=== PATIENT | male | born 1960 | race Caucasian/White ===

== ENCOUNTER → 2016-12-26 | Outpatient (CLI) | payer MEDICARE, MEDICAID ==
[~2016-12-26] MED LIST: ADV500-14 IH; ALBU0.632 IH; ALBU0.8322 IH; ALBU17AE3 IH; ALBU8.5H2 IH; ASPI-587 PO; ASPI-875 PO; ATOR80TA PO; BUDE10.2 IH; BUTA1TAB44 PO; CEFU500T5 PO; CLPD75T PO; DOXY-13 PO; FLUT1DIS26 IH; HCT25T PO; IBP800T PO; METO100T6 PO; METO25TA PO; OMEG1CAP51 PO; OMEP20CA12 PO; OMEP20TA2 PO; PANT40TA2 PO; PHEN100C11 PO; PHEN200C3 PO; PHN100C PO; PRD20T PO; PRV20T PO; RT-ALBUTEROL SULF 2.5 MG/3 ML PRE-MIX VIAL INH ONE; TIOT18CA IH; TOPI50CA5 PO; VARE1TAB17 PO
--- NOTE | 2016-12-26 16:53 | Diagnostic Imaging Report ---
INDICATION: Dyspnea, tobacco dependence. COMPARISON STUDY: Chest from 2014. FINDINGS: Frontal and lateral views of the chest demonstrate the lungs to be clear. The heart, mediastinum, pulmonary vascularity, and visualized bony thorax are normal. IMPRESSION: Negative chest. Dictated by: Dictated on workstation # [id number]
== END ==
LOC: RT 15:18
PROVIDERS: ATTEND Nurse Practitioner Family
DX: J44.9 Chronic obstructive pulmonary disease, unspecified (principal); R06.00 Dyspnea, unspecified; F17.200 Nicotine dependence, unspecified, uncomplicated
CPT/HCPCS: 71020; 94060; 94640; 94726; 94729

== ENCOUNTER 2017-03-31 12:08 | Emergency (ER) | payer MEDICARE, MEDICAID ==
[~2017-03-31] VITALS: Ht 182.9 cm; Wt 127.0 kg
[~2017-03-31 12:08] MED LIST changes: -RT-ALBUTEROL SULF 2.5 MG/3 ML PRE-MIX VIAL INH ONE
--- NOTE | 2017-03-31 12:28 | ED Lower Extremity ---
General Chief Complaint: Lower Extremity Stated Complaint: R KNEE PAIN Source: patient Exam Limitations: no limitations History of Present Illness Time seen by provider: 12:25 Initial Comments To ER with right knee pain for the past 6 months worse today. He saw [facility] on Monday and received a steroid injection into the right knee. He states that this morning he was feeling much better and was in [place] able to walk around. Suddenly, his knee felt as if he was going to give out on him and caused him intense pain. He denies any appearance of swelling or sensation of swelling. No fevers or chills and no warmth to the knee. Pain is to the lateral aspect of the knee Onset: just prior to arrival Severity: moderate Pain/Injury Location: right knee Modifying Factors: Worse With Movement Allergies and Home Medications Allergies Coded Allergies: diclofenac (Verified Allergy, Unknown, SWELLING, 10/14/15) Home Medications Aspirin 81 Mg Tablet.dr, 81 MG PO DAILY, (Reported) Atorvastatin Calcium 80 Mg Tablet, 80 MG PO HS, (Reported) Budesonide/Formoterol Fumarate 10.2 Gm Hfa.aer.ad, 2 PUFF IH BID, (Reported) Hydrochlorothiazide 25 Mg Tab, 25 MG PO DAILY, (Reported) Metoprolol Succinate 100 Mg Tab.er.24h, 100 MG PO DAILY, (Reported) Pantoprazole Sodium 40 Mg Tablet.dr, 40 MG PO DAILY, (Reported) Phenytoin Sodium Extended 100 Mg Capsule, 200 MG PO BID, (Reported) TAKE 2 (100MG) TABS Tiotropium Lynd 1 Inh Aerp, 1 CAP IH DAILY @1200, (Reported) Topiramate 50 Mg Cap.spr.24, 50 MG PO BID, (Reported) Constitutional: see HPI EENTM: see HPI Respiratory: no symptoms reported Cardiovascular: no symptoms reported Genitourinary: no symptoms reported Musculoskeletal: see HPI Skin: no symptoms reported Psychiatric/Neurological: No Symptoms Reported Past Gmfmvzm-Znackg-Czupen Hx Patient Social History Recent Foreign Travel: No Contact w/Someone Who Travel: No Immunizations Up To Date Tetanus Booster (TDap): Less than 5yrs Date of Pneumonia Vaccine: Jul 30, 2015 Date of Influenza Vaccine: Jul 30, 2015 Surgeries HX Surgeries: Yes (Carpal Tunnel bilat, Left foot toe surgery, LOOP RECORDER PLACED, ) Respiratory Hx Respiratory Disorders: Yes (COPD, SLEEP APNEA, BIPAP) Respiratory Disorders: Sleep Apnea, COPD Cardiovascular Hx Cardiac Disorders: Yes Neurological Hx Neurological Disorders: Yes (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) Reproductive System Hx Reproductive Disorders: No Genitourinary Hx Genitourinary Disorders: No Gastrointestinal Hx Gastrointestinal Disorders: No Musculoskeletal Hx Musculoskeletal Disorders: Yes Musculoskeletal Disorders: Chronic Back Pain Endocrine Hx Endocrine Disorders: No HEENT HX ENT Disorders: No (begining of cataracts, ) Cancer Hx Cancer: No Psychosocial Hx Psychiatric Problems: No Integumentary HX Skin/Integumentary Disorder: No Blood Transfusions Hx Blood Disorders: No Family Medical History Significant Family History: No Pertinent Family Hx Family Medial History: Cardiovascular disease Physical Exam Vital Signs Vital Sign - Last 12Hours 03/31/17 12:20 Temp 97.9 Pulse 68 Resp 16 B/P (MAP) 109/75 Pulse Ox 97 Capillary Refill : Less Than 3 Seconds General Appearance: WD/WN, no apparent distress HEENT: PERRL/EOMI, normal ENT inspection Neck: non-tender, full range of motion Respiratory: no respiratory distress Gastrointestinal: normal bowel sounds, non tender, soft Hips: bilateral hip non-tender, bilateral hip normal inspection, bilateral hip normal range of motion Legs: bilateral leg non-tender, bilateral leg normal inspection, bilateral leg normal range of motion Knees: right knee pain, right knee other (there is no palpable effusion, no ecchymosis or erythema or warmth to the knee.) Ankles: bilateral ankle non-tender, bilateral ankle normal inspection, bilateral ankle normal range of motion Feet: bilateral foot non-tender, bilateral foot normal inspection, bilateral foot normal range of motion Neurologic/Psychiatric: alert, normal mood/affect, oriented x 3 Skin: normal color, warm/dry Progress/Results/Core Measures Results/Orders My Orders Orders - ROMA STRICKLAND APRN Knee, Right, 3 Views (03/31/17 12:22) Hydrocodone/Apap 5/325 Tablet (Lortab 5 (03/31/17 12:30) Immobilizer Knee St 24 In (03/31/17 12:42) Vital Signs/I&O Vital Sign - Last 12Hours 03/31/17 12:20 Temp 97.9 Pulse 68 Resp 16 B/P (MAP) 109/75 Pulse Ox 97 Progress Note : Progress Note 1227-despite his recent knee injection, his description of sudden onset pain today while walking and feeling of needing going to given the absence of fevers chills or swelling does not support an infectious cause of his knee pain Diagnostic Imaging Comments NAME: [facility] REC#: [id number] PT STATUS: REG ER : 1960 PHYSICIAN: ROMA STRICKLAND APRN ADMIT DATE: 03/31/17/ER Draft Date of Exam:03/31/17 KNEE, RIGHT, 3 VIEWS EXAMINATION: 3 views of the right knee. INDICATION: Right knee pain. Findings: No fracture, dislocation or radiopaque foreign body. There is fullness in the suprapatellar pouch likely related to an effusion. There is sparing of the upper tendons near the insertion of the quadriceps tendon. No significant osteophyte formation or joint narrowing. IMPRESSION: Question of suprapatellar effusion. No fracture seen. Dictated on workstation # [id number] Dict: 03/31/17 1235 Trans: 03/31/17 1246 [facility] [id number] Interpreted by: BRIDGET VERNON MD Electronically signed by: Departure Impression Impression: Primary Impression: Arthritis of knee Disposition: 01 HOME, SELF-CARE Condition: Stable Departure-Patient Inst. Decision time for Depature: 12:49 Referrals: BRANDEN BORJA DO (PCP) Primary Care Physician RENETTA CARDOZA (Family) Primary Care Physician Patient Instructions: Chronic Knee Pain Add. Discharge Instructions: 1. Return to ER for any concerns such as increased pain, swelling, redness, or fevers. 2. Follow up with one of the orthopedic surgeons 3. Wear the brace when youre up moving around All discharge instructions reviewed with patient and/or family. Voiced understanding. Scripts Hydrocodone/Acetaminophen ([place] 5-325 Tablet) 1 Each Tablet 1 EACH PO Q4H Y for PAIN-MODERATE, #10 TAB Prov: ROMA STRICKLAND APRN 03/31/17 ROMA STRICKLAND APRN Mar 31, 2017 12:28
--- NOTE | 2017-03-31 12:46 | Diagnostic Imaging Report ---
EXAMINATION: 3 views of the right knee. INDICATION: Right knee pain. Findings: No fracture, dislocation or radiopaque foreign body. There is fullness in the suprapatellar pouch likely related to an effusion. There is sparing of the upper tendons near the insertion of the quadriceps tendon. No significant osteophyte formation or joint narrowing. IMPRESSION: Question of suprapatellar effusion. No fracture seen. Dictated by: Dictated on workstation # [id number]
[2017-03-31] MEDS ORDERED: HYDR-757 PO (12:52)
[2017-03-31 12:53] VITALS: BP 109/75
[2017-03-31] MEDS: HYDROcodone/APAP 5 MG/325 MG (LORTAB) TAB PO ONE (12:54)
== END 2017-03-31 12:53 | disposition home or self-care (01) ==
LOC: EDUNIT# 12:08 → ER 12:10
DX: M17.11 Unilateral primary osteoarthritis, right knee (principal); J44.9 Chronic obstructive pulmonary disease, unspecified; Z79.82 Long term (current) use of aspirin; Z79.899 Other long term (current) drug therapy
CPT/HCPCS: 73562; 99285

== ENCOUNTER → 2017-04-10 | Outpatient (CLI) | payer MEDICARE, MEDICAID ==
[~2017-04-10] MED LIST changes: +HYDR-757 PO
--- NOTE | 2017-04-13 09:22 | Diagnostic Imaging Report ---
PROCEDURE: MRI right joint lower extremity without contrast. TECHNIQUE: Multiplanar, multisequence non contrast-enhanced MRI of the right lower extremity was accomplished. INDICATION: Right knee pain. FINDINGS: There is a tiny suprapatellar effusion. The extensor mechanism is intact. The ACL and the PCL are intact. There is an oblique tear involving the posterior horn of the medial meniscus extending to the posterior root. The body and anterior horn of the medial meniscus appears intact. The lateral meniscus demonstrates an oblique tear in the body segment extending to the undersurface of the meniscus. The MCL and the lateral collateral ligament complex appear intact. No significant bone marrow signal abnormality. The articular cartilage demonstrates no focal defects or significant thinning. IMPRESSION: 1. Tears in the posterior horn and posterior root of the medial meniscus. 2. Nondisplaced focal oblique tear in the body of the lateral meniscus. Dictated by: Dictated on workstation # [id number]
== END ==
LOC: RAD 10:40
PROVIDERS: ATTEND Nurse Practitioner Community Health
DX: M25.561 Pain in right knee (principal)
CPT/HCPCS: 73721

== ENCOUNTER → 2017-05-25 | Outpatient (CLI) | payer MEDICARE, MEDICAID ==
[~2017-05-25] MED LIST changes: +CATHETER FLUSH 10 ML SYR IV PRN; +REGADENOSON 0.4 MG/5 ML SYR (LEXISCAN) IV ONE
[2017-05-25 09:14] VITALS: BP 153/73
== END ==
LOC: CARD 07:18
PROVIDERS: ATTEND Internal Medicine Cardiovascular Disease
DX: I25.10 Atherosclerotic heart disease of native coronary artery without angina pectoris (principal); I65.23 Occlusion and stenosis of bilateral carotid arteries; E78.5 Hyperlipidemia, unspecified; R06.02 Shortness of breath
CPT/HCPCS: 78452; 93017

== ENCOUNTER 2017-06-15 09:12 | Outpatient (CLI) | payer MEDICARE, MEDICAID ==
[~2017-06-15] VITALS: Ht 182.9 cm; Wt 128.5 kg
[~2017-06-15 09:12] MED LIST changes: -CATHETER FLUSH 10 ML SYR IV PRN; -REGADENOSON 0.4 MG/5 ML SYR (LEXISCAN) IV ONE
[2017-06-15] MEDS ORDERED: OMEP20CA12 PO (09:27)
[2017-06-15] MEDS ORDERED: RT-ALBUINH IH (09:27)
[2017-06-15] MEDS ORDERED: NAPR500T PO (09:27)
[2017-06-15] MEDS ORDERED: UMEC62.5 IH (09:27)
[2017-06-15 09:36] VITALS: BP 149/73
== END 2017-06-15 10:14 | disposition home or self-care (01) ==
LOC: PREOP 09:12
PROVIDERS: ATTEND Orthopaedic Surgery
DX: Z01.818 Encounter for other preprocedural examination (principal); S83.281A Other tear of lateral meniscus, current injury, right knee, initial encounter; S83.241A Other tear of medial meniscus, current injury, right knee, initial encounter; X58.XXXA Exposure to other specified factors, initial encounter; Y99.8 Other external cause status
CPT/HCPCS: 87081

== ENCOUNTER 2017-06-21 06:05 | Day surgery (SDC) | payer MEDICARE, MEDICAID ==
--- NOTE | 2017-06-12 17:10 | HISTORY AND PHYSICAL ---
DATE OF SERVICE: REASON FOR ADMISSION: Outpatient surgery on 06/21/2017 for right knee arthroscopy. HISTORY OF PRESENT ILLNESS: The patient is a 56-year-old gentleman with complaints of progressive worsening right knee pain and functional impairment. He underwent an MRI, which revealed medial and lateral meniscal tears. He has undergone treatment with injections without relief. He reports pain medially and laterally in his knee as well as posteriorly. He denies any specific injuries, but has been very active throughout his life. Due to functional impairment and failure to improve with conservative measures, the patient has elected to proceed with surgical intervention. REVIEW OF SYSTEMS: No chest pain. No shortness of breath. No dysuria. PAST MEDICAL HISTORY: Coronary artery disease, hyperlipidemia, sleep apnea, COPD, edema, hypertension, seizures, and tobacco use. PAST SURGICAL HISTORY: Cardiac catheterization, implantation of patient's activated cardiac vent recorder, recorder removal, carpal tunnel release, left foot second toe. FAMILY HISTORY: Hypertension, cardiovascular disease, and diabetes. PRIMARY CARE PROVIDER: MEDICATIONS: Aspirin, Proair, Spiriva, Toprol, hydrochlorothiazide, omeprazole, phenytoin, topiramate, doxycycline, umeclidinium, Naprosyn, Protonix, and Viagra. ALLERGIES: DICLOFENAC. SOCIAL HISTORY: The patient smokes one pack a day and denies alcohol use. PHYSICAL EXAMINATION: GENERAL: The patient is a well developed, well nourished, in no acute distress. HEENT: Normocephalic, atraumatic. Pupils are equal, round, and reactive to light. Oropharynx is clear. NECK: Supple. No lymphadenopathy. LUNGS: Clear to auscultation bilaterally. HEART: Regular rate and rhythm. ABDOMEN: Soft, nontender, and nondistended. EXTREMITIES: The right knee demonstrates tenderness along his medial and lateral joint line. He has pain medially and laterally with Mare's maneuver. No varus or valgus laxity. Negative anterior and posterior drawer. He has a moderate effusion. Range of motion is 0/0/135. The patient ambulates with an antalgic gait. IMPRESSION: Right knee medial and lateral meniscal tears. PLAN: Right knee arthroscopy with partial meniscectomy. The risks, benefits, options, ramifications, and recovery were discussed at length with the patient. He understands and wishes to proceed. Job ID: [id number] DocumentID: [id number] Dictated Date: 06/12/2017 15:09:10 Torch Operator Date: 06/12/2017 17:00:38 Dictated By: LEYLA TORRES MD
[~2017-06-21] VITALS: Ht 182.9 cm; Wt 128.5 kg
[~2017-06-21 06:05] MED LIST changes: +NAPR500T PO; +RT-ALBUINH IH; +UMEC62.5 IH
--- OUTSIDE RECORDS SUMMARY | 2017-06-21 06:14 | XMS REPORT ---
Author Author RENETTA CARDOZA Organization [facility] Address [address] [place] [address] Care Team Providers Care Log Rafter Name Role Phone RENETTA CARDOZA Unavailable PROBLEMS Type Condition ICD9-CM Code AFM55-ZZ Code Onset Dates Condition Status SNOMED Code Problem Tobacco abuse Z72.0 Active 90944224 Problem Morbid obesity due to excess calories E66.01 Active 456572728 Problem Palpitations R00.2 Active 89355080 Problem LAURY (obstructive sleep apnea) G47.33 Active 77851651 Problem Hypertension, benign I10 Active 78253401 Problem COPD exacerbation J44.1 Active 135756560 Problem Non morbid obesity due to excess calories E66.09 Active 368365583 Problem Coronary artery disease involving [place] heart, angina presence unspecified, unspecified vessel or lesion type I25.10 Active 77499326 Problem Edema, due to unspecified malnutrition type, unspecified type R60.9 Active 871349996 Problem Other chronic pain G89.29 Active 55054704 Problem Chronic obstructive pulmonary disease, unspecified COPD type J44.9 Active 68192134 ALLERGIES Unknown Allergies SOCIAL HISTORY No smoking Hx information available PLAN OF CARE VITAL SIGNS MEDICATIONS Medication Instructions Dosage Frequency Start Date End Date Duration Status Breo Ellipta 200-25 MCG/INH Inhalation Once a day 1 puff 24h Aug, Active RESULTS No Results PROCEDURES Procedure Date Ordered Related Diagnosis Body Site FLUARIX QUAD P-FREE 3 AND UP .50 2016 Sep 26, 2016 SINGLE IMMUNIZATION ADMIN Sep 26, 2016 IMMUNIZATIONS Vaccine Route Administration Date Status FLUARIX QUAD P-FREE 3 AND UP .50 2015 IM Intramuscular Sep 26, 2016 Administered
[2017-06-21] MEDS ORDERED: LACTATED RINGERS 1,000 ML IV PRN (06:28)
[2017-06-21] MEDS ORDERED: SEVOFLURANE (ULTANE) 15 ML INHAL SOLN ONE ×3 (06:31→07:45)
[2017-06-21] MEDS ORDERED: DEXAMETHASONE 10 MG/ML (DECADRON) 1 ML VIAL ONE (06:31)
[2017-06-21] MEDS ORDERED: LIDOCAINE PF 2% 5 ML (XYLOCAINE) VIAL ONE (06:31)
[2017-06-21] MEDS ORDERED: MIDAZOLAM 2 MG/2 ML (VERSED) VIAL ONE (06:31)
[2017-06-21] MEDS ORDERED: ONDANSETRON 4 MG/2 ML (SDV) Z0FRAN ONE (06:31)
[2017-06-21] MEDS ORDERED: proPOfol 200 MG/20 ML (DIPRIVAN) VIAL IV ONE (06:31)
[2017-06-21] MEDS ORDERED: fentaNYL INJECTION 100 MCG/2 ML AMP ONE (06:31)
[2017-06-21] MEDS ORDERED: NS (IVPB) 50 ML ONE (06:33)
[2017-06-21] MEDS ORDERED: ceFAZolin 1,000 MG (ANCEF) VIAL ONE (06:33)
[2017-06-21 06:54] VITALS: BP 165/85
[2017-06-21] MEDS ORDERED: morphine PF (DURAMORPH) 10 MG/10 ML AMP ONE (07:05)
[2017-06-21] MEDS ORDERED: BUPIVACAINE 0.25% 30 ML (SENSORCAINE) VIAL ONE (07:06)
[2017-06-21] MEDS ORDERED: ceFAZolin 1 GM/NS 50 ML IVPB IV ONE ×2 (07:15)
[2017-06-21] MEDS ORDERED: HYDROcodone/APAP 7.5 MG/325 MG (LORTAB, LORCET PLUS) TABLET PO PRN (07:30)
--- NOTE | 2017-06-21 07:31 | Progress Note-Pre Operative ---
Pre-Operative Progress Note H&P Reviewed The H&P was reviewed, patient examined and no changes noted. 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
--- NOTE | 2017-06-21 07:32 | Progress Note-Post Operative ---
Post-Operative Progess Note Surgeon (s)/Fabric Machine Operator (s) Surgeon LEYLA TORRES MD Fabric Machine Operator: Ovi Mcfarlane Pre-Operative Diagnosis right knee medial and lateral meniscus tears and chondromalacia Post-Operative Diagnosis right knee medial and lateral meniscus tears and chondromalacia of the patella, trochea and lateral femoral condyle Procedure & Operative Findings Date of Procedure 06/21/17 Procedure Performed/Findings right knee arthroscopic partial medial and lateral meniscectomies and chondroplasty of the patella, trochlea and lateral femoral condyle Anesthesia Type GETA Estimated Blood Loss Estimated blood loss (mL): minimal Specimens/Packing Specimens Removed none Packing: none LEYLA TORRES MD Jun 21, 2017 07:32
[2017-06-21] MEDS ORDERED: morphine INJ 10 MG/ML 1ML (SYR OR VIAL) IVP PRN (08:30)
[2017-06-21] MEDS ORDERED: ONDANSETRON 4 MG/2 ML (SDV) Z0FRAN IVP PRN (08:30)
[2017-06-21 09:05] VITALS: BP 129/75
[2017-06-21 09:35] VITALS: BP 125/76
[2017-06-21] MEDS ORDERED: HYDR-3816 PO (09:37)
[2017-06-21 10:05] VITALS: BP 141/80
--- NOTE | 2017-06-21 10:10 | Physical Therapy Ortho Eval ---
PT Orthopedic Evaluation Type of Surgery Knee Scope right side WBAT Prior Level of Function Current Living Status: Significant Other Locomotion (Upon Admit): Independent Established Durable Medical Eq: Crutches Subjective Subjective Pt was lying in bed prior to tx. Pt reports no pain and highly motivated. Pt was lying in bed with call light, all needs in reach, family in room post tx. Entry Into Home: Stairs With Railing Steps Into Home: 3 Steps Accessories: Railing Present Motor Control Motor Control: Motor Control WNL ROM ROM: WFL, except focal deficit Pt right knee extension 5 degrees from full knee extension, flexion 100 degrees. Strength NT due to recent surgery Transfer Transfers (B, C, W/C) (FIM): 5 Gait Gait Assistive Device: None Weight Bearing Restriction: Weight Bearing/Tolerated Location Restriction: R LE Gait (FIM): 5 Distance (FIM): 3=150 ft Distance: 150' Gait Level of Assist: 5 Summary/Comments Pt ambulates 150' with SBA for safety. Treatment Rendered Treatment: Therapeutic Exercises, Gait Train, Step Train, Reviewed Precautions , Use of Ice Exercise Instruction: Quad Sets, Heel Slides, Ankle Pumps PT reviewed home exercise program with ankle pumps, quad sets, and ankle pumps to be completed 20x, multiple times a day. Pt ambulates with no assistive device and completes step with SBA. Assessment/Goals Goal Time Frame: 1 Visit Understands HEP: Yes Safe Ambulation: Yes Plan Treatment Plan: Discharge PT/Family Agrees to Plan: Yes Time Time In: 945 Time Out: 1000 Total Billed Treatment Time: 15 Billed Treatment Time 1 visit EVL 15 min Yes PT/OT Therapy GCodes Therapy Functional Limitation: Physical Therapy Test(s)/Tool used to determine: Level of Assistance Scale Functional Limitation-Current Charge Code: MOBCUR Modifier: CI Functional Limitation-Goal Charge Code: MOBGOAL Modifier: CI Functional Limitation-D/C Charge Codes: MOBDC Modifier: CI LORENA MERLOS PT Jun 21, 2017 10:10
--- NOTE | 2017-06-21 15:13 | OPERATIVE REPORT ---
DATE OF SERVICE: 06/21/2017 PREOPERATIVE DIAGNOSES: 1. Right knee medial meniscal tear. 2. Right knee lateral meniscal tear. 3. Right knee chondromalacia of the patella. POSTOPERATIVE DIAGNOSES: 1. Right knee medial meniscal tear. 2. Right knee lateral meniscal tear. 3. Right knee chondromalacia of the patella. 4. Right knee chondromalacia of the trochlea. 5. Right knee chondromalacia of the lateral femoral condyle. PROCEDURES: 1. Right knee arthroscopic partial medial meniscectomy. 2. Right knee arthroscopic partial lateral meniscectomy. 3. Right knee arthroscopic chondroplasty of the patella. 4. Right knee arthroscopic chondroplasty of the trochlea. 5. Right knee arthroscopic chondroplasty of the lateral femoral condyle. SURGEON: Flo Torres MD. TAX ECONOMIST: Ovi Mcfarlane, who assisted throughout the procedure and closed the incisions. ANESTHESIA: General endotracheal by Rocael Miranda CRNA. TOURNIQUET TIME: Not applicable. ESTIMATED BLOOD LOSS: Minimal. DRAINS: None. COMPLICATIONS: None. POSTOPERATIVE PLAN: Routine arthroscopy protocol. The patient was transported to the recovery room awake and in stable condition. STATEMENT OF ORAL CONSENT: The patient is a 56-year-old active gentleman with complaints of right medial and lateral knee pain. He complained of pain with cutting and pivoting activities as well as activities of daily living. He had pain medially and laterally with Mare's and due to functional impairment and failure to improve with conservative measures, the patient elected to proceed with surgical intervention. Examination under anesthesia revealed range of motion of 0/2/135. Negative Stephen. Negative anterior and posterior drawer. No varus or valgus laxity and negative pivot shift. ARTHROSCOPIC FINDINGS: The patella demonstrated grade 2 chondral flaps inferiorly in an 8 x 8 area. The trochlea demonstrated grade 2 chondral flap superiorly in a 10 x 10 area. The medial and lateral gutters were clear. There were multiple small loose cartilaginous bodies throughout the medial compartment. There was a tear at the 12 o'clock position over the posterior horn of the medial meniscus involving approximately 20% of the posterior horn. There was chondral softening throughout the medial compartment with no unstable chondral flaps. ACL and PCL were intact. The lateral compartment demonstrated a tear of the posterior horn of the meniscus involving approximately one-third of the posterior horn. In addition, there were grade 2 chondral flaps anterior centrally on the femoral condyle in a 10 x 10 area. PROCEDURE IN DETAIL: After risks and benefits of procedure were discussed and questions were answered, an informed consent was signed and placed on the chart. The operative site was confirmed in the preoperative holding area and initiated by the surgeon. The patient was then transported to the operating room. After adequate levels of general endotracheal anesthetic were obtained, a timeout was called confirming the operative site. An examination under anesthesia was performed with the above findings noted. The right lower extremity was then prepped and draped in the usual sterile fashion. The knee joint was injected with 60 mL of fluid and a standard inferolateral portal was placed. Under direct visualization anteromedial portal was created. The menisci and cruciates were carefully probed with the above findings noted. The unstable chondral flaps on the patella and trochlea were debrided with a shaver back to a stable edge. The scope was then redirected into the lateral compartment where the unstable chondral flaps on lateral femoral condyle were debrided with a shaver back to a stable edge, and lateral meniscus was debrided with a biter and shaver, removing approximately one-third of the posterior horn. This was carefully probed with no further tearing or instability noted. The scope was then redirected into the medial compartment where the unstable posterior horn on the medial meniscus was debrided with a biter and shaver, removing approximately 20% of the posterior horn. This was carefully probed with no further tearing or instability noted. The knee was copiously irrigated and the portal sites were closed with 3-0 nylon in subcuticular fashion. The knee was injected with Duramorph. The portal sites were infiltrated with plain Marcaine. A soft dressing was applied and the patient was transferred to the recovery room awake and in stable condition. Job ID: [id number] DocumentID: [id number] Dictated Date: 06/21/2017 08:27:18 Photographs Curator Date: 06/21/2017 10:55:36 Dictated By: FLO TORRES MD
[2017-08-27] MEDS ORDERED: PRD20T PO (12:56)
[2017-08-27] MEDS ORDERED: RT-ALBUINH IH (12:56)
== END 2017-06-21 10:17 | disposition home or self-care (01) ==
LOC: SDC 06:05
PROVIDERS: ATTEND Orthopaedic Surgery
DX: M23.8X1 Other internal derangements of right knee (principal); M22.41 Chondromalacia patellae, right knee; I10 Essential (primary) hypertension; I25.10 Atherosclerotic heart disease of native coronary artery without angina pectoris; E78.5 Hyperlipidemia, unspecified; J44.9 Chronic obstructive pulmonary disease, unspecified; G40.909 Epilepsy, unspecified, not intractable, without status epilepticus; K21.9 Gastro-esophageal reflux disease without esophagitis; F41.9 Anxiety disorder, unspecified; G47.33 Obstructive sleep apnea (adult) (pediatric); F17.210 Nicotine dependence, cigarettes, uncomplicated
CPT/HCPCS: 36415; 80185

== ENCOUNTER 2017-08-07 11:39 | Outpatient (CLI) | payer MEDICARE, MEDICAID ==
[~2017-08-07] VITALS: Ht 182.9 cm; Wt 124.4 kg
[~2017-08-07 11:39] MED LIST changes: +HYDR-3816 PO
[2017-08-07] MEDS ORDERED: ATOR80TA76 PO (11:54)
[2017-08-07] MEDS ORDERED: PHEN-483 PO (11:54)
[2017-08-07] MEDS ORDERED: HYDR25TA4 PO (11:54)
[2017-08-07] MEDS ORDERED: ASPI-999 PO (11:54)
[2017-08-07 11:55] VITALS: BP 135/75
== END 2017-08-07 13:02 ==
LOC: PREOP 11:39
PROVIDERS: ATTEND Orthopaedic Surgery
DX: Z01.818 Encounter for other preprocedural examination (principal); M23.204 Derangement of unspecified medial meniscus due to old tear or injury, left knee; M22.42 Chondromalacia patellae, left knee
CPT/HCPCS: 87081

== ENCOUNTER 2017-08-09 08:55 | Day surgery (SDC) | payer MEDICARE, MEDICAID ==
--- NOTE | 2017-08-06 09:26 | HISTORY AND PHYSICAL ---
DATE OF SERVICE: 08/09/2017 DATE OF ADMISSION: 08/09/2017 PROCEDURE: Outpatient left knee arthroscopy. HISTORY: The patient is a 56-year-old gentleman with complaints of progressive worsening left anterior and medial knee pain. He reports catching, locking and swelling. He reports functional impairment because of the knee. He denies paresthesias. He has tried activity modification and use of antiinflammatories without relief and due to functional impairment, the patient has elected to proceed with surgical intervention. REVIEW OF SYSTEMS: No chest pain, no shortness of breath, no dysuria. PAST MEDICAL HISTORY: Coronary artery disease, hyperlipidemia, sleep apnea, COPD, edema, hypertension, seizures and tobacco use. PAST SURGICAL HISTORY: Cardiac catheterization, carpal tunnel release, left foot 2nd toe and right knee arthroscopy. FAMILY HISTORY: Significant for hypertension, cardiovascular disease and diabetes. MEDICATIONS: Aspirin, Pro-air, Spiriva, Toprol, hydrochlorothiazide, omeprazole, phenytoin, topiramate, doxycycline, Naprosyn, Protonix and Viagra. ALLERGIES: DICLOFENAC. SOCIAL HISTORY: The patient smokes a pack of cigarettes a day. Denies alcohol use. PHYSICAL EXAM: GENERAL: The patient is well-developed, well-nourished, in no acute distress. HEENT: Normocephalic, atraumatic. Pupils are equal, round and reactive to light. Oropharynx is clear. NECK: Supple. No lymphadenopathy. LUNGS: Clear to auscultation bilaterally. HEART: Regular rate and rhythm. ABDOMEN: Soft, nontender, nondistended. EXTREMITIES: The left knee demonstrates a moderate effusion. He is tender along his medial joint line and has patellofemoral crepitus and pain with patellar loading. Range of motion is 0/0/130. No varus valgus laxity. Negative anterior and posterior draw. The patient ambulates with an antalgic gait. IMPRESSION: Left knee medial meniscal tear with chondromalacia. PLAN: Left knee arthroscopy with partial meniscectomy and chondroplasty. The risks, benefits, alternative and ramifications of recovery were discussed at length with the patient. He understands and wishes to proceed. Job ID: [id number] DocumentID: [id number] Dictated Date: 08/03/2017 10:32:54 Harvest Worker Field Crop Date: 08/03/2017 11:31:52 Dictated By: LEYLA TORRES MD
[~2017-08-09] VITALS: Ht 182.9 cm; Wt 124.4 kg
[~2017-08-09 08:55] MED LIST changes: +ASPI-999 PO; +ATOR80TA76 PO; +HYDR25TA4 PO; +PHEN-483 PO
[2017-08-09] MEDS ORDERED: ceFAZolin 1,000 MG (ANCEF) VIAL ONE (08:56)
[2017-08-09] MEDS ORDERED: NS (IVPB) 50 ML ONE (08:56)
--- OUTSIDE RECORDS SUMMARY | 2017-08-09 08:59 | XMS REPORT ---
Author Author RENETTA CARDOZA [facility] Address [address] [place] [address] Care Team Providers Care Take Up Supervisor Name Role Phone RENETTA CARDOZA Unavailable PROBLEMS Type Condition ICD9-CM Code [id number] Code Onset Dates Condition Status SNOMED Code Problem Hypertension, benign I10 Active 62647101 Problem Tobacco abuse Z72.0 Active 80383609 Problem Morbid obesity due to excess calories E66.01 Active 066533997 Problem Chronic obstructive pulmonary disease, unspecified COPD type J44.9 Active 67107477 Problem LAURY (obstructive sleep apnea) G47.33 Active 04719141 Problem COPD exacerbation J44.1 Active 390560591 Problem Non morbid obesity due to excess calories E66.09 Active 300291461 Problem Coronary artery disease involving [place] heart, angina presence unspecified, unspecified vessel or lesion type I25.10 Active 68488357 Problem Edema, due to unspecified malnutrition type, unspecified type R60.9 Active 341720562 Problem Other chronic pain G89.29 Active 32279504 Problem Palpitations R00.2 Active 49086954 ALLERGIES Unknown Allergies SOCIAL HISTORY No smoking Hx information available PLAN OF CARE VITAL SIGNS MEDICATIONS Unknown Medications RESULTS Name Result Date Reference Range TSH 2016-11-23 TSH 3.050 0.450-4.500 CBC 2016-11-23 WBC 5.2 3.4-10.8 RBC 5.77 4.14-5.80 Hemoglobin 17.6 12.6-17.7 Hematocrit 52.6 37.5-51.0 MCV 91 79-97 MCH 30.5 26.6-33.0 MCHC 33.5 31.5-35.7 RDW 14.3 12.3-15.4 Platelets 198 150-379 Neutrophils 69 Lymphs 21 Monocytes 6 Eos 4 Basos 0 Neutrophils (Absolute) 3.6 1.4-7.0 Lymphs (Absolute) 1.1 0.7-3.1 Monocytes(Absolute) 0.3 0.1-0.9 Eos (Absolute) 0.2 0.0-0.4 Baso (Absolute) 0.0 0.0-0.2 Immature Granulocytes 0 Immature Grans (Abs) 0.0 0.0-0.1 CMP 2016-11-23 Glucose, Serum 137 65-99 BUN 14 6-24 Creatinine, Serum 0.90 0.76-1.27 eGFR If NonAfricn Am 96 >59 eGFR If Africn Am 112 >59 BUN/Creatinine Ratio 16 9-20 Sodium, Serum 137 134-144 Potassium, Serum 4.0 3.5-5.2 Chloride, Serum 93 96-106 Carbon Dioxide, Total 26 18-29 Calcium, Serum 9.2 8.7-10.2 Protein, Total, Serum 7.0 6.0-8.5 Albumin, Serum 3.9 3.5-5.5 Globulin, Total 3.1 1.5-4.5 A/G Ratio 1.3 1.1-2.5 Bilirubin, Total <0.2 0.0-1.2 Alkaline Phosphatase, S 149 39-117 AST (SGOT) 13 0-40 ALT (SGPT) 25 0-44 LIPID PANEL 2016-11-23 Cholesterol, Total 229 100-199 Triglycerides 799 0-149 HDL Cholesterol 26 >39 VLDL Cholesterol Roe 5-40 LDL Cholesterol Calc 0-99 PROCEDURES Procedure Date Ordered Related Diagnosis Body Site LAB [facility] Nov 23, 2016 VENIPUNCT, ROUTINE* Nov 23, 2016 IMMUNIZATIONS No Known Immunizations
--- OUTSIDE RECORDS SUMMARY | 2017-08-09 08:59 | XMS REPORT ---
Author Author RENETTA CARDOZA Organization [facility] Address [address] [place] [address] Care Team Providers Care Knurling Machine Operator Name Role Phone RENETTA CARDOZA Unavailable PROBLEMS Type Condition ICD9-CM Code EZZ80-[id number] Code Onset Dates Condition Status SNOMED Code Problem Hypertension, benign I10 Active 48240631 Problem Tobacco abuse Z72.0 Active 46893188 Problem Morbid obesity due to excess calories E66.01 Active 476938804 Problem Chronic obstructive pulmonary disease, unspecified COPD type J44.9 Active 24677555 Problem LAURY (obstructive sleep apnea) G47.33 Active 62806423 Problem COPD exacerbation J44.1 Active 460290387 Problem Non morbid obesity due to excess calories E66.09 Active 273748964 Problem Coronary artery disease involving [place] heart, angina presence unspecified, unspecified vessel or lesion type I25.10 Active 69987080 Problem Edema, due to unspecified malnutrition type, unspecified type R60.9 Active 224135129 Problem Other chronic pain G89.29 Active 48767326 Problem Palpitations R00.2 Active 60173466 ALLERGIES No Information SOCIAL HISTORY Never Assessed PLAN OF CARE VITAL SIGNS MEDICATIONS Unknown Medications RESULTS No Results PROCEDURES No Known procedures IMMUNIZATIONS No Known Immunizations MEDICAL (GENERAL) HISTORY Type Description Date Medical History COPD Medical History epilepsy Medical History cardiac problems Medical History sleep apnea; uses Bipap Surgical History heart cath x2 Surgical History loop recorder placed 2012 Surgical History b/l carpal tunnel surgery Surgical History orthopaedic surgery, 2nd toe on left foot surgically put back on Surgical History had loop recorder removed from chest 09/2015 Hospitalization History surgeries
--- OUTSIDE RECORDS SUMMARY | 2017-08-09 09:00 | XMS REPORT ---
Author Author RENETTA CARDOZA [facility] Address [address] [place] [address] Care Team Providers Care Schedule Manager Name Role Phone RENETTA CARDOZA Unavailable PROBLEMS Type Condition ICD9-CM Code [id number] Code Onset Dates Condition Status SNOMED Code Problem Hypertension, benign I10 Active 82611925 Problem Tobacco abuse Z72.0 Active 03108820 Problem Morbid obesity due to excess calories E66.01 Active 778025722 Problem Chronic obstructive pulmonary disease, unspecified COPD type J44.9 Active 02320262 Problem LAURY (obstructive sleep apnea) G47.33 Active 41405626 Problem COPD exacerbation J44.1 Active 945866264 Problem Non morbid obesity due to excess calories E66.09 Active 858575661 Problem Coronary artery disease involving [place] heart, angina presence unspecified, unspecified vessel or lesion type I25.10 Active 63606305 Problem Edema, due to unspecified malnutrition type, unspecified type R60.9 Active 629481112 Problem Other chronic pain G89.29 Active 92387675 Problem Palpitations R00.2 Active 32180890 ALLERGIES Unknown Allergies SOCIAL HISTORY No smoking Hx information available PLAN OF CARE VITAL SIGNS MEDICATIONS Unknown Medications RESULTS No Results PROCEDURES No Known procedures IMMUNIZATIONS No Known Immunizations
--- OUTSIDE RECORDS SUMMARY | 2017-08-09 09:00 | XMS REPORT ---
Author Author RAJI VARGAS Organization [facility] Address [address] [place] [address] Care Team Providers Care Contract Recruiter Name Role Phone RAJI VARGAS Unavailable PROBLEMS Type Condition ICD9-CM Code GDB26-BY Code Onset Dates Condition Status SNOMED Code Problem Hypertension, benign I10 Active 09879757 Problem Tobacco abuse Z72.0 Active 94619953 Problem Morbid obesity due to excess calories E66.01 Active 426269819 Problem Chronic obstructive pulmonary disease, unspecified COPD type J44.9 Active 85574768 Problem LAURY (obstructive sleep apnea) G47.33 Active 02669334 Problem COPD exacerbation J44.1 Active 284435143 Problem Non morbid obesity due to excess calories E66.09 Active 996803119 Problem Coronary artery disease involving [place] heart, angina presence unspecified, unspecified vessel or lesion type I25.10 Active 88475247 Problem Edema, due to unspecified malnutrition type, unspecified type R60.9 Active 062222521 Problem Other chronic pain G89.29 Active 26465411 Problem Palpitations R00.2 Active 95676938 ALLERGIES Substance Reaction Event Type Date Status Diclofenac Unknown Drug Allergy Nov, Active SOCIAL HISTORY Never Assessed PLAN OF CARE Activity Details Follow Up prn Reason: VITAL SIGNS Height 72 in 2016-12-05 Weight 284.0 lbs 2016-12-05 Temperature 97.4 degrees Fahrenheit 2016-12-05 Heart Rate 80 bpm 2016-12-05 Respiratory Rate 22 2016-12-05 BMI 38.51 kg/m2 2016-12-05 Blood pressure systolic 142 mmHg 2016-12-05 Blood pressure diastolic 86 mmHg 2016-12-05 MEDICATIONS Medication Instructions Dosage Frequency Start Date End Date Duration Status Aspirin 81 MG Orally Once a day take 1 tablet (81 mg) by oral route once daily 24h Aug, Active Viagra 100 MG Orally Once a day 1 tablet as needed 24h Oct, Active Toprol XL 100 MG TAKE ONE TABLET BY MOUTH ONCE DAILY 30 Active Azithromycin 250 MG Orally Once a day 2 tablets on the first day, then 1 tablet daily for 4 days 24h Nov, Nov, 5 day(s) Active PredniSONE 20 MG Orally Once a day 2 tablet 24h Nov, 11 Nov, 2016 5 days Active Hydrochlorothiazide 25 MG TAKE ONE TABLET BY MOUTH ONCE DAILY 90 Active Topamax 50 mg Orally Twice a day 1 tablet 12h Oct, 30 day(s) Active Protonix 40 MG Orally Once a day 1 tablet 24h 30 Active Phenytoin Sodium Extended 100 MG TAKE TWO CAPSULES BY MOUTH TWICE DAILY 30 Active Naprosyn 500 MG Orally 2 times a day, pc 1 Oct, Active Topiramate 100 MG Orally Twice a day 1 capsule 12h 30 Active RESULTS No Results PROCEDURES Procedure Date Ordered Result Body Site ALBUTEROL UNIT DOSE FORM INHALED 2016-12-05 N/A ALBUTEROL INHAL UNIT DOSE 1 MG Dec 05, 2016 [facility] VISIT ESTABLISHED PATIENT Dec 05, 2016 IMMUNIZATIONS No Known Immunizations MEDICAL (GENERAL) HISTORY [...]
--- OUTSIDE RECORDS SUMMARY | 2017-08-09 09:01 | XMS REPORT ---
Author Author RENETTA CARDOZA [facility] Address [address] [place] [address] Care Team Providers Care Social Science Teacher Name Role Phone RENETTA CARDOZA Unavailable PROBLEMS Type Condition ICD9-CM Code ZGO29-JS Code Onset Dates Condition Status SNOMED Code Problem Hypertension, benign I10 Active 42703980 Problem Tobacco abuse Z72.0 Active 55652966 Problem Morbid obesity due to excess calories E66.01 Active 358612569 Problem Chronic obstructive pulmonary disease, unspecified COPD type J44.9 Active 14909334 Problem LAURY (obstructive sleep apnea) G47.33 Active 08455905 Problem COPD exacerbation J44.1 Active 326959799 Problem Non morbid obesity due to excess calories E66.09 Active 299415696 Problem Coronary artery disease involving [place] heart, angina presence unspecified, unspecified vessel or lesion type I25.10 Active 71004420 Problem Edema, due to unspecified malnutrition type, unspecified type R60.9 Active 740017660 Problem Other chronic pain G89.29 Active 58745557 Problem Palpitations R00.2 Active 60155018 ALLERGIES Substance Reaction Event Type Date Status Diclofenac Unknown Drug Allergy Oct, Active SOCIAL HISTORY No smoking Hx information available PLAN OF CARE VITAL SIGNS Height 72 in 2016-11-18 Weight 283.3 lbs 2016-11-18 Temperature 97.9 degrees Fahrenheit 2016-11-18 Heart Rate 86 bpm 2016-11-18 Respiratory Rate 24 2016-11-18 BMI 38.42 kg/m2 2016-11-18 Blood pressure systolic 162 mmHg 2016-11-18 Blood pressure diastolic 86 mmHg 2016-11-18 MEDICATIONS Medication Instructions Dosage Frequency Start Date End Date Duration Status Phenytoin Sodium Extended 100 MG TAKE TWO CAPSULES BY MOUTH TWICE DAILY 30 Active Toprol XL 100 MG TAKE ONE TABLET BY MOUTH ONCE DAILY 30 Active Aspirin 81 MG Orally Once a day take 1 tablet (81 mg) by oral route once daily 24h Aug, Active Viagra 100 MG Orally Once a day 1 tablet as needed 24h 27 Иван, 2016 Active Hydrochlorothiazide 25 MG TAKE ONE TABLET BY MOUTH ONCE DAILY 90 Active Topiramate 100 MG Orally Twice a day 1 capsule 12h 30 Active Naprosyn 500 MG Orally 2 times a day, pc 1 Oct, Active Protonix 40 MG Orally Once a day 1 tablet 24h 30 Active RESULTS No Results PROCEDURES Procedure Date Ordered Related Diagnosis Body Site JOINT INJECTION-LARGE JOINT 2016-11-18 N/A [facility] VISIT ESTABLISHED PATIENT Nov 18, 2016 DRAIN/INJECT, JOINT/BURSA Nov 18, 2016 Office Visit, Est Pt., Level 3 Nov 18, 2016 IMMUNIZATIONS No Known Immunizations
--- OUTSIDE RECORDS SUMMARY | 2017-08-09 09:01 | XMS REPORT ---
Author Author JENNA LOVING [facility] Address [address] [place] [address] Care Team Providers Care Repair Department Manager Name Role Phone JENNA LOVING Unavailable PROBLEMS Type Condition ICD9-CM Code BPO96-FY Code Onset Dates Condition Status SNOMED Code Problem Hypertension, benign I10 Active 04478975 Problem Tobacco abuse Z72.0 Active 79612756 Problem Morbid obesity due to excess calories E66.01 Active 301813888 Problem Chronic obstructive pulmonary disease, unspecified COPD type J44.9 Active 03035227 Problem LAURY (obstructive sleep apnea) G47.33 Active 14291294 Problem COPD exacerbation J44.1 Active 696544749 Problem Non morbid obesity due to excess calories E66.09 Active 135288084 Problem Coronary artery disease involving [place] heart, angina presence unspecified, unspecified vessel or lesion type I25.10 Active 58161448 Problem Edema, due to unspecified malnutrition type, unspecified type R60.9 Active 270425734 Problem Other chronic pain G89.29 Active 33757430 Problem Palpitations R00.2 Active 92012722 ALLERGIES Substance Reaction Event Type Date Status Diclofenac Unknown Drug Allergy Oct, Active SOCIAL HISTORY No smoking Hx information available PLAN OF CARE Activity Details Follow Up 3-4 wk for Ben Reason: VITAL SIGNS Height 72 in 2016-11-01 Weight 284.5 lbs 2016-11-01 Temperature 98.1 degrees Fahrenheit 2016-11-01 Heart Rate 88 bpm 2016-11-01 Respiratory Rate 22 2016-11-01 BMI 38.58 kg/m2 2016-11-01 Blood pressure systolic 150 mmHg 2016-11-01 Blood pressure diastolic 81 mmHg 2016-11-01 MEDICATIONS Medication Instructions Dosage Frequency Start Date End Date Duration Status Topiramate 100 MG Orally Twice a day 1 capsule 12h 30 Active Phenytoin Sodium 100 MG orally 2 times a day 2 capsule by Oral route 2 times per day 12h 30 Active Viagra 100 MG Orally Once a day 1 tablet as needed 24h 27 Иван, 2016 Active Breo Ellipta 200-25 MCG/INH Inhalation Once a day 1 puff 24h Aug, Active Glucometer Blood Glucose as directed Apr, Active Toprol XL 100 MG TAKE ONE TABLET BY MOUTH ONCE DAILY 30 Active Phenytoin Sodium Extended 100 MG TAKE TWO CAPSULES BY MOUTH TWICE DAILY 30 Active BD Ultra-Fine Lancets 1 as directed Apr, Active Test strips Blood Glucose as directed Apr, Active Protonix 40 MG Orally Once a day 1 tablet 24h 30 Active Aspirin 81 MG Orally Once a day take 1 tablet (81 mg) by oral route once daily 24h Aug, Active Naprosyn 500 MG Orally 2 times a day, pc 1 Oct, Active Albuterol Sulfate (2.5 MG/3ML) 0.083% Inhalation Three times a day 3 ml 8h May, Active Hydrochlorothiazide 25 MG TAKE ONE TABLET BY MOUTH ONCE DAILY 90 Active RESULTS Name Result Date Reference Range Xray : Knee, Right 1-2 views (IN HOUSE) 2016-11-01 PROCEDURES Procedure Date Ordered Related Diagnosis Body Site X-RAY EXAM OF KNEE, 1 OR 2 Nov 01, 2016 [facility] VISIT ESTABLISHED PATIENT Nov 01, 2016 Office Visit, Est Pt., Level 2 Nov 01, 2016 IMMUNIZATIONS No Known Immunizations
--- OUTSIDE RECORDS SUMMARY | 2017-08-09 09:01 | XMS REPORT ---
Author Author RENETTA CARDOZA Organization [facility] Address [address] [place] [address] Care Team Providers Care Machine Gun Mechanic Name Role Phone RENETTA CARDOZA Unavailable PROBLEMS Type Condition ICD9-CM Code ROX70-NP Code Onset Dates Condition Status SNOMED Code Problem Hypertension, benign I10 Active 48596644 Problem Tobacco abuse Z72.0 Active 11807511 Problem Morbid obesity due to excess calories E66.01 Active 294501138 Problem Chronic obstructive pulmonary disease, unspecified COPD type J44.9 Active 63387833 Problem LAURY (obstructive sleep apnea) G47.33 Active 00232070 Problem COPD exacerbation J44.1 Active 753800708 Problem Non morbid obesity due to excess calories E66.09 Active 843178557 Problem Coronary artery disease involving [place] heart, angina presence unspecified, unspecified vessel or lesion type I25.10 Active 27965081 Problem Edema, due to unspecified malnutrition type, unspecified type R60.9 Active 574151140 Problem Other chronic pain G89.29 Active 54664928 Problem Palpitations R00.2 Active 63557977 ALLERGIES Unknown Allergies SOCIAL HISTORY No smoking Hx information available PLAN OF CARE VITAL SIGNS MEDICATIONS Medication Instructions Dosage Frequency Start Date End Date Duration Status Topamax 50 mg Orally Twice a day 1 tablet 12Oct, 30 day(s) Active RESULTS No Results PROCEDURES No Known procedures IMMUNIZATIONS No Known Immunizations
[2017-08-09] MEDS ORDERED: morphine PF (DURAMORPH) 10 MG/10 ML AMP ONE (09:09)
[2017-08-09] MEDS ORDERED: BUPIVACAINE 0.25% 30 ML (SENSORCAINE) VIAL ONE (09:09)
[2017-08-09] MEDS ORDERED: fentaNYL INJECTION 100 MCG/2 ML AMP ONE (09:13)
[2017-08-09] MEDS ORDERED: MIDAZOLAM 2 MG/2 ML (VERSED) VIAL ONE (09:13)
[2017-08-09] MEDS ORDERED: LIDOCAINE PF 2% 5 ML (XYLOCAINE) VIAL ONE (09:13)
[2017-08-09] MEDS ORDERED: proPOfol 200 MG/20 ML (DIPRIVAN) VIAL IV ONE (09:13)
[2017-08-09] MEDS ORDERED: LACTATED RINGERS 1,000 ML IV PRN (09:21)
--- NOTE | 2017-08-09 09:25 | Progress Note-Pre Operative ---
Pre-Operative Progress Note H&P Reviewed The H&P was reviewed, patient examined and no changes noted. Date Seen by Provider: Aug 09, 2017 Time Seen by Provider: : Date H&P Reviewed: Aug 09, 2017 Time H&P Reviewed: : Pre-Operative Diagnosis: left knee chondromalacia and medial meniscus tear LEYLA TORRES MD Aug 09, 2017 09:25
--- NOTE | 2017-08-09 09:26 | Progress Note-Post Operative ---
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
[2017-08-09] MEDS ORDERED: ceFAZolin 1 GM/NS 50 ML IVPB IV ONE ×2 (09:30)
[2017-08-09] MEDS ORDERED: HYDROcodone/APAP 7.5 MG/325 MG (LORTAB, LORCET PLUS) TABLET PO PRN (09:30)
[2017-08-09] MEDS ORDERED: CATHETER FLUSH 10 ML SYR IV PRN (09:30)
[2017-08-09 10:02] VITALS: BP 142/84
[2017-08-09] MEDS ORDERED: SEVOFLURANE (ULTANE) 15 ML INHAL SOLN ONE (10:16)
[2017-08-09] MEDS ORDERED: MEPERIDINE (DEMEROL) INJ 50 MG/ML IVP PRN (10:45)
[2017-08-09] MEDS ORDERED: ONDANSETRON 4 MG/2 ML (SDV) Z0FRAN IVP PRN (10:45)
[2017-08-09] MEDS ORDERED: morphine INJ 10 MG/ML 1ML (SYR OR VIAL) IVP PRN (10:45)
[2017-08-09] MEDS ORDERED: HYDROmorphone (DILAUDID) 2 MG/ML VIAL IVP PRN (10:45)
[2017-08-09] MEDS ORDERED: PROMETHAZINE INJ 25 MG/ML (PHENERGAN) AMP IVP PRN (10:45)
[2017-08-09 11:20] VITALS: BP 140/80
[2017-08-09] MEDS ORDERED: HYDR-3816 PO (11:26)
[2017-08-09 11:45] VITALS: BP 140/80
[2017-08-09 11:47] VITALS: BP 140/80
--- NOTE | 2017-08-09 11:55 | Physical Therapy Ortho Eval ---
PT Orthopedic Evaluation Type of Surgery Knee Scope (left) Prior Level of Function Current Living Status: Other Family Locomotion (Upon Admit): Independent Subjective Subjective Pt was standing in room prior to tx and agreeable to PT. Pt reports no pain. Pt has had knee scope in past. Entry Into Home: Stairs With Railing Steps Into Home: 5 Steps Inside Home: 0 Steps Accessories: Railing Present Motor Control Motor Control: Motor Control WNL ROM ROM: WFL, except focal deficit Strength Strength: WFL Transfer Transfers (B, C, W/C) (FIM): 5 Gait Gait Assistive Device: None Right Lower Extremity: Right Weight Bearing Status RLE: Full Weight Bearing Left Lower Extremity: Left Weight Bearing Status LLE: Weight Bearing/Tolerated Gait (FIM): 5 Distance (FIM): 3=150 ft Distance: 150' Gait Level of Assist: 5 Summary/Comments Pt ambulates 150' with no assistive devices and supervision for safety. Patient is steady and has good balance. Treatment Rendered Treatment: Therapeutic Exercises, Gait Train, Step Train, Reviewed Precautions , Use of Ice Exercise Instruction: Quad Sets, Heel Slides, Ankle Pumps Patient completes LAQ, HS, AP x10. PT recommends doing exercises 2-3x/day at home, pt agreeable. Pt also completes 1 step with no assistive device with supervision for safety. Assessment/Goals Goal Time Frame: 1 Visit Understands HEP: Yes Safe Ambulation: Yes Plan Treatment Plan: Discharge Pt is able to ambulate safety and completes 1 step at this time using no assistive device. Pt has no concerns with mobility and is safe to go home. PT/Family Agrees to Plan: Yes Time Time In: 1140 Time Out: 1150 Total Billed Treatment Time: 10 Billed Treatment Time 1 visit EVL 10 Yes PT/OT Therapy GCodes Therapy Functional Limitation: Physical Therapy Test(s)/Tool used to determine: Level of Assistance Scale Functional Limitation-Current Charge Code: MOBCUR Modifier: CI Functional Limitation-Goal Charge Code: MOBGOAL Modifier: CI Functional Limitation-D/C Charge Codes: MOBDC Modifier: CI LORENA MERLOS PT Aug 09, 2017 11:55
--- NOTE | 2017-08-09 23:48 | OPERATIVE REPORT ---
DATE OF SERVICE: 08/09/2017 PREOPERATIVE DIAGNOSES: 1. Left knee chondromalacia of the patella. 2. Left knee medial meniscal tear. POSTOPERATIVE DIAGNOSES: 1. Left knee lateral meniscal tear. 2. 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 3. Left knee chondromalacia of the patella. 4. Left knee chondromalacia of the trochlea. PROCEDURES: 1. Left knee arthroscopic partial lateral meniscectomy. 2. Left knee arthroscopic chondroplasty of the medial tibial plateau. 3. Left knee arthroscopic chondroplasty of the patella. 5. Right knee arthroscopic chondroplasty of the trochlea. SURGEON: Flo Lofton MD CONCRETE SMOOTHER: Ovi Mcfarlane, who assisted throughout the procedure and closed the incisions. ANESTHESIA: General endotracheal by Cal Breaux CRNA. TOURNIQUET TIME: Not applicable. ESTIMATED BLOOD LOSS: Minimal. DRAINS: None. COMPLICATIONS: None. POSTOPERATIVE PLAN: Routine arthroscopy protocol. The patient was transported to the recovery room awake and in stable condition. STATEMENT OF MEDICAL NECESSITY: The patient is a 56-year-old gentleman with complaints of left knee pain catching, locking and swelling. He was tender along his medial joint line and a patellofemoral crepitus noted. He had moderate effusion. He complained of mechanical symptoms, which had failed to improve with conservative measures, because of this the patient elected to proceed with surgical intervention. Examination under anesthesia revealed range of motion of 0/0/135 with a negative Stephen. Negative anterior and posterior drawer. No varus or valgus laxity and negative pivot shift. ARTHROSCOPIC FINDINGS: The patella demonstrated grade 2 chondral flaps centrally in a 15 x 10 area. The trochlea demonstrated grade 3 chondral flaps in a 10 x 10 area superiorly. Medial and lateral gutter were clear. The medial compartment demonstrated no meniscal pathology. However, there was a grade 2 chondral flaps centrally in the tibial plateau in a 8 x 8 area. The ACL and PCL were intact. The lateral compartment demonstrated a tear of the posterior horn/body junction involving approximately 30% of the junction. PROCEDURE IN DETAIL: After risks and benefits of procedure were discussed and questions were answered, an informed consent was signed and placed on the chart. The operative site was confirmed in the preoperative holding area and initialed by the surgeon. The patient was transported to the operating room and after adequate levels of general endotracheal anesthetic were obtained, a time-out was called confirming the operative site. Examination under anesthesia was performed with the above findings noted. The left lower extremity was prepped and draped in the usual sterile fashion. A 60 mL of fluid was used to insufflate the joint and a standard inferolateral portal was placed through arthroscope and under direct visualization, an inferomedial portal was created. The menisci and cruciates were carefully probed with the above findings noted. The unstable chondral flaps on the patella and trochlear were debrided with a shaver back to stable edges. The scope was then redirected into the medial compartment where the unstable chondral flaps and the medial tibial plateau were debrided with a shaver back to a stable edge. The scope was then redirected into the lateral compartment where the lateral meniscus was debrided with a biter and a shaver back to a stable edge. This was carefully probed with no further tearing or instability noted. The knee was copiously irrigated and the portal sites were closed with 3-0 nylon in subcuticular fashion. The knee was injected with Duramorph. The portal sites were infiltrated with plain Marcaine. A soft dressing was applied, and the patient was transferred to the recovery room awake and in stable condition. Job ID: [id number] DocumentID: [id number] Dictated Date: 08/09/2017 10:34:05 Pvc Loader Date: 08/09/2017 23:47:54 Dictated By: FLO LOFTON MD
== END 2017-08-09 11:47 | disposition home or self-care (01) ==
LOC: SDC 08:55
PROVIDERS: ATTEND Orthopaedic Surgery
DX: M23.252 Derangement of posterior horn of lateral meniscus due to old tear or injury, left knee (principal); M94.262 Chondromalacia, left knee; I25.10 Atherosclerotic heart disease of native coronary artery without angina pectoris; E78.5 Hyperlipidemia, unspecified; J44.9 Chronic obstructive pulmonary disease, unspecified; I10 Essential (primary) hypertension; R56.9 Unspecified convulsions; G47.33 Obstructive sleep apnea (adult) (pediatric); F17.210 Nicotine dependence, cigarettes, uncomplicated; Z79.899 Other long term (current) drug therapy

== ENCOUNTER 2017-08-20 08:38 | Emergency (ER) | payer MEDICARE, MEDICAID ==
[~2017-08-20] VITALS: Ht 175.3 cm; Wt 99.8 kg
[2017-08-20] MEDS ORDERED: RT-ALBUTEROL SULF 2.5 MG/3 ML PRE-MIX VIAL INH STA (08:50)
[2017-08-20] MEDS ORDERED: RT-ALBUTEROL/IPRATROPIUM 3 ML (DUONEB) VIAL INH ONE (09:00)
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
[2017-08-20] MEDS ORDERED: predniSONE 20 MG TAB PO ONE (09:45)
--- NOTE | 2017-08-20 09:45 | Diagnostic Imaging Report ---
INDICATION: Cough, COPD, congestion and shortness of breath. COMPARISON: 12/26/16. FINDINGS: The heart size is normal. There is no pleural effusion or pneumothorax. The mediastinum is unremarkable. IMPRESSION: No acute cardiopulmonary abnormality. Dictated by: Dictated on workstation # [id number]
[2017-08-20 10:00] VITALS: BP 142/82
[2017-08-20] MEDS ORDERED: RT-ALBUINH IH (10:02)
[2017-08-20] MEDS ORDERED: PRD20T PO (10:02)
== END 2017-08-20 10:00 | disposition home or self-care (01) ==
LOC: EDUNIT# 08:38 → ER 08:39
DX: J06.9 Acute upper respiratory infection, unspecified (principal); F41.9 Anxiety disorder, unspecified; K21.9 Gastro-esophageal reflux disease without esophagitis; G40.909 Epilepsy, unspecified, not intractable, without status epilepticus; J44.9 Chronic obstructive pulmonary disease, unspecified; E78.00 Pure hypercholesterolemia, unspecified; I10 Essential (primary) hypertension; F17.210 Nicotine dependence, cigarettes, uncomplicated; Z87.828 Personal history of other (healed) physical injury and trauma
CPT/HCPCS: 71020; 87804; 99282

== ENCOUNTER 2017-08-26 16:09 | Observation (INO) | payer MEDICARE, MEDICAID ==
[~2017-08-26] VITALS: Ht 175.3 cm; Wt 122.2 kg
[2017-08-26] MEDS ORDERED: RT-ALBUTEROL/IPRATROPIUM 3 ML (DUONEB) VIAL INH ONE (16:45)
[2017-08-26] MEDS ORDERED: NS IV 1000 ML 1,000 ML IV SCH (16:45)
[2017-08-26] MEDS ORDERED: methylPREDNISolone 125 MG (Solu-MEDROL) VIAL IM ONE (16:45)
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
[2017-08-26 17:12] LABS: BASOPHILS % (AUTO) 0 % (0-10); EOSINOPHILS # (AUTO) 0.1 10^3/uL (0.0-0.3); EOSINOPHILS % (AUTO) 1 % (0-10); LYMPHOCYTES # (AUTO) 1.2 X 10^3 (1.0-4.0); LYMPHOCYTES % (AUTO) 11 % (12-44); MEAN CORPUSCULAR HEMOGLOBIN 31 PG (25-34); MEAN CORPUSCULAR HGB CONC 34 G/DL (32-36); MEAN CORPUSCULAR VOLUME 90 FL (80-99); MEAN PLATELET VOLUME 8.9 FL (7.4-10.4); MONOCYTES # (AUTO) 0.5 X 10^3 (0.0-1.0); MONOCYTES % (AUTO) 4 % (0-12); NEUTROPHILS # (AUTO) 8.5 X 10^3 (1.8-7.8); NEUTROPHILS % (AUTO) 83 % (42-75); PLATELET COUNT 182 10^3/uL (130-400); WHITE BLOOD COUNT 10.2 10^3/uL (4.3-11.0)
[2017-08-26] MEDS ORDERED: methylPREDNISolone 125 MG (Solu-MEDROL) VIAL IVP ONE (17:15)
--- NOTE | 2017-08-26 17:20 | Diagnostic Imaging Report ---
INDICATION: Febrile. COMPARISON: 08/20/2017. FINDINGS: Portable chest show the lungs to be well-aerated and clear. Heart is not enlarged. No pulmonary edema. No hilar adenopathy. No pneumothorax or pleural effusion. IMPRESSION: Normal portable chest. Dictated by: Dictated on workstation # [id number]
[2017-08-26 19:23] VITALS: BP 139/76
[2017-08-26] MEDS ORDERED: RT-ALBUTEROL/IPRATROPIUM 3 ML (DUONEB) VIAL INH PRN (20:00)
[2017-08-26] MEDS: PHENYTOIN 100 MG (DILANTIN) CAP PO SCH (20:17)
[2017-08-26] MEDS ORDERED: diphenhydrAMINE 25 MG TAB (BENADRYL) PO PRN (20:30)
[2017-08-26] MEDS ORDERED: ACETAMINOPHEN 500 MG TAB (TYLENOL) PO PRN (20:30)
[2017-08-26 21:00] VITALS: BP 145/71
[2017-08-26] MEDS ORDERED: NICOTINE 21 MG (NICODERM) PATCH TD SCH (21:00)
[2017-08-27] VITALS: BP 138/78
[2017-08-27] MEDS: methylPREDNISolone 125 MG (Solu-MEDROL) VIAL IV SCH ×2 (00:26→05:47)
[2017-08-27 04:00] VITALS: BP 147/87
[2017-08-27 05:15] LABS: BASOPHILS % (AUTO) 0 % (0-10); EOSINOPHILS % (AUTO) 0 % (0-10); LYMPHOCYTES # (AUTO) 0.6 X 10^3 (1.0-4.0); LYMPHOCYTES % (AUTO) 7 % (12-44); MEAN CORPUSCULAR HEMOGLOBIN 31 PG (25-34); MEAN CORPUSCULAR HGB CONC 34 G/DL (32-36); MEAN CORPUSCULAR VOLUME 90 FL (80-99); MEAN PLATELET VOLUME 9.2 FL (7.4-10.4); MONOCYTES # (AUTO) 0.2 X 10^3 (0.0-1.0); MONOCYTES % (AUTO) 2 % (0-12); NEUTROPHILS # (AUTO) 8.7 X 10^3 (1.8-7.8); NEUTROPHILS % (AUTO) 91 % (42-75); PLATELET COUNT 181 10^3/uL (130-400); RED CELL DISTRIBUTION WIDTH 13.8 % (10.0-14.5); WHITE BLOOD COUNT 9.5 10^3/uL (4.3-11.0)
[2017-08-27 05:48] LABS: BAND NEUTROPHILS 2 %; BASOPHILS % (MANUAL) 0 %; EOSINOPHILS % (MANUAL) 0 %; LYMPHOCYTES % (MANUAL) 4 %; NEUTROPHILS % (MANUAL) 92 %
[2017-08-27] MEDS: RT-ALBUTEROL/IPRATROPIUM 3 ML (DUONEB) VIAL INH SCH ×2 (06:57→10:20)
[2017-08-27] MEDS: PHENYTOIN 100 MG (DILANTIN) CAP PO SCH (08:19)
[2017-08-27 08:20] VITALS: BP 152/82
[2017-08-27] MEDS ORDERED: INFLUENZA TRIvalent 2017-2018 0.5 ML/45 MCG SYR IM ONE (09:00)
--- NOTE | 2017-08-27 10:43 | Diagnostic Imaging Report ---
INDICATION: Acute exacerbation of COPD Upright chest shows normal heart size and vascularity. The lungs are clear. There is no effusion or pneumothorax. There is no acute bony abnormality. IMPRESSION: No acute abnormality is seen with no change from 08/26/17. Dictated by: Dictated on workstation # [id number]
[2017-08-27 12:00] VITALS: BP 167/80
--- NOTE | 2017-08-27 12:43 | Short Stay Summary ---
WHITNEY ENRIQUEZ MED STUDENT 08/27/17 1243: History of Present Illness History of Present Illness Reason for visit/HPI Patient is a 56-year old male who presented to the ED yesterday afternoon (08/26 ) with symptoms of an acute exacerbation of COPD. Patient seen a week ago for similar respiratory distress symptoms and prescribed Prednisone. Patient reports Prednisone successfully alleviated his difficulty breathing and associated symptoms. Two days after stopping Prednisone - - which was yesterday , 08/26 - - patient's respiratory previous symptoms returned. Patient was having significant difficulty both with inhalation and expiration, but "especially with [inhalation]." Patient also reported feeling nauseated, dry heaving, a productive cough ("yellow-green" sputum), audible wheezing, dizziness , accelerated RR, runny nose, and generalized tiredness. Patient initially went to [facility], was administered 2 nebulizer treatments, and O2 sat decreased from initial 96% to 91%; at which point Walk-In provider referred patient to ED. Patient given Albuterol and Dilantin (for patient's epilepsy) in ED, both CXR and CBC were ordered, and admitted as in-patient. CXR and CBC results were both unremarkable. Since being admitted to present time, patient's difficulty breathing has significantly improved. Patient was alert and able to converse, not requiring the use of accessory muscles. Patient states he no longer feels nauseated, his energy level is "really improved," and denies any dizziness, having to work hard to breathe, fever or chills, chest pain, or any recent sick contacts. Patient says his productive cough is still present. Patient was administered both Dilantin and Albuterol early this morning (around 5:00), has a Nicotine patch on his left shoulder, reports his last BM was yesterday, urinating 9-10 times overnight, and eating a sandwich last night and egg, sausage and toast this morning. Patient states he is able to ambulate under his own power. Patient smokes "about 3 packs" of cigarettes per day, and has done so for the last 47 years. Patient states he currently take Chantix and acknowledges how important quitting is. Patient does not drink alcohol and will occasionally smoke cannabis to "help with [his] epilepsy." Patient would like influenza vaccination today as well as orders to have a breathing machine at home; something he currently lacks. Patient reports he is scheduled to begin respiratory therapy with Dr. Horner (canine service instructor trainer) on 09/18. Patient's primary provider at [facility] is Ben Monteiro NP. Date of Admission Aug 26, 2017 at 18:00 Date of Discharge Time Seen by Provider: 10:30 Attending Physician Tayler Subramanian MD Admitting Physician Clau Pritchett DO Consult Allergies and Home Medications Allergies Coded Allergies: diclofenac (Verified Allergy, Intermediate, SWELLING, 06/15/17) Home Medications Albuterol Sulfate 1 Puff Puff, 2 PUFF IH Q4H, #1 Ref 1 1 PUFF = 90 MCG Prescribed by: WHITNEY THORNTON on 08/20/17 1002 Albuterol Sulfate 1 Puff Puff, 2 PUFF IH Q4H PRN for SHORTNESS OF BREATH, #1 Ref 2 1 PUFF = 90 MCG Prescribed by: TAYLER SUBRAMANIAN on 08/27/17 1256 Aspirin 81 Mg Tab.chew, 81 MG PO DAILY, (Reported) Atorvastatin Calcium 80 Mg Tablet, 80 MG PO HS, (Reported) Hydrochlorothiazide 25 Mg Tablet, 25 MG PO DAILY, (Reported) Metoprolol Succinate 100 Mg Tab.er.24h, 100 MG PO DAILY, (Reported) Omeprazole 20 Mg Capsule.dr, 20 MG PO DAILY, (Reported) Phenytoin Sodium Extended 100 Mg Capsule, 200 MG PO BID, (Reported) TAKE 2 (100MG) TABS Prednisone 20 Mg Tab, 40 MG PO DAILY, #10 Ref 0 Prescribed by: WHITNEY THORNTON on 08/20/17 1002 Prednisone 20 Mg Tab, 20 MG PO DAILY, #22 Take 3 tabs(60mg)daily,decrease by 1/2 tab(10mg)every other day. Prescribed by: TAYLER SUBRAMANIAN on 08/27/17 1256 Umeclidinium [place] 62.5 Mcg Blst.w.dev, 62.5 MCG IH DAILY, (Reported) Past Qrsjbqw-Kvcmzv-Ywodmp Hx Patient Social History Marrital Status: Alcohol Use: Denies Use Recreational Drug Use: Yes Drug of Choice: MARIJUANA Smoking Status: Current Everyday Smoker Type Used: Cigarettes 2nd Hand Smoke Exposure: Yes Physical Abuse Screen: No Sexual Abuse: No Recent Foreign Travel: No Contact w/other who traveled: No Recent Hopitalizations: No Recent Infectious Disease Expo: No Immunizations Up To Date Tetanus Booster (TDap): Less than 5yrs Date of Pneumonia Vaccine: Aug 10, 2015 Date of Influenza Vaccine: Aug 08, 2016 Seasonal Allergies Seasonal Allergies: No Surgeries Yes (BILAT CARPAL TUNNEL, LEFT FOOT TOE SX, LOOP RECORDER PLACED/REMOVED , ) Respiratory Yes (COPD, SLEEP APNEA, BIPAP) Currently Using CPAP: No Currently Using BIPAP: Yes Cardiovascular Yes High Cholesterol, Hypertension, Irregular Heartbeat Neurological Yes (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, LAST SEIZURE-03/2017) Seizure Disorder Reproductive System Hx Reproductive Disorders: No Sexually Transmitted Disease: No HIV/AIDS: No Genitourinary No Gastrointestinal Yes Gastroesophageal Reflux Musculoskeletal No Chronic Back Pain Endocrine History of Endocrine Disorders: Yes (BORDERLINE DIABETES, NOT TAKING MEDS) HEENT History of HEENT Disorders: Yes Loss of Vision: Bilateral Hearing Impairment: Denies Cancer No Psychosocial History of Psychiatric Problem: Yes (RELATED TO BREATHING ISSUES-RACING HELMET/ SWIMMING) Behavioral Health Disorders: Anxiety Integumentary History of Skin or Integumenta: Yes (DRY PATCHES ON ELBOW AND HANDS) Blood Transfusions History of Blood Disorders: No Adverse Reaction to a Blood Tr: No Reviewed Nursing Assessment Reviewed/Agree w Nursing PMH: Yes Family Medical History Significant Family History: No Pertinent Family Hx Family Hx: Cardiovascular disease FH: cancer 19 FATHER 19 MOTHER Constitutional: see HPI, No chills, No dizziness, No fever EENTM: nose congestion (Patient states he was "plugged up in the sinuses" this morning (08/27), but says pressure relieved once he blew his nose) Respiratory: see HPI, cough (productive ("yellow-green" sputum)), phlegm, wheezing (Patient states his wheezing has significantly decreased since admission yesterday) Cardiovascular: No chest pain, No edema Gastrointestinal: No abdominal pain, No diarrhea, No nausea, No vomiting Genitourinary: see HPI, frequency (Patient says he urinated 9-10 times overnight), nocturia Musculoskeletal: see HPI Skin: no symptoms reported Psychiatric/Neurological: See HPI Physical Exam Vital Signs Vital Sign - Last 12Hours Capillary Refill : Less Than 3 Seconds General Appearance: Other (Patient alert and in no acute distress, able to converse, cooperative and pleasant) Neck: Non Tender, No Lymphadenopathy (L), No Lymphadenopathy (R), No Thyromegaly Respiratory: No Accessory Muscle Use, Wheezing (course, expiratory wheezing diffusely on auscultation) Cardiovascular: Regular Rate, Rhythm Gastrointestinal: Normal Bowel Sounds, Non Tender, Soft Extremity: No Pedal Edema, No Calf Tenderness, No Pedal Edema Neurologic/Psychiatric: Alert, Normal Mood/Affect Clinical Quality Measures DVT/VTE Risk/Contraindication: Risk Factor Score Per Nursin RFS Level Per Nursing on Admit: 4+=Very High Short Stay Diagnosis Discharge Diagnosis-Short Stay Admission Diagnosis: 1.) Acute exacerbation of COPD 2.) Epilepsy 3.) Atheroclerosis 4.) HTN 5.) LAURY 6.) Hyperlipidemia 7.) Irregular heartbeat 8.) Pre-diabetes Final Discharge Diagnosis: Acute COPD exacerbation Conclusion Labs Laboratory Tests 08/26/17 17:00: White Blood Count 10.2, Red Blood Count 6.00H, Hemoglobin 18.4H, Hematocrit 54, Mean Corpuscular Volume 90, Mean Corpuscular Hemoglobin 31, Mean Corpuscular Hemoglobin Concent 34, Red Cell Distribution Width 14.0, Platelet Count 182, Mean Platelet Volume 8.9, Neutrophils (%) (Auto) 83H, Lymphocytes (%) (Auto) 11L , Monocytes (%) (Auto) 4, Eosinophils (%) (Auto) 1, Basophils (%) (Auto) 0, Neutrophils # (Auto) 8.5H, Lymphocytes # (Auto) 1.2, Monocytes # (Auto) 0.5, Eosinophils # (Auto) 0.1, Basophils # (Auto) 0.0 08/27/17 04:50: White Blood Count 9.5, Red Blood Count 5.70, Hemoglobin 17.5, Hematocrit 51, Mean Corpuscular Volume 90, Mean Corpuscular Hemoglobin 31, Mean Corpuscular Hemoglobin Concent 34, Red Cell Distribution Width 13.8, Platelet Count 181, Mean Platelet Volume 9.2, Neutrophils (%) (Auto) 91H, Lymphocytes (%) (Auto) 7L , Monocytes (%) (Auto) 2, Eosinophils (%) (Auto) 0, Basophils (%) (Auto) 0, Neutrophils # (Auto) 8.7H, Lymphocytes # (Auto) 0.6L, Monocytes # (Auto) 0.2, Eosinophils # (Auto) 0.0, Basophils # (Auto) 0.0, Neutrophils % (Manual) 92, Lymphocytes % (Manual) 4, Monocytes % (Manual) 2, Eosinophils % (Manual) 0, Basophils % (Manual) 0, Band Neutrophils 2, Toxic Granulation 1+ Conclusion/Plan 1.) Ordered home nebulizer breathing machine; patient will use inhaler until machine is ready to be picked up (which will hopefully be tomorrow 08/28) 2.) Patient instructed Evelia Ferrera RN will be in touch to schedule a [facility] hospital f/u visit 3.) Patient will receive influenza vaccination today 4.) Patient instructed on importance of avoiding any known, or potential, sick contacts as we enter viral season Copy Copies To 1: [facility], Ben SUBRAMANIAN,TAYLER Junior MD 08/27/17 1320: History of Present Illness History of Present Illness Reason for visit/HPI 56 yo M with known COPD that was admitted for exacerbation. Patient has been feeling bad since last Monday. Seen in the ER and given steroids which he completed 2 days ago. Denies fever, chills,chest pain or palpitations. No sick contacts. Smokes 3ppd but has been cutting down for the last week. Just recently started Chantix. Date of Admission 08/26/2017 Date of Discharge 08/27/2017 Time Seen by Provider: 09:20 Allergies and Home Medications Allergies Coded Allergies: diclofenac (Verified Allergy, Intermediate, SWELLING, 06/15/17) Home Medications Albuterol Sulfate 1 Puff Puff, 2 PUFF IH Q4H, #1 Ref 1 1 PUFF = 90 MCG Prescribed by: WHITNEY THORNTON on 08/20/17 1002 Albuterol Sulfate 1 Puff Puff, 2 PUFF IH Q4H PRN for SHORTNESS OF BREATH, #1 Ref 2 1 PUFF = 90 MCG Prescribed by: TAYLER SUBRAMANIAN on 08/27/17 1256 Aspirin 81 Mg Tab.chew, 81 MG PO DAILY, (Reported) Atorvastatin Calcium 80 Mg Tablet, 80 MG PO HS, (Reported) Hydrochlorothiazide 25 Mg Tablet, 25 MG PO DAILY, (Reported) Metoprolol Succinate 100 Mg Tab.er.24h, 100 MG PO DAILY, (Reported) Omeprazole 20 Mg Capsule.dr, 20 MG PO DAILY, (Reported) Phenytoin Sodium Extended 100 Mg Capsule, 200 MG PO BID, (Reported) TAKE 2 (100MG) TABS Prednisone 20 Mg Tab, 40 MG PO DAILY, #10 Ref 0 Prescribed by: WHITNEY THORNTON on 08/20/17 1002 Prednisone 20 Mg Tab, 20 MG PO DAILY, #22 Take 3 tabs(60mg)daily,decrease by 1/2 tab(10mg)every other day. Prescribed by: TAYLER SUBRAMANIAN on 08/27/17 1256 Umeclidinium [place] 62.5 Mcg Blst.w.dev, 62.5 MCG IH DAILY, (Reported) Past Vfvtosy-Tpviky-Cqdgwa Hx Patient Social History Living Status: Lives at home with GF Immunizations Up To Date Date of Influenza Vaccine: Aug 27, 2017 Respiratory COPD (40 yr smoking history) Currently Using BIPAP: Yes Family Medical History Family Hx: Cardiovascular disease FH: cancer 19 FATHER 19 MOTHER Constitutional: No chills, No fever, malaise EENTM: no symptoms reported Respiratory: cough, dyspnea on exertion, No hemoptysis, No orthopnea, short of breath Cardiovascular: no symptoms reported, No chest pain, No edema, No palpitations Gastrointestinal: no symptoms reported, No abdominal pain, No constipation, No diarrhea, No nausea, No vomiting Genitourinary: no symptoms reported, No dysuria, No frequency, No hematuria Musculoskeletal: no symptoms reported Skin: no symptoms reported, No lesions, No rash Psychiatric/Neurological: No Symptoms Reported, Denies Anxiety, Denies Depressed, Denies Seizure, Denies Weakness Physical Exam General Appearance: No Apparent Distress, Other (Overweight) HEENT: PERRL/EOMI Neck: Full Range of Motion, Normal Inspection, Non Tender, Supple Respiratory: Chest Non Tender, No Accessory Muscle Use, No Respiratory Distress , No Crackles, Wheezing (mild end exp wheezing) Cardiovascular: Regular Rate, Rhythm, No Edema, No Murmur, Normal Peripheral Pulses Gastrointestinal: Normal Bowel Sounds, No Organomegaly, Non Tender, Soft Back: Normal Inspection, No CVA Tenderness Extremity: Normal Capillary Refill, Non Tender, No Calf Tenderness, No Pedal Edema Neurologic/Psychiatric: Alert, Oriented x3, No Motor/Sensory Deficits, Normal Mood/Affect, visual journalist II-XII Norm as Tested Skin: Normal Color, Warm/Dry Lymphatic: No Adenopathy Short Stay Diagnosis Discharge Diagnosis-Short Stay Admission Diagnosis: COPD exacerbation Tobacco use Seizure disorder HTN LAURY on Bipap Final Discharge Diagnosis: See Above Conclusion Conclusion/Plan 56 yo M with known COPD that was admitted with exacerbation Plan COPD Exacerbation - Patient received aggressive pulmonary treatments throughout night, off oxygen this AM, Feeling much better - Ordered Nebulizer for home treatments - Start Long steroid taper - Discussed the importance of cessation Tobacco Abuse - Recommend cessation - Continue Chantix HTN - Restart home meds LAURY on Bipap Seizure Disorder - Continue home meds Patient to be discharged home today with close follow up with Ben Monteiro Copy Copies To 1: Ben EASLEY TIMOTHY J MED STUDENT Aug 27, 2017 12:43 TAYLER SUBRAMANIAN MD Aug 27, 2017 13:20
--- NOTE | 2017-08-27 12:51 | Discharge Instructions ---
Discharge Inst-[facility] Discharge Medications New, Converted or Re-Newed RX: Transmitted to Pharmacy ([facility]) Patient Instructions Goal/Follow Up Appt: You will be called Monday with follow up appt with your PCP Ben Monteiro Patient Instructions: - Make sure you schedule your breathing treatments every 4 hrs for the next few days - Make sure to review your medication list Return to [facility]: - Increased work of breathing not improved with treatments -Chest pain - Unable to tolerate steroids Activity & Diet Discharge Diet: No Restrictions Activity as Tolerated: Yes Orders-Post D/C & Referrals - Nebulizer [facility] MD Aug 27, 2017 12:51
[2017-08-27] MEDS ORDERED: RT-ALBUINH IH (12:56)
[2017-08-27] MEDS ORDERED: PRD20T PO (12:56)
== END 2017-08-27 12:56 | disposition home or self-care (01) ==
LOC: ER 16:09 → UNDOADMOB 18:00 → ICU 18:00 → UNDODISOB 08-27 14:06
PROVIDERS: ADMIT Family Medicine; ATTEND Family Medicine
DX: J44.1 Chronic obstructive pulmonary disease with (acute) exacerbation (principal); I10 Essential (primary) hypertension; Z23 Encounter for immunization; G47.33 Obstructive sleep apnea (adult) (pediatric); G40.909 Epilepsy, unspecified, not intractable, without status epilepticus; E78.5 Hyperlipidemia, unspecified; I49.9 Cardiac arrhythmia, unspecified; R73.03 Prediabetes; F17.210 Nicotine dependence, cigarettes, uncomplicated; Z79.82 Long term (current) use of aspirin; Z79.899 Other long term (current) drug therapy
CPT/HCPCS: 36415; 71010; 85007; 85025; 85027; 94640

== ENCOUNTER 2017-12-05 09:00 | Outpatient (RCR) | payer MEDICARE, MEDICAID ==
[~2017-12-05 09:00] MED LIST changes: +HYDR-34 PO; -HYDR-3816 PO; +NAPR-1071 PO; -NAPR500T PO
[2017-12-10] MEDS ORDERED: PRD20T PO (11:31)
[2017-12-10] MEDS ORDERED: OSLT75C PO (11:31)
== END 2017-12-17 | disposition home or self-care (01) ==
LOC: PULM 09:00
PROVIDERS: ATTEND Nurse Practitioner Family
DX: J44.9 Chronic obstructive pulmonary disease, unspecified (principal); F12.10 Cannabis abuse, uncomplicated; Z72.0 Tobacco use
CPT/HCPCS: 99211

== ENCOUNTER 2017-12-10 09:19 | Emergency (ER) | payer MEDICARE, MEDICAID ==
[~2017-12-10] VITALS: Ht 157.5 cm; Wt 123.4 kg
[2017-12-10] MEDS ORDERED: RT-ALBUTEROL/IPRATROPIUM 3 ML (DUONEB) VIAL ONE (10:54)
--- NOTE | 2017-12-10 10:58 | ED Cough/URI ---
General Chief Complaint: Cough/Cold/Flu Symptoms Stated Complaint: FLU LIKE SYMPTOMS Nursing Triage Note: AMB TO ED WITH C/O FLU TYPE SYMPTOMS FOR 3 DAYS Source: patient Exam Limitations: no limitations History of Present Illness Date Seen by Provider: Dec 10, 2017 Time Seen by Provider: 10:55 Initial Comments To ER with c/o body aches, chest pains with breathing, fevers and generally feeling ill. He does report fevers but is uncertain how high. Symptoms began yesterday. He does smoke and have COPD. He does use a nebulizer at home Timing/Duration: constant Severity/Quality: productive cough Associated Symptoms: cough Allergies and Home Medications Allergies Coded Allergies: diclofenac (Verified Allergy, Intermediate, SWELLING, 06/15/17) Home Medications Albuterol Sulfate 1 Puff Puff, 2 PUFF IH Q4H PRN for SHORTNESS OF BREATH, #1 Ref 2 1 PUFF = 90 MCG Prescribed by: TAYLER SUBRAMANIAN on 08/27/17 1256 Aspirin 81 Mg Tab.chew, 81 MG PO DAILY, (Reported) Atorvastatin Calcium 80 Mg Tablet, 80 MG PO HS, (Reported) Hydrochlorothiazide 25 Mg Tablet, 25 MG PO DAILY, (Reported) Metoprolol Succinate 100 Mg Tab.er.24h, 100 MG PO DAILY, (Reported) Omeprazole 20 Mg Capsule.dr, 20 MG PO DAILY, (Reported) Phenytoin Sodium Extended 100 Mg Capsule, 200 MG PO BID, (Reported) TAKE 2 (100MG) TABS Prednisone 20 Mg Tab, 20 MG PO DAILY, #22 Take 3 tabs(60mg)daily,decrease by 1/2 tab(10mg)every other day. Prescribed by: TAYLER SUBRAMANIAN on 08/27/17 1256 Umeclidinium [place] 62.5 Mcg Blst.w.dev, 62.5 MCG IH DAILY, (Reported) Constitutional: see HPI EENTM: see HPI Respiratory: no symptoms reported Cardiovascular: see HPI, chest pain Genitourinary: no symptoms reported Musculoskeletal: no symptoms reported Skin: no symptoms reported Psychiatric/Neurological: No Symptoms Reported Hematologic/Lymphatic: No Symptoms Reported Immunological/Allergic: no symptoms reported Past Xnkegpr-Tvuehf-Onnkrp Hx Patient Social History Alcohol Use: Denies Use Recreational Drug Use: No Drug of Choice: MARIJUANA Smoking Status: Current Everyday Smoker Type Used: Cigarettes 2nd Hand Smoke Exposure: Yes Recent Foreign Travel: No Contact w/Someone Who Travel: No Recent Infectious Disease Expo: No Recent Hopitalizations: No Immunizations Up To Date Tetanus Booster (TDap): Less than 5yrs Date of Pneumonia Vaccine: Aug 10, 2015 Date of Influenza Vaccine: Aug 27, 2017 Seasonal Allergies Seasonal Allergies: No Surgeries History of Surgeries: Yes (BILAT CARPAL TUNNEL, LEFT FOOT TOE SX, LOOP RECORDER PLACED/REMOVED , ) Respiratory History of Respiratory Disorde: Yes (COPD, SLEEP APNEA, BIPAP) Respiratory Disorders: Sleep Apnea, COPD Currently Using CPAP: No Currently Using BIPAP: Yes Cardiovascular History of Cardiac Disorders: Yes Cardiac Disorders: High Cholesterol, Hypertension, Irregular Heartbeat Neurological History of Neurological Disord: Yes (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, LAST SEIZURE-03/2017) Neurological Disorders: Seizure Disorder Reproductive System Hx Reproductive Disorders: No Sexually Transmitted Disease: No HIV/AIDS: No Genitourinary History of Genitourinary Disor: No Gastrointestinal History of Gastrointestinal Di: Yes Gastrointestinal Disorders: Gastroesophageal Reflux Musculoskeletal History of Musculoskeletal Dis: No Musculoskeletal Disorders: Chronic Back Pain Endocrine History of Endocrine Disorders: Yes (BORDERLINE DIABETES, NOT TAKING MEDS) HEENT History of HEENT Disorders: Yes Loss of Vision: Bilateral Hearing Impairment: Denies Cancer History of Cancer: No Psychosocial History of Psychiatric Problem: Yes (RELATED TO BREATHING ISSUES-RACING HELMET/ SWIMMING) Behavioral Health Disorders: Anxiety Integumentary History of Skin or Integumenta: Yes (DRY PATCHES ON ELBOW AND HANDS) Blood Transfusions History of Blood Disorders: No Adverse Reaction to a Blood Tr: No Family Medical History Significant Family History: No Pertinent Family Hx Family Medial History: Cardiovascular disease FH: cancer 19 FATHER 19 MOTHER Physical Exam Vital Signs Vital Signs - First Documented 12/10/17 12/10/17 09:34 11:00 Temp 98.3 Pulse 81 Resp 18 B/P (MAP) 147/81 (103) Pulse Ox 93 O2 Delivery Room Air Capillary Refill : Less Than 3 Seconds General Appearance: WD/WN, no apparent distress Eyes: Bilateral Eye Normal Inspection, Bilateral Eye PERRL, Bilateral Eye EOMI HEENT: PERRL/EOMI, normal ENT inspection Neck: non-tender, full range of motion Respiratory: no respiratory distress, no accessory muscle use, wheezing Cardiovascular: regular rate, rhythm, no murmur Gastrointestinal: normal bowel sounds, non tender, soft Extremities: normal range of motion, non-tender Neurologic/Psychiatric: alert, normal mood/affect, oriented x 3 Skin: normal color, warm/dry Progress/Results/Core Measures Suspected Sepsis Recent Fever Within 48 Hours: No Infection Criteria Present: Suspected New Infection New/Unexplained Altered Menta: No Sepsis Screen: No Definite Risk Sepsis Diagnosis: SIRS Temperature:98.3 Pulse: 81 Respiratory Rate: 18 Blood Pressure 147 /81 Mean: 103 Results/Orders My Orders Orders - ROMA STRICKLAND APRN Albuterol/Ipra Inhalation Soln (Duoneb I (12/10/17 11:00) Svn Sm Volume Nebulizer Rt-Rfs (12/10/17 10:54) Chest Pa/Lat (2 View) (12/10/17 10:54) Albuterol/Ipra Inhalation Soln (Duoneb I (12/10/17 10:54) Prednisone Tablet (Deltasone Tablet) (12/10/17 11:30) Medications Given in ED Current Medications Medications Dose Ordered Sig/Angella Route Start Time Stop Time Status Last Admin Dose Admin Albuterol/ Ipratropium 3 ml ONCE ONCE INH 12/10/17 11:00 12/10/17 11:01 DC 12/10/17 10:59 3 ML Vital Signs/I&O Vital Sign - Last 12Hours 12/10/17 12/10/17 09:34 11:00 Temp 98.3 Pulse 81 Resp 18 B/P (MAP) 147/81 (103) Pulse Ox 93 95 O2 Delivery Room Air Capillary Refill : Less Than 3 Seconds Blood Pressure Mean: 103 Departure Communication (Admissions) Progress Notes He is afebrile here and has not used any antipyretics at home. However, given his comorbid COPD I'll place him empirically on Tamiflu Impression Impression: Primary Impression: COPD exacerbation Disposition: HOME, SELF-CARE Condition: Stable Departure-Patient Inst. Decision time for Depature: 11:30 Referrals: [facility] (PCP/Family) Primary Care Physician Patient Instructions: Flu, Adult (DC) Add. Discharge Instructions: 1. Use your breathing machine at home one treatment every 4 hours and up to every 2 hours if needed. Take steroids as directed starting tomorrow. Take the Tamiflu as directed starting today. Return to ER for any worsening symptoms or shortness of breath. All discharge instructions reviewed with patient and/or family. Voiced understanding. Scripts Prednisone (Prednisone) 20 Mg Tab 40 MG PO DAILY for 4 Days, #8 TAB Prov: ROMA STRICKLAND APRN 12/10/17 Oseltamivir Phosphate (Tamiflu) 75 Mg Cap 75 MG PO BID, #10 CAP Prov: ROMA STRICKLAND APRN 12/10/17 ROMA STRICKLAND APRN Dec 10, 2017 10:58
[2017-12-10] MEDS ORDERED: RT-ALBUTEROL/IPRATROPIUM 3 ML (DUONEB) VIAL INH ONE (11:00)
[2017-12-10] MEDS ORDERED: predniSONE 20 MG TAB PO ONE (11:30)
[2017-12-10] MEDS ORDERED: OSLT75C PO (11:31)
[2017-12-10] MEDS ORDERED: PRD20T PO (11:31)
--- NOTE | 2017-12-10 11:46 | Diagnostic Imaging Report ---
EXAM: CHEST PA/LAT (2 VIEW) INDICATION: Cough. Flu symptoms. COMPARISON: Chest radiograph 08/27/2017. FINDINGS: Normal heart size and pulmonary vascularity. No focal pulmonary opacity, pleural effusion or pneumothorax. Osseous structures are unremarkable. No significant change. IMPRESSION: No acute cardiopulmonary findings. Dictated by: Dictated on workstation # [id number]
[2017-12-10 11:51] VITALS: BP 147/81
--- OUTSIDE RECORDS SUMMARY | 2017-12-13 12:50 | XMS REPORT ---
Author Author RENETTA CARDOZA [facility] Address [address] [place] [address] Care Team Providers Care Welding Teacher Name Role Phone RENETTA CARDOZA Unavailable PROBLEMS Type Condition ICD9-CM Code [id number] Code Onset Dates Condition Status SNOMED Code Problem Tobacco abuse Z72.0 Active 20918065 Problem Edema, due to unspecified malnutrition type, unspecified type R60.9 Active 980540954 Problem Palpitations R00.2 Active 11716619 Problem Chronic obstructive pulmonary disease, unspecified COPD type J44.9 Active 13692893 Problem LAURY (obstructive sleep apnea) G47.33 Active 03823164 Problem Hypertension, benign I10 Active 66330806 Problem Morbid obesity due to excess calories E66.01 Active 108608881 Problem COPD with acute exacerbation J44.1 Active 888178893 Problem Non morbid obesity E66.9 Active 928337986 Problem Other chronic pain G89.29 Active 23230226 Problem Coronary artery disease involving tetlin heart, angina presence unspecified, unspecified vessel or lesion type I25.10 Active 68179777 Problem Panlobular emphysema J43.1 Active 9133072 Problem Non morbid obesity due to excess calories E66.09 Active 322493000 ALLERGIES No Information SOCIAL HISTORY Never Assessed PLAN OF CARE VITAL SIGNS MEDICATIONS Medication Instructions Dosage Frequency Start Date End Date Duration Status Hydrochlorothiazide 25 MG Orally Once a day TAKE ONE TABLET BY MOUTH ONCE DAILY 24h 90 Active Phenytoin Sodium Extended 100 MG Orally Twice a day TAKE TWO CAPSULES BY MOUTH TWICE DAILY 12h 90 days Active Aspirin 81 MG Orally Once a day take 1 tablet (81 mg) by oral route once daily 24h Aug, 90 days Active Naprosyn 500 MG Orally 2 times a day, pc 1 Oct, 30 days Active Toprol XL 100 MG Orally Once a day TAKE ONE TABLET BY MOUTH ONCE DAILY 24h 90 days Active Topiramate 100 MG Orally Twice a day 1 capsule 12h 90 days Active RESULTS No Results PROCEDURES No Known [...] had loop recorder removed from chest 09/2015 Surgical History right knee surgery 06/21/2017 Surgical History left knee 07/31/2017 Hospitalization History surgeries Hospitalization History [facility]- Viral infection Aug 26
--- OUTSIDE RECORDS SUMMARY | 2017-12-13 12:50 | XMS REPORT ---
Author Author RAJI VARGAS Organization [facility] Address [address] [place] [address] Care Team Providers Care Linen Checker Name Role Phone RAJI VARGAS Unavailable PROBLEMS Type Condition ICD9-CM Code [id number] Code Onset Dates Condition Status SNOMED Code Problem Tobacco abuse Z72.0 Active 77984932 Problem Edema, due to unspecified malnutrition type, unspecified type R60.9 Active 593419492 Problem Palpitations R00.2 Active 74603747 Problem Chronic obstructive pulmonary disease, unspecified COPD type J44.9 Active 94288784 Problem LAURY (obstructive sleep apnea) G47.33 Active 88948244 Problem Hypertension, benign I10 Active 83732911 Problem Morbid obesity due to excess calories E66.01 Active 127712342 Problem Panlobular emphysema J43.1 Active 0838176 Problem Non morbid obesity E66.9 Active 264832788 Problem Other chronic pain G89.29 Active 95816098 Problem Coronary artery disease involving [place] heart, angina presence unspecified, unspecified vessel or lesion type I25.10 Active 19736883 Problem COPD exacerbation J44.1 Active 787830469 Problem Non morbid obesity due to excess calories E66.09 Active 375672402 ALLERGIES No Information SOCIAL HISTORY Never Assessed PLAN OF CARE VITAL SIGNS MEDICATIONS No Known Medications RESULTS No Results PROCEDURES No Known [...] 09/2015 Surgical History right knee surgery 06/21/2017 Hospitalization History surgeries
--- OUTSIDE RECORDS SUMMARY | 2017-12-13 12:51 | XMS REPORT ---
Author Author RENETTA CARDOZA [facility] Address [address] [place] [address] Care Team Providers Care Anglesmith Name Role Phone RENETTA CARDOZA Unavailable PROBLEMS Type Condition ICD9-CM Code [id number] Code Onset Dates Condition Status SNOMED Code Problem Tobacco abuse Z72.0 Active 22870982 Problem Edema, due to unspecified malnutrition type, unspecified type R60.9 Active 600541020 Problem Palpitations R00.2 Active 35340256 Problem Chronic obstructive pulmonary disease, unspecified COPD type J44.9 Active 58657123 Problem LAURY (obstructive sleep apnea) G47.33 Active 94724369 Problem Hypertension, benign I10 Active 77415266 Problem Morbid obesity due to excess calories E66.01 Active 787820878 Problem COPD with acute exacerbation J44.1 Active 216720980 Problem Non morbid obesity E66.9 Active 486192019 Problem Other chronic pain G89.29 Active 47643903 Problem Coronary artery disease involving [place] heart, angina presence unspecified, unspecified vessel or lesion type I25.10 Active 66032428 Problem Panlobular emphysema J43.1 Active 8606325 Problem Non morbid obesity due to excess calories E66.09 Active 819708317 ALLERGIES Substance Reaction Event Type Date Status Diclofenac Unknown Drug Allergy February, Active SOCIAL HISTORY Never Assessed PLAN OF CARE Activity Details Future/Pending Procedure JOINT INJECTION-LARGE JOINT VITAL SIGNS Height 72 in 2017-03-29 Weight 279.2 lbs 2017-03-29 Temperature 98.4 degrees Fahrenheit 2017-03-29 Heart Rate 80 bpm 2017-03-29 Respiratory Rate 22 2017-03-29 BMI 37.86 kg/m2 2017-03-29 Blood pressure systolic 146 mmHg 2017-03-29 Blood pressure diastolic 74 mmHg 2017-03-29 MEDICATIONS Medication Instructions Dosage Frequency Start Date End Date Duration Status Protonix 40 MG Orally Once a day 1 tablet 24h 30 Active Viagra 100 MG Orally Once a day 1 tablet as needed 24h Oct, Active Topamax 50 mg Orally Twice a day 1 tablet 12h 31 Oct, 2016 30 day(s) Active Naprosyn 500 MG Orally 2 times a day, pc 1 Oct, 30 days Active Hydrochlorothiazide 25 MG Orally Once a day TAKE ONE TABLET BY MOUTH ONCE DAILY 24h 90 Active Topiramate 100 MG Orally Twice a day 1 capsule 12h 90 days Active Toprol XL 100 MG Orally Once a day TAKE ONE TABLET BY MOUTH ONCE DAILY 24h 90 days Active Aspirin 81 MG Orally Once a day take 1 tablet (81 mg) by oral route once daily 24h Aug, 90 days Active Phenytoin Sodium Extended 100 MG Orally Twice a day TAKE TWO CAPSULES BY MOUTH TWICE DAILY 12h 90 days Active RESULTS No Results PROCEDURES Procedure Date Ordered Result Body Site DRAIN/INJECT, JOINT/BURSA March 29, 2017 [facility] VISIT ESTABLISHED PATIENT March 29, 2017 IMMUNIZATIONS No Known Immunizations MEDICAL (GENERAL) HISTORY [...]
--- OUTSIDE RECORDS SUMMARY | 2017-12-13 12:51 | XMS REPORT ---
Author Author RENETTA CARDOZA Organization [facility] Address [address] [place] [address] Care Team Providers Care Lens Engraver Name Role Phone RENETTA CARDOZA Unavailable PROBLEMS Type Condition ICD9-CM Code [id number] Code Onset Dates Condition Status SNOMED Code Problem Tobacco abuse Z72.0 Active 09415359 Problem Edema, due to unspecified malnutrition type, unspecified type R60.9 Active 366813150 Problem Palpitations R00.2 Active 02663134 Problem Chronic obstructive pulmonary disease, unspecified COPD type J44.9 Active 47924109 Problem LAURY (obstructive sleep apnea) G47.33 Active 54307760 Problem Hypertension, benign I10 Active 56335496 Problem Morbid obesity due to excess calories E66.01 Active 781578916 Problem COPD with acute exacerbation J44.1 Active 144983276 Problem Non morbid obesity E66.9 Active 969443949 Problem Other chronic pain G89.29 Active 47663961 Problem Coronary artery disease involving [place] heart, angina presence unspecified, unspecified vessel or lesion type I25.10 Active 27649332 Problem Panlobular emphysema J43.1 Active 4193463 Problem Non morbid obesity due to excess calories E66.09 Active 948376706 ALLERGIES No Information SOCIAL HISTORY Never Assessed [...]
--- OUTSIDE RECORDS SUMMARY | 2017-12-13 12:54 | XMS REPORT | Continuity of Care Document ---
Author Author [facility] Address Unknown Phone Unavailable Allergies Active Description Code Type Severity Reaction Onset Reported/Identified Relationship to Patient Clinical Status Yes No Known Drug Allergies [id number] Drug Allergy Unknown N/A 08/21/2012 Yes diclofenac sodium 75 mg tablet,delayed release (DR/EC) Drug Allergy N/A N/A 04/21/2014 Yes diclofenac [id number] Drug Allergy Unknown SWELLING 10/14/2015 Yes diclofenac [id number] Drug Allergy Moderate SWELLING 06/15/2017 Medications There is no data. Problems Date Dx Coded Attending Type Code Diagnosis Diagnosed By 07/14/2012 RENETTA CARDOZA APRN 368.8 OTHER SPECIFIED VISUAL DISTURBANCES 07/14/2012 RENETTA CARDOZA APRN 607.84 IMPOTENCE OF ORGANIC ORIGIN 07/14/2012 RENETTA CARDOZA APRN 780.2 SYNCOPE AND COLLAPSE 07/14/2012 RENETTA CARDOZA APRN V65.42 COUNSELING - SMOKING CESSATION 07/14/2012 RENETTA CARDOZA APRN V70.0 ROUTINE GENERAL MEDICAL EXAMINATION AT A HEALTH CARE FACILITY 07/14/2012 368.8 OTHER SPECIFIED VISUAL DISTURBANCES 07/14/2012 607.84 IMPOTENCE OF ORGANIC ORIGIN 07/14/2012 780.2 SYNCOPE AND COLLAPSE 07/14/2012 V65.42 COUNSELING - SMOKING CESSATION 07/14/2012 V70.0 ROUTINE GENERAL MEDICAL EXAMINATION AT A HEALTH CARE FACILITY 07/14/2012 368.8 OTHER SPECIFIED VISUAL DISTURBANCES 07/14/2012 607.84 IMPOTENCE OF ORGANIC ORIGIN 07/14/2012 780.2 SYNCOPE AND COLLAPSE 07/14/2012 V65.42 COUNSELING - SMOKING CESSATION 07/14/2012 V70.0 ROUTINE GENERAL MEDICAL EXAMINATION AT A HEALTH CARE FACILITY 07/14/2012 368.8 OTHER SPECIFIED VISUAL DISTURBANCES 07/14/2012 607.84 IMPOTENCE OF ORGANIC ORIGIN 07/14/2012 780.2 SYNCOPE AND COLLAPSE 07/14/2012 V65.42 COUNSELING - SMOKING CESSATION 07/14/2012 V70.0 ROUTINE GENERAL MEDICAL EXAMINATION AT A HEALTH CARE FACILITY 07/14/2012 ERNESTINE ANDREW MD 368.8 OTHER SPECIFIED VISUAL DISTURBANCES 07/14/2012 ERNESTINE ANDREW MD 607.84 IMPOTENCE OF ORGANIC ORIGIN 07/14/2012 ERNESTINE ANDREW MD 780.2 SYNCOPE AND COLLAPSE 07/14/2012 ERNESTINE ANDREW MD V65.42 COUNSELING - SMOKING CESSATION 07/14/2012 ERNESTINE ANDREW MD V70.0 ROUTINE GENERAL MEDICAL EXAMINATION AT A HEALTH CARE FACILITY 07/14/2012 368.8 OTHER SPECIFIED VISUAL DISTURBANCES 07/14/2012 607.84 IMPOTENCE OF ORGANIC ORIGIN 07/14/2012 780.2 SYNCOPE AND COLLAPSE 07/14/2012 V65.42 COUNSELING - SMOKING CESSATION 07/14/2012 V70.0 ROUTINE GENERAL MEDICAL EXAMINATION AT A HEALTH CARE FACILITY 07/14/2012 368.8 OTHER SPECIFIED VISUAL DISTURBANCES 07/14/2012 607.84 IMPOTENCE OF ORGANIC ORIGIN 07/14/2012 780.2 SYNCOPE AND COLLAPSE 07/14/2012 V65.42 COUNSELING - SMOKING CESSATION 07/14/2012 V70.0 ROUTINE GENERAL MEDICAL EXAMINATION AT A HEALTH CARE FACILITY 07/14/2012 368.8 OTHER SPECIFIED VISUAL DISTURBANCES 07/14/2012 607.84 IMPOTENCE OF ORGANIC ORIGIN 07/14/2012 780.2 SYNCOPE AND COLLAPSE 07/14/2012 V65.42 COUNSELING - SMOKING CESSATION 07/14/2012 V70.0 ROUTINE GENERAL MEDICAL EXAMINATION AT A HEALTH CARE FACILITY 07/14/2012 368.8 OTHER SPECIFIED VISUAL DISTURBANCES 07/14/2012 607.84 IMPOTENCE OF ORGANIC ORIGIN 07/14/2012 780.2 SYNCOPE AND COLLAPSE 07/14/2012 V65.42 COUNSELING - SMOKING CESSATION 07/14/2012 V70.0 ROUTINE GENERAL MEDICAL EXAMINATION AT A HEALTH CARE FACILITY 07/14/2012 368.8 OTHER SPECIFIED VISUAL DISTURBANCES 07/14/2012 607.84 IMPOTENCE OF ORGANIC ORIGIN 07/14/2012 780.2 SYNCOPE AND COLLAPSE 07/14/2012 V65.42 COUNSELING - SMOKING CESSATION 07/14/2012 V70.0 ROUTINE GENERAL MEDICAL EXAMINATION AT A HEALTH CARE FACILITY 07/14/2012 368.8 OTHER SPECIFIED VISUAL DISTURBANCES 07/14/2012 607.84 IMPOTENCE OF ORGANIC ORIGIN 07/14/2012 780.2 SYNCOPE AND COLLAPSE 07/14/2012 V65.42 COUNSELING - SMOKING CESSATION 07/14/2012 V70.0 ROUTINE GENERAL MEDICAL EXAMINATION AT A HEALTH CARE FACILITY 07/14/2012 368.8 OTHER SPECIFIED VISUAL DISTURBANCES 07/14/2012 607.84 IMPOTENCE OF ORGANIC ORIGIN 07/14/2012 780.2 SYNCOPE AND COLLAPSE 07/14/2012 V65.42 COUNSELING - SMOKING CESSATION 07/14/2012 V70.0 ROUTINE GENERAL MEDICAL EXAMINATION AT A HEALTH CARE FACILITY 07/14/2012 RENETTA CARDOZA APRN 368.8 OTHER SPECIFIED VISUAL DISTURBANCES 07/14/2012 RENETTA CARDOZA APRN 607.84 IMPOTENCE OF ORGANIC ORIGIN 07/14/2012 RENETTA CARDOZA APRN 780.2 SYNCOPE AND COLLAPSE 07/14/2012 RENETTA CARDOZA APRN V65.42 COUNSELING - SMOKING CESSATION 07/14/2012 RENETTA CARDOZA APRN V70.0 ROUTINE GENERAL MEDICAL EXAMINATION AT A HEALTH CARE FACILITY 07/14/2012 BORJA DO BRANDEN K 368.8 OTHER SPECIFIED VISUAL DISTURBANCES 07/14/2012 BORJA DO BRANDEN K 607.84 IMPOTENCE OF ORGANIC ORIGIN 07/14/2012 BORJA DO BRANDEN K 780.2 SYNCOPE AND COLLAPSE 07/14/2012 BORJA DO, BRANDEN K V65.42 COUNSELING - SMOKING CESSATION 07/14/2012 BORJA DO, BRANDEN K V70.0 ROUTINE GENERAL MEDICAL EXAMINATION AT A HEALTH CARE FACILITY 07/14/2012 RENETTA CARDOZA APRN 368.8 OTHER SPECIFIED VISUAL DISTURBANCES 07/14/2012 RENETTA CARDOZA APRN 607.84 IMPOTENCE OF ORGANIC ORIGIN 07/14/2012 RENETTA CARDOZA APRN 780.2 SYNCOPE AND COLLAPSE 07/14/2012 RENETTA CARDOZA APRN V65.42 COUNSELING - SMOKING CESSATION 07/14/2012 RENETTA CARDOZA APRN V70.0 ROUTINE GENERAL MEDICAL EXAMINATION AT A HEALTH CARE FACILITY 07/14/2012 RENETTA CARDOZA APRN 368.8 OTHER SPECIFIED VISUAL DISTURBANCES 07/14/2012 RENETTA CARDOZA APRN 607.84 IMPOTENCE OF ORGANIC ORIGIN 07/14/2012 RENETTA CARDOZA APRN 780.2 SYNCOPE AND COLLAPSE 07/14/2012 RENETTA CARDOZA APRN V65.42 COUNSELING - SMOKING CESSATION 07/14/2012 RENETTA CARDOZA APRN V70.0 ROUTINE GENERAL MEDICAL EXAMINATION AT A HEALTH CARE FACILITY 07/14/2012 BORJA DO, BRANDEN K 368.8 OTHER SPECIFIED VISUAL DISTURBANCES 07/14/2012 BORJA DO, BRANDEN K 607.84 IMPOTENCE OF ORGANIC ORIGIN 07/14/2012 BORJA DO, BRANDEN K 780.2 SYNCOPE AND COLLAPSE 07/14/2012 BORJA DO, BRANDEN K V65.42 COUNSELING - SMOKING CESSATION 07/14/2012 BORJA DO, BRANDEN K V70.0 ROUTINE GENERAL MEDICAL EXAMINATION AT A HEALTH CARE FACILITY 07/14/2012 BORJA DO, BRANDEN K 368.8 OTHER SPECIFIED VISUAL DISTURBANCES 07/14/2012 BORJA DO, BRANDEN K 607.84 IMPOTENCE OF ORGANIC ORIGIN 07/14/2012 BORJA DO, BRANDEN K 780.2 SYNCOPE AND COLLAPSE 07/14/2012 BORJA DO, BRANDEN K V65.42 COUNSELING - SMOKING CESSATION 07/14/2012 BORJA DO, BRANDEN K V70.0 ROUTINE GENERAL MEDICAL EXAMINATION AT A HEALTH CARE FACILITY 07/14/2012 RENETTA CARDOZA APRN 368.8 OTHER SPECIFIED VISUAL DISTURBANCES 07/14/2012 RENETTA CARDOZA APRN 607.84 IMPOTENCE OF ORGANIC ORIGIN 07/14/2012 RENETTA CARDOZA APRN 780.2 SYNCOPE AND COLLAPSE 07/14/2012 RENETTA CARDOZA APRN V65.42 COUNSELING - SMOKING CESSATION 07/14/2012 RENETTA CARDOZA APRN V70.0 ROUTINE GENERAL MEDICAL EXAMINATION AT A HEALTH CARE FACILITY 07/14/2012 RENETTA CARDOZA APRN 368.8 OTHER SPECIFIED VISUAL DISTURBANCES 07/14/2012 RENETTA CARDOZA APRN 607.84 IMPOTENCE OF ORGANIC ORIGIN 07/14/2012 RENETTA CARDOZA APRN 780.2 SYNCOPE AND COLLAPSE 07/14/2012 RENETTA CARDOZA APRN V65.42 COUNSELING - SMOKING CESSATION 07/14/2012 RENETTA CARDOZA APRN V70.0 ROUTINE GENERAL MEDICAL EXAMINATION AT A HEALTH CARE FACILITY 07/14/2012 RENETTA CARDOZA APRN 368.8 OTHER SPECIFIED VISUAL DISTURBANCES 07/14/2012 RENETTA CARDOZA APRN 607.84 IMPOTENCE OF ORGANIC ORIGIN 07/14/2012 RENETTA CARDOZA APRN 780.2 SYNCOPE AND COLLAPSE 07/14/2012 RENETTA CARDOZA APRN V65.42 COUNSELING - SMOKING CESSATION 07/14/2012 RENETTA CARDOZA APRN V70.0 ROUTINE GENERAL MEDICAL EXAMINATION AT A HEALTH CARE FACILITY 07/14/2012 NANI MILLERRENETTA Ha 368.8 OTHER SPECIFIED VISUAL DISTURBANCES 07/14/2012 NANI MILLERRENETTA Ha 607.84 IMPOTENCE OF ORGANIC ORIGIN 07/14/2012 NANI FORGE OPERATORRENETTA Ha 780.2 SYNCOPE AND COLLAPSE 07/14/2012 NANI FORGE OPERATORRENETTA Ha V65.42 COUNSELING - SMOKING CESSATION 07/14/2012 NANI FORGE OPERATORRENETTA Ha V70.0 ROUTINE GENERAL MEDICAL EXAMINATION AT A HEALTH CARE FACILITY 07/14/2012 TUSHRA FORGE OPERATORFRANK Ha S 368.8 OTHER SPECIFIED VISUAL DISTURBANCES 07/14/2012 TUSHARAUGUSTUS MILLERN FRANK S 607.84 IMPOTENCE OF ORGANIC ORIGIN 07/14/2012 TUSHARAUGUSTUS MILLERLeland FRANK S 780.2 SYNCOPE AND COLLAPSE 07/14/2012 TUSHAR MILLERLeland FRANK S V65.42 COUNSELING - SMOKING CESSATION 07/14/2012 TUSHAR MILLERLeland FRANK S V70.0 ROUTINE GENERAL MEDICAL EXAMINATION AT A HEALTH CARE FACILITY 07/14/2012 BRANDEN BORJA DO K 368.8 OTHER SPECIFIED VISUAL DISTURBANCES 07/14/2012 VICENTE BORJA DOA K 607.84 IMPOTENCE OF ORGANIC ORIGIN 07/14/2012 JONH MYRICK BRANDEN K 780.2 SYNCOPE AND COLLAPSE 07/14/2012 VICENTE BORJA DOA K V65.42 COUNSELING - SMOKING CESSATION 07/14/2012 VICENTE BORJA DOA K V70.0 ROUTINE GENERAL MEDICAL EXAMINATION AT A HEALTH CARE FACILITY 07/14/2012 JENNA LOVING MD 368.8 OTHER SPECIFIED VISUAL DISTURBANCES 07/14/2012 JENNA LOVING MD 607.84 IMPOTENCE OF ORGANIC ORIGIN 07/14/2012 JENNA LOVING MD 780.2 SYNCOPE AND COLLAPSE 07/14/2012 JENNA LOVING MD V65.42 COUNSELING - SMOKING CESSATION 07/14/2012 JENNA LOVING MD V70.0 ROUTINE GENERAL MEDICAL EXAMINATION AT A HEALTH CARE FACILITY 07/14/2012 KAMRYN MATT MD 368.8 OTHER SPECIFIED VISUAL DISTURBANCES 07/14/2012 KAMRYN MATT MD 607.84 IMPOTENCE OF ORGANIC ORIGIN 07/14/2012 KAMRYN MATT MD 780.2 SYNCOPE AND COLLAPSE 07/14/2012 KAMRYN MATT MD V65.42 COUNSELING - SMOKING CESSATION 07/14/2012 KAMRYN MATT MD V70.0 ROUTINE GENERAL MEDICAL EXAMINATION AT A HEALTH CARE FACILITY 07/14/2012 KAMRYN MATT MD 368.8 OTHER SPECIFIED VISUAL DISTURBANCES 07/14/2012 KAMRYN MATT MD 607.84 IMPOTENCE OF ORGANIC ORIGIN 07/14/2012 KAMRYN MATT MD 780.2 SYNCOPE AND COLLAPSE 07/14/2012 KAMRYN MATT MD V65.42 COUNSELING - SMOKING CESSATION 07/14/2012 KAMRYN MATT MD V70.0 ROUTINE GENERAL MEDICAL EXAMINATION AT A HEALTH CARE FACILITY 07/14/2012 RENETTA CARDOZA APRN 368.8 OTHER SPECIFIED VISUAL DISTURBANCES 07/14/2012 RENETTA CARDOZA APRN 607.84 IMPOTENCE OF ORGANIC ORIGIN 07/14/2012 RENETTA CARDOZA APRN 780.2 SYNCOPE AND COLLAPSE 07/14/2012 RENETTA CARDOZA APRN V65.42 COUNSELING - SMOKING CESSATION 07/14/2012 RENETTA CARDOZA APRN V70.0 ROUTINE GENERAL MEDICAL EXAMINATION AT A HEALTH CARE FACILITY 07/14/2012 KAMRYN MATT MD 368.8 OTHER SPECIFIED VISUAL DISTURBANCES 07/14/2012 KAMRYN MATT MD 607.84 IMPOTENCE OF ORGANIC ORIGIN 07/14/2012 KAMRYN MATT MD 780.2 SYNCOPE AND COLLAPSE 07/14/2012 KAMRYN MATT MD V65.42 COUNSELING - SMOKING CESSATION 07/14/2012 KAMRYN MATT MD V70.0 ROUTINE GENERAL MEDICAL EXAMINATION AT A HEALTH CARE FACILITY 07/14/2012 KAMRYN MATT MD 368.8 OTHER SPECIFIED VISUAL DISTURBANCES 07/14/2012 KAMRYN MATT MD 607.84 IMPOTENCE OF ORGANIC ORIGIN 07/14/2012 KAMRYN MATT MD 780.2 SYNCOPE AND COLLAPSE 07/14/2012 KAMRYN MATT MD V65.42 COUNSELING - SMOKING CESSATION 07/14/2012 KAMRYN MATT MD V70.0 ROUTINE GENERAL MEDICAL EXAMINATION AT A HEALTH CARE FACILITY 07/14/2012 RENETTA CARDOZA APRN 368.8 OTHER SPECIFIED VISUAL DISTURBANCES 07/14/2012 RENETTA CARDOZA APRN 607.84 IMPOTENCE OF ORGANIC ORIGIN 07/14/2012 RENETTA CARDOZA APRN 780.2 SYNCOPE AND COLLAPSE 07/14/2012 RENETTA CARDOZA APRN V65.42 COUNSELING - SMOKING CESSATION 07/14/2012 RENETTA CARDOZA APRN V70.0 ROUTINE GENERAL MEDICAL EXAMINATION AT A HEALTH CARE FACILITY 07/14/2012 RENETTA CARDOZA APRN 368.8 OTHER SPECIFIED VISUAL DISTURBANCES 07/14/2012 RENETTA CARDOZA APRN 607.84 IMPOTENCE OF ORGANIC ORIGIN 07/14/2012 RENETTA CARDOZA APRN 780.2 SYNCOPE AND COLLAPSE 07/14/2012 RENETTA CARDOZA APRN V65.42 COUNSELING - SMOKING CESSATION 07/14/2012 RENETTA CARDOZA APRN V70.0 ROUTINE GENERAL MEDICAL EXAMINATION AT A HEALTH CARE FACILITY 07/14/2012 JENNA LOVING MD 368.8 OTHER SPECIFIED VISUAL DISTURBANCES 07/14/2012 JENNA LOVING MD 607.84 IMPOTENCE OF ORGANIC ORIGIN 07/14/2012 JENNA LOVING MD 780.2 SYNCOPE AND COLLAPSE 07/14/2012 JENNA LOVING MD V65.42 COUNSELING - SMOKING CESSATION 07/14/2012 JENNA LOVING MD V70.0 ROUTINE GENERAL MEDICAL EXAMINATION AT A HEALTH CARE FACILITY 07/14/2012 RENETTA CARDOZA APRN 368.8 OTHER SPECIFIED VISUAL DISTURBANCES 07/14/2012 RENETTA CARDOZA APRN 607.84 IMPOTENCE OF ORGANIC ORIGIN 07/14/2012 RENETTA CARDOZA APRN 780.2 SYNCOPE AND COLLAPSE 07/14/2012 RENETTA CARDOZA APRN V65.42 COUNSELING - SMOKING CESSATION 07/14/2012 RENETTA CARDOZA APRN V70.0 ROUTINE GENERAL MEDICAL EXAMINATION AT A HEALTH CARE FACILITY 07/14/2012 RENETTA CARDOZA APRN 368.8 OTHER SPECIFIED VISUAL DISTURBANCES 07/14/2012 RENETTA CARDOZA APRN 607.84 IMPOTENCE OF ORGANIC ORIGIN 07/14/2012 RENETTA CARDOZA APRN 780.2 SYNCOPE AND COLLAPSE 07/14/2012 RENETTA CARDOZA APRN V65.42 COUNSELING - SMOKING CESSATION 07/14/2012 RENETTA CARDOZA APRN V70.0 ROUTINE GENERAL MEDICAL EXAMINATION AT A HEALTH CARE FACILITY 08/13/2012 RENETTA CARDOZA APRN 276.51 DEHYDRATION 08/13/2012 RENETTA CARDOZA APRN 790.29 OTHER ABNORMAL GLUCOSE 08/13/2012 276.51 DEHYDRATION 08/13/2012 790.29 OTHER ABNORMAL GLUCOSE 08/13/2012 276.51 DEHYDRATION 08/13/2012 790.29 OTHER ABNORMAL GLUCOSE 08/13/2012 276.51 DEHYDRATION 08/13/2012 790.29 OTHER ABNORMAL GLUCOSE 08/13/2012 ERNESTINE ANDREW MD 276.51 DEHYDRATION 08/13/2012 ERNESTINE ANDREW MD 790.29 OTHER ABNORMAL GLUCOSE 08/13/2012 276.51 DEHYDRATION 08/13/2012 790.29 OTHER ABNORMAL GLUCOSE 08/13/2012 276.51 DEHYDRATION 08/13/2012 790.29 OTHER ABNORMAL GLUCOSE 08/13/2012 276.51 DEHYDRATION 08/13/2012 790.29 OTHER ABNORMAL GLUCOSE 08/13/2012 276.51 DEHYDRATION 08/13/2012 790.29 OTHER ABNORMAL GLUCOSE 08/13/2012 276.51 DEHYDRATION 08/13/2012 790.29 OTHER ABNORMAL GLUCOSE 08/13/2012 276.51 DEHYDRATION 08/13/2012 790.29 OTHER ABNORMAL GLUCOSE 08/13/2012 276.51 DEHYDRATION 08/13/2012 790.29 OTHER ABNORMAL GLUCOSE 08/13/2012 RENETTA CARDOZA APRN T 276.51 DEHYDRATION 08/13/2012 RENETTA CARDOZA APRN 790.29 OTHER ABNORMAL GLUCOSE 08/13/2012 BORJA DO, BRANDEN K 276.51 DEHYDRATION 08/13/2012 BORJA DO, BRANDEN K 790.29 OTHER ABNORMAL GLUCOSE 08/13/2012 RENETTA CARDOZA APRN T 276.51 DEHYDRATION 08/13/2012 RENETTA CARDOZA APRN T 790.29 OTHER ABNORMAL GLUCOSE 08/13/2012 RENTETA CARDOZA APRN T 276.51 DEHYDRATION 08/13/2012 RENETTA CARDOZA APRN T 790.29 OTHER ABNORMAL GLUCOSE 08/13/2012 BORJA DO, BRANDEN K 276.51 DEHYDRATION 08/13/2012 BORJA DO, BRANDEN K 790.29 OTHER ABNORMAL GLUCOSE 08/13/2012 BORJA DO, BRANDEN K 276.51 DEHYDRATION 08/13/2012 BORJA DO, BRANDEN K 790.29 OTHER ABNORMAL GLUCOSE 08/13/2012 RENETTA CARDOZA APRN T 276.51 DEHYDRATION 08/13/2012 RENETTA CARDOZA APRN T 790.29 OTHER ABNORMAL GLUCOSE 08/13/2012 RENETTA CARDOZA APRN T 276.51 DEHYDRATION 08/13/2012 RENETTA CARDOZA APRN T 790.29 OTHER ABNORMAL GLUCOSE 08/13/2012 RENETTA CARDOZA APRN T 276.51 DEHYDRATION 08/13/2012 RENETTA CARDOZA APRN T 790.29 OTHER ABNORMAL GLUCOSE 08/13/2012 RENETTA CARDOZA APRN T 276.51 DEHYDRATION 08/13/2012 RENETTA CARDOZA APRN 790.29 OTHER ABNORMAL GLUCOSE 08/13/2012 FRANK FINLEY APRN S 276.51 DEHYDRATION 08/13/2012 FRANK FINLEY APRN S 790.29 OTHER ABNORMAL GLUCOSE 08/13/2012 BORJA DO, BRANDEN K 276.51 DEHYDRATION 08/13/2012 BORJA DO, BRANDEN K 790.29 OTHER ABNORMAL GLUCOSE 08/13/2012 JENNA LOVING MD 276.51 DEHYDRATION 08/13/2012 JENNA LOVING MD 790.29 OTHER ABNORMAL GLUCOSE 08/13/2012 SHAKA ERAZO ALI 276.51 DEHYDRATION 08/13/2012 SHAKA ERAZO ALI 790.29 OTHER ABNORMAL GLUCOSE 08/13/2012 SHAKA ERAZO ALI 276.51 DEHYDRATION 08/13/2012 SHAKA ERAZO ALI 790.29 OTHER ABNORMAL GLUCOSE 08/13/2012 RENETTA CARDOZA APRN T 276.51 DEHYDRATION 08/13/2012 RENETTA CARDOZA APRN 790.29 OTHER ABNORMAL GLUCOSE 08/13/2012 SHAKA ERAZO ALI 276.51 DEHYDRATION 08/13/2012 SHAKA ERAZO ALI 790.29 OTHER ABNORMAL GLUCOSE 08/13/2012 SHAKA ERAZO ALI 276.51 DEHYDRATION 08/13/2012 SHAKA ERAZO ALI 790.29 OTHER ABNORMAL GLUCOSE 08/13/2012 RENETTA CARDOZA APRN 276.51 DEHYDRATION 08/13/2012 RENETTA CARDOZA APRN 790.29 OTHER ABNORMAL GLUCOSE 08/13/2012 RENETTA CARDOZA APRN 276.51 DEHYDRATION 08/13/2012 RENETTA CARDOZA APRN 790.29 OTHER ABNORMAL GLUCOSE 08/13/2012 JENNA LOVING MD 276.51 DEHYDRATION 08/13/2012 JENNA LOVING MD 790.29 OTHER ABNORMAL GLUCOSE 08/13/2012 RENETTA CARDOZA APRN T 276.51 DEHYDRATION 08/13/2012 RENETTA CARDOZA APRN 790.29 OTHER ABNORMAL GLUCOSE 08/13/2012 RENETTA CARDOZA APRN 276.51 DEHYDRATION 08/13/2012 RENETTA CARDOZA APRN 790.29 OTHER ABNORMAL GLUCOSE 08/21/2012 Ot 250.00 DIAB KEATON WO COMPL, TYPE II OR UNSPEC TY 08/21/2012 Ot 305.1 TOBACCO USE DISORDER 08/21/2012 Ot 780.09 OTHER ALTERATION OF CONSCIOUSNESS 08/21/2012 Ot 780.39 OTHER CONVULSIONS 08/22/2012 RENETTA CARDOZA APRN 345.90 SEIZURE DISORDER 08/22/2012 345.90 SEIZURE DISORDER 08/22/2012 345.90 SEIZURE DISORDER 08/22/2012 345.90 SEIZURE DISORDER 08/22/2012 ERNESTINE ANDREW MD 345.90 SEIZURE DISORDER 08/22/2012 345.90 SEIZURE DISORDER 08/22/2012 345.90 SEIZURE DISORDER 08/22/2012 345.90 SEIZURE DISORDER 08/22/2012 345.90 SEIZURE DISORDER 08/22/2012 345.90 SEIZURE DISORDER 08/22/2012 345.90 SEIZURE DISORDER 08/22/2012 345.90 SEIZURE DISORDER 08/22/2012 RENETTA CARDOZA APRN 345.90 SEIZURE DISORDER 08/22/2012 BORJA DO, BRANDEN K 345.90 SEIZURE DISORDER 08/22/2012 RENETTA CARDOZA APRN 345.90 SEIZURE DISORDER 08/22/2012 RENETTA CARDOZA APRN 345.90 SEIZURE DISORDER 08/22/2012 BORJA DO, BRANDEN K 345.90 SEIZURE DISORDER 08/22/2012 BORJA DO, BRANDEN K 345.90 SEIZURE DISORDER 08/22/2012 RENETTA CARDOZA APRN 345.90 SEIZURE DISORDER 08/22/2012 RENETTA CARDOZA APRN 345.90 SEIZURE DISORDER 08/22/2012 RENETTA CARDOZA APRN 345.90 SEIZURE DISORDER 08/22/2012 RENETTA CARDOZA APRN 345.90 SEIZURE DISORDER 08/22/2012 FRANK FINLEY APRN 345.90 SEIZURE DISORDER 08/22/2012 BORJA DO, BRANDEN K 345.90 SEIZURE DISORDER 08/22/2012 JENNA LOVING MD 345.90 SEIZURE DISORDER 08/22/2012 KAMRYN MATT MD 345.90 SEIZURE DISORDER 08/22/2012 KAMRYN MATT MD 345.90 SEIZURE DISORDER 08/22/2012 RENETTA CARDOZA APRN 345.90 SEIZURE DISORDER 08/22/2012 KAMRYN MATT MD 345.90 SEIZURE DISORDER 08/22/2012 KAMRYN MATT MD 345.90 SEIZURE DISORDER 08/22/2012 RENETTA CARDOZA APRN 345.90 SEIZURE DISORDER 08/22/2012 RENETTA CARDOZA APRN 345.90 SEIZURE DISORDER 08/22/2012 JENNA LOVING MD 345.90 SEIZURE DISORDER 08/22/2012 RENETTA CARDOZA APRN 345.90 SEIZURE DISORDER 08/22/2012 RENETTA CARDOZA APRN 345.90 SEIZURE DISORDER 09/21/2012 461.9 SINUSITIS ACUTE 09/21/2012 466.0 BRONCHITIS, ACUTE 09/21/2012 461.9 SINUSITIS ACUTE 09/21/2012 466.0 BRONCHITIS, ACUTE 09/21/2012 461.9 SINUSITIS ACUTE 09/21/2012 466.0 BRONCHITIS, ACUTE 09/21/2012 ERNESTINE ANDREW MD 461.9 SINUSITIS ACUTE 09/21/2012 ERNESTINE ANDREW MD 466.0 BRONCHITIS, ACUTE 09/21/2012 461.9 SINUSITIS ACUTE 09/21/2012 466.0 BRONCHITIS, ACUTE 09/21/2012 461.9 SINUSITIS ACUTE 09/21/2012 466.0 BRONCHITIS, ACUTE 09/21/2012 461.9 SINUSITIS ACUTE 09/21/2012 466.0 BRONCHITIS, ACUTE 09/21/2012 461.9 SINUSITIS ACUTE 09/21/2012 466.0 BRONCHITIS, ACUTE 09/21/2012 461.9 SINUSITIS ACUTE 09/21/2012 466.0 BRONCHITIS, ACUTE 09/21/2012 461.9 SINUSITIS ACUTE 09/21/2012 466.0 BRONCHITIS, ACUTE 09/21/2012 461.9 SINUSITIS ACUTE 09/21/2012 466.0 BRONCHITIS, ACUTE 09/21/2012 RENETTA CARDOZA APRN 461.9 SINUSITIS ACUTE 09/21/2012 RENETTA CARDOZA APRN 466.0 BRONCHITIS, ACUTE 09/21/2012 BORJA DO, BRANDEN K 461.9 SINUSITIS ACUTE 09/21/2012 BORJA DO, BRANDEN K 466.0 BRONCHITIS, ACUTE 09/21/2012 RENETTA CARDOZA APRN T 461.9 SINUSITIS ACUTE 09/21/2012 RENETTA CARDOZA APRN T 466.0 BRONCHITIS, ACUTE 09/21/2012 RENETTA CARDOZA APRN T 461.9 SINUSITIS ACUTE 09/21/2012 RENETTA CARDOZA APRN T 466.0 BRONCHITIS, ACUTE 09/21/2012 BORJA DO, BRANDEN K 461.9 SINUSITIS ACUTE 09/21/2012 BORJA DO, BRANDEN K 466.0 BRONCHITIS, ACUTE 09/21/2012 BORJA DO, BRANDEN K 461.9 SINUSITIS ACUTE 09/21/2012 BORJA DO, BRANDEN K 466.0 BRONCHITIS, ACUTE 09/21/2012 RENETTA CARDOZA APRN T 461.9 SINUSITIS ACUTE 09/21/2012 RENETTA CARDOZA APRN T 466.0 BRONCHITIS, ACUTE 09/21/2012 NANI FORRESTER RENETTA T 461.9 SINUSITIS ACUTE 09/21/2012 NANI MILLERN, RENETTA T 466.0 BRONCHITIS, ACUTE 09/21/2012 NANI FORRESTER, RENETTA T 461.9 SINUSITIS ACUTE 09/21/2012 NANI MILLERN, RENETTA T 466.0 BRONCHITIS, ACUTE 09/21/2012 NANI FORRESTER, RENETTA T 461.9 SINUSITIS ACUTE 09/21/2012 NANI FORRESTER, RENETTA T 466.0 BRONCHITIS, ACUTE 09/21/2012 TUSHAR FORGE OPERATOR, FRANK S 461.9 SINUSITIS ACUTE 09/21/2012 TUSHAR FORGE OPERATOR, FRANK S 466.0 BRONCHITIS, ACUTE 09/21/2012 BORJA DO, BRANDEN K 461.9 SINUSITIS ACUTE 09/21/2012 BORJA DO, BRANDEN K 466.0 BRONCHITIS, ACUTE 09/21/2012 JENNA LOVING MD 461.9 SINUSITIS ACUTE 09/21/2012 JENNA LOVING MD 466.0 BRONCHITIS, ACUTE 09/21/2012 SHAKA ERAZO, ALI 461.9 SINUSITIS ACUTE 09/21/2012 SHAKA ERAZO, ALI 466.0 BRONCHITIS, ACUTE 09/21/2012 SHAKA ERAZO, ALI 461.9 SINUSITIS ACUTE 09/21/2012 SHAKA ERAZO, ALI 466.0 BRONCHITIS, ACUTE 09/21/2012 RENETTA CARDOZA APRN T 461.9 SINUSITIS ACUTE 09/21/2012 NANI FORRESTER, RENETTA T 466.0 BRONCHITIS, ACUTE 09/21/2012 SHAKA ERAZO, ALI 461.9 SINUSITIS ACUTE 09/21/2012 SHAKA ERAZO, ALI 466.0 BRONCHITIS, ACUTE 09/21/2012 SHAKA ERAZO, ALI 461.9 SINUSITIS ACUTE 09/21/2012 SHAKA ERAZO, ALI 466.0 BRONCHITIS, ACUTE 09/21/2012 RENETTA CARDOZA APRN T 461.9 SINUSITIS ACUTE 09/21/2012 RENETTA CARDOZA APRN T 466.0 BRONCHITIS, ACUTE 09/21/2012 RENETTA CARDOZA APRN T 461.9 SINUSITIS ACUTE 09/21/2012 NANI FORRESTER, RENETTA T 466.0 BRONCHITIS, ACUTE 09/21/2012 JENNA LOVING MD 461.9 SINUSITIS ACUTE 09/21/2012 JENNA LOVING MD 466.0 BRONCHITIS, ACUTE 09/21/2012 RENETTA CARDOZA APRN T 461.9 SINUSITIS ACUTE 09/21/2012 RENETTA CARDOZA APRN 466.0 BRONCHITIS, ACUTE 09/21/2012 RENETTA CARDOZA APRN 461.9 SINUSITIS ACUTE 09/21/2012 NANI FORRESTER, RENETTA Berry 466.0 BRONCHITIS, ACUTE 10/31/2012 496 COPD 10/31/2012 496 COPD 10/31/2012 KAMRAN ERAZO, ERNESTINE 496 COPD 10/31/2012 496 COPD 10/31/2012 496 COPD 10/31/2012 496 COPD 10/31/2012 496 COPD 10/31/2012 496 COPD 10/31/2012 496 COPD 10/31/2012 496 COPD 10/31/2012 RENETTA CARDOZA APRN T 496 COPD 10/31/2012 BORJA DO, BRANDEN K 496 COPD 10/31/2012 RENETTA CARDOZA APRN T 496 COPD 10/31/2012 RENETTA CARDOZA APRN T 496 COPD 10/31/2012 BORJA DO, BRANDEN K 496 COPD 10/31/2012 BORJA DO, BRANDEN K 496 COPD 10/31/2012 RENETTA CARDOZA APRN T 496 CHRONIC OBSTRUCTIVE PULMONARY DISEASE 10/31/2012 RENETTA CARDOZA APRN T 496 CHRONIC OBSTRUCTIVE PULMONARY DISEASE 10/31/2012 RENETTA CARDOZA APRN T 496 CHRONIC OBSTRUCTIVE PULMONARY DISEASE 10/31/2012 RENETTA CARDOZA APRN T 496 CHRONIC OBSTRUCTIVE PULMONARY DISEASE 10/31/2012 FRANK FINLEY APRN 496 CHRONIC OBSTRUCTIVE PULMONARY DISEASE 10/31/2012 BORJA DO, BRANDEN K 496 CHRONIC OBSTRUCTIVE PULMONARY DISEASE 10/31/2012 JENNA LOVING MD 496 CHRONIC OBSTRUCTIVE PULMONARY DISEASE 10/31/2012 SHAKA ERAZO, ALI 496 CHRONIC OBSTRUCTIVE PULMONARY DISEASE 10/31/2012 SHAKA ERAZO, ALI 496 CHRONIC OBSTRUCTIVE PULMONARY DISEASE 10/31/2012 RENETTA CARDOZA APRN 496 CHRONIC OBSTRUCTIVE PULMONARY DISEASE 10/31/2012 SHAKA ERAZO, ALI 496 CHRONIC OBSTRUCTIVE PULMONARY DISEASE 10/31/2012 SHAKA ERAZO, ALI 496 CHRONIC OBSTRUCTIVE PULMONARY DISEASE 10/31/2012 RENETTA CARDOZA APRN T 496 CHRONIC OBSTRUCTIVE PULMONARY DISEASE 10/31/2012 RENETTA CARDOZA APRN T 496 CHRONIC OBSTRUCTIVE PULMONARY DISEASE 10/31/2012 JENNA LOVING MD6 CHRONIC OBSTRUCTIVE PULMONARY DISEASE 10/31/2012 RENETTA CARDOZA APRN 496 CHRONIC OBSTRUCTIVE PULMONARY DISEASE 10/31/2012 NANI FORGE OPERATOR, RENETTA T 496 CHRONIC OBSTRUCTIVE PULMONARY DISEASE 01/23/2013 486 PNEUMONIA UNSPECIFIED 01/23/2013 486 PNEUMONIA UNSPECIFIED 01/23/2013 486 PNEUMONIA UNSPECIFIED 01/23/2013 486 PNEUMONIA UNSPECIFIED 01/23/2013 486 PNEUMONIA UNSPECIFIED 01/23/2013 486 PNEUMONIA UNSPECIFIED 01/23/2013 486 PNEUMONIA UNSPECIFIED 01/23/2013 NANI FORGE OPERATOR, RENETTA T 486 PNEUMONIA UNSPECIFIED 01/23/2013 BORJA DO, BRANDEN K 486 PNEUMONIA UNSPECIFIED 01/23/2013 NANI FORGE OPERATOR, RENETTA T 486 PNEUMONIA UNSPECIFIED 01/23/2013 NANI FORGE OPERATOR, RENETTA T 486 PNEUMONIA UNSPECIFIED 01/23/2013 BORJA DO, BRANDEN K 486 PNEUMONIA UNSPECIFIED 01/23/2013 BORJA DO, BRANDEN K 486 PNEUMONIA UNSPECIFIED 01/23/2013 NANI FORGE OPERATOR, RENETTA T 486 PNEUMONIA UNSPECIFIED 01/23/2013 NANI FORGE OPERATOR, RENETTA T 486 PNEUMONIA UNSPECIFIED 01/23/2013 NANI FORGE OPERATOR, RENETTA T 486 PNEUMONIA UNSPECIFIED 01/23/2013 NANI FORGE OPERATOR, RENETTA T 486 PNEUMONIA UNSPECIFIED 01/23/2013 TUSHAR MILLERN, FRANK S 486 PNEUMONIA UNSPECIFIED 01/23/2013 BORJA DO, BRANDEN K 486 PNEUMONIA UNSPECIFIED 01/23/2013 FABIENNE ERAZO, JENNA 486 PNEUMONIA UNSPECIFIED 01/23/2013 SHAKA ERAZO, ALI 486 PNEUMONIA UNSPECIFIED 01/23/2013 SHAKA ERAZO, ALI 486 PNEUMONIA UNSPECIFIED 01/23/2013 NANI FORGE OPERATOR, RENETTA T 486 PNEUMONIA UNSPECIFIED 01/23/2013 SHAKA ERAZO, ALI 486 PNEUMONIA UNSPECIFIED 01/23/2013 SHAKA ERAZO, ALI 486 PNEUMONIA UNSPECIFIED 01/23/2013 NANI FORGE OPERATOR, RENETTA T 486 PNEUMONIA UNSPECIFIED 01/23/2013 NANI FORGE OPERATOR, RENETTA T 486 PNEUMONIA UNSPECIFIED 01/23/2013 FABIENNE ERAZO, JENNA 486 PNEUMONIA UNSPECIFIED 01/23/2013 NANI MILLERN, RENETTA T 486 PNEUMONIA UNSPECIFIED 01/23/2013 NANI MILLERN, RENETTA T 486 PNEUMONIA UNSPECIFIED 03/27/2013 780.57 SLEEP APNEA 03/27/2013 780.57 SLEEP APNEA 03/27/2013 780.57 SLEEP APNEA 03/27/2013 780.57 SLEEP APNEA 03/27/2013 780.57 SLEEP APNEA 03/27/2013 NANI MILLERN, RENETTA T 780.57 SLEEP APNEA 03/27/2013 BORJA DO, BRANDEN K 780.57 SLEEP APNEA 03/27/2013 RENETTA CARDOZA APRN T 780.57 SLEEP APNEA 03/27/2013 RENETTA CARDOZA APRN T 780.57 SLEEP APNEA 03/27/2013 VICENTE BORJA DOA K 780.57 SLEEP APNEA 03/27/2013 JONH MYRICK, BRANDEN K 780.57 SLEEP APNEA 03/27/2013 RENETTA CARDOZA APRN T 780.57 SLEEP APNEA 03/27/2013 RENETTA CARDOZA APRN 780.57 SLEEP APNEA 03/27/2013 RENETTA CARDOZA APRN T 780.57 SLEEP APNEA 03/27/2013 RENETTA CARDOZA APRN T 780.57 SLEEP APNEA 03/27/2013 TUSHAR FORRESTER FRANK S 780.57 SLEEP APNEA 03/27/2013 VICENTE BORJA DOA K 780.57 SLEEP APNEA 03/27/2013 JENNA LOVING MD 780.57 SLEEP APNEA 03/27/2013 SHAKA ERAZO, ALI 780.57 SLEEP APNEA 03/27/2013 SHAKA ERAZO, ALI 780.57 SLEEP APNEA 03/27/2013 RENETTA CARDOZA APRN T 780.57 SLEEP APNEA 03/27/2013 SHAKA ERAZO, ALI 780.57 SLEEP APNEA 03/27/2013 SHAKA ERAZO, ALI 780.57 SLEEP APNEA 03/27/2013 RENETTA CARDOZA APRN T 780.57 SLEEP APNEA 03/27/2013 RENETTA CARDOZA APRN T 780.57 SLEEP APNEA 03/27/2013 JENNA LOVING MD 780.57 SLEEP APNEA 03/27/2013 RENETTA CARDOZA APRN 780.57 SLEEP APNEA 03/27/2013 RENETTA CARDOZA APRN T 780.57 SLEEP APNEA 05/04/2013 RENETTA CARDOZA [employer] TALEO MANAGER Ot 327.23 OBSTRUCTIVE SLEEP APNEA (ADULT) (PEDIATR 05/27/2013 216.9 MOLE/NEVUS - SITE UNSPECIFIED 05/27/2013 216.9 MOLE/NEVUS - SITE UNSPECIFIED 05/27/2013 216.9 MOLE/NEVUS - SITE UNSPECIFIED 05/27/2013 RENETTA CARDOZA APRN 216.9 MOLE/NEVUS - SITE UNSPECIFIED 05/27/2013 BRANDEN BORJA DO K 216.9 MOLE/NEVUS - SITE UNSPECIFIED 05/27/2013 RENETTA CARDOZA APRN 216.9 MOLE/NEVUS - SITE UNSPECIFIED 05/27/2013 RENETTA CARDOZA APRN 216.9 MOLE/NEVUS - SITE UNSPECIFIED 05/27/2013 BORJA DO, BRANDEN K 216.9 MOLE/NEVUS - SITE UNSPECIFIED 05/27/2013 BORJA DO, BRANDEN K 216.9 MOLE/NEVUS - SITE UNSPECIFIED 05/27/2013 RENETTA CARDOZA APRN 216.9 MOLE/NEVUS - SITE UNSPECIFIED 05/27/2013 RENETTA CARDOZA APRN 216.9 MOLE/NEVUS - SITE UNSPECIFIED 05/27/2013 RENETTA CARDOZA APRN 216.9 MOLE/NEVUS - SITE UNSPECIFIED 05/27/2013 RENETTA CARDOZA APRN 216.9 MOLE/NEVUS - SITE UNSPECIFIED 05/27/2013 TUSHAR FORRESTER, FRANK S 216.9 MOLE/NEVUS - SITE UNSPECIFIED 05/27/2013 BORJA DO, BRANDEN K 216.9 MOLE/NEVUS - SITE UNSPECIFIED 05/27/2013 JENNA LOVING MD 216.9 MOLE/NEVUS - SITE UNSPECIFIED 05/27/2013 SHAKA ERAZO, KAMRYN 216.9 MOLE/NEVUS - SITE UNSPECIFIED 05/27/2013 SHAKA ERAZO, KAMRYN 216.9 MOLE/NEVUS - SITE UNSPECIFIED 05/27/2013 RENETTA CARDOZA APRN 216.9 MOLE/NEVUS - SITE UNSPECIFIED 05/27/2013 KAMRYN MATT MD 216.9 MOLE/NEVUS - SITE UNSPECIFIED 05/27/2013 SHAKA ERAZO, KAMRYN 216.9 MOLE/NEVUS - SITE UNSPECIFIED 05/27/2013 RENETTA CARDOZA APRN 216.9 MOLE/NEVUS - SITE UNSPECIFIED 05/27/2013 RENETTA CARDOZA APRN 216.9 MOLE/NEVUS - SITE UNSPECIFIED 05/27/2013 JENNA LOVING MD 216.9 MOLE/NEVUS - SITE UNSPECIFIED 05/27/2013 RENETTA CARDOZA APRN 216.9 MOLE/NEVUS - SITE UNSPECIFIED 05/27/2013 RENETTA CARDOZA APRN 216.9 MOLE/NEVUS - SITE UNSPECIFIED 07/08/2013 NIKHIL ERAZO, EFRAIN Harris Ot 784.0 HEADACHE 07/10/2013 724.2 BACK PAIN, LOWER 07/10/2013 784.0 HEADACHE 07/10/2013 RENETTA CARDOZA APRN 724.2 BACK PAIN, LOWER 07/10/2013 RENETTA CARDOZA APRN 784.0 HEADACHE 07/10/2013 BORJA DO, BRANDEN K 724.2 BACK PAIN, LOWER 07/10/2013 BORJA DO, BRANDEN K 784.0 HEADACHE 07/10/2013 RENETTA CARDOZA APRN T 724.2 BACK PAIN, LOWER 07/10/2013 NANI FORRESTER, RENETTA T 784.0 HEADACHE 07/10/2013 NANI FORRESTER, RENETTA T 724.2 BACK PAIN, LOWER 07/10/2013 RENETTA CARDOZA APRN T 784.0 HEADACHE 07/10/2013 BORJA DO, BRANDEN K 724.2 BACK PAIN, LOWER 07/10/2013 BORJA DO, BRANDEN K 784.0 HEADACHE 07/10/2013 BORJA DO, BRANDEN K 724.2 BACK PAIN, LOWER 07/10/2013 BORJA DO, BRANDEN K 784.0 HEADACHE 07/10/2013 RENETTA CARDOZA APRN T 724.2 BACK PAIN, LOWER 07/10/2013 RENETTA CARDOZA APRN T 784.0 HEADACHE 07/10/2013 RENETTA CARDOZA APRN T 724.2 BACK PAIN, LOWER 07/10/2013 RENETTA CARDOZA APRN T 784.0 HEADACHE 07/10/2013 NANI FORRESTER RENETTA T 724.2 BACK PAIN, LOWER 07/10/2013 NANI FORRESTER, RENETTA T 784.0 HEADACHE 07/10/2013 RENETTA CARDOZA APRN T 724.2 BACK PAIN, LOWER 07/10/2013 RENETTA CARDOZA APRN T 784.0 HEADACHE 07/10/2013 TUSHAR FORRESTER, FRANK S 724.2 BACK PAIN, LOWER 07/10/2013 TUSHAR FORRESTER, FRANK S 784.0 HEADACHE 07/10/2013 BORJA DO, BRANDEN K 724.2 BACK PAIN, LOWER 07/10/2013 BORJA DO, BRANDEN K 784.0 HEADACHE 07/10/2013 JENNA LOVING MD 724.2 BACK PAIN, LOWER 07/10/2013 JENNA LOVING MD 784.0 HEADACHE 07/10/2013 KAMRYN MATT MD 724.2 BACK PAIN, LOWER 07/10/2013 SHAKA ERAZO, KAMRYN 784.0 HEADACHE 07/10/2013 SHAKA ERAZO, KAMRYN 724.2 BACK PAIN, LOWER 07/10/2013 KAMRYN MATT MD 784.0 HEADACHE 07/10/2013 NANI FORGE OPERATOR, RENETTA T 724.2 BACK PAIN, LOWER 07/10/2013 NANI MILLERN, RENETTA T 784.0 HEADACHE 07/10/2013 SHAKA ERAZO, KAMRYN 724.2 BACK PAIN, LOWER 07/10/2013 SHAKA ERAZO, ALI 784.0 HEADACHE 07/10/2013 SHAKA ERAZO, KAMRYN 724.2 BACK PAIN, LOWER 07/10/2013 SHAKA ERAZO, ALI 784.0 HEADACHE 07/10/2013 NANI FORRESTER, RENETTA T 724.2 BACK PAIN, LOWER 07/10/2013 NANI MILLERN, RENETTA T 784.0 HEADACHE 07/10/2013 NANI MILLERN, RENETTA T 724.2 BACK PAIN, LOWER 07/10/2013 NANI FORRESTER, RENETTA T 784.0 HEADACHE 07/10/2013 JENNA LVOING MD 724.2 BACK PAIN, LOWER 07/10/2013 JENNA LOVING MD 784.0 HEADACHE 07/10/2013 NANI FORRESTER, RENETTA T 724.2 BACK PAIN, LOWER 07/10/2013 NANI FORRESTER, RENETTA T 784.0 HEADACHE 07/10/2013 NANI FORRESTER, RENETTA T 724.2 BACK PAIN, LOWER 07/10/2013 NANI FORRESTER, RENETTA T 784.0 HEADACHE 07/31/2013 NANI FORRESTER, RENETTA T 786.50 CHEST PAIN 07/31/2013 BORJA DO, BRANDEN K 786.50 CHEST PAIN 07/31/2013 NANI FORRESTER, RENETTA T 786.50 CHEST PAIN 07/31/2013 NANI FORRESTER RENETTA T 786.50 CHEST PAIN 07/31/2013 BORJA DO, BRANDEN K 786.50 CHEST PAIN 07/31/2013 BORJA DO, BRANDEN K 786.50 CHEST PAIN 07/31/2013 NANI FORRESTER RENETTA T 786.50 chest pain or discomfort 07/31/2013 NANI FORRESTER, RENETTA T 786.50 chest pain or discomfort 07/31/2013 NANI FORRESTER RENETTA T 786.50 chest pain or discomfort 07/31/2013 NANI FORRESTER RENETTA T 786.50 chest pain or discomfort 07/31/2013 FRANK FINLEY APRN 786.50 chest pain or discomfort 07/31/2013 BORJA DO, BRANDEN K 786.50 chest pain or discomfort 07/31/2013 JENNA LOVING MD 786.50 chest pain or discomfort 07/31/2013 KAMRYN MATT MD 786.50 chest pain or discomfort 07/31/2013 SHAKA ERAZO, KAMRYN 786.50 chest pain or discomfort 07/31/2013 RENETTA CARDOZA APRN T 786.50 chest pain or discomfort 07/31/2013 KAMRYN MATT MD 786.50 chest pain or discomfort 07/31/2013 KAMRYN MATT MD 786.50 chest pain or discomfort 07/31/2013 RENETTA CARDOZA APRN T 786.50 chest pain or discomfort 07/31/2013 NANI FORRESTER RENETTA T 786.50 chest pain or discomfort 07/31/2013 JENNA LOVING MD 786.50 chest pain or discomfort 07/31/2013 RENETTA CARDOZA APRN T 786.50 chest pain or discomfort 07/31/2013 RENETTA CARDOZA APRN T 786.50 chest pain or discomfort 09/18/2013 BORJA DO, BRANDEN K 401.0 HYPERTENSION MALIGNANT ESSENTIAL 09/18/2013 RENETTA CARDOZA APRN T 401.0 HYPERTENSION MALIGNANT ESSENTIAL 09/18/2013 RENETTA CARDOZA APRN T 401.0 HYPERTENSION MALIGNANT ESSENTIAL 09/18/2013 BORJA DO, BRANDEN K 401.0 HYPERTENSION MALIGNANT ESSENTIAL 09/18/2013 BORJA DO, BRANDEN K 401.0 HYPERTENSION MALIGNANT ESSENTIAL 09/18/2013 NANI FORRESTER RENETTA T 401.0 HYPERTENSION MALIGNANT ESSENTIAL 09/18/2013 RENETTA CARDOZA APRN T 401.0 HYPERTENSION MALIGNANT ESSENTIAL 09/18/2013 RENETTA CARDOZA APRN T 401.0 HYPERTENSION MALIGNANT ESSENTIAL 09/18/2013 NANI FORRESTER RENETTA T 401.0 HYPERTENSION MALIGNANT ESSENTIAL 09/18/2013 TUSHARAUGUSTUS FORRESTER FRANK S 401.0 HYPERTENSION MALIGNANT ESSENTIAL 09/18/2013 BORJA DO, BRANDEN K 401.0 HYPERTENSION MALIGNANT ESSENTIAL 09/18/2013 JENNA LOVING MD 401.0 HYPERTENSION MALIGNANT ESSENTIAL 09/18/2013 KAMRYN MATT MD 401.0 HYPERTENSION MALIGNANT ESSENTIAL 09/18/2013 KAMRYN MATT MD 401.0 HYPERTENSION MALIGNANT ESSENTIAL 09/18/2013 RENETTA CARDOZA APRN T 401.0 HYPERTENSION MALIGNANT ESSENTIAL 09/18/2013 KAMRYN MATT MD 401.0 HYPERTENSION MALIGNANT ESSENTIAL 09/18/2013 KAMRYN MATT MD 401.0 HYPERTENSION MALIGNANT ESSENTIAL 09/18/2013 RENETTA CARDOZA APRN T 401.0 HYPERTENSION MALIGNANT ESSENTIAL 09/18/2013 RENETTA CARDOZA APRN T 401.0 HYPERTENSION MALIGNANT ESSENTIAL 09/18/2013 JENNA LOVING MD 401.0 HYPERTENSION MALIGNANT ESSENTIAL 09/18/2013 RENETTA CARDOZA APRN 401.0 HYPERTENSION MALIGNANT ESSENTIAL 09/18/2013 RENETTA CARDOZA APRN 401.0 HYPERTENSION MALIGNANT ESSENTIAL 10/01/2013 SHAKA ERAZO [facility], ALI FACP CCDS Ot 272.1 PURE HYPERGLYCERIDEMIA 10/01/2013 SHAKA ERAZO FAC, ALI FACP CCDS Ot 305.1 TOBACCO USE DISORDER 10/01/2013 SHAKA ERAZO FACC, ALI FACP CCDS Ot 345.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 10/01/2013 SHAKA ERAZO FACC, ALI FACP CCDS Ot 401.9 HYPERTENSION NOS 10/01/2013 SHAKA ERAZO FACC, ALI FACP CCDS Ot 414.01 CORONARY ATHEROSCLEROSIS OF COUNCIL CORON 10/01/2013 SHAKA ERAZO FACC, ALI FACP CCDS Ot 496 CHR AIRWAY OBSTRUCT NEC 10/01/2013 SHAKA ERAZO FACC, ALI FACP CCDS Ot 780.57 UNSPECIFIED SLEEP APNEA 10/01/2013 SHAKA ERAZO FAC, ALI FACP CCDS Ot 786.59 CHEST PAIN NEC 10/01/2013 SHAKA ERAZO [facility], ALI FACP CCDS Ot V17.3 FAM HX-ISCHEM HEART DIS 10/01/2013 SHAKA ERAZO [facility], ALI FACP CCDS Ot V58.69 OTH MED,LT,CURRENT USE 10/21/2013 RENETTA CARDOZA APRN V74.5 STD SCREEN 10/21/2013 RENETTA CARDOZA APRN V74.5 STD SCREEN 10/21/2013 JONH MYRICK BRANDEN K V74.5 STD SCREEN 10/21/2013 JONH MYRICK BRANDEN K V74.5 STD SCREEN 10/21/2013 RENETTA CARDOZA APRN V74.5 STD SCREEN 10/21/2013 RENETTA CARDOZA APRN V74.5 STD SCREEN 10/21/2013 RENETTA CARDOZA APRN V74.5 STD SCREEN 10/21/2013 RENETTA CARDOZA APRN V74.5 STD SCREEN 10/21/2013 FRANK FINLEY APRN V74.5 STD SCREEN 10/21/2013 JONH MYRICK BRANDEN K V74.5 STD SCREEN 10/21/2013 JENNA LOVING MD V74.5 STD SCREEN 10/21/2013 KAMRYN MATT MD V74.5 STD SCREEN 10/21/2013 KAMRYN MATT MD V74.5 STD SCREEN 10/21/2013 NANI FORRESTER, RENETTA T V74.5 STD SCREEN 10/21/2013 SHAKA ERAZO, KAMRYN V74.5 STD SCREEN 10/21/2013 SHAKA ERAZO, KAMRYN V74.5 STD SCREEN 10/21/2013 NANI FORRESTER, RENETTA T V74.5 STD SCREEN 10/21/2013 NANI FORRESTER, RENETTA T V74.5 STD SCREEN 10/21/2013 JENAN LOVING MD V74.5 STD SCREEN 10/21/2013 NANI FORRESTER, RENETTA T V74.5 STD SCREEN 10/21/2013 NANI FORRESTER, RENETTA T V74.5 STD SCREEN 12/04/2013 BORJA DO, BRANDEN K 414.00 CAD 12/04/2013 BORJA DO, BRANDEN K 786.09 DYSPNEA 12/04/2013 BORJA DO, BRANDEN K 414.00 CAD 12/04/2013 BORJA DO, BRANDEN K 786.09 DYSPNEA 12/04/2013 NANI FORRESTER RENETTA T 414.00 CORONARY ARTERY DISEASE 12/04/2013 NANI FORRESTER RENETTA T 786.09 difficulty breathing (dyspnea) 12/04/2013 NANI FORRESTER RENETTA T 414.00 CORONARY ARTERY DISEASE 12/04/2013 NANI FORRESTER RENETTA T 786.09 difficulty breathing (dyspnea) 12/04/2013 NANI FORRESTER RENETTA T 414.00 CORONARY ARTERY DISEASE 12/04/2013 NANI FORRESTER RENETTA T 786.09 difficulty breathing (dyspnea) 12/04/2013 NANI FORRESTER RENETTA T 414.00 CORONARY ARTERY DISEASE 12/04/2013 RENETTA CARDOZA APRN T 786.09 difficulty breathing (dyspnea) 12/04/2013 TUSHAR FORRESTER FRANK S 414.00 CORONARY ARTERY DISEASE 12/04/2013 TUSHAR FORRESTER FRANK S 786.09 difficulty breathing (dyspnea) 12/04/2013 BORJA DO, BRANDEN K 414.00 CORONARY ARTERY DISEASE 12/04/2013 BORJA DO, BRANDEN K 786.09 difficulty breathing (dyspnea) 12/04/2013 JENNA LOVING MD 414.00 CORONARY ARTERY DISEASE 12/04/2013 JENNA LOVING MD 786.09 difficulty breathing (dyspnea) 12/04/2013 KAMRYN MATT MD 414.00 CORONARY ARTERY DISEASE 12/04/2013 KAMRYN MATT MD 786.09 difficulty breathing (dyspnea) 12/04/2013 SHAKA ERAZO, ALI 414.00 CORONARY ARTERY DISEASE 12/04/2013 SHAKA ERAZO, ALI 786.09 difficulty breathing (dyspnea) 12/04/2013 NANI FORRESTER RENETTA T 414.00 CORONARY ARTERY DISEASE 12/04/2013 NANI FORRESTER, RENETTA T 786.09 difficulty breathing (dyspnea) 12/04/2013 SHAKA ERAZO, ALI 414.00 CORONARY ARTERY DISEASE 12/04/2013 SHAKA ERAZO, ALI 786.09 difficulty breathing (dyspnea) 12/04/2013 SHAKA ERAZO, ALI 414.00 CORONARY ARTERY DISEASE 12/04/2013 SHAKA ERAZO, ALI 786.09 difficulty breathing (dyspnea) 12/04/2013 NANI FORRESTER RENETTA T 414.00 CORONARY ARTERY DISEASE 12/04/2013 RENETTA CARDOZA APRN T 786.09 difficulty breathing (dyspnea) 12/04/2013 NANI FORRESTER RENETTA T 414.00 CORONARY ARTERY DISEASE 12/04/2013 RENETTA CARDOZA APRN T 786.09 difficulty breathing (dyspnea) 12/04/2013 JENNA LOVING MD 414.00 CORONARY ARTERY DISEASE 12/04/2013 JENNA LOVING MD 786.09 difficulty breathing (dyspnea) 12/04/2013 RENETTA CARDOZA APRN T 414.00 CORONARY ARTERY DISEASE 12/04/2013 RENETTA CARDOZA APRN T 786.09 difficulty breathing (dyspnea) 12/04/2013 NANI FORRESTER RENETTA T 414.00 CORONARY ARTERY DISEASE 12/04/2013 NANI FORRESTER RENETTA T 786.09 DIFFICULTY BREATHING (DYSPNEA) 03/25/2014 RENETTA CARDOZA APRN T 278.00 OBESITY 03/25/2014 RENETTA CARDOZA APRN T 701.9 SKIN TAG 03/25/2014 NANI FORRESTER RENETTA T 278.00 OBESITY 03/25/2014 NANI FORRESTER RENETTA T 701.9 SKIN TAG 03/25/2014 RENETTA CARDOZA APRN T 278.00 OBESITY 03/25/2014 RENETTA CARDOZA APRN T 701.9 SKIN TAG 03/25/2014 NANI FORRESTER RENETTA T 278.00 OBESITY 03/25/2014 NANI FORRESTER, RENETTA T 701.9 SKIN TAG 03/25/2014 FRANK FINLEY APRN S 278.00 OBESITY 03/25/2014 CORNELIA FINLEY APRNA S 701.9 SKIN TAG 03/25/2014 BRANDEN BORJA DO 278.00 OBESITY 03/25/2014 JONH MYRICK BRANDEN K 701.9 SKIN TAG 03/25/2014 FABIENNE ERAZO, JENNA 278.00 OBESITY 03/25/2014 JENNA LOVING MD 701.9 SKIN TAG 03/25/2014 SHAKA ERAZO, KAMRYN 278.00 OBESITY 03/25/2014 SHAKA ERAZO, KAMRYN 701.9 SKIN TAG 03/25/2014 SHAKA ERAZO, ALI 278.00 OBESITY 03/25/2014 SHAKA ERAZO, KAMRYN 701.9 SKIN TAG 03/25/2014 RENETTA CARDOZA APRN T 278.00 OBESITY 03/25/2014 NANI FORRESTER RENETTA T 701.9 SKIN TAG 03/25/2014 SHAKA ERAZO, ALI 278.00 OBESITY 03/25/2014 SHAKA ERAZO, KAMRYN 701.9 SKIN TAG 03/25/2014 SHAKA ERAZO, KAMRYN 278.00 OBESITY 03/25/2014 SHAKA ERAZO, KAMRYN 701.9 SKIN TAG 03/25/2014 RENETTA CARDOZA APRN T 278.00 OBESITY 03/25/2014 RENETTA CARDOZA APRN T 701.9 SKIN TAG 03/25/2014 RENETTA CARDOZA APRN T 278.00 OBESITY 03/25/2014 RENETTA CARDOZA APRN T 701.9 SKIN TAG 03/25/2014 JENNA LOVING MD 278.00 OBESITY 03/25/2014 JENNA LOVING MD 701.9 SKIN TAG 03/25/2014 RENETTA CARDOZA APRN T 278.00 OBESITY 03/25/2014 RENETTA CARDOZA APRN T 701.9 SKIN TAG 03/25/2014 RENETTA CARDOZA APRN T 278.00 OBESITY 03/25/2014 RENETTA CARDOZA APRN T 701.9 SKIN TAG 04/16/2014 RENETTA CARDOZA APRN T 305.1 TOBACCO ABUSE 04/16/2014 RENETTA CARDOZA APRN T 305.1 TOBACCO ABUSE 04/16/2014 FRANK FINLEY APRN 305.1 TOBACCO ABUSE 04/16/2014 BRANDEN BORJA DO 305.1 TOBACCO ABUSE 04/16/2014 JENNA LOVING MD 305.1 TOBACCO ABUSE 04/16/2014 KAMRYN MATT MD 305.1 TOBACCO ABUSE 04/16/2014 KAMRYN MATT MD 305.1 TOBACCO ABUSE 04/16/2014 RENETTA CARDOZA APRN T 305.1 TOBACCO ABUSE 04/16/2014 KAMRYN MATT MD 305.1 TOBACCO ABUSE 04/16/2014 KAMRYN MATT MD 305.1 TOBACCO ABUSE 04/16/2014 RENETTA CARDOZA APRN 305.1 TOBACCO ABUSE 04/16/2014 RENETTA CARDOZA APRN 305.1 TOBACCO ABUSE 04/16/2014 JENNA LOVING MD 305.1 TOBACCO ABUSE 04/16/2014 RENETTA CARDOZA APRN 305.1 TOBACCO ABUSE 04/16/2014 RENETTA CARDOZA APRN 305.1 TOBACCO ABUSE 04/21/2014 RENETTA CARDOZA APRN 780.79 fatigue 04/21/2014 RENETTA CARDOZA APRN 780.79 fatigue 04/21/2014 FRANK FINLEY APRN 780.79 fatigue 04/21/2014 BRANDEN BORJA DO 780.79 fatigue 04/21/2014 JENNA LOVING MD 780.79 fatigue 04/21/2014 KAMRYN MATT MD 780.79 fatigue 04/21/2014 KAMRYN MATT MD 780.79 fatigue 04/21/2014 RENETTA CARDOZA APRN 780.79 fatigue 04/21/2014 KAMRYN MATT MD 780.79 fatigue 04/21/2014 KAMRYN MATT MD 780.79 fatigue 04/21/2014 RENETTA CARDOZA APRN 780.79 fatigue 04/21/2014 RENETTA CARDOZA APRN 780.79 fatigue 04/21/2014 JENNA LOVING MD 780.79 fatigue 04/21/2014 RENETTA CARDOZA APRN 780.79 fatigue 04/21/2014 RENETTA CARDOZA APRN 780.79 fatigue 05/22/2014 FRANK FINLEY APRN 782.3 EDEMA 05/22/2014 BRANDEN BORJA DO K 782.3 EDEMA 05/22/2014 JENNA LOVING MD 782.3 EDEMA 05/22/2014 KAMRYN MATT MD 782.3 EDEMA 05/22/2014 KAMRYN MATT MD 782.3 EDEMA 05/22/2014 RENETTA CARDOZA APRN 782.3 EDEMA 05/22/2014 KAMRYN MATT MD 782.3 EDEMA 05/22/2014 KAMRYN MATT MD 782.3 EDEMA 05/22/2014 RENETTA CARDOZA APRN 782.3 EDEMA 05/22/2014 RENETTA CARDOZA APRN 782.3 EDEMA 05/22/2014 JENNA LOVING MD 782.3 EDEMA 05/22/2014 ERNETTA CARDOZA APRN 782.3 EDEMA 05/22/2014 RENETTA CARDOZA APRN 782.3 EDEMA 06/04/2014 BORJA DO, BRANDEN K 780.2 SYNCOPE 06/04/2014 BORJA DO, BRANDEN K 785.1 PALPITATIONS 06/04/2014 BORJA DO, BRANDEN K 786.05 SHORTNESS OF BREATH 06/04/2014 JENNA LOVING MD 780.2 SYNCOPE 06/04/2014 JENNA LOVING MD 785.1 PALPITATIONS 06/04/2014 JENNA LOVING MD 786.05 SHORTNESS OF BREATH 06/04/2014 SHAKA ERAZO, KAMRYN 780.2 SYNCOPE 06/04/2014 SHAKA ERAZO, ALI 785.1 PALPITATIONS 06/04/2014 SHAKA ERAZO, ALI 786.05 SHORTNESS OF BREATH 06/04/2014 SHAKA ERAZO ALI 780.2 SYNCOPE 06/04/2014 SHAKA ERAZO, ALI 785.1 PALPITATIONS 06/04/2014 SHAKA ERAZO, ALI 786.05 SHORTNESS OF BREATH 06/04/2014 RENETTA CARDOZA APRN 780.2 SYNCOPE 06/04/2014 RENETTA CARDOZA APRN 785.1 PALPITATIONS 06/04/2014 RENETTA CARDOZA APRN 786.05 SHORTNESS OF BREATH 06/04/2014 SHAKA ERAZO, ALI 780.2 SYNCOPE 06/04/2014 SHAKA ERAZO, ALI 785.1 PALPITATIONS 06/04/2014 SHAKA ERAZO ALI 786.05 SHORTNESS OF BREATH 06/04/2014 SHAKA ERAZO, ALI 780.2 SYNCOPE 06/04/2014 SHAKA ERAZO ALI 785.1 PALPITATIONS 06/04/2014 SHAKA ERAZO ALI 786.05 SHORTNESS OF BREATH 06/04/2014 RENETTA CARDOZA APRN 780.2 SYNCOPE 06/04/2014 RENETTA CARDOZA APRN 785.1 PALPITATIONS 06/04/2014 RENETTA CARDOZA APRN 786.05 SHORTNESS OF BREATH 06/04/2014 RENETTA CARDOZA APRN 780.2 SYNCOPE 06/04/2014 RENETTA CARDOZA APRN 785.1 PALPITATIONS 06/04/2014 RENETTA CARDOZA APRN 786.05 SHORTNESS OF BREATH 06/04/2014 JENNA LOVING MD 780.2 SYNCOPE 06/04/2014 JENNA LOVING MD 785.1 PALPITATIONS 06/04/2014 JENNA LOVING MD 786.05 SHORTNESS OF BREATH 06/04/2014 RENETTA CARDOZA APRN 780.2 SYNCOPE 06/04/2014 RENETTA CARDOZA APRN 785.1 PALPITATIONS 06/04/2014 RENETTA CARDOZA APRN 786.05 SHORTNESS OF BREATH 06/04/2014 RENETTA CARDOZA APRN 780.2 SYNCOPE 06/04/2014 RENETTA CARDOZA APRN 785.1 PALPITATIONS 06/04/2014 RENETTA CARDOZA APRN 786.05 SHORTNESS OF BREATH 06/06/2014 ROMA STRICKLAND FORGE OPERATOR Ot 729.89 MUSCSKEL SYMPT LIMB NEC 06/06/2014 ROMA STRICKLAND FORGE OPERATOR Ot 780.2 SYNCOPE AND COLLAPSE 06/06/2014 ROMA STRICKLAND FORGE OPERATOR Ot 796.0 ABN TOXICOLOGIC FINDING 06/17/2014 ELIS VICTOR [employer] MA[employer]GER Ot 780.2 SYNCOPE AND COLLAPSE 06/17/2014 ELIS VICTOR [employer] MANAGER Ot 785.1 PALPITATIONS 06/17/2014 ELIS VICTOR [employer] MANAGER Ot 786.05 SHORTNESS OF BREATH 06/17/2014 ELIS VICTOR [employer] MANAGER Ot 786.50 CHEST PAIN NOS 07/22/2014 SHAKA ERAZO FACC, KAMRYN FACP CCDS Ot 272.4 HYPERLIPIDEMIA NEC/NOS 07/22/2014 SHAKA ERAZO FACC, KAMRYN FACP CCDS Ot 305.1 TOBACCO USE DISORDER 07/22/2014 SHAKA ERAZO FACC, KAMRYN FACP CCDS Ot 345.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 07/22/2014 KAMRYN MATT MD, FACC FACP CCDS Ot 414.01 CORONARY ATHEROSCLEROSIS OF COUNCIL CORON 07/22/2014 KAMRYN MATT MD, FACC FACP CCDS Ot 414.4 CORONARY ATHEROSCLEROSIS DUE TO CALCIFIE 07/22/2014 KAMRYN MATT MD, FACC FACP CCDS Ot 496 CHR AIRWAY OBSTRUCT NEC 07/22/2014 KAMRYN MATT MD, FACC FACP CCDS Ot 780.2 SYNCOPE AND COLLAPSE 07/22/2014 KAMRYN MATT MD, FACC FACP CCDS Ot 780.57 UNSPECIFIED SLEEP APNEA 07/22/2014 KAMRYN MATT MD, FACC FACP CCDS Ot 785.1 PALPITATIONS 07/22/2014 SHAKA MD FACC, ALI FACP CCDS Ot 786.59 CHEST PAIN NEC 07/22/2014 SHAKA ERAZO FACC, ALI FACP CCDS Ot V58.69 OT MED,LT,CURRENT USE 09/04/2014 BAIELIS RASHID [employer] MANAGER Ot 780.2 SYNCOPE AND COLLAPSE 09/04/2014 ELIS VICTOR [employer] MANAGER Ot 785.1 PALPITATIONS 09/04/2014 BAIELIS RASHID [employer] MANAGER Ot 786.05 SHORTNESS OF BREATH 09/04/2014 BAIELIS RASHID [employer] MANAGER Ot 786.50 CHEST PAIN NOS 09/11/2014 RENETTA CARDOZA [employer] MANAGER Ot 345.90 10/09/2014 JENNA LOVING MD 924.9 CONTUSION OF UNSPECIFIED SITE 10/09/2014 RENETTA CARDOZA APRN 924.9 CONTUSION OF UNSPECIFIED SITE 10/09/2014 RENETTA CARDOZA APRN 924.9 CONTUSION OF UNSPECIFIED SITE 10/14/2014 Ot 345.90 10/14/2014 SHAKA ERAZO FACC, KAMRYN FACP CCDS Ot 786.05 10/14/2014 SHAKA REESC, ALI FACP CCDS Ot 786.50 10/14/2014 SHAKA ERAZO FACC, ALI FACP CCDS Ot 414.00 10/14/2014 SHAKA ERAZO FACC, ALI FACP CCDS Ot 496 10/14/2014 SHAKA ERAZO FACC, ALI FACP CCDS Ot 786.09 10/14/2014 SHAKA ERAZO FACC, ALI FACP CCDS Ot 786.50 10/14/2014 RENETTA CARDOZA [employer] MANAGER Ot 345.90 10/14/2014 Ot 780.2 10/14/2014 Ot 785.1 10/14/2014 Ot 786.05 10/14/2014 Ot 786.50 10/16/2014 Ot 345.90 10/16/2014 SHAKA REESC, ALI FACP CCDS Ot 786.05 10/16/2014 SHAKA REESC, ALI FACP CCDS Ot 786.50 10/16/2014 SHAKA REESC, ALI FACP CCDS Ot 414.00 10/16/2014 SHAKA REESC, ALI FACP CCDS Ot 496 10/16/2014 SHAKA REESC, ALI FACP CCDS Ot 786.09 10/16/2014 SHAKA REESC, ALI FACP CCDS Ot 786.50 10/16/2014 RENETTA CARDOZA [employer] MANAGER Ot 345.90 10/16/2014 Ot 780.2 10/16/2014 Ot 785.1 10/16/2014 Ot 786.05 10/16/2014 Ot 786.50 10/19/2014 Ot 345.90 10/19/2014 SHAKA ERAZO FACC, ALI FACP CCDS Ot 786.05 10/19/2014 SHAKA ERAZO FACC, ALI FACP CCDS Ot 786.50 10/19/2014 SHAKA ERAZO FACC, ALI FACP CCDS Ot 414.00 10/19/2014 SHAKA ERAZO FACC, ALI FACP CCDS Ot 496 10/19/2014 SHAKA ERAZO FACC, ALI FACP CCDS Ot 786.09 10/19/2014 SHAKA REESC, ALI FACP CCDS Ot 786.50 10/19/2014 RENETTA CARDOZA [employer] MANAGER Ot 345.90 10/19/2014 Ot 780.2 10/19/2014 Ot 785.1 10/19/2014 Ot 786.05 10/19/2014 Ot 786.50 11/24/2014 RENETTA CARDOZA APRN 465.9 UPPER RESPIRATORY INFECTION 11/24/2014 RENETTA CARDOZA APRN 682.9 CELLULITIS AND ABSCESS OF UNSPECIFIED SITES 11/24/2014 RENETTA CARDOZA APRN V16.3 FAMILY HISTORY OF MALIGNANT NEOPLASM OF BREAST 11/27/2014 Ot 345.90 11/27/2014 SHAKA REESC, ALI FACP CCDS Ot 786.05 11/27/2014 SHAKA ERAZO FACC, ALI FACP CCDS Ot 786.50 11/27/2014 SHAKA REESC, ALI FACP CCDS Ot 414.00 11/27/2014 SHAKA REESC, ALI FACP CCDS Ot 496 11/27/2014 SHAKA ERAZO FACC, ALI FACP CCDS Ot 786.09 11/27/2014 SHAKA REESC, ALI FACP CCDS Ot 786.50 11/27/2014 RENETTA CARDOZA [employer] MANAGER Ot 345.90 11/27/2014 Ot 780.2 11/27/2014 Ot 785.1 11/27/2014 Ot 786.05 11/27/2014 Ot 786.50 12/01/2014 Ot 345.90 12/01/2014 SHAKA ERAZO FACC, ALI FACP CCDS Ot 786.05 12/01/2014 SHAKA ERAZO FACC, ALI FACP CCDS Ot 786.50 12/01/2014 SHAKA ERAZO FACC, ALI FACP CCDS Ot 414.00 12/01/2014 SHAKA ERAZO FACC, ALI FACP CCDS Ot 496 12/01/2014 SHAKA ERAZO FACC, ALI FACP CCDS Ot 786.09 12/01/2014 SHAKA ERAZO FACC, ALI FACP CCDS Ot 786.50 12/01/2014 RENETTA CARDOZA [employer] MANAGER Ot 345.90 12/01/2014 Ot 780.2 12/01/2014 Ot 785.1 12/01/2014 Ot 786.05 12/01/2014 Ot 786.50 12/11/2014 Ot 345.90 12/11/2014 SHAKA ERAZO FACC, ALI FACP CCDS Ot 786.05 12/11/2014 SHAKA ERAZO FACC, ALI FACP CCDS Ot 786.50 12/11/2014 SHAKA ERAZO FACC, ALI FACP CCDS Ot 414.00 12/11/2014 SHAKA ERAZO FACC, ALI FACP CCDS Ot 496 12/11/2014 SHAKA ERAZO FACC, ALI FACP CCDS Ot 786.09 12/11/2014 SHAKA ERAZO FACC, ALI FACP CCDS Ot 786.50 12/11/2014 RENETTA CARDOZA Ot 345.90 12/11/2014 Ot 780.2 12/11/2014 Ot 785.1 12/11/2014 Ot 786.05 12/11/2014 Ot 786.50 2014 RENETTA CARDOZA Ot 611.72 2014 RENETTA CARDOZA Ot V16.3 12/24/2014 Ot 345.90 12/24/2014 SHAKA ERAZO FACC, ALI FACP CCDS Ot 786.05 12/24/2014 SHAKA ERAZO FACC, ALI FACP CCDS Ot 786.50 12/24/2014 SHAKA ERAZO FACC, ALI FACP CCDS Ot 414.00 12/24/2014 SHAKA ERAZO FACC, ALI FACP CCDS Ot 496 12/24/2014 SHAKA ERAZO FACC, ALI FACP CCDS Ot 786.09 12/24/2014 SHAKA ERAZO FACC, ALI FACP CCDS Ot 786.50 12/24/2014 RENETTA CARDOZA [employer] MANAGER Ot 345.90 12/24/2014 Ot 780.2 12/24/2014 Ot 785.1 12/24/2014 Ot 786.05 12/24/2014 Ot 786.50 01/09/2015 RENETTA CARDOZA APRN V16.42 FAMILY HISTORY OF MALIGNANT NEOPLASM OF PROSTATE 01/23/2015 RENETTA CARDOZA APRN 784.0 HEADACHE 03/13/2015 Ot 345.90 03/13/2015 SHAKA ERAZO FACC, ALI FACP CCDS Ot 786.05 03/13/2015 SHAKA ERAZO FACC, ALI FACP CCDS Ot 786.50 03/13/2015 SHAKA ERAZO FACC, ALI FACP CCDS Ot 414.00 03/13/2015 SHAKA ERAZO FACC, ALI FACP CCDS Ot 496 03/13/2015 SHAKA ERAZO FACC, ALI FACP CCDS Ot 786.09 03/13/2015 SHAKA ERAZO FACC, ALI FACP CCDS Ot 786.50 03/13/2015 RENTETA CARDOZA [employer] MANAGER Ot 345.90 03/13/2015 Ot 780.2 03/13/2015 Ot 785.1 03/13/2015 Ot 786.05 03/13/2015 Ot 786.50 04/03/2015 Ot 345.90 04/03/2015 SHAKA ERAZO FACC, ALI FACP CCDS Ot 786.05 04/03/2015 SHAKA ERAZO FACC, ALI FACP CCDS Ot 786.50 04/03/2015 SHAKA ERAZO FACC, ALI FACP CCDS Ot 414.00 04/03/2015 SHAKA ERAZO FACC, ALI FACP CCDS Ot 496 04/03/2015 SHAKA ERAZO FACC, ALI FACP CCDS Ot 786.09 04/03/2015 SHAKA ERAZO FACC, ALI FACP CCDS Ot 786.50 04/03/2015 RENETTA CARDOZA [employer] MANAGER Ot 345.90 04/03/2015 Ot 780.2 04/03/2015 Ot 785.1 04/03/2015 Ot 786.05 04/03/2015 Ot 786.50 04/03/2015 Ot 345.90 04/03/2015 SHAKA ERAZO FACC, ALI FACP CCDS Ot 786.05 04/03/2015 SHAKA ERAZO FACC, ALI FACP CCDS Ot 786.50 04/03/2015 SHAKA ERAZO FACC, ALI FACP CCDS Ot 414.00 04/03/2015 SHAKA ERAZO FACC, ALI FACP CCDS Ot 496 04/03/2015 SHAKA ERAZO FACC, ALI FACP CCDS Ot 786.09 04/03/2015 SHAKA ERAZO FACC, ALI FACP CCDS Ot 786.50 04/03/2015 RENETTA CARDOZA [employer] MANAGER Ot 345.90 04/03/2015 Ot 780.2 04/03/2015 Ot 785.1 04/03/2015 Ot 786.05 04/03/2015 Ot 786.50 04/09/2015 Ot 345.90 04/09/2015 SHAKA ERAZO FACC, ALI FACP CCDS Ot 786.05 04/09/2015 SHAKA ERAZO FACC, ALI FACP CCDS Ot 786.50 04/09/2015 SHAKA ERAZO FACC, ALI FACP CCDS Ot 414.00 04/09/2015 SHAKA ERAZO FACC, ALI FACP CCDS Ot 496 04/09/2015 SHAKA ERAZO FACC, ALI FACP CCDS Ot 786.09 04/09/2015 SHAKA ERAZO FACC, ALI FACP CCDS Ot 786.50 04/09/2015 RENETTA CARDOZA [employer] MANAGER Ot 345.90 04/09/2015 Ot 780.2 04/09/2015 Ot 785.1 04/09/2015 Ot 786.05 04/09/2015 Ot 786.50 05/18/2015 Ot 345.90 05/18/2015 SHAKA ERAZO FACC, ALI FACP CCDS Ot 786.05 05/18/2015 SHAKA ERAZO FACC, ALI FACP CCDS Ot 786.50 05/18/2015 SHAKA ERAZO FACC, ALI FACP CCDS Ot 414.00 05/18/2015 SHAKA ERAZO FACC, ALI FACP CCDS Ot 496 05/18/2015 SHAKA ERAZO FACC, ALI FACP CCDS Ot 786.09 05/18/2015 SHAKA ERAZO FACC, ALI FACP CCDS Ot 786.50 05/18/2015 RENETTA CARDOZA [employer] MANAGER Ot 345.90 05/18/2015 Ot 780.2 05/18/2015 Ot 785.1 05/18/2015 Ot 786.05 05/18/2015 Ot 786.50 05/18/2015 Ot 345.90 05/18/2015 SHAKA ERAZO FACC, ALI FACP CCDS Ot 786.05 05/18/2015 SHAKA ERAZO FACC, ALI FACP CCDS Ot 786.50 05/18/2015 SHAKA ERAZO FACC, ALI FACP CCDS Ot 414.00 05/18/2015 SHAKA ERAZO FACC, ALI FACP CCDS Ot 496 05/18/2015 SHAKA ERAZO FACC, ALI FACP CCDS Ot 786.09 05/18/2015 SHAKA ERAZO FACC, ALI FACP CCDS Ot 786.50 05/18/2015 RENETTA CARDOZA Ot 345.90 05/18/2015 Ot 780.2 05/18/2015 Ot 785.1 05/18/2015 Ot 786.05 05/18/2015 Ot 786.50 10/11/2015 Ot 345.90 10/11/2015 SHAKA ERAZO FACC, ALI FACP CCDS Ot 786.05 10/11/2015 SHAKA ERAZO FACC, ALI FACP CCDS Ot 786.50 10/11/2015 SHAKA ERAZO FACC, ALI FACP CCDS Ot 414.00 10/11/2015 SHAKA ERAZO FACC, ALI FACP CCDS Ot 496 10/11/2015 SHAKA ERAZO FACC, ALI FACP CCDS Ot 786.09 10/11/2015 SHAKA ERAZO FACC, ALI FACP CCDS Ot 786.50 10/11/2015 RENETTA CARDOZA Ot 345.90 10/11/2015 Ot 780.2 10/11/2015 Ot 785.1 10/11/2015 Ot 786.05 10/11/2015 Ot 786.50 10/11/2015 Ot 345.90 10/11/2015 SHAKA ERAZO FACC, ALI FACP CCDS Ot 786.05 10/11/2015 SHAKA ERAZO FACC, ALI FACP CCDS Ot 786.50 10/11/2015 SHAKA ERAZO FACC, ALI FACP CCDS Ot 414.00 10/11/2015 SHAKA ERAZO FACC, ALI FACP CCDS Ot 496 10/11/2015 SHAKA ERAZO FACC, ALI FACP CCDS Ot 786.09 10/11/2015 SHAKA ERAZO FACC, ALI FACP CCDS Ot 786.50 10/11/2015 RENETTA CARDOZA Ot 345.90 10/11/2015 Ot 780.2 10/11/2015 Ot 785.1 10/11/2015 Ot 786.05 10/11/2015 Ot 786.50 10/13/2015 Ot 345.90 10/13/2015 SHAKA ERAZO FAC, ALI FACP CCDS Ot 786.05 10/13/2015 SHAKA ERAZO FAC, ALI FACP CCDS Ot 786.50 10/13/2015 SHAKA ERAZO FAC, ALI FACP CCDS Ot 414.00 10/13/2015 SHAKA ERAZO FAC, ALI FACP CCDS Ot 496 10/13/2015 SHAKA ERAZO [facility], ALI FACP CCDS Ot 786.09 10/13/2015 SHAKA ERAZO [facility], ALI FACP CCDS Ot 786.50 10/13/2015 RENETTA CARDOZA [employer] MANAGER Ot 345.90 10/13/2015 Ot 780.2 10/13/2015 Ot 785.1 10/13/2015 Ot 786.05 10/13/2015 Ot 786.50 10/14/2015 RENETTA CARDOZA Ot 611.72 10/14/2015 RENETTA CARDOZA Ot V16.3 10/14/2015 Ot 780.2 10/14/2015 Ot 785.1 10/14/2015 Ot 786.05 10/14/2015 Ot 786.50 10/15/2015 LANG HUDSON DO Ot T82.118A 10/15/2015 BRANNON HUDSON DOTT Alejandra Ot Z01.810 10/15/2015 HUDSON BRANNON MYRICKTT D Ot Z01.812 10/15/2015 LANG HUDSON DO Ot Z11.2 10/16/2015 BRANNON HUDSON DOTT D Ot T82.118A 10/16/2015 HUDSON BRANNON MYRICKTT D Ot Z79.899 10/29/2015 HUDSON BRANNON MYRICKTT D Ot T82.118A 10/29/2015 BRANNON HUDSON DOTT D Ot Z01.810 10/29/2015 HUDSONBRANNON GOLD DOTT D Ot Z01.812 10/29/2015 BRANNON HUDSON DOTT D Ot Z11.2 10/29/2015 BRANNON HUDSON DOTT D Ot T82.118A 10/29/2015 BRANNON HUDSON DOTT D Ot Z01.810 10/29/2015 LANG HUDSON DO Ot Z01.812 10/29/2015 LANG HUDSON DO Ot Z11.2 02/03/2016 Ot 345.90 02/03/2016 SHAKA ERAZO FACC, ALI FACP CCDS Ot 786.05 02/03/2016 SHAKA ERAZO FACC, ALI FACP CCDS Ot 786.50 02/03/2016 SHAKA REESC, ALI FACP CCDS Ot 414.00 02/03/2016 SHAKA ERAZO FACC, ALI FACP CCDS Ot 496 02/03/2016 SHAKA ERAZO FACC, ALI FACP CCDS Ot 786.09 02/03/2016 SHAKA REESC, ALI FACP CCDS Ot 786.50 02/03/2016 RENETTA CARDOZA Ot 345.90 02/03/2016 Ot 780.2 02/03/2016 Ot 785.1 02/03/2016 Ot 786.05 02/03/2016 Ot 786.50 03/03/2016 Ot 345.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 03/03/2016 SHAKA ERAZO FACC, ALI FACP CCDS Ot 786.05 SHORTNESS OF BREATH 03/03/2016 SHAKA ERAZO FACC, ALI FACP CCDS Ot 786.50 CHEST PAIN NOS 03/03/2016 SHAKA ERAZO FACC, ALI FACP CCDS Ot 414.00 CORON ATHEROSCLER NOS TYPE VESSEL, NATIV 03/03/2016 SHAKA ERAZO FACC, ALI FACP CCDS Ot 496 CHR AIRWAY OBSTRUCT NEC 03/03/2016 SHAKA REESC, ALI FACP CCDS Ot 786.09 RESPIRATORY ABNORM NEC 03/03/2016 SHAKA ERAZO FACC, ALI FACP CCDS Ot 786.50 CHEST PAIN NOS 03/03/2016 RENETTA CARDOZA Ot 345.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 03/03/2016 Ot 780.2 SYNCOPE AND COLLAPSE 03/03/2016 Ot 785.1 PALPITATIONS 03/03/2016 Ot 786.05 SHORTNESS OF BREATH 03/03/2016 Ot 786.50 CHEST PAIN NOS 03/15/2016 Ot 345.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 03/15/2016 SHAKA ERAZO FACC, ALI FACP CCDS Ot 786.05 SHORTNESS OF BREATH 03/15/2016 SHAKA ERAZO FACC, ALI FACP CCDS Ot 786.50 CHEST PAIN NOS 03/15/2016 SHAKA ERAZO FACC, ALI FACP CCDS Ot 414.00 CORON ATHEROSCLER NOS TYPE VESSEL, NATIV 03/15/2016 SHAKA ERAZO FACC, ALI FACP CCDS Ot 496 CHR AIRWAY OBSTRUCT NEC 03/15/2016 SHAKA ERAZO FACC, ALI FACP CCDS Ot 786.09 RESPIRATORY ABNORM NEC 03/15/2016 SHAKA ERAZO FACC, ALI FACP CCDS Ot 786.50 CHEST PAIN NOS 03/15/2016 RENETTA CARDOZA [employer] MANAGER Ot 345.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 03/15/2016 Ot 780.2 SYNCOPE AND COLLAPSE 03/15/2016 Ot 785.1 PALPITATIONS 03/15/2016 Ot 786.05 SHORTNESS OF BREATH 03/15/2016 Ot 786.50 CHEST PAIN NOS 03/15/2016 Ot 345.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 03/15/2016 SHAKA ERAZO FACC, ALI FACP CCDS Ot 786.05 SHORTNESS OF BREATH 03/15/2016 SHAKA ERAZO FACC, ALI FACP CCDS Ot 786.50 CHEST PAIN NOS 03/15/2016 SHAKA ERAZO FACC, ALI FACP CCDS Ot 414.00 CORON ATHEROSCLER NOS TYPE VESSEL, NATIV 03/15/2016 SHAKA ERAZO FACC, ALI FACP CCDS Ot 496 CHR AIRWAY OBSTRUCT NEC 03/15/2016 SHAKA ERAZO FACC, ALI FACP CCDS Ot 786.09 RESPIRATORY ABNORM NEC 03/15/2016 SHAKA ERAZO FACC, ALI FACP CCDS Ot 786.50 CHEST PAIN NOS 03/15/2016 RENETTA CARDOZA Ot 345.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 03/15/2016 Ot 780.2 SYNCOPE AND COLLAPSE 03/15/2016 Ot 785.1 PALPITATIONS 03/15/2016 Ot 786.05 SHORTNESS OF BREATH 03/15/2016 Ot 786.50 CHEST PAIN NOS 04/25/2016 Ot 345.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 04/25/2016 SHAKA ERAZO FACC, ALI FACP CCDS Ot 786.05 SHORTNESS OF BREATH 04/25/2016 SHAKA ERAZO FACC, ALI FACP CCDS Ot 786.50 CHEST PAIN NOS 04/25/2016 SHAKA ERAZO FACC, ALI FACP CCDS Ot 414.00 CORON ATHEROSCLER NOS TYPE VESSEL, NATIV 04/25/2016 SHAKA ERAZO FACC, ALI FACP CCDS Ot 496 CHR AIRWAY OBSTRUCT NEC 04/25/2016 SHAKA ERAZO FACC, ALI FACP CCDS Ot 786.09 RESPIRATORY ABNORM NEC 04/25/2016 SHAKA ERAZO FACC, ALI FACP CCDS Ot 786.50 CHEST PAIN NOS 04/25/2016 NANI RENETTA Kristi [employer] MANAGER Ot 345.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 04/25/2016 Ot 780.2 SYNCOPE AND COLLAPSE 04/25/2016 Ot 785.1 PALPITATIONS 04/25/2016 Ot 786.05 SHORTNESS OF BREATH 04/25/2016 Ot 786.50 CHEST PAIN NOS 04/26/2016 Ot 345.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 04/26/2016 SHAKA REESC, ALI FACP CCDS Ot 786.05 SHORTNESS OF BREATH 04/26/2016 SHAKA ERAZO FACC, ALI FACP CCDS Ot 786.50 CHEST PAIN NOS 04/26/2016 SHAKA REESC, ALI FACP CCDS Ot 414.00 CORON ATHEROSCLER NOS TYPE VESSEL, NATIV 04/26/2016 SHAKA ERAZO FACC, ALI FACP CCDS Ot 496 CHR AIRWAY OBSTRUCT NEC 04/26/2016 SHAKA ERAZO FACC, ALI FACP CCDS Ot 786.09 RESPIRATORY ABNORM NEC 04/26/2016 SHAKA ERAZO FACC, ALI FACP CCDS Ot 786.50 CHEST PAIN NOS 04/26/2016 RENETTA CARDOZA [employer] MANAGER Ot 345.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 04/26/2016 Ot 780.2 SYNCOPE AND COLLAPSE 04/26/2016 Ot 785.1 PALPITATIONS 04/26/2016 Ot 786.05 SHORTNESS OF BREATH 04/26/2016 Ot 786.50 CHEST PAIN NOS 04/27/2016 Ot 345.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 04/27/2016 SHAKA ERAZO FACC, ALI FACP CCDS Ot 786.05 SHORTNESS OF BREATH 04/27/2016 SHAAK ERAZO FACC, ALI FACP CCDS Ot 786.50 CHEST PAIN NOS 04/27/2016 SHAKA ERAZO FACC, ALI FACP CCDS Ot 414.00 CORON ATHEROSCLER NOS TYPE VESSEL, NATIV 04/27/2016 SHAKA ERAZO FACC, ALI FACP CCDS Ot 496 CHR AIRWAY OBSTRUCT NEC 04/27/2016 SHAKA ERAZO FACC, ALI FACP CCDS Ot 786.09 RESPIRATORY ABNORM NEC 04/27/2016 SHAKA REESC, ALI FACP CCDS Ot 786.50 CHEST PAIN NOS 04/27/2016 RENETTA CARDOZA Ot 345.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 04/27/2016 Ot 780.2 SYNCOPE AND COLLAPSE 04/27/2016 Ot 785.1 PALPITATIONS 04/27/2016 Ot 786.05 SHORTNESS OF BREATH 04/27/2016 Ot 786.50 CHEST PAIN NOS 05/18/2016 Ot 345.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 05/18/2016 SHAKA REESC, ALI FACP CCDS Ot 786.05 SHORTNESS OF BREATH 05/18/2016 SHAKA ERAZO FACC, ALI FACP CCDS Ot 786.50 CHEST PAIN NOS 05/18/2016 SHAKA REESC, ALI FACP CCDS Ot 414.00 CORON ATHEROSCLER NOS TYPE VESSEL, NATIV 05/18/2016 SHAKA REESC, ALI FACP CCDS Ot 496 CHR AIRWAY OBSTRUCT NEC 05/18/2016 SHAKA ERAZO FACC, ALI FACP CCDS Ot 786.09 RESPIRATORY ABNORM NEC 05/18/2016 SHAKA ERAZO FACC, ALI FACP CCDS Ot 786.50 CHEST PAIN NOS 05/18/2016 RENETTA CARDOZA Ot 345.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 05/18/2016 Ot 780.2 SYNCOPE AND COLLAPSE 05/18/2016 Ot 785.1 PALPITATIONS 05/18/2016 Ot 786.05 SHORTNESS OF BREATH 05/18/2016 Ot 786.50 CHEST PAIN NOS 08/04/2016 Ot 345.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 08/04/2016 SHAKA ERAZO FACC, ALI FACP CCDS Ot 786.05 SHORTNESS OF BREATH 08/04/2016 SHAKA ERAZO FACC, ALI FACP CCDS Ot 786.50 CHEST PAIN NOS 08/04/2016 SHAKA ERAZO FACC, ALI FACP CCDS Ot 414.00 CORON ATHEROSCLER NOS TYPE VESSEL, NATIV 08/04/2016 SHAKA REESC, ALI FACP CCDS Ot 496 CHR AIRWAY OBSTRUCT NEC 08/04/2016 SHAKA REESC, ALI FACP CCDS Ot 786.09 RESPIRATORY ABNORM NEC 08/04/2016 SHAKA REESC, ALI FACP CCDS Ot 786.50 CHEST PAIN NOS 08/04/2016 RENETTA CARDOZA [facility] Ot 345.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 08/04/2016 Ot 780.2 SYNCOPE AND COLLAPSE 08/04/2016 Ot 785.1 PALPITATIONS 08/04/2016 Ot 786.05 SHORTNESS OF BREATH 08/04/2016 Ot 786.50 CHEST PAIN NOS 11/14/2016 Ot 345.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 11/14/2016 SHAKA ERAZO FACC, ALI FACP CCDS Ot 786.05 SHORTNESS OF BREATH 11/14/2016 SHAKA ERAZO FACC, ALI FACP CCDS Ot 786.50 CHEST PAIN NOS 11/14/2016 SHAKA ERAZO FACC, ALI FACP CCDS Ot 414.00 CORON ATHEROSCLER NOS TYPE VESSEL, NATIV 11/14/2016 SHAKA ERAZO FACC, ALI FACP CCDS Ot 496 CHR AIRWAY OBSTRUCT NEC 11/14/2016 SHAKA ERAZO FACC, ALI FACP CCDS Ot 786.09 RESPIRATORY ABNORM NEC 11/14/2016 SHAKA ERAZO FACC, ALI FACP CCDS Ot 786.50 CHEST PAIN NOS 11/14/2016 RENETTA CARDOZA [facility] Ot 345.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 11/14/2016 Ot 780.2 SYNCOPE AND COLLAPSE 11/14/2016 Ot 785.1 PALPITATIONS 11/14/2016 Ot 786.05 SHORTNESS OF BREATH 11/14/2016 Ot 786.50 CHEST PAIN NOS 12/28/2016 CARMEN HOYOS FORGE OPERATOR Ot F17.200 NICOTINE DEPENDENCE, UNSPECIFIED, UNCOMP 12/28/2016 CARMEN HOYOS FORGE OPERATOR Ot J44.9 CHRONIC OBSTRUCTIVE PULMONARY DISEASE, U 12/28/2016 CARMEN HOYOS FORGE OPERATOR Ot R06.00 DYSPNEA, UNSPECIFIED 01/24/2017 CARMEN HOYOS FORGE OPERATOR Ot F17.200 NICOTINE DEPENDENCE, UNSPECIFIED, UNCOMP 01/24/2017 CARMEN HOYOS FORGE OPERATOR Ot J44.9 CHRONIC OBSTRUCTIVE PULMONARY DISEASE, U 01/24/2017 CARMEN HOYOS FORGE OPERATOR Ot R06.00 DYSPNEA, UNSPECIFIED 02/03/2017 CARMEN HOYOS FORGE OPERATOR Ot F17.200 NICOTINE DEPENDENCE, UNSPECIFIED, UNCOMP 02/03/2017 CARMEN HOYOS FORGE OPERATOR Ot J44.9 CHRONIC OBSTRUCTIVE PULMONARY DISEASE, U 02/03/2017 CARMEN HOYOS FORGE OPERATOR Ot R06.00 DYSPNEA, UNSPECIFIED 03/31/2017 ROMA STRICKLAND FORGE OPERATOR Ot J44.9 CHRONIC OBSTRUCTIVE PULMONARY DISEASE, U 03/31/2017 ROMA STRICKLAND FORGE OPERATOR Ot M17.11 UNILATERAL PRIMARY OSTEOARTHRITIS, RIGHT 03/31/2017 ROMA STRICKLAND FORGE OPERATOR Ot M25.561 PAIN IN RIGHT KNEE 03/31/2017 ROMA STRICKLAND FORGE OPERATOR Ot 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.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 03/31/2017 ROMA STRICKLAND FORGE OPERATOR Ot Z79.899 OTHER CUSTODIAL (CURRENT) DRUG THERAPY 04/02/2017 ROMA STRICKLAND APRN Ot J44.9 CHRONIC OBSTRUCTIVE PULMONARY DISEASE, U 04/02/2017 ROMA STRICKLAND APRN Ot M17.11 UNILATERAL PRIMARY OSTEOARTHRITIS, RIGHT 04/02/2017 ROMA STRICKLAND FORGE OPERATOR Ot M25.561 PAIN IN RIGHT KNEE 04/02/2017 ROMA STRICKLAND FORGE OPERATOR Ot Z79.82 CUSTODIAL (CURRENT) USE OF ASPIRIN 04/02/2017 ROMA STRICKLAND FORGE OPERATOR Ot Z79.899 OTHER CUSTODIAL (CURRENT) DRUG THERAPY 04/12/2017 RENETTA CARDOZA [employer] MANAGER Ot M25.561 PAIN IN RIGHT KNEE 04/16/2017 RENETTA CARDOZA [employer] MANAGER Ot M25.561 PAIN IN RIGHT KNEE 05/04/2017 RENETTA CARDOZA [employer] MANAGER Ot M25.561 PAIN IN RIGHT KNEE 05/12/2017 RENETTA CARDOZA [employer] MANAGER Ot M25.561 PAIN IN RIGHT KNEE 05/30/2017 SHAKA ERAZO FACC, KAMRYN REESP CCDS Ot E78.5 HYPERLIPIDEMIA, UNSPECIFIED 05/30/2017 SHAKA ERAZO FACC, KAMRYN REESP CCDS Ot I25.10 ATHSCL HEART DISEASE OF [place] CORONARY 05/30/2017 KAMRYN MATT MD, FACCP CCDS Ot 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 05/30/2017 KAMRYN MATT MD, FACCP CCDS Ot R06.02 SHORTNESS OF BREATH 05/30/2017 KAMRYN MATT MD, FACCP CCDS Ot E78.5 HYPERLIPIDEMIA, UNSPECIFIED 05/30/2017 KAMRYN MATT MD, FACCP CCDS Ot I25.10 ATHSCL HEART DISEASE OF [place] CORONARY 05/30/2017 KAMRYN MATT MD, FACCP CCDS Ot 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 05/30/2017 SHAKA ERAZO [facility] CCDS Ot R06.02 SHORTNESS OF BREATH 05/30/2017 SHAKA ERAZO [facility] CCDS Ot E78.5 HYPERLIPIDEMIA, UNSPECIFIED 05/30/2017 SHAKA ERAZO [facility], [facility] CCDS Ot I25.10 ATHSCL HEART DISEASE OF [place] CORONARY 05/30/2017 SHAKA ERAZO [facility], [facility] CCDS Ot 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 05/30/2017 SHAKA ERAZO [facility], [facility] CCDS Ot R06.02 SHORTNESS OF BREATH 06/15/2017 Ot 780.2 SYNCOPE AND COLLAPSE 06/15/2017 Ot 785.1 PALPITATIONS 06/15/2017 Ot 786.05 SHORTNESS OF BREATH 06/15/2017 Ot 786.50 CHEST PAIN NOS 06/16/2017 LEYLA TORRES MD Ot S83.241A OTH TEAR OF MEDIAL MENISCUS, CURRENT INJ 06/16/2017 LEYLA TORRES MD Ot S83.281A OTH TEAR OF LAT MENSC, CURRENT INJURY, R 06/16/2017 LEYLA TORRES MD, Ot X58.XXXA EXPOSURE TO OTHER SPECIFIED FACTORS, INI 06/16/2017 LEYLA TORRES MD, Ot Y99.8 OTHER EXTERNAL CAUSE STATUS 06/16/2017 LEYLA TORRES MD, Ot Z01.818 ENCOUNTER FOR OTHER PREPROCEDURAL EXAMIN 06/21/2017 LEYLA TORRES MD, Ot E78.5 HYPERLIPIDEMIA, UNSPECIFIED 06/21/2017 LEYLA TORRES MD Ot F17.210 NICOTINE DEPENDENCE, CIGARETTES, UNCOMPL 06/21/2017 LEYLA TORRES MD, Ot F41.9 ANXIETY DISORDER, UNSPECIFIED 06/21/2017 LEYLA TORRES MD, Ot G40.909 EPILEPSY, UNSP, NOT INTRACTABLE, WITHOUT 06/21/2017 LEYLA TORRES MD, Ot G47.33 OBSTRUCTIVE SLEEP APNEA (ADULT) (PEDIATR 06/21/2017 LEYLA TORRES MD Ot I10 ESSENTIAL (PRIMARY) HYPERTENSION 06/21/2017 LEYLA TORRES MD, Ot I25.10 ATHSCL HEART DISEASE OF [place] CORONARY 06/21/2017 LEYLA TORRES MD, Ot J44.9 CHRONIC OBSTRUCTIVE PULMONARY DISEASE, U 06/21/2017 LEYLA TORRES MD Ot K21.9 GASTRO-ESOPHAGEAL REFLUX DISEASE WITHOUT 06/21/2017 LEYLA TORRES MD Ot M22.41 CHONDROMALACIA PATELLAE, RIGHT KNEE 06/21/2017 LEYLA TORRES MD Ot M23.8X1 OTHER INTERNAL DERANGEMENTS OF RIGHT KNE 06/23/2017 SHAKA ERAZO FACC, ALI FACP CCDS Ot E78.5 HYPERLIPIDEMIA, UNSPECIFIED 06/23/2017 SHAKA ERAZO FACC, ALI FACP CCDS Ot I25.10 ATHSCL HEART DISEASE OF [place] CORONARY 06/23/2017 SHAKA ERAZO FACC, ALI FACP CCDS Ot 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 06/23/2017 SHAKA ERAZO FACC, ALI FACP CCDS Ot R06.02 SHORTNESS OF BREATH 06/26/2017 SHAKA ERAZO FACC, ALI FACP CCDS Ot E78.5 HYPERLIPIDEMIA, UNSPECIFIED 06/26/2017 SHAKA ERAZO FACC, ALI FACP CCDS Ot I25.10 ATHSCL HEART DISEASE OF [place] CORONARY 06/26/2017 SHAKA ERAZO FAC, ALI FACP CCDS Ot 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 06/26/2017 SHAKA ERAZO FACC, ALI FACP CCDS Ot R06.02 SHORTNESS OF BREATH 06/27/2017 LEYLA TORRES MD Ot E78.5 HYPERLIPIDEMIA, UNSPECIFIED 06/27/2017 LEYLA TORRES MD Ot F17.210 NICOTINE DEPENDENCE, CIGARETTES, UNCOMPL 06/27/2017 LEYLA TORRES MD Ot F41.9 ANXIETY DISORDER, UNSPECIFIED 06/27/2017 LEYLA TORRES MD Ot G40.909 EPILEPSY, UNSP, NOT INTRACTABLE, WITHOUT 06/27/2017 LEYLA TORRES MD Ot G47.33 OBSTRUCTIVE SLEEP APNEA (ADULT) (PEDIATR 06/27/2017 LEYLA TORRES MD Ot I10 ESSENTIAL (PRIMARY) HYPERTENSION 06/27/2017 LEYLA TORRES MD Ot I25.10 ATHSCL HEART DISEASE OF [place] CORONARY 06/27/2017 LEYLA TORRES MD Ot J44.9 CHRONIC OBSTRUCTIVE PULMONARY DISEASE, U 06/27/2017 LEYLA TORRES MD Ot K21.9 GASTRO-ESOPHAGEAL REFLUX DISEASE WITHOUT 06/27/2017 LEYLA TORRES MD Ot M22.41 CHONDROMALACIA PATELLAE, RIGHT KNEE 06/27/2017 LEYLA TRORES MD Ot M23.8X1 OTHER INTERNAL DERANGEMENTS OF RIGHT KNE 08/09/2017 LEYLA TORRES MD Ot E78.5 HYPERLIPIDEMIA, UNSPECIFIED 08/09/2017 LEYLA TORRES MD Ot F17.210 NICOTINE DEPENDENCE, CIGARETTES, UNCOMPL 08/09/2017 LEYLA TORRES MD Ot G47.33 OBSTRUCTIVE SLEEP APNEA (ADULT) (PEDIATR 08/09/2017 LEYLA TORRES MD Ot I10 ESSENTIAL (PRIMARY) HYPERTENSION 08/09/2017 LEYLA TORRES MD Ot I25.10 ATHSCL HEART DISEASE OF [place] CORONARY 08/09/2017 LEYLA TORRES MD Ot J44.9 CHRONIC OBSTRUCTIVE PULMONARY DISEASE, U 08/09/2017 LEYLA TORRES MD Ot M23.252 DERANG OF POST HORN OF LAT MENSC DUE TO 08/09/2017 LEYLA TORRES MD Ot M94.262 CHONDROMALACIA, LEFT KNEE 08/09/2017 LEYLA TORRES MD Ot R56.9 UNSPECIFIED CONVULSIONS 08/09/2017 LEYLA TORRES MD Ot Z79.899 OTHER CUSTODIAL (CURRENT) DRUG THERAPY 08/11/2017 LEYLA TORRES MD Ot E78.5 HYPERLIPIDEMIA, UNSPECIFIED 08/11/2017 LEYLA TORRES MD Ot F17.210 NICOTINE DEPENDENCE, CIGARETTES, UNCOMPL 08/11/2017 LEYLA TORRES MD Ot G47.33 OBSTRUCTIVE SLEEP APNEA (ADULT) (PEDIATR 08/11/2017 LEYLA TORRES MD Ot I10 ESSENTIAL (PRIMARY) HYPERTENSION 08/11/2017 LEYLA TORRES MD Ot I25.10 ATHSCL HEART DISEASE OF [place] CORONARY 08/11/2017 LEYLA TORRES MD Ot J44.9 CHRONIC OBSTRUCTIVE PULMONARY DISEASE, U 08/11/2017 LEYLA TORRES MD Ot M23.252 DERANG OF POST HORN OF LAT MENSC DUE TO 08/11/2017 LEYLA TORRES MD Ot M94.262 CHONDROMALACIA, LEFT KNEE 08/11/2017 LEYLA TORRES MD Ot R56.9 UNSPECIFIED CONVULSIONS 08/11/2017 LEYLA TORRES MD Ot Z79.899 OTHER CUSTODIAL (CURRENT) DRUG THERAPY 08/13/2017 LEYLA TORRES MD, Ot M22.42 CHONDROMALACIA PATELLAE, LEFT KNEE 08/13/2017 LEYLA TORRES MD, Ot M23.204 DERANG OF UNSP MEDIAL MENISCUS DUE TO OL 08/13/2017 LEYLA TORRES MD Ot Z01.818 ENCOUNTER FOR OTHER PREPROCEDURAL EXAMIN 08/17/2017 LEYLA TORRES MD, Ot E78.5 HYPERLIPIDEMIA, UNSPECIFIED 08/17/2017 LEYLA TORRES MD, Ot F17.210 NICOTINE DEPENDENCE, CIGARETTES, UNCOMPL 08/17/2017 LEYLA TORRES MD, Ot G47.33 OBSTRUCTIVE SLEEP APNEA (ADULT) (PEDIATR 08/17/2017 LEYLA TORRES MD, Ot I10 ESSENTIAL (PRIMARY) HYPERTENSION 08/17/2017 LEYLA TORRES MD Ot I25.10 ATHSCL HEART DISEASE OF [place] CORONARY 08/17/2017 LEYLA TORRES MD Ot J44.9 CHRONIC OBSTRUCTIVE PULMONARY DISEASE, U 08/17/2017 LEYLA TORRES MD, Ot M23.252 DERANG OF POST HORN OF LAT MENSC DUE TO 08/17/2017 LEYLA TORRES MD, Ot M94.262 CHONDROMALACIA, LEFT KNEE 08/17/2017 LEYLA TORRES MD Ot R56.9 UNSPECIFIED CONVULSIONS 08/17/2017 LEYLA TORRES MD, Ot Z79.899 OTHER LEAD CONSULTANT (CURRENT) DRUG THERAPY 08/20/2017 WHITNEY THORNTON MD Ot E78.00 PURE HYPERCHOLESTEROLEMIA, UNSPECIFIED 08/20/2017 WHITNEY THORNTON MD, Ot F17.210 NICOTINE DEPENDENCE, CIGARETTES, UNCOMPL 08/20/2017 WHITNEY THORNTON MD, Ot F41.9 ANXIETY DISORDER, UNSPECIFIED 08/20/2017 WHITNEY THORNTON MD, Ot G40.909 EPILEPSY, UNSP, NOT INTRACTABLE, WITHOUT 08/20/2017 WHITNEY THORNTON MD Ot I10 ESSENTIAL (PRIMARY) HYPERTENSION 08/20/2017 WHITNEY THORNTON MD Ot J06.9 ACUTE UPPER RESPIRATORY INFECTION, UNSPE 08/20/2017 WHITNEY THORNTON MD, Ot J44.9 CHRONIC OBSTRUCTIVE PULMONARY DISEASE, U 08/20/2017 WHITNEY THORNTON MD Ot K21.9 GASTRO-ESOPHAGEAL REFLUX DISEASE WITHOUT 08/20/2017 WHITNEY THORNTON MD Ot R05 COUGH 08/20/2017 WHITNEY THORNTON MD, Ot Z87.828 PERSONAL HISTORY OF OTH (HEALED) PHYSICA 08/27/2017 TAYLER SUBRAMANIAN MD Ot E78.5 HYPERLIPIDEMIA, UNSPECIFIED 08/27/2017 TAYLER SUBRAMANIAN MD Ot F17.210 NICOTINE DEPENDENCE, CIGARETTES, UNCOMPL 08/27/2017 TAYLER SUBRAMANIAN MD Ot G40.909 EPILEPSY, UNSP, NOT INTRACTABLE, WITHOUT 08/27/2017 TAYLER SUBRAMANIAN MD, Ot G47.33 OBSTRUCTIVE SLEEP APNEA (ADULT) (PEDIATR 08/27/2017 TAYLER SUBRAMANIAN MD, Ot I10 ESSENTIAL (PRIMARY) HYPERTENSION 08/27/2017 TAYLER SUBRAMANIAN MD, Ot I49.9 CARDIAC ARRHYTHMIA, UNSPECIFIED 08/27/2017 TAYLER SUBRAMANIAN MD, Ot J44.1 CHRONIC OBSTRUCTIVE PULMONARY DISEASE W 08/27/2017 TAYLER SUBRAMANIAN MD, Ot R73.03 PREDIABETES 08/27/2017 TAYLER SUBRAMANIAN MD, Ot Z23 ENCOUNTER FOR IMMUNIZATION 08/27/2017 TAYLER SUBRAMANIAN MD, Ot Z79.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 08/27/2017 TAYLER SUBRAMANIAN MD, Ot Z79.899 OTHER LEAD CONSULTANT (CURRENT) DRUG THERAPY 08/27/2017 TAYLER SUBRAMANIAN MD, Ot E78.5 HYPERLIPIDEMIA, UNSPECIFIED 08/27/2017 TAYLER SUBRAMANIAN MD, Ot F17.210 NICOTINE DEPENDENCE, CIGARETTES, UNCOMPL 08/27/2017 TAYLER SUBRAMANIAN MD, Ot G40.909 EPILEPSY, UNSP, NOT INTRACTABLE, WITHOUT 08/27/2017 TAYLER SUBRAMANIAN MD, Ot G47.33 OBSTRUCTIVE SLEEP APNEA (ADULT) (PEDIATR 08/27/2017 TAYLER SUBRAMANIAN MD, Ot I10 ESSENTIAL (PRIMARY) HYPERTENSION 08/27/2017 TAYLER SUBRAMANIAN MD Ot I49.9 CARDIAC ARRHYTHMIA, UNSPECIFIED 08/27/2017 TAYLER SUBRAMANIAN MD, Ot J44.1 CHRONIC OBSTRUCTIVE PULMONARY DISEASE W 08/27/2017 TAYLER SUBRAMANIAN MD Ot R73.03 PREDIABETES 08/27/2017 TAYLER SUBRAMANIAN MD Ot Z23 ENCOUNTER FOR IMMUNIZATION 08/27/2017 TAYLER SUBRAMANIAN MD Ot Z79.82 CUSTODIAL (CURRENT) USE OF ASPIRIN 08/27/2017 TAYLER SUBRAMANIAN MD Ot Z79.899 OTHER LEAD CONSULTANT (CURRENT) DRUG THERAPY 09/19/2017 CARMEN HOYOS APRN Ot F12.10 CANNABIS ABUSE, UNCOMPLICATED 09/19/2017 CARMEN HOYOS FORGE OPERATOR Ot J44.9 CHRONIC OBSTRUCTIVE PULMONARY DISEASE, U 09/19/2017 CARMEN HOYOS FORGE OPERATOR Ot Z72.0 TOBACCO USE 10/24/2017 CARMEN HOYOS APRN Ot F12.10 CANNABIS ABUSE, UNCOMPLICATED 10/24/2017 CARMEN HOYOS FORGE OPERATOR Ot J44.9 CHRONIC OBSTRUCTIVE PULMONARY DISEASE, U 10/24/2017 CARMEN HOYOS FORGE OPERATOR Ot Z72.0 TOBACCO USE 11/10/2017 CARMEN HOYOS FORGE OPERATOR Ot F12.10 CANNABIS ABUSE, UNCOMPLICATED 11/10/2017 CARMEN HOYOS FORGE OPERATOR Ot J44.9 CHRONIC OBSTRUCTIVE PULMONARY DISEASE, U 11/10/2017 CARMEN HOYOS FORGE OPERATOR Ot Z72.0 TOBACCO USE Procedures Code [place] [address] EEG 09/09/2012 83642 SPIROMETRY 01/03/2013 27812 BRONCHODILATION PRE/POST 01/03/2013 71327 RESPIRATORY FLOW VOLUME LOOP 01/03/2013 88225 XRAY CHEST 2 VIEW 01/24/2013 03037 OXIMETRY 03/21/2013 98769 ROUTINE VENIPUNCTURE 03/28/2013 70064 SLEEP STUDY 03/28/2013 04123 DILANTIN 03/28/2013 39795 XRAY CHEST 2 VIEW 06/07/2013 CARDIOLOG KAMRYN MATT 07/31/2013 93991 A1C (IN-HOUSE) 07/31/2013 88589 ECHO 2D 09/18/2013 68975 HEART CATH 09/18/2013 35601 ROUTINE VENIPUNCTURE 10/21/2013 34950 HEP C ANTIBODY (STATE LAB) 10/21/2013 26612 LIPID PANEL 10/21/2013 95765 CBC 10/21/2013 [id number] GFR CALC (RESULT ONLY) 10/21/2013 98665 CMP 10/21/2013 14929 OXIMETRY 12/04/2013 43504 NUCLEAR STRESS TESTING 12/04/2013 34080 OXIMETRY 03/05/2014 29096 SKIN TAG REM 1-15 03/25/2014 97825 ROUTINE VENIPUNCTURE 04/14/2014 [id number] GFR CALC (RESULT ONLY) 04/14/2014 01665 CMP 04/14/2014 00801 LIPID PANEL 04/14/2014 93122 A1C (RML) 04/21/2014 33435 CBC 04/21/2014 [id number] GFR CALC (RESULT ONLY) 04/21/2014 81428 BMP 04/21/2014 04496 RENAL PROFILE 04/21/2014 75233 SKIN TAG REM 1-15 05/06/2014 12037 OXIMETRY 05/06/2014 08774 OXIMETRY 06/04/2014 81474 EVENT MONITOR 06/09/2014 06777 US CAROTID DOPPLER 06/09/2014 38828 OXIMETRY 06/09/2014 75312 TILT TABLE EVALUATION 06/17/2014 38565 LEFT HEART CATH 07/16/2014 30150 OXIMETRY 07/16/2014 88466 ROUTINE VENIPUNCTURE 07/30/2014 5006428 GFR CALC (RESULT ONLY) 07/30/2014 31268 CMP 07/30/2014 34147 ROUTINE VENIPUNCTURE 08/13/2014 70495 MRI BRAIN W/O & W/DYE 08/13/2014 44549 EEG 08/13/2014 99158 BMP 08/13/2014 04025 MAGNESIUM 08/13/2014 0737720 GFR CALC (RESULT ONLY) 08/13/2014 64521 SKIN TAG REM 1-15 08/26/2014 69083 OXIMETRY 08/26/2014 20301 OXIMETRY 10/08/2014 NEUROLOGY HERO MONTANEZ 10/08/2014 85911 XRAY HAND LEFT 2 VIEWS 10/11/2014 83029 OXIMETRY 11/19/2014 48711 INFLUENZA A & B (IN-HOUSE) 11/19/2014 27401 OXIMETRY 02/09/2015 S LANG HUDSON 02/09/2015 Results Test Result Range Methicillin resistant Staphylococcus aureus (MRSA) screening culture - 09:30 Methicillin resistant Staphylococcus aureus (MRSA) screening culture NEG NRG Serum or plasma phenytoin measurement (mass/volume) - 06/21/17 06:45 Serum or plasma phenytoin measurement (mass/volume) 3.8 ug/mL 10.0-20.0 Methicillin resistant Staphylococcus aureus (MRSA) screening culture - 12:00 Methicillin resistant Staphylococcus aureus (MRSA) screening culture NEG [facility] Influenza virus A and B antigen detection - 08/20/17 08:55 FLU RESULT NEGATIVE FOR INFLUENZA A AND B ANTIGENS BY IA [facility] Complete blood count (CBC) with automated white blood cell (WBC) differential - 08/26/17 17:00 Blood leukocytes automated count (number/volume) 10.2 10*3/uL 4.3-11.0 Blood erythrocytes automated count (number/volume) 6.00 10*6/uL 4.35-5.85 Venous blood hemoglobin measurement (mass/volume) 18.4 g/dL 13.3-17.7 Blood hematocrit (volume fraction) 54 % 40-54 Automated erythrocyte mean corpuscular volume 90 [foz_us] 80-99 Automated erythrocyte mean corpuscular hemoglobin (mass per erythrocyte) 31 pg 25-34 Automated erythrocyte mean corpuscular hemoglobin concentration measurement ( mass/volume) 34 g/dL 32-36 Automated erythrocyte distribution width ratio 14.0 % 10.0-14.5 Automated blood platelet count (count/volume) 182 10*3/uL 130-400 Automated blood platelet mean volume measurement 8.9 [foz_us] 7.4-10.4 Automated blood neutrophils/100 leukocytes 83 % 42-75 Automated blood lymphocytes/100 leukocytes 11 % 12-44 Blood monocytes/100 leukocytes 4 % 0-12 Automated blood eosinophils/100 leukocytes 1 % 0-10 Automated blood basophils/100 leukocytes 0 % 0-10 Blood neutrophils automated count (number/volume) 8.5 10*3 1.8-7.8 Blood lymphocytes automated count (number/volume) 1.2 10*3 1.0-4.0 Blood monocytes automated count (number/volume) 0.5 10*3 0.0-1.0 Automated eosinophil count 0.1 10*3/uL 0.0-0.3 Automated blood basophil count (count/volume) 0.0 10*3/uL 0.0-0.1 Complete blood count (CBC) with automated white blood cell (WBC) differential - 08/27/17 04:50 Blood leukocytes automated count (number/volume) 9.5 10*3/uL 4.3-11.0 Blood erythrocytes automated count (number/volume) 5.70 10*6/uL 4.35-5.85 Venous blood hemoglobin measurement (mass/volume) 17.5 g/dL 13.3-17.7 Blood hematocrit (volume fraction) 51 % 40-54 Automated erythrocyte mean corpuscular volume 90 [foz_us] 80-99 Automated erythrocyte mean corpuscular hemoglobin (mass per erythrocyte) 31 pg 25-34 Automated erythrocyte mean corpuscular hemoglobin concentration measurement ( mass/volume) 34 g/dL 32-36 Automated erythrocyte distribution width ratio 13.8 % 10.0-14.5 Automated blood platelet count (count/volume) 181 10*3/uL 130-400 Automated blood platelet mean volume measurement 9.2 [foz_us] 7.4-10.4 Automated blood neutrophils/100 leukocytes 91 % 42-75 Automated blood lymphocytes/100 leukocytes 7 % 12-44 Blood monocytes/100 leukocytes 2 % 0-12 Automated blood eosinophils/100 leukocytes 0 % 0-10 Automated blood basophils/100 leukocytes 0 % 0-10 Blood neutrophils automated count (number/volume) 8.7 10*3 1.8-7.8 Blood lymphocytes automated count (number/volume) 0.6 10*3 1.0-4.0 Blood monocytes automated count (number/volume) 0.2 10*3 0.0-1.0 Automated eosinophil count 0.0 10*3/uL 0.0-0.3 Automated blood basophil count (count/volume) 0.0 10*3/uL 0.0-0.1 Blood manual differential performed detection - 08/27/17 04:50 Blood monocytes/100 leukocytes 2 % NRG Manual blood segmented neutrophils/100 leukocytes 92 % NRG Blood band neutrophils/100 leukocytes 2 % NRG Manual blood lymphocytes/100 leukocytes 4 % NRG Manual eosinophils/100 leukocytes in nose 0 % NRG Manual blood basophils/100 leukocytes 0 % NRG Blood toxic granules detection by light microscopy 1+ NRG Encounters ACCT No. Visit Date/Time Discharge Status Pt. Type Provider Facility Loc./Unit Complaint [id number] 02/09/2015 11:51:00 02/09/2015 23:59:59 CLS Outpatient RENETTA CARDOZA APRN [id number] 11/24/2014 15:18:00 11/24/2014 23:59:59 CLS Outpatient RENETTA CARDOZA APRN [id number] 11/19/2014 16:14:00 11/19/2014 23:59:59 CLS Outpatient RENETTA CARDOZA APRN [id number] 10/09/2014 14:27:00 10/09/2014 23:59:59 CLS Outpatient JENNA LOVING MD [id number] 10/08/2014 14:16:00 10/08/2014 23:59:59 CLS Outpatient RENETTA CARDOZA APRN [id number] 08/26/2014 14:58:00 08/26/2014 23:59:59 CLS Outpatient RENETTA CARDOZA APRN Kristi [id number] 08/16/2014 00:00:00 08/16/2014 23:59:59 CLS Outpatient KAMRYN MATT MD [id number] 08/13/2014 09:07:00 08/13/2014 23:59:59 CLS Outpatient KAMRYN MATT MD [id number] 07/30/2014 10:40:00 07/30/2014 23:59:59 CLS Outpatient NANI RENETTA FORRESTER Kristi [id number] 07/16/2014 10:52:00 07/16/2014 23:59:59 CLS Outpatient KAMRYN MATT MD [id number] 07/10/2014 00:00:00 07/10/2014 23:59:59 CLS Outpatient KAMRYN MATT MD [id number] 06/09/2014 11:05:00 06/09/2014 23:59:59 CLS Outpatient JENNA LOVING MD [id number] 06/04/2014 08:06:00 06/04/2014 23:59:59 CLS Outpatient JNOH MYRICK BRANDEN Toshia [id number] 05/22/2014 15:18:00 05/22/2014 23:59:59 CLS Outpatient FRANK FINLEY APRN [id number] 05/06/2014 13:10:00 05/06/2014 23:59:59 CLS Outpatient NANI FORGE OPERATORRENETTA Kristi [id number] 04/21/2014 15:05:00 04/21/2014 23:59:59 CLS Outpatient NANI FORRESTER RENETTA Kristi [id number] 04/14/2014 08:24:00 04/14/2014 23:59:59 CLS Outpatient NANI MILLERLeland RENETTA Kristi [id number] 03/25/2014 14:20:00 03/25/2014 23:59:59 CLS Outpatient RENETTA CARDOZA APRN [id number] 03/05/2014 09:03:00 03/05/2014 23:59:59 CLS Outpatient BRANDEN BORJA DO [id number] 12/04/2013 08:38:00 12/04/2013 23:59:59 CLS Outpatient BRANDEN BORJA DO [id number] 12/03/2013 14:44:00 12/03/2013 23:59:59 CLS Outpatient RENETTA CARDOZA APRN [id number] 10/21/2013 08:43:00 10/21/2013 23:59:59 CLS Outpatient RENETTA CARDOZA APRN [id number] 09/18/2013 09:35:00 09/18/2013 23:59:59 CLS Outpatient BRANDEN BORJA DO [id number] 07/31/2013 12:23:00 07/31/2013 23:59:59 CLS Outpatient RENETTA CARDOZA APRN [id number] 01/23/2013 16:53:00 01/23/2013 23:59:59 CLS Outpatient [id number] 01/03/2013 16:14:00 01/03/2013 23:59:59 CLS Outpatient ERNESTINE ANDREW MD [id number] 11/07/2012 15:37:00 11/07/2012 23:59:59 CLS Outpatient [id number] 10/31/2012 16:45:00 10/31/2012 23:59:59 CLS Outpatient [id number] 10/02/2012 15:14:00 10/02/2012 23:59:59 CLS Outpatient [id number] 08/22/2012 18:20:00 08/22/2012 23:59:59 CLS Outpatient RENETTA CARDOZA APRN [id number] 07/10/2013 18:24:00 Document Registration [id number] 06/06/2013 15:31:00 Document Registration [id number] 05/31/2013 00:00:00 Document Registration [id number] 04/10/2013 09:37:00 Document Registration [id number] 03/28/2013 11:59:00 Document Registration [id number] 03/20/2013 17:17:00 Document Registration [id number] 12/05/2017 09:00:00 12/05/2017 23:59:59 CLS Outpatient CARMEN HOYOS APRN [facility] J44.9 [id number] 08/26/2017 18:00:00 08/27/2017 14:06:00 DIS Inpatient MORIS ERAZO, TAYLER Junior [facility] ICU ACUTE COPD EXACERBATION [id number] 08/20/2017 08:39:00 08/20/2017 10:00:00 DIS Emergency WHITNEY THORNTON MD [facility] ER ABD PAIN, HOT/COLD, LUNG PAIN [id number] 08/09/2017 08:55:00 08/09/2017 11:47:00 DIS Outpatient LEYLA TORRES MD [facility] LEFT KNEE CHONDROMYLASIA [id number] 08/07/2017 11:39:00 08/07/2017 13:02:00 DIS Outpatient LEYLA TORRES MD [facility] PREOP LEFT KNEE SCOPE [id number] 06/21/2017 06:05:00 06/21/2017 10:17:00 DIS Outpatient LEYLA TORRES MD [facility] TORN LATERAL MEDIAL MENISCUS [id number] 06/15/2017 09:12:00 06/15/2017 10:14:00 DIS Outpatient LEYLA TORRES MD [facility] PREOP TORN LATERAL MEDIAL MENICUS [id number] 05/25/2017 07:18:00 05/25/2017 23:59:59 CLS Outpatient SHAKA ERAZO FACCKAMRYN FACP CCDS [facility] CARD I25.10 [id number] 04/10/2017 10:40:00 04/10/2017 23:59:59 CLS Outpatient RENETTA CARDOZA [facility] RAD M25.561 PAIN IN RIGHT KNEE [id number] 03/31/2017 12:10:00 03/31/2017 12:53:00 DIS Emergency ORMA STRICKLAND APRN [facility] ER R KNEE PAIN [id number] 12/26/2016 15:18:00 12/26/2016 23:59:59 CLS Outpatient CARMEN HOYOS APRN [facility] RT COPED,DYSPNEA, TOBACCO DEPENDENCE [id number] 10/16/2015 08:25:00 10/16/2015 10:27:00 DIS Outpatient LANG HUDSON DO [facility] SDC [id number] 10/14/2015 05:34:00 10/14/2015 23:59:59 CLS Outpatient LANG HUDSON DO [facility] PREOP [id number] 12/01/2014 13:03:00 12/01/2014 23:59:59 CLS Outpatient RENETTA CARDOZA [facility] RAD [id number] 06/06/2014 13:50:00 09/04/2014 00:01:00 DIS Outpatient ELIS VICTOR [facility] CARD PALPITATIONS,SYNCOPE ,CP [id number] 08/25/2014 09:48:00 08/25/2014 23:59:59 CLS Outpatient RENETTA CARDOZA [facility] RT SEIZURE DISORDER, [id number] 07/22/2014 06:44:00 07/22/2014 13:00:00 DIS Outpatient KAMRYN MATT MD, FACC, FACP CCDS [facility] CATH CP,SYNCOPE, CAD [id number] 06/17/2014 08:56:00 06/17/2014 10:30:00 DIS Outpatient ELIS VICTOR [facility] CARD SYNCOPE,PALPITATIONS ,CP,SOB [id number] 06/06/2014 10:00:00 06/06/2014 12:37:00 DIS Emergency ROMA STRICKLAND APRN [facility] ER LEFT SIDE TINGLING/ WEAKNESS [id number] 12/09/2013 12:05:00 12/09/2013 23:59:59 CLS Outpatient KAMRYN MATT MD, FACC, FACP CCDS [facility] RAD CP,CAD, DYSPNEA [id number] 10/01/2013 08:09:00 10/01/2013 15:21:00 DIS Outpatient KAMRYN MATT MD, FACC FACP CCDS [facility] CATH FATIGUE,SOB, ANGINA [id number] 09/30/2013 09:11:00 09/30/2013 23:59:59 CLS Outpatient KAMRYN MATT MD, FACC FACP CCDS [facility] CARD ANGINA,SOB, FATIGUE,HTN [id number] 07/28/2013 22:00:00 07/29/2013 10:14:00 DIS Inpatient [id number] 07/08/2013 18:06:00 07/08/2013 19:47:00 DIS Emergency EFRAIN TEJEDA MD [facility] ER HEADACHE [id number] 05/03/2013 21:12:00 05/04/2013 07:20:00 DIS Outpatient RENETTA CARDOZA [facility] SLEEP SNORING,CHOKING/ GASPING, COPD,MORNING HEADACHE, [id number] 09/05/2014 10:00:00 Document Registration [id number] 08/31/2012 14:23:00 Document Registration [id number] 08/21/2012 20:32:00 Document Registration
== END 2017-12-10 11:51 | disposition home or self-care (01) ==
LOC: EDUNIT# 09:19 → ER 09:20
DX: J44.1 Chronic obstructive pulmonary disease with (acute) exacerbation (principal); F41.9 Anxiety disorder, unspecified; K21.9 Gastro-esophageal reflux disease without esophagitis; G40.909 Epilepsy, unspecified, not intractable, without status epilepticus; E78.00 Pure hypercholesterolemia, unspecified; I10 Essential (primary) hypertension; J44.9 Chronic obstructive pulmonary disease, unspecified; F17.210 Nicotine dependence, cigarettes, uncomplicated; Z79.82 Long term (current) use of aspirin; Z79.52 Long term (current) use of systemic steroids
CPT/HCPCS: 71046; 94640; 99283

== ENCOUNTER 2017-12-21 07:04 | Emergency (ER) | payer MEDICARE, MEDICAID ==
[~2017-12-21] VITALS: Ht 177.8 cm; Wt 124.3 kg
[~2017-12-21 07:04] MED LIST changes: +OSLT75C PO
[2017-12-21 07:56] LABS: BASOPHILS # (AUTO) 0.1 10^3/uL (0.0-0.1); BASOPHILS % (AUTO) 1 % (0-10); EOSINOPHILS # (AUTO) 0.2 10^3/uL (0.0-0.3); EOSINOPHILS % (AUTO) 3 % (0-10); HEMATOCRIT 48 % (40-54); HEMOGLOBIN 16.6 G/DL (13.3-17.7); LYMPHOCYTES # (AUTO) 0.9 X 10^3 (1.0-4.0); LYMPHOCYTES % (AUTO) 13 % (12-44); MEAN CORPUSCULAR HEMOGLOBIN 31 PG (25-34); MEAN CORPUSCULAR HGB CONC 34 G/DL (32-36); MEAN CORPUSCULAR VOLUME 91 FL (80-99); MEAN PLATELET VOLUME 9.1 FL (7.4-10.4); MONOCYTES # (AUTO) 0.5 X 10^3 (0.0-1.0); MONOCYTES % (AUTO) 7 % (0-12); NEUTROPHILS # (AUTO) 5.1 X 10^3 (1.8-7.8); NEUTROPHILS % (AUTO) 76 % (42-75); PLATELET COUNT 191 10^3/uL (130-400); WHITE BLOOD COUNT 6.7 10^3/uL (4.3-11.0)
[2017-12-21] MEDS ORDERED: RT-ALBUTEROL/IPRATROPIUM 3 ML (DUONEB) VIAL INH ONE (08:00)
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
--- NOTE | 2017-12-21 08:08 | Diagnostic Imaging Report ---
INDICATION: Cough, congestion and rhinorrhea. Portable AP upright view of the chest is obtained with comparison made to study of 12/10/2017. Overall heart size and pulmonary vascularity are within normal limits. There maybe slight right basilar atelectasis and/or pneumonitis however no consolidation, pneumothorax or pleural fluid is identified. IMPRESSION: Probable mild right basilar atelectasis and/or pneumonitis without other acute abnormality detected. Dictated by: Dictated on workstation # [id number]
[2017-12-21 08:10] LABS: ALANINE AMINOTRANSFERASE 31 U/L (0-55); ALBUMIN 3.6 GM/DL (3.2-4.5); ALKALINE PHOSPHATASE 120 U/L (40-136); BILIRUBIN,TOTAL 0.4 MG/DL (0.1-1.0); BUN/CREATININE RATIO 19; CALCIUM 8.5 MG/DL (8.5-10.1); CARBON DIOXIDE 21 MMOL/L (21-32); CHLORIDE 102 MMOL/L (98-107); CREATININE SERUM 0.94 MG/DL (0.60-1.30); GFR ESTIMATED > 60; GLUCOSE 180 MG/DL (70-105); POTASSIUM 3.7 MMOL/L (3.6-5.0); SODIUM 135 MMOL/L (135-145)
[2017-12-21] MEDS ORDERED: RT-ALBUTEROL SULF 2.5 MG/3 ML PRE-MIX VIAL INH SCH (08:30)
[2017-12-21] MEDS ORDERED: methylPREDNISolone 125 MG (Solu-MEDROL) VIAL IM ONE (09:45)
[2017-12-21] MEDS ORDERED: PRD20T PO (09:55)
[2017-12-21 10:15] VITALS: BP 140/74
== END 2017-12-21 10:15 | disposition home or self-care (01) ==
LOC: EDUNIT# 07:04 → ER 07:06
DX: J44.1 Chronic obstructive pulmonary disease with (acute) exacerbation (principal); G47.30 Sleep apnea, unspecified; E78.00 Pure hypercholesterolemia, unspecified; I10 Essential (primary) hypertension; G40.909 Epilepsy, unspecified, not intractable, without status epilepticus; K21.9 Gastro-esophageal reflux disease without esophagitis; F41.9 Anxiety disorder, unspecified; F12.10 Cannabis abuse, uncomplicated; F17.210 Nicotine dependence, cigarettes, uncomplicated; Z82.49 Family history of ischemic heart disease and other diseases of the circulatory system; Z79.52 Long term (current) use of systemic steroids; Z88.8 Allergy status to other drugs, medicaments and biological substances; Z79.82 Long term (current) use of aspirin
CPT/HCPCS: 36415; 71045; 80053; 85025; 94640; 96372

== ENCOUNTER 2018-01-18 09:00 | Outpatient (RCR) | payer MEDICARE, MEDICAID | END 2018-04-02 | disposition home or self-care (01) | LOC: PULM 09:00 | PROVIDERS: ATTEND Nurse Practitioner Family | DX: J44.9 Chronic obstructive pulmonary disease, unspecified (principal); F12.10 Cannabis abuse, uncomplicated; Z72.0 Tobacco use ==

== ENCOUNTER 2018-05-03 10:00 | Outpatient (CLI) | payer MEDICARE, MEDICAID ==
[~2018-05-03] VITALS: Ht 177.8 cm; Wt 124.3 kg
== END 2018-05-03 10:41 ==
LOC: PREOP 10:00
PROVIDERS: ATTEND Surgery
DX: Z01.818 Encounter for other preprocedural examination (principal)

== ENCOUNTER 2018-05-08 09:27 | Day surgery (SDC) | payer MEDICARE, MEDICAID ==
[~2018-05-08] VITALS: Ht 177.8 cm; Wt 124.3 kg
[2018-05-08 09:40] VITALS: BP 146/80
[2018-05-08] MEDS ORDERED: LACTATED RINGERS 1,000 ML IV PRN (09:45)
[2018-05-08] MEDS ORDERED: LACTATED RINGERS 1,000 ML IV ONE (09:47)
[2018-05-08] MEDS ORDERED: MIDAZOLAM 5 MG/5 ML (VERSED) VIAL ONE (10:17)
[2018-05-08] MEDS ORDERED: PROPOFOL INJECTION 50 ML IV ONE (10:17)
--- NOTE | 2018-05-08 10:18 | Progress Note-Pre Operative ---
Pre-Operative Progress Note H&P Reviewed The H&P was reviewed, patient examined and no changes noted. Date Seen by Provider: May 08, 2018 Time Seen by Provider: : Date H&P Reviewed: May 08, 2018 Time H&P Reviewed: : Pre-Operative Diagnosis: bright red blood per rectum, family history colon cancer LANG HUDSON DO May 08, 2018 10:18
[2018-05-08 11:40] VITALS: BP 142/79
[2018-05-08 12:21] VITALS: BP 137/78
[2018-05-08 12:30] VITALS: BP 137/78
--- NOTE | 2018-05-08 12:35 | Progress Note-Post Operative ---
Post-Operative Progess Note Surgeon (s)/Director Voice (s) Surgeon LANG HUDSON DO Director Voice: na Pre-Operative Diagnosis bright red blood per rectum, family history colon cancer Post-Operative Diagnosis colon polyps Procedure & Operative Findings Date of Procedure 05/08/18 Procedure Performed/Findings colonoscopy c hot bx polypectomy x 2 and snare polypectomy x3 and dino inking 2 locations of snare polypectomies Anesthesia Type per mda Estimated Blood Loss Estimated blood loss (mL): none Specimens/Packing Specimens Removed colon polyps LANG HUDSON DO May 08, 2018 12:35
--- NOTE | 2018-05-08 14:09 | Anesthesia-General Post-Op ---
MAC Patient Condition Mental Status/LOC: Same as Preop Cardiovascular: Satisfactory Nausea/Vomiting: Absent Respiratory: Satisfactory Pain: Controlled Complications: Absent Post Op Complications Complications None Follow Up Care/Instructions Patient Instructions None needed. Anesthesiology Discharge Order Discharge Order Patient is doing well, no complaints, stable vital signs, no apparent adverse anesthesia problems. No complications reported per nursing. KARLO WILEY CRNA May 08, 2018 14:09
--- NOTE | 2018-05-08 14:27 | OPERATIVE REPORT ---
DATE OF SERVICE: 05/08/2018 PREOPERATIVE DIAGNOSES: Bright red blood per rectum, family history of colon cancer. POSTOPERATIVE DIAGNOSES: Colon polyps. PROCEDURES: Colonoscopy with hot biopsy polypectomy x2 and snare polypectomy x3 and Vaishali inking at two locations of snare polypectomies. SURGEON: Lang Castro DO ANESTHESIA: Per MDA. ESTIMATED BLOOD LOSS: None. COMPLICATIONS: None. SPECIMENS: Transverse colon polyp, descending colon polyp, small sigmoid colon polyp, large sigmoid colon polyp, medium size sigmoid colon polyp. INDICATIONS: The patient is a 57-year-old male with family history of colon cancer and has had episodes of bright red blood per rectum. He understands risks and benefits of procedure and wished to proceed with procedure. Consent was signed on the chart. DESCRIPTION OF PROCEDURE: The patient was taken to the endoscopy suite, placed in left lateral recumbent position. Timeout was performed. Digital rectal exam was performed. There were no palpable polyps, masses or ulcerations. The scope was inserted in the rectum, advanced all the way to the cecum with minimal difficulty. Prep was adequate. Scope was then slowly retracted back. There were no polyps, masses or ulcerations within the cecum or ascending colon. Within the transverse colon, a polyp was present, which hot biopsy polypectomy was performed. Scope was continuously retracted back until in the descending colon where a slightly larger polyp was present, which snare polypectomy was performed. This area was inked with a 2 mL of Vaishali ink around the polyp. Scope was then continued to be slowly retracted back. Another small polyp was encountered in the proximal sigmoid, which hot biopsy polypectomy was performed. As the scope was continued to be slowly retracted back, there were two larger polyps near each other. The area was inked with 2 mL of Vaishali ink around these areas and snare polypectomies were performed. One was able to be suctioned. The other one had to be placed in a Damico basket and removed. The scope was then reinserted up to the level and the scope was continued to be slowly retracted back. There are no other polyps, masses or ulcerations within the remainder of the sigmoid colon and in the rectum, scope was retroflexed noting just some internal hemorrhoids. No other pathology noted. Scope was returned to its normal position, slowly withdrawn until completely removed. The patient tolerated the procedure well without any complications, taken to recovery room in stable condition. RECOMMENDATIONS: The patient will follow up in the office in 2 weeks. He will need a repeat colonoscopy in 6 months to reevaluate the colon and the areas. If he has any problems prior to that, he should be reevaluated at that time. Job ID: [id number] DocumentID: [id number] Dictated Date: 05/08/2018 12:35:48 Instrumentation Technician Date: 05/08/2018 14:27:02 Dictated By: LANG CASTRO DO
== END 2018-05-08 12:30 | disposition home or self-care (01) ==
LOC: ENDO 09:27
PROVIDERS: ATTEND Surgery
DX: K62.5 Hemorrhage of anus and rectum (principal); D12.5 Benign neoplasm of sigmoid colon; K63.5 Polyp of colon; K64.8 Other hemorrhoids; Z80.0 Family history of malignant neoplasm of digestive organs; I25.10 Atherosclerotic heart disease of native coronary artery without angina pectoris; I10 Essential (primary) hypertension; J44.9 Chronic obstructive pulmonary disease, unspecified; G47.33 Obstructive sleep apnea (adult) (pediatric); F17.210 Nicotine dependence, cigarettes, uncomplicated; Z79.82 Long term (current) use of aspirin; Z79.899 Other long term (current) drug therapy

== ENCOUNTER → 2018-07-20 | Outpatient (CLI) | payer MEDICARE, MEDICAID ==
[~2018-07-20] MED LIST changes: +HYDR-4226 PO; -HYDR-757 PO
== END ==
LOC: CARD 10:53
PROVIDERS: ATTEND Internal Medicine Cardiovascular Disease
DX: I25.10 Atherosclerotic heart disease of native coronary artery without angina pectoris (principal); I77.89 Other specified disorders of arteries and arterioles; E78.5 Hyperlipidemia, unspecified; R06.02 Shortness of breath; I73.9 Peripheral vascular disease, unspecified; Z72.0 Tobacco use
CPT/HCPCS: 93306

== ENCOUNTER → 2018-07-24 | Outpatient (CLI) | payer MEDICARE, MEDICAID | LOC: RAD 12:53 | PROVIDERS: ATTEND Internal Medicine Cardiovascular Disease | DX: I25.10 Atherosclerotic heart disease of native coronary artery without angina pectoris (principal); I65.23 Occlusion and stenosis of bilateral carotid arteries; E78.4 Other hyperlipidemia; I70.213 Atherosclerosis of native arteries of extremities with intermittent claudication, bilateral legs; I10 Essential (primary) hypertension; F17.200 Nicotine dependence, unspecified, uncomplicated | CPT/HCPCS: 93923 ==

== ENCOUNTER → 2018-08-20 | Outpatient (CLI) | payer MEDICARE, MEDICAID ==
--- NOTE | 2018-08-20 13:35 | Diagnostic Imaging Report ---
INDICATION: Right scrotal swelling. EXAMINATION: Duplex scrotal ultrasound. TECHNIQUE: Ultrasound of the scrotum was done with grayscale, spectral waveform, and color Doppler analysis. FINDINGS: The right testicle measures 3.8 x 2.6 x 2.9 cm. Left testicle measures 4.5 x 2.3 x 2.8 cm. The testes have homogeneous echogenicity and have normal and symmetric color fill. There is normal spectral waveform analysis. There is a right hydrocele. Epididymides appear normal bilaterally. There is no varicocele. IMPRESSION: Right hydrocele. Dictated by: Dictated on workstation # [id number]
== END ==
LOC: RAD 11:34
PROVIDERS: ATTEND Nurse Practitioner
DX: N43.3 Hydrocele, unspecified (principal)
CPT/HCPCS: 76870

== ENCOUNTER 2018-11-16 13:45 | Outpatient (CLI) | payer MEDICARE, MEDICAID ==
[~2018-11-16] VITALS: Ht 177.8 cm; Wt 114.8 kg
== END 2018-11-16 14:37 | disposition home or self-care (01) ==
LOC: PREOP 13:45
PROVIDERS: ATTEND Surgery
DX: Z01.818 Encounter for other preprocedural examination (principal)

== ENCOUNTER 2018-11-20 07:55 | Day surgery (SDC) | payer MEDICARE, MEDICAID ==
[~2018-11-20] VITALS: Ht 177.8 cm; Wt 114.8 kg
[2018-11-20] MEDS ORDERED: LACTATED RINGERS 1,000 ML IV ONE (08:00)
[2018-11-20] MEDS ORDERED: LACTATED RINGERS 1,000 ML IV STA (08:06)
[2018-11-20] MEDS ORDERED: MIDAZOLAM 2 MG/2 ML (VERSED) VIAL ONE (08:19)
[2018-11-20] MEDS ORDERED: PROPOFOL INJECTION 50 ML IV ONE ×2 (08:19→09:09)
[2018-11-20] MEDS ORDERED: RT-ALBUTEROL SULF 2.5 MG/3 ML PRE-MIX VIAL ONE (08:26)
--- NOTE | 2018-11-20 08:31 | Progress Note-Pre Operative ---
Pre-Operative Progress Note H&P Reviewed The H&P was reviewed, patient examined and no changes noted. Date Seen by Provider: Nov 20, 2018 Time Seen by Provider: 08:30 Date H&P Reviewed: Nov 20, 2018 Time H&P Reviewed: 08:31 Pre-Operative Diagnosis: hx colon polyps LANG HUDSON DO Nov 20, 2018 08:31
[2018-11-20] MEDS ORDERED: RT-ALBUTEROL/IPRATROPIUM 3 ML (DUONEB) VIAL INH ONE (08:45)
--- NOTE | 2018-11-20 09:26 | Progress Note-Post Operative ---
Post-Operative Progess Note Surgeon (s)/Recreation Director (s) Surgeon LANG HUDSON DO Recreation Director: na Pre-Operative Diagnosis hx colon polyps Post-Operative Diagnosis colon polyps Procedure & Operative Findings Date of Procedure 11/20/18 Procedure Performed/Findings colonoscopy c hot bx polypectomy x 3 Anesthesia Type per sensitized paper tester Estimated Blood Loss Estimated blood loss (mL): none Specimens/Packing Specimens Removed cecum, ascending and rectal polyp LANG HUDSON DO Nov 20, 2018 09:26
--- NOTE | 2018-11-20 09:27 | Discharge Inst-Simple/Standard ---
Discharge Inst-Standard Patient Instructions/Follow Up Plan of Care/Instructions/FU: 2 weeks Gloria Activity as Tolerated: Yes Discharge Diet: Regular Diet LANG HUDSON DO Nov 20, 2018 09:27
[2018-11-20 09:50] VITALS: BP 138/66
[2018-11-20 10:13] VITALS: BP 129/76
[2018-11-20 10:14] VITALS: BP 138/66
--- NOTE | 2018-11-20 10:21 | Anesthesia-General Post-Op ---
MAC Patient Condition Mental Status/LOC: Same as Preop Cardiovascular: Satisfactory Nausea/Vomiting: Absent Respiratory: Satisfactory Pain: Controlled Complications: Absent Post Op Complications Complications None Follow Up Care/Instructions Patient Instructions None needed. Anesthesiology Discharge Order Discharge Order Patient is doing well, no complaints, stable vital signs, no apparent adverse anesthesia problems. No complications reported per nursing. DANIEL TYSON CRNA Nov 20, 2018 10:21
--- NOTE | 2018-11-20 12:34 | OPERATIVE REPORT ---
DATE OF SERVICE: 11/20/2018 PREOPERATIVE DIAGNOSIS: History of colon polyps. POSTOPERATIVE DIAGNOSIS: Colon polyps. PROCEDURE: Colonoscopy with hot biopsy polypectomy x3. SURGEON: Lang Castro DO ANESTHESIA: Per STOPPER SETTER. ESTIMATED BLOOD LOSS: None. COMPLICATIONS: None. INDICATIONS: The patient is a 57-year-old male with history of colon polyps. He understands risks and benefits of procedure and wished to proceed with procedure. Consent was signed on the chart. DESCRIPTION OF PROCEDURE: The patient was taken to the endoscopy suite, placed in left lateral recumbent position. Timeout was performed. Digital rectal exam was performed. There were no palpable polyps, masses or ulcerations. The scope was inserted in the rectum and advanced all the way to the cecum with minimal difficulty. The patient had a lot of liquid stool and a particulate present within the colon. So, loss of irrigation and suction was performed to get visualization of the colonic wall, a moderate prep. In the cecum, small polyp was present, which hot biopsy polypectomy was performed. Scope was then slowly retracted back into the ascending colon. Another small polyp was present, which hot biopsy polypectomy was performed. Scope was continuously retracted back. There were no polyps, masses or ulcerations within the remainder of the ascending, transverse, descending and sigmoid colon. Once in the rectum, there was a small polyp, which hot biopsy polypectomy was performed. Scope was also retroflexed noting internal hemorrhoids. Scope was returned to its normal position, slowly withdrawn until completely removed. The patient tolerated the procedure well without any complications and sent to recovery room in stable condition. RECOMMENDATIONS: The patient recommended repeat colonoscopy in 3 years. If he has any issues before that he should be seen at that time. We would recommend likely 2 day prep. The patient will follow up in the office in two weeks to discuss pathology results and see how he is doing at that time. Job ID: [id number] DocumentID: [id number] Dictated Date: 11/20/2018 09:30:30 Cna Per Diem Date: 11/20/2018 12:34:21 Dictated By: LANG CASTRO DO
== END 2018-11-20 10:16 | disposition home or self-care (01) ==
LOC: ENDO 07:55
PROVIDERS: ATTEND Surgery
DX: Z12.11 Encounter for screening for malignant neoplasm of colon (principal); D12.2 Benign neoplasm of ascending colon; K62.1 Rectal polyp; I10 Essential (primary) hypertension; I25.10 Atherosclerotic heart disease of native coronary artery without angina pectoris; E78.5 Hyperlipidemia, unspecified; J44.9 Chronic obstructive pulmonary disease, unspecified; G47.33 Obstructive sleep apnea (adult) (pediatric); R56.9 Unspecified convulsions; K21.9 Gastro-esophageal reflux disease without esophagitis; F17.210 Nicotine dependence, cigarettes, uncomplicated; E66.9 Obesity, unspecified; Z68.36 Body mass index [BMI] 36.0-36.9, adult; Z79.02 Long term (current) use of antithrombotics/antiplatelets; Z79.82 Long term (current) use of aspirin; Z79.899 Other long term (current) drug therapy
CPT/HCPCS: 94640

== ENCOUNTER 2019-03-19 07:13 | Day surgery (SDC) | payer MEDICAID, MEDICARE ==
[~2019-03-19] VITALS: Ht 182.9 cm; Wt 117.9 kg
[2019-03-19] VITALS (19 sets, daily range): BP systolic 105–159; BP diastolic 60–86
--- OUTSIDE RECORDS SUMMARY | 2019-03-19 07:20 | XMS REPORT ---
Author Author Migration, Doctor Organization [facility] Address Unknown Phone Unavailable Care Team Providers Care Skilled Laborer Name Role Phone Migration, Doctor Unavailable Unavailable PROBLEMS Type Condition ICD9-CM Code [id number] Code Onset Dates Condition Status SNOMED Code Problem Edema, due to unspecified malnutrition type, unspecified type R60.9 Active 928810104 Problem Chronic obstructive pulmonary disease, unspecified COPD type J44.9 Active 17143639 Problem Coronary artery disease involving [place] heart, angina presence unspecified, unspecified vessel or lesion type I25.10 Active 80695953 Problem Hypertension, benign I10 Active 06146122 Problem LAURY (obstructive sleep apnea) G47.33 Active 66842555 Problem Palpitations R00.2 Active 51875507 Problem Other chronic pain G89.29 Active 72829426 Problem Non morbid obesity due to excess calories E66.09 Active 056976053 Problem COPD exacerbation J44.1 Active 990818412 Problem Tobacco abuse Z72.0 Active 09871078 Problem Erectile dysfunction, unspecified erectile dysfunction type N52.9 Active 005802596 Problem Morbid obesity due to excess calories E66.01 Active 344808548 Problem Non morbid obesity E66.9 Active 947746176 Problem Panlobular emphysema J43.1 Active 4982497 Problem Other obesity due to excess calories E66.09 Active 608992274 Problem COPD with acute exacerbation J44.1 Active 927316850 ALLERGIES No Information ENCOUNTERS Encounter Location Date Diagnosis [facility] [address] [id number] [address] 09 Jan, 2019 [facility] [address] [id number] [address] 30 Aug, 2018 Wheezes R06.2 and Pneumonia J18.9 [facility] [address] [id number] [address] 13 Aug, 2018 Erectile dysfunction, unspecified erectile dysfunction type N52.9 [place] [address] [address] Aug, Non morbid obesity E66.9 [facility] [id number] [place] [address] Jul, [facility] [id number] [place] [address] Jul, Testicular swelling, right N50.89 [place] [address] [address] Jul, Callus L84 [place] [id number] [place] [address] Jun, Non morbid obesity E66.9 ; COPD exacerbation J44.1 ; 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 and Dermatofibroma D23.9 [place] [id number] [place] [address] May, Non morbid obesity E66.9 and Grade II hemorrhoids K64.1 [place] [id number] [place] [address] Mar, [place] [id number] [place] [address] 04 Mar, 2018 Cough 786.2 ; Medicare annual wellness visit, initial Z00.00 ; Morbid obesity due to excess calories E66.01 ; Chronic obstructive pulmonary disease, unspecified COPD type J44.9 ; Coronary artery disease involving [place] heart, angina presence unspecified, unspecified vessel or lesion type I25.10 ; Hypertension, benign I10 and LAURY (obstructive sleep apnea) G47.33 [place] [id number] [place] [address] February, Medicare annual wellness visit, initial Z00.00 ; Morbid obesity due to excess calories E66.01 ; Chronic obstructive pulmonary disease, unspecified COPD type J44.9 ; Coronary artery disease involving [place] heart, angina presence unspecified, unspecified vessel or lesion type I25.10 ; Hypertension, benign I10 ; LAURY (obstructive sleep apnea) G47.33 ; Family history of colon cancer Z80.0 ; Other chronic pain G89.29 and Pain in right hip M25.551 [place] [address] [address] Jan, [place] [id number] [place] [address] Nov, Panlobular emphysema J43.1 [place] [address] [address] Nov, COPD exacerbation J44.[address] [address] Nov, Viral URI J06.9 [place] [address] [address] Nov, [place] [address] [address] Nov, [place] [address] [address] Sep, Other obesity due to excess calories E66.09 and Body mass index (BMI) of 36.0-36.9 in adult Z68.36 [place] [id number] [place] [address] Aug, [place] [address] [address] Aug, [place] [id number] [place] [address] Aug, Coronary artery disease involving [place] heart, angina presence unspecified, unspecified vessel or lesion type I25.10 and Chronic obstructive pulmonary disease, unspecified COPD type J44.9 [facility] [id number] [place] [address] Jul, COPD with acute exacerbation J44.1 [place] [id number] [place] [address] Jul, Non morbid obesity E66.9 [place] [address] [address] Jun, Panlobular emphysema J43.1 ; Tobacco abuse Z72.0 ; Tobacco abuse counseling Z71.6 and Non morbid obesity E66.9 [place] [address] [address] Apr, [place] [address] [address] Apr, [place] [address] [address] Mar, COPD exacerbation J44.1 [place] [address] [address] Mar, Tear of medial meniscus of right knee, current, unspecified tear type, initial encounter S83.241A [place] [address] [address] Mar, Pain in right knee M25.561 [facility] [id number] [place] [address] February, Pain in right knee M25.561 [place] [id number] [place] [address] February, Pain in right knee M25.561 [place] [id number] [place] [address] Dec, [place] [address] [address] Nov, [facility] [id number] [place] [address] Nov, Bronchitis J40 and Wheezing R06.2 [place] [address] [address] Oct, [place] [id number] [place] [address] Oct, [place] [id number] [place] [address] Oct, Non morbid obesity due to excess calories E66.09 ; Other chronic pain G89.29 and Pain in right knee M25.561 [place] [id number] [place] [address] Oct, Non morbid obesity due to excess calories E66.09 ; Other chronic pain G89.29 and Pain in right knee M25.561 [place] [id number] [place] [address] Oct, Pain in right knee M25.561 and Other chronic pain G89.29 [place] [address] [address] Aug, Encounter for immunization Z23 [place] [id number] [place] [address] Aug, [place] [id number] [place] [address] Aug, [place] [id number] [place] [address] Jun, Common wart B07.8 [facility] [place] [id number] [place] [address] May, Cellulitis of left elbow L03.114 [place] [id number] [place] [address] Mar, Torticollis, acute M43.6 and Leg pain, left M79.605 [place] [id number] [place] [address] February, Leg pain, left M79.605 [facility] [address] [address] Dec, COPD exacerbation J44.1 [facility] [address] [address] Dec, [facility] [address] [address] Oct, Chronic obstructive pulmonary disease, unspecified COPD type J44.9 and Hyperglycemia R73.9 [facility] [address] [address] Sep, Tobacco abuse Z72.0 ; Coronary artery disease involving [place] heart, angina presence unspecified, unspecified vessel or lesion type I25.10 and Morbid obesity due to excess calories E66.01 [place] [address] [address] Sep, [place] [address] [address] Sep, Leg pain, left M79.605 [place] [address] [address] Sep, [place] [address] [address] Sep, [place] [address] [address] Aug, Essential (primary) hypertension I10 [place] [address] [address] Aug, Encounter for immunization Z23 [place] [address] [address] Aug, [place] [address] [address] May, Chronic airway obstruction, not elsewhere classified 496 [address] [address] [address] [address] May, [facility] [address] [address] May, [facility] [id number] [place] [address] May, Acute bronchitis 466.0 [facility] [id number] [place] [address] May, [facility] [id number] [place] [address] May, Hyperglycemia 790.29 [facility] [id number] [place] [address] Apr, [facility] [id number] [place] [address] Apr, Cough 786.2 ; Hyperglycemia 790.29 and COPD (chronic obstructive pulmonary disease) 496 [facility] [id number] [place] [address] Mar, Cough 786.2 ; Elevated glucose 790.29 ; Wheezing 786.07 ; COPD exacerbation 491.21 and Nicotine dependence 305.1 [facility] [id number] [place] [address] Mar, High risk medication use V58.69 [facility] [id number] [place] [address] Mar, High risk medication use V58.69 and Benign hypertension 401.1 [facility] [address] [place] [address] Mar, [facility] [id number] [place] [address] February, [facility] [id number] [place] [address] February, [facility] [address] [place] [address] Jan, [address] [id number] [place] [address] 30 Jan, 2015 Benign hypertension 401.1 [facility] [place] [facility] [address] [id number] [place] [address] 14 Jan, 2015 [facility] [place] [facility] [address] [id number] [place] [address] 13 Jan, 2015 [facility] [place] [facility] [address] [id number] [place] [address] 27 Dec, 2014 [facility] [place] [facility] [address] [id number] [place] [address] 27 Dec, 2014 [facility] [place] [facility] [address] [id number] [place] [address] 26 Dec, 2014 [facility] [place] [facility] [address] [id number] [place] [address] 18 Dec, 2014 [facility] [place] [facility] [address] [id number] [place] [address] 18 Dec, 2014 [facility] [place] [facility] [address] [id number] [place] [address] 2014 [facility] [place] [facility] [address] [id number] [place] [address] 2014 [facility] [place] [facility] [address] [id number] [place] [address] 13 Dec, 2014 [facility] [place] [facility] [address] [id number], [place] [address] 13 Dec, 2014 [facility] [place] [facility] [address] [id number] [place] [address] 06 Dec, 2014 [facility] [place] [facility] [address] [id number] [place] [address] 06 Dec, 2014 [facility] [place] [facility] [address] [id number], [place] [address] 05 Dec, 2014 [facility] [place] [facility] [address] [id number], [place] [address] Dec, [facility] [place] [facility] [address] [id number] [place] [address] Dec, [facility] [place] [facility] [address] [id number] [place] [address] Dec, [facility] [place] [facility] [address] [id number] [place] [address] Nov, [facility] [place] [facility] [address] [id number] [place] [address] Nov, [facility] [place] [facility] [address] [id number] [place] [address] Nov, [facility] [place] [facility] [address] [id number] [place] [address] Nov, [facility] [place] [facility] [address] [id number] [place] [address] Oct, [facility] [place] [facility] [address] [id number] [place] [address] Oct, [facility] [place] [facility] [address] [id number] [place] [address] Oct, [facility] [place] [facility] [address] [id number] [place] [address] Oct, [facility] [place] [facility] [address] [id number] [place] [address] Oct, [facility] [place] [facility] [address] [id number], [place] [address] Oct, [facility] [place] [facility] [address] [id number] [place] [address] Oct, [facility] [place] [facility] [address] [id number] [place] [address] Oct, [facility] [place] [facility] [address] [id number], [place] [address] Sep, [facility] [place] [facility] [address] [id number] [place] [address] Sep, [facility] [place] [facility] [address] [id number] [place] [address] Sep, [facility] [place] [facility] [address] [id number] [place] [address] Sep, [facility] [place] [facility] [address] [id number] [place] [address] Sep, [facility] [place] [facility] [address] [id number] [place] [address] Sep, [facility] [place] [facility] [address] [id number] [place] [address] Sep, [facility] [place] [facility] [address] [id number] [place] [address] Sep, [facility] [place] [facility] [address] [id number] [place] [address] Aug, [facility] [place] [facility] [address] [id number] [place] [address] Aug, [facility] [place] [facility] [address] [id number] [place] [address] Aug, [facility] [place] [facility] [address] [id number] [place] [address] Aug, [facility] [place] [facility] [address] [id number] [place] [address] Jul, [facility] [place] [facility] [address] [id number] [place] [address] Jul, [facility] [place] [facility] [address] [id number] [place] [address] Jul, [facility] [place] [facility] [address] [id number] [place] [address] Jul, [facility] [place] [facility] [address] [id number], [place] [address] Jul, [facility] [place] [facility] [address] [id number] [place] [address] Jul, [facility] [place] [facility] [address] [id number] [place] [address] Jul, [facility] [place] [facility] [address] [id number] [place] [address] Jul, [facility] [place] [facility] [address] [id number] [place] [address] Jul, [facility] [place] [facility] [address] [id number] [place] [address] Jul, [facility] [place] [facility] [address] [id number] [place] [address] Jul, [facility] [place] [facility] [address] [id number] [place] [address] Jul, [facility] [place] [facility] [address] [id number], [place] [address] Jul, [facility] [place] [facility] [address] [id number] [place] [address] Jul, [facility] [place] [facility] [address] [id number], [place] [address] Jul, [facility] [place] [facility] [address] [id number], [place] [address] Jul, [facility] [place] [facility] [address] [id number], [place] [address] Jul, [facility] [place] [facility] [address] [id number] [place] [address] Jul, [facility] [place] [facility] [address] [id number], [place] [address] Jul, [facility] [place] [facility] [address] [id number], [place] [address] Jul, [facility] [place] [facility] [address] [id number] [place] [address] Jul, [facility] [place] [facility] [address] [id number] [place] [address] Jul, [facility] [place] [facility] [address] [id number] [place] [address] 29 Jun, 2013 [facility] [place] [facility] [address] [id number] [place] [address] 29 Jun, 2013 [facility] [place] [facility] [address] [id number] [place] [address] Jun, 2013 [facility] [place] [facility] [address] [id number] [place] [address] Jun, 2013 [facility] [place] [facility] [address] [id number] [place] [address] 05 Jun, 2013 [facility] [place] [facility] [address] [id number] [place] [address] 05 Jun, 2013 [facility] [place] [facility] [address] [id number] [place] [address] Jun, 2013 [facility] [place] [facility] [address] [id number] [place] [address] Jun, 2013 [facility] [place] [facility] [address] [id number] [place] [address] Jun, 2013 [facility] [place] [facility] [address] [id number] [place] [address] Jun, 2013 [facility] [place] [facility] [address] [id number] [place] [address] May, [facility] [place] [facility] [address] [id number] [place] [address] May, [facility] [place] [facility] [address] [id number] [place] [address] May, [facility] [place] [facility] [address] [id number] [place] [address] May, [facility] [place] [facility] [address] [id number] [place] [address] May, [facility] [place] [facility] [address] [id number] [place] [address] May, [facility] [place] [facility] [address] [id number] [place] [address] May, [facility] [place] [facility] [address] [id number] [place] [address] May, [facility] [place] [facility] [address] [id number] [place] [address] Apr, [facility] [place] [facility] [address] [id number] [place] [address] Apr, [facility] [place] [facility] [address] [id number] [place] [address] Apr, [facility] [place] [facility] [address] [id number] [place] [address] Apr, [facility] [place] [facility] [address] [id number] [place] [address] Apr, [facility] [place] [facility] [address] [id number] [place] [address] Apr, [facility] [place] [facility] [address] [id number] [place] [address] Mar, [facility] [place] [facility] [address] [id number] [place] [address] Mar, [facility] [place] [facility] [address] [id number] [place] [address] Mar, [facility] [place] [facility] [address] [id number] [place] [address] Mar, [facility] [place] [facility] [address] [id number] [place] [address] Mar, [facility] [place] [facility] [address] [id number], [place] [address] Mar, [facility] [place] [facility] [address] [id number] [place] [address] Mar, [facility] [place] [facility] [address] [id number] [place] [address] Mar, [facility] [place] [facility] [address] [id number] [place] [address] February, [facility] [place] [facility] [address] [id number] [place] [address] February, [facility] [place] [facility] [address] [id number] [place] [address] February, [facility] [place] [facility] [address] [id number] [place] [address] February, [facility] [place] [facility] [address] [id number] [place] [address] February, [facility] [place] [facility] [address] [id number] [place] [address] Jan, [facility] [place] [facility] [address] [id number] [place] [address] Jan, [facility] [place] [facility] [address] [id number] [place] [address] Nov, [facility] [place] [facility] [address] [id number] [place] [address] Nov, [facility] [place] [facility] [address] [id number] [place] [address] Nov, [facility] [place] [facility] [address] [id number] [place] [address] Nov, [facility] [place] [facility] [address] [id number] [place] [address] Nov, [facility] [place] [facility] [address] [id number] [place] [address] Nov, [facility] [place] [facility] [address] [id number] [place] [address] Oct, [facility] [place] [facility] [address] [id number] [place] [address] Oct, [facility] [place] [facility] [address] [id number] [place] [address] Oct, [facility] [place] [facility] [address] [id number] [place] [address] Sep, [facility] [address] [id number] [place] [address] Sep, [facility] [place] [facility] [address] [id number] [place] [address] Aug, [facility] [address] [id number] [place] [address] Aug, [facility] [address] [id number] [place] [address] Aug, [facility] [place] [facility] [address] [id number] [place] [address] Aug, [facility] [place] [facility] [address] [id number] [place] [address] Jul, [facility] [place] [facility] [address] [id number] [place] [address] Jul, [facility] [place] [facility] [address] [id number], [place] [address] Jul, [facility] [place] [facility] [address] [id number] [place] [address] Jul, [facility] [place] [facility] [address] [id number] [place] [address] Jul, [facility] [place] [facility] [address] [id number], [place] [address] Jun, [facility] [place] [facility] [address] [id number], [place] [address] Jun, [facility] [place] [facility] [address] [id number] [place] [address] May, [facility] [place] [facility] [address] [id number] [place] [address] May, [facility] [place] [facility] [address] [id number] [place] [address] May, [facility] [place] [facility] [address] [id number] [place] [address] May, [facility] [place] [facility] [address] [id number] [place] [address] May, [facility] [place] [facility] [address] [id number] [place] [address] May, [facility] [place] [facility] [address] [id number] [place] [address] Apr, [facility] [place] [facility] [address] [id number] [place] [address] Apr, [facility] [place] [facility] [address] [id number] [place] [address] Apr, [facility] [place] [facility] [address] [id number] [place] [address] Apr, [facility] [place] [facility] [address] [id number] [place] [address] Apr, [facility] [place] [facility] [address] [id number] [place] [address] Mar, [facility] [place] [facility] [address] [id number] [place] [address] Mar, [facility] [place] [facility] [address] [id number] [place] [address] Mar, [facility] [place] [facility] [address] [id number] [place] [address] February, [facility] [place] [facility] [address] [id number] [place] [address] February, [facility] [address] [id number] [place] [address] February, [facility] [address] [id number] [place] [address] Dec, [facility] [facility] [address] [id number] [place] [address] Dec, [facility] [address] [id number] [place] [address] Dec, [facility] [address] [id number] [place] [address] Oct, [facility] [address] [id number] [place] [address] Oct, [facility] [address] [id number] [place] [address] Sep, [facility] [address] [id number] [place] [address] Sep, [facility] [address] [id number] [place] [address] Aug, [facility] [address] [id number] [place] [address] Aug, [facility] [address] [id number] [place] [address] Aug, [facility] [address] [id number] [place] [address] Aug, [facility] [place] [facility] [address] [id number] [place] [address] Aug, [facility] [address] [id number] [place] [address] Aug, [facility] [address] [id number] [place] [address] Jul, [facility] [address] [id number] [address] Jul, [facility] [place] [address] [id number] [address] Jul, [facility] [place] [id number] [address] Jul, [facility] [place] [address] [id number] [address] Jul, [facility] [place] [id number] [address] Jul, [facility] [place] [id number] [place] [address] Jun, [facility] [place] [id number] [address] Jun, [facility] [place] [id number] [address] Jun, [facility] [place] [address] [id number] [address] Jun, IMMUNIZATIONS No Known Immunizations SOCIAL HISTORY Never Assessed REASON FOR VISIT [facility] PLAN OF CARE VITAL SIGNS MEDICATIONS Unknown Medications RESULTS No Results PROCEDURES No Known procedures INSTRUCTIONS MEDICATIONS ADMINISTERED No Known Medications MEDICAL (GENERAL) HISTORY Type Description Date Medical [...] surgery 06/21/2017 Surgical History left knee 07/31/2017 Surgical History Colonoscopy 04/2018 Hospitalization History surgeries Hospitalization History [facility]- Viral infection Aug 26 Hospitalization History [facility]- Flu Sx 12/10/2016 Hospitalization History [facility]- Congestion, runny nose and abd pain 12/21/2017
--- OUTSIDE RECORDS SUMMARY | 2019-03-19 07:21 | XMS REPORT ---
Author Author Migration, Doctor Organization [facility] Address Unknown Phone Unavailable Care Team Providers Care Can Sealer Name Role Phone Migration, Doctor Unavailable Unavailable PROBLEMS Type Condition ICD9-CM Code WPH67-FR Code Onset Dates Condition Status SNOMED Code Problem Edema, due to unspecified malnutrition type, unspecified type R60.9 Active 952682556 Problem Chronic obstructive pulmonary disease, unspecified COPD type J44.9 Active 18973206 Problem Coronary artery disease involving [place] heart, angina presence unspecified, unspecified vessel or lesion type I25.10 Active 42320190 Problem Hypertension, benign I10 Active 09889195 Problem LAURY (obstructive sleep apnea) G47.33 Active 44424638 Problem Palpitations R00.2 Active 19035204 Problem Other chronic pain G89.29 Active 05848473 Problem Non morbid obesity due to excess calories E66.09 Active 576096070 Problem COPD exacerbation J44.1 Active 498554988 Problem Tobacco abuse Z72.0 Active 71245601 Problem Erectile dysfunction, unspecified erectile dysfunction type N52.9 Active 394635993 Problem Morbid obesity due to excess calories E66.01 Active 763990739 Problem Non morbid obesity E66.9 Active 141522377 Problem Panlobular emphysema J43.1 Active 2113691 Problem Other obesity due to excess calories E66.09 Active 554081574 Problem COPD with acute exacerbation J44.1 Active 477493806 ALLERGIES No Information ENCOUNTERS Encounter Location Date Diagnosis [facility] [address] [facility] [id number] [address] 09 Jan, 2019 [facility] [address] [id number] [address] 30 Aug, 2018 Wheezes R06.2 and Pneumonia J18.9 [facility] [address] [id number] [address] 13 Aug, 2018 Erectile dysfunction, unspecified erectile dysfunction type N52.9 [place] [address] [address] Aug, Non morbid obesity E66.9 [facility] [id number] [place] [address] Jul, [facility] [id number] [place] [address] Jul, Testicular swelling, right N50.89 [place] [address] [address] Jul, Callus L84 [place] [id number] [place] [address] Jun, Non morbid obesity E66.9 ; COPD exacerbation J44.1 ; 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 and Dermatofibroma D23.9 [place] [id number] [place] [address] May, Non morbid obesity E66.9 and Grade II hemorrhoids K64.1 [place] [id number] [place] [address] Mar, [place] [id number] [place] [address] 04 Mar, 2018 Cough 786.2 ; Medicare annual wellness visit, initial Z00.00 ; Morbid obesity due to excess calories E66.01 ; Chronic obstructive pulmonary disease, unspecified COPD type J44.9 ; Coronary artery disease involving [place] heart, angina presence unspecified, unspecified vessel or lesion type I25.10 ; Hypertension, benign I10 and LAURY (obstructive sleep apnea) G47.33 [place] [id number] [place] [address] February, Medicare annual wellness visit, initial Z00.00 ; Morbid obesity due to excess calories E66.01 ; Chronic obstructive pulmonary disease, unspecified COPD type J44.9 ; Coronary artery disease involving [place] heart, angina presence unspecified, unspecified vessel or lesion type I25.10 ; Hypertension, benign I10 ; LAURY (obstructive sleep apnea) G47.33 ; Family history of colon cancer Z80.0 ; Other chronic pain G89.29 and Pain in right hip M25.551 [place] [address] [address] Jan, [place] [id number] [place] [address] Nov, Panlobular emphysema J43.1 [place] [address] [address] Nov, COPD exacerbation J44.[address] [address] Nov, Viral URI J06.9 [place] [address] [address] Nov, [place] [address] [address] Nov, [place] [address] [address] Sep, Other obesity due to excess calories E66.09 and Body mass index (BMI) of 36.0-36.9 in adult Z68.36 [place] [id number] [place] [address] Aug, [place] [address] [address] Aug, [place] [id number] [place] [address] Aug, Coronary artery disease involving [place] heart, angina presence unspecified, unspecified vessel or lesion type I25.10 and Chronic obstructive pulmonary disease, unspecified COPD type J44.9 [facility] [id number] [place] [address] Jul, COPD with acute exacerbation J44.1 [place] [id number] [place] [address] Jul, Non morbid obesity E66.9 [place] [address] [address] Jun, Panlobular emphysema J43.1 ; Tobacco abuse Z72.0 ; Tobacco abuse counseling Z71.6 and Non morbid obesity E66.9 [place] [address] [address] Apr, [place] [address] [address] Apr, [place] [address] [address] Mar, COPD exacerbation J44.1 [place] [address] [address] Mar, Tear of medial meniscus of right knee, current, unspecified tear type, initial encounter S83.241A [place] [address] [address] Mar, Pain in right knee M25.561 [facility] [id number] [place] [address] February, Pain in right knee M25.561 [place] [id number] [place] [address] February, Pain in right knee M25.561 [place] [id number] [place] [address] Dec, [place] [address] [address] Nov, [facility] [id number] [place] [address] Nov, Bronchitis J40 and Wheezing R06.2 [place] [address] [address] Oct, [place] [id number] [place] [address] Oct, [place] [id number] [place] [address] Oct, Non morbid obesity due to excess calories E66.09 ; Other chronic pain G89.29 and Pain in right knee M25.561 [place] [id number] [place] [address] Oct, Non morbid obesity due to excess calories E66.09 ; Other chronic pain G89.29 and Pain in right knee M25.561 [place] [id number] [place] [address] Oct, Pain in right knee M25.561 and Other chronic pain G89.29 [place] [address] [address] Aug, Encounter for immunization Z23 [place] [id number] [place] [address] Aug, [place] [id number] [place] [address] Aug, [place] [id number] [place] [address] Jun, Common wart B07.8 [facility] [place] [id number] [place] [address] May, Cellulitis of left elbow L03.114 [place] [id number] [place] [address] Mar, Torticollis, acute M43.6 and Leg pain, left M79.605 [place] [id number] [place] [address] February, Leg pain, left M79.605 [facility] [address] [address] Dec, COPD exacerbation J44.1 [facility] [address] [address] Dec, [facility] [address] [address] Oct, Chronic obstructive pulmonary disease, unspecified COPD type J44.9 and Hyperglycemia R73.9 [facility] [address] [address] Sep, Tobacco abuse Z72.0 ; Coronary artery disease involving [place] heart, angina presence unspecified, unspecified vessel or lesion type I25.10 and Morbid obesity due to excess calories E66.01 [place] [address] [address] Sep, [place] [address] [address] Sep, Leg pain, left M79.605 [place] [address] [address] Sep, [place] [address] [address] Sep, [place] [address] [address] Aug, Essential (primary) hypertension I10 [place] [address] [address] Aug, Encounter for immunization Z23 [place] [address] [address] Aug, [place] [address] [address] May, Chronic airway obstruction, not elsewhere classified [address] [place] [address] [address] May, [facility] [address], [place] [address] May, [facility] [id number] [place] [address] May, Acute bronchitis 466.0 [facility] [id number] [place] [address] May, [facility] [id number] [place] [address] May, Hyperglycemia 790.29 [facility] [id number] [place] [address] Apr, [facility] [id number] [place] [address] Apr, Cough 786.2 ; Hyperglycemia 790.29 and COPD (chronic obstructive pulmonary disease) 496 [facility] [id number] [place] [address] Mar, Cough 786.2 ; Elevated glucose 790.29 ; Wheezing 786.07 ; COPD exacerbation 491.21 and Nicotine dependence 305.1 [facility] [id number] [place] [address] Mar, High risk medication use V58.69 [facility] [id number] [place] [address] Mar, High risk medication use V58.69 and Benign hypertension 401.1 [facility] [address] [place] [address] Mar, [facility] [id number] [place] [address] February, [facility] [id number] [place] [address] February, [facility] [address] [place] [address] Jan, [place] [address] [id number] [place] [address] 30 Jan, 2015 Benign hypertension 401.1 [facility] [place] [facility] [address] [id number] [place] [address] 14 Jan, 2015 [facility] [place] [facility] [address] [id number] [place] [address] 13 Jan, 2015 [facility] [place] [facility] [address] [id number] [place] [address] 27 Dec, 2014 [facility] [place] [facility] [address] [id number] [place] [address] 27 Dec, 2014 [facility] [place] [facility] [address] [id number] [place] [address] 26 Dec, 2014 [facility] [place] [facility] [address] [id number] [place] [address] 18 Dec, 2014 [facility] [place] [facility] [address] [id number] [place] [address] 18 Dec, 2014 [facility] [place] [facility] [address] [id number] [place] [address] 2014 [facility] [place] [facility] [address] [id number] [place] [address] 2014 [facility] [place] [facility] [address] [id number] [place] [address] 13 Dec, 2014 [facility] [place] [facility] [address] [id number], [place] [address] 13 Dec, 2014 [facility] [place] [facility] [address] [id number] [place] [address] 06 Dec, 2014 [facility] [place] [facility] [address] [id number] [place] [address] 06 Dec, 2014 [facility] [place] [facility] [address] [facility] [id number], [place] [address] 05 Dec, 2014 [facility] [place] [facility] [address] [id number], [place] [address] Dec, [facility] [place] [facility] [address] [id number] [place] [address] Dec, [facility] [place] [facility] [address] [id number] [place] [address] Dec, [facility] [place] [facility] [address] [id number] [place] [address] Nov, [facility] [place] [facility] [address] [id number] [place] [address] Nov, [facility] [place] [facility] [address] [id number] [place] [address] Nov, [facility] [place] [facility] [address] [id number] [place] [address] Nov, [facility] [place] [facility] [address] [id number] [place] [address] Oct, [facility] [place] [facility] [address] [id number] [place] [address] Oct, [facility] [place] [facility] [address] [id number] [place] [address] Oct, [facility] [place] [facility] [address] [id number] [place] [address] Oct, [facility] [place] [facility] [address] [id number] [place] [address] Oct, [facility] [place] [facility] [address] [id number], [place] [address] Oct, [facility] [place] [facility] [address] [id number] [place] [address] Oct, [facility] [place] [facility] [address] [id number] [place] [address] Oct, [facility] [place] [facility] [address] [id number], [place] [address] Sep, [facility] [place] [facility] [address] [id number] [place] [address] Sep, [facility] [place] [facility] [address] [id number] [place] [address] Sep, [facility] [place] [facility] [address] [id number] [place] [address] Sep, [facility] [place] [facility] [address] [id number] [place] [address] Sep, [facility] [place] [facility] [address] [id number] [place] [address] Sep, [facility] [place] [facility] [address] [id number] [place] [address] Sep, [facility] [place] [facility] [address] [id number] [place] [address] Sep, [facility] [place] [facility] [address] [id number] [place] [address] Aug, [facility] [place] [facility] [address] [id number] [place] [address] Aug, [facility] [place] [facility] [address] [id number] [place] [address] Aug, [facility] [place] [facility] [address] [id number] [place] [address] Aug, [facility] [place] [facility] [address] [id number] [place] [address] Jul, [facility] [place] [facility] [address] [id number] [place] [address] Jul, [facility] [place] [facility] [address] [id number] [place] [address] Jul, [facility] [place] [facility] [address] [id number] [place] [address] Jul, [facility] [place] [facility] [address] [id number], [place] [address] Jul, [facility] [place] [facility] [address] [id number] [place] [address] Jul, [facility] [place] [facility] [address] [id number] [place] [address] Jul, [facility] [place] [facility] [address] [id number] [place] [address] Jul, [facility] [place] [facility] [address] [id number] [place] [address] Jul, [facility] [place] [facility] [address] [id number] [place] [address] Jul, [facility] [place] [facility] [address] [id number] [place] [address] Jul, [facility] [place] [facility] [address] [id number] [place] [address] Jul, [facility] [place] [facility] [address] [id number], [place] [address] Jul, [facility] [place] [facility] [address] [id number] [place] [address] Jul, [facility] [place] [facility] [address] [id number], [place] [address] Jul, [facility] [place] [facility] [address] [id number], [place] [address] Jul, [facility] [place] [facility] [address] [id number], [place] [address] Jul, [facility] [place] [facility] [address] [id number] [place] [address] Jul, [facility] [place] [facility] [address] [id number], [place] [address] Jul, [facility] [place] [facility] [address] [id number], [place] [address] Jul, [facility] [place] [facility] [address] [id number] [place] [address] Jul, [facility] [place] [facility] [address] [id number] [place] [address] Jul, [facility] [place] [facility] [address] [id number] [place] [address] 29 Jun, 2013 [facility] [place] [facility] [address] [id number] [place] [address] 29 Jun, 2013 [facility] [place] [facility] [address] [id number] [place] [address] Jun, 2013 [facility] [place] [facility] [address] [id number] [place] [address] Jun, 2013 [facility] [place] [facility] [address] [id number] [place] [address] 05 Jun, 2013 [facility] [place] [facility] [address] [id number] [place] [address] 05 Jun, 2013 [facility] [place] [facility] [address] [id number] [place] [address] Jun, 2013 [facility] [place] [facility] [address] [id number] [place] [address] Jun, 2013 [facility] [place] [facility] [address] [id number] [place] [address] Jun, 2013 [facility] [place] [facility] [address] [id number] [place] [address] Jun, 2013 [facility] [place] [facility] [address] [id number] [place] [address] May, [facility] [place] [facility] [address] [id number] [place] [address] May, [facility] [place] [facility] [address] [id number] [place] [address] May, [facility] [place] [facility] [address] [id number] [place] [address] May, [facility] [place] [facility] [address] [id number] [place] [address] May, [facility] [place] [facility] [address] [id number] [place] [address] May, [facility] [place] [facility] [address] [id number] [place] [address] May, [facility] [place] [facility] [address] [id number] [place] [address] May, [facility] [place] [facility] [address] [id number] [place] [address] Apr, [facility] [place] [facility] [address] [id number] [place] [address] Apr, [facility] [place] [facility] [address] [id number] [place] [address] Apr, [facility] [place] [facility] [address] [id number] [place] [address] Apr, [facility] [place] [facility] [address] [id number] [place] [address] Apr, [facility] [place] [facility] [address] [id number] [place] [address] Apr, [facility] [place] [facility] [address] [id number] [place] [address] Mar, [facility] [place] [facility] [address] [id number] [place] [address] Mar, [facility] [place] [facility] [address] [id number] [place] [address] Mar, [facility] [place] [facility] [address] [id number] [place] [address] Mar, [facility] [place] [facility] [address] [id number] [place] [address] Mar, [facility] [place] [facility] [address] [id number], [place] [address] Mar, [facility] [place] [facility] [address] [id number] [place] [address] Mar, [facility] [place] [facility] [address] [id number] [place] [address] Mar, [facility] [place] [facility] [address] [id number] [place] [address] February, [facility] [place] [facility] [address] [id number] [place] [address] February, [facility] [place] [facility] [address] [id number] [place] [address] February, [facility] [place] [facility] [address] [id number] [place] [address] February, [facility] [place] [facility] [address] [facility] [id number] [place] [address] February, [facility] [place] [facility] [address] [facility] [id number] [place] [address] Jan, [facility] [place] [facility] [address] [facility] [id number] [place] [address] Jan, [facility] [place] [facility] [address] [facility] [id number] [place] [address] Nov, [facility] [place] [facility] [address] [id number] [place] [address] Nov, [facility] [place] [facility] [address] [facility] [id number] [place] [address] Nov, [facility] [place] [facility] [address] [id number] [place] [address] Nov, [facility] [place] [facility] [address] [id number] [place] [address] Nov, [facility] [place] [facility] [address] [id number] [place] [address] Nov, [facility] [place] [facility] [address] [id number] [place] [address] Oct, [facility] [place] [facility] [address] [id number] [place] [address] Oct, [facility] [place] [facility] [address] [id number] [place] [address] Oct, [facility] [place] [facility] [address] [id number] [place] [address] Sep, [facility] [address] [id number] [place] [address] Sep, [facility] [place] [facility] [address] [id number] [place] [address] Aug, [facility] [address] [id number] [place] [address] Aug, [facility] [address] [id number] [place] [address] Aug, [facility] [place] [facility] [address] [id number] [place] [address] Aug, [facility] [place] [facility] [address] [id number] [place] [address] Jul, [facility] [place] [facility] [address] [id number] [place] [address] Jul, [facility] [place] [facility] [address] [id number] [address] Jul, [facility] [place] [facility] [address] [id number] [place] [address] Jul, [facility] [place] [facility] [address] [id number] [place] [address] Jul, [facility] [place] [facility] [address] [id number], [place] [address] Jun, [facility] [place] [facility] [address] [id number], [place] [address] Jun, [facility] [place] [facility] [address] [id number] [place] [address] May, [facility] [place] [facility] [address] [id number] [place] [address] May, [facility] [place] [facility] [address] [id number] [place] [address] May, [facility] [place] [facility] [address] [id number] [place] [address] May, [facility] [place] [facility] [address] [id number] [place] [address] May, [facility] [place] [facility] [address] [id number] [place] [address] May, [facility] [place] [facility] [address] [id number] [place] [address] Apr, [facility] [place] [facility] [address] [id number] [place] [address] Apr, [facility] [place] [facility] [address] [id number] [place] [address] Apr, [facility] [place] [facility] [address] [id number] [place] [address] Apr, [facility] [place] [facility] [address] [id number] [place] [address] Apr, [facility] [place] [facility] [address] [id number] [place] [address] Mar, [facility] [place] [facility] [address] [id number] [place] [address] Mar, [facility] [place] [facility] [address] [id number] [place] [address] Mar, [facility] [place] [facility] [address] [id number] [place] [address] February, [facility] [place] [facility] [address] [id number] [place] [address] February, [facility] [address] [id number] [place] [address] February, [facility] [address] [id number] [place] [address] Dec, [facility] [address] [id number] [place] [address] Dec, [facility] [address] [id number] [place] [address] Dec, [facility] [address] [id number] [place] [address] Oct, [facility] [address] [id number] [place] [address] Oct, [facility] [address] [id number] [place] [address] Sep, [facility] [address] [id number] [place] [address] Sep, [facility] [facility] [address] [id number] [place] [address] Aug, [facility] [address] [id number] [place] [address] Aug, [facility] [address] [id number] [place] [address] Aug, [facility] [address] [id number] [place] [address] Aug, [facility] [place] [facility] [address] [id number] [place] [address] Aug, [facility] [address] [id number] [place] [address] Aug, [facility] [address] [id number] [place] [address] Jul, [facility] [address] [id number] [address] Jul, [facility] [address] [facility] [id number], [place] [address] Jul, [facility] [id number] [address] Jul, [facility] [address] [facility] [id number], [place] [address] Jul, [facility] [id number] [address] Jul, [facility] [id number] [place] [address] Jun, [facility] [id number], [place] [address] Jun, [facility] [id number], [place] [address] Jun, [facility] [address] [id number] [address] Jun, IMMUNIZATIONS No Known Immunizations SOCIAL HISTORY Never Assessed REASON FOR VISIT [facility] PLAN OF CARE VITAL SIGNS MEDICATIONS Unknown [...] infection Aug 26 Hospitalization History [facility]- Flu Sx 12/10/2016 Hospitalization History [facility]- Congestion, runny nose and abd pain 12/21/2017
--- OUTSIDE RECORDS SUMMARY | 2019-03-19 07:21 | XMS REPORT ---
Author Author Migration, Doctor Organization [facility] [place] [facility] Address Unknown Phone Unavailable Care Team Providers Care Farm Agent Name Role Phone Migration, Doctor Unavailable Unavailable PROBLEMS Type Condition ICD9-CM Code DUG57-NM Code Onset Dates Condition Status SNOMED Code Problem Edema, due to unspecified malnutrition type, unspecified type R60.9 Active 413473963 Problem Chronic obstructive pulmonary disease, unspecified COPD type J44.9 Active 46029820 Problem Coronary artery disease involving la posta heart, angina presence unspecified, unspecified vessel or lesion type I25.10 Active 00295973 Problem Hypertension, benign I10 Active 41631240 Problem LAURY (obstructive sleep apnea) G47.33 Active 35456287 Problem Palpitations R00.2 Active 96067189 Problem Other chronic pain G89.29 Active 99618446 Problem Non morbid obesity due to excess calories E66.09 Active 475113178 Problem COPD exacerbation J44.1 Active 160662399 Problem Tobacco abuse Z72.0 Active 72813063 Problem Erectile dysfunction, unspecified erectile dysfunction type N52.9 Active 312876766 Problem Morbid obesity due to excess calories E66.01 Active 996106830 Problem Non morbid obesity E66.9 Active 601313621 Problem Panlobular emphysema J43.1 Active 2910394 Problem Other obesity due to excess calories E66.09 Active 015002896 Problem COPD with acute exacerbation J44.1 Active 809843760 ALLERGIES No Information ENCOUNTERS Encounter Location Date Diagnosis [facility] [address] [facility] [id number], [place] [address] 09 Jan, 2019 [facility] [address] [id number], [place] [address] 30 Aug, 2018 Wheezes R06.2 and Pneumonia J18.9 [facility] [address] [id number], [place] [address] 13 Aug, 2018 Erectile dysfunction, unspecified erectile dysfunction type N52.9 [place] [address], [place] [address] Aug, Non morbid obesity E66.9 [facility] [id number] [place] [address] Jul, 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 and Dermatofibroma D23.9 [place] [id number] [place] [address] May, Non morbid obesity E66.9 and Grade II hemorrhoids K64.1 [place] [id number] [place] [address] Mar, [place] [id number] [place] [address] 04 Mar, 2018 Cough 786.2 ; Medicare annual wellness visit, initial Z00.00 ; Morbid obesity due to excess calories E66.01 ; Chronic obstructive pulmonary disease, unspecified COPD type J44.9 ; Coronary artery disease involving la posta heart, angina presence unspecified, unspecified vessel or lesion type I25.10 ; Hypertension, benign I10 and LAURY (obstructive sleep apnea) G47.33 [place] [id number] [place] [address] February, Medicare annual wellness visit, initial Z00.00 ; Morbid obesity due to excess calories E66.01 ; Chronic obstructive pulmonary disease, unspecified COPD type J44.9 ; Coronary artery disease involving la posta heart, angina presence unspecified, unspecified vessel or lesion type I25.10 ; Hypertension, benign I10 ; LAURY (obstructive sleep apnea) G47.33 ; Family history of colon cancer Z80.0 ; Other chronic pain G89.29 and Pain in right hip M25.551 [place] [address] [address] Jan, [place] [id number] [place] [address] Nov, Panlobular emphysema J43.1 [place] [address] [address] Nov, COPD exacerbation J44.[address] [address] Nov, Viral URI J06.9 [place] [address] [address] Nov, [place] [address] [address] Nov, [place] [address] [address] Sep, Other obesity due to excess calories E66.09 and Body mass index (BMI) of 36.0-36.9 in adult Z68.36 [place] [id number] [place] [address] Aug, [place] [address] [address] Aug, [place] [id number] [place] [address] Aug, Coronary artery disease involving la posta heart, angina presence unspecified, unspecified vessel or lesion type I25.10 and Chronic obstructive pulmonary disease, unspecified COPD type J44.9 [facility] [id number] [place] [address] Jul, COPD with acute exacerbation J44.1 [place] [id number] [place] [address] Jul, Non morbid obesity E66.9 [place] [address] [address] Jun, Panlobular emphysema J43.1 ; Tobacco abuse Z72.0 ; Tobacco abuse counseling Z71.6 and Non morbid obesity E66.9 [place] [address] [address] Apr, [place] [address] [address] Apr, [place] [address] [address] Mar, COPD exacerbation J44.1 [place] [address] [address] Mar, Tear of medial meniscus of right knee, current, unspecified tear type, initial encounter S83.241A [place] [address] [address] Mar, Pain in right knee M25.561 [facility] [id number] [place] [address] February, Pain in right knee M25.561 [place] [id number] [place] [address] February, Pain in right knee M25.561 [place] [id number] [place] [address] Dec, [place] [address] [address] Nov, [facility] [id number] [place] [address] Nov, Bronchitis J40 and Wheezing R06.2 [place] [address] [address] Oct, [place] [id number] [place] [address] Oct, [place] [id number] [place] [address] Oct, Non morbid obesity due to excess calories E66.09 ; Other chronic pain G89.29 and Pain in right knee M25.561 [place] [id number] [place] [address] Oct, Non morbid obesity due to excess calories E66.09 ; Other chronic pain G89.29 and Pain in right knee M25.561 [place] [id number] [place] [address] Oct, Pain in right knee M25.561 and Other chronic pain G89.29 [place] [address] [address] Aug, Encounter for immunization Z23 [place] [id number] [place] [address] Aug, [place] [id number] [place] [address] Aug, [place] [id number] [place] [address] Jun, Common wart B07.8 [facility] [place] [id number] [place] [address] May, Cellulitis of left elbow L03.114 [place] [id number] [place] [address] Mar, Torticollis, acute M43.6 and Leg pain, left M79.605 [place] [id number] [place] [address] February, Leg pain, left M79.605 [facility] [address] [address] Dec, COPD exacerbation J44.1 [facility] [address] [address] Dec, [facility] [address] [address] Oct, Chronic obstructive pulmonary disease, unspecified COPD type J44.9 and Hyperglycemia R73.9 [facility] [address] [address] Sep, Tobacco abuse Z72.0 ; Coronary artery disease involving la posta heart, angina presence unspecified, unspecified vessel or lesion type I25.10 and Morbid obesity due to excess calories E66.01 [place] [address] [address] Sep, [place] [address] [address] Sep, Leg pain, left M79.605 [place] [address] [address] Sep, [place] [address] [address] Sep, [place] [address] [address] Aug, Essential (primary) hypertension I10 [place] [address] [address] Aug, Encounter for immunization Z23 [place] [address] [address] Aug, [place] [address] [address] May, Chronic airway obstruction, not elsewhere classified [address] [place] [address] [address] May, [facility] [address], [place] [address] May, [facility] [id number] [place] [address] May, Acute bronchitis 466.0 [facility] [id number] [place] [address] May, [facility] [id number] [place] [address] May, Hyperglycemia 790.29 [facility] [id number] [place] [address] Apr, [facility] [id number] [place] [address] Apr, Cough 786.2 ; Hyperglycemia 790.29 and COPD (chronic obstructive pulmonary disease) 496 [facility] [id number] [place] [address] Mar, Cough 786.2 ; Elevated glucose 790.29 ; Wheezing 786.07 ; COPD exacerbation 491.21 and Nicotine dependence 305.1 [facility] [id number] [place] [address] Mar, High risk medication use V58.69 [facility] [id number] [place] [address] Mar, High risk medication use V58.69 and Benign hypertension 401.1 [facility] [address] [place] [address] Mar, [facility] [id number] [place] [address] February, [facility] [id number] [place] [address] February, [facility] [id number] [place] [address] Jan, [id number] [id number] [place] [address] 30 Jan, 2015 Benign hypertension 401.1 [facility] [place] [facility] [address] [id number] [place] [address] 14 Jan, 2015 [facility] [place] [facility] [address] [id number] [place] [address] 13 Jan, 2015 [facility] [place] [facility] [address] [id number] [place] [address] 27 Dec, 2014 [facility] [place] [facility] [address] [id number] [place] [address] 27 Dec, 2014 [facility] [place] [facility] [address] [id number] [place] [address] 26 Dec, 2014 [facility] [place] [facility] [address] [id number] [place] [address] 18 Dec, 2014 [facility] [place] [facility] [address] [id number] [place] [address] 18 Dec, 2014 [facility] [place] [facility] [address] [id number] [place] [address] 2014 [facility] [place] [facility] [address] [id number] [place] [address] 2014 [facility] [place] [facility] [address] [id number] [place] [address] 13 Dec, 2014 [facility] [place] [facility] [address] [id number], [place] [address] 13 Dec, 2014 [facility] [place] [facility] [address] [id number] [place] [address] 06 Dec, 2014 [facility] [place] [facility] [address] [id number] [place] [address] 06 Dec, 2014 [facility] [place] [facility] [address] [facility] [id number], [place] [address] 05 Dec, 2014 [facility] [place] [facility] [address] [id number], [place] [address] Dec, [facility] [place] [facility] [address] [id number] [place] [address] Dec, [facility] [place] [facility] [address] [id number] [place] [address] Dec, [facility] [place] [facility] [address] [id number] [place] [address] Nov, [facility] [place] [facility] [address] [id number] [place] [address] Nov, [facility] [place] [facility] [address] [id number] [place] [address] Nov, [facility] [place] [facility] [address] [id number] [place] [address] Nov, [facility] [place] [facility] [address] [id number] [place] [address] Oct, [facility] [place] [facility] [address] [id number] [place] [address] Oct, [facility] [place] [facility] [address] [id number] [place] [address] Oct, [facility] [place] [facility] [address] [id number] [place] [address] Oct, [facility] [place] [facility] [address] [id number] [place] [address] Oct, [facility] [place] [facility] [address] [id number], [place] [address] Oct, [facility] [place] [facility] [address] [id number] [place] [address] Oct, [facility] [place] [facility] [address] [id number] [place] [address] Oct, [facility] [place] [facility] [address] [id number], [place] [address] Sep, [facility] [place] [facility] [address] [id number] [place] [address] Sep, [facility] [place] [facility] [address] [id number] [place] [address] Sep, [facility] [place] [facility] [address] [id number] [place] [address] Sep, [facility] [place] [facility] [address] [id number] [place] [address] Sep, [facility] [place] [facility] [address] [id number] [place] [address] Sep, [facility] [place] [facility] [address] [id number] [place] [address] Sep, [facility] [place] [facility] [address] [id number] [place] [address] Sep, [facility] [place] [facility] [address] [id number] [place] [address] Aug, [facility] [place] [facility] [address] [id number] [place] [address] Aug, [facility] [place] [facility] [address] [id number] [place] [address] Aug, [facility] [place] [facility] [address] [id number] [place] [address] Aug, [facility] [place] [facility] [address] [id number] [place] [address] Jul, [facility] [place] [facility] [address] [id number] [place] [address] Jul, [facility] [place] [facility] [address] [id number] [place] [address] Jul, [facility] [place] [facility] [address] [id number] [place] [address] Jul, [facility] [place] [facility] [address] [id number], [place] [address] Jul, [facility] [place] [facility] [address] [id number] [place] [address] Jul, [facility] [place] [facility] [address] [id number] [place] [address] Jul, [facility] [place] [facility] [address] [id number] [place] [address] Jul, [facility] [place] [facility] [address] [id number] [place] [address] Jul, [facility] [place] [facility] [address] [id number] [place] [address] Jul, [facility] [place] [facility] [address] [id number] [place] [address] Jul, [facility] [place] [facility] [address] [id number] [place] [address] Jul, [facility] [place] [facility] [address] [id number], [place] [address] Jul, [facility] [place] [facility] [address] [id number] [place] [address] Jul, [facility] [place] [facility] [address] [id number], [place] [address] Jul, [facility] [place] [facility] [address] [id number], [place] [address] Jul, [facility] [place] [facility] [address] [id number], [place] [address] Jul, [facility] [place] [facility] [address] [id number] [place] [address] Jul, [facility] [place] [facility] [address] [id number], [place] [address] Jul, [facility] [place] [facility] [address] [id number], [place] [address] Jul, [facility] [place] [facility] [address] [id number] [place] [address] Jul, [facility] [place] [facility] [address] [id number] [place] [address] Jul, [facility] [place] [facility] [address] [id number] [place] [address] 29 Jun, 2013 [facility] [place] [facility] [address] [id number] [place] [address] 29 Jun, 2013 [facility] [place] [facility] [address] [id number] [place] [address] Jun, 2013 [facility] [place] [facility] [address] [id number] [place] [address] Jun, 2013 [facility] [place] [facility] [address] [id number] [place] [address] 05 Jun, 2013 [facility] [place] [facility] [address] [id number] [place] [address] 05 Jun, 2013 [facility] [place] [facility] [address] [id number] [place] [address] Jun, 2013 [facility] [place] [facility] [address] [id number] [place] [address] Jun, 2013 [facility] [place] [facility] [address] [id number] [place] [address] Jun, 2013 [facility] [place] [facility] [address] [id number] [place] [address] Jun, 2013 [facility] [place] [facility] [address] [id number] [place] [address] May, [facility] [place] [facility] [address] [id number] [place] [address] May, [facility] [place] [facility] [address] [id number] [place] [address] May, [facility] [place] [facility] [address] [id number] [place] [address] May, [facility] [place] [facility] [address] [id number] [place] [address] May, [facility] [place] [facility] [address] [id number] [place] [address] May, [facility] [place] [facility] [address] [id number] [place] [address] May, [facility] [place] [facility] [address] [id number] [place] [address] May, [facility] [place] [facility] [address] [id number] [place] [address] Apr, [facility] [place] [facility] [address] [id number] [place] [address] Apr, [facility] [place] [facility] [address] [id number] [place] [address] Apr, [facility] [place] [facility] [address] [id number] [place] [address] Apr, [facility] [place] [facility] [address] [id number] [place] [address] Apr, [facility] [place] [facility] [address] [id number] [place] [address] Apr, [facility] [place] [facility] [address] [id number] [place] [address] Mar, [facility] [place] [facility] [address] [id number] [place] [address] Mar, [facility] [place] [facility] [address] [id number] [place] [address] Mar, [facility] [place] [facility] [address] [id number] [place] [address] Mar, [facility] [place] [facility] [address] [id number] [place] [address] Mar, [facility] [place] [facility] [address] [id number], [place] [address] Mar, [facility] [place] [facility] [address] [id number] [place] [address] Mar, [facility] [place] [facility] [address] [id number] [place] [address] Mar, [facility] [place] [facility] [address] [id number] [place] [address] February, [facility] [place] [facility] [address] [id number] [place] [address] February, [facility] [place] [facility] [address] [id number] [place] [address] February, [facility] [place] [facility] [address] [id number] [place] [address] February, [facility] [place] [facility] [address] [facility] [id number] [place] [address] February, [facility] [place] [facility] [address] [facility] [id number] [place] [address] Jan, [facility] [place] [facility] [address] [facility] [id number] [place] [address] Jan, [facility] [place] [facility] [address] [facility] [id number] [place] [address] Nov, [facility] [place] [facility] [address] [id number] [place] [address] Nov, [facility] [place] [facility] [address] [facility] [id number] [place] [address] Nov, [facility] [place] [facility] [address] [id number] [place] [address] Nov, [facility] [place] [facility] [address] [id number] [place] [address] Nov, [facility] [place] [facility] [address] [id number] [place] [address] Nov, [facility] [place] [facility] [address] [id number] [place] [address] Oct, [facility] [place] [facility] [address] [id number] [place] [address] Oct, [facility] [place] [facility] [address] [id number] [place] [address] Oct, [facility] [place] [facility] [address] [id number] [place] [address] Sep, [facility] [address] [id number] [place] [address] Sep, [facility] [place] [facility] [address] [id number] [place] [address] Aug, [facility] [address] [id number] [place] [address] Aug, [facility] [address] [id number] [place] [address] Aug, [facility] [place] [facility] [address] [id number] [place] [address] Aug, [facility] [place] [facility] [address] [id number] [place] [address] Jul, [facility] [place] [facility] [address] [id number] [place] [address] Jul, [facility] [place] [facility] [address] [id number], [place] [address] Jul, [facility] [place] [facility] [address] [id number] [place] [address] Jul, [facility] [place] [facility] [address] [id number] [place] [address] Jul, [facility] [place] [facility] [address] [id number], [place] [address] Jun, [facility] [place] [facility] [address] [id number], [place] [address] Jun, [facility] [place] [facility] [address] [id number] [place] [address] May, [facility] [place] [facility] [address] [id number] [place] [address] May, [facility] [place] [facility] [address] [id number] [place] [address] May, [facility] [place] [facility] [address] [id number] [place] [address] May, [facility] [place] [facility] [address] [id number] [place] [address] May, [facility] [place] [facility] [address] [id number] [place] [address] May, [facility] [place] [facility] [address] [id number] [place] [address] Apr, [facility] [place] [facility] [address] [id number] [place] [address] Apr, [facility] [place] [facility] [address] [id number] [place] [address] Apr, [facility] [place] [facility] [address] [id number] [place] [address] Apr, [facility] [place] [facility] [address] [id number] [place] [address] Apr, [facility] [place] [facility] [address] [id number] [place] [address] Mar, [facility] [place] [facility] [address] [id number] [place] [address] Mar, [facility] [place] [facility] [address] [id number] [place] [address] Mar, [facility] [place] [facility] [address] [id number] [place] [address] February, [facility] [place] [facility] [address] [id number] [place] [address] February, [facility] [address] [id number] [place] [address] February, [facility] [address] [id number] [place] [address] Dec, [facility] [address] [id number] [place] [address] Dec, [facility] [address] [id number] [place] [address] Dec, [facility] [address] [id number] [place] [address] Oct, [facility] [address] [id number] [place] [address] Oct, [facility] [address] [id number] [place] [address] Sep, [facility] [address] [id number] [place] [address] Sep, [facility] [address] [id number] [place] [address] Aug, [facility] [address] [id number] [place] [address] Aug, [facility] [address] [id number] [place] [address] Aug, [facility] [address] [id number] [place] [address] Aug, [facility] [place] [facility] [address] [id number] [place] [address] Aug, [facility] [address] [id number] [place] [address] Aug, [facility] [address] [id number] [place] [address] Jul, [facility] [address] [id number] [address] Jul, [facility] [address] [facility] [id number], [place] [address] Jul, [facility] [id number], [place] [address] Jul, [facility] [address] [facility] [id number], [place] [address] Jul, [facility] [id number], [place] [address] Jul, [facility] [id number] [place] [address] Jun, [facility] [address], [place] [address] Jun, [facility] [address], [place] [address] Jun, [facility] [address] [id number], [place] [address] Jun, IMMUNIZATIONS No Known Immunizations SOCIAL HISTORY Never Assessed REASON FOR VISIT [facility] PLAN OF CARE VITAL SIGNS MEDICATIONS Unknown [...] infection Aug 26 Hospitalization History [facility]- Flu Sx 12/10/2016 Hospitalization History [facility]- Congestion, runny nose and abd pain 12/21/2017
--- OUTSIDE RECORDS SUMMARY | 2019-03-19 07:22 | XMS REPORT ---
Author Author Migration, Doctor Organization [facility] Address Unknown Phone Unavailable Care Team Providers Care Internet Marketing Specialist Name Role Phone Migration, Doctor Unavailable Unavailable PROBLEMS Type Condition ICD9-CM Code NBH46-MW Code Onset Dates Condition Status SNOMED Code Problem Edema, due to unspecified malnutrition type, unspecified type R60.9 Active 436319798 Problem Chronic obstructive pulmonary disease, unspecified COPD type J44.9 Active 45176598 Problem Coronary artery disease involving redding heart, angina presence unspecified, unspecified vessel or lesion type I25.10 Active 46298077 Problem Hypertension, benign I10 Active 62511784 Problem LAURY (obstructive sleep apnea) G47.33 Active 54788989 Problem Palpitations R00.2 Active 09863398 Problem Other chronic pain G89.29 Active 39963111 Problem Non morbid obesity due to excess calories E66.09 Active 570087799 Problem COPD exacerbation J44.1 Active 840323932 Problem Tobacco abuse Z72.0 Active 40730275 Problem Erectile dysfunction, unspecified erectile dysfunction type N52.9 Active 144557220 Problem Morbid obesity due to excess calories E66.01 Active 504888380 Problem Non morbid obesity E66.9 Active 433955669 Problem Panlobular emphysema J43.1 Active 3652442 Problem Other obesity due to excess calories E66.09 Active 399881544 Problem COPD with acute exacerbation J44.1 Active 786639685 ALLERGIES No Information ENCOUNTERS Encounter Location Date Diagnosis [facility] [address] [facility] [id number] [address] 09 Jan, 2019 [facility] [address] [id number] [address] 30 Aug, 2018 Wheezes R06.[address] [facility] [address] [id number], [place] [address] 13 Aug, 2018 Erectile dysfunction, unspecified erectile dysfunction type N52.9 [place] [address], [place] [address] Aug, Non morbid obesity E66.9 [facility] [id number] [place] [address] Jul, [facility] [id number] [place] [address] Jul, Testicular swelling, right N50.89 [place] [address] [address] Jul, Callus L84 [place] [id number] [place] [address] Jun, Non morbid obesity E66.9 ; COPD exacerbation J44.1 ; 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 and Dermatofibroma D23.9 [place] [id number] [place] [address] May, Non morbid obesity E66.9 and Grade II hemorrhoids K64.1 [place] [id number] [place] [address] Mar, [place] [id number] [place] [address] 04 Mar, 2018 Cough 786.2 ; Medicare annual wellness visit, initial Z00.00 ; Morbid obesity due to excess calories E66.01 ; Chronic obstructive pulmonary disease, unspecified COPD type J44.9 ; Coronary artery disease involving redding heart, angina presence unspecified, unspecified vessel or lesion type I25.10 ; Hypertension, benign I10 and LAURY (obstructive sleep apnea) G47.33 [place] [address] [place] [address] February, Medicare annual wellness visit, initial Z00.00 ; Morbid obesity due to excess calories E66.01 ; Chronic obstructive pulmonary disease, unspecified COPD type J44.9 ; Coronary artery disease involving redding heart, angina presence unspecified, unspecified vessel or lesion type I25.10 ; Hypertension, benign I10 ; LAURY (obstructive sleep apnea) G47.33 ; Family history of colon cancer Z80.0 ; Other chronic pain G89.29 and Pain in right hip M25.551 [place] [address] [address] Jan, [place] [id number] [place] [address] Nov, Panlobular emphysema J43.1 [place] [address] [address] Nov, COPD exacerbation J44.[address] [address] Nov, Viral URI J06.9 [place] [address] [address] Nov, [place] [address] [address] Nov, [place] [address] [address] Sep, Other obesity due to excess calories E66.09 and Body mass index (BMI) of 36.0-36.9 in adult Z68.36 [place] [id number] [place] [address] Aug, [place] [address] [address] Aug, [place] [id number] [place] [address] Aug, Coronary artery disease involving redding heart, angina presence unspecified, unspecified vessel or lesion type I25.10 and Chronic obstructive pulmonary disease, unspecified COPD type J44.9 [facility] [id number] [place] [address] Jul, COPD with acute exacerbation J44.1 [place] [id number] [place] [address] Jul, Non morbid obesity E66.9 [place] [address] [address] Jun, Panlobular emphysema J43.1 ; Tobacco abuse Z72.0 ; Tobacco abuse counseling Z71.6 and Non morbid obesity E66.9 [place] [address] [address] Apr, [place] [address] [address] Apr, [place] [address] [address] Mar, COPD exacerbation J44.1 [place] [address] [address] Mar, Tear of medial meniscus of right knee, current, unspecified tear type, initial encounter S83.241A [place] [address] [address] Mar, Pain in right knee M25.561 [facility] [id number] [place] [address] February, Pain in right knee M25.561 [place] [id number] [place] [address] February, Pain in right knee M25.561 [place] [id number] [place] [address] Dec, [place] [address] [address] Nov, [facility] [id number] [place] [address] Nov, Bronchitis J40 and Wheezing R06.2 [place] [address] [address] Oct, [place] [id number] [place] [address] Oct, [place] [id number] [place] [address] Oct, Non morbid obesity due to excess calories E66.09 ; Other chronic pain G89.29 and Pain in right knee M25.561 [place] [id number] [place] [address] Oct, Non morbid obesity due to excess calories E66.09 ; Other chronic pain G89.29 and Pain in right knee M25.561 [place] [id number] [place] [address] Oct, Pain in right knee M25.561 and Other chronic pain G89.29 [place] [address] [address] Aug, Encounter for immunization Z23 [place] [id number] [place] [address] Aug, [place] [id number] [place] [address] Aug, [place] [id number] [place] [address] Jun, Common wart B07.8 [facility] [place] [id number] [place] [address] May, Cellulitis of left elbow L03.114 [place] [id number] [place] [address] Mar, Torticollis, acute M43.6 and Leg pain, left M79.605 [place] [id number] [place] [address] February, Leg pain, left M79.605 [facility] [address] [address] Dec, COPD exacerbation J44.1 [facility] [address] [address] Dec, [facility] [address] [address] Oct, Chronic obstructive pulmonary disease, unspecified COPD type J44.[address] [facility] [address] [address] Sep, Tobacco abuse Z72.0 ; Coronary artery disease involving redding heart, angina presence unspecified, unspecified vessel or lesion type I25.10 and Morbid obesity due to excess calories E66.01 [place] [address] [address] Sep, [place] [address] [address] Sep, Leg pain, left M79.605 [place] [address] [address] Sep, [place] [address] [address] Sep, [place] [address] [address] Aug, Essential (primary) hypertension I10 [place] [address] [address] Aug, Encounter for immunization Z23 [place] [address] [address] Aug, [place] [address] [address] May, Chronic airway obstruction, not elsewhere classified [address] [place] [address] [address] May, [facility] [address] [address] May, [facility] [id number] [place] [address] May, Acute bronchitis 466.0 [facility] [id number] [place] [address] May, [facility] [id number] [place] [address] May, Hyperglycemia 790.29 [facility] [id number] [place] [address] Apr, [facility] [id number] [place] [address] Apr, Cough 786.2 ; Hyperglycemia 790.29 and COPD (chronic obstructive pulmonary disease) 496 [facility] [id number] [place] [address] Mar, Cough 786.2 ; Elevated glucose 790.29 ; Wheezing 786.07 ; COPD exacerbation 491.21 and Nicotine dependence 305.1 [facility] [id number] [place] [address] Mar, High risk medication use V58.69 [facility] [id number] [place] [address] Mar, High risk medication use V58.69 and Benign hypertension 401.1 [facility] [address] [place] [address] Mar, [facility] [id number] [place] [address] February, [facility] [address] [place] [address] February, [facility] [address] [place] [address] Jan, [place] [address] [id number] [place] [address] 30 Jan, 2015 Benign hypertension 401.1 [facility] [place] [facility] [address] [id number] [place] [address] 14 Jan, 2015 [facility] [place] [facility] [address] [id number] [place] [address] 13 Jan, 2015 [facility] [place] [facility] [address] [id number] [place] [address] 27 Dec, 2014 [facility] [place] [facility] [address] [id number] [place] [address] 27 Dec, 2014 [facility] [place] [facility] [address] [id number] [place] [address] 26 Dec, 2014 [facility] [place] [facility] [address] [id number] [place] [address] 18 Dec, 2014 [facility] [place] [facility] [address] [id number] [place] [address] 18 Dec, 2014 [facility] [place] [facility] [address] [id number] [place] [address] 2014 [facility] [place] [facility] [address] [id number] [place] [address] 2014 [facility] [place] [facility] [address] [id number] [place] [address] 13 Dec, 2014 [facility] [place] [facility] [address] [id number], [place] [address] 13 Dec, 2014 [facility] [place] [facility] [address] [id number] [place] [address] 06 Dec, 2014 [facility] [place] [facility] [address] [id number] [place] [address] 06 Dec, 2014 [facility] [place] [facility] [address] [facility] [id number], [place] [address] 05 Dec, 2014 [facility] [place] [facility] [address] [id number], [place] [address] Dec, [facility] [place] [facility] [address] [id number] [place] [address] Dec, [facility] [place] [facility] [address] [id number] [place] [address] Dec, [facility] [place] [facility] [address] [id number] [place] [address] Nov, [facility] [place] [facility] [address] [id number] [place] [address] Nov, [facility] [place] [facility] [address] [id number] [place] [address] Nov, [facility] [place] [facility] [address] [id number] [place] [address] Nov, [facility] [place] [facility] [address] [id number] [place] [address] Oct, [facility] [place] [facility] [address] [id number] [place] [address] Oct, [facility] [place] [facility] [address] [id number] [place] [address] Oct, [facility] [place] [facility] [address] [id number] [place] [address] Oct, [facility] [place] [facility] [address] [id number] [place] [address] Oct, [facility] [place] [facility] [address] [id number], [place] [address] Oct, [facility] [place] [facility] [address] [id number] [place] [address] Oct, [facility] [place] [facility] [address] [id number] [place] [address] Oct, [facility] [place] [facility] [address] [id number], [place] [address] Sep, [facility] [place] [facility] [address] [id number] [place] [address] Sep, [facility] [place] [facility] [address] [id number] [place] [address] Sep, [facility] [place] [facility] [address] [id number] [place] [address] Sep, [facility] [place] [facility] [address] [id number] [place] [address] Sep, [facility] [place] [facility] [address] [id number] [place] [address] Sep, [facility] [place] [facility] [address] [id number] [place] [address] Sep, [facility] [place] [facility] [address] [id number] [place] [address] Sep, [facility] [place] [facility] [address] [id number] [place] [address] Aug, [facility] [place] [facility] [address] [id number] [place] [address] Aug, [facility] [place] [facility] [address] [id number] [place] [address] Aug, [facility] [place] [facility] [address] [id number] [place] [address] Aug, [facility] [place] [facility] [address] [id number] [place] [address] Jul, [facility] [place] [facility] [address] [id number] [place] [address] Jul, [facility] [place] [facility] [address] [id number] [place] [address] Jul, [facility] [place] [facility] [address] [id number] [place] [address] Jul, [facility] [place] [facility] [address] [id number], [place] [address] Jul, [facility] [place] [facility] [address] [id number] [place] [address] Jul, [facility] [place] [facility] [address] [id number] [place] [address] Jul, [facility] [place] [facility] [address] [id number] [place] [address] Jul, [facility] [place] [facility] [address] [id number] [place] [address] Jul, [facility] [place] [facility] [address] [id number] [place] [address] Jul, [facility] [place] [facility] [address] [id number] [place] [address] Jul, [facility] [place] [facility] [address] [id number] [place] [address] Jul, [facility] [place] [facility] [address] [id number], [place] [address] Jul, [facility] [place] [facility] [address] [id number] [place] [address] Jul, [facility] [place] [facility] [address] [id number], [place] [address] Jul, [facility] [place] [facility] [address] [id number], [place] [address] Jul, [facility] [place] [facility] [address] [id number], [place] [address] Jul, [facility] [place] [facility] [address] [id number] [place] [address] Jul, [facility] [place] [facility] [address] [id number], [place] [address] Jul, [facility] [place] [facility] [address] [id number], [place] [address] Jul, [facility] [place] [facility] [address] [id number] [place] [address] Jul, [facility] [place] [facility] [address] [id number] [place] [address] Jul, [facility] [place] [facility] [address] [id number] [place] [address] 29 Jun, 2013 [facility] [place] [facility] [address] [id number] [place] [address] 29 Jun, 2013 [facility] [place] [facility] [address] [id number] [place] [address] Jun, 2013 [facility] [place] [facility] [address] [id number] [place] [address] Jun, 2013 [facility] [place] [facility] [address] [id number] [place] [address] 05 Jun, 2013 [facility] [place] [facility] [address] [id number] [place] [address] 05 Jun, 2013 [facility] [place] [facility] [address] [id number] [place] [address] Jun, 2013 [facility] [place] [facility] [address] [id number] [place] [address] Jun, 2013 [facility] [place] [facility] [address] [id number] [place] [address] Jun, 2013 [facility] [place] [facility] [address] [id number] [place] [address] Jun, 2013 [facility] [place] [facility] [address] [id number] [place] [address] May, [facility] [place] [facility] [address] [id number] [place] [address] May, [facility] [place] [facility] [address] [id number] [place] [address] May, [facility] [place] [facility] [address] [id number] [place] [address] May, [facility] [place] [facility] [address] [id number] [place] [address] May, [facility] [place] [facility] [address] [id number] [place] [address] May, [facility] [place] [facility] [address] [id number] [place] [address] May, [facility] [place] [facility] [address] [id number] [place] [address] May, [facility] [place] [facility] [address] [id number] [place] [address] Apr, [facility] [place] [facility] [address] [id number] [place] [address] Apr, [facility] [place] [facility] [address] [id number] [place] [address] Apr, [facility] [place] [facility] [address] [id number] [place] [address] Apr, [facility] [place] [facility] [address] [id number] [place] [address] Apr, [facility] [place] [facility] [address] [id number] [place] [address] Apr, [facility] [place] [facility] [address] [id number] [place] [address] Mar, [facility] [place] [facility] [address] [id number] [place] [address] Mar, [facility] [place] [facility] [address] [id number] [place] [address] Mar, [facility] [place] [facility] [address] [id number] [place] [address] Mar, [facility] [place] [facility] [address] [id number] [place] [address] Mar, [facility] [place] [facility] [address] [id number], [place] [address] Mar, [facility] [place] [facility] [address] [id number] [place] [address] Mar, [facility] [place] [facility] [address] [id number] [place] [address] Mar, [facility] [place] [facility] [address] [id number] [place] [address] February, [facility] [place] [facility] [address] [id number] [place] [address] February, [facility] [place] [facility] [address] [id number] [place] [address] February, [facility] [place] [facility] [address] [id number] [place] [address] February, [facility] [place] [facility] [address] [facility] [id number] [place] [address] February, [facility] [place] [facility] [address] [facility] [id number] [place] [address] Jan, [facility] [place] [facility] [address] [facility] [id number] [place] [address] Jan, [facility] [place] [facility] [address] [facility] [id number] [place] [address] Nov, [facility] [place] [facility] [address] [id number] [place] [address] Nov, [facility] [place] [facility] [address] [facility] [id number] [place] [address] Nov, [facility] [place] [facility] [address] [id number] [place] [address] Nov, [facility] [place] [facility] [address] [id number] [place] [address] Nov, [facility] [place] [facility] [address] [id number] [place] [address] Nov, [facility] [place] [facility] [address] [id number] [place] [address] Oct, [facility] [place] [facility] [address] [id number] [place] [address] Oct, [facility] [place] [facility] [address] [id number] [place] [address] Oct, [facility] [place] [facility] [address] [id number] [place] [address] Sep, [facility] [address] [id number] [place] [address] Sep, [facility] [place] [facility] [address] [id number] [place] [address] Aug, [facility] [address] [id number] [place] [address] Aug, [facility] [address] [id number] [place] [address] Aug, [facility] [place] [facility] [address] [id number] [place] [address] Aug, [facility] [place] [facility] [address] [id number] [place] [address] Jul, [facility] [place] [facility] [address] [id number] [place] [address] Jul, [facility] [place] [facility] [address] [id number], [place] [address] Jul, [facility] [place] [facility] [address] [id number] [place] [address] Jul, [facility] [place] [facility] [address] [id number] [place] [address] Jul, [facility] [place] [facility] [address] [id number], [place] [address] Jun, [facility] [place] [facility] [address] [id number], [place] [address] Jun, [facility] [place] [facility] [address] [id number] [place] [address] May, [facility] [place] [facility] [address] [id number] [place] [address] May, [facility] [place] [facility] [address] [id number] [place] [address] May, [facility] [place] [facility] [address] [id number] [place] [address] May, [facility] [place] [facility] [address] [id number] [place] [address] May, [facility] [place] [facility] [address] [id number] [place] [address] May, [facility] [place] [facility] [address] [id number] [place] [address] Apr, [facility] [place] [facility] [address] [id number] [place] [address] Apr, [facility] [place] [facility] [address] [id number] [place] [address] Apr, [facility] [place] [facility] [address] [id number] [place] [address] Apr, [facility] [place] [facility] [address] [id number] [place] [address] Apr, [facility] [place] [facility] [address] [id number] [place] [address] Mar, [facility] [place] [facility] [address] [id number] [place] [address] Mar, [facility] [place] [facility] [address] [id number] [place] [address] Mar, [facility] [place] [facility] [address] [id number] [place] [address] February, [facility] [place] [facility] [address] [id number] [place] [address] February, [facility] [address] [id number] [place] [address] February, [facility] [address] [id number] [place] [address] Dec, [facility] [address] [id number] [place] [address] Dec, [facility] [address] [id number] [place] [address] Dec, [facility] [address] [id number] [place] [address] Oct, [facility] [address] [id number] [place] [address] Oct, [facility] [address] [id number] [place] [address] Sep, [facility] [address] [id number] [place] [address] Sep, [facility] [address] [id number] [place] [address] Aug, [facility] [address] [id number] [place] [address] Aug, [facility] [address] [id number] [place] [address] Aug, [facility] [address] [id number] [place] [address] Aug, [facility] [place] [facility] [address] [id number] [place] [address] Aug, [facility] [address] [id number] [place] [address] Aug, [facility] [address] [id number] [place] [address] Jul, [facility] [address] [id number] [address] Jul, [facility] [address] [facility] [id number] [address] Jul, [facility] [id number] [address] Jul, [facility] [address] [facility] [id number] [address] Jul, [facility] [id number] [address] Jul, [facility] [id number] [place] [address] Jun, [facility] [id number] [address] Jun, [facility] [id number], [place] [address] Jun, [facility] [address] [id number], [place] [address] Jun, IMMUNIZATIONS No Known Immunizations SOCIAL HISTORY Never Assessed REASON FOR VISIT [facility] PLAN OF CARE VITAL SIGNS [...] infection Aug 26 Hospitalization History [facility]- Flu Sx 12/10/2016 Hospitalization History [facility]- Congestion, runny nose and abd pain 12/21/2017
--- OUTSIDE RECORDS SUMMARY | 2019-03-19 07:22 | XMS REPORT ---
Author Author Migration, Doctor Organization [facility] Address Unknown Phone Unavailable Care Team Providers Care Marketing Assistant Name Role Phone Migration, Doctor Unavailable Unavailable PROBLEMS Type Condition ICD9-CM Code YKU88-DD Code Onset Dates Condition Status SNOMED Code Problem Edema, due to unspecified malnutrition type, unspecified type R60.9 Active 615931048 Problem Chronic obstructive pulmonary disease, unspecified COPD type J44.9 Active 78796872 Problem Coronary artery disease involving alatna heart, angina presence unspecified, unspecified vessel or lesion type I25.10 Active 17338866 Problem Hypertension, benign I10 Active 74453008 Problem LAURY (obstructive sleep apnea) G47.33 Active 62487815 Problem Palpitations R00.2 Active 96332215 Problem Other chronic pain G89.29 Active 72285377 Problem Non morbid obesity due to excess calories E66.09 Active 409337815 Problem COPD exacerbation J44.1 Active 758488485 Problem Tobacco abuse Z72.0 Active 83124810 Problem Erectile dysfunction, unspecified erectile dysfunction type N52.9 Active 836342851 Problem Morbid obesity due to excess calories E66.01 Active 195150063 Problem Non morbid obesity E66.9 Active 151720669 Problem Panlobular emphysema J43.1 Active 6153479 Problem Other obesity due to excess calories E66.09 Active 013953516 Problem COPD with acute exacerbation J44.1 Active 616595802 ALLERGIES No Information ENCOUNTERS Encounter Location Date Diagnosis [facility] [address] [facility] [id number] [address] 09 Jan, [address] [facility] [id number] [address] 30 Aug, 2018 Wheezes R06.[address] [facility] [address] [id number] [address] 13 Aug, 2018 Erectile dysfunction, unspecified erectile dysfunction type N52.9 [place] [address] [address] Aug, Non morbid obesity E66.9 [facility] [id number] [place] [address] Jul, [facility] [id number] [place] [address] Jul, Testicular swelling, right N50.89 [place] [address] [address] Jul, Callus L84 [place] [id number] [place] [address] Jun, Non morbid obesity E66.9 ; COPD exacerbation J44.1 ; 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 and Dermatofibroma D23.9 [place] [id number] [place] [address] May, Non morbid obesity E66.9 and Grade II hemorrhoids K64.1 [place] [id number] [place] [address] Mar, [place] [id number] [place] [address] 04 Mar, 2018 Cough 786.2 ; Medicare annual wellness visit, initial Z00.00 ; Morbid obesity due to excess calories E66.01 ; Chronic obstructive pulmonary disease, unspecified COPD type J44.9 ; Coronary artery disease involving alatna heart, angina presence unspecified, unspecified vessel or lesion type I25.10 ; Hypertension, benign I10 and LAURY (obstructive sleep apnea) G47.33 [place] [id number] [place] [address] February, Medicare annual wellness visit, initial Z00.00 ; Morbid obesity due to excess calories E66.01 ; Chronic obstructive pulmonary disease, unspecified COPD type J44.9 ; Coronary artery disease involving alatna heart, angina presence unspecified, unspecified vessel or lesion type I25.10 ; Hypertension, benign I10 ; LAURY (obstructive sleep apnea) G47.33 ; Family history of colon cancer Z80.0 ; Other chronic pain G89.29 and Pain in right hip M25.551 [place] [address] [address] Jan, [place] [id number] [place] [address] Nov, Panlobular emphysema J43.1 [place] [address] [address] Nov, COPD exacerbation J44.[address] [address] Nov, Viral URI J06.9 [place] [address] [address] Nov, [place] [address] [address] Nov, [place] [address] [address] Sep, Other obesity due to excess calories E66.09 and Body mass index (BMI) of 36.0-36.9 in adult Z68.36 [place] [id number] [place] [address] Aug, [place] [address] [address] Aug, [place] [id number] [place] [address] Aug, Coronary artery disease involving alatna heart, angina presence unspecified, unspecified vessel or lesion type I25.10 and Chronic obstructive pulmonary disease, unspecified COPD type J44.9 [facility] [id number] [place] [address] Jul, COPD with acute exacerbation J44.1 [place] [id number] [place] [address] Jul, Non morbid obesity E66.9 [place] [address] [address] Jun, Panlobular emphysema J43.1 ; Tobacco abuse Z72.0 ; Tobacco abuse counseling Z71.6 and Non morbid obesity E66.9 [place] [address] [address] Apr, [place] [address] [address] Apr, [place] [address] [address] Mar, COPD exacerbation J44.1 [place] [address] [address] Mar, Tear of medial meniscus of right knee, current, unspecified tear type, initial encounter S83.241A [place] [address] [address] Mar, Pain in right knee M25.561 [facility] [id number] [place] [address] February, Pain in right knee M25.561 [place] [id number] [place] [address] February, Pain in right knee M25.561 [place] [id number] [place] [address] Dec, [place] [address] [address] Nov, [facility] [id number] [place] [address] Nov, Bronchitis J40 and Wheezing R06.2 [place] [address] [address] Oct, [place] [id number] [place] [address] Oct, [place] [id number] [place] [address] Oct, Non morbid obesity due to excess calories E66.09 ; Other chronic pain G89.29 and Pain in right knee M25.561 [place] [id number] [place] [address] Oct, Non morbid obesity due to excess calories E66.09 ; Other chronic pain G89.29 and Pain in right knee M25.561 [place] [id number] [place] [address] Oct, Pain in right knee M25.561 and Other chronic pain G89.29 [place] [address] [address] Aug, Encounter for immunization Z23 [place] [id number] [place] [address] Aug, [place] [id number] [place] [address] Aug, [place] [id number] [place] [address] Jun, Common wart B07.[address] [facility] [place] [id number] [place] [address] May, Cellulitis of left elbow L03.114 [place] [id number] [place] [address] Mar, Torticollis, acute M43.6 and Leg pain, left M79.605 [place] [id number] [place] [address] February, Leg pain, left M79.[address] [facility] [address] [address] Dec, COPD exacerbation J44.1 [facility] [address] [address] Dec, [facility] [address] [address] Oct, Chronic obstructive pulmonary disease, unspecified COPD type J44.[address] [facility] [address] [address] Sep, Tobacco abuse Z72.0 ; Coronary artery disease involving alatna heart, angina presence unspecified, unspecified vessel or lesion type I25.10 and Morbid obesity due to excess calories E66.01 [place] [address] [address] Sep, [place] [address] [address] Sep, Leg pain, left M79.605 [place] [address] [address] Sep, [place] [address] [address] Sep, [place] [address] [address] Aug, Essential (primary) hypertension I10 [place] [address] [address] Aug, Encounter for immunization Z23 [place] [address] [address] Aug, [place] [address] [address] May, Chronic airway obstruction, not elsewhere classified [address] [place] [address] [address] May, [facility] [address] [address] May, [facility] [id number] [place] [address] May, Acute bronchitis 466.0 [facility] [id number] [place] [address] May, [facility] [id number] [place] [address] May, Hyperglycemia 790.29 [facility] [id number] [place] [address] Apr, [facility] [id number] [place] [address] Apr, Cough 786.2 ; Hyperglycemia 790.29 and COPD (chronic obstructive pulmonary disease) 496 [facility] [id number] [place] [address] Mar, Cough 786.2 ; Elevated glucose 790.29 ; Wheezing 786.07 ; COPD exacerbation 491.21 and Nicotine dependence 305.1 [facility] [id number] [place] [address] Mar, High risk medication use V58.69 [facility] [id number] [place] [address] Mar, High risk medication use V58.69 and Benign hypertension 401.1 [facility] [address] [place] [address] Mar, [facility] [id number] [place] [address] February, [facility] [id number] [place] [address] February, [facility] [address] [place] [address] Jan, [place] [address] [id number] [place] [address] 30 Jan, 2015 Benign hypertension 401.1 [facility] [place] [facility] [address] [id number] [place] [address] 14 Jan, 2015 [facility] [place] [facility] [address] [id number] [place] [address] 13 Jan, 2015 [facility] [place] [facility] [address] [id number] [place] [address] 27 Dec, 2014 [facility] [place] [facility] [address] [id number] [place] [address] 27 Dec, 2014 [facility] [place] [facility] [address] [id number] [place] [address] 26 Dec, 2014 [facility] [place] [facility] [address] [id number] [place] [address] 18 Dec, 2014 [facility] [place] [facility] [address] [id number] [place] [address] 18 Dec, 2014 [facility] [place] [facility] [address] [id number] [place] [address] 2014 [facility] [place] [facility] [address] [id number] [place] [address] 2014 [facility] [place] [facility] [address] [id number] [place] [address] 13 Dec, 2014 [facility] [place] [facility] [address] [id number] [place] [address] 13 Dec, 2014 [facility] [place] [facility] [address] [id number] [place] [address] 06 Dec, 2014 [facility] [place] [facility] [address] [id number] [place] [address] 06 Dec, 2014 [facility] [place] [facility] [address] [facility] [id number] [place] [address] 05 Dec, 2014 [facility] [place] [facility] [address] [id number] [place] [address] Dec, [facility] [place] [facility] [address] [id number] [place] [address] Dec, [facility] [place] [facility] [address] [id number] [place] [address] Dec, [facility] [place] [facility] [address] [id number] [place] [address] Nov, [facility] [place] [facility] [address] [id number] [place] [address] Nov, [facility] [place] [facility] [address] [id number] [place] [address] Nov, [facility] [place] [facility] [address] [id number] [place] [address] Nov, [facility] [place] [facility] [address] [id number] [place] [address] Oct, [facility] [place] [facility] [address] [id number] [place] [address] Oct, [facility] [place] [facility] [address] [id number] [place] [address] Oct, [facility] [place] [facility] [address] [id number] [place] [address] Oct, [facility] [place] [facility] [address] [id number] [place] [address] Oct, [facility] [place] [facility] [address] [id number] [place] [address] Oct, [facility] [place] [facility] [address] [id number] [place] [address] Oct, [facility] [place] [facility] [address] [id number] [place] [address] Oct, [facility] [place] [facility] [address] [id number] [place] [address] Sep, [facility] [place] [facility] [address] [id number] [place] [address] Sep, [facility] [place] [facility] [address] [id number] [place] [address] Sep, [facility] [place] [facility] [address] [id number] [place] [address] Sep, [facility] [place] [facility] [address] [id number] [place] [address] Sep, [facility] [place] [facility] [address] [id number] [place] [address] Sep, [facility] [place] [facility] [address] [id number] [place] [address] Sep, [facility] [place] [facility] [address] [id number] [place] [address] Sep, [facility] [place] [facility] [address] [id number] [place] [address] Aug, [facility] [place] [facility] [address] [id number] [place] [address] Aug, [facility] [place] [facility] [address] [id number] [place] [address] Aug, [facility] [place] [facility] [address] [id number] [place] [address] Aug, [facility] [place] [facility] [address] [id number] [place] [address] Jul, [facility] [place] [facility] [address] [id number] [place] [address] Jul, [facility] [place] [facility] [address] [id number] [place] [address] Jul, [facility] [place] [facility] [address] [id number] [place] [address] Jul, [facility] [place] [facility] [address] [id number] [place] [address] Jul, [facility] [place] [facility] [address] [id number] [place] [address] Jul, [facility] [place] [facility] [address] [id number] [place] [address] Jul, [facility] [place] [facility] [address] [id number] [place] [address] Jul, [facility] [place] [facility] [address] [id number] [place] [address] Jul, [facility] [place] [facility] [address] [id number] [place] [address] Jul, [facility] [place] [facility] [address] [id number] [place] [address] Jul, [facility] [place] [facility] [address] [id number] [place] [address] Jul, [facility] [place] [facility] [address] [id number] [place] [address] Jul, [facility] [place] [facility] [address] [id number] [place] [address] Jul, [facility] [place] [facility] [address] [id number] [place] [address] Jul, [facility] [place] [facility] [address] [id number] [address] Jul, [facility] [place] [facility] [address] [id number] [place] [address] Jul, [facility] [place] [facility] [address] [id number] [place] [address] Jul, [facility] [place] [facility] [address] [id number] [place] [address] Jul, [facility] [place] [facility] [address] [id number] [address] Jul, [facility] [place] [facility] [address] [id number] [place] [address] Jul, [facility] [place] [facility] [address] [id number] [place] [address] Jul, [facility] [place] [facility] [address] [id number] [place] [address] 29 Jun, 2013 [facility] [place] [facility] [address] [id number] [place] [address] 29 Jun, 2013 [facility] [place] [facility] [address] [id number] [place] [address] Jun, 2013 [facility] [place] [facility] [address] [id number] [place] [address] Jun, 2013 [facility] [place] [facility] [address] [id number] [place] [address] 05 Jun, 2013 [facility] [place] [facility] [address] [id number] [place] [address] 05 Jun, 2013 [facility] [place] [facility] [address] [id number] [place] [address] Jun, 2013 [facility] [place] [facility] [address] [id number] [place] [address] Jun, 2013 [facility] [place] [facility] [address] [id number] [place] [address] Jun, 2013 [facility] [place] [facility] [address] [id number] [place] [address] Jun, 2013 [facility] [place] [facility] [address] [id number] [place] [address] May, [facility] [place] [facility] [address] [id number] [place] [address] May, [facility] [place] [facility] [address] [id number] [place] [address] May, [facility] [place] [facility] [address] [id number] [place] [address] May, [facility] [place] [facility] [address] [id number] [place] [address] May, [facility] [place] [facility] [address] [id number] [place] [address] May, [facility] [place] [facility] [address] [id number] [place] [address] May, [facility] [place] [facility] [address] [id number] [place] [address] May, [facility] [place] [facility] [address] [id number] [place] [address] Apr, [facility] [place] [facility] [address] [id number] [place] [address] Apr, [facility] [place] [facility] [address] [id number] [place] [address] Apr, [facility] [place] [facility] [address] [id number] [place] [address] Apr, [facility] [place] [facility] [address] [id number] [place] [address] Apr, [facility] [place] [facility] [address] [id number] [place] [address] Apr, [facility] [place] [facility] [address] [id number] [place] [address] Mar, [facility] [place] [facility] [address] [id number] [place] [address] Mar, [facility] [place] [facility] [address] [id number] [place] [address] Mar, [facility] [place] [facility] [address] [id number] [place] [address] Mar, [facility] [place] [facility] [address] [id number] [place] [address] Mar, [facility] [place] [facility] [address] [id number] [address] Mar, [facility] [place] [facility] [address] [id number] [place] [address] Mar, [facility] [place] [facility] [address] [id number] [place] [address] Mar, [facility] [place] [facility] [address] [id number] [place] [address] February, [facility] [place] [facility] [address] [id number] [place] [address] February, [facility] [place] [facility] [address] [id number] [place] [address] February, [facility] [place] [facility] [address] [id number] [place] [address] February, [facility] [place] [facility] [address] [facility] [id number] [place] [address] February, [facility] [place] [facility] [address] [facility] [id number] [place] [address] Jan, [facility] [place] [facility] [address] [facility] [id number] [place] [address] Jan, [facility] [place] [facility] [address] [facility] [id number] [place] [address] Nov, [facility] [place] [facility] [address] [id number] [place] [address] Nov, [facility] [place] [facility] [address] [facility] [id number] [place] [address] Nov, [facility] [place] [facility] [address] [id number] [place] [address] Nov, [facility] [place] [facility] [address] [id number] [place] [address] Nov, [facility] [place] [facility] [address] [id number] [place] [address] Nov, [facility] [place] [facility] [address] [id number] [place] [address] Oct, [facility] [place] [facility] [address] [id number] [place] [address] Oct, [facility] [place] [facility] [address] [id number] [place] [address] Oct, [facility] [place] [facility] [address] [id number] [place] [address] Sep, [facility] [address] [id number] [place] [address] Sep, [facility] [place] [facility] [address] [id number] [place] [address] Aug, [facility] [address] [id number] [place] [address] Aug, [facility] [address] [id number] [place] [address] Aug, [facility] [place] [facility] [address] [id number] [place] [address] Aug, [facility] [place] [facility] [address] [id number] [place] [address] Jul, [facility] [place] [facility] [address] [id number] [place] [address] Jul, [facility] [place] [facility] [address] [id number] [address] Jul, [facility] [place] [facility] [address] [id number] [place] [address] Jul, [facility] [place] [facility] [address] [id number] [place] [address] Jul, [facility] [place] [facility] [address] [id number] [place] [address] Jun, [facility] [place] [facility] [address] [id number] [address] Jun, [facility] [place] [facility] [address] [id number] [place] [address] May, [facility] [place] [facility] [address] [id number] [place] [address] May, [facility] [place] [facility] [address] [id number] [place] [address] May, [facility] [place] [facility] [address] [id number] [place] [address] May, [facility] [place] [facility] [address] [id number] [place] [address] May, [facility] [place] [facility] [address] [id number] [place] [address] May, [facility] [place] [facility] [address] [id number] [place] [address] Apr, [facility] [place] [facility] [address] [id number] [place] [address] Apr, [facility] [place] [facility] [address] [id number] [place] [address] Apr, [facility] [place] [facility] [address] [id number] [place] [address] Apr, [facility] [place] [facility] [address] [id number] [place] [address] Apr, [facility] [place] [facility] [address] [id number] [place] [address] Mar, [facility] [place] [facility] [address] [id number] [place] [address] Mar, [facility] [place] [facility] [address] [id number] [place] [address] Mar, [facility] [place] [facility] [address] [id number] [place] [address] February, [facility] [place] [facility] [address] [id number] [place] [address] February, [facility] [address] [id number] [place] [address] February, [facility] [address] [id number] [place] [id number] Dec, [facility] [address] [id number] [place] [address] Dec, [facility] [address] [id number] [place] [address] Dec, [facility] [address] [id number] [place] [address] Oct, [facility] [address] [id number] [place] [address] Oct, [facility] [address] [id number] [place] [address] Sep, [facility] [address] [id number] [place] [address] Sep, [facility] [address] [id number] [place] [address] Aug, [facility] [address] [id number] [place] [address] Aug, [facility] [address] [id number] [place] [address] Aug, [facility] [address] [id number] [place] [address] Aug, [facility] [place] [facility] [address] [id number] [place] [address] Aug, [facility] [address] [id number] [place] [address] Aug, [facility] [address] [id number] [place] [address] Jul, [facility] [address] [id number] [address] Jul, [facility] [address] [facility] [id number] [address] Jul, [facility] [id number] [address] Jul, [facility] [address] [facility] [id number] [address] Jul, [facility] [id number] [address] Jul, [facility] [id number] [place] [address] Jun, [facility] [id number] [address] Jun, [facility] [id number] [address] Jun, [facility] [address] [id number] [address] Jun, IMMUNIZATIONS No Known Immunizations SOCIAL HISTORY Never Assessed REASON FOR VISIT [facility] PLAN OF CARE VITAL [...] infection Aug 26 Hospitalization History [facility]- Flu Sx 12/10/2016 Hospitalization History [facility]- Congestion, runny nose and abd pain 12/21/2017
--- OUTSIDE RECORDS SUMMARY | 2019-03-19 07:22 | XMS REPORT ---
Author Author Migration, Doctor Organization [facility] Address Unknown Phone Unavailable Care Team Providers Care Rental Sales Representative Name Role Phone Migration, Doctor Unavailable Unavailable PROBLEMS Type Condition ICD9-CM Code ECQ61-ZE Code Onset Dates Condition Status SNOMED Code Problem Edema, due to unspecified malnutrition type, unspecified type R60.9 Active 400508645 Problem Chronic obstructive pulmonary disease, unspecified COPD type J44.9 Active 29126422 Problem Coronary artery disease involving oneida heart, angina presence unspecified, unspecified vessel or lesion type I25.10 Active 18824831 Problem Hypertension, benign I10 Active 09614605 Problem LAURY (obstructive sleep apnea) G47.33 Active 58926008 Problem Palpitations R00.2 Active 80822698 Problem Other chronic pain G89.29 Active 59202336 Problem Non morbid obesity due to excess calories E66.09 Active 555120440 Problem COPD exacerbation J44.1 Active 606242915 Problem Tobacco abuse Z72.0 Active 02309043 Problem Erectile dysfunction, unspecified erectile dysfunction type N52.9 Active 397713747 Problem Morbid obesity due to excess calories E66.01 Active 654220287 Problem Non morbid obesity E66.9 Active 543408509 Problem Panlobular emphysema J43.1 Active 8517410 Problem Other obesity due to excess calories E66.09 Active 844411667 Problem COPD with acute exacerbation J44.1 Active 667631313 ALLERGIES No Information ENCOUNTERS Encounter Location Date Diagnosis [facility] [facility] [address] [facility] [id number] [address] 09 Jan, 2019 [facility] [address] [id number] [address] 30 Aug, 2018 Wheezes R06.2 and Pneumonia J18.9 [facility] [place] [facility] [address] [id number] [address] 13 Aug, 2018 Erectile dysfunction, unspecified erectile dysfunction type N52.9 [place] [address] [address] Aug, Non morbid obesity E66.9 [facility] [id number] [place] [address] Jul, [facility] [id number] [place] [address] Jul, Testicular swelling, right N50.89 [place] [address] [address] Jul, Callus L84 [place] [id number] [place] [address] Jun, Non morbid obesity E66.9 ; COPD exacerbation J44.1 ; 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 and Dermatofibroma D23.9 [place] [id number] [place] [address] May, Non morbid obesity E66.9 and Grade II hemorrhoids K64.1 [place] [id number] [place] [address] Mar, [place] [id number] [place] [address] 04 Mar, 2018 Cough 786.2 ; Medicare annual wellness visit, initial Z00.00 ; Morbid obesity due to excess calories E66.01 ; Chronic obstructive pulmonary disease, unspecified COPD type J44.9 ; Coronary artery disease involving oneida heart, angina presence unspecified, unspecified vessel or lesion type I25.10 ; Hypertension, benign I10 and LAURY (obstructive sleep apnea) G47.33 [place] [id number] [place] [address] February, Medicare annual wellness visit, initial Z00.00 ; Morbid obesity due to excess calories E66.01 ; Chronic obstructive pulmonary disease, unspecified COPD type J44.9 ; Coronary artery disease involving oneida heart, angina presence unspecified, unspecified vessel or lesion type I25.10 ; Hypertension, benign I10 ; LAURY (obstructive sleep apnea) G47.33 ; Family history of colon cancer Z80.0 ; Other chronic pain G89.29 and Pain in right hip M25.551 [place] [address] [address] Jan, [place] [id number] [place] [address] Nov, Panlobular emphysema J43.1 [place] [address] [address] Nov, COPD exacerbation J44.[address] [address] Nov, Viral URI J06.9 [place] [address] [address] Nov, [place] [address] [address] Nov, [place] [address] [address] Sep, Other obesity due to excess calories E66.09 and Body mass index (BMI) of 36.0-36.9 in adult Z68.36 [place] [id number] [place] [address] Aug, [place] [address] [address] Aug, [place] [id number] [place] [address] Aug, Coronary artery disease involving oneida heart, angina presence unspecified, unspecified vessel or lesion type I25.10 and Chronic obstructive pulmonary disease, unspecified COPD type J44.9 [facility] [id number] [place] [address] Jul, COPD with acute exacerbation J44.1 [place] [id number] [place] [address] Jul, Non morbid obesity E66.9 [place] [address] [address] Jun, Panlobular emphysema J43.1 ; Tobacco abuse Z72.0 ; Tobacco abuse counseling Z71.6 and Non morbid obesity E66.9 [place] [address] [address] Apr, [place] [address] [address] Apr, [place] [address] [address] Mar, COPD exacerbation J44.1 [place] [address] [address] Mar, Tear of medial meniscus of right knee, current, unspecified tear type, initial encounter S83.241A [place] [address] [address] Mar, Pain in right knee M25.561 [facility] [id number] [place] [address] February, Pain in right knee M25.561 [place] [id number] [place] [address] February, Pain in right knee M25.561 [place] [id number] [place] [address] Dec, [place] [address] [address] Nov, [facility] [id number] [place] [address] Nov, Bronchitis J40 and Wheezing R06.2 [place] [address] [address] Oct, [place] [id number] [place] [address] Oct, [place] [id number] [place] [address] Oct, Non morbid obesity due to excess calories E66.09 ; Other chronic pain G89.29 and Pain in right knee M25.561 [place] [id number] [place] [address] Oct, Non morbid obesity due to excess calories E66.09 ; Other chronic pain G89.29 and Pain in right knee M25.561 [place] [id number] [place] [address] Oct, Pain in right knee M25.561 and Other chronic pain G89.29 [place] [address] [address] Aug, Encounter for immunization Z23 [place] [id number] [place] [address] Aug, [place] [id number] [place] [address] Aug, [place] [id number] [place] [address] Jun, Common wart B07.8 [facility] [place] [id number] [place] [address] May, Cellulitis of left elbow L03.114 [place] [id number] [place] [address] Mar, Torticollis, acute M43.6 and Leg pain, left M79.605 [place] [id number] [place] [address] February, Leg pain, left M79.605 [facility] [address] [address] Dec, COPD exacerbation J44.1 [facility] [place] [facility] [address] [address] Dec, [facility] [place] [facility] [address] [address] Oct, Chronic obstructive pulmonary disease, unspecified COPD type J44.9 and Hyperglycemia R73.9 [facility] [place] [facility] [address] [address] Sep, Tobacco abuse Z72.0 ; Coronary artery disease involving oneida heart, angina presence unspecified, unspecified vessel or lesion type I25.10 and Morbid obesity due to excess calories E66.01 [place] [address] [address] Sep, [place] [address] [address] Sep, Leg pain, left M79.605 [place] [address] [address] Sep, [place] [address] [address] Sep, [place] [address] [address] Aug, Essential (primary) hypertension I10 [place] [address] [address] Aug, Encounter for immunization Z23 [place] [address] [address] Aug, [place] [address] [address] May, Chronic airway obstruction, not elsewhere classified [address] [place] [address] [address] May, [facility] [facility] [address] [address] May, [facility] [place] [facility] [id number] [place] [address] May, Acute bronchitis 466.0 [facility] [facility] [id number] [place] [address] May, [facility] [place] [facility] [id number] [place] [address] May, Hyperglycemia 790.29 [facility] [facility] [id number] [place] [address] Apr, [facility] [facility] [id number] [place] [address] Apr, Cough 786.2 ; Hyperglycemia 790.29 and COPD (chronic obstructive pulmonary disease) 496 [facility] [facility] [id number] [place] [address] Mar, Cough 786.2 ; Elevated glucose 790.29 ; Wheezing 786.07 ; COPD exacerbation 491.21 and Nicotine dependence 305.1 [facility] [place] [facility] [id number] [place] [address] Mar, High risk medication use V58.69 [facility] [facility] [id number] [place] [address] Mar, High risk medication use V58.69 and Benign hypertension 401.1 [facility] [place] [facility] [address] [place] [address] Mar, [facility] [facility] [id number] [place] [address] February, [facility] [facility] [id number] [place] [address] February, [facility] [place] [facility] [address] [place] [address] Jan, [place] [address] [id number] [place] [address] 30 Jan, 2015 Benign hypertension 401.1 [facility] [place] [facility] [address] [id number] [place] [address] 14 Jan, 2015 [facility] [place] [facility] [address] [id number] [place] [address] 13 Jan, 2015 [facility] [place] [facility] [address] [id number] [place] [address] 27 Dec, 2014 [facility] [place] [facility] [address] [id number] [place] [address] 27 Dec, 2014 [facility] [place] [facility] [address] [id number] [place] [address] 26 Dec, 2014 [facility] [place] [facility] [address] [id number] [place] [address] 18 Dec, 2014 [facility] [place] [facility] [address] [id number] [place] [address] 18 Dec, 2014 [facility] [place] [facility] [address] [id number] [place] [address] 2014 [facility] [place] [facility] [address] [id number] [place] [address] 2014 [facility] [place] [facility] [address] [id number] [place] [address] 13 Dec, 2014 [facility] [place] [facility] [address] [id number] [address] 13 Dec, 2014 [facility] [place] [facility] [address] [id number] [place] [address] 06 Dec, 2014 [facility] [place] [facility] [address] [id number] [place] [address] 06 Dec, 2014 [facility] [place] [facility] [address] [facility] [id number] [address] 05 Dec, 2014 [facility] [place] [facility] [address] [id number] [address] Dec, [facility] [place] [facility] [address] [id number] [place] [address] Dec, [facility] [place] [facility] [address] [id number] [place] [address] Dec, [facility] [place] [facility] [address] [id number] [place] [address] Nov, [facility] [place] [facility] [address] [id number] [place] [address] Nov, [facility] [place] [facility] [address] [id number] [place] [address] Nov, [facility] [place] [facility] [address] [id number] [place] [address] Nov, [facility] [place] [facility] [address] [id number] [place] [address] Oct, [facility] [place] [facility] [address] [id number] [place] [address] Oct, [facility] [place] [facility] [address] [id number] [place] [address] Oct, [facility] [place] [facility] [address] [id number] [place] [address] Oct, [facility] [place] [facility] [address] [id number] [place] [address] Oct, [facility] [place] [facility] [address] [id number] [address] Oct, [facility] [place] [facility] [address] [id number] [place] [address] Oct, [facility] [place] [facility] [address] [id number] [place] [address] Oct, [facility] [place] [facility] [address] [id number] [address] Sep, [facility] [place] [facility] [address] [id number] [place] [address] Sep, [facility] [place] [facility] [address] [id number] [place] [address] Sep, [facility] [place] [facility] [address] [id number] [place] [address] Sep, [facility] [place] [facility] [address] [id number] [place] [address] Sep, [facility] [place] [facility] [address] [id number] [place] [address] Sep, [facility] [place] [facility] [address] [id number] [place] [address] Sep, [facility] [place] [facility] [address] [id number] [place] [address] Sep, [facility] [place] [facility] [address] [id number] [place] [address] Aug, [facility] [place] [facility] [address] [id number] [place] [address] Aug, [facility] [place] [facility] [address] [id number] [place] [address] Aug, [facility] [place] [facility] [address] [id number] [place] [address] Aug, [facility] [place] [facility] [address] [id number] [place] [address] Jul, [facility] [place] [facility] [address] [id number] [place] [address] Jul, [facility] [place] [facility] [address] [id number] [place] [address] Jul, [facility] [place] [facility] [address] [id number] [place] [address] Jul, [facility] [place] [facility] [address] [id number] [address] Jul, [facility] [place] [facility] [address] [id number] [place] [address] Jul, [facility] [place] [facility] [address] [id number] [place] [address] Jul, [facility] [place] [facility] [address] [id number] [place] [address] Jul, [facility] [place] [facility] [address] [id number] [place] [address] Jul, [facility] [place] [facility] [address] [id number] [place] [address] Jul, [facility] [place] [facility] [address] [id number] [place] [address] Jul, [facility] [place] [facility] [address] [id number] [place] [address] Jul, [facility] [place] [facility] [address] [id number] [address] Jul, [facility] [place] [facility] [address] [id number] [place] [address] Jul, [facility] [place] [facility] [address] [id number] [address] Jul, [facility] [place] [facility] [address] [id number] [address] Jul, [facility] [place] [facility] [address] [id number] [address] Jul, [facility] [place] [facility] [address] [id number] [place] [address] Jul, [facility] [place] [facility] [address] [id number] [address] Jul, [facility] [place] [facility] [address] [id number] [address] Jul, [facility] [place] [facility] [address] [id number] [place] [address] Jul, [facility] [place] [facility] [address] [id number] [place] [address] Jul, [facility] [place] [facility] [address] [id number] [place] [address] 29 Jun, 2013 [facility] [place] [facility] [address] [id number] [place] [address] 29 Jun, 2013 [facility] [place] [facility] [address] [id number] [place] [address] Jun, 2013 [facility] [place] [facility] [address] [id number] [place] [address] Jun, 2013 [facility] [place] [facility] [address] [id number] [place] [address] 05 Jun, 2013 [facility] [place] [facility] [address] [id number] [place] [address] 05 Jun, 2013 [facility] [place] [facility] [address] [id number] [place] [address] Jun, 2013 [facility] [place] [facility] [address] [id number] [place] [address] Jun, 2013 [facility] [place] [facility] [address] [id number] [place] [address] Jun, 2013 [facility] [place] [facility] [address] [id number] [place] [address] Jun, 2013 [facility] [place] [facility] [address] [id number] [place] [address] May, [facility] [place] [facility] [address] [id number] [place] [address] May, [facility] [place] [facility] [address] [id number] [place] [address] May, [facility] [place] [facility] [address] [id number] [place] [address] May, [facility] [place] [facility] [address] [id number] [place] [address] May, [facility] [place] [facility] [address] [id number] [place] [address] May, [facility] [place] [facility] [address] [id number] [place] [address] May, [facility] [place] [facility] [address] [id number] [place] [address] May, [facility] [place] [facility] [address] [id number] [place] [address] Apr, [facility] [place] [facility] [address] [id number] [place] [address] Apr, [facility] [place] [facility] [address] [id number] [place] [address] Apr, [facility] [place] [facility] [address] [id number] [place] [address] Apr, [facility] [place] [facility] [address] [id number] [place] [address] Apr, [facility] [place] [facility] [address] [id number] [place] [address] Apr, [facility] [place] [facility] [address] [id number] [place] [address] Mar, [facility] [place] [facility] [address] [id number] [place] [address] Mar, [facility] [place] [facility] [address] [id number] [place] [address] Mar, [facility] [place] [facility] [address] [id number] [place] [address] Mar, [facility] [place] [facility] [address] [id number] [place] [address] Mar, [facility] [place] [facility] [address] [id number] [address] Mar, [facility] [place] [facility] [address] [id number] [place] [address] Mar, [facility] [place] [facility] [address] [id number] [place] [address] Mar, [facility] [place] [facility] [address] [id number] [place] [address] February, [facility] [place] [facility] [address] [id number] [place] [address] February, [facility] [place] [facility] [address] [id number] [place] [address] February, [facility] [place] [facility] [address] [id number] [place] [address] February, [facility] [place] [facility] [address] [facility] [id number] [place] [address] February, [facility] [place] [facility] [address] [facility] [id number] [place] [address] Jan, [facility] [place] [facility] [address] [facility] [id number] [place] [address] Jan, [facility] [place] [facility] [address] [facility] [id number] [place] [address] Nov, [facility] [place] [facility] [address] [id number] [place] [address] Nov, [facility] [place] [facility] [address] [facility] [id number] [place] [address] Nov, [facility] [place] [facility] [address] [id number] [place] [address] Nov, [facility] [place] [facility] [address] [id number] [place] [address] Nov, [facility] [place] [facility] [address] [id number] [place] [address] Nov, [facility] [place] [facility] [address] [id number] [place] [address] Oct, [facility] [place] [facility] [address] [id number] [place] [address] Oct, [facility] [place] [facility] [address] [id number] [place] [address] Oct, [facility] [place] [facility] [address] [id number] [place] [address] Sep, [facility] [address] [id number] [place] [address] Sep, [facility] [place] [facility] [address] [id number] [place] [address] Aug, [facility] [address] [id number] [place] [address] Aug, [facility] [address] [id number] [place] [address] Aug, [facility] [place] [facility] [address] [id number] [place] [address] Aug, [facility] [place] [facility] [address] [id number] [place] [address] Jul, [facility] [place] [facility] [address] [id number] [place] [address] Jul, [facility] [place] [facility] [address] [id number] [address] Jul, [facility] [place] [facility] [address] [id number] [place] [address] Jul, [facility] [place] [facility] [address] [id number] [place] [address] Jul, [facility] [place] [facility] [address] [id number] [address] Jun, [facility] [place] [facility] [address] [id number] [address] Jun, [facility] [place] [facility] [address] [id number] [place] [address] May, [facility] [place] [facility] [address] [id number] [place] [address] May, [facility] [place] [facility] [address] [id number] [place] [address] May, [facility] [place] [facility] [address] [id number] [place] [address] May, [facility] [place] [facility] [address] [id number] [place] [address] May, [facility] [place] [facility] [address] [id number] [place] [address] May, [facility] [place] [facility] [address] [id number] [place] [address] Apr, [facility] [place] [facility] [address] [id number] [place] [address] Apr, [facility] [place] [facility] [address] [id number] [place] [address] Apr, [facility] [place] [facility] [address] [id number] [place] [address] Apr, [facility] [place] [facility] [address] [id number] [place] [address] Apr, [facility] [place] [facility] [address] [id number] [place] [address] Mar, [facility] [place] [facility] [address] [id number] [place] [address] Mar, [facility] [place] [facility] [address] [id number] [place] [address] Mar, [facility] [place] [facility] [address] [id number] [place] [address] February, [facility] [place] [facility] [address] [id number] [place] [address] February, [facility] [address] [id number] [place] [address] February, [facility] [address] [id number] [place] [address] Dec, [facility] [address] [id number] [place] [address] Dec, [facility] [address] [id number] [place] [address] Dec, [facility] [address] [id number] [place] [address] Oct, [facility] [address] [id number] [place] [address] Oct, [facility] [address] [address] [id number] [place] [address] Sep, [facility] [address] [id number] [place] [address] Sep, [facility] [address] [id number] [place] [address] Aug, [facility] [address] [id number] [place] [address] Aug, [facility] [address] [id number] [place] [address] Aug, [facility] [address] [id number] [place] [address] Aug, [facility] [place] [facility] [address] [id number] [place] [address] Aug, [facility] [address] [id number] [place] [address] Aug, [facility] [address] [id number] [place] [address] Jul, [facility] [place] [facility] [id number] [address] Jul, [facility] [place] [facility] [address] [facility] [id number] [address] Jul, [facility] [place] [facility] [id number] [address] Jul, [facility] [place] [facility] [address] [facility] [id number] [address] Jul, [facility] [place] [facility] [id number] [address] Jul, [facility] [place] [facility] [id number] [place] [address] Jun, [facility] [place] [facility] [id number] [address] Jun, [facility] [place] [facility] [id number] [address] Jun, [facility] [place] [facility] [id number] [address] Jun, IMMUNIZATIONS No Known Immunizations SOCIAL HISTORY Never Assessed REASON FOR VISIT [facility] PLAN OF CARE VITAL SIGNS MEDICATIONS [...] infection Aug 26 [facility]ization [facility]- Flu Sx 12/10/2016 Hospitalization [facility]- Congestion, runny nose and abd pain 12/21/2017
--- OUTSIDE RECORDS SUMMARY | 2019-03-19 07:23 | XMS REPORT ---
Author Author Migration, Doctor Organization [facility] Address Unknown Phone Unavailable Care Team Providers Care Stock Broker Name Role Phone Migration, Doctor Unavailable Unavailable PROBLEMS Type Condition ICD9-CM Code SUO59-XN Code Onset Dates Condition Status SNOMED Code Problem Edema, due to unspecified malnutrition type, unspecified type R60.9 Active 689793773 Problem Chronic obstructive pulmonary disease, unspecified COPD type J44.9 Active 09767746 Problem Coronary artery disease involving tejon heart, angina presence unspecified, unspecified vessel or lesion type I25.10 Active 79046937 Problem Hypertension, benign I10 Active 22029768 Problem LAURY (obstructive sleep apnea) G47.33 Active 13740028 Problem Palpitations R00.2 Active 48320801 Problem Other chronic pain G89.29 Active 23412334 Problem Non morbid obesity due to excess calories E66.09 Active 161046839 Problem COPD exacerbation J44.1 Active 499091623 Problem Tobacco abuse Z72.0 Active 18503171 Problem Erectile dysfunction, unspecified erectile dysfunction type N52.9 Active 155980310 Problem Morbid obesity due to excess calories E66.01 Active 442006851 Problem Non morbid obesity E66.9 Active 976507321 Problem Panlobular emphysema J43.1 Active 6554592 Problem Other obesity due to excess calories E66.09 Active 830373805 Problem COPD with acute exacerbation J44.1 Active 234076141 ALLERGIES No Information ENCOUNTERS Encounter Location Date Diagnosis [facility] [address] [facility] [id number] [address] 09 Jan, 2019 [facility] [address] [id number] [address] 30 Aug, 2018 Wheezes R06.2 and Pneumonia J18.9 [facility] [address] [id number] [address] 13 Aug, 2018 Erectile dysfunction, unspecified erectile dysfunction type N52.9 [place] [address] [address] Aug, Non morbid obesity E66.9 [facility] [id number] [place] [address] Jul, [facility] [id number] [place] [address] Jul, Testicular swelling, right N50.89 [place] [address] [address] Jul, Callus L84 [place] [id number] [place] [address] Jun, Non morbid obesity E66.9 ; COPD exacerbation J44.1 ; 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 and Dermatofibroma D23.9 [place] [id number] [place] [address] May, Non morbid obesity E66.9 and Grade II hemorrhoids K64.1 [place] [id number] [place] [address] Mar, [place] [id number] [place] [address] 04 Mar, 2018 Cough 786.2 ; Medicare annual wellness visit, initial Z00.00 ; Morbid obesity due to excess calories E66.01 ; Chronic obstructive pulmonary disease, unspecified COPD type J44.9 ; Coronary artery disease involving tejon heart, angina presence unspecified, unspecified vessel or lesion type I25.10 ; Hypertension, benign I10 and LAURY (obstructive sleep apnea) G47.33 [place] [id number] [place] [address] February, Medicare annual wellness visit, initial Z00.00 ; Morbid obesity due to excess calories E66.01 ; Chronic obstructive pulmonary disease, unspecified COPD type J44.9 ; Coronary artery disease involving tejon heart, angina presence unspecified, unspecified vessel or lesion type I25.10 ; Hypertension, benign I10 ; LAURY (obstructive sleep apnea) G47.33 ; Family history of colon cancer Z80.0 ; Other chronic pain G89.29 and Pain in right hip M25.551 [place] [address] [address] Jan, [place] [id number] [place] [address] Nov, Panlobular emphysema J43.1 [place] [address] [address] Nov, COPD exacerbation J44.[address] [address] Nov, Viral URI J06.9 [place] [address] [address] Nov, [place] [address] [address] Nov, [place] [address] [address] Sep, Other obesity due to excess calories E66.09 and Body mass index (BMI) of 36.0-36.9 in adult Z68.36 [place] [id number] [place] [address] Aug, [place] [address] [address] Aug, [place] [id number] [place] [address] Aug, Coronary artery disease involving tejon heart, angina presence unspecified, unspecified vessel or lesion type I25.10 and Chronic obstructive pulmonary disease, unspecified COPD type J44.9 [facility] [id number] [place] [address] Jul, COPD with acute exacerbation J44.1 [place] [id number] [place] [address] Jul, Non morbid obesity E66.9 [place] [address] [address] Jun, Panlobular emphysema J43.1 ; Tobacco abuse Z72.0 ; Tobacco abuse counseling Z71.6 and Non morbid obesity E66.9 [place] [address] [address] Apr, [place] [address] [address] Apr, [place] [address] [address] Mar, COPD exacerbation J44.1 [place] [address] [address] Mar, Tear of medial meniscus of right knee, current, unspecified tear type, initial encounter S83.241A [place] [address] [address] Mar, Pain in right knee M25.561 [facility] [id number] [place] [address] February, Pain in right knee M25.561 [place] [id number] [place] [address] February, Pain in right knee M25.561 [place] [id number] [place] [address] Dec, [place] [address] [address] Nov, [facility] [id number] [place] [address] Nov, Bronchitis J40 and Wheezing R06.2 [place] [address] [address] Oct, [place] [id number] [place] [address] Oct, [place] [id number] [place] [address] Oct, Non morbid obesity due to excess calories E66.09 ; Other chronic pain G89.29 and Pain in right knee M25.561 [place] [id number] [place] [address] Oct, Non morbid obesity due to excess calories E66.09 ; Other chronic pain G89.29 and Pain in right knee M25.561 [place] [id number] [place] [address] Oct, Pain in right knee M25.561 and Other chronic pain G89.29 [place] [address] [address] Aug, Encounter for immunization Z23 [place] [id number] [place] [address] Aug, [place] [id number] [place] [address] Aug, [place] [id number] [place] [address] Jun, Common wart B07.8 [facility] [place] [id number] [place] [address] May, Cellulitis of left elbow L03.114 [place] [id number] [place] [address] Mar, Torticollis, acute M43.6 and Leg pain, left M79.605 [place] [id number] [place] [address] February, Leg pain, left M79.605 [facility] [address] [address] Dec, COPD exacerbation J44.1 [facility] [address] [address] Dec, [facility] [address] [address] Oct, Chronic obstructive pulmonary disease, unspecified COPD type J44.9 and Hyperglycemia R73.9 [facility] [address] [address] Sep, Tobacco abuse Z72.0 ; Coronary artery disease involving tejon heart, angina presence unspecified, unspecified vessel or lesion type I25.10 and Morbid obesity due to excess calories E66.01 [place] [address] [address] Sep, [place] [address] [address] Sep, Leg pain, left M79.605 [place] [address] [address] Sep, [place] [address] [address] Sep, [place] [address] [address] Aug, Essential (primary) hypertension I10 [place] [address] [address] Aug, Encounter for immunization Z23 [place] [address] [address] Aug, [place] [address] [address] May, Chronic airway obstruction, not elsewhere classified [address] [place] [address] [address] [address] May, [facility] [address] [address] May, [facility] [id number] [place] [address] May, Acute bronchitis 466.0 [facility] [id number] [place] [address] May, [facility] [id number] [place] [address] May, Hyperglycemia 790.29 [facility] [id number] [place] [address] Apr, [facility] [id number] [place] [address] Apr, Cough 786.2 ; Hyperglycemia 790.29 and COPD (chronic obstructive pulmonary disease) 496 [facility] [id number] [place] [address] Mar, Cough 786.2 ; Elevated glucose 790.29 ; Wheezing 786.07 ; COPD exacerbation 491.21 and Nicotine dependence 305.1 [facility] [id number] [place] [address] Mar, High risk medication use V58.69 [facility] [id number] [place] [address] Mar, High risk medication use V58.69 and Benign hypertension 401.1 [facility] [address] [place] [address] Mar, [facility] [id number] [place] [address] February, [facility] [id number] [place] [address] February, [facility] [address] [place] [address] Jan, [place] [address] [id number] [place] [address] 30 Jan, 2015 Benign hypertension 401.1 [facility] [place] [facility] [address] [id number] [place] [address] 14 Jan, 2015 [facility] [place] [facility] [address] [id number] [place] [address] 13 Jan, 2015 [facility] [place] [facility] [address] [id number] [place] [address] 27 Dec, 2014 [facility] [place] [facility] [address] [id number] [place] [address] 27 Dec, 2014 [facility] [place] [facility] [address] [id number] [place] [address] 26 Dec, 2014 [facility] [place] [facility] [address] [id number] [place] [address] 18 Dec, 2014 [facility] [place] [facility] [address] [id number] [place] [address] 18 Dec, 2014 [facility] [place] [facility] [address] [id number] [place] [address] 2014 [facility] [place] [facility] [address] [id number] [place] [address] 2014 [facility] [place] [facility] [address] [id number] [place] [address] 13 Dec, 2014 [facility] [place] [facility] [address] [id number] [place] [address] 13 Dec, 2014 [facility] [place] [facility] [address] [id number] [place] [address] 06 Dec, 2014 [facility] [place] [facility] [address] [id number] [place] [address] 06 Dec, 2014 [facility] [place] [facility] [address] [facility] [id number] [place] [address] 05 Dec, 2014 [facility] [place] [facility] [address] [id number] [place] [address] Dec, [facility] [place] [facility] [address] [id number] [place] [address] Dec, [facility] [place] [facility] [address] [id number] [place] [address] Dec, [facility] [place] [facility] [address] [id number] [place] [address] Nov, [facility] [place] [facility] [address] [id number] [place] [address] Nov, [facility] [place] [facility] [address] [id number] [place] [address] Nov, [facility] [place] [facility] [address] [id number] [place] [address] Nov, [facility] [place] [facility] [address] [id number] [place] [address] Oct, [facility] [place] [facility] [address] [id number] [place] [address] Oct, [facility] [place] [facility] [address] [id number] [place] [address] Oct, [facility] [place] [facility] [address] [id number] [place] [address] Oct, [facility] [place] [facility] [address] [id number] [place] [address] Oct, [facility] [place] [facility] [address] [id number] [place] [address] Oct, [facility] [place] [facility] [address] [id number] [place] [address] Oct, [facility] [place] [facility] [address] [id number] [place] [address] Oct, [facility] [place] [facility] [address] [id number] [place] [address] Sep, [facility] [place] [facility] [address] [id number] [place] [address] Sep, [facility] [place] [facility] [address] [id number] [place] [address] Sep, [facility] [place] [facility] [address] [id number] [place] [address] Sep, [facility] [place] [facility] [address] [id number] [place] [address] Sep, [facility] [place] [facility] [address] [id number] [place] [address] Sep, [facility] [place] [facility] [address] [id number] [place] [address] Sep, [facility] [place] [facility] [address] [id number] [place] [address] Sep, [facility] [place] [facility] [address] [id number] [place] [address] Aug, [facility] [place] [facility] [address] [id number] [place] [address] Aug, [facility] [place] [facility] [address] [id number] [place] [address] Aug, [facility] [place] [facility] [address] [id number] [place] [address] Aug, [facility] [place] [facility] [address] [id number] [place] [address] Jul, [facility] [place] [facility] [address] [id number] [place] [address] Jul, [facility] [place] [facility] [address] [id number] [place] [address] Jul, [facility] [place] [facility] [address] [id number] [place] [address] Jul, [facility] [place] [facility] [address] [id number] [place] [address] Jul, [facility] [place] [facility] [address] [id number] [place] [address] Jul, [facility] [place] [facility] [address] [id number] [place] [address] Jul, [facility] [place] [facility] [address] [id number] [place] [address] Jul, [facility] [place] [facility] [address] [id number] [place] [address] Jul, [facility] [place] [facility] [address] [id number] [place] [address] Jul, [facility] [place] [facility] [address] [id number] [place] [address] Jul, [facility] [place] [facility] [address] [id number] [place] [address] Jul, [facility] [place] [facility] [address] [id number] [place] [address] Jul, [facility] [place] [facility] [address] [id number] [place] [address] Jul, [facility] [place] [facility] [address] [id number] [place] [address] Jul, [facility] [place] [facility] [address] [id number] [place] [address] Jul, [facility] [place] [facility] [address] [id number] [place] [address] Jul, [facility] [place] [facility] [address] [id number] [place] [address] Jul, [facility] [place] [facility] [address] [id number] [place] [address] Jul, [facility] [place] [facility] [address] [id number] [place] [address] Jul, [facility] [place] [facility] [address] [id number] [place] [address] Jul, [facility] [place] [facility] [address] [id number] [place] [address] Jul, [facility] [place] [facility] [address] [id number] [place] [address] 29 Jun, 2013 [facility] [place] [facility] [address] [id number] [place] [address] 29 Jun, 2013 [facility] [place] [facility] [address] [id number] [place] [address] Jun, 2013 [facility] [place] [facility] [address] [id number] [place] [address] Jun, 2013 [facility] [place] [facility] [address] [id number] [place] [address] 05 Jun, 2013 [facility] [place] [facility] [address] [id number] [place] [address] 05 Jun, 2013 [facility] [place] [facility] [address] [id number] [place] [address] Jun, 2013 [facility] [place] [facility] [address] [id number] [place] [address] Jun, 2013 [facility] [place] [facility] [address] [id number] [place] [address] Jun, 2013 [facility] [place] [facility] [address] [id number] [place] [address] Jun, 2013 [facility] [place] [facility] [address] [id number] [place] [address] May, [facility] [place] [facility] [address] [id number] [place] [address] May, [facility] [place] [facility] [address] [id number] [place] [address] May, [facility] [place] [facility] [address] [id number] [place] [address] May, [facility] [place] [facility] [address] [id number] [place] [address] May, [facility] [place] [facility] [address] [id number] [place] [address] May, [facility] [place] [facility] [address] [id number] [place] [address] May, [facility] [place] [facility] [address] [id number] [place] [address] May, [facility] [place] [facility] [address] [id number] [place] [address] Apr, [facility] [place] [facility] [address] [id number] [place] [address] Apr, [facility] [place] [facility] [address] [id number] [place] [address] Apr, [facility] [place] [facility] [address] [id number] [place] [address] Apr, [facility] [place] [facility] [address] [id number] [place] [address] Apr, [facility] [place] [facility] [address] [id number] [place] [address] Apr, [facility] [place] [facility] [address] [id number] [place] [address] Mar, [facility] [place] [facility] [address] [id number] [place] [address] Mar, [facility] [place] [facility] [address] [id number] [place] [address] Mar, [facility] [place] [facility] [address] [id number] [place] [address] Mar, [facility] [place] [facility] [address] [id number] [place] [address] Mar, [facility] [place] [facility] [address] [id number] [place] [address] Mar, [facility] [place] [facility] [address] [id number] [place] [address] Mar, [facility] [place] [facility] [address] [id number] [place] [address] Mar, [facility] [place] [facility] [address] [id number] [place] [address] February, [facility] [place] [facility] [address] [id number] [place] [address] February, [facility] [place] [facility] [address] [id number] [place] [address] February, [facility] [place] [facility] [address] [id number] [place] [address] February, [facility] [place] [facility] [address] [facility] [id number] [place] [address] February, [facility] [place] [facility] [address] [facility] [id number] [place] [address] Jan, [facility] [place] [facility] [address] [facility] [id number] [place] [address] Jan, [facility] [place] [facility] [address] [facility] [id number] [place] [address] Nov, [facility] [place] [facility] [address] [id number] [place] [address] Nov, [facility] [place] [facility] [address] [facility] [id number] [place] [address] Nov, [facility] [place] [facility] [address] [id number] [place] [address] Nov, [facility] [place] [facility] [address] [id number] [place] [address] Nov, [facility] [place] [facility] [address] [id number] [place] [address] Nov, [facility] [place] [facility] [address] [id number] [place] [address] Oct, [facility] [place] [facility] [address] [id number] [place] [address] Oct, [facility] [place] [facility] [address] [id number] [place] [address] Oct, [facility] [place] [facility] [address] [id number] [place] [address] Sep, [facility] [address] [id number] [place] [address] Sep, [facility] [place] [facility] [address] [id number] [place] [address] Aug, [facility] [address] [id number] [place] [address] Aug, [facility] [address] [id number] [place] [address] Aug, [facility] [place] [facility] [address] [id number] [place] [address] Aug, [facility] [place] [facility] [address] [id number] [place] [address] Jul, [facility] [place] [facility] [address] [id number] [place] [address] Jul, [facility] [place] [facility] [address] [id number] [place] [address] Jul, [facility] [place] [facility] [address] [id number] [place] [address] Jul, [facility] [place] [facility] [address] [id number] [place] [address] Jul, [facility] [place] [facility] [address] [id number] [place] [address] Jun, [facility] [place] [facility] [address] [id number] [place] [address] Jun, [facility] [place] [facility] [address] [id number] [place] [address] May, [facility] [place] [facility] [address] [id number] [place] [address] May, [facility] [place] [facility] [address] [id number] [place] [address] May, [facility] [place] [facility] [address] [id number] [place] [address] May, [facility] [place] [facility] [address] [id number] [place] [address] May, [facility] [place] [facility] [address] [id number] [place] [address] May, [facility] [place] [facility] [address] [id number] [place] [address] Apr, [facility] [place] [facility] [address] [id number] [place] [address] Apr, [facility] [place] [facility] [address] [id number] [place] [address] Apr, [facility] [place] [facility] [address] [id number] [place] [address] Apr, [facility] [place] [facility] [address] [id number] [place] [address] Apr, [facility] [place] [facility] [address] [id number] [place] [address] Mar, [facility] [place] [facility] [address] [id number] [place] [address] Mar, [facility] [place] [facility] [address] [id number] [place] [address] Mar, [facility] [place] [facility] [address] [id number] [place] [address] February, [facility] [place] [facility] [address] [id number] [place] [address] February, [facility] [address] [id number] [place] [address] February, [facility] [address] [id number] [place] [address] Dec, [facility] [facility] [address] [id number] [place] [address] Dec, [facility] [address] [id number] [place] [address] Dec, [facility] [address] [id number] [place] [address] Oct, [facility] [address] [id number] [place] [address] Oct, [facility] [address] [id number] [place] [address] Sep, [facility] [address] [id number] [place] [address] Sep, [facility] [address] [id number] [place] [address] Aug, [facility] [address] [id number] [place] [address] Aug, [facility] [address] [id number] [place] [address] Aug, [facility] [address] [id number] [place] [address] Aug, [facility] [place] [facility] [address] [id number] [place] [address] Aug, [facility] [address] [id number] [place] [address] Aug, [facility] [address] [id number] [place] [address] Jul, [facility] [address] [id number] [address] Jul, [facility] [address] [facility] [id number] [address] Jul, [facility] [id number] [address] Jul, [facility] [address] [facility] [id number] [address] Jul, [facility] [id number] [address] Jul, [facility] [id number] [place] [address] Jun, [facility] [id number] [address] Jun, [facility] [id number] [address] Jun, [facility] [address] [id number] [address] Jun, IMMUNIZATIONS No Known Immunizations SOCIAL HISTORY Never Assessed REASON FOR VISIT [facility] PLAN OF CARE VITAL SIGNS [...] infection Aug 26 Hospitalization History [facility]- Flu Sx 12/10/2016 Hospitalization History [facility]- Congestion, runny nose and abd pain 12/21/2017
--- OUTSIDE RECORDS SUMMARY | 2019-03-19 07:23 | XMS REPORT ---
Author Author Migration, Doctor Organization [facility] Address Unknown Phone Unavailable Care Team Providers Care Retort Condenser Attendant Name Role Phone Migration, Doctor Unavailable Unavailable PROBLEMS Type Condition ICD9-CM Code QHF83-AQ Code Onset Dates Condition Status SNOMED Code Problem Edema, due to unspecified malnutrition type, unspecified type R60.9 Active 325703518 Problem Chronic obstructive pulmonary disease, unspecified COPD type J44.9 Active 85757288 Problem Coronary artery disease involving [place] heart, angina presence unspecified, unspecified vessel or lesion type I25.10 Active 46982178 Problem Hypertension, benign I10 Active 96282629 Problem LAURY (obstructive sleep apnea) G47.33 Active 13752792 Problem Palpitations R00.2 Active 45652177 Problem Other chronic pain G89.29 Active 83445343 Problem Non morbid obesity due to excess calories E66.09 Active 363653922 Problem COPD exacerbation J44.1 Active 678526037 Problem Tobacco abuse Z72.0 Active 25640676 Problem Erectile dysfunction, unspecified erectile dysfunction type N52.9 Active 572943397 Problem Morbid obesity due to excess calories E66.01 Active 111832425 Problem Non morbid obesity E66.9 Active 139835778 Problem Panlobular emphysema J43.1 Active 9764079 Problem Other obesity due to excess calories E66.09 Active 208936723 Problem COPD with acute exacerbation J44.1 Active 115670700 ALLERGIES No Information ENCOUNTERS Encounter Location Date Diagnosis [facility] [address] [facility] [id number], [place] [address] 09 Jan, 2019 [facility] [address] [id number] [address] 30 Aug, 2018 Wheezes R06.2 and Pneumonia J18.9 [facility] [address] [id number], [place] [address] 13 Aug, 2018 Erectile dysfunction, unspecified erectile dysfunction type N52.9 [place] [address], [place] [address] Aug, Non morbid obesity E66.9 [facility] [id number] [place] [address] Jul, [facility] [id number] [place] [address] Jul, Testicular swelling, right N50.89 [place] [address] [address] Jul, Callus L84 [place] [id number] [place] [address] Jun, Non morbid obesity E66.9 ; COPD exacerbation J44.1 ; 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 and Dermatofibroma D23.9 [place] [id number] [place] [address] May, Non morbid obesity E66.9 and Grade II hemorrhoids K64.1 [place] [id number] [place] [address] Mar, [place] [id number] [place] [address] 04 Mar, 2018 Cough 786.2 ; Medicare annual wellness visit, initial Z00.00 ; Morbid obesity due to excess calories E66.01 ; Chronic obstructive pulmonary disease, unspecified COPD type J44.9 ; Coronary artery disease involving [place] heart, angina presence unspecified, unspecified vessel or lesion type I25.10 ; Hypertension, benign I10 and LAURY (obstructive sleep apnea) G47.33 [place] [id number] [place] [address] February, Medicare annual wellness visit, initial Z00.00 ; Morbid obesity due to excess calories E66.01 ; Chronic obstructive pulmonary disease, unspecified COPD type J44.9 ; Coronary artery disease involving [place] heart, angina presence unspecified, unspecified vessel or lesion type I25.10 ; Hypertension, benign I10 ; LAURY (obstructive sleep apnea) G47.33 ; Family history of colon cancer Z80.0 ; Other chronic pain G89.29 and Pain in right hip M25.551 [place] [address] [address] Jan, [place] [id number] [place] [address] Nov, Panlobular emphysema J43.1 [place] [address] [address] Nov, COPD exacerbation J44.[address] [address] Nov, Viral URI J06.9 [place] [address] [address] Nov, [place] [address] [address] Nov, [place] [address] [address] Sep, Other obesity due to excess calories E66.09 and Body mass index (BMI) of 36.0-36.9 in adult Z68.36 [place] [id number] [place] [address] Aug, [place] [address] [address] Aug, [place] [id number] [place] [address] Aug, Coronary artery disease involving [place] heart, angina presence unspecified, unspecified vessel or lesion type I25.10 and Chronic obstructive pulmonary disease, unspecified COPD type J44.9 [facility] [id number] [place] [address] Jul, COPD with acute exacerbation J44.1 [place] [id number] [place] [address] Jul, Non morbid obesity E66.9 [place] [address] [address] Jun, Panlobular emphysema J43.1 ; Tobacco abuse Z72.0 ; Tobacco abuse counseling Z71.6 and Non morbid obesity E66.9 [place] [address] [address] Apr, [place] [address] [address] Apr, [place] [address] [address] Mar, COPD exacerbation J44.1 [place] [address] [address] Mar, Tear of medial meniscus of right knee, current, unspecified tear type, initial encounter S83.241A [place] [address] [address] Mar, Pain in right knee M25.561 [facility] [id number] [place] [address] February, Pain in right knee M25.561 [place] [id number] [place] [address] February, Pain in right knee M25.561 [place] [id number] [place] [address] Dec, [place] [address] [address] Nov, [facility] [id number] [place] [address] Nov, Bronchitis J40 and Wheezing R06.2 [place] [address] [address] Oct, [place] [id number] [place] [address] Oct, [place] [id number] [place] [address] Oct, Non morbid obesity due to excess calories E66.09 ; Other chronic pain G89.29 and Pain in right knee M25.561 [place] [id number] [place] [address] Oct, Non morbid obesity due to excess calories E66.09 ; Other chronic pain G89.29 and Pain in right knee M25.561 [place] [id number] [place] [address] Oct, Pain in right knee M25.561 and Other chronic pain G89.29 [place] [address] [address] Aug, Encounter for immunization Z23 [place] [id number] [place] [address] Aug, [place] [id number] [place] [address] Aug, [place] [id number] [place] [address] Jun, Common wart B07.8 [facility] [place] [id number] [place] [address] May, Cellulitis of left elbow L03.114 [place] [id number] [place] [address] Mar, Torticollis, acute M43.6 and Leg pain, left M79.605 [place] [id number] [place] [address] February, Leg pain, left M79.605 [facility] [address] [address] Dec, COPD exacerbation J44.1 [facility] [address] [address] Dec, [facility] [address] [address] Oct, Chronic obstructive pulmonary disease, unspecified COPD type J44.9 and Hyperglycemia R73.9 [facility] [address] [address] Sep, Tobacco abuse Z72.0 ; Coronary artery disease involving [place] heart, angina presence unspecified, unspecified vessel or lesion type I25.10 and Morbid obesity due to excess calories E66.01 [place] [address] [address] Sep, [place] [address] [address] Sep, Leg pain, left M79.605 [place] [address] [address] Sep, [place] [address] [address] Sep, [place] [address] [address] Aug, Essential (primary) hypertension I10 [place] [address] [address] Aug, Encounter for immunization Z23 [place] [address] [address] Aug, [place] [address] [address] May, Chronic airway obstruction, not elsewhere classified [address] [place] [address] [address] May, [facility] [address], [place] [address] May, [facility] [id number] [place] [address] May, Acute bronchitis 466.0 [facility] [id number] [place] [address] May, [facility] [id number] [place] [address] May, Hyperglycemia 790.29 [facility] [id number] [place] [address] Apr, [facility] [id number] [place] [address] Apr, Cough 786.2 ; Hyperglycemia 790.29 and COPD (chronic obstructive pulmonary disease) 496 [facility] [id number] [place] [address] Mar, Cough 786.2 ; Elevated glucose 790.29 ; Wheezing 786.07 ; COPD exacerbation 491.21 and Nicotine dependence 305.1 [facility] [id number] [place] [address] Mar, High risk medication use V58.69 [facility] [id number] [place] [address] Mar, High risk medication use V58.69 and Benign hypertension 401.1 [facility] [address] [place] [address] Mar, [facility] [id number] [place] [address] February, [facility] [id number] [place] [address] February, [facility] [address] [place] [address] Jan, [place] [address] [id number] [place] [address] 30 Jan, 2015 Benign hypertension 401.1 [facility] [place] [facility] [address] [id number] [place] [address] 14 Jan, 2015 [facility] [place] [facility] [address] [id number] [place] [address] 13 Jan, 2015 [facility] [place] [facility] [address] [id number] [place] [address] 27 Dec, 2014 [facility] [place] [facility] [address] [id number] [place] [address] 27 Dec, 2014 [facility] [place] [facility] [address] [id number] [place] [address] 26 Dec, 2014 [facility] [place] [facility] [address] [id number] [place] [address] 18 Dec, 2014 [facility] [place] [facility] [address] [id number] [place] [address] 18 Dec, 2014 [facility] [place] [facility] [address] [id number] [place] [address] 2014 [facility] [place] [facility] [address] [id number] [place] [address] 2014 [facility] [place] [facility] [address] [id number] [place] [address] 13 Dec, 2014 [facility] [place] [facility] [address] [id number], [place] [address] 13 Dec, 2014 [facility] [place] [facility] [address] [id number] [place] [address] 06 Dec, 2014 [facility] [place] [facility] [address] [id number] [place] [address] 06 Dec, 2014 [facility] [place] [facility] [address] [facility] [id number], [place] [address] 05 Dec, 2014 [facility] [place] [facility] [address] [id number], [place] [address] Dec, [facility] [place] [facility] [address] [id number] [place] [address] Dec, [facility] [place] [facility] [address] [id number] [place] [address] Dec, [facility] [place] [facility] [address] [id number] [place] [address] Nov, [facility] [place] [facility] [address] [id number] [place] [address] Nov, [facility] [place] [facility] [address] [id number] [place] [address] Nov, [facility] [place] [facility] [address] [id number] [place] [address] Nov, [facility] [place] [facility] [address] [id number] [place] [address] Oct, [facility] [place] [facility] [address] [id number] [place] [address] Oct, [facility] [place] [facility] [address] [id number] [place] [address] Oct, [facility] [place] [facility] [address] [id number] [place] [address] Oct, [facility] [place] [facility] [address] [id number] [place] [address] Oct, [facility] [place] [facility] [address] [id number], [place] [address] Oct, [facility] [place] [facility] [address] [id number] [place] [address] Oct, [facility] [place] [facility] [address] [id number] [place] [address] Oct, [facility] [place] [facility] [address] [id number], [place] [address] Sep, [facility] [place] [facility] [address] [id number] [place] [address] Sep, [facility] [place] [facility] [address] [id number] [place] [address] Sep, [facility] [place] [facility] [address] [id number] [place] [address] Sep, [facility] [place] [facility] [address] [id number] [place] [address] Sep, [facility] [place] [facility] [address] [id number] [place] [address] Sep, [facility] [place] [facility] [address] [id number] [place] [address] Sep, [facility] [place] [facility] [address] [id number] [place] [address] Sep, [facility] [place] [facility] [address] [id number] [place] [address] Aug, [facility] [place] [facility] [address] [id number] [place] [address] Aug, [facility] [place] [facility] [address] [id number] [place] [address] Aug, [facility] [place] [facility] [address] [id number] [place] [address] Aug, [facility] [place] [facility] [address] [id number] [place] [address] Jul, [facility] [place] [facility] [address] [id number] [place] [address] Jul, [facility] [place] [facility] [address] [id number] [place] [address] Jul, [facility] [place] [facility] [address] [id number] [place] [address] Jul, [facility] [place] [facility] [address] [id number], [place] [address] Jul, [facility] [place] [facility] [address] [id number] [place] [address] Jul, [facility] [place] [facility] [address] [id number] [place] [address] Jul, [facility] [place] [facility] [address] [id number] [place] [address] Jul, [facility] [place] [facility] [address] [id number] [place] [address] Jul, [facility] [place] [facility] [address] [id number] [place] [address] Jul, [facility] [place] [facility] [address] [id number] [place] [address] Jul, [facility] [place] [facility] [address] [id number] [place] [address] Jul, [facility] [place] [facility] [address] [id number], [place] [address] Jul, [facility] [place] [facility] [address] [id number] [place] [address] Jul, [facility] [place] [facility] [address] [id number], [place] [address] Jul, [facility] [place] [facility] [address] [id number], [place] [address] Jul, [facility] [place] [facility] [address] [id number], [place] [address] Jul, [facility] [place] [facility] [address] [id number] [place] [address] Jul, [facility] [place] [facility] [address] [id number], [place] [address] Jul, [facility] [place] [facility] [address] [id number], [place] [address] Jul, [facility] [place] [facility] [address] [id number] [place] [address] Jul, [facility] [place] [facility] [address] [id number] [place] [address] Jul, [facility] [place] [facility] [address] [id number] [place] [address] 29 Jun, 2013 [facility] [place] [facility] [address] [id number] [place] [address] 29 Jun, 2013 [facility] [place] [facility] [address] [id number] [place] [address] Jun, 2013 [facility] [place] [facility] [address] [id number] [place] [address] Jun, 2013 [facility] [place] [facility] [address] [id number] [place] [address] 05 Jun, 2013 [facility] [place] [facility] [address] [id number] [place] [address] 05 Jun, 2013 [facility] [place] [facility] [address] [id number] [place] [address] Jun, 2013 [facility] [place] [facility] [address] [id number] [place] [address] Jun, 2013 [facility] [place] [facility] [address] [id number] [place] [address] Jun, 2013 [facility] [place] [facility] [address] [id number] [place] [address] Jun, 2013 [facility] [place] [facility] [address] [id number] [place] [address] May, [facility] [place] [facility] [address] [id number] [place] [address] May, [facility] [place] [facility] [address] [id number] [place] [address] May, [facility] [place] [facility] [address] [id number] [place] [address] May, [facility] [place] [facility] [address] [id number] [place] [address] May, [facility] [place] [facility] [address] [id number] [place] [address] May, [facility] [place] [facility] [address] [id number] [place] [address] May, [facility] [place] [facility] [address] [id number] [place] [address] May, [facility] [place] [facility] [address] [id number] [place] [address] Apr, [facility] [place] [facility] [address] [id number] [place] [address] Apr, [facility] [place] [facility] [address] [id number] [place] [address] Apr, [facility] [place] [facility] [address] [id number] [place] [address] Apr, [facility] [place] [facility] [address] [id number] [place] [address] Apr, [facility] [place] [facility] [address] [id number] [place] [address] Apr, [facility] [place] [facility] [address] [id number] [place] [address] Mar, [facility] [place] [facility] [address] [id number] [place] [address] Mar, [facility] [place] [facility] [address] [id number] [place] [address] Mar, [facility] [place] [facility] [address] [id number] [place] [address] Mar, [facility] [place] [facility] [address] [id number] [place] [address] Mar, [facility] [place] [facility] [address] [id number], [place] [address] Mar, [facility] [place] [facility] [address] [id number] [place] [address] Mar, [facility] [place] [facility] [address] [id number] [place] [address] Mar, [facility] [place] [facility] [address] [id number] [place] [address] February, [facility] [place] [facility] [address] [id number] [place] [address] February, [facility] [place] [facility] [address] [id number] [place] [address] February, [facility] [place] [facility] [address] [id number] [place] [address] February, [facility] [place] [facility] [address] [facility] [id number] [place] [address] February, [facility] [place] [facility] [address] [facility] [id number] [place] [address] Jan, [facility] [place] [facility] [address] [facility] [id number] [place] [address] Jan, [facility] [place] [facility] [address] [facility] [id number] [place] [address] Nov, [facility] [place] [facility] [address] [id number] [place] [address] Nov, [facility] [place] [facility] [address] [facility] [id number] [place] [address] Nov, [facility] [place] [facility] [address] [id number] [place] [address] Nov, [facility] [place] [facility] [address] [id number] [place] [address] Nov, [facility] [place] [facility] [address] [id number] [place] [address] Nov, [facility] [place] [facility] [address] [id number] [place] [address] Oct, [facility] [place] [facility] [address] [id number] [place] [address] Oct, [facility] [place] [facility] [address] [id number] [place] [address] Oct, [facility] [place] [facility] [address] [id number] [place] [address] Sep, [facility] [address] [id number] [place] [address] Sep, [facility] [place] [facility] [address] [id number] [place] [address] Aug, [facility] [address] [id number] [place] [address] Aug, [facility] [address] [id number] [place] [address] Aug, [facility] [place] [facility] [address] [id number] [place] [address] Aug, [facility] [place] [facility] [address] [id number] [place] [address] Jul, [facility] [place] [facility] [address] [id number] [place] [address] Jul, [facility] [place] [facility] [address] [id number], [place] [address] Jul, [facility] [place] [facility] [address] [id number] [place] [address] Jul, [facility] [place] [facility] [address] [id number] [place] [address] Jul, [facility] [place] [facility] [address] [id number], [place] [address] Jun, [facility] [place] [facility] [address] [id number], [place] [address] Jun, [facility] [place] [facility] [address] [id number] [place] [address] May, [facility] [place] [facility] [address] [id number] [place] [address] May, [facility] [place] [facility] [address] [id number] [place] [address] May, [facility] [place] [facility] [address] [id number] [place] [address] May, [facility] [place] [facility] [address] [id number] [place] [address] May, [facility] [place] [facility] [address] [id number] [place] [address] May, [facility] [place] [facility] [address] [id number] [place] [address] Apr, [facility] [place] [facility] [address] [id number] [place] [address] Apr, [facility] [place] [facility] [address] [id number] [place] [address] Apr, [facility] [place] [facility] [address] [id number] [place] [address] Apr, [facility] [place] [facility] [address] [id number] [place] [address] Apr, [facility] [place] [facility] [address] [id number] [place] [address] Mar, [facility] [place] [facility] [address] [id number] [place] [address] Mar, [facility] [place] [facility] [address] [id number] [place] [address] Mar, [facility] [place] [facility] [address] [id number] [place] [address] February, [facility] [place] [facility] [address] [id number] [place] [address] February, [facility] [address] [id number] [place] [address] February, [facility] [address] [id number] [place] [address] Dec, [facility] [address] [id number] [place] [address] Dec, [facility] [address] [id number] [place] [address] Dec, [facility] [address] [id number] [place] [address] Oct, [facility] [address] [id number] [place] [address] Oct, [facility] [address] [id number] [place] [address] Sep, [facility] [facility] [address] [id number] [place] [address] Sep, [facility] [address] [id number] [place] [address] Aug, [facility] [address] [id number] [place] [address] Aug, [facility] [address] [id number] [place] [address] Aug, [facility] [address] [id number] [place] [address] Aug, [facility] [place] [facility] [address] [id number] [place] [address] Aug, [facility] [address] [id number] [place] [address] Aug, [facility] [address] [id number] [place] [address] Jul, [facility] [address] [id number] [address] Jul, [facility] [address] [facility] [id number], [place] [address] Jul, [facility] [id number] [address] Jul, [facility] [address] [facility] [id number], [place] [address] Jul, [facility] [id number] [address] Jul, [facility] [id number] [place] [id number] Jun, [facility] [id number], [place] [address] Jun, [facility] [id number] [address] Jun, [facility] [address] [id number], [place] [address] Jun, IMMUNIZATIONS No Known Immunizations SOCIAL HISTORY Never Assessed REASON FOR VISIT [facility] PLAN OF CARE VITAL SIGNS MEDICATIONS [...] infection Aug 26 Hospitalization History [facility] Flu Sx 12/10/2016 Hospitalization History [facility] Congestion, runny nose and abd pain 12/21/2017
--- OUTSIDE RECORDS SUMMARY | 2019-03-19 07:24 | XMS REPORT ---
Author Author Migration, Doctor Organization [facility] Address Unknown Phone Unavailable Care Team Providers Care Brine Maker Name Role Phone Migration, Doctor Unavailable Unavailable PROBLEMS Type Condition ICD9-CM Code BUU84-UX Code Onset Dates Condition Status SNOMED Code Problem Edema, due to unspecified malnutrition type, unspecified type R60.9 Active 197017088 Problem Chronic obstructive pulmonary disease, unspecified COPD type J44.9 Active 03333232 Problem Coronary artery disease involving st[place] heart, angina presence unspecified, unspecified vessel or lesion type I25.10 Active 11252448 Problem Hypertension, benign I10 Active 62804127 Problem LAURY (obstructive sleep apnea) G47.33 Active 14675746 Problem Palpitations R00.2 Active 09986104 Problem Other chronic pain G89.29 Active 17148698 Problem Non morbid obesity due to excess calories E66.09 Active 445413743 Problem COPD exacerbation J44.1 Active 628066355 Problem Tobacco abuse Z72.0 Active 01204804 Problem Erectile dysfunction, unspecified erectile dysfunction type N52.9 Active 971796820 Problem Morbid obesity due to excess calories E66.01 Active 182469559 Problem Non morbid obesity E66.9 Active 087097292 Problem Panlobular emphysema J43.1 Active 7840249 Problem Other obesity due to excess calories E66.09 Active 413584146 Problem COPD with acute exacerbation J44.1 Active 027826502 ALLERGIES No Information ENCOUNTERS Encounter Location Date Diagnosis [facility] [address] [facility] [id number] [address] 09 Jan, 2019 [facility] [address] [id number] [address] 30 Aug, 2018 Wheezes R06.2 and Pneumonia J18.9 [facility] [address] [id number], [place] [address] 13 Aug, 2018 Erectile dysfunction, unspecified erectile dysfunction type N52.9 [place] [address], [place] [address] Aug, Non morbid obesity E66.9 [facility] [id number] [place] [address] Jul, [facility] [id number] [place] [address] Jul, Testicular swelling, right N50.89 [place] [address] [address] Jul, Callus L84 [place] [id number] [place] [address] Jun, Non morbid obesity E66.9 ; COPD exacerbation J44.1 ; 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 and Dermatofibroma D23.9 [place] [id number] [place] [address] May, Non morbid obesity E66.9 and Grade II hemorrhoids K64.1 [place] [id number] [place] [address] Mar, [place] [id number] [place] [address] 04 Mar, 2018 Cough 786.2 ; Medicare annual wellness visit, initial Z00.00 ; Morbid obesity due to excess calories E66.01 ; Chronic obstructive pulmonary disease, unspecified COPD type J44.9 ; Coronary artery disease involving st[place] river heart, angina presence unspecified, unspecified vessel or lesion type I25.10 ; Hypertension, benign I10 and LAURY (obstructive sleep apnea) G47.33 [place] [id number] [place] [address] February, Medicare annual wellness visit, initial Z00.00 ; Morbid obesity due to excess calories E66.01 ; Chronic obstructive pulmonary disease, unspecified COPD type J44.9 ; Coronary artery disease involving st[place] river heart, angina presence unspecified, unspecified vessel or lesion type I25.10 ; Hypertension, benign I10 ; LAURY (obstructive sleep apnea) G47.33 ; Family history of colon cancer Z80.0 ; Other chronic pain G89.29 and Pain in right hip M25.551 [place] [address] [address] Jan, [place] [id number] [place] [address] Nov, Panlobular emphysema J43.1 [place] [address] [address] Nov, COPD exacerbation J44.[address] [address] Nov, Viral URI J06.9 [place] [address] [address] Nov, [place] [address] [address] Nov, [place] [address] [address] Sep, Other obesity due to excess calories E66.09 and Body mass index (BMI) of 36.0-36.9 in adult Z68.36 [place] [id number] [place] [address] Aug, [place] [address] [address] Aug, [place] [id number] [place] [address] Aug, Coronary artery disease involving st[place] river heart, angina presence unspecified, unspecified vessel or lesion type I25.10 and Chronic obstructive pulmonary disease, unspecified COPD type J44.9 [facility] [id number] [place] [address] Jul, COPD with acute exacerbation J44.1 [place] [id number] [place] [address] Jul, Non morbid obesity E66.9 [place] [address] [address] Jun, Panlobular emphysema J43.1 ; Tobacco abuse Z72.0 ; Tobacco abuse counseling Z71.6 and Non morbid obesity E66.9 [place] [address] [address] Apr, [place] [address] [address] Apr, [place] [address] [address] Mar, COPD exacerbation J44.1 [place] [address] [address] Mar, Tear of medial meniscus of right knee, current, unspecified tear type, initial encounter S83.241A [place] [address] [address] Mar, Pain in right knee M25.561 [facility] [id number] [place] [address] February, Pain in right knee M25.561 [place] [id number] [place] [address] February, Pain in right knee M25.561 [place] [id number] [place] [address] Dec, [place] [address] [address] Nov, [facility] [id number] [place] [address] Nov, Bronchitis J40 and Wheezing R06.2 [place] [address] [address] Oct, [place] [id number] [place] [address] Oct, [place] [id number] [place] [address] Oct, Non morbid obesity due to excess calories E66.09 ; Other chronic pain G89.29 and Pain in right knee M25.561 [place] [id number] [place] [address] Oct, Non morbid obesity due to excess calories E66.09 ; Other chronic pain G89.29 and Pain in right knee M25.561 [place] [id number] [place] [address] Oct, Pain in right knee M25.561 and Other chronic pain G89.29 [place] [address] [address] Aug, Encounter for immunization Z23 [place] [id number] [place] [address] Aug, [place] [id number] [place] [address] Aug, [place] [id number] [place] [address] Jun, Common wart B07.8 [facility] [place] [id number] [place] [address] May, Cellulitis of left elbow L03.114 [place] [id number] [place] [address] Mar, Torticollis, acute M43.6 and Leg pain, left M79.605 [place] [id number] [place] [address] February, Leg pain, left M79.605 [facility] [address] [address] Dec, COPD exacerbation J44.1 [facility] [address] [address] Dec, [facility] [address] [address] Oct, Chronic obstructive pulmonary disease, unspecified COPD type J44.9 and Hyperglycemia R73.9 [facility] [address] [address] Sep, Tobacco abuse Z72.0 ; Coronary artery disease involving st[place] river heart, angina presence unspecified, unspecified vessel or lesion type I25.10 and Morbid obesity due to excess calories E66.01 [place] [address] [address] Sep, [place] [address] [address] Sep, Leg pain, left M79.605 [place] [address] [address] Sep, [place] [address] [address] Sep, [place] [address] [address] Aug, Essential (primary) hypertension I10 [place] [address] [address] Aug, Encounter for immunization Z23 [place] [address] [address] Aug, [place] [address] [address] May, Chronic airway obstruction, not elsewhere classified 496 [place] [address] [address] May, [facility] [address], [place] [address] May, [facility] [id number] [place] [address] May, Acute bronchitis 466.0 [facility] [id number] [place] [address] May, [facility] [id number] [place] [address] May, Hyperglycemia 790.29 [facility] [id number] [place] [address] Apr, [facility] [id number] [place] [address] Apr, Cough 786.2 ; Hyperglycemia 790.29 and COPD (chronic obstructive pulmonary disease) 496 [facility] [id number] [place] [address] Mar, Cough 786.2 ; Elevated glucose 790.29 ; Wheezing 786.07 ; COPD exacerbation 491.21 and Nicotine dependence 305.1 [facility] [id number] [place] [address] Mar, High risk medication use V58.69 [facility] [id number] [place] [address] Mar, High risk medication use V58.69 and Benign hypertension 401.1 [facility] [address] [place] [address] Mar, [facility] [id number] [place] [address] February, [facility] [id number] [place] [address] February, [facility] [address] [place] [address] Jan, [place] [address] [id number] [place] [address] 30 Jan, 2015 Benign hypertension 401.1 [facility] [place] [facility] [address] [id number] [place] [address] 14 Jan, 2015 [facility] [place] [facility] [address] [id number] [place] [address] 13 Jan, 2015 [facility] [place] [facility] [address] [id number] [place] [address] 27 Dec, 2014 [facility] [place] [facility] [address] [id number] [place] [address] 27 Dec, 2014 [facility] [place] [facility] [address] [id number] [place] [address] 26 Dec, 2014 [facility] [place] [facility] [address] [id number] [place] [address] 18 Dec, 2014 [facility] [place] [facility] [address] [id number] [place] [address] 18 Dec, 2014 [facility] [place] [facility] [address] [id number] [place] [address] 2014 [facility] [place] [facility] [address] [id number] [place] [address] 2014 [facility] [place] [facility] [address] [id number] [place] [address] 13 Dec, 2014 [facility] [place] [facility] [address] [id number], [place] [address] 13 Dec, 2014 [facility] [place] [facility] [address] [id number] [place] [address] 06 Dec, 2014 [facility] [place] [facility] [address] [id number] [place] [address] 06 Dec, 2014 [facility] [place] [facility] [address] [facility] [id number], [place] [address] 05 Dec, 2014 [facility] [place] [facility] [address] [id number], [place] [address] Dec, [facility] [place] [facility] [address] [id number] [place] [address] Dec, [facility] [place] [facility] [address] [id number] [place] [address] Dec, [facility] [place] [facility] [address] [id number] [place] [address] Nov, [facility] [place] [facility] [address] [id number] [place] [address] Nov, [facility] [place] [facility] [address] [id number] [place] [address] Nov, [facility] [place] [facility] [address] [id number] [place] [address] Nov, [facility] [place] [facility] [address] [id number] [place] [address] Oct, [facility] [place] [facility] [address] [id number] [place] [address] Oct, [facility] [place] [facility] [address] [id number] [place] [address] Oct, [facility] [place] [facility] [address] [id number] [place] [address] Oct, [facility] [place] [facility] [address] [id number] [place] [address] Oct, [facility] [place] [facility] [address] [id number], [place] [address] Oct, [facility] [place] [facility] [address] [id number] [place] [address] Oct, [facility] [place] [facility] [address] [id number] [place] [address] Oct, [facility] [place] [facility] [address] [id number], [place] [address] Sep, [facility] [place] [facility] [address] [id number] [place] [address] Sep, [facility] [place] [facility] [address] [id number] [place] [address] Sep, [facility] [place] [facility] [address] [id number] [place] [address] Sep, [facility] [place] [facility] [address] [id number] [place] [address] Sep, [facility] [place] [facility] [address] [id number] [place] [address] Sep, [facility] [place] [facility] [address] [id number] [place] [address] Sep, [facility] [place] [facility] [address] [id number] [place] [address] Sep, [facility] [place] [facility] [address] [id number] [place] [address] Aug, [facility] [place] [facility] [address] [id number] [place] [address] Aug, [facility] [place] [facility] [address] [id number] [place] [address] Aug, [facility] [place] [facility] [address] [id number] [place] [address] Aug, [facility] [place] [facility] [address] [id number] [place] [address] Jul, [facility] [place] [facility] [address] [id number] [place] [address] Jul, [facility] [place] [facility] [address] [id number] [place] [address] Jul, [facility] [place] [facility] [address] [id number] [place] [address] Jul, [facility] [place] [facility] [address] [id number], [place] [address] Jul, [facility] [place] [facility] [address] [id number] [place] [address] Jul, [facility] [place] [facility] [address] [id number] [place] [address] Jul, [facility] [place] [facility] [address] [id number] [place] [address] Jul, [facility] [place] [facility] [address] [id number] [place] [address] Jul, [facility] [place] [facility] [address] [id number] [place] [address] Jul, [facility] [place] [facility] [address] [id number] [place] [address] Jul, [facility] [place] [facility] [address] [id number] [place] [address] Jul, [facility] [place] [facility] [address] [id number], [place] [address] Jul, [facility] [place] [facility] [address] [id number] [place] [address] Jul, [facility] [place] [facility] [address] [id number], [place] [address] Jul, [facility] [place] [facility] [address] [id number], [place] [address] Jul, [facility] [place] [facility] [address] [id number], [place] [address] Jul, [facility] [place] [facility] [address] [id number] [place] [address] Jul, [facility] [place] [facility] [address] [id number], [place] [address] Jul, [facility] [place] [facility] [address] [id number], [place] [address] Jul, [facility] [place] [facility] [address] [id number] [place] [address] Jul, [facility] [place] [facility] [address] [id number] [place] [address] Jul, [facility] [place] [facility] [address] [id number] [place] [address] 29 Jun, 2013 [facility] [place] [facility] [address] [id number] [place] [address] 29 Jun, 2013 [facility] [place] [facility] [address] [id number] [place] [address] Jun, 2013 [facility] [place] [facility] [address] [id number] [place] [address] Jun, 2013 [facility] [place] [facility] [address] [id number] [place] [address] 05 Jun, 2013 [facility] [place] [facility] [address] [id number] [place] [address] 05 Jun, 2013 [facility] [place] [facility] [address] [id number] [place] [address] Jun, 2013 [facility] [place] [facility] [address] [id number] [place] [address] Jun, 2013 [facility] [place] [facility] [address] [id number] [place] [address] Jun, 2013 [facility] [place] [facility] [address] [id number] [place] [address] Jun, 2013 [facility] [place] [facility] [address] [id number] [place] [address] May, [facility] [place] [facility] [address] [id number] [place] [address] May, [facility] [place] [facility] [address] [id number] [place] [address] May, [facility] [place] [facility] [address] [id number] [place] [address] May, [facility] [place] [facility] [address] [id number] [place] [address] May, [facility] [place] [facility] [address] [id number] [place] [address] May, [facility] [place] [facility] [address] [id number] [place] [address] May, [facility] [place] [facility] [address] [id number] [place] [address] May, [facility] [place] [facility] [address] [id number] [place] [address] Apr, [facility] [place] [facility] [address] [id number] [place] [address] Apr, [facility] [place] [facility] [address] [id number] [place] [address] Apr, [facility] [place] [facility] [address] [id number] [place] [address] Apr, [facility] [place] [facility] [address] [id number] [place] [address] Apr, [facility] [place] [facility] [address] [id number] [place] [address] Apr, [facility] [place] [facility] [address] [id number] [place] [address] Mar, [facility] [place] [facility] [address] [id number] [place] [address] Mar, [facility] [place] [facility] [address] [id number] [place] [address] Mar, [facility] [place] [facility] [address] [id number] [place] [address] Mar, [facility] [place] [facility] [address] [id number] [place] [address] Mar, [facility] [place] [facility] [address] [id number], [place] [address] Mar, [facility] [place] [facility] [address] [id number] [place] [address] Mar, [facility] [place] [facility] [address] [id number] [place] [address] Mar, [facility] [place] [facility] [address] [id number] [place] [address] February, [facility] [place] [facility] [address] [id number] [place] [address] February, [facility] [place] [facility] [address] [id number] [place] [address] February, [facility] [place] [facility] [address] [id number] [place] [address] February, [facility] [place] [facility] [address] [facility] [id number] [place] [address] February, [facility] [place] [facility] [address] [facility] [id number] [place] [address] Jan, [facility] [place] [facility] [address] [facility] [id number] [place] [address] Jan, [facility] [place] [facility] [address] [facility] [id number] [place] [address] Nov, [facility] [place] [facility] [address] [id number] [place] [address] Nov, [facility] [place] [facility] [address] [facility] [id number] [place] [address] Nov, [facility] [place] [facility] [address] [id number] [place] [address] Nov, [facility] [place] [facility] [address] [id number] [place] [address] Nov, [facility] [place] [facility] [address] [id number] [place] [address] Nov, [facility] [place] [facility] [address] [id number] [place] [address] Oct, [facility] [place] [facility] [address] [id number] [place] [address] Oct, [facility] [place] [facility] [address] [id number] [place] [address] Oct, [facility] [place] [facility] [address] [id number] [place] [address] Sep, [facility] [address] [id number] [place] [address] Sep, [facility] [place] [facility] [address] [id number] [place] [address] Aug, [facility] [address] [id number] [place] [address] Aug, [facility] [address] [id number] [place] [address] Aug, [facility] [place] [facility] [address] [id number] [place] [address] Aug, [facility] [place] [facility] [address] [id number] [place] [address] Jul, [facility] [place] [facility] [address] [id number] [place] [address] Jul, [facility] [place] [facility] [address] [id number], [place] [address] Jul, [facility] [place] [facility] [address] [id number] [place] [address] Jul, [facility] [place] [facility] [address] [id number] [place] [address] Jul, [facility] [place] [facility] [address] [id number], [place] [address] Jun, [facility] [place] [facility] [address] [id number], [place] [address] Jun, [facility] [place] [facility] [address] [id number] [place] [address] May, [facility] [place] [facility] [address] [id number] [place] [address] May, [facility] [place] [facility] [address] [id number] [place] [address] May, [facility] [place] [facility] [address] [id number] [place] [address] May, [facility] [place] [facility] [address] [id number] [place] [address] May, [facility] [place] [facility] [address] [id number] [place] [address] May, [facility] [place] [facility] [address] [id number] [place] [address] Apr, [facility] [place] [facility] [address] [id number] [place] [address] Apr, [facility] [place] [facility] [address] [id number] [place] [address] Apr, [facility] [place] [facility] [address] [id number] [place] [address] Apr, [facility] [place] [facility] [address] [id number] [place] [address] Apr, [facility] [place] [facility] [address] [id number] [place] [address] Mar, [facility] [place] [facility] [address] [id number] [place] [address] Mar, [facility] [place] [facility] [address] [id number] [place] [address] Mar, [facility] [place] [facility] [address] [id number] [place] [address] February, [facility] [place] [facility] [address] [id number] [place] [address] February, [facility] [address] [id number] [place] [address] February, [facility] [address] [id number] [place] [address] Dec, [facility] [address] [id number] [place] [address] Dec, [facility] [address] [id number] [place] [address] Dec, [facility] [address] [id number] [place] [address] Oct, [facility] [address] [id number] [place] [address] Oct, [facility] [address] [id number] [place] [address] Sep, [facility] [address] [id number] [place] [address] Sep, [facility] [address] [id number] [place] [address] Aug, [facility] [facility] [address] [id number] [place] [address] Aug, [facility] [address] [id number] [place] [address] Aug, [facility] [address] [id number] [place] [address] Aug, [facility] [place] [facility] [address] [id number] [place] [address] Aug, [facility] [address] [id number] [place] [address] Aug, [facility] [address] [id number] [place] [address] Jul, [facility] [address] [id number] [address] Jul, [facility] [address] [facility] [id number] [address] Jul, [facility] [id number] [address] Jul, [facility] [address] [facility] [id number] [address] Jul, [facility] [id number] [address] Jul, [facility] [id number] [place] [address] Jun, [facility] [id number], [place] [address] Jun, [facility] [id number] [address] Jun, [facility] [address] [id number] [address] Jun, IMMUNIZATIONS No Known Immunizations SOCIAL HISTORY Never Assessed REASON FOR VISIT [facility] PLAN OF CARE VITAL SIGNS MEDICATIONS Unknown [...] infection Aug 26 Hospitalization History [facility] [place]- Flu Sx 12/10/2016 Hospitalization History [facility] [place]- Congestion, runny nose and abd pain 12/21/2017
--- OUTSIDE RECORDS SUMMARY | 2019-03-19 07:24 | XMS REPORT ---
Author Author MARTA MARSH [facility] Address [address] [place] [address] Care Team Providers Care Echo [employer] Tech Name Role Phone MARTA MARSH Unavailable PROBLEMS Type Condition ICD9-CM Code RDN27-NN Code Onset Dates Condition Status SNOMED Code Problem Palpitations R00.2 Active 62392581 Problem Non morbid obesity due to excess calories E66.09 Active 958383866 Problem Other chronic pain G89.29 Active 03190810 Problem Erectile dysfunction, unspecified erectile dysfunction type N52.9 Active 992492025 Problem COPD exacerbation J44.1 Active 423905030 Problem Panlobular emphysema J43.1 Active 3599730 Problem Non morbid obesity E66.9 Active 792623273 Problem COPD with acute exacerbation J44.1 Active 758042968 Problem Other obesity due to excess calories E66.09 Active 131766576 Problem Edema, due to unspecified malnutrition type, unspecified type R60.9 Active 266925469 Problem LAURY (obstructive sleep apnea) G47.33 Active 01897537 Problem Hypertension, benign I10 Active 97037015 Problem Coronary artery disease involving zuni heart, angina presence unspecified, unspecified vessel or lesion type I25.10 Active 58646373 Problem Morbid obesity due to excess calories E66.01 Active 388362739 Problem Chronic obstructive pulmonary disease, unspecified COPD type J44.9 Active 56689354 Problem Tobacco abuse Z72.0 Active 60967020 ALLERGIES Substance Reaction Event Type Date Status Diclofenac Unknown Drug Allergy Aug, Active ENCOUNTERS Encounter Location Date Diagnosis [facility] [address] [facility] [id number], [place] [address] Aug, Wheezes R06.2 and Pneumonia J18.9 [facility] [address] [facility] [id number], [place] [address] Aug, Erectile dysfunction, unspecified erectile dysfunction type N52.9 [place] [id number] [place] [address] Aug, Non morbid obesity E66.9 [facility] [id number] [place] [address] Jul, [facility] [id number] [place] [address] Jul, Testicular swelling, right N50.89 [place] [id number] [place] [address] Jul, Callus L84 [place] [address] [address] Jun, Non morbid obesity E66.9 ; COPD exacerbation J44.1 ; 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 and Dermatofibroma D23.9 [place] [id number] [place] [address] May, Non morbid obesity E66.9 and Grade II hemorrhoids K64.1 [place] [id number] [place] [address] Mar, [place] [id number] [place] [address] Mar, Cough 786.2 ; Medicare annual wellness visit, initial Z00.00 ; Morbid obesity due to excess calories E66.01 ; Chronic obstructive pulmonary disease, unspecified COPD type J44.9 ; Coronary artery disease involving zuni heart, angina presence unspecified, unspecified vessel or lesion type I25.10 ; Hypertension, benign I10 and LAURY (obstructive sleep apnea) G47.33 [place] [id number] [place] [address] February, Medicare annual wellness visit, initial Z00.00 ; Morbid obesity due to excess calories E66.01 ; Chronic obstructive pulmonary disease, unspecified COPD type J44.9 ; Coronary artery disease involving zuni heart, angina presence unspecified, unspecified vessel or lesion type I25.10 ; Hypertension, benign I10 ; LAURY (obstructive sleep apnea) G47.33 ; Family history of colon cancer Z80.0 ; Other chronic pain G89.29 and Pain in right hip M25.551 [place] [id number] [place] [address] Jan, [place] [address] [address] Nov, Panlobular emphysema J43.1 [place] [address] [address] Nov, COPD exacerbation J44.[address] [address] Nov, Viral URI J06.[address] [address] Nov, [place] [address] [address] Nov, [address] [address] Sep, Other obesity due to excess calories E66.09 and Body mass index (BMI) of 36.0-36.9 in adult Z68.36 [place] [id number] [place] [address] Aug, [place] [address] [address] Aug, [address] [address] Aug, Coronary artery disease involving zuni heart, angina presence unspecified, unspecified vessel or lesion type I25.10 and Chronic obstructive pulmonary disease, unspecified COPD type J44.9 [facility] [id number] [place] [address] Jul, COPD with acute exacerbation J44.1 [facility] [id number] [place] [address] Jul, Non morbid obesity E66.9 [facility] [id number] [place] [address] Jun, Panlobular emphysema J43.1 ; Tobacco abuse Z72.0 ; Tobacco abuse counseling Z71.6 and Non morbid obesity E66.9 [facility] [id number] [place] [address] Apr, [facility] [id number] [place] [address] Apr, [place] [id number] [place] [address] Mar, COPD exacerbation J44.1 [place] [address] [address] Mar, Tear of medial meniscus of right knee, current, unspecified tear type, initial encounter S83.241A [place] [id number] [place] [address] Mar, Pain in right knee M25.561 [facility] [id number] [place] [address] February, Pain in right knee M25.561 [place] [id number] [place] [address] February, Pain in right knee M25.561 [facility] [id number] [place] [address] Dec, [place] [id number] [place] [address] Nov, [facility] [id number] [place] [address] Nov, Bronchitis J40 and Wheezing R06.2 [place] [id number] [place] [address] Oct, [place] [address] [address] Oct, [place] [address] [id number] [place] [address] Oct, Non morbid obesity due to excess calories E66.09 ; Other chronic pain G89.29 and Pain in right knee M25.561 [place] [address] [address] Oct, Non morbid obesity due to excess calories E66.09 ; Other chronic pain G89.29 and Pain in right knee M25.561 [place] [id number] [place] [address] Oct, Pain in right knee M25.561 and Other chronic pain G89.29 [place] [address] [address] Aug, Encounter for immunization Z23 [place] [address] [address] Aug, [place] [address] [id number] [place] [address] Aug, [place] [id number] [place] [address] Jun, Common wart B07.8 [facility] [id number] [place] [address] May, Cellulitis of left elbow L03.114 [place] [address] [address] Mar, Torticollis, acute M43.6 and Leg pain, left M79.605 [place] [id number] [place] [address] February, Leg pain, left M79.605 [facility] [address] [address] Dec, COPD exacerbation J44.1 [facility] [address] [address] Dec, [facility] [address] [address] Oct, Chronic obstructive pulmonary disease, unspecified COPD type J44.9 and Hyperglycemia R73.9 [facility] [address] [address] Sep, Tobacco abuse Z72.0 ; Coronary artery disease involving zuni heart, angina presence unspecified, unspecified vessel or lesion type I25.10 and Morbid obesity due to excess calories E66.01 [facility] [address] [address] Sep, [facility] [address] [address] Sep, Leg pain, left M79.605 [facility] [address] [address] Sep, [facility] [address] [address] Sep, [facility] [address] [address] Aug, Essential (primary) hypertension I10 [place] [address] [address] 11 Aug, 2015 Encounter for immunization Z23 [place] [address] [address] Aug, [facility] [address] [address] May, Chronic airway obstruction, not elsewhere classified 496 [place] [address] [address] May, [facility] [id number] [place] [address] May, [facility] [id number] [place] [address] May, Acute bronchitis 466.0 [facility] [id number] [place] [address] May, [facility] [id number] [place] [address] May, Hyperglycemia 790.29 [facility] [address] [address] Apr, [facility] [id number] [place] [address] Apr, Cough 786.2 ; Hyperglycemia 790.29 and COPD (chronic obstructive pulmonary disease) 496 [facility] [id number] [place] [address] Mar, Cough 786.2 ; Elevated glucose 790.29 ; Wheezing 786.07 ; COPD exacerbation 491.21 and Nicotine dependence 305.1 [facility] [address] [place] [address] Mar, High risk medication use V58.69 [facility] [id number] [place] [address] Mar, High risk medication use V58.69 and Benign hypertension 401.1 [facility] [address] [place] [address] Mar, [facility] [id number] [place] [address] February, [facility] [id number] [place] [address] February, [facility] [id number] [place] [address] 30 Jan, 2015 [facility] [address] [id number] [place] [address] 30 Jan, 2015 Benign hypertension 401.1 [facility] [address] [id number] [place] [address] 14 Jan, 2015 [facility] [address] [id number] [place] [address] 13 Jan, 2015 [facility] [place] [facility] [address] [id number] [place] [address] 27 Dec, 2014 [facility] [address] [id number] [place] [address] 27 Dec, 2014 [facility] [address] [id number] [place] [address] 26 Dec, 2014 [facility] [address] [facility] [id number] [place] [address] 18 Dec, 2014 [facility] [address] [id number] [place] [address] 18 Dec, 2014 [facility] [address] [id number] [place] [address] 2014 [facility] [address] [facility] [id number] [place] [address] 2014 [facility] [place] [facility] [address] [id number] [place] [address] 13 Dec, 2014 [facility] [place] [facility] [address] [id number] [place] [address] 13 Dec, 2014 [facility] [place] [facility] [address] [id number] [place] [address] 06 Dec, 2014 [facility] [place] [facility] [address] [id number] [place] [address] 06 Dec, 2014 [facility] [place] [facility] [address] [facility] [id number], [place] [address] 05 Dec, 2014 [facility] [place] [facility] [address] [id number] [place] [address] Dec, [facility] [place] [facility] [address] [id number] [place] [address] Dec, [facility] [place] [facility] [address] [id number] [place] [address] Dec, [facility] [place] [facility] [address] [id number] [place] [address] Nov, [facility] [place] [facility] [address] [id number] [place] [address] Nov, 2014 [facility] [place] [facility] [address] [id number] [place] [address] Nov, [facility] [place] [facility] [address] [id number] [place] [address] Nov, [facility] [place] [facility] [address] [id number] [place] [address] Oct, [facility] [place] [facility] [address] [id number] [place] [address] Oct, [facility] [place] [facility] [address] [id number] [place] [address] Oct, [facility] [place] [facility] [address] [id number] [place] [address] Oct, [facility] [place] [facility] [address] [id number] [place] [address] Oct, [facility] [place] [facility] [address] [id number] [place] [address] Oct, [facility] [place] [facility] [address] [id number] [place] [address] Oct, [facility] [place] [facility] [address] [id number] [place] [address] Oct, [facility] [place] [facility] [address] [id number] [address] Sep, [facility] [place] [facility] [address] [id number] [place] [address] Sep, [facility] [place] [facility] [address] [id number] [place] [address] Sep, [facility] [place] [facility] [address] [id number] [place] [address] Sep, [facility] [place] [facility] [address] [id number] [place] [address] Sep, [facility] [place] [facility] [address] [id number] [place] [address] Sep, [facility] [place] [facility] [address] [id number] [place] [address] Sep, [facility] [place] [facility] [address] [id number] [place] [address] Sep, [facility] [place] [facility] [address] [id number] [place] [address] Aug, [facility] [place] [facility] [address] [id number] [place] [address] Aug, [facility] [place] [facility] [address] [id number] [place] [address] Aug, [facility] [place] [facility] [address] [id number] [address] Aug, [facility] [place] [facility] [address] [id number], [place] [address] Jul, [facility] [place] [facility] [address] [id number] [place] [address] Jul, [facility] [place] [facility] [address] [id number] [place] [address] Jul, [facility] [place] [facility] [address] [id number] [place] [address] Jul, [facility] [place] [facility] [address] [id number] [place] [address] Jul, 2013 [facility] [place] [facility] [address] [id number] [place] [address] Jul, [facility] [place] [facility] [address] [id number] [place] [address] Jul, [facility] [place] [facility] [address] [id number] [place] [address] Jul, 2013 [facility] [place] [facility] [address] [id number] [place] [address] Jul, [facility] [place] [facility] [address] [id number] [place] [address] Jul, [facility] [place] [facility] [address] [id number] [place] [address] Jul, [facility] [place] [facility] [address] [id number] [place] [address] Jul, 2013 [facility] [place] [facility] [address] [id number] [place] [address] Jul, [facility] [place] [facility] [address] [id number] [place] [address] Jul, [facility] [place] [facility] [address] [id number] [place] [address] Jul, [facility] [place] [facility] [address] [id number] [place] [address] Jul, [facility] [place] [facility] [address] [id number] [place] [address] Jul, [facility] [place] [facility] [address] [id number] [place] [address] Jul, [facility] [place] [facility] [address] [id number] [place] [address] Jul, [facility] [place] [facility] [address] [id number] [place] [address] Jul, [facility] [place] [facility] [address] [id number] [place] [address] Jul, [facility] [place] [facility] [address] [id number] [place] [address] Jul, [facility] [place] [facility] [address] [id number] [place] [address] Jun, 2013 [facility] [place] [facility] [address] [id number] [place] [address] 29 Jun, 2013 [facility] [place] [facility] [address] [id number] [place] [address] Jun, 2013 [facility] [place] [facility] [address] [id number] [place] [address] Jun, 2013 [facility] [place] [facility] [address] [id number] [place] [address] Jun, 2013 [facility] [place] [facility] [address] [id number] [place] [address] Jun, 2013 [facility] [place] [facility] [address] [id number] [place] [address] Jun, 2013 [facility] [place] [facility] [address] [id number] [place] [address] Jun, 2013 [facility] [place] [facility] [address] [id number] [place] [address] Jun, 2013 [facility] [place] [facility] [address] [id number], [place] [address] Jun, [facility] [place] [facility] [address] [id number] [place] [address] May, [facility] [place] [facility] [address] [id number] [place] [address] May, [facility] [place] [facility] [address] [id number] [place] [address] May, [facility] [place] [facility] [address] [id number] [place] [address] May, [facility] [place] [facility] [address] [id number] [place] [address] May, [facility] [place] [facility] [address] [id number] [place] [address] May, [facility] [place] [facility] [address] [id number] [place] [address] May, [facility] [place] [facility] [address] [id number] [place] [address] May, [facility] [place] [facility] [address] [id number] [place] [address] Apr, [facility] [place] [facility] [address] [id number] [place] [address] Apr, [facility] [place] [facility] [address] [id number] [place] [address] Apr, [facility] [place] [facility] [address] [id number] [place] [address] Apr, [facility] [place] [facility] [address] [id number] [place] [address] Apr, [facility] [place] [facility] [address] [id number] [place] [address] Apr, [facility] [place] [facility] [address] [id number] [place] [address] Mar, [facility] [place] [facility] [address] [id number] [place] [address] Mar, [facility] [place] [facility] [address] [id number] [place] [address] Mar, [facility] [place] [facility] [address] [id number] [place] [address] Mar, [facility] [place] [facility] [address] [id number] [place] [address] Mar, [facility] [place] [facility] [address] [id number] [place] [address] Mar, [facility] [place] [facility] [address] [id number] [place] [address] Mar, [facility] [place] [facility] [address] [id number] [place] [address] Mar, [facility] [place] [facility] [address] [id number] [place] [address] February, [facility] [place] [facility] [address] [id number] [place] [address] February, [facility] [place] [facility] [address] [id number] [place] [address] February, [facility] [place] [facility] [address] [id number] [place] [address] February, [facility] [place] [facility] [address] [id number] [place] [address] February, [facility] [place] [facility] [address] [id number] [place] [address] Jan, [facility] [place] [facility] [address] [id number] [place] [address] Jan, [facility] [place] [facility] [address] [id number] [place] [address] Nov, [facility] [place] [facility] [address] [id number] [place] [address] Nov, [facility] [place] [facility] [address] [id number] [place] [address] Nov, [facility] [place] [facility] [address] [id number] [place] [address] Nov, [facility] [place] [facility] [address] [id number] [place] [address] Nov, [facility] [place] [facility] [address] [id number], [place] [address] Nov, [facility] [address] [id number] [place] [address] Oct, [facility] [place] [facility] [address] [facility] [id number], [place] [address] Oct, [facility] [place] [facility] [address] [facility] [id number] [place] [address] Oct, [facility] [place] [facility] [address] [id number], [place] [address] Sep, [facility] [place] [facility] [address] [id number] [place] [address] Sep, [facility] [place] [address] [facility] [id number] [place] [address] Aug, [facility] [address] [facility] [id number], [place] [address] Aug, [facility] [address] [facility] [id number], [place] [address] Aug, [facility] [address] [facility] [id number], [place] [address] Aug, [facility] [address] [facility] [id number], [place] [address] Jul, [facility] [address] [id number], [place] [address] Jul, [facility] [address] [facility] [id number], [place] [address] Jul, [facility] [address] [id number], [place] [address] Jul, [facility] [address] [facility] [id number], [place] [address] Jul, [facility] [address] [facility] [id number], [place] [address] Jun, [facility] [place] [facility] [address] [id number] [place] [address] Jun, [facility] [place] [facility] [address] [id number] [place] [address] May, [facility] [address] [id number] [place] [address] May, [facility] [address] [id number] [place] [address] May, [facility] [place] [address] [id number] [place] [address] May, [facility] [place] [facility] [address] [id number] [place] [address] May, [facility] [place] [address] [id number] [place] [address] May, [facility] [place] [facility] [address] [id number] [place] [address] Apr, [facility] [place] [facility] [address] [id number] [place] [address] Apr, [facility] [place] [facility] [address] [id number] [place] [address] Apr, [facility] [place] [address] [id number] [place] [address] Apr, [facility] [facility] [address] [id number] [place] [address] Apr, [facility] [address] [id number] [place] [address] Mar, [facility] [place] [address] [id number] [place] [address] Mar, [facility] [place] [address] [id number] [place] [address] Mar, [facility] [address] [id number] [place] [address] February, [facility] [address] [id number] [place] [address] February, [facility] [address] [id number] [place] [address] February, [facility] [address] [id number] [place] [address] Dec, [facility] [place] [facility] [address] [id number] [place] [address] Dec, [facility] [address] [id number] [place] [address] Dec, [facility] [address] [id number] [place] [address] Oct, [facility] [place] [facility] [address] [id number] [place] [address] Oct, [facility] [place] [facility] [address] [id number] [place] [address] Sep, [facility] [place] [facility] [address] [id number] [place] [address] Sep, [facility] [place] [facility] [address] [id number] [place] [address] Aug, [facility] [place] [facility] [address] [id number] [address] Aug, [facility] [place] [facility] [address] [id number], [place] [address] Aug, [facility] [place] [facility] [address] [id number] [place] [address] Aug, [facility] [place] [facility] [address] [id number] [place] [address] Aug, [facility] [place] [facility] [address] [id number] [place] [address] Aug, [facility] [place] [facility] [id number] [address] Jul, [facility] [id number] [place] [address] Jul, [facility] [id number] [place] [address] Jul, [facility] [id number] [place] [address] Jul, [facility] [id number] [place] [address] Jul, [facility] [id number] [place] [id number] Jul, [facility] [id number] [place] [id number] Jun, [facility] [id number] [place] [address] Jun, [facility] [id number] [place] [address] Jun, [facility] [id number] [place] [id number] Jun, IMMUNIZATIONS Vaccine Route Administration Date Status SOLUMEDROL (UP TO 125 MG) IM Intramuscular Sep 28, 2018 Administered SOCIAL HISTORY Never Assessed REASON FOR VISIT fever/headache; difficulty breathing, coughing; symptoms x1 week; has been using breathing treatments - [facility] PLAN OF CARE Activity Details Follow Up Follow up here or with PCP if persists or worsens. Reason: Future/Pending Procedure NEB/MDI RX INITIAL VITAL SIGNS Height 72 in 2018-09-28 Weight 253.2 lbs 2018-09-28 Temperature 97.7 degrees Fahrenheit 2018-09-28 Heart Rate 88 bpm 2018-09-28 Respiratory Rate 24 2018-09-28 Oximetry on room air:98 % 2018-09-28 BMI 34.34 kg/m2 2018-09-28 Blood pressure systolic 144 mmHg 2018-09-28 Blood pressure diastolic 82 mmHg 2018-09-28 MEDICATIONS Medication Instructions Dosage Frequency Start Date End Date Duration Status Incruse Ellipta 62.5 MCG/INH Inhalation Once a day 1 puff 24h 30 Mar, 2017 Active Atorvastatin Calcium 40 mg Orally Once a day 1 tablet 24h Mar, 30 day(s) Active Ventolin HFA 108 (90 Base) MCG/ACT Inhalation 4 times a day 2 puffs as needed 6h Nov, 30 days Active Levaquin 750 MG Orally Once a day 1 tablet 24h 30 Aug, 2018 10 day(s) Active Viagra 100 mg Orally Once a day 1 tablet as needed 24h 27 Oct, 2015 Active Toprol XL 100 MG TAKE ONE TABLET BY MOUTH ONCE DAILY 90 Active Phenytoin Sodium Extended 100 MG TAKE TWO CAPSULES BY MOUTH TWICE DAILY 45 Active Hydrochlorothiazide 25 MG TAKE ONE TABLET BY MOUTH ONCE DAILY 90 Active Albuterol Sulfate (2.5 MG/3ML) 0.083% Inhalation every 6 hrs as directed 6h Aug, Active Aspirin 81 MG Orally Once a day take 1 tablet (81 mg) by oral route once daily 24h Aug, 90 days Active Protonix 40 mg Orally Once a day 1 tablet 24h 30 Active Stool Softener Active ProAir HFA 108 (90 Base) MCG/ACT Inhalation every 6 hrs 2 puffs as needed 6h Jun, Active RESULTS Name Result Date Reference Range Xray : Chest 2 View (IN HOUSE) 2018-09-28 PROCEDURES Procedure Date Ordered Result Body Site X-RAY EXAM CHEST 2 VIEWS Sep 28, 2018 NEB/MDI RX INITIAL Sep 28, 2018 SOLUMEDROL (UP TO 125 MG) Sep 28, 2018 THER/PROPH/DIAG INJ, SC/IM Sep 28, 2018 INSTRUCTIONS MEDICATIONS ADMINISTERED No Known Medications MEDICAL [...] [facility]- Viral infection Aug 26 Hospitalization History [facility]- Flu Sx 12/10/2016 Hospitalization History [facility]- Congestion, runny nose and abd pain 12/21/2017
--- OUTSIDE RECORDS SUMMARY | 2019-03-19 07:25 | XMS REPORT ---
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 Name Role Phone RENETTA CARDOZA Unavailable PROBLEMS Type Condition ICD9-CM Code EKY39-QU Code Onset Dates Condition Status SNOMED Code Problem Tobacco abuse Z72.0 Active 17449998 Problem Other chronic pain G89.29 Active 70609869 Problem Palpitations R00.2 Active 94588984 Problem COPD exacerbation J44.1 Active 572021491 Problem COPD with acute exacerbation J44.1 Active 279327681 Problem Non morbid obesity E66.9 Active 596204153 Problem Non morbid obesity due to excess calories E66.09 Active 273606112 Problem Other obesity due to excess calories E66.09 Active 171966775 Problem Panlobular emphysema J43.1 Active 0492375 Problem Chronic obstructive pulmonary disease, unspecified COPD type J44.9 Active 73891389 Problem LAURY (obstructive sleep apnea) G47.33 Active 28142531 Problem Edema, due to unspecified malnutrition type, unspecified type R60.9 Active 899385269 Problem Hypertension, benign I10 Active 81880119 Problem Coronary artery disease involving huslia heart, angina presence unspecified, unspecified vessel or lesion type I25.10 Active 47507512 Problem Morbid obesity due to excess calories E66.01 Active 649599376 ALLERGIES No Information ENCOUNTERS Encounter Location Date Diagnosis [facility] [address] [id number] [address] Aug, [facility] [id number] [address] 05 Aug, 2018 Non morbid obesity E66.9 [facility] [id number] [address] Jul, [facility] [id number] [place] [address] Jul, Testicular swelling, right N50.89 [place] [address] [address] 09 Jul, 2018 Callus L84 [place] [id number] [place] [address] Jun, Non morbid obesity E66.9 ; COPD exacerbation J44.1 ; 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 and Dermatofibroma D23.9 [place] [id number] [place] [address] May, Non morbid obesity E66.9 and Grade II hemorrhoids K64.1 [place] [id number] [place] [address] Mar, [place] [address] [address] 04 Mar, 2018 Cough 786.2 ; Medicare annual wellness visit, initial Z00.00 ; Morbid obesity due to excess calories E66.01 ; Chronic obstructive pulmonary disease, unspecified COPD type J44.9 ; Coronary artery disease involving huslia heart, angina presence unspecified, unspecified vessel or lesion type I25.10 ; Hypertension, benign I10 and LAURY (obstructive sleep apnea) G47.33 [place] [id number] [place] [address] February, Medicare annual wellness visit, initial Z00.00 ; Morbid obesity due to excess calories E66.01 ; Chronic obstructive pulmonary disease, unspecified COPD type J44.9 ; Coronary artery disease involving huslia heart, angina presence unspecified, unspecified vessel or lesion type I25.10 ; Hypertension, benign I10 ; LAURY (obstructive sleep apnea) G47.33 ; Family history of colon cancer Z80.0 ; Other chronic pain G89.29 and Pain in right hip M25.551 [place] [id number] [place] [address] Jan, [place] [id number] [place] [address] Nov, Panlobular emphysema J43.1 [place] [address] [address] Nov, COPD exacerbation J44.1 [place] [address] [address] 15 Nov, 2017 Viral URI J06.9 [place] [address] [address] Nov, [place] [address] [address] Nov, [place] [address] [address] Sep, Other obesity due to excess calories E66.09 and Body mass index (BMI) of 36.0-36.9 in adult Z68.36 [place] [address] [address] Aug, [place] [address] [address] Aug, [place] [id number] [place] [address] Aug, Coronary artery disease involving huslia heart, angina presence unspecified, unspecified vessel or lesion type I25.10 and Chronic obstructive pulmonary disease, unspecified COPD type J44.9 [facility] [id number] [place] [address] Jul, COPD with acute exacerbation J44.1 [facility] [address] [address] Jul, Non morbid obesity E66.9 [place] [address] [address] Jun, Panlobular emphysema J43.1 ; Tobacco abuse Z72.0 ; Tobacco abuse counseling Z71.6 and Non morbid obesity E66.9 [facility] [id number] [place] [address] Apr, [place] [id number] [place] [address] Apr, [place] [id number] [place] [address] Mar, COPD exacerbation J44.1 [place] [address] [address] Mar, Tear of medial meniscus of right knee, current, unspecified tear type, initial encounter S83.241A [place] [address] [address] Mar, Pain in right knee M25.561 [facility] [place] [id number] [place] [address] February, Pain in right knee M25.561 [place] [id number] [place] [address] February, Pain in right knee M25.561 [place] [id number] [place] [address] Dec, [place] [id number] [place] [address] Nov, [facility] [id number] [place] [address] Nov, Bronchitis J40 and Wheezing R06.2 [place] [id number] [place] [address] Oct, [place] [id number] [place] [address] Oct, [place] [id number] [place] [address] Oct, Non morbid obesity due to excess calories E66.09 ; Other chronic pain G89.29 and Pain in right knee M25.561 [place] [address] [address] Oct, Non morbid obesity due to excess calories E66.09 ; Other chronic pain G89.29 and Pain in right knee M25.561 [place] [address] [address] Oct, Pain in right knee M25.561 and Other chronic pain G89.29 [place] [address] [address] Aug, Encounter for immunization Z23 [place] [address] [address] Aug, [place] [address] [address] Aug, [place] [address] [address] Jun, Common wart B07.8 [facility] [address] [address] May, Cellulitis of left elbow L03.114 [place] [address] [address] Mar, Torticollis, acute M43.6 and Leg pain, left M79.605 [place] [address] [address] February, Leg pain, left M79.605 [facility] [place] [address] [address] Dec, COPD exacerbation J44.1 [place] [address] [address] Dec, [place] [address] [address] Oct, Chronic obstructive pulmonary disease, unspecified COPD type J44.9 and Hyperglycemia R73.9 [place] [address] [address] Sep, Tobacco abuse Z72.0 ; Coronary artery disease involving huslia heart, angina presence unspecified, unspecified vessel or lesion type I25.10 and Morbid obesity due to excess calories E66.01 [facility] [address] [address] Sep, [place] [address] [address] Sep, Leg pain, left M79.605 [place] [address] [address] Sep, [place] [address] [address] Sep, [place] [address] [address] Aug, Essential (primary) hypertension I10 [place] [address] [address] Aug, Encounter for immunization Z23 [place] [address] [address] Aug, [place] [address] [address] May, Chronic airway obstruction, not elsewhere classified 496 [place] [address] [address] May, [facility] [address] [address] May, [facility] [address] [address] May, Acute bronchitis 466.0 [place] [address] [place] [address] May, [facility] [id number] [place] [address] May, Hyperglycemia 790.29 [facility] [id number] [place] [address] Apr, [facility] [id number] [place] [address] Apr, Cough 786.2 ; Hyperglycemia 790.29 and COPD (chronic obstructive pulmonary disease) 496 [facility] [id number] [place] [address] Mar, Cough 786.2 ; Elevated glucose 790.29 ; Wheezing 786.07 ; COPD exacerbation 491.21 and Nicotine dependence 305.1 [facility] [id number] [place] [address] Mar, High risk medication use V58.69 [facility] [id number] [place] [address] Mar, High risk medication use V58.69 and Benign hypertension 401.1 [facility] [id number] [place] [address] Mar, [facility] [id number] [place] [address] February, [facility] [id number] [place] [address] February, [facility] [id number] [place] [address] Jan, [facility] [id number] [place] [address] Jan, Benign hypertension 401.1 [facility] [address] [address] Jan, [facility] [id number] [place] [address] 13 Jan, 2015 [facility] [place] [facility] [address] [id number] [place] [address] 27 Dec, 2014 [facility] [place] [facility] [address] [id number] [place] [address] 27 Dec, 2014 [facility] [place] [facility] [address] [id number] [place] [address] 26 Dec, 2014 [facility] [place] [facility] [address] [id number] [place] [address] 18 Dec, 2014 [facility] [place] [facility] [address] [id number] [place] [address] 18 Dec, 2014 [facility] [place] [facility] [address] [id number] [place] [address] 2014 [facility] [place] [facility] [address] [id number] [place] [address] 2014 [facility] [place] [facility] [address] [id number] [place] [address] 13 Dec, 2014 [facility] [place] [facility] [address] [id number] [place] [address] Dec, [facility] [place] [facility] [address] [id number] [place] [address] 06 Dec, 2014 [facility] [place] [facility] [address] [id number] [place] [address] 06 Dec, 2014 [facility] [place] [facility] [address] [id number] [place] [address] 05 Dec, 2014 [facility] [place] [facility] [address] [id number] [place] [address] 05 Dec, 2014 [facility] [place] [facility] [address] [id number] [place] [address] Dec, [facility] [place] [facility] [address] [id number] [place] [address] Dec, [facility] [place] [facility] [address] [id number] [place] [address] Nov, 2014 [facility] [place] [facility] [address] [id number] [place] [address] Nov, 2014 [facility] [place] [facility] [address] [id number] [place] [address] Nov, [facility] [place] [facility] [address] [id number] [place] [address] Nov, [facility] [place] [facility] [address] [id number] [place] [address] Oct, [facility] [place] [facility] [address] [id number] [place] [address] Oct, [facility] [place] [facility] [address] [id number] [place] [address] Oct, [facility] [place] [facility] [address] [id number] [place] [address] Oct, [facility] [place] [facility] [address] [id number] [place] [address] Oct, [facility] [place] [facility] [address] [id number] [place] [address] Oct, [facility] [place] [facility] [address] [id number] [place] [address] Oct, [facility] [place] [facility] [address] [id number] [place] [address] Oct, [facility] [place] [facility] [address] [id number] [place] [address] Sep, [facility] [place] [facility] [address] [id number] [place] [address] Sep, [facility] [place] [facility] [address] [id number] [place] [address] Sep, [facility] [place] [facility] [address] [id number] [place] [address] Sep, [facility] [place] [facility] [address] [id number] [place] [address] Sep, [facility] [place] [facility] [address] [id number] [place] [address] Sep, [facility] [place] [facility] [address] [id number] [place] [address] Sep, [facility] [place] [facility] [address] [id number] [place] [address] Sep, [facility] [place] [facility] [address] [id number] [place] [address] Aug, [facility] [place] [facility] [address] [id number] [place] [address] Aug, [facility] [place] [facility] [address] [id number] [place] [address] Aug, [facility] [place] [facility] [address] [id number] [place] [address] Aug, [facility] [place] [facility] [address] [id number] [place] [address] Jul, [facility] [place] [facility] [address] [id number] [place] [address] Jul, [facility] [place] [facility] [address] [id number] [place] [address] Jul, [facility] [place] [facility] [address] [id number] [place] [address] Jul, [facility] [place] [facility] [address] [id number] [place] [address] Jul, [facility] [place] [facility] [address] [id number] [place] [address] Jul, [facility] [place] [facility] [address] [id number] [place] [address] Jul, [facility] [place] [facility] [address] [id number] [place] [address] Jul, 2013 [facility] [place] [facility] [address] [id number] [place] [address] Jul, 2013 [facility] [place] [facility] [address] [id number] [place] [address] Jul, 2013 [facility] [place] [facility] [address] [id number] [place] [address] Jul, [facility] [place] [facility] [address] [id number] [place] [address] Jul, 2013 [facility] [place] [facility] [address] [id number] [place] [address] Jul, [facility] [place] [facility] [address] [id number] [place] [address] Jul, [facility] [place] [facility] [address] [id number] [place] [address] Jul, [facility] [place] [facility] [address] [id number] [place] [address] Jul, [facility] [place] [facility] [address] [id number] [place] [address] Jul, [facility] [place] [facility] [address] [id number] [place] [address] Jul, [facility] [place] [facility] [address] [id number] [place] [address] Jul, [facility] [place] [facility] [address] [id number] [place] [address] Jul, [facility] [place] [facility] [address] [id number] [place] [address] Jul, [facility] [place] [facility] [address] [id number] [place] [address] Jul, [facility] [place] [facility] [address] [id number] [place] [address] Jun, [facility] [place] [facility] [address] [id number] [place] [address] 29 Jun, 2013 [facility] [place] [facility] [address] [id number] [place] [address] Jun, 2013 [facility] [place] [facility] [address] [id number] [place] [address] Jun, 2013 [facility] [place] [facility] [address] [id number] [place] [address] Jun, 2013 [facility] [place] [facility] [address] [id number] [place] [address] 05 Jun, 2013 [facility] [place] [facility] [address] [id number] [place] [address] Jun, 2013 [facility] [place] [facility] [address] [id number] [place] [address] Jun, 2013 [facility] [place] [facility] [address] [id number] [place] [address] Jun, 2013 [facility] [place] [facility] [address] [id number] [place] [address] Jun, 2013 [facility] [place] [facility] [address] [id number] [place] [address] May, [facility] [place] [facility] [address] [id number] [place] [address] May, [facility] [place] [facility] [address] [id number] [place] [address] May, [facility] [place] [facility] [address] [id number] [place] [address] May, [facility] [place] [facility] [address] [id number] [place] [address] May, [facility] [place] [facility] [address] [id number] [place] [address] May, [facility] [place] [facility] [address] [id number] [place] [address] May, [facility] [place] [facility] [address] [id number] [place] [address] May, [facility] [place] [facility] [address] [id number] [place] [address] Apr, [facility] [place] [facility] [address] [id number] [place] [address] Apr, [facility] [place] [facility] [address] [id number] [place] [address] Apr, [facility] [place] [facility] [address] [id number] [place] [address] Apr, [facility] [place] [facility] [address] [id number] [place] [address] Apr, [facility] [place] [facility] [address] [id number] [place] [address] Apr, [facility] [place] [facility] [address] [id number] [place] [address] Mar, [facility] [place] [facility] [address] [id number] [place] [address] Mar, [facility] [place] [facility] [address] [id number] [place] [address] Mar, [facility] [place] [facility] [address] [id number] [place] [address] Mar, [facility] [place] [facility] [address] [id number] [place] [address] Mar, [facility] [place] [facility] [address] [id number] [place] [address] Mar, [facility] [place] [facility] [address] [id number] [place] [address] Mar, [facility] [place] [facility] [address] [id number] [place] [address] Mar, [facility] [place] [facility] [address] [id number] [place] [address] February, [facility] [place] [facility] [address] [id number] [place] [address] February, [facility] [place] [facility] [address] [id number] [place] [address] February, [facility] [place] [facility] [address] [id number] [place] [address] February, [facility] [place] [facility] [address] [id number] [place] [address] February, [facility] [place] [facility] [address] [id number] [place] [address] Jan, [facility] [place] [facility] [address] [id number] [place] [address] Jan, [facility] [place] [facility] [address] [id number] [place] [address] Nov, [facility] [place] [facility] [address] [id number] [place] [address] Nov, [facility] [place] [facility] [address] [id number] [place] [address] Nov, [facility] [place] [facility] [address] [id number] [place] [address] Nov, [facility] [place] [facility] [address] [id number] [place] [address] Nov, [facility] [place] [facility] [address] [id number] [place] [address] Nov, [facility] [place] [facility] [address] [id number] [place] [address] Oct, [facility] [place] [facility] [address] [id number] [place] [address] Oct, [facility] [place] [facility] [address] [id number] [place] [address] Oct, [facility] [place] [facility] [address] [id number] [place] [address] Sep, [facility] [place] [facility] [address] [id number] [place] [address] Sep, [facility] [place] [facility] [address] [id number] [place] [address] Aug, [facility] [place] [facility] [address] [id number] [place] [address] Aug, [facility] [place] [facility] [address] [id number] [place] [address] Aug, [facility] [place] [facility] [address] [id number] [place] [address] Aug, [facility] [place] [facility] [address] [id number] [place] [address] Jul, [facility] [place] [facility] [address] [id number] [place] [address] Jul, [facility] [place] [facility] [address] [id number] [place] [address] Jul, [facility] [place] [facility] [address] [id number] [place] [address] Jul, [facility] [place] [facility] [address] [id number] [place] [address] Jul, [facility] [place] [facility] [address] [id number] [place] [address] Jun, [facility] [place] [facility] [address] [id number] [place] [address] Jun, [facility] [place] [facility] [address] [id number] [place] [address] May, [facility] [place] [facility] [address] [id number] [place] [address] May, [facility] [place] [facility] [address] [id number] [place] [address] May, [facility] [address] [id number] [place] [address] May, [facility] [address] [id number] [place] [address] May, [facility] [address] [id number] [place] [address] May, [facility] [address] [id number] [place] [address] Apr, [facility] [address] [id number] [place] [address] Apr, [facility] [address] [id number] [place] [address] Apr, [facility] [address] [id number] [place] [address] Apr, [facility] [address] [id number] [place] [address] Apr, [facility] [address] [id number] [place] [address] Mar, [facility] [address] [id number] [place] [address] Mar, [facility] [address] [id number] [place] [address] Mar, [facility] [address] [id number] [place] [address] February, [facility] [place] [facility] [address] [id number] [place] [address] February, [facility] [address] [id number] [place] [address] February, [facility] [address] [id number] [place] [address] Dec, [facility] [place] [facility] [address] [id number] [place] [address] Dec, [facility] [place] [facility] [address] [id number] [place] [address] Dec, [facility] [place] [facility] [address] [id number] [place] [address] Oct, [facility] [place] [facility] [address] [id number] [place] [address] Oct, [facility] [place] [facility] [address] [id number] [place] [address] Sep, [facility] [place] [facility] [address] [id number] [place] [address] Sep, [facility] [place] [facility] [address] [id number] [place] [address] Aug, [facility] [place] [facility] [address] [id number] [place] [address] Aug, [facility] [place] [facility] [address] [id number] [place] [address] Aug, [facility] [place] [facility] [address] [id number] [place] [address] Aug, [facility] [place] [facility] [address] [id number] [place] [address] Aug, [facility] [place] [facility] [address] [id number] [place] [address] Aug, [facility] [place] [facility] [address] [id number] [place] [address] Jul, [facility] [place] [facility] [address] [id number] [place] [address] Jul, [facility] [place] [facility] [address] [id number] [place] [address] Jul, [facility] [place] [facility] [address] [id number] [place] [address] 15 Jul, 2012 [facility] [address] [id number] [place] [address] Jul, [facility] [address] [id number] [place] [address] Jul, [facility] [address] [id number] [place] [address] Jun, [facility] [address] [id number] [place] [address] Jun, [facility] [address] [id number] [place] [address] Jun, [facility] [address] [id number] [place] [address] Jun, IMMUNIZATIONS No Known Immunizations SOCIAL HISTORY Never Assessed REASON FOR VISIT narc violation PLAN OF CARE VITAL SIGNS MEDICATIONS Unknown [...] Colonoscopy 04/2018 Hospitalization History surgeries Hospitalization History [facility]- Viral infection Aug 26 Hospitalization History [facility] [place]- Flu Sx 12/10/2016 Hospitalization History [facility] [place]- Congestion, runny nose and abd pain 12/21/2017
--- OUTSIDE RECORDS SUMMARY | 2019-03-19 07:25 | XMS REPORT ---
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 Name Role Phone RENETTA CARDOZA Unavailable PROBLEMS Type Condition ICD9-CM Code CIB38-UY Code Onset Dates Condition Status SNOMED Code Problem Palpitations R00.2 Active 30873336 Problem Non morbid obesity due to excess calories E66.09 Active 176926199 Problem Other chronic pain G89.29 Active 39598153 Problem Erectile dysfunction, unspecified erectile dysfunction type N52.9 Active 766262965 Problem COPD exacerbation J44.1 Active 139931886 Problem Panlobular emphysema J43.1 Active 4222177 Problem Non morbid obesity E66.9 Active 096543015 Problem COPD with acute exacerbation J44.1 Active 409029432 Problem Other obesity due to excess calories E66.09 Active 813570099 Problem Edema, due to unspecified malnutrition type, unspecified type R60.9 Active 045016044 Problem LAURY (obstructive sleep apnea) G47.33 Active 87874524 Problem Hypertension, benign I10 Active 50839619 Problem Coronary artery disease involving circle heart, angina presence unspecified, unspecified vessel or lesion type I25.10 Active 71798184 Problem Morbid obesity due to excess calories E66.01 Active 436364992 Problem Chronic obstructive pulmonary disease, unspecified COPD type J44.9 Active 63547969 Problem Tobacco abuse Z72.0 Active 45178462 ALLERGIES Substance Reaction Event Type Date Status Diclofenac Unknown Drug Allergy Aug, Active ENCOUNTERS Encounter Location Date Diagnosis [facility] [id number] [address] Aug, Erectile dysfunction, unspecified erectile dysfunction type N52.9 [facility] [place] [id number] [address] Aug, Non morbid obesity E66.9 [facility] [address] [address] Jul, [facility] [id number] [place] [address] Jul, Testicular swelling, right N50.89 [place] [id number] [place] [address] Jul, Callus L84 [place] [id number] [place] [address] Jun, Non morbid obesity E66.9 ; COPD exacerbation J44.1 ; 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 and Dermatofibroma D23.9 [place] [id number] [place] [address] May, Non morbid obesity E66.9 and Grade II hemorrhoids K64.1 [place] [id number] [place] [address] Mar, [place] [id number] [place] [address] 04 Mar, 2018 Cough 786.2 ; Medicare annual wellness visit, initial Z00.00 ; Morbid obesity due to excess calories E66.01 ; Chronic obstructive pulmonary disease, unspecified COPD type J44.9 ; Coronary artery disease involving circle heart, angina presence unspecified, unspecified vessel or lesion type I25.10 ; Hypertension, benign I10 and LAURY (obstructive sleep apnea) G47.33 [place] [id number] [place] [address] February, Medicare annual wellness visit, initial Z00.00 ; Morbid obesity due to excess calories E66.01 ; Chronic obstructive pulmonary disease, unspecified COPD type J44.9 ; Coronary artery disease involving circle heart, angina presence unspecified, unspecified vessel or lesion type I25.10 ; Hypertension, benign I10 ; LAURY (obstructive sleep apnea) G47.33 ; Family history of colon cancer Z80.0 ; Other chronic pain G89.29 and Pain in right hip M25.[id number] [place] [address] Jan, [facility] [place] [address] [address] Nov, Panlobular emphysema J43.1 [facility] [place] [id number] [place] [address] Nov, COPD exacerbation J44.1 [facility] [place] [address] [address] Nov, Viral URI J06.9 [place] [address] [address] Nov, [facility] [place] [address] [address] Nov, [facility] [place] [address] [address] Sep, Other obesity due to excess calories E66.09 and Body mass index (BMI) of 36.0-36.9 in adult Z68.36 [place] [address] [address] Aug, [facility] [place] [id number] [place] [address] Aug, [facility] [id number] [place] [address] Aug, Coronary artery disease involving circle heart, angina presence unspecified, unspecified vessel or lesion type I25.10 and Chronic obstructive pulmonary disease, unspecified COPD type J44.9 [facility] [id number] [place] [address] Jul, COPD with acute exacerbation J44.1 [facility] [place] [id number] [place] [address] Jul, Non morbid obesity E66.9 [facility] [place] [id number] [place] [address] Jun, Panlobular emphysema J43.1 ; Tobacco abuse Z72.0 ; Tobacco abuse counseling Z71.6 and Non morbid obesity E66.9 [place] [id number] [place] [address] Apr, [place] [address] [address] Apr, [place] [address] [address] Mar, COPD exacerbation J44.1 [place] [address] [address] Mar, Tear of medial meniscus of right knee, current, unspecified tear type, initial encounter S83.241A [place] [address] [address] Mar, Pain in right knee M25.561 [facility] [address] [address] February, Pain in right knee M25.561 [place] [address] [address] February, Pain in right knee M25.561 [place] [id number] [place] [address] Dec, [place] [address] [address] Nov, [facility] [address] [address] Nov, Bronchitis J40 and Wheezing R06.2 [place] [id number] [place] [address] Oct, [place] [address] [address] Oct, [facility] [place] [id number] [place] [address] Oct, Non morbid obesity due to excess calories E66.09 ; Other chronic pain G89.29 and Pain in right knee M25.561 [place] [address] [address] Oct, Non morbid obesity due to excess calories E66.09 ; Other chronic pain G89.29 and Pain in right knee M25.561 [place] [address] [address] Oct, Pain in right knee M25.561 and Other chronic pain G89.29 [place] [address] [address] Aug, Encounter for immunization Z23 [place] [address] [address] Aug, [place] [address] [address] Aug, [place] [address] [address] Jun, Common wart B07.8 [facility] [place] [address] [address] May, Cellulitis of left elbow L03.114 [place] [address] [address] Mar, Torticollis, acute M43.6 and Leg pain, left M79.605 [place] [address] [address] February, Leg pain, left M79.605 [facility] [address] [address] Dec, COPD exacerbation J44.1 [place] [address] [place] [address] Dec, [facility] [place] [address] [address] Oct, Chronic obstructive pulmonary disease, unspecified COPD type J44.9 and Hyperglycemia R73.9 [facility] [id number] [place] [address] Sep, Tobacco abuse Z72.0 ; Coronary artery disease involving circle heart, angina presence unspecified, unspecified vessel or lesion type I25.10 and Morbid obesity due to excess calories E66.01 [facility] [place] [address] [address] Sep, [facility] [address] [address] Sep, Leg pain, left M79.605 [place] [address] [address] Sep, [facility] [address] [address] Sep, [facility] [place] [address] [address] Aug, Essential (primary) hypertension I10 [facility] [place] [id number] [place] [address] Aug, Encounter for immunization Z23 [facility] [place] [address] [address] Aug, [facility] [id number] [place] [address] May, Chronic airway obstruction, not elsewhere classified 496 [facility] [place] [address] [address] May, [facility] [id number] [place] [address] May, [facility] [place] [id number] [address] May, Acute bronchitis 466.0 [facility] [place] [id number] [place] [address] May, [facility] [address] [address] May, Hyperglycemia 790.29 [facility] [id number] [place] [address] Apr, [facility] [place] [id number] [place] [address] Apr, Cough 786.2 ; Hyperglycemia 790.29 and COPD (chronic obstructive pulmonary disease) 496 [facility] [address] [place] [address] Mar, Cough 786.2 ; Elevated glucose 790.29 ; Wheezing 786.07 ; COPD exacerbation 491.21 and Nicotine dependence 305.1 [facility] [place] [address] [address] Mar, High risk medication use V58.69 [facility] [place] [id number] [place] [address] Mar, High risk medication use V58.69 and Benign hypertension 401.1 [facility] [address] [address] Mar, [facility] [address] [address] February, [facility] [address] [address] February, [facility] [id number] [place] [address] Jan, [facility] [place] [address] [address] Jan, Benign hypertension 401.1 [facility] [id number] [place] [address] 14 Jan, 2014 [facility] [place] [facility] [address] [id number] [place] [address] 13 Jan, 2015 [facility] [place] [facility] [address] [id number] [place] [address] 27 Dec, 2014 [facility] [place] [facility] [address] [id number] [place] [address] 27 Dec, 2014 [facility] [place] [facility] [address] [id number] [place] [address] 26 Dec, 2014 [facility] [place] [facility] [address] [id number] [place] [address] 18 Dec, 2014 [facility] [place] [facility] [address] [id number] [place] [address] 18 Dec, 2014 [facility] [place] [facility] [address] [id number] [place] [address] 2014 [facility] [place] [facility] [address] [id number] [place] [address] 2014 [facility] [place] [facility] [address] [id number] [place] [address] 13 Dec, 2014 [facility] [place] [facility] [address] [id number] [place] [address] 13 Dec, 2014 [facility] [place] [facility] [address] [id number] [place] [address] 06 Dec, 2014 [facility] [place] [facility] [address] [id number] [place] [address] 06 Dec, 2014 [facility] [place] [facility] [address] [id number] [place] [address] 05 Dec, 2014 [facility] [place] [facility] [address] [id number] [place] [address] 05 Dec, 2014 [facility] [place] [facility] [address] [id number] [place] [address] Dec, [facility] [place] [facility] [address] [id number] [place] [address] Dec, [facility] [place] [facility] [address] [id number] [place] [address] Nov, [facility] [place] [facility] [address] [id number] [place] [address] Nov, [facility] [place] [facility] [address] [id number] [place] [address] Nov, [facility] [place] [facility] [address] [id number] [place] [address] Nov, [facility] [place] [facility] [address] [id number] [place] [address] Oct, [facility] [place] [facility] [address] [id number] [place] [address] Oct, [facility] [place] [facility] [address] [id number] [place] [address] Oct, [facility] [place] [facility] [address] [id number] [place] [address] Oct, [facility] [place] [facility] [address] [id number] [place] [address] Oct, [facility] [place] [facility] [address] [id number] [place] [address] Oct, [facility] [place] [facility] [address] [id number] [address] Oct, [facility] [place] [facility] [address] [id number] [place] [address] Oct, [facility] [place] [facility] [address] [id number] [place] [address] Sep, [facility] [place] [facility] [address] [id number] [place] [address] Sep, [facility] [place] [facility] [address] [id number] [place] [address] Sep, [facility] [place] [facility] [address] [id number] [place] [address] Sep, [facility] [place] [facility] [address] [id number] [place] [address] Sep, [facility] [place] [facility] [address] [id number] [place] [address] Sep, [facility] [place] [facility] [address] [id number] [place] [address] Sep, [facility] [place] [facility] [address] [id number] [place] [address] Sep, [facility] [place] [facility] [address] [id number] [place] [address] Aug, [facility] [place] [facility] [address] [id number] [place] [address] Aug, [facility] [place] [facility] [address] [id number] [place] [address] Aug, [facility] [place] [facility] [address] [id number] [place] [address] Aug, [facility] [place] [facility] [address] [facility] [id number] [place] [address] Jul, [facility] [place] [facility] [address] [id number] [place] [address] Jul, [facility] [place] [facility] [address] [id number] [place] [address] Jul, [facility] [place] [facility] [address] [id number] [place] [address] Jul, [facility] [place] [facility] [address] [id number] [place] [address] Jul, [facility] [place] [facility] [address] [id number] [place] [address] Jul, [facility] [place] [facility] [address] [id number] [place] [address] Jul, 2013 [facility] [place] [facility] [address] [id number] [place] [address] Jul, [facility] [place] [facility] [address] [id number] [place] [address] Jul, [facility] [place] [facility] [address] [id number] [place] [address] Jul, [facility] [place] [facility] [address] [id number] [place] [address] Jul, [facility] [place] [facility] [address] [id number] [place] [address] Jul, [facility] [place] [facility] [address] [id number] [place] [address] Jul, [facility] [place] [facility] [address] [id number] [place] [address] Jul, [facility] [place] [facility] [address] [id number] [place] [address] Jul, [facility] [place] [facility] [address] [id number] [place] [address] Jul, [facility] [place] [facility] [address] [id number] [place] [address] Jul, [facility] [place] [facility] [address] [id number] [address] Jul, [facility] [place] [facility] [address] [id number] [place] [address] Jul, [facility] [place] [facility] [address] [id number] [place] [address] Jul, [facility] [place] [facility] [address] [id number] [place] [address] Jul, [facility] [place] [facility] [address] [id number] [address] Jul, [facility] [place] [facility] [address] [id number] [place] [address] 29 Jun, 2013 [facility] [place] [facility] [address] [id number] [place] [address] 29 Jun, 2013 [facility] [place] [facility] [address] [id number] [place] [address] Jun, 2013 [facility] [place] [facility] [address] [id number] [place] [address] Jun, 2013 [facility] [place] [facility] [address] [id number] [place] [address] Jun, 2013 [facility] [place] [facility] [address] [id number] [place] [address] Jun, 2013 [facility] [place] [facility] [address] [id number] [place] [address] Jun, 2013 [facility] [place] [facility] [address] [id number] [place] [address] Jun, 2013 [facility] [place] [facility] [address] [id number] [place] [address] Jun, 2013 [facility] [place] [facility] [address] [id number] [place] [address] Jun, 2013 [facility] [place] [facility] [address] [id number] [place] [address] May, [facility] [place] [facility] [address] [id number] [place] [address] May, [facility] [place] [facility] [address] [id number] [place] [address] May, [facility] [place] [facility] [address] [id number] [place] [address] May, [facility] [place] [facility] [address] [id number] [place] [address] May, [facility] [place] [facility] [address] [id number] [place] [address] May, [facility] [place] [facility] [address] [id number] [place] [address] May, [facility] [place] [facility] [address] [id number] [place] [address] May, [facility] [place] [facility] [address] [id number] [place] [address] Apr, [facility] [place] [facility] [address] [id number] [place] [address] Apr, [facility] [place] [facility] [address] [id number] [place] [address] Apr, [facility] [place] [facility] [address] [id number] [place] [address] Apr, [facility] [place] [facility] [address] [id number] [place] [address] Apr, [facility] [place] [facility] [address] [id number] [place] [address] Apr, [facility] [place] [facility] [address] [id number] [place] [address] Mar, [facility] [place] [facility] [address] [id number] [place] [address] Mar, [facility] [place] [facility] [address] [id number] [place] [address] Mar, [facility] [place] [facility] [address] [id number] [place] [address] Mar, [facility] [place] [facility] [address] [id number] [place] [address] Mar, [facility] [place] [facility] [address] [id number] [place] [address] Mar, [facility] [place] [facility] [address] [id number] [place] [address] Mar, [facility] [place] [facility] [address] [id number] [place] [address] Mar, [facility] [place] [facility] [address] [id number] [place] [address] February, [facility] [place] [facility] [address] [id number] [place] [address] February, [facility] [place] [facility] [address] [id number] [place] [address] February, [facility] [place] [facility] [address] [id number] [place] [address] February, [facility] [place] [facility] [address] [id number] [place] [address] February, [facility] [place] [facility] [address] [id number] [place] [address] Jan, [facility] [place] [facility] [address] [id number] [place] [address] Jan, [facility] [place] [facility] [address] [id number] [place] [address] Nov, [facility] [place] [facility] [address] [id number] [place] [address] Nov, [facility] [place] [facility] [address] [id number] [place] [address] Nov, [facility] [place] [facility] [address] [id number] [address] Nov, [facility] [place] [facility] [address] [id number] [place] [address] Nov, [facility] [place] [facility] [address] [id number] [place] [address] Nov, [facility] [place] [facility] [address] [id number] [place] [address] Oct, [facility] [place] [facility] [address] [id number] [place] [address] 14 Oct, 2013 [facility] [address] [id number] [place] [address] Oct, [facility] [address] [id number] [place] [address] Sep, [facility] [address] [id number] [place] [address] Sep, [facility] [address] [id number] [place] [address] Aug, [facility] [address] [id number] [place] [address] Aug, [facility] [address] [id number] [place] [address] Aug, [facility] [address] [id number] [place] [address] Aug, [facility] [address] [id number] [place] [address] Jul, [facility] [address] [id number] [place] [address] Jul, [facility] [address] [id number] [place] [address] Jul, [facility] [place] [facility] [address] [id number] [place] [address] Jul, [facility] [address] [id number] [place] [address] Jul, [facility] [place] [facility] [address] [id number] [place] [address] Jun, [facility] [place] [facility] [address] [id number] [place] [address] Jun, [facility] [place] [facility] [address] [id number] [place] [address] May, [facility] [address] [id number] [place] [address] May, [facility] [place] [facility] [address] [id number] [place] [address] May, [facility] [place] [facility] [address] [id number] [place] [address] May, [facility] [place] [facility] [address] [id number] [place] [address] May, [facility] [place] [facility] [address] [id number] [place] [address] May, [facility] [place] [facility] [address] [id number] [place] [address] Apr, [facility] [place] [facility] [address] [id number] [place] [address] Apr, [facility] [place] [facility] [address] [id number] [place] [address] Apr, [facility] [place] [facility] [address] [id number] [place] [address] Apr, [facility] [place] [facility] [address] [id number] [place] [address] Apr, [facility] [place] [facility] [address] [id number] [place] [address] Mar, [facility] [place] [facility] [address] [id number] [place] [address] Mar, [facility] [place] [facility] [address] [id number] [place] [address] Mar, [facility] [place] [facility] [address] [id number] [place] [address] February, [facility] [place] [facility] [address] [id number] [place] [address] February, [facility] [place] [facility] [address] [id number] [address] February, [facility] [address] [id number] [place] [address] Dec, [facility] [place] [facility] [address] [id number] [place] [address] Dec, [facility] [place] [facility] [address] [facility] [id number] [place] [address] Dec, [facility] [place] [facility] [address] [id number] [place] [address] Oct, [facility] [place] [facility] [address] [id number] [place] [address] Oct, [facility] [place] [facility] [address] [id number] [place] [address] Sep, [facility] [place] [facility] [address] [id number] [place] [address] Sep, [facility] [place] [facility] [address] [id number] [place] [address] Aug, [facility] [place] [facility] [address] [facility] [id number] [place] [address] Aug, [facility] [place] [facility] [address] [facility] [id number] [place] [address] Aug, [facility] [place] [facility] [address] [facility] [id number] [address] Aug, [facility] [place] [facility] [address] [id number] [address] Aug, [facility] [place] [facility] [address] [id number] [place] [address] Aug, [facility] [place] [facility] [address] [facility] [id number] [place] [address] Jul, [facility] [place] [facility] [address] [facility] [id number] [place] [address] Jul, [facility] [place] [facility] [address] [id number] [address] Jul, [facility] [place] [id number] [address] Jul, [facility] [place] [id number] [address] Jul, [facility] [place] [id number] [address] Jul, [facility] [place] [id number] [address] Jun, [facility] [place] [id number] [address] Jun, [facility] [place] [id number] [address] Jun, [facility] [place] [id number] [address] Jun, IMMUNIZATIONS No Known Immunizations SOCIAL HISTORY Never Assessed 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 [id number] PLAN OF CARE VITAL SIGNS Height 72 in 2018-09-11 Weight 258.6 lbs 2018-09-11 Temperature 98.1 degrees Fahrenheit 2018-09-11 Heart Rate 92 bpm 2018-09-11 Respiratory Rate 18 2018-09-11 BMI 35.07 kg/m2 2018-09-11 Blood pressure systolic 140 mmHg 2018-09-11 Blood pressure diastolic 86 mmHg 2018-09-11 MEDICATIONS Medication Instructions Dosage Frequency Start Date End Date Duration Status Stool Softener Active Phenytoin Sodium Extended 100 MG TAKE TWO CAPSULES BY MOUTH TWICE DAILY 45 Active Viagra 100 mg Orally Once a day 1 tablet as needed 24h Oct, Active Protonix 40 mg Orally Once a day 1 tablet 24h 30 Active Albuterol Sulfate (2.5 MG/3ML) 0.083% Inhalation every 6 hrs as directed 6h Aug, Active Toprol XL 100 MG TAKE ONE TABLET BY MOUTH ONCE DAILY 90 Active Hydrochlorothiazide 25 MG TAKE ONE TABLET BY MOUTH ONCE DAILY 90 Active Atorvastatin Calcium 40 mg Orally Once a day 1 tablet 24h Mar, 30 day(s) Active Ventolin HFA 108 (90 Base) MCG/ACT Inhalation 4 times a day 2 puffs as needed 6h Nov, 30 days Active Incruse Ellipta 62.5 MCG/INH Inhalation Once a day 1 puff 24h 30 Mar, 2017 Active Aspirin 81 MG Orally Once a day take 1 tablet (81 mg) by oral route once daily 24h Aug, 90 days Active Ipratropium-Albuterol 0.5-2.5 (3) MG/3ML Inhalation every 6 hrs 3 ml 6h Nov, Not-Taking ProAir HFA 108 (90 Base) MCG/ACT Inhalation every 6 hrs 2 puffs as needed 6h Jun, Active RESULTS No Results PROCEDURES No Known [...] Colonoscopy 04/2018 Hospitalization History surgeries Hospitalization History [facility]- Viral infection Aug 26 Hospitalization History [facility] [place]- Flu Sx 12/10/2016 Hospitalization History [facility] [place]- Congestion, runny nose and abd pain 12/21/2017
[2019-03-19] MEDS ORDERED: LIDOCAINE 1% INJ 20 ML 20 ML VIAL ONE (07:26)
[2019-03-19] MEDS ORDERED: HEParin (CATH LAB) 2,000 ML IV ONE (07:26)
[2019-03-19] MEDS ORDERED: NS IV 1000 ML 1,000 ML ONE (07:26)
--- OUTSIDE RECORDS SUMMARY | 2019-03-19 07:26 | XMS REPORT ---
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 Name Role Phone RENETTA CARDOZA Unavailable PROBLEMS Type Condition ICD9-CM Code UYZ96-EE Code Onset Dates Condition Status SNOMED Code Problem Tobacco abuse Z72.0 Active 45317935 Problem Other chronic pain G89.29 Active 62009219 Problem Palpitations R00.2 Active 28354923 Problem COPD exacerbation J44.1 Active 887885960 Problem COPD with acute exacerbation J44.1 Active 657897458 Problem Non morbid obesity E66.9 Active 430207328 Problem Non morbid obesity due to excess calories E66.09 Active 115855943 Problem Other obesity due to excess calories E66.09 Active 918195557 Problem Panlobular emphysema J43.1 Active 9518297 Problem Chronic obstructive pulmonary disease, unspecified COPD type J44.9 Active 10205522 Problem LAURY (obstructive sleep apnea) G47.33 Active 75141527 Problem Edema, due to unspecified malnutrition type, unspecified type R60.9 Active 325158960 Problem Hypertension, benign I10 Active 41771920 Problem Coronary artery disease involving augustine heart, angina presence unspecified, unspecified vessel or lesion type I25.10 Active 04673471 Problem Morbid obesity due to excess calories E66.01 Active 555007889 ALLERGIES No Information ENCOUNTERS Encounter Location Date Diagnosis [facility] [address] [facility] [id number] [address] Aug, [facility] [id number] [address] Jul, [facility] [address] [address] Jul, Testicular swelling, right N50.89 [facility] [id number] [place] [address] Jul, Callus L84 [place] [id number] [place] [address] Jun, Non morbid obesity E66.9 ; COPD exacerbation J44.1 ; 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 and Dermatofibroma D23.9 [place] [address] [address] May, Non morbid obesity E66.9 and Grade II hemorrhoids K64.1 [place] [address] [address] Mar, [place] [address] [address] Mar, Cough 786.2 ; Medicare annual wellness visit, initial Z00.00 ; Morbid obesity due to excess calories E66.01 ; Chronic obstructive pulmonary disease, unspecified COPD type J44.9 ; Coronary artery disease involving augustine heart, angina presence unspecified, unspecified vessel or lesion type I25.10 ; Hypertension, benign I10 and LAURY (obstructive sleep apnea) G47.33 [place] [id number] [place] [address] February, Medicare annual wellness visit, initial Z00.00 ; Morbid obesity due to excess calories E66.01 ; Chronic obstructive pulmonary disease, unspecified COPD type J44.9 ; Coronary artery disease involving augustine heart, angina presence unspecified, unspecified vessel or lesion type I25.10 ; Hypertension, benign I10 ; LAURY (obstructive sleep apnea) G47.33 ; Family history of colon cancer Z80.0 ; Other chronic pain G89.29 and Pain in right hip M25.551 [place] [id number] [place] [address] Jan, [place] [id number] [place] [address] Nov, Panlobular emphysema J43.1 [place] [id number] [place] [address] Nov, COPD exacerbation J44.1 [facility] [address] [address] 15 Nov, 2017 Viral URI J06.9 [facility] [id number] [place] [address] Nov, [facility] [address] [address] Nov, [facility] [address] [address] Sep, Other obesity due to excess calories E66.09 and Body mass index (BMI) of 36.0-36.9 in adult Z68.36 [place] [address] [address] Aug, [place] [address] [address] Aug, [place] [address] [address] Aug, Coronary artery disease involving augustine heart, angina presence unspecified, unspecified vessel or lesion type I25.10 and Chronic obstructive pulmonary disease, unspecified COPD type J44.9 [facility] [id number] [place] [address] Jul, COPD with acute exacerbation J44.1 [facility] [id number] [place] [address] Jul, Non morbid obesity E66.9 [place] [address] [address] Jun, Panlobular emphysema J43.1 ; Tobacco abuse Z72.0 ; Tobacco abuse counseling Z71.6 and Non morbid obesity E66.9 [place] [address] [address] Apr, [facility] [address] [address] Apr, [facility] [id number] [place] [address] Mar, COPD exacerbation J44.1 [facility] [id number] [place] [address] Mar, Tear of medial meniscus of right knee, current, unspecified tear type, initial encounter S83.241A [place] [id number] [place] [address] Mar, Pain in right knee M25.561 [facility] [id number] [place] [address] February, Pain in right knee M25.561 [place] [address] [address] February, Pain in right knee M25.561 [facility] [id number] [place] [address] Dec, [facility] [id number] [place] [address] Nov, [facility] [id number] [place] [address] Nov, Bronchitis J40 and Wheezing R06.2 [facility] [id number] [place] [address] Oct, [facility] [id number] [place] [address] Oct, [facility] [id number] [place] [address] Oct, Non morbid obesity due to excess calories E66.09 ; Other chronic pain G89.29 and Pain in right knee M25.561 [facility] [id number] [place] [address] Oct, Non morbid obesity due to excess calories E66.09 ; Other chronic pain G89.29 and Pain in right knee M25.561 [place] [address] [address] Oct, Pain in right knee M25.561 and Other chronic pain G89.29 [place] [address] [address] Aug, Encounter for immunization Z23 [place] [address] [address] Aug, [place] [address] [address] Aug, [place] [address] [address] Jun, Common wart B07.8 [facility] [id number] [place] [address] May, Cellulitis of left elbow L03.[address] [address] Mar, Torticollis, acute M43.6 and Leg pain, left M79.[address] [address] February, Leg pain, left M79.605 [facility] [place] [id number] [place] [address] Dec, COPD exacerbation J44.1 [place] [address] [address] Dec, [place] [address] [address] Oct, Chronic obstructive pulmonary disease, unspecified COPD type J44.9 and Hyperglycemia R73.9 [place] [address] [place] [address] Sep, Tobacco abuse Z72.0 ; Coronary artery disease involving augustine heart, angina presence unspecified, unspecified vessel or lesion type I25.10 and Morbid obesity due to excess calories E66.01 [facility] [address] [address] Sep, [facility] [address] [address] Sep, Leg pain, left M79.605 [facility] [address] [address] Sep, [facility] [address] [address] Sep, [facility] [address] [address] Aug, Essential (primary) hypertension I10 [facility] [address] [address] Aug, Encounter for immunization Z23 [facility] [address] [address] Aug, [facility] [address] [address] May, Chronic airway obstruction, not elsewhere classified 496 [facility] [address] [address] May, [facility] [address] [address] May, [facility] [address] [address] May, Acute bronchitis 466.0 [facility] [address] [address] May, [facility] [address] [address] May, Hyperglycemia 790.29 [facility] [id number] [place] [address] Apr, [facility] [id number] [place] [address] Apr, Cough 786.2 ; Hyperglycemia 790.29 and COPD (chronic obstructive pulmonary disease) 496 [facility] [id number] [place] [address] Mar, Cough 786.2 ; Elevated glucose 790.29 ; Wheezing 786.07 ; COPD exacerbation 491.21 and Nicotine dependence 305.1 [facility] [id number] [place] [address] Mar, High risk medication use V58.69 [facility] [id number] [place] [address] Mar, High risk medication use V58.69 and Benign hypertension 401.1 [facility] [id number] [place] [address] Mar, [facility] [id number] [place] [address] February, [facility] [id number] [place] [address] February, [facility] [id number] [place] [address] Jan, [facility] [id number] [place] [address] Jan, Benign hypertension 401.1 [facility] [id number] [place] [address] Jan, [facility] [address] [address] Jan, [facility] [id number] [place] [address] Dec, [facility] [place] [facility] [address] [id number] [place] [address] 27 Dec, 2014 [facility] [place] [facility] [address] [id number] [place] [address] 26 Dec, 2014 [facility] [place] [facility] [address] [id number] [place] [address] 18 Dec, 2014 [facility] [place] [facility] [address] [id number] [place] [address] 18 Dec, 2014 [facility] [place] [facility] [address] [id number] [place] [address] 2014 [facility] [place] [facility] [address] [id number] [place] [address] 2014 [facility] [place] [facility] [address] [id number] [place] [address] Dec, [facility] [place] [facility] [address] [id number] [place] [address] 13 Dec, 2014 [facility] [place] [facility] [address] [id number] [place] [address] Dec, [facility] [place] [facility] [address] [id number] [place] [address] 06 Dec, 2014 [facility] [place] [facility] [address] [id number] [place] [address] 05 Dec, 2014 [facility] [place] [facility] [address] [id number] [address] 05 Dec, 2014 [facility] [place] [facility] [address] [id number] [place] [address] Dec, [facility] [place] [facility] [address] [id number] [place] [address] Dec, [facility] [place] [facility] [address] [id number] [place] [address] 16 Nov, 2014 [facility] [place] [facility] [address] [id number] [place] [address] 16 Nov, 2014 [facility] [address] [id number] [place] [address] Nov, [facility] [place] [facility] [address] [id number] [place] [address] Nov, [facility] [address] [id number] [place] [address] Oct, [facility] [place] [facility] [address] [id number] [place] [address] Oct, [facility] [address] [id number] [place] [address] Oct, [facility] [place] [facility] [address] [id number] [place] [address] Oct, [facility] [address] [id number] [place] [address] Oct, [facility] [address] [id number] [place] [address] Oct, [facility] [place] [facility] [address] [id number] [place] [address] Oct, [facility] [address] [id number] [place] [address] Oct, [facility] [place] [facility] [address] [id number] [place] [address] Sep, [facility] [place] [facility] [address] [id number] [place] [address] Sep, [facility] [place] [facility] [address] [id number] [place] [address] Sep, [facility] [place] [facility] [address] [id number] [place] [address] Sep, [facility] [place] [facility] [address] [id number] [place] [address] Sep, [facility] [place] [facility] [address] [id number] [place] [address] Sep, [facility] [place] [facility] [address] [id number] [place] [address] Sep, [facility] [place] [facility] [address] [id number] [place] [address] Sep, [facility] [place] [facility] [address] [id number] [place] [address] Aug, [facility] [place] [facility] [address] [id number] [place] [address] Aug, [facility] [place] [facility] [address] [id number] [place] [address] Aug, [facility] [place] [facility] [address] [id number] [place] [address] Aug, [facility] [place] [facility] [address] [id number] [place] [address] Jul, [facility] [place] [facility] [address] [id number] [place] [address] Jul, [facility] [place] [facility] [address] [id number] [address] Jul, [facility] [place] [facility] [address] [id number] [place] [address] Jul, [facility] [place] [facility] [address] [id number] [place] [address] Jul, [facility] [place] [facility] [address] [id number] [place] [address] Jul, [facility] [place] [facility] [address] [id number] [place] [address] Jul, [facility] [place] [facility] [address] [id number] [place] [address] Jul, [facility] [place] [facility] [address] [id number] [place] [address] Jul, [facility] [place] [facility] [address] [id number] [place] [address] Jul, [facility] [place] [facility] [address] [id number] [place] [address] Jul, [facility] [place] [facility] [address] [id number] [place] [address] Jul, [facility] [place] [facility] [address] [id number] [place] [address] Jul, [facility] [place] [facility] [address] [id number] [place] [address] Jul, [facility] [place] [facility] [address] [id number] [place] [address] Jul, [facility] [place] [facility] [address] [id number] [address] Jul, [facility] [place] [facility] [address] [id number] [place] [address] Jul, [facility] [place] [facility] [address] [facility] [id number] [place] [address] Jul, [facility] [place] [facility] [address] [facility] [id number] [place] [address] Jul, [facility] [place] [facility] [address] [id number] [place] [address] Jul, [facility] [place] [facility] [address] [id number] [place] [address] Jul, [facility] [place] [facility] [address] [id number] [place] [address] Jul, [facility] [place] [facility] [address] [facility] [id number] [place] [address] Jun, [facility] [place] [facility] [address] [id number] [place] [address] 29 Jun, 2014 [facility] [place] [facility] [address] [id number] [place] [address] 17 Sep, 2013 [facility] [place] [facility] [address] [id number] [place] [address] 17 Jun, 2013 [facility] [place] [facility] [address] [id number] [place] [address] 05 Sep, 2013 [facility] [place] [facility] [address] [id number] [place] [address] 05 Sep, 2013 [facility] [place] [facility] [address] [id number] [place] [address] 04 Sep, 2013 [facility] [place] [facility] [address] [id number] [place] [address] Jun, 2013 [facility] [place] [facility] [address] [id number] [place] [address] Jun, 2013 [facility] [place] [facility] [address] [id number] [place] [address] Jun, 2013 [facility] [place] [facility] [address] [id number] [place] [address] May, [facility] [place] [facility] [address] [id number] [place] [address] May, [facility] [place] [facility] [address] [id number] [place] [address] May, [facility] [place] [facility] [address] [id number] [place] [address] May, [facility] [place] [facility] [address] [id number] [place] [address] May, [facility] [place] [facility] [address] [id number] [place] [address] May, [facility] [place] [facility] [address] [id number] [place] [address] May, [facility] [place] [facility] [address] [id number] [place] [address] May, [facility] [place] [facility] [address] [id number] [place] [address] Apr, [facility] [place] [facility] [address] [id number] [place] [address] Apr, [facility] [place] [facility] [address] [id number] [place] [address] Apr, [facility] [place] [facility] [address] [id number] [place] [address] Apr, [facility] [place] [facility] [address] [id number] [place] [address] Apr, [facility] [place] [facility] [address] [id number] [place] [address] Apr, [facility] [place] [facility] [address] [id number] [place] [address] Mar, [facility] [place] [facility] [address] [id number] [place] [address] Mar, [facility] [place] [facility] [address] [id number] [place] [address] Mar, [facility] [place] [facility] [address] [id number] [place] [address] Mar, [facility] [place] [facility] [address] [id number] [place] [address] Mar, [facility] [place] [facility] [address] [id number] [address] Mar, [facility] [place] [facility] [address] [id number] [place] [address] Mar, [facility] [place] [facility] [address] [id number] [place] [address] Mar, [facility] [place] [facility] [address] [id number] [place] [address] February, [facility] [place] [facility] [address] [id number] [place] [address] February, [facility] [place] [facility] [address] [id number] [place] [address] February, [facility] [place] [facility] [address] [id number] [place] [address] February, [facility] [place] [facility] [address] [id number] [place] [address] February, [facility] [place] [facility] [address] [id number] [place] [address] Jan, [facility] [place] [facility] [address] [id number] [place] [address] Jan, [facility] [place] [facility] [address] [id number] [place] [address] Nov, [facility] [place] [facility] [address] [id number] [place] [address] Nov, [facility] [place] [facility] [address] [id number] [place] [address] Nov, [facility] [place] [facility] [address] [id number] [place] [address] Nov, [facility] [place] [facility] [address] [facility] [id number] [place] [address] Nov, [facility] [place] [facility] [address] [id number] [place] [address] Nov, [facility] [place] [facility] [address] [id number] [place] [address] Oct, [facility] [place] [facility] [address] [id number] [place] [address] Oct, [facility] [place] [facility] [address] [id number] [place] [address] Oct, [facility] [place] [facility] [address] [id number] [place] [address] Sep, [facility] [place] [facility] [address] [id number] [place] [address] Sep, [facility] [place] [facility] [address] [id number] [place] [address] Aug, [facility] [place] [facility] [address] [id number] [place] [address] Aug, [facility] [place] [facility] [address] [id number] [place] [address] Aug, [facility] [place] [facility] [address] [id number] [place] [address] Aug, [facility] [place] [facility] [address] [id number] [place] [address] Jul, [facility] [place] [facility] [address] [id number] [place] [address] Jul, [facility] [place] [facility] [address] [id number] [place] [address] Jul, [facility] [place] [facility] [address] [id number] [place] [address] Jul, [facility] [place] [facility] [address] [id number] [address] Jul, [facility] [place] [facility] [address] [id number] [place] [address] Jun, [facility] [place] [facility] [address] [id number] [place] [address] Jun, [facility] [place] [facility] [address] [id number] [place] [address] May, [facility] [place] [facility] [address] [id number] [address] May, [facility] [place] [facility] [address] [id number] [place] [address] May, [facility] [place] [facility] [address] [id number] [place] [address] May, [facility] [address] [id number] [place] [address] May, [facility] [place] [facility] [address] [id number] [place] [address] May, [facility] [place] [facility] [address] [id number] [place] [address] Apr, [facility] [place] [facility] [address] [id number] [place] [address] Apr, [facility] [place] [facility] [address] [id number] [place] [address] Apr, [facility] [place] [facility] [address] [id number] [place] [address] Apr, [facility] [address] [id number] [place] [address] Apr, [facility] [place] [facility] [address] [id number] [place] [address] Mar, [facility] [place] [facility] [address] [id number] [place] [address] Mar, [facility] [place] [facility] [address] [id number] [place] [address] Mar, [facility] [place] [facility] [address] [id number] [place] [address] February, [facility] [place] [facility] [address] [id number] [place] [address] February, [facility] [place] [facility] [address] [id number] [place] [address] February, [facility] [place] [facility] [address] [id number] [place] [address] Dec, [facility] [place] [facility] [address] [id number] [place] [address] Dec, [facility] [place] [facility] [address] [id number] [place] [address] Dec, [facility] [place] [facility] [address] [id number] [place] [address] Oct, [facility] [place] [facility] [address] [id number] [place] [address] Oct, [facility] [place] [facility] [address] [id number] [place] [address] Sep, [facility] [place] [facility] [address] [id number] [place] [address] Sep, [facility] [place] [facility] [address] [id number] [place] [address] Aug, [facility] [place] [facility] [address] [id number] [place] [address] Aug, [facility] [place] [facility] [address] [id number] [place] [address] Aug, [facility] [place] [facility] [address] [id number] [place] [address] Aug, [facility] [place] [facility] [address] [id number] [place] [address] Aug, [facility] [place] [facility] [address] [id number] [place] [address] Aug, [facility] [place] [facility] [address] [id number] [place] [address] Jul, [facility] [place] [facility] [address] [id number] [place] [address] Jul, [facility] [place] [facility] [address] [id number] [place] [address] Jul, [facility] [place] [facility] [address] [id number] [place] [address] Jul, [facility] [place] [facility] [address] [id number] [place] [address] Jul, [facility] [address] [facility] [id number] [place] [address] Jul, [facility] [address] [facility] [id number] [address] Jun, [facility] [address] [facility] [id number] [place] [address] Jun, [facility] [address] [facility] [id number] [place] [address] Jun, [facility] [address] [facility] [id number] [place] [address] Jun, IMMUNIZATIONS No Known Immunizations SOCIAL HISTORY Never Assessed REASON FOR VISIT Test results PLAN OF CARE VITAL SIGNS MEDICATIONS Unknown [...] Colonoscopy 04/2018 Hospitalization History surgeries Hospitalization History [facility]- Viral infection Aug 26 Hospitalization History [facility] [place]- Flu Sx 12/10/2016 Hospitalization History [facility] [place]- Congestion, runny nose and abd pain 12/21/2017
--- OUTSIDE RECORDS SUMMARY | 2019-03-19 07:26 | XMS REPORT ---
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 Name Role Phone RENETTA CARDOZA Unavailable PROBLEMS Type Condition ICD9-CM Code ZFO02-EL Code Onset Dates Condition Status SNOMED Code Problem Tobacco abuse Z72.0 Active 49688700 Problem Other chronic pain G89.29 Active 17101292 Problem Palpitations R00.2 Active 91031299 Problem COPD exacerbation J44.1 Active 694333430 Problem COPD with acute exacerbation J44.1 Active 496740941 Problem Non morbid obesity E66.9 Active 762970763 Problem Non morbid obesity due to excess calories E66.09 Active 378805328 Problem Other obesity due to excess calories E66.09 Active 887406222 Problem Panlobular emphysema J43.1 Active 7196016 Problem Chronic obstructive pulmonary disease, unspecified COPD type J44.9 Active 12050162 Problem LAURY (obstructive sleep apnea) G47.33 Active 79814098 Problem Edema, due to unspecified malnutrition type, unspecified type R60.9 Active 222842541 Problem Hypertension, benign I10 Active 40982768 Problem Coronary artery disease involving wrangell heart, angina presence unspecified, unspecified vessel or lesion type I25.10 Active 23279208 Problem Morbid obesity due to excess calories E66.01 Active 043964069 ALLERGIES Substance Reaction Event Type Date Status Diclofenac Unknown Drug Allergy May, Active ENCOUNTERS Encounter Location Date Diagnosis [facility] [address] [facility] [id number] [address] Jun, Non morbid obesity E66.9 ; COPD exacerbation J44.1 ; 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 and Dermatofibroma D23.9 [facility] [address] [facility] [id number] [place] [address] May, Non morbid obesity E66.9 and Grade II hemorrhoids K64.1 [place] [address] [place] [id number] [place] [address] Mar, [place] [address] [address] Mar, Cough 786.2 ; Medicare annual wellness visit, initial Z00.00 ; Morbid obesity due to excess calories E66.01 ; Chronic obstructive pulmonary disease, unspecified COPD type J44.9 ; Coronary artery disease involving wrangell heart, angina presence unspecified, unspecified vessel or lesion type I25.10 ; Hypertension, benign I10 and LAURY (obstructive sleep apnea) G47.33 [place] [address] [address] February, Medicare annual wellness visit, initial Z00.00 ; Morbid obesity due to excess calories E66.01 ; Chronic obstructive pulmonary disease, unspecified COPD type J44.9 ; Coronary artery disease involving wrangell heart, angina presence unspecified, unspecified vessel or lesion type I25.10 ; Hypertension, benign I10 ; LAURY (obstructive sleep apnea) G47.33 ; Family history of colon cancer Z80.0 ; Other chronic pain G89.29 and Pain in right hip M25.551 [place] [address] [address] Jan, [place] [address] [place] [id number] [place] [address] Nov, Panlobular emphysema J43.1 [place] [address] [place] [id number] [place] [address] Nov, COPD exacerbation J44.1 [place] [address] [address] Nov, Viral URI J06.9 [place] [address] [address] Nov, [place] [address] [address] Nov, [facility] [address] [address] Sep, Other obesity due to excess calories E66.09 and Body mass index (BMI) of 36.0-36.9 in adult Z68.36 [facility] [address] [address] Aug, [facility] [address] [id number] [place] [address] Aug, [facility] [address] [place] [id number] [place] [address] Aug, Coronary artery disease involving wrangell heart, angina presence unspecified, unspecified vessel or lesion type I25.10 and Chronic obstructive pulmonary disease, unspecified COPD type J44.9 [facility] [id number] [place] [address] Jul, COPD with acute exacerbation J44.1 [facility] [address] [id number] [place] [address] Jul, Non morbid obesity E66.9 [place] [address] [place] [id number] [place] [address] Jun, Panlobular emphysema J43.1 ; Tobacco abuse Z72.0 ; Tobacco abuse counseling Z71.6 and Non morbid obesity E66.9 [place] [address] [address] Apr, [facility] [address] [id number] [place] [address] Apr, [place] [address] [place] [id number] [place] [address] Mar, COPD exacerbation J44.1 [place] [id number] [place] [address] Mar, Tear of medial meniscus of right knee, current, unspecified tear type, initial encounter S83.241A [facility] [id number] [place] [address] Mar, Pain in right knee M25.561 [facility] [id number] [place] [address] February, Pain in right knee M25.561 [facility] [address] [id number] [place] [address] February, Pain in right knee M25.561 [facility] [address] [id number] [place] [address] Dec, [place] [address] [address] Nov, [facility] [address] [address] Nov, Bronchitis J40 and Wheezing R06.2 [place] [address] [id number] [place] [address] Oct, [place] [address] [place] [id number] [place] [address] Oct, [place] [address] [place] [id number] [place] [address] Oct, Non morbid obesity due to excess calories E66.09 ; Other chronic pain G89.29 and Pain in right knee M25.561 [place] [address] [place] [id number] [place] [address] Oct, Non morbid obesity due to excess calories E66.09 ; Other chronic pain G89.29 and Pain in right knee M25.561 [facility] [address] [id number] [place] [address] Oct, Pain in right knee M25.561 and Other chronic pain G89.29 [place] [address] [place] [id number] [place] [address] Aug, Encounter for immunization Z23 [place] [address] [place] [id number] [place] [address] Aug, [place] [address] [address] Aug, [place] [address] [address] Jun, Common wart B07.8 [facility] [place] [address] [address] May, Cellulitis of left elbow L03.114 [place] [address] [address] Mar, Torticollis, acute M43.6 and Leg pain, left M79.605 [place] [address] [address] February, Leg pain, left M79.605 [facility] [place] [address] [address] Dec, COPD exacerbation J44.1 [place] [address] [address] Dec, [place] [address] [place] [id number] [place] [address] Oct, Chronic obstructive pulmonary disease, unspecified COPD type J44.9 and Hyperglycemia R73.9 [place] [address] [place] [id number] [place] [address] Sep, Tobacco abuse Z72.0 ; Coronary artery disease involving wrangell heart, angina presence unspecified, unspecified vessel or lesion type I25.10 and Morbid obesity due to excess calories E66.01 [place] [address] [address] [id number] [place] [address] Sep, [place] [address] [address] Sep, Leg pain, left M79.605 [facility] [id number] [place] [address] Sep, [facility] [address] [address] Sep, [facility] [id number] [place] [address] Aug, Essential (primary) hypertension I10 [facility] [address] [address] Aug, Encounter for immunization Z23 [facility] [address] [address] Aug, [facility] [id number] [place] [address] May, Chronic airway obstruction, not elsewhere classified 496 [facility] [address] [address] May, [facility] [id number] [place] [address] May, [facility] [address] [id number] [place] [address] May, Acute bronchitis 466.0 [facility] [address] [place] [id number] [place] [address] May, [facility] [id number] [place] [address] May, Hyperglycemia 790.29 [facility] [address] [id number] [place] [address] Apr, [facility] [address] [address] Apr, Cough 786.2 ; Hyperglycemia 790.29 and COPD (chronic obstructive pulmonary disease) 496 [facility] [address] [address] Mar, Cough 786.2 ; Elevated glucose 790.29 ; Wheezing 786.07 ; COPD exacerbation 491.21 and Nicotine dependence 305.1 [facility] [address] [place] [id number] [place] [address] 16 Mar, 2015 High risk medication use V58.69 [facility] [address] [id number] [place] [address] 16 Mar, 2015 High risk medication use V58.69 and Benign hypertension 401.1 [facility] [address] [id number] [place] [address] 08 Mar, 2015 [facility] [address] [id number] [place] [address] February, [facility] [address] [place] [id number] [place] [address] February, [facility] [address] [place] [id number] [place] [address] Jan, [facility] [address] [place] [id number] [place] [address] 30 Jan, 2015 Benign hypertension 401.1 [facility] [address] [id number] [place] [address] 14 Jan, 2015 [facility] [address] [address] Jan, [facility] [address] [address] 27 Dec, 2014 [facility] [id number] [place] [address] 27 Dec, 2014 [facility] [address] [id number] [place] [address] 26 Dec, 2014 [facility] [address] [address] 18 Dec, 2014 [facility] [address] [id number] [place] [address] 18 Dec, 2014 [facility] [place] [facility] [address] [id number] [place] [address] 2014 [facility] [place] [facility] [address] [id number] [place] [address] 2014 [facility] [place] [facility] [address] [id number] [place] [address] Dec, [facility] [place] [facility] [address] [id number] [place] [address] Dec, [facility] [place] [facility] [address] [id number] [place] [address] Dec, [facility] [place] [facility] [address] [id number] [place] [address] Dec, [facility] [place] [facility] [address] [id number] [place] [address] Dec, [facility] [place] [facility] [address] [id number] [place] [address] Dec, [facility] [place] [facility] [address] [id number] [place] [address] Dec, [facility] [place] [facility] [address] [id number] [place] [address] Dec, [facility] [place] [facility] [address] [id number] [place] [address] Nov, 2014 [facility] [place] [facility] [address] [id number] [place] [address] Nov, 2014 [facility] [place] [facility] [address] [id number] [place] [address] Nov, [facility] [place] [facility] [address] [id number] [place] [address] Nov, [facility] [place] [facility] [address] [id number] [place] [address] Oct, [facility] [place] [facility] [address] [id number] [place] [address] Oct, [facility] [address] [id number] [place] [address] Oct, [facility] [place] [facility] [address] [id number] [place] [address] Oct, [facility] [address] [id number] [place] [address] Oct, [facility] [address] [id number] [place] [address] Oct, [facility] [address] [id number] [place] [address] Oct, [facility] [address] [id number] [place] [address] Oct, [facility] [address] [id number] [place] [address] Sep, [facility] [address] [id number] [place] [address] Sep, [facility] [address] [id number] [place] [address] Sep, [facility] [address] [id number] [place] [address] Sep, [facility] [place] [facility] [address] [id number] [place] [address] Sep, [facility] [place] [facility] [address] [id number] [place] [address] Sep, [facility] [place] [facility] [address] [id number] [place] [address] Sep, [facility] [place] [facility] [address] [id number] [place] [address] Sep, [facility] [place] [facility] [address] [id number] [place] [address] Aug, [facility] [place] [facility] [address] [id number] [place] [address] Aug, [facility] [place] [facility] [address] [id number] [place] [address] Aug, [facility] [place] [facility] [address] [id number] [place] [address] Aug, [facility] [place] [facility] [address] [id number] [place] [address] Jul, [facility] [place] [facility] [address] [id number] [place] [address] Jul, [facility] [place] [facility] [address] [id number] [place] [address] Jul, [facility] [place] [facility] [address] [id number] [place] [address] Jul, [facility] [place] [facility] [address] [id number] [place] [address] Jul, [facility] [place] [facility] [address] [id number] [place] [address] Jul, [facility] [place] [facility] [address] [id number] [place] [address] Jul, [facility] [place] [facility] [address] [id number] [place] [address] Jul, [facility] [place] [facility] [address] [id number] [place] [address] Jul, [facility] [place] [facility] [address] [id number] [place] [address] Jul, [facility] [place] [facility] [address] [id number] [place] [address] Jul, [facility] [place] [facility] [address] [id number] [place] [address] Jul, [facility] [place] [facility] [address] [id number] [place] [address] Jul, 2013 [facility] [place] [facility] [address] [id number] [place] [address] Jul, 2013 [facility] [place] [facility] [address] [id number] [place] [address] Jul, [facility] [place] [facility] [address] [facility] [id number] [place] [address] Jul, 2013 [facility] [place] [facility] [address] [id number] [place] [address] Jul, 2013 [facility] [place] [facility] [address] [id number] [place] [address] Jul, [facility] [place] [facility] [address] [facility] [id number] [place] [address] Jul, [facility] [place] [facility] [address] [facility] [id number] [place] [address] Jul, [facility] [place] [facility] [address] [facility] [id number] [place] [address] Jul, [facility] [place] [facility] [address] [facility] [id number] [place] [address] Jul, [facility] [place] [facility] [address] [facility] [id number] [place] [address] 29 Jun, 2013 [facility] [place] [facility] [address] [id number] [place] [address] 29 Sep, 2013 [facility] [place] [facility] [address] [id number] [place] [address] 17 Sep, 2013 [facility] [place] [facility] [address] [id number] [place] [address] 17 Sep, 2013 [facility] [place] [facility] [address] [facility] [id number] [place] [address] 05 Sep, 2013 [facility] [place] [facility] [address] [facility] [id number] [place] [address] 05 Sep, 2013 [facility] [place] [facility] [address] [id number] [place] [address] Jun, 2013 [facility] [place] [facility] [address] [id number] [facility] [address] Jun, [facility] [place] [facility] [address] [id number] [place] [address] Jun, 2013 [facility] [place] [facility] [address] [id number] [place] [address] Jun, [facility] [place] [facility] [address] [id number] [place] [address] May, [facility] [place] [facility] [address] [id number] [place] [address] May, [facility] [place] [facility] [address] [id number] [place] [address] May, [facility] [place] [facility] [address] [id number] [place] [address] May, [facility] [place] [facility] [address] [id number] [place] [address] May, [facility] [place] [facility] [address] [id number] [place] [address] May, [facility] [place] [facility] [address] [id number] [place] [address] May, [facility] [place] [facility] [address] [id number] [place] [address] May, [facility] [place] [facility] [address] [id number] [place] [address] Apr, [facility] [place] [facility] [address] [id number] [place] [address] Apr, [facility] [place] [facility] [address] [id number] [place] [address] Apr, [facility] [place] [facility] [address] [id number] [place] [address] Apr, [facility] [place] [facility] [address] [id number] [place] [address] Apr, [facility] [place] [facility] [address] [id number] [place] [address] Apr, [facility] [place] [facility] [address] [id number] [place] [address] Mar, [facility] [place] [facility] [address] [id number] [place] [address] Mar, [facility] [place] [facility] [address] [id number] [place] [address] Mar, [facility] [place] [facility] [address] [id number] [place] [address] Mar, [facility] [place] [facility] [address] [id number] [place] [address] Mar, [facility] [place] [facility] [address] [id number] [place] [address] Mar, [facility] [place] [facility] [address] [id number] [place] [address] Mar, [facility] [place] [facility] [address] [id number] [place] [address] Mar, [facility] [place] [facility] [address] [id number] [place] [address] February, [facility] [place] [facility] [address] [id number] [place] [address] February, [facility] [place] [facility] [address] [id number] [place] [address] February, [facility] [place] [facility] [address] [id number] [place] [address] February, [facility] [place] [facility] [address] [id number] [place] [address] February, [facility] [place] [facility] [address] [id number] [place] [address] Jan, [facility] [address] [id number] [place] [address] Jan, [facility] [place] [facility] [address] [id number] [place] [address] Nov, [facility] [place] [facility] [address] [id number] [place] [address] Nov, [facility] [place] [facility] [address] [id number] [place] [address] Nov, [facility] [place] [facility] [address] [id number] [place] [address] Nov, [facility] [place] [facility] [address] [id number] [place] [address] Nov, [facility] [place] [facility] [address] [id number] [place] [address] Nov, [facility] [place] [facility] [address] [id number] [place] [address] Oct, [facility] [place] [facility] [address] [facility] [id number] [place] [address] Oct, [facility] [place] [facility] [address] [facility] [id number] [place] [address] Oct, [facility] [place] [facility] [address] [id number] [place] [address] Sep, [facility] [place] [facility] [address] [id number] [place] [address] Sep, [facility] [place] [facility] [address] [id number] [place] [address] Aug, [facility] [place] [facility] [address] [id number] [place] [address] Aug, [facility] [place] [facility] [address] [id number] [place] [address] Aug, [facility] [place] [facility] [address] [id number] [place] [address] Aug, [facility] [place] [facility] [address] [id number] [place] [address] Jul, [facility] [place] [facility] [address] [id number] [place] [address] Jul, [facility] [place] [facility] [address] [id number] [place] [address] Jul, [facility] [place] [facility] [address] [id number] [place] [address] Jul, [facility] [place] [facility] [address] [id number] [place] [address] Jul, [facility] [place] [facility] [address] [id number] [place] [address] Jun, [facility] [place] [facility] [address] [id number] [place] [address] Jun, [facility] [place] [facility] [address] [id number] [place] [address] May, [facility] [place] [facility] [address] [id number] [place] [address] May, [facility] [place] [facility] [address] [id number] [place] [address] May, [facility] [place] [facility] [address] [id number] [address] May, [facility] [place] [facility] [address] [id number] [place] [address] May, [facility] [place] [facility] [address] [id number] [place] [address] May, [facility] [place] [facility] [address] [id number] [place] [address] Apr, [facility] [place] [facility] [address] [id number] [place] [address] Apr, [facility] [address] [id number] [place] [address] Apr, [facility] [place] [facility] [address] [id number] [place] [address] Apr, [facility] [place] [facility] [address] [id number] [place] [address] Apr, [facility] [place] [facility] [address] [id number] [place] [address] Mar, [facility] [place] [facility] [address] [id number] [place] [address] Mar, [facility] [place] [facility] [address] [id number] [place] [address] Mar, [facility] [address] [id number] [place] [address] February, [facility] [place] [facility] [address] [id number] [place] [address] February, [facility] [place] [facility] [address] [id number] [place] [address] February, [facility] [place] [facility] [address] [id number] [place] [address] Dec, [facility] [place] [facility] [address] [id number] [place] [address] Dec, [facility] [place] [facility] [address] [id number] [place] [address] Dec, [facility] [place] [facility] [address] [id number] [place] [address] Oct, [facility] [place] [facility] [address] [id number] [place] [address] Oct, [facility] [place] [facility] [address] [id number] [place] [address] Sep, [facility] [place] [facility] [address] [id number] [place] [address] Sep, [facility] [place] [facility] [address] [id number] [place] [address] Aug, [facility] [place] [facility] [address] [id number] [place] [address] Aug, [facility] [place] [facility] [address] [id number] [place] [address] Aug, [facility] [place] [facility] [address] [id number] [place] [address] Aug, [facility] [place] [facility] [address] [id number] [place] [address] Aug, [facility] [place] [facility] [address] [id number] [place] [address] Aug, [facility] [place] [facility] [address] [id number] [place] [address] Jul, [facility] [place] [facility] [address] [id number] [place] [address] Jul, [facility] [place] [facility] [address] [id number] [place] [address] Jul, [facility] [place] [facility] [address] [id number] [place] [address] Jul, [facility] [place] [facility] [address] [id number] [place] [address] Jul, [facility] [place] [facility] [address] [id number] [place] [address] Jul, [facility] [place] [facility] [address] [id number] [place] [address] Jun, [facility] [place] [facility] [address] [id number] [place] [address] Jun, [facility] [place] [facility] [address] [id number] [place] [address] Jun, [facility] [address] [facility] [id number] [place] [address] Jun, IMMUNIZATIONS No Known Immunizations SOCIAL HISTORY Never Assessed REASON FOR VISIT Obesity, PT reports he would like be back on the previous dietary medication he was on -Jb [employer] PL[employer] OF CARE VITAL SIGNS Height 72 in 2018-06-14 Weight 267.6 lbs 2018-06-14 Temperature 97.8 degrees Fahrenheit 2018-06-14 Heart Rate 86 bpm 2018-06-14 Respiratory Rate 20 2018-06-14 Oximetry 96 % 2018-06-14 BMI 36.29 kg/m2 2018-06-14 Blood pressure systolic 138 mmHg 2018-06-14 Blood pressure diastolic 78 mmHg 2018-06-14 MEDICATIONS Medication Instructions Dosage Frequency Start Date End Date Duration Status Ipratropium-Albuterol 0.5-2.5 (3) MG/3ML Inhalation every 6 hrs 3 ml 6h Nov, Active Ventolin HFA 108 (90 Base) MCG/ACT Inhalation 4 times a day 2 puffs as needed 6h Nov, 30 days Active Phenytoin Sodium Extended 100 MG TAKE TWO CAPSULES BY MOUTH TWICE DAILY 45 Active Cialis 20 mg Orally Once a day 1 tablet 24h Jul, Active Phentermine HCl 37.5 MG Orally Once a day 1 capsule 24h May, Active Toprol XL 100 MG TAKE ONE TABLET BY MOUTH ONCE DAILY 90 Active Albuterol Sulfate (2.5 MG/3ML) 0.083% Inhalation every 6 hrs as directed 6h Aug, Active Incruse Ellipta 62.5 MCG/INH Inhalation Once a day 1 puff 24h 30 Mar, 2017 Active Aspirin 81 MG Orally Once a day take 1 tablet (81 mg) by oral route once daily 24h Aug, 90 days Active Protonix 40 mg Orally Once a day 1 tablet 24h 30 Active Atorvastatin Calcium 40 mg Orally Once a day 1 tablet 24h Mar, 30 day(s) Active Hydrochlorothiazide 25 MG TAKE ONE TABLET BY MOUTH ONCE DAILY 90 Active RESULTS No Results PROCEDURES Procedure Date Ordered Result Body Site [facility] VISIT ESTABLISHED PATIENT Jun 14, 2018 INSTRUCTIONS MEDICATIONS ADMINISTERED No Known Medications [...] Colonoscopy 04/2018 Hospitalization History surgeries Hospitalization History [facility]- Viral infection Aug 26 Hospitalization History [facility] [place]- Flu Sx 12/10/2016 Hospitalization History [facility] [place]- Congestion, runny nose and abd pain 12/21/2017
--- OUTSIDE RECORDS SUMMARY | 2019-03-19 07:27 | XMS REPORT ---
Author Author RENETTA CARDOZA Organization [facility] Address [address] [place] [address] Care Team Providers Care Epoxy Specialist Name Role Phone RENETTA CARDOZA Unavailable PROBLEMS Type Condition ICD9-CM Code XEN86-HX Code Onset Dates Condition Status SNOMED Code Problem Tobacco abuse Z72.0 Active 45732070 Problem Other chronic pain G89.29 Active 19470778 Problem Palpitations R00.2 Active 55666215 Problem COPD exacerbation J44.1 Active 965106912 Problem COPD with acute exacerbation J44.1 Active 901564388 Problem Non morbid obesity E66.9 Active 775985864 Problem Non morbid obesity due to excess calories E66.09 Active 446273417 Problem Other obesity due to excess calories E66.09 Active 881097004 Problem Panlobular emphysema J43.1 Active 5554016 Problem Chronic obstructive pulmonary disease, unspecified COPD type J44.9 Active 29521808 Problem LAURY (obstructive sleep apnea) G47.33 Active 23180532 Problem Edema, due to unspecified malnutrition type, unspecified type R60.9 Active 128304445 Problem Hypertension, benign I10 Active 54082457 Problem Coronary artery disease involving [place] heart, angina presence unspecified, unspecified vessel or lesion type I25.10 Active 50589738 Problem Morbid obesity due to excess calories E66.01 Active 169593110 ALLERGIES No Information ENCOUNTERS Encounter Location Date Diagnosis [place] [address] [address] Jun, [place] [address] [place] [id number] [place] [address] May, Non morbid obesity E66.9 and Grade II hemorrhoids K64.1 [facility] [address] [address] Mar, [place] [address] [place] [id number] [place] [address] 04 Mar, 2018 Cough 786.2 ; Medicare annual wellness visit, initial Z00.00 ; Morbid obesity due to excess calories E66.01 ; Chronic obstructive pulmonary disease, unspecified COPD type J44.9 ; Coronary artery disease involving [place] heart, angina presence unspecified, unspecified vessel or lesion type I25.10 ; Hypertension, benign I10 and LAURY (obstructive sleep apnea) G47.33 [place] [address] [place] [id number] [place] [address] 31 Feb, 2018 Medicare annual wellness visit, initial Z00.00 ; Morbid obesity due to excess calories E66.01 ; Chronic obstructive pulmonary disease, unspecified COPD type J44.9 ; Coronary artery disease involving [place] heart, angina presence unspecified, unspecified vessel or lesion type I25.10 ; Hypertension, benign I10 ; LAURY (obstructive sleep apnea) G47.33 ; Family history of colon cancer Z80.0 ; Other chronic pain G89.29 and Pain in right hip M25.551 [place] [address] [place] [id number] [place] [address] Jan, [place] [address] [place] [id number] [place] [address] Nov, Panlobular emphysema J43.1 [place] [address] [place] [id number] [place] [address] Nov, COPD exacerbation J44.1 [place] [address] [place] [id number] [place] [address] 15 Nov, 2017 Viral URI J06.9 [place] [address] [place] [id number] [place] [address] Nov, [place] [address] [place] [id number] [place] [address] Nov, [place] [address] [place] [id number] [place] [address] Sep, Other obesity due to excess calories E66.09 and Body mass index (BMI) of 36.0-36.9 in adult Z68.36 [place] [id number] [place] [address] Aug, [place] [address] [place] [id number] [place] [address] Aug, [place] [address] [place] [id number] [place] [address] Aug, Coronary artery disease involving [place] heart, angina presence unspecified, unspecified vessel or lesion type I25.10 and Chronic obstructive pulmonary disease, unspecified COPD type J44.9 [facility] [address] [place] [id number] [place] [address] Jul, COPD with acute exacerbation J44.1 [place] [address] [place] [id number] [place] [address] Jul, Non morbid obesity E66.9 [place] [address] [place] [id number] [place] [address] Jun, Panlobular emphysema J43.1 ; Tobacco abuse Z72.0 ; Tobacco abuse counseling Z71.6 and Non morbid obesity E66.9 [place] [address] [place] [address] Apr, [place] [address] [place] [id number] [place] [address] Apr, [place] [address] [place] [id number] [place] [address] Mar, COPD exacerbation J44.1 [place] [address] [place] [id number] [place] [address] Mar, Tear of medial meniscus of right knee, current, unspecified tear type, initial encounter S83.241A [place] [address] [place] [address] Mar, Pain in right knee M25.561 [facility] [address] [address] February, Pain in right knee M25.561 [facility] [address] [place] [id number] [place] [address] February, Pain in right knee M25.561 [facility] [address] [place] [id number] [place] [address] Dec, [facility] [address] [place] [id number] [place] [address] Nov, [facility] [address] [place] [id number] [place] [address] Nov, Bronchitis J40 and Wheezing R06.2 [place] [address] [place] [id number] [place] [address] Oct, [place] [address] [place] [id number] [place] [address] Oct, [place] [address] [place] [id number] [place] [address] Oct, Non morbid obesity due to excess calories E66.09 ; Other chronic pain G89.29 and Pain in right knee M25.561 [place] [address] [place] [id number] [place] [address] Oct, Non morbid obesity due to excess calories E66.09 ; Other chronic pain G89.29 and Pain in right knee M25.561 [place] [address] [place] [id number] [place] [address] Oct, Pain in right knee M25.561 and Other chronic pain G89.29 [place] [address] [place] [id number] [place] [address] Aug, Encounter for immunization Z23 [facility] [address] [place] [id number] [place] [address] Aug, [place] [address] [place] [address] Aug, [facility] [address] [place] [id number] [place] [address] Jun, Common wart B07.8 [facility] [address] [place] [id number] [place] [address] May, Cellulitis of left elbow L03.114 [place] [address] [address] Mar, Torticollis, acute M43.6 and Leg pain, left M79.605 [place] [address] [address] February, Leg pain, left M79.605 [facility] [address] [place] [id number] [place] [address] Dec, COPD exacerbation J44.1 [place] [address] [place] [id number] [place] [address] Dec, [place] [address] [place] [id number] [place] [address] Oct, Chronic obstructive pulmonary disease, unspecified COPD type J44.9 and Hyperglycemia R73.9 [place] [address] [place] [id number] [place] [address] Sep, Tobacco abuse Z72.0 ; Coronary artery disease involving [place] heart, angina presence unspecified, unspecified vessel or lesion type I25.10 and Morbid obesity due to excess calories E66.01 [place] [address] [place] [id number] [place] [address] Sep, [place] [address] [place] [id number] [place] [address] Sep, Leg pain, left M79.605 [place] [address] [place] [id number] [place] [address] Sep, [place] [address] [place] [id number] [place] [address] Sep, [facility] [address] [address] Aug, Essential (primary) hypertension I10 [facility] [address] [address] Aug, Encounter for immunization Z23 [facility] [address] [address] Aug, [facility] [address] [address] May, Chronic airway obstruction, not elsewhere classified [address] [place] [address] [address] May, [facility] [address] [address] May, [facility] [address] [address] May, Acute bronchitis 466.0 [place] [address] [address] May, [facility] [address] [place] [id number] [place] [address] May, Hyperglycemia 790.29 [facility] [address] [address] Apr, [facility] [address] [place] [id number] [place] [address] Apr, Cough 786.2 ; Hyperglycemia 790.29 and COPD (chronic obstructive pulmonary disease) [address] [place] [address] [place] [id number] [place] [address] Mar, Cough 786.2 ; Elevated glucose 790.29 ; Wheezing 786.07 ; COPD exacerbation 491.21 and Nicotine dependence 305.1 [facility] [address] [place] [address] 16 Mar, 2015 High risk medication use V58.69 [facility] [address] [address] 16 Mar, 2015 High risk medication use V58.69 and Benign hypertension 401.1 [facility] [address] [place] [address] 08 Mar, 2015 [facility] [address] [address] February, [facility] [address] [place] [address] February, [facility] [address] [address] 30 Jan, 2015 [facility] [address] [address] 30 Jan, 2015 Benign hypertension 401.1 [facility] [address] [address] 14 Jan, 2015 [facility] [address] [address] 13 Jan, 2015 [facility] [address] [address] 27 Dec, 2014 [facility] [address] [address] 27 Dec, 2014 [facility] [address] [address] 26 Dec, 2014 [facility] [address] [address] 18 Dec, 2014 [facility] [address] [address] 18 Dec, 2014 [facility] [address] [place] [id number] [address] 2014 [facility] [place] [facility] [address] [id number] [place] [address] 2014 [facility] [place] [facility] [address] [id number] [place] [address] Dec, [facility] [place] [facility] [address] [id number] [place] [address] Dec, [facility] [place] [facility] [address] [id number] [place] [address] Dec, [facility] [place] [facility] [address] [id number] [place] [address] Dec, [facility] [place] [facility] [address] [id number] [place] [address] Dec, [facility] [place] [facility] [address] [id number] [place] [address] Dec, [facility] [place] [facility] [address] [id number] [place] [address] Dec, [facility] [place] [facility] [address] [id number] [place] [address] Dec, [facility] [place] [facility] [address] [id number] [place] [address] Nov, [facility] [place] [facility] [address] [id number] [place] [address] Nov, [facility] [place] [facility] [address] [id number] [place] [address] Nov, [facility] [place] [facility] [address] [id number] [place] [address] Nov, [facility] [place] [facility] [address] [id number] [place] [address] Oct, [facility] [place] [facility] [address] [id number] [place] [address] Oct, [facility] [place] [facility] [address] [id number] [place] [address] Oct, [facility] [place] [facility] [address] [id number] [place] [address] Oct, [facility] [place] [facility] [address] [id number] [place] [address] Oct, [facility] [place] [facility] [address] [id number] [place] [address] Oct, [facility] [place] [facility] [address] [id number] [place] [address] Oct, [facility] [place] [facility] [address] [id number] [place] [address] Oct, [facility] [place] [facility] [address] [id number] [place] [address] Sep, [facility] [place] [facility] [address] [id number] [place] [address] Sep, [facility] [place] [facility] [address] [id number] [place] [address] Sep, [facility] [place] [facility] [address] [id number] [place] [address] Sep, [facility] [place] [facility] [address] [id number] [place] [address] Sep, [facility] [place] [facility] [address] [id number] [place] [address] Sep, [facility] [place] [facility] [address] [id number] [place] [address] Sep, [facility] [place] [facility] [address] [id number] [place] [address] Sep, [facility] [place] [facility] [address] [id number] [place] [address] Aug, [facility] [place] [facility] [address] [id number] [place] [address] Aug, [facility] [place] [facility] [address] [id number] [place] [address] Aug, [facility] [place] [facility] [address] [id number] [place] [address] Aug, [facility] [place] [facility] [address] [id number] [place] [address] Jul, [facility] [place] [facility] [address] [id number] [place] [address] Jul, [facility] [place] [facility] [address] [id number] [place] [address] Jul, [facility] [place] [facility] [address] [id number] [place] [address] Jul, [facility] [place] [facility] [address] [id number] [place] [address] Jul, [facility] [place] [facility] [address] [id number] [place] [address] Jul, [facility] [place] [facility] [address] [id number] [place] [address] Jul, [facility] [place] [facility] [address] [id number] [place] [address] Jul, [facility] [place] [facility] [address] [id number] [place] [address] Jul, [facility] [place] [facility] [address] [id number] [place] [address] Jul, [facility] [place] [facility] [address] [id number] [place] [address] Jul, [facility] [place] [facility] [address] [id number] [place] [address] Jul, [facility] [place] [facility] [address] [id number] [place] [address] 15 Jul, 2014 [facility] [place] [facility] [address] [id number] [place] [address] Jul, [facility] [place] [facility] [address] [id number] [place] [address] Jul, [facility] [place] [facility] [address] [id number] [place] [address] Jul, [facility] [place] [facility] [address] [id number] [place] [address] Jul, [facility] [place] [facility] [address] [id number] [place] [address] Jul, [facility] [place] [facility] [address] [id number] [place] [address] Jul, [facility] [place] [facility] [address] [id number] [place] [address] Jul, [facility] [place] [facility] [address] [id number] [place] [address] Jul, [facility] [place] [facility] [address] [id number] [place] [address] Jul, [facility] [place] [facility] [address] [id number] [place] [address] 29 Jun, 2013 [facility] [place] [facility] [address] [id number] [place] [address] 29 Jun, 2013 [facility] [place] [facility] [address] [id number] [address] 17 Jun, 2013 [facility] [place] [facility] [address] [id number] [address] 17 Sep, 2013 [facility] [place] [facility] [address] [id number] [place] [address] 05 Sep, 2013 [facility] [place] [facility] [address] [id number] [place] [address] 05 Sep, 2013 [facility] [place] [facility] [address] [facility] [id number] [address] 04 Sep, 2013 [facility] [place] [facility] [address] [id number] [address] Jun, [facility] [place] [facility] [address] [id number] [place] [address] Jun, [facility] [place] [facility] [address] [id number] [place] [address] Jun, [facility] [place] [facility] [address] [id number] [place] [address] May, [facility] [place] [facility] [address] [id number] [place] [address] May, [facility] [place] [facility] [address] [id number] [place] [address] May, [facility] [place] [facility] [address] [id number] [place] [address] May, [facility] [place] [facility] [address] [id number] [place] [address] May, [facility] [place] [facility] [address] [id number] [place] [address] May, [facility] [place] [facility] [address] [id number] [place] [address] May, [facility] [place] [facility] [address] [id number] [place] [address] May, [facility] [place] [facility] [address] [id number] [place] [address] Apr, [facility] [place] [facility] [address] [id number] [place] [address] Apr, [facility] [place] [facility] [address] [id number] [place] [address] Apr, [facility] [place] [facility] [address] [id number] [place] [address] Apr, [facility] [place] [facility] [address] [id number] [place] [address] Apr, [facility] [place] [facility] [address] [id number] [place] [address] 08 Apr, 2014 [facility] [place] [facility] [address] [id number] [place] [address] Mar, [facility] [place] [facility] [address] [id number] [place] [address] Mar, [facility] [place] [facility] [address] [id number] [place] [address] Mar, [facility] [place] [facility] [address] [id number] [place] [address] Mar, [facility] [place] [facility] [address] [id number] [place] [address] Mar, [facility] [place] [facility] [address] [id number] [place] [address] Mar, [facility] [place] [facility] [address] [id number] [place] [address] Mar, [facility] [place] [facility] [address] [id number] [place] [address] Mar, [facility] [place] [facility] [address] [id number] [place] [address] February, [facility] [place] [facility] [address] [id number] [place] [address] February, [facility] [place] [facility] [address] [id number] [place] [address] February, [facility] [place] [facility] [address] [id number] [place] [address] February, [facility] [place] [facility] [address] [id number] [place] [address] February, [facility] [place] [facility] [address] [id number] [place] [address] Jan, [facility] [place] [facility] [address] [id number] [place] [address] Jan, [facility] [place] [facility] [address] [id number] [place] [address] Nov, [facility] [place] [facility] [address] [id number] [place] [address] Nov, [facility] [place] [facility] [address] [id number] [place] [address] Nov, [facility] [place] [facility] [address] [id number] [place] [address] Nov, [facility] [place] [facility] [address] [id number] [place] [address] Nov, [facility] [place] [facility] [address] [id number] [place] [address] Nov, [facility] [place] [facility] [address] [id number] [place] [address] Oct, [facility] [place] [facility] [address] [id number] [place] [address] Oct, [facility] [place] [facility] [address] [id number] [place] [address] Oct, [facility] [place] [facility] [address] [id number] [place] [address] Sep, [facility] [place] [facility] [address] [id number] [place] [address] Sep, [facility] [place] [facility] [address] [id number] [place] [address] Aug, [facility] [place] [facility] [address] [id number] [place] [address] Aug, [facility] [place] [facility] [address] [id number] [place] [address] Aug, [facility] [place] [facility] [address] [id number] [place] [address] Aug, [facility] [place] [facility] [address] [id number] [place] [address] Jul, [facility] [place] [facility] [address] [id number] [place] [address] Jul, [facility] [place] [facility] [address] [id number] [place] [address] Jul, [facility] [place] [facility] [address] [id number] [place] [address] Jul, [facility] [place] [facility] [address] [id number] [place] [address] Jul, [facility] [place] [facility] [address] [id number] [place] [address] Jun, [facility] [place] [facility] [address] [id number] [place] [address] Jun, [facility] [place] [facility] [address] [id number] [place] [address] May, [facility] [place] [facility] [address] [id number] [place] [address] May, [facility] [place] [facility] [address] [id number] [place] [address] May, [facility] [place] [facility] [address] [id number] [place] [address] May, [facility] [place] [facility] [address] [id number] [place] [address] May, [facility] [place] [facility] [address] [id number] [place] [address] May, [facility] [place] [facility] [address] [id number] [place] [address] Apr, [facility] [place] [facility] [address] [id number] [place] [address] Apr, [facility] [place] [facility] [address] [id number] [place] [address] Apr, [facility] [address] [id number] [place] [address] Apr, [facility] [place] [facility] [address] [id number] [place] [address] Apr, [facility] [place] [facility] [address] [id number] [place] [address] Mar, [facility] [place] [facility] [address] [id number] [place] [address] Mar, [facility] [place] [facility] [address] [id number] [place] [address] Mar, [facility] [place] [facility] [address] [id number] [place] [address] February, [facility] [place] [facility] [address] [id number] [place] [address] February, [facility] [place] [facility] [address] [id number] [place] [address] February, [facility] [place] [facility] [address] [id number] [place] [address] Dec, [facility] [place] [facility] [address] [id number] [place] [address] Dec, [facility] [place] [facility] [address] [id number] [place] [address] Dec, [facility] [place] [facility] [address] [id number] [place] [address] Oct, [facility] [place] [facility] [address] [id number] [place] [address] Oct, [facility] [place] [facility] [address] [id number] [place] [address] Sep, [facility] [place] [facility] [address] [id number] [place] [address] Sep, [facility] [place] [facility] [address] [id number] [place] [address] Aug, [facility] [address] [id number] [place] [address] Aug, [facility] [address] [facility] [id number] [place] [address] Aug, [facility] [address] [facility] [id number] [place] [address] Aug, [facility] [address] [facility] [id number] [place] [address] Aug, [facility] [facility] [address] [facility] [id number] [place] [id number] Aug, [facility] [address] [facility] [id number] [place] [address] Jul, [facility] [id number] [address] Jul, [facility] [address] [facility] [id number] [place] [address] Jul, [facility] [id number] [address] Jul, [facility] [id number] [address] Jul, [facility] [id number] [address] Jul, [facility] [address] [facility] [id number] [place] [address] Jun, [facility] [address] [facility] [id number] [place] [address] Jun, [facility] [address] [facility] [id number] [place] [address] 15 Jun, 2012 [facility] [address] [id number] [address] Jun, IMMUNIZATIONS No Known Immunizations SOCIAL HISTORY Never Assessed REASON FOR VISIT Lab (walk-in) PLAN OF CARE VITAL SIGNS MEDICATIONS Unknown Medications RESULTS No Results PROCEDURES Procedure Date Ordered Result Body Site Hemoglobin Test Send Out 0 dollar April 02, 2018 LAB NOT BILLED BY [facility] April 02, 2018 VENIPUNCT, ROUTINE* April 02, 2018 INSTRUCTIONS MEDICATIONS ADMINISTERED No Known Medications [...] infection Aug 26 Hospitalization History [facility]- Flu Sx 12/10/2016 Hospitalization History [facility]- Congestion, runny nose and abd pain 12/21/2017
--- OUTSIDE RECORDS SUMMARY | 2019-03-19 07:27 | XMS REPORT ---
Author Author RENETTA CARDOZA Organization [facility] Address [address] [place] [address] Care Team Providers Care Fondant Cooker Name Role Phone RENETTA CARDOZA Unavailable PROBLEMS Type Condition ICD9-CM Code ASN34-VD Code Onset Dates Condition Status SNOMED Code Problem Tobacco abuse Z72.0 Active 87480805 Problem Other chronic pain G89.29 Active 63394971 Problem Palpitations R00.2 Active 81231479 Problem COPD exacerbation J44.1 Active 073280804 Problem COPD with acute exacerbation J44.1 Active 615123519 Problem Non morbid obesity E66.9 Active 146112596 Problem Non morbid obesity due to excess calories E66.09 Active 086672124 Problem Other obesity due to excess calories E66.09 Active 630040008 Problem Panlobular emphysema J43.1 Active 5762533 Problem Chronic obstructive pulmonary disease, unspecified COPD type J44.9 Active 53646174 Problem LAURY (obstructive sleep apnea) G47.33 Active 68930033 Problem Edema, due to unspecified malnutrition type, unspecified type R60.9 Active 382370091 Problem Hypertension, benign I10 Active 47936182 Problem Coronary artery disease involving ho-chunk heart, angina presence unspecified, unspecified vessel or lesion type I25.10 Active 19329036 Problem Morbid obesity due to excess calories E66.01 Active 340977369 ALLERGIES No Information ENCOUNTERS Encounter Location Date Diagnosis [place] [id number], [place] [address] Jun, [place] [address] [place] [id number] [place] [address] May, Non morbid obesity E66.9 and Grade II hemorrhoids K64.1 [facility] [address], [place] [address] Mar, [place] [id number] [place] [address] 04 Mar, 2018 Cough 786.2 ; Medicare annual wellness visit, initial Z00.00 ; Morbid obesity due to excess calories E66.01 ; Chronic obstructive pulmonary disease, unspecified COPD type J44.9 ; Coronary artery disease involving ho-chunk heart, angina presence unspecified, unspecified vessel or lesion type I25.10 ; Hypertension, benign I10 and LAURY (obstructive sleep apnea) G47.33 [place] [address] [place] [address] [id number] [place] [address] 31 Feb, 2018 Medicare annual wellness visit, initial Z00.00 ; Morbid obesity due to excess calories E66.01 ; Chronic obstructive pulmonary disease, unspecified COPD type J44.9 ; Coronary artery disease involving ho-chunk heart, angina presence unspecified, unspecified vessel or lesion type I25.10 ; Hypertension, benign I10 ; LAURY (obstructive sleep apnea) G47.33 ; Family history of colon cancer Z80.0 ; Other chronic pain G89.29 and Pain in right hip M25.551 [place] [address] [id number] [place] [address] Jan, [place] [id number] [place] [address] Nov, Panlobular emphysema J43.1 [place] [id number] [place] [address] Nov, COPD exacerbation J44.1 [place] [address] [address] [id number] [place] [address] 15 Nov, 2017 Viral URI J06.9 [place] [id number] [place] [address] Nov, [place] [address] [address] [id number] [place] [address] Nov, [place] [id number] [place] [address] Sep, Other obesity due to excess calories E66.09 and Body mass index (BMI) of 36.0-36.9 in adult Z68.36 [place] [id number] [place] [address] Aug, [place] [address] [address] [id number] [place] [address] Aug, [place] [address] [id number] [place] [address] Aug, Coronary artery disease involving ho-chunk heart, angina presence unspecified, unspecified vessel or lesion type I25.10 and Chronic obstructive pulmonary disease, unspecified COPD type J44.9 [facility] [address] [place] [id number] [place] [address] Jul, COPD with acute exacerbation J44.1 [place] [id number] [place] [address] Jul, Non morbid obesity E66.9 [place] [address] [address] [id number] [place] [address] Jun, Panlobular emphysema J43.1 ; Tobacco abuse Z72.0 ; Tobacco abuse counseling Z71.6 and Non morbid obesity E66.9 [place] [id number] [place] [address] Apr, [place] [address] [place] [id number] [place] [address] Apr, [place] [address] [place] [address] [id number] [place] [address] Mar, COPD exacerbation J44.1 [place] [address] [address] [id number] [place] [address] Mar, Tear of medial meniscus of right knee, current, unspecified tear type, initial encounter S83.241A [place] [address] [place] [address] Mar, Pain in right knee M25.561 [facility] [address], [place] [address] February, Pain in right knee M25.561 [facility] [address] [address] [id number] [place] [address] February, Pain in right knee M25.561 [facility] [id number] [place] [address] Dec, [facility] [address] [place] [address] [id number] [place] [address] Nov, [facility] [id number] [place] [address] Nov, Bronchitis J40 and Wheezing R06.2 [place] [address] [place] [id number] [place] [address] Oct, [place] [id number] [place] [address] Oct, [place] [address] [place] [address] [id number] [place] [address] Oct, Non morbid obesity due to excess calories E66.09 ; Other chronic pain G89.29 and Pain in right knee M25.561 [place] [address] [place] [address] [id number] [place] [address] Oct, Non morbid obesity due to excess calories E66.09 ; Other chronic pain G89.29 and Pain in right knee M25.561 [place] [address] [place] [id number] [place] [address] Oct, Pain in right knee M25.561 and Other chronic pain G89.29 [place] [address] [place] [address] [id number] [place] [address] Aug, Encounter for immunization Z23 [facility] [address] [place] [id number] [place] [address] Aug, [place] [address] [place] [address] Aug, [facility] [address] [address] [id number] [place] [address] Jun, Common wart B07.8 [facility] [id number] [place] [address] May, Cellulitis of left elbow L03.114 [place] [address] [address] Mar, Torticollis, acute M43.6 and Leg pain, left M79.605 [place] [address] [address] February, Leg pain, left M79.605 [facility] [address] [id number] [place] [address] Dec, COPD exacerbation J44.1 [place] [address] [place] [address] [id number] [place] [address] Dec, [place] [address] [place] [address] [id number] [place] [address] Oct, Chronic obstructive pulmonary disease, unspecified COPD type J44.9 and Hyperglycemia R73.9 [place] [address] [place] [id number] [place] [address] Sep, Tobacco abuse Z72.0 ; Coronary artery disease involving ho-chunk heart, angina presence unspecified, unspecified vessel or lesion type I25.10 and Morbid obesity due to excess calories E66.01 [place] [address] [place] [id number] [place] [address] Sep, [place] [address] [place] [id number] [place] [address] Sep, Leg pain, left M79.605 [place] [address] [place] [id number] [place] [address] Sep, [place] [address] [place] [id number] [place] [address] Sep, [facility] [address] [address] Aug, Essential (primary) hypertension I10 [facility] [address] [address] Aug, Encounter for immunization Z23 [facility] [address] [address] Aug, [facility] [address] [address] May, Chronic airway obstruction, not elsewhere classified [address] [place] [address] [address] May, [facility] [address] [address] May, [facility] [address] [address] May, Acute bronchitis 466.0 [place] [address] [address] May, [facility] [address] [place] [id number] [place] [address] May, Hyperglycemia 790.29 [facility] [address] [address] Apr, [facility] [address] [place] [id number] [place] [address] Apr, Cough 786.2 ; Hyperglycemia 790.29 and COPD (chronic obstructive pulmonary disease) [address] [place] [address] [place] [id number] [place] [address] Mar, Cough 786.2 ; Elevated glucose 790.29 ; Wheezing 786.07 ; COPD exacerbation 491.21 and Nicotine dependence 305.1 [facility] [address] [place] [address] 16 Mar, 2015 High risk medication use V58.69 [facility] [address], [place] [address] 16 Mar, 2015 High risk medication use V58.69 and Benign hypertension 401.1 [facility] [address] [place] [address] 08 Mar, 2015 [facility] [address], [place] [address] February, [facility] [address] [place] [address] February, [facility] [address], [place] [address] 30 Jan, 2015 [facility] [address], [place] [address] 30 Jan, 2015 Benign hypertension 401.1 [facility] [address], [place] [address] 14 Jan, 2015 [facility] [address], [place] [address] 13 Jan, 2015 [facility] [address], [place] [address] 27 Dec, 2014 [facility] [address], [place] [address] 27 Dec, 2014 [facility] [address], [place] [address] 26 Dec, 2014 [facility] [id number], [place] [address] 18 Dec, 2014 [facility] [address], [place] [address] 18 Dec, 2014 [facility] [address] [id number] [address] 2014 [facility] [place] [facility] [address] [id number] [place] [address] 2014 [facility] [place] [facility] [address] [id number] [place] [address] Dec, [facility] [place] [facility] [address] [id number] [place] [address] Dec, [facility] [place] [facility] [address] [id number] [place] [address] Dec, [facility] [place] [facility] [address] [id number] [place] [address] Dec, [facility] [place] [facility] [address] [id number] [place] [address] Dec, [facility] [place] [facility] [address] [id number] [place] [address] Dec, [facility] [place] [facility] [address] [id number] [place] [address] Dec, [facility] [place] [facility] [address] [id number] [place] [address] Dec, [facility] [place] [facility] [address] [id number] [place] [address] Nov, [facility] [place] [facility] [address] [id number] [place] [address] Nov, [facility] [place] [facility] [address] [id number] [place] [address] Nov, [facility] [place] [facility] [address] [id number] [place] [address] Nov, [facility] [place] [facility] [address] [id number] [place] [address] Oct, [facility] [place] [facility] [address] [id number] [place] [address] Oct, [facility] [place] [facility] [address] [id number] [place] [address] Oct, [facility] [place] [facility] [address] [id number] [place] [address] Oct, [facility] [place] [facility] [address] [id number] [place] [address] Oct, [facility] [place] [facility] [address] [id number] [place] [address] Oct, [facility] [place] [facility] [address] [id number] [place] [address] Oct, [facility] [place] [facility] [address] [id number] [place] [address] Oct, [facility] [place] [facility] [address] [id number] [place] [address] Sep, [facility] [place] [facility] [address] [id number] [place] [address] Sep, [facility] [place] [facility] [address] [id number] [place] [address] Sep, [facility] [place] [facility] [address] [id number] [place] [address] Sep, [facility] [place] [facility] [address] [id number] [place] [address] Sep, [facility] [place] [facility] [address] [id number] [place] [address] Sep, [facility] [place] [facility] [address] [id number] [place] [address] Sep, [facility] [place] [facility] [address] [id number] [place] [address] Sep, [facility] [place] [facility] [address] [id number] [place] [address] Aug, [facility] [place] [facility] [address] [id number] [place] [address] Aug, [facility] [place] [facility] [address] [id number] [place] [address] Aug, [facility] [place] [facility] [address] [id number] [place] [address] Aug, [facility] [place] [facility] [address] [id number] [place] [address] Jul, [facility] [place] [facility] [address] [id number] [place] [address] Jul, [facility] [place] [facility] [address] [id number] [place] [address] Jul, [facility] [place] [facility] [address] [id number] [place] [address] Jul, [facility] [place] [facility] [address] [id number] [place] [address] Jul, [facility] [place] [facility] [address] [id number] [place] [address] Jul, [facility] [place] [facility] [address] [id number] [place] [address] Jul, [facility] [place] [facility] [address] [id number] [place] [address] Jul, [facility] [place] [facility] [address] [id number] [place] [address] Jul, [facility] [place] [facility] [address] [id number] [place] [address] Jul, [facility] [place] [facility] [address] [id number] [place] [address] Jul, [facility] [place] [facility] [address] [id number] [place] [address] Jul, [facility] [place] [facility] [address] [id number] [place] [address] 15 Jul, 2014 [facility] [place] [facility] [address] [id number] [place] [address] Jul, [facility] [place] [facility] [address] [id number] [place] [address] Jul, [facility] [place] [facility] [address] [id number] [place] [address] Jul, [facility] [place] [facility] [address] [id number] [place] [address] Jul, [facility] [place] [facility] [address] [id number] [place] [address] Jul, [facility] [place] [facility] [address] [id number] [place] [address] Jul, [facility] [place] [facility] [address] [id number] [place] [address] Jul, [facility] [place] [facility] [address] [id number] [place] [address] Jul, [facility] [place] [facility] [address] [id number] [place] [address] Jul, [facility] [place] [facility] [address] [id number] [place] [address] 29 Jun, 2013 [facility] [place] [facility] [address] [id number] [place] [address] 29 Jun, 2013 [facility] [place] [facility] [address] [id number] [address] 17 Jun, 2013 [facility] [place] [facility] [address] [id number], [place] [address] 17 Sep, 2013 [facility] [place] [facility] [address] [id number] [place] [address] 05 Sep, 2013 [facility] [place] [facility] [address] [id number] [place] [address] 05 Sep, 2013 [facility] [place] [facility] [address] [facility] [id number] [address] 04 Sep, 2013 [facility] [place] [facility] [address] [id number], [place] [address] Jun, [facility] [place] [facility] [address] [id number] [place] [address] Jun, [facility] [place] [facility] [address] [id number] [place] [address] Jun, [facility] [place] [facility] [address] [id number] [place] [address] May, [facility] [place] [facility] [address] [id number] [place] [address] May, [facility] [place] [facility] [address] [id number] [place] [address] May, [facility] [place] [facility] [address] [id number] [place] [address] May, [facility] [place] [facility] [address] [id number] [place] [address] May, [facility] [place] [facility] [address] [id number] [place] [address] May, [facility] [place] [facility] [address] [id number] [place] [address] May, [facility] [place] [facility] [address] [id number] [place] [address] May, [facility] [place] [facility] [address] [id number] [place] [address] Apr, [facility] [place] [facility] [address] [id number] [place] [address] Apr, [facility] [place] [facility] [address] [id number] [place] [address] Apr, [facility] [place] [facility] [address] [id number] [place] [address] Apr, [facility] [place] [facility] [address] [id number] [place] [address] Apr, [facility] [place] [facility] [address] [id number] [place] [address] 08 Apr, 2014 [facility] [place] [facility] [address] [id number] [place] [address] Mar, [facility] [place] [facility] [address] [id number] [place] [address] Mar, [facility] [place] [facility] [address] [id number] [place] [address] Mar, [facility] [place] [facility] [address] [id number] [place] [address] Mar, [facility] [place] [facility] [address] [id number] [place] [address] Mar, [facility] [place] [facility] [address] [id number] [place] [address] Mar, [facility] [place] [facility] [address] [id number] [place] [address] Mar, [facility] [place] [facility] [address] [id number] [place] [address] Mar, [facility] [place] [facility] [address] [id number] [place] [address] February, [facility] [place] [facility] [address] [id number] [place] [address] February, [facility] [place] [facility] [address] [id number] [place] [address] February, [facility] [place] [facility] [address] [id number] [place] [address] February, [facility] [place] [facility] [address] [id number] [place] [address] February, [facility] [place] [facility] [address] [id number] [place] [address] Jan, [facility] [place] [facility] [address] [id number] [place] [address] Jan, [facility] [place] [facility] [address] [id number] [place] [address] Nov, [facility] [place] [facility] [address] [id number] [place] [address] Nov, [facility] [place] [facility] [address] [id number] [place] [address] Nov, [facility] [place] [facility] [address] [id number] [place] [address] Nov, [facility] [place] [facility] [address] [id number] [place] [address] Nov, [facility] [place] [facility] [address] [id number] [place] [address] Nov, [facility] [place] [facility] [address] [id number] [place] [address] Oct, [facility] [place] [facility] [address] [id number] [place] [address] Oct, [facility] [place] [facility] [address] [id number] [place] [address] Oct, [facility] [place] [facility] [address] [id number] [place] [address] Sep, [facility] [place] [facility] [address] [id number] [place] [address] Sep, [facility] [place] [facility] [address] [id number] [place] [address] Aug, [facility] [place] [facility] [address] [id number] [place] [address] Aug, [facility] [place] [facility] [address] [id number] [place] [address] Aug, [facility] [place] [facility] [address] [id number] [place] [address] Aug, [facility] [place] [facility] [address] [id number] [place] [address] Jul, [facility] [place] [facility] [address] [id number] [place] [address] Jul, [facility] [place] [facility] [address] [id number] [place] [address] Jul, [facility] [place] [facility] [address] [id number] [place] [address] Jul, [facility] [place] [facility] [address] [id number] [place] [address] Jul, [facility] [place] [facility] [address] [id number] [place] [address] Jun, [facility] [place] [facility] [address] [id number] [place] [address] Jun, [facility] [place] [facility] [address] [id number] [place] [address] May, [facility] [place] [facility] [address] [id number] [place] [address] May, [facility] [place] [facility] [address] [id number] [place] [address] May, [facility] [place] [facility] [address] [id number] [place] [address] May, [facility] [place] [facility] [address] [id number] [place] [address] May, [facility] [place] [facility] [address] [id number] [place] [address] May, [facility] [place] [facility] [address] [id number] [place] [address] Apr, [facility] [place] [facility] [address] [id number] [place] [address] Apr, [facility] [place] [facility] [address] [id number] [place] [address] Apr, [facility] [address] [id number] [place] [address] Apr, [facility] [place] [facility] [address] [id number] [place] [address] Apr, [facility] [place] [facility] [address] [id number] [place] [address] Mar, [facility] [place] [facility] [address] [id number] [place] [address] Mar, [facility] [place] [facility] [address] [id number] [place] [address] Mar, [facility] [place] [facility] [address] [id number] [place] [address] February, [facility] [place] [facility] [address] [id number] [place] [address] February, [facility] [place] [facility] [address] [id number] [place] [address] February, [facility] [place] [facility] [address] [id number] [place] [address] Dec, [facility] [place] [facility] [address] [id number] [place] [address] Dec, [facility] [place] [facility] [address] [id number] [place] [address] Dec, [facility] [place] [facility] [address] [id number] [place] [address] Oct, [facility] [place] [facility] [address] [id number] [place] [address] Oct, [facility] [place] [facility] [address] [id number] [place] [address] Sep, [facility] [place] [facility] [address] [id number] [place] [address] Sep, [facility] [address] [id number], [place] [address] Aug, [facility] [address] [id number], [place] [address] Aug, [facility] [address] [facility] [id number], [place] [address] Aug, [facility] [address] [facility] [id number], [place] [address] Aug, [facility] [address] [facility] [id number], [place] [address] Aug, [facility] [address] [facility] [id number] [place] [id number] Aug, [facility] [address] [facility] [id number], [place] [address] Jul, [facility] [id number], [place] [address] Jul, [facility] [address] [facility] [id number], [place] [address] Jul, [facility] [id number], [place] [address] Jul, [facility] [address] [id number], [place] [address] Jul, [facility] [id number], [place] [address] Jul, [facility] [address] [facility] [id number], [place] [address] Jun, [facility] [address] [facility] [id number], [place] [address] Jun, [facility] [address] [facility] [id number], [place] [address] 15 Jun, 2012 [facility] [address] [id number], [place] [address] Jun, IMMUNIZATIONS No Known Immunizations SOCIAL HISTORY Never Assessed REASON FOR VISIT med request PLAN OF CARE VITAL SIGNS MEDICATIONS Medication Instructions Dosage Frequency Start Date End Date Duration Status Atorvastatin Calcium 40 mg Orally Once a day 1 tablet 24h Mar, 30 day(s) Active RESULTS No Results PROCEDURES [...] Colonoscopy 04/2018 Hospitalization History surgeries Hospitalization History [facility]- Viral infection Aug 26 Hospitalization History [facility]- Flu Sx 12/10/2016 Hospitalization History [facility]- Congestion, runny nose and abd pain 12/21/2017
--- OUTSIDE RECORDS SUMMARY | 2019-03-19 07:28 | XMS REPORT ---
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 Name Role Phone RENETTA CARDOZA Unavailable PROBLEMS Type Condition ICD9-CM Code PDV46-RJ Code Onset Dates Condition Status SNOMED Code Problem Tobacco abuse Z72.0 Active 36420158 Problem Other chronic pain G89.29 Active 19335019 Problem Palpitations R00.2 Active 64405057 Problem COPD exacerbation J44.1 Active 603028586 Problem COPD with acute exacerbation J44.1 Active 517059306 Problem Non morbid obesity E66.9 Active 536941592 Problem Non morbid obesity due to excess calories E66.09 Active 194624511 Problem Other obesity due to excess calories E66.09 Active 046438830 Problem Panlobular emphysema J43.1 Active 6425258 Problem Chronic obstructive pulmonary disease, unspecified COPD type J44.9 Active 72462776 Problem LAURY (obstructive sleep apnea) G47.33 Active 52309294 Problem Edema, due to unspecified malnutrition type, unspecified type R60.9 Active 481114080 Problem Hypertension, benign I10 Active 00179457 Problem Coronary artery disease involving teller heart, angina presence unspecified, unspecified vessel or lesion type I25.10 Active 08764923 Problem Morbid obesity due to excess calories E66.01 Active 682866558 ALLERGIES Substance Reaction Event Type Date Status Diclofenac Unknown Drug Allergy February, Active ENCOUNTERS Encounter Location Date Diagnosis [facility] [address] [facility] [id number] [address] Jun, [facility] [address] [id number] [address] May, Non morbid obesity E66.9 and Grade II hemorrhoids K64.1 [facility] [address] [facility] [id number] [place] [address] Mar, [place] [id number] [place] [address] Mar, Cough 786.2 ; Medicare annual wellness visit, initial Z00.00 ; Morbid obesity due to excess calories E66.01 ; Chronic obstructive pulmonary disease, unspecified COPD type J44.9 ; Coronary artery disease involving teller heart, angina presence unspecified, unspecified vessel or lesion type I25.10 ; Hypertension, benign I10 and LAURY (obstructive sleep apnea) G47.33 [place] [id number] [place] [address] February, Medicare annual wellness visit, initial Z00.00 ; Morbid obesity due to excess calories E66.01 ; Chronic obstructive pulmonary disease, unspecified COPD type J44.9 ; Coronary artery disease involving teller heart, angina presence unspecified, unspecified vessel or lesion type I25.10 ; Hypertension, benign I10 ; LAURY (obstructive sleep apnea) G47.33 ; Family history of colon cancer Z80.0 ; Other chronic pain G89.29 and Pain in right hip M25.551 [place] [address] [address] Jan, [place] [address] [address] Nov, Panlobular emphysema J43.1 [place] [id number] [place] [address] Nov, COPD exacerbation J44.1 [place] [id number] [place] [address] Nov, Viral URI J06.9 [place] [address] [address] Nov, [place] [address] [address] Nov, [place] [address] [address] Sep, Other obesity due to excess calories E66.09 and Body mass index (BMI) of 36.0-36.9 in adult Z68.36 [place] [id number] [place] [address] Aug, [place] [id number] [place] [address] Aug, [place] [address] [address] Aug, Coronary artery disease involving teller heart, angina presence unspecified, unspecified vessel or lesion type I25.10 and Chronic obstructive pulmonary disease, unspecified COPD type J44.9 [facility] [id number] [place] [address] Jul, COPD with acute exacerbation J44.1 [place] [id number] [place] [address] Jul, Non morbid obesity E66.9 [place] [id number] [place] [address] Jun, Panlobular emphysema J43.1 ; Tobacco abuse Z72.0 ; Tobacco abuse counseling Z71.6 and Non morbid obesity E66.9 [place] [id number] [place] [address] Apr, [place] [id number] [place] [address] Apr, [place] [id number] [place] [address] Mar, COPD exacerbation J44.1 [place] [id number] [place] [address] Mar, Tear of medial meniscus of right knee, current, unspecified tear type, initial encounter S83.241A [place] [address] [address] Mar, Pain in right knee M25.561 [facility] [id number] [address] February, Pain in right knee M25.561 [facility] [id number] [place] [address] February, Pain in right knee M25.561 [facility] [id number] [place] [address] Dec, [facility] [id number] [place] [address] Nov, [facility] [id number] [place] [address] Nov, Bronchitis J40 and Wheezing R06.2 [place] [id number] [place] [address] Oct, [facility] [id number] [place] [address] Oct, [facility] [id number] [place] [address] Oct, Non morbid obesity due to excess calories E66.09 ; Other chronic pain G89.29 and Pain in right knee M25.561 [facility] [id number] [place] [address] Oct, Non morbid obesity due to excess calories E66.09 ; Other chronic pain G89.29 and Pain in right knee M25.561 [place] [id number] [place] [address] Oct, Pain in right knee M25.561 and Other chronic pain G89.29 [place] [id number] [place] [address] Aug, Encounter for immunization Z23 [facility] [id number] [place] [address] Aug, [place] [id number] [place] [address] Aug, [place] [address] [address] Jun, Common wart B07.8 [facility] [address] [address] May, Cellulitis of left elbow L03.114 [place] [address] [address] Mar, Torticollis, acute M43.6 and Leg pain, left M79.605 [place] [address] [address] February, Leg pain, left M79.605 [facility] [address] [address] Dec, COPD exacerbation J44.1 [place] [address] [address] Dec, [place] [address] [address] Oct, Chronic obstructive pulmonary disease, unspecified COPD type J44.9 and Hyperglycemia R73.9 [place] [id number] [place] [address] Sep, Tobacco abuse Z72.0 ; Coronary artery disease involving teller heart, angina presence unspecified, unspecified vessel or lesion type I25.10 and Morbid obesity due to excess calories E66.01 [place] [id number] [place] [address] Sep, [place] [address] [address] Sep, Leg pain, left M79.605 [place] [address] [address] Sep, [facility] [id number] [place] [address] Sep, [facility] [id number] [place] [address] Aug, Essential (primary) hypertension I10 [facility] [address] [address] Aug, Encounter for immunization Z23 [facility] [address] [address] Aug, [facility] [address] [address] May, Chronic airway obstruction, not elsewhere classified 496 [facility] [id number] [place] [address] May, [facility] [address] [address] May, [facility] [id number] [place] [address] May, Acute bronchitis 466.0 [facility] [address] [address] May, [facility] [id number] [place] [address] May, Hyperglycemia 790.29 [facility] [id number] [place] [address] Apr, [facility] [id number] [place] [address] Apr, Cough 786.2 ; Hyperglycemia 790.29 and COPD (chronic obstructive pulmonary disease) [address] [facility] [id number] [place] [address] Mar, Cough 786.2 ; Elevated glucose 790.29 ; Wheezing 786.07 ; COPD exacerbation 491.21 and Nicotine dependence 305.1 [facility] [address] [address] 16 Mar, 2015 High risk medication use V58.69 [facility] [address] [address] 16 Mar, 2015 High risk medication use V58.69 and Benign hypertension 401.1 [facility] [address] [address] 08 Mar, 2015 [facility] [address] [address] February, [facility] [id number] [place] [address] February, [facility] [address] [address] 30 Jan, 2015 [facility] [id number] [place] [address] 30 Jan, 2015 Benign hypertension 401.1 [facility] [address] [address] 14 Jan, 2015 [facility] [address] [address] 13 Jan, 2015 [facility] [address] [address] 27 Dec, 2014 [facility] [address] [address] 27 Dec, 2014 [facility] [address] [address] 26 Dec, 2014 [facility] [address] [address] 18 Dec, 2014 [facility] [address] [address] 18 Dec, 2014 [facility] [address] [address] Dec, [facility] [place] [facility] [address] [id number] [place] [address] Dec, [facility] [place] [facility] [address] [id number] [place] [address] Dec, [facility] [place] [facility] [address] [id number] [place] [address] Dec, [facility] [place] [facility] [address] [id number] [place] [address] Dec, [facility] [place] [facility] [address] [id number] [place] [address] Dec, [facility] [place] [facility] [address] [id number] [place] [address] Dec, [facility] [place] [facility] [address] [id number] [place] [address] Dec, [facility] [place] [facility] [address] [id number] [place] [address] Dec, [facility] [place] [facility] [address] [id number] [place] [address] Dec, [facility] [place] [facility] [address] [id number] [place] [address] Nov, [facility] [place] [facility] [address] [id number] [place] [address] Nov, [facility] [place] [facility] [address] [id number] [place] [address] Nov, [facility] [place] [facility] [address] [id number] [place] [address] Nov, [facility] [place] [facility] [address] [id number] [place] [address] Oct, [facility] [place] [facility] [address] [id number] [place] [address] Oct, [facility] [place] [facility] [address] [id number] [place] [address] Oct, [facility] [address] [id number] [place] [address] Oct, [facility] [place] [facility] [address] [id number] [place] [address] Oct, [facility] [address] [id number] [place] [address] Oct, [facility] [address] [id number] [place] [address] Oct, [facility] [address] [id number] [place] [address] Oct, [facility] [address] [id number] [place] [address] Sep, [facility] [address] [id number] [place] [address] Sep, [facility] [address] [id number] [place] [address] Sep, [facility] [address] [id number] [place] [address] Sep, [facility] [address] [id number] [place] [address] Sep, [facility] [place] [facility] [address] [id number] [place] [address] Sep, [facility] [place] [facility] [address] [id number] [place] [address] Sep, [facility] [place] [facility] [address] [id number] [place] [address] Sep, [facility] [place] [facility] [address] [id number] [place] [address] Aug, [facility] [place] [facility] [address] [id number] [place] [address] Aug, [facility] [place] [facility] [address] [id number] [place] [address] Aug, [facility] [place] [facility] [address] [id number] [place] [address] Aug, [facility] [place] [facility] [address] [id number] [place] [address] Jul, [facility] [place] [facility] [address] [id number] [place] [address] Jul, [facility] [place] [facility] [address] [id number] [place] [address] Jul, [facility] [place] [facility] [address] [id number] [place] [address] Jul, [facility] [place] [facility] [address] [id number] [place] [address] Jul, [facility] [place] [facility] [address] [id number] [place] [address] Jul, [facility] [place] [facility] [address] [id number] [place] [address] Jul, [facility] [place] [facility] [address] [id number] [place] [address] Jul, [facility] [place] [facility] [address] [id number] [place] [address] Jul, [facility] [place] [facility] [address] [id number] [place] [address] Jul, [facility] [place] [facility] [address] [id number] [place] [address] Jul, [facility] [place] [facility] [address] [id number] [place] [address] Jul, [facility] [place] [facility] [address] [id number] [place] [address] Jul, [facility] [place] [facility] [address] [id number] [place] [address] Jul, 2013 [facility] [place] [facility] [address] [id number] [place] [address] Jul, 2013 [facility] [place] [facility] [address] [id number] [place] [address] Jul, 2013 [facility] [place] [facility] [address] [facility] [id number] [place] [address] Jul, 2013 [facility] [place] [facility] [address] [id number] [place] [address] Jul, 2013 [facility] [place] [facility] [address] [id number] [place] [address] Jul, [facility] [place] [facility] [address] [id number] [place] [address] Jul, [facility] [place] [facility] [address] [facility] [id number] [place] [address] Jul, [facility] [place] [facility] [address] [id number] [place] [address] Jul, [facility] [place] [facility] [address] [facility] [id number] [place] [address] 29 Sep, 2013 [facility] [place] [facility] [address] [facility] [id number] [place] [address] 29 Sep, 2013 [facility] [place] [facility] [address] [facility] [id number] [place] [address] 17 Sep, 2013 [facility] [place] [facility] [address] [id number] [place] [address] 17 Sep, 2013 [facility] [place] [facility] [address] [id number] [place] [address] 05 Sep, 2013 [facility] [place] [facility] [address] [facility] [id number] [place] [address] 05 Sep, 2013 [facility] [place] [facility] [address] [facility] [id number] [place] [address] 04 Sep, 2013 [facility] [place] [facility] [address] [id number] [place] [address] Jun, [facility] [place] [facility] [address] [id number] [place] [address] Jun, [facility] [place] [facility] [address] [id number] [place] [address] Jun, [facility] [place] [facility] [address] [id number] [place] [address] May, [facility] [place] [facility] [address] [id number] [place] [address] May, [facility] [place] [facility] [address] [id number] [place] [address] May, [facility] [place] [facility] [address] [id number] [place] [address] May, [facility] [place] [facility] [address] [id number] [place] [address] May, [facility] [place] [facility] [address] [id number] [place] [address] May, [facility] [place] [facility] [address] [id number] [place] [address] May, [facility] [place] [facility] [address] [id number] [place] [address] May, [facility] [place] [facility] [address] [id number] [place] [address] Apr, [facility] [place] [facility] [address] [id number] [place] [address] Apr, [facility] [place] [facility] [address] [id number] [place] [address] Apr, [facility] [place] [facility] [address] [id number] [place] [address] Apr, [facility] [place] [facility] [address] [id number] [place] [address] Apr, [facility] [place] [facility] [address] [id number] [place] [address] Apr, [facility] [place] [facility] [address] [id number] [place] [address] Mar, [facility] [place] [facility] [address] [id number] [place] [address] Mar, [facility] [place] [facility] [address] [id number] [place] [address] Mar, [facility] [place] [facility] [address] [id number] [place] [address] Mar, [facility] [place] [facility] [address] [id number] [place] [address] Mar, [facility] [place] [facility] [address] [id number] [place] [address] Mar, [facility] [place] [facility] [address] [id number] [place] [address] Mar, [facility] [place] [facility] [address] [id number] [place] [address] Mar, [facility] [place] [facility] [address] [id number] [place] [address] February, [facility] [place] [facility] [address] [id number] [place] [address] February, [facility] [place] [facility] [address] [id number] [place] [address] February, [facility] [place] [facility] [address] [id number] [place] [address] February, [facility] [place] [facility] [address] [id number] [place] [address] February, [facility] [place] [facility] [address] [id number] [place] [address] Jan, [facility] [place] [facility] [address] [id number] [place] [address] Jan, [facility] [address] [id number] [place] [address] Nov, [facility] [place] [facility] [address] [id number] [place] [address] Nov, [facility] [place] [facility] [address] [id number] [place] [address] Nov, [facility] [place] [facility] [address] [id number] [place] [address] Nov, [facility] [place] [facility] [address] [id number] [place] [address] Nov, [facility] [place] [facility] [address] [id number] [place] [address] Nov, [facility] [place] [facility] [address] [id number] [place] [address] Oct, [facility] [place] [facility] [address] [id number] [place] [address] Oct, [facility] [place] [facility] [address] [facility] [id number] [place] [address] Oct, [facility] [place] [facility] [address] [facility] [id number] [place] [address] Sep, [facility] [place] [facility] [address] [id number] [place] [address] Sep, [facility] [place] [facility] [address] [id number] [place] [address] Aug, [facility] [place] [facility] [address] [id number] [place] [address] Aug, [facility] [place] [facility] [address] [id number] [place] [address] Aug, [facility] [place] [facility] [address] [id number] [place] [address] Aug, [facility] [place] [facility] [address] [id number] [place] [address] Jul, [facility] [place] [facility] [address] [id number] [place] [address] Jul, [facility] [place] [facility] [address] [id number] [place] [address] Jul, [facility] [place] [facility] [address] [id number] [place] [address] Jul, [facility] [place] [facility] [address] [id number] [place] [address] Jul, [facility] [place] [facility] [address] [id number] [place] [address] Jun, [facility] [place] [facility] [address] [id number] [place] [address] Jun, [facility] [place] [facility] [address] [id number] [place] [address] May, [facility] [place] [facility] [address] [id number] [place] [address] May, [facility] [place] [facility] [address] [id number] [place] [address] May, [facility] [place] [facility] [address] [id number] [place] [address] May, [facility] [place] [facility] [address] [id number] [place] [address] May, [facility] [place] [facility] [address] [id number] [place] [address] May, [facility] [place] [facility] [address] [id number] [place] [address] Apr, [facility] [place] [facility] [address] [id number] [place] [address] Apr, [facility] [place] [facility] [address] [id number] [place] [address] 24 Apr, [facility] [address] [id number] [place] [address] Apr, [facility] [place] [facility] [address] [id number] [place] [address] Apr, [facility] [address] [id number] [place] [address] Mar, [facility] [place] [facility] [address] [id number] [place] [address] Mar, [facility] [place] [facility] [address] [id number] [place] [address] Mar, [facility] [place] [facility] [address] [id number] [place] [address] February, [facility] [address] [id number] [place] [address] February, [facility] [place] [facility] [address] [id number] [place] [address] February, [facility] [address] [id number] [place] [address] Dec, [facility] [place] [facility] [address] [id number] [place] [address] Dec, [facility] [place] [facility] [address] [id number] [place] [address] Dec, [facility] [place] [facility] [address] [id number] [place] [address] Oct, [facility] [place] [facility] [address] [id number] [place] [address] Oct, [facility] [place] [facility] [address] [id number] [place] [address] Sep, [facility] [place] [facility] [address] [id number] [place] [address] Sep, [facility] [place] [facility] [address] [id number] [place] [address] Aug, [facility] [place] [facility] [address] [id number] [place] [address] Aug, [facility] [place] [facility] [address] [id number] [place] [address] Aug, [facility] [place] [facility] [address] [id number] [place] [address] Aug, [facility] [place] [facility] [address] [id number] [place] [address] Aug, [facility] [place] [facility] [address] [id number] [place] [address] Aug, [facility] [place] [facility] [address] [id number] [place] [address] Jul, [facility] [place] [facility] [address] [id number] [place] [address] Jul, [facility] [place] [facility] [address] [id number] [place] [address] Jul, [facility] [place] [facility] [address] [id number] [place] [address] Jul, [facility] [place] [facility] [address] [id number] [place] [address] Jul, [facility] [place] [facility] [address] [id number] [place] [address] Jul, [facility] [place] [facility] [address] [id number] [place] [address] Jun, [facility] [place] [facility] [address] [id number] [place] [address] 21 Jun, 2012 [facility] [place] [facility] [address] [id number] [place] [address] 15 Jun, 2012 [facility] [place] [facility] [address] [id number] [place] [address] Jun, IMMUNIZATIONS No Known Immunizations SOCIAL HISTORY Never Assessed REASON FOR VISIT Medicare AWV - Initial Visit PLAN OF CARE Activity Details Future/Pending Procedure JOINT INJECTION-LARGE JOINT VITAL SIGNS Height 72 in 2018-03-29 Weight 265.2 lbs 2018-03-29 Temperature 97.9 degrees Fahrenheit 2018-03-29 Heart Rate 88 bpm 2018-03-29 Respiratory Rate 22 2018-03-29 Oximetry on room air:95 % 2018-03-29 BMI 35.96 kg/m2 2018-03-29 MEDICATIONS Medication Instructions Dosage Frequency Start Date End Date Duration Status Topamax 50 mg Orally Twice a day 1 tablet 12h Oct, 30 day(s) Active Protonix 40 MG Orally Once a day 1 tablet 24h 30 Active Albuterol Sulfate (2.5 MG/3ML) 0.083% Inhalation every 6 hrs as directed 6h 16 Aug, 2017 Active Toprol XL 100 MG TAKE ONE TABLET BY MOUTH ONCE DAILY 90 Active Aspirin 81 MG Orally Once a day take 1 tablet (81 mg) by oral route once daily 24h 20 Aug, 2013 90 days Active Incruse Ellipta 62.5 MCG/INH Inhalation Once a day 1 puff 24h 30 Mar, 2017 Active Phenytoin Sodium Extended 100 MG TAKE TWO CAPSULES BY MOUTH TWICE DAILY 45 Active Hydrochlorothiazide 25 MG Orally Once a day TAKE ONE TABLET BY MOUTH ONCE DAILY 24h 90 Active Ipratropium-Albuterol 0.5-2.5 (3) MG/3ML Inhalation every 6 hrs 3 ml 6h Nov, Active Cialis 20 mg Orally Once a day 1 tablet 24h Jul, Active PredniSONE 20 mg Orally Once a day x 5 days then 1 tab daily x 5 days. 2 tablets Nov, Not-Taking Ventolin HFA 108 (90 Base) MCG/ACT Inhalation 4 times a day 2 puffs as needed 6h Nov, 30 days Active RESULTS No Results PROCEDURES Procedure Date Ordered Result Body Site [facility] VISIT IPPE/AWV March 29, 2018 ANNUAL NADIR VST; PERSNL PPS INIT March 29, 2018 PT TOBACCO SCREEN RCVD TLK March 29, 2018 FALL RISK ASSESSMENT DOCD March 29, 2018 DRAIN/INJECT, JOINT/BURSA March 29, 2018 NEG SCR D PT NOT ELIG F/U/PLN DOC March 29, 2018 INSTRUCTIONS MEDICATIONS ADMINISTERED No Known Medications [...] Viral infection Aug 26 Hospitalization History [facility]- Flu Sx 12/10/2016 Hospitalization History [facility]- Congestion, runny nose and abd pain 12/21/2017
--- OUTSIDE RECORDS SUMMARY | 2019-03-19 07:28 | XMS REPORT ---
Author Author RENETTA CARDOZA Organization [facility] Address [address] [place] [address] Care Team Providers Care Wireless Technician Name Role Phone RENETTA CARDOZA Unavailable PROBLEMS Type Condition ICD9-CM Code IWM67-RR Code Onset Dates Condition Status SNOMED Code Problem Tobacco abuse Z72.0 Active 29989703 Problem Other chronic pain G89.29 Active 06245890 Problem Palpitations R00.2 Active 13004875 Problem COPD exacerbation J44.1 Active 798668086 Problem COPD with acute exacerbation J44.1 Active 013327674 Problem Non morbid obesity E66.9 Active 370307432 Problem Non morbid obesity due to excess calories E66.09 Active 054605525 Problem Other obesity due to excess calories E66.09 Active 624069060 Problem Panlobular emphysema J43.1 Active 6540282 Problem Chronic obstructive pulmonary disease, unspecified COPD type J44.9 Active 58027088 Problem LAURY (obstructive sleep apnea) G47.33 Active 65660374 Problem Edema, due to unspecified malnutrition type, unspecified type R60.9 Active 659748910 Problem Hypertension, benign I10 Active 96528502 Problem Coronary artery disease involving [place] heart, angina presence unspecified, unspecified vessel or lesion type I25.10 Active 18364287 Problem Morbid obesity due to excess calories E66.01 Active 037068947 ALLERGIES No Information ENCOUNTERS Encounter Location Date Diagnosis [facility] [address] [facility] [id number] [address] May, [facility] [address] [id number] [address] Mar, [facility] [address] [facility] [id number], [place] [address] Mar, Cough 786.2 ; Medicare annual wellness visit, initial Z00.00 ; Morbid obesity due to excess calories E66.01 ; Chronic obstructive pulmonary disease, unspecified COPD type J44.9 ; Coronary artery disease involving [place] heart, angina presence unspecified, unspecified vessel or lesion type I25.10 ; Hypertension, benign I10 and LAURY (obstructive sleep apnea) G47.33 [place] [id number] [place] [address] February, Medicare annual wellness visit, initial Z00.00 ; Morbid obesity due to excess calories E66.01 ; Chronic obstructive pulmonary disease, unspecified COPD type J44.9 ; Coronary artery disease involving [place] heart, angina presence unspecified, unspecified vessel or lesion type I25.10 ; Hypertension, benign I10 ; LAURY (obstructive sleep apnea) G47.33 ; Family history of colon cancer Z80.0 ; Other chronic pain G89.29 and Pain in right hip M25.551 [place] [address] [address] Jan, [address] [address] Nov, Panlobular emphysema J43.[address] [address] Nov, COPD exacerbation J44.1 [place] [id number] [place] [address] Nov, Viral URI J06.9 [place] [address] [address] Nov, [place] [address] [address] Nov, [place] [address] [address] Sep, Other obesity due to excess calories E66.09 and Body mass index (BMI) of 36.0-36.9 in adult Z68.[address] [address] Aug, [facility] [address], [place] [address] Aug, [facility] [id number] [place] [address] Aug, Coronary artery disease involving [place] heart, angina presence unspecified, unspecified vessel or lesion type I25.10 and Chronic obstructive pulmonary disease, unspecified COPD type J44.9 [facility] [id number] [place] [address] Jul, COPD with acute exacerbation J44.1 [facility] [id number] [place] [address] Jul, Non morbid obesity E66.9 [facility] [id number] [place] [address] Jun, Panlobular emphysema J43.1 ; Tobacco abuse Z72.0 ; Tobacco abuse counseling Z71.6 and Non morbid obesity E66.9 [facility] [id number] [place] [address] Apr, [facility] [id number] [place] [address] Apr, [facility] [id number] [place] [address] Mar, COPD exacerbation J44.1 [facility] [id number] [place] [address] Mar, Tear of medial meniscus of right knee, current, unspecified tear type, initial encounter S83.241A [facility] [id number] [place] [address] Mar, Pain in right knee M25.561 [facility] [address], [place] [address] February, Pain in right knee M25.561 [facility] [id number] [place] [address] February, Pain in right knee M25.561 [facility] [id number] [place] [address] Dec, [facility] [id number] [place] [address] Nov, [facility] [address] [address] Nov, Bronchitis J40 and Wheezing R06.2 [facility] [address] [address] Oct, [place] [address] [address] Oct, [place] [address] [address] Oct, Non morbid obesity due to excess calories E66.09 ; Other chronic pain G89.29 and Pain in right knee M25.561 [facility] [id number] [place] [address] Oct, Non morbid obesity due to excess calories E66.09 ; Other chronic pain G89.29 and Pain in right knee M25.561 [place] [id number] [place] [address] Oct, Pain in right knee M25.561 and Other chronic pain G89.29 [facility] [id number] [place] [address] Aug, Encounter for immunization Z23 [place] [address] [address] Aug, [facility] [id number] [place] [address] Aug, [facility] [address] [address] Jun, Common wart B07.[address] [facility] [id number] [place] [address] May, Cellulitis of left elbow L03.114 [facility] [id number] [place] [address] Mar, Torticollis, acute M43.6 and Leg pain, left M79.605 [place] [address] [address] February, Leg pain, left M79.[address] [facility] [id number] [place] [address] Dec, COPD exacerbation J44.1 [place] [id number] [place] [address] Dec, [place] [address] [address] Oct, Chronic obstructive pulmonary disease, unspecified COPD type J44.9 and Hyperglycemia R73.9 [place] [id number] [place] [address] Sep, Tobacco abuse Z72.0 ; Coronary artery disease involving [place] heart, angina presence unspecified, unspecified vessel or lesion type I25.10 and Morbid obesity due to excess calories E66.01 [place] [id number] [place] [address] Sep, [place] [id number] [place] [address] Sep, Leg pain, left M79.605 [place] [address] [address] Sep, [place] [id number] [place] [address] Sep, [place] [address] [address] Aug, Essential (primary) hypertension I10 [facility] [id number] [place] [address] Aug, Encounter for immunization Z23 [facility] [address] [address] Aug, [facility] [address] [address] May, Chronic airway obstruction, not elsewhere classified 496 [facility] [address] [address] May, [facility] [address] [address] May, [facility] [address] [address] May, Acute bronchitis 466.0 [place] [address] [address] May, [facility] [address] [address] May, Hyperglycemia 790.29 [facility] [address] [address] Apr, [facility] [address] [address] Apr, Cough 786.2 ; Hyperglycemia 790.29 and COPD (chronic obstructive pulmonary disease) 496 [facility] [id number] [place] [address] 30 Mar, 2015 Cough 786.2 ; Elevated glucose 790.29 ; Wheezing 786.07 ; COPD exacerbation 491.21 and Nicotine dependence 305.1 [facility] [id number] [place] [address] 16 Mar, 2015 High risk medication use V58.69 [facility] [address] [address] Mar, High risk medication use V58.69 and Benign hypertension 401.1 [facility] [address], [place] [address] 08 Mar, 2015 [facility] [id number], [place] [address] February, [facility] [id number] [place] [address] February, [facility] [address] [facility] [id number] [place] [address] Jan, [facility] [id number] [place] [address] 30 Jan, 2015 Benign hypertension 401.1 [facility] [address] [place] [address] 14 Jan, 2015 [facility] [id number] [place] [address] Jan, [facility] [address], [place] [address] 27 Dec, 2014 [facility] [id number] [place] [address] 27 Dec, 2014 [facility] [address], [place] [address] 26 Dec, 2014 [facility] [id number], [place] [address] 18 Dec, 2014 [facility] [id number], [place] [address] 18 Dec, 2014 [facility] [address], [place] [address] 2014 [facility] [address] [facility] [id number], [place] [address] 2014 [facility] [id number] [place] [address] Dec, [facility] [place] [facility] [address] [id number] [place] [address] Dec, [facility] [place] [facility] [address] [id number] [place] [address] Dec, [facility] [place] [facility] [address] [id number] [place] [address] Dec, [facility] [place] [facility] [address] [id number] [place] [address] Dec, [facility] [place] [facility] [address] [id number] [place] [address] Dec, [facility] [place] [facility] [address] [id number] [place] [address] Dec, [facility] [place] [facility] [address] [id number] [place] [address] Dec, [facility] [place] [facility] [address] [id number] [place] [address] Nov, [facility] [place] [facility] [address] [id number] [place] [address] Nov, [facility] [place] [facility] [address] [id number] [place] [address] Nov, [facility] [place] [facility] [address] [id number] [place] [address] Nov, [facility] [place] [facility] [address] [id number] [place] [address] Oct, [facility] [place] [facility] [address] [id number] [place] [address] Oct, [facility] [place] [facility] [address] [id number] [place] [address] Oct, [facility] [place] [facility] [address] [id number] [place] [address] Oct, [facility] [place] [facility] [address] [id number] [place] [address] Oct, [facility] [place] [facility] [address] [id number] [place] [address] Oct, [facility] [place] [facility] [address] [id number] [place] [address] Oct, [facility] [place] [facility] [address] [id number] [place] [address] Oct, [facility] [place] [facility] [address] [id number] [place] [address] Sep, [facility] [place] [facility] [address] [id number] [place] [address] Sep, [facility] [place] [facility] [address] [id number] [place] [address] Sep, [facility] [place] [facility] [address] [id number] [place] [address] Sep, [facility] [place] [facility] [address] [id number] [place] [address] Sep, [facility] [place] [facility] [address] [id number] [place] [address] Sep, [facility] [place] [facility] [address] [id number] [place] [address] Sep, [facility] [place] [facility] [address] [id number] [place] [address] Sep, [facility] [place] [facility] [address] [id number] [place] [address] Aug, [facility] [place] [facility] [address] [id number] [place] [address] Aug, [facility] [place] [facility] [address] [id number] [place] [address] Aug, [facility] [place] [facility] [address] [id number] [place] [address] Aug, [facility] [place] [facility] [address] [id number] [place] [address] Jul, [facility] [place] [facility] [address] [id number] [place] [address] Jul, [facility] [place] [facility] [address] [id number] [place] [address] Jul, [facility] [place] [facility] [address] [id number] [place] [address] Jul, [facility] [place] [facility] [address] [id number] [place] [address] Jul, [facility] [place] [facility] [address] [id number] [place] [address] Jul, [facility] [place] [facility] [address] [id number] [place] [address] Jul, [facility] [place] [facility] [address] [id number] [place] [address] Jul, [facility] [place] [facility] [address] [id number] [place] [address] Jul, [facility] [place] [facility] [address] [id number], [place] [address] Jul, [facility] [place] [facility] [address] [id number], [place] [address] Jul, [facility] [place] [facility] [address] [id number], [place] [address] Jul, [facility] [place] [facility] [address] [id number] [place] [address] 15 Jul, 2014 [facility] [place] [facility] [address] [id number], [place] [address] Jul, [facility] [place] [facility] [address] [id number], [place] [address] Jul, [facility] [place] [facility] [address] [id number] [place] [address] Jul, 2013 [facility] [place] [facility] [address] [id number] [place] [address] Jul, 2013 [facility] [place] [facility] [address] [id number] [place] [address] Jul, 2013 [facility] [place] [facility] [address] [id number] [place] [address] Jul, 2013 [facility] [place] [facility] [address] [id number] [place] [address] Jul, [facility] [place] [facility] [address] [id number] [place] [address] Jul, [facility] [place] [facility] [address] [id number] [place] [address] Jul, [facility] [place] [facility] [address] [id number] [place] [address] 29 Jun, 2013 [facility] [place] [facility] [address] [id number] [place] [address] 29 Sep, 2013 [facility] [place] [facility] [address] [id number] [place] [address] 17 Sep, 2013 [facility] [place] [facility] [address] [id number] [place] [address] 17 Sep, 2013 [facility] [place] [facility] [address] [id number] [place] [address] 05 Sep, 2013 [facility] [place] [facility] [address] [id number] [place] [address] 05 Sep, 2013 [facility] [place] [facility] [address] [id number] [place] [address] 04 Sep, 2013 [facility] [place] [facility] [address] [id number] [place] [address] 04 Sep, 2013 [facility] [place] [facility] [address] [id number] [place] [address] 04 Jun, 2014 [facility] [place] [facility] [address] [id number] [place] [address] Jun, [facility] [place] [facility] [address] [id number] [place] [address] May, [facility] [place] [facility] [address] [id number] [place] [address] May, [facility] [place] [facility] [address] [id number] [place] [address] May, [facility] [place] [facility] [address] [id number] [place] [address] May, [facility] [place] [facility] [address] [id number] [place] [address] May, [facility] [place] [facility] [address] [id number] [place] [address] May, [facility] [place] [facility] [address] [id number] [place] [address] May, [facility] [place] [facility] [address] [id number] [place] [address] May, [facility] [place] [facility] [address] [id number] [place] [address] Apr, [facility] [place] [facility] [address] [id number] [place] [address] Apr, [facility] [place] [facility] [address] [id number] [place] [address] Apr, [facility] [place] [facility] [address] [id number] [place] [address] Apr, [facility] [place] [facility] [address] [id number] [place] [address] Apr, [facility] [place] [facility] [address] [id number] [place] [address] Apr, [facility] [place] [facility] [address] [id number] [place] [address] Mar, [facility] [place] [facility] [address] [id number] [place] [address] Mar, [facility] [place] [facility] [address] [id number] [place] [address] Mar, [facility] [place] [facility] [address] [id number] [place] [address] Mar, [facility] [place] [facility] [address] [id number] [place] [address] Mar, [facility] [place] [facility] [address] [id number] [place] [address] Mar, [facility] [place] [facility] [address] [id number] [place] [address] Mar, [facility] [place] [facility] [address] [id number] [place] [address] Mar, [facility] [place] [facility] [address] [id number] [place] [address] February, [facility] [place] [facility] [address] [id number] [place] [address] February, [facility] [place] [facility] [address] [id number] [place] [address] February, [facility] [place] [facility] [address] [id number] [place] [address] February, [facility] [place] [facility] [address] [id number] [place] [address] February, [facility] [place] [facility] [address] [id number] [place] [address] Jan, [facility] [place] [facility] [address] [id number] [place] [address] Jan, [facility] [place] [facility] [address] [id number] [place] [address] Nov, [facility] [place] [facility] [address] [id number] [place] [address] 05 Nov, 2013 [facility] [place] [facility] [address] [id number] [place] [address] Nov, [facility] [place] [facility] [address] [id number] [place] [address] Nov, [facility] [place] [facility] [address] [id number] [place] [address] Nov, [facility] [place] [facility] [address] [id number] [place] [address] Nov, [facility] [place] [facility] [address] [id number] [place] [address] Oct, [facility] [place] [facility] [address] [id number] [place] [address] Oct, [facility] [place] [facility] [address] [id number] [place] [address] Oct, [facility] [place] [facility] [address] [id number] [place] [address] Sep, [facility] [place] [facility] [address] [id number] [place] [address] Sep, [facility] [place] [facility] [address] [id number] [place] [address] Aug, [facility] [place] [facility] [address] [id number] [place] [address] Aug, [facility] [place] [facility] [address] [id number] [place] [address] Aug, [facility] [place] [facility] [address] [id number] [place] [address] Aug, [facility] [place] [facility] [address] [id number] [place] [address] Jul, [facility] [place] [facility] [address] [id number] [place] [address] Jul, [facility] [place] [facility] [address] [id number] [place] [address] Jul, [facility] [place] [facility] [address] [id number] [place] [address] Jul, [facility] [place] [facility] [address] [id number] [place] [address] Jul, [facility] [place] [facility] [address] [id number] [place] [address] Jun, [facility] [place] [facility] [address] [id number] [place] [address] Jun, [facility] [place] [facility] [address] [id number] [place] [address] May, [facility] [place] [facility] [address] [id number] [place] [address] May, [facility] [place] [facility] [address] [id number] [place] [address] May, [facility] [place] [facility] [address] [id number] [place] [address] May, [facility] [place] [facility] [address] [id number] [place] [address] May, [facility] [place] [facility] [address] [id number] [address] May, [facility] [place] [facility] [address] [id number], [place] [address] Apr, [facility] [place] [facility] [address] [id number] [place] [address] Apr, [facility] [place] [facility] [address] [id number] [place] [address] Apr, [facility] [place] [facility] [address] [id number] [place] [address] Apr, [facility] [place] [facility] [address] [id number] [place] [address] Apr, [facility] [address] [id number] [place] [address] Mar, [facility] [address] [id number] [place] [address] Mar, [facility] [address] [id number] [place] [address] Mar, [facility] [address] [id number] [place] [address] February, [facility] [address] [id number] [place] [address] February, [facility] [address] [id number] [place] [address] February, [facility] [address] [id number] [place] [address] Dec, [facility] [address] [id number] [place] [address] Dec, [facility] [address] [id number] [place] [address] Dec, [facility] [address] [id number] [place] [address] Oct, [facility] [address] [id number] [place] [address] Oct, [facility] [address] [id number] [place] [address] Sep, [facility] [place] [facility] [address] [id number] [place] [address] Sep, [facility] [place] [facility] [address] [id number] [place] [address] Aug, [facility] [address] [id number] [place] [address] Aug, [facility] [address] [facility] [id number], [place] [address] Aug, [facility] [id number], [place] [address] Aug, [facility] [id number], [place] [address] Aug, [facility] [id number] [place] [address] Aug, [facility] [address] [id number], [place] [address] Jul, [facility] [id number] [place] [address] Jul, [facility] [id number] [place] [address] Jul, [facility] [id number] [place] [address] Jul, [facility] [id number], [place] [address] Jul, [facility] [id number], [place] [address] Jul, [facility] [id number], [place] [address] Jun, [facility] [id number], [place] [address] Jun, [facility] [id number], [place] [address] Jun, [facility] [id number], [place] [address] Jun, IMMUNIZATIONS No Known Immunizations SOCIAL HISTORY Never Assessed REASON FOR VISIT proair note PLAN OF CARE VITAL SIGNS MEDICATIONS Unknown [...] Viral infection Aug 26 Hospitalization History ED [place]- Flu Sx 12/10/2016 Hospitalization History ED [place]- Congestion, runny nose and abd pain 12/21/2017
--- OUTSIDE RECORDS SUMMARY | 2019-03-19 07:29 | XMS REPORT ---
Author Author ROSA LOWERY Organization [facility] Address [address] [place] [address] Care Team Providers Care Gear Changer Name Role Phone ROSA LOWERY Unavailable PROBLEMS Type Condition ICD9-CM Code ALB96-VQ Code Onset Dates Condition Status SNOMED Code Problem Tobacco abuse Z72.0 Active 76048446 Problem Other chronic pain G89.29 Active 39424174 Problem Palpitations R00.2 Active 98729827 Problem COPD exacerbation J44.1 Active 529071914 Problem COPD with acute exacerbation J44.1 Active 566981577 Problem Non morbid obesity E66.9 Active 819682117 Problem Non morbid obesity due to excess calories E66.09 Active 028864139 Problem Other obesity due to excess calories E66.09 Active 808828097 Problem Panlobular emphysema J43.1 Active 2546896 Problem Chronic obstructive pulmonary disease, unspecified COPD type J44.9 Active 35962201 Problem LAURY (obstructive sleep apnea) G47.33 Active 21648581 Problem Edema, due to unspecified malnutrition type, unspecified type R60.9 Active 919027835 Problem Hypertension, benign I10 Active 03243143 Problem Coronary artery disease involving [place] heart, angina presence unspecified, unspecified vessel or lesion type I25.10 Active 47884550 Problem Morbid obesity due to excess calories E66.01 Active 991306340 ALLERGIES Substance Reaction Event Type Date Status Diclofenac Unknown Drug Allergy Jul, Active ENCOUNTERS Encounter Location Date Diagnosis [facility] [id number] [address] February, Medicare annual wellness visit, initial Z00.00 [facility] [id number] [address] Jan, [facility] [id number] [address] Nov, Panlobular emphysema J43.1 [facility] [id number] [place] [address] Nov, COPD exacerbation J44.1 [facility] [id number] [place] [address] 15 Nov, 2017 Viral URI J06.9 [place] [address] [address] Nov, [facility] [address] [address] Nov, [place] [address] [address] Sep, Other obesity due to excess calories E66.09 and Body mass index (BMI) of 36.0-36.9 in adult Z68.36 [place] [address] [address] Aug, [facility] [address] [address] Aug, [place] [id number] [place] [address] Aug, Coronary artery disease involving [place] heart, angina presence unspecified, unspecified vessel or lesion type I25.10 and Chronic obstructive pulmonary disease, unspecified COPD type J44.9 [facility] [id number] [place] [address] Jul, COPD with acute exacerbation J44.1 [facility] [id number] [place] [address] Jul, Non morbid obesity E66.9 [facility] [id number] [place] [address] Jun, Panlobular emphysema J43.1 ; Tobacco abuse Z72.0 ; Tobacco abuse counseling Z71.6 and Non morbid obesity E66.9 [facility] [id number] [place] [address] Apr, [facility] [id number] [place] [address] Apr, [facility] [id number] [place] [address] Mar, COPD exacerbation J44.1 [facility] [address] [address] Mar, Tear of medial meniscus of right knee, current, unspecified tear type, initial encounter S83.241A [place] [address] [address] Mar, Pain in right knee M25.561 [facility] [id number] [place] [address] February, Pain in right knee M25.561 [facility] [facility] [id number] [place] [address] February, Pain in right knee M25.561 [facility] [id number] [place] [address] Dec, [facility] [id number] [place] [address] Nov, [facility] [id number] [place] [address] Nov, Bronchitis J40 and Wheezing R06.2 [facility] [id number] [place] [address] Oct, [facility] [id number] [place] [address] Oct, [facility] [id number] [place] [address] Oct, Non morbid obesity due to excess calories E66.09 ; Other chronic pain G89.29 and Pain in right knee M25.561 [place] [id number] [place] [address] Oct, Non morbid obesity due to excess calories E66.09 ; Other chronic pain G89.29 and Pain in right knee M25.561 [facility] [place] [id number] [place] [address] Oct, Pain in right knee M25.561 and Other chronic pain G89.29 [place] [address] [address] Aug, Encounter for immunization Z23 [place] [address] [address] Aug, [place] [address] [address] Aug, [place] [address] [address] Jun, Common wart B07.8 [facility] [id number] [place] [address] May, Cellulitis of left elbow L03.114 [place] [id number] [place] [address] Mar, Torticollis, acute M43.6 and Leg pain, left M79.605 [place] [id number] [place] [address] February, Leg pain, left M79.605 [facility] [id number] [place] [address] Dec, COPD exacerbation J44.1 [place] [address] [address] Dec, [place] [address] [address] Oct, Chronic obstructive pulmonary disease, unspecified COPD type J44.9 and Hyperglycemia R73.9 [facility] [id number] [place] [address] Sep, Tobacco abuse Z72.0 ; Coronary artery disease involving [place] heart, angina presence unspecified, unspecified vessel or lesion type I25.10 and Morbid obesity due to excess calories E66.01 [place] [address] [address] Sep, [place] [address] [address] Sep, Leg pain, left M79.605 [place] [address] [address] Sep, [place] [address] [address] Sep, [place] [address] [address] Aug, Essential (primary) hypertension I10 [place] [address] [address] Aug, Encounter for immunization Z23 [place] [address] [address] Aug, [place] [address] [address] May, Chronic airway obstruction, not elsewhere classified 496 [place] [address] [address] May, [place] [address] [address] May, [facility] [address] [address] May, Acute bronchitis 466.0 [place] [address] [address] May, [facility] [address] [address] May, Hyperglycemia 790.29 [facility] [id number] [place] [address] Apr, [facility] [id number] [place] [address] Apr, Cough 786.2 ; Hyperglycemia 790.29 and COPD (chronic obstructive pulmonary disease) 496 [facility] [id number] [place] [address] Mar, Cough 786.2 ; Elevated glucose 790.29 ; Wheezing 786.07 ; COPD exacerbation 491.21 and Nicotine dependence 305.1 [facility] [id number] [place] [address] Mar, High risk medication use V58.69 [facility] [id number] [place] [address] Mar, High risk medication use V58.69 and Benign hypertension 401.1 [facility] [id number] [place] [address] Mar, [facility] [id number] [place] [address] February, [facility] [id number] [place] [address] February, [facility] [id number] [place] [address] Jan, [facility] [id number] [place] [address] Jan, Benign hypertension 401.1 [facility] [address] [address] 14 Jan, 2015 [facility] [id number] [place] [address] Jan, [facility] [place] [facility] [address] [id number] [place] [address] 27 Dec, 2014 [facility] [place] [facility] [address] [id number] [place] [address] 27 Dec, 2014 [facility] [place] [facility] [address] [id number] [place] [address] 26 Dec, 2014 [facility] [place] [facility] [address] [id number] [place] [address] 18 Dec, 2014 [facility] [place] [facility] [address] [id number] [place] [address] 18 Dec, 2014 [facility] [place] [facility] [address] [id number] [place] [address] 2014 [facility] [place] [facility] [address] [id number] [place] [address] 2014 [facility] [place] [facility] [address] [id number] [place] [address] 13 Dec, 2014 [facility] [place] [facility] [address] [id number] [place] [address] Dec, [facility] [place] [facility] [address] [id number] [place] [address] 06 Dec, 2014 [facility] [place] [facility] [address] [id number] [place] [address] 06 Dec, 2014 [facility] [place] [facility] [address] [id number] [place] [address] 05 Dec, 2014 [facility] [place] [facility] [address] [id number] [place] [address] 05 Dec, 2014 [facility] [place] [facility] [address] [id number] [place] [address] Dec, [facility] [place] [facility] [address] [id number] [place] [address] Dec, [facility] [place] [facility] [address] [id number] [place] [address] Nov, [facility] [place] [facility] [address] [id number] [place] [address] Nov, [facility] [place] [facility] [address] [id number] [place] [address] Nov, [facility] [place] [facility] [address] [id number] [place] [address] Nov, [facility] [place] [facility] [address] [id number] [place] [address] Oct, [facility] [place] [facility] [address] [id number] [place] [address] Oct, [facility] [place] [facility] [address] [id number] [place] [address] Oct, [facility] [place] [facility] [address] [id number] [place] [address] Oct, [facility] [place] [facility] [address] [id number] [place] [address] Oct, [facility] [place] [facility] [address] [id number] [place] [address] Oct, [facility] [place] [facility] [address] [facility] [id number] [place] [address] Oct, [facility] [place] [facility] [address] [id number] [place] [address] Oct, [facility] [place] [facility] [address] [id number] [place] [address] Sep, [facility] [place] [facility] [address] [id number] [place] [address] Sep, [facility] [place] [facility] [address] [id number] [place] [address] Sep, [facility] [place] [facility] [address] [id number] [place] [address] Sep, [facility] [place] [facility] [address] [id number] [place] [address] Sep, [facility] [place] [facility] [address] [id number] [place] [address] Sep, [facility] [place] [facility] [address] [id number] [place] [address] Sep, [facility] [place] [facility] [address] [id number] [place] [address] Sep, [facility] [place] [facility] [address] [id number] [place] [address] Aug, [facility] [place] [facility] [address] [id number] [place] [address] Aug, [facility] [place] [facility] [address] [id number] [place] [address] Aug, [facility] [place] [facility] [address] [id number] [place] [address] Aug, [facility] [place] [facility] [address] [id number] [place] [address] Jul, [facility] [place] [facility] [address] [id number] [place] [address] Jul, [facility] [place] [facility] [address] [id number] [place] [address] Jul, [facility] [place] [facility] [address] [id number] [place] [address] Jul, [facility] [place] [facility] [address] [id number] [place] [address] Jul, [facility] [place] [facility] [address] [id number] [place] [address] Jul, [facility] [place] [facility] [address] [id number] [place] [address] Jul, [facility] [place] [facility] [address] [id number] [place] [address] Jul, [facility] [place] [facility] [address] [id number] [place] [address] Jul, [facility] [place] [facility] [address] [id number] [place] [address] Jul, [facility] [place] [facility] [address] [id number] [place] [address] Jul, [facility] [place] [facility] [address] [id number] [place] [address] Jul, [facility] [place] [facility] [address] [id number] [place] [address] Jul, [facility] [place] [facility] [address] [id number] [place] [address] Jul, [facility] [place] [facility] [address] [id number] [place] [address] Jul, [facility] [place] [facility] [address] [id number] [address] Jul, [facility] [place] [facility] [address] [id number] [place] [address] Jul, [facility] [place] [facility] [address] [id number] [address] Jul, [facility] [place] [facility] [address] [id number] [place] [address] Jul, [facility] [place] [facility] [address] [id number] [address] Jul, [facility] [place] [facility] [address] [id number] [place] [address] Jul, [facility] [place] [facility] [address] [id number] [place] [address] Jul, [facility] [place] [facility] [address] [id number] [place] [address] Jun, [facility] [place] [facility] [address] [id number] [place] [address] 29 Sep, 2013 [facility] [place] [facility] [address] [id number] [place] [address] 17 Jun, 2013 [facility] [place] [facility] [address] [id number] [place] [address] 17 Jun, 2013 [facility] [place] [facility] [address] [id number] [place] [address] 05 Sep, 2013 [facility] [place] [facility] [address] [id number] [place] [address] 05 Sep, 2013 [facility] [place] [facility] [address] [id number] [place] [address] 04 Jun, 2013 [facility] [place] [facility] [address] [id number] [place] [address] 04 Jun, 2013 [facility] [place] [facility] [address] [id number] [place] [address] Jun, 2013 [facility] [place] [facility] [address] [id number] [place] [address] Jun, 2013 [facility] [place] [facility] [address] [id number] [place] [address] May, [facility] [place] [facility] [address] [id number] [place] [address] May, [facility] [place] [facility] [address] [id number] [place] [address] May, [facility] [place] [facility] [address] [id number] [place] [address] May, [facility] [place] [facility] [address] [id number] [place] [address] May, [facility] [place] [facility] [address] [id number] [place] [address] May, [facility] [place] [facility] [address] [id number] [place] [address] May, [facility] [place] [facility] [address] [id number] [place] [address] May, [facility] [place] [facility] [address] [id number] [place] [address] Apr, [facility] [place] [facility] [address] [id number] [place] [address] Apr, [facility] [place] [facility] [address] [id number] [place] [address] Apr, [facility] [place] [facility] [address] [id number] [place] [address] Apr, [facility] [place] [facility] [address] [id number] [place] [address] Apr, [facility] [place] [facility] [address] [id number] [place] [address] Apr, [facility] [place] [facility] [address] [id number] [place] [address] Mar, [facility] [place] [facility] [address] [id number] [place] [address] Mar, [facility] [place] [facility] [address] [id number] [place] [address] Mar, [facility] [place] [facility] [address] [id number] [place] [address] Mar, [facility] [place] [facility] [address] [id number] [place] [address] Mar, [facility] [place] [facility] [address] [id number] [place] [address] Mar, [facility] [place] [facility] [address] [id number] [place] [address] Mar, [facility] [place] [facility] [address] [id number] [place] [address] Mar, [facility] [place] [facility] [address] [id number] [place] [address] February, [facility] [place] [facility] [address] [id number] [place] [address] February, [facility] [place] [facility] [address] [id number] [place] [address] February, [facility] [place] [facility] [address] [facility] [id number] [place] [address] February, [facility] [place] [facility] [address] [id number] [place] [address] February, [facility] [place] [facility] [address] [id number] [place] [address] Jan, [facility] [place] [facility] [address] [id number] [place] [address] Jan, [facility] [place] [facility] [id number] [place] [address] Nov, [facility] [place] [facility] [address] [id number] [place] [address] Nov, [facility] [place] [facility] [address] [id number] [place] [address] Nov, [facility] [place] [facility] [address] [facility] [id number] [place] [address] Nov, [facility] [place] [facility] [address] [facility] [id number] [place] [address] Nov, [facility] [place] [facility] [address] [id number] [place] [address] Nov, [facility] [place] [facility] [address] [id number] [place] [address] Oct, [facility] [place] [facility] [address] [id number] [place] [address] Oct, [facility] [place] [facility] [address] [id number] [place] [address] Oct, [facility] [place] [facility] [address] [id number] [place] [address] Sep, [facility] [place] [facility] [address] [id number] [place] [address] Sep, [facility] [place] [facility] [address] [id number] [place] [address] Aug, [facility] [place] [facility] [address] [id number] [place] [address] Aug, [facility] [place] [facility] [address] [id number] [place] [address] Aug, [facility] [place] [facility] [address] [id number] [place] [address] Aug, [facility] [place] [facility] [address] [id number] [place] [address] Jul, [facility] [place] [facility] [address] [id number] [place] [address] Jul, [facility] [place] [facility] [address] [id number] [place] [address] Jul, [facility] [place] [facility] [address] [id number] [place] [address] Jul, [facility] [place] [facility] [address] [id number] [place] [address] Jul, [facility] [place] [facility] [address] [id number] [place] [address] Jun, [facility] [place] [facility] [address] [id number] [place] [address] Jun, [facility] [place] [facility] [address] [id number] [place] [address] May, [facility] [place] [facility] [address] [id number] [place] [address] 16 May, 2013 [facility] [place] [facility] [address] [id number] [place] [address] May, [facility] [place] [facility] [address] [id number] [place] [address] May, [facility] [place] [facility] [address] [id number] [place] [address] May, [facility] [place] [facility] [address] [id number] [place] [address] May, [facility] [place] [facility] [address] [id number] [place] [address] Apr, [facility] [place] [facility] [address] [id number] [place] [address] Apr, [facility] [place] [facility] [address] [id number] [place] [address] Apr, [facility] [place] [facility] [address] [id number] [place] [address] Apr, [facility] [place] [facility] [address] [id number] [place] [address] Apr, [facility] [place] [facility] [address] [id number] [place] [address] Mar, [facility] [place] [facility] [address] [id number] [place] [address] Mar, [facility] [place] [facility] [address] [id number] [place] [address] Mar, [facility] [place] [facility] [address] [id number] [place] [address] February, [facility] [place] [facility] [address] [id number] [place] [address] February, [facility] [place] [facility] [address] [id number] [place] [address] February, [facility] [place] [facility] [address] [id number] [place] [address] Dec, [facility] [place] [facility] [address] [id number] [place] [address] Dec, [facility] [address] [id number] [place] [address] Dec, [facility] [place] [facility] [address] [id number] [place] [address] Oct, [facility] [address] [id number] [place] [address] Oct, [facility] [place] [facility] [address] [id number] [place] [address] Sep, [facility] [address] [id number] [place] [address] Sep, [facility] [address] [id number] [place] [address] Aug, [facility] [place] [facility] [address] [id number] [place] [address] Aug, [facility] [address] [id number] [place] [address] Aug, [facility] [place] [facility] [address] [id number] [place] [address] Aug, [facility] [address] [id number] [place] [address] Aug, [facility] [place] [facility] [address] [id number] [place] [address] Aug, [facility] [place] [facility] [address] [id number] [place] [address] Jul, [facility] [place] [facility] [address] [id number] [place] [address] Jul, [facility] [place] [facility] [address] [id number] [place] [address] Jul, [facility] [place] [facility] [address] [id number] [place] [address] Jul, [facility] [address] [facility] [id number] [place] [address] Jul, [facility] [address] [facility] [id number] [place] [address] Jul, [facility] [address] [facility] [id number] [place] [address] Jun, [facility] [address] [id number] [place] [address] Jun, [facility] [address] [facility] [id number] [place] [address] Jun, [facility] [address] [facility] [id number] [place] [address] Jun, IMMUNIZATIONS No Known Immunizations SOCIAL HISTORY Never Assessed REASON FOR VISIT chest and head congestion, cough. went to the ER 2 weeks ago...dx with viral inf ection. started and finished rx for prednisone. got better. started back with th e same symptoms 2 days ago. maggy PLAN OF CARE Activity Details Follow Up after ER visit Reason: VITAL SIGNS Height 72 in 2017-08-26 Weight 267.0 lbs 2017-08-26 Temperature 98.4 degrees Fahrenheit 2017-08-26 Heart Rate 84 bpm 2017-08-26 Respiratory Rate 24 2017-08-26 Oximetry on room air:97 % 2017-08-26 BMI 36.21 kg/m2 2017-08-26 Blood pressure systolic 136 mmHg 2017-08-26 Blood pressure diastolic 74 mmHg 2017-08-26 MEDICATIONS Medication Instructions Dosage Frequency Start Date End Date Duration Status Phenytoin Sodium Extended 100 MG Orally Twice a day TAKE TWO CAPSULES BY MOUTH TWICE DAILY 12h 45 Active Incruse Ellipta 62.5 MCG/INH Inhalation Once a day 1 puff 24h 30 Mar, 2017 Active ProAir HFA 108 (90 Base) MCG/ACT Inhalation 4 times a day 2 puffs as needed 6h 28 Jun, 2017 Active PredniSONE Orally Once a day 2 tablets 24h Active Hydrochlorothiazide 25 MG Orally Once a day TAKE ONE TABLET BY MOUTH ONCE DAILY 24h 90 Active Toprol XL 100 MG TAKE ONE TABLET BY MOUTH ONCE DAILY 90 Active Aspirin 81 MG Orally Once a day take 1 tablet (81 mg) by oral route once daily 24h 20 Aug, 2013 90 days Active Cialis 20 mg Orally Once a day 1 tablet 24h 26 Jul, 2017 Active Protonix 40 MG Orally Once a day 1 tablet 24h 30 Active Topamax 50 mg Orally Twice a day 1 tablet 12h 31 Oct, 2016 30 day(s) Active Chantix 1 MG Orally Twice a day 1 tablet 12h 28 Jun, 2017 Dec, 30 day(s) Active RESULTS No Results PROCEDURES Procedure Date Ordered Result Body Site NEBULIZER TREATMENT 2017-08-26 N/A MEASURE BLOOD OXYGEN LEVEL Aug 26, 2017 FORMERLY [facility], [facility]–1983 VISIT ESTABLISHED PATIENT Aug 26, 2017 NEB/MDI RX INITIAL Aug 26, 2017 INSTRUCTIONS MEDICATIONS ADMINISTERED No Known Medications MEDICAL [...] knee 07/31/2017 Hospitalization History surgeries Hospitalization History [facility]- Viral infection Aug 26 Hospitalization History [facility]- Flu Sx 12/10/2016 Hospitalization History [facility]- Congestion, runny nose and abd pain 12/21/2017
--- OUTSIDE RECORDS SUMMARY | 2019-03-19 07:30 | XMS REPORT ---
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 Name Role Phone RENETTA CARDOZA Unavailable PROBLEMS Type Condition ICD9-CM Code QOU15-DK Code Onset Dates Condition Status SNOMED Code Problem Tobacco abuse Z72.0 Active 41238547 Problem Other chronic pain G89.29 Active 99368896 Problem Palpitations R00.2 Active 26149792 Problem COPD exacerbation J44.1 Active 589049636 Problem COPD with acute exacerbation J44.1 Active 914500702 Problem Non morbid obesity E66.9 Active 599415688 Problem Non morbid obesity due to excess calories E66.09 Active 448095137 Problem Other obesity due to excess calories E66.09 Active 421705706 Problem Panlobular emphysema J43.1 Active 8069310 Problem Chronic obstructive pulmonary disease, unspecified COPD type J44.9 Active 19962938 Problem LAURY (obstructive sleep apnea) G47.33 Active 44707201 Problem Edema, due to unspecified malnutrition type, unspecified type R60.9 Active 630075191 Problem Hypertension, benign I10 Active 84579386 Problem Coronary artery disease involving [employer] heart, angina presence unspecified, unspecified vessel or lesion type I25.10 Active 41601889 Problem Morbid obesity due to excess calories E66.01 Active 041935088 ALLERGIES No Information ENCOUNTERS Encounter Location Date Diagnosis [facility] [address] [facility] [id number] [address] Mar, [facility] [address] [facility] [id number] [address] Mar, Cough 786.2 ; Medicare annual wellness visit, initial Z00.00 ; Morbid obesity due to excess calories E66.01 ; Chronic obstructive pulmonary disease, unspecified COPD type J44.9 ; Coronary artery disease involving [employer] [employer] heart, angina presence unspecified, unspecified vessel or lesion type I25.10 ; Hypertension, benign I10 and LAURY (obstructive sleep apnea) G47.33 [place] [address] [address] February, Medicare annual wellness visit, initial Z00.00 ; Morbid obesity due to excess calories E66.01 ; Chronic obstructive pulmonary disease, unspecified COPD type J44.9 ; Coronary artery disease involving [employer] ind[employer] heart, angina presence unspecified, unspecified vessel or lesion type I25.10 ; Hypertension, benign I10 ; LAURY (obstructive sleep apnea) G47.33 ; Family history of colon cancer Z80.0 ; Other chronic pain G89.29 and Pain in right hip M25.551 [place] [address] [address] Jan, [place] [address] [address] Nov, Panlobular emphysema J43.1 [place] [address] [address] 23 Nov, 2017 COPD exacerbation J44.[address] [address] 15 Nov, 2017 Viral URI J06.9 [place] [address] [place] [id number] [place] [address] Nov, [place] [address] [address] Nov, [place] [address] [place] [id number] [place] [address] Sep, Other obesity due to excess calories E66.09 and Body mass index (BMI) of 36.0-36.9 in adult Z68.36 [place] [id number] [place] [address] Aug, [place] [address] [address] Aug, [facility] [address] [address] Aug, Coronary artery disease involving [employer] [employer] heart, angina presence unspecified, unspecified vessel or lesion type I25.10 and Chronic obstructive pulmonary disease, unspecified COPD type J44.9 [facility] [address] [address] Jul, COPD with acute exacerbation J44.1 [facility] [address] [place] [id number] [place] [address] Jul, Non morbid obesity E66.9 [place] [address] [place] [id number] [place] [address] Jun, Panlobular emphysema J43.1 ; Tobacco abuse Z72.0 ; Tobacco abuse counseling Z71.6 and Non morbid obesity E66.9 [place] [address] [place] [id number] [place] [address] Apr, [place] [address] [place] [id number] [place] [address] Apr, [place] [address] [place] [id number] [place] [address] Mar, COPD exacerbation J44.1 [place] [address] [address] Mar, Tear of medial meniscus of right knee, current, unspecified tear type, initial encounter S83.241A [facility] [address] [address] Mar, Pain in right knee M25.561 [facility] [address] [id number] [address] February, Pain in right knee M25.561 [place] [address] [address] February, Pain in right knee M25.561 [place] [address] [place] [id number] [place] [address] Dec, [place] [address] [address] Nov, [facility] [address] [address] Nov, Bronchitis J40 and Wheezing R06.2 [place] [address] [address] Oct, [place] [address] [address] Oct, [place] [address] [address] Oct, Non morbid obesity due to excess calories E66.09 ; Other chronic pain G89.29 and Pain in right knee M25.561 [place] [address] [address] Oct, Non morbid obesity due to excess calories E66.09 ; Other chronic pain G89.29 and Pain in right knee M25.561 [place] [address] [address] Oct, Pain in right knee M25.561 and Other chronic pain G89.29 [place] [address] [address] Aug, Encounter for immunization Z23 [place] [address] [place] [id number] [place] [address] Aug, [place] [address] [address] Aug, [place] [address] [address] Jun, Common wart B07.8 [facility] [address] [address] May, Cellulitis of left elbow L03.114 [facility] [address] [place] [id number] [place] [address] Mar, Torticollis, acute M43.6 and Leg pain, left M79.605 [facility] [address] [address] February, Leg pain, left M79.605 [facility] [address] [address] Dec, COPD exacerbation J44.1 [place] [address] [address] Dec, [facility] [address] [address] Oct, Chronic obstructive pulmonary disease, unspecified COPD type J44.9 and Hyperglycemia R73.9 [place] [address] [address] Sep, Tobacco abuse Z72.0 ; Coronary artery disease involving [employer] heart, angina presence unspecified, unspecified vessel or lesion type I25.10 and Morbid obesity due to excess calories E66.01 [facility] [address] [place] [id number] [place] [address] Sep, [place] [address] [address] Sep, Leg pain, left M79.605 [facility] [address] [address] Sep, [place] [address] [address] Sep, [place] [address] [address] Aug, Essential (primary) hypertension I10 [place] [address] [address] Aug, Encounter for immunization Z23 [facility] [address] [place] [id number] [place] [address] Aug, [facility] [address] [place] [id number] [place] [address] May, Chronic airway obstruction, not elsewhere classified 496 [facility] [address] [address] May, [facility] [address] [place] [id number] [place] [address] May, [facility] [address] [address] May, Acute bronchitis 466.0 [place] [address] [address] May, [facility] [address] [address] May, Hyperglycemia 790.29 [facility] [address] [place] [id number] [place] [address] Apr, [place] [address] [place] [id number] [place] [address] Apr, Cough 786.2 ; Hyperglycemia 790.29 and COPD (chronic obstructive pulmonary disease) [address] [place] [address] [place] [id number] [place] [address] Mar, Cough 786.2 ; Elevated glucose 790.29 ; Wheezing 786.07 ; COPD exacerbation 491.21 and Nicotine dependence 305.1 [place] [address] [address] Mar, High risk medication use V58.69 [place] [address] [place] [id number] [place] [address] Mar, High risk medication use V58.69 and Benign hypertension 401.1 [facility] [address] [facility] [id number] [place] [address] 08 Mar, 2015 [facility] [address] [id number] [place] [address] February, [facility] [address] [id number] [place] [address] February, [facility] [address] [id number] [place] [address] 30 Jan, 2015 [facility] [address] [id number] [place] [address] 30 Jan, 2015 Benign hypertension 401.1 [facility] [address] [id number] [place] [address] 14 Jan, 2015 [facility] [address] [facility] [id number] [place] [address] 13 Jan, 2015 [facility] [address] [facility] [id number] [place] [address] 27 Dec, 2014 [facility] [address] [id number] [place] [address] 27 Dec, 2014 [facility] [address] [id number] [place] [address] 26 Dec, 2014 [facility] [address] [facility] [id number] [place] [address] 18 Dec, 2014 [facility] [address] [id number] [place] [address] 18 Dec, 2014 [facility] [address] [id number] [place] [address] 2014 [facility] [place] [facility] [address] [id number] [place] [address] 2014 [facility] [address] [id number] [place] [address] 13 Dec, 2014 [facility] [place] [facility] [address] [id number] [place] [address] Dec, [facility] [place] [facility] [address] [id number] [place] [address] Dec, [facility] [place] [facility] [address] [id number] [place] [address] Dec, [facility] [place] [facility] [address] [facility] [id number] [place] [address] Dec, [facility] [place] [facility] [address] [id number] [place] [address] Dec, [facility] [place] [facility] [address] [id number] [place] [address] Dec, [facility] [place] [facility] [address] [id number] [place] [address] Dec, [facility] [place] [facility] [address] [facility] [id number] [place] [address] Nov, [facility] [place] [facility] [address] [id number] [place] [address] Nov, [facility] [place] [facility] [address] [id number] [place] [address] Nov, [facility] [place] [facility] [address] [facility] [id number] [place] [address] Nov, [facility] [place] [facility] [address] [facility] [id number], [place] [address] Oct, [facility] [place] [facility] [address] [id number], [place] [address] Oct, [facility] [place] [facility] [address] [id number] [place] [address] Oct, [facility] [place] [facility] [address] [id number] [place] [address] Oct, [facility] [place] [facility] [address] [facility] [id number] [place] [address] Oct, [facility] [place] [facility] [address] [id number] [place] [address] Oct, [facility] [place] [facility] [address] [id number] [place] [address] Oct, [facility] [place] [facility] [address] [id number] [place] [address] Oct, [facility] [place] [facility] [address] [id number] [place] [address] Sep, [facility] [place] [facility] [address] [id number] [place] [address] Sep, [facility] [place] [facility] [address] [id number] [place] [address] Sep, [facility] [place] [facility] [address] [id number] [place] [address] Sep, [facility] [place] [facility] [address] [id number] [place] [address] Sep, [facility] [place] [facility] [address] [id number] [place] [address] Sep, [facility] [place] [facility] [address] [id number] [place] [address] Sep, [facility] [place] [facility] [address] [id number] [place] [address] Sep, [facility] [place] [facility] [address] [id number] [place] [address] Aug, [facility] [place] [facility] [address] [id number] [place] [address] Aug, [facility] [place] [facility] [address] [id number] [place] [address] Aug, [facility] [place] [facility] [address] [id number] [place] [address] Aug, [facility] [place] [facility] [address] [id number] [place] [address] Jul, [facility] [place] [facility] [address] [id number] [place] [address] Jul, 2013 [facility] [place] [facility] [address] [id number] [place] [address] Jul, [facility] [place] [facility] [address] [id number] [place] [address] Jul, [facility] [place] [facility] [address] [id number] [place] [address] Jul, [facility] [place] [facility] [address] [id number] [place] [address] Jul, [facility] [place] [facility] [address] [id number] [place] [address] Jul, [facility] [place] [facility] [address] [id number] [place] [address] Jul, [facility] [place] [facility] [address] [id number], [place] [address] Jul, [facility] [place] [facility] [address] [id number] [place] [address] Jul, [facility] [place] [facility] [address] [id number], [place] [address] Jul, [facility] [place] [facility] [address] [id number], [place] [address] Jul, [facility] [place] [facility] [address] [id number], [place] [address] 15 Jul, 2014 [facility] [place] [facility] [address] [id number], [place] [address] 15 Jul, 2014 [facility] [place] [facility] [address] [id number], [place] [address] Jul, [facility] [place] [facility] [address] [id number], [place] [address] Jul, [facility] [place] [facility] [address] [id number] [place] [address] Jul, 2013 [facility] [place] [facility] [address] [id number] [place] [address] Jul, 2013 [facility] [place] [facility] [address] [id number] [place] [address] Jul, [facility] [place] [facility] [address] [id number] [place] [address] Jul, [facility] [place] [facility] [address] [id number] [place] [address] Jul, [facility] [place] [facility] [address] [id number] [place] [address] Jul, [facility] [place] [facility] [address] [id number] [place] [address] 29 Jun, 2013 [facility] [place] [facility] [address] [id number] [place] [address] 29 Sep, 2013 [facility] [place] [facility] [address] [id number] [place] [address] 17 Sep, 2013 [facility] [place] [facility] [address] [id number] [place] [address] 17 Sep, 2013 [facility] [place] [facility] [address] [id number] [place] [address] 05 Sep, 2013 [facility] [place] [facility] [address] [id number] [place] [address] 05 Sep, 2013 [facility] [place] [facility] [address] [id number] [place] [address] 04 Sep, 2013 [facility] [place] [facility] [address] [id number] [place] [address] 04 Sep, 2013 [facility] [place] [facility] [address] [id number] [place] [address] 04 Sep, 2013 [facility] [place] [facility] [address] [id number] [place] [address] 04 Jun, 2014 [facility] [place] [facility] [address] [id number] [place] [address] May, [facility] [place] [facility] [address] [id number] [place] [address] May, [facility] [place] [facility] [address] [id number] [place] [address] May, [facility] [place] [facility] [address] [id number] [place] [address] May, [facility] [place] [facility] [address] [id number] [place] [address] May, [facility] [place] [facility] [address] [id number] [place] [address] May, [facility] [place] [facility] [address] [id number] [place] [address] May, [facility] [place] [facility] [address] [id number] [place] [address] May, [facility] [place] [facility] [address] [id number] [place] [address] Apr, [facility] [place] [facility] [address] [id number] [place] [address] Apr, [facility] [place] [facility] [address] [id number] [place] [address] Apr, [facility] [place] [facility] [address] [id number] [place] [address] Apr, [facility] [place] [facility] [address] [id number] [place] [address] Apr, [facility] [place] [facility] [address] [id number] [place] [address] Apr, [facility] [place] [facility] [address] [id number] [place] [address] Mar, [facility] [place] [facility] [address] [id number] [place] [address] Mar, [facility] [place] [facility] [address] [id number] [place] [address] Mar, [facility] [place] [facility] [address] [id number] [place] [address] Mar, [facility] [place] [facility] [address] [id number] [place] [address] Mar, [facility] [place] [facility] [address] [id number] [place] [address] Mar, [facility] [place] [facility] [address] [id number] [place] [address] Mar, [facility] [place] [facility] [address] [id number] [place] [address] Mar, [facility] [place] [facility] [address] [id number] [place] [address] February, [facility] [place] [facility] [address] [id number] [place] [address] February, [facility] [place] [facility] [address] [id number] [place] [address] February, [facility] [place] [facility] [address] [id number] [place] [address] February, [facility] [place] [facility] [address] [id number] [place] [address] February, [facility] [place] [facility] [address] [id number] [place] [address] Jan, [facility] [place] [facility] [address] [id number] [place] [address] Jan, [facility] [place] [facility] [address] [id number] [place] [address] Nov, [facility] [place] [facility] [address] [id number] [place] [address] Nov, [facility] [place] [facility] [address] [id number] [place] [address] Nov, [facility] [place] [facility] [address] [id number] [place] [address] Nov, [facility] [place] [facility] [address] [id number] [place] [address] Nov, [facility] [place] [facility] [address] [id number] [place] [address] Nov, [facility] [place] [facility] [address] [id number] [place] [address] Oct, [facility] [place] [facility] [address] [id number] [place] [address] Oct, [facility] [place] [facility] [address] [id number] [place] [address] Oct, [facility] [place] [facility] [address] [id number] [place] [address] Sep, [facility] [place] [facility] [address] [id number] [place] [address] Sep, [facility] [place] [facility] [address] [id number] [place] [address] Aug, [facility] [place] [facility] [address] [id number] [place] [address] Aug, [facility] [place] [facility] [address] [id number] [place] [address] Aug, [facility] [place] [facility] [address] [id number] [place] [address] Aug, [facility] [place] [facility] [address] [id number] [place] [address] Jul, [facility] [place] [facility] [address] [id number] [place] [address] Jul, [facility] [place] [facility] [address] [id number] [place] [address] Jul, [facility] [place] [facility] [address] [id number] [place] [address] Jul, [facility] [place] [facility] [address] [id number] [place] [address] Jul, [facility] [place] [facility] [address] [id number] [place] [address] Jun, [facility] [place] [facility] [address] [id number] [place] [address] Jun, [facility] [place] [facility] [address] [id number] [place] [address] May, [facility] [place] [facility] [address] [id number] [place] [address] May, [facility] [place] [facility] [address] [id number] [place] [address] May, [facility] [place] [facility] [address] [id number] [place] [address] May, [facility] [place] [facility] [address] [id number] [place] [address] May, [facility] [place] [facility] [address] [id number] [place] [address] May, [facility] [place] [facility] [address] [id number] [address] Apr, [facility] [place] [facility] [address] [id number], [place] [address] Apr, [facility] [place] [facility] [address] [id number] [place] [address] Apr, [facility] [place] [facility] [address] [id number] [address] Apr, [facility] [place] [facility] [address] [id number] [place] [address] Apr, [facility] [place] [facility] [address] [id number] [place] [address] Mar, [facility] [address] [id number] [place] [address] Mar, [facility] [place] [facility] [address] [id number] [place] [address] Mar, [facility] [address] [id number] [place] [address] February, [facility] [address] [id number] [place] [address] February, [facility] [address] [id number] [place] [address] February, [facility] [address] [id number] [place] [address] Dec, [facility] [address] [id number] [place] [address] Dec, [facility] [address] [id number] [place] [address] Dec, [facility] [address] [id number] [place] [address] Oct, [facility] [address] [id number] [place] [address] Oct, [facility] [address] [id number] [place] [address] Sep, [facility] [address] [id number] [place] [address] Sep, [facility] [place] [facility] [address] [id number] [place] [address] Aug, [facility] [place] [facility] [address] [id number] [place] [address] Aug, [facility] [address] [id number] [place] [address] Aug, [facility] [id number] [address] Aug, [facility] [id number] [place] [address] Aug, [facility] [id number] [address] Aug, [facility] [id number] [place] [id number] Jul, [facility] [address] [address] Jul, [facility] [id number] [place] [id number] Jul, [facility] [id number] [place] [phone] Jul, [facility] [id number] [place] [id number] Jul, [facility] [id number] [address] Jul, [facility] [id number] [place] [id number] Jun, [facility] [id number] [address] Jun, [facility] [id number] [address] Jun, [facility] [id number] [address] Jun, IMMUNIZATIONS No Known Immunizations SOCIAL HISTORY Never Assessed REASON FOR VISIT PLAN OF CARE VITAL SIGNS MEDICATIONS Unknown [...] knee 07/31/2017 Hospitalization History surgeries Hospitalization History [facility]- Viral infection Aug 26 Hospitalization History [facility]- Flu Sx 12/10/2016 Hospitalization [facility]- Congestion, runny nose and abd pain 12/21/2017
--- OUTSIDE RECORDS SUMMARY | 2019-03-19 07:30 | XMS REPORT ---
Author Author RENETTA CARDOZA Organization [facility] Address [address] [place] [address] Care Team Providers Care Wage And Hour Investigator Name Role Phone RENETTA CARDOZA Unavailable PROBLEMS Type Condition ICD9-CM Code DSK46-HD Code Onset Dates Condition Status SNOMED Code Problem Tobacco abuse Z72.0 Active 06474433 Problem Other chronic pain G89.29 Active 40356743 Problem Palpitations R00.2 Active 57474222 Problem COPD exacerbation J44.1 Active 739526795 Problem COPD with acute exacerbation J44.1 Active 907556751 Problem Non morbid obesity E66.9 Active 389367293 Problem Non morbid obesity due to excess calories E66.09 Active 348215358 Problem Other obesity due to excess calories E66.09 Active 796231674 Problem Panlobular emphysema J43.1 Active 5690366 Problem Chronic obstructive pulmonary disease, unspecified COPD type J44.9 Active 16518702 Problem LAURY (obstructive sleep apnea) G47.33 Active 29910153 Problem Edema, due to unspecified malnutrition type, unspecified type R60.9 Active 058130686 Problem Hypertension, benign I10 Active 00045099 Problem Coronary artery disease involving tolowa dee-ni' heart, angina presence unspecified, unspecified vessel or lesion type I25.10 Active 33657436 Problem Morbid obesity due to excess calories E66.01 Active 811197918 ALLERGIES No Information ENCOUNTERS Encounter Location Date Diagnosis [facility] [address] [facility] [id number] [address] Mar, [facility] [address] [facility] [id number], [place] [address] Mar, Cough 786.2 ; Medicare annual wellness visit, initial Z00.00 ; Morbid obesity due to excess calories E66.01 ; Chronic obstructive pulmonary disease, unspecified COPD type J44.9 ; Coronary artery disease involving tolowa dee-ni' heart, angina presence unspecified, unspecified vessel or lesion type I25.10 ; Hypertension, benign I10 and LAURY (obstructive sleep apnea) G47.33 [place] [address] [address] February, Medicare annual wellness visit, initial Z00.00 ; Morbid obesity due to excess calories E66.01 ; Chronic obstructive pulmonary disease, unspecified COPD type J44.9 ; Coronary artery disease involving tolowa dee-ni' heart, angina presence unspecified, unspecified vessel or lesion type I25.10 ; Hypertension, benign I10 ; LAURY (obstructive sleep apnea) G47.33 ; Family history of colon cancer Z80.0 ; Other chronic pain G89.29 and Pain in right hip M25.551 [place] [address] [address] Jan, [place] [address] [address] Nov, Panlobular emphysema J43.1 [place] [address] [address] 23 Nov, 2017 COPD exacerbation J44.[address] [address] 15 Nov, 2017 Viral URI J06.9 [place] [address] [place] [id number] [place] [address] Nov, [place] [address] [address] Nov, [place] [address] [place] [id number] [place] [address] Sep, Other obesity due to excess calories E66.09 and Body mass index (BMI) of 36.0-36.9 in adult Z68.36 [place] [id number] [place] [address] Aug, [place] [address] [address] Aug, [facility] [id number], [place] [address] Aug, Coronary artery disease involving tolowa dee-ni' heart, angina presence unspecified, unspecified vessel or lesion type I25.10 and Chronic obstructive pulmonary disease, unspecified COPD type J44.9 [facility] [address], [place] [address] Jul, COPD with acute exacerbation J44.1 [facility] [address] [place] [id number] [place] [address] Jul, Non morbid obesity E66.9 [place] [address] [place] [id number] [place] [address] Jun, Panlobular emphysema J43.1 ; Tobacco abuse Z72.0 ; Tobacco abuse counseling Z71.6 and Non morbid obesity E66.9 [place] [address] [place] [id number] [place] [address] Apr, [place] [address] [place] [id number] [place] [address] Apr, [place] [address] [place] [id number] [place] [address] Mar, COPD exacerbation J44.1 [place] [address], [place] [address] Mar, Tear of medial meniscus of right knee, current, unspecified tear type, initial encounter S83.241A [facility] [address], [place] [address] Mar, Pain in right knee M25.561 [facility] [address] [id number] [address] February, Pain in right knee M25.561 [place] [address], [place] [address] February, Pain in right knee M25.561 [place] [address] [place] [id number] [place] [address] Dec, [place] [address] [address] Nov, [facility] [address] [address] Nov, Bronchitis J40 and Wheezing R06.2 [place] [address] [address] Oct, [place] [address] [address] Oct, [place] [address] [address] Oct, Non morbid obesity due to excess calories E66.09 ; Other chronic pain G89.29 and Pain in right knee M25.561 [place] [address] [address] Oct, Non morbid obesity due to excess calories E66.09 ; Other chronic pain G89.29 and Pain in right knee M25.561 [place] [address] [address] Oct, Pain in right knee M25.561 and Other chronic pain G89.29 [place] [address] [address] Aug, Encounter for immunization Z23 [place] [address] [place] [id number] [place] [address] Aug, [place] [address] [address] Aug, [place] [address] [address] Jun, Common wart B07.8 [facility] [address] [address] May, Cellulitis of left elbow L03.114 [facility] [address] [place] [id number] [place] [address] Mar, Torticollis, acute M43.6 and Leg pain, left M79.605 [facility] [address] [address] February, Leg pain, left M79.605 [facility] [address] [address] Dec, COPD exacerbation J44.1 [place] [address] [address] Dec, [facility] [address] [address] Oct, Chronic obstructive pulmonary disease, unspecified COPD type J44.9 and Hyperglycemia R73.9 [place] [address] [address] Sep, Tobacco abuse Z72.0 ; Coronary artery disease involving tolowa dee-ni' heart, angina presence unspecified, unspecified vessel or lesion type I25.10 and Morbid obesity due to excess calories E66.01 [facility] [address] [place] [id number] [place] [address] Sep, [place] [address] [address] Sep, Leg pain, left M79.605 [facility] [address] [address] Sep, [place] [address] [address] Sep, [place] [address] [address] Aug, Essential (primary) hypertension I10 [place] [address] [address] Aug, Encounter for immunization Z23 [facility] [address] [place] [id number] [place] [address] Aug, [facility] [address] [place] [id number] [place] [address] May, Chronic airway obstruction, not elsewhere classified 496 [facility] [address] [address] May, [facility] [address] [place] [id number] [place] [address] May, [facility] [address] [address] May, Acute bronchitis 466.0 [place] [address] [address] May, [facility] [address] [address] May, Hyperglycemia 790.29 [facility] [address] [place] [id number] [place] [address] Apr, [place] [address] [place] [id number] [place] [address] Apr, Cough 786.2 ; Hyperglycemia 790.29 and COPD (chronic obstructive pulmonary disease) [address] [place] [address] [place] [id number] [place] [address] Mar, Cough 786.2 ; Elevated glucose 790.29 ; Wheezing 786.07 ; COPD exacerbation 491.21 and Nicotine dependence 305.1 [place] [address] [address] Mar, High risk medication use V58.69 [place] [address] [place] [id number] [place] [address] Mar, High risk medication use V58.69 and Benign hypertension 401.1 [facility] [address] [facility] [id number] [place] [address] 08 Mar, 2015 [facility] [address] [id number] [place] [address] February, [facility] [address] [id number] [place] [address] February, [facility] [address] [id number] [place] [address] 30 Jan, 2015 [facility] [address] [id number] [place] [address] 30 Jan, 2015 Benign hypertension 401.1 [facility] [address] [id number] [place] [address] 14 Jan, 2015 [facility] [address] [facility] [id number] [place] [address] 13 Jan, 2015 [facility] [address] [facility] [id number] [place] [address] 27 Dec, 2014 [facility] [address] [id number] [place] [address] 27 Dec, 2014 [facility] [address] [id number] [place] [address] 26 Dec, 2014 [facility] [address] [facility] [id number] [place] [address] 18 Dec, 2014 [facility] [address] [id number] [place] [address] 18 Dec, 2014 [facility] [address] [id number] [place] [address] 2014 [facility] [place] [facility] [address] [id number] [place] [address] 2014 [facility] [address] [id number] [place] [address] 13 Dec, 2014 [facility] [place] [facility] [address] [id number] [place] [address] Dec, [facility] [place] [facility] [address] [id number] [place] [address] Dec, [facility] [place] [facility] [address] [id number] [place] [address] Dec, [facility] [place] [facility] [address] [facility] [id number] [place] [address] Dec, [facility] [place] [facility] [address] [id number] [place] [address] Dec, [facility] [place] [facility] [address] [id number] [place] [address] Dec, [facility] [place] [facility] [address] [id number] [place] [address] Dec, [facility] [place] [facility] [address] [facility] [id number] [place] [address] Nov, [facility] [place] [facility] [address] [id number] [place] [address] Nov, [facility] [place] [facility] [address] [id number] [place] [address] Nov, [facility] [place] [facility] [address] [facility] [id number] [place] [address] Nov, [facility] [place] [facility] [address] [facility] [id number], [place] [address] Oct, [facility] [place] [facility] [address] [id number], [place] [address] Oct, [facility] [place] [facility] [address] [id number] [place] [address] Oct, [facility] [place] [facility] [address] [id number] [place] [address] Oct, [facility] [place] [facility] [address] [facility] [id number] [place] [address] Oct, [facility] [place] [facility] [address] [id number] [place] [address] Oct, [facility] [place] [facility] [address] [id number] [place] [address] Oct, [facility] [place] [facility] [address] [id number] [place] [address] Oct, [facility] [place] [facility] [address] [id number] [place] [address] Sep, [facility] [place] [facility] [address] [id number] [place] [address] Sep, [facility] [place] [facility] [address] [id number] [place] [address] Sep, [facility] [place] [facility] [address] [id number] [place] [address] Sep, [facility] [place] [facility] [address] [id number] [place] [address] Sep, [facility] [place] [facility] [address] [id number] [place] [address] Sep, [facility] [place] [facility] [address] [id number] [place] [address] Sep, [facility] [place] [facility] [address] [id number] [place] [address] Sep, [facility] [place] [facility] [address] [id number] [place] [address] Aug, [facility] [place] [facility] [address] [id number] [place] [address] Aug, [facility] [place] [facility] [address] [id number] [place] [address] Aug, [facility] [place] [facility] [address] [id number] [place] [address] Aug, [facility] [place] [facility] [address] [id number] [place] [address] Jul, [facility] [place] [facility] [address] [id number] [place] [address] Jul, 2013 [facility] [place] [facility] [address] [id number] [place] [address] Jul, [facility] [place] [facility] [address] [id number] [place] [address] Jul, [facility] [place] [facility] [address] [id number] [place] [address] Jul, [facility] [place] [facility] [address] [id number] [place] [address] Jul, [facility] [place] [facility] [address] [id number] [place] [address] Jul, [facility] [place] [facility] [address] [id number] [place] [address] Jul, [facility] [place] [facility] [address] [id number], [place] [address] Jul, [facility] [place] [facility] [address] [id number] [place] [address] Jul, [facility] [place] [facility] [address] [id number], [place] [address] Jul, [facility] [place] [facility] [address] [id number], [place] [address] Jul, [facility] [place] [facility] [address] [id number], [place] [address] 15 Jul, 2014 [facility] [place] [facility] [address] [id number], [place] [address] 15 Jul, 2014 [facility] [place] [facility] [address] [id number], [place] [address] Jul, [facility] [place] [facility] [address] [id number], [place] [address] Jul, [facility] [place] [facility] [address] [id number] [place] [address] Jul, 2013 [facility] [place] [facility] [address] [id number] [place] [address] Jul, 2013 [facility] [place] [facility] [address] [id number] [place] [address] Jul, [facility] [place] [facility] [address] [id number] [place] [address] Jul, [facility] [place] [facility] [address] [id number] [place] [address] Jul, [facility] [place] [facility] [address] [id number] [place] [address] Jul, [facility] [place] [facility] [address] [id number] [place] [address] 29 Jun, 2013 [facility] [place] [facility] [address] [id number] [place] [address] 29 Sep, 2013 [facility] [place] [facility] [address] [id number] [place] [address] 17 Sep, 2013 [facility] [place] [facility] [address] [id number] [place] [address] 17 Sep, 2013 [facility] [place] [facility] [address] [id number] [place] [address] 05 Sep, 2013 [facility] [place] [facility] [address] [id number] [place] [address] 05 Sep, 2013 [facility] [place] [facility] [address] [id number] [place] [address] 04 Sep, 2013 [facility] [place] [facility] [address] [id number] [place] [address] 04 Sep, 2013 [facility] [place] [facility] [address] [id number] [place] [address] 04 Sep, 2013 [facility] [place] [facility] [address] [id number] [place] [address] 04 Jun, 2014 [facility] [place] [facility] [address] [id number] [place] [address] May, [facility] [place] [facility] [address] [id number] [place] [address] May, [facility] [place] [facility] [address] [id number] [place] [address] May, [facility] [place] [facility] [address] [id number] [place] [address] May, [facility] [place] [facility] [address] [id number] [place] [address] May, [facility] [place] [facility] [address] [id number] [place] [address] May, [facility] [place] [facility] [address] [id number] [place] [address] May, [facility] [place] [facility] [address] [id number] [place] [address] May, [facility] [place] [facility] [address] [id number] [place] [address] Apr, [facility] [place] [facility] [address] [id number] [place] [address] Apr, [facility] [place] [facility] [address] [id number] [place] [address] Apr, [facility] [place] [facility] [address] [id number] [place] [address] Apr, [facility] [place] [facility] [address] [id number] [place] [address] Apr, [facility] [place] [facility] [address] [id number] [place] [address] Apr, [facility] [place] [facility] [address] [id number] [place] [address] Mar, [facility] [place] [facility] [address] [id number] [place] [address] Mar, [facility] [place] [facility] [address] [id number] [place] [address] Mar, [facility] [place] [facility] [address] [id number] [place] [address] Mar, [facility] [place] [facility] [address] [id number] [place] [address] Mar, [facility] [place] [facility] [address] [id number] [place] [address] Mar, [facility] [place] [facility] [address] [id number] [place] [address] Mar, [facility] [place] [facility] [address] [id number] [place] [address] Mar, [facility] [place] [facility] [address] [id number] [place] [address] February, [facility] [place] [facility] [address] [id number] [place] [address] February, [facility] [place] [facility] [address] [id number] [place] [address] February, [facility] [place] [facility] [address] [id number] [place] [address] February, [facility] [place] [facility] [address] [id number] [place] [address] February, [facility] [place] [facility] [address] [id number] [place] [address] Jan, [facility] [place] [facility] [address] [id number] [place] [address] Jan, [facility] [place] [facility] [address] [id number] [place] [address] Nov, [facility] [place] [facility] [address] [id number] [place] [address] Nov, [facility] [place] [facility] [address] [id number] [place] [address] Nov, [facility] [place] [facility] [address] [id number] [place] [address] Nov, [facility] [place] [facility] [address] [id number] [place] [address] Nov, [facility] [place] [facility] [address] [id number] [place] [address] Nov, [facility] [place] [facility] [address] [id number] [place] [address] Oct, [facility] [place] [facility] [address] [id number] [place] [address] Oct, [facility] [place] [facility] [address] [id number] [place] [address] Oct, [facility] [place] [facility] [address] [id number] [place] [address] Sep, [facility] [place] [facility] [address] [id number] [place] [address] Sep, [facility] [place] [facility] [address] [id number] [place] [address] Aug, [facility] [place] [facility] [address] [id number] [place] [address] Aug, [facility] [place] [facility] [address] [id number] [place] [address] Aug, [facility] [place] [facility] [address] [id number] [place] [address] Aug, [facility] [place] [facility] [address] [id number] [place] [address] Jul, [facility] [place] [facility] [address] [id number] [place] [address] Jul, [facility] [place] [facility] [address] [id number] [place] [address] Jul, [facility] [place] [facility] [address] [id number] [place] [address] Jul, [facility] [place] [facility] [address] [id number] [place] [address] Jul, [facility] [place] [facility] [address] [id number] [place] [address] Jun, [facility] [place] [facility] [address] [id number] [place] [address] Jun, [facility] [place] [facility] [address] [id number] [place] [address] May, [facility] [place] [facility] [address] [id number] [place] [address] May, [facility] [place] [facility] [address] [id number] [place] [address] May, [facility] [place] [facility] [address] [id number] [place] [address] May, [facility] [place] [facility] [address] [id number] [place] [address] May, [facility] [place] [facility] [address] [id number] [place] [address] May, [facility] [place] [facility] [address] [id number], [place] [address] Apr, [facility] [place] [facility] [address] [id number], [place] [address] Apr, [facility] [place] [facility] [address] [id number] [place] [address] Apr, [facility] [place] [facility] [address] [id number], [place] [address] Apr, [facility] [place] [facility] [address] [id number] [place] [address] Apr, [facility] [place] [facility] [address] [id number] [place] [address] Mar, [facility] [address] [id number] [place] [address] Mar, [facility] [place] [facility] [address] [id number] [place] [address] Mar, [facility] [address] [id number] [place] [address] February, [facility] [address] [id number] [place] [address] February, [facility] [address] [id number] [place] [address] February, [facility] [address] [id number] [place] [address] Dec, [facility] [address] [id number] [place] [address] Dec, [facility] [address] [id number] [place] [address] Dec, [facility] [address] [id number] [place] [address] Oct, [facility] [address] [id number] [place] [address] Oct, [facility] [address] [id number] [place] [address] Sep, [facility] [address] [id number] [place] [address] Sep, [facility] [place] [facility] [address] [id number] [place] [address] Aug, [facility] [place] [facility] [address] [id number] [place] [address] Aug, [facility] [address] [id number] [place] [address] Aug, [facility] [id number] [address] Aug, [facility] [id number] [place] [address] Aug, [facility] [id number], [place] [address] Aug, [facility] [id number] [place] [address] Jul, [facility] [id number], [place] [address] Jul, [facility] [id number] [place] [address] Jul, [facility] [id number] [place] [address] Jul, [facility] [id number] [place] [address] Jul, [facility] [id number] [place] [address] Jul, [facility] [id number] [place] [address] Jun, [facility] [id number], [place] [address] Jun, [facility] [id number] [place] [address] Jun, [facility] [address] [id number] [address] Jun, IMMUNIZATIONS No Known Immunizations SOCIAL HISTORY Never Assessed REASON FOR VISIT Inhaler note PLAN OF CARE VITAL SIGNS MEDICATIONS Medication Instructions Dosage Frequency Start Date End Date Duration Status Ventolin HFA 108 (90 Base) MCG/ACT Inhalation 4 times a day 2 puffs as needed Nov, 30 days Active RESULTS No Results PROCEDURES No [...] knee 07/31/2017 Hospitalization History surgeries Hospitalization History [facility]- Viral infection Aug 26 Hospitalization History [facility] [place]- Flu Sx 12/10/2016 Hospitalization History [facility] [place]- Congestion, runny nose and abd pain 12/21/2017
--- OUTSIDE RECORDS SUMMARY | 2019-03-19 07:31 | XMS REPORT ---
Author Author RENETTA CARDOZA Organization [facility] Address [address] [place] [address] Care Team Providers Care Service Sprinkler Helper Name Role Phone RENETTA CARDOZA Unavailable PROBLEMS Type Condition ICD9-CM Code WTY22-ML Code Onset Dates Condition Status SNOMED Code Problem Tobacco abuse Z72.0 Active 59345790 Problem Other chronic pain G89.29 Active 13728763 Problem Palpitations R00.2 Active 07100106 Problem COPD exacerbation J44.1 Active 085856637 Problem COPD with acute exacerbation J44.1 Active 082542680 Problem Non morbid obesity E66.9 Active 723148631 Problem Non morbid obesity due to excess calories E66.09 Active 178625324 Problem Other obesity due to excess calories E66.09 Active 514653890 Problem Panlobular emphysema J43.1 Active 0962582 Problem Chronic obstructive pulmonary disease, unspecified COPD type J44.9 Active 28233075 Problem LAURY (obstructive sleep apnea) G47.33 Active 77234866 Problem Edema, due to unspecified malnutrition type, unspecified type R60.9 Active 648920283 Problem Hypertension, benign I10 Active 17834030 Problem Coronary artery disease involving [place] heart, angina presence unspecified, unspecified vessel or lesion type I25.10 Active 42845626 Problem Morbid obesity due to excess calories E66.01 Active 121723176 ALLERGIES Substance Reaction Event Type Date Status Diclofenac Unknown Drug Allergy Aug, Active ENCOUNTERS Encounter Location Date Diagnosis [facility] [address] [facility] [id number] [address] February, Medicare annual wellness visit, initial Z00.00 [facility] [address] [facility] [id number], [place] [address] Jan, [facility] [address] [facility] [id number], [place] [address] Nov, Panlobular emphysema J43.1 [facility] [id number] [place] [address] Nov, COPD exacerbation J44.1 [facility] [id number] [place] [address] 15 Nov, 2017 Viral URI J06.9 [place] [address] [address] Nov, [facility] [address] [address] Nov, [place] [address] [address] Sep, Other obesity due to excess calories E66.09 and Body mass index (BMI) of 36.0-36.9 in adult Z68.36 [place] [address] [address] Aug, [facility] [address] [address] Aug, [place] [id number] [place] [address] Aug, Coronary artery disease involving [place] heart, angina presence unspecified, unspecified vessel or lesion type I25.10 and Chronic obstructive pulmonary disease, unspecified COPD type J44.9 [facility] [id number] [place] [address] Jul, COPD with acute exacerbation J44.1 [facility] [id number] [place] [address] Jul, Non morbid obesity E66.9 [place] [address] [address] Jun, Panlobular emphysema J43.1 ; Tobacco abuse Z72.0 ; Tobacco abuse counseling Z71.6 and Non morbid obesity E66.9 [place] [address] [address] Apr, [facility] [id number] [place] [address] Apr, [facility] [id number] [place] [address] Mar, COPD exacerbation J44.1 [facility] [id number] [place] [address] Mar, Tear of medial meniscus of right knee, current, unspecified tear type, initial encounter S83.241A [place] [id number] [place] [address] Mar, Pain in right knee M25.561 [facility] [id number] [place] [address] February, Pain in right knee M25.561 [facility] [id number] [place] [address] February, Pain in right knee M25.561 [facility] [id number] [place] [address] Dec, [facility] [id number] [place] [address] Nov, [facility] [id number] [place] [address] Nov, Bronchitis J40 and Wheezing R06.2 [facility] [address] [id number] [address] Oct, [facility] [id number] [place] [address] Oct, [facility] [id number] [place] [address] Oct, Non morbid obesity due to excess calories E66.09 ; Other chronic pain G89.29 and Pain in right knee M25.561 [facility] [id number] [place] [address] Oct, Non morbid obesity due to excess calories E66.09 ; Other chronic pain G89.29 and Pain in right knee M25.561 [place] [id number] [place] [address] Oct, Pain in right knee M25.561 and Other chronic pain G89.29 [place] [address] [address] Aug, Encounter for immunization Z23 [place] [address] [address] Aug, [place] [address] [address] Aug, [place] [address] [address] Jun, Common wart B07.8 [facility] [id number] [place] [address] May, Cellulitis of left elbow L03.114 [place] [id number] [place] [address] Mar, Torticollis, acute M43.6 and Leg pain, left M79.605 [place] [address] [address] February, Leg pain, left M79.605 [facility] [id number] [place] [address] Dec, COPD exacerbation J44.1 [place] [address] [address] Dec, [place] [id number] [place] [address] Oct, Chronic obstructive pulmonary disease, unspecified COPD type J44.9 and Hyperglycemia R73.9 [facility] [address] [address] Sep, Tobacco abuse Z72.0 ; Coronary artery disease involving [place] heart, angina presence unspecified, unspecified vessel or lesion type I25.10 and Morbid obesity due to excess calories E66.01 [facility] [address] [address] Sep, [place] [address] [address] Sep, Leg pain, left M79.605 [place] [address] [address] Sep, [place] [address] [address] Sep, [place] [address] [address] Aug, Essential (primary) hypertension I10 [place] [address] [address] Aug, Encounter for immunization Z23 [place] [address] [address] Aug, [place] [address] [address] May, Chronic airway obstruction, not elsewhere classified 496 [facility] [address] [address] May, [facility] [address] [address] May, [facility] [address] [address] May, Acute bronchitis 466.0 [place] [address] [address] May, [facility] [address] [address] May, Hyperglycemia 790.29 [facility] [id number] [place] [address] Apr, [facility] [address] [place] [address] Apr, Cough 786.2 ; Hyperglycemia 790.29 and COPD (chronic obstructive pulmonary disease) 496 [facility] [id number] [place] [address] Mar, Cough 786.2 ; Elevated glucose 790.29 ; Wheezing 786.07 ; COPD exacerbation 491.21 and Nicotine dependence 305.1 [facility] [address] [address] Mar, High risk medication use V58.69 [facility] [id number] [place] [address] Mar, High risk medication use V58.69 and Benign hypertension 401.1 [facility] [id number] [place] [address] Mar, [facility] [address] [place] [address] February, [facility] [address] [place] [address] February, [facility] [address] [place] [address] Jan, [facility] [address] [place] [address] Jan, Benign hypertension 401.1 [facility] [address] [address] 14 Jan, 2015 [facility] [address] [place] [address] Jan, [facility] [place] [facility] [address] [id number] [place] [address] 27 Dec, 2014 [facility] [place] [facility] [address] [id number] [place] [address] 27 Dec, 2014 [facility] [place] [facility] [address] [id number] [place] [address] 26 Dec, 2014 [facility] [place] [facility] [address] [id number] [place] [address] 18 Dec, 2014 [facility] [place] [facility] [address] [id number] [place] [address] 18 Dec, 2014 [facility] [place] [facility] [address] [id number] [place] [address] 2014 [facility] [place] [facility] [address] [id number] [place] [address] 2014 [facility] [place] [facility] [address] [id number] [place] [address] 13 Dec, 2014 [facility] [place] [facility] [address] [id number] [place] [address] 13 Dec, 2014 [facility] [place] [facility] [address] [id number] [place] [address] 06 Dec, 2014 [facility] [place] [facility] [address] [id number] [place] [address] 06 Dec, 2014 [facility] [place] [facility] [address] [id number] [place] [address] 05 Dec, 2014 [facility] [place] [facility] [address] [id number] [place] [address] 05 Dec, 2014 [facility] [place] [facility] [address] [id number] [place] [address] Dec, 2014 [facility] [place] [facility] [address] [id number] [place] [address] 03 Dec, 2014 [facility] [place] [facility] [address] [id number] [place] [address] Nov, [facility] [place] [facility] [address] [id number] [place] [address] Nov, [facility] [place] [facility] [address] [id number] [place] [address] Nov, [facility] [place] [facility] [address] [id number] [place] [address] Nov, [facility] [place] [facility] [address] [id number] [place] [address] Oct, [facility] [place] [facility] [address] [id number] [place] [address] Oct, [facility] [place] [facility] [address] [id number] [place] [address] Oct, [facility] [place] [facility] [address] [id number] [place] [address] Oct, [facility] [place] [facility] [address] [id number] [place] [address] Oct, [facility] [place] [facility] [address] [id number] [place] [address] Oct, [facility] [place] [facility] [address] [facility] [id number] [place] [address] Oct, [facility] [place] [facility] [address] [id number] [place] [address] Oct, [facility] [place] [facility] [address] [id number] [place] [address] Sep, [facility] [place] [facility] [address] [id number] [place] [address] Sep, [facility] [place] [facility] [address] [id number] [place] [address] Sep, [facility] [place] [facility] [address] [facility] [id number] [place] [address] Sep, [facility] [place] [facility] [address] [id number] [place] [address] 08 Sep, 2014 [facility] [place] [facility] [address] [id number] [place] [address] Sep, [facility] [place] [facility] [address] [id number] [place] [address] Sep, [facility] [place] [facility] [address] [id number] [place] [address] Sep, [facility] [place] [facility] [address] [id number] [place] [address] Aug, [facility] [place] [facility] [address] [id number] [place] [address] Aug, [facility] [place] [facility] [address] [id number] [place] [address] Aug, [facility] [place] [facility] [address] [id number] [place] [address] Aug, [facility] [place] [facility] [address] [id number] [place] [address] Jul, [facility] [place] [facility] [address] [id number] [place] [address] Jul, [facility] [place] [facility] [address] [facility] [id number] [place] [address] Jul, [facility] [place] [facility] [address] [id number] [place] [address] Jul, [facility] [place] [facility] [address] [id number] [place] [address] Jul, [facility] [place] [facility] [address] [id number] [place] [address] Jul, [facility] [place] [facility] [address] [id number] [place] [address] Jul, [facility] [place] [facility] [address] [id number] [place] [address] Jul, [facility] [place] [facility] [address] [id number] [place] [address] Jul, [facility] [place] [facility] [address] [id number] [place] [address] Jul, [facility] [place] [facility] [address] [id number] [place] [address] Jul, [facility] [place] [facility] [address] [id number] [place] [address] Jul, [facility] [place] [facility] [address] [id number] [place] [address] Jul, [facility] [place] [facility] [address] [id number] [place] [address] Jul, [facility] [place] [facility] [address] [id number] [place] [address] Jul, [facility] [place] [facility] [address] [id number], [place] [address] Jul, [facility] [place] [facility] [address] [id number] [place] [address] Jul, [facility] [place] [facility] [address] [id number], [place] [address] Jul, [facility] [place] [facility] [address] [id number], [place] [address] Jul, [facility] [place] [facility] [address] [id number], [place] [address] Jul, [facility] [place] [facility] [address] [id number] [place] [address] Jul, [facility] [place] [facility] [address] [id number], [place] [address] Jul, [facility] [place] [facility] [address] [id number] [place] [address] Jun, [facility] [place] [facility] [address] [id number] [place] [address] 29 Jun, 2013 [facility] [place] [facility] [address] [id number] [place] [address] 17 Jun, 2013 [facility] [place] [facility] [address] [id number] [place] [address] 17 Jun, 2013 [facility] [place] [facility] [address] [id number] [place] [address] 05 Sep, 2013 [facility] [place] [facility] [address] [id number] [place] [address] 05 Jun, 2013 [facility] [place] [facility] [address] [id number] [place] [address] 04 Jun, 2013 [facility] [place] [facility] [address] [id number] [place] [address] Jun, 2013 [facility] [place] [facility] [address] [id number] [place] [address] Jun, 2013 [facility] [place] [facility] [address] [id number] [place] [address] Jun, 2013 [facility] [place] [facility] [address] [id number] [place] [address] May, [facility] [place] [facility] [address] [id number] [place] [address] May, [facility] [place] [facility] [address] [id number] [place] [address] May, [facility] [place] [facility] [address] [id number] [place] [address] May, [facility] [place] [facility] [address] [id number] [place] [address] May, [facility] [place] [facility] [address] [id number] [place] [address] May, [facility] [place] [facility] [address] [id number] [place] [address] May, [facility] [place] [facility] [address] [id number] [place] [address] May, [facility] [place] [facility] [address] [id number] [place] [address] Apr, [facility] [place] [facility] [address] [id number] [place] [address] Apr, [facility] [place] [facility] [address] [id number] [place] [address] Apr, [facility] [place] [facility] [address] [id number] [place] [address] Apr, [facility] [place] [facility] [address] [id number] [place] [address] Apr, [facility] [place] [facility] [address] [id number] [place] [address] Apr, [facility] [place] [facility] [address] [id number] [place] [address] Mar, [facility] [place] [facility] [address] [id number] [place] [address] Mar, [facility] [place] [facility] [address] [id number] [place] [address] Mar, [facility] [place] [facility] [address] [id number] [place] [address] Mar, [facility] [place] [facility] [address] [id number] [place] [address] Mar, [facility] [place] [facility] [address] [id number] [place] [address] Mar, [facility] [place] [facility] [address] [id number] [place] [address] Mar, [facility] [place] [facility] [address] [id number] [place] [address] 16 Mar, 2014 [facility] [place] [facility] [address] [id number], [place] [address] February, [facility] [place] [facility] [address] [id number] [place] [address] February, [facility] [place] [facility] [address] [id number] [place] [address] February, [facility] [place] [facility] [address] [facility] [id number] [place] [address] February, [facility] [place] [facility] [address] [id number] [place] [address] February, [facility] [place] [facility] [address] [id number] [place] [address] Jan, [facility] [place] [facility] [address] [facility] [id number] [place] [address] Jan, [facility] [place] [facility] [address] [facility] [id number] [place] [address] Nov, [facility] [place] [facility] [address] [id number] [place] [address] Nov, [facility] [place] [facility] [address] [id number] [place] [address] Nov, [facility] [place] [facility] [address] [facility] [id number] [place] [address] Nov, [facility] [place] [facility] [address] [id number] [place] [address] Nov, [facility] [place] [facility] [address] [id number], [place] [address] Nov, [facility] [place] [facility] [address] [id number] [place] [address] Oct, [facility] [place] [facility] [address] [id number], [place] [address] Oct, [facility] [place] [facility] [address] [facility] [id number], [place] [address] Oct, [facility] [place] [facility] [address] [id number] [place] [address] Sep, [facility] [place] [facility] [address] [id number] [place] [address] Sep, [facility] [place] [facility] [address] [id number] [place] [address] Aug, [facility] [place] [facility] [address] [id number] [place] [address] Aug, [facility] [place] [facility] [address] [id number] [place] [address] Aug, [facility] [place] [facility] [address] [id number] [place] [address] Aug, [facility] [place] [facility] [address] [id number] [place] [address] Jul, [facility] [place] [facility] [address] [id number] [place] [address] Jul, [facility] [place] [facility] [address] [id number] [place] [address] Jul, [facility] [place] [facility] [address] [id number] [place] [address] Jul, [facility] [place] [facility] [address] [id number] [place] [address] Jul, [facility] [place] [facility] [address] [id number] [place] [address] Jun, [facility] [place] [facility] [address] [id number] [place] [address] 10 Jun, 2013 [facility] [place] [facility] [address] [id number] [place] [address] May, [facility] [place] [facility] [address] [id number] [place] [address] 16 May, 2013 [facility] [place] [facility] [address] [id number] [place] [address] May, [facility] [address] [id number] [place] [address] May, [facility] [place] [facility] [address] [id number] [place] [address] May, [facility] [place] [facility] [address] [id number] [place] [address] May, [facility] [place] [facility] [address] [id number] [place] [address] Apr, [facility] [place] [facility] [address] [id number] [place] [address] Apr, [facility] [place] [facility] [address] [id number] [place] [address] Apr, [facility] [place] [facility] [address] [id number] [place] [address] Apr, [facility] [place] [facility] [address] [id number] [place] [address] Apr, [facility] [place] [facility] [address] [id number] [place] [address] Mar, [facility] [place] [facility] [address] [id number] [place] [address] Mar, [facility] [place] [facility] [address] [id number] [place] [address] Mar, [facility] [place] [facility] [address] [id number] [place] [address] February, [facility] [place] [facility] [address] [id number] [place] [address] February, [facility] [place] [facility] [address] [id number] [place] [address] February, [facility] [place] [facility] [address] [id number] [place] [address] Dec, [facility] [place] [facility] [address] [id number] [place] [address] 07 Dec, 2012 [facility] [place] [facility] [address] [id number] [place] [address] Dec, [facility] [place] [facility] [address] [id number] [place] [address] Oct, [facility] [place] [facility] [address] [id number] [place] [address] Oct, [facility] [place] [facility] [address] [id number] [place] [address] Sep, [facility] [place] [facility] [address] [id number] [place] [address] Sep, [facility] [place] [facility] [address] [id number] [place] [address] Aug, [facility] [place] [facility] [address] [id number] [place] [address] Aug, [facility] [place] [facility] [address] [id number] [place] [address] Aug, [facility] [place] [facility] [address] [id number] [place] [address] Aug, [facility] [place] [facility] [address] [facility] [id number] [place] [address] Aug, [facility] [place] [facility] [address] [id number] [place] [address] Aug, [facility] [place] [facility] [address] [id number] [place] [address] Jul, [facility] [place] [facility] [address] [id number] [place] [address] Jul, [facility] [place] [facility] [address] [id number] [place] [address] Jul, [facility] [place] [facility] [address] [id number] [place] [address] Jul, [facility] [address] [facility] [id number] [address] Jul, [facility] [address] [id number], [place] [address] Jul, [facility] [address] [facility] [id number], [place] [address] Jun, [facility] [id number], [place] [address] Jun, [facility] [address] [facility] [id number], [place] [address] Jun, [facility] [address] [id number], [place] [address] Jun, IMMUNIZATIONS No Known Immunizations SOCIAL HISTORY Never Assessed REASON FOR VISIT [facility] follow up from Aug 26 for a viral infection-[facility] RASHID PLAN OF CARE VITAL SIGNS Height 72 in 2017-09-04 Weight 270.2 lbs 2017-09-04 Temperature 97.9 degrees Fahrenheit 2017-09-04 Heart Rate 78 bpm 2017-09-04 Respiratory Rate 22 2017-09-04 Oximetry on room air:97 % 2017-09-04 BMI 36.64 kg/m2 2017-09-04 Blood pressure systolic 138 mmHg 2017-09-04 Blood pressure diastolic 78 mmHg 2017-09-04 MEDICATIONS Medication Instructions Dosage Frequency Start Date End Date Duration Status Aspirin 81 MG Orally Once a day take 1 tablet (81 mg) by oral route once daily 24h Aug, 90 days Active Incruse Ellipta 62.5 MCG/INH Inhalation Once a day 1 puff 24h 30 Mar, 2017 Active ProAir HFA 108 (90 Base) MCG/ACT Inhalation 4 times a day 2 puffs as needed 6h Jun, Active Chantix 1 MG Orally Twice a day 1 tablet 12h Jun, February, 30 day(s) Active Protonix 40 MG Orally Once a day 1 tablet 24h 30 Active Toprol XL 100 MG TAKE ONE TABLET BY MOUTH ONCE DAILY 90 Active Topamax 50 mg Orally Twice a day 1 tablet 12h Oct, 30 day(s) Active Hydrochlorothiazide 25 MG Orally Once a day TAKE ONE TABLET BY MOUTH ONCE DAILY 24h 90 Active PredniSONE Orally Once a day 2 tablets 24h Active Cialis 20 mg Orally Once a day 1 tablet 24h 26 Jul, 2017 Active RESULTS No Results PROCEDURES Procedure Date Ordered Result Body Site MEASURE BLOOD OXYGEN LEVEL Sep 04, 2017 [facility] VISIT ESTABLISHED PATIENT Sep 04, 2017 INSTRUCTIONS MEDICATIONS ADMINISTERED No Known Medications [...] knee 07/31/2017 Hospitalization History surgeries Hospitalization History [facility]- Viral infection Aug 26 Hospitalization History [facility]- Flu Sx 12/10/2016 Hospitalization [facility]- Congestion, runny nose and abd pain 12/21/2017
--- OUTSIDE RECORDS SUMMARY | 2019-03-19 07:32 | XMS REPORT ---
Author Author RENETTA CARDOZA Organization [facility] Address [address] [place] [address] Care Team Providers Care Datastage Developer Name Role Phone RENETTA CARDOZA Unavailable PROBLEMS Type Condition ICD9-CM Code [id number] Code Onset Dates Condition Status SNOMED Code Problem Tobacco abuse Z72.0 Active 16367112 Problem Other chronic pain G89.29 Active 29302277 Problem Palpitations R00.2 Active 18097791 Problem COPD exacerbation J44.1 Active 769667974 Problem COPD with acute exacerbation J44.1 Active 472851061 Problem Non morbid obesity E66.9 Active 508520175 Problem Non morbid obesity due to excess calories E66.09 Active 328476754 Problem Other obesity due to excess calories E66.09 Active 881529956 Problem Panlobular emphysema J43.1 Active 2246707 Problem Chronic obstructive pulmonary disease, unspecified COPD type J44.9 Active 72307533 Problem LAURY (obstructive sleep apnea) G47.33 Active 18207826 Problem Edema, due to unspecified malnutrition type, unspecified type R60.9 Active 744652599 Problem Hypertension, benign I10 Active 84184445 Problem Coronary artery disease involving northwestern sh[place] heart, angina presence unspecified, unspecified vessel or lesion type I25.10 Active 30443581 Problem Morbid obesity due to excess calories E66.01 Active 057605308 ALLERGIES No Information ENCOUNTERS Encounter Location Date Diagnosis [facility] [address] [facility] [id number] [place] [address] February, Medicare annual wellness visit, initial Z00.00 ; Morbid obesity due to excess calories E66.01 ; Chronic obstructive pulmonary disease, unspecified COPD type J44.9 ; Coronary artery disease involving northwestern shoshone heart, angina presence unspecified, unspecified vessel or lesion type I25.10 ; Hypertension, benign I10 ; LAURY (obstructive sleep apnea) G47.33 ; Family history of colon cancer Z80.0 ; Other chronic pain G89.29 and Pain in right hip M25.551 [facility] [id number] [place] [address] Jan, [facility] [address] [address] Nov, Panlobular emphysema J43.1 [facility] [address] [address] Nov, COPD exacerbation J44.1 [facility] [address] [address] Nov, Viral URI J06.9 [facility] [address] [address] Nov, [facility] [address] [address] Nov, [facility] [address] [address] Sep, Other obesity due to excess calories E66.09 and Body mass index (BMI) of 36.0-36.9 in adult Z68.36 [facility] [id number] [place] [address] Aug, [facility] [id number] [place] [address] Aug, [facility] [address] [address] Aug, Coronary artery disease involving northwestern sh[place] heart, angina presence unspecified, unspecified vessel or lesion type I25.10 and Chronic obstructive pulmonary disease, unspecified COPD type J44.9 [facility] [id number] [place] [address] Jul, COPD with acute exacerbation J44.1 [facility] [address] [address] Jul, Non morbid obesity E66.9 [facility] [id number] [place] [address] Jun, Panlobular emphysema J43.1 ; Tobacco abuse Z72.0 ; Tobacco abuse counseling Z71.6 and Non morbid obesity E66.9 [facility] [place] [id number] [place] [address] Apr, [place] [address] [address] Apr, [facility] [id number] [place] [address] Mar, COPD exacerbation J44.1 [facility] [id number] [place] [address] Mar, Tear of medial meniscus of right knee, current, unspecified tear type, initial encounter S83.241A [facility] [address] [address] Mar, Pain in right knee M25.561 [facility] [address] [address] February, Pain in right knee M25.561 [facility] [id number] [place] [address] February, Pain in right knee M25.561 [facility] [address] [address] Dec, [facility] [place] [id number] [place] [address] Nov, [facility] [address] [address] Nov, Bronchitis J40 and Wheezing R06.2 [facility] [place] [id number] [place] [address] Oct, [facility] [id number] [place] [address] Oct, [facility] [address] [address] Oct, Non morbid obesity due to excess calories E66.09 ; Other chronic pain G89.29 and Pain in right knee M25.561 [facility] [place] [address] [address] Oct, Non morbid obesity due to excess calories E66.09 ; Other chronic pain G89.29 and Pain in right knee M25.561 [facility] [address] [address] Oct, Pain in right knee M25.561 and Other chronic pain G89.29 [facility] [place] [address] [address] Aug, Encounter for immunization Z23 [facility] [address] [address] Aug, [facility] [place] [address] [address] Aug, [facility] [address] [address] Jun, Common wart B07.8 [facility] [id number] [place] [address] May, Cellulitis of left elbow L03.114 [facility] [place] [id number] [place] [address] Mar, Torticollis, acute M43.6 and Leg pain, left M79.605 [facility] [place] [id number] [place] [address] February, Leg pain, left M79.605 [facility] [address] [address] Dec, COPD exacerbation J44.1 [facility] [address] [address] Dec, [facility] [address] [address] Oct, Chronic obstructive pulmonary disease, unspecified COPD type J44.9 and Hyperglycemia R73.9 [facility] [address] [address] Sep, Tobacco abuse Z72.0 ; Coronary artery disease involving northwestern sh[place] heart, angina presence unspecified, unspecified vessel or lesion type I25.10 and Morbid obesity due to excess calories E66.01 [facility] [place] [address] [address] Sep, [facility] [address] [address] Sep, Leg pain, left M79.605 [facility] [place] [address] [address] Sep, [facility] [address] [address] Sep, [facility] [address] [address] Aug, Essential (primary) hypertension I10 [place] [address] [address] Aug, Encounter for immunization Z23 [facility] [address] [address] Aug, [facility] [address] [address] May, Chronic airway obstruction, not elsewhere classified 496 [facility] [address] [address] May, [facility] [address] [address] May, [facility] [id number] [place] [address] May, Acute bronchitis 466.0 [facility] [id number] [place] [address] May, [facility] [id number] [place] [address] May, Hyperglycemia 790.29 [facility] [id number] [place] [address] Apr, [facility] [id number] [place] [address] Apr, Cough 786.2 ; Hyperglycemia 790.29 and COPD (chronic obstructive pulmonary disease) 496 [facility] [id number] [place] [address] Mar, Cough 786.2 ; Elevated glucose 790.29 ; Wheezing 786.07 ; COPD exacerbation 491.21 and Nicotine dependence 305.1 [facility] [id number] [place] [address] Mar, High risk medication use V58.69 [facility] [id number] [place] [address] Mar, High risk medication use V58.69 and Benign hypertension 401.1 [facility] [id number] [place] [address] Mar, [facility] [id number] [place] [address] February, [facility] [id number] [place] [address] February, [facility] [id number] [place] [address] Jan, [facility] [id number] [place] [address] 30 Jan, 2015 Benign hypertension 401.1 [facility] [address] [id number] [place] [address] 14 Jan, 2015 [facility] [address] [id number] [place] [address] 13 Jan, 2015 [facility] [address] [facility] [id number] [place] [address] 27 Dec, 2014 [facility] [place] [facility] [address] [id number] [place] [address] 27 Dec, 2014 [facility] [address] [id number] [place] [address] 26 Dec, 2014 [facility] [place] [facility] [address] [id number] [place] [address] 18 Dec, 2014 [facility] [address] [facility] [id number] [place] [address] 18 Dec, 2014 [facility] [place] [facility] [address] [facility] [id number] [place] [address] 2014 [facility] [address] [facility] [id number] [place] [address] 2014 [facility] [place] [facility] [address] [facility] [id number] [place] [address] 13 Dec, 2014 [facility] [place] [facility] [address] [facility] [id number] [address] 13 Dec, 2014 [facility] [place] [facility] [address] [facility] [id number] [address] 06 Dec, 2014 [facility] [place] [facility] [address] [id number] [place] [address] 06 Dec, 2014 [facility] [place] [facility] [address] [facility] [id number] [place] [address] 05 Dec, 2014 [facility] [place] [facility] [address] [facility] [id number] [place] [address] 05 Dec, 2014 [facility] [place] [facility] [address] [id number] [place] [address] Dec, [facility] [place] [facility] [address] [id number] [place] [address] Dec, [facility] [place] [facility] [address] [id number] [place] [address] Nov, 2014 [facility] [place] [facility] [address] [id number] [place] [address] Nov, [facility] [place] [facility] [address] [id number] [place] [address] Nov, [facility] [place] [facility] [address] [id number] [place] [address] Nov, [facility] [place] [facility] [address] [id number] [place] [address] Oct, [facility] [place] [facility] [address] [id number] [place] [address] Oct, [facility] [place] [facility] [address] [id number] [place] [address] Oct, [facility] [place] [facility] [address] [id number] [place] [address] Oct, [facility] [place] [facility] [address] [id number] [place] [address] Oct, [facility] [place] [facility] [address] [id number] [place] [address] Oct, [facility] [place] [facility] [address] [id number] [place] [address] Oct, [facility] [place] [facility] [address] [id number] [place] [address] Oct, [facility] [place] [facility] [address] [id number] [place] [address] Sep, [facility] [place] [facility] [address] [id number] [address] Sep, [facility] [place] [facility] [address] [id number] [place] [address] Sep, [facility] [place] [facility] [address] [id number] [place] [address] Sep, [facility] [place] [facility] [address] [facility] [id number] [place] [address] Sep, [facility] [place] [facility] [address] [id number] [place] [address] Sep, [facility] [place] [facility] [address] [id number] [place] [address] Sep, [facility] [place] [facility] [address] [id number] [place] [address] Sep, [facility] [place] [facility] [address] [id number] [place] [address] Aug, [facility] [place] [facility] [address] [id number] [place] [address] Aug, [facility] [place] [facility] [address] [id number] [place] [address] Aug, [facility] [place] [facility] [address] [id number] [place] [address] Aug, [facility] [place] [facility] [address] [id number] [address] Jul, [facility] [place] [facility] [address] [id number] [address] Jul, [facility] [place] [facility] [address] [id number] [place] [address] Jul, [facility] [place] [facility] [address] [id number] [place] [address] Jul, [facility] [place] [facility] [address] [id number] [place] [address] Jul, [facility] [place] [facility] [address] [id number] [place] [address] Jul, 2013 [facility] [place] [facility] [address] [id number] [place] [address] Jul, 2013 [facility] [place] [facility] [address] [id number] [place] [address] Jul, 2013 [facility] [place] [facility] [address] [id number] [place] [address] Jul, 2013 [facility] [place] [facility] [address] [id number] [place] [address] Jul, 2013 [facility] [place] [facility] [address] [id number] [place] [address] Jul, 2013 [facility] [place] [facility] [address] [id number] [place] [address] Jul, 2013 [facility] [place] [facility] [address] [id number] [place] [address] Jul, [facility] [place] [facility] [address] [id number] [place] [address] Jul, [facility] [place] [facility] [address] [id number] [place] [address] Jul, [facility] [place] [facility] [address] [id number] [place] [address] Jul, [facility] [place] [facility] [address] [id number] [place] [address] Jul, 2013 [facility] [place] [facility] [address] [id number] [place] [address] Jul, 2013 [facility] [place] [facility] [address] [id number] [place] [address] Jul, 2013 [facility] [place] [facility] [address] [id number] [place] [address] Jul, 2013 [facility] [place] [facility] [address] [id number] [place] [address] Jul, [facility] [place] [facility] [address] [id number] [place] [address] Jul, [facility] [place] [facility] [address] [id number] [place] [address] Jun, 2013 [facility] [place] [facility] [address] [id number] [place] [address] Jun, 2013 [facility] [place] [facility] [address] [id number] [place] [address] Jun, 2013 [facility] [place] [facility] [address] [id number] [place] [address] Jun, 2013 [facility] [place] [facility] [address] [id number] [place] [address] Jun, 2013 [facility] [place] [facility] [address] [id number] [place] [address] Jun, 2013 [facility] [place] [facility] [address] [id number] [place] [address] Jun, 2013 [facility] [place] [facility] [address] [id number] [place] [address] Jun, 2013 [facility] [place] [facility] [address] [id number] [place] [address] Jun, 2013 [facility] [place] [facility] [address] [id number] [place] [address] Jun, [facility] [place] [facility] [address] [id number] [place] [address] May, [facility] [place] [facility] [address] [id number] [place] [address] May, [facility] [place] [facility] [address] [id number] [place] [address] May, [facility] [place] [facility] [address] [id number] [place] [address] May, [facility] [place] [facility] [address] [id number] [place] [address] May, [facility] [place] [facility] [address] [id number] [place] [address] May, [facility] [place] [facility] [address] [id number] [place] [address] May, [facility] [place] [facility] [address] [id number] [place] [address] May, [facility] [place] [facility] [address] [id number] [place] [address] Apr, [facility] [place] [facility] [address] [id number] [place] [address] Apr, [facility] [place] [facility] [address] [id number] [place] [address] Apr, [facility] [place] [facility] [address] [id number] [place] [address] Apr, [facility] [place] [facility] [address] [id number] [place] [address] Apr, [facility] [place] [facility] [address] [id number] [place] [address] Apr, [facility] [place] [facility] [address] [id number] [place] [address] Mar, [facility] [place] [facility] [address] [id number] [place] [address] Mar, [facility] [place] [facility] [address] [id number] [place] [address] Mar, [facility] [place] [facility] [address] [id number] [place] [address] Mar, [facility] [place] [facility] [address] [id number] [place] [address] Mar, [facility] [place] [facility] [address] [id number] [place] [address] Mar, [facility] [place] [facility] [address] [id number] [place] [address] Mar, [facility] [place] [facility] [address] [id number] [place] [address] Mar, [facility] [place] [facility] [address] [id number] [place] [address] February, [facility] [place] [facility] [address] [id number] [place] [address] February, [facility] [place] [facility] [address] [id number] [place] [address] February, [facility] [place] [facility] [address] [id number] [place] [address] February, [facility] [place] [facility] [address] [facility] [id number] [place] [address] February, [facility] [place] [facility] [address] [id number] [place] [address] Jan, [facility] [place] [facility] [address] [id number] [place] [address] Jan, [facility] [place] [facility] [address] [id number] [place] [address] Nov, [facility] [place] [facility] [address] [facility] [id number] [place] [address] Nov, [facility] [place] [facility] [address] [id number] [place] [address] Nov, [facility] [place] [facility] [address] [id number] [place] [address] Nov, [facility] [place] [facility] [address] [id number] [place] [address] Nov, [facility] [place] [facility] [address] [id number] [place] [address] Nov, [facility] [place] [facility] [address] [id number] [address] 14 Oct, 2013 [facility] [place] [facility] [address] [id number] [place] [address] 14 Oct, 2013 [facility] [place] [facility] [address] [id number] [place] [address] Oct, [facility] [place] [facility] [address] [id number] [place] [address] Sep, [facility] [place] [facility] [address] [id number] [place] [address] Sep, [facility] [place] [facility] [address] [id number] [place] [address] Aug, [facility] [place] [facility] [address] [id number] [place] [address] Aug, [facility] [place] [facility] [address] [id number] [place] [address] Aug, [facility] [place] [facility] [address] [id number] [place] [address] Aug, [facility] [place] [facility] [address] [id number] [place] [address] Jul, [facility] [place] [facility] [address] [id number] [place] [address] Jul, [facility] [place] [facility] [address] [id number] [address] Jul, [facility] [place] [facility] [address] [id number] [address] Jul, [facility] [place] [facility] [address] [id number] [place] [address] Jul, [facility] [place] [facility] [address] [id number] [address] Jun, [facility] [place] [facility] [address] [id number] [place] [address] 10 Jun, 2013 [facility] [place] [facility] [address] [id number] [place] [address] May, [facility] [address] [id number] [place] [address] May, [facility] [place] [facility] [address] [id number] [place] [address] May, [facility] [address] [id number] [place] [address] May, [facility] [place] [facility] [address] [id number] [place] [address] May, [facility] [address] [id number] [place] [address] May, [facility] [address] [id number] [place] [address] Apr, [facility] [address] [id number] [place] [address] Apr, [facility] [address] [id number] [place] [address] Apr, [facility] [address] [id number] [place] [address] Apr, [facility] [address] [id number] [place] [address] Apr, [facility] [place] [facility] [address] [id number] [place] [address] Mar, [facility] [place] [facility] [address] [id number] [place] [address] Mar, [facility] [place] [facility] [address] [id number] [place] [address] Mar, [facility] [place] [facility] [address] [id number] [place] [address] February, [facility] [place] [facility] [address] [id number] [place] [address] February, [facility] [place] [facility] [address] [id number] [place] [address] February, [facility] [place] [facility] [address] [id number] [place] [address] Dec, [facility] [place] [facility] [address] [id number] [place] [address] Dec, [facility] [place] [facility] [address] [id number] [place] [address] Dec, [facility] [place] [facility] [address] [id number] [place] [address] Oct, [facility] [place] [facility] [address] [id number] [place] [address] Oct, [facility] [place] [facility] [address] [id number] [place] [address] Sep, [facility] [place] [facility] [address] [id number] [place] [address] Sep, [facility] [place] [facility] [address] [id number] [place] [address] Aug, [facility] [place] [facility] [address] [id number] [place] [address] Aug, [facility] [place] [facility] [address] [id number] [place] [address] Aug, [facility] [place] [facility] [address] [id number] [place] [address] Aug, [facility] [place] [facility] [address] [id number] [place] [address] Aug, [facility] [place] [facility] [address] [id number] [place] [address] Aug, [facility] [place] [facility] [address] [id number] [place] [address] Jul, [facility] [place] [facility] [address] [id number] [address] 24 Jul, 2012 [facility] [address] [id number] [address] Jul, [facility] [address] [id number] [address] 15 Jul, 2012 [facility] [id number] [address] Jul, [facility] [id number] [address] Jul, [facility] [id number] [address] Jun, [facility] [id number] [address] Jun, [facility] [id number] [address] Jun, [facility] [address] [id number], [place] [id number] Jun, IMMUNIZATIONS No Known Immunizations SOCIAL HISTORY Never Assessed REASON FOR VISIT Refill request PLAN OF CARE VITAL SIGNS MEDICATIONS No [...] 07/31/2017 Hospitalization History surgeries Hospitalization History [facility]- Viral infection Aug 26 Hospitalization History [facility]- Flu Sx 12/10/2016 Hospitalization History [facility]- Congestion, runny nose and abd pain 12/21/2017
--- OUTSIDE RECORDS SUMMARY | 2019-03-19 07:33 | XMS REPORT ---
Author Author RENETTA CARDOZA Organization [facility] Address [address] [place] [address] Care Team Providers Care [employer] Clerk Name Role Phone RENETTA CARDOZA Unavailable PROBLEMS Type Condition ICD9-CM Code ZNH16-LI Code Onset Dates Condition Status SNOMED Code Problem Tobacco abuse Z72.0 Active 47303186 Problem Other chronic pain G89.29 Active 15126219 Problem Palpitations R00.2 Active 72328019 Problem COPD exacerbation J44.1 Active 451409175 Problem COPD with acute exacerbation J44.1 Active 200320169 Problem Non morbid obesity E66.9 Active 755547548 Problem Non morbid obesity due to excess calories E66.09 Active 764288546 Problem Other obesity due to excess calories E66.09 Active 677030467 Problem Panlobular emphysema J43.1 Active 7724754 Problem Chronic obstructive pulmonary disease, unspecified COPD type J44.9 Active 15355238 Problem LAURY (obstructive sleep apnea) G47.33 Active 00760918 Problem Edema, due to unspecified malnutrition type, unspecified type R60.9 Active 372139227 Problem Hypertension, benign I10 Active 68366497 Problem Coronary artery disease involving [place] heart, angina presence unspecified, unspecified vessel or lesion type I25.10 Active 91387476 Problem Morbid obesity due to excess calories E66.01 Active 442492041 ALLERGIES No Information ENCOUNTERS Encounter Location Date Diagnosis [facility] [id number] [address] Jan, Medicare annual wellness visit, initial Z00.00 [facility] [id number] [place] [address] Nov, Panlobular emphysema J43.1 [facility] [id number] [address] Nov, COPD exacerbation J44.1 [facility] [id number] [place] [address] 15 Nov, 2017 Viral URI J06.9 [facility] [id number] [place] [address] Nov, [facility] [id number] [place] [address] Nov, [facility] [address] [address] Sep, Other obesity due to excess calories E66.09 and Body mass index (BMI) of 36.0-36.9 in adult Z68.36 [place] [id number] [place] [address] Aug, [place] [id number] [place] [address] Aug, [place] [id number] [place] [address] Aug, Coronary artery disease involving [place] heart, angina presence unspecified, unspecified vessel or lesion type I25.10 and Chronic obstructive pulmonary disease, unspecified COPD type J44.9 [facility] [id number] [place] [address] Jul, COPD with acute exacerbation J44.1 [facility] [id number] [place] [address] Jul, Non morbid obesity E66.9 [place] [id number] [place] [address] Jun, Panlobular emphysema J43.1 ; Tobacco abuse Z72.0 ; Tobacco abuse counseling Z71.6 and Non morbid obesity E66.9 [facility] [id number] [place] [address] Apr, [facility] [id number] [place] [address] Apr, [facility] [id number] [place] [address] Mar, COPD exacerbation J44.1 [place] [id number] [place] [address] Mar, Tear of medial meniscus of right knee, current, unspecified tear type, initial encounter S83.241A [place] [id number] [place] [address] Mar, Pain in right knee M25.561 [facility] [place] [address] [address] February, Pain in right knee M25.561 [place] [address] [address] February, Pain in right knee M25.561 [place] [address] [address] Dec, [place] [id number] [place] [address] Nov, [facility] [id number] [place] [address] Nov, Bronchitis J40 and Wheezing R06.2 [place] [id number] [place] [address] Oct, [place] [id number] [place] [address] Oct, [place] [id number] [place] [address] Oct, Non morbid obesity due to excess calories E66.09 ; Other chronic pain G89.29 and Pain in right knee M25.561 [place] [id number] [place] [address] Oct, Non morbid obesity due to excess calories E66.09 ; Other chronic pain G89.29 and Pain in right knee M25.561 [place] [address] [address] Oct, Pain in right knee M25.561 and Other chronic pain G89.29 [place] [address] [address] 28 Aug, 2016 Encounter for immunization Z23 [place] [address] [address] Aug, [place] [address] [address] Aug, [place] [address] [address] Jun, Common wart B07.8 [facility] [place] [address] [address] May, Cellulitis of left elbow L03.114 [place] [address] [address] Mar, Torticollis, acute M43.6 and Leg pain, left M79.605 [place] [address] [address] February, Leg pain, left M79.605 [facility] [place] [address] [address] Dec, COPD exacerbation J44.1 [place] [address] [address] Dec, [place] [address] [address] Oct, Chronic obstructive pulmonary disease, unspecified COPD type J44.9 and Hyperglycemia R73.9 [place] [address] [address] Sep, Tobacco abuse Z72.0 ; Coronary artery disease involving [place] heart, angina presence unspecified, unspecified vessel or lesion type I25.10 and Morbid obesity due to excess calories E66.01 [facility] [address] [address] Sep, [facility] [address] [address] Sep, Leg pain, left M79.605 [facility] [address] [address] Sep, [facility] [address] [address] Sep, [facility] [address] [address] Aug, Essential (primary) hypertension I10 [place] [address] [address] Aug, Encounter for immunization Z23 [facility] [address] [address] Aug, [facility] [address] [address] May, Chronic airway obstruction, not elsewhere classified 496 [facility] [id number] [place] [address] May, [facility] [address] [address] May, [facility] [address] [address] May, Acute bronchitis 466.0 [facility] [address] [address] May, [facility] [address] [address] May, Hyperglycemia 790.29 [facility] [address] [address] Apr, [facility] [id number] [place] [address] Apr, Cough 786.2 ; Hyperglycemia 790.29 and COPD (chronic obstructive pulmonary disease) [address] [facility] [id number] [place] [address] Mar, Cough 786.2 ; Elevated glucose 790.29 ; Wheezing 786.07 ; COPD exacerbation 491.21 and Nicotine dependence 305.1 [facility] [address] [place] [address] Mar, High risk medication use V58.69 [facility] [id number] [place] [address] Mar, High risk medication use V58.69 and Benign hypertension 401.1 [facility] [id number] [place] [address] Mar, [facility] [address] [address] February, [facility] [id number] [place] [address] February, [facility] [address] [address] Jan, [facility] [address] [place] [address] Jan, Benign hypertension 401.1 [facility] [address] [address] Jan, [facility] [id number] [place] [address] Jan, [facility] [address] [address] Dec, [facility] [id number] [place] [address], [place] [address] 27 Dec, 2014 [facility] [place] [facility] [address] [id number] [place] [address] 26 Dec, 2014 [facility] [place] [facility] [address] [id number] [place] [address] 18 Dec, 2014 [facility] [place] [facility] [address] [id number] [place] [address] 18 Dec, 2014 [facility] [place] [facility] [address] [id number] [place] [address] 2014 [facility] [place] [facility] [address] [id number] [place] [address] 2014 [facility] [place] [facility] [address] [id number] [place] [address] Dec, [facility] [place] [facility] [address] [id number] [place] [address] Dec, [facility] [place] [facility] [address] [id number] [place] [address] Dec, [facility] [place] [facility] [address] [id number] [place] [address] Dec, [facility] [place] [facility] [address] [id number] [place] [address] Dec, [facility] [place] [facility] [address] [id number] [place] [address] 05 Dec, 2014 [facility] [place] [facility] [address] [id number] [place] [address] Dec, [facility] [place] [facility] [address] [id number] [place] [address] Dec, [facility] [place] [facility] [address] [id number] [place] [address] 16 Nov, 2014 [facility] [place] [facility] [address] [id number] [place] [address] 16 Nov, 2014 [facility] [place] [facility] [address] [id number] [place] [address] Nov, [facility] [place] [facility] [address] [id number] [place] [address] Nov, [facility] [place] [facility] [address] [id number] [place] [address] Oct, [facility] [place] [facility] [address] [id number] [place] [address] Oct, [facility] [place] [facility] [address] [id number] [place] [address] Oct, [facility] [place] [facility] [address] [id number] [place] [address] Oct, [facility] [place] [facility] [address] [id number] [place] [address] Oct, [facility] [place] [facility] [address] [id number] [place] [address] Oct, [facility] [place] [facility] [address] [id number] [place] [address] Oct, [facility] [place] [facility] [address] [id number] [place] [address] Oct, [facility] [place] [facility] [address] [id number] [place] [address] Sep, [facility] [place] [facility] [address] [id number] [place] [address] Sep, [facility] [place] [facility] [address] [id number] [place] [address] Sep, [facility] [place] [facility] [address] [id number] [place] [address] Sep, [facility] [place] [facility] [address] [id number] [place] [address] Sep, [facility] [place] [facility] [address] [id number] [place] [address] Sep, [facility] [place] [facility] [address] [id number] [place] [address] Sep, [facility] [place] [facility] [address] [id number] [place] [address] Sep, [facility] [place] [facility] [address] [id number] [place] [address] Aug, [facility] [place] [facility] [address] [id number] [place] [address] Aug, [facility] [place] [facility] [address] [id number] [place] [address] Aug, [facility] [place] [facility] [address] [id number] [place] [address] Aug, [facility] [place] [facility] [address] [id number] [place] [address] Jul, [facility] [place] [facility] [address] [id number] [place] [address] Jul, [facility] [place] [facility] [address] [id number] [place] [address] Jul, [facility] [place] [facility] [address] [id number] [place] [address] Jul, [facility] [place] [facility] [address] [id number] [place] [address] Jul, [facility] [place] [facility] [address] [id number] [place] [address] Jul, [facility] [place] [facility] [address] [id number] [place] [address] Jul, [facility] [place] [facility] [address] [id number] [place] [address] Jul, [facility] [place] [facility] [address] [id number] [place] [address] Jul, [facility] [place] [facility] [address] [id number] [place] [address] Jul, 2013 [facility] [place] [facility] [address] [id number] [place] [address] Jul, [facility] [place] [facility] [address] [id number] [place] [address] Jul, 2013 [facility] [place] [facility] [address] [id number] [place] [address] Jul, 2013 [facility] [place] [facility] [address] [id number] [place] [address] Jul, 2013 [facility] [place] [facility] [address] [id number] [place] [address] Jul, [facility] [place] [facility] [address] [id number] [place] [address] Jul, 2013 [facility] [place] [facility] [address] [id number] [place] [address] Jul, 2013 [facility] [place] [facility] [address] [id number] [place] [address] Jul, [facility] [place] [facility] [address] [id number] [place] [address] Jul, [facility] [place] [facility] [address] [id number] [place] [address] Jul, [facility] [place] [facility] [address] [id number] [place] [address] Jul, [facility] [place] [facility] [address] [id number] [place] [address] Jul, [facility] [place] [facility] [address] [id number] [place] [address] Jun, [facility] [place] [facility] [address] [id number] [place] [address] Jun, [facility] [place] [facility] [address] [id number] [place] [address] Jun, [facility] [place] [facility] [address] [id number] [place] [address] Jun, 2013 [facility] [place] [facility] [address] [id number] [place] [address] Jun, 2013 [facility] [place] [facility] [address] [id number] [place] [address] Jun, 2013 [facility] [place] [facility] [address] [id number] [place] [address] Jun, 2013 [facility] [place] [facility] [address] [id number] [place] [address] Jun, 2013 [facility] [place] [facility] [address] [id number] [place] [address] Jun, 2013 [facility] [place] [facility] [address] [id number] [place] [address] Jun, 2013 [facility] [place] [facility] [address] [id number] [place] [address] May, [facility] [place] [facility] [address] [id number] [place] [address] May, [facility] [place] [facility] [address] [id number] [place] [address] May, [facility] [place] [facility] [address] [id number] [place] [address] May, [facility] [place] [facility] [address] [id number] [place] [address] May, [facility] [place] [facility] [address] [id number] [place] [address] May, [facility] [place] [facility] [address] [id number] [place] [address] May, [facility] [place] [facility] [address] [id number] [place] [address] May, [facility] [place] [facility] [address] [id number] [place] [address] Apr, [facility] [place] [facility] [address] [id number] [place] [address] Apr, [facility] [place] [facility] [address] [id number] [place] [address] Apr, [facility] [place] [facility] [address] [id number] [place] [address] Apr, [facility] [place] [facility] [address] [id number] [place] [address] Apr, [facility] [place] [facility] [address] [id number] [place] [address] Apr, [facility] [place] [facility] [address] [id number] [place] [address] Mar, [facility] [place] [facility] [address] [id number] [place] [address] Mar, [facility] [place] [facility] [address] [id number] [place] [address] Mar, [facility] [place] [facility] [address] [id number] [place] [address] Mar, [facility] [place] [facility] [address] [id number] [place] [address] Mar, [facility] [place] [facility] [address] [id number] [place] [address] Mar, [facility] [place] [facility] [address] [id number] [place] [address] Mar, [facility] [place] [facility] [address] [id number] [place] [address] Mar, [facility] [place] [facility] [address] [id number] [place] [address] February, [facility] [place] [facility] [address] [id number] [place] [address] February, [facility] [place] [facility] [address] [id number] [place] [address] February, [facility] [place] [facility] [address] [id number] [place] [address] February, [facility] [place] [facility] [address] [id number] [place] [address] February, [facility] [place] [facility] [address] [id number] [place] [address] Jan, [facility] [place] [facility] [address] [id number] [place] [address] Jan, [facility] [place] [facility] [address] [id number] [place] [address] Nov, [facility] [place] [facility] [address] [facility] [id number] [place] [address] Nov, [facility] [place] [facility] [address] [id number] [place] [address] Nov, [facility] [place] [facility] [address] [id number] [place] [address] Nov, [facility] [place] [facility] [address] [facility] [id number] [place] [address] Nov, [facility] [place] [facility] [address] [facility] [id number] [place] [address] Nov, [facility] [place] [facility] [address] [id number] [place] [address] Oct, [facility] [place] [facility] [address] [id number] [place] [address] Oct, [facility] [place] [facility] [address] [id number] [place] [address] Oct, [facility] [place] [facility] [address] [id number] [place] [address] Sep, [facility] [place] [facility] [address] [id number] [place] [address] Sep, [facility] [place] [facility] [address] [id number] [place] [address] Aug, [facility] [place] [facility] [address] [id number] [place] [address] Aug, [facility] [place] [facility] [address] [facility] [id number] [place] [address] Aug, [facility] [place] [facility] [address] [id number] [place] [address] Aug, [facility] [place] [facility] [address] [id number] [place] [address] Jul, [facility] [place] [facility] [address] [id number] [place] [address] Jul, [facility] [place] [facility] [address] [facility] [id number] [place] [address] Jul, [facility] [place] [facility] [address] [id number] [place] [address] Jul, [facility] [place] [facility] [address] [facility] [id number] [place] [address] Jul, [facility] [place] [facility] [address] [facility] [id number] [place] [address] Jun, [facility] [place] [facility] [address] [id number] [place] [address] Jun, [facility] [place] [facility] [address] [id number] [place] [address] May, [facility] [place] [facility] [address] [id number] [place] [address] 16 May, 2013 [facility] [place] [facility] [address] [facility] [id number] [place] [address] May, [facility] [place] [facility] [address] [facility] [id number] [place] [address] May, [facility] [place] [facility] [address] [id number] [place] [address] May, [facility] [place] [facility] [address] [id number] [place] [address] May, [facility] [place] [facility] [address] [id number] [place] [address] Apr, [facility] [place] [facility] [address] [id number] [place] [address] Apr, [facility] [place] [facility] [address] [id number] [place] [address] Apr, [facility] [place] [facility] [address] [id number] [place] [address] Apr, [facility] [place] [facility] [address] [id number] [place] [address] Apr, [facility] [place] [facility] [address] [id number] [place] [address] Mar, [facility] [place] [facility] [address] [id number] [place] [address] Mar, [facility] [place] [facility] [address] [id number] [place] [address] Mar, [facility] [place] [facility] [address] [id number] [place] [address] February, [facility] [place] [facility] [address] [id number] [place] [address] February, [facility] [place] [facility] [address] [id number] [place] [address] February, [facility] [place] [facility] [address] [id number] [place] [address] Dec, [facility] [place] [facility] [address] [id number] [place] [address] Dec, [facility] [place] [facility] [address] [id number] [place] [address] Dec, [facility] [place] [facility] [address] [id number] [place] [address] Oct, [facility] [place] [facility] [address] [id number] [place] [address] Oct, [facility] [place] [facility] [address] [facility] [id number] [place] [address] Sep, [facility] [place] [facility] [address] [id number] [place] [address] Sep, [facility] [place] [facility] [address] [id number] [place] [address] Aug, [facility] [place] [facility] [address] [id number] [place] [address] Aug, [facility] [place] [facility] [address] [id number] [place] [address] Aug, [facility] [place] [facility] [address] [id number] [place] [address] Aug, [facility] [place] [facility] [address] [id number] [place] [address] Aug, [facility] [place] [facility] [address] [id number] [place] [address] Aug, [facility] [place] [facility] [address] [id number] [place] [address] Jul, [facility] [place] [facility] [address] [id number] [place] [address] Jul, [facility] [place] [facility] [address] [id number] [place] [address] Jul, [facility] [place] [facility] [address] [id number] [place] [address] Jul, [facility] [place] [facility] [address] [facility] [id number] [place] [address] Jul, [facility] [place] [facility] [address] [facility] [id number] [place] [address] Jul, [facility] [address] [facility] [id number] [place] [address] Jun, [facility] [address] [facility] [id number] [place] [address] 21 Jun, 2012 [facility] [address] [facility] [id number] [place] [address] 15 Jun, 2012 [facility] [address] [facility] [id number] [place] [address] 15 Jun, 2012 IMMUNIZATIONS No Known Immunizations SOCIAL HISTORY Never Assessed REASON FOR VISIT Requests return call PLAN OF CARE VITAL SIGNS MEDICATIONS Unknown [...] knee 07/31/2017 Hospitalization History surgeries Hospitalization History [facility]- Viral infection Aug 26 Hospitalization History [facility] [place]- Flu Sx 12/10/2016 Hospitalization History [facility] [place]- Congestion, runny nose and abd pain 12/21/2017
--- OUTSIDE RECORDS SUMMARY | 2019-03-19 07:33 | XMS REPORT ---
Author Author RENETTA CARDOZA Organization 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 Name Role Phone RENETTA CARDOZA Unavailable PROBLEMS Type Condition ICD9-CM Code BQD19-DH Code Onset Dates Condition Status SNOMED Code Problem Tobacco abuse Z72.0 Active 26750937 Problem Other chronic pain G89.29 Active 39155281 Problem Palpitations R00.2 Active 60936889 Problem COPD exacerbation J44.1 Active 907134830 Problem COPD with acute exacerbation J44.1 Active 825973207 Problem Non morbid obesity E66.9 Active 077399300 Problem Non morbid obesity due to excess calories E66.09 Active 297804505 Problem Other obesity due to excess calories E66.09 Active 916984022 Problem Panlobular emphysema J43.1 Active 5425940 Problem Chronic obstructive pulmonary disease, unspecified COPD type J44.9 Active 69334461 Problem LAURY (obstructive sleep apnea) G47.33 Active 86504504 Problem Edema, due to unspecified malnutrition type, unspecified type R60.9 Active 687189986 Problem Hypertension, benign I10 Active 75614192 Problem Coronary artery disease involving tonawanda heart, angina presence unspecified, unspecified vessel or lesion type I25.10 Active 81365562 Problem Morbid obesity due to excess calories E66.01 Active 367498187 ALLERGIES Substance Reaction Event Type Date Status Diclofenac Unknown Drug Allergy Jul, Active ENCOUNTERS Encounter Location Date Diagnosis [facility] [address] [facility] [id number], [place] [address] February, Medicare annual wellness visit, initial Z00.00 [facility] [address] [facility] [id number] [address] Jan, [facility] [address] [facility] [id number], [place] [address] Nov, Panlobular emphysema J43.1 [facility] [id number] [place] [address] Nov, COPD exacerbation J44.1 [facility] [id number] [place] [address] 15 Nov, 2017 Viral URI J06.9 [place] [address] [address] Nov, [facility] [address] [address] Nov, [place] [address] [address] Sep, Other obesity due to excess calories E66.09 and Body mass index (BMI) of 36.0-36.9 in adult Z68.36 [place] [address] [address] Aug, [facility] [address] [address] Aug, [place] [id number] [place] [address] Aug, Coronary artery disease involving tonawanda heart, angina presence unspecified, unspecified vessel or lesion type I25.10 and Chronic obstructive pulmonary disease, unspecified COPD type J44.9 [facility] [id number] [place] [address] Jul, COPD with acute exacerbation J44.1 [facility] [id number] [place] [address] Jul, Non morbid obesity E66.9 [place] [address] [address] Jun, Panlobular emphysema J43.1 ; Tobacco abuse Z72.0 ; Tobacco abuse counseling Z71.6 and Non morbid obesity E66.9 [place] [address] [address] Apr, [facility] [id number] [place] [address] Apr, [facility] [id number] [place] [address] Mar, COPD exacerbation J44.1 [facility] [id number] [place] [address] Mar, Tear of medial meniscus of right knee, current, unspecified tear type, initial encounter S83.241A [place] [id number] [place] [address] Mar, Pain in right knee M25.561 [facility] [id number] [place] [address] February, Pain in right knee M25.561 [facility] [id number] [place] [address] February, Pain in right knee M25.561 [facility] [id number] [place] [address] Dec, [facility] [id number] [place] [address] Nov, [facility] [id number] [place] [address] Nov, Bronchitis J[address] [facility] [address] [id number], [place] [address] Oct, [facility] [id number] [place] [address] Oct, [facility] [id number] [place] [address] Oct, Non morbid obesity due to excess calories E66.09 ; Other chronic pain G89.29 and Pain in right knee M25.561 [facility] [id number] [place] [address] Oct, Non morbid obesity due to excess calories E66.09 ; Other chronic pain G89.29 and Pain in right knee M25.561 [place] [id number] [place] [address] Oct, Pain in right knee M25.561 and Other chronic pain G89.29 [place] [address] [address] Aug, Encounter for immunization Z23 [place] [address] [address] Aug, [place] [address] [address] Aug, [place] [address] [address] Jun, Common wart B07.8 [facility] [id number] [place] [address] May, Cellulitis of left elbow L03.114 [place] [id number] [place] [address] Mar, Torticollis, acute M43.6 and Leg pain, left M79.605 [place] [address] [address] February, Leg pain, left M79.605 [facility] [id number] [place] [address] Dec, COPD exacerbation J44.1 [place] [address] [address] Dec, [place] [id number] [place] [address] Oct, Chronic obstructive pulmonary disease, unspecified COPD type J44.[address] [facility] [address] [address] Sep, Tobacco abuse Z72.0 ; Coronary artery disease involving tonawanda heart, angina presence unspecified, unspecified vessel or lesion type I25.10 and Morbid obesity due to excess calories E66.01 [facility] [address] [address] Sep, [place] [address] [address] Sep, Leg pain, left M79.605 [place] [address] [address] Sep, [place] [address] [address] Sep, [place] [address] [address] Aug, Essential (primary) hypertension I10 [place] [address] [address] Aug, Encounter for immunization Z23 [place] [address] [address] Aug, [place] [address] [address] May, Chronic airway obstruction, not elsewhere classified [address] [facility] [address] [address] May, [facility] [address] [address] May, [facility] [address] [address] May, Acute bronchitis 466.0 [place] [address] [address] May, [facility] [address], [place] [address] May, Hyperglycemia 790.29 [facility] [id number] [place] [address] Apr, [facility] [address] [place] [address] Apr, Cough 786.2 ; Hyperglycemia 790.29 and COPD (chronic obstructive pulmonary disease) [address] [facility] [id number] [place] [address] Mar, Cough 786.2 ; Elevated glucose 790.29 ; Wheezing 786.07 ; COPD exacerbation 491.21 and Nicotine dependence 305.1 [facility] [address], [place] [address] Mar, High risk medication use V58.69 [facility] [id number] [place] [address] Mar, High risk medication use V58.69 and Benign hypertension 401.1 [facility] [id number] [place] [address] Mar, [facility] [address] [place] [address] February, [facility] [address] [place] [address] February, [facility] [address] [place] [address] Jan, [facility] [address] [place] [address] Jan, Benign hypertension 401.1 [facility] [address], [place] [address] 14 Jan, 2015 [facility] [address] [place] [address] Jan, [facility] [place] [facility] [address] [id number] [place] [address] 27 Dec, 2014 [facility] [place] [facility] [address] [id number] [place] [address] 27 Dec, 2014 [facility] [place] [facility] [address] [id number] [place] [address] 26 Dec, 2014 [facility] [place] [facility] [address] [id number] [place] [address] 18 Dec, 2014 [facility] [place] [facility] [address] [id number] [place] [address] 18 Dec, 2014 [facility] [place] [facility] [address] [id number] [place] [address] 2014 [facility] [place] [facility] [address] [id number] [place] [address] 2014 [facility] [place] [facility] [address] [id number] [place] [address] 13 Dec, 2014 [facility] [place] [facility] [address] [id number] [place] [address] 13 Dec, 2014 [facility] [place] [facility] [address] [id number] [place] [address] 06 Dec, 2014 [facility] [place] [facility] [address] [id number] [place] [address] 06 Dec, 2014 [facility] [place] [facility] [address] [id number] [place] [address] 05 Dec, 2014 [facility] [place] [facility] [address] [id number] [place] [address] 05 Dec, 2014 [facility] [place] [facility] [address] [id number] [place] [address] Dec, 2014 [facility] [place] [facility] [address] [id number] [place] [address] 03 Dec, 2014 [facility] [place] [facility] [address] [id number] [place] [address] Nov, [facility] [place] [facility] [address] [id number] [place] [address] Nov, [facility] [place] [facility] [address] [id number] [place] [address] Nov, [facility] [place] [facility] [address] [id number] [place] [address] Nov, [facility] [place] [facility] [address] [id number] [place] [address] Oct, [facility] [place] [facility] [address] [id number] [place] [address] Oct, [facility] [place] [facility] [address] [id number] [place] [address] Oct, [facility] [place] [facility] [address] [id number] [place] [address] Oct, [facility] [place] [facility] [address] [id number] [place] [address] Oct, [facility] [place] [facility] [address] [id number] [place] [address] Oct, [facility] [place] [facility] [address] [facility] [id number] [place] [address] Oct, [facility] [place] [facility] [address] [id number] [place] [address] Oct, [facility] [place] [facility] [address] [id number] [place] [address] Sep, [facility] [place] [facility] [address] [id number] [place] [address] Sep, [facility] [place] [facility] [address] [id number] [place] [address] Sep, [facility] [place] [facility] [address] [facility] [id number] [place] [address] Sep, [facility] [place] [facility] [address] [id number] [place] [address] 08 Sep, 2014 [facility] [place] [facility] [address] [id number] [place] [address] Sep, [facility] [place] [facility] [address] [id number] [place] [address] Sep, [facility] [place] [facility] [address] [id number] [place] [address] Sep, [facility] [place] [facility] [address] [id number] [place] [address] Aug, [facility] [place] [facility] [address] [id number] [place] [address] Aug, [facility] [place] [facility] [address] [id number] [place] [address] Aug, [facility] [place] [facility] [address] [id number] [place] [address] Aug, [facility] [place] [facility] [address] [id number] [place] [address] Jul, [facility] [place] [facility] [address] [id number] [place] [address] Jul, [facility] [place] [facility] [address] [facility] [id number] [place] [address] Jul, [facility] [place] [facility] [address] [id number] [place] [address] Jul, [facility] [place] [facility] [address] [id number] [place] [address] Jul, [facility] [place] [facility] [address] [id number] [place] [address] Jul, [facility] [place] [facility] [address] [id number] [place] [address] Jul, [facility] [place] [facility] [address] [id number] [place] [address] Jul, [facility] [place] [facility] [address] [id number] [place] [address] Jul, [facility] [place] [facility] [address] [id number] [place] [address] Jul, [facility] [place] [facility] [address] [id number] [place] [address] Jul, [facility] [place] [facility] [address] [id number] [place] [address] Jul, [facility] [place] [facility] [address] [id number] [place] [address] Jul, [facility] [place] [facility] [address] [id number] [place] [address] Jul, [facility] [place] [facility] [address] [id number] [place] [address] Jul, [facility] [place] [facility] [address] [id number], [place] [address] Jul, [facility] [place] [facility] [address] [id number] [place] [address] Jul, [facility] [place] [facility] [address] [id number], [place] [address] Jul, [facility] [place] [facility] [address] [id number], [place] [address] Jul, [facility] [place] [facility] [address] [id number], [place] [address] Jul, [facility] [place] [facility] [address] [id number] [place] [address] Jul, [facility] [place] [facility] [address] [id number], [place] [address] Jul, [facility] [place] [facility] [address] [id number] [place] [address] Jun, [facility] [place] [facility] [address] [id number] [place] [address] 29 Jun, 2013 [facility] [place] [facility] [address] [id number] [place] [address] 17 Jun, 2013 [facility] [place] [facility] [address] [id number] [place] [address] 17 Jun, 2013 [facility] [place] [facility] [address] [id number] [place] [address] 05 Sep, 2013 [facility] [place] [facility] [address] [id number] [place] [address] 05 Jun, 2013 [facility] [place] [facility] [address] [id number] [place] [address] 04 Jun, 2013 [facility] [place] [facility] [address] [id number] [place] [address] Jun, 2013 [facility] [place] [facility] [address] [id number] [place] [address] Jun, 2013 [facility] [place] [facility] [address] [id number] [place] [address] Jun, 2013 [facility] [place] [facility] [address] [id number] [place] [address] May, [facility] [place] [facility] [address] [id number] [place] [address] May, [facility] [place] [facility] [address] [id number] [place] [address] May, [facility] [place] [facility] [address] [id number] [place] [address] May, [facility] [place] [facility] [address] [id number] [place] [address] May, [facility] [place] [facility] [address] [id number] [place] [address] May, [facility] [place] [facility] [address] [id number] [place] [address] May, [facility] [place] [facility] [address] [id number] [place] [address] May, [facility] [place] [facility] [address] [id number] [place] [address] Apr, [facility] [place] [facility] [address] [id number] [place] [address] Apr, [facility] [place] [facility] [address] [id number] [place] [address] Apr, [facility] [place] [facility] [address] [id number] [place] [address] Apr, [facility] [place] [facility] [address] [id number] [place] [address] Apr, [facility] [place] [facility] [address] [id number] [place] [address] Apr, [facility] [place] [facility] [address] [id number] [place] [address] Mar, [facility] [place] [facility] [address] [id number] [place] [address] Mar, [facility] [place] [facility] [address] [id number] [place] [address] Mar, [facility] [place] [facility] [address] [id number] [place] [address] Mar, [facility] [place] [facility] [address] [id number] [place] [address] Mar, [facility] [place] [facility] [address] [id number] [place] [address] Mar, [facility] [place] [facility] [address] [id number] [place] [address] Mar, [facility] [place] [facility] [address] [id number] [place] [address] 16 Mar, 2014 [facility] [place] [facility] [address] [id number], [place] [address] February, [facility] [place] [facility] [address] [id number] [place] [address] February, [facility] [place] [facility] [address] [id number] [place] [address] February, [facility] [place] [facility] [address] [facility] [id number] [place] [address] February, [facility] [place] [facility] [address] [id number] [place] [address] February, [facility] [place] [facility] [address] [id number] [place] [address] Jan, [facility] [place] [facility] [address] [facility] [id number] [place] [address] Jan, [facility] [place] [facility] [address] [facility] [id number] [place] [address] Nov, [facility] [place] [facility] [address] [id number] [place] [address] Nov, [facility] [place] [facility] [address] [id number] [place] [address] Nov, [facility] [place] [facility] [address] [facility] [id number] [place] [address] Nov, [facility] [place] [facility] [address] [id number] [place] [address] Nov, [facility] [place] [facility] [address] [id number], [place] [address] Nov, [facility] [place] [facility] [address] [id number] [place] [address] Oct, [facility] [place] [facility] [address] [id number], [place] [address] Oct, [facility] [place] [facility] [address] [facility] [id number], [place] [address] Oct, [facility] [place] [facility] [address] [id number] [place] [address] Sep, [facility] [place] [facility] [address] [id number] [place] [address] Sep, [facility] [place] [facility] [address] [id number] [place] [address] Aug, [facility] [place] [facility] [address] [id number] [place] [address] Aug, [facility] [place] [facility] [address] [id number] [place] [address] Aug, [facility] [place] [facility] [address] [id number] [place] [address] Aug, [facility] [place] [facility] [address] [id number] [place] [address] Jul, [facility] [place] [facility] [address] [id number] [place] [address] Jul, [facility] [place] [facility] [address] [id number] [place] [address] Jul, [facility] [place] [facility] [address] [id number] [place] [address] Jul, [facility] [place] [facility] [address] [id number] [place] [address] Jul, [facility] [place] [facility] [address] [id number] [place] [address] Jun, [facility] [place] [facility] [address] [id number] [place] [address] 10 Jun, 2013 [facility] [place] [facility] [address] [id number] [place] [address] May, [facility] [place] [facility] [address] [id number] [place] [address] 16 May, 2013 [facility] [place] [facility] [address] [id number] [place] [address] May, [facility] [address] [id number] [place] [address] May, [facility] [place] [facility] [address] [id number] [place] [address] May, [facility] [place] [facility] [address] [id number] [place] [address] May, [facility] [place] [facility] [address] [id number] [place] [address] Apr, [facility] [place] [facility] [address] [id number] [place] [address] Apr, [facility] [place] [facility] [address] [id number] [place] [address] Apr, [facility] [place] [facility] [address] [id number] [place] [address] Apr, [facility] [place] [facility] [address] [id number] [place] [address] Apr, [facility] [place] [facility] [address] [id number] [place] [address] Mar, [facility] [place] [facility] [address] [id number] [place] [address] Mar, [facility] [place] [facility] [address] [id number] [place] [address] Mar, [facility] [place] [facility] [address] [id number] [place] [address] February, [facility] [place] [facility] [address] [id number] [place] [address] February, [facility] [place] [facility] [address] [id number] [place] [address] February, [facility] [place] [facility] [address] [id number] [place] [address] Dec, [facility] [place] [facility] [address] [id number] [place] [address] 07 Dec, 2012 [facility] [place] [facility] [address] [id number] [place] [address] Dec, [facility] [place] [facility] [address] [id number] [place] [address] Oct, [facility] [place] [facility] [address] [id number] [place] [address] Oct, [facility] [place] [facility] [address] [id number] [place] [address] Sep, [facility] [place] [facility] [address] [id number] [place] [address] Sep, [facility] [place] [facility] [address] [id number] [place] [address] Aug, [facility] [place] [facility] [address] [id number] [place] [address] Aug, [facility] [place] [facility] [address] [id number] [place] [address] Aug, [facility] [place] [facility] [address] [id number] [place] [address] Aug, [facility] [place] [facility] [address] [facility] [id number] [place] [address] Aug, [facility] [place] [facility] [address] [id number] [place] [address] Aug, [facility] [place] [facility] [address] [id number] [place] [address] Jul, [facility] [place] [facility] [address] [id number] [place] [address] Jul, [facility] [place] [facility] [address] [id number] [place] [address] Jul, [facility] [place] [facility] [address] [id number] [place] [address] Jul, [facility] [address] [facility] [id number], [place] [address] Jul, [facility] [address] [facility] [id number], [place] [address] Jul, [facility] [address] [facility] [id number], [place] [address] Jun, [facility] [id number] [address] Jun, [facility] [address] [facility] [id number], [place] [address] Jun, [facility] [address] [id number], [place] [address] Jun, IMMUNIZATIONS No Known Immunizations SOCIAL HISTORY Never Assessed REASON FOR [facility] f/u from Aug 20 seen for a Viral infection, PT says he is getting maria luz Verduzco MA PLAN OF CARE VITAL SIGNS Height 72 in 2017-08-24 Weight 269.0 lbs 2017-08-24 Temperature 97.9 degrees Fahrenheit 2017-08-24 Heart Rate 88 bpm 2017-08-24 Respiratory Rate 22 2017-08-24 BMI 36.48 kg/m2 2017-08-24 Blood pressure systolic 122 mmHg 2017-08-24 Blood pressure diastolic 78 mmHg 2017-08-24 MEDICATIONS Medication Instructions Dosage Frequency Start Date End Date Duration Status ProAir HFA 108 (90 Base) MCG/ACT Inhalation 4 times a day 2 puffs as needed 6h 28 Jun, 2017 Active Toprol XL 100 MG TAKE ONE TABLET BY MOUTH ONCE DAILY 90 Active Protonix 40 MG Orally Once a day 1 tablet 24h 30 Active Cialis 20 mg Orally Once a day 1 tablet 24h 26 Jul, 2017 Active Hydrochlorothiazide 25 MG Orally Once a day TAKE ONE TABLET BY MOUTH ONCE DAILY 24h 90 Active Incruse Ellipta 62.5 MCG/INH Inhalation Once a day 1 puff 24h 30 Mar, 2017 Active Phenytoin Sodium Extended 100 MG Orally Twice a day TAKE TWO CAPSULES BY MOUTH TWICE DAILY 12h 45 Active PredniSONE Orally Once a day 2 tablets 24h Active Aspirin 81 MG Orally Once a day take 1 tablet (81 mg) by oral route once daily 24h 20 Aug, 2013 90 days Active Chantix 1 MG Orally Twice a day 1 tablet 12h 28 Jun, 2017 Dec, 30 day(s) Active Topamax 50 mg Orally Twice a day 1 tablet 12h Oct, 30 day(s) Active RESULTS No Results PROCEDURES Procedure Date Ordered Result Body Site [facility] VISIT ESTABLISHED PATIENT Aug 24, 2017 INSTRUCTIONS MEDICATIONS ADMINISTERED No Known Medications [...] knee 07/31/2017 Hospitalization History surgeries Hospitalization History [facility]- Viral infection Aug 26 Hospitalization History [facility] [place]- Flu Sx 12/10/2016 Hospitalization History [facility] [place]- Congestion, runny nose and abd pain 12/21/2017
--- OUTSIDE RECORDS SUMMARY | 2019-03-19 07:34 | XMS REPORT ---
Author Author RENETTA CARDOZA Organization [facility] Address [address] [place] [address] Care Team Providers Care Shower Screen Installer Name Role Phone RENETTA CARDOZA Unavailable PROBLEMS Type Condition ICD9-CM Code FUD04-BN Code Onset Dates Condition Status SNOMED Code Problem Tobacco abuse Z72.0 Active 93739352 Problem Other chronic pain G89.29 Active 50413757 Problem Palpitations R00.2 Active 32032270 Problem COPD exacerbation J44.1 Active 112155440 Problem COPD with acute exacerbation J44.1 Active 682819666 Problem Non morbid obesity E66.9 Active 323731133 Problem Non morbid obesity due to excess calories E66.09 Active 362863125 Problem Other obesity due to excess calories E66.09 Active 339239199 Problem Panlobular emphysema J43.1 Active 3334121 Problem Chronic obstructive pulmonary disease, unspecified COPD type J44.9 Active 45633843 Problem LAURY (obstructive sleep apnea) G47.33 Active 26006258 Problem Edema, due to unspecified malnutrition type, unspecified type R60.9 Active 163132026 Problem Hypertension, benign I10 Active 51527304 Problem Coronary artery disease involving [place] heart, angina presence unspecified, unspecified vessel or lesion type I25.10 Active 01968486 Problem Morbid obesity due to excess calories E66.01 Active 693173384 ALLERGIES Substance Reaction Event Type Date Status Diclofenac Unknown Drug Allergy Jun, Active ENCOUNTERS Encounter Location Date Diagnosis [facility] [address] [facility] [id number], [place] [address] February, Medicare annual wellness visit, initial Z00.00 [facility] [address] [facility] [id number], [place] [address] Jan, [facility] [address] [facility] [id number], [place] [address] Nov, Panlobular emphysema J43.1 [facility] [address] [place] [id number] [place] [address] Nov, COPD exacerbation J44.1 [facility] [id number] [place] [address] 15 Nov, 2017 Viral URI J06.9 [place] [address] [address] Nov, [facility] [address] [address] Nov, [place] [address] [address] Sep, Other obesity due to excess calories E66.09 and Body mass index (BMI) of 36.0-36.9 in adult Z68.36 [place] [address] [address] Aug, [facility] [address] [address] Aug, [place] [id number] [place] [address] Aug, Coronary artery disease involving [place] heart, angina presence unspecified, unspecified vessel or lesion type I25.10 and Chronic obstructive pulmonary disease, unspecified COPD type J44.9 [facility] [id number] [place] [address] Jul, COPD with acute exacerbation J44.1 [facility] [id number] [place] [address] Jul, Non morbid obesity E66.9 [place] [address] [address] Jun, Panlobular emphysema J43.1 ; Tobacco abuse Z72.0 ; Tobacco abuse counseling Z71.6 and Non morbid obesity E66.9 [place] [id number], [place] [address] Apr, [facility] [id number] [place] [address] Apr, [facility] [id number] [place] [address] Mar, COPD exacerbation J44.1 [facility] [id number] [place] [address] Mar, Tear of medial meniscus of right knee, current, unspecified tear type, initial encounter S83.241A [place] [id number] [place] [address] Mar, Pain in right knee M25.561 [facility] [id number] [place] [address] February, Pain in right knee M25.561 [facility] [id number] [place] [address] February, Pain in right knee M25.561 [facility] [id number] [place] [address] Dec, [facility] [id number] [place] [address] Nov, [facility] [id number] [place] [address] Nov, Bronchitis J40 and Wheezing R06.2 [facility] [address] [id number] [address] Oct, [facility] [id number] [place] [address] Oct, [facility] [id number] [place] [address] Oct, Non morbid obesity due to excess calories E66.09 ; Other chronic pain G89.29 and Pain in right knee M25.561 [facility] [id number] [place] [address] Oct, Non morbid obesity due to excess calories E66.09 ; Other chronic pain G89.29 and Pain in right knee M25.561 [place] [id number] [place] [address] Oct, Pain in right knee M25.561 and Other chronic pain G89.29 [place] [address] [address] Aug, Encounter for immunization Z23 [place] [address] [address] Aug, [place] [address] [address] Aug, [place] [address] [address] Jun, Common wart B07.8 [facility] [id number] [place] [address] May, Cellulitis of left elbow L03.114 [place] [id number] [place] [address] Mar, Torticollis, acute M43.6 and Leg pain, left M79.605 [place] [address] [address] February, Leg pain, left M79.605 [facility] [id number] [place] [address] Dec, COPD exacerbation J44.1 [place] [address] [address] Dec, [place] [id number] [place] [address] Oct, Chronic obstructive pulmonary disease, unspecified COPD type J44.9 and Hyperglycemia R73.9 [facility] [address] [address] Sep, Tobacco abuse Z72.0 ; Coronary artery disease involving [place] heart, angina presence unspecified, unspecified vessel or lesion type I25.10 and Morbid obesity due to excess calories E66.01 [facility] [address] [address] Sep, [place] [address] [address] Sep, Leg pain, left M79.605 [place] [address] [address] Sep, [place] [address] [address] Sep, [place] [address] [address] Aug, Essential (primary) hypertension I10 [place] [address] [address] Aug, Encounter for immunization Z23 [place] [address] [address] Aug, [place] [address] [address] May, Chronic airway obstruction, not elsewhere classified 496 [facility] [address] [address] May, [facility] [address] [address] May, [facility] [address] [address] May, Acute bronchitis 466.0 [place] [address] [address] May, [facility] [id number], [place] [address] May, Hyperglycemia 790.29 [facility] [id number] [place] [address] Apr, [facility] [id number] [place] [address] Apr, Cough 786.2 ; Hyperglycemia 790.29 and COPD (chronic obstructive pulmonary disease) 496 [facility] [id number] [place] [address] Mar, Cough 786.2 ; Elevated glucose 790.29 ; Wheezing 786.07 ; COPD exacerbation 491.21 and Nicotine dependence 305.1 [facility] [address], [place] [address] Mar, High risk medication use V58.69 [facility] [id number] [place] [address] Mar, High risk medication use V58.69 and Benign hypertension 401.1 [facility] [id number] [place] [address] Mar, [facility] [id number] [place] [address] February, [facility] [id number] [place] [address] February, [facility] [id number] [place] [address] Jan, [facility] [id number] [place] [address] Jan, Benign hypertension 401.1 [facility] [address], [place] [address] 14 Jan, 2015 [facility] [id number] [place] [address] Jan, [facility] [place] [facility] [address] [id number] [place] [address] 27 Dec, 2014 [facility] [place] [facility] [address] [id number] [place] [address] 27 Dec, 2014 [facility] [place] [facility] [address] [id number] [place] [address] 26 Dec, 2014 [facility] [place] [facility] [address] [id number] [place] [address] 18 Dec, 2014 [facility] [place] [facility] [address] [id number] [place] [address] 18 Dec, 2014 [facility] [place] [facility] [address] [id number] [place] [address] 2014 [facility] [place] [facility] [address] [id number] [place] [address] 2014 [facility] [place] [facility] [address] [id number] [place] [address] 13 Dec, 2014 [facility] [place] [facility] [address] [id number] [place] [address] 13 Dec, 2014 [facility] [place] [facility] [address] [id number] [place] [address] 06 Dec, 2014 [facility] [place] [facility] [address] [id number] [place] [address] 06 Dec, 2014 [facility] [place] [facility] [address] [id number] [place] [address] 05 Dec, 2014 [facility] [place] [facility] [address] [id number] [place] [address] 05 Dec, 2014 [facility] [place] [facility] [address] [id number] [place] [address] Dec, 2014 [facility] [place] [facility] [address] [id number] [place] [address] 03 Dec, 2014 [facility] [place] [facility] [address] [id number] [place] [address] Nov, [facility] [place] [facility] [address] [id number] [place] [address] Nov, [facility] [place] [facility] [address] [id number] [place] [address] Nov, [facility] [place] [facility] [address] [id number] [place] [address] Nov, [facility] [place] [facility] [address] [id number] [place] [address] Oct, [facility] [place] [facility] [address] [id number] [place] [address] Oct, [facility] [place] [facility] [address] [id number] [place] [address] Oct, [facility] [place] [facility] [address] [id number] [place] [address] Oct, [facility] [place] [facility] [address] [id number] [place] [address] Oct, [facility] [place] [facility] [address] [id number] [place] [address] Oct, [facility] [place] [facility] [address] [facility] [id number] [place] [address] Oct, [facility] [place] [facility] [address] [id number] [place] [address] Oct, [facility] [place] [facility] [address] [id number] [place] [address] Sep, [facility] [place] [facility] [address] [id number] [place] [address] Sep, [facility] [place] [facility] [address] [id number] [place] [address] Sep, [facility] [place] [facility] [address] [facility] [id number] [place] [address] Sep, [facility] [place] [facility] [address] [id number] [place] [address] 08 Sep, 2014 [facility] [place] [facility] [address] [id number] [place] [address] Sep, [facility] [place] [facility] [address] [id number] [place] [address] Sep, [facility] [place] [facility] [address] [id number] [place] [address] Sep, [facility] [place] [facility] [address] [id number] [place] [address] Aug, [facility] [place] [facility] [address] [id number] [place] [address] Aug, [facility] [place] [facility] [address] [id number] [place] [address] Aug, [facility] [place] [facility] [address] [id number] [place] [address] Aug, [facility] [place] [facility] [address] [id number] [place] [address] Jul, [facility] [place] [facility] [address] [id number] [place] [address] Jul, [facility] [place] [facility] [address] [facility] [id number] [place] [address] Jul, [facility] [place] [facility] [address] [id number] [place] [address] Jul, [facility] [place] [facility] [address] [id number] [place] [address] Jul, [facility] [place] [facility] [address] [id number] [place] [address] Jul, [facility] [place] [facility] [address] [id number] [place] [address] Jul, [facility] [place] [facility] [address] [id number] [place] [address] Jul, [facility] [place] [facility] [address] [id number] [place] [address] Jul, [facility] [place] [facility] [address] [id number] [place] [address] Jul, [facility] [place] [facility] [address] [id number] [place] [address] Jul, [facility] [place] [facility] [address] [id number] [place] [address] Jul, [facility] [place] [facility] [address] [id number] [place] [address] Jul, [facility] [place] [facility] [address] [id number] [place] [address] Jul, [facility] [place] [facility] [address] [id number] [place] [address] Jul, [facility] [place] [facility] [address] [id number], [place] [address] Jul, [facility] [place] [facility] [address] [id number] [place] [address] Jul, [facility] [place] [facility] [address] [id number], [place] [address] Jul, [facility] [place] [facility] [address] [id number], [place] [address] Jul, [facility] [place] [facility] [address] [id number], [place] [address] Jul, [facility] [place] [facility] [address] [id number] [place] [address] Jul, [facility] [place] [facility] [address] [id number], [place] [address] Jul, [facility] [place] [facility] [address] [id number] [place] [address] Jun, [facility] [place] [facility] [address] [id number] [place] [address] 29 Jun, 2013 [facility] [place] [facility] [address] [id number] [place] [address] 17 Jun, 2013 [facility] [place] [facility] [address] [id number] [place] [address] 17 Jun, 2013 [facility] [place] [facility] [address] [id number] [place] [address] 05 Sep, 2013 [facility] [place] [facility] [address] [id number] [place] [address] 05 Jun, 2013 [facility] [place] [facility] [address] [id number] [place] [address] 04 Jun, 2013 [facility] [place] [facility] [address] [id number] [place] [address] Jun, 2013 [facility] [place] [facility] [address] [id number] [place] [address] Jun, 2013 [facility] [place] [facility] [address] [id number] [place] [address] Jun, 2013 [facility] [place] [facility] [address] [id number] [place] [address] May, [facility] [place] [facility] [address] [id number] [place] [address] May, [facility] [place] [facility] [address] [id number] [place] [address] May, [facility] [place] [facility] [address] [id number] [place] [address] May, [facility] [place] [facility] [address] [id number] [place] [address] May, [facility] [place] [facility] [address] [id number] [place] [address] May, [facility] [place] [facility] [address] [id number] [place] [address] May, [facility] [place] [facility] [address] [id number] [place] [address] May, [facility] [place] [facility] [address] [id number] [place] [address] Apr, [facility] [place] [facility] [address] [id number] [place] [address] Apr, [facility] [place] [facility] [address] [id number] [place] [address] Apr, [facility] [place] [facility] [address] [id number] [place] [address] Apr, [facility] [place] [facility] [address] [id number] [place] [address] Apr, [facility] [place] [facility] [address] [id number] [place] [address] Apr, [facility] [place] [facility] [address] [id number] [place] [address] Mar, [facility] [place] [facility] [address] [id number] [place] [address] Mar, [facility] [place] [facility] [address] [id number] [place] [address] Mar, [facility] [place] [facility] [address] [id number] [place] [address] Mar, [facility] [place] [facility] [address] [id number] [place] [address] Mar, [facility] [place] [facility] [address] [id number] [place] [address] Mar, [facility] [place] [facility] [address] [id number] [place] [address] Mar, [facility] [place] [facility] [address] [id number] [place] [address] 16 Mar, 2014 [facility] [place] [facility] [address] [id number], [place] [address] February, [facility] [place] [facility] [address] [id number] [place] [address] February, [facility] [place] [facility] [address] [id number] [place] [address] February, [facility] [place] [facility] [address] [facility] [id number] [place] [address] February, [facility] [place] [facility] [address] [id number] [place] [address] February, [facility] [place] [facility] [address] [id number] [place] [address] Jan, [facility] [place] [facility] [address] [facility] [id number] [place] [address] Jan, [facility] [place] [facility] [address] [facility] [id number] [place] [address] Nov, [facility] [place] [facility] [address] [id number] [place] [address] Nov, [facility] [place] [facility] [address] [id number] [place] [address] Nov, [facility] [place] [facility] [address] [facility] [id number] [place] [address] Nov, [facility] [place] [facility] [address] [id number] [place] [address] Nov, [facility] [place] [facility] [address] [id number], [place] [address] Nov, [facility] [place] [facility] [address] [id number] [place] [address] Oct, [facility] [place] [facility] [address] [id number], [place] [address] Oct, [facility] [place] [facility] [address] [facility] [id number], [place] [address] Oct, [facility] [place] [facility] [address] [id number] [place] [address] Sep, [facility] [place] [facility] [address] [id number] [place] [address] Sep, [facility] [place] [facility] [address] [id number] [place] [address] Aug, [facility] [place] [facility] [address] [id number] [place] [address] Aug, [facility] [place] [facility] [address] [id number] [place] [address] Aug, [facility] [place] [facility] [address] [id number] [place] [address] Aug, [facility] [place] [facility] [address] [id number] [place] [address] Jul, [facility] [place] [facility] [address] [id number] [place] [address] Jul, [facility] [place] [facility] [address] [id number] [place] [address] Jul, [facility] [place] [facility] [address] [id number] [place] [address] Jul, [facility] [place] [facility] [address] [id number] [place] [address] Jul, [facility] [place] [facility] [address] [id number] [place] [address] Jun, [facility] [place] [facility] [address] [id number] [place] [address] 10 Jun, 2013 [facility] [place] [facility] [address] [id number] [place] [address] May, [facility] [place] [facility] [address] [id number] [place] [address] 16 May, 2013 [facility] [place] [facility] [address] [id number] [place] [address] May, [facility] [address] [id number] [place] [address] May, [facility] [place] [facility] [address] [id number] [place] [address] May, [facility] [place] [facility] [address] [id number] [place] [address] May, [facility] [place] [facility] [address] [id number] [place] [address] Apr, [facility] [place] [facility] [address] [id number] [place] [address] Apr, [facility] [place] [facility] [address] [id number] [place] [address] Apr, [facility] [place] [facility] [address] [id number] [place] [address] Apr, [facility] [place] [facility] [address] [id number] [place] [address] Apr, [facility] [place] [facility] [address] [id number] [place] [address] Mar, [facility] [place] [facility] [address] [id number] [place] [address] Mar, [facility] [place] [facility] [address] [id number] [place] [address] Mar, [facility] [place] [facility] [address] [id number] [place] [address] February, [facility] [place] [facility] [address] [id number] [place] [address] February, [facility] [place] [facility] [address] [id number] [place] [address] February, [facility] [place] [facility] [address] [id number] [place] [address] Dec, [facility] [place] [facility] [address] [id number] [place] [address] 07 Dec, 2012 [facility] [place] [facility] [address] [id number] [place] [address] Dec, [facility] [place] [facility] [address] [id number] [place] [address] Oct, [facility] [place] [facility] [address] [id number] [place] [address] Oct, [facility] [place] [facility] [address] [id number] [place] [address] Sep, [facility] [place] [facility] [address] [id number] [place] [address] Sep, [facility] [place] [facility] [address] [id number] [place] [address] Aug, [facility] [place] [facility] [address] [id number] [place] [address] Aug, [facility] [place] [facility] [address] [id number] [place] [address] Aug, [facility] [place] [facility] [address] [id number] [place] [address] Aug, [facility] [place] [facility] [address] [facility] [id number] [place] [address] Aug, [facility] [place] [facility] [address] [id number] [place] [address] Aug, [facility] [place] [facility] [address] [id number] [place] [address] Jul, [facility] [place] [facility] [address] [id number] [place] [address] Jul, [facility] [place] [facility] [address] [id number] [place] [address] Jul, [facility] [place] [facility] [address] [id number] [place] [address] Jul, [facility] [address] [facility] [id number], [place] [address] Jul, [facility] [address] [facility] [id number], [place] [address] Jul, [facility] [address] [facility] [id number], [place] [address] Jun, [facility] [id number] [place] [address] Jun, [facility] [address] [facility] [id number], [place] [address] Jun, [facility] [address] [facility] [id number], [place] [address] Jun, IMMUNIZATIONS No Known Immunizations SOCIAL HISTORY Never Assessed REASON FOR VISIT wanting to get on chantix, weight loss concerns--Soraya Roth MA PLAN OF CARE VITAL SIGNS Height 72 in 2017-07-27 Weight 278.6 lbs 2017-07-27 Temperature 98.4 degrees Fahrenheit 2017-07-27 Heart Rate 88 bpm 2017-07-27 Respiratory Rate 22 2017-07-27 BMI 37.78 kg/m2 2017-07-27 Blood pressure systolic 148 mmHg 2017-07-27 Blood pressure diastolic 90 mmHg 2017-07-27 MEDICATIONS Medication Instructions Dosage Frequency Start Date End Date Duration Status Aspirin 81 MG Orally Once a day take 1 tablet (81 mg) by oral route once daily 24h Aug, 90 days Active Topamax 50 mg Orally Twice a day 1 tablet 12h Oct, 30 day(s) Active Incruse Ellipta 62.5 MCG/INH Inhalation Once a day 1 puff 24h Mar, Active Phentermine HCl 37.5 MG Orally Once a day 1 capsule 24h Jun, Active Chantix 1 MG Orally Twice a day 1 tablet 12h Jun, Dec, 30 day(s) Active Viagra 100 MG Orally Once a day 1 tablet as needed 24h Oct, Active Hydrochlorothiazide 25 MG Orally Once a day TAKE ONE TABLET BY MOUTH ONCE DAILY 24h 90 Active Toprol XL 100 MG TAKE ONE TABLET BY MOUTH ONCE DAILY 90 Active Protonix 40 MG Orally Once a day 1 tablet 24h 30 Active Phenytoin Sodium Extended 100 MG Orally Twice a day TAKE TWO CAPSULES BY MOUTH TWICE DAILY 12h 45 Active ProAir HFA 108 (90 Base) MCG/ACT Inhalation 4 times a day 2 puffs as needed 6h 28 Jun, 2017 Active RESULTS No Results PROCEDURES Procedure Date Ordered Result Body Site [facility] VISIT ESTABLISHED PATIENT Jul 27, 2017 INSTRUCTIONS MEDICATIONS ADMINISTERED No Known Medications [...] knee 07/31/2017 Hospitalization History surgeries Hospitalization History [facility]- Viral infection Aug 26 Hospitalization History [facility] [place]- Flu Sx 12/10/2016 Hospitalization History [facility] [place]- Congestion, runny nose and abd pain 12/21/2017
--- OUTSIDE RECORDS SUMMARY | 2019-03-19 07:35 | XMS REPORT ---
Author Author RENETTA CARDOZA Organization [facility] Address [address] [place] [address] Care Team Providers Care Nut Process Helper Name Role Phone RENETTA CARDOZA Unavailable PROBLEMS Type Condition ICD9-CM Code [id number] Code Onset Dates Condition Status SNOMED Code Problem Tobacco abuse Z72.0 Active 52672773 Problem Other chronic pain G89.29 Active 35369430 Problem Palpitations R00.2 Active 35158079 Problem COPD exacerbation J44.1 Active 971651272 Problem COPD with acute exacerbation J44.1 Active 912304789 Problem Non morbid obesity E66.9 Active 884610480 Problem Non morbid obesity due to excess calories E66.09 Active 912712387 Problem Other obesity due to excess calories E66.09 Active 055033033 Problem Panlobular emphysema J43.1 Active 0989904 Problem Chronic obstructive pulmonary disease, unspecified COPD type J44.9 Active 00599750 Problem LAURY (obstructive sleep apnea) G47.33 Active 65667958 Problem Edema, due to unspecified malnutrition type, unspecified type R60.9 Active 607074813 Problem Hypertension, benign I10 Active 72156037 Problem Coronary artery disease involving ugashik heart, angina presence unspecified, unspecified vessel or lesion type I25.10 Active 62748628 Problem Morbid obesity due to excess calories E66.01 Active 674397506 ALLERGIES Substance Reaction Event Type Date Status Diclofenac Unknown Drug Allergy Mar, Active ENCOUNTERS Encounter Location Date Diagnosis [facility] [address] [id number] [address] Jan, Medicare annual wellness visit, initial Z00.00 [facility] [address] [id number] [address] Nov, Panlobular emphysema J43.1 [facility] [id number] [place] [address] Nov, COPD exacerbation J44.1 [facility] [id number] [place] [address] 15 Nov, 2017 Viral URI J06.9 [facility] [id number] [place] [address] Nov, [facility] [address] [address] Nov, [facility] [id number] [place] [address] Sep, Other obesity due to excess calories E66.09 and Body mass index (BMI) of 36.0-36.9 in adult Z68.36 [place] [id number] [place] [address] Aug, [place] [address] [address] Aug, [place] [id number] [place] [address] Aug, Coronary artery disease involving ugashik heart, angina presence unspecified, unspecified vessel or lesion type I25.10 and Chronic obstructive pulmonary disease, unspecified COPD type J44.9 [facility] [id number] [place] [address] Jul, COPD with acute exacerbation J44.1 [facility] [id number] [place] [address] Jul, Non morbid obesity E66.9 [place] [id number] [place] [address] Jun, Panlobular emphysema J43.1 ; Tobacco abuse Z72.0 ; Tobacco abuse counseling Z71.6 and Non morbid obesity E66.9 [place] [id number] [place] [address] Apr, [place] [address] [id number] [address] Apr, [facility] [id number] [place] [address] Mar, COPD exacerbation J44.1 [place] [id number] [place] [address] Mar, Tear of medial meniscus of right knee, current, unspecified tear type, initial encounter S83.241A [place] [id number] [place] [address] Mar, Pain in right knee M25.561 [facility] [place] [id number] [place] [address] February, Pain in right knee M25.561 [place] [id number] [place] [address] February, Pain in right knee M25.561 [place] [id number] [place] [address] Dec, [place] [id number] [place] [address] Nov, [facility] [id number] [place] [address] Nov, Bronchitis J40 and Wheezing R06.2 [place] [id number] [place] [address] Oct, [place] [id number] [place] [address] Oct, [place] [id number] [place] [address] Oct, Non morbid obesity due to excess calories E66.09 ; Other chronic pain G89.29 and Pain in right knee M25.561 [place] [id number] [place] [address] Oct, Non morbid obesity due to excess calories E66.09 ; Other chronic pain G89.29 and Pain in right knee M25.561 [place] [address] [address] Oct, Pain in right knee M25.561 and Other chronic pain G89.29 [place] [address] [address] Aug, Encounter for immunization Z23 [place] [address] [address] Aug, [place] [address] [address] Aug, [place] [address] [address] Jun, Common wart B07.8 [facility] [place] [address] [address] May, Cellulitis of left elbow L03.114 [place] [address] [address] Mar, Torticollis, acute M43.6 and Leg pain, left M79.605 [place] [address] [address] February, Leg pain, left M79.605 [facility] [place] [address] [address] Dec, COPD exacerbation J44.1 [place] [address] [address] Dec, [place] [address] [address] Oct, Chronic obstructive pulmonary disease, unspecified COPD type J44.9 and Hyperglycemia R73.9 [place] [address] [address] Sep, Tobacco abuse Z72.0 ; Coronary artery disease involving ugashik heart, angina presence unspecified, unspecified vessel or lesion type I25.10 and Morbid obesity due to excess calories E66.01 [facility] [id number] [place] [address] Sep, [facility] [address] [address] Sep, Leg pain, left M79.605 [facility] [address] [address] Sep, [facility] [address] [address] Sep, [facility] [address] [address] Aug, Essential (primary) hypertension I10 [facility] [address] [address] Aug, Encounter for immunization Z23 [facility] [address] [address] Aug, [facility] [address] [address] May, Chronic airway obstruction, not elsewhere classified 496 [facility] [address] [address] May, [facility] [address] [address] May, [facility] [address] [address] May, Acute bronchitis 466.0 [facility] [address] [address] May, [facility] [address] [address] May, Hyperglycemia 790.29 [facility] [address] [address] Apr, [facility] [id number] [place] [address] Apr, Cough 786.2 ; Hyperglycemia 790.29 and COPD (chronic obstructive pulmonary disease) 496 [facility] [id number] [place] [address] Mar, Cough 786.2 ; Elevated glucose 790.29 ; Wheezing 786.07 ; COPD exacerbation 491.21 and Nicotine dependence 305.1 [facility] [id number] [place] [address] Mar, High risk medication use V58.69 [facility] [id number] [place] [address] Mar, High risk medication use V58.69 and Benign hypertension 401.1 [facility] [id number] [place] [address] Mar, [facility] [id number] [place] [address] February, [facility] [id number] [place] [address] February, [facility] [address] [place] [address] Jan, [facility] [id number] [place] [address] Jan, Benign hypertension 401.1 [facility] [address] [place] [address] Jan, [facility] [id number] [place] [address] Jan, [facility] [address] [place] [address] Dec, [facility] [place] [facility] [address] [id number] [place] [address] 27 Dec, 2014 [facility] [place] [facility] [address] [id number] [place] [address] 26 Dec, 2014 [facility] [place] [facility] [address] [id number] [place] [address] 18 Dec, 2014 [facility] [place] [facility] [address] [id number] [place] [address] 18 Dec, 2014 [facility] [place] [facility] [address] [id number] [place] [address] 2014 [facility] [place] [facility] [address] [id number] [place] [address] 2014 [facility] [place] [facility] [address] [id number] [place] [address] Dec, [facility] [place] [facility] [address] [id number] [place] [address] 13 Dec, 2014 [facility] [place] [facility] [address] [id number] [place] [address] Dec, [facility] [place] [facility] [address] [id number] [place] [address] 06 Dec, 2014 [facility] [place] [facility] [address] [id number] [place] [address] 05 Dec, 2014 [facility] [place] [facility] [address] [id number] [place] [address] 05 Dec, 2014 [facility] [place] [facility] [address] [id number] [place] [address] Dec, [facility] [place] [facility] [address] [id number] [place] [address] Dec, [facility] [place] [facility] [address] [id number] [place] [address] 16 Nov, 2014 [facility] [place] [facility] [address] [id number] [place] [address] Nov, [facility] [place] [facility] [address] [id number] [place] [address] Nov, [facility] [place] [facility] [address] [id number] [place] [address] Nov, [facility] [place] [facility] [address] [id number] [place] [address] Oct, [facility] [place] [facility] [address] [id number] [place] [address] Oct, [facility] [place] [facility] [address] [id number] [place] [address] Oct, [facility] [place] [facility] [address] [id number] [place] [address] Oct, [facility] [place] [facility] [address] [id number] [place] [address] Oct, [facility] [place] [facility] [address] [id number] [place] [address] Oct, [facility] [place] [facility] [address] [facility] [id number] [place] [address] Oct, [facility] [place] [facility] [address] [facility] [id number] [place] [address] Oct, [facility] [place] [facility] [address] [id number] [place] [address] Sep, [facility] [place] [facility] [address] [id number] [place] [address] Sep, [facility] [place] [facility] [address] [id number] [place] [address] Sep, [facility] [place] [facility] [address] [id number] [place] [address] Sep, [facility] [place] [facility] [address] [facility] [id number] [place] [address] Sep, [facility] [place] [facility] [address] [id number] [place] [address] Sep, [facility] [place] [facility] [address] [id number] [place] [address] Sep, [facility] [place] [facility] [address] [id number] [place] [address] Sep, [facility] [place] [facility] [address] [id number] [place] [address] Aug, [facility] [place] [facility] [address] [id number] [place] [address] Aug, [facility] [place] [facility] [address] [id number] [place] [address] Aug, [facility] [place] [facility] [address] [id number] [place] [address] Aug, [facility] [place] [facility] [address] [id number] [place] [address] Jul, [facility] [place] [facility] [address] [id number] [place] [address] Jul, [facility] [place] [facility] [address] [id number] [place] [address] Jul, [facility] [place] [facility] [address] [id number] [place] [address] Jul, [facility] [place] [facility] [address] [id number] [place] [address] Jul, [facility] [place] [facility] [address] [id number] [place] [address] Jul, [facility] [place] [facility] [address] [id number] [place] [address] Jul, [facility] [place] [facility] [address] [id number] [place] [address] Jul, [facility] [place] [facility] [address] [id number] [place] [address] Jul, [facility] [place] [facility] [address] [id number] [place] [address] Jul, [facility] [place] [facility] [address] [id number] [place] [address] Jul, [facility] [place] [facility] [address] [id number] [place] [address] Jul, [facility] [place] [facility] [address] [id number] [place] [address] Jul, [facility] [place] [facility] [address] [id number] [place] [address] Jul, [facility] [place] [facility] [address] [id number] [place] [address] Jul, [facility] [place] [facility] [address] [id number] [place] [address] Jul, [facility] [place] [facility] [address] [id number], [place] [address] Jul, [facility] [place] [facility] [address] [id number] [place] [address] Jul, [facility] [place] [facility] [address] [id number], [place] [address] Jul, [facility] [place] [facility] [address] [id number], [place] [address] Jul, [facility] [place] [facility] [address] [id number], [place] [address] Jul, [facility] [place] [facility] [address] [id number] [place] [address] Jul, [facility] [place] [facility] [address] [id number], [place] [address] Jun, [facility] [place] [facility] [address] [id number] [place] [address] Jun, [facility] [place] [facility] [address] [id number] [place] [address] 17 Jun, 2013 [facility] [place] [facility] [address] [id number] [place] [address] 17 Jun, 2013 [facility] [place] [facility] [address] [id number] [place] [address] 05 Jun, 2013 [facility] [place] [facility] [address] [id number] [place] [address] 05 Sep, 2013 [facility] [place] [facility] [address] [id number] [place] [address] 04 Jun, 2013 [facility] [place] [facility] [address] [id number] [place] [address] Jun, 2013 [facility] [place] [facility] [address] [id number] [place] [address] Jun, 2013 [facility] [place] [facility] [address] [id number] [place] [address] Jun, 2013 [facility] [place] [facility] [address] [id number] [place] [address] May, [facility] [place] [facility] [address] [id number] [place] [address] May, [facility] [place] [facility] [address] [id number] [place] [address] May, [facility] [place] [facility] [address] [id number] [place] [address] May, [facility] [place] [facility] [address] [id number] [place] [address] May, [facility] [place] [facility] [address] [id number] [place] [address] May, [facility] [place] [facility] [address] [id number] [place] [address] May, [facility] [place] [facility] [address] [id number] [place] [address] May, [facility] [place] [facility] [address] [id number] [place] [address] Apr, [facility] [place] [facility] [address] [id number] [place] [address] Apr, [facility] [place] [facility] [address] [id number] [place] [address] Apr, [facility] [place] [facility] [address] [id number] [place] [address] Apr, [facility] [place] [facility] [address] [id number] [place] [address] Apr, [facility] [place] [facility] [address] [id number] [place] [address] Apr, [facility] [place] [facility] [address] [id number] [place] [address] Mar, [facility] [place] [facility] [address] [id number] [place] [address] Mar, [facility] [place] [facility] [address] [id number] [place] [address] Mar, [facility] [place] [facility] [address] [id number] [place] [address] Mar, [facility] [place] [facility] [address] [id number] [place] [address] Mar, [facility] [place] [facility] [address] [id number] [place] [address] Mar, [facility] [place] [facility] [address] [id number] [place] [address] Mar, [facility] [place] [facility] [address] [id number] [place] [address] Mar, [facility] [place] [facility] [address] [id number] [place] [address] February, [facility] [place] [facility] [address] [id number], [place] [address] February, [facility] [address] [id number] [place] [address] February, [facility] [place] [facility] [address] [id number] [place] [address] February, [facility] [place] [facility] [address] [facility] [id number] [place] [address] February, [facility] [place] [facility] [address] [id number] [place] [address] Jan, [facility] [place] [facility] [address] [id number] [place] [address] Jan, [facility] [place] [facility] [address] [facility] [id number], [place] [address] Nov, [facility] [place] [facility] [address] [facility] [id number] [place] [address] Nov, [facility] [place] [facility] [address] [id number] [place] [address] Nov, [facility] [place] [facility] [address] [facility] [id number] [place] [address] Nov, [facility] [place] [facility] [address] [facility] [id number] [place] [address] Nov, [facility] [place] [facility] [address] [facility] [id number] [place] [address] Nov, [facility] [place] [facility] [address] [id number], [place] [address] Oct, [facility] [place] [facility] [address] [id number], [place] [address] Oct, [facility] [place] [facility] [address] [facility] [id number], [place] [address] Oct, [facility] [place] [facility] [address] [facility] [id number], [place] [address] Sep, [facility] [place] [facility] [address] [id number] [place] [address] Sep, [facility] [place] [facility] [address] [id number] [place] [address] Aug, [facility] [place] [facility] [address] [id number] [place] [address] Aug, [facility] [place] [facility] [address] [id number] [place] [address] Aug, [facility] [place] [facility] [address] [id number] [place] [address] Aug, [facility] [place] [facility] [address] [id number] [place] [address] Jul, [facility] [place] [facility] [address] [id number] [place] [address] Jul, [facility] [place] [facility] [address] [id number] [place] [address] Jul, [facility] [place] [facility] [address] [id number] [place] [address] Jul, [facility] [place] [facility] [address] [id number] [place] [address] Jul, [facility] [place] [facility] [address] [id number] [place] [address] Jun, [facility] [place] [facility] [address] [id number] [place] [address] 10 Jun, 2013 [facility] [place] [facility] [address] [id number] [place] [address] May, [facility] [place] [facility] [address] [id number] [place] [address] 16 May, 2013 [facility] [place] [facility] [address] [id number] [place] [address] 08 May, 2013 [facility] [place] [facility] [address] [id number] [place] [address] May, [facility] [address] [id number] [place] [address] May, [facility] [place] [facility] [address] [id number] [place] [address] May, [facility] [place] [facility] [address] [id number] [place] [address] Apr, [facility] [place] [facility] [address] [id number] [place] [address] Apr, [facility] [place] [facility] [address] [id number] [place] [address] Apr, [facility] [place] [facility] [address] [id number] [place] [address] Apr, [facility] [place] [facility] [address] [id number] [place] [address] Apr, [facility] [place] [facility] [address] [id number] [place] [address] Mar, [facility] [place] [facility] [address] [id number] [place] [address] Mar, [facility] [place] [facility] [address] [id number] [place] [address] Mar, [facility] [place] [facility] [address] [id number] [place] [address] February, [facility] [place] [facility] [address] [id number] [place] [address] February, [facility] [place] [facility] [address] [id number] [place] [address] February, [facility] [place] [facility] [address] [id number] [place] [address] Dec, [facility] [place] [facility] [address] [id number] [place] [address] Dec, [facility] [place] [facility] [address] [id number] [place] [address] Dec, [facility] [place] [facility] [address] [id number] [place] [address] Oct, [facility] [place] [facility] [address] [id number] [place] [address] Oct, [facility] [place] [facility] [address] [id number] [place] [address] Sep, [facility] [place] [facility] [address] [id number] [place] [address] Sep, [facility] [place] [facility] [address] [id number] [place] [address] Aug, [facility] [place] [facility] [address] [id number] [place] [address] Aug, [facility] [place] [facility] [address] [id number] [place] [address] Aug, [facility] [place] [facility] [address] [id number] [place] [address] Aug, [facility] [place] [facility] [address] [id number] [place] [address] Aug, [facility] [place] [facility] [address] [facility] [id number] [place] [address] Aug, [facility] [place] [facility] [address] [id number] [place] [address] Jul, [facility] [place] [facility] [address] [id number] [place] [address] Jul, [facility] [place] [facility] [address] [id number] [place] [address] Jul, [facility] [place] [facility] [address] [id number] [place] [address] Jul, [facility] [place] [facility] [address] [id number] [place] [address] Jul, [facility] [address] [facility] [id number], [place] [address] Jul, [facility] [address] [facility] [id number], [place] [address] Jun, [facility] [address] [facility] [id number], [place] [address] Jun, [facility] [address] [facility] [id number], [place] [address] Jun, [facility] [address] [facility] [id number], [place] [address] Jun, IMMUNIZATIONS No Known Immunizations SOCIAL HISTORY Never Assessed REASON FOR VISIT knee pain - Wants an antibiotic due to some congestion in his lungs. Wants a re fill on his Encruse Inhaler 62.5. Dr. Horner prescribed his inhalers but he wou ld like Ben to take over. - Wei RASHID PLAN OF CARE VITAL SIGNS Height 72 in 2017-04-28 Weight 278.5 lbs 2017-04-28 Temperature 98.1 degrees Fahrenheit 2017-04-28 Heart Rate 88 bpm 2017-04-28 Respiratory Rate 20 2017-04-28 BMI 37.77 kg/m2 2017-04-28 Blood pressure systolic 122 mmHg 2017-04-28 Blood pressure diastolic 64 mmHg 2017-04-28 MEDICATIONS Medication Instructions Dosage Frequency Start Date End Date Duration Status Phenytoin Sodium Extended 100 MG Orally Twice a day TAKE TWO CAPSULES BY MOUTH TWICE DAILY 12h 90 days Active Hydrochlorothiazide 25 MG Orally Once a day TAKE ONE TABLET BY MOUTH ONCE DAILY 24h 90 Active Topiramate 100 MG Orally Twice a day 1 capsule 12h 90 days Active Viagra 100 MG Orally Once a day 1 tablet as needed 24h Oct, Active Incruse Ellipta 62.5 MCG/INH Inhalation Once a day 1 puff 24h Mar, Active PredniSONE 20 mg Orally Once a day 2 tablets 24h Mar, Apr, 05 days Active Protonix 40 MG Orally Once a day 1 tablet 24h 30 Active Naprosyn 500 MG Orally 2 times a day, pc 1 Oct, 30 days Active Aspirin 81 MG Orally Once a day take 1 tablet (81 mg) by oral route once daily 24h Aug, 90 days Active Topamax 50 mg Orally Twice a day 1 tablet 12h 31 Oct, 2016 30 day(s) Active Toprol XL 100 MG Orally Once a day TAKE ONE TABLET BY MOUTH ONCE DAILY 24h 90 days Active Doxycycline Hyclate 100 mg Orally every 12 hrs 1 capsule 12h 30 Mar, 2017 Apr, 10 days Active RESULTS No Results PROCEDURES Procedure Date Ordered Result Body Site [facility] VISIT ESTABLISHED PATIENT April 28, 2017 INSTRUCTIONS MEDICATIONS ADMINISTERED No Known Medications [...] knee 07/31/2017 Hospitalization History surgeries Hospitalization History [facility]- Viral infection Aug 26 Hospitalization History [facility]- Flu Sx 12/10/2016 Hospitalization History [facility]- Congestion, runny nose and abd pain 12/21/2017
--- OUTSIDE RECORDS SUMMARY | 2019-03-19 07:36 | XMS REPORT ---
Author Author RENETTA CARDOZA Organization [facility] Address [address] [place] [address] Care Team Providers Care Director [employer] Name Role Phone RENETTA CARDOZA Unavailable PROBLEMS Type Condition ICD9-CM Code NVA24-DN Code Onset Dates Condition Status SNOMED Code Problem Tobacco abuse Z72.0 Active 23777970 Problem Other chronic pain G89.29 Active 91284800 Problem Palpitations R00.2 Active 90323408 Problem COPD exacerbation J44.1 Active 029853253 Problem COPD with acute exacerbation J44.1 Active 352322144 Problem Non morbid obesity E66.9 Active 233143337 Problem Non morbid obesity due to excess calories E66.09 Active 337278747 Problem Other obesity due to excess calories E66.09 Active 442747371 Problem Panlobular emphysema J43.1 Active 6802321 Problem Chronic obstructive pulmonary disease, unspecified COPD type J44.9 Active 98082136 Problem LAURY (obstructive sleep apnea) G47.33 Active 85504739 Problem Edema, due to unspecified malnutrition type, unspecified type R60.9 Active 768162714 Problem Hypertension, benign I10 Active 85622213 Problem Coronary artery disease involving coushatta heart, angina presence unspecified, unspecified vessel or lesion type I25.10 Active 29831328 Problem Morbid obesity due to excess calories E66.01 Active 890222011 ALLERGIES No Information ENCOUNTERS Encounter Location Date Diagnosis [facility] [id number] [address] Jan, Medicare annual wellness visit, initial Z00.00 [facility] [id number] [place] [address] Nov, Panlobular emphysema J43.1 [facility] [id number] [address] Nov, COPD exacerbation J44.1 [facility] [id number] [place] [address] 15 Nov, 2017 Viral URI J06.9 [facility] [id number] [place] [address] Nov, [facility] [id number] [place] [address] Nov, [facility] [address] [address] Sep, Other obesity due to excess calories E66.09 and Body mass index (BMI) of 36.0-36.9 in adult Z68.36 [place] [id number] [place] [address] Aug, [place] [id number] [place] [address] Aug, [place] [id number] [place] [address] Aug, Coronary artery disease involving coushatta heart, angina presence unspecified, unspecified vessel or lesion type I25.10 and Chronic obstructive pulmonary disease, unspecified COPD type J44.9 [facility] [id number] [place] [address] Jul, COPD with acute exacerbation J44.1 [facility] [id number] [place] [address] Jul, Non morbid obesity E66.9 [place] [id number] [place] [address] Jun, Panlobular emphysema J43.1 ; Tobacco abuse Z72.0 ; Tobacco abuse counseling Z71.6 and Non morbid obesity E66.9 [facility] [id number] [place] [address] Apr, [facility] [id number] [place] [address] Apr, [facility] [id number] [place] [address] Mar, COPD exacerbation J44.1 [place] [id number] [place] [address] Mar, Tear of medial meniscus of right knee, current, unspecified tear type, initial encounter S83.241A [place] [id number] [place] [address] Mar, Pain in right knee M25.561 [facility] [place] [address] [address] February, Pain in right knee M25.561 [place] [address] [address] February, Pain in right knee M25.561 [place] [address] [address] Dec, [place] [id number] [place] [address] Nov, [facility] [id number] [place] [address] Nov, Bronchitis J40 and Wheezing R06.2 [place] [id number] [place] [address] Oct, [place] [id number] [place] [address] Oct, [place] [id number] [place] [address] Oct, Non morbid obesity due to excess calories E66.09 ; Other chronic pain G89.29 and Pain in right knee M25.561 [place] [id number] [place] [address] Oct, Non morbid obesity due to excess calories E66.09 ; Other chronic pain G89.29 and Pain in right knee M25.561 [place] [address] [address] Oct, Pain in right knee M25.561 and Other chronic pain G89.29 [place] [address] [address] 28 Aug, 2016 Encounter for immunization Z23 [place] [address] [address] Aug, [place] [address] [address] Aug, [place] [address] [address] Jun, Common wart B07.8 [facility] [place] [address] [address] May, Cellulitis of left elbow L03.114 [place] [address] [address] Mar, Torticollis, acute M43.6 and Leg pain, left M79.605 [place] [address] [address] February, Leg pain, left M79.605 [facility] [place] [address] [address] Dec, COPD exacerbation J44.1 [place] [address] [address] Dec, [place] [address] [address] Oct, Chronic obstructive pulmonary disease, unspecified COPD type J44.9 and Hyperglycemia R73.9 [place] [address] [address] Sep, Tobacco abuse Z72.0 ; Coronary artery disease involving coushatta heart, angina presence unspecified, unspecified vessel or lesion type I25.10 and Morbid obesity due to excess calories E66.01 [facility] [address] [address] Sep, [facility] [address] [address] Sep, Leg pain, left M79.605 [facility] [address] [address] Sep, [facility] [address] [address] Sep, [facility] [address] [address] Aug, Essential (primary) hypertension I10 [place] [address] [address] Aug, Encounter for immunization Z23 [facility] [address] [address] Aug, [facility] [address] [address] May, Chronic airway obstruction, not elsewhere classified 496 [facility] [id number] [place] [address] May, [facility] [address] [address] May, [facility] [address] [address] May, Acute bronchitis 466.0 [facility] [address] [address] May, [facility] [address] [address] May, Hyperglycemia 790.29 [facility] [address] [address] Apr, [facility] [id number] [place] [address] Apr, Cough 786.2 ; Hyperglycemia 790.29 and COPD (chronic obstructive pulmonary disease) 496 [facility] [id number] [place] [address] Mar, Cough 786.2 ; Elevated glucose 790.29 ; Wheezing 786.07 ; COPD exacerbation 491.21 and Nicotine dependence 305.1 [facility] [address] [place] [address] Mar, High risk medication use V58.69 [facility] [id number] [place] [address] Mar, High risk medication use V58.69 and Benign hypertension 401.1 [facility] [id number] [place] [address] Mar, [facility] [address], [place] [address] February, [facility] [id number] [place] [address] February, [facility] [address], [place] [address] Jan, [facility] [id number] [place] [address] Jan, Benign hypertension 401.1 [facility] [address], [place] [address] Jan, [facility] [id number] [place] [address] Jan, [facility] [address], [place] [address] Dec, [facility] [id number] [place] [address], [place] [address] 27 Dec, 2014 [facility] [place] [facility] [address] [id number] [place] [address] 26 Dec, 2014 [facility] [place] [facility] [address] [id number] [place] [address] 18 Dec, 2014 [facility] [place] [facility] [address] [id number] [place] [address] 18 Dec, 2014 [facility] [place] [facility] [address] [id number] [place] [address] 2014 [facility] [place] [facility] [address] [id number] [place] [address] 2014 [facility] [place] [facility] [address] [id number] [place] [address] Dec, [facility] [place] [facility] [address] [id number] [place] [address] Dec, [facility] [place] [facility] [address] [id number] [place] [address] Dec, [facility] [place] [facility] [address] [id number] [place] [address] Dec, [facility] [place] [facility] [address] [id number] [place] [address] Dec, [facility] [place] [facility] [address] [id number] [place] [address] 05 Dec, 2014 [facility] [place] [facility] [address] [id number] [place] [address] Dec, [facility] [place] [facility] [address] [id number] [place] [address] Dec, [facility] [place] [facility] [address] [id number] [place] [address] 16 Nov, 2014 [facility] [place] [facility] [address] [id number] [place] [address] 16 Nov, 2014 [facility] [place] [facility] [address] [id number] [place] [address] Nov, [facility] [place] [facility] [address] [id number] [place] [address] Nov, [facility] [place] [facility] [address] [id number] [place] [address] Oct, [facility] [place] [facility] [address] [id number] [place] [address] Oct, [facility] [place] [facility] [address] [id number] [place] [address] Oct, [facility] [place] [facility] [address] [id number] [place] [address] Oct, [facility] [place] [facility] [address] [id number] [place] [address] Oct, [facility] [place] [facility] [address] [id number] [place] [address] Oct, [facility] [place] [facility] [address] [id number] [place] [address] Oct, [facility] [place] [facility] [address] [id number] [place] [address] Oct, [facility] [place] [facility] [address] [id number] [place] [address] Sep, [facility] [place] [facility] [address] [id number] [place] [address] Sep, [facility] [place] [facility] [address] [id number] [place] [address] Sep, [facility] [place] [facility] [address] [id number] [place] [address] Sep, [facility] [place] [facility] [address] [id number] [place] [address] Sep, [facility] [place] [facility] [address] [id number] [address] Sep, [facility] [place] [facility] [address] [id number] [place] [address] Sep, [facility] [place] [facility] [address] [id number] [place] [address] Sep, [facility] [place] [facility] [address] [id number] [place] [address] Aug, [facility] [place] [facility] [address] [id number] [place] [address] Aug, [facility] [place] [facility] [address] [id number] [place] [address] Aug, [facility] [place] [facility] [address] [id number] [place] [address] Aug, [facility] [place] [facility] [address] [id number] [place] [address] Jul, [facility] [place] [facility] [address] [id number] [place] [address] Jul, [facility] [place] [facility] [address] [id number] [place] [address] Jul, [facility] [place] [facility] [address] [id number] [place] [address] Jul, [facility] [place] [facility] [address] [id number], [place] [address] Jul, [facility] [place] [facility] [address] [id number], [place] [address] Jul, [facility] [place] [facility] [address] [id number] [place] [address] Jul, [facility] [place] [facility] [address] [id number] [place] [address] Jul, [facility] [place] [facility] [address] [id number] [place] [address] Jul, [facility] [place] [facility] [address] [id number] [place] [address] Jul, 2013 [facility] [place] [facility] [address] [id number] [place] [address] Jul, [facility] [place] [facility] [address] [id number] [place] [address] Jul, 2013 [facility] [place] [facility] [address] [id number] [place] [address] Jul, 2013 [facility] [place] [facility] [address] [id number] [place] [address] Jul, 2013 [facility] [place] [facility] [address] [id number] [place] [address] Jul, [facility] [place] [facility] [address] [id number] [place] [address] Jul, 2013 [facility] [place] [facility] [address] [id number] [place] [address] Jul, 2013 [facility] [place] [facility] [address] [id number] [place] [address] Jul, [facility] [place] [facility] [address] [id number] [place] [address] Jul, [facility] [place] [facility] [address] [id number] [place] [address] Jul, [facility] [place] [facility] [address] [id number] [place] [address] Jul, [facility] [place] [facility] [address] [id number] [place] [address] Jul, [facility] [place] [facility] [address] [id number] [place] [address] Jun, [facility] [place] [facility] [address] [id number] [place] [address] Jun, [facility] [place] [facility] [address] [id number] [place] [address] Jun, [facility] [place] [facility] [address] [id number] [place] [address] Jun, 2013 [facility] [place] [facility] [address] [id number] [place] [address] Jun, 2013 [facility] [place] [facility] [address] [id number] [place] [address] Jun, 2013 [facility] [place] [facility] [address] [id number] [place] [address] Jun, 2013 [facility] [place] [facility] [address] [id number] [place] [address] Jun, 2013 [facility] [place] [facility] [address] [id number] [place] [address] Jun, 2013 [facility] [place] [facility] [address] [id number] [place] [address] Jun, 2013 [facility] [place] [facility] [address] [id number] [place] [address] May, [facility] [place] [facility] [address] [id number] [place] [address] May, [facility] [place] [facility] [address] [id number] [place] [address] May, [facility] [place] [facility] [address] [id number] [place] [address] May, [facility] [place] [facility] [address] [id number], [place] [address] May, [facility] [place] [facility] [address] [id number] [place] [address] May, [facility] [place] [facility] [address] [id number] [place] [address] May, [facility] [place] [facility] [address] [id number] [place] [address] May, [facility] [place] [facility] [address] [id number] [place] [address] Apr, [facility] [place] [facility] [address] [id number] [place] [address] Apr, [facility] [place] [facility] [address] [id number] [place] [address] Apr, [facility] [place] [facility] [address] [id number] [place] [address] Apr, [facility] [place] [facility] [address] [id number] [place] [address] Apr, [facility] [place] [facility] [address] [id number] [place] [address] Apr, [facility] [place] [facility] [address] [id number] [place] [address] Mar, [facility] [place] [facility] [address] [id number] [place] [address] Mar, [facility] [place] [facility] [address] [id number] [place] [address] Mar, [facility] [place] [facility] [address] [id number] [place] [address] Mar, [facility] [place] [facility] [address] [id number] [place] [address] Mar, [facility] [place] [facility] [address] [id number] [place] [address] Mar, [facility] [place] [facility] [address] [id number] [place] [address] Mar, [facility] [place] [facility] [address] [id number] [place] [address] Mar, [facility] [place] [facility] [address] [id number] [place] [address] February, [facility] [place] [facility] [address] [id number] [place] [address] February, [facility] [place] [facility] [address] [id number] [place] [address] February, [facility] [place] [facility] [address] [id number] [place] [address] February, [facility] [place] [facility] [address] [id number] [place] [address] February, [facility] [place] [facility] [address] [id number] [place] [address] Jan, [facility] [place] [facility] [address] [id number] [place] [address] Jan, [facility] [place] [facility] [address] [id number] [place] [address] Nov, [facility] [place] [facility] [address] [facility] [id number] [place] [address] Nov, [facility] [place] [facility] [address] [id number] [place] [address] Nov, [facility] [place] [facility] [address] [id number] [place] [address] Nov, [facility] [place] [facility] [address] [facility] [facility] [id number] [place] [address] Nov, [facility] [place] [facility] [address] [facility] [facility] [id number] [place] [address] Nov, [facility] [place] [facility] [address] [id number], [place] [address] Oct, [facility] [place] [facility] [address] [id number] [place] [address] Oct, [facility] [place] [facility] [address] [id number] [place] [address] Oct, [facility] [place] [facility] [address] [id number] [place] [address] Sep, [facility] [place] [facility] [address] [id number], [place] [address] Sep, [facility] [place] [facility] [address] [id number] [place] [address] Aug, [facility] [place] [facility] [address] [id number] [place] [address] Aug, [facility] [place] [facility] [address] [facility] [facility] [id number] [place] [address] Aug, [facility] [place] [facility] [address] [id number] [place] [address] Aug, [facility] [place] [facility] [address] [id number] [place] [address] Jul, [facility] [place] [facility] [address] [id number] [place] [address] Jul, [facility] [place] [facility] [address] [facility] [address] [facility] [id number], [place] [address] Jul, [facility] [place] [facility] [address] [id number] [place] [address] Jul, [facility] [place] [facility] [address] [facility] [address] [facility] [id number] [place] [address] Jul, [facility] [place] [facility] [address] [facility] [id number] [place] [address] Jun, [facility] [place] [facility] [address] [id number] [place] [address] Jun, [facility] [place] [facility] [address] [id number], [place] [address] May, [facility] [place] [facility] [address] [id number] [place] [address] 16 May, 2013 [facility] [place] [facility] [address] [facility] [id number] [place] [address] May, [facility] [place] [facility] [address] [facility] [id number] [place] [address] May, [facility] [place] [facility] [address] [id number] [place] [address] May, [facility] [place] [facility] [address] [id number] [place] [address] May, [facility] [place] [facility] [address] [id number] [place] [address] Apr, [facility] [place] [facility] [address] [id number] [place] [address] Apr, [facility] [place] [facility] [address] [id number] [place] [address] Apr, [facility] [place] [facility] [address] [id number] [place] [address] Apr, [facility] [place] [facility] [address] [id number] [place] [address] Apr, [facility] [place] [facility] [address] [id number] [place] [address] Mar, [facility] [place] [facility] [address] [id number] [place] [address] Mar, [facility] [place] [facility] [address] [id number] [place] [address] Mar, [facility] [place] [facility] [address] [id number] [place] [address] February, [facility] [place] [facility] [address] [id number] [place] [address] February, [facility] [place] [facility] [address] [id number] [place] [address] February, [facility] [place] [facility] [address] [id number] [place] [address] Dec, [facility] [place] [facility] [address] [id number] [place] [address] Dec, [facility] [place] [facility] [address] [id number] [place] [address] Dec, [facility] [place] [facility] [address] [id number] [place] [address] Oct, [facility] [place] [facility] [address] [id number] [place] [address] Oct, [facility] [place] [facility] [address] [facility] [id number] [place] [address] Sep, [facility] [place] [facility] [address] [id number] [place] [address] Sep, [facility] [place] [facility] [address] [id number] [place] [address] Aug, [facility] [place] [facility] [address] [id number] [place] [address] Aug, [facility] [place] [facility] [address] [id number] [place] [address] Aug, [facility] [place] [facility] [address] [id number], [place] [address] Aug, [facility] [place] [facility] [address] [id number], [place] [address] Aug, [facility] [place] [facility] [address] [id number], [place] [address] Aug, [facility] [place] [facility] [address] [id number], [place] [address] Jul, [facility] [place] [facility] [address] [id number], [place] [address] Jul, [facility] [place] [facility] [address] [id number], [place] [address] Jul, [facility] [place] [facility] [address] [id number], [place] [address] Jul, [facility] [place] [facility] [address] [facility] [id number], [place] [address] Jul, [facility] [place] [facility] [address] [facility] [id number] [place] [address] Jul, [facility] [address] [facility] [id number], [place] [address] Jun, [facility] [address] [facility] [id number], [place] [address] Jun, [facility] [address] [facility] [id number], [place] [address] Jun, [facility] [address] [facility] [id number], [place] [address] Jun, IMMUNIZATIONS No Known Immunizations SOCIAL HISTORY Never Assessed REASON FOR VISIT PLAN OF CARE VITAL SIGNS MEDICATIONS Medication Instructions Dosage Frequency Start Date End Date Duration Status Amoxicillin 500 mg Orally 3 times a day 1 capsule 8h Apr, Apr, 10 day(s) Active RESULTS No Results PROCEDURES No [...] knee 07/31/2017 Hospitalization History surgeries Hospitalization History [facility]- Viral infection Aug 26 Hospitalization History [facility]- Flu Sx 12/10/2016 Hospitalization History [facility]- Congestion, runny nose and abd pain 12/21/2017
--- OUTSIDE RECORDS SUMMARY | 2019-03-19 07:41 | XMS REPORT | Continuity of Care Document ---
Author Organization Unknown Address Unknown Allergies Active Description Code Type Severity Reaction Onset Reported/Identified Relationship to Patient Clinical Status Yes No Known Drug Allergies [id number] Drug Allergy Unknown N/A 08/21/2012 Yes diclofenac sodium 75 mg tablet,delayed release (DR/EC) Drug Allergy N/A N/A 04/21/2014 Yes diclofenac [id number] Drug Allergy Unknown SWELLING 10/14/2015 Yes diclofenac [id number] Drug Allergy Moderate SWELLING 06/15/2017 Medications There [...] EXAMINATION AT A HEALTH CARE FACILITY 07/14/2012 FRANK FINLEY APRN S 368.8 OTHER SPECIFIED VISUAL DISTURBANCES 07/14/2012 TUSHAR BAG FILLER MACHINE OPERATORCORNELIAA S 607.84 IMPOTENCE OF ORGANIC ORIGIN 07/14/2012 TUSHAR BAG FILLER MACHINE OPERATORBRANNONFRANK S 780.2 SYNCOPE AND COLLAPSE 07/14/2012 TUSHAR BAG FILLER MACHINE OPERATORCORNELIA HaA S V65.42 COUNSELING - SMOKING CESSATION 07/14/2012 TUSHAR BAG FILLER MACHINE OPERATORCORNELIA HaA S V70.0 ROUTINE GENERAL MEDICAL EXAMINATION AT A HEALTH CARE FACILITY 07/14/2012 BORJA VICENTE MYRICKA K 368.8 OTHER SPECIFIED VISUAL DISTURBANCES 07/14/2012 JONH MYRICK BRANDEN K 607.84 IMPOTENCE OF ORGANIC ORIGIN 07/14/2012 BORJA DO BRANDEN K 780.2 SYNCOPE AND COLLAPSE 07/14/2012 JONH MYRICK BRANDEN K V65.42 COUNSELING - SMOKING CESSATION 07/14/2012 JONH MYRICK BRANDEN K V70.0 ROUTINE GENERAL MEDICAL EXAMINATION [...] AT A HEALTH CARE FACILITY 07/14/2012 JENNA LOVNIG MD 368.8 OTHER SPECIFIED VISUAL DISTURBANCES 07/14/2012 [...] 08/13/2012 ERNESTINE ANDREW MD 276.51 DEHYDRATION 08/13/2012 KAMRAN ERAZO, ERNESTINE 790.29 OTHER ABNORMAL GLUCOSE 08/13/2012 276.51 DEHYDRATION [...] APRN T 790.29 OTHER ABNORMAL GLUCOSE 08/13/2012 CORNELIA FINLEY APRNA S 276.51 DEHYDRATION 08/13/2012 TUSHARCORNELIA COFFMAN APRNA S 790.29 OTHER ABNORMAL GLUCOSE 08/13/2012 BORJA [...] APRN T 790.29 OTHER ABNORMAL GLUCOSE 08/13/2012 SHAKA ERAZO [...] APRN T 790.29 OTHER ABNORMAL GLUCOSE 08/13/2012 JENNA LOVING [...] 345.90 SEIZURE DISORDER 08/22/2012 RENETTA CARDOZA APRN T 345.90 SEIZURE DISORDER 08/22/2012 BORJA DO, BRANDEN K 345.90 SEIZURE DISORDER 08/22/2012 RENETTA CARDOZA APRN T 345.90 SEIZURE DISORDER 08/22/2012 RENETTA CARDOZA APRN T 345.90 SEIZURE DISORDER 08/22/2012 BORJA DO, BRANDEN K 345.90 SEIZURE DISORDER 08/22/2012 BORJA DO, BRANDEN K 345.90 SEIZURE DISORDER 08/22/2012 RENETTA CARDOZA APRN T 345.90 SEIZURE DISORDER 08/22/2012 RENETTA CARDOZA APRN 345.90 SEIZURE DISORDER 08/22/2012 RENETTA CARDOZA APRN T 345.90 SEIZURE DISORDER 08/22/2012 RENETTA CARDOZA APRN T 345.90 SEIZURE DISORDER 08/22/2012 FRANK FINLEY APRN [...] 345.90 SEIZURE DISORDER 08/22/2012 RENETTA CARDOZA APRN T 345.90 SEIZURE DISORDER 09/21/2012 461.9 SINUSITIS ACUTE [...] APRN T 466.0 BRONCHITIS, ACUTE 09/21/2012 NANI FORRESTER, RENETTA T 461.9 SINUSITIS ACUTE 09/21/2012 NANI FORRESTER, RENETTA T 466.0 BRONCHITIS, ACUTE 09/21/2012 NANI FORRESTER, RENETTA T 461.9 SINUSITIS ACUTE 09/21/2012 NANI FORRESTER, RENETTA T 466.0 BRONCHITIS, ACUTE 09/21/2012 TUSHAR BAG FILLER MACHINE OPERATOR, FRANK S 461.9 SINUSITIS ACUTE 09/21/2012 TUSHARAUGUSTUS MILLERN, FRANK S 466.0 BRONCHITIS, ACUTE 09/21/2012 BORJA DO, BRANDEN K 461.9 SINUSITIS ACUTE 09/21/2012 BORJA DO, BRANDEN K 466.0 BRONCHITIS, ACUTE 09/21/2012 FABIENNE ERAZO, JENNA 461.9 SINUSITIS ACUTE 09/21/2012 FABIENNE ERAZO, JENNA 466.0 BRONCHITIS, ACUTE 09/21/2012 SHAKA ERAZO, ALI 461.9 SINUSITIS ACUTE 09/21/2012 SHAKA ERAZO, ALI 466.0 BRONCHITIS, ACUTE 09/21/2012 SHAKA ERAZO, ALI 461.9 SINUSITIS ACUTE 09/21/2012 SHAKA ERAZO, ALI 466.0 BRONCHITIS, ACUTE 09/21/2012 RENETTA CARDOZA APRN T 461.9 SINUSITIS ACUTE 09/21/2012 RENETTA CARDOZA APRN T 466.0 BRONCHITIS, ACUTE 09/21/2012 SHAKA ERAZO, [...] CARDOZA APRN T 466.0 BRONCHITIS, ACUTE 09/21/2012 JENNA LOVING MD 461.9 SINUSITIS ACUTE 09/21/2012 JENNA LOVING MD 466.0 BRONCHITIS, ACUTE 09/21/2012 RENETTA CARDOZA APRN T 461.9 SINUSITIS ACUTE 09/21/2012 RENETTA CARDOZA APRN 466.0 BRONCHITIS, ACUTE 09/21/2012 RENETTA CARDOZA APRN 461.9 SINUSITIS ACUTE 09/21/2012 RENETTA CARDOZA APRN 466.0 BRONCHITIS, ACUTE 10/31/2012 496 COPD 10/31/2012 496 COPD 10/31/2012 ERNESTINE ANDREW MD 496 COPD 10/31/2012 496 COPD 10/31/2012 496 COPD 10/31/2012 496 COPD 10/31/2012 496 COPD 10/31/2012 496 COPD 10/31/2012 496 COPD 10/31/2012 496 COPD 10/31/2012 RENETTA CARDOZA APRN 496 COPD 10/31/2012 BORJA DO, BRANDEN K 496 COPD 10/31/2012 RENETTA CARDOZA APRN 496 COPD 10/31/2012 RENETTA CARDOZA APRN T 496 COPD 10/31/2012 BORJA DO, BRANDEN K 496 COPD 10/31/2012 BORJA DO, BRANDEN K 496 COPD 10/31/2012 RENETTA CARDOZA APRN 496 CHRONIC OBSTRUCTIVE PULMONARY DISEASE 10/31/2012 RENETTA CARDOZA APRN T 496 CHRONIC OBSTRUCTIVE PULMONARY DISEASE 10/31/2012 RENETTA CARDOZA APRN 496 CHRONIC OBSTRUCTIVE PULMONARY DISEASE 10/31/2012 RENETTA CARDOZA APRN 496 CHRONIC OBSTRUCTIVE PULMONARY DISEASE 10/31/2012 FRANK [...] APRN 496 CHRONIC OBSTRUCTIVE PULMONARY DISEASE 10/31/2012 RENETTA CARDOZA APRN T 496 CHRONIC OBSTRUCTIVE PULMONARY DISEASE 10/31/2012 FABIENNE ERAZO, JENNA 496 CHRONIC OBSTRUCTIVE PULMONARY DISEASE 10/31/2012 RENETTA CARDOZA APRN 496 CHRONIC OBSTRUCTIVE PULMONARY DISEASE 10/31/2012 RENETTA CARDOZA APRN 496 CHRONIC OBSTRUCTIVE PULMONARY DISEASE 01/23/2013 486 PNEUMONIA UNSPECIFIED 01/23/2013 486 PNEUMONIA UNSPECIFIED 01/23/2013 486 PNEUMONIA UNSPECIFIED 01/23/2013 486 PNEUMONIA UNSPECIFIED 01/23/2013 486 PNEUMONIA UNSPECIFIED 01/23/2013 486 PNEUMONIA UNSPECIFIED 01/23/2013 486 PNEUMONIA UNSPECIFIED 01/23/2013 NANI FORRESTER, RENETTA T 486 PNEUMONIA UNSPECIFIED 01/23/2013 BORJA DO, BRANDEN K 486 PNEUMONIA UNSPECIFIED 01/23/2013 NANI BAG FILLER MACHINE OPERATOR, RENETTA T 486 PNEUMONIA UNSPECIFIED 01/23/2013 NANI BAG FILLER MACHINE OPERATOR, RENETTA T 486 PNEUMONIA UNSPECIFIED 01/23/2013 BORJA DO, BRANDEN K 486 PNEUMONIA UNSPECIFIED 01/23/2013 BORJA DO, BRANDEN K 486 PNEUMONIA UNSPECIFIED 01/23/2013 NANI MILLERN, RENETTA T 486 PNEUMONIA UNSPECIFIED 01/23/2013 NANI MILLERN, RENETTA T 486 PNEUMONIA UNSPECIFIED 01/23/2013 NANI FORRESTER, RENETTA T 486 PNEUMONIA UNSPECIFIED 01/23/2013 NANI FORRESTER, RENETTA T 486 PNEUMONIA UNSPECIFIED 01/23/2013 TUSHAR APRN, FRANK S 486 PNEUMONIA UNSPECIFIED 01/23/2013 BORJA DO, BRANDEN K 486 PNEUMONIA UNSPECIFIED 01/23/2013 FABIENNE ERAZO, JENNA 486 PNEUMONIA UNSPECIFIED 01/23/2013 SHAKA ERAZO, ALI 486 PNEUMONIA UNSPECIFIED 01/23/2013 SHAKA ERAZO, ALI 486 PNEUMONIA UNSPECIFIED 01/23/2013 NANI FORRESTER, RENETTA T 486 PNEUMONIA UNSPECIFIED 01/23/2013 SHAKA ERAZO, ALI 486 PNEUMONIA UNSPECIFIED 01/23/2013 SHAKA ERAZO, ALI 486 PNEUMONIA UNSPECIFIED 01/23/2013 NANI FORRESTER, RENETTA T 486 PNEUMONIA UNSPECIFIED 01/23/2013 NANI FORRESTER, RENETTA T 486 PNEUMONIA UNSPECIFIED 01/23/2013 FABIENNE ERAZO, EJNNA 486 PNEUMONIA UNSPECIFIED 01/23/2013 NANI FORRESTER, RENETTA T 486 PNEUMONIA UNSPECIFIED 01/23/2013 NANI FORRESTER, RENETTA T 486 PNEUMONIA UNSPECIFIED 03/27/2013 780.57 SLEEP APNEA 03/27/2013 780.57 SLEEP APNEA 03/27/2013 780.57 SLEEP APNEA 03/27/2013 780.57 SLEEP APNEA 03/27/2013 780.57 SLEEP APNEA 03/27/2013 RENETTA CARDOZA APRN 780.57 SLEEP APNEA 03/27/2013 BORJA DO, BRANDEN K 780.57 SLEEP APNEA 03/27/2013 RENETTA CARDOZA APRN 780.57 SLEEP APNEA 03/27/2013 RENETTA CARDOZA APRN T 780.57 SLEEP APNEA 03/27/2013 VICENTE BORJA DOA K 780.57 SLEEP APNEA 03/27/2013 JONH MYRICK BRANDEN K 780.57 SLEEP APNEA 03/27/2013 RENETTA CARDOZA APRN T 780.57 SLEEP APNEA 03/27/2013 RENETTA CARDOZA APRN T 780.57 SLEEP APNEA 03/27/2013 RENETTA CARDOZA APRN 780.57 SLEEP APNEA 03/27/2013 RENETTA CARDOZA APRN 780.57 SLEEP APNEA 03/27/2013 FRANK FINLEY APRN S 780.57 SLEEP APNEA 03/27/2013 JONH MYRICK BRANDEN K 780.57 SLEEP APNEA 03/27/2013 JENNA LOVING MD 780.57 SLEEP APNEA 03/27/2013 SHAKA ERAZO, ALI 780.57 SLEEP APNEA 03/27/2013 SHAKA ERAZO, ALI 780.57 SLEEP APNEA 03/27/2013 RENETTA CARDOZA APRN 780.57 SLEEP APNEA 03/27/2013 SHAKA ERAZO, ALI 780.57 SLEEP APNEA 03/27/2013 SHAKA ERAZO, ALI 780.57 SLEEP APNEA 03/27/2013 RENETTA CARDOZA APRN T 780.57 SLEEP APNEA 03/27/2013 RENETTA CARDOZA APRN T 780.57 SLEEP APNEA 03/27/2013 JENNA LOVING MD 780.57 SLEEP APNEA 03/27/2013 RENETTA CARDOZA APRN T 780.57 SLEEP APNEA 03/27/2013 RENETTA CARDOZA APRN T 780.57 SLEEP APNEA 05/04/2013 RENETTA CARDOZA HOME IMPROVEMENT CONTRACTOR Ot 327.23 OBSTRUCTIVE SLEEP APNEA (ADULT) (PEDIATR [...] K 216.9 MOLE/NEVUS - SITE UNSPECIFIED 05/27/2013 JONH MYRICK, BRANDEN K 216.9 MOLE/NEVUS - SITE UNSPECIFIED 05/27/2013 RENETTA CARDOZA APRN T 216.9 MOLE/NEVUS - SITE UNSPECIFIED 05/27/2013 RENETTA CARDOZA APRN 216.9 MOLE/NEVUS - SITE UNSPECIFIED 05/27/2013 RENETTA CARDOZA APRN 216.9 MOLE/NEVUS - SITE UNSPECIFIED 05/27/2013 RENETTA CARDOZA APRN 216.9 MOLE/NEVUS - SITE UNSPECIFIED 05/27/2013 TUSHAR FORRESTER, FRANK S 216.9 MOLE/NEVUS - SITE UNSPECIFIED 05/27/2013 JONH MYRICK, BRANDEN K 216.9 MOLE/NEVUS - SITE UNSPECIFIED 05/27/2013 JENNA LOVING MD 216.9 MOLE/NEVUS - SITE UNSPECIFIED 05/27/2013 SHAKA ERAZO, KAMRYN 216.9 MOLE/NEVUS - SITE UNSPECIFIED 05/27/2013 SHAKA ERAZO, KAMRYN 216.9 MOLE/NEVUS - SITE UNSPECIFIED 05/27/2013 RENETTA CARDOZA APRN T 216.9 MOLE/NEVUS - SITE UNSPECIFIED 05/27/2013 SHAKA ERAZO, ALI 216.9 MOLE/NEVUS - SITE UNSPECIFIED 05/27/2013 SHAKA ERAZO, ALI 216.9 MOLE/NEVUS - SITE UNSPECIFIED 05/27/2013 RENETTA CARDOZA APRN 216.9 MOLE/NEVUS - SITE UNSPECIFIED 05/27/2013 RENETTA CARDOZA APRN 216.9 MOLE/NEVUS - SITE UNSPECIFIED 05/27/2013 JENNA LOVING MD 216.9 MOLE/NEVUS - SITE UNSPECIFIED 05/27/2013 RENETTA CARDOZA APRN 216.9 MOLE/NEVUS - SITE UNSPECIFIED 05/27/2013 RENETTA CARDOZA APRN 216.9 MOLE/NEVUS - SITE UNSPECIFIED 07/08/2013 NIKHIL ERAZO, EFRAIN A Ot 784.0 HEADACHE 07/10/2013 724.2 BACK PAIN, LOWER 07/10/2013 784.0 HEADACHE 07/10/2013 RENETTA CARDOZA APRN 724.2 BACK PAIN, LOWER 07/10/2013 RENETTA CARDOZA APRN 784.0 HEADACHE 07/10/2013 JONH DO, BRANDEN K 724.2 BACK PAIN, LOWER 07/10/2013 BORJA DO, BRANDEN K 784.0 HEADACHE 07/10/2013 NANI FORRESTER, RENETTA T 724.2 BACK PAIN, LOWER 07/10/2013 NANI FORRESTER, RENETTA T 784.0 HEADACHE 07/10/2013 NANI MILLERN, RENETTA T 724.2 BACK PAIN, LOWER 07/10/2013 NANI FORRESTER, RENETTA T 784.0 HEADACHE 07/10/2013 BORJA DO, BRANDEN [...] FRANK S 724.2 BACK PAIN, LOWER 07/10/2013 TUSHARAUGUSTUS FORRESTER, FRANK S 784.0 HEADACHE 07/10/2013 BORJA DO, BRANDEN K 724.2 BACK PAIN, LOWER 07/10/2013 BORJA DO, BRANDEN K 784.0 HEADACHE 07/10/2013 JENNA LOVING MD 724.2 BACK PAIN, LOWER 07/10/2013 JENNA LOVING MD 784.0 HEADACHE 07/10/2013 KAMRYN MATT MD 724.2 BACK PAIN, LOWER 07/10/2013 SHAKA ERAZO, KAMRYN 784.0 HEADACHE 07/10/2013 KAMRYN MATT MD 724.2 BACK PAIN, LOWER 07/10/2013 SHAKA ERAZO, KAMRYN 784.0 HEADACHE 07/10/2013 RENETTA CARDOZA APRN T 724.2 BACK PAIN, LOWER 07/10/2013 NANI BAG FILLER MACHINE OPERATOR, RENETTA T 784.0 HEADACHE 07/10/2013 SHAKA ERAZO, ALI 724.2 BACK PAIN, LOWER 07/10/2013 SHAKA ERAZO, KAMRYN 784.0 HEADACHE 07/10/2013 SHAKA ERAZO, KAMRYN 724.2 BACK PAIN, LOWER 07/10/2013 SHAKA ERAZO, KAMRYN 784.0 HEADACHE 07/10/2013 NANI FORRESTER, RENETTA T 724.2 BACK PAIN, LOWER 07/10/2013 NANI FORRESTER, RENETTA T 784.0 HEADACHE 07/10/2013 NANI FORRESTER, RENETTA T 724.2 BACK PAIN, LOWER 07/10/2013 NANI FORRESTER, RENETTA T 784.0 HEADACHE 07/10/2013 JENNA LOVING MD 724.2 [...] FORRESTER RENETTA T 786.50 CHEST PAIN 07/31/2013 NANI FORRESTER, RENETTA [...] RENETTA T 786.50 chest pain or discomfort 09/18/2013 [...] APRN T 401.0 HYPERTENSION MALIGNANT ESSENTIAL 09/18/2013 TUSHAR FORRESTER FRANK S 401.0 HYPERTENSION MALIGNANT ESSENTIAL 09/18/2013 BORJA DO, BRANDEN K 401.0 HYPERTENSION MALIGNANT ESSENTIAL 09/18/2013 JENNA LOVING MD 401.0 HYPERTENSION MALIGNANT ESSENTIAL 09/18/2013 KAMRYN MATT MD 401.0 HYPERTENSION MALIGNANT ESSENTIAL 09/18/2013 SHAKA ERAZO ALI 401.0 HYPERTENSION MALIGNANT ESSENTIAL 09/18/2013 RENETTA CARDOZA APRN T 401.0 HYPERTENSION MALIGNANT ESSENTIAL 09/18/2013 KAMRYN MATT MD 401.0 HYPERTENSION MALIGNANT ESSENTIAL 09/18/2013 KAMRYN MATT MD 401.0 HYPERTENSION MALIGNANT ESSENTIAL 09/18/2013 RENETTA CARDOZA APRN T 401.0 HYPERTENSION MALIGNANT ESSENTIAL 09/18/2013 NANI FORRESTER RENETTA T 401.0 HYPERTENSION MALIGNANT ESSENTIAL 09/18/2013 JENNA LOVING MD 401.0 HYPERTENSION MALIGNANT ESSENTIAL 09/18/2013 RENETTA CARDOZA APRN 401.0 HYPERTENSION MALIGNANT ESSENTIAL 09/18/2013 RENETTA CARDOZA APRN 401.0 HYPERTENSION MALIGNANT ESSENTIAL 10/01/2013 SHAKA REES, ALI FACP CCDS Ot 272.1 PURE HYPERGLYCERIDEMIA 10/01/2013 SHAKA ERAZO FACC, ALI FACP CCDS Ot 305.1 TOBACCO USE DISORDER 10/01/2013 SHAKA ERAZO FACC, ALI FACP CCDS Ot 345.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 10/01/2013 SHAKA ERAZO FACC, ALI FACP CCDS Ot 401.9 HYPERTENSION NOS 10/01/2013 SHAKA ERAZO FACC, ALI FACP CCDS Ot 414.01 CORONARY ATHEROSCLEROSIS OF [place] CORON 10/01/2013 SHAKA ERAZO FACC, ALI FACP CCDS Ot 496 CHR AIRWAY OBSTRUCT NEC 10/01/2013 SHAKA ERAZO FACC, ALI FACP CCDS Ot 780.57 UNSPECIFIED SLEEP APNEA 10/01/2013 SHAKA ERAZO FACElen, ALI FACP CCDS Ot 786.59 CHEST PAIN NEC 10/01/2013 SHAKA REES, ALI FACP CCDS Ot V17.3 FAM HX-ISCHEM HEART DIS 10/01/2013 SHAKA ERAZO FACC, ALI FACP CCDS Ot V58.69 OTH MED,LT,CURRENT USE 10/21/2013 RENETTA CARDOZA APRN V74.5 STD SCREEN 10/21/2013 RENETTA CARDOZA APRN V74.5 STD SCREEN 10/21/2013 VICENTE BORJA DOA K V74.5 STD SCREEN 10/21/2013 VICENTE BORJA DOA K V74.5 STD SCREEN 10/21/2013 RENETTA CARDOZA [...] FORRESTER, RENETTA T V74.5 STD SCREEN 10/21/2013 JENNA LOVING MD V74.5 STD SCREEN 10/21/2013 NANI FORRESTER, RENETTA T V74.5 STD SCREEN 10/21/2013 NANI MILLERN, RENETTA T V74.5 STD SCREEN 12/04/2013 BORJA [...] RENETTA T 786.09 difficulty breathing (dyspnea) 12/04/2013 TUSHAR [...] MD 786.09 difficulty breathing (dyspnea) 12/04/2013 SHAKA MD, ALI 414.00 CORONARY ARTERY DISEASE 12/04/2013 SHAKA ERAZO, ALI 786.09 difficulty breathing (dyspnea) 12/04/2013 NANI FORRESTER, RENETTA T 414.00 CORONARY ARTERY DISEASE 12/04/2013 NANI FORRESTER, RENETTA T 786.09 difficulty breathing (dyspnea) 12/04/2013 SHAKA ERAZO, ALI 414.00 CORONARY ARTERY DISEASE 12/04/2013 SAHKA ERAZO, ALI 786.09 difficulty breathing (dyspnea) 12/04/2013 SHAKA ERAZO, ALI 414.00 CORONARY ARTERY DISEASE 12/04/2013 SHAKA ERAZO, ALI 786.09 difficulty breathing (dyspnea) 12/04/2013 NANI FORRESTER RENETTA T 414.00 CORONARY ARTERY DISEASE 12/04/2013 NANI FORRESTER RENETTA T 786.09 difficulty breathing (dyspnea) 12/04/2013 NANI FORRESTER, RENETTA T 414.00 CORONARY ARTERY DISEASE 12/04/2013 NANI FORRESTER RENETTA T 786.09 difficulty breathing (dyspnea) 12/04/2013 JENNA LOVING MD 414.00 CORONARY ARTERY DISEASE 12/04/2013 JENNA LOVING MD 786.09 difficulty breathing (dyspnea) 12/04/2013 NANI FORRESTER RENETTA T 414.00 CORONARY ARTERY DISEASE 12/04/2013 NANI FORRESTER RENETTA T 786.09 difficulty breathing (dyspnea) 12/04/2013 NANI FORRESTER RENETTA T 414.00 CORONARY ARTERY DISEASE 12/04/2013 NANI FORRESTER RENETTA T 786.09 DIFFICULTY BREATHING (DYSPNEA) 03/25/2014 NANI FORRESTER RENETTA T 278.00 OBESITY 03/25/2014 RENETTA CARDOZA APRN T 701.9 SKIN TAG 03/25/2014 RENETTA CARDOZA APRN T 278.00 OBESITY 03/25/2014 NANI FORRESTER RENETTA T 701.9 SKIN TAG 03/25/2014 NANI FORRESTER RENETTA T 278.00 OBESITY 03/25/2014 NANI FORRESTER RENETTA T 701.9 SKIN TAG 03/25/2014 NANI FORRESTER RENETTA T 278.00 OBESITY 03/25/2014 NANI FORRESTER RENETTA T 701.9 SKIN TAG 03/25/2014 TUSHAR FORRESTER FRANK S 278.00 OBESITY 03/25/2014 TUSHAR FORRESTER FRANK S 701.9 SKIN TAG 03/25/2014 BORJA DO, BRANDEN K 278.00 OBESITY 03/25/2014 BORJA DO, BRANDEN K 701.9 SKIN TAG 03/25/2014 FABIENNE ERAZO, JENNA 278.00 OBESITY 03/25/2014 JENNA LOVING MD 701.9 SKIN TAG 03/25/2014 SHAKA ERAZO, KAMRYN 278.00 OBESITY 03/25/2014 SHAKA ERAZO, KAMRYN 701.9 SKIN TAG 03/25/2014 SHAKA ERAZO, ALI 278.00 OBESITY 03/25/2014 SHAKA ERAZO, KAMRYN 701.9 SKIN TAG 03/25/2014 NANI FORRESTER, RENETTA T 278.00 OBESITY 03/25/2014 NANI FORRESTER, RENETTA T 701.9 SKIN TAG 03/25/2014 SHAKA ERAZO, ALI 278.00 OBESITY 03/25/2014 SHAKA ERAZO, KAMRYN 701.9 SKIN TAG 03/25/2014 SHAKA ERAZO, ALI 278.00 OBESITY 03/25/2014 SHAKA ERAZO, ALI 701.9 SKIN TAG 03/25/2014 RENETTA CARDOZA APRN T 278.00 OBESITY 03/25/2014 RENETTA CARDOZA APRN T 701.9 SKIN TAG 03/25/2014 NANI FORRESTER RENETTA T 278.00 OBESITY 03/25/2014 NANI FORRESTER RENETTA T 701.9 SKIN TAG 03/25/2014 JENNA LOVING MD 278.00 OBESITY 03/25/2014 JENNA LOVING MD 701.9 SKIN TAG 03/25/2014 RENETTA CARDOZA APRN T 278.00 OBESITY 03/25/2014 NANI FORRESTER RENETTA T 701.9 SKIN TAG 03/25/2014 NANI FORRESTER RENETTA T 278.00 OBESITY 03/25/2014 RENETTA CARDOZA APRN T 701.9 SKIN TAG 04/16/2014 RENETTA CARDOZA APRN T 305.1 TOBACCO ABUSE 04/16/2014 RENETTA CARDOZA APRN T 305.1 TOBACCO ABUSE 04/16/2014 FRANK FINLEY APRN 305.1 TOBACCO ABUSE 04/16/2014 BRANDEN BORJA DO K 305.1 TOBACCO ABUSE 04/16/2014 JENNA LOVING MD 305.1 TOBACCO ABUSE 04/16/2014 SHAKA ERAZO, KAMRYN 305.1 TOBACCO ABUSE 04/16/2014 SHAKA ERAZO, ALI 305.1 TOBACCO ABUSE 04/16/2014 RENETTA CARDOZA APRN T 305.1 TOBACCO ABUSE 04/16/2014 SHAKA ERAZO, KAMRYN 305.1 TOBACCO ABUSE 04/16/2014 KAMRYN MATT MD [...] APRN 780.79 fatigue 04/21/2014 BRANDEN BORJA DO K 780.79 fatigue 04/21/2014 JENNA LOVING MD 780.79 [...] 05/22/2014 JENNA LOVING MD 782.3 EDEMA 05/22/2014 RENETTA CARDOZA APRN 782.3 EDEMA 05/22/2014 RENETTA CARDOZA APRN T 782.3 EDEMA 06/04/2014 BORJA DO, BRANDEN K [...] ERAZO, ALI 780.2 SYNCOPE 06/04/2014 SHAKA ERAZO, KAMRYN 785.1 PALPITATIONS 06/04/2014 SHAKA ERAZO, ALI 786.05 SHORTNESS OF BREATH 06/04/2014 RENETTA CARDOZA APRN 780.2 SYNCOPE 06/04/2014 RENETTA CARDOZA APRN 785.1 PALPITATIONS 06/04/2014 RENETTA CARDOZA APRN T 786.05 SHORTNESS OF BREATH 06/04/2014 SHAKA ERAZO, ALI 780.2 SYNCOPE 06/04/2014 SHAKA ERAZO, ALI 785.1 PALPITATIONS 06/04/2014 SHAKA ERAZO, ALI 786.05 SHORTNESS OF BREATH 06/04/2014 SHAKA ERAZO, ALI 780.2 SYNCOPE 06/04/2014 SHAKA ERAZO, ALI 785.1 PALPITATIONS 06/04/2014 SHAKA ERAZO, ALI 786.05 SHORTNESS OF BREATH 06/04/2014 RENETTA CARDOZA APRN 780.2 SYNCOPE 06/04/2014 RENETTA CARDOZA APRN T 785.1 PALPITATIONS 06/04/2014 RENETTA CARDOZA APRN 786.05 SHORTNESS OF BREATH 06/04/2014 RENETTA CARDOZA APRN 780.2 SYNCOPE 06/04/2014 RENETTA CARDOZA APRN 785.1 PALPITATIONS 06/04/2014 RENETTA CARDOZA APRN 786.05 SHORTNESS OF BREATH 06/04/2014 JENNA LOVING MD 780.2 SYNCOPE 06/04/2014 JENNA LOVING MD 785.1 PALPITATIONS 06/04/2014 JENNA LOVING MD 786.05 SHORTNESS OF BREATH 06/04/2014 NANI BAG FILLER MACHINE OPERATORRENETTA Ha T 780.2 SYNCOPE 06/04/2014 RENETTA CARDOZA APRN 785.1 PALPITATIONS 06/04/2014 RENETTA CARDOZA APRN 786.05 SHORTNESS OF BREATH 06/04/2014 NANI BAG FILLER MACHINE OPERATORRENETTA Ha 780.2 SYNCOPE 06/04/2014 NANI BAG FILLER MACHINE OPERATORRENETTA Ha 785.1 PALPITATIONS 06/04/2014 NANI BAG FILLER MACHINE OPERATORRENETTA Ha 786.05 SHORTNESS OF BREATH 06/06/2014 ROMA STRICKLAND BAG FILLER MACHINE OPERATOR Ot 729.89 MUSCSKEL SYMPT LIMB NEC 06/06/2014 ROMA STRICKLAND BAG FILLER MACHINE OPERATOR Ot 780.2 SYNCOPE AND COLLAPSE 06/06/2014 ROMA STRICKLAND BAG FILLER MACHINE OPERATOR Ot 796.0 ABN TOXICOLOGIC FINDING 06/17/2014 ELIS VICTOR HOME IMPROVEMENT CONTRACTOR Ot 780.2 SYNCOPE AND COLLAPSE 06/17/2014 ELIS VICTOR HOME IMPROVEMENT CONTRACTOR Ot 785.1 PALPITATIONS 06/17/2014 ELIS VICTOR HOME IMPROVEMENT CONTRACTOR Ot 786.05 SHORTNESS OF BREATH 06/17/2014 ELIS VICTOR HOME IMPROVEMENT CONTRACTOR Ot 786.50 CHEST PAIN NOS 07/22/2014 KAMRYN MATT MD, FACC FACP CCDS Ot 272.4 HYPERLIPIDEMIA NEC/NOS 07/22/2014 SHAKA ERAZO FACC, KAMRYN FACP CCDS Ot 305.1 TOBACCO USE DISORDER 07/22/2014 KAMRYN MATT MD, FACC FACP CCDS Ot 345.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 07/22/2014 KAMRYN MATT MD, FACC FACP CCDS Ot 414.01 CORONARY ATHEROSCLEROSIS OF [place] CORON 07/22/2014 KAMRYN MATT MD, FACC FACP CCDS Ot 414.4 CORONARY ATHEROSCLEROSIS DUE TO [place] 07/22/2014 KAMRYN MATT MD, FACC FACP CCDS Ot 496 CHR AIRWAY OBSTRUCT NEC 07/22/2014 KAMRYN MATT MD, FACC FACP CCDS Ot 780.2 SYNCOPE AND COLLAPSE 07/22/2014 KAMRYN MATT MD, FACC FACP CCDS Ot 780.57 UNSPECIFIED SLEEP APNEA 07/22/2014 KAMRYN MATT MD, FACC FACP CCDS Ot 785.1 PALPITATIONS 07/22/2014 KAMRYN MATT MD, FACC FACP CCDS Ot 786.59 CHEST PAIN NEC 07/22/2014 SHAKA REESC, ALI FACP CCDS Ot V58.69 OT MED,LT,CURRENT USE 09/04/2014 ELIS VICTOR HOME IMPROVEMENT CONTRACTOR Ot 780.2 SYNCOPE AND COLLAPSE 09/04/2014 ELIS VICTOR HOME IMPROVEMENT CONTRACTOR Ot 785.1 PALPITATIONS 09/04/2014 ELIS VICTOR HOME IMPROVEMENT CONTRACTOR Ot 786.05 SHORTNESS OF BREATH 09/04/2014 BAIELIS RASHID HOME IMPROVEMENT CONTRACTOR Ot 786.50 CHEST PAIN NOS 09/11/2014 RENETTA CARDOZA HOME IMPROVEMENT CONTRACTOR Ot 345.90 10/09/2014 JENNA LOVING MD 924.9 CONTUSION OF UNSPECIFIED SITE 10/09/2014 RENETTA CARDOZA APRN 924.9 CONTUSION OF UNSPECIFIED SITE 10/09/2014 RENETTA CARDOZA APRN 924.9 CONTUSION OF UNSPECIFIED SITE 10/14/2014 Ot 345.90 10/14/2014 SHAKA REESC, ALI FACP CCDS Ot 786.05 10/14/2014 SHAKA ERAZO FACC, ALI FACP CCDS Ot 786.50 10/14/2014 SHAKA REESC, ALI FACP CCDS Ot 414.00 10/14/2014 SHAKA REESC, ALI FACP CCDS Ot 496 10/14/2014 SHAKA ERAZO FACC, ALI FACP CCDS Ot 786.09 10/14/2014 SHAKA ERAZO FACC, ALI FACP CCDS Ot 786.50 10/14/2014 RENETTA CARDOZA HOME IMPROVEMENT CONTRACTOR Ot 345.90 10/14/2014 Ot 780.2 10/14/2014 Ot [...] FACP CCDS Ot 786.50 10/16/2014 RENETTA CARDOZA HOME IMPROVEMENT CONTRACTOR Ot 345.90 10/16/2014 Ot 780.2 10/16/2014 Ot 785.1 10/16/2014 Ot 786.05 10/16/2014 Ot 786.50 10/19/2014 Ot 345.90 10/19/2014 SHAKA ERAZO FACC, ALI FACP CCDS Ot 786.05 10/19/2014 SHAKA REESC, ALI FACP CCDS Ot 786.50 10/19/2014 SHAKA REESC, ALI FACP CCDS Ot 414.00 10/19/2014 SHAKA ERAZO FACC, ALI FACP CCDS Ot 496 10/19/2014 SHAKA ERAZO FACC, ALI FACP CCDS Ot 786.09 10/19/2014 SHAKA ERAZO FACC, ALI FACP CCDS Ot 786.50 10/19/2014 RENETTA CARDOZA HOME IMPROVEMENT CONTRACTOR Ot 345.90 10/19/2014 Ot 780.2 10/19/2014 Ot 785.1 10/19/2014 Ot 786.05 10/19/2014 Ot 786.50 11/24/2014 RENETTA CARDOZA APRN 465.9 UPPER RESPIRATORY INFECTION 11/24/2014 RENETTA CARDOZA APRN 682.9 CELLULITIS AND ABSCESS OF UNSPECIFIED SITES 11/24/2014 RENETTA CARDOZA APRN V16.3 FAMILY HISTORY OF MALIGNANT NEOPLASM OF BREAST 11/27/2014 Ot 345.90 11/27/2014 SHAKA ERAZO FACC, ALI FACP CCDS Ot 786.05 11/27/2014 SHAKA ERAZO FACC, ALI FACP CCDS Ot 786.50 11/27/2014 SHAKA ERAZO FACC, ALI FACP CCDS Ot 414.00 11/27/2014 SHAKA REESC, ALI FACP CCDS Ot 496 11/27/2014 SHAKA ERAZO FACC, ALI FACP CCDS Ot 786.09 11/27/2014 SHAKA ERAZO FACC, ALI FACP CCDS Ot 786.50 11/27/2014 RENETTA CARDOZA HOME IMPROVEMENT CONTRACTOR Ot 345.90 11/27/2014 Ot 780.2 11/27/2014 Ot 785.1 11/27/2014 Ot 786.05 11/27/2014 Ot 786.50 12/01/2014 Ot 345.90 12/01/2014 SHAKA REESC, ALI FACP CCDS Ot 786.05 12/01/2014 SHAKA ERAZO FACC, ALI FACP CCDS Ot 786.50 12/01/2014 SHAKA ERAZO FACC, ALI FACP CCDS Ot 414.00 12/01/2014 SHAKA ERAZO FACC, ALI FACP CCDS Ot 496 12/01/2014 SHAKA ERAZO FACC, ALI FACP CCDS Ot 786.09 12/01/2014 SHAKA ERAZO FACC, ALI FACP CCDS Ot 786.50 12/01/2014 RENETTA CARDOZA Ot 345.90 12/01/2014 Ot 780.2 12/01/2014 Ot [...] ALI FACP CCDS Ot 786.50 12/24/2014 RENETTA CARDOZAP Ot 345.90 12/24/2014 Ot 780.2 12/24/2014 Ot [...] FACC, ALI FACP CCDS Ot 786.50 03/13/2015 RENETTA CARDOZA HOME IMPROVEMENT CONTRACTOR Ot 345.90 03/13/2015 Ot 780.2 03/13/2015 Ot [...] FACP CCDS Ot 786.50 04/03/2015 RENETTA CARDOZA HOME IMPROVEMENT CONTRACTOR Ot 345.90 04/03/2015 Ot 780.2 04/03/2015 Ot [...] FACP CCDS Ot 786.50 04/03/2015 RENETTA CARDOZA Ot 345.90 04/03/2015 Ot 780.2 04/03/2015 Ot [...] FACP CCDS Ot 786.50 04/09/2015 RENETTA CARDOZA Ot 345.90 04/09/2015 Ot 780.2 04/09/2015 Ot 785.1 04/09/2015 Ot 786.05 04/09/2015 Ot 786.50 05/18/2015 Ot 345.90 05/18/2015 SHAKA REESC, ALI FACP CCDS Ot 786.05 05/18/2015 SHAKA REESC, ALI FACP CCDS Ot 786.50 05/18/2015 SHAKA [...] 10/13/2015 Ot 345.90 10/13/2015 SHAKA ERAZO FAC, KAMRYN FACP CCDS Ot 786.05 10/13/2015 SHAKA ERAZO FAC, KAMRYN FACP CCDS Ot 786.50 10/13/2015 SHAKA ERAZO FACC, ALI FACP CCDS Ot 414.00 10/13/2015 SHAKA ERAZO FAC, ALI FACP CCDS Ot 496 10/13/2015 SHAKA ERAZO FAC, ALI FACP CCDS Ot 786.09 10/13/2015 SHAKA ERAZO [facility], KAMRYN FACP CCDS Ot 786.50 10/13/2015 RENETTA CARDOZA Ot 345.90 10/13/2015 Ot 780.2 10/13/2015 Ot 785.1 10/13/2015 Ot 786.05 10/13/2015 Ot 786.50 10/14/2015 RENETTA CARDOZA Ot 611.72 10/14/2015 RENETTA CARDOZA Ot V16.3 10/14/2015 Ot 780.2 10/14/2015 Ot 785.1 10/14/2015 Ot 786.05 10/14/2015 Ot 786.50 10/15/2015 LANG HUDSON DO Ot T82.118A 10/15/2015 LANG HUDSON DO Ot Z01.810 10/15/2015 LANG HUDSON DO Ot Z01.812 10/15/2015 LANG HUDSON DO Ot Z11.2 10/16/2015 LANG HUDSON DO Ot T82.118A BREAKDOWN (MECHANICAL) OF CARDIAC ELECTR 10/16/2015 LANG HUDSON DO Ot Z79.899 OTHER BURRER MARKER AXLE (CURRENT) DRUG THERAPY 10/29/2015 LANG HUDSON DO Ot T82.118A 10/29/2015 LANG HUDSON DO Ot Z01.810 10/29/2015 LANG HUDSON DO Ot Z01.812 10/29/2015 LANG HUDSON DO Ot Z11.2 10/29/2015 LANG HUDSON DO Ot T82.118A 10/29/2015 LANG HUDSON DO Ot Z01.810 10/29/2015 HUDSONLANG GOLD DO Ot Z01.812 10/29/2015 HUDSONLANG GOLD DO Ot Z11.2 02/03/2016 Ot 345.90 02/03/2016 SHAKA ERAZO FACC, KAMRYN FACP CCDS Ot 786.05 02/03/2016 SHAKA ERAZO FACC, ALI FACP CCDS Ot 786.50 02/03/2016 SHAKA ERAZO FACC, ALI FACP CCDS Ot 414.00 02/03/2016 SHAKA ERAZO FACC, ALI FACP CCDS Ot 496 02/03/2016 SHAKA ERAZO FACC, ALI FACP CCDS Ot 786.09 02/03/2016 SHAKA ERAZO FACC, ALI FACP CCDS Ot 786.50 02/03/2016 RENETTA [...] 496 CHR AIRWAY OBSTRUCT NEC 03/03/2016 SHAKA ERAZO FACC, ALI FACP [...] CORON ATHEROSCLER NOS TYPE VESSEL, NATIV 03/15/2016 SHKAA REESC, ALI FACP CCDS Ot 496 CHR AIRWAY OBSTRUCT NEC 03/15/2016 SHAKA REESC, ALI FACP CCDS Ot 786.09 [...] EPI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 03/15/2016 SHAKA REESC, ALI FACP CCDS Ot 786.05 [...] Ot 786.05 SHORTNESS OF BREATH 04/25/2016 SHAKA REESC, ALI FACP CCDS Ot 786.50 [...] CHEST PAIN NOS 04/25/2016 NANI RENETTA Kristi HOME IMPROVEMENT CONTRACTOR Ot 345.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 04/25/2016 Ot 780.2 SYNCOPE AND COLLAPSE 04/25/2016 Ot 785.1 PALPITATIONS 04/25/2016 Ot 786.05 SHORTNESS OF BREATH 04/25/2016 Ot 786.50 CHEST PAIN NOS 04/26/2016 Ot 345.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 04/26/2016 SHAKA ERAZO FACC, ALI FACP CCDS Ot 786.05 SHORTNESS OF BREATH 04/26/2016 SHAKA ERAZO FACC, ALI FACP CCDS Ot 786.50 CHEST PAIN NOS 04/26/2016 SHAKA ERAZO FACC, ALI FACP CCDS Ot 414.00 CORON ATHEROSCLER NOS TYPE VESSEL, NATIV 04/26/2016 SHAKA ERAZO FACC, ALI FACP CCDS Ot 496 CHR AIRWAY OBSTRUCT NEC 04/26/2016 SHAKA ERAZO FACC, ALI FACP CCDS Ot 786.09 RESPIRATORY ABNORM NEC 04/26/2016 SHAKA ERAZO FACC, ALI FACP CCDS Ot 786.50 CHEST PAIN NOS 04/26/2016 RENETTA CARDOZA HOME IMPROVEMENT CONTRACTOR Ot 345.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 04/26/2016 Ot 780.2 SYNCOPE AND COLLAPSE 04/26/2016 Ot 785.1 PALPITATIONS 04/26/2016 Ot 786.05 SHORTNESS OF BREATH 04/26/2016 Ot 786.50 CHEST PAIN NOS 04/27/2016 Ot 345.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 04/27/2016 SHAKA ERAZO FACC, ALI FACP CCDS Ot 786.05 SHORTNESS OF BREATH 04/27/2016 SHAKA ERAZO FACC, ALI FACP CCDS Ot 786.50 CHEST PAIN NOS 04/27/2016 SHAKA ERAZO FACC, ALI FACP CCDS Ot 414.00 CORON ATHEROSCLER NOS TYPE VESSEL, NATIV 04/27/2016 SHAKA ERAZO FACC, ALI FACP CCDS Ot 496 CHR AIRWAY OBSTRUCT NEC 04/27/2016 SHAKA ERAZO FACC, ALI FACP CCDS Ot 786.09 RESPIRATORY ABNORM NEC 04/27/2016 SHAKA ERAZO FACC, ALI FACP [...] Ot 786.05 SHORTNESS OF BREATH 05/18/2016 SHAKA REESC, ALI FACP CCDS Ot 786.50 [...] ATHEROSCLER NOS TYPE VESSEL, NATIV 08/04/2016 SHAKA ERAZO FACC, ALI FACP CCDS Ot 496 CHR AIRWAY OBSTRUCT NEC 08/04/2016 SHAKA REESC, ALI FACP CCDS Ot 786.09 RESPIRATORY ABNORM NEC 08/04/2016 SHAKA REESC, ALI FACP CCDS Ot 786.50 CHEST PAIN NOS 08/04/2016 RENETTA CARDOZA HOME IMPROVEMENT CONTRACTOR Ot 345.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 [...] 786.50 CHEST PAIN NOS 11/14/2016 RENETTA CARDOZA HOME IMPROVEMENT CONTRACTOR Ot 345.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 11/14/2016 Ot 780.2 SYNCOPE AND COLLAPSE 11/14/2016 Ot 785.1 PALPITATIONS 11/14/2016 Ot 786.05 SHORTNESS OF BREATH 11/14/2016 Ot 786.50 CHEST PAIN NOS 12/28/2016 CARMEN HOYOS APRN Ot F17.200 NICOTINE DEPENDENCE, UNSPECIFIED, UNCOMP 12/28/2016 CARMEN HOYOS APRN Ot J44.9 CHRONIC OBSTRUCTIVE PULMONARY DISEASE, U 12/28/2016 CARMEN HOYOS BAG FILLER MACHINE OPERATOR Ot R06.00 DYSPNEA, UNSPECIFIED 01/24/2017 CARMEN HOYOS BAG FILLER MACHINE OPERATOR Ot F17.200 NICOTINE DEPENDENCE, UNSPECIFIED, UNCOMP 01/24/2017 CARMEN HOYOS BAG FILLER MACHINE OPERATOR Ot J44.9 CHRONIC OBSTRUCTIVE PULMONARY DISEASE, U 01/24/2017 CARMEN HOYOS APRN Ot R06.00 DYSPNEA, UNSPECIFIED 02/03/2017 CARMEN HOYOS BAG FILLER MACHINE OPERATOR Ot F17.200 NICOTINE DEPENDENCE, UNSPECIFIED, UNCOMP 02/03/2017 CARMEN HOYOS BAG FILLER MACHINE OPERATOR Ot J44.9 CHRONIC OBSTRUCTIVE PULMONARY DISEASE, U 02/03/2017 SOHA, CARMEN E BAG FILLER MACHINE OPERATOR Ot R06.00 DYSPNEA, UNSPECIFIED 03/31/2017 ROMA STRICKLAND BAG FILLER MACHINE OPERATOR Ot J44.9 CHRONIC OBSTRUCTIVE PULMONARY DISEASE, U 03/31/2017 ROMA STRICKLAND BAG FILLER MACHINE OPERATOR Ot M17.11 UNILATERAL PRIMARY OSTEOARTHRITIS, RIGHT 03/31/2017 ROMA STRICKLAND BAG FILLER MACHINE OPERATOR Ot M25.561 PAIN IN RIGHT KNEE 03/31/2017 ROMA STRICKLAND BAG FILLER MACHINE OPERATOR Ot Z79.82 BURRER MARKER AXLE (CURRENT) USE OF ASPIRIN 03/31/2017 ROMA STRICKLAND BAG FILLER MACHINE OPERATOR Ot Z79.899 OTHER INTERMEDIATE (CURRENT) DRUG THERAPY 04/02/2017 ROMA STRICKLAND APRN Ot J44.9 CHRONIC OBSTRUCTIVE PULMONARY DISEASE, U 04/02/2017 ROMA STRICKLAND APRN Ot M17.11 UNILATERAL PRIMARY OSTEOARTHRITIS, RIGHT 04/02/2017 ROMA STRICKLAND BAG FILLER MACHINE OPERATOR Ot M25.561 PAIN IN RIGHT KNEE 04/02/2017 ROMA STRICKLAND BAG FILLER MACHINE OPERATOR Ot Z79.82 INTERMEDIATE (CURRENT) USE OF ASPIRIN 04/02/2017 ROMA STRICKLAND BAG FILLER MACHINE OPERATOR Ot Z79.899 OTHER BURRER MARKER AXLE (CURRENT) DRUG THERAPY 04/12/2017 RENETTA CARDOZA HOME IMPROVEMENT CONTRACTOR Ot M25.561 PAIN IN RIGHT KNEE 04/16/2017 RENETTA CARDOZA HOME IMPROVEMENT CONTRACTOR Ot M25.561 PAIN IN RIGHT KNEE 05/04/2017 RENETTA CARDOZA HOME IMPROVEMENT CONTRACTOR Ot M25.561 PAIN IN RIGHT KNEE 05/12/2017 RENETTA CARDOZA HOME IMPROVEMENT CONTRACTOR Ot M25.561 PAIN IN RIGHT KNEE 05/30/2017 SHAKA ERAZO FACC, KAMRYN REESP CCDS Ot E78.5 HYPERLIPIDEMIA, UNSPECIFIED 05/30/2017 SHAKA ERAZO FACC, KAMRYN FACP CCDS Ot I25.10 ATHSCL HEART DISEASE OF [place] CORONARY 05/30/2017 SHAKA ERAZO FACC, KAMRYN REESP CCDS Ot 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 05/30/2017 SHAKA ERAZO FACC, KAMRYN REESP CCDS Ot R06.02 SHORTNESS OF BREATH 05/30/2017 SHAKA ERAZO FACC, KAMRYN REESP CCDS Ot E78.5 HYPERLIPIDEMIA, UNSPECIFIED 05/30/2017 SHAKA ERAZO FACC, KAMRYN REESP CCDS Ot I25.10 ATHSCL HEART DISEASE OF [place] CORONARY 05/30/2017 SHAKA MD FACC, ALI FACP CCDS Ot 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 05/30/2017 SHAKA ERAZO [facility], ALI FACP CCDS Ot R06.02 SHORTNESS OF BREATH 05/30/2017 SHAKA ERAZO [facility], ALI FACP CCDS Ot E78.5 HYPERLIPIDEMIA, UNSPECIFIED 05/30/2017 SHAKA ERAZO [facility], ALI FACP CCDS Ot I25.10 ATHSCL HEART DISEASE OF [place] CORONARY 05/30/2017 SHAKA ERAZO [facility], ALI FACP CCDS Ot 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 05/30/2017 SHAKA ERAZO [facility], [facility] Ot R06.02 SHORTNESS OF BREATH 06/15/2017 Ot 780.2 SYNCOPE AND COLLAPSE 06/15/2017 Ot 785.1 PALPITATIONS 06/15/2017 Ot 786.05 SHORTNESS OF BREATH 06/15/2017 Ot 786.50 CHEST PAIN NOS 06/15/2017 LEYLA TORRES MD Ot S83.241A OTH TEAR OF MEDIAL MENISCUS, CURRENT INJ 06/15/2017 LEYLA TORRES MD Ot S83.281A OTH TEAR OF LAT MENSC, CURRENT INJURY, R 06/15/2017 LEYLA TORRES MD Ot X58.XXXA EXPOSURE TO OTHER SPECIFIED FACTORS, INI 06/15/2017 LEYLA TORRES MD Ot Y99.8 OTHER EXTERNAL CAUSE STATUS 06/15/2017 LEYLA TORRES MD Ot Z01.818 ENCOUNTER FOR OTHER PREPROCEDURAL EXAMIN 06/16/2017 LEYLA TORRES MD, Ot S83.241A OTH TEAR OF MEDIAL MENISCUS, CURRENT INJ 06/16/2017 LEYLA TORRES MD Ot S83.281A OTH TEAR OF LAT MENSC, CURRENT INJURY, R 06/16/2017 LEYLA TORRES MD Ot X58.XXXA EXPOSURE TO OTHER SPECIFIED FACTORS, INI 06/16/2017 LEYLA TORRES MD Ot Y99.8 OTHER EXTERNAL CAUSE STATUS 06/16/2017 LEYLA TORRES MD Ot Z01.818 ENCOUNTER FOR OTHER PREPROCEDURAL EXAMIN 06/21/2017 LEYLA TORRES MD Ot E78.5 HYPERLIPIDEMIA, UNSPECIFIED 06/21/2017 LEYLA TORRES MD Ot F17.210 NICOTINE DEPENDENCE, CIGARETTES, UNCOMPL 06/21/2017 LEYLA TORRES MD Ot F41.9 ANXIETY DISORDER, UNSPECIFIED 06/21/2017 LEYLA TORRES MD Ot G40.909 EPILEPSY, UNSP, NOT INTRACTABLE, WITHOUT 06/21/2017 LEYLA TORRES MD Ot G47.33 OBSTRUCTIVE SLEEP APNEA (ADULT) (PEDIATR 06/21/2017 LEYLA TORRES MD Ot I10 ESSENTIAL (PRIMARY) HYPERTENSION 06/21/2017 LEYLA TORRES MD Ot I25.10 ATHSCL HEART DISEASE OF [place] CORONARY 06/21/2017 LEYLA TORRES MD Ot J44.9 CHRONIC OBSTRUCTIVE PULMONARY DISEASE, U 06/21/2017 LEYLA TORRES MD Ot K21.9 GASTRO-ESOPHAGEAL REFLUX DISEASE WITHOUT 06/21/2017 LEYLA TORRES MD Ot M22.41 CHONDROMALACIA PATELLAE, RIGHT KNEE 06/21/2017 LEYLA TORRES MD Ot M23.8X1 OTHER INTERNAL DERANGEMENTS OF RIGHT KNE 06/23/2017 SHAKA ERAZO FACC, ALI FACP CCDS Ot E78.5 HYPERLIPIDEMIA, UNSPECIFIED 06/23/2017 SHAKA ERAZO FACElen, ALI FACP CCDS Ot I25.10 ATHSCL HEART DISEASE OF [place] CORONARY 06/23/2017 SHAKA ERAZO FACC, ALI FACP CCDS Ot 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 06/23/2017 SHAKA ERAZO FACC, ALI FACP CCDS Ot R06.02 SHORTNESS OF BREATH 06/26/2017 SHAKA ERAZO FACElen, ALI FACP CCDS Ot E78.5 HYPERLIPIDEMIA, UNSPECIFIED 06/26/2017 SHAKA ERAZO FACC, ALI FACP CCDS Ot I25.10 ATHSCL HEART DISEASE OF [place] CORONARY 06/26/2017 SHAKA ERAZO FACC, ALI FACP CCDS Ot 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 06/26/2017 SHAKA ERAZO FACElen, ALI FACP CCDS Ot R06.02 SHORTNESS OF BREATH 06/27/2017 LEYLA TORRES MD Ot E78.5 HYPERLIPIDEMIA, UNSPECIFIED 06/27/2017 LEYLA TORRES MD Ot F17.210 NICOTINE DEPENDENCE, CIGARETTES, UNCOMPL 06/27/2017 LEYLA TORRES MD Ot F41.9 ANXIETY DISORDER, UNSPECIFIED 06/27/2017 LEYLA TORRES MD, Ot G40.909 EPILEPSY, UNSP, NOT INTRACTABLE, WITHOUT 06/27/2017 LEYLA TORRES MD, Ot G47.33 OBSTRUCTIVE SLEEP APNEA (ADULT) (PEDIATR 06/27/2017 LEYLA TORRES MD Ot I10 ESSENTIAL (PRIMARY) HYPERTENSION 06/27/2017 LEYLA TORRES MD Ot I25.10 ATHSCL HEART DISEASE OF [place] CORONARY 06/27/2017 LEYLA TORRES MD Ot J44.9 CHRONIC OBSTRUCTIVE PULMONARY DISEASE, U 06/27/2017 LEYLA TORRES MD Ot K21.9 GASTRO-ESOPHAGEAL REFLUX DISEASE WITHOUT 06/27/2017 LEYLA TORRES MD, Ot M22.41 CHONDROMALACIA PATELLAE, RIGHT KNEE 06/27/2017 LEYLA TORRES MD Ot M23.8X1 OTHER INTERNAL DERANGEMENTS OF RIGHT KNE 08/07/2017 LEYLA TORRES MD, Ot M22.42 CHONDROMALACIA PATELLAE, LEFT KNEE 08/07/2017 LEYLA TORRES MD Ot M23.204 DERANG OF UNSP MEDIAL MENISCUS DUE TO OL 08/07/2017 LEYLA TORRES MD Ot Z01.818 ENCOUNTER FOR OTHER PREPROCEDURAL EXAMIN 08/09/2017 LEYLA TORRES MD Ot E78.5 HYPERLIPIDEMIA, UNSPECIFIED 08/09/2017 LEYLA TORRES MD Ot F17.210 NICOTINE DEPENDENCE, CIGARETTES, UNCOMPL 08/09/2017 LEYLA TORRES MD, Ot G47.33 OBSTRUCTIVE SLEEP APNEA (ADULT) (PEDIATR 08/09/2017 LEYLA TORRES MD Ot I10 ESSENTIAL (PRIMARY) HYPERTENSION 08/09/2017 LEYLA TORRES MD Ot I25.10 ATHSCL HEART DISEASE OF [place] CORONARY 08/09/2017 LEYLA TORRES MD, Ot J44.9 CHRONIC OBSTRUCTIVE PULMONARY DISEASE, U 08/09/2017 LEYLA TORRES MD Ot M23.252 DERANG OF POST HORN OF LAT MENSC DUE TO 08/09/2017 LEYLA TORRES MD Ot M94.262 CHONDROMALACIA, LEFT KNEE 08/09/2017 LEYLA TORRES MD Ot R56.9 UNSPECIFIED CONVULSIONS 08/09/2017 LEYLA TORRES MD Ot Z79.899 OTHER BURRER MARKER AXLE (CURRENT) DRUG THERAPY 08/11/2017 LEYLA TORRES MD Ot E78.5 HYPERLIPIDEMIA, UNSPECIFIED 08/11/2017 LEYLA TORRES MD Ot F17.210 NICOTINE DEPENDENCE, CIGARETTES, UNCOMPL 08/11/2017 LEYLA TORRES MD Ot G47.33 OBSTRUCTIVE SLEEP APNEA (ADULT) (PEDIATR 08/11/2017 LEYLA TORRES MD Ot I10 ESSENTIAL (PRIMARY) HYPERTENSION 08/11/2017 LEYLA TORRES MD Ot I25.10 ATHSCL HEART DISEASE OF [place] CORONARY 08/11/2017 LEYLA TORRES MD Ot J44.9 CHRONIC OBSTRUCTIVE PULMONARY DISEASE, U 08/11/2017 LEYLA TORRES MD Ot M23.252 DERANG OF POST HORN OF LAT MENSC DUE TO 08/11/2017 LEYLA TORRES MD Ot M94.262 CHONDROMALACIA, LEFT KNEE 08/11/2017 LEYLA TORRES MD Ot R56.9 UNSPECIFIED CONVULSIONS 08/11/2017 LEYLA TORRES MD Ot Z79.899 OTHER INTERMEDIATE (CURRENT) DRUG THERAPY 08/13/2017 LEYLA TORRES MD Ot M22.42 CHONDROMALACIA PATELLAE, LEFT KNEE 08/13/2017 LEYLA TORRES MD Ot M23.204 DERANG OF UNSP MEDIAL MENISCUS DUE TO OL 08/13/2017 ELYLA TORRES MD Ot Z01.818 ENCOUNTER FOR OTHER PREPROCEDURAL EXAMIN 08/17/2017 LEYAL TORRES MD, Ot E78.5 HYPERLIPIDEMIA, UNSPECIFIED 08/17/2017 LEYLA TORRES MD Ot F17.210 NICOTINE DEPENDENCE, CIGARETTES, UNCOMPL 08/17/2017 LEYLA TORRES MD Ot G47.33 OBSTRUCTIVE SLEEP APNEA (ADULT) (PEDIATR 08/17/2017 LEYLA TORRES MD Ot I10 ESSENTIAL (PRIMARY) HYPERTENSION 08/17/2017 LEYLA TORRES MD Ot I25.10 ATHSCL HEART DISEASE OF [place] CORONARY 08/17/2017 LEYLA TORRES MD Ot J44.9 CHRONIC OBSTRUCTIVE PULMONARY DISEASE, U 08/17/2017 LEYLA TORRES MD Ot M23.252 DERANG OF POST HORN OF LAT MENSC DUE TO 08/17/2017 LEYLA TORRES MD Ot M94.262 CHONDROMALACIA, LEFT KNEE 08/17/2017 LEYLA TORRES MD Ot R56.9 UNSPECIFIED CONVULSIONS 08/17/2017 LEYLA TORRES MD Ot Z79.899 OTHER BURRER MARKER AXLE (CURRENT) DRUG THERAPY 08/20/2017 WHITNEY THORNTON MD, Ot E78.00 PURE HYPERCHOLESTEROLEMIA, UNSPECIFIED 08/20/2017 WHITNEY THORNTON MD, Ot F17.210 NICOTINE DEPENDENCE, CIGARETTES, UNCOMPL 08/20/2017 WHITNEY THORNTON MD, Ot F41.9 ANXIETY DISORDER, UNSPECIFIED 08/20/2017 WHITNEY THORNTON MD, Ot G40.909 EPILEPSY, UNSP, NOT INTRACTABLE, WITHOUT 08/20/2017 WHITNEY THORNTON MD, Ot I10 ESSENTIAL (PRIMARY) HYPERTENSION 08/20/2017 WHITNEY THORNTON MD, Ot J06.9 ACUTE UPPER RESPIRATORY INFECTION, UNSPE 08/20/2017 WHITNEY THORNTON MD, Ot J44.9 CHRONIC OBSTRUCTIVE PULMONARY DISEASE, U 08/20/2017 WHITNEY THORNTON MD, Ot K21.9 GASTRO-ESOPHAGEAL REFLUX DISEASE WITHOUT 08/20/2017 WHITNEY THORNTON MD, Ot R05 COUGH 08/20/2017 WHITNEY THORNTON MD, Ot Z87.828 PERSONAL HISTORY OF OTH (HEALED) PHYSICA 08/27/2017 TAYLER SUBRAMANIAN MD Ot E78.5 HYPERLIPIDEMIA, UNSPECIFIED 08/27/2017 TAYLER SUBRAMANIAN MD Ot F17.210 NICOTINE DEPENDENCE, CIGARETTES, UNCOMPL 08/27/2017 TAYLER SUBRAMANIAN MD Ot G40.909 EPILEPSY, UNSP, NOT INTRACTABLE, WITHOUT 08/27/2017 TAYLER SUBRAMANIAN MD Ot G47.33 OBSTRUCTIVE SLEEP APNEA (ADULT) (PEDIATR 08/27/2017 TAYLER SUBRAMANIAN MD, Ot I10 ESSENTIAL (PRIMARY) HYPERTENSION 08/27/2017 TAYLER SUBRAMANIAN MD Ot I49.9 CARDIAC ARRHYTHMIA, UNSPECIFIED 08/27/2017 TAYLER SUBRAMANIAN MD, Ot J44.1 CHRONIC OBSTRUCTIVE PULMONARY DISEASE W 08/27/2017 TAYLER SUBRAMANIAN MD Ot R73.03 PREDIABETES 08/27/2017 TAYLER SUBRAMANIAN MD Ot Z23 ENCOUNTER FOR IMMUNIZATION 08/27/2017 TAYLER SUBRAMANIAN MD Ot Z79.82 INTERMEDIATE (CURRENT) USE OF ASPIRIN 08/27/2017 TAYLER SUBRAMANIAN MD Ot Z79.899 OTHER INTERMEDIATE (CURRENT) DRUG THERAPY 08/27/2017 TAYLER SUBRAMANIAN MD Ot E78.5 HYPERLIPIDEMIA, UNSPECIFIED 08/27/2017 TAYLER SUBRAMANIAN MD Ot F17.210 NICOTINE DEPENDENCE, CIGARETTES, UNCOMPL 08/27/2017 TAYLER SUBRAMANIAN MD Ot G40.909 EPILEPSY, UNSP, NOT INTRACTABLE, WITHOUT 08/27/2017 TAYLER SUBRAMANIAN MD Ot G47.33 OBSTRUCTIVE SLEEP APNEA (ADULT) (PEDIATR 08/27/2017 TAYLER SUBRAMANIAN MD Ot I10 ESSENTIAL (PRIMARY) HYPERTENSION 08/27/2017 TAYLER SUBRAMANIAN MD, Ot I49.9 CARDIAC ARRHYTHMIA, UNSPECIFIED 08/27/2017 TAYLER SUBRAMANIAN MD, Ot J44.1 CHRONIC OBSTRUCTIVE PULMONARY DISEASE W 08/27/2017 TAYLER SUBRAMANIAN MD Ot R73.03 PREDIABETES 08/27/2017 TAYLER SUBRAMANIAN MD Ot Z23 ENCOUNTER FOR IMMUNIZATION 08/27/2017 TAYLER SUBRAMANIAN MD, Ot Z79.82 INTERMEDIATE (CURRENT) USE OF ASPIRIN 08/27/2017 TAYLER SUBRAMANIAN MD Ot Z79.899 OTHER INTERMEDIATE (CURRENT) DRUG THERAPY 09/19/2017 CARMEN HOYOS APRN Ot F12.10 CANNABIS ABUSE, UNCOMPLICATED 09/19/2017 CARMEN HOYOS APRN Ot J44.9 CHRONIC OBSTRUCTIVE PULMONARY DISEASE, U 09/19/2017 CARMEN HOYOS APRN Ot Z72.0 TOBACCO USE 10/24/2017 CARMEN HOYOS BAG FILLER MACHINE OPERATOR Ot F12.10 CANNABIS ABUSE, UNCOMPLICATED 10/24/2017 CARMEN HOYOS APRN Ot J44.9 CHRONIC OBSTRUCTIVE PULMONARY DISEASE, U 10/24/2017 CARMEN HOYOS APRN Ot Z72.0 TOBACCO USE 11/10/2017 CARMEN HOYSO BAG FILLER MACHINE OPERATOR Ot F12.10 CANNABIS ABUSE, UNCOMPLICATED 11/10/2017 CARMEN HOYOS APRN Ot J44.9 CHRONIC OBSTRUCTIVE PULMONARY DISEASE, U 11/10/2017 CARMEN HOYOS APRN Ot Z72.0 TOBACCO USE 12/10/2017 ROMA STRICKLAND APRN Ot E78.00 PURE HYPERCHOLESTEROLEMIA, UNSPECIFIED 12/10/2017 ROMA STRICKLAND APRN Ot F17.210 NICOTINE DEPENDENCE, CIGARETTES, UNCOMPL 12/10/2017 ROMA STRICKLAND APRN Ot F41.9 ANXIETY DISORDER, UNSPECIFIED 12/10/2017 ROMA STRICKLAND APRN Ot G40.909 EPILEPSY, UNSP, NOT INTRACTABLE, WITHOUT 12/10/2017 ROMA STRICKLAND APRN Ot I10 ESSENTIAL (PRIMARY) HYPERTENSION 12/10/2017 ROMA STRICKLAND APRN Ot J44.1 CHRONIC OBSTRUCTIVE PULMONARY DISEASE W 12/10/2017 ROMA STRICKLAND APRN Ot J44.9 CHRONIC OBSTRUCTIVE PULMONARY DISEASE, U 12/10/2017 ROMA STRICKLAND APRN Ot K21.9 GASTRO-ESOPHAGEAL REFLUX DISEASE WITHOUT 12/10/2017 ROMA STRICKLAND APRN Ot R50.9 FEVER, UNSPECIFIED 12/10/2017 ROMA STRICKLAND APRN Ot Z79.52 INTERMEDIATE (CURRENT) USE OF SYSTEMIC STER 12/10/2017 ROMA STRICKLAND APRN Ot Z79.82 BURRER MARKER AXLE (CURRENT) USE OF ASPIRIN 12/12/2017 ROMA STRICKLAND APRN Ot E78.00 PURE HYPERCHOLESTEROLEMIA, UNSPECIFIED 12/12/2017 ROMA STRICKLAND APRN Ot F17.210 NICOTINE DEPENDENCE, CIGARETTES, UNCOMPL 12/12/2017 ROMA STRICKLAND APRN Ot F41.9 ANXIETY DISORDER, UNSPECIFIED 12/12/2017 ROMA STRICKLAND APRN Ot G40.909 EPILEPSY, UNSP, NOT INTRACTABLE, WITHOUT 12/12/2017 ROMA STRICKLAND APRN Ot I10 ESSENTIAL (PRIMARY) HYPERTENSION 12/12/2017 ROMA STRICKLAND APRN Ot J44.1 CHRONIC OBSTRUCTIVE PULMONARY DISEASE W 12/12/2017 ROMA STRICKLAND APRN Ot J44.9 CHRONIC OBSTRUCTIVE PULMONARY DISEASE, U 12/12/2017 ROMA STRICKLAND APRN Ot K21.9 GASTRO-ESOPHAGEAL REFLUX DISEASE WITHOUT 12/12/2017 ROMA STRICKLAND APRN Ot R50.9 FEVER, UNSPECIFIED 12/12/2017 ROMA STRICKLAND APRN Ot Z79.52 INTERMEDIATE (CURRENT) USE OF SYSTEMIC STER 12/12/2017 ROMA STRICKLAND APRN Ot Z79.82 INTERMEDIATE (CURRENT) USE OF ASPIRIN 12/17/2017 CARMEN HOYOS APRN Ot F12.10 CANNABIS ABUSE, UNCOMPLICATED 12/17/2017 CARMEN HOYOS APRN Ot J44.9 CHRONIC OBSTRUCTIVE PULMONARY DISEASE, U 12/17/2017 CARMEN HOYOS APRN Ot Z72.0 TOBACCO USE 12/18/2017 CARMEN HOYOS APRN Ot F12.10 CANNABIS ABUSE, UNCOMPLICATED 12/18/2017 CARMEN HOYOS APRN Ot J44.9 CHRONIC OBSTRUCTIVE PULMONARY DISEASE, U 12/18/2017 CARMEN HOYOS APRN Ot Z72.0 TOBACCO USE 12/21/2017 CHYNA RAE MD Ot E78.00 PURE HYPERCHOLESTEROLEMIA, UNSPECIFIED 12/21/2017 CHYNA RAE MD Ot F12.10 CANNABIS ABUSE, UNCOMPLICATED 12/21/2017 CHYNA RAE MD Ot F17.210 NICOTINE DEPENDENCE, CIGARETTES, UNCOMPL 12/21/2017 CHYNA RAE MD Ot F41.9 ANXIETY DISORDER, UNSPECIFIED 12/21/2017 CHYNA RAE MD Ot G40.909 EPILEPSY, UNSP, NOT INTRACTABLE, WITHOUT 12/21/2017 CHYNA RAE MD Ot G47.30 SLEEP APNEA, UNSPECIFIED 12/21/2017 CHYNA RAE MD Ot I10 ESSENTIAL (PRIMARY) HYPERTENSION 12/21/2017 CHYNA RAE MD Ot J44.1 CHRONIC OBSTRUCTIVE PULMONARY DISEASE W 12/21/2017 CHYNA RAE MD Ot K21.9 GASTRO-ESOPHAGEAL REFLUX DISEASE WITHOUT 12/21/2017 CHYNA RAE MD Ot Z79.52 BURRER MARKER AXLE (CURRENT) USE OF SYSTEMIC STER 12/21/2017 CHYNA RAE MD Ot Z79.82 BURRER MARKER AXLE (CURRENT) USE OF ASPIRIN 12/21/2017 CHYNA RAE MD Ot Z82.49 FAMILY HX OF ISCHEM HEART DIS AND OTH DI 12/21/2017 CHYNA RAE MD Ot Z88.8 ALLERGY STATUS TO OT DRUG/MEDS/BIOL SUB 12/25/2017 CHYNA RAE MD Ot E78.00 PURE HYPERCHOLESTEROLEMIA, UNSPECIFIED 12/25/2017 CHYNA RAE MD Ot F12.10 CANNABIS ABUSE, UNCOMPLICATED 12/25/2017 CHYNA RAE MD Ot F17.210 NICOTINE DEPENDENCE, CIGARETTES, UNCOMPL 12/25/2017 CHYNA RAE MD Ot F41.9 ANXIETY DISORDER, UNSPECIFIED 12/25/2017 CHYNA RAE MD, Ot G40.909 EPILEPSY, UNSP, NOT INTRACTABLE, WITHOUT 12/25/2017 CHYNA RAE MD Ot G47.30 SLEEP APNEA, UNSPECIFIED 12/25/2017 CHYNA RAE MD Ot I10 ESSENTIAL (PRIMARY) HYPERTENSION 12/25/2017 CHYNA RAE MD, Ot J44.1 CHRONIC OBSTRUCTIVE PULMONARY DISEASE W 12/25/2017 CHYNA RAE MD, Ot K21.9 GASTRO-ESOPHAGEAL REFLUX DISEASE WITHOUT 12/25/2017 CHYNA RAE MD Ot Z79.52 BURRER MARKER AXLE (CURRENT) USE OF SYSTEMIC STER 12/25/2017 CHYNA RAE MD Ot Z79.82 BURRER MARKER AXLE (CURRENT) USE OF ASPIRIN 12/25/2017 CHYNA RAE MD Ot Z82.49 FAMILY HX OF ISCHEM HEART DIS AND OTH DI 12/25/2017 CHYNA RAE MD Ot Z88.8 ALLERGY STATUS TO OTH DRUG/MEDS/BIOL SUB 12/27/2017 CHYNA RAE MD Ot E78.00 PURE HYPERCHOLESTEROLEMIA, UNSPECIFIED 12/27/2017 CHYNA RAE MD Ot F12.10 CANNABIS ABUSE, UNCOMPLICATED 12/27/2017 CHYNA RAE MD Ot F17.210 NICOTINE DEPENDENCE, CIGARETTES, UNCOMPL 12/27/2017 CHYNA RAE MD Ot F41.9 ANXIETY DISORDER, UNSPECIFIED 12/27/2017 CHYNA RAE MD Ot G40.909 EPILEPSY, UNSP, NOT INTRACTABLE, WITHOUT 12/27/2017 CHYNA RAE MD Ot G47.30 SLEEP APNEA, UNSPECIFIED 12/27/2017 CHYNA RAE MD Ot I10 ESSENTIAL (PRIMARY) HYPERTENSION 12/27/2017 CHYNA RAE MD, Ot J44.1 CHRONIC OBSTRUCTIVE PULMONARY DISEASE W 12/27/2017 CHYNA RAE MD Ot K21.9 GASTRO-ESOPHAGEAL REFLUX DISEASE WITHOUT 12/27/2017 CHYNA RAE MD Ot Z79.52 INTERMEDIATE (CURRENT) USE OF SYSTEMIC STER 12/27/2017 CHYNA RAE MD Ot Z79.82 INTERMEDIATE (CURRENT) USE OF ASPIRIN 12/27/2017 CHYNA RAE MD Ot Z82.49 FAMILY HX OF ISCHEM HEART DIS AND OTH DI 12/27/2017 CHYNA RAE MD Ot Z88.8 ALLERGY STATUS TO OT DRUG/MEDS/BIOL SUB 01/03/2018 CARMEN HOYOS BAG FILLER MACHINE OPERATOR Ot F12.10 CANNABIS ABUSE, UNCOMPLICATED 01/03/2018 CARMEN HOYOS BAG FILLER MACHINE OPERATOR Ot J44.9 CHRONIC OBSTRUCTIVE PULMONARY DISEASE, U 01/03/2018 CARMEN HOYOS BAG FILLER MACHINE OPERATOR Ot Z72.0 TOBACCO USE 02/21/2018 CARMEN HOYOS BAG FILLER MACHINE OPERATOR Ot F12.10 CANNABIS ABUSE, UNCOMPLICATED 02/21/2018 CARMEN HOYOS BAG FILLER MACHINE OPERATOR Ot J44.9 CHRONIC OBSTRUCTIVE PULMONARY DISEASE, U 02/21/2018 EAS HOYOSINE Lupis BAG FILLER MACHINE OPERATOR Ot Z72.0 TOBACCO USE 03/09/2018 CARMEN HOYOS BAG FILLER MACHINE OPERATOR Ot F12.10 CANNABIS ABUSE, UNCOMPLICATED 03/09/2018 CARMEN HOYOS BAG FILLER MACHINE OPERATOR Ot J44.9 CHRONIC OBSTRUCTIVE PULMONARY DISEASE, U 03/09/2018 SOHAESA KIMINE E BAG FILLER MACHINE OPERATOR Ot Z72.0 TOBACCO USE 04/02/2018 ESA HOYOSINE E BAG FILLER MACHINE OPERATOR Ot F12.10 CANNABIS ABUSE, UNCOMPLICATED 04/02/2018 CARMEN HOYOS BAG FILLER MACHINE OPERATOR Ot J44.9 CHRONIC OBSTRUCTIVE PULMONARY DISEASE, U 04/02/2018 ESA HOYOSINE Lupis BAG FILLER MACHINE OPERATOR Ot Z72.0 TOBACCO USE 04/03/2018 CARMEN HOYOS BAG FILLER MACHINE OPERATOR Ot F12.10 CANNABIS ABUSE, UNCOMPLICATED 04/03/2018 CARMEN HOYOS BAG FILLER MACHINE OPERATOR Ot J44.9 CHRONIC OBSTRUCTIVE PULMONARY DISEASE, U 04/03/2018 ESA HOYOSINE Lupis BAG FILLER MACHINE OPERATOR Ot Z72.0 TOBACCO USE 04/08/2018 ESA HOYOSINE Lupis BAG FILLER MACHINE OPERATOR Ot F12.10 CANNABIS ABUSE, UNCOMPLICATED 04/08/2018 CARMEN HOYOS BAG FILLER MACHINE OPERATOR Ot J44.9 CHRONIC OBSTRUCTIVE PULMONARY DISEASE, U 04/08/2018 CARMEN HOYOS BAG FILLER MACHINE OPERATOR Ot Z72.0 TOBACCO USE 05/03/2018 LANG HUDSON DO Ot Z01.818 ENCOUNTER FOR OTHER PREPROCEDURAL EXAMIN 05/03/2018 LANG HUDSON DO Ot Z01.818 ENCOUNTER FOR OTHER PREPROCEDURAL EXAMIN 05/03/2018 LANG HUDSON DO Ot Z01.818 ENCOUNTER FOR OTHER PREPROCEDURAL EXAMIN 05/08/2018 RENETTA CARDOZA Ot 611.72 LUMP OR MASS IN BREAST 05/08/2018 RENETTA CARDOZA Ot V16.3 FAMILY HX-BREAST MALIG 05/08/2018 LANG HUDSON DO Ot T82.118A BREAKDOWN (MECHANICAL) OF CARDIAC ELECTR 05/08/2018 LANG HUDSON DO Ot Z01.810 ENCOUNTER FOR PREPROCEDURAL CARDIOVASCUL 05/08/2018 LANG HUDSON DO Ot Z01.812 ENCOUNTER FOR PREPROCEDURAL LABORATORY E 05/08/2018 LANG HUDSON DO Ot Z11.2 ENCOUNTER FOR SCREENING FOR OTHER BACTER 05/08/2018 CARMEN HOYOS APRN Ot F17.200 NICOTINE DEPENDENCE, UNSPECIFIED, UNCOMP 05/08/2018 CARMEN HOYOS APRN Ot J44.9 CHRONIC OBSTRUCTIVE PULMONARY DISEASE, U 05/08/2018 CARMEN HOYOS APRN Ot R06.00 DYSPNEA, UNSPECIFIED 05/08/2018 RENETTA CARDOZA Ot M25.561 PAIN IN RIGHT KNEE 05/08/2018 SHAKA ERAZO FAC, ALI FACP CCDS Ot E78.5 HYPERLIPIDEMIA, UNSPECIFIED 05/08/2018 SHAKA ERAZO FAC, ALI FACP CCDS Ot I25.10 ATHSCL HEART DISEASE OF [place] CORONARY 05/08/2018 SHAKA ERAZO FAC, ALI FACP CCDS Ot 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 05/08/2018 SHAKA ERAZO FACC, ALI FACP CCDS Ot R06.02 SHORTNESS OF BREATH 05/08/2018 CARMEN HOYOS APRN Ot F12.10 CANNABIS ABUSE, UNCOMPLICATED 05/08/2018 CRAMEN HOYOS APRN Ot J44.9 CHRONIC OBSTRUCTIVE PULMONARY DISEASE, U 05/08/2018 CARMEN HOYOS APRN Ot Z72.0 TOBACCO USE 05/08/2018 LANG HUDSON DO Ot D12.5 BENIGN NEOPLASM OF SIGMOID COLON 05/08/2018 LANG HUDSON DO Ot F17.210 NICOTINE DEPENDENCE, CIGARETTES, UNCOMPL 05/08/2018 LANG HUDSON DO Ot G47.33 OBSTRUCTIVE SLEEP APNEA (ADULT) (PEDIATR 05/08/2018 HUDSON DO, LANG D Ot I10 ESSENTIAL (PRIMARY) HYPERTENSION 05/08/2018 TRISTAN DOLANG Ot I25.10 ATHSCL HEART DISEASE OF [place] CORONARY 05/08/2018 LANG HUDSON DO Ot J44.9 CHRONIC OBSTRUCTIVE PULMONARY DISEASE, U 05/08/2018 LANG HUDSON DO Ot K62.5 HEMORRHAGE OF ANUS AND RECTUM 05/08/2018 LANG HUDSON DO Ot K63.5 POLYP OF COLON 05/08/2018 TRISTAN DOLANG Ot K64.8 OTHER HEMORRHOIDS 05/08/2018 TRISTAN DOLANG Ot Z79.82 BURRER MARKER AXLE (CURRENT) USE OF ASPIRIN 05/08/2018 LANG HUDSON DO Ot Z79.899 OTHER INTERMEDIATE (CURRENT) DRUG THERAPY 05/08/2018 LANG HUDSON DO D Ot Z80.0 FAMILY HISTORY OF MALIGNANT NEOPLASM OF 05/10/2018 LANG HUDSON DO Ot D12.5 BENIGN NEOPLASM OF SIGMOID COLON 05/10/2018 LANG HUDSON DO Ot F17.210 NICOTINE DEPENDENCE, CIGARETTES, UNCOMPL 05/10/2018 TRISTAN DOLANG Ot G47.33 OBSTRUCTIVE SLEEP APNEA (ADULT) (PEDIATR 05/10/2018 TRISTAN DOLANG Ot I10 ESSENTIAL (PRIMARY) HYPERTENSION 05/10/2018 LANG HUDSON DO Ot I25.10 ATHSCL HEART DISEASE OF [place] CORONARY 05/10/2018 LANG HUDSON DO Ot J44.9 CHRONIC OBSTRUCTIVE PULMONARY DISEASE, U 05/10/2018 LANG HUDSON DO Ot K62.5 HEMORRHAGE OF ANUS AND RECTUM 05/10/2018 LANG HUDSON DO Ot K63.5 POLYP OF COLON 05/10/2018 LANG HUDSON DO Ot K64.8 OTHER HEMORRHOIDS 05/10/2018 LANG HUDSON DO Ot Z79.82 INTERMEDIATE (CURRENT) USE OF ASPIRIN 05/10/2018 LANG HUDSON DO Ot Z79.899 OTHER INTERMEDIATE (CURRENT) DRUG THERAPY 05/10/2018 LANG HUDSON DO Ot Z80.0 FAMILY HISTORY OF MALIGNANT NEOPLASM OF 07/17/2018 SHAKA ERAZO FACC, KAMRYN FACP CCDS Ot I25.10 ATHSCL HEART DISEASE OF [place] CORONARY 07/17/2018 SHAKA ERAZO FACC, KAMRYN FACP CCDS Ot I25.10 ATHSCL HEART DISEASE OF [place] CORONARY 07/18/2018 RENETTA CARDOZA Ot 611.72 LUMP OR MASS IN BREAST 07/18/2018 RENETTA CARDOZA Ot V16.3 FAMILY HX-BREAST MALIG 07/18/2018 LANG HUDSON DO Ot T82.118A BREAKDOWN (MECHANICAL) OF CARDIAC ELECTR 07/18/2018 LANG HUDSON DO Ot Z01.810 ENCOUNTER FOR PREPROCEDURAL CARDIOVASCUL 07/18/2018 LANG HUDSON DO Ot Z01.812 ENCOUNTER FOR PREPROCEDURAL LABORATORY E 07/18/2018 LANG HUDSON DO Ot Z11.2 ENCOUNTER FOR SCREENING FOR OTHER BACTER 07/18/2018 CARMEN HOYOS APRN Ot F17.200 NICOTINE DEPENDENCE, UNSPECIFIED, UNCOMP 07/18/2018 CARMEN HOYOS APRN Ot J44.9 CHRONIC OBSTRUCTIVE PULMONARY DISEASE, U 07/18/2018 CARMEN HOYOS APRN Ot R06.00 DYSPNEA, UNSPECIFIED 07/18/2018 RENETTA CARDOZA Ot M25.561 PAIN IN RIGHT KNEE 07/18/2018 SHAKA ERAZO FACC, KAMRYN FACP CCDS Ot E78.5 HYPERLIPIDEMIA, UNSPECIFIED 07/18/2018 SHAKA ERAZO FACC, KAMRYN FACP CCDS Ot I25.10 ATHSCL HEART DISEASE OF [place] CORONARY 07/18/2018 SHAKA ERAZO FACC, KAMRYN FACP CCDS Ot 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 07/18/2018 SHAKA ERAZO FACC, KAMRYN FACP CCDS Ot R06.02 SHORTNESS OF BREATH 07/18/2018 CARMEN HOYOS APRN Ot F12.10 CANNABIS ABUSE, UNCOMPLICATED 07/18/2018 CARMEN HOYOS APRN Ot J44.9 CHRONIC OBSTRUCTIVE PULMONARY DISEASE, U 07/18/2018 CARMEN HOYOS APRN Ot Z72.0 TOBACCO USE 07/18/2018 SHAKA ERAZO FACC, KAMRYN FACP CCDS Ot I25.10 ATHSCL HEART DISEASE OF [place] CORONARY 07/18/2018 SHAKA MD FACC, ALI FACP CCDS Ot I25.10 ATHSCL HEART DISEASE OF [place] CORONARY 07/20/2018 SHAKA ERAZO FACC, ALI FACP CCDS Ot I25.10 ATHSCL HEART DISEASE OF [place] CORONARY 07/23/2018 SHAKA ERAZO FACC, ALI FACP CCDS Ot E78.5 HYPERLIPIDEMIA, UNSPECIFIED 07/23/2018 SHAKA ERAZO FACC, ALI FACP CCDS Ot I25.10 ATHSCL HEART DISEASE OF [place] CORONARY 07/23/2018 SHAKA ERAZO FACC, ALI FACP CCDS Ot I73.9 PERIPHERAL VASCULAR DISEASE, UNSPECIFIED 07/23/2018 SHAKA ERAZO FACC, ALI FACP CCDS Ot I77.89 OTHER SPECIFIED DISORDERS OF ARTERIES AN 07/23/2018 SHAKA ERAZO FACC, ALI FACP CCDS Ot R06.02 SHORTNESS OF BREATH 07/23/2018 SHAKA ERAZO FACC, ALI FACP CCDS Ot Z72.0 TOBACCO USE 07/23/2018 SHAKA ERAZO FACC, ALI FACP CCDS Ot E78.5 HYPERLIPIDEMIA, UNSPECIFIED 07/23/2018 SHAKA ERAZO FACC, ALI FACP CCDS Ot I25.10 ATHSCL HEART DISEASE OF [place] CORONARY 07/23/2018 SHAKA ERAZO FACC, ALI FACP CCDS Ot I73.9 PERIPHERAL VASCULAR DISEASE, UNSPECIFIED 07/23/2018 SHAKA ERAZO FACC, ALI FACP CCDS Ot I77.89 OTHER SPECIFIED DISORDERS OF ARTERIES AN 07/23/2018 SHAKA REESC, ALI FACP CCDS Ot R06.02 SHORTNESS OF BREATH 07/23/2018 SHAKA REES, ALI FACP CCDS Ot Z72.0 TOBACCO USE 07/24/2018 RENETTA CARDOZA Ot 611.72 LUMP OR MASS IN BREAST 07/24/2018 RENETTA CARDOZA Ot V16.3 FAMILY HX-BREAST MALIG 07/24/2018 LANG HUDSON DO Ot T82.118A BREAKDOWN (MECHANICAL) OF CARDIAC ELECTR 07/24/2018 LANG HUDSON DO Ot Z01.810 ENCOUNTER FOR PREPROCEDURAL CARDIOVASCUL 07/24/2018 LANG HUDSON DO Ot Z01.812 ENCOUNTER FOR PREPROCEDURAL LABORATORY E 07/24/2018 LANG HUDSON DO Ot Z11.2 ENCOUNTER FOR SCREENING FOR OTHER BACTER 07/24/2018 CARMEN HOYOS APRN Ot F17.200 NICOTINE DEPENDENCE, UNSPECIFIED, UNCOMP 07/24/2018 CARMEN HOYOS APRN Ot J44.9 CHRONIC OBSTRUCTIVE PULMONARY DISEASE, U 07/24/2018 CARMEN HOYOS APRN Ot R06.00 DYSPNEA, UNSPECIFIED 07/24/2018 RENETTA CARDOZA Ot M25.561 PAIN IN RIGHT KNEE 07/24/2018 SHAKA ERAZO FACC, ALI FACP CCDS Ot E78.5 HYPERLIPIDEMIA, UNSPECIFIED 07/24/2018 SHAKA ERAZO FACC, ALI FACP CCDS Ot I25.10 ATHSCL HEART DISEASE OF [place] CORONARY 07/24/2018 SHAKA ERAZO FACC, ALI FACP CCDS Ot 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 07/24/2018 SHAKA ERAZO FACC, ALI FACP CCDS Ot R06.02 SHORTNESS OF BREATH 07/24/2018 CARMEN HOYOS APRN Ot F12.10 CANNABIS ABUSE, UNCOMPLICATED 07/24/2018 CARMEN HOYOS APRN Ot J44.9 CHRONIC OBSTRUCTIVE PULMONARY DISEASE, U 07/24/2018 CARMEN HOYOS APRN Ot Z72.0 TOBACCO USE 07/24/2018 SHAKA ERAZO FACC, ALI FACP CCDS Ot E78.5 HYPERLIPIDEMIA, UNSPECIFIED 07/24/2018 SHAKA ERAZO FACC, ALI FACP CCDS Ot I25.10 ATHSCL HEART DISEASE OF [place] CORONARY 07/24/2018 SHAKA ERAZO FACC, ALI FACP CCDS Ot I73.9 PERIPHERAL VASCULAR DISEASE, UNSPECIFIED 07/24/2018 SHAKA ERAZO FACC, ALI FACP CCDS Ot I77.89 OTHER SPECIFIED DISORDERS OF ARTERIES AN 07/24/2018 SHAKA ERAZO FACC, ALI FACP CCDS Ot R06.02 SHORTNESS OF BREATH 07/24/2018 SHAKA ERAZO FACC, ALI FACP CCDS Ot Z72.0 TOBACCO USE 07/24/2018 SHAKA ERAZO FACC, ALI FACP CCDS Ot I25.10 ATHSCL HEART DISEASE OF [place] CORONARY 07/26/2018 SHAKA ERAZO FACC, ALI FACP CCDS Ot I25.10 ATHSCL HEART DISEASE OF [place] CORONARY 07/26/2018 RENETTA CARDOZA Ot 611.72 LUMP OR MASS IN BREAST 07/26/2018 RENETTA CARDOZA Ot V16.3 FAMILY HX-BREAST MALIG 07/26/2018 LANG HUDSON DO Ot T82.118A BREAKDOWN (MECHANICAL) OF CARDIAC ELECTR 07/26/2018 LANG HUDSON DO Ot Z01.810 ENCOUNTER FOR PREPROCEDURAL CARDIOVASCUL 07/26/2018 LANG HUDSON DO Ot Z01.812 ENCOUNTER FOR PREPROCEDURAL LABORATORY E 07/26/2018 HUDSON LANG MYRICK Ot Z11.2 ENCOUNTER FOR SCREENING FOR OTHER BACTER 07/26/2018 ACRMEN HOYOS APRN Ot F17.200 NICOTINE DEPENDENCE, UNSPECIFIED, UNCOMP 07/26/2018 CARMEN HOYOS APRN Ot J44.9 CHRONIC OBSTRUCTIVE PULMONARY DISEASE, U 07/26/2018 CARMEN HOYOS APRN Ot R06.00 DYSPNEA, UNSPECIFIED 07/26/2018 RENETTA CARDOZA Ot M25.561 PAIN IN RIGHT KNEE 07/26/2018 SHAKA ERAZO FACC, KAMRYN FACP CCDS Ot E78.5 HYPERLIPIDEMIA, UNSPECIFIED 07/26/2018 SHAKA ERAZO FACC, ALI FACP CCDS Ot I25.10 ATHSCL HEART DISEASE OF [place] CORONARY 07/26/2018 SHAKA ERAZO FACC, KAMRYN FACP CCDS Ot 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 07/26/2018 SHAKA ERAZO FACC, ALI FACP CCDS Ot R06.02 SHORTNESS OF BREATH 07/26/2018 CARMEN HOYOS APRN Ot F12.10 CANNABIS ABUSE, UNCOMPLICATED 07/26/2018 CARMEN HOYOS APRN Ot J44.9 CHRONIC OBSTRUCTIVE PULMONARY DISEASE, U 07/26/2018 CARMEN HOYOS APRN Ot Z72.0 TOBACCO USE 07/26/2018 SHAKA ERAZO FACC, KAMRYN FACP CCDS Ot E78.5 HYPERLIPIDEMIA, UNSPECIFIED 07/26/2018 SHAKA ERAZO FACC, ALI FACP CCDS Ot I25.10 ATHSCL HEART DISEASE OF [place] CORONARY 07/26/2018 SHAKA ERAZO FACC, KAMRYN FACP CCDS Ot I73.9 PERIPHERAL VASCULAR DISEASE, UNSPECIFIED 07/26/2018 SHAKA ERAZO FACC, ALI FACP CCDS Ot I77.89 OTHER SPECIFIED DISORDERS OF ARTERIES AN 07/26/2018 SHAKA REESC, ALI FACP CCDS Ot R06.02 SHORTNESS OF BREATH 07/26/2018 SHAKA ERAZO FACC, ALI FACP CCDS Ot Z72.0 TOBACCO USE 07/26/2018 SHAKA ERAZO FACC, ALI FACP CCDS Ot I25.10 ATHSCL HEART DISEASE OF [place] CORONARY 07/26/2018 SHAKA ERAZO FACC, ALI FACP CCDS Ot E78.5 HYPERLIPIDEMIA, UNSPECIFIED 07/26/2018 SHAKA ERAZO FACC, ALI FACP CCDS Ot I25.10 ATHSCL HEART DISEASE OF [place] CORONARY 07/26/2018 SHAKA ERAZO FACC, ALI FACP CCDS Ot I73.9 PERIPHERAL VASCULAR DISEASE, UNSPECIFIED 07/26/2018 SHAKA ERAZO FACC, ALI FACP CCDS Ot I77.89 OTHER SPECIFIED DISORDERS OF ARTERIES AN 07/26/2018 SHAKA REESC, ALI FACP CCDS Ot R06.02 SHORTNESS OF BREATH 07/26/2018 SHAKA REESC, ALI FACP CCDS Ot Z72.0 TOBACCO USE 08/03/2018 SHAKA ERAZO FACC, ALI FACP CCDS Ot E78.5 HYPERLIPIDEMIA, UNSPECIFIED 08/03/2018 SHAKA ERAZO FACC, ALI FACP CCDS Ot I25.10 ATHSCL HEART DISEASE OF [place] CORONARY 08/03/2018 SHAKA ERAZO FACC, ALI FACP CCDS Ot I73.9 PERIPHERAL VASCULAR DISEASE, UNSPECIFIED 08/03/2018 SHAKA REESC, ALI FACP CCDS Ot I77.89 OTHER SPECIFIED DISORDERS OF ARTERIES AN 08/03/2018 SHAKA REESC, ALI FACP CCDS Ot R06.02 SHORTNESS OF BREATH 08/03/2018 SHAKA REESC, ALI FACP CCDS Ot Z72.0 TOBACCO USE 08/10/2018 SHAKA REESC, ALI FACP CCDS Ot E78.4 OTHER HYPERLIPIDEMIA 08/10/2018 SHAKA REESC, ALI FACP CCDS Ot F17.200 NICOTINE DEPENDENCE, UNSPECIFIED, UNCOMP 08/10/2018 SHAKA REESC, ALI FACP CCDS Ot I10 ESSENTIAL (PRIMARY) HYPERTENSION 08/10/2018 SHAKA REESC, ALI FACP CCDS Ot I25.10 ATHSCL HEART DISEASE OF [place] CORONARY 08/10/2018 SHAKA MD FACC, ALI FACP CCDS Ot 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 08/10/2018 SHAKA MD FACC, ALI FACP CCDS Ot I70.213 ATHSCL [place] ARTERIES OF EXTRM W INTRMT 08/10/2018 SHAKA MD FACC, ALI FACP CCDS Ot E78.4 OTHER HYPERLIPIDEMIA 08/10/2018 SHAKA MD FACC, ALI FACP CCDS Ot F17.200 NICOTINE DEPENDENCE, UNSPECIFIED, UNCOMP 08/10/2018 SHAKA MD FACC, ALI FACP CCDS Ot I10 ESSENTIAL (PRIMARY) HYPERTENSION 08/10/2018 SHAKA MD FACC, ALI FACP CCDS Ot I25.10 ATHSCL HEART DISEASE OF [place] CORONARY 08/10/2018 SHAKA MD FACC, ALI FACP CCDS Ot 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 08/10/2018 SHAKA MD FACC, ALI FACP CCDS Ot I70.213 ATHSCL [place] ARTERIES OF EXTRM W INTRMT 08/21/2018 SHAKA MD FACC, ALI FACP CCDS Ot E78.4 OTHER HYPERLIPIDEMIA 08/21/2018 SHAKA MD FACC, ALI FACP CCDS Ot F17.200 NICOTINE DEPENDENCE, UNSPECIFIED, UNCOMP 08/21/2018 SHAKA MD FACC, ALI FACP CCDS Ot I10 ESSENTIAL (PRIMARY) HYPERTENSION 08/21/2018 SHAKA MD FACC, ALI FACP CCDS Ot I25.10 ATHSCL HEART DISEASE OF [place] CORONARY 08/21/2018 SHAKA ERAZO FACC, ALI FACP CCDS Ot 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 08/21/2018 SHAKA ERAZO FACC, ALI FACP CCDS Ot I70.213 ATHSCL [place] ARTERIES OF EXTRM W INTRMT 08/22/2018 NWELIF CAZARES BAG FILLER MACHINE OPERATOR Ot N43.3 HYDROCELE, UNSPECIFIED 09/06/2018 JACKY MARIEERE Billy BAG FILLER MACHINE OPERATOR Ot N43.3 HYDROCELE, UNSPECIFIED 11/14/2018 LANG HUDSON DO Ot Z01.818 ENCOUNTER FOR OTHER PREPROCEDURAL EXAMIN 11/16/2018 LANG HUDSON DO Ot Z01.818 ENCOUNTER FOR OTHER PREPROCEDURAL EXAMIN 11/16/2018 LANG HUDSON DO Ot Z01.818 ENCOUNTER FOR OTHER PREPROCEDURAL EXAMIN 11/20/2018 LANG HUDSON DO Ot D12.2 BENIGN NEOPLASM OF ASCENDING COLON 11/20/2018 LANG HUDSON DO Ot E66.9 OBESITY, UNSPECIFIED 11/20/2018 LANG HUDSON DO Ot E78.5 HYPERLIPIDEMIA, UNSPECIFIED 11/20/2018 LANG HUDSON DO Ot F17.210 NICOTINE DEPENDENCE, CIGARETTES, UNCOMPL 11/20/2018 LANG HUDSON DO Ot G47.33 OBSTRUCTIVE SLEEP APNEA (ADULT) (PEDIATR 11/20/2018 LANG HUDSON DO Ot I10 ESSENTIAL (PRIMARY) HYPERTENSION 11/20/2018 LANG HUDSON DO Ot I25.10 ATHSCL HEART DISEASE OF [place] CORONARY 11/20/2018 LANG HUDSON DO Ot J44.9 CHRONIC OBSTRUCTIVE PULMONARY DISEASE, U 11/20/2018 LANG HUDSON DO Ot K21.9 GASTRO-ESOPHAGEAL REFLUX DISEASE WITHOUT 11/20/2018 LANG HUDSON DO Ot K62.1 RECTAL POLYP 11/20/2018 LANG HUDSON DO Ot R56.9 UNSPECIFIED CONVULSIONS 11/20/2018 LANG HUDSON DO Ot Z12.11 ENCOUNTER FOR SCREENING FOR MALIGNANT NE 11/20/2018 LANG HUDSON DO Ot Z68.36 BODY MASS INDEX (BMI) 36.0-36.9, ADULT 11/20/2018 LANG HUDSON DO Ot Z79.02 BURRER MARKER AXLE (CURRENT) USE OF ANTITHROMBOTI 11/20/2018 LANG HUDSON DO Ot Z79.82 BURRER MARKER AXLE (CURRENT) USE OF ASPIRIN 11/20/2018 LANG HUDSON DO Ot Z79.899 OTHER INTERMEDIATE (CURRENT) DRUG THERAPY 11/22/2018 LANG HUDSON DO Ot D12.2 BENIGN NEOPLASM OF ASCENDING COLON 11/22/2018 LANG HUDSON DO Ot E66.9 OBESITY, UNSPECIFIED 11/22/2018 LANG HUDSON DO Ot E78.5 HYPERLIPIDEMIA, UNSPECIFIED 11/22/2018 LANG HUDSON DO Ot F17.210 NICOTINE DEPENDENCE, CIGARETTES, UNCOMPL 11/22/2018 LANG HUDSON DO Ot G47.33 OBSTRUCTIVE SLEEP APNEA (ADULT) (PEDIATR 11/22/2018 LANG HUDSON DO Ot I10 ESSENTIAL (PRIMARY) HYPERTENSION 11/22/2018 LANG HUDSON DO Ot I25.10 ATHSCL HEART DISEASE OF [place] CORONARY 11/22/2018 LANG HUDSON DO Ot J44.9 CHRONIC OBSTRUCTIVE PULMONARY DISEASE, U 11/22/2018 LANG HUDSON DO Ot K21.9 GASTRO-ESOPHAGEAL REFLUX DISEASE WITHOUT 11/22/2018 LANG HUDSON DO Ot K62.1 RECTAL POLYP 11/22/2018 LANG HUDSON DO Ot R56.9 UNSPECIFIED CONVULSIONS 11/22/2018 LANG HUDSON DO Ot Z12.11 ENCOUNTER FOR SCREENING FOR MALIGNANT NE 11/22/2018 LANG HUDSON DO Ot Z68.36 BODY MASS INDEX (BMI) 36.0-36.9, ADULT 11/22/2018 LANG HUDSON DO Ot Z79.02 INTERMEDIATE (CURRENT) USE OF ANTITHROMBOTI 11/22/2018 LANG HUDSON DO Ot Z79.82 INTERMEDIATE (CURRENT) USE OF ASPIRIN 11/22/2018 LANG HUDSON DO Ot Z79.899 OTHER INTERMEDIATE (CURRENT) DRUG THERAPY 11/23/2018 LANG HUDSON DO Ot D12.2 BENIGN NEOPLASM OF ASCENDING COLON 11/23/2018 LANG HUDSON DO Ot E66.9 OBESITY, UNSPECIFIED 11/23/2018 LANG HUDSON DO Ot E78.5 HYPERLIPIDEMIA, UNSPECIFIED 11/23/2018 LANG HUDSON DO Ot F17.210 NICOTINE DEPENDENCE, CIGARETTES, UNCOMPL 11/23/2018 LANG HUDSON DO Ot G47.33 OBSTRUCTIVE SLEEP APNEA (ADULT) (PEDIATR 11/23/2018 LANG HUDSON DO Ot I10 ESSENTIAL (PRIMARY) HYPERTENSION 11/23/2018 LANG HUDSON DO Ot I25.10 ATHSCL HEART DISEASE OF [place] CORONARY 11/23/2018 LANG HUDSON DO Ot J44.9 CHRONIC OBSTRUCTIVE PULMONARY DISEASE, U 11/23/2018 LANG HUDSON DO Ot K21.9 GASTRO-ESOPHAGEAL REFLUX DISEASE WITHOUT 11/23/2018 LANG HUDSON DO Ot K62.1 RECTAL POLYP 11/23/2018 LANG HUDSON DO Ot R56.9 UNSPECIFIED CONVULSIONS 11/23/2018 LANG HUDSON DO Ot Z12.11 ENCOUNTER FOR SCREENING FOR MALIGNANT NE 11/23/2018 LANG HUDSON DO Ot Z68.36 BODY MASS INDEX (BMI) 36.0-36.9, ADULT 11/23/2018 LANG HUDSON DO Ot Z79.02 BURRER MARKER AXLE (CURRENT) USE OF ANTITHROMBOTI 11/23/2018 LANG HUDSON DO Ot Z79.82 BURRER MARKER AXLE (CURRENT) USE OF ASPIRIN 11/23/2018 LANG HUDSON DO Ot Z79.899 OTHER INTERMEDIATE (CURRENT) DRUG THERAPY 11/26/2018 LANG HUDSON DO Ot D12.2 BENIGN NEOPLASM OF ASCENDING COLON 11/26/2018 LANG HUDSON DO Ot E66.9 OBESITY, UNSPECIFIED 11/26/2018 LANG HUDSON DO Ot E78.5 HYPERLIPIDEMIA, UNSPECIFIED 11/26/2018 LANG HUDSON DO Ot F17.210 NICOTINE DEPENDENCE, CIGARETTES, UNCOMPL 11/26/2018 LANG HUDSON DO Ot G47.33 OBSTRUCTIVE SLEEP APNEA (ADULT) (PEDIATR 11/26/2018 LANG HUDSON DO Ot I10 ESSENTIAL (PRIMARY) HYPERTENSION 11/26/2018 LANG HUDSON DO Ot I25.10 ATHSCL HEART DISEASE OF [place] CORONARY 11/26/2018 LANG HUDSON DO Ot J44.9 CHRONIC OBSTRUCTIVE PULMONARY DISEASE, U 11/26/2018 LANG HUDSON DO Ot K21.9 GASTRO-ESOPHAGEAL REFLUX DISEASE WITHOUT 11/26/2018 LANG HUDSON DO Ot K62.1 RECTAL POLYP 11/26/2018 LANG HUDSON DO Ot R56.9 UNSPECIFIED CONVULSIONS 11/26/2018 LANG HUDSON DO Ot Z12.11 ENCOUNTER FOR SCREENING FOR MALIGNANT NE 11/26/2018 LANG HUDSON DO Ot Z68.36 BODY MASS INDEX (BMI) 36.0-36.9, ADULT 11/26/2018 LANG HUDSON DO Ot Z79.02 INTERMEDIATE (CURRENT) USE OF ANTITHROMBOTI 11/26/2018 LANG HUDSON DO Ot Z79.82 INTERMEDIATE (CURRENT) USE OF ASPIRIN 11/26/2018 LANG HUDSON DO Ot Z79.899 OTHER INTERMEDIATE (CURRENT) DRUG THERAPY Procedures Code Description [place] [address] EEG 09/09/2012 80231 SPIROMETRY 01/03/2013 84833 BRONCHODILATION PRE/POST 01/03/2013 97995 RESPIRATORY FLOW VOLUME LOOP 01/03/2013 23972 XRAY CHEST 2 VIEW 01/24/2013 56343 OXIMETRY 03/21/2013 71264 ROUTINE VENIPUNCTURE 03/28/2013 27894 SLEEP STUDY 03/28/2013 16812 DILANTIN 03/28/2013 46321 XRAY CHEST 2 VIEW 06/07/2013 CARDIOLOG KAMRYN MATT 07/31/2013 35203 A1C (IN-HOUSE) 07/31/2013 55251 ECHO 2D 09/18/2013 36668 HEART CATH 09/18/2013 53800 ROUTINE VENIPUNCTURE 10/21/2013 68132 HEP C ANTIBODY ([facility]) 10/21/2013 07820 LIPID PANEL 10/21/2013 23884 CBC 10/21/2013 [id number] GFR CALC (RESULT ONLY) 10/21/2013 65988 CMP 10/21/2013 04371 OXIMETRY 12/04/2013 31016 NUCLEAR STRESS TESTING 12/04/2013 13145 OXIMETRY 03/05/2014 45744 SKIN TAG REM 1-15 03/25/2014 28845 ROUTINE VENIPUNCTURE 04/14/2014 [id number] GFR CALC (RESULT ONLY) 04/14/2014 24879 CMP 04/14/2014 05117 LIPID PANEL 04/14/2014 47124 A1C (RML) 04/21/2014 24916 CBC 04/21/2014 [id number] GFR CALC (RESULT ONLY) 04/21/2014 76548 BMP 04/21/2014 05801 RENAL PROFILE 04/21/2014 16848 SKIN TAG REM 1-15 05/06/2014 81837 OXIMETRY 05/06/2014 56549 OXIMETRY 06/04/2014 01634 EVENT MONITOR 06/09/2014 14468 US CAROTID DOPPLER 06/09/2014 51227 OXIMETRY 06/09/2014 00276 TILT TABLE EVALUATION 06/17/2014 95169 LEFT HEART CATH 07/16/2014 68667 OXIMETRY 07/16/2014 07626 ROUTINE VENIPUNCTURE 07/30/2014 [id number] GFR CALC (RESULT ONLY) 07/30/2014 67988 CMP 07/30/2014 08092 ROUTINE VENIPUNCTURE 08/13/2014 64296 MRI BRAIN W/O & W/DYE 08/13/2014 34896 EEG 08/13/2014 95805 BMP 08/13/2014 72146 MAGNESIUM 08/13/20140334115 GFR CALC (RESULT ONLY) 08/13/2014 61768 SKIN TAG REM 1-15 08/26/2014 67161 OXIMETRY 08/26/2014 52149 OXIMETRY 10/08/2014 NEUROLOGY OLIVER MONTANEZJUDY 10/08/2014 93908 XRAY HAND LEFT 2 VIEWS 10/11/2014 04442 OXIMETRY 11/19/2014 30192 INFLUENZA A & B (IN-HOUSE) 11/19/2014 37645 OXIMETRY 02/09/2015 GENERAL S HUDSONBRANNON GOLDTT 02/09/2015 Results Test Result Range CBC With Differential/Platelet - 11/23/16 08:21 WBC 5.2 x10E3/uL 3.4-10.8 RBC 5.77 x10E6/uL 4.14-5.80 Hemoglobin 17.6 g/dL 12.6-17.7 Hematocrit 52.6 % 37.5-51.0 MCV 91 fL 79-97 MCH 30.5 pg 26.6-33.0 MCHC 33.5 g/dL 31.5-35.7 RDW 14.3 % 12.3-15.4 Platelets 198 x10E3/uL 150-379 Neutrophils 69 % Lymphs 21 % Monocytes 6 % Eos 4 % Basos 0 % Neutrophils (Absolute) 3.6 x10E3/uL 1.4-7.0 Lymphs (Absolute) 1.1 x10E3/uL 0.7-3.1 Monocytes(Absolute) 0.3 x10E3/uL 0.1-0.9 Eos (Absolute) 0.2 x10E3/uL 0.0-0.4 Baso (Absolute) 0.0 x10E3/uL 0.0-0.2 Immature Granulocytes 0 % Immature Grans (Abs) 0.0 x10E3/uL 0.0-0.1 Comp. Metabolic Panel (14) - 11/23/16 08:21 Glucose, Serum 137 mg/dL 65-99 BUN 14 mg/dL 6-24 Creatinine, Serum 0.90 mg/dL 0.76-1.27 eGFR If NonAfricn Am 96 mL/min/1.73 >59 eGFR If Africn Am 112 mL/min/1.73 >59 BUN/Creatinine Ratio 16 9-20 Sodium, Serum 137 mmol/L 134-144 Potassium, Serum 4.0 mmol/L 3.5-5.2 Chloride, Serum 93 mmol/L 96-106 Carbon Dioxide, Total 26 mmol/L 18-29 Calcium, Serum 9.2 mg/dL 8.7-10.2 Protein, Total, Serum 7.0 g/dL 6.0-8.5 Albumin, Serum 3.9 g/dL 3.5-5.5 Globulin, Total 3.1 g/dL 1.5-4.5 A/G Ratio 1.3 1.1-2.5 Bilirubin, Total <0.2 mg/dL 0.0-1.2 Alkaline Phosphatase, S 149 IU/L 39-117 AST (SGOT) 13 IU/L 0-40 ALT (SGPT) 25 IU/L 0-44 Lipid Panel - 11/23/16 08:21 Cholesterol, Total 229 mg/dL 100-199 Triglycerides 799 mg/dL 0-149 HDL Cholesterol 26 mg/dL >39 VLDL Cholesterol Roe Comment mg/dL 5-40 LDL Cholesterol Calc Comment mg/dL 0-99 TSH - 11/23/16 08:21 TSH 3.050 uIU/mL 0.450-4.500 Methicillin resistant Staphylococcus aureus (MRSA) screening culture - 06/15/17 09:30 Methicillin resistant Staphylococcus aureus (MRSA) screening culture NEG [facility] Serum or plasma phenytoin measurement (mass/volume) - 06/21/17 06:45 Serum or plasma phenytoin measurement (mass/volume) 3.8 ug/mL 10.0-20.0 Methicillin resistant Staphylococcus aureus (MRSA) screening culture - 08/07/17 12:00 Methicillin resistant Staphylococcus aureus (MRSA) screening culture NEG [facility] Influenza virus A and B antigen detection - 08/20/17 08:55 FLU RESULT NEGATIVE FOR INFLUENZA A AND B ANTIGENS BY IA [facility] Complete blood count (CBC) with [...] Automated erythrocyte mean corpuscular hemoglobin concentration measurement (mass/volume) 34 g/dL 32-36 Automated erythrocyte distribution width ratio 14.0 % 10.0- 14.5 Automated blood platelet count (count/volume) 182 10*3/uL [...] Blood monocytes automated count (number/volume) 0.5 10*3 0.0- 1.0 Automated eosinophil count 0.1 10*3/uL 0.0-0.3 Automated [...] Automated erythrocyte mean corpuscular hemoglobin concentration measurement (mass/volume) 34 g/dL 32-36 Automated erythrocyte distribution width ratio 13.8 % 10.0- 14.5 Automated blood platelet count (count/volume) 181 10*3/uL [...] Blood monocytes automated count (number/volume) 0.2 10*3 0.0- 1.0 Automated eosinophil count 0.0 10*3/uL 0.0-0.3 Automated [...] granules detection by light microscopy 1+ NRG Complete blood count (CBC) with automated white blood cell (WBC) differential - 12/21/17 07:42 Blood leukocytes automated count (number/volume) 6.7 10*3/uL 4.3-11.0 Blood erythrocytes automated count (number/volume) 5.30 10*6/uL 4.35-5.85 Venous blood hemoglobin measurement (mass/volume) 16.6 g/dL 13.3-17.7 Blood hematocrit (volume fraction) 48 % 40-54 Automated erythrocyte mean corpuscular volume 91 [foz_us] 80-99 Automated erythrocyte mean corpuscular hemoglobin (mass per erythrocyte) 31 pg 25-34 Automated erythrocyte mean corpuscular hemoglobin concentration measurement (mass/volume) 34 g/dL 32-36 Automated erythrocyte distribution width ratio 14.0 % 10.0- 14.5 Automated blood platelet count (count/volume) 191 10*3/uL 130-400 Automated blood platelet mean volume measurement 9.1 [foz_us] 7.4-10.4 Automated blood neutrophils/100 leukocytes 76 % 42-75 Automated blood lymphocytes/100 leukocytes 13 % 12-44 Blood monocytes/100 leukocytes 7 % 0-12 Automated blood eosinophils/100 leukocytes 3 % 0-10 Automated blood basophils/100 leukocytes 1 % 0-10 Blood neutrophils automated count (number/volume) 5.1 10*3 1.8-7.8 Blood lymphocytes automated count (number/volume) 0.9 10*3 1.0-4.0 Blood monocytes automated count (number/volume) 0.5 10*3 0.0- 1.0 Automated eosinophil count 0.2 10*3/uL 0.0-0.3 Automated blood basophil count (count/volume) 0.1 10*3/uL 0.0-0.1 Comprehensive metabolic panel - 12/21/17 07:42 Serum or plasma sodium measurement (moles/volume) 135 mmol/L 135-145 Serum or plasma potassium measurement (moles/volume) 3.7 mmol/L 3.6-5.0 Serum or plasma chloride measurement (moles/volume) 102 mmol/L 98-107 Carbon dioxide 21 mmol/L 21-32 Serum or plasma anion gap determination (moles/volume) 12 mmol/L 5-14 Serum or plasma urea nitrogen measurement (mass/volume) 18 mg/dL 7-18 Serum or plasma creatinine measurement (mass/volume) 0.94 mg/dL 0.60-1.30 Serum or plasma urea nitrogen/creatinine mass ratio 19 NRG Serum or plasma creatinine measurement with calculation of estimated glomerular filtration rate > NRG Serum or plasma glucose measurement (mass/volume) 180 mg/dL 70-105 Serum or plasma calcium measurement (mass/volume) 8.5 mg/dL 8.5-10.1 Serum or plasma total bilirubin measurement (mass/volume) 0.4 mg/dL 0.1-1.0 Serum or plasma alkaline phosphatase measurement (enzymatic activity/volume) 120 U/L 40-136 Serum or plasma aspartate aminotransferase measurement (enzymatic activity/volume) 22 U/L 5-34 Serum or plasma alanine aminotransferase measurement (enzymatic activity/volume) 31 U/L 0-55 Serum or plasma protein measurement (mass/volume) 7.0 g/dL 6.4-8.2 Serum or plasma albumin measurement (mass/volume) 3.6 g/dL 3.2-4.5 LIPID PANEL - 04/02/18 08:02 CHOLESTEROL, TOTAL 287 mg/dL <200 HDL CHOLESTEROL 25 mg/dL >40 TRIGLYCERIDES 1754 mg/dL <150 LDL-CHOLESTEROL mg/dL (calc) NRG CHOL/HDLC RATIO 11.5 (calc) <5.0 NON HDL CHOLESTEROL 262 mg/dL (calc) <130 GC/CHLAMYDIA (SWAB OR URINE)-RAPID - 08/20/18 11:05 CHLAMYDIA TRACHOMATIS RNA, TMA NOT DETECTED NOT DETECTED NEISSERIA GONORRHOEAE RNA, TMA NOT DETECTED NOT DETECTED COMMENT NRG Encounters ACCT No. Visit Date/Time Discharge Status Pt. Type Provider Facility Loc./Unit Complaint [id number] 02/09/2015 11:51:00 02/09/2015 23:59:59 CLS Outpatient RENETTA CARDOZA APRN [id number] 11/24/2014 15:18:00 11/24/2014 23:59:59 CLS Outpatient RENETTA CARDOZA APRN [id number] 11/19/2014 16:14:00 11/19/2014 23:59:59 CLS Outpatient RENETTA CARDOZA APRN [id number] 10/09/2014 14:27:00 10/09/2014 23:59:59 CLS Outpatient JENNA LOVING MD [id number] 10/08/2014 14:16:00 10/08/2014 23:59:59 CLS Outpatient RENETTA CARDOZA APRN [id number] 08/26/2014 14:58:00 08/26/2014 23:59:59 CLS Outpatient RENETTA CARDOZA APRN [id number] 08/16/2014 00:00:00 08/16/2014 23:59:59 CLS Outpatient KAMRYN MATT MD [id number] 08/13/2014 09:07:00 08/13/2014 23:59:59 CLS Outpatient KAMRYN MATT MD [id number] 07/30/2014 10:40:00 07/30/2014 23:59:59 CLS Outpatient RENETTA CARDOZA APRN [id number] 07/16/2014 10:52:00 07/16/2014 23:59:59 CLS Outpatient KAMRYN MATT MD [id number] 07/10/2014 00:00:00 07/10/2014 23:59:59 CLS Outpatient KAMRYN MATT MD [id number] 06/09/2014 11:05:00 06/09/2014 23:59:59 CLS Outpatient JENNA LOVING MD [id number] 06/04/2014 08:06:00 06/04/2014 23:59:59 CLS Outpatient VICENTE BORJA DOKimberly Pope [id number] 05/22/2014 15:18:00 05/22/2014 23:59:59 CLS Outpatient FRANK FINLEY APRN [id number] 05/06/2014 13:10:00 05/06/2014 23:59:59 CLS Outpatient RENETTA CARDOZA APRN [id number] 04/21/2014 15:05:00 04/21/2014 23:59:59 CLS Outpatient RENETTA CARDOZA APRN [id number] 04/14/2014 08:24:00 04/14/2014 23:59:59 CLS Outpatient RENETTA CARDOZA APRN [id number] 03/25/2014 14:20:00 03/25/2014 23:59:59 CLS Outpatient RENETTA CARDOZA APRN [id number] 03/05/2014 09:03:00 03/05/2014 23:59:59 CLS Outpatient BRANDEN BORJA DO Toshia [id number] 12/04/2013 08:38:00 12/04/2013 23:59:59 CLS Outpatient VICENTE BORJA DOKimberly Pope [id number] 12/03/2013 14:44:00 12/03/2013 23:59:59 CLS Outpatient RENETTA CARDOZA APRN [id number] 10/21/2013 08:43:00 10/21/2013 23:59:59 CLS Outpatient RENETTA CARDOZA APRN [id number] 09/18/2013 09:35:00 09/18/2013 23:59:59 CLS Outpatient JONH MYRICK BRANDEN Pope [id number] 07/31/2013 12:23:00 07/31/2013 23:59:59 CLS Outpatient RENETTA CARDOZA APRN [id number] 01/23/2013 16:53:00 01/23/2013 23:59:59 CLS Outpatient [id number] 01/03/2013 16:14:00 01/03/2013 23:59:59 CLS Outpatient ERNESTINE ANDREW MD [id number] 11/07/2012 15:37:00 11/07/2012 23:59:59 CLS Outpatient [id number] 10/31/2012 16:45:00 10/31/2012 23:59:59 CLS Outpatient [id number] 10/02/2012 15:14:00 10/02/2012 23:59:59 CLS Outpatient [id number] 08/22/2012 18:20:00 08/22/2012 23:59:59 CLS Outpatient NANI MITZYRENETTA [id number] 07/10/2013 18:24:00 Document Registration [id number] 06/06/2013 15:31:00 Document Registration [id number] 05/31/2013 00:00:00 Document Registration [id number] 04/10/2013 09:37:00 Document Registration [id number] 03/28/2013 11:59:00 Document Registration [id number] 03/20/2013 17:17:00 Document Registration [id number] 09/28/2018 15:00:00 09/28/2018 23:59:59 CLS Outpatient NANI MITZYRENETTA [facility] [id number] 08/20/2018 09:25:00 Document Registration [id number] 04/02/2018 08:20:00 Document Registration [id number] 12/06/2014 12:18:26 ACT Document Registration [id number] 11/24/2016 10:06:00 Document Registration [id number] 11/20/2018 07:55:00 11/20/2018 10:16:00 DIS Outpatient LANG HUDSON DO [facility] ENDO SCREENING/HX POLYPS [id number] 11/16/2018 13:45:00 11/16/2018 14:37:00 DIS Outpatient LANG HUDSON DO [facility] PREOP COLONOSCOPY [id number] 08/20/2018 11:34:00 08/20/2018 23:59:59 CLS Outpatient ELIF MARIEE APRN [facility] RAD TESTICULAR SWELLING [id number] 07/24/2018 12:53:00 07/24/2018 23:59:59 CLS Outpatient KAMRYN MATT MD, FACC, FACP CCDS [facility] RAD I25.10 CAD [id number] 07/20/2018 10:53:00 07/20/2018 23:59:59 CLS Outpatient KAMRYN MATT MD, FACCP CCDS [facility] CARD I25.10 CAD [id number] 05/08/2018 09:27:00 05/08/2018 12:30:00 DIS Outpatient HUDSON LANG MYRICK [facility] ENDO BRIGHT RED BLOOD PER RECTUM/FAMILY HX COLON CA [id number] 05/03/2018 10:00:00 05/03/2018 10:41:00 DIS Outpatient LANG HUDSON DO [facility] PREOP COLONOSCOPY [id number] 04/03/2018 08:15:00 04/03/2018 23:59:59 CLS Preadmit CARMEN HOYOS APRN [facility] PUL J44.9 [id number] 01/18/2018 09:00:00 04/02/2018 00:01:00 DIS Outpatient CARMEN HOYOS APRN [facility] J44.9 [id number] 12/21/2017 07:06:00 12/21/2017 10:15:00 DIS Emergency KYRA ERAZO, CHYNA Pope [facility] ER CONGESTION,RUNNY NOSE,ABD PAIN [id number] 12/05/2017 09:00:00 12/17/2017 00:01:00 DIS Outpatient CARMEN HOYOS BAG FILLER MACHINE OPERATOR [facility] J44.9 [id number] 12/10/2017 09:20:00 12/10/2017 11:51:00 DIS Emergency ROMA STRICKLAND BAG FILLER MACHINE OPERATOR [facility] ER FLU LIKE SYMPTOMS [id number] 08/26/2017 18:00:00 08/27/2017 14:06:00 DIS Inpatient TAYLER SUBRAMANIAN MD [facility] ICU ACUTE COPD EXACERBATION [id number] 08/20/2017 08:39:00 08/20/2017 10:00:00 DIS Emergency WHITNEY THORNTON MD [facility] ER ABD PAIN, HOT/COLD, LUNG PAIN [id number] 08/09/2017 08:55:00 08/09/2017 11:47:00 DIS Outpatient LEYLA TORRES MD [facility] SDC LEFT KNEE CHONDROMYLASIA [id number] 08/07/2017 11:39:00 08/07/2017 13:02:00 DIS Outpatient LEYLA TORRES MD [facility] PREOP LEFT KNEE SCOPE [id number] 06/21/2017 06:05:00 06/21/2017 10:17:00 DIS Outpatient LEYLA TORRES MD [facility] TORN LATERAL MEDIAL MENISCUS [id number] 06/15/2017 09:12:00 06/15/2017 10:14:00 DIS Outpatient LEYLA TORRES MD [facility] PREOP TORN LATERAL MEDIAL MENICUS [id number] 05/25/2017 07:18:00 05/25/2017 23:59:59 CLS Outpatient SHAKA ERAZO FACCKAMRYN FACP CCDS [facility] CARD I25.10 [id number] 04/10/2017 10:40:00 04/10/2017 23:59:59 CLS Outpatient RENETTA CARDOZA [facility] RAD M25.561 PAIN IN RIGHT KNEE [id number] 03/31/2017 12:10:00 03/31/2017 12:53:00 DIS Emergency ROMA STRICKLAND BAG FILLER MACHINE OPERATOR [facility] ER R KNEE PAIN [id number] 12/26/2016 15:18:00 12/26/2016 23:59:59 CLS Outpatient CARMEN HOYOS APRN [facility] RT COPED,DYSPNEA,TOBACCO DEPENDENCE [id number] 10/16/2015 08:25:00 10/16/2015 10:27:00 DIS Outpatient LANG HUDSON DO [facility] LOOP RECORDER [id number] 10/14/2015 05:34:00 10/14/2015 23:59:59 CLS Outpatient LANG HUDSON DO [facility] PREOP LOOP RECORDER [id number] 12/01/2014 13:03:00 12/01/2014 23:59:59 CLS Outpatient RENETTA CARDOZA [facility] RAD FAM HX OF BREAST CA, LEFT, AREOLAR ABCESS [id number] 06/06/2014 13:50:00 09/04/2014 00:01:00 DIS Outpatient ELIS VICTOR [facility] CARD PALPITATIONS,SYNCOPE,CP [id number] 08/25/2014 09:48:00 08/25/2014 23:59:59 CLS Outpatient RENETTA CARDOZA [facility] RT SEIZURE DISORDER, [id number] 07/22/2014 06:44:00 07/22/2014 13:00:00 DIS Outpatient SHAKA ERAZO FACC, ALI FACP CCDS [facility] CATH CP,SYNCOPE,CAD [id number] 06/17/2014 08:56:00 06/17/2014 10:30:00 DIS Outpatient ELIS VICTOR [facility] CARD SYNCOPE,PALPITATIONS,CP,SOB [id number] 06/06/2014 10:00:00 06/06/2014 12:37:00 DIS Emergency ROMA STRICKLAND APRN [facility] ER LEFT SIDE TINGLING/WEAKNESS [id number] 12/09/2013 12:05:00 12/09/2013 23:59:59 CLS Outpatient SHAKA ERAZO FACC, KAMRYN FACP CCDS [facility] RAD CP,CAD,DYSPNEA [id number] 10/01/2013 08:09:00 10/01/2013 15:21:00 DIS Outpatient SHAKA ERAZO FACC, KAMRYN FACP CCDS [facility] CATH FATIGUE,SOB,ANGINA [id number] 09/30/2013 09:11:00 09/30/2013 23:59:59 CLS Outpatient KAMRYN MATT MD, FACC FACP CCDS [facility] CARD ANGINA,SOB,FATIGUE,HTN [id number] 07/28/2013 22:00:00 07/29/2013 10:14:00 DIS Inpatient [id number] 07/08/2013 18:06:00 07/08/2013 19:47:00 DIS Emergency EFRAIN TEJEDA MD [facility] ER HEADACHE [id number] 05/03/2013 21:12:00 05/04/2013 07:20:00 DIS Outpatient RENETTA CARDOZA [facility] SLEEP SNORING,CHOKING/GASPING, COPD,MORNING HEADACHE, [id number] 09/05/2014 10:00:00 Document Registration [id number] 08/31/2012 14:23:00 Document Registration [id number] 08/21/2012 20:32:00 Document Registration
[2019-03-19 07:53] LABS: HEMOGLOBIN 17.7 G/DL (13.3-17.7); MEAN PLATELET VOLUME 9.1 FL (7.4-10.4); RED CELL DISTRIBUTION WIDTH 14.9 % (10.0-14.5); WHITE BLOOD COUNT 5.2 10^3/uL (4.3-11.0)
[2019-03-19] MEDS ORDERED: ALBU0.63 IH (08:03)
[2019-03-19] MEDS: NS IV 1000 ML 1,000 ML IV SCH ×2 (08:03→18:46)
[2019-03-19] MEDS ORDERED: MIDAZOLAM 5 MG/5 ML (VERSED) VIAL ONE (08:10)
[2019-03-19] MEDS ORDERED: fentaNYL INJECTION 100 MCG/2 ML AMP ONE ×2 (08:10→10:00)
[2019-03-19 08:17] LABS: INR 0.9 (0.8-1.4); PROTHROMBIN TIME PATIENT 12.9 SEC (12.2-14.7)
[2019-03-19 08:21] LABS: ALANINE AMINOTRANSFERASE 16 U/L (0-55); ALBUMIN 4.2 GM/DL (3.2-4.5); ALKALINE PHOSPHATASE 145 U/L (40-136); BILIRUBIN,TOTAL 0.4 MG/DL (0.1-1.0); BUN/CREATININE RATIO 8; CALCIUM 10.1 MG/DL (8.5-10.1); CARBON DIOXIDE 27 MMOL/L (21-32); CHLORIDE 98 MMOL/L (98-107); CHOLESTEROL 188 MG/DL (< 200); CREATININE SERUM 0.96 MG/DL (0.60-1.30); GFR ESTIMATED > 60; GLUCOSE 116 MG/DL (70-105); HDL CHOLESTEROL 34 MG/DL (40-60); POTASSIUM 4.1 MMOL/L (3.6-5.0); SODIUM 139 MMOL/L (135-145); TOTAL PROTEIN 7.6 GM/DL (6.4-8.2); TRIGLYCERIDES 218 MG/DL (<150); VLDL CHOLESTEROL 44 MG/DL (5-40)
--- NOTE | 2019-03-19 09:04 | Cardiac Procedure Note-CS/ASA ---
Pre-Procedure Note Pre-Op Procedure Note H&P Reviewed The H&P was reviewed, patient examined and no changes noted. Date H&P Reviewed: March 19, 2019 Time H&P Reviewed: 09:04 Conscious Sedation Pre-Proced Time 09:04 ASA Score 3 For ASA 3 and 4: Consider anesthesia and medical clearance. Also, for patients with a history of failed moderate sedation consider anesthesia. Airway Lungs Heart ASA score ASA 1: a normal healthy patient ASA 2: a patient with a mild systemic disease (mid diabetes, controlled hypertension, obesity ASA 3: a patient with a severe systemic disease that limits activity (angina, COPD, prior Myocardial infarction) ASA 4: a patient with an incapacitating disease that is a constant threat to life (CHF, renal failure) ASA 5: a moribund patient not expected to survive 24 hrs. (ruptured aneurysm) ASA 6: a declared brain- patient whose organs are being harvested. For emergent operations, add the letter E after the classification Mallampati Classification Grade 2 Sedation Plan Analgesia, Amnesia, Plan communicated to team members, Discussed options with patient/fam, Discussed risks with patient/fam The patient is an appropriate candidate to undergo the planned procedure, sedation, and anesthesia. The patient immediately re-assessed prior to indication. KAMRYN MATT MD FACP FAC CCDS March 19, 2019 09:04
[2019-03-19] MEDS ORDERED: HEParin 1000 UNIT/ML (10ML VIAL) FOR BOLUS ONE (09:20)
[2019-03-19] MEDS ORDERED: CLOPIDOGREL 300 MG (PLAVIX) TABLET PO ONE (09:56)
[2019-03-19] MEDS ORDERED: ASPIRIN 81 MG CHEW (CHILDREN'S ASA) ONE (10:01)
--- NOTE | 2019-03-19 11:08 | OPERATIVE REPORT ---
DATE OF SERVICE: 03/19/2019 PERIPHERAL ANGIOGRAPHY AND INTERVENTION REPORT INDICATIONS: The patient is a 58-year-old man who has multiple peripheral arterial disease risk factors. He has been having increasing leg claudication, more on the right side. Currently, he experiences leg claudication with walking less than half a block. Abdominal aortic and peripheral angiography was recommended with possible ad hoc peripheral intervention, if necessary. Informed consent was obtained. PROCEDURE IN DETAIL: He was brought to the cardiac catheterization laboratory in a fasting state. The left groin was prepared and draped in the usual sterile fashion. Lidocaine 1% was used for local anesthesia. Modified Seldinger technique was used to advance a 5-[place] sheath into the left femoral artery. A pigtail catheter was advanced to the level of L1 and abdominal aortic angiography was performed. The catheter was then pulled back to just above the aortoiliac bifurcation and bilateral leg artery angiography was performed with runoff down to the level of the ankles. Following this, we removed the pigtail catheter and used a crossover catheter to advance a Storq wire into the right iliofemoral system and the wire was advanced to the right popliteal artery. Over this wire, we advanced a 5-[place] straight catheter down to the level of the distal right superficial femoral artery. The wire was removed. A pullback was then performed. This indicated that the lesion indicated and initial angiography was hemodynamically significant. This lesion was in the mid to distal right superficial femoral artery and pressure gradient across that was approximately 80 mmHg, on average. We then performed selective angiography of the right superficial femoral artery with the tip of this catheter placed in the proximal right superficial femoral artery. This delineated the entire extent of the mid and distal superficial femoral and the popliteal on the right side. We then advanced a 0.035 wire and removed the straight catheter and the sheath and advanced a 6-[place] 45 cm sheath with the tip of the sheath into the proximal portion of the right superficial femoral. We then used a Command wire to cross the lesion and we were able to advance a straight catheter into the distal portion of the right superficial femoral. We removed the Command wire and advanced a 0.035 inch Storq wire with the tip placed in the distal portion of the right leg arterial circulation. We removed the catheter and we were then able to advance an Innova 60 x 130 stent to the lesion. This was carefully positioned under angiographic guidance. The stent was deployed and the stent catheter was removed. Post-dilation was carried out with [place] 6 x100 x 135 mm balloon. The balloon was removed. Subsequent angiography reveals 0% residual stenosis at the previous site of 90% stenosis in the mid to distal right superficial femoral artery. Distal flow was normal. Proximal artery has minimal intimal disruption, but no significant propagating dissection. Flow throughout the vessel was normal. The angioplasty equipment was removed. The long sheath was exchanged over a wire for a short 6-[place] sheath. Angiography of the left femoral artery was performed through the sheath. Mynx was used to achieve hemostasis. The patient received 8000 units of intravenous heparin during the interventional procedure. He tolerated the procedure well. ABDOMINAL AORTIC ANGIOGRAPHY: Abdominal aortic angiography does not indicate any significant abdominal aortic aneurysm or dissection. Renal arteries are seen and do not exhibit any significant disease on either side. The inferior mesenteric artery does not exhibit significant disease. The aortoiliac bifurcation does not exhibit significant disease. BILATERAL LEG ARTERY ANGIOGRAPHY: The right common iliac, external iliac, internal iliac, common femoral, deep femoral arteries are intact and free of significant disease. The right superficial femoral artery had approximately 90% stenosis with haziness. The hemodynamic significance of this was confirmed by a pullback performed across this lesion, which indicated a pressure gradient of approximately 80 mmHg. The popliteal artery on the right side is intact. The anterior tibial, posterior tibial and peroneal arteries are intact on the right side. The right superficial femoral artery was stented with Innova 7 x 60 stent, which reduced the lesion to 0% residual. On the left side, the common iliac, external iliac, internal iliac, superficial femoral and deep femoral arteries are intact. The left superficial femoral artery does have approximately 60% mid to distal vessel stenosis, which is quite focal. The left popliteal artery is intact. The right anterior tibial, posterior tibial and peroneal arteries are intact. CONCLUSIONS: Peripheral arterial disease primarily consisting of 90% stenosis of the right superficial femoral artery to which successful stenting was carried out with Innova 7 x 60 mm stent. The left superficial femoral artery has approximately 60% mid to distal vessel stenosis. Job ID: [id number] DocumentID: [id number] Dictated Date: 03/19/2019 10:27:42 Microfilm Duplicating Unit Supervisor Date: 03/19/2019 11:08:16 Dictated By: KAMRYN MATT MD, MA, FACP, FACC,
[2019-03-19] MEDS ORDERED: NS IV 1000 ML 1,000 ML IV SCH (11:58)
[2019-03-19] MEDS ORDERED: PATIENT MAY USE OWN MEDS, ALL PO SCH (12:00)
[2019-03-19] MEDS ORDERED: ACETAMINOPHEN 325 MG TABLET PO PRN (12:00)
[2019-03-19] MEDS: PHENYTOIN 100 MG (DILANTIN) CAP PO SCH (20:52)
[2019-03-19] MEDS ORDERED: NON-FORMULARY MEDICATION 1 EA EA (Phenytoin Sodium Extended 200 MG) PO SCH (21:00)
[2019-03-19] MEDS ORDERED: ATORVASTATIN 80 MG (LIPITOR) TABLET PO SCH (21:00)
[2019-03-20] VITALS: BP 123/70
[2019-03-20 02:24] VITALS: BP 158/68
--- NOTE | 2019-03-20 02:24 | NUR ---
REPORT RECEIVED FROM CECILIA ANTONIO. PT TO ROOM 427 WITH ALL BELONGINGS. DRESSING INTACT WITH SMALL AMT DRIED DRAINAGE THAT HEALTH CARE ANALYST STATES HAS BEEN THERE SINCE ARRIVAL TO ICU. 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 WILL CONTINUE TO MONITOR PT.
--- NOTE | 2019-03-20 02:30 | NUR ---
REPORT GIVEN TO CECILIA LANDRY. PT TRANSFERRED TO ROOM 427 WITH ALL BELONGINGS AT THIS TIME.
[2019-03-20 04:33] VITALS: BP 148/74
[2019-03-20 05:13] LABS: HEMOGLOBIN 16.8 G/DL (13.3-17.7); MEAN PLATELET VOLUME 9.3 FL (7.4-10.4); RED CELL DISTRIBUTION WIDTH 14.5 % (10.0-14.5); WHITE BLOOD COUNT 5.5 10^3/uL (4.3-11.0)
[2019-03-20 05:37] LABS: BUN/CREATININE RATIO 12; CALCIUM 9.3 MG/DL (8.5-10.1); CARBON DIOXIDE 24 MMOL/L (21-32); CHLORIDE 101 MMOL/L (98-107); CREATININE SERUM 0.92 MG/DL (0.60-1.30); GFR ESTIMATED > 60; GLUCOSE 122 MG/DL (70-105); POTASSIUM 4.1 MMOL/L (3.6-5.0); SODIUM 137 MMOL/L (135-145)
[2019-03-20 08:00] VITALS: BP 154/76
--- NOTE | 2019-03-20 08:00 | NUR ---
PT UP AMB IN ROOM PT ASKED WHEN DR MATT WOULD BE TO FLOOR TO DC HIM HOME -- THIS R ADVISED HIM PETER GRANADOS SET THEIR OWN TIME FOR ROUNDING ON PT AND IT VARIED -- PT VOICED HE WAS GOING DOWN STAIRS TO AMB AND TO GO TO HIS CAR AND SMOKE -- THIS RN ADVISED HIM THAT THIS IS A NON SMOKING FACILITY AND THAT SMOKING WAS NOT ALLOWED ON THE PROPERTY -- PT VOICED HE WAS AWARE AND WOULD SMOKE IF HE WANTED -- PT LEFT FLOOR WITH PER ELEVATOR
[2019-03-20] MEDS ORDERED: NON-FORMULARY MEDICATION 1 EA EA (Hydrochlorothiazide 25 MG) PO SCH (09:00)
[2019-03-20] MEDS ORDERED: NON-FORMULARY MEDICATION 1 EA EA (Metoprolol Succinate (Toprol Xl) 100 MG) PO SCH (09:00)
[2019-03-20] MEDS ORDERED: OMEPRAZOLE 20 MG (PriLOSEC) CAP NON-FORMULARY PO SCH (09:00)
[2019-03-20] MEDS ORDERED: PANTOPRAZOLE 20 MG TABLET (PROTONIX) PO SCH (09:00)
[2019-03-20] MEDS ORDERED: CLOPIDOGREL 75 MG (PLAVIX) TABLET PO SCH (09:00)
[2019-03-20] MEDS ORDERED: meTOprolol SUCCINATE 100 MG (TOPROL XL) TAB PO SCH (09:00)
[2019-03-20] MEDS ORDERED: HYDROCHLOROTHIAZIDE 25 MG (HCTZ) TAB PO SCH (09:00)
[2019-03-20] MEDS ORDERED: ASPIRIN 81 MG CHEW (CHILDREN'S ASA) PO SCH (09:00)
[2019-03-20] MEDS: PHENYTOIN 100 MG (DILANTIN) CAP PO SCH (09:14)
--- NOTE | 2019-03-20 09:43 | Progress Note-Cardiology ---
Cardiology SOAP Progress Note Subjective: Has been up walking in the halls and outside. Denies any c/o leg discomfort. No c/o CP or palpitations. Chronic mild exertional dyspnea which is unchanged. Wants to go home. Objective: I&O/Vital Signs 03/20/19 03/20/19 03/20/19 03/20/19 07:00 08:00 08:00 10:45 Temp 97.9 Pulse 73 90 90 Resp 18 18 B/P (MAP) 154/76 (102) 154/76 Pulse Ox 93 93 O2 Delivery Room Air Room Air Room Air 03/20/19 00:00 Intake Total 780 ml Output Total 1450 ml Balance -670 ml Weight (Pounds): 260 Weight (Ounces): 0.0 Weight (Calculated Kilograms): 117.675700 Side: left Groin site without hematoma: Yes Condition: DP/PT pulses palpable, extremity w/d/p Bruising: mild bruising Constitutional: AAO x 3, well-developed, well-nourished Respiratory: No accessory muscle use, No respiratory distress; chest expansion is symmetric, chest is bilaterally symmetric, rhonchi (scattered; prolonged expiratory phase) Cardiovascular: regular rate-rhythm; No JVD Gastrointestional: No tender; soft, round, audible bowel sounds Extremities: no lower extremity edema bilateral Neurologic/Psychiatric: grossly intact, power is 5/5 both on sides Skin: No rash, No ulcerations Results/Procedures: Labs Laboratory Tests 03/20/19 05:00: White Blood Count 5.5, Red Blood Count 5.72, Hemoglobin 16.8, Hematocrit 50, Mean Corpuscular Volume 87, Mean Corpuscular Hemoglobin 29, Mean Corpuscular Hemoglobin Concent 34, Red Cell Distribution Width 14.5, Platelet Count 182, Mean Platelet Volume 9.3, Sodium Level 137, Potassium Level 4.1, Chloride Level 101, Carbon Dioxide Level 24, Anion Gap 12, Blood Urea Nitrogen 11, Creatinine 0.92, Estimat Glomerular Filtration Rate > 60, BUN/Creatinine Ratio 12, Glucose Level 122H, Calcium Level 9.3 Microbiology 03/19/19 MRSA Screen - Final, Complete MRSA not isolated Laboratory Tests 03/19/19 07:42 03/19/19 07:45 03/20/19 05:00 Procedures S/P peripheral angiogram with successful intervention. Please refer to operative note per Dr. Maradiaga of 03-19-19 A/P: Assessment: Peripheral arterial disease. Peripheral angio of 03/19/19: 90% stenosis of the right superficial femoral artery to which successful stenting was carried out with Innova 7 x 60 mm stent. The left superficial femoral artery has approximately 60% mid to distal vessel stenosis HTN Echocardiogram of Jun 2018 showed LVEF 55-60%. PASP 30-35 mmHg. Trivial TR Near-syncope or seizure disorder. Extensive cardiac w/u so far has not shown any cardiac reason for syncope. He has had an EP eval with Dr Marques of the EP service in [place], [place], and has not been found to have any signficant rhythm issues. He has not had any seizures in a number of years Tilt table study negative for neurocardiogenic syncope Moderate CAD consisting of approx 50% mid-RCA stenosis, unchanged on successive cardiac caths of 2012. Normal LVEF and mod elevation of LVEDP on cath of 07-22-14 MPI of 05/25/18: No evidence of ischemia or infarction LVEF 50% Seizure disorder for which he has followed with his neurologist 80-90% L vertebral artery stenosis and no significant carotid artery stenosis on CTA neck of 01/15/15 ordered by his neurologist. Carotid u/s of July 2018 showed less than 40% R ICA and approx 50% L ICA stenosis Segmental pressures of Jun 2018 showed no signif obstructive PAD of the legs COPD HLP, consisting of severe hypertriglyceridemia Chronic tobacco use - cessation advised Sleep apnea treated with CPAP S/P implantable loop recorder implantation on 07-22-14. Episode of what appears to be a tachyarrhythmia on 09/25/14 for which a referral has been made to the EP Service in [place], [place]. He has had an EP eval with Dr Marques of the EP service in [place], [place], and has not been found to have any significant rhythm issues ECG of 01/08/18: NSR w/o evidence of ischemia or infarction Erectile dysfunction Intermittent non-compliance with medications Plan: S/P peripheral angiogram with successful intervention Advised compliance with medications Advised immediate and complete smoking cessation F/U in 2 weeks OK to discharge home today Physician Assessment Physician Assessment No cp or palp or syncope or shortness of breath No groin discomfort Lungs: fair to good bilat air entry; prolonged exp phase (chronic) Cor: reg Ext: no c/c/e A&R * As documented in our note above that I updated (italics) and as noted below * I had a long and detailed discussion with him regarding findings on peripheral angio and the interventions undertaken * I discussed the importance of risk factor mod. Once again, advised him to quit smoking immediately and completely * I discussed the importance of med compliance and outpt f/u * I answered his CV-related questions ELIS VICTOR [facility] March 20, 2019 09:43 KAMRYN MARADIAGA MD FACP FAC CCDS March 20, 2019 17:10
[2019-03-20] MEDS ORDERED: CLOP75TA28 PO (09:45)
--- NOTE | 2019-03-20 09:46 | Discharge Inst-Cardiology ---
Discharge Inst-Cardiac Discharge Medications New Medications: Clopidogrel Bisulfate (Clopidogrel) 75 Mg Tablet 75 MG PO DAILY, #30 TAB 5 Refills Continued Medications: Albuterol Sulfate (Albuterol Sulfate) 0.63 Mg/3 Ml Vial.neb 1 MG IH QID, INHALER Aspirin (Aspirin) 81 Mg Tab.chew 81 MG PO DAILY, TAB Atorvastatin Calcium (Atorvastatin Calcium) 80 Mg Tablet 80 MG PO HS, TAB Hydrochlorothiazide (Hydrochlorothiazide) 25 Mg Tablet 25 MG PO DAILY, TAB Metoprolol Succinate (Toprol Xl) 100 Mg Tab.er.24h 100 MG PO DAILY, TAB Omeprazole (Omeprazole) 20 Mg Capsule.dr 20 MG PO DAILY, CAP Phenytoin Sodium Extended (Phenytoin Sodium Extended) 100 Mg Capsule 200 MG PO BID, CAP TAKE 2 (100MG) TABS Umeclidinium [place] (Incruse Ellipta) 62.5 Mcg Blst.w.dev 62.5 MCG IH DAILY New, Converted or Re-Newed RX: Transmitted to Pharmacy Patient Instructions Patient Instructions: Please schedule follow up appointment to see Dr. Maradiaga in 2 weeks ELIS VICTOR March 20, 2019 09:46
[2019-03-20 10:45] VITALS: BP 154/76
[2019-03-21] MEDS ORDERED: UMECLIDINIUM BROMIDE (INCRUSE ELLIPTA) 7'S IH SCH (08:00)
== END 2019-03-20 10:50 | disposition home or self-care (01) ==
LOC: CATH 07:13 → ICU 10:30 → 4TH 03-20 03:00 → CATH 03-20 10:50
PROVIDERS: ATTEND Internal Medicine Cardiovascular Disease
DX: I70.203 Unspecified atherosclerosis of native arteries of extremities, bilateral legs (principal); I25.10 Atherosclerotic heart disease of native coronary artery without angina pectoris; I77.9 Disorder of arteries and arterioles, unspecified; G47.30 Sleep apnea, unspecified; E78.5 Hyperlipidemia, unspecified; F12.10 Cannabis abuse, uncomplicated; I65.29 Occlusion and stenosis of unspecified carotid artery; F17.210 Nicotine dependence, cigarettes, uncomplicated; I10 Essential (primary) hypertension; Z91.19 Patient's noncompliance with other medical treatment and regimen; E78.1 Pure hyperglyceridemia; J44.9 Chronic obstructive pulmonary disease, unspecified; N52.9 Male erectile dysfunction, unspecified; Z79.899 Other long term (current) drug therapy; Z79.82 Long term (current) use of aspirin
CPT/HCPCS: 36415; 37226; 75625; 75716; 80048; 80053; 80061; 85027; 85610; 85730; 87081; 93005

== ENCOUNTER 2019-04-16 06:41 | Day surgery (SDC) | payer MEDICARE ==
[~2019-04-16] VITALS: Ht 180.3 cm; Wt 115.7 kg
[2019-04-16] VITALS (13 sets, daily range): BP systolic 34–153; BP diastolic 61–78
[~2019-04-16 06:41] MED LIST changes: +ALBU0.63 IH; +CLOP75TA28 PO
[2019-04-16] MEDS ORDERED: LIDOCAINE 1% INJ 20 ML 20 ML VIAL ONE ×2 (06:45→09:22)
[2019-04-16] MEDS ORDERED: HEParin (CATH LAB) 2,000 ML IV ONE (06:46)
[2019-04-16] MEDS ORDERED: NS IV 1000 ML 1,000 ML ONE (06:46)
[2019-04-16] MEDS ORDERED: NS IV 1000 ML 1,000 ML IV SCH (07:00)
[2019-04-16 07:25] LABS: HEMOGLOBIN 17.1 G/DL (13.3-17.7); MEAN PLATELET VOLUME 9.1 FL (7.4-10.4); RED CELL DISTRIBUTION WIDTH 14.9 % (10.0-14.5); WHITE BLOOD COUNT 5.2 10^3/uL (4.3-11.0)
[2019-04-16 07:35] LABS: INR 0.9 (0.8-1.4); PROTHROMBIN TIME PATIENT 12.7 SEC (12.2-14.7)
[2019-04-16 07:41] LABS: ALANINE AMINOTRANSFERASE 16 U/L (0-55); ALBUMIN 4.1 GM/DL (3.2-4.5); ALKALINE PHOSPHATASE 166 U/L (40-136); BILIRUBIN,TOTAL 0.3 MG/DL (0.1-1.0); BUN/CREATININE RATIO 14; CALCIUM 9.8 MG/DL (8.5-10.1); CARBON DIOXIDE 28 MMOL/L (21-32); CHLORIDE 97 MMOL/L (98-107); CHOLESTEROL 215 MG/DL (< 200); CREATININE SERUM 1.01 MG/DL (0.60-1.30); GFR ESTIMATED > 60; GLUCOSE 131 MG/DL (70-105); HDL CHOLESTEROL 33 MG/DL (40-60); POTASSIUM 3.9 MMOL/L (3.6-5.0); SODIUM 137 MMOL/L (135-145); TOTAL PROTEIN 7.6 GM/DL (6.4-8.2); TRIGLYCERIDES 406 MG/DL (<150)
[2019-04-16] MEDS ORDERED: MIDAZOLAM 5 MG/5 ML (VERSED) VIAL ONE (08:47)
[2019-04-16] MEDS ORDERED: fentaNYL INJECTION 100 MCG/2 ML AMP ONE (08:47)
--- NOTE | 2019-04-16 09:19 | Cardiac Procedure Note-CS/ASA ---
Pre-Procedure Note Pre-Op Procedure Note H&P Reviewed The H&P was reviewed, patient examined and no changes noted. Date H&P Reviewed: Apr 16, 2019 Time H&P Reviewed: 09:18 Conscious Sedation Pre-Proced Time 09:18 ASA Score 3 For ASA 3 and 4: Consider anesthesia and medical clearance. Also, for patients with a history of failed moderate sedation consider anesthesia. Airway Lungs Heart ASA score ASA 1: a normal healthy patient ASA 2: a patient with a mild systemic disease (mid diabetes, controlled hypertension, obesity ASA 3: a patient with a severe systemic disease that limits activity (angina, COPD, prior Myocardial infarction) ASA 4: a patient with an incapacitating disease that is a constant threat to life (CHF, renal failure) ASA 5: a moribund patient not expected to survive 24 hrs. (ruptured aneurysm) ASA 6: a declared brain- patient whose organs are being harvested. For emergent operations, add the letter E after the classification Mallampati Classification Grade 2 Sedation Plan Analgesia, Amnesia, Plan communicated to team members, Discussed options with patient/fam, Discussed risks with patient/fam The patient is an appropriate candidate to undergo the planned procedure, sedation, and anesthesia. The patient immediately re-assessed prior to indication. KAMRYN MATT MD FACP FAC CCDS Apr 16, 2019 09:19
[2019-04-16] MEDS ORDERED: HEParin 1000 UNIT/ML (10ML VIAL) FOR BOLUS ONE (09:22)
[2019-04-16] MEDS ORDERED: NITRO DRIP 25000 MCG/D5W 0 ML IV ONE (09:23)
[2019-04-16] MEDS ORDERED: PATIENT MAY USE OWN MEDS, ALL PO SCH (10:15)
[2019-04-16] MEDS ORDERED: ACETAMINOPHEN 325 MG TABLET PO PRN (10:15)
--- NOTE | 2019-04-16 10:40 | NUR ---
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 Patient Rights given to patient in the handbook. LELE GAMBLE verbalizes understanding that [facility] is not responsible for the loss or damage to any personal effects or valuables that are kept in the patients posession during their hospitalization. The following Patient Care Plans were discussed with the PT: Discharge Planning, PAIN,HIGH RISK BLEEDING, and FLUID VOLUME DEFICIT. LELE GAMBLE verbalizes understanding of Interdisciplinary Patient Education. Patient and family were informed about the Rapid Response Team and its purpose.
[2019-04-16] MEDS: NS IV 1000 ML 1,000 ML IV SCH ×2 (11:12→14:46)
--- NOTE | 2019-04-16 12:42 | OPERATIVE REPORT ---
DATE OF SERVICE: 04/16/2019 PERIPHERAL ANGIOGRAPHY AND INTERVENTION REPORT The patient is a 58-year-old man with multiple risk factors for peripheral arterial disease. He is known to have peripheral arterial disease. He has had stenting of the right superficial femoral artery in February 2019. His right leg claudication has resolved, but he continues to have significant (half block) leg claudication. Peripheral angiography was carried out today. He is known to have a 60% distal stenosis of the left superficial femoral artery. That was felt to be the potential culprit lesion. We obtained informed consent for peripheral angiography and intervention. DESCRIPTION OF PROCEDURE: He was brought to the cardiac catheterization laboratory in a fasting state. Right groin was prepared and draped in the usual sterile fashion. Lidocaine 1% was used for local anesthesia. Modified Seldinger technique was used to advance a 5-Swedish sheath in right femoral artery. We used a crossover catheter to engage the contralateral iliac artery (left common iliac artery). We advanced a Storq wire into the left superficial femoral artery. The crossover catheter was removed and we advanced a straight catheter into the contralateral left superficial femoral artery (third order artery). Selective angiography of the left superficial femoral artery was then performed. This showed moderate diffuse disease and a focal 60% stenosis in the distal left superficial femoral artery. We advanced a straight catheter across this lesion over a wire and performed a pullback. This demonstrated a pressure gradient of approximately 20 to 30 mm across this lesion. We, therefore, decided to proceed with percutaneous intervention to this lesion. We placed a wire across the lesion. We removed the straight catheter and the sheath. We advanced a 6-Swedish sheath and the tip of this sheath was placed in the left superficial femoral artery. We advanced an Absolute Pro 6.0 x 40 mm stent. This was carefully positioned to cover the distal lesion. The stent was deployed and we then used a 6.0 x 20 mm balloon to carry out ballooning within the stented segment. Subsequent angiography revealed 0% residual stenosis at the previous site of 60% to 70% stenosis. We then performed another pullback across this stented segment and found that the gradient across this lesion had resolved. We then pulled the long sheath back into the right common iliac artery (ipsilateral iliac artery) and performed angiography with runoff down to the level of the right leg. This confirmed that the previously placed stent in the distal right superficial femoral artery was patent and without significant stenosis. We then proceeded with a 5-Swedish pigtail catheter to carry out angiography of both the iliac arteries. This showed that the aortoiliac bifurcation was intact and there was not any significant obstructive disease of the iliac arteries or the common femoral arteries. CONCLUSIONS: 60 to 70% hemodynamically significant stenosis of the distal left superficial femoral artery, which was treated with successful stenting with Absolute Pro 6.0 x 40 mm stent. A previously placed (February 2019) Innova 7.0 x 60 mm stent is widely patent in the distal right superficial femoral artery. There is 3-vessel runoff in both legs. There is moderate diffuse disease of the proximal and mid left superficial femoral artery. DISCUSSION AND RECOMMENDATIONS: Once again, risk factor modification has been discussed with him. Avoidance of tobacco use has been advised. Compliance with his medical regimen has been advised. Job ID: [id number] DocumentID: [id number] Dictated Date: 04/16/2019 10:10:57 Php Software Engineer Date: 04/16/2019 12:41:13 Dictated By: KAMRYN MATT MD, MA, FACP, FACC, MTDD
[2019-04-16] MEDS ORDERED: ALBUTEROL SULFATE IH SCH (13:00)
[2019-04-16] MEDS: RT-ALBUTEROL SULF 2.5 MG/3 ML PRE-MIX VIAL INH SCH ×2 (14:00→18:36)
[2019-04-16] MEDS: PHENYTOIN 100 MG (DILANTIN) CAP PO SCH (20:32)
[2019-04-16] MEDS ORDERED: NON-FORMULARY MEDICATION 1 EA EA (Phenytoin Sodium Extended 200 MG) PO SCH (21:00)
[2019-04-16] MEDS ORDERED: ATORVASTATIN 80 MG (LIPITOR) TABLET PO SCH (21:00)
[2019-04-17] VITALS: BP 144/75
[2019-04-17 03:32] LABS: HEMOGLOBIN 15.4 G/DL (13.3-17.7); MEAN PLATELET VOLUME 9.3 FL (7.4-10.4); RED CELL DISTRIBUTION WIDTH 14.6 % (10.0-14.5); WHITE BLOOD COUNT 4.6 10^3/uL (4.3-11.0)
[2019-04-17 03:49] LABS: BUN/CREATININE RATIO 14; CARBON DIOXIDE 26 MMOL/L (21-32); CHLORIDE 98 MMOL/L (98-107); CREATININE SERUM 0.86 MG/DL (0.60-1.30); GFR ESTIMATED > 60; GLUCOSE 133 MG/DL (70-105); POTASSIUM 4.1 MMOL/L (3.6-5.0); SODIUM 134 MMOL/L (135-145)
[2019-04-17 04:00] VITALS: BP 146/75
[2019-04-17] MEDS ORDERED: PANTOPRAZOLE 20 MG TABLET (PROTONIX) PO SCH (07:00)
[2019-04-17] MEDS: RT-ALBUTEROL SULF 2.5 MG/3 ML PRE-MIX VIAL INH SCH ×2 (07:27→10:30)
[2019-04-17 08:00] VITALS: BP 142/66
[2019-04-17] MEDS ORDERED: UMECLIDINIUM BROMIDE (INCRUSE ELLIPTA) 7'S IH SCH ×2 (08:00→09:00)
--- NOTE | 2019-04-17 08:00 | Progress Note-Cardiology ---
Cardiology SO Progress Note Objective: I&O/Vital Signs Weight (Pounds): 255 Weight (Ounces): 0.0 Weight (Calculated Kilograms): 115.922445 Results/Procedures: Labs Microbiology 04/16/19 MRSA Screen - Final, Complete MRSA not isolated A/P: Assessment: Peripheral arterial disease. Peripheral angio of 03/19/19: 90% stenosis of the right superficial femoral artery to which successful stenting was carried out w ith Innova 7 x 60 mm stent. Peripheral angiogram of April 16, 2019 showed 60 to 70% hemodynamically signif icant stenosis of the distal left superficial femoral artery, which was treated with successful stenting with Absolute Pro 6.0 x 40 mm stent. A previously placed (February 2019) Innova 7.0 x 60 mm stent is widely patent in the distal right superficial femoral artery. There is 3-vessel runoff in both legs. There is moderate diffuse disease of the proximal and mid left superficial femoral artery. HTN Echocardiogram of Jun 2018 showed LVEF 55-60%. PASP 30-35 mmHg. Trivial TR Near-syncope or seizure disorder. Extensive cardiac w/u so far has not shown any cardiac reason for syncope. He has had an EP eval with Dr Marques of the EP service in [place], [place], and has not been found to have any signficant rhythm issues. He has not had any seizures in a number of years Tilt table study negative for neurocardiogenic syncope Moderate CAD consisting of approx 50% mid-RCA stenosis, unchanged on successive cardiac caths of 2012. Normal LVEF and mod elevation of LVEDP on cath of 07-22-14 MPI of 05/25/18: No evidence of ischemia or infarction LVEF 50% Seizure disorder for which he has followed with his neurologist 80-90% L vertebral artery stenosis and no significant carotid artery stenosis on CTA neck of 01/15/15 ordered by his neurologist. Carotid u/s of July 2018 showed less than 40% R ICA and approx 50% L ICA stenosis COPD HLP, consisting of severe hypertriglyceridemia Chronic tobacco use - cessation advised Sleep apnea treated with CPAP S/P implantable loop recorder implantation on 07-22-14. Episode of what appears to be a tachyarrhythmia on 09/25/14 for which a referral has been made to the EP Service in [place], [place]. He has had an EP eval with Dr Marques of the EP service in [place], [place], and has not been found to have any significant rhythm issues ECG of 01/08/18: NSR w/o evidence of ischemia or infarction Erectile dysfunction Intermittent non-compliance with medications ELIS VICTOR Apr 17, 2019 08:00
[2019-04-17] MEDS ORDERED: CLOPIDOGREL 75 MG (PLAVIX) TABLET PO SCH ×2 (09:00)
[2019-04-17] MEDS ORDERED: meTOprolol SUCCINATE 100 MG (TOPROL XL) TAB PO SCH (09:00)
[2019-04-17] MEDS ORDERED: HYDROCHLOROTHIAZIDE 25 MG (HCTZ) TAB PO SCH (09:00)
[2019-04-17] MEDS ORDERED: NON-FORMULARY MEDICATION 1 EA EA (Hydrochlorothiazide 25 MG) PO SCH (09:00)
[2019-04-17] MEDS ORDERED: NON-FORMULARY MEDICATION 1 EA EA (Metoprolol Succinate (Toprol Xl) 100 MG) PO SCH (09:00)
[2019-04-17] MEDS ORDERED: ASPIRIN 81 MG CHEW (CHILDREN'S ASA) PO SCH (09:00)
[2019-04-17] MEDS ORDERED: OMEPRAZOLE 20 MG (PriLOSEC) CAP NON-FORMULARY PO SCH (09:00)
[2019-04-17] MEDS: PHENYTOIN 100 MG (DILANTIN) CAP PO SCH (09:15)
--- NOTE | 2019-04-17 12:49 | Progress Note-Cardiology ---
Cardiology SOAP Progress Note Subjective: No cp or palp or syncope. Feels better and wishes to go home. No significant groin or leg discomfort Objective: I&O/Vital Signs 04/17/19 04/17/19 04/17/19 04/17/19 01:00 04:00 04:00 07:00 Temp 97.5 Pulse 80 80 86 Resp 18 B/P (MAP) 146/75 (98) Pulse Ox 94 94 O2 Delivery Room Air Room Air 04/17/19 04/17/19 04/17/19 04/17/19 07:27 07:33 08:00 09:00 Pulse 84 86 B/P (MAP) 142/66 (91) Pulse Ox 90 91 O2 Delivery Room Air Room Air Room Air 04/17/19 00:00 Intake Total 1940 ml Output Total 400 ml Balance 1540 ml Weight (Pounds): 255 Weight (Ounces): 0.0 Weight (Calculated Kilograms): 115.662542 Groin site without hematoma: No Condition: DP/PT pulses palpable Bruising: mild bruising Constitutional: AAO x 3, well-developed, well-nourished Respiratory: No accessory muscle use; lungs clear to percussion, lungs clear to auscultation Cardiovascular: regular rate-rhythm, S1 and S2, systolic murmur (soft JHONATHAN at card base) Gastrointestional: No tender; soft; No guarding, No rebound; audible bowel sounds Extremities: No clubbing, No cyanosis, No significant edema Neurologic/Psychiatric: oriented x 3, grossly intact, power is 5/5 both on sides Skin: No rash on exposed areas, No ulcerations on exposed areas Results/Procedures: Labs Laboratory Tests 04/17/19 03:25: White Blood Count 4.6, Red Blood Count 5.30, Hemoglobin 15.4, Hematocrit 48, Mean Corpuscular Volume 90, Mean Corpuscular Hemoglobin 29, Mean Corpuscular Hemoglobin Concent 32, Red Cell Distribution Width 14.6H, Platelet Count 155, Mean Platelet Volume 9.3, Sodium Level 134L, Potassium Level 4.1, Chloride Level 98, Carbon Dioxide Level 26, Anion Gap 10, Blood Urea Nitrogen 12, Creatinine 0.86, Estimat Glomerular Filtration Rate > 60, BUN/Creatinine Ratio 14, Glucose Level 133H, Calcium Level 9.0 Laboratory Tests 04/16/19 07:15 04/17/19 03:25 A/P: Assessment: Peripheral arterial disease. Peripheral angio of 03/19/19: 90% stenosis of the right superficial femoral artery to which successful stenting was carried out with Innova 7 x 60 mm stent. Peripheral angiogram of April 16, 2019 showed 60 to 70% hemodynamically significant stenosis of the distal left superficial femoral artery, which was treated with successful stenting with Absolute Pro 6.0 x 40 mm stent. A previously placed (February 2019) Innova 7.0 x 60 mm stent is widely patent in the distal right superficial femoral artery. There is 3-vessel runoff in both legs. There is moderate diffuse disease of the proximal and mid left superficial femoral artery. HTN Echocardiogram of Jun 2018 showed LVEF 55-60%. PASP 30-35 mmHg. Trivial TR Near-syncope or seizure disorder. Extensive cardiac w/u so far has not shown any cardiac reason for syncope. He has had an EP eval with Dr Marques of the EP service in [place], [place], and has not been found to have any signficant rhythm issues. He has not had any seizures in a number of years Tilt table study negative for neurocardiogenic syncope Moderate CAD consisting of approx 50% mid-RCA stenosis, unchanged on successive cardiac caths of 2012. Normal LVEF and mod elevation of LVEDP on cath of 07-22-14 MPI of 05/25/18: No evidence of ischemia or infarction LVEF 50% Seizure disorder for which he has followed with his neurologist 80-90% L vertebral artery stenosis and no significant carotid artery stenosis on CTA neck of 01/15/15 ordered by his neurologist. Carotid u/s of July 2018 showed less than 40% R ICA and approx 50% L ICA stenosis COPD HLP, consisting of severe hypertriglyceridemia Chronic tobacco use - cessation advised Sleep apnea treated with CPAP S/P implantable loop recorder implantation on 07-22-14. Episode of what appears to be a tachyarrhythmia on 09/25/14 for which a referral has been made to the EP Service in [place], [place]. He has had an EP eval with Dr Marques of the EP service in [place], [place], and has not been found to have any significant rhythm issues ECG of 01/08/18: NSR w/o evidence of ischemia or infarction Erectile dysfunction Intermittent non-compliance with medications Plan: * I discussed with him in detail the finding of angio and interventions undertaken and future management * We advised med compliance * We advised immediate and complete smoking cessation * We advised close outpt f/u for now KAMRYN MATT MD FACP FACC CCDS Apr 17, 2019 12:49
--- NOTE | 2019-04-17 12:52 | Discharge Inst-Cardiology ---
Discharge Inst-Cardiac Discharge Medications Continued Medications: Albuterol Sulfate (Albuterol Sulfate) 0.63 Mg/3 Ml Vial.neb 1 MG IH QID, INHALER Aspirin (Aspirin) 81 Mg Tab.chew 81 MG PO DAILY, TAB Atorvastatin Calcium (Atorvastatin Calcium) 80 Mg Tablet 80 MG PO HS, TAB Clopidogrel Bisulfate (Clopidogrel) 75 Mg Tablet 75 MG PO DAILY, #30 TAB 5 Refills Hydrochlorothiazide (Hydrochlorothiazide) 25 Mg Tablet 25 MG PO DAILY, TAB Metoprolol Succinate (Toprol Xl) 100 Mg Tab.er.24h 100 MG PO DAILY, TAB Omeprazole (Omeprazole) 20 Mg Capsule.dr 20 MG PO DAILY, CAP Phenytoin Sodium Extended (Phenytoin Sodium Extended) 100 Mg Capsule 200 MG PO BID, CAP TAKE 2 (100MG) TABS Umeclidinium [place] (Incruse Ellipta) 62.5 Mcg Blst.w.dev 62.5 MCG IH DAILY Patient Instructions Patient Instructions: Please schedule follow up appointment to see Dr. Maradiaga in 2 weeks ELIS VICTOR Apr 17, 2019 12:52
--- NOTE | 2019-04-17 17:12 | NUR ---
Patient Care System was down and had to do paper discharge. Paper discharge documentation was placed in chart. Education on post-op care, F/U appt, stroke S/S, medications, diet, any restrictions.
== END 2019-04-17 11:30 | disposition home or self-care (01) ==
LOC: CATH 06:41 → ICU 10:40 → CATH 04-17 11:30
PROVIDERS: ATTEND Nurse Practitioner Family
DX: I70.202 Unspecified atherosclerosis of native arteries of extremities, left leg (principal); I25.10 Atherosclerotic heart disease of native coronary artery without angina pectoris; I65.29 Occlusion and stenosis of unspecified carotid artery; E78.5 Hyperlipidemia, unspecified; F12.10 Cannabis abuse, uncomplicated; G47.30 Sleep apnea, unspecified; G40.909 Epilepsy, unspecified, not intractable, without status epilepticus; N52.9 Male erectile dysfunction, unspecified; Z91.14 Patient's other noncompliance with medication regimen; Z79.02 Long term (current) use of antithrombotics/antiplatelets; Z79.82 Long term (current) use of aspirin; Z79.899 Other long term (current) drug therapy
CPT/HCPCS: 36415; 37226; 75716; 80048; 80053; 80061; 85027; 85610; 85730; 87081; 93005; 94640

== ENCOUNTER 2019-05-27 16:02 | Emergency (ER) | payer MEDICARE ==
[~2019-05-27] VITALS: Ht 182.9 cm; Wt 117.0 kg
[2019-05-27] MEDS ORDERED: ACETAMINOPHEN 325 MG TABLET PO ONE (16:15)
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
--- NOTE | 2019-05-27 16:31 | Diagnostic Imaging Report ---
PATIENT HISTORY: Callus/blister at the plantar aspect of the left foot between the first and second digit. TECHNIQUE: Three views of the left foot. COMPARISON: None. FINDINGS: There is mild hallux valgus and metatarsus primus varus. There are degenerative changes at the proximal interphalangeal joint of the left second toe. No acute fracture is seen. No cortical erosions are identified. No radiopaque foreign body is seen. IMPRESSION: Mild hallux valgus in the left foot with degenerative changes at the second toe PIP joint. No acute osseous abnormality or cortical erosions are seen. Dictated by: Dictated on workstation # [id number]
[2019-05-27 16:57] VITALS: BP 130/71
== END 2019-05-27 16:58 | disposition home or self-care (01) ==
LOC: EDUNIT# 16:02 → ER 16:04
DX: L97.521 Non-pressure chronic ulcer of other part of left foot limited to breakdown of skin (principal); I10 Essential (primary) hypertension; I25.10 Atherosclerotic heart disease of native coronary artery without angina pectoris; E78.00 Pure hypercholesterolemia, unspecified; G40.909 Epilepsy, unspecified, not intractable, without status epilepticus; J44.9 Chronic obstructive pulmonary disease, unspecified; F41.9 Anxiety disorder, unspecified; G47.30 Sleep apnea, unspecified; K21.9 Gastro-esophageal reflux disease without esophagitis; Z99.89 Dependence on other enabling machines and devices; Z88.6 Allergy status to analgesic agent; Z79.82 Long term (current) use of aspirin; Z79.02 Long term (current) use of antithrombotics/antiplatelets; Z77.22 Contact with and (suspected) exposure to environmental tobacco smoke (acute) (chronic); Z80.0 Family history of malignant neoplasm of digestive organs
CPT/HCPCS: 73630

== ENCOUNTER → 2019-05-29 | Outpatient (CLI) | payer MEDICARE ==
[~2019-05-29] MED LIST changes: +HOLD METFORMIN - RECEIVED CONTRAST 20 ML VIAL IV SCH; +IOHEXOL 350 MG/ML 100 ML (OMNIPAQUE 350) VIAL IV ONE; +NS 100 ML (IVPB) BAG IV ONE
[2019-05-29 10:26] LABS: BUN/CREATININE RATIO 16; CREATININE SERUM 1.19 MG/DL (0.60-1.30); GFR ESTIMATED > 60
--- NOTE | 2019-05-29 12:34 | Diagnostic Imaging Report ---
PROCEDURE: CT chest with contrast only. TECHNIQUE: Multiple contiguous axial images were obtained through the chest after administration of intravenous contrast. Auto Exposure Controls were utilized during the CT exam to meet ALARA standards for radiation dose reduction. INDICATION: COPD. FINDINGS: No comparison available. There is mild paraseptal emphysema. No suspicious pulmonary nodules. No edema or pneumonia. No pleural effusion or pneumothorax. No axillary, supraclavicular, or mediastinal lymphadenopathy. Heart size is normal. No pericardial effusion. No central pulmonary embolism. The aorta is normal in caliber. Limited views of the upper abdomen are normal. There are no suspicious osseous lesions. IMPRESSION: 1. Mild paraseptal emphysema. Dictated by: Dictated on workstation # [id number]
== END ==
LOC: RAD 09:52
PROVIDERS: ATTEND Nurse Practitioner Family
DX: J44.9 Chronic obstructive pulmonary disease, unspecified (principal); G47.33 Obstructive sleep apnea (adult) (pediatric); Z72.0 Tobacco use
CPT/HCPCS: 36415; 71260; 82565; 84520

== ENCOUNTER → 2019-06-04 | Outpatient (CLI) | payer MEDICARE ==
[~2019-06-04] MED LIST changes: -HOLD METFORMIN - RECEIVED CONTRAST 20 ML VIAL IV SCH; -IOHEXOL 350 MG/ML 100 ML (OMNIPAQUE 350) VIAL IV ONE; -NS 100 ML (IVPB) BAG IV ONE; +OMEP20CA13 PO
--- NOTE | 2019-06-04 10:58 | Diagnostic Imaging Report ---
Indication: Left foot swelling. Comparison: Left foot radiograph of 019. Technique: Multi-projectional sonographic imaging of the left foot was performed. Findings and impression: Was performed in the region of the first intermetatarsal webspace. There is a potential fluid collection in this region, but this is incompletely characterized due to the ultrasound probe not adequately fitting within the space. This could represent an abscess if there is an open wound, or intermetatarsal bursitis could also give this appearance. Dictated by: Dictated on workstation # [id number]
== END ==
LOC: RAD 09:31
PROVIDERS: ATTEND Internal Medicine
DX: L02.612 Cutaneous abscess of left foot (principal)
CPT/HCPCS: 76881

== ENCOUNTER 2019-06-24 18:48 | Emergency (ER) | payer MEDICARE, MEDICAID ==
[~2019-06-24] VITALS: Ht 182.9 cm; Wt 117.0 kg
[2019-06-24] MEDS ORDERED: NS IV 1000 ML 1,000 ML IV SCH (19:33)
[2019-06-24 19:35] LABS: BILIRUBIN,URINE NEGATIVE (NEGATIVE); COLOR,URINE YELLOW; GLUCOSE, URINE (UA) NEGATIVE (NEGATIVE); KETONES,URINE 1+ (NEGATIVE); LEUKOCYTE ESTERASE ,URINE 1+ (NEGATIVE); NITRITE,URINE NEGATIVE (NEGATIVE); PH,URINE 6 (5-9); PROTEIN,URINE 1+ (NEGATIVE); UROBILINOGEN,URINE 1 MG/DL (NORMAL)
[2019-06-24 19:45] LABS: BACTERIA,URINE TRACE /HPF; CLARITY,URINE SL CLOUDY; RBC,URINE RARE /HPF; SQUAMOUS EPITHELIAL CELL,UR RARE /HPF; WBC,URINE RARE /HPF
[2019-06-24] MEDS ORDERED: KETOROLAC 30 MG/ML VIAL IVP ONE (19:45)
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
--- NOTE | 2019-06-24 20:00 | Diagnostic Imaging Report ---
INDICATION: Left-sided flank pain COMPARISON: None available TECHNIQUE: Single radiograph of the abdomen dated 06/24/2019. FINDINGS: Gas and stool is noted within the colon. No dilated loops of bowel. No differential air-fluid levels. No free air. No suspicious calcifications overlying the renal shadows. No acute osseous abnormality with mild scattered osseous degenerative changes. IMPRESSION: No acute abnormality. Dictated by: Dictated on workstation # [id number]
[2019-06-24 21:11] VITALS: BP 142/82
== END 2019-06-24 21:10 | disposition home or self-care (01) ==
LOC: EDUNIT# 18:48 → ER 18:49
DX: M54.5 Low back pain (principal); J44.9 Chronic obstructive pulmonary disease, unspecified; G47.30 Sleep apnea, unspecified; I10 Essential (primary) hypertension; E78.00 Pure hypercholesterolemia, unspecified; I25.10 Atherosclerotic heart disease of native coronary artery without angina pectoris; G40.909 Epilepsy, unspecified, not intractable, without status epilepticus; K21.9 Gastro-esophageal reflux disease without esophagitis; F41.9 Anxiety disorder, unspecified; Z86.010 Personal history of colon polyps; Z88.5 Allergy status to narcotic agent; Z79.82 Long term (current) use of aspirin; Z79.02 Long term (current) use of antithrombotics/antiplatelets; Z77.22 Contact with and (suspected) exposure to environmental tobacco smoke (acute) (chronic); Z82.49 Family history of ischemic heart disease and other diseases of the circulatory system; Z80.0 Family history of malignant neoplasm of digestive organs
CPT/HCPCS: 74018; 81000

== ENCOUNTER → 2019-07-04 | Outpatient (CLI) | payer MEDICARE, MEDICAID ==
[~2019-07-04] MED LIST changes: +RT-ALBUTEROL SULF 2.5 MG/3 ML PRE-MIX VIAL INH ONE; +RT-ALBUTEROL SULF 2.5 MG/3 ML PRE-MIX VIAL ONE; +RT-ALBUTEROL/IPRATROPIUM 3 ML (DUONEB) VIAL INH ONE
== END ==
LOC: RT 07:54
PROVIDERS: ATTEND Nurse Practitioner Family
DX: J44.9 Chronic obstructive pulmonary disease, unspecified (principal); G47.33 Obstructive sleep apnea (adult) (pediatric); Z72.0 Tobacco use
CPT/HCPCS: 94060; 94640; 94726; 94729

== ENCOUNTER → 2020-04-23 | Outpatient (CLI) | payer MEDICARE, MEDICAID ==
--- NOTE | 2020-04-08 08:05 | NUR ---
PT CAME FOR PFT, BUT ONCE PT GOT BACK TO ROOM, HE LET ME KNOW HE HAS A CURRENT PRODUCTIVE COUGH (MORE THAN USUAL) WITH SOA. HE STATES HE RECENTLY WAS RELEASED FROM HOSPITAL AND HAS NOT FULLY RECOVERED. I DISCUSSED TEST WITH PT; UPON TALKING WITH PT, HE IS NOT FULLY RECOVERED ENOUGH TO PERFORM TEST AT THIS TIME. ALSO, HE IS NOT ABLE TO DUE TEST AT THIS TIME DUE TO COVID PROTOCOLS (SYMPTOMS: SOA AND PRODUCTIVE COUGH, NOT USUAL COUGH). PT RESCHEDULED FOR APRIL 23, 2020 AT 0800. HE WILL CALL IF HE IS NOT FULLY RECOVERED BY THEN.
[~2020-04-23] MED LIST changes: +ALBU18HF2 INH; +ALBU2.5V4 INH; +AMOX-358 PO; +FLUT12AE4 IH; +FURO20TA4 PO; +FURO40TA4 PO; +FURO80TA83 PO; +GUAI473L PO; +HYDR-83 PO; +MELO7.5T46 PO; +METF-397 PO; -OMEP20CA13 PO; +OMEP20CA18 PO; +POTA10CA43 PO; +PRED10TA22 PO; -RT-ALBUTEROL SULF 2.5 MG/3 ML PRE-MIX VIAL ONE; -RT-ALBUTEROL/IPRATROPIUM 3 ML (DUONEB) VIAL INH ONE
== END ==
LOC: RT 04-08 07:47
PROVIDERS: ATTEND Nurse Practitioner Family
DX: J44.9 Chronic obstructive pulmonary disease, unspecified (principal)
CPT/HCPCS: 94060; 94726; 94729

== ENCOUNTER → 2020-04-27 | Outpatient (CLI) | payer MEDICARE, MEDICAID ==
[~2020-04-27] MED LIST changes: -RT-ALBUTEROL SULF 2.5 MG/3 ML PRE-MIX VIAL INH ONE; +VARE1TAB22 PO
== END ==
LOC: CARD 13:54
PROVIDERS: ATTEND Nurse Practitioner Family
DX: I70.213 Atherosclerosis of native arteries of extremities with intermittent claudication, bilateral legs (principal); I25.10 Atherosclerotic heart disease of native coronary artery without angina pectoris; E78.5 Hyperlipidemia, unspecified; G47.33 Obstructive sleep apnea (adult) (pediatric); M79.89 Other specified soft tissue disorders
CPT/HCPCS: 93306

== ENCOUNTER 2020-04-28 07:02 | Day surgery (SDC) | payer MEDICARE, MEDICAID ==
[2020-04-28] VITALS (10 sets, daily range): BP systolic 137–178; BP diastolic 65–82
[~2020-04-28] VITALS: Ht 178 cm; Wt 126.0 kg
[~2020-04-28 07:02] MED LIST changes: -VARE1TAB22 PO
[2020-04-28] MEDS ORDERED: LIDOCAINE 1% INJ 20 ML 20 ML VIAL ONE (07:06)
[2020-04-28] MEDS ORDERED: HEParin (CATH LAB) 2,000 ML IV ONE (07:07)
[2020-04-28] MEDS ORDERED: NS IV 1000 ML 1,000 ML ONE (07:07)
[2020-04-28] MEDS ORDERED: NS IV 1000 ML 1,000 ML IV SCH ×2 (07:15→09:15)
[2020-04-28 07:30] LABS: MEAN PLATELET VOLUME 9.3 FL (7.4-10.4); RED CELL DISTRIBUTION WIDTH 15.4 % (10.0-14.5)
[2020-04-28] MEDS ORDERED: VARE1TAB22 PO (07:32)
[2020-04-28 07:39] LABS: INR 0.9 (0.8-1.4); PROTHROMBIN TIME PATIENT 12.3 SEC (12.2-14.7)
[2020-04-28 07:48] LABS: ALANINE AMINOTRANSFERASE 44 U/L (0-55); ALBUMIN 3.9 GM/DL (3.2-4.5); ALKALINE PHOSPHATASE 161 U/L (40-136); BILIRUBIN,TOTAL 0.3 MG/DL (0.1-1.0); BUN/CREATININE RATIO 20; CALCIUM 9.4 MG/DL (8.5-10.1); CARBON DIOXIDE 27 MMOL/L (21-32); CHLORIDE 96 MMOL/L (98-107); CHOLESTEROL 273 MG/DL (< 200); CREATININE SERUM 1.04 MG/DL (0.60-1.30); GFR ESTIMATED > 60; GLUCOSE 202 MG/DL (70-105); HDL CHOLESTEROL 39 MG/DL (40-60); SODIUM 138 MMOL/L (135-145); TRIGLYCERIDES 989 MG/DL (<150); VLDL CHOLESTEROL 198 MG/DL (5-40)
[2020-04-28] MEDS ORDERED: MIDAZOLAM 5 MG/5 ML (VERSED) VIAL ONE (08:01)
[2020-04-28] MEDS ORDERED: fentaNYL INJECTION 100 MCG/2 ML AMP ONE (08:01)
[2020-04-28] MEDS ORDERED: NITRO DRIP 25000 MCG/D5W 0 ML IV ONE (08:24)
[2020-04-28] MEDS ORDERED: PATIENT MAY USE OWN MEDS, ALL PO SCH (09:15)
--- NOTE | 2020-04-28 09:15 | Cardiac Procedure Note-CS/ASA ---
Pre-Procedure Note Pre-Op Procedure Note H&P Reviewed The H&P was reviewed, patient examined and no changes noted. Date H&P Reviewed: Apr 28, 2020 Time H&P Reviewed: 08:30 Conscious Sedation Pre-Proced Time 08:30 ASA Score 3 For ASA 3 and 4: Consider anesthesia and medical clearance. Also, for patients with a history of failed moderate sedation consider anesthesia. Airway Lungs Heart ASA score ASA 1: a normal healthy patient ASA 2: a patient with a mild systemic disease (mid diabetes, controlled hypertension, obesity ASA 3: a patient with a severe systemic disease that limits activity (angina, COPD, prior Myocardial infarction) ASA 4: a patient with an incapacitating disease that is a constant threat to life (CHF, renal failure) ASA 5: a moribund patient not expected to survive 24 hrs. (ruptured aneurysm) ASA 6: a declared brain- patient whose organs are being harvested. For emergent operations, add the letter E after the classification Mallampati Classification Grade 3 Sedation Plan Analgesia, Amnesia, Plan communicated to team members, Discussed options with patient/fam, Discussed risks with patient/fam The patient is an appropriate candidate to undergo the planned procedure, sedation, and anesthesia. The patient immediately re-assessed prior to indication. KAMRYN MATT MD FACP FAC CCDS Apr 28, 2020 09:15
--- NOTE | 2020-04-28 09:18 | Discharge Inst-Post CATH ---
Discharge Inst-CATH/EP Post Cardiac Cath/EP D/C Inst Follow Up/Plan F/u with Dr Maradiaga in 2 weeks ACTIVITY * Go Home directly and rest. * Limit activity of the leg (or wrist if it was used) for 7 days including aerobics, swimming, jogging, bicycling, etc. * Restrict stair-climbing for 7 days if possible, if not, climb up with your n on-cath leg, then bring together on the same step. * Avoid lifting, pushing, pulling or excessive movement of the affected ex tremity for 7 days. * Customary sexual activity may be resumed after 2 days-use caution not to use a position that strains or causes pain to the affected extremity. * No driving for 24 hours. * NO SMOKING. * Avoid straining for bowel movements for 7 days. * Gentle walking on level ground is allowed. * Returning to work will depend on the type of procedure and the results. Your doctor will discuss this with you. CALL YOUR DOCTOR FOR ANY OF THE FOLLOWING: *If bleeding from the puncture site occurs- Apply gentle pressure to site with clean cloth and call your doctor or EMS. * If a knot or lump forms under the skin, increases in size, or causes pain. * If bruising appears to be worsening or moving further down your leg instead of disappearing. * Temperature above 101 F. CARE OF YOUR GROIN INCISION; * Bruising or purple discoloration of the skin near the puncture site is common. * You may shower only, no bathtub bathing for 5 days. Be careful to avoid slipping as your leg may feel stiff. * If a closure device was used on your femoral artery, please see the attached guide regarding care of the device and your leg. * Leave dressing on FOR 24 hours. CARE OF YOUR WRIST INCISION; * Bruising or purple discoloration of the skin near the puncture site is common. * You may shower. * DO NOT submerge wrist. * Leave dressing on FOR 24 hours. KAMRYN MARADIAGA MD [facility]S Apr 28, 2020 09:18
--- NOTE | 2020-04-28 09:20 | Discharge Inst-Cardiology ---
Discharge Inst-Cardiac Discharge Medications Continued Medications: Albuterol Sulfate (Albuterol Sulfate) 2.5 Mg/3 Ml Vial.neb 2.5 MG INH QID PRN for SHORTNESS OF BREATH Albuterol Sulfate (Ventolin Hfa) 18 Gm Hfa.aer.ad 1 PUFF INH Q4H PRN for SHORTNESS OF BREATH Aspirin (Aspirin) 81 Mg Tab.chew 81 MG PO DAILY, TAB Atorvastatin Calcium (Atorvastatin Calcium) 80 Mg Tablet 80 MG PO HS, TAB Clopidogrel Bisulfate (Clopidogrel) 75 Mg Tablet 75 MG PO DAILY, #30 TAB 5 Refills Fluticasone/Salmeterol (Advair Hfa 115-21 Mcg Inhaler) 12 Gm Hfa.aer.ad 0 PUFF IH RTBID, #1 GM Furosemide (Lasix) 80 Mg Tablet 80 MG PO DAILY, #30 TAB Omeprazole (Omeprazole) 20 Mg Capsule.dr 20 MG PO DAILY, CAP Phenytoin Sodium Extended (Phenytoin Sodium Extended) 100 Mg Capsule 200 MG PO BID, CAP TAKE 2 (100MG) TABS Potassium Chloride (Potassium Chloride) 10 Meq Capsule.er 10 MEQ PO DAILY, #30 CAP Varenicline Tartrate (Chantix) 1 Mg Tablet 1 MG PO BID, TAB Discontinued Medications: Metformin HCl (Metformin HCl) 500 Mg Tablet 500 MG PO BID Patient Instructions Patient Instructions: Hold METFORMIN until the morning of 05/01/20. Then resume previous home dose KAMRYN MATT MD FACP FAC CCDS Apr 28, 2020 09:20
--- NOTE | 2020-04-28 14:31 | OPERATIVE REPORT ---
DATE OF SERVICE: 04/28/2020 PERIPHERAL ANGIOGRAPHY AND INTERVENTION REPORT The patient is a 59-year-old man who has leg claudication, is known to have peripheral arterial disease. A week ago, he was found to have considerable peripheral arterial disease, especially involving the proximal right superficial femoral artery. He comes in for intervention. Informed consent was obtained for angiography and intervention, including drug-coated balloon angioplasty. DESCRIPTION OF PROCEDURE: He was brought to the cardiac catheterization laboratory. The left groin was prepared and draped in the usual sterile fashion. Lidocaine 1% used for local anesthesia. Modified Seldinger technique was used to advance a 5-Dutch sheath in the right femoral artery. We used a crossover catheter to advance a wire into the contralateral (right) superficial femoral artery. This was a 0.035 inch wire. The 5-Dutch sheath was removed, and we advanced a 45 cm 6-Dutch sheath, the tip of which was placed in the proximal left superficial femoral artery. Angiography was performed and the lesion confirmed. Gradient across the lesion was almost 100 mmHg. Over the 0.35 inch wire, we carried out balloon angioplasty with Ringle 5.0 x 40 mm balloon. This balloon was then collapsed and removed, and we advanced the Lutonix 6.0 x 40 mm balloon and balloon inflation was carried at 6 atmospheres. The balloon was then collapsed and removed. Subsequent angiography revealed less than 30% residual stenosis and flow throughout the vessel is normal. The long sheath was removed over the wire and replaced with a short 6-Dutch sheath. It was sutured in place and the patient was transferred to the floor for manual sheath removal. He received 6000 units of intravenous heparin during the interventional procedure. He tolerated the procedure well. CONCLUSIONS: Successful balloon angioplasty and paclitaxel balloon angioplasty of a 90% proximal stenosis of the right superficial femoral with reduction of stenosis to less than 30% residual. Job ID: [id number] DocumentID: [id number] Dictated Date: 04/28/2020 12:12:00 Corrections Specialist Date: 04/28/2020 14:30:12 Dictated By: KAMRYN MATT MD, MA, FACP, FACC,
== END 2020-04-28 12:45 | disposition home or self-care (01) ==
LOC: CATH 07:02 → SDC 09:15 → CATH 12:45
PROVIDERS: ATTEND Internal Medicine Cardiovascular Disease
DX: I70.213 Atherosclerosis of native arteries of extremities with intermittent claudication, bilateral legs (principal); J44.9 Chronic obstructive pulmonary disease, unspecified; G47.33 Obstructive sleep apnea (adult) (pediatric); F17.210 Nicotine dependence, cigarettes, uncomplicated; E66.9 Obesity, unspecified; Z68.39 Body mass index [BMI] 39.0-39.9, adult; F12.10 Cannabis abuse, uncomplicated; I65.02 Occlusion and stenosis of left vertebral artery; I65.23 Occlusion and stenosis of bilateral carotid arteries; I25.10 Atherosclerotic heart disease of native coronary artery without angina pectoris; E78.5 Hyperlipidemia, unspecified; I10 Essential (primary) hypertension; G40.909 Epilepsy, unspecified, not intractable, without status epilepticus; Z88.8 Allergy status to other drugs, medicaments and biological substances; Z79.899 Other long term (current) drug therapy; Z79.52 Long term (current) use of systemic steroids; Z79.84 Long term (current) use of oral hypoglycemic drugs; Z79.82 Long term (current) use of aspirin
CPT/HCPCS: 36246; 75625; 75716; 80053; 80061; 85027; 85610; 85730; 87081; C1760; C1769; C1887; C1894; 36415

== ENCOUNTER → 2020-05-05 | Outpatient (CLI) | payer MEDICARE, MEDICAID ==
[~2020-05-05] VITALS: Ht 175 cm; Wt 128.0 kg
[~2020-05-05] MED LIST changes: +CATHETER FLUSH 10 ML SYR IV PRN; +REGADENOSON 0.4 MG/5 ML SYR (LEXISCAN) IV ONE; +VARE1TAB22 PO
--- NOTE | 2020-05-05 14:02 | STRESS TEST ---
DATE OF SERVICE: 05/05/2020 RESTING AND POST REGADENOSON TECHNETIUM-99M TETROFOSMIN SPECT CT IMAGING ORDERING PHYSICIAN: Alexandra Song APRN PRIMARY PHYSICIAN: [facility]. CLINICAL DIAGNOSES: Coronary artery disease, shortness of breath. Baseline images were carried out after injection of 10.78 mCi of technetium-99m Tetrofosmin. This was followed by 0.4 mg regadenoson and 31.6 mCi of technetium-99m Tetrofosmin for stress imaging. The patient noted some shortness of breath following regadenoson infusion, which resolved in a few minutes. The electrocardiogram showed sinus rhythm at baseline with nonspecific ST and T-wave abnormality. This did not change significantly with the regadenoson infusion. Images are somewhat difficult to interpret because of considerable gut activity. There does not appear to be any distinct evidence of myocardial ischemia or infarction. Gated images show mild global hypokinesis. There does not appear to be regional wall motion abnormality. Left ventricular ejection fraction is calculated to be 46%. Left ventricular end diastolic volume is 116 mL. TID is absent (1.04). CONCLUSIONS: 1. No evidence of significant myocardial ischemia or infarction. 2. Mild global hypokinesis with a calculated left ventricular ejection fraction of 46%. 3. Moderate cardiomegaly. Job ID: [id number] DocumentID: [id number] Dictated Date: 05/05/2020 12:32:40 Strawhat Sizer Date: 05/05/2020 14:02:13 Dictated By: KAMRYN MATT MD, MA, FACP, FACC,
== END ==
LOC: CARD 07:57
PROVIDERS: ATTEND Nurse Practitioner Family
DX: I70.213 Atherosclerosis of native arteries of extremities with intermittent claudication, bilateral legs (principal); I25.10 Atherosclerotic heart disease of native coronary artery without angina pectoris; E78.5 Hyperlipidemia, unspecified; G47.33 Obstructive sleep apnea (adult) (pediatric); I51.7 Cardiomegaly; I51.89 Other ill-defined heart diseases; R22.40 Localized swelling, mass and lump, unspecified lower limb
CPT/HCPCS: 78452; 93017; A9502

== ENCOUNTER 2020-05-11 14:25 | Inpatient (IN) | payer MEDICARE, MEDICAID ==
[~2020-05-11] VITALS: Ht 180 cm; Wt 125.0 kg
[~2020-05-11 14:25] MED LIST changes: -CATHETER FLUSH 10 ML SYR IV PRN; -REGADENOSON 0.4 MG/5 ML SYR (LEXISCAN) IV ONE
[2020-05-11] MEDS ORDERED: RX-ALBUTEROL INHALER 8 GM HFA (VENTOLIN) IH STA (14:45)
[2020-05-11] MEDS ORDERED: RT-ALBUTEROL/IPRATROPIUM 3 ML (DUONEB) VIAL ONE (14:56)
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
[2020-05-11] MEDS ORDERED: methylPREDNISolone 125 MG (Solu-MEDROL) VIAL IVP ONE (15:00)
--- NOTE | 2020-05-11 15:05 | NUR ---
COVID SWAB DONE
--- NOTE | 2020-05-11 15:24 | NUR ---
PT IS VERY SLEEPY FALLS ASLEEP QUICKLY AFTER SPEAKING TO RN.
--- NOTE | 2020-05-11 15:29 | Diagnostic Imaging Report ---
INDICATION: Hypoxemia. EXAMINATION: Portable chest at 03:18 p.m. FINDINGS: Heart size and pulmonary vascularity are normal. Lungs are clear. There are no effusions or pneumothoraces. IMPRESSION: Negative chest. Dictated by: Dictated on workstation # [id number]
[2020-05-11 15:34] LABS: BASOPHILS % (AUTO) 0 % (0-10); EOSINOPHILS % (AUTO) 0 % (0-10); HEMATOCRIT 51 % (40-54); LYMPHOCYTES # (AUTO) 0.4 X 10^3 (1.0-4.0); LYMPHOCYTES % (AUTO) 4 % (12-44); MEAN CORPUSCULAR HEMOGLOBIN 31 PG (25-34); MEAN CORPUSCULAR HGB CONC 34 G/DL (32-36); MEAN CORPUSCULAR VOLUME 93 FL (80-99); MEAN PLATELET VOLUME 9.5 FL (7.4-10.4); MONOCYTES # (AUTO) 0.1 X 10^3 (0.0-1.0); MONOCYTES % (AUTO) 1 % (0-12); NEUTROPHILS # (AUTO) 8.2 X 10^3 (1.8-7.8); NEUTROPHILS % (AUTO) 95 % (42-75); PLATELET COUNT 161 10^3/uL (130-400); RED CELL DISTRIBUTION WIDTH 15.6 % (10.0-14.5); WHITE BLOOD COUNT 8.6 10^3/uL (4.3-11.0)
[2020-05-11 15:47] LABS: ALBUMIN 3.9 GM/DL (3.2-4.5); CHLORIDE 94 MMOL/L (98-107); POTASSIUM 4.3 MMOL/L (3.6-5.0); SODIUM 135 MMOL/L (135-145)
[2020-05-11 15:48] LABS: CALCIUM 9.1 MG/DL (8.5-10.1)
[2020-05-11 15:49] LABS: GLUCOSE 371 MG/DL (70-105); TOTAL PROTEIN 7.1 GM/DL (6.4-8.2)
[2020-05-11 15:50] LABS: CARBON DIOXIDE 28 MMOL/L (21-32)
[2020-05-11 15:51] LABS: BILIRUBIN,TOTAL 0.6 MG/DL (0.1-1.0)
[2020-05-11 15:52] LABS: ALKALINE PHOSPHATASE 157 U/L (40-136)
[2020-05-11 15:53] LABS: CREATININE SERUM 1.21 MG/DL (0.60-1.30); GFR ESTIMATED > 60
[2020-05-11 15:54] LABS: BUN/CREATININE RATIO 11
[2020-05-11 15:56] LABS: ALANINE AMINOTRANSFERASE 29 U/L (0-55)
[2020-05-11] MEDS ORDERED: inSUlin (REGULAR) HUMAN 1 UNIT/0.01 ML (CHARGE PER UNIT) SC SCH (16:00)
[2020-05-11 16:12] LABS: INR 0.9 (0.8-1.4); PROTHROMBIN TIME PATIENT 12.6 SEC (12.2-14.7)
[2020-05-11] MEDS ORDERED: CATHETER FLUSH 10 ML SYR IV PRN (16:30)
[2020-05-11 16:35] LABS: LYMPHOCYTES % (MANUAL) 3 %; NEUTROPHILS % (MANUAL) 97 %; RBC MORPH NORMAL
[2020-05-11 16:36] VITALS: BP 147/64
--- NOTE | 2020-05-11 16:40 | NUR ---
LELE GAMBLE admitted to room 427-1, with an admitting diagnosis of COPD EX., on 05/11/20 from ER via , accompanied by STAFF. LELE GAMBLE introduced to surroundings, call light, bed controls, phone, TV, temperature control, lights, meal times, smoking policy, visitor policy, side rail policy, bathrooms and showers. Patient Rights given to patient in the handbook. LELE GAMBLE verbalizes understanding that [facility] is not responsible for the loss or damage to any personal effects or valuables that are kept in the patients posession during their hospitalization. LELE GAMBLE verbalizes understanding of Interdisciplinary Patient Education. Patient and/or family were informed about the Rapid Response Team and its purpose.
[2020-05-11] MEDS: LACTATED RINGERS 1,000 ML IV SCH (17:34)
[2020-05-11] MEDS: cefTRIAXone 1,000 MG/SWFI 10 ML IV PUSH IV SCH ×2 (17:34)
[2020-05-11] MEDS: methylPREDNISolone 125 MG (Solu-MEDROL) VIAL IVP SCH (17:34)
[2020-05-11 17:40] VITALS: BP 142/72
[2020-05-11 17:44] VITALS: BP 142/72
[2020-05-11] MEDS ORDERED: VARE1TAB22 PO (17:55)
[2020-05-11] MEDS ORDERED: LEVO750T39 PO (17:56)
[2020-05-11] MEDS ORDERED: PRD10T PO (17:59)
[2020-05-11] MEDS ORDERED: BENZ100C18 PO (17:59)
--- OUTSIDE RECORDS SUMMARY | 2020-05-11 18:36 | XMS REPORT ---
Author Author Suman CARDOZA Organization [facility] [place] Address [address] [place] [address] Care Team Providers Care Corporate Relations Director Name Role Phone RENETTA CARDOZA Unavailable PROBLEMS Type Condition ICD9-CM Code LHR80-HM Code Onset Dates Condition S tatus SNOMED Code Problem Coronary artery disease invo lving grindstone heart, angina presence unspecified, unspecified vessel or lesion type I25.10 Active 12980256 Problem LAURY (obstructive sleep apnea) G47.33 Active 63423766 Problem Chronic obstructive pulmonary disease, unspecified COPD ty pe J44.9 Active 47409062 Problem Seizure disorder G40.909 Active 128 386438 Problem Erectile dysfunction, unspecified erectile dysfunction typ e N52.9 Active 582589278 Problem Other chronic pain G89.29 Active 8 2679069 Problem Tobacco abuse Z72.0 Active 890641 05 Problem Non morbid obesity E66.9 Active 4 06889187 Problem Non morbid obesity due to excess calories E66.09 Active 043569417 Problem Other obesity due to excess calories E66.09 Active 066768365 Problem Panlobular emphysema J43.1 Active 7420767 Problem COPD exacerbation J44.1 Active 19 7627776 Problem COPD with acute exacerbation J44.1 A ctive 363604039 Problem 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 Active [id number] Problem Chronic major depressive disorder, recurrent episode F33.9 Active 78250170 Problem RLS (restless legs syndrome) G25.81 A ctive 36054326 Problem Recurrent major depressive disorder, remission s tatus unspecified F33.9 Active 29245252 Problem Morbid obesity due to excess calories E66.01 Active 642915264 Problem Flexural eczema L20.82 Active 5709 2006 Problem Hypertension, benign I10 Active 28628064 Problem Palpitations R00.2 Active 1417492 2 Problem Restless leg syndrome G25.81 Active 15249649 Problem Primary insomnia F51.01 Active 397 2004 Problem Atherosclerotic heart diseas e of grindstone coronary artery with other forms of angina pectoris I25.118 Active 926098568 Problem Type 2 diabetes mellitus wit hout complication, unspecified whether extermination supervisor insulin use E11.9 Active 397590373 ALLERGIES No Information ENCOUNTERS Encounter Location Date Diagnosis [facility] [place] [address] [facility] [address] [id number] [address] [place] [phone] 29 Mar, 2020 Chronic obstructive pulmonar y disease, unspecified COPD type J44.9 ; Flexural eczema L20.82 ; Type 2 diabetes mellitus without complication, unspecified whether fdc insulin use E11.9 and Recurrent major depressive disorder, remission status unspecified F33.9 [facility] [address] [id number] [address] [place] [id number] 26 Mar, 2020 COPD exacerbation J44.1 [place] [address] [facility] [id number] [address] [place] [phone] February, [facility] [place] [address] [id number] [address] [place] [phone] February, [facility] [place] [address] [id number] [address] [place] [phone] February, Chronic obstructive pulmonar y disease, unspecified COPD type J44.9 ; Tobacco abuse Z72.0 ; Tobacco abuse counseling Z71.6 and Primary insomnia F51.01 [place] [address] [facility] [id number] [address] [place] [address] February, [facility] [place] [address] [id number] [address] [place] [address] February, Chronic obstructive pulmonar y disease, unspecified COPD type J44.9 and Coronary artery disease involving grindstone heart, angina presence unspecified, unspecified vessel or lesion type I25.10 [facility] [place] [address] [id number] [address] [place] [phone] February, [facility] [address] [id number] [address] [place] [phone] February, Right leg swelling M79.89 [facility] [place] [address] [id number] [address] [place] [phone] Jan, Dependent edema R60.9 [facility] [address] [id number] [address] [place] [phone] Jan, Dependent edema R60.9 [facility] [place] [address] [id number] [address] [place] [phone] Jan, Hyperglycemia R73.9 and Loca lized edema R60.0 [facility] [place] [address] [id number] [address] [place] [phone] Jan, [facility] [place] [address] [id number] [address] [place] [phone] Jan, Counseled by nurse Leroy71.9 [facility] [place] [address] [id number] [address] [place] [phone] Jan, Hyperglycemia R73.9 and Loca lized edema R60.0 [facility] [place] [address] [id number] [address] [place] [phone] Jan, [facility] [place] [address] [id number] [address] [place] [phone] Jan, [facility] [place] [address] [id number] [address] [place] [phone] Jan, Hyperglycemia R73.9 [facility] [place] [address] [id number] [address] [place] [phone] Jan, Hyperglycemia R73.9 [facility] [place] [address] [id number] [address] [place] [phone] Jan, Coronary artery disease invo lving grindstone heart, angina presence unspecified, unspecified vessel or lesion type I25.10 and Localized edema R60.0 [facility] [place] [address] [id number] [address] [place] [phone] Jan, [facility] [place] [address] [id number] [address] [place] [address] 15 Jan, 2020 Coronary artery disease invo lving grindstone heart, angina presence unspecified, unspecified vessel or lesion type I25.10 and Localized edema R60.0 [facility] [address] [place] [id number] [address] [place] [phone] 14 Jan, 2020 Bilateral edema of lower ext remity R60.0 and SOB (shortness of breath) R06.02 [place] [address] [address] 05 Dec, 2019 Chronic obstructive pulmonar y disease, unspecified COPD type J44.9 ; Non morbid obesity due to excess calories E66.09 ; Seizure disorder G40.909 ; Atherosclerotic heart disease of grindstone coronary artery with other forms of angina pectoris I25.118 ; Other chronic pain G89.29 ; Pain in right knee M25.561 and RLS (restless legs syndrome) G25.81 [facility] [address] [place] [id number] [address] [place] [address] 20 Nov, 2019 COPD exacerbation J44.1 and Cough R05 [place] [address] [place] [id number] [address] [place] [phone] 20 Nov, 2019 [place] [address] [place] [id number] [address] [place] [phone] 06 Nov, 2019 Chronic obstructive pulmonar y disease, unspecified COPD type J44.9 [place] [address] [place] [id number] [address] [place] [id number] 03 Nov, 2019 [facility] [address] [place] [id number] [address] [place] [phone] 30 Oct, 2019 COPD exacerbation J44.1 and Tobacco abuse Z72.0 [place] [address] [place] [id number] [address] [place] [id number] 14 Oct, 2019 [place] [address] [place] [id number] [address] [place] [phone] 14 Oct, 2019 Right knee pain, unspecified chronicity M25.561 [place] [id number] [place] [address] Sep, Restless leg syndrome G25.81 and Primary insomnia F51.01 [facility] [address] [address] Sep, Chronic obstructive pulmonar y disease, unspecified COPD type J44.9 and COPD exacerbation J44.1 [place] [address] [address] Sep, RLS (restless legs syndrome) G25.81 [place] [address] [address] Aug, Other chronic pain G89.29 ; Pain in right knee M25.561 ; Seizures R56.9 ; Coronary artery disease of grindstone artery of grindstone heart with stable angina pectoris I25.118 and Chronic major depressive disorder, recurrent episode F33.9 [facility] [address] [address] Jul, Right knee pain, unspecified chronicity M25.561 [place] [address] [address] Jul, [place] [address] [address] Jul, Foot pain, right M79.671 ; M orbid obesity due to excess calories E66.01 ; Seizures R56.9 and Encounter for immunization Z23 [place] [address] [address] Jun, [place] [address] [address] Jun, Non morbid obesity due to ex cess calories E66.09 and Foot callus L84 [place] [address] [address] May, [facility] [address] [place] [address] May, Flank pain R10.9 [facility] [place] [address] [id number] [address] [place] [phone] May, Focal seizures R56.9 [facility] [place] [address] [id number] [address] [place] [phone] May, COPD exacerbation J44.1 and Non morbid obesity E66.9 [facility] [place] [address] [id number] [address] [place] [id number] May, Seizure disorder G40.909 [facility] [place] [address] [id number] [address] [place] [phone] May, [facility] [place] [address] [id number] [address] [place] [id number] May, [facility] [place] [address] [id number] [address] [place] [phone] May, Abscess of left foot L02.612 [facility] [place] [address] [id number] [address] [place] [address] Apr, Cellulitis of left lower ext remity L03.116 [facility] [place] [address] [id number] [address] [place] [address] Apr, [facility] [place] [address] [id number] [address] [place] [id number] Apr, [facility] [address] [id number] [address] [place] [address] Apr, Cellulitis of left foot L03. 116 [facility] [place] [address] [id number] [address] [place] [phone] Apr, Chronic obstructive pulmonar y disease, unspecified COPD type J44.9 and Seizures R56.9 [facility] [place] [address] [id number] [address] [place] [phone] Mar, [facility] [place] [address] [id number] [address] [place] [id number] Mar, [facility] [place] [address] [id number] [address] [place] [address] Mar, [facility] [place] [address] [id number] [address] [place] [phone] February, [facility] [place] [address] [id number] [address] [place] [phone] February, [facility] [place] [address] [id number] [address] [place] [phone] Jan, [facility] [id number] [place] [address] Aug, Wheezes R06.2 and Pneumonia J18.9 [place] [address] [place] [id number] [place] [address] Aug, Erectile dysfunction, unspec ified erectile dysfunction type N52.9 [facility] [place] [address] [place] [id number] [place] [address] Aug, Non morbid obesity E66.9 [facility] [address] [place] [id number] [place] [address] Jul, [facility] [address] [id number] [address] [place] [address] Jul, Testicular swelling, right N 50.89 [facility] [place] [address] [place] [id number] [place] [address] Jul, Callus L84 [facility] [place] [address] [place] [id number] [address] [place] [address] Jun, Non morbid obesity E66.9 ; C OPD exacerbation J44.1 ; 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 and Dermatofibroma D23.9 [facility] [place] [address] [id number] [address] [place] [address] May, Non morbid obesity E66.9 and Grade II hemorrhoids K64.1 [place] [address] [place] [id number] [address] [place] [address] Mar, [place] [address] [address] Mar, Cough 786.2 ; Medicare annua l wellness visit, initial Z00.00 ; Morbid obesity due to excess calories E66.01 ; Chronic obstructive pulmonary disease, unspecified COPD type J44.9 ; Coronary artery disease involving grindstone heart, angina presence unspecified, unspecified vessel or lesion type I25.10 ; Hypertension, benign I10 and LAURY (obstructive sleep apnea) G47.[address] [address] 31 Feb, 2018 Medicare annual wellness vis it, initial Z00.00 ; Morbid obesity due to excess calories E66.01 ; Chronic obstructive pulmonary disease, unspecified COPD type J44.9 ; Coronary artery disease involving grindstone heart, angina presence unspecified, unspecified vessel or lesion type I25.10 ; Hypertension, benign I10 ; LAURY (obstructive sleep apnea) G47.33 ; Family history of colon cancer Z80.0 ; Other chronic pain G89.29 and Pain in right hip M25.551 [place] [address] [address] Jan, [place] [address] [address] Nov, Panlobular emphysema J43.1 [place] [address] [place] [id number] [address] [place] [address] Nov, COPD exacerbation J44.1 [place] [address] [address] Nov, Viral URI J06.9 [place] [address] [place] [id number] [place] [address] Nov, [place] [address] [address] Nov, [facility] [place] [address] [id number] [address] [place] [address] Sep, Other obesity due to excess calories E66.09 and Body mass index (BMI) of 36.0-36.9 in adult Z68.36 [facility] [place] [address] [id number] [address] [place] [address] Aug, [facility] [place] [address] [id number] [address] [place] [address] Aug, [facility] [place] [address] [id number] [address] [place] [address] Aug, Coronary artery disease invo lving grindstone heart, angina presence unspecified, unspecified vessel or lesion type I25.10 and Chronic obstructive pulmonary disease, unspecified COPD type J44.9 [facility] [address] [id number] [address] [place] [address] Jul, COPD with acute exacerbation J44.1 [facility] [place] [address] [id number] [address] [place] [address] Jul, Non morbid obesity E66.9 [place] [address] [id number] [address] [place] [address] Jun, Panlobular emphysema J43.1 ; Tobacco abuse Z72.0 ; Tobacco abuse counseling Z71.6 and Non morbid obesity E66.9 [facility] [place] [address] [id number] [address] [place] [address] Apr, [facility] [place] [address] [id number] [address] [place] [address] Apr, [place] [address] [place] [id number] [address] [place] [address] Mar, COPD exacerbation J44.1 [place] [address] [facility] [id number] [address] [place] [address] Mar, Tear of medial meniscus of r ight knee, current, unspecified tear type, initial encounter S83.241A [facility] [place] [address] [id number] [address] [place] [address] Mar, Pain in right knee M25.561 [facility] [address] [id number] [address] [place] [address] February, Pain in right knee M25.561 [facility] [place] [address] [id number] [address] [place] [address] February, Pain in right knee M25.561 [facility] [place] [address] [id number] [address] [place] [address] Dec, [place] [address] [facility] [id number] [address] [place] [address] Nov, [facility] [address] [id number] [address] [place] [address] Nov, Bronchitis J40 and Wheezing R06.2 [place] [address] [facility] [id number] [address] [place] [address] Oct, [facility] [place] [address] [id number] [address] [place] [address] Oct, [place] [address] [facility] [id number] [address] [place] [address] Oct, Non morbid obesity due to ex cess calories E66.09 ; Other chronic pain G89.29 and Pain in right knee M25.561 [facility] [place] [address] [id number] [address] [place] [address] Oct, Non morbid obesity due to ex cess calories E66.09 ; Other chronic pain G89.29 and Pain in right knee M25.561 [facility] [place] [address] [id number] [address] [place] [address] Oct, Pain in right knee M25.561 a nd Other chronic pain G89.29 [place] [id number] [facility] [id number] [address] [place] [address] Aug, Encounter for immunization Z 23 [facility] [place] [address] [id number] [address] [place] [address] 09 Aug, 2016 [facility] [place] [address] [place] [id number] [place] [address] 09 Aug, 2016 [facility] [place] [address] [id number] [address] [place] [id number] 02 Jun, 2016 Common wart B07.8 [facility] [address] [id number] [address] [place] [address] May, Cellulitis of left elbow L03 .114 [place] [address] [place] [id number] [place] [address] Mar, Torticollis, acute M43.6 and Leg pain, left M79.605 [place] [address] [place] [id number] [place] [address] February, Leg pain, left M79.605 [facility] [address] [place] [id number] [address] [place] [address] Dec, COPD exacerbation J44.1 [place] [address] [address] Dec, [facility] [place] [address] [place] [id number] [place] [address] Oct, Chronic obstructive pulmonar y disease, unspecified COPD type J44.9 and Hyperglycemia R73.9 [facility] [place] [address] [place] [id number] [address] [place] [address] Sep, Tobacco abuse Z72.0 ; Figueroa ry artery disease involving grindstone heart, angina presence unspecified, unspecified vessel or lesion type I25.10 and Morbid obesity due to excess calories E66.01 [facility] [place] [address] [place] [id number] [address] [place] [address] 14 Sep, 2015 [facility] [place] [address] [address] Sep, Leg pain, left M79.605 [facility] [place] [address] [place] [id number] [address] [place] [address] Sep, [facility] [place] [address] [place] [id number] [place] [address] Sep, [facility] [place] [address] [address] Aug, Essential (primary) hyperten autumn I10 [facility] [place] [address] [address] Aug, Encounter for immunization Z 23 [facility] [place] [address] [address] Aug, [facility] [place] [address] [address] May, Chronic airway obstruction, not elsewhere classified 496 [facility] [place] [address] [address] May, [facility] [place] [address] [address] May, [facility] [place] [address] [address] May, Acute bronchitis 466.0 [facility] [place] [address] [address] May, [facility] [place] [address] [address] May, Hyperglycemia 790.29 [facility] [place] [address] [address] Apr, [facility] [place] [address] [address] Apr, Cough 786.2 ; Hyperglycemia 790.29 and COPD (chronic obstructive pulmonary disease) 496 [facility] [place] [address] [address] 30 Mar, 2015 Cough 786.2 ; Elevated gluco se 790.29 ; Wheezing 786.07 ; COPD exacerbation 491.21 and Nicotine dependence 305.1 [facility] [place] [address] [id number] [address] [place] [id number] 16 Mar, 2015 High risk medication use V58 .69 [facility] [place] [address] [facility] [id number] [address] [place] [address] Mar, High risk medication use V58 .69 and Benign hypertension 401.1 [facility] [place] [address] [id number] [address] [place] [address] Mar, [facility] [place] [address] [id number] [address] [place] [address] February, [facility] [place] [address] [facility] [id number] [address] [place] [address] February, [facility] [place] [address] [id number] [address] [place] [address] Jan, [facility] [place] [address] [id number] [address] [place] [address] 30 Jan, 2015 Benign hypertension 401.1 [facility] [place] [address] [facility] [id number] [address] [place] [address] 14 Jan, 2015 [facility] [place] [address] [id number] [address] [place] [address] Jan, [facility] [place] [address] [facility] [id number] [address] [place] [address] Dec, [facility] [place] [address] [id number] [address] [place] [address] Dec, [facility] [place] [address] [facility] [id number] [address] [place] [address] Dec, [facility] [place] [address] [facility] [id number] [address] [place] [address] 18 Dec, 2014 [facility] [address] [id number] [address] [place] [address], [place] [address] 18 Dec, 2014 [facility] [address] [id number] [address] [place] [address], [place] [address] 2014 [facility] [address] [id number] [address] [place] [address] [address] 2014 [facility] [address] [id number] [address] [place] [address], [place] [address] 13 Dec, 2014 [facility] [address] [id number] [address] [place] [address], [place] [address] 13 Dec, 2014 [facility] [address] [id number] [address] [place] [address], [place] [address] 06 Dec, 2014 [facility] [address] [id number] [address] [place] [address], [place] [address] 06 Dec, 2014 [facility] [address] [id number] [address] [place] [address], [place] [address] 05 Dec, 2014 [facility] [address] [id number] [address] [place] [address], [place] [address] 05 Dec, 2014 [facility] [address] [id number] [address] [place] [address], [place] [address] Dec, [facility] [address] [id number] [address] [place] [address], [place] [address] Dec, [facility] [address] [id number] [address] [place] [address], [place] [address] 16 Nov, 2014 [facility] [address] [id number] [address] [place] [address], [place] [address] Nov, 2014 [facility] [address] [id number] [address] [place] [address], [place] [address] Nov, [facility] [address] [id number] [address] [place] [address], [place] [address] Nov, 2014 [facility] [address] [id number] [address] [place] [address], [place] [address] Oct, [facility] [address] [id number] [address] [place] [address], [place] [address] Oct, [facility] [address] [id number] [address] [place] [address], [place] [address] Oct, [facility] [address] [id number] [address] [place] [address], [place] [address] Oct, [facility] [address] [id number] [address] [place] [address], [place] [address] Oct, [facility] [address] [id number] [address] [place] [address], [place] [address] Oct, [facility] [address] [id number] [address] [place] [address], [place] [address] Oct, [facility] [address] [id number] [address] [place] [address], [place] [address] Oct, [facility] [address] [id number] [address] [place] [address], [place] [address] Sep, [facility] [address] [id number] [address] [place] [address], [place] [address] Sep, [facility] [address] [id number] [address] [place] [address], [place] [address] Sep, [facility] [address] [id number] [address] [place] [address], [place] [address] Sep, [facility] [address] [id number] [address] [place] [address], [place] [address] Sep, [facility] [address] [id number] [address] [place] [address], [place] [address] Sep, [facility] [address] [id number] [address] [place] [address], [place] [address] Sep, [facility] [address] [id number] [address] [place] [address], [place] [address] Sep, [facility] [address] [id number] [address] [place] [address], [place] [address] Aug, [facility] [address] [id number] [address] [place] [address], [place] [address] Aug, [facility] [address] [id number] [address] [place] [address], [place] [address] Aug, [facility] [address] [id number] [address] [place] [address], [place] [address] Aug, [facility] [address] [id number] [address] [place] [address], [place] [address] Jul, [facility] [address] [id number] [address] [place] [address], [place] [address] Jul, [facility] [address] [id number] [address] [place] [address], [place] [address] Jul, [facility] [address] [id number] [address] [place] [address], [place] [address] Jul, [facility] [address] [id number] [address] [place] [address], [place] [address] Jul, [facility] [address] [id number] [address] [place] [address], [place] [address] Jul, [facility] [address] [id number] [address] [place] [address], [place] [address] Jul, [facility] [address] [id number] [address] [place] [address], [place] [address] Jul, [facility] [address] [id number] [address] [place] [address], [place] [address] Jul, [facility] [address] [id number] [address] [place] [address], [place] [address] Jul, [facility] [address] [id number] [address] [place] [address], [place] [address] Jul, [facility] [address] [id number] [address] [place] [address], [place] [address] Jul, [facility] [address] [id number] [address] [place] [address], [place] [address] Jul, [facility] [address] [id number] [address] [place] [address], [place] [address] Jul, [facility] [address] [id number] [address] [place] [address], [place] [address] Jul, 2013 [facility] [address] [id number] [address] [place] [address], [place] [address] Jul, 2013 [facility] [address] [id number] [address] [place] [address], [place] [address] Jul, [facility] [address] [id number] [address] [place] [address], [place] [address] Jul, [facility] [address] [id number] [address] [place] [address], [place] [address] Jul, [facility] [address] [id number] [address] [place] [address], [place] [address] Jul, [facility] [address] [id number] [address] [place] [address], [place] [address] Jul, [facility] [address] [id number] [address] [place] [address], [place] [address] Jul, [facility] [address] [id number] [address] [place] [address], [place] [address] 29 Jun, 2013 [facility] [address] [id number] [address] [place] [address], [place] [address] 29 Sep, 2013 [facility] [address] [id number] [address] [place] [address], [place] [address] 17 Sep, 2013 [facility] [address] [id number] [address] [place] [address], [place] [address] 17 Jun, 2013 [facility] [address] [id number] [address] [place] [address], [place] [address] 05 Sep, 2013 [facility] [address] [id number] [address] [place] [address], [place] [address] Jun, 2013 [facility] [address] [id number] [facility] [place] [address] Jun, 2013 [facility] [address] [id number] [address] [place] [address], [place] [address] Jun, [facility] [address] [id number] [address] [place] [address], [place] [address] Jun, 2013 [facility] [address] [id number] [address] [place] [address], [place] [address] Jun, [facility] [address] [id number] [address] [place] [address], [place] [address] May, [facility] [address] [id number] [address] [place] [address], [place] [address] May, [facility] [address] [id number] [address] [place] [address], [place] [address] May, [facility] [address] [id number] [address] [place] [address], [place] [address] May, [facility] [address] [id number] [address] [place] [address], [place] [address] May, [facility] [address] [id number] [address] [place] [address], [place] [address] May, [facility] [address] [id number] [address] [place] [address], [place] [address] May, [facility] [address] [id number] [address] [place] [address], [place] [address] May, [facility] [address] [id number] [address] [place] [address], [place] [address] Apr, [facility] [address] [id number] [address] [place] [address], [place] [address] Apr, [facility] [address] [id number] [address] [place] [address], [place] [address] Apr, [facility] [address] [id number] [facility] [place] [address] Apr, [facility] [address] [id number] [address] [place] [address], [place] [address] Apr, [facility] [address] [id number] [address] [place] [address], [place] [address] Apr, [facility] [address] [id number] [address] [place] [address], [place] [address] Mar, [facility] [address] [id number] [address] [place] [address], [place] [address] Mar, [facility] [address] [id number] [address] [place] [address], [place] [address] Mar, [facility] [address] [id number] [address] [place] [address], [place] [address] Mar, [facility] [address] [id number] [address] [place] [address], [place] [address] Mar, [facility] [address] [id number] [address] [place] [address], [place] [address] Mar, [facility] [address] [id number] [address] [place] [address], [place] [address] Mar, [facility] [address] [id number] [address] [place] [address], [place] [address] Mar, [facility] [address] [id number] [address] [place] [address], [place] [address] February, [facility] [address] [id number] [address] [place] [address], [place] [address] February, [facility] [address] [id number] [address] [place] [address], [place] [address] February, [facility] [address] [id number] [address] [place] [address], [place] [address] February, [facility] [address] [id number] [address] [place] [address], [place] [address] February, [facility] [address] [id number] [address] [place] [address], [place] [address] Jan, [facility] [address] [id number] [address] [place] [address], [place] [address] Jan, [facility] [address] [id number] [address] [place] [address], [place] [address] Nov, [facility] [address] [id number] [address] [place] [address], [place] [address] Nov, [facility] [address] [id number] [address] [place] [address], [place] [address] Nov, [facility] [address] [id number] [address] [place] [address], [place] [address] Nov, [facility] [address] [id number] [address] [place] [address], [place] [address] Nov, [facility] [address] [id number] [address] [place] [address], [place] [address] Nov, [facility] [address] [id number] [address] [place] [address], [place] [address] Oct, [facility] [address] [id number] [address] [place] [address], [place] [address] Oct, [facility] [address] [id number] [address] [place] [address], [place] [address] Oct, [facility] [address] [id number] [address] [place] [address], [place] [address] Sep, [facility] [address] [id number] [address] [place] [address], [place] [address] Sep, [facility] [address] [id number] [address] [place] [address], [place] [address] Aug, [facility] [address] [id number] [address] [place] [address], [place] [address] Aug, [facility] [address] [id number] [address] [place] [address], [place] [address] Aug, [facility] [address] [id number] [address] [place] [address], [place] [address] Aug, [facility] [address] [id number] [address] [place] [address], [place] [address] Jul, [facility] [address] [id number] [address] [place] [address], [place] [address] Jul, [facility] [address] [id number] [address] [place] [address], [place] [address] Jul, [facility] [address] [id number] [address] [place] [address], [place] [address] Jul, [facility] [address] [id number] [address] [place] [address], [place] [address] Jul, [facility] [address] [id number] [address] [place] [address], [place] [address] Jun, [facility] [address] [id number] [address] [place] [address], [place] [address] Jun, [facility] [address] [id number] [address] [place] [address], [place] [address] May, [facility] [address] [id number] [address] [place] [address], [place] [address] May, [facility] [address] [id number] [address] [place] [address], [place] [address] May, [facility] [address] [id number] [address] [place] [address], [place] [address] May, [facility] [address] [id number] [address] [place] [address], [place] [address] May, [facility] [address] [id number] [address] [place] [address], [place] [address] May, [facility] [address] [id number] [address] [place] [address], [place] [address] Apr, [facility] [address] [id number] [address] [place] [address], [place] [address] Apr, [facility] [address] [id number] [address] [place] [address], [place] [address] Apr, [facility] [address] [id number] [address] [place] [address], [place] [address] Apr, [facility] [address] [id number] [address] [place] [address], [place] [address] Apr, [facility] [address] [id number] [address] [place] [address], [place] [address] Mar, [facility] [address] [id number] [address] [place] [address], [place] [address] Mar, [facility] [address] [id number] [address] [place] [address], [place] [address] Mar, [facility] [address] [id number] [address] [place] [address], [place] [address] February, [facility] [address] [id number] [address] [place] [address], [place] [address] February, [facility] [address] [id number] [address] [place] [address], [place] [address] February, [facility] [address] [id number] [address] [place] [address], [place] [address] Dec, [facility] [address] [id number] [address] [place] [address], [place] [address] Dec, [facility] [address] [id number] [address] [place] [address], [place] [address] Dec, [facility] [address] [id number] [address] [place] [address], [place] [address] Oct, [facility] [address] [id number] [address] [place] [address], [place] [address] Oct, [facility] [address] [id number] [address] [place] [address], [place] [address] Sep, [facility] [address] [id number] [address] [place] [address], [place] [address] Sep, [facility] [address] [id number] [address] [place] [address], [place] [address] Aug, [facility] [address] [id number] [address] [place] [address], [place] [address] Aug, [facility] [address] [id number] [address] [place] [address] Aug, [facility] [address] [id number] [address] [place] [address], [place] [address] Aug, [facility] [address] [id number] [address] [place] [address], [place] [address] Aug, [facility] [address] [id number] [address] [place] [address], [place] [address] Aug, [facility] [address] [id number] [address] [place] [address], [place] [address] Jul, [facility] [address] [id number] [address] [place] [address], [place] [address] Jul, [facility] [address] [id number] [address] [place] [id number] Jul, [facility] [address] [id number] [address] [place] [id number] Jul, [facility] [address] [id number] [address] [place] [id number] Jul, [facility] [address] [id number] [address] [place] [address], [place] [address] Jul, [facility] [address] [id number] [address] [place] [address], [place] [address] Jun, [facility] [address] [id number] [address] [place] [address], [place] [address] Jun, [facility] [address] [id number] [address] [address] 15 Jun, 2012 [facility] [address] [facility] [id number] [address], [place] [address] 15 Jun, 2012 IMMUNIZATIONS No Known Immunizations [...] History had loop recorder removed from chest 2014 Surgical History right knee surgery 06/21/2017 Surgical History left knee 07/31/2017 Surgical History Colonoscopy 04/2018 Surgical History stint in both legs 02/2019 Hospitalization History surgeries Hospitalization History [facility]- Viral infection Aug 26 Hospitalization History [facility]- Flu Sx 12/10/2016 Hospitalization History [facility]- Congestion, runny n ose and abd pain 12/21/2017
--- OUTSIDE RECORDS SUMMARY | 2020-05-11 18:36 | XMS REPORT ---
Author Author Suman Rodriguez Doctor Organization [facility] Address Unknown Phone Unavailable Care Team Providers Care Sound Tester Name Role Phone Migration, Doctor Unavailable Unavailable PROBLEMS Type Condition ICD9-CM Code NBZ01-JK Code Onset Dates Condition S tatus SNOMED Code Problem Coronary artery disease invo lving [place] heart, angina presence unspecified, unspecified vessel or lesion type I25.10 Active 70989065 Problem LAURY (obstructive sleep apnea) G47.33 Active 92224771 Problem Chronic obstructive pulmonary disease, unspecified COPD ty pe J44.9 Active 25054399 Problem Seizure disorder G40.909 Active 128 552832 Problem Erectile dysfunction, unspecified erectile dysfunction typ e N52.9 Active 960318171 Problem Other chronic pain G89.29 Active 8 5036135 Problem Tobacco abuse Z72.0 Active 142638 05 Problem Non morbid obesity E66.9 Active 4 78356435 Problem Non morbid obesity due to excess calories E66.09 Active 152292175 Problem Other obesity due to excess calories E66.09 Active 072775567 Problem Panlobular emphysema J43.1 Active 5387405 Problem COPD exacerbation J44.1 Active 19 5041720 Problem COPD with acute exacerbation J44.1 A ctive 620970017 Problem 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 Active [id number] 7 Problem Chronic major depressive disorder, recurrent episode F33.9 Active 98574197 Problem RLS (restless legs syndrome) G25.81 A ctive 58178761 Problem Recurrent major depressive disorder, remission s tatus unspecified F33.9 Active 20305468 Problem Morbid obesity due to excess calories E66.01 Active 318540594 Problem Flexural eczema L20.82 Active 5709 2006 Problem Hypertension, benign I10 Active 73622099 Problem Palpitations R00.2 Active 5626353 2 Problem Restless leg syndrome G25.81 Active 70205580 Problem Primary insomnia F51.01 Active 397 2004 Problem Atherosclerotic heart diseas e of [place] coronary artery with other forms of angina pectoris I25.118 Active 779228161 Problem Type 2 diabetes mellitus wit hout complication, unspecified whether pallet stone positioner insulin use E11.9 Active [id number] ALLERGIES No Information ENCOUNTERS Encounter Location Date Diagnosis [facility] [place] [address] [facility] [id number] [address] [place] [address] Mar, Chronic obstructive pulmonar y disease, unspecified COPD type J44.9 ; Flexural eczema L20.82 ; Type 2 diabetes mellitus without complication, unspecified whether pallet stone positioner insulin use E11.9 and Recurrent major depressive disorder, remission status unspecified F33.9 [facility] [address] [place] [id number] [address] [place] [address] Mar, COPD exacerbation J44.1 [place] [address] [place] [id number] [place] [phone] February, [place] [address] [address] February, [place] [address] [address] February, Chronic obstructive pulmonar y disease, unspecified COPD type J44.9 ; Tobacco abuse Z72.0 ; Tobacco abuse counseling Z71.6 and Primary insomnia F51.01 [place] [address] [place] [id number] [address] [place] [address] February, [place] [address] [place] [id number] [address] [place] [address] February, Chronic obstructive pulmonar y disease, unspecified COPD type J44.9 and Coronary artery disease involving [place] heart, angina presence unspecified, unspecified vessel or lesion type I25.10 [place] [address] [place] [id number] [address] [place] [address] February, [facility] [address] [place] [id number] [address] [place] [address] February, Right leg swelling M79.89 [place] [address] [place] [id number] [address] [place] [address] Jan, Dependent edema R60.9 [facility] [address] [id number] [address] [place] [phone] Jan, Dependent edema R60.9 [facility] [place] [address] [id number] [address] [place] [address] Jan, Hyperglycemia R73.9 and Loca lized edema R60.0 [facility] [place] [address] [id number] [address] [place] [address] Jan, [facility] [place] [address] [id number] [address] [place] [phone] Jan, Counseled by nurse Z71.9 [facility] [place] [address] [id number] [address] [place] [address] Jan, Hyperglycemia R73.9 and Loca lized edema R60.0 [facility] [place] [address] [id number] [address] [place] [id number] Jan, [facility] [place] [address] [id number] [address] [place] [phone] Jan, [facility] [place] [address] [id number] [address] [place] [phone] Jan, Hyperglycemia R73.9 [facility] [place] [address] [id number] [address] [place] [address] Jan, Hyperglycemia R73.9 [facility] [place] [address] [id number] [address] [place] [address] Jan, Coronary artery disease invo lving [place] heart, angina presence unspecified, unspecified vessel or lesion type I25.10 and Localized edema R60.0 [facility] [place] [address] [id number] [address] [place] [address] Jan, [facility] [place] [address] [id number] [address] [place] [address] Jan, Coronary artery disease invo lving [place] heart, angina presence unspecified, unspecified vessel or lesion type I25.10 and Localized edema R60.0 [facility] [place] [id number] [address] 14 Jan, 2020 Bilateral edema of lower ext remity R60.0 and SOB (shortness of breath) R06.02 [place] [address] [address] 05 Dec, 2019 Chronic obstructive pulmonar y disease, unspecified COPD type J44.9 ; Non morbid obesity due to excess calories E66.09 ; Seizure disorder G40.909 ; Atherosclerotic heart disease of [place] coronary artery with other forms of angina pectoris I25.118 ; Other chronic pain G89.29 ; Pain in right knee M25.561 and RLS (restless legs syndrome) G25.81 [facility] WALK IN [place] [address] [address] 20 Nov, 2019 COPD exacerbation J44.1 and Cough R05 [place] [address] [address] Nov, [place] [address] [address] Nov, Chronic obstructive pulmonar y disease, unspecified COPD type J44.9 [place] [address] [address] Nov, [facility] [place] [address] [address] Oct, COPD exacerbation J44.1 and Tobacco abuse Z72.0 [place] [address] [address] Oct, [place] [address] [address] Oct, Right knee pain, unspecified chronicity M25.561 [place] [address] [address] Sep, Restless leg syndrome G25.81 and Primary insomnia F51.01 [facility] IN [facility] [address] [address] Sep, Chronic obstructive pulmonar y disease, unspecified COPD type J44.9 and COPD exacerbation J44.1 [place] [address] [address] Sep, RLS (restless legs syndrome) G25.81 [place] [address] [address] Aug, Other chronic pain G89.29 ; Pain in right knee M25.561 ; Seizures R56.9 ; Coronary artery disease of [place] artery of [place] heart with stable angina pectoris I25.118 and Chronic major depressive disorder, recurrent episode F33.9 [facility] IN [place] [address] [address] Jul, Right knee pain, unspecified chronicity M25.561 [place] [address] [address] Jul, [place] [address] [address] Jul, Foot pain, right M79.671 ; M orbid obesity due to excess calories E66.01 ; Seizures R56.9 and Encounter for immunization Z23 [place] [id number] [place] [address] Jun, [place] [address] [place] [id number] [place] [address] Jun, Non morbid obesity due to ex cess calories E66.09 and Foot callus L84 [place] [address] [place] [id number] [address] [place] [address] May, [facility] IN [facility] [address] [place] [id number] [address] [place] [phone] May, Flank pain R10.9 [facility] [place] [address] [id number] [address] [place] [phone] May, Focal seizures R56.9 [facility] [place] [address] [id number] [address] [place] [address] May, COPD exacerbation J44.1 and Non morbid obesity E66.9 [facility] [place] [address] [id number] [address] [place] [address] May, Seizure disorder G40.909 [facility] [place] [address] [id number] [address] [place] [address] May, [facility] [place] [address] [facility] [id number] [address] [place] [phone] May, [facility] [place] [address] [facility] [id number] [address] [place] [address] May, Abscess of left foot L02.612 [facility] [place] [address] [facility] [id number] [address] [place] [address] Apr, Cellulitis of left lower ext remity L03.116 [facility] [place] [address] [id number] [address] [place] [address] Apr, [facility] [place] [address] [facility] [id number] [address] [place] [address] Apr, [facility] [address] [facility] [id number] [address] [place] [address] Apr, Cellulitis of left foot L03. 116 [facility] [place] [address] [facility] [place] [id number] [address] [place] [address] Apr, Chronic obstructive pulmonar y disease, unspecified COPD type J44.9 and Seizures R56.9 [facility] [place] [address] [facility] [id number] [address] [place] [id number] Mar, [facility] [place] [address] [facility] [id number] [address] [place] [address] Mar, [facility] [place] [address] [address] Mar, [facility] [place] [address] [address] February, [facility] [place] [address] [place] [id number] [place] [phone] February, [place] [address] [address] Jan, [facility] [address] [place] [id number] [place] [address] Aug, Wheezes R06.2 and Pneumonia J18.9 [place] [address] [address] Aug, Erectile dysfunction, unspec ified erectile dysfunction type N52.9 [place] [address] [address] Aug, Non morbid obesity E66.9 [facility] IN [facility] [address] [address] Jul, [facility] IN [facility] [address] [address] Jul, Testicular swelling, right N 50.89 [place] [address] [address] Jul, Callus L84 [place] [address] [address] Jun, Non morbid obesity E66.9 ; C OPD exacerbation J44.1 ; 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 and Dermatofibroma D23.9 [place] [address] [place] [id number] [place] [address] May, Non morbid obesity E66.9 and Grade II hemorrhoids K64.1 [place] [address] [address] Mar, [place] [id number] [place] [id number] [address] [place] [address] Mar, Cough 786.2 ; Medicare annua l wellness visit, initial Z00.00 ; Morbid obesity due to excess calories E66.01 ; Chronic obstructive pulmonary disease, unspecified COPD type J44.9 ; Coronary artery disease involving [place] heart, angina presence unspecified, unspecified vessel or lesion type I25.10 ; Hypertension, benign I10 and LAURY (obstructive sleep apnea) G47.33 [place] [address] [facility] [id number] [address] [place] [address] 31 Feb, 2018 Medicare annual wellness vis it, initial Z00.00 ; Morbid obesity due to excess calories E66.01 ; Chronic obstructive pulmonary disease, unspecified COPD type J44.9 ; Coronary artery disease involving [place] heart, angina presence unspecified, unspecified vessel or lesion type I25.10 ; Hypertension, benign I10 ; LAURY (obstructive sleep apnea) G47.33 ; Family history of colon cancer Z80.0 ; Other chronic pain G89.29 and Pain in right hip M25.551 [place] [address] [place] [id number] [address] [place] [address] Jan, [place] [address] [place] [id number] [place] [phone] Nov, Panlobular emphysema J43.1 [place] [address] [facility] [id number] [address] [place] [address] Nov, COPD exacerbation J44.1 [place] [address] [facility] [id number] [address] [place] [address] 15 Nov, 2017 Viral URI J06.9 [place] [address] [place] [id number] [address] [place] [address] Nov, [place] [address] [place] [id number] [address] [place] [address] Nov, [place] [address] [address] Sep, Other obesity due to excess calories E66.09 and Body mass index (BMI) of 36.0-36.9 in adult Z68.36 [facility] [place] [address] [facility] [id number] [address] [place] [address] Aug, [facility] [place] [address] [facility] [id number] [address] [place] [address] Aug, [facility] [place] [id number] [place] [address] Aug, Coronary artery disease invo lving [place] heart, angina presence unspecified, unspecified vessel or lesion type I25.10 and Chronic obstructive pulmonary disease, unspecified COPD type J44.9 [facility] [address] [facility] [id number] [address] [place] [address] Jul, COPD with acute exacerbation J44.1 [place] [address] [facility] [id number] [address] [place] [address] Jul, Non morbid obesity E66.9 [place] [address] [place] [id number] [address] [place] [address] Jun, Panlobular emphysema J43.1 ; Tobacco abuse Z72.0 ; Tobacco abuse counseling Z71.6 and Non morbid obesity E66.9 [place] [address] [facility] [id number] [address] [place] [address] Apr, [place] [address] [place] [id number] [address] [place] [address] Apr, [facility] [place] [address] [facility] [id number] [address] [place] [address] Mar, COPD exacerbation J44.1 [place] [address] [facility] [id number] [address] [place] [address] Mar, Tear of medial meniscus of r ight knee, current, unspecified tear type, initial encounter S83.241A [place] [address] [place] [id number] [address] [place] [address] Mar, Pain in right knee M25.561 [facility] [address] [id number] [address] [place] [address] February, Pain in right knee M25.561 [facility] [place] [address] [id number] [address] [place] [address] February, Pain in right knee M25.561 [facility] [place] [address] [facility] [id number] [address] [place] [address] Dec, [facility] [place] [address] [facility] [id number] [address] [place] [address] Nov, [facility] [address] [facility] [id number] [address] [place] [address] Nov, Bronchitis J40 and Wheezing R06.2 [place] [address] [facility] [id number] [address] [place] [address] Oct, [facility] [place] [address] [facility] [id number] [address] [place] [address] Oct, [facility] [place] [address] [facility] [id number] [address] [place] [address] Oct, Non morbid obesity due to ex cess calories E66.09 ; Other chronic pain G89.29 and Pain in right knee M25.561 [facility] [place] [address] [facility] [id number] [address] [place] [address] Oct, Non morbid obesity due to ex cess calories E66.09 ; Other chronic pain G89.29 and Pain in right knee M25.561 [facility] [place] [address] [id number] [address] [place] [address] Oct, Pain in right knee M25.561 a nd Other chronic pain G89.29 [place] [id number] [facility] [id number] [address] [place] [address] Aug, Encounter for immunization Z 23 [place] [id number] [facility] [id number] [address] [place] [address] Aug, [facility] [place] [address] [facility] [id number] [address] [place] [address] Aug, [place] [address] [place] [id number] [address] [place] [address] Jun, Common wart B07.8 [facility] [address] [place] [id number] [address] [place] [address] May, Cellulitis of left elbow L03 .114 [place] [address] [facility] [id number] [address] [place] [address] Mar, Torticollis, acute M43.6 and Leg pain, left M79.605 [place] [address] [place] [id number] [address] [place] [address] February, Leg pain, left M79.605 [facility] [address] [address] Dec, COPD exacerbation J44.1 [place] [address] [address] Dec, [place] [address] [place] [id number] [address] [place] [address] Oct, Chronic obstructive pulmonar y disease, unspecified COPD type J44.9 and Hyperglycemia R73.9 [place] [address] [place] [id number] [address] [place] [address] Sep, Tobacco abuse Z72.0 ; Figueroa ry artery disease involving [place] heart, angina presence unspecified, unspecified vessel or lesion type I25.10 and Morbid obesity due to excess calories E66.01 [place] [address] [place] [id number] [address] [place] [address] Sep, [place] [address] [place] [id number] [address] [place] [address] Sep, Leg pain, left M79.605 [place] [address] [place] [id number] [address] [place] [address] Sep, [facility] [place] [address] [facility] [id number] [address] [place] [id number] Sep, [facility] [place], [facility] [address] [place] [id number] [address] [place] [id number] Aug, Essential (primary) hyperten autumn I10 [facility] [place], [facility] [address] [place] [id number] [place] [id number] Aug, Encounter for immunization Z 23 [facility] [place], [facility] [address] [place] [id number] [place] [phone] Aug, [facility] [place], [facility] [address] [place] [id number] [place] [phone] May, Chronic airway obstruction, not elsewhere classified 496 [facility] [place], [facility] [address] [place] [id number] [address] [place] [phone] May, [facility] [place], [facility] [address] [place] [id number] [address] [place] [id number] May, [facility] [place], [facility] [address] [place] [id number] [place] [id number] May, Acute bronchitis 466.0 [facility] [place] [facility] [address] [id number] [address] [place] [address] May, [facility] [place] [address] [id number] [address] [place] [address] May, Hyperglycemia 790.29 [facility] [place] [address] [facility] [id number] [address] [place] [id number] Apr, [facility] [place] [address] [id number] [address] [place] [address] Apr, Cough 786.2 ; Hyperglycemia 790.29 and COPD (chronic obstructive pulmonary disease) 496 [facility] [place] [address] [facility] [id number] [address] [place] [address] Mar, Cough 786.2 ; Elevated gluco se 790.29 ; Wheezing 786.07 ; COPD exacerbation 491.21 and Nicotine dependence 305.1 [facility] [place] [address] [id number] [address] [place] [id number] 16 Mar, 2015 High risk medication use V58 .69 [facility] [place] [address] [facility] [id number] [address] [place] [phone] 16 Mar, 2015 High risk medication use V58 .69 and Benign hypertension 401.1 [facility] [place] [address] [id number] [address] [place] [phone] 08 Mar, 2015 [facility] [place] [address] [id number] [address] [place] [id number] February, [facility] [place] [address] [facility] [id number] [address] [place] [id number] February, [facility] [place] [address] [facility] [id number] [address] [place] [id number] 30 Jan, 2015 [facility] [place] [address] [id number] [address] [place] [id number] 30 Jan, 2015 Benign hypertension 401.1 [facility] [place] [address] [facility] [id number] [address] [place] [phone] 14 Jan, 2015 [facility] [place] [address] [facility] [id number] [address] [place] [id number] 13 Jan, 2015 [facility] [place] [address] [facility] [id number] [address] [place] [phone] 27 Dec, 2014 [facility] [place] [address] [id number] [address] [place] [id number] 27 Dec, 2014 [facility] [place] [address] [facility] [id number] [address] [place] [id number] 26 Dec, 2014 [facility] [place] [address] [facility] [id number] [address] [place] [id number] 18 Dec, 2014 [facility] [place] [address] [facility] [id number] [address] [place] [id number] 18 Dec, 2014 [facility] [address] [id number] [address] [place] [address], [place] [address] 2014 [facility] [address] [id number] [address] [place] [address], [place] [address] 2014 [facility] [address] [id number] [address] [place] [address], [place] [address] Dec, [facility] [address] [id number] [address] [place] [address], [place] [address] Dec, [facility] [address] [id number] [address] [place] [address], [place] [address] Dec, [facility] [address] [id number] [address] [place] [address], [place] [address] Dec, [facility] [address] [id number] [address] [place] [address], [place] [address] Dec, [facility] [address] [id number] [address] [place] [address], [place] [address] Dec, [facility] [address] [id number] [address] [place] [address], [place] [address] Dec, [facility] [address] [id number] [address] [place] [address], [place] [address] Dec, [facility] [address] [id number] [address] [place] [address], [place] [address] Nov, [facility] [address] [id number] [address] [place] [address], [place] [address] Nov, 2014 [facility] [address] [id number] [address] [place] [address], [place] [address] Nov, [facility] [address] [id number] [address] [place] [address], [place] [address] Nov, [facility] [address] [id number] [address] [place] [address], [place] [address] Oct, [facility] [address] [id number] [address] [place] [id number] Oct, [facility] [address] [id number] [address] [place] [address], [place] [address] Oct, [facility] [address] [id number] [address] [place] [address], [place] [address] Oct, [facility] [address] [id number] [address] [place] [address], [place] [address] Oct, [facility] [address] [id number] [address] [place] [address], [place] [address] Oct, [facility] [address] [id number] [address] [place] [address], [place] [address] Oct, [facility] [address] [id number] [address] [place] [address], [place] [address] Oct, [facility] [address] [id number] [address] [place] [address], [place] [address] Sep, [facility] [address] [id number] [address] [place] [address], [place] [address] Sep, [facility] [address] [id number] [address] [place] [address], [place] [address] Sep, [facility] [address] [id number] [address] [place] [address], [place] [address] Sep, [facility] [address] [id number] [address] [place] [address], [place] [address] Sep, [facility] [address] [id number] [address] [place] [address], [place] [address] Sep, [facility] [address] [id number] [address] [place] [address], [place] [address] Sep, [facility] [address] [id number] [address] [place] [address], [place] [address] Sep, [facility] [address] [id number] [address] [place] [address], [place] [address] Aug, [facility] [address] [id number] [address] [place] [address], [place] [address] Aug, [facility] [address] [id number] [address] [place] [address], [place] [address] Aug, [facility] [address] [id number] [address] [place] [address], [place] [address] Aug, [facility] [address] [id number] [address] [place] [address], [place] [address] Jul, [facility] [address] [id number] [address] [place] [address], [place] [address] Jul, [facility] [address] [id number] [address] [place] [address], [place] [address] Jul, [facility] [address] [id number] [address] [place] [address], [place] [address] Jul, [facility] [address] [id number] [address] [place] [address], [place] [address] Jul, [facility] [address] [id number] [address] [place] [address], [place] [address] Jul, [facility] [address] [id number] [address] [place] [address], [place] [address] Jul, [facility] [address] [id number] [address] [place] [address], [place] [address] Jul, [facility] [address] [id number] [address] [place] [address], [place] [address] Jul, [facility] [address] [id number] [address] [place] [address], [place] [address] Jul, [facility] [address] [id number] [address] [place] [address], [place] [address] Jul, [facility] [address] [id number] [address] [place] [address], [place] [address] Jul, [facility] [address] [id number] [address] [place] [address], [place] [address] Jul, [facility] [address] [id number] [address] [place] [address], [place] [address] Jul, [facility] [address] [id number] [address] [place] [address], [place] [address] Jul, [facility] [address] [id number] [address] [place] [address], [place] [address] Jul, [facility] [address] [id number] [address] [place] [address], [place] [address] Jul, [facility] [address] [id number] [address] [place] [address], [place] [address] Jul, [facility] [address] [id number] [address] [place] [address], [place] [address] Jul, [facility] [address] [id number] [address] [place] [address], [place] [address] Jul, [facility] [address] [id number] [address] [place] [address], [place] [address] Jul, [facility] [address] [id number] [address] [place] [address], [place] [address] Jul, [facility] [address] [id number] [address] [place] [address], [place] [address] 29 Jun, 2013 [facility] [address] [id number] [address] [place] [address] 29 Sep, 2013 [facility] [address] [id number] [address] [place] [id number] 17 Sep, 2013 [facility] [address] [id number] [address] [place] [address], [place] [address] 17 Sep, 2013 [facility] [address] [id number] [address] [place] [address], [place] [address] 05 Sep, 2013 [facility] [address] [id number] [address] [place] [address], [place] [address] 05 Sep, 2013 [facility] [address] [id number] [facility] [place] [address] Jun, 2013 [facility] [address] [id number] [address] [place] [address], [place] [address] Jun, 2013 [facility] [address] [id number] [address] [place] [address], [place] [address] Jun, [facility] [address] [id number] [address] [place] [address], [place] [address] Jun, [facility] [address] [id number] [address] [place] [address], [place] [address] May, [facility] [address] [id number] [address] [place] [address], [place] [address] May, [facility] [address] [id number] [address] [place] [address], [place] [address] May, [facility] [address] [id number] [address] [place] [address], [place] [address] May, [facility] [address] [id number] [address] [place] [address], [place] [address] May, [facility] [address] [id number] [address] [place] [address], [place] [address] May, [facility] [address] [id number] [address] [place] [address], [place] [address] May, [facility] [address] [id number] [address] [place] [address], [place] [address] May, [facility] [address] [id number] [address] [place] [address], [place] [address] Apr, [facility] [address] [id number] [address] [place] [address], [place] [address] Apr, [facility] [address] [id number] [address] [place] [address], [place] [address] Apr, [facility] [address] [id number] [address] [place] [address], [place] [address] Apr, [facility] [address] [id number] [address] [place] [address], [place] [address] Apr, [facility] [address] [id number] [address] [place] [address], [place] [address] Apr, [facility] [address] [id number] [address] [place] [address], [place] [address] Mar, [facility] [address] [id number] [address] [place] [address], [place] [address] Mar, [facility] [address] [id number] [address] [place] [address], [place] [address] Mar, [facility] [address] [id number] [address] [place] [address], [place] [address] Mar, [facility] [address] [id number] [address] [place] [address], [place] [address] Mar, [facility] [address] [id number] [address] [place] [address], [place] [address] Mar, [facility] [address] [id number] [address] [place] [address], [place] [address] Mar, [facility] [address] [id number] [address] [place] [address], [place] [address] Mar, [facility] [address] [id number] [address] [place] [address], [place] [address] February, [facility] [address] [id number] [address] [place] [address], [place] [address] February, [facility] [address] [id number] [address] [place] [address], [place] [address] February, [facility] [address] [id number] [address] [place] [address], [place] [address] February, [facility] [address] [id number] [address] [place] [address], [place] [address] February, [facility] [address] [id number] [address] [place] [address], [place] [address] Jan, [facility] [address] [id number] [address] [place] [address], [place] [address] Jan, [facility] [address] [id number] [address] [place] [address], [place] [address] Nov, [facility] [address] [id number] [address] [place] [address], [place] [address] Nov, [facility] [address] [id number] [address] [place] [address], [place] [address] Nov, [facility] [address] [id number] [address] [place] [address], [place] [address] Nov, [facility] [address] [id number] [address] [place] [address], [place] [address] Nov, [facility] [address] [id number] [address] [place] [address], [place] [address] Nov, [facility] [address] [id number] [address] [place] [address], [place] [address] Oct, [facility] [address] [id number] [address] [place] [address], [place] [address] Oct, [facility] [address] [id number] [address] [place] [address], [place] [address] Oct, [facility] [address] [id number] [address] [place] [address], [place] [address] Sep, [facility] [address] [id number] [address] [place] [address] Sep, [facility] [address] [id number] [address] [place] [address], [place] [address] Aug, [facility] [address] [id number] [address] [place] [address], [place] [address] Aug, [facility] [address] [id number] [address] [place] [address], [place] [address] Aug, [facility] [address] [id number] [address] [place] [address], [place] [address] Aug, [facility] [address] [id number] [address] [place] [address], [place] [address] Jul, [facility] [address] [id number] [address] [place] [address], [place] [address] Jul, [facility] [address] [id number] [address] [place] [address], [place] [address] Jul, [facility] [address] [id number] [address] [place] [address], [place] [address] Jul, [facility] [address] [id number] [address] [place] [address], [place] [address] Jul, [facility] [address] [id number] [address] [place] [address], [place] [address] Jun, [facility] [address] [id number] [address] [place] [address], [place] [address] Jun, [facility] [address] [id number] [address] [place] [address], [place] [address] May, [facility] [address] [id number] [address] [place] [address], [place] [address] May, [facility] [address] [id number] [address] [place] [address], [place] [address] May, [facility] [address] [id number] [address] [place] [address], [place] [address] May, [facility] [address] [id number] [address] [place] [address], [place] [address] May, [facility] [address] [id number] [address] [place] [address], [place] [address] May, [facility] [address] [id number] [address] [place] [address], [place] [address] Apr, [facility] [address] [id number] [address] [place] [address], [place] [address] Apr, [facility] [address] [id number] [address] [place] [address], [place] [address] Apr, [facility] [address] [id number] [address] [place] [address], [place] [address] Apr, [facility] [address] [id number] [address] [place] [address], [place] [address] Apr, [facility] [address] [id number] [address] [place] [address], [place] [address] Mar, [facility] [address] [id number] [address] [place] [address], [place] [address] Mar, [facility] [address] [id number] [address] [place] [address], [place] [address] Mar, [facility] [address] [id number] [address] [place] [address], [place] [address] February, [facility] [address] [id number] [address] [place] [address], [place] [address] February, [facility] [address] [id number] [address] [place] [address], [place] [address] February, [facility] [address] [id number] [address] [place] [address], [place] [address] Dec, [facility] [address] [id number] [address] [place] [address], [place] [address] Dec, [facility] [address] [id number] [address] [place] [address], [place] [address] Dec, [facility] [address] [id number] [address] [place] [address], [place] [address] Oct, [facility] [address] [id number] [address] [place] [address], [place] [address] Oct, [facility] [address] [id number] [address] [place] [address], [place] [address] Sep, [facility] [address] [id number] [address] [place] [address], [place] [address] Sep, [facility] [address] [id number] [address] [place] [address], [place] [address] Aug, [facility] [address] [id number] [address] [place] [address], [place] [address] Aug, [facility] [address] [id number] [address] [place] [address], [place] [address] Aug, [facility] [address] [id number] [address] [place] [address], [place] [address] Aug, [facility] [address] [id number] [address] [place] [address], [place] [address] Aug, [facility] [address] [id number] [address] [place] [address], [place] [address] Aug, [facility] [address] [id number] [address] [place] [address], [place] [address] Jul, [facility] [address] [id number] [address] [place] [address], [place] [address] Jul, [facility] [address] [id number] [address] [place] [address], [place] [address] Jul, [facility] [address] [id number] [address] [place] [address], [place] [address] Jul, [facility] [address] [id number] [address] [place] [address], [place] [address] Jul, [facility] [address] [id number] [address] [place] [address], [place] [address] Jul, [facility] [address] [id number] [address] [place] [address], [place] [address] Jun, [facility] [address] [id number] [address] [place] [address], [place] [address] Jun, [facility] [address] [id number] [address] [place] [address], [place] [address] 15 Jun, 2012 [facility] [place] [address] [facility] [id number] [address] [place] [address] 15 Jun, 2012 IMMUNIZATIONS No Known Immunizations [...] legs 02/2019 Hospitalization History surgeries Hospitalization History [facility]- Viral infection Aug 26 Hospitalization History [facility]- Flu Sx 12/10/2016 Hospitalization History [facility]- Congestion, runny n ose and abd pain 12/21/2017
--- OUTSIDE RECORDS SUMMARY | 2020-05-11 18:36 | XMS REPORT ---
Author Author Suman CARDOZA Organization [facility] Address [address] [place] [address] Care Team Providers Care Household Worker Name Role Phone RENETTA CARDOZA Unavailable PROBLEMS Type Condition ICD9-CM Code PMH68-OP Code Onset Dates Condition S tatus SNOMED Code Problem Coronary artery disease invo lving coquille heart, angina presence unspecified, unspecified vessel or lesion type I25.10 Active 11079094 Problem LAURY (obstructive sleep apnea) G47.33 Active 12362899 Problem Chronic obstructive pulmonary disease, unspecified COPD ty pe J44.9 Active 62581151 Problem Seizure disorder G40.909 Active 128 724909 Problem Erectile dysfunction, unspecified erectile dysfunction typ e N52.9 Active 143207224 Problem Other chronic pain G89.29 Active 8 1070916 Problem Tobacco abuse Z72.0 Active 792391 05 Problem Non morbid obesity E66.9 Active 4 10140806 Problem Non morbid obesity due to excess calories E66.09 Active 680402673 Problem Other obesity due to excess calories E66.09 Active 045928480 Problem Panlobular emphysema J43.1 Active 3740252 Problem COPD exacerbation J44.1 Active 19 9241647 Problem COPD with acute exacerbation J44.1 A ctive 076584109 Problem 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 Active [id number] 7 Problem Chronic major depressive disorder, recurrent episode F33.9 Active 66193859 Problem RLS (restless legs syndrome) G25.81 A ctive 48457004 Problem Recurrent major depressive disorder, remission s tatus unspecified F33.9 Active 40877581 Problem Morbid obesity due to excess calories E66.01 Active 164072958 Problem Flexural eczema L20.82 Active 5709 2006 Problem Hypertension, benign I10 Active 24871655 Problem Palpitations R00.2 Active 9443620 2 Problem Restless leg syndrome G25.81 Active 43019678 Problem Primary insomnia F51.01 Active 397 2004 Problem Atherosclerotic heart diseas e of coquille coronary artery with other forms of angina pectoris I25.118 Active 129119887 Problem Type 2 diabetes mellitus wit hout complication, unspecified whether termination clerk insulin use E11.9 Active 435740848 ALLERGIES No Information ENCOUNTERS Encounter Location Date Diagnosis [facility] [address] [facility] [id number] [address] [place] [id number] 29 Mar, 2020 Chronic obstructive pulmonar y disease, unspecified COPD type J44.9 ; Flexural eczema L20.82 ; Type 2 diabetes mellitus without complication, unspecified whether [facility] insulin use E11.9 and Recurrent major depressive disorder, remission status unspecified F33.9 [facility] [address] [facility] [id number] [address] [place] [phone] 26 Mar, 2020 COPD exacerbation J44.1 [place] [id number] [facility] [id number] [address] [place] [phone] February, [facility] [address] [facility] [id number] [address] [place] [phone] February, [facility] [address] [facility] [id number] [address] [place] [address] February, Chronic obstructive pulmonar y disease, unspecified COPD type J44.9 ; Tobacco abuse Z72.0 ; Tobacco abuse counseling Z71.6 and Primary insomnia F51.01 [place] [id number] [facility] [id number] [address] [place] [address] February, [facility] [address] [facility] [id number] [address] [place] [phone] February, Chronic obstructive pulmonar y disease, unspecified COPD type J44.9 and Coronary artery disease involving coquille heart, angina presence unspecified, unspecified vessel or lesion type I25.10 [facility] [address] [facility] [id number] [address] [place] [phone] February, [facility] [address] [facility] [id number] [address] [place] [address] February, Right leg swelling M79.89 [facility] [address] [id number] [address] [place] [phone] Jan, Dependent edema R60.9 [facility] [address] [id number] [address] [place] [phone] Jan, Dependent edema R60.9 [facility] [address] [id number] [address] [place] [phone] Jan, Hyperglycemia R73.9 and Loca lized edema R60.0 [facility] [address] [id number] [address] [place] [phone] Jan, [facility] [address] [id number] [address] [place] [phone] Jan, Counseled by nurse Leroy71.9 [facility] [address] [id number] [address] [place] [phone] Jan, Hyperglycemia R73.9 and Loca lized edema R60.0 [facility] [address] [id number] [address] [place] [phone] Jan, [facility] [address] [id number] [address] [place] [id number] Jan, [facility] [address] [id number] [address] [place] [phone] Jan, Hyperglycemia R73.9 [facility] [address] [id number] [address] [place] [id number] Jan, Hyperglycemia R73.9 [facility] [address] [id number] [address] [place] [address] Jan, Coronary artery disease invo lving coquille heart, angina presence unspecified, unspecified vessel or lesion type I25.10 and Localized edema R60.0 [facility] [address] [id number] [address] [place] [phone] Jan, [facility] [address] [id number] [address] [place] [phone] 15 Jan, 2020 Coronary artery disease invo lving coquille heart, angina presence unspecified, unspecified vessel or lesion type I25.10 and Localized edema R60.0 [facility] [address] [place] [id number] [address] [place] [id number] 14 Jan, 2020 Bilateral edema of lower ext remity R60.0 and SOB (shortness of breath) R06.02 [place] [address] [id number] 05 Dec, 2019 Chronic obstructive pulmonar y disease, unspecified COPD type J44.9 ; Non morbid obesity due to excess calories E66.09 ; Seizure disorder G40.909 ; Atherosclerotic heart disease of coquille coronary artery with other forms of angina pectoris I25.118 ; Other chronic pain G89.29 ; Pain in right knee M25.561 and RLS (restless legs syndrome) G25.81 [facility] [address] [place] [id number] [address] [place] [phone] 20 Nov, 2019 COPD exacerbation J44.1 and Cough R05 [place] [address] [place] [id number] [address] [place] [phone] 20 Nov, 2019 [place] [address] [place] [id number] [address] [place] [phone] 06 Nov, 2019 Chronic obstructive pulmonar y disease, unspecified COPD type J44.9 [place] [address] [place] [id number] [address] [place] [phone] 03 Nov, 2019 [facility] [address] [place] [id number] [address] [place] [phone] 30 Oct, 2019 COPD exacerbation J44.1 and Tobacco abuse Z72.0 [place] [address] [place] [id number] [address] [place] [phone] 14 Oct, 2019 [place] [address] [place] [id number] [address] [place] [id number] 14 Oct, 2019 Right knee pain, unspecified chronicity M25.561 [place] [id number] [place] [address] Sep, Restless leg syndrome G25.81 and Primary insomnia F51.01 [facility] [address] [address] Sep, Chronic obstructive pulmonar y disease, unspecified COPD type J44.9 and COPD exacerbation J44.1 [place] [address] [address] Sep, RLS (restless legs syndrome) G25.81 [place] [address] [address] Aug, Other chronic pain G89.29 ; Pain in right knee M25.561 ; Seizures R56.9 ; Coronary artery disease of coquille artery of coquille heart with stable angina pectoris I25.118 and Chronic major depressive disorder, recurrent episode F33.9 [facility] [address] [address] Jul, Right knee pain, unspecified chronicity M25.561 [place] [address] [address] Jul, [place] [address] [address] Jul, Foot pain, right M79.671 ; M orbid obesity due to excess calories E66.01 ; Seizures R56.9 and Encounter for immunization Z23 [place] [address] [address] Jun, [place] [address] [address] Jun, Non morbid obesity due to ex cess calories E66.09 and Foot callus L84 [place] [address] [address] May, [facility] [address] [place] [address] May, Flank pain R10.9 [facility] [address] [facility] [id number] [address] [place] [phone] May, Focal seizures R56.9 [facility] [address] [facility] [id number] [address] [place] [phone] May, COPD exacerbation J44.1 and Non morbid obesity E66.9 [facility] [address] [id number] [address] [place] [phone] May, Seizure disorder G40.909 [facility] [address] [facility] [id number] [address] [place] [phone] May, [facility] [address] [facility] [id number] [address] [place] [phone] May, [facility] [address] [facility] [id number] [address] [place] [address] May, Abscess of left foot L02.612 [facility] [address] [facility] [id number] [address] [place] [address] Apr, Cellulitis of left lower ext remity L03.116 [facility] [address] [facility] [id number] [address] [place] [phone] Apr, [facility] [address] [facility] [id number] [address] [place] [phone] Apr, [facility] [address] [facility] [id number] [address] [place] [phone] Apr, Cellulitis of left foot L03. 116 [facility] [address] [facility] [id number] [address] [place] [phone] Apr, Chronic obstructive pulmonar y disease, unspecified COPD type J44.9 and Seizures R56.9 [facility] [address] [facility] [id number] [address] [place] [phone] Mar, [facility] [address] [facility] [id number] [address] [place] [phone] Mar, [facility] [address] [facility] [id number] [address] [place] [phone] Mar, [facility] [address] [facility] [id number] [address] [place] [phone] February, [facility] [address] [facility] [id number] [address] [place] [phone] February, [facility] [address] [facility] [id number] [address] [place] [phone] Jan, [facility] [address] [facility] [id number] [place] [address] Aug, Wheezes R06.2 and Pneumonia J18.9 [place] [address] [place] [id number] [place] [address] Aug, Erectile dysfunction, unspec ified erectile dysfunction type N52.9 [facility] [address] [place] [id number] [place] [address] Aug, Non morbid obesity E66.9 [facility] [address] [place] [id number] [place] [address] Jul, [facility] [address] [facility] [id number] [address] [place] [phone] Jul, Testicular swelling, right N 50.89 [facility] [address] [place] [id number] [place] [address] Jul, Callus L84 [facility] [address] [place] [id number] [address] [place] [address] Jun, Non morbid obesity E66.9 ; C OPD exacerbation J44.1 ; 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 and Dermatofibroma D23.9 [facility] [address] [facility] [id number] [address] [place] [address] May, Non morbid obesity E66.9 and Grade II hemorrhoids K64.1 [place] [address] [place] [id number] [address] [place] [phone] Mar, [place] [address] [address] Mar, Cough 786.2 ; Medicare annua l wellness visit, initial Z00.00 ; Morbid obesity due to excess calories E66.01 ; Chronic obstructive pulmonary disease, unspecified COPD type J44.9 ; Coronary artery disease involving coquille heart, angina presence unspecified, unspecified vessel or lesion type I25.10 ; Hypertension, benign I10 and LAURY (obstructive sleep apnea) G47.[address] [address] 31 Feb, 2018 Medicare annual wellness vis it, initial Z00.00 ; Morbid obesity due to excess calories E66.01 ; Chronic obstructive pulmonary disease, unspecified COPD type J44.9 ; Coronary artery disease involving coquille heart, angina presence unspecified, unspecified vessel or lesion type I25.10 ; Hypertension, benign I10 ; LAURY (obstructive sleep apnea) G47.33 ; Family history of colon cancer Z80.0 ; Other chronic pain G89.29 and Pain in right hip M25.551 [place] [address] [address] Jan, [place] [address] [address] Nov, Panlobular emphysema J43.1 [place] [address] [place] [id number] [address] [place] [phone] Nov, COPD exacerbation J44.1 [place] [address] [address] Nov, Viral URI J06.9 [place] [address] [place] [id number] [place] [address] Nov, [place] [address] [address] Nov, [facility] [address] [facility] [id number] [address] [place] [address] Sep, Other obesity due to excess calories E66.09 and Body mass index (BMI) of 36.0-36.9 in adult Z68.36 [facility] [address] [facility] [id number] [address] [place] [address] Aug, [facility] [address] [facility] [id number] [address] [place] [address] Aug, [facility] [address] [facility] [id number] [address] [place] [address] Aug, Coronary artery disease invo lving coquille heart, angina presence unspecified, unspecified vessel or lesion type I25.10 and Chronic obstructive pulmonary disease, unspecified COPD type J44.9 [facility] [address] [facility] [id number] [address] [place] [phone] Jul, COPD with acute exacerbation J44.1 [facility] [address] [facility] [id number] [address] [place] [address] Jul, Non morbid obesity E66.9 [place] [address] [facility] [id number] [address] [place] [address] Jun, Panlobular emphysema J43.1 ; Tobacco abuse Z72.0 ; Tobacco abuse counseling Z71.6 and Non morbid obesity E66.9 [facility] [address] [facility] [id number] [address] [place] [address] Apr, [facility] [address] [facility] [id number] [address] [place] [address] Apr, [place] [address] [place] [id number] [address] [place] [address] Mar, COPD exacerbation J44.1 [place] [address] [facility] [id number] [address] [place] [address] Mar, Tear of medial meniscus of r ight knee, current, unspecified tear type, initial encounter S83.241A [facility] [address] [id number] [address] [place] [address] Mar, Pain in right knee M25.561 [facility] [address] [id number] [address] [place] [address] February, Pain in right knee M25.561 [facility] [address] [facility] [id number] [address] [place] [address] February, Pain in right knee M25.561 [facility] [address] [id number] [address] [place] [address] Dec, [place] [address] [facility] [id number] [address] [place] [address] Nov, [facility] [address] [facility] [id number] [address] [place] [address] Nov, Bronchitis J40 and Wheezing R06.2 [place] [address] [facility] [id number] [address] [place] [address] Oct, [facility] [address] [facility] [id number] [address] [place] [address] Oct, [place] [address] [facility] [id number] [address] [place] [address] Oct, Non morbid obesity due to ex cess calories E66.09 ; Other chronic pain G89.29 and Pain in right knee M25.561 [facility] [address] [facility] [id number] [address] [place] [address] Oct, Non morbid obesity due to ex cess calories E66.09 ; Other chronic pain G89.29 and Pain in right knee M25.561 [facility] [address] [facility] [id number] [address] [place] [address] Oct, Pain in right knee M25.561 a nd Other chronic pain G89.29 [place] [id number] [facility] [id number] [address] [place] [address] Aug, Encounter for immunization Z 23 [facility] [address] [facility] [id number] [address] [place] [address] 09 Aug, 2016 [facility] [address] [place] [id number] [place] [address] 09 Aug, 2016 [facility] [address] [facility] [id number] [address] [place] [address] 02 Jun, 2016 Common wart B07.8 [facility] [address] [facility] [id number] [address] [place] [address] May, Cellulitis of left elbow L03 .114 [place] [address] [place] [id number] [place] [address] Mar, Torticollis, acute M43.6 and Leg pain, left M79.605 [place] [address] [place] [id number] [place] [address] February, Leg pain, left M79.605 [facility] [address] [place] [id number] [address] [place] [address] Dec, COPD exacerbation J44.1 [place] [address] [address] Dec, [facility] [address] [place] [id number] [place] [address] Oct, Chronic obstructive pulmonar y disease, unspecified COPD type J44.9 and Hyperglycemia R73.9 [facility] [address] [place] [id number] [place] [address] Sep, Tobacco abuse Z72.0 ; Figueroa ry artery disease involving coquille heart, angina presence unspecified, unspecified vessel or lesion type I25.10 and Morbid obesity due to excess calories E66.01 [facility] [address] [place] [id number] [place] [id number] 14 Sep, 2015 [facility] [address] [address] Sep, Leg pain, left M79.605 [facility] [address] [place] [id number] [address] [place] [address] Sep, [facility] [address] [place] [id number] [place] [address] Sep, [facility] [address] [address] Aug, Essential (primary) hyperten autumn I10 [facility] [address] [address] Aug, Encounter for immunization Z 23 [facility] [address] [address] Aug, [facility] [address] [address] May, Chronic airway obstruction, not elsewhere classified 496 [facility] [address] [address] May, [facility] [address] [address] May, [facility] [address] [address] May, Acute bronchitis 466.0 [facility] [address] [address] May, [facility] [address] [address] May, Hyperglycemia 790.29 [facility] [address] [address] Apr, [facility] [address] [address] Apr, Cough 786.2 ; Hyperglycemia 790.29 and COPD (chronic obstructive pulmonary disease) 496 [facility] [address] [address] 30 Mar, 2015 Cough 786.2 ; Elevated gluco se 790.29 ; Wheezing 786.07 ; COPD exacerbation 491.21 and Nicotine dependence 305.1 [facility] [address] [id number] [address] [place] [address] 16 Mar, 2015 High risk medication use V58 .69 [facility] [address] [facility] [id number] [address] [place] [phone] Mar, High risk medication use V58 .69 and Benign hypertension 401.1 [facility] [address] [id number] [address] [place] [phone] Mar, [facility] [address] [id number] [address] [place] [phone] February, [facility] [address] [facility] [id number] [address] [place] [phone] February, [facility] [address] [id number] [address] [place] [phone] Jan, [facility] [address] [id number] [address] [place] [id number] 30 Jan, 2015 Benign hypertension 401.1 [facility] [address] [facility] [id number] [address] [place] [phone] 14 Jan, 2015 [facility] [address] [id number] [address] [place] [phone] Jan, [facility] [address] [facility] [id number] [address] [place] [phone] Dec, [facility] [address] [id number] [address] [place] [phone] Dec, [facility] [address] [facility] [id number] [address] [place] [phone] Dec, [facility] [address] [facility] [id number] [address] [place] [phone] 18 Dec, 2014 [facility] [address] [id number] [address] [place] [address], [place] [phone] 18 Dec, 2014 [facility] [address] [id number] [address] [place] [address], [place] [id number] 2014 [facility] [address] [id number] [address] [place] [address], [place] [phone] 2014 [facility] [address] [id number] [address] [place] [address], [place] [id number] 13 Dec, 2014 [facility] [address] [id number] [address] [place] [address], [place] [id number] 13 Dec, 2014 [facility] [address] [id number] [address] [place] [address], [place] [address] 06 Dec, 2014 [facility] [address] [id number] [address] [place] [address], [place] [address] 06 Dec, 2014 [facility] [address] [id number] [address] [place] [address], [place] [address] 05 Dec, 2014 [facility] [address] [id number] [address] [place] [address], [place] [address] 05 Dec, 2014 [facility] [address] [id number] [address] [place] [address], [place] [address] Dec, [facility] [address] [id number] [address] [place] [address], [place] [address] Dec, [facility] [address] [id number] [address] [place] [address], [place] [address] 16 Nov, 2014 [facility] [address] [id number] [address] [place] [address], [place] [address] Nov, 2014 [facility] [address] [id number] [address] [place] [address], [place] [address] Nov, [facility] [address] [id number] [address] [place] [address], [place] [address] Nov, 2014 [facility] [address] [id number] [address] [place] [address], [place] [address] Oct, [facility] [address] [id number] [address] [place] [address], [place] [address] Oct, [facility] [address] [id number] [address] [place] [address], [place] [address] Oct, [facility] [address] [id number] [address] [place] [address], [place] [address] Oct, [facility] [address] [id number] [address] [place] [address], [place] [address] Oct, [facility] [address] [id number] [address] [place] [address], [place] [address] Oct, [facility] [address] [id number] [address] [place] [address], [place] [address] Oct, [facility] [address] [id number] [address] [place] [address], [place] [address] Oct, [facility] [address] [id number] [address] [place] [address], [place] [address] Sep, [facility] [address] [id number] [address] [place] [address], [place] [address] Sep, [facility] [address] [id number] [address] [place] [address], [place] [address] Sep, [facility] [address] [id number] [address] [place] [address], [place] [address] Sep, [facility] [address] [id number] [address] [place] [address], [place] [address] Sep, [facility] [address] [id number] [address] [place] [address], [place] [address] Sep, [facility] [address] [id number] [address] [place] [address], [place] [address] Sep, [facility] [address] [id number] [address] [place] [address], [place] [address] Sep, [facility] [address] [id number] [address] [place] [address], [place] [address] Aug, [facility] [address] [id number] [address] [place] [address], [place] [address] Aug, [facility] [address] [id number] [address] [place] [address], [place] [address] Aug, [facility] [address] [id number] [address] [place] [address], [place] [address] Aug, [facility] [address] [id number] [address] [place] [address], [place] [address] Jul, [facility] [address] [id number] [address] [place] [address], [place] [address] Jul, [facility] [address] [id number] [address] [place] [address], [place] [address] Jul, [facility] [address] [id number] [address] [place] [address], [place] [address] Jul, [facility] [address] [id number] [address] [place] [address], [place] [address] Jul, [facility] [address] [id number] [address] [place] [address], [place] [address] Jul, [facility] [address] [id number] [address] [place] [address], [place] [address] Jul, [facility] [address] [id number] [address] [place] [address], [place] [address] Jul, [facility] [address] [id number] [address] [place] [address], [place] [address] Jul, [facility] [address] [id number] [address] [place] [address], [place] [address] Jul, [facility] [address] [id number] [address] [place] [address], [place] [address] Jul, [facility] [address] [id number] [address] [place] [address], [place] [address] Jul, [facility] [address] [id number] [address] [place] [address], [place] [address] Jul, [facility] [address] [id number] [address] [place] [address], [place] [address] Jul, [facility] [address] [id number] [address] [place] [address], [place] [address] Jul, 2013 [facility] [address] [id number] [address] [place] [address], [place] [address] Jul, 2013 [facility] [address] [id number] [address] [place] [address], [place] [address] Jul, [facility] [address] [id number] [address] [place] [address], [place] [address] Jul, [facility] [address] [id number] [address] [place] [address], [place] [address] Jul, [facility] [address] [id number] [address] [place] [address], [place] [address] Jul, [facility] [address] [id number] [address] [place] [address], [place] [address] Jul, [facility] [address] [id number] [address] [place] [address], [place] [address] Jul, [facility] [address] [id number] [address] [place] [address], [place] [address] 29 Jun, 2013 [facility] [address] [id number] [address] [place] [address], [place] [address] 29 Sep, 2013 [facility] [address] [id number] [address] [place] [address], [place] [address] 17 Sep, 2013 [facility] [address] [id number] [address] [place] [address], [place] [address] 17 Jun, 2013 [facility] [address] [id number] [address] [place] [address], [place] [address] 05 Sep, 2013 [facility] [address] [id number] [address] [place] [address], [place] [address] Jun, 2013 [facility] [address] [id number] [facility] [place] [address] Jun, 2013 [facility] [address] [id number] [address] [place] [address], [place] [address] Jun, [facility] [address] [id number] [address] [place] [address], [place] [address] Jun, 2013 [facility] [address] [id number] [address] [place] [address], [place] [address] Jun, [facility] [address] [id number] [address] [place] [address], [place] [address] May, [facility] [address] [id number] [address] [place] [address], [place] [address] May, [facility] [address] [id number] [address] [place] [address], [place] [address] May, [facility] [address] [id number] [address] [place] [address], [place] [address] May, [facility] [address] [id number] [address] [place] [address], [place] [address] May, [facility] [address] [id number] [address] [place] [address], [place] [address] May, [facility] [address] [id number] [address] [place] [address], [place] [address] May, [facility] [address] [id number] [address] [place] [address], [place] [address] May, [facility] [address] [id number] [address] [place] [address], [place] [address] Apr, [facility] [address] [id number] [address] [place] [address], [place] [address] Apr, [facility] [address] [id number] [address] [place] [address], [place] [address] Apr, [facility] [address] [id number] [facility] [place] [address] Apr, [facility] [address] [id number] [address] [place] [address], [place] [address] Apr, [facility] [address] [id number] [address] [place] [address], [place] [address] Apr, [facility] [address] [id number] [address] [place] [address], [place] [address] Mar, [facility] [address] [id number] [address] [place] [address], [place] [address] Mar, [facility] [address] [id number] [address] [place] [address], [place] [address] Mar, [facility] [address] [id number] [address] [place] [address], [place] [address] Mar, [facility] [address] [id number] [address] [place] [address], [place] [address] Mar, [facility] [address] [id number] [address] [place] [address], [place] [address] Mar, [facility] [address] [id number] [address] [place] [address], [place] [address] Mar, [facility] [address] [id number] [address] [place] [address], [place] [address] Mar, [facility] [address] [id number] [address] [place] [address], [place] [address] February, [facility] [address] [id number] [address] [place] [address], [place] [address] February, [facility] [address] [id number] [address] [place] [address], [place] [address] February, [facility] [address] [id number] [address] [place] [address], [place] [address] February, [facility] [address] [id number] [address] [place] [address], [place] [address] February, [facility] [address] [id number] [address] [place] [address], [place] [address] Jan, [facility] [address] [id number] [address] [place] [address], [place] [address] Jan, [facility] [address] [id number] [address] [place] [address], [place] [address] Nov, [facility] [address] [id number] [address] [place] [address], [place] [address] Nov, [facility] [address] [id number] [address] [place] [address], [place] [address] Nov, [facility] [address] [id number] [address] [place] [address], [place] [address] Nov, [facility] [address] [id number] [address] [place] [address], [place] [address] Nov, [facility] [address] [id number] [address] [place] [address], [place] [address] Nov, [facility] [address] [id number] [address] [place] [address], [place] [address] Oct, [facility] [address] [id number] [address] [place] [address], [place] [address] Oct, [facility] [address] [id number] [address] [place] [address], [place] [address] Oct, [facility] [address] [id number] [address] [place] [address], [place] [address] Sep, [facility] [address] [id number] [address] [place] [address], [place] [address] Sep, [facility] [address] [id number] [address] [place] [address], [place] [address] Aug, [facility] [address] [id number] [address] [place] [address], [place] [address] Aug, [facility] [address] [id number] [address] [place] [address], [place] [address] Aug, [facility] [address] [id number] [address] [place] [address], [place] [address] Aug, [facility] [address] [id number] [address] [place] [address], [place] [address] Jul, [facility] [address] [id number] [address] [place] [address], [place] [address] Jul, [facility] [address] [id number] [address] [place] [address], [place] [address] Jul, [facility] [address] [id number] [address] [place] [address], [place] [address] Jul, [facility] [address] [id number] [address] [place] [address], [place] [address] Jul, [facility] [address] [id number] [address] [place] [address], [place] [address] Jun, [facility] [address] [id number] [address] [place] [address], [place] [address] Jun, [facility] [address] [id number] [address] [place] [address], [place] [address] May, [facility] [address] [id number] [address] [place] [address], [place] [address] May, [facility] [address] [id number] [address] [place] [address], [place] [address] May, [facility] [address] [id number] [address] [place] [address], [place] [address] May, [facility] [address] [id number] [address] [place] [address], [place] [address] May, [facility] [address] [id number] [address] [place] [address], [place] [address] May, [facility] [address] [id number] [address] [place] [address], [place] [address] Apr, [facility] [address] [id number] [address] [place] [address], [place] [address] Apr, [facility] [address] [id number] [address] [place] [address], [place] [address] Apr, [facility] [address] [id number] [address] [place] [address], [place] [address] Apr, [facility] [address] [id number] [address] [place] [address], [place] [address] Apr, [facility] [address] [id number] [address] [place] [address], [place] [address] Mar, [facility] [address] [id number] [address] [place] [address], [place] [address] Mar, [facility] [address] [id number] [address] [place] [address], [place] [address] Mar, [facility] [address] [id number] [address] [place] [address], [place] [address] February, [facility] [address] [id number] [address] [place] [address], [place] [address] February, [facility] [address] [id number] [address] [place] [address], [place] [address] February, [facility] [address] [id number] [address] [place] [address], [place] [address] Dec, [facility] [address] [id number] [address] [place] [address], [place] [address] Dec, [facility] [address] [id number] [address] [place] [address], [place] [address] Dec, [facility] [address] [id number] [address] [place] [address], [place] [address] Oct, [facility] [address] [id number] [address] [place] [address], [place] [address] Oct, [facility] [address] [id number] [address] [place] [address], [place] [address] Sep, [facility] [address] [id number] [address] [place] [address], [place] [address] Sep, [facility] [address] [id number] [address] [place] [address], [place] [address] Aug, [facility] [address] [id number] [address] [place] [address], [place] [address] Aug, [facility] [address] [id number] [address] [place] [address] Aug, [facility] [address] [id number] [address] [place] [address], [place] [address] Aug, [facility] [address] [id number] [address] [place] [address], [place] [address] Aug, [facility] [address] [id number] [address] [place] [address], [place] [address] Aug, [facility] [address] [id number] [address] [place] [address], [place] [address] Jul, [facility] [address] [id number] [address] [place] [address], [place] [address] Jul, [facility] [address] [id number] [address] [place] [address] Jul, [facility] [address] [id number] [address] [place] [address] Jul, [facility] [address] [id number] [address] [place] [address] Jul, [facility] [address] [id number] [address] [place] [address], [place] [address] Jul, [facility] [address] [id number] [address] [place] [address], [place] [address] Jun, [facility] [address] [id number] [address] [place] [address], [place] [address] Jun, [facility] [address] [id number] [address] [address] 15 Jun, 2012 [facility] [address] [facility] [id number] [address] [address] 15 Jun, 2012 IMMUNIZATIONS No Known Immunizations [...] legs 02/2019 Hospitalization History surgeries Hospitalization History [facility]- Viral infection Aug 26 Hospitalization History [facility] [place]- Flu Sx 12/10/2016 Hospitalization History [facility] [place]- Congestion, runny n ose and abd pain 12/21/2017
--- OUTSIDE RECORDS SUMMARY | 2020-05-11 18:37 | XMS REPORT ---
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 Name Role Phone RENETTA CARDOZA Unavailable PROBLEMS Type Condition ICD9-CM Code NJX88-KR Code Onset Dates Condition S tatus SNOMED Code Problem Coronary artery disease invo lving [place] heart, angina presence unspecified, unspecified vessel or lesion type I25.10 Active 75420143 Problem LAURY (obstructive sleep apnea) G47.33 Active 79848216 Problem Chronic obstructive pulmonary disease, unspecified COPD ty pe J44.9 Active 80058731 Problem Seizure disorder G40.909 Active 128 856408 Problem Erectile dysfunction, unspecified erectile dysfunction typ e N52.9 Active 286890915 Problem Other chronic pain G89.29 Active 8 9016288 Problem Tobacco abuse Z72.0 Active 163323 05 Problem Non morbid obesity E66.9 Active 4 64387691 Problem Non morbid obesity due to excess calories E66.09 Active 593770103 Problem Other obesity due to excess calories E66.09 Active 531947835 Problem Panlobular emphysema J43.1 Active 0148546 Problem COPD exacerbation J44.1 Active 19 7549684 Problem COPD with acute exacerbation J44.1 A ctive 276533276 Problem 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 Active [id number] Problem Chronic major depressive disorder, recurrent episode F33.9 Active 13988358 Problem RLS (restless legs syndrome) G25.81 A ctive 76892907 Problem Recurrent major depressive disorder, remission s tatus unspecified F33.9 Active 99271608 Problem Morbid obesity due to excess calories E66.01 Active 941463008 Problem Flexural eczema L20.82 Active 5709 2006 Problem Hypertension, benign I10 Active 46551237 Problem Palpitations R00.2 Active 8063942 2 Problem Restless leg syndrome G25.81 Active 05783653 Problem Primary insomnia F51.01 Active 397 2004 Problem Atherosclerotic heart diseas e of [place] coronary artery with other forms of angina pectoris I25.118 Active 147031229 Problem Type 2 diabetes mellitus wit hout complication, unspecified whether rn long term care insulin use E11.9 Active 264122466 ALLERGIES No Information ENCOUNTERS Encounter Location Date Diagnosis [facility] [address] [facility] [id number] [address] [place] [address] 29 Mar, 2020 Chronic obstructive pulmonar y disease, unspecified COPD type J44.9 ; Flexural eczema L20.82 ; Type 2 diabetes mellitus without complication, unspecified whether fpc insulin use E11.9 and Recurrent major depressive disorder, remission status unspecified F33.9 [facility] [address] [facility] [id number] [address] [place] [address] 26 Mar, 2020 COPD exacerbation J44.1 [place] [address] [facility] [id number] [address] [place] [address] February, [facility] [address] [facility] [id number] [address] [place] [address] February, [facility] [address] [facility] [id number] [address] [place] [address] February, Chronic obstructive pulmonar y disease, unspecified COPD type J44.9 ; Tobacco abuse Z72.0 ; Tobacco abuse counseling Z71.6 and Primary insomnia F51.01 [place] [address] [facility] [id number] [address] [place] [address] February, [facility] [address] [facility] [id number] [address] [place] [address] February, Chronic obstructive pulmonar y disease, unspecified COPD type J44.9 and Coronary artery disease involving [place] heart, angina presence unspecified, unspecified vessel or lesion type I25.10 [facility] [address] [facility] [id number] [address] [place] [address] February, [facility] [address] [facility] [id number] [address] [place] [address] February, Right leg swelling M79.89 [facility] [address] [id number] [address] [place] [address] Jan, Dependent edema R60.9 [facility] [address] [id number] [address] [place] [address] Jan, Dependent edema R60.9 [facility] [address] [id number] [address] [place] [address] Jan, Hyperglycemia R73.9 and Loca lized edema R60.0 [facility] [address] [id number] [address] [place] [address] Jan, [facility] [address] [id number] [address] [place] [address] Jan, Counseled by nurse [id number] [facility] [address] [id number] [address] [place] [address] Jan, Hyperglycemia R73.9 and Loca lized edema R60.0 [facility] [address] [id number] [address] [place] [address] Jan, [facility] [address] [id number] [address] [place] [address] Jan, [facility] [address] [id number] [address] [place] [address] Jan, Hyperglycemia R73.9 [facility] [address] [id number] [address] [place] [address] Jan, Hyperglycemia R73.9 [facility] [address] [id number] [address] [place] [address] Jan, Coronary artery disease invo lving [place] heart, angina presence unspecified, unspecified vessel or lesion type I25.10 and Localized edema R60.0 [facility] [address] [id number] [address] [place] [address] Jan, [facility] [address] [id number] [address] [place] [address] 15 Jan, 2020 Coronary artery disease invo lving [place] heart, angina presence unspecified, unspecified vessel or lesion type I25.10 and Localized edema R60.0 [facility] [address] [place] [id number] [address] [place] [address] 14 Jan, 2020 Bilateral edema of lower ext remity R60.0 and SOB (shortness of breath) R06.02 [place] [address] [address] 05 Dec, 2019 Chronic obstructive pulmonar y disease, unspecified COPD type J44.9 ; Non morbid obesity due to excess calories E66.09 ; Seizure disorder G40.909 ; Atherosclerotic heart disease of [place] coronary artery with other forms of angina pectoris I25.118 ; Other chronic pain G89.29 ; Pain in right knee M25.561 and RLS (restless legs syndrome) G25.81 [facility] [address] [place] [id number] [address] [place] [address] 20 Nov, 2019 COPD exacerbation J44.1 and Cough R05 [place] [address] [place] [id number] [address] [place] [address] 20 Nov, 2019 [place] [address] [place] [id number] [address] [place] [address] 06 Nov, 2019 Chronic obstructive pulmonar y disease, unspecified COPD type J44.9 [place] [address] [place] [id number] [address] [place] [address] 03 Nov, 2019 [facility] [address] [place] [id number] [address] [place] [address] 30 Oct, 2019 COPD exacerbation J44.1 and Tobacco abuse Z72.0 [place] [address] [place] [id number] [address] [place] [address] 14 Oct, 2019 [place] [address] [place] [id number] [address] [place] [address] 14 Oct, 2019 Right knee pain, unspecified chronicity M25.561 [place] [id number] [place] [address] Sep, Restless leg syndrome G25.81 and Primary insomnia F51.01 [facility] [address] [address] Sep, Chronic obstructive pulmonar y disease, unspecified COPD type J44.9 and COPD exacerbation J44.1 [place] [address] [address] Sep, RLS (restless legs syndrome) G25.81 [place] [address] [address] Aug, Other chronic pain G89.29 ; Pain in right knee M25.561 ; Seizures R56.9 ; Coronary artery disease of [place] artery of [place] heart with stable angina pectoris I25.118 and Chronic major depressive disorder, recurrent episode F33.9 [facility] [address] [address] Jul, Right knee pain, unspecified chronicity M25.561 [place] [address] [address] Jul, [place] [address] [address] Jul, Foot pain, right M79.671 ; M orbid obesity due to excess calories E66.01 ; Seizures R56.9 and Encounter for immunization Z23 [place] [address] [address] Jun, [place] [address] [address] Jun, Non morbid obesity due to ex cess calories E66.09 and Foot callus L84 [place] [address] [address] May, [facility] [address] [place] [address] May, Flank pain R10.9 [facility] [address] [facility] [id number] [address] [place] [address] May, Focal seizures R56.9 [facility] [address] [facility] [id number] [address] [place] [address] May, COPD exacerbation J44.1 and Non morbid obesity E66.9 [facility] [address] [id number] [address] [place] [address] May, Seizure disorder G40.909 [facility] [address] [facility] [id number] [address] [place] [address] May, [facility] [address] [facility] [id number] [address] [place] [address] May, [facility] [address] [facility] [id number] [address] [place] [address] May, Abscess of left foot L02.612 [facility] [address] [facility] [id number] [address] [place] [address] Apr, Cellulitis of left lower ext remity L03.116 [facility] [address] [facility] [id number] [address] [place] [address] Apr, [facility] [address] [facility] [id number] [address] [place] [address] Apr, [facility] [address] [facility] [id number] [address] [place] [address] Apr, Cellulitis of left foot L03. 116 [facility] [address] [facility] [id number] [address] [place] [address] Apr, Chronic obstructive pulmonar y disease, unspecified COPD type J44.9 and Seizures R56.9 [facility] [address] [facility] [id number] [address] [place] [address] Mar, [facility] [address] [facility] [id number] [address] [place] [address] Mar, [facility] [address] [facility] [id number] [address] [place] [address] Mar, [facility] [address] [facility] [id number] [address] [place] [address] February, [facility] [address] [facility] [id number] [address] [place] [address] February, [facility] [address] [facility] [id number] [address] [place] [address] Jan, [facility] [address] [facility] [id number] [place] [address] Aug, Wheezes R06.2 and Pneumonia J18.9 [place] [address] [place] [id number] [place] [address] Aug, Erectile dysfunction, unspec ified erectile dysfunction type N52.9 [facility] [address] [place] [id number] [place] [address] Aug, Non morbid obesity E66.9 [facility] [address] [place] [id number] [place] [address] Jul, [facility] [address] [facility] [id number] [address] [place] [address] Jul, Testicular swelling, right N 50.89 [facility] [address] [place] [id number] [place] [address] Jul, Callus L84 [facility] [address] [place] [id number] [address] [place] [address] Jun, Non morbid obesity E66.9 ; C OPD exacerbation J44.1 ; 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 and Dermatofibroma D23.9 [facility] [address] [facility] [id number] [address] [place] [address] May, Non morbid obesity E66.9 and Grade II hemorrhoids K64.1 [place] [address] [place] [id number] [address] [place] [address] Mar, [place] [address] [address] Mar, Cough 786.2 ; Medicare annua l wellness visit, initial Z00.00 ; Morbid obesity due to excess calories E66.01 ; Chronic obstructive pulmonary disease, unspecified COPD type J44.9 ; Coronary artery disease involving [place] heart, angina presence unspecified, unspecified vessel or lesion type I25.10 ; Hypertension, benign I10 and LAURY (obstructive sleep apnea) G47.[address] [address] 31 Feb, 2018 Medicare annual wellness vis it, initial Z00.00 ; Morbid obesity due to excess calories E66.01 ; Chronic obstructive pulmonary disease, unspecified COPD type J44.9 ; Coronary artery disease involving [place] heart, angina presence unspecified, unspecified vessel or lesion type I25.10 ; Hypertension, benign I10 ; LAURY (obstructive sleep apnea) G47.33 ; Family history of colon cancer Z80.0 ; Other chronic pain G89.29 and Pain in right hip M25.551 [place] [address] [address] Jan, [place] [address] [address] Nov, Panlobular emphysema J43.1 [place] [address] [place] [id number] [address] [place] [address] Nov, COPD exacerbation J44.1 [place] [address] [address] Nov, Viral URI J06.9 [place] [address] [place] [id number] [place] [address] Nov, [place] [address] [address] Nov, [facility] [address] [facility] [id number] [address] [place] [address] Sep, Other obesity due to excess calories E66.09 and Body mass index (BMI) of 36.0-36.9 in adult Z68.36 [facility] [address] [facility] [id number] [address] [place] [address] Aug, [facility] [address] [facility] [id number] [address] [place] [address] Aug, [facility] [address] [facility] [id number] [address] [place] [address] Aug, Coronary artery disease invo lving [place] heart, angina presence unspecified, unspecified vessel or lesion type I25.10 and Chronic obstructive pulmonary disease, unspecified COPD type J44.9 [facility] [address] [facility] [id number] [address] [place] [address] Jul, COPD with acute exacerbation J44.1 [facility] [address] [facility] [id number] [address] [place] [address] Jul, Non morbid obesity E66.9 [place] [address] [facility] [id number] [address] [place] [address] Jun, Panlobular emphysema J43.1 ; Tobacco abuse Z72.0 ; Tobacco abuse counseling Z71.6 and Non morbid obesity E66.9 [facility] [address] [facility] [id number] [address] [place] [address] Apr, [facility] [address] [facility] [id number] [address] [place] [address] Apr, [place] [address] [place] [id number] [address] [place] [address] Mar, COPD exacerbation J44.1 [place] [address] [facility] [id number] [address] [place] [address] Mar, Tear of medial meniscus of r ight knee, current, unspecified tear type, initial encounter S83.241A [facility] [address] [id number] [address] [place] [address] Mar, Pain in right knee M25.561 [facility] [address] [id number] [address] [place] [address] February, Pain in right knee M25.561 [facility] [address] [facility] [id number] [address] [place] [address] February, Pain in right knee M25.561 [facility] [address] [id number] [address] [place] [address] Dec, [place] [address] [facility] [id number] [address] [place] [address] Nov, [facility] [address] [facility] [id number] [address] [place] [address] Nov, Bronchitis J40 and Wheezing R06.2 [place] [address] [facility] [id number] [address] [place] [address] Oct, [facility] [address] [facility] [id number] [address] [place] [address] Oct, [place] [address] [facility] [id number] [address] [place] [address] Oct, Non morbid obesity due to ex cess calories E66.09 ; Other chronic pain G89.29 and Pain in right knee M25.561 [facility] [address] [facility] [id number] [address] [place] [address] Oct, Non morbid obesity due to ex cess calories E66.09 ; Other chronic pain G89.29 and Pain in right knee M25.561 [facility] [address] [facility] [id number] [address] [place] [address] Oct, Pain in right knee M25.561 a nd Other chronic pain G89.29 [place] [id number] [facility] [id number] [address] [place] [address] Aug, Encounter for immunization Z 23 [facility] [address] [facility] [id number] [address] [place] [address] 09 Aug, 2016 [facility] [address] [place] [id number] [place] [address] 09 Aug, 2016 [facility] [address] [facility] [id number] [address] [place] [address] 02 Jun, 2016 Common wart B07.8 [facility] [address] [facility] [id number] [address] [place] [address] May, Cellulitis of left elbow L03 .114 [place] [address] [place] [id number] [place] [address] Mar, Torticollis, acute M43.6 and Leg pain, left M79.605 [place] [address] [place] [id number] [place] [address] February, Leg pain, left M79.605 [facility] [address] [place] [id number] [address] [place] [address] Dec, COPD exacerbation J44.1 [place] [address] [address] Dec, [facility] [address] [place] [id number] [place] [address] Oct, Chronic obstructive pulmonar y disease, unspecified COPD type J44.9 and Hyperglycemia R73.9 [facility] [address] [place] [id number] [address] [place] [address] Sep, Tobacco abuse Z72.0 ; [place] ry artery disease involving [place] heart, angina presence unspecified, unspecified vessel or lesion type I25.10 and Morbid obesity due to excess calories E66.01 [facility] [address] [place] [id number] [address] [place] [address] 14 Sep, 2015 [facility] [address] [address] Sep, Leg pain, left M79.605 [facility] [address] [place] [id number] [address] [place] [address] Sep, [facility] [address] [place] [id number] [place] [address] Sep, [facility] [address] [address] Aug, Essential (primary) hyperten autumn I10 [facility] [address] [id number] Aug, Encounter for immunization Z 23 [facility] [address] [id number] Aug, [facility] [address] [id number] May, Chronic airway obstruction, not elsewhere classified 496 [facility] [address] [id number] May, [facility] [address] [address] May, [facility] [address] [id number] May, Acute bronchitis 466.0 [facility] [address] [id number] May, [facility] [address] [address] May, Hyperglycemia 790.29 [facility] [address] [address] Apr, [facility] [address] [address] Apr, Cough 786.2 ; Hyperglycemia 790.29 and COPD (chronic obstructive pulmonary disease) 496 [facility] [address] [id number] 30 Mar, 2015 Cough 786.2 ; Elevated gluco se 790.29 ; Wheezing 786.07 ; COPD exacerbation 491.21 and Nicotine dependence 305.1 [facility] [address] [id number] [address] [place] [id number] 16 Mar, 2015 High risk medication use V58 .69 [facility] [address] [facility] [id number] [address] [place] [id number] Mar, High risk medication use V58 .69 and Benign hypertension 401.1 [facility] [address] [id number] [address] [place] [id number] Mar, [facility] [address] [id number] [address] [place] [phone] February, [facility] [address] [facility] [id number] [address] [place] [id number] February, [facility] [address] [id number] [address] [place] [phone] Jan, [facility] [address] [id number] [address] [place] [id number] 30 Jan, 2015 Benign hypertension 401.1 [facility] [address] [facility] [id number] [address] [place] [id number] 14 Jan, 2015 [facility] [address] [id number] [address] [place] [phone] Jan, [facility] [address] [facility] [id number] [address] [place] [id number] Dec, [facility] [facility] [address] [id number] [address] [place] [id number] Dec, [facility] [address] [facility] [id number] [address] [place] [id number] Dec, [facility] [address] [facility] [id number] [address] [place] [id number] 18 Dec, 2014 [facility] [address] [id number] [address] [place] [address], [place] [address] 18 Dec, 2014 [facility] [address] [id number] [address] [place] [address] [address] 2014 [facility] [address] [id number] [address] [place] [address], [place] [address] 2014 [facility] [address] [id number] [address] [place] [address], [place] [address] 13 Dec, 2014 [facility] [address] [id number] [address] [place] [address], [place] [address] 13 Dec, 2014 [facility] [address] [id number] [address] [place] [address], [place] [address] 06 Dec, 2014 [facility] [address] [id number] [address] [place] [address], [place] [address] 06 Dec, 2014 [facility] [address] [id number] [address] [place] [address], [place] [address] 05 Dec, 2014 [facility] [address] [id number] [address] [place] [address], [place] [address] 05 Dec, 2014 [facility] [address] [id number] [address] [place] [address], [place] [address] Dec, [facility] [address] [id number] [address] [place] [address], [place] [address] Dec, [facility] [address] [id number] [address] [place] [address], [place] [address] 16 Nov, 2014 [facility] [address] [id number] [address] [place] [address], [place] [address] Nov, 2014 [facility] [address] [id number] [address] [place] [address], [place] [address] Nov, [facility] [address] [id number] [address] [place] [address], [place] [address] Nov, 2014 [facility] [address] [id number] [address] [place] [address], [place] [address] Oct, [facility] [address] [id number] [address] [place] [address], [place] [address] Oct, [facility] [address] [id number] [address] [place] [address], [place] [address] Oct, [facility] [address] [id number] [address] [place] [address], [place] [address] Oct, [facility] [address] [id number] [address] [place] [address], [place] [address] Oct, [facility] [address] [id number] [address] [place] [address], [place] [address] Oct, [facility] [address] [id number] [address] [place] [address], [place] [address] Oct, [facility] [address] [id number] [address] [place] [address], [place] [address] Oct, [facility] [address] [id number] [address] [place] [address], [place] [address] Sep, [facility] [address] [id number] [address] [place] [address], [place] [address] Sep, [facility] [address] [id number] [address] [place] [address], [place] [address] Sep, [facility] [address] [id number] [address] [place] [address], [place] [address] Sep, [facility] [address] [id number] [address] [place] [address], [place] [address] Sep, [facility] [address] [id number] [address] [place] [address], [place] [address] Sep, [facility] [address] [id number] [address] [place] [address], [place] [address] Sep, [facility] [address] [id number] [address] [place] [address], [place] [address] Sep, [facility] [address] [id number] [address] [place] [address], [place] [address] Aug, [facility] [address] [id number] [address] [place] [address], [place] [address] Aug, [facility] [address] [id number] [address] [place] [address], [place] [address] Aug, [facility] [address] [id number] [address] [place] [address], [place] [address] Aug, [facility] [address] [id number] [address] [place] [address], [place] [address] Jul, [facility] [address] [id number] [address] [place] [address], [place] [address] Jul, [facility] [address] [id number] [address] [place] [address], [place] [address] Jul, [facility] [address] [id number] [address] [place] [address], [place] [address] Jul, [facility] [address] [id number] [address] [place] [address], [place] [address] Jul, [facility] [address] [id number] [address] [place] [address], [place] [address] Jul, [facility] [address] [id number] [address] [place] [address], [place] [address] Jul, [facility] [address] [id number] [address] [place] [address], [place] [address] Jul, [facility] [address] [id number] [address] [place] [address], [place] [address] Jul, [facility] [address] [id number] [address] [place] [address], [place] [address] Jul, [facility] [address] [id number] [address] [place] [address], [place] [address] Jul, [facility] [address] [id number] [address] [place] [address], [place] [address] Jul, [facility] [address] [id number] [address] [place] [address], [place] [address] Jul, [facility] [address] [id number] [address] [place] [address], [place] [address] Jul, [facility] [address] [id number] [address] [place] [address], [place] [address] Jul, 2013 [facility] [address] [id number] [address] [place] [address], [place] [address] Jul, 2013 [facility] [address] [id number] [address] [place] [address], [place] [address] Jul, [facility] [address] [id number] [address] [place] [address], [place] [address] Jul, [facility] [address] [id number] [address] [place] [address], [place] [address] Jul, [facility] [address] [id number] [address] [place] [address], [place] [address] Jul, [facility] [address] [id number] [address] [place] [address], [place] [address] Jul, [facility] [address] [id number] [address] [place] [address], [place] [address] Jul, [facility] [address] [id number] [address] [place] [address], [place] [address] 29 Jun, 2013 [facility] [address] [id number] [address] [place] [address], [place] [address] 29 Sep, 2013 [facility] [address] [id number] [address] [place] [address], [place] [address] 17 Sep, 2013 [facility] [address] [id number] [address] [place] [address], [place] [address] 17 Jun, 2013 [facility] [address] [id number] [address] [place] [address], [place] [address] 05 Sep, 2013 [facility] [address] [id number] [address] [place] [address], [place] [address] Jun, 2013 [facility] [address] [id number] [facility] [place] [address] Jun, 2013 [facility] [address] [id number] [address] [place] [address], [place] [address] Jun, [facility] [address] [id number] [address] [place] [address], [place] [address] Jun, 2013 [facility] [address] [id number] [address] [place] [address], [place] [address] Jun, [facility] [address] [id number] [address] [place] [address], [place] [address] May, [facility] [address] [id number] [address] [place] [address], [place] [address] May, [facility] [address] [id number] [address] [place] [address], [place] [address] May, [facility] [address] [id number] [address] [place] [address], [place] [address] May, [facility] [address] [id number] [address] [place] [address], [place] [address] May, [facility] [address] [id number] [address] [place] [address], [place] [address] May, [facility] [address] [id number] [address] [place] [address], [place] [address] May, [facility] [address] [id number] [address] [place] [address], [place] [address] May, [facility] [address] [id number] [address] [place] [address], [place] [address] Apr, [facility] [address] [id number] [address] [place] [address], [place] [address] Apr, [facility] [address] [id number] [address] [place] [address], [place] [address] Apr, [facility] [address] [id number] [facility] [place] [address] Apr, [facility] [address] [id number] [address] [place] [address], [place] [address] Apr, [facility] [address] [id number] [address] [place] [address], [place] [address] Apr, [facility] [address] [id number] [address] [place] [address], [place] [address] Mar, [facility] [address] [id number] [address] [place] [address], [place] [address] Mar, [facility] [address] [id number] [address] [place] [address], [place] [address] Mar, [facility] [address] [id number] [address] [place] [address], [place] [address] Mar, [facility] [address] [id number] [address] [place] [address], [place] [address] Mar, [facility] [address] [id number] [address] [place] [address], [place] [address] Mar, [facility] [address] [id number] [address] [place] [address], [place] [address] Mar, [facility] [address] [id number] [address] [place] [address], [place] [address] Mar, [facility] [address] [id number] [address] [place] [address], [place] [address] February, [facility] [address] [id number] [address] [place] [address], [place] [address] February, [facility] [address] [id number] [address] [place] [address], [place] [address] February, [facility] [address] [id number] [address] [place] [address], [place] [address] February, [facility] [address] [id number] [address] [place] [address], [place] [address] February, [facility] [address] [id number] [address] [place] [address], [place] [address] Jan, [facility] [address] [id number] [address] [place] [address], [place] [address] Jan, [facility] [address] [id number] [address] [place] [address], [place] [address] Nov, [facility] [address] [id number] [address] [place] [address], [place] [address] Nov, [facility] [address] [id number] [address] [place] [address], [place] [address] Nov, [facility] [address] [id number] [address] [place] [address], [place] [address] Nov, [facility] [address] [id number] [address] [place] [address], [place] [address] Nov, [facility] [address] [id number] [address] [place] [address], [place] [address] Nov, [facility] [address] [id number] [address] [place] [address], [place] [address] Oct, [facility] [address] [id number] [address] [place] [address], [place] [address] Oct, [facility] [address] [id number] [address] [place] [address], [place] [address] Oct, [facility] [address] [id number] [address] [place] [address], [place] [address] Sep, [facility] [address] [id number] [address] [place] [address], [place] [address] Sep, [facility] [address] [id number] [address] [place] [address], [place] [address] Aug, [facility] [address] [id number] [address] [place] [address], [place] [address] Aug, [facility] [address] [id number] [address] [place] [address], [place] [address] Aug, [facility] [address] [id number] [address] [place] [address], [place] [address] Aug, [facility] [address] [id number] [address] [place] [address], [place] [address] Jul, [facility] [address] [id number] [address] [place] [address], [place] [address] Jul, [facility] [address] [id number] [address] [place] [address], [place] [address] Jul, [facility] [address] [id number] [address] [place] [address], [place] [address] Jul, [facility] [address] [id number] [address] [place] [address], [place] [address] Jul, [facility] [address] [id number] [address] [place] [address], [place] [address] Jun, [facility] [address] [id number] [address] [place] [address], [place] [address] Jun, [facility] [address] [id number] [address] [place] [address], [place] [address] May, [facility] [address] [id number] [address] [place] [address], [place] [address] May, [facility] [address] [id number] [address] [place] [address], [place] [address] May, [facility] [address] [id number] [address] [place] [address], [place] [address] May, [facility] [address] [id number] [address] [place] [address], [place] [address] May, [facility] [address] [id number] [address] [place] [address], [place] [address] May, [facility] [address] [id number] [address] [place] [address], [place] [address] Apr, [facility] [address] [id number] [address] [place] [address], [place] [address] Apr, [facility] [address] [id number] [address] [place] [address], [place] [address] Apr, [facility] [address] [id number] [address] [place] [address], [place] [address] Apr, [facility] [address] [id number] [address] [place] [address], [place] [address] Apr, [facility] [address] [id number] [address] [place] [address], [place] [address] Mar, [facility] [address] [id number] [address] [place] [address], [place] [address] Mar, [facility] [address] [id number] [address] [place] [address], [place] [address] Mar, [facility] [address] [id number] [address] [place] [address], [place] [address] February, [facility] [address] [id number] [address] [place] [address], [place] [address] February, [facility] [address] [id number] [address] [place] [address], [place] [address] February, [facility] [address] [id number] [address] [place] [address], [place] [address] Dec, [facility] [address] [id number] [address] [place] [address], [place] [address] Dec, [facility] [address] [id number] [address] [place] [address], [place] [address] Dec, [facility] [address] [id number] [address] [place] [address], [place] [address] Oct, [facility] [address] [id number] [address] [place] [address], [place] [address] Oct, [facility] [address] [id number] [address] [place] [address], [place] [address] Sep, [facility] [address] [id number] [address] [place] [address], [place] [address] Sep, [facility] [address] [id number] [address] [place] [address], [place] [address] Aug, [facility] [address] [id number] [address] [place] [address], [place] [address] Aug, [facility] [address] [id number] [address] [place] [address] Aug, [facility] [address] [id number] [address] [place] [address], [place] [address] Aug, [facility] [address] [id number] [address] [place] [address], [place] [address] Aug, [facility] [address] [id number] [address] [place] [address], [place] [address] Aug, [facility] [address] [id number] [address] [place] [address], [place] [address] Jul, [facility] [address] [id number] [address] [place] [address], [place] [address] Jul, [facility] [address] [id number] [address] [place] [address] Jul, [facility] [address] [id number] [address] [place] [address] Jul, [facility] [address] [id number] [address] [place] [id number] Jul, [facility] [address] [id number] [address] [place] [address], [place] [address] Jul, [facility] [address] [id number] [address] [place] [address], [place] [address] Jun, [facility] [address] [id number] [address] [place] [address], [place] [id number] Jun, [facility] [address] [id number] [address] [address] 15 Jun, 2012 [facility] [address] [id number] [address] [address] 15 Jun, 2012 IMMUNIZATIONS No Known Immunizations [...] legs 02/2019 Hospitalization History surgeries Hospitalization History [facility]- Viral infection Aug 26 Hospitalization History [facility]- Flu Sx 12/10/2016 Hospitalization History [facility]- Congestion, runny n ose and abd pain 12/21/2017
--- OUTSIDE RECORDS SUMMARY | 2020-05-11 18:37 | XMS REPORT ---
Author Author Suman CARDOZA Organization [facility] Address [address] [place] [address] Care Team Providers Care Medical Doctor Nuclear Medicine Name Role Phone RENETTA CARDOZA Unavailable PROBLEMS Type Condition ICD9-CM Code CIP24-XF Code Onset Dates Condition S tatus SNOMED Code Problem Coronary artery disease invo lving circle heart, angina presence unspecified, unspecified vessel or lesion type I25.10 Active 51165264 Problem LAURY (obstructive sleep apnea) G47.33 Active 13799475 Problem Chronic obstructive pulmonary disease, unspecified COPD ty pe J44.9 Active 84117074 Problem Seizure disorder G40.909 Active 128 832679 Problem Erectile dysfunction, unspecified erectile dysfunction typ e N52.9 Active 760368585 Problem Other chronic pain G89.29 Active 8 5168894 Problem Tobacco abuse Z72.0 Active 817195 05 Problem Non morbid obesity E66.9 Active 4 21642742 Problem Non morbid obesity due to excess calories E66.09 Active 079830515 Problem Other obesity due to excess calories E66.09 Active 246258907 Problem Panlobular emphysema J43.1 Active 4199643 Problem COPD exacerbation J44.1 Active 19 7721074 Problem COPD with acute exacerbation J44.1 A ctive 679585805 Problem 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 Active [id number] 7 Problem Chronic major depressive disorder, recurrent episode F33.9 Active 79138675 Problem RLS (restless legs syndrome) G25.81 A ctive 81205483 Problem Recurrent major depressive disorder, remission s tatus unspecified F33.9 Active 48512460 Problem Morbid obesity due to excess calories E66.01 Active 661858441 Problem Flexural eczema L20.82 Active 5709 2006 Problem Hypertension, benign I10 Active 53493331 Problem Palpitations R00.2 Active 1565185 2 Problem Restless leg syndrome G25.81 Active 12294712 Problem Primary insomnia F51.01 Active 397 2004 Problem Atherosclerotic heart diseas e of circle coronary artery with other forms of angina pectoris I25.118 Active 338945475 Problem Type 2 diabetes mellitus wit hout complication, unspecified whether medical terminologist insulin use E11.9 Active 706956899 ALLERGIES No Information ENCOUNTERS Encounter Location Date Diagnosis [facility] [address] [facility] [id number] [address] [place] [phone] 29 Mar, 2020 Chronic obstructive pulmonar y disease, unspecified COPD type J44.9 ; Flexural eczema L20.82 ; Type 2 diabetes mellitus without complication, unspecified whether group home insulin use E11.9 and Recurrent major depressive disorder, remission status unspecified F33.9 [facility] [address] [facility] [id number] [address] [place] [phone] 26 Mar, 2020 COPD exacerbation J44.1 [place] [address] [facility] [id number] [address] [place] [phone] February, [facility] [address] [facility] [id number] [address] [place] [phone] February, [facility] [address] [facility] [id number] [address] [place] [phone] February, Chronic obstructive pulmonar y disease, unspecified COPD type J44.9 ; Tobacco abuse Z72.0 ; Tobacco abuse counseling Z71.6 and Primary insomnia F51.01 [place] [address] [facility] [id number] [address] [place] [phone] February, [facility] [address] [facility] [id number] [address] [place] [phone] February, Chronic obstructive pulmonar y disease, unspecified COPD type J44.9 and Coronary artery disease involving circle heart, angina presence unspecified, unspecified vessel or lesion type I25.10 [facility] [address] [facility] [id number] [address] [place] [phone] February, [facility] [address] [facility] [id number] [address] [place] [phone] February, Right leg swelling M79.89 [facility] [address] [id number] [address] [place] [phone] Jan, Dependent edema R60.9 [facility] [address] [id number] [address] [place] [phone] Jan, Dependent edema R60.9 [facility] [address] [id number] [address] [place] [phone] Jan, Hyperglycemia R73.9 and Loca lized edema R60.0 [facility] [address] [id number] [address] [place] [phone] Jan, [facility] [address] [id number] [address] [place] [phone] Jan, Counseled by nurse Leroy71.9 [facility] [address] [id number] [address] [place] [phone] Jan, Hyperglycemia R73.9 and Loca lized edema R60.0 [facility] [address] [id number] [address] [place] [phone] Jan, [facility] [address] [id number] [address] [place] [phone] Jan, [facility] [address] [id number] [address] [place] [phone] Jan, Hyperglycemia R73.9 [facility] [address] [id number] [address] [place] [phone] Jan, Hyperglycemia R73.9 [facility] [address] [id number] [address] [place] [phone] Jan, Coronary artery disease invo lving circle heart, angina presence unspecified, unspecified vessel or lesion type I25.10 and Localized edema R60.0 [facility] [address] [id number] [address] [place] [phone] Jan, [facility] [address] [id number] [address] [place] [phone] 15 Jan, 2020 Coronary artery disease invo lving circle heart, angina presence unspecified, unspecified vessel or lesion type I25.10 and Localized edema R60.0 [facility] [address] [place] [id number] [address] [place] [phone] 14 Jan, 2020 Bilateral edema of lower ext remity R60.0 and SOB (shortness of breath) R06.02 [place] [address] [address] 05 Dec, 2019 Chronic obstructive pulmonar y disease, unspecified COPD type J44.9 ; Non morbid obesity due to excess calories E66.09 ; Seizure disorder G40.909 ; Atherosclerotic heart disease of circle coronary artery with other forms of angina pectoris I25.118 ; Other chronic pain G89.29 ; Pain in right knee M25.561 and RLS (restless legs syndrome) G25.81 [facility] [address] [place] [id number] [address] [place] [phone] 20 Nov, 2019 COPD exacerbation J44.1 and Cough R05 [place] [address] [place] [id number] [address] [place] [phone] 20 Nov, 2019 [place] [address] [place] [id number] [address] [place] [phone] 06 Nov, 2019 Chronic obstructive pulmonar y disease, unspecified COPD type J44.9 [place] [address] [place] [id number] [address] [place] [phone] 03 Nov, 2019 [facility] [address] [place] [id number] [address] [place] [phone] 30 Oct, 2019 COPD exacerbation J44.1 and Tobacco abuse Z72.0 [place] [address] [place] [id number] [address] [place] [phone] 14 Oct, 2019 [place] [address] [place] [id number] [address] [place] [phone] 14 Oct, 2019 Right knee pain, unspecified chronicity M25.561 [place] [address] [place] [phone] Sep, Restless leg syndrome G25.81 and Primary insomnia F51.01 [facility] [address] [address] Sep, Chronic obstructive pulmonar y disease, unspecified COPD type J44.9 and COPD exacerbation J44.1 [place] [address] [phone] Sep, RLS (restless legs syndrome) G25.81 [place] [address] [address] Aug, Other chronic pain G89.29 ; Pain in right knee M25.561 ; Seizures R56.9 ; Coronary artery disease of circle artery of circle heart with stable angina pectoris I25.118 and Chronic major depressive disorder, recurrent episode F33.9 [facility] [address] [id number] Jul, Right knee pain, unspecified chronicity M25.561 [place] [address] [address] Jul, [place] [address] [address] Jul, Foot pain, right M79.671 ; M orbid obesity due to excess calories E66.01 ; Seizures R56.9 and Encounter for immunization Z23 [place] [address] [address] Jun, [place] [address] [address] Jun, Non morbid obesity due to ex cess calories E66.09 and Foot callus L84 [place] [address] [id number] May, [facility] [address] [place] [address] May, Flank pain R10.9 [facility] [address] [facility] [id number] [address] [place] [phone] May, Focal seizures R56.9 [facility] [address] [facility] [id number] [address] [place] [phone] May, COPD exacerbation J44.1 and Non morbid obesity E66.9 [facility] [address] [id number] [address] [place] [phone] May, Seizure disorder G40.909 [facility] [address] [facility] [id number] [address] [place] [phone] May, [facility] [address] [facility] [id number] [address] [place] [phone] May, [facility] [address] [facility] [id number] [address] [place] [phone] May, Abscess of left foot L02.612 [facility] [address] [facility] [id number] [address] [place] [phone] Apr, Cellulitis of left lower ext remity L03.116 [facility] [address] [facility] [id number] [address] [place] [phone] Apr, [facility] [address] [facility] [id number] [address] [place] [phone] Apr, [facility] [address] [facility] [id number] [address] [place] [phone] Apr, Cellulitis of left foot L03. 116 [facility] [address] [facility] [id number] [address] [place] [phone] Apr, Chronic obstructive pulmonar y disease, unspecified COPD type J44.9 and Seizures R56.9 [facility] [address] [facility] [id number] [address] [place] [phone] Mar, [facility] [address] [facility] [id number] [address] [place] [phone] Mar, [facility] [address] [facility] [id number] [address] [place] [phone] Mar, [facility] [address] [facility] [id number] [address] [place] [phone] February, [facility] [address] [facility] [id number] [address] [place] [phone] February, [facility] [address] [facility] [id number] [address] [place] [phone] Jan, [facility] [address] [facility] [id number] [place] [phone] Aug, Wheezes R06.2 and Pneumonia J18.9 [place] [address] [place] [id number] [place] [address] Aug, Erectile dysfunction, unspec ified erectile dysfunction type N52.9 [facility] [address] [place] [id number] [place] [address] Aug, Non morbid obesity E66.9 [facility] [address] [place] [id number] [place] [phone] Jul, [facility] [address] [facility] [id number] [address] [place] [phone] Jul, Testicular swelling, right N 50.89 [facility] [address] [place] [id number] [place] [phone] Jul, Callus L84 [facility] [address] [place] [id number] [address] [place] [id number] Jun, Non morbid obesity E66.9 ; C OPD exacerbation J44.1 ; 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 and Dermatofibroma D23.9 [facility] [address] [facility] [id number] [address] [place] [phone] May, Non morbid obesity E66.9 and Grade II hemorrhoids K64.1 [place] [address] [place] [id number] [address] [place] [phone] Mar, [place] [address] [address] Mar, Cough 786.2 ; Medicare annua l wellness visit, initial Z00.00 ; Morbid obesity due to excess calories E66.01 ; Chronic obstructive pulmonary disease, unspecified COPD type J44.9 ; Coronary artery disease involving circle heart, angina presence unspecified, unspecified vessel or lesion type I25.10 ; Hypertension, benign I10 and LAURY (obstructive sleep apnea) G47.[address] [address] 31 Feb, 2018 Medicare annual wellness vis [...] G89.29 and Pain in right hip M25.551 [place] [address] [address] Jan, [place] [address] [address] Nov, Panlobular emphysema J43.1 [place] [address] [place] [id number] [address] [place] [phone] Nov, COPD exacerbation J44.1 [place] [address] [address] Nov, Viral URI J06.9 [place] [address] [place] [id number] [place] [address] Nov, [place] [address] [address] Nov, [facility] [address] [facility] [id number] [address] [place] [phone] Sep, Other obesity due to excess calories E66.09 and Body mass index (BMI) of 36.0-36.9 in adult Z68.36 [facility] [address] [facility] [id number] [address] [place] [phone] Aug, [facility] [address] [facility] [id number] [address] [place] [phone] Aug, [facility] [address] [facility] [id number] [address] [place] [phone] Aug, Coronary artery disease invo lving circle heart, angina presence unspecified, unspecified vessel or lesion type I25.10 and Chronic obstructive pulmonary disease, unspecified COPD type J44.9 [facility] [address] [facility] [id number] [address] [place] [id number] Jul, COPD with acute exacerbation J44.1 [facility] [address] [facility] [id number] [address] [place] [phone] Jul, Non morbid obesity E66.9 [place] [address] [facility] [id number] [address] [place] [phone] Jun, Panlobular emphysema J43.1 ; Tobacco abuse Z72.0 ; Tobacco abuse counseling Z71.6 and Non morbid obesity E66.9 [facility] [address] [facility] [id number] [address] [place] [phone] Apr, [facility] [address] [facility] [id number] [address] [place] [phone] Apr, [place] [address] [place] [id number] [address] [place] [id number] Mar, COPD exacerbation J44.1 [place] [address] [facility] [id number] [address] [place] [id number] Mar, Tear of medial meniscus of r ight knee, current, unspecified tear type, initial encounter S83.241A [facility] [address] [id number] [address] [place] [phone] Mar, Pain in right knee M25.561 [facility] [address] [id number] [address] [place] [address] February, Pain in right knee M25.561 [facility] [address] [facility] [id number] [address] [place] [phone] February, Pain in right knee M25.561 [facility] [address] [id number] [address] [place] [phone] Dec, [place] [address] [facility] [id number] [address] [place] [phone] Nov, [facility] [address] [facility] [id number] [address] [place] [phone] Nov, Bronchitis J40 and Wheezing R06.2 [place] [address] [facility] [id number] [address] [place] [phone] Oct, [facility] [address] [facility] [id number] [address] [place] [phone] Oct, [place] [address] [facility] [id number] [address] [place] [address] Oct, Non morbid obesity due to ex cess calories E66.09 ; Other chronic pain G89.29 and Pain in right knee M25.561 [facility] [address] [facility] [id number] [address] [place] [address] Oct, Non morbid obesity due to ex cess calories E66.09 ; Other chronic pain G89.29 and Pain in right knee M25.561 [facility] [address] [facility] [id number] [address] [place] [address] Oct, Pain in right knee M25.561 a nd Other chronic pain G89.29 [place] [address] [facility] [id number] [address] [place] [address] Aug, Encounter for immunization Z 23 [facility] [address] [facility] [id number] [address] [place] [phone] 09 Aug, 2016 [facility] [address] [place] [id number] [place] [address] 09 Aug, 2016 [facility] [address] [facility] [id number] [address] [place] [id number] 02 Jun, 2016 Common wart B07.8 [facility] [address] [facility] [id number] [address] [place] [address] May, Cellulitis of left elbow L03 .114 [place] [address] [place] [id number] [place] [address] Mar, Torticollis, acute M43.6 and Leg pain, left M79.605 [place] [address] [place] [id number] [place] [address] February, Leg pain, left M79.605 [facility] [address] [place] [id number] [address] [place] [phone] Dec, COPD exacerbation J44.1 [place] [address] [address] Dec, [facility] [address] [place] [id number] [place] [address] Oct, Chronic obstructive pulmonar y disease, unspecified COPD type J44.9 and Hyperglycemia R73.9 [facility] [address] [place] [id number] [address] [place] [phone] Sep, Tobacco abuse Z72.0 ; Figueroa ry artery disease involving circle heart, angina presence unspecified, unspecified vessel or lesion type I25.10 and Morbid obesity due to excess calories E66.01 [facility] [address] [place] [id number] [address] [place] [id number] 14 Sep, 2015 [facility] [address] [address] Sep, Leg pain, left M79.605 [facility] [address] [place] [id number] [address] [place] [phone] Sep, [facility] [address] [place] [id number] [place] [phone] Sep, [facility] [address] [address] Aug, Essential (primary) hyperten autumn I10 [facility] [address] [address] Aug, Encounter for immunization Z 23 [facility] [address] [address] Aug, [facility] [address] [id number] May, Chronic airway obstruction, not elsewhere classified 496 [facility] [address] [id number] May, [facility] [address] [id number] May, [facility] [address] [address] May, Acute bronchitis 466.0 [facility] [address] [id number] May, [facility] [address] [id number] May, Hyperglycemia 790.29 [facility] [address] [id number] Apr, [facility] [address] [id number] Apr, Cough 786.2 ; Hyperglycemia 790.29 and COPD (chronic obstructive pulmonary disease) 496 [facility] [address] [address] 30 Mar, 2015 Cough 786.2 ; Elevated gluco se 790.29 ; Wheezing 786.07 ; COPD exacerbation 491.21 and Nicotine dependence 305.1 [facility] [address] [id number] [address] [place] [id number] 16 Mar, 2015 High risk medication use V58 .69 [facility] [address] [facility] [id number] [address] [place] [id number] Mar, High risk medication use V58 .69 and Benign hypertension 401.1 [facility] [address] [id number] [address] [place] [id number] Mar, [facility] [address] [id number] [address] [place] [id number] February, [facility] [address] [facility] [id number] [address] [place] [id number] February, [facility] [address] [id number] [address] [place] [id number] Jan, [facility] [address] [id number] [address] [place] [id number] 30 Jan, 2015 Benign hypertension 401.1 [facility] [address] [facility] [id number] [address] [place] [id number] 14 Jan, 2015 [facility] [address] [id number] [address] [id number] Jan, [facility] [address] [id number] [address] [address] Dec, [facility] [address] [id number] [address] [address] Dec, [facility] [address] [facility] [id number] [address] [place] [address] Dec, [facility] [address] [facility] [id number] [address] [place] [id number] 18 Dec, 2014 [facility] [address] [id number] [address] [place] [address], [place] [address] 18 Dec, 2014 [facility] [address] [id number] [address] [place] [address], [place] [address] 2014 [facility] [address] [id number] [address] [place] [address], [place] [address] 2014 [facility] [address] [id number] [address] [place] [address], [place] [address] 13 Dec, 2014 [facility] [address] [id number] [address] [place] [address], [place] [address] 13 Dec, 2014 [facility] [address] [id number] [address] [place] [address], [place] [address] 06 Dec, 2014 [facility] [address] [id number] [address] [place] [address], [place] [address] 06 Dec, 2014 [facility] [address] [id number] [address] [place] [address], [place] [address] 05 Dec, 2014 [facility] [address] [id number] [address] [place] [address], [place] [address] 05 Dec, 2014 [facility] [address] [id number] [address] [place] [address], [place] [address] Dec, [facility] [address] [id number] [address] [place] [address], [place] [address] Dec, [facility] [address] [id number] [address] [place] [address], [place] [address] 16 Nov, 2014 [facility] [address] [id number] [address] [place] [address], [place] [address] Nov, 2014 [facility] [address] [id number] [address] [place] [address], [place] [address] Nov, [facility] [address] [id number] [address] [place] [address], [place] [address] Nov, 2014 [facility] [address] [id number] [address] [place] [address], [place] [address] Oct, [facility] [address] [id number] [address] [place] [address], [place] [address] Oct, [facility] [address] [id number] [address] [place] [address], [place] [address] Oct, [facility] [address] [id number] [address] [place] [address], [place] [address] Oct, [facility] [address] [id number] [address] [place] [address], [place] [address] Oct, [facility] [address] [id number] [address] [place] [address], [place] [address] Oct, [facility] [address] [id number] [address] [place] [address], [place] [address] Oct, [facility] [address] [id number] [address] [place] [address], [place] [address] Oct, [facility] [address] [id number] [address] [place] [address], [place] [address] Sep, [facility] [address] [id number] [address] [place] [address], [place] [address] Sep, [facility] [address] [id number] [address] [place] [address], [place] [address] Sep, [facility] [address] [id number] [address] [place] [address], [place] [address] Sep, [facility] [address] [id number] [address] [place] [address], [place] [address] Sep, [facility] [address] [id number] [address] [place] [address], [place] [address] Sep, [facility] [address] [id number] [address] [place] [address], [place] [address] Sep, [facility] [address] [id number] [address] [place] [address], [place] [address] Sep, [facility] [address] [id number] [address] [place] [address], [place] [address] Aug, [facility] [address] [id number] [address] [place] [address], [place] [address] Aug, [facility] [address] [id number] [address] [place] [address], [place] [address] Aug, [facility] [address] [id number] [address] [place] [address], [place] [address] Aug, [facility] [address] [id number] [address] [place] [address], [place] [address] Jul, [facility] [address] [id number] [address] [place] [address], [place] [address] Jul, [facility] [address] [id number] [address] [place] [address], [place] [address] Jul, [facility] [address] [id number] [address] [place] [address], [place] [address] Jul, [facility] [address] [id number] [address] [place] [address], [place] [address] Jul, [facility] [address] [id number] [address] [place] [address], [place] [address] Jul, [facility] [address] [id number] [address] [place] [address], [place] [address] Jul, [facility] [address] [id number] [address] [place] [address], [place] [address] Jul, [facility] [address] [id number] [address] [place] [address], [place] [address] Jul, [facility] [address] [id number] [address] [place] [address], [place] [address] Jul, [facility] [address] [id number] [address] [place] [address], [place] [address] Jul, [facility] [address] [id number] [address] [place] [address], [place] [address] Jul, [facility] [address] [id number] [address] [place] [address], [place] [address] Jul, [facility] [address] [id number] [address] [place] [address], [place] [address] Jul, [facility] [address] [id number] [address] [place] [address], [place] [address] Jul, 2013 [facility] [address] [id number] [address] [place] [address], [place] [address] Jul, 2013 [facility] [address] [id number] [address] [place] [address], [place] [address] Jul, [facility] [address] [id number] [address] [place] [address], [place] [address] Jul, [facility] [address] [id number] [address] [place] [address], [place] [address] Jul, [facility] [address] [id number] [address] [place] [address], [place] [address] Jul, [facility] [address] [id number] [address] [place] [address], [place] [address] Jul, [facility] [address] [id number] [address] [place] [address], [place] [address] Jul, [facility] [address] [id number] [address] [place] [address], [place] [address] 29 Jun, 2013 [facility] [address] [id number] [address] [place] [address], [place] [address] 29 Sep, 2013 [facility] [address] [id number] [address] [place] [address], [place] [address] 17 Sep, 2013 [facility] [address] [id number] [address] [place] [address], [place] [address] 17 Jun, 2013 [facility] [address] [id number] [address] [place] [address], [place] [address] 05 Sep, 2013 [facility] [address] [id number] [address] [place] [address], [place] [address] Jun, 2013 [facility] [address] [id number] [facility] [address] Jun, 2013 [facility] [address] [id number] [address] [place] [address], [place] [address] Jun, [facility] [address] [id number] [address] [place] [address], [place] [address] Jun, 2013 [facility] [address] [id number] [address] [place] [address], [place] [address] Jun, [facility] [address] [id number] [address] [place] [address], [place] [address] May, [facility] [address] [id number] [address] [place] [address], [place] [address] May, [facility] [address] [id number] [address] [place] [address], [place] [address] May, [facility] [address] [id number] [address] [place] [address], [place] [address] May, [facility] [address] [id number] [address] [place] [address], [place] [address] May, [facility] [address] [id number] [address] [place] [address], [place] [address] May, [facility] [address] [id number] [address] [place] [address], [place] [address] May, [facility] [address] [id number] [address] [place] [address], [place] [address] May, [facility] [address] [id number] [address] [place] [address], [place] [address] Apr, [facility] [address] [id number] [address] [place] [address], [place] [address] Apr, [facility] [address] [id number] [address] [place] [address], [place] [address] Apr, [facility] [address] [id number] [facility] [address] Apr, [facility] [address] [id number] [address] [place] [address], [place] [address] Apr, [facility] [address] [id number] [address] [place] [address], [place] [address] Apr, [facility] [address] [id number] [address] [place] [address], [place] [address] Mar, [facility] [address] [id number] [address] [place] [address], [place] [address] Mar, [facility] [address] [id number] [address] [place] [address], [place] [address] Mar, [facility] [address] [id number] [address] [place] [address], [place] [address] Mar, [facility] [address] [id number] [address] [place] [address], [place] [address] Mar, [facility] [address] [id number] [address] [place] [address], [place] [address] Mar, [facility] [address] [id number] [address] [place] [address], [place] [address] Mar, [facility] [address] [id number] [address] [place] [address], [place] [address] Mar, [facility] [address] [id number] [address] [place] [address], [place] [address] February, [facility] [address] [id number] [address] [place] [address], [place] [address] February, [facility] [address] [id number] [address] [place] [address], [place] [address] February, [facility] [address] [id number] [address] [place] [address], [place] [address] February, [facility] [address] [id number] [address] [place] [address], [place] [address] February, [facility] [address] [id number] [address] [place] [address], [place] [address] Jan, [facility] [address] [id number] [address] [place] [address], [place] [address] Jan, [facility] [address] [id number] [address] [place] [address], [place] [address] Nov, [facility] [address] [id number] [address] [place] [address], [place] [address] Nov, [facility] [address] [id number] [address] [place] [address], [place] [address] Nov, [facility] [address] [id number] [address] [place] [address], [place] [address] Nov, [facility] [address] [id number] [address] [place] [address], [place] [address] Nov, [facility] [address] [id number] [address] [place] [address], [place] [address] Nov, [facility] [address] [id number] [address] [place] [address], [place] [address] Oct, [facility] [address] [id number] [address] [place] [address], [place] [address] Oct, [facility] [address] [id number] [address] [place] [address], [place] [address] Oct, [facility] [address] [id number] [address] [place] [address], [place] [address] Sep, [facility] [address] [id number] [address] [place] [address], [place] [address] Sep, [facility] [address] [id number] [address] [place] [address], [place] [address] Aug, [facility] [address] [id number] [address] [place] [address], [place] [address] Aug, [facility] [address] [id number] [address] [place] [address], [place] [address] Aug, [facility] [address] [id number] [address] [place] [address], [place] [address] Aug, [facility] [address] [id number] [address] [place] [address], [place] [address] Jul, [facility] [address] [id number] [address] [place] [address], [place] [address] Jul, [facility] [address] [id number] [address] [place] [address], [place] [address] Jul, [facility] [address] [id number] [address] [place] [address], [place] [address] Jul, [facility] [address] [id number] [address] [place] [address], [place] [address] Jul, [facility] [address] [id number] [address] [place] [address], [place] [address] Jun, [facility] [address] [id number] [address] [place] [address], [place] [address] Jun, [facility] [address] [id number] [address] [place] [address], [place] [address] May, [facility] [address] [id number] [address] [place] [address], [place] [address] May, [facility] [address] [id number] [address] [place] [address], [place] [address] May, [facility] [address] [id number] [address] [place] [address], [place] [address] May, [facility] [address] [id number] [address] [place] [address], [place] [address] May, [facility] [address] [id number] [address] [place] [address], [place] [address] May, [facility] [address] [id number] [address] [place] [address], [place] [address] Apr, [facility] [address] [id number] [address] [place] [address], [place] [address] Apr, [facility] [address] [id number] [address] [place] [address], [place] [address] Apr, [facility] [address] [id number] [address] [place] [address], [place] [address] Apr, [facility] [address] [id number] [address] [place] [address], [place] [address] Apr, [facility] [address] [id number] [address] [place] [address], [place] [address] Mar, [facility] [address] [id number] [address] [place] [address], [place] [address] Mar, [facility] [address] [id number] [address] [place] [address], [place] [address] Mar, [facility] [address] [id number] [address] [place] [address], [place] [address] February, [facility] [address] [id number] [address] [place] [address], [place] [address] February, [facility] [address] [id number] [address] [place] [address], [place] [address] February, [facility] [address] [id number] [address] [place] [address], [place] [address] Dec, [facility] [address] [id number] [address] [place] [address], [place] [address] Dec, [facility] [address] [id number] [address] [place] [address], [place] [address] Dec, [facility] [address] [id number] [address] [place] [address], [place] [address] Oct, [facility] [address] [id number] [address] [place] [address], [place] [address] Oct, [facility] [address] [id number] [address] [place] [address], [place] [address] Sep, [facility] [address] [id number] [address] [place] [address], [place] [address] Sep, [facility] [address] [id number] [address] [place] [address], [place] [address] Aug, [facility] [address] [id number] [address] [place] [address], [place] [address] Aug, [facility] [address] [id number] [address] [place] [address] Aug, [facility] [address] [id number] [address] [place] [address], [place] [address] Aug, [facility] [address] [id number] [address] [place] [address], [place] [address] Aug, [facility] [address] [id number] [address] [place] [address], [place] [address] Aug, [facility] [address] [id number] [address] [place] [address], [place] [address] Jul, [facility] [address] [id number] [address] [place] [address], [place] [address] Jul, [facility] [address] [id number] [address] [place] [address] Jul, [facility] [address] [id number] [address] [place] [address] Jul, [facility] [address] [id number] [address] [place] [address] Jul, [facility] [address] [id number] [address] [place] [address], [place] [address] Jul, [facility] [address] [id number] [address] [place] [address], [place] [address] Jun, [facility] [address] [id number] [address] [place] [address], [place] [address] Jun, [facility] [address] [id number] [address] [place] [id number] 15 Jun, 2012 [facility] [address] [facility] [id number] [address] [place] [id number] 15 Jun, 2012 IMMUNIZATIONS No Known Immunizations SOCIAL HISTORY Never Assessed REASON FOR VISIT PLAN OF CARE VITAL SIGNS Height 72 in 2013-07-10 Weight 262.7 lbs 2013-07-10 Temperature 97.5 degrees Fahrenheit 2013-07-10 Heart Rate 84 bpm 2013-07-10 Respiratory Rate 20 2013-07-10 Blood pressure systolic 140 mmHg 2013-07-10 Blood pressure diastolic 80 mmHg 2013-07-10 MEDICATIONS Unknown Medications RESULTS No Results PROCEDURES [...] legs 02/2019 Hospitalization History surgeries Hospitalization History [facility]- Viral infection Aug 26 Hospitalization History [facility] [place]- Flu Sx 12/10/2016 Hospitalization History [facility] [place]- Congestion, runny n ose and abd pain 12/21/2017
--- OUTSIDE RECORDS SUMMARY | 2020-05-11 18:38 | XMS REPORT ---
Author Author Suman CARDOZA Organization [facility] [place] Address [address] [place] [address] Care Team Providers Care Breast Trimmer Name Role Phone RENETTA CARDOZA Unavailable PROBLEMS Type Condition ICD9-CM Code BTP40-LZ Code Onset Dates Condition S tatus SNOMED Code Problem Coronary artery disease invo lving [place] heart, angina presence unspecified, unspecified vessel or lesion type I25.10 Active 77308069 Problem LAURY (obstructive sleep apnea) G47.33 Active 92864687 Problem Chronic obstructive pulmonary disease, unspecified COPD ty pe J44.9 Active 70191599 Problem Seizure disorder G40.909 Active 128 534944 Problem Erectile dysfunction, unspecified erectile dysfunction typ e N52.9 Active 398973069 Problem Other chronic pain G89.29 Active 8 8357178 Problem Tobacco abuse Z72.0 Active 468643 05 Problem Non morbid obesity E66.9 Active 4 65270996 Problem Non morbid obesity due to excess calories E66.09 Active 685885960 Problem Other obesity due to excess calories E66.09 Active 364468478 Problem Panlobular emphysema J43.1 Active 3864525 Problem COPD exacerbation J44.1 Active 19 8974114 Problem COPD with acute exacerbation J44.1 A ctive 384967251 Problem 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 Active [id number] Problem Chronic major depressive disorder, recurrent episode F33.9 Active 48024081 Problem RLS (restless legs syndrome) G25.81 A ctive 66988285 Problem Recurrent major depressive disorder, remission s tatus unspecified F33.9 Active 58970353 Problem Morbid obesity due to excess calories E66.01 Active 108647828 Problem Flexural eczema L20.82 Active 5709 2006 Problem Hypertension, benign I10 Active 30195394 Problem Palpitations R00.2 Active 7704321 2 Problem Restless leg syndrome G25.81 Active 35951366 Problem Primary insomnia F51.01 Active 397 2004 Problem Atherosclerotic heart diseas e of [place] coronary artery with other forms of angina pectoris I25.118 Active 893523756 Problem Type 2 diabetes mellitus wit hout complication, 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 [address] [facility] [id number] [address] [place] [id number] 26 Mar, 2020 COPD exacerbation J44.1 [place] [address] [facility] [id number] [address] [place] [phone] February, [facility] [place] [address] [facility] [id number] [address] [place] [phone] February, [facility] [place] [address] [facility] [id number] [address] [place] [phone] February, Chronic obstructive pulmonar y disease, unspecified COPD type J44.9 ; Tobacco abuse Z72.0 ; Tobacco abuse counseling Z71.6 and Primary insomnia F51.01 [place] [address] [facility] [id number] [address] [place] [phone] February, [facility] [place] [address] [facility] [id number] [address] [place] [phone] February, Chronic obstructive pulmonar y disease, unspecified COPD type J44.9 and Coronary artery disease involving [place] heart, angina presence unspecified, unspecified vessel or lesion type I25.10 [facility] [place] [address] [facility] [id number] [address] [place] [phone] February, [facility] [address] [facility] [id number] [address] [place] [phone] February, Right leg swelling M79.89 [facility] [place] [address] [id number] [address] [place] [phone] Jan, Dependent edema R60.9 [facility] [address] [id number] [address] [place] [phone] Jan, Dependent edema R60.9 [facility] [place] [address] [id number] [address] [place] [phone] Jan, Hyperglycemia R73.9 and Loca lized edema R60.0 [facility] [place] [address] [id number] [address] [place] [phone] Jan, [facility] [place] [address] [id number] [address] [place] [phone] Jan, Counseled by nurse [email or web address] [facility] [place] [address] [id number] [address] [place] [phone] Jan, Hyperglycemia R73.9 and Loca lized edema R60.0 [facility] [place] [address] [id number] [address] [place] [phone] Jan, [facility] [place] [address] [id number] [address] [place] [phone] Jan, [facility] [place] [address] [id number] [address] [place] [phone] Jan, Hyperglycemia R73.9 [facility] [place] [address] [id number] [address] [place] [phone] Jan, Hyperglycemia R73.9 [facility] [place] [address] [id number] [address] [place] [phone] Jan, Coronary artery disease invo lving [place] heart, angina presence unspecified, unspecified vessel or lesion type I25.10 and Localized edema R60.0 [facility] [place] [address] [id number] [address] [place] [phone] Jan, [facility] [place] [address] [id number] [address] [place] [id number] 15 Jan, 2020 Coronary artery disease invo lving [place] heart, angina presence unspecified, unspecified vessel or lesion type I25.10 and Localized edema R60.0 [facility] [address] [place] [id number] [address] [place] [phone] 14 Jan, 2020 Bilateral edema of lower ext remity R60.0 and SOB (shortness of breath) R06.02 [place] [address] [address] 05 Dec, 2019 Chronic obstructive pulmonar y disease, unspecified COPD type J44.9 ; Non morbid obesity due to excess calories E66.09 ; Seizure disorder G40.909 ; Atherosclerotic heart disease of [place] coronary artery with other forms of angina pectoris I25.118 ; Other chronic pain G89.29 ; Pain in right knee M25.561 and RLS (restless legs syndrome) G25.81 [facility] [address] [place] [id number] [address] [place] [id number] 20 Nov, 2019 COPD exacerbation J44.1 and Cough R05 [place] [address] [place] [id number] [address] [place] [id number] 20 Nov, 2019 [place] [address] [place] [id number] [address] [place] [id number] 06 Nov, 2019 Chronic obstructive pulmonar y disease, unspecified COPD type J44.9 [place] [address] [place] [id number] [address] [place] [phone] 03 Nov, 2019 [facility] [address] [place] [id number] [address] [place] [phone] 30 Oct, 2019 COPD exacerbation J44.1 and Tobacco abuse Z72.0 [place] [address] [place] [id number] [address] [place] [id number] 14 Oct, 2019 [place] [address] [place] [id number] [address] [place] [id number] 14 Oct, 2019 Right knee pain, unspecified chronicity M25.561 [place] [address] [place] [address] Sep, Restless leg syndrome G25.81 and Primary insomnia F51.01 [facility] [address] [address] Sep, Chronic obstructive pulmonar y disease, unspecified COPD type J44.9 and COPD exacerbation J44.1 [place] [address] [address] Sep, RLS (restless legs syndrome) G25.81 [place] [address] [address] Aug, Other chronic pain G89.29 ; Pain in right knee M25.561 ; Seizures R56.9 ; Coronary artery disease of [place] artery of [place] heart with stable angina pectoris I25.118 and Chronic major depressive disorder, recurrent episode F33.9 [facility] [address] [address] Jul, Right knee pain, unspecified chronicity M25.561 [place] [address] [address] Jul, [place] [address] [address] Jul, Foot pain, right M79.671 ; M orbid obesity due to excess calories E66.01 ; Seizures R56.9 and Encounter for immunization Z23 [place] [address] [address] Jun, [place] [address] [address] Jun, Non morbid obesity due to ex cess calories E66.09 and Foot callus L84 [place] [address] [address] May, [facility] [address] [place] [address] May, Flank pain R10.9 [facility] [place] [address] [facility] [id number] [address] [place] [phone] May, Focal seizures R56.9 [facility] [place] [address] [facility] [id number] [address] [place] [phone] May, COPD exacerbation J44.1 and Non morbid obesity E66.9 [facility] [place] [address] [id number] [address] [place] [id number] May, Seizure disorder G40.909 [facility] [place] [address] [facility] [id number] [address] [place] [phone] May, [facility] [place] [address] [facility] [id number] [address] [place] [phone] May, [facility] [place] [address] [facility] [id number] [address] [place] [address] May, Abscess of left foot L02.612 [facility] [place] [address] [facility] [id number] [address] [place] [address] Apr, Cellulitis of left lower ext remity L03.116 [facility] [place] [address] [facility] [id number] [address] [place] [phone] Apr, [facility] [place] [address] [facility] [id number] [address] [place] [phone] Apr, [facility] [address] [facility] [id number] [address] [place] [phone] Apr, Cellulitis of left foot L03. 116 [facility] [place] [address] [facility] [id number] [address] [place] [address] Apr, Chronic obstructive pulmonar y disease, unspecified COPD type J44.9 and Seizures R56.9 [facility] [place] [address] [facility] [id number] [address] [place] [phone] Mar, [facility] [place] [address] [facility] [id number] [address] [place] [phone] Mar, [facility] [place] [address] [facility] [id number] [address] [place] [phone] Mar, [facility] [place] [address] [facility] [id number] [address] [place] [phone] February, [facility] [place] [address] [facility] [id number] [address] [place] [phone] February, [facility] [place] [address] [facility] [id number] [address] [place] [phone] Jan, [facility] [address] [facility] [id number] [place] [id number] Aug, Wheezes R06.2 and Pneumonia J18.9 [place] [address] [place] [id number] [place] [address] Aug, Erectile dysfunction, unspec ified erectile dysfunction type N52.9 [facility] [place] [address] [place] [id number] [place] [address] Aug, Non morbid obesity E66.9 [facility] [address] [place] [id number] [place] [address] Jul, [facility] [address] [facility] [id number] [address] [place] [id number] Jul, Testicular swelling, right N 50.89 [facility] [place] [address] [place] [id number] [place] [phone] Jul, Callus L84 [facility] [place] [address] [place] [id number] [address] [place] [phone] Jun, Non morbid obesity E66.9 ; C OPD exacerbation J44.1 ; 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 and Dermatofibroma D23.9 [facility] [place] [address] [facility] [id number] [address] [place] [phone] May, Non morbid obesity E66.9 and Grade II hemorrhoids K64.1 [place] [address] [place] [id number] [address] [place] [address] Mar, [place] [address] [address] Mar, Cough 786.2 ; Medicare annua l wellness visit, initial Z00.00 ; Morbid obesity due to excess calories E66.01 ; Chronic obstructive pulmonary disease, unspecified COPD type J44.9 ; Coronary artery disease involving [place] heart, angina presence unspecified, unspecified vessel or lesion type I25.10 ; Hypertension, benign I10 and LAURY (obstructive sleep apnea) G47.[address] [address] 31 Feb, 2018 Medicare annual wellness vis it, initial Z00.00 ; Morbid obesity due to excess calories E66.01 ; Chronic obstructive pulmonary disease, unspecified COPD type J44.9 ; Coronary artery disease involving [place] heart, angina presence unspecified, unspecified vessel or lesion type I25.10 ; Hypertension, benign I10 ; LAURY (obstructive sleep apnea) G47.33 ; Family history of colon cancer Z80.0 ; Other chronic pain G89.29 and Pain in right hip M25.551 [place] [address] [address] Jan, [place] [address] [address] Nov, Panlobular emphysema J43.1 [place] [address] [place] [id number] [address] [place] [address] Nov, COPD exacerbation J44.1 [place] [address] [address] Nov, Viral URI J06.9 [place] [address] [place] [id number] [place] [address] Nov, [place] [address] [address] Nov, [facility] [place] [address] [facility] [id number] [address] [place] [address] Sep, Other obesity due to excess calories E66.09 and Body mass index (BMI) of 36.0-36.9 in adult Z68.36 [facility] [place] [address] [facility] [id number] [address] [place] [address] Aug, [facility] [place] [address] [facility] [id number] [address] [place] [address] Aug, [facility] [place] [address] [facility] [id number] [address] [place] [address] Aug, Coronary artery disease invo lving [place] heart, angina presence unspecified, unspecified vessel or lesion type I25.10 and Chronic obstructive pulmonary disease, unspecified COPD type J44.9 [facility] [address] [facility] [id number] [address] [place] [address] Jul, COPD with acute exacerbation J44.1 [facility] [place] [address] [facility] [id number] [address] [place] [address] Jul, Non morbid obesity E66.9 [place] [address] [facility] [id number] [address] [place] [address] Jun, Panlobular emphysema J43.1 ; Tobacco abuse Z72.0 ; Tobacco abuse counseling Z71.6 and Non morbid obesity E66.9 [facility] [place] [address] [facility] [id number] [address] [place] [address] Apr, [facility] [place] [address] [facility] [id number] [address] [place] [phone] Apr, [place] [address] [place] [id number] [address] [place] [address] Mar, COPD exacerbation J44.1 [place] [address] [facility] [id number] [address] [place] [address] Mar, Tear of medial meniscus of r ight knee, current, unspecified tear type, initial encounter S83.241A [facility] [place] [address] [id number] [address] [place] [address] Mar, Pain in right knee M25.561 [facility] [address] [id number] [address] [place] [address] February, Pain in right knee M25.561 [facility] [place] [address] [facility] [id number] [address] [place] [address] February, Pain in right knee M25.561 [facility] [place] [address] [id number] [address] [place] [address] Dec, [place] [address] [facility] [id number] [address] [place] [phone] Nov, [facility] [address] [facility] [id number] [address] [place] [address] Nov, Bronchitis J40 and Wheezing R06.2 [place] [address] [facility] [id number] [address] [place] [phone] Oct, [facility] [place] [address] [facility] [id number] [address] [place] [address] Oct, [place] [address] [facility] [id number] [address] [place] [address] Oct, Non morbid obesity due to ex cess calories E66.09 ; Other chronic pain G89.29 and Pain in right knee M25.561 [facility] [place] [address] [facility] [id number] [address] [place] [address] Oct, Non morbid obesity due to ex cess calories E66.09 ; Other chronic pain G89.29 and Pain in right knee M25.561 [facility] [place] [address] [facility] [id number] [address] [place] [address] Oct, Pain in right knee M25.561 a nd Other chronic pain G89.29 [place] [id number] [facility] [id number] [address] [place] [phone] Aug, Encounter for immunization Z 23 [facility] [place] [address] [facility] [id number] [address] [place] [phone] 09 Aug, 2016 [facility] [place] [address] [place] [id number] [place] [id number] 09 Aug, 2016 [facility] [place] [address] [facility] [id number] [address] [place] [id number] 02 Jun, 2016 Common wart B07.8 [facility] [address] [facility] [place] [id number] [address] [place] [phone] May, Cellulitis of left elbow L03 .114 [place] [id number] [place] [phone] Mar, Torticollis, acute M43.6 and Leg pain, left M79.605 [place] [id number] [place] [id number] February, Leg pain, left M79.605 [facility] [id number] [address] [place] [phone] Dec, COPD exacerbation J44.1 [place] [address] [phone] Dec, [facility] [place] [id number] [place] [phone] Oct, Chronic obstructive pulmonar y disease, unspecified COPD type J44.9 and Hyperglycemia R73.9 [facility] [place] [id number] [address] [place] [phone] Sep, Tobacco abuse Z72.0 ; Figueroa ry artery disease involving [place] heart, angina presence unspecified, unspecified vessel or lesion type I25.10 and Morbid obesity due to excess calories E66.01 [facility] [place] [id number] [address] [place] [id number] 14 Sep, 2015 [facility] [place] [address] [phone] Sep, Leg pain, left M79.605 [facility] [place] [address] [id number] [place] [id number] Sep, [facility] [place] [id number] [place] [phone] Sep, [facility] [place] [address] [id number] Aug, Essential (primary) hyperten autumn I10 [facility] [place] [address] [id number] Aug, Encounter for immunization Z 23 [facility] [place] [address] [id number] Aug, [facility] [place] [address] [id number] May, Chronic airway obstruction, not elsewhere classified 496 [facility], [place] [address] [id number] May, [facility] [place] [address] [id number] May, [facility] [place] [address] [id number] May, Acute bronchitis 466.0 [facility] [place] [address] [id number] May, [facility] [place] [address] [id number] May, Hyperglycemia 790.29 [facility] [place] [address] [id number] Apr, [facility] [place] [address] [id number] Apr, Cough 786.2 ; Hyperglycemia 790.29 and COPD (chronic obstructive pulmonary disease) 496 [facility] [place] [address] [id number] 30 Mar, 2015 Cough 786.2 ; Elevated gluco se 790.29 ; Wheezing 786.07 ; COPD exacerbation 491.21 and Nicotine dependence 305.1 [facility] [place] [address] [id number] [address] [place] [id number] 16 Mar, 2015 High risk medication use V58 .69 [facility] [place] [address] [facility] [id number] [address] [place] [id number] Mar, High risk medication use V58 .69 and Benign hypertension 401.1 [facility] [place] [address] [id number] [address] [place] [id number] Mar, [facility] [place] [address] [id number] [address] [place] [id number] February, [facility] [place] [address] [facility] [id number] [address] [place] [id number] February, [facility] [place] [address] [id number] [address] [place] [id number] Jan, [facility] [place] [address] [id number] [address] [place] [id number] 30 Jan, 2015 Benign hypertension 401.1 [facility] [place] [address] [facility] [id number] [address] [place] [id number] 14 Jan, 2015 [facility] [place] [address] [id number] [address] [place] [id number] Jan, [facility] [place] [address] [facility] [id number] [address] [place] [id number] Dec, [facility] [place] [address] [id number] [address] [place] [id number] Dec, [facility] [place] [address] [facility] [id number] [address] [place] [id number] Dec, [facility] [place] [address] [facility] [id number] [address] [place] [id number] 18 Dec, 2014 [facility] [address] [id number] [address] [place] [address], [place] [address] 18 Dec, 2014 [facility] [address] [id number] [address] [place] [address], [place] [address] 2014 [facility] [address] [id number] [address] [place] [address], [place] [address] 2014 [facility] [address] [id number] [address] [place] [address], [place] [address] 13 Dec, 2014 [facility] [address] [id number] [address] [place] [address], [place] [address] 13 Dec, 2014 [facility] [address] [id number] [address] [place] [address], [place] [address] 06 Dec, 2014 [facility] [address] [id number] [address] [place] [address], [place] [address] 06 Dec, 2014 [facility] [address] [id number] [address] [place] [address], [place] [address] 05 Dec, 2014 [facility] [address] [id number] [address] [place] [address], [place] [address] 05 Dec, 2014 [facility] [address] [id number] [address] [place] [address], [place] [address] Dec, [facility] [address] [id number] [address] [place] [address], [place] [address] Dec, [facility] [address] [id number] [address] [place] [address], [place] [address] 16 Nov, 2014 [facility] [address] [id number] [address] [place] [address], [place] [address] Nov, 2014 [facility] [address] [id number] [address] [place] [address], [place] [address] Nov, [facility] [address] [id number] [address] [place] [address], [place] [address] Nov, 2014 [facility] [address] [id number] [address] [place] [address], [place] [address] Oct, [facility] [address] [id number] [address] [place] [address], [place] [address] Oct, [facility] [address] [id number] [address] [place] [address], [place] [address] Oct, [facility] [address] [id number] [address] [place] [address], [place] [address] Oct, [facility] [address] [id number] [address] [place] [address], [place] [address] Oct, [facility] [address] [id number] [address] [place] [address], [place] [address] Oct, [facility] [address] [id number] [address] [place] [address], [place] [address] Oct, [facility] [address] [id number] [address] [place] [address], [place] [address] Oct, [facility] [address] [id number] [address] [place] [address], [place] [address] Sep, [facility] [address] [id number] [address] [place] [address], [place] [address] Sep, [facility] [address] [id number] [address] [place] [address], [place] [address] Sep, [facility] [address] [id number] [address] [place] [address], [place] [address] Sep, [facility] [address] [id number] [address] [place] [address], [place] [address] Sep, [facility] [address] [id number] [address] [place] [address], [place] [address] Sep, [facility] [address] [id number] [address] [place] [address], [place] [address] Sep, [facility] [address] [id number] [address] [place] [address], [place] [address] Sep, [facility] [address] [id number] [address] [place] [address], [place] [address] Aug, [facility] [address] [id number] [address] [place] [address], [place] [address] Aug, [facility] [address] [id number] [address] [place] [address], [place] [address] Aug, [facility] [address] [id number] [address] [place] [address], [place] [address] Aug, [facility] [address] [id number] [address] [place] [address], [place] [address] Jul, [facility] [address] [id number] [address] [place] [address], [place] [address] Jul, [facility] [address] [id number] [address] [place] [address], [place] [address] Jul, [facility] [address] [id number] [address] [place] [address], [place] [address] Jul, [facility] [address] [id number] [address] [place] [address], [place] [address] Jul, [facility] [address] [id number] [address] [place] [address], [place] [address] Jul, [facility] [address] [id number] [address] [place] [address], [place] [address] Jul, [facility] [address] [id number] [address] [place] [address], [place] [address] Jul, [facility] [address] [id number] [address] [place] [address], [place] [address] Jul, [facility] [address] [id number] [address] [place] [address], [place] [address] Jul, [facility] [address] [id number] [address] [place] [address], [place] [address] Jul, [facility] [address] [id number] [address] [place] [address], [place] [address] Jul, [facility] [address] [id number] [address] [place] [address], [place] [address] Jul, [facility] [address] [id number] [address] [place] [address], [place] [address] Jul, [facility] [address] [id number] [address] [place] [address], [place] [address] Jul, 2013 [facility] [address] [id number] [address] [place] [address], [place] [address] Jul, 2013 [facility] [address] [id number] [address] [place] [address], [place] [address] Jul, [facility] [address] [id number] [address] [place] [address], [place] [address] Jul, [facility] [address] [id number] [address] [place] [address], [place] [address] Jul, [facility] [address] [id number] [address] [place] [address], [place] [address] Jul, [facility] [address] [id number] [address] [place] [address], [place] [address] Jul, [facility] [address] [id number] [address] [place] [address], [place] [address] Jul, [facility] [address] [id number] [address] [place] [address], [place] [address] 29 Jun, 2013 [facility] [address] [id number] [address] [place] [address], [place] [address] 29 Sep, 2013 [facility] [address] [id number] [address] [place] [address], [place] [address] 17 Sep, 2013 [facility] [address] [id number] [address] [place] [address], [place] [address] 17 Jun, 2013 [facility] [address] [id number] [address] [place] [address], [place] [address] 05 Sep, 2013 [facility] [address] [id number] [address] [place] [address], [place] [address] Jun, 2013 [facility] [address] [id number] [facility] [place] [address] Jun, 2013 [facility] [address] [id number] [address] [place] [address], [place] [address] Jun, [facility] [address] [id number] [address] [place] [address], [place] [address] Jun, 2013 [facility] [address] [id number] [address] [place] [address], [place] [address] Jun, [facility] [address] [id number] [address] [place] [address], [place] [address] May, [facility] [address] [id number] [address] [place] [address], [place] [address] May, [facility] [address] [id number] [address] [place] [address], [place] [address] May, [facility] [address] [id number] [address] [place] [address], [place] [address] May, [facility] [address] [id number] [address] [place] [address], [place] [address] May, [facility] [address] [id number] [address] [place] [address], [place] [address] May, [facility] [address] [id number] [address] [place] [address], [place] [address] May, [facility] [address] [id number] [address] [place] [address], [place] [address] May, [facility] [address] [id number] [address] [place] [address], [place] [address] Apr, [facility] [address] [id number] [address] [place] [address], [place] [address] Apr, [facility] [address] [id number] [address] [place] [address], [place] [address] Apr, [facility] [address] [id number] [facility] [place] [address] Apr, [facility] [address] [id number] [address] [place] [address], [place] [address] Apr, [facility] [address] [id number] [address] [place] [address], [place] [address] Apr, [facility] [address] [id number] [address] [place] [address], [place] [address] Mar, [facility] [address] [id number] [address] [place] [address], [place] [address] Mar, [facility] [address] [id number] [address] [place] [address], [place] [address] Mar, [facility] [address] [id number] [address] [place] [address], [place] [address] Mar, [facility] [address] [id number] [address] [place] [address], [place] [address] Mar, [facility] [address] [id number] [address] [place] [address], [place] [address] Mar, [facility] [address] [id number] [address] [place] [address], [place] [address] Mar, [facility] [address] [id number] [address] [place] [address], [place] [address] Mar, [facility] [address] [id number] [address] [place] [address], [place] [address] February, [facility] [address] [id number] [address] [place] [address], [place] [address] February, [facility] [address] [id number] [address] [place] [address], [place] [address] February, [facility] [address] [id number] [address] [place] [address], [place] [address] February, [facility] [address] [id number] [address] [place] [address], [place] [address] February, [facility] [address] [id number] [address] [place] [address], [place] [address] Jan, [facility] [address] [id number] [address] [place] [address], [place] [address] Jan, [facility] [address] [id number] [address] [place] [address], [place] [address] Nov, [facility] [address] [id number] [address] [place] [address], [place] [address] Nov, [facility] [address] [id number] [address] [place] [address], [place] [address] Nov, [facility] [address] [id number] [address] [place] [address], [place] [address] Nov, [facility] [address] [id number] [address] [place] [address], [place] [address] Nov, [facility] [address] [id number] [address] [place] [address], [place] [address] Nov, [facility] [address] [id number] [address] [place] [address], [place] [address] Oct, [facility] [address] [id number] [address] [place] [address], [place] [address] Oct, [facility] [address] [id number] [address] [place] [address], [place] [address] Oct, [facility] [address] [id number] [address] [place] [address], [place] [address] Sep, [facility] [address] [id number] [address] [place] [address], [place] [address] Sep, [facility] [address] [id number] [address] [place] [address], [place] [address] Aug, [facility] [address] [id number] [address] [place] [address], [place] [address] Aug, [facility] [address] [id number] [address] [place] [address], [place] [address] Aug, [facility] [address] [id number] [address] [place] [address], [place] [address] Aug, [facility] [address] [id number] [address] [place] [address], [place] [address] Jul, [facility] [address] [id number] [address] [place] [address], [place] [address] Jul, [facility] [address] [id number] [address] [place] [address], [place] [address] Jul, [facility] [address] [id number] [address] [place] [address], [place] [address] Jul, [facility] [address] [id number] [address] [place] [address], [place] [address] Jul, [facility] [address] [id number] [address] [place] [address], [place] [address] Jun, [facility] [address] [id number] [address] [place] [address], [place] [address] Jun, [facility] [address] [id number] [address] [place] [address], [place] [address] May, [facility] [address] [id number] [address] [place] [address], [place] [address] May, [facility] [address] [id number] [address] [place] [address], [place] [address] May, [facility] [address] [id number] [address] [place] [address], [place] [address] May, [facility] [address] [id number] [address] [place] [address], [place] [address] May, [facility] [address] [id number] [address] [place] [address], [place] [address] May, [facility] [address] [id number] [address] [place] [address], [place] [address] Apr, [facility] [address] [id number] [address] [place] [address], [place] [address] Apr, [facility] [address] [id number] [address] [place] [address], [place] [address] Apr, [facility] [address] [id number] [address] [place] [address], [place] [address] Apr, [facility] [address] [id number] [address] [place] [address], [place] [address] Apr, [facility] [address] [id number] [address] [place] [address], [place] [address] Mar, [facility] [address] [id number] [address] [place] [address], [place] [address] Mar, [facility] [address] [id number] [address] [place] [address], [place] [address] Mar, [facility] [address] [id number] [address] [place] [address], [place] [address] February, [facility] [address] [id number] [address] [place] [address], [place] [address] February, [facility] [address] [id number] [address] [place] [address], [place] [address] February, [facility] [address] [id number] [address] [place] [address], [place] [address] Dec, [facility] [address] [id number] [address] [place] [address], [place] [id number] Dec, [facility] [address] [id number] [address] [place] [address], [place] [id number] Dec, [facility] [address] [id number] [address] [place] [address], [place] [id number] Oct, [facility] [address] [id number] [address] [place] [address], [place] [id number] Oct, [facility] [address] [id number] [address] [place] [address], [place] [id number] Sep, [facility] [address] [id number] [address] [place] [address], [place] [id number] Sep, [facility] [address] [id number] [address] [place] [address], [place] [id number] Aug, [facility] [address] [id number] [address] [place] [address], [place] [id number] Aug, [facility] [address] [id number] [address] [place] [id number] Aug, [facility] [address] [id number] [address] [place] [address], [place] [id number] Aug, [facility] [address] [id number] [address] [place] [address], [place] [id number] Aug, [facility] [address] [id number] [address] [place] [address], [place] [id number] Aug, [facility] [address] [id number] [address] [place] [address], [place] [id number] Jul, [facility] [address] [id number] [address] [place] [address], [place] [id number] Jul, [facility] [address] [id number] [address] [place] [id number] Jul, [facility] [address] [id number] [address] [place] [id number] Jul, [facility] [address] [id number] [address] [place] [id number] Jul, [facility] [address] [id number] [address] [place] [address], [place] [id number] Jul, [facility] [address] [id number] [address] [place] [address], [place] [id number] Jun, [facility] [address] [id number] [address] [place] [address], [place] [id number] Jun, [facility] [address] [id number] [address] [address] 15 Jun, 2012 [facility] [place] [address] [facility] [id number] [address] [place] [id number] 15 Jun, 2012 IMMUNIZATIONS No Known Immunizations SOCIAL HISTORY Never Assessed REASON FOR VISIT PLAN OF CARE VITAL SIGNS MEDICATIONS Unknown Medications RESULTS No Results PROCEDURES Procedure Date Ordered Result Body Site CHEST X-RAY Jun 06, 2013 INSTRUCTIONS MEDICATIONS ADMINISTERED No Known Medications MEDICAL [...] legs 02/2019 Hospitalization History surgeries Hospitalization [facility]- Viral infection Aug 26 Hospitalization History [facility] [place]- Flu Sx 12/10/2016 Hospitalization History [facility] [place]- Congestion, runny n ose and abd pain 12/21/2017
--- OUTSIDE RECORDS SUMMARY | 2020-05-11 18:38 | XMS REPORT ---
Author Author Suman CARDOZA Organization [facility] Address [address] [place] [address] Care Team Providers Care Drafter Directional Survey Name Role Phone RENETTA CARDOZA Unavailable PROBLEMS Type Condition ICD9-CM Code AHP43-KV Code Onset Dates Condition S tatus SNOMED Code Problem Coronary artery disease invo lving platinum heart, angina presence unspecified, unspecified vessel or lesion type I25.10 Active 34306204 Problem LAURY (obstructive sleep apnea) G47.33 Active 20730531 Problem Chronic obstructive pulmonary disease, unspecified COPD ty pe J44.9 Active 66621784 Problem Seizure disorder G40.909 Active 128 423622 Problem Erectile dysfunction, unspecified erectile dysfunction typ e N52.9 Active 908001616 Problem Other chronic pain G89.29 Active 8 8074093 Problem Tobacco abuse Z72.0 Active 049232 05 Problem Non morbid obesity E66.9 Active 4 43387288 Problem Non morbid obesity due to excess calories E66.09 Active 915599120 Problem Other obesity due to excess calories E66.09 Active 343760872 Problem Panlobular emphysema J43.1 Active 3764024 Problem COPD exacerbation J44.1 Active 19 5949040 Problem COPD with acute exacerbation J44.1 A ctive 531699293 Problem 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 Active [id number] Problem Chronic major depressive disorder, recurrent episode F33.9 Active 87288603 Problem RLS (restless legs syndrome) G25.81 A ctive 12552675 Problem Recurrent major depressive disorder, remission s tatus unspecified F33.9 Active 49159278 Problem Morbid obesity due to excess calories E66.01 Active 073350768 Problem Flexural eczema L20.82 Active 5709 2006 Problem Hypertension, benign I10 Active 43713702 Problem Palpitations R00.2 Active 5188864 2 Problem Restless leg syndrome G25.81 Active 21548167 Problem Primary insomnia F51.01 Active 397 2004 Problem Atherosclerotic heart diseas e of platinum coronary artery with other forms of angina pectoris I25.118 Active 961843206 Problem Type 2 diabetes mellitus wit hout complication, unspecified whether moth exterminator insulin use E11.9 Active 764338442 ALLERGIES No Information ENCOUNTERS Encounter Location Date Diagnosis [facility] [address] [facility] [id number] [address] [place] [address] 29 Mar, 2020 Chronic obstructive pulmonar y disease, unspecified COPD type J44.9 ; Flexural eczema L20.82 ; Type 2 diabetes mellitus without complication, unspecified whether residential insulin use E11.9 and Recurrent major depressive disorder, remission status unspecified F33.9 [facility] [address] [facility] [id number] [address] [place] [address] 26 Mar, 2020 COPD exacerbation J44.1 [place] [address] [facility] [id number] [address] [place] [address] February, [facility] [address] [facility] [id number] [address] [place] [address] February, [facility] [address] [facility] [id number] [address] [place] [address] February, Chronic obstructive pulmonar y disease, unspecified COPD type J44.9 ; Tobacco abuse Z72.0 ; Tobacco abuse counseling Z71.6 and Primary insomnia F51.01 [place] [address] [facility] [id number] [address] [place] [address] February, [facility] [address] [facility] [id number] [address] [place] [address] February, Chronic obstructive pulmonar y disease, unspecified COPD type J44.9 and Coronary artery disease involving platinum heart, angina presence unspecified, unspecified vessel or lesion type I25.10 [facility] [address] [facility] [id number] [address] [place] [address] February, [facility] [address] [facility] [id number] [address] [place] [address] February, Right leg swelling M79.89 [facility] [address] [id number] [address] [place] [address] Jan, Dependent edema R60.9 [facility] [address] [id number] [address] [place] [address] Jan, Dependent edema R60.9 [facility] [address] [id number] [address] [place] [address] Jan, Hyperglycemia R73.9 and Loca lized edema R60.0 [facility] [address] [id number] [address] [place] [address] Jan, [facility] [address] [id number] [address] [place] [address] Jan, Counseled by nurse Leroy71.9 [facility] [address] [id number] [address] [place] [address] Jan, Hyperglycemia R73.9 and Loca lized edema R60.0 [facility] [address] [id number] [address] [place] [address] Jan, [facility] [address] [id number] [address] [place] [address] Jan, [facility] [address] [id number] [address] [place] [address] Jan, Hyperglycemia R73.9 [facility] [address] [id number] [address] [place] [address] Jan, Hyperglycemia R73.9 [facility] [address] [id number] [address] [place] [address] Jan, Coronary artery disease invo lving platinum heart, angina presence unspecified, unspecified vessel or lesion type I25.10 and Localized edema R60.0 [facility] [address] [id number] [address] [place] [address] Jan, [facility] [address] [id number] [address] [place] [address] 15 Jan, 2020 Coronary artery disease invo lving platinum heart, angina presence unspecified, unspecified vessel or lesion type I25.10 and Localized edema R60.0 [facility] [address] [place] [id number] [address] [place] [address] 14 Jan, 2020 Bilateral edema of lower ext remity R60.0 and SOB (shortness of breath) R06.02 [place] [address] [address] 05 Dec, 2019 Chronic obstructive pulmonar y disease, unspecified COPD type J44.9 ; Non morbid obesity due to excess calories E66.09 ; Seizure disorder G40.909 ; Atherosclerotic heart disease of platinum coronary artery with other forms of angina pectoris I25.118 ; Other chronic pain G89.29 ; Pain in right knee M25.561 and RLS (restless legs syndrome) G25.81 [facility] [address] [place] [id number] [address] [place] [address] 20 Nov, 2019 COPD exacerbation J44.1 and Cough R05 [place] [address] [place] [id number] [address] [place] [address] 20 Nov, 2019 [place] [address] [place] [id number] [address] [place] [address] 06 Nov, 2019 Chronic obstructive pulmonar y disease, unspecified COPD type J44.9 [place] [address] [place] [id number] [address] [place] [address] 03 Nov, 2019 [facility] [address] [place] [id number] [address] [place] [address] 30 Oct, 2019 COPD exacerbation J44.1 and Tobacco abuse Z72.0 [place] [address] [place] [id number] [address] [place] [address] 14 Oct, 2019 [place] [address] [place] [id number] [address] [place] [address] 14 Oct, 2019 Right knee pain, unspecified chronicity M25.561 [place] [id number] [place] [address] Sep, Restless leg syndrome G25.81 and Primary insomnia F51.01 [facility] [address] [address] Sep, Chronic obstructive pulmonar y disease, unspecified COPD type J44.9 and COPD exacerbation J44.1 [place] [address] [address] Sep, RLS (restless legs syndrome) G25.81 [place] [address] [address] Aug, Other chronic pain G89.29 ; Pain in right knee M25.561 ; Seizures R56.9 ; Coronary artery disease of platinum artery of platinum heart with stable angina pectoris I25.118 and Chronic major depressive disorder, recurrent episode F33.9 [facility] [address] [address] Jul, Right knee pain, unspecified chronicity M25.561 [place] [address] [address] Jul, [place] [address] [address] Jul, Foot pain, right M79.671 ; M orbid obesity due to excess calories E66.01 ; Seizures R56.9 and Encounter for immunization Z23 [place] [address] [address] Jun, [place] [address] [address] Jun, Non morbid obesity due to ex cess calories E66.09 and Foot callus L84 [place] [address] [address] May, [facility] [address] [place] [address] May, Flank pain R10.9 [facility] [address] [facility] [id number] [address] [place] [address] May, Focal seizures R56.9 [facility] [address] [facility] [id number] [address] [place] [address] May, COPD exacerbation J44.1 and Non morbid obesity E66.9 [facility] [address] [id number] [address] [place] [address] May, Seizure disorder G40.909 [facility] [address] [facility] [id number] [address] [place] [address] May, [facility] [address] [facility] [id number] [address] [place] [address] May, [facility] [address] [facility] [id number] [address] [place] [address] May, Abscess of left foot L02.612 [facility] [address] [facility] [id number] [address] [place] [address] Apr, Cellulitis of left lower ext remity L03.116 [facility] [address] [facility] [id number] [address] [place] [address] Apr, [facility] [address] [facility] [id number] [address] [place] [address] Apr, [facility] [address] [facility] [id number] [address] [place] [address] Apr, Cellulitis of left foot L03. 116 [facility] [address] [facility] [id number] [address] [place] [address] Apr, Chronic obstructive pulmonar y disease, unspecified COPD type J44.9 and Seizures R56.9 [facility] [address] [facility] [id number] [address] [place] [address] Mar, [facility] [address] [facility] [id number] [address] [place] [address] Mar, [facility] [address] [facility] [id number] [address] [place] [address] Mar, [facility] [address] [facility] [id number] [address] [place] [address] February, [facility] [address] [facility] [id number] [address] [place] [address] February, [facility] [address] [facility] [id number] [address] [place] [address] Jan, [facility] [address] [facility] [id number] [place] [address] Aug, Wheezes R06.2 and Pneumonia J18.9 [place] [address] [place] [id number] [place] [address] Aug, Erectile dysfunction, unspec ified erectile dysfunction type N52.9 [facility] [address] [place] [id number] [place] [address] Aug, Non morbid obesity E66.9 [facility] [address] [place] [id number] [place] [address] Jul, [facility] [address] [facility] [id number] [address] [place] [address] Jul, Testicular swelling, right N 50.89 [facility] [address] [place] [id number] [place] [address] Jul, Callus L84 [facility] [address] [place] [id number] [address] [place] [address] Jun, Non morbid obesity E66.9 ; C OPD exacerbation J44.1 ; 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 and Dermatofibroma D23.9 [facility] [address] [facility] [id number] [address] [place] [address] May, Non morbid obesity E66.9 and Grade II hemorrhoids K64.1 [place] [address] [place] [id number] [address] [place] [address] Mar, [place] [address] [address] Mar, Cough 786.2 ; Medicare annua l wellness visit, initial Z00.00 ; Morbid obesity due to excess calories E66.01 ; Chronic obstructive pulmonary disease, unspecified COPD type J44.9 ; Coronary artery disease involving platinum heart, angina presence unspecified, unspecified vessel or lesion type I25.10 ; Hypertension, benign I10 and LAURY (obstructive sleep apnea) G47.[address] [address] 31 Feb, 2018 Medicare annual wellness vis it, initial Z00.00 ; Morbid obesity due to excess calories E66.01 ; Chronic obstructive pulmonary disease, unspecified COPD type J44.9 ; Coronary artery disease involving platinum heart, angina presence unspecified, unspecified vessel or lesion type I25.10 ; Hypertension, benign I10 ; LAURY (obstructive sleep apnea) G47.33 ; Family history of colon cancer Z80.0 ; Other chronic pain G89.29 and Pain in right hip M25.551 [place] [address] [address] Jan, [place] [address] [address] Nov, Panlobular emphysema J43.1 [place] [address] [place] [id number] [address] [place] [address] Nov, COPD exacerbation J44.1 [place] [address] [address] Nov, Viral URI J06.9 [place] [address] [place] [id number] [place] [address] Nov, [place] [address] [address] Nov, [facility] [address] [facility] [id number] [address] [place] [address] Sep, Other obesity due to excess calories E66.09 and Body mass index (BMI) of 36.0-36.9 in adult Z68.36 [facility] [address] [facility] [id number] [address] [place] [address] Aug, [facility] [address] [facility] [id number] [address] [place] [address] Aug, [facility] [address] [facility] [id number] [address] [place] [address] Aug, Coronary artery disease invo lving platinum heart, angina presence unspecified, unspecified vessel or lesion type I25.10 and Chronic obstructive pulmonary disease, unspecified COPD type J44.9 [facility] [address] [facility] [id number] [address] [place] [address] Jul, COPD with acute exacerbation J44.1 [facility] [address] [facility] [id number] [address] [place] [address] Jul, Non morbid obesity E66.9 [place] [address] [facility] [id number] [address] [place] [address] Jun, Panlobular emphysema J43.1 ; Tobacco abuse Z72.0 ; Tobacco abuse counseling Z71.6 and Non morbid obesity E66.9 [facility] [address] [facility] [id number] [address] [place] [address] Apr, [facility] [address] [facility] [id number] [address] [place] [address] Apr, [place] [address] [place] [id number] [address] [place] [address] Mar, COPD exacerbation J44.1 [place] [address] [facility] [id number] [address] [place] [address] Mar, Tear of medial meniscus of r ight knee, current, unspecified tear type, initial encounter S83.241A [facility] [address] [id number] [address] [place] [address] Mar, Pain in right knee M25.561 [facility] [address] [id number] [address] [place] [address] February, Pain in right knee M25.561 [facility] [address] [facility] [id number] [address] [place] [address] February, Pain in right knee M25.561 [facility] [address] [id number] [address] [place] [address] Dec, [place] [address] [facility] [id number] [address] [place] [address] Nov, [facility] [address] [facility] [id number] [address] [place] [address] Nov, Bronchitis J40 and Wheezing R06.2 [place] [address] [facility] [id number] [address] [place] [address] Oct, [facility] [address] [facility] [id number] [address] [place] [address] Oct, [place] [address] [facility] [id number] [address] [place] [address] Oct, Non morbid obesity due to ex cess calories E66.09 ; Other chronic pain G89.29 and Pain in right knee M25.561 [facility] [address] [facility] [id number] [address] [place] [address] Oct, Non morbid obesity due to ex cess calories E66.09 ; Other chronic pain G89.29 and Pain in right knee M25.561 [facility] [address] [facility] [id number] [address] [place] [address] Oct, Pain in right knee M25.561 a nd Other chronic pain G89.29 [place] [address] [facility] [id number] [address] [place] [address] Aug, Encounter for immunization Z 23 [facility] [address] [facility] [id number] [address] [place] [address] 09 Aug, 2016 [facility] [address] [place] [id number] [place] [address] 09 Aug, 2016 [facility] [address] [facility] [id number] [address] [place] [address] 02 Jun, 2016 Common wart B07.8 [facility] [address] [facility] [id number] [address] [place] [address] May, Cellulitis of left elbow L03 .114 [place] [address] [place] [id number] [place] [address] Mar, Torticollis, acute M43.6 and Leg pain, left M79.605 [place] [address] [place] [id number] [place] [address] February, Leg pain, left M79.605 [facility] [address] [place] [id number] [address] [place] [address] Dec, COPD exacerbation J44.1 [place] [address] [address] Dec, [facility] [address] [place] [id number] [place] [address] Oct, Chronic obstructive pulmonar y disease, unspecified COPD type J44.9 and Hyperglycemia R73.9 [facility] [address] [place] [id number] [address] [place] [address] Sep, Tobacco abuse Z72.0 ; Figueroa ry artery disease involving platinum heart, angina presence unspecified, unspecified vessel or lesion type I25.10 and Morbid obesity due to excess calories E66.01 [facility] [address] [place] [id number] [address] [place] [address] 14 Sep, 2015 [facility] [address] [address] Sep, Leg pain, left M79.605 [facility] [address] [place] [id number] [address] [place] [address] Sep, [facility] [address] [place] [id number] [place] [address] Sep, [facility] [address] [address] Aug, Essential (primary) hyperten autumn I10 [facility] [address] [address] Aug, Encounter for immunization Z 23 [facility] [address] [address] Aug, [facility] [address] [address] May, Chronic airway obstruction, not elsewhere classified 496 [facility] [address] [address] May, [facility] [address] [address] May, [facility] [address] [address] May, Acute bronchitis 466.0 [facility] [address] [address] May, [facility] [address] [address] May, Hyperglycemia 790.29 [facility] [address] [address] Apr, [facility] [address] [address] Apr, Cough 786.2 ; Hyperglycemia 790.29 and COPD (chronic obstructive pulmonary disease) 496 [facility] [address] [address] 30 Mar, 2015 Cough 786.2 ; Elevated gluco se 790.29 ; Wheezing 786.07 ; COPD exacerbation 491.21 and Nicotine dependence 305.1 [facility] [address] [id number] [address] [place] [address] 16 Mar, 2015 High risk medication use V58 .69 [facility] [address] [facility] [id number] [address] [place] [address] Mar, High risk medication use V58 .69 and Benign hypertension 401.1 [facility] [address] [id number] [address] [place] [address] Mar, [facility] [address] [id number] [address] [place] [address] February, [facility] [address] [facility] [id number] [address] [place] [address] February, [facility] [address] [id number] [address] [place] [address] Jan, [facility] [address] [id number] [address] [place] [address] 30 Jan, 2015 Benign hypertension 401.1 [facility] [address] [facility] [id number] [address] [place] [address] 14 Jan, 2015 [facility] [address] [id number] [address] [place] [address] Jan, [facility] [address] [facility] [id number] [address] [place] [address] Dec, [facility] [address] [id number] [address] [place] [address] Dec, [facility] [address] [facility] [id number] [address] [place] [address] Dec, [facility] [address] [facility] [id number] [address] [place] [id number] 18 Dec, 2014 [facility] [address] [id number] [address] [place] [address], [place] [id number] 18 Dec, 2014 [facility] [address] [id number] [address] [place] [address], [place] [id number] 2014 [facility] [address] [id number] [address] [place] [address], [place] [id number] 2014 [facility] [address] [id number] [address] [place] [address], [place] [id number] 13 Dec, 2014 [facility] [address] [id number] [address] [place] [address], [place] [id number] 13 Dec, 2014 [facility] [address] [id number] [address] [place] [address], [place] [id number] 06 Dec, 2014 [facility] [address] [id number] [address] [place] [address], [place] [id number] 06 Dec, 2014 [facility] [address] [id number] [address] [place] [address], [place] [id number] 05 Dec, 2014 [facility] [address] [id number] [address] [place] [address], [place] [id number] 05 Dec, 2014 [facility] [address] [id number] [address] [place] [address], [place] [id number] Dec, [facility] [address] [id number] [address] [place] [address], [place] [id number] Dec, [facility] [address] [id number] [address] [place] [address], [place] [address] 16 Nov, 2014 [facility] [address] [id number] [address] [place] [address], [place] [address] Nov, 2014 [facility] [address] [id number] [address] [place] [address], [place] [address] Nov, [facility] [address] [id number] [address] [place] [address], [place] [address] Nov, 2014 [facility] [address] [id number] [address] [place] [address], [place] [address] Oct, [facility] [address] [id number] [address] [place] [address], [place] [address] Oct, [facility] [address] [id number] [address] [place] [address], [place] [address] Oct, [facility] [address] [id number] [address] [place] [address], [place] [address] Oct, [facility] [address] [id number] [address] [place] [address], [place] [address] Oct, [facility] [address] [id number] [address] [place] [address], [place] [address] Oct, [facility] [address] [id number] [address] [place] [address], [place] [address] Oct, [facility] [address] [id number] [address] [place] [address], [place] [address] Oct, [facility] [address] [id number] [address] [place] [address], [place] [address] Sep, [facility] [address] [id number] [address] [place] [address], [place] [address] Sep, [facility] [address] [id number] [address] [place] [address], [place] [address] Sep, [facility] [address] [id number] [address] [place] [address], [place] [address] Sep, [facility] [address] [id number] [address] [place] [address], [place] [address] Sep, [facility] [address] [id number] [address] [place] [address], [place] [address] Sep, [facility] [address] [id number] [address] [place] [address], [place] [address] Sep, [facility] [address] [id number] [address] [place] [address], [place] [address] Sep, [facility] [address] [id number] [address] [place] [address], [place] [address] Aug, [facility] [address] [id number] [address] [place] [address], [place] [address] Aug, [facility] [address] [id number] [address] [place] [address], [place] [address] Aug, [facility] [address] [id number] [address] [place] [address], [place] [address] Aug, [facility] [address] [id number] [address] [place] [address], [place] [address] Jul, [facility] [address] [id number] [address] [place] [address], [place] [address] Jul, [facility] [address] [id number] [address] [place] [address], [place] [address] Jul, [facility] [address] [id number] [address] [place] [address], [place] [address] Jul, [facility] [address] [id number] [address] [place] [address], [place] [address] Jul, [facility] [address] [id number] [address] [place] [address], [place] [address] Jul, [facility] [address] [id number] [address] [place] [address], [place] [address] Jul, [facility] [address] [id number] [address] [place] [address], [place] [address] Jul, [facility] [address] [id number] [address] [place] [address], [place] [address] Jul, [facility] [address] [id number] [address] [place] [address], [place] [address] Jul, [facility] [address] [id number] [address] [place] [address], [place] [address] Jul, [facility] [address] [id number] [address] [place] [address], [place] [address] Jul, [facility] [address] [id number] [address] [place] [address], [place] [address] Jul, [facility] [address] [id number] [address] [place] [address], [place] [address] Jul, [facility] [address] [id number] [address] [place] [address], [place] [address] Jul, 2013 [facility] [address] [id number] [address] [place] [address], [place] [address] Jul, 2013 [facility] [address] [id number] [address] [place] [address], [place] [address] Jul, [facility] [address] [id number] [address] [place] [address], [place] [address] Jul, [facility] [address] [id number] [address] [place] [address], [place] [address] Jul, [facility] [address] [id number] [address] [place] [address], [place] [address] Jul, [facility] [address] [id number] [address] [place] [address], [place] [address] Jul, [facility] [address] [id number] [address] [place] [address], [place] [address] Jul, [facility] [address] [id number] [address] [place] [address], [place] [address] 29 Jun, 2013 [facility] [address] [id number] [address] [place] [address], [place] [address] 29 Sep, 2013 [facility] [address] [id number] [address] [place] [address], [place] [address] 17 Sep, 2013 [facility] [address] [id number] [address] [place] [address], [place] [address] 17 Jun, 2013 [facility] [address] [id number] [address] [place] [address], [place] [address] 05 Sep, 2013 [facility] [address] [id number] [address] [place] [address], [place] [address] Jun, 2013 [facility] [address] [id number] [facility] [place] [address] Jun, 2013 [facility] [address] [id number] [address] [place] [address], [place] [address] Jun, [facility] [address] [id number] [address] [place] [address], [place] [address] Jun, 2013 [facility] [address] [id number] [address] [place] [address], [place] [address] Jun, [facility] [address] [id number] [address] [place] [address], [place] [address] May, [facility] [address] [id number] [address] [place] [address], [place] [address] May, [facility] [address] [id number] [address] [place] [address], [place] [address] May, [facility] [address] [id number] [address] [place] [address], [place] [address] May, [facility] [address] [id number] [address] [place] [address], [place] [address] May, [facility] [address] [id number] [address] [place] [address], [place] [address] May, [facility] [address] [id number] [address] [place] [address], [place] [address] May, [facility] [address] [id number] [address] [place] [address], [place] [address] May, [facility] [address] [id number] [address] [place] [address], [place] [address] Apr, [facility] [address] [id number] [address] [place] [address], [place] [address] Apr, [facility] [address] [id number] [address] [place] [address], [place] [address] Apr, [facility] [address] [id number] [facility] [place] [address] Apr, [facility] [address] [id number] [address] [place] [address], [place] [address] Apr, [facility] [address] [id number] [address] [place] [address], [place] [address] Apr, [facility] [address] [id number] [address] [place] [address], [place] [address] Mar, [facility] [address] [id number] [address] [place] [address], [place] [address] Mar, [facility] [address] [id number] [address] [place] [address], [place] [address] Mar, [facility] [address] [id number] [address] [place] [address], [place] [address] Mar, [facility] [address] [id number] [address] [place] [address], [place] [address] Mar, [facility] [address] [id number] [address] [place] [address], [place] [address] Mar, [facility] [address] [id number] [address] [place] [address], [place] [address] Mar, [facility] [address] [id number] [address] [place] [address], [place] [address] Mar, [facility] [address] [id number] [address] [place] [address], [place] [address] February, [facility] [address] [id number] [address] [place] [address], [place] [address] February, [facility] [address] [id number] [address] [place] [address], [place] [address] February, [facility] [address] [id number] [address] [place] [address], [place] [address] February, [facility] [address] [id number] [address] [place] [address], [place] [address] February, [facility] [address] [id number] [address] [place] [address], [place] [address] Jan, [facility] [address] [id number] [address] [place] [address], [place] [address] Jan, [facility] [address] [id number] [address] [place] [address], [place] [address] Nov, [facility] [address] [id number] [address] [place] [address], [place] [address] Nov, [facility] [address] [id number] [address] [place] [address], [place] [address] Nov, [facility] [address] [id number] [address] [place] [address], [place] [address] Nov, [facility] [address] [id number] [address] [place] [address], [place] [address] Nov, [facility] [address] [id number] [address] [place] [address], [place] [address] Nov, [facility] [address] [id number] [address] [place] [address], [place] [address] Oct, [facility] [address] [id number] [address] [place] [address], [place] [address] Oct, [facility] [address] [id number] [address] [place] [address], [place] [address] Oct, [facility] [address] [id number] [address] [place] [address], [place] [address] Sep, [facility] [address] [id number] [address] [place] [address], [place] [address] Sep, [facility] [address] [id number] [address] [place] [address], [place] [address] Aug, [facility] [address] [id number] [address] [place] [address], [place] [address] Aug, [facility] [address] [id number] [address] [place] [address], [place] [address] Aug, [facility] [address] [id number] [address] [place] [address], [place] [address] Aug, [facility] [address] [id number] [address] [place] [address], [place] [address] Jul, [facility] [address] [id number] [address] [place] [address], [place] [address] Jul, [facility] [address] [id number] [address] [place] [address], [place] [address] Jul, [facility] [address] [id number] [address] [place] [address], [place] [address] Jul, [facility] [address] [id number] [address] [place] [address], [place] [address] Jul, [facility] [address] [id number] [address] [place] [address], [place] [address] Jun, [facility] [address] [id number] [address] [place] [address], [place] [address] Jun, [facility] [address] [id number] [address] [place] [address], [place] [address] May, [facility] [address] [id number] [address] [place] [address], [place] [address] May, [facility] [address] [id number] [address] [place] [address], [place] [address] May, [facility] [address] [id number] [address] [place] [address], [place] [address] May, [facility] [address] [id number] [address] [place] [address], [place] [address] May, [facility] [address] [id number] [address] [place] [address], [place] [address] May, [facility] [address] [id number] [address] [place] [address], [place] [address] Apr, [facility] [address] [id number] [address] [place] [address], [place] [address] Apr, [facility] [address] [id number] [address] [place] [address], [place] [address] Apr, [facility] [address] [id number] [address] [place] [address], [place] [address] Apr, [facility] [address] [id number] [address] [place] [address], [place] [address] Apr, [facility] [address] [id number] [address] [place] [address], [place] [address] Mar, [facility] [address] [id number] [address] [place] [address], [place] [address] Mar, [facility] [address] [id number] [address] [place] [address], [place] [address] Mar, [facility] [address] [id number] [address] [place] [address], [place] [address] February, [facility] [address] [id number] [address] [place] [address], [place] [address] February, [facility] [address] [id number] [address] [place] [address], [place] [address] February, [facility] [address] [id number] [address] [place] [address], [place] [address] Dec, [facility] [address] [id number] [address] [place] [address], [place] [address] Dec, [facility] [address] [id number] [address] [place] [address], [place] [address] Dec, [facility] [address] [id number] [address] [place] [address], [place] [address] Oct, [facility] [address] [id number] [address] [place] [address], [place] [address] Oct, [facility] [address] [id number] [address] [place] [address], [place] [address] Sep, [facility] [address] [id number] [address] [place] [address], [place] [address] Sep, [facility] [address] [id number] [address] [place] [address], [place] [address] Aug, [facility] [address] [id number] [address] [place] [address], [place] [address] Aug, [facility] [address] [id number] [address] [place] [address] Aug, [facility] [address] [id number] [address] [place] [address], [place] [address] Aug, [facility] [address] [id number] [address] [place] [address], [place] [address] Aug, [facility] [address] [id number] [address] [place] [address], [place] [address] Aug, [facility] [address] [id number] [address] [place] [address], [place] [address] Jul, [facility] [address] [id number] [address] [place] [address], [place] [address] Jul, [facility] [address] [id number] [address] [place] [address] Jul, [facility] [address] [id number] [address] [place] [address] Jul, [facility] [address] [id number] [address] [place] [address] Jul, [facility] [address] [id number] [address] [place] [address], [place] [address] Jul, [facility] [address] [id number] [address] [place] [address], [place] [address] Jun, [facility] [address] [id number] [address] [place] [address], [place] [address] Jun, [facility] [address] [id number] [address] [address] 15 Jun, [address] [facility] [address] [facility] [id number] [address] [address] 15 Jun, 2012 IMMUNIZATIONS No Known Immunizations [...] legs 02/2019 Hospitalization History surgeries Hospitalization History [facility]- Viral infection Aug 26 Hospitalization History [facility]- Flu Sx 12/10/2016 Hospitalization History [facility]- Congestion, runny n ose and abd pain 12/21/2017
--- OUTSIDE RECORDS SUMMARY | 2020-05-11 18:38 | XMS REPORT ---
Author Author Suman CARDOZA Organization [facility] Address [address] [place] [address] Care Team Providers Care Dye Range Feeder Name Role Phone RENETTA CARDOZA Unavailable PROBLEMS Type Condition ICD9-CM Code [id number] Code Onset Dates Condition S tatus SNOMED Code Problem Morbid obesity due to excess calories E66.01 Active 675758237 Problem Coronary artery disease invo lving [place] heart, angina presence unspecified, unspecified vessel or lesion type I25.10 Active 38749040 Problem Palpitations R00.2 Active 3472287 2 Problem Tobacco abuse Z72.0 Active 736677 05 Problem Non morbid obesity due to excess calories E66.09 Active 526905804 Problem Other chronic pain G89.29 Active 8 1624642 Problem Panlobular emphysema J43.1 Active 3927848 Problem Non morbid obesity E66.9 Active 4 57568643 Problem COPD exacerbation J44.1 Active 19 7923188 Problem Erectile dysfunction, unspecified erectile dysfunction typ e N52.9 Active 869978473 Problem Seizure disorder G40.909 Active 128 921681 Problem Primary insomnia F51.01 Active 397 2004 Problem COPD with acute exacerbation J44.1 A ctive 761641987 Problem LAURY (obstructive sleep apnea) G47.33 Active 75872384 Problem Atherosclerotic heart diseas e of [place] coronary artery with other forms of angina pectoris I25.118 Active 731804600 Problem Other obesity due to excess calories E66.09 Active 135434663 Problem Chronic obstructive pulmonary disease, unspecified COPD ty pe J44.9 Active 13479572 Problem Hypertension, benign I10 Active 17260951 Problem Chronic major depressive disorder, recurrent episode F33.9 Active 63784909 Problem Coronary artery disease of n ative artery of [place] heart with stable angina pectoris I25.118 Active [id number] 7 Problem RLS (restless legs syndrome) G25.81 A ctive 69586822 Problem Restless leg syndrome G25.81 Active 56097681 ALLERGIES No Information ENCOUNTERS Encounter Location Date Diagnosis [facility] [address] [facility] [id number] [address] [place] [phone] Mar, [facility] [address] [facility] [id number] [address] [place] [phone] Mar, COPD exacerbation J44.1 [facility] [address] [facility] [id number] [address] [place] [phone] February, [facility] [address] [place] [id number] [address] [place] [phone] February, [facility] [address] [facility] [id number] [address] [place] [phone] February, Chronic obstructive pulmonar y disease, unspecified COPD type J44.9 ; Tobacco abuse Z72.0 ; Tobacco abuse counseling Z71.6 and Primary insomnia F51.01 [facility] [address] [place] [id number] [address] [place] [phone] February, [facility] [address] [place] [id number] [address] [place] [address] February, Chronic obstructive pulmonar y disease, unspecified COPD type J44.9 and Coronary artery disease involving [place] heart, angina presence unspecified, unspecified vessel or lesion type I25.10 [facility] [address] [facility] [id number] [address] [place] [phone] February, [facility] [address] [facility] [id number] [address] [place] [address] February, Right leg swelling M79.89 [facility] [address] [facility] [id number] [address] [place] [phone] Jan, Dependent edema R60.9 [facility] [address] [facility] [id number] [address] [place] [phone] Jan, Dependent edema R60.9 [facility] [address] [facility] [id number] [address] [place] [address] Jan, Hyperglycemia R73.9 and Loca lized edema R60.0 [facility] [address] [id number] [address] [place] [phone] Jan, [facility] [address] [id number] [address] [place] [address] Jan, Counseled by nurse Z71.9 [facility] [address] [id number] [address] [place] [phone] Jan, Hyperglycemia R73.9 and Loca lized edema R60.0 [facility] [address] [id number] [address] [place] [phone] Jan, [facility] [address] [id number] [address] [place] [phone] Jan, [facility] [address] [id number] [address] [place] [phone] Jan, Hyperglycemia R73.9 [facility] [address] [id number] [address] [place] [phone] Jan, Hyperglycemia R73.9 [facility] [address] [id number] [address] [place] [id number] 16 Jan, 2020 Coronary artery disease invo lving [place] heart, angina presence unspecified, unspecified vessel or lesion type I25.10 and Localized edema R60.0 [facility] [address] [id number] [address] [place] [phone] Jan, [facility] [address] [id number] [address] [place] [phone] Jan, Coronary artery disease invo lving [place] heart, angina presence unspecified, unspecified vessel or lesion type I25.10 and Localized edema R60.0 [facility] [address] [id number] [address] [place] [phone] 14 Jan, 2020 Bilateral edema of lower ext remity R60.0 and SOB (shortness of breath) R06.02 [facility] [address] [id number] [address] [place] [phone] 05 Dec, 2019 Chronic obstructive pulmonar y disease, unspecified COPD type J44.9 ; Non morbid obesity due to excess calories E66.09 ; Seizure disorder G40.909 ; Atherosclerotic heart disease of [place] coronary artery with other forms of angina pectoris I25.118 ; Other chronic pain G89.29 ; Pain in right knee M25.561 and RLS (restless legs syndrome) G25.81 [facility] [address] [facility] [id number] [address] [place] [phone] Nov, COPD exacerbation J44.1 and Cough R05 [place] [address] [place] [id number] [address] [place] [address] Nov, [place] [address] [place] [id number] [place] [phone] Nov, Chronic obstructive pulmonar y disease, unspecified COPD type J44.9 [place] [address] [place] [id number] [address] [place] [phone] Nov, [facility] WALK IN [facility] [address] [place] [id number] [address] [place] [phone] Oct, COPD exacerbation J44.1 and Tobacco abuse Z72.0 [place] [address] [place] [id number] [address] [place] [phone] Oct, [facility] [address] [place] [id number] [address] [place] [address] Oct, Right knee pain, unspecified chronicity M25.561 [place] [address] [place] [id number] [address] [place] [address] Sep, Restless leg syndrome G25.81 and Primary insomnia F51.01 [facility] WALK IN [facility] [address] [place] [id number] [address] [place] [id number] Sep, Chronic obstructive pulmonar y disease, unspecified COPD type J44.9 and COPD exacerbation J44.1 [place] [address] [address] Sep, RLS (restless legs syndrome) G25.81 [facility] [address] [address] Aug, Other chronic pain G89.29 ; Pain in right knee M25.561 ; Seizures R56.9 ; Coronary artery disease of [place] artery of [place] heart with stable angina pectoris I25.118 and Chronic major depressive disorder, recurrent episode F33.9 [facility] [address] [address] Jul, Right knee pain, unspecified chronicity M25.561 [place] [address] [address] Jul, [place] [address] [address] Jul, Foot pain, right M79.671 ; M orbid obesity due to excess calories E66.01 ; Seizures R56.9 and Encounter for immunization Z23 [facility] [address] [address] Jun, [place] [address] [address] 04 Jun, 2019 Non morbid obesity due to ex cess calories E66.09 and Foot callus L84 [place] [address] [address] May, [facility] [address] [place] [id number] [address] [place] [address] May, Flank pain R10.9 [place] [address] [address] May, Focal seizures R56.9 [facility] [address] [place] [id number] [place] [address] May, COPD exacerbation J44.1 and Non morbid obesity E66.9 [place] [address] [id number] [address] [place] [address] May, Seizure disorder G40.909 [facility] [address] [id number] [address] [place] [address] May, [facility] [address] [id number] [address] [place] [address] May, [facility] [address] [id number] [address] [place] [address] May, Abscess of left foot L02.612 [facility] [address] [id number] [address] [place] [address] Apr, Cellulitis of left lower ext remity L03.116 [facility] [address] [id number] [address] [place] [address] Apr, [facility] [address] [id number] [address] [place] [address] Apr, [facility] [address] [id number] [address] [place] [address] Apr, Cellulitis of left foot L03. 116 [facility] [address] [facility] [id number] [address] [place] [address] Apr, Chronic obstructive pulmonar y disease, unspecified COPD type J44.9 and Seizures R56.9 [facility] [address] [facility] [id number] [address] [place] [address] Mar, [facility] [address] [id number] [address] [place] [phone] Mar, [facility] [address] [facility] [id number] [address] [place] [id number] Mar, [facility] [address] [facility] [id number] [address] [place] [phone] February, [facility] [address] [facility] [id number] [address] [place] [phone] February, [place] [id number] [place] [address] Jan, [facility] [address] [address] Aug, Wheezes R06.2 and Pneumonia J18.9 [place] [address] [address] Aug, Erectile dysfunction, unspec ified erectile dysfunction type N52.9 [place] [address] [address] Aug, Non morbid obesity E66.9 [facility] WALK IN [place] [address] [address] Jul, [facility] WALK IN [place] [address] [address] Jul, Testicular swelling, right N 50.89 [place] [address] [address] Jul, Callus L84 [place] [address] [address] Jun, Non morbid obesity E66.9 ; C OPD exacerbation J44.1 ; 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 and Dermatofibroma D23.9 [place] [address] [address] May, Non morbid obesity E66.9 and Grade II hemorrhoids K64.1 [place] [address] [place] [id number] [address] [place] [address] Mar, [place] [address] [address] Mar, Cough 786.2 ; Medicare clifua l wellness visit, initial Z00.00 ; Morbid obesity due to excess calories E66.01 ; Chronic obstructive pulmonary disease, unspecified COPD type J44.9 ; Coronary artery disease involving [place] heart, angina presence unspecified, unspecified vessel or lesion type I25.10 ; Hypertension, benign I10 and LAURY (obstructive sleep apnea) G47.33 [place] [address] [address] February, Medicare annual wellness vis it, initial Z00.00 ; Morbid obesity due to excess calories E66.01 ; Chronic obstructive pulmonary disease, unspecified COPD type J44.9 ; Coronary artery disease involving [place] heart, angina presence unspecified, unspecified vessel or lesion type I25.10 ; Hypertension, benign I10 ; LAURY (obstructive sleep apnea) G47.33 ; Family history of colon cancer Z80.0 ; Other chronic pain G89.29 and Pain in right hip M25.551 [place] [address] [address] Jan, [address] [address] Nov, Panlobular emphysema J43.1 [place] [address] [address] Nov, COPD exacerbation J44.1 [place] [address] [address] Nov, Viral URI J06.9 [place] [address] [address] Nov, [place] [address] [address] Nov, [place] [address] [address] Sep, Other obesity due to excess calories E66.09 and Body mass index (BMI) of 36.0-36.9 in adult Z68.[address] [address] Aug, [place] [address] [address] Aug, [facility] [address] [id number] [address] [place] [address] Aug, Coronary artery disease invo lving [place] heart, angina presence unspecified, unspecified vessel or lesion type I25.10 and Chronic obstructive pulmonary disease, unspecified COPD type J44.9 [facility] [address] [facility] [id number] [address] [place] [address] Jul, COPD with acute exacerbation J44.1 [facility] [address] [id number] [address] [place] [address] Jul, Non morbid obesity E66.9 [place] [address] [facility] [id number] [address] [place] [address] Jun, Panlobular emphysema J43.1 ; Tobacco abuse Z72.0 ; Tobacco abuse counseling Z71.6 and Non morbid obesity E66.9 [facility] [address] [facility] [id number] [address] [place] [address] Apr, [facility] [address] [facility] [id number] [address] [place] [address] Apr, [facility] [address] [facility] [id number] [address] [place] [address] Mar, COPD exacerbation J44.1 [facility] [address] [facility] [id number] [address] [place] [address] Mar, Tear of medial meniscus of r ight knee, current, unspecified tear type, initial encounter S83.241A [facility] [address] [facility] [id number] [address] [place] [address] Mar, Pain in right knee M25.561 [facility] [address] [facility] [id number] [address] [place] [address] February, Pain in right knee M25.561 [facility] [address] [facility] [id number] [address] [place] [address] February, Pain in right knee M25.561 [facility] [address] [facility] [id number] [address] [place] [address] Dec, [facility] [address] [facility] [id number] [address] [place] [address] Nov, [facility] [address] [facility] [id number] [address] [place] [address] Nov, Bronchitis J40 and Wheezing R06.2 [facility] [address] [facility] [id number] [address] [place] [address] Oct, [place] [address] [facility] [id number] [address] [place] [address] Oct, [place] [address] [facility] [id number] [address] [place] [address] Oct, Non morbid obesity due to ex cess calories E66.09 ; Other chronic pain G89.29 and Pain in right knee M25.561 [facility] [address] [facility] [id number] [address] [place] [address] Oct, Non morbid obesity due to ex cess calories E66.09 ; Other chronic pain G89.29 and Pain in right knee M25.561 [place] [address] [facility] [id number] [address] [place] [address] Oct, Pain in right knee M25.561 a nd Other chronic pain G89.29 [place] [address] [facility] [id number] [address] [place] [address] Aug, Encounter for immunization Z 23 [facility] [address] [facility] [id number] [address] [place] [id number] Aug, [place] [address] [facility] [id number] [address] [place] [address] Aug, [facility] [address] [facility] [id number] [address] [place] [address] Jun, Common wart B07.8 [facility] [address] [facility] [id number] [address] [place] [address] May, Cellulitis of left elbow L03 .114 [facility] [address] [facility] [id number] [address] [place] [address] Mar, Torticollis, acute M43.6 and Leg pain, left M79.605 [place] [address] [facility] [id number] [address] [place] [address] February, Leg pain, left M79.605 [facility] IN [facility] [address] [facility] [id number] [address] [place] [address] Dec, COPD exacerbation J44.1 [place] [address] [facility] [id number] [place] [address] Dec, [place] [address] [place] [id number] [place] [address] Oct, Chronic obstructive pulmonar y disease, unspecified COPD type J44.9 and Hyperglycemia R73.9 [place] [address] [place] [id number] [address] [place] [address] Sep, Tobacco abuse Z72.0 ; Figueroa ry artery disease involving [place] heart, angina presence unspecified, unspecified vessel or lesion type I25.10 and Morbid obesity due to excess calories E66.01 [place] [address] [facility] [id number] [address] [place] [address] Sep, [place] [address] [facility] [id number] [address] [place] [address] Sep, Leg pain, left M79.605 [place] [address] [facility] [id number] [address] [place] [address] Sep, [place] [address] [place] [id number] [address] [place] [address] Sep, [place] [address] [facility] [id number] [address] [place] [address] Aug, Essential (primary) hyperten autumn I10 [facility] [id number] [place] [address] 11 Aug, 2015 Encounter for immunization Z 23 [facility] [address] [place] [id number] [address] [place] [id number] 05 Aug, 2015 [facility] [address] [address] May, Chronic airway obstruction, not elsewhere classified 496 [facility] [address] [place] [id number] [place] [address] May, [facility] [address] [address] May, [facility] [address] [place] [id number] [place] [address] May, Acute bronchitis 466.0 [place] [address] [address] May, [facility] [address] [address] May, Hyperglycemia 790.29 [facility] [address] [address] Apr, [facility] [address] [address] Apr, Cough 786.2 ; Hyperglycemia 790.29 and COPD (chronic obstructive pulmonary disease) 496 [facility] [address] [place] [id number] [address] [place] [address] 30 Mar, 2015 Cough 786.2 ; Elevated gluco se 790.29 ; Wheezing 786.07 ; COPD exacerbation 491.21 and Nicotine dependence 305.1 [facility] [address] [place] [id number] [address] [place] [address] Mar, High risk medication use V58 .69 [facility] [address] [address] Mar, High risk medication use V58 .69 and Benign hypertension 401.1 [facility] [address] [id number] [address] [place] [id number] 08 Mar, 2015 [facility] [address] [id number] [address] [place] [address] February, [facility] [address] [id number] [address] [place] [phone] February, [facility] [address] [id number] [address] [place] [id number] 30 Jan, 2015 [facility] [address] [id number] [address] [place] [phone] 30 Jan, 2015 Benign hypertension 401.1 [facility] [address] [id number] [address] [place] [address], [place] [id number] 14 Jan, 2015 [facility] [address] [id number] [address] [place] [id number] Jan, [facility] [address] [id number] [address] [place] [id number] 27 Dec, 2014 [facility] [address] [id number] [address] [place] [id number] 27 Dec, 2014 [facility] [address] [id number] [address] [place] [id number] 26 Dec, 2014 [facility] [address] [id number] [address] [place] [phone] 18 Dec, 2014 [facility] [address] [id number] [address] [place] [id number] 18 Dec, 2014 [facility] [address] [id number] [address] [place] [id number] 2014 [facility] [address] [id number] [address] [place] [id number] 2014 [facility] [address] [id number] [address] [place] [id number] Dec, [facility] [address] [id number] [address] [place] [address], [place] [phone] Dec, [facility] [address] [id number] [address] [place] [address], [place] [phone] Dec, [facility] [address] [id number] [address] [place] [address], [place] [id number] Dec, [facility] [facility] [address] [id number] [address] [place] [address], [place] [address] Dec, [facility] [address] [id number] [address] [place] [address], [place] [address] Dec, [facility] [address] [id number] [address] [place] [address], [place] [address] Dec, [facility] [address] [id number] [address] [place] [address], [place] [address] Dec, [facility] [address] [id number] [address] [place] [address], [place] [address] Nov, [facility] [address] [id number] [address] [place] [address], [place] [address] Nov, [facility] [address] [id number] [address] [place] [address], [place] [address] Nov, [facility] [address] [id number] [address] [place] [address], [place] [address] Nov, [facility] [address] [id number] [address] [place] [address], [place] [address] Oct, [facility] [address] [id number] [address] [place] [address], [place] [address] Oct, [facility] [address] [id number] [address] [place] [address], [place] [address] Oct, [facility] [address] [id number] [address] [place] [address], [place] [address] Oct, [facility] [address] [id number] [address] [place] [address], [place] [address] Oct, [facility] [address] [id number] [address] [place] [address], [place] [address] Oct, [facility] [address] [id number] [address] [place] [address], [place] [address] Oct, [facility] [address] [id number] [address] [place] [address], [place] [address] Oct, [facility] [address] [id number] [address] [place] [address], [place] [address] Sep, [facility] [address] [id number] [address] [place] [address], [place] [address] Sep, [facility] [address] [id number] [address] [place] [address], [place] [address] Sep, [facility] [address] [id number] [address] [place] [address], [place] [address] Sep, [facility] [address] [id number] [address] [place] [address], [place] [address] Sep, [facility] [address] [id number] [address] [place] [address], [place] [address] Sep, [facility] [address] [id number] [address] [place] [address], [place] [address] Sep, [facility] [address] [id number] [address] [place] [address], [place] [address] Sep, [facility] [address] [id number] [address] [place] [address], [place] [address] Aug, [facility] [address] [id number] [address] [place] [address], [place] [address] Aug, [facility] [address] [id number] [address] [place] [address], [place] [address] Aug, [facility] [address] [id number] [address] [place] [address], [place] [address] Aug, [facility] [address] [id number] [address] [place] [address], [place] [address] Jul, [facility] [address] [id number] [address] [place] [address], [place] [address] Jul, [facility] [address] [id number] [address] [place] [address], [place] [address] Jul, [facility] [address] [id number] [address] [place] [address], [place] [address] Jul, [facility] [address] [id number] [address] [place] [address], [place] [address] Jul, [facility] [address] [id number] [address] [place] [address], [place] [address] Jul, [facility] [address] [id number] [address] [place] [address], [place] [address] Jul, [facility] [address] [id number] [address] [place] [address], [place] [address] Jul, [facility] [address] [id number] [address] [place] [address], [place] [address] Jul, [facility] [address] [id number] [address] [place] [address], [place] [address] Jul, [facility] [address] [id number] [address] [place] [address], [place] [address] Jul, [facility] [address] [id number] [address] [place] [address] Jul, [facility] [address] [id number] [address] [place] [address], [place] [address] Jul, [facility] [address] [id number] [address] [place] [address], [place] [address] Jul, [facility] [address] [id number] [address] [place] [address] Jul, [facility] [address] [id number] [address] [place] [address] Jul, [facility] [address] [id number] [address] [place] [address], [place] [address] Jul, [facility] [address] [id number] [address] [place] [address], [place] [address] Jul, [facility] [address] [id number] [address] [place] [address], [place] [address] Jul, [facility] [address] [id number] [address] [place] [address], [place] [address] Jul, [facility] [address] [id number] [address] [place] [address], [place] [address] Jul, [facility] [address] [id number] [address] [place] [address], [place] [address] Jul, [facility] [address] [id number] [address] [place] [address], [place] [address] 29 Jun, 2013 [facility] [address] [id number] [address] [place] [address], [place] [address] 29 Sep, 2013 [facility] [address] [id number] [address] [place] [address], [place] [address] 17 Sep, 2013 [facility] [address] [id number] [address] [place] [address], [place] [address] 17 Sep, 2013 [facility] [address] [id number] [address] [place] [address], [place] [address] 05 Sep, 2013 [facility] [address] [id number] [address] [place] [address] 05 Sep, 2013 [facility] [address] [id number] [address] [place] [address], [place] [address] 04 Sep, 2013 [facility] [address] [id number] [address] [place] [address], [place] [address] 04 Sep, 2013 [facility] [address] [id number] [address] [place] [address], [place] [address] 04 Sep, 2013 [facility] [address] [id number] [address] [address] Jun, [facility] [address] [id number] [address] [address] May, [facility] [address] [id number] [address] [place] [address], [place] [address] May, [facility] [address] [id number] [address] [place] [address], [place] [address] May, [facility] [address] [id number] [address] [place] [address], [place] [address] May, [facility] [address] [id number] [address] [place] [address], [place] [address] May, [facility] [address] [id number] [address] [place] [address], [place] [address] May, [facility] [address] [id number] [address] [place] [address], [place] [address] May, [facility] [address] [id number] [address] [place] [address], [place] [address] May, [facility] [address] [id number] [address] [place] [address], [place] [address] Apr, [facility] [address] [id number] [address] [place] [address], [place] [address] Apr, [facility] [address] [id number] [address] [place] [address], [place] [address] Apr, [facility] [address] [id number] [address] [place] [address], [place] [address] Apr, [facility] [address] [id number] [address] [place] [address], [place] [address] Apr, [facility] [address] [id number] [address] [place] [address], [place] [address] Apr, [facility] [address] [id number] [address] [place] [address], [place] [address] Mar, [facility] [address] [id number] [address] [address] Mar, [facility] [address] [id number] [address] [place] [address], [place] [address] Mar, [facility] [address] [id number] [address] [place] [address], [place] [address] Mar, [facility] [address] [id number] [address] [place] [address], [place] [address] Mar, [facility] [address] [id number] [address] [place] [address], [place] [address] Mar, [facility] [address] [id number] [address] [place] [address], [place] [address] Mar, [facility] [address] [id number] [address] [place] [address], [place] [address] Mar, [facility] [address] [id number] [address] [place] [address], [place] [address] February, [facility] [address] [id number] [address] [place] [address], [place] [address] February, [facility] [address] [id number] [address] [place] [address], [place] [address] February, [facility] [address] [id number] [address] [place] [address], [place] [address] February, [facility] [address] [id number] [address] [place] [address], [place] [address] February, [facility] [address] [id number] [address] [place] [address], [place] [address] Jan, [facility] [address] [id number] [address] [place] [address], [place] [address] Jan, [facility] [address] [id number] [address] [place] [address], [place] [address] Nov, [facility] [address] [id number] [address] [place] [address], [place] [address] 05 Nov, 2013 [facility] [address] [id number] [address] [place] [address], [place] [address] Nov, [facility] [address] [id number] [address] [place] [address], [place] [address] Nov, [facility] [address] [id number] [address] [place] [address], [place] [address] Nov, [facility] [address] [id number] [address] [place] [address], [place] [address] Nov, [facility] [address] [id number] [address] [place] [address], [place] [address] Oct, [facility] [address] [id number] [address] [place] [address], [place] [address] Oct, [facility] [address] [id number] [address] [place] [address], [place] [address] Oct, [facility] [address] [id number] [address] [place] [address], [place] [address] Sep, [facility] [address] [id number] [address] [place] [address], [place] [address] Sep, [facility] [address] [id number] [address] [place] [address], [place] [address] Aug, [facility] [address] [id number] [address] [place] [address], [place] [address] Aug, [facility] [address] [id number] [address] [place] [address], [place] [address] Aug, [facility] [address] [id number] [address] [place] [address], [place] [address] Aug, [facility] [address] [id number] [address] [place] [address], [place] [address] Jul, [facility] [address] [id number] [address] [place] [address], [place] [address] Jul, [facility] [address] [id number] [address] [place] [address], [place] [address] Jul, [facility] [address] [id number] [address] [place] [address], [place] [address] Jul, [facility] [address] [id number] [address] [place] [address], [place] [address] Jul, [facility] [address] [id number] [address] [place] [address], [place] [address] Jun, [facility] [address] [id number] [address] [place] [address], [place] [address] Jun, [facility] [address] [id number] [address] [place] [address], [place] [address] May, [facility] [address] [id number] [address] [place] [address], [place] [address] May, [facility] [address] [id number] [address] [place] [address], [place] [address] May, [facility] [address] [id number] [address] [place] [address], [place] [address] May, [facility] [address] [id number] [address] [place] [address], [place] [address] May, [facility] [address] [id number] [address] [place] [address], [place] [address] May, [facility] [address] [id number] [address] [place] [address], [place] [address] Apr, [facility] [address] [id number] [address] [place] [address], [place] [address] Apr, [facility] [address] [id number] [address] [place] [address], [place] [address] Apr, [facility] [address] [id number] [address] [place] [address], [place] [address] Apr, [facility] [address] [id number] [address] [place] [address], [place] [address] Apr, [facility] [address] [id number] [address] [place] [address], [place] [address] Mar, [facility] [address] [id number] [address] [place] [address], [place] [address] Mar, [facility] [address] [id number] [address] [place] [address], [place] [address] Mar, [facility] [address] [id number] [address] [place] [address], [place] [address] February, [facility] [address] [id number] [address] [place] [address], [place] [address] February, [facility] [address] [id number] [address] [place] [address], [place] [address] February, [facility] [address] [id number] [address] [place] [address], [place] [address] Dec, [facility] [address] [id number] [address] [place] [address], [place] [address] Dec, [facility] [address] [id number] [address] [place] [address], [place] [address] Dec, [facility] [address] [id number] [address] [place] [address], [place] [address] Oct, [facility] [address] [id number] [address] [place] [address], [place] [address] Oct, [facility] [address] [id number] [address] [place] [address], [place] [address] Sep, [facility] [address] [id number] [address] [place] [address], [place] [address] Sep, [facility] [address] [id number] [address] [place] [address], [place] [address] Aug, [facility] [address] [id number] [address] [place] [address], [place] [address] Aug, [facility] [address] [id number] [address] [place] [address] Aug, [facility] [address] [id number] [address] [place] [address] Aug, [facility] [address] [id number] [address] [place] [address] Aug, [facility] [address] [id number] [address] [place] [address] Aug, [facility] [address] [id number] [address] [place] [address] Jul, [facility] [address] [id number] [address] [place] [address] Jul, [facility] [address] [id number] [address] [place] [address] Jul, [facility] [address] [id number] [address] [place] [address] Jul, [facility] [address] [id number] [address] [place] [address] Jul, [facility] [address] [id number] [address] [place] [address] Jul, [facility] [address] [id number] [address] [place] [address] Jun, [facility] [address] [id number] [address] [place] [address] Jun, [facility] [address] [id number] [address] [place] [id number] Jun, [facility] [address] [id number] [address] [place] [address] Jun, IMMUNIZATIONS No Known Immunizations SOCIAL HISTORY [...] legs 02/2019 Hospitalization History surgeries Hospitalization History [facility]- Viral infection Aug 26 Hospitalization History [facility]- Flu Sx 12/10/2016 Hospitalization History [facility]- Congestion, runny n ose and abd pain 12/21/2017
--- OUTSIDE RECORDS SUMMARY | 2020-05-11 18:39 | XMS REPORT ---
Author Author Suman CARDOZA Organization [facility] Address [address] [place] [address] Care Team Providers Care Fisheries Officer Name Role Phone RENETTA CARDOZA Unavailable PROBLEMS Type Condition ICD9-CM Code JEE18-IS Code Onset Dates Condition S tatus SNOMED Code Problem Morbid obesity due to excess calories E66.01 Active 542949806 Problem Coronary artery disease invo lving [place] heart, angina presence unspecified, unspecified vessel or lesion type I25.10 Active 33201695 Problem Palpitations R00.2 Active 5556877 2 Problem Tobacco abuse Z72.0 Active 401398 05 Problem Non morbid obesity due to excess calories E66.09 Active 370754637 Problem Other chronic pain G89.29 Active 8 0470322 Problem Panlobular emphysema J43.1 Active 8401270 Problem Non morbid obesity E66.9 Active 4 68273339 Problem COPD exacerbation J44.1 Active 19 6785421 Problem Erectile dysfunction, unspecified erectile dysfunction typ e N52.9 Active 009353760 Problem Seizure disorder G40.909 Active 128 838257 Problem Primary insomnia F51.01 Active 397 2004 Problem COPD with acute exacerbation J44.1 A ctive 569532335 Problem LAURY (obstructive sleep apnea) G47.33 Active 31636847 Problem Atherosclerotic heart diseas e of [place] coronary artery with other forms of angina pectoris I25.118 Active 240029804 Problem Other obesity due to excess calories E66.09 Active 387296096 Problem Chronic obstructive pulmonary disease, unspecified COPD ty pe J44.9 Active 43526569 Problem Hypertension, benign I10 Active 78676485 Problem Chronic major depressive disorder, recurrent episode F33.9 Active 65341748 Problem Coronary artery disease of n ative artery of [place] heart with stable angina pectoris I25.118 Active [id number] 7 Problem RLS (restless legs syndrome) G25.81 A ctive 93838355 Problem Restless leg syndrome G25.81 Active 80826029 ALLERGIES No Information ENCOUNTERS Encounter Location Date Diagnosis [facility] [address] [facility] [id number] [address] [place] [address] February, Right leg swelling M79.89 [facility] [address] [facility] [id number] [address] [place] [address] 30 Jan, 2020 Dependent edema R60.9 [facility] [address] [facility] [id number] [address] [place] [address] Jan, Dependent edema R60.9 [facility] [address] [facility] [id number] [address] [place] [address] Jan, Hyperglycemia R73.9 and Loca lized edema R60.0 [facility] [address] [facility] [id number] [address] [place] [address] Jan, [place] [address] [facility] [id number] [address] [place] [address] Jan, Counseled by nurse Z71.9 [place] [id number] [facility] [id number] [address] [place] [address] Jan, Hyperglycemia R73.9 and Loca lized edema R60.0 [place] [address] [facility] [id number] [address] [place] [address] Jan, [place] [address] [facility] [id number] [address] [place] [address] Jan, [facility] [address] [facility] [id number] [address] [place] [address] Jan, Hyperglycemia R73.9 [facility] [address] [facility] [id number] [address] [place] [address] Jan, Hyperglycemia R73.9 [place] [address] [facility] [id number] [address] [place] [address] 16 Jan, 2020 Coronary artery disease invo lving [place] heart, angina presence unspecified, unspecified vessel or lesion type I25.10 and Localized edema R60.0 [place] [address] [address] 15 Jan, 2020 [place] [address] [address] 15 Jan, 2020 Coronary artery disease invo lving [place] heart, angina presence unspecified, unspecified vessel or lesion type I25.10 and Localized edema R60.0 [facility] [place] [address] [address] 14 Jan, 2020 Bilateral edema of lower ext remity R60.0 and SOB (shortness of breath) R06.02 [place] [address] [address] 05 Dec, 2019 Chronic obstructive pulmonar y disease, unspecified COPD type J44.9 ; Non morbid obesity due to excess calories E66.09 ; Seizure disorder G40.909 ; Atherosclerotic heart disease of [place] coronary artery with other forms of angina pectoris I25.118 ; Other chronic pain G89.29 ; Pain in right knee M25.561 and RLS (restless legs syndrome) G25.81 [facility] [place] [address] [address] 20 Nov, 2019 COPD exacerbation J44.1 and Cough R05 [place] [address] [address] Nov, [place] [address] [address] Nov, Chronic obstructive pulmonar y disease, unspecified COPD type J44.9 [place] [address] [address] 03 Nov, 2019 [facility] [place] [address] [address] 30 Oct, 2019 COPD exacerbation J44.1 and Tobacco abuse Z72.0 [place] [address] [address] Oct, [place] [id number] [place] [address] Oct, Right knee pain, unspecified chronicity M25.561 [place] [id number] [place] [address] Sep, Restless leg syndrome G25.81 and Primary insomnia F51.01 [facility] [address] [address] Sep, Chronic obstructive pulmonar y disease, unspecified COPD type J44.9 and COPD exacerbation J44.1 [place] [address] [address] Sep, RLS (restless legs syndrome) G25.81 [place] [address] [address] Aug, Other chronic pain G89.29 ; Pain in right knee M25.561 ; Seizures R56.9 ; Coronary artery disease of [place] artery of [place] heart with stable angina pectoris I25.118 and Chronic major depressive disorder, recurrent episode F33.9 [facility] [address] [address] Jul, Right knee pain, unspecified chronicity M25.561 [place] [address] [address] Jul, [place] [address] [address] Jul, Foot pain, right M79.671 ; M orbid obesity due to excess calories E66.01 ; Seizures R56.9 and Encounter for immunization Z23 [place] [address] [address] Jun, [place] [address] [address] [place] [id number] [place] [address] 04 Jun, 2019 Non morbid obesity due to ex cess calories E66.09 and Foot callus L84 [facility] [address] [id number] [address] [place] [address] May, [facility] [address] [facility] [id number] [address] [place] [address] May, Flank pain R10.9 [facility] [address] [facility] [id number] [address] [place] [address] May, Focal seizures R56.9 [facility] [address] [facility] [id number] [address] [place] [address] May, COPD exacerbation J44.1 and Non morbid obesity E66.9 [facility] [address] [facility] [id number] [address] [place] [address] May, Seizure disorder G40.909 [facility] [address] [facility] [id number] [address] [place] [address] May, [facility] [address] [facility] [id number] [address] [place] [address] May, [facility] [address] [facility] [id number] [address] [place] [address] May, Abscess of left foot L02.612 [facility] [address] [facility] [id number] [address] [place] [address] Apr, Cellulitis of left lower ext remity L03.116 [facility] [address] [facility] [id number] [address] [place] [address] Apr, [facility] [address] [facility] [id number] [address] [place] [address] Apr, [facility] [address] [facility] [id number] [address] [place] [address] Apr, Cellulitis of left foot L03. 116 [facility] [address] [facility] [id number] [address] [place] [address] Apr, Chronic obstructive pulmonar y disease, unspecified COPD type J44.9 and Seizures R56.9 [facility] [address] [facility] [id number] [address] [place] [address] Mar, [facility] [address] [facility] [id number] [address] [place] [address] Mar, [facility] [address] [facility] [id number] [address] [place] [address] Mar, [facility] [address] [facility] [id number] [address] [place] [address] February, [facility] [address] [facility] [id number] [address] [place] [address] February, [facility] [address] [facility] [id number] [address] [place] [address] Jan, [facility] [address] [place] [id number] [address] [place] [address] 30 Aug, 2018 Wheezes R06.2 and Pneumonia J18.9 [facility] [address] [facility] [id number] [address] [place] [address] Aug, Erectile dysfunction, unspec ified erectile dysfunction type N52.9 [facility] [address] [facility] [id number] [address] [place] [address] Aug, Non morbid obesity E66.9 [facility] [address] [facility] [id number] [address] [place] [address] Jul, [facility] [address] [facility] [id number] [address] [place] [address] Jul, Testicular swelling, right N 50.89 [place] [address] [facility] [id number] [address] [place] [address] Jul, Callus L84 [facility] [address] [place] [id number] [address] [place] [address] Jun, Non morbid obesity E66.9 ; C OPD exacerbation J44.1 ; 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 and Dermatofibroma D23.9 [place] [address] [address] [place] [id number] [address] [place] [address] May, Non morbid obesity E66.9 and Grade II hemorrhoids K64.1 [place] [address] [address] [place] [id number] [address] [place] [address] Mar, [place] [address] [address] Mar, Cough 786.2 ; Medicare annua l wellness visit, initial Z00.00 ; Morbid obesity due to excess calories E66.01 ; Chronic obstructive pulmonary disease, unspecified COPD type J44.9 ; Coronary artery disease involving [place] heart, angina presence unspecified, unspecified vessel or lesion type I25.10 ; Hypertension, benign I10 and LAURY (obstructive sleep apnea) G47.33 [place] [address] [address] February, Medicare annual wellness vis it, initial Z00.00 ; Morbid obesity due to excess calories E66.01 ; Chronic obstructive pulmonary disease, unspecified COPD type J44.9 ; Coronary artery disease involving [place] heart, angina presence unspecified, unspecified vessel or lesion type I25.10 ; Hypertension, benign I10 ; LAURY (obstructive sleep apnea) G47.33 ; Family history of colon cancer Z80.0 ; Other chronic pain G89.29 and Pain in right hip M25.551 [place] [address] [address] [place] [id number] [address] [place] [address] Jan, [place] [address] [place] [id number] [address] [place] [address] Nov, Panlobular emphysema J43.1 [place] [address] [address] Nov, COPD exacerbation J44.1 [place] [address] [place] [id number] [address] [place] [address] 15 Nov, 2017 Viral URI J06.9 [place] [address] [address] Nov, [facility] [address] [facility] [id number] [address] [place] [address] Nov, [facility] [address] [facility] [id number] [address] [place] [address] Sep, Other obesity due to excess calories E66.09 and Body mass index (BMI) of 36.0-36.9 in adult Z68.36 [facility] [address] [facility] [id number] [address] [place] [address] Aug, [facility] [address] [facility] [id number] [place] [address] Aug, [facility] [address] [facility] [id number] [place] [address] Aug, Coronary artery disease invo lving [place] heart, angina presence unspecified, unspecified vessel or lesion type I25.10 and Chronic obstructive pulmonary disease, unspecified COPD type J44.9 [facility] [address] [facility] [id number] [address] [place] [address] Jul, COPD with acute exacerbation J44.1 [facility] [address] [facility] [id number] [address] [place] [address] Jul, Non morbid obesity E66.9 [facility] [address] [facility] [id number] [place] [address] Jun, Panlobular emphysema J43.1 ; Tobacco abuse Z72.0 ; Tobacco abuse counseling Z71.6 and Non morbid obesity E66.9 [facility] [address] [facility] [id number] [address] [place] [address] Apr, [facility] [address] [place] [id number] [place] [address] Apr, [facility] [address] [facility] [id number] [address] [place] [address] Mar, COPD exacerbation J44.1 [facility] [address] [facility] [id number] [address] [place] [address] Mar, Tear of medial meniscus of r ight knee, current, unspecified tear type, initial encounter S83.241A [facility] [address] [id number] [address] [place] [address] Mar, Pain in right knee M25.561 [facility] [address] [id number] [address] [place] [address] February, Pain in right knee M25.561 [facility] [address] [id number] [address] [place] [address] February, Pain in right knee M25.561 [place] [address] [facility] [id number] [address] [place] [address] Dec, [place] [address] [facility] [id number] [address] [place] [address] Nov, [facility] [address] [facility] [id number] [address] [place] [address] Nov, Bronchitis J40 and Wheezing R06.2 [place] [address] [facility] [id number] [address] [place] [address] Oct, [place] [address] [facility] [id number] [address] [place] [address] Oct, [place] [id number] [facility] [id number] [address] [place] [address] Oct, Non morbid obesity due to ex cess calories E66.09 ; Other chronic pain G89.29 and Pain in right knee M25.561 [facility] [address] [id number] [address] [place] [address] Oct, Non morbid obesity due to ex cess calories E66.09 ; Other chronic pain G89.29 and Pain in right knee M25.561 [facility] [address] [id number] [address] [place] [address] 03 Иван, 2017 Pain in right knee M25.561 a nd Other chronic pain G89.29 [facility] [address] [facility] [id number] [address] [place] [address] Aug, Encounter for immunization Z 23 [place] [address] [facility] [id number] [address] [place] [address] Aug, [place] [address] [facility] [id number] [address] [place] [address] Aug, [place] [address] [place] [id number] [address] [place] [address] Jun, Common wart B07.8 [facility] [address] [place] [id number] [place] [address] May, Cellulitis of left elbow L03 .114 [place] [address] [place] [id number] [address] [place] [address] Mar, Torticollis, acute M43.6 and Leg pain, left M79.605 [place] [address] [place] [address] February, Leg pain, left M79.605 [facility] [address] [place] [id number] [place] [address] Dec, COPD exacerbation J44.1 [place] [address] [place] [id number] [address] [place] [address] Dec, [place] [address] [place] [id number] [address] [place] [address] Oct, Chronic obstructive pulmonar y disease, unspecified COPD type J44.9 and Hyperglycemia R73.9 [place] [address] [place] [id number] [address] [place] [address] Sep, Tobacco abuse Z72.0 ; Figueroa ry artery disease involving [place] heart, angina presence unspecified, unspecified vessel or lesion type I25.10 and Morbid obesity due to excess calories E66.01 [place] [address] [place] [id number] [address] [place] [address] 14 Sep, 2015 [facility] [address] [facility] [id number] [address] [place] [address] Sep, Leg pain, left M79.605 [facility] [address] [facility] [id number] [address] [place] [address] 04 Sep, 2015 [facility] [address] [facility] [id number] [address] [place] [address] Sep, [facility] [address] [facility] [id number] [address] [place] [address] Aug, Essential (primary) hyperten autumn I10 [facility] [address] [facility] [id number] [address] [place] [address] Aug, Encounter for immunization Z 23 [facility] [address] [facility] [id number] [address] [place] [address] Aug, [facility] [address] [facility] [id number] [address] [place] [address] May, Chronic airway obstruction, not elsewhere classified 496 [facility] [address] [facility] [id number] [address] [place] [address] May, [facility] [address] [facility] [id number] [address] [place] [address] May, [facility] [address] [facility] [id number] [address] [place] [address] May, Acute bronchitis 466.0 [facility] [address] [facility] [id number] [address] [place] [address] May, [facility] [address] [place] [id number] [address] [place] [address] May, Hyperglycemia 790.29 [facility] [address] [facility] [id number] [address] [place] [address] Apr, [facility] [address] [place] [id number] [address] [place] [address] Apr, Cough 786.2 ; Hyperglycemia 790.29 and COPD (chronic obstructive pulmonary disease) 496 [facility] [address] [facility] [id number] [address] [place] [address] 30 Mar, 2015 Cough 786.2 ; Elevated gluco se 790.29 ; Wheezing 786.07 ; COPD exacerbation 491.21 and Nicotine dependence 305.1 [facility] [address] [facility] [id number] [address] [place] [address] 16 Mar, 2015 High risk medication use V58 .69 [facility] [address] [facility] [id number] [address] [place] [address] Mar, High risk medication use V58 .69 and Benign hypertension 401.1 [facility] [address] [facility] [id number] [address] [place] [address] 08 Mar, 2015 [facility] [address] [facility] [id number] [address] [place] [address] February, [facility] [address] [facility] [id number] [address] [place] [address] February, [facility] [address] [facility] [id number] [address] [place] [address] Jan, [facility] [address] [facility] [id number] [address] [place] [address] Jan, Benign hypertension 401.1 [facility] [address] [facility] [id number] [address] [place] [address] Jan, [facility] [address] [id number] [address] [place] [address] Jan, [facility] [address] [facility] [id number] [address] [place] [address] Dec, [facility] [address] [facility] [id number] [address] [place] [address] Dec, [facility] [address] [facility] [id number] [address] [place] [address] Dec, [facility] [address] [id number] [facility] [place] [address] 18 Dec, 2014 [facility] [address] [id number] [address] [place] [address], [place] [id number] 18 Dec, 2014 [facility] [address] [id number] [address] [place] [address], [place] [id number] 2014 [facility] [address] [id number] [address] [place] [address], [place] [id number] 2014 [facility] [address] [id number] [address] [place] [address], [place] [address] Dec, [facility] [address] [id number] [address] [place] [address], [place] [id number] Dec, [facility] [address] [id number] [address] [place] [address], [place] [address] Dec, [facility] [address] [id number] [address] [place] [address], [place] [id number] Dec, [facility] [address] [id number] [address] [place] [address], [place] [id number] 05 Dec, 2014 [facility] [address] [id number] [address] [place] [address], [place] [id number] 05 Dec, 2014 [facility] [address] [id number] [address] [place] [address], [place] [id number] Dec, [facility] [address] [id number] [address] [place] [address], [place] [address] Dec, [facility] [address] [id number] [address] [place] [address], [place] [address] Nov, [facility] [address] [id number] [address] [place] [address], [place] [address] Nov, [facility] [address] [id number] 25 [place] [address], [place] [address] Nov, [facility] [address] [id number] [address] [place] [address], [place] [address] Nov, [facility] [address] [id number] [address] [place] [address], [place] [address] Oct, [facility] [address] [id number] [address] [place] [address], [place] [address] Oct, [facility] [address] [id number] [address] [place] [address], [place] [address] Oct, [facility] [address] [id number] [address] [place] [address], [place] [address] Oct, [facility] [address] [id number] [address] [place] [address], [place] [address] Oct, [facility] [address] [id number] [address] [place] [address], [place] [address] Oct, [facility] [address] [id number] [address] [place] [address], [place] [address] Oct, [facility] [address] [id number] [address] [place] [address], [place] [address] Oct, [facility] [address] [id number] [address] [place] [address], [place] [address] Sep, [facility] [address] [id number] [address] [place] [address], [place] [address] Sep, [facility] [address] [id number] [address] [place] [address], [place] [address] Sep, [facility] [address] [id number] [address] [place] [address], [place] [address] Sep, [facility] [address] [id number] [address] [place] [address], [place] [address] Sep, [facility] [address] [id number] [address] [place] [address], [place] [address] Sep, [facility] [address] [id number] [address] [place] [address], [place] [address] Sep, [facility] [address] [id number] [address] [place] [address], [place] [address] Sep, [facility] [address] [id number] [address] [place] [address], [place] [address] Aug, [facility] [address] [id number] [address] [place] [address], [place] [address] Aug, [facility] [address] [id number] [address] [place] [address], [place] [address] Aug, [facility] [address] [id number] [address] [place] [address], [place] [address] Aug, [facility] [address] [id number] [address] [place] [address], [place] [address] Jul, [facility] [address] [id number] [address] [place] [address], [place] [address] Jul, [facility] [address] [id number] [address] [place] [address], [place] [address] Jul, [facility] [address] [id number] [address] [place] [address], [place] [address] Jul, [facility] [address] [id number] [address] [place] [address], [place] [address] Jul, [facility] [address] [id number] [address] [place] [address], [place] [address] Jul, [facility] [address] [id number] [address] [place] [address], [place] [address] Jul, [facility] [address] [id number] [address] [place] [address], [place] [address] Jul, [facility] [address] [id number] [address] [place] [address], [place] [address] Jul, [facility] [address] [id number] [address] [place] [address], [place] [address] Jul, [facility] [address] [id number] [address] [place] [address] Jul, [facility] [address] [id number] [address] [place] [address], [place] [address] Jul, [facility] [address] [id number] [address] [place] [address] Jul, [facility] [address] [id number] [address] [place] [address], [place] [address] Jul, [facility] [address] [id number] [address] [place] [address] Jul, [facility] [address] [id number] [address] [place] [address], [place] [address] Jul, [facility] [address] [id number] [address] [place] [address], [place] [address] Jul, [facility] [address] [id number] [address] [place] [address], [place] [address] Jul, [facility] [address] [id number] [address] [place] [address], [place] [address] Jul, [facility] [address] [id number] [address] [place] [address] Jul, [facility] [address] [id number] [address] [place] [address], [place] [address] Jul, [facility] [address] [id number] [address] [place] [address] Jul, [facility] [address] [id number] [address] [place] [address] 29 Jun, 2014 [facility] [address] [id number] [address] [place] [address], [place] [address] 29 Jun, 2013 [facility] [address] [id number] [address] [place] [address], [place] [address] Jun, 2013 [facility] [address] [id number] [address] [place] [address], [place] [address] Jun, 2013 [facility] [address] [id number] [facility] [place] [address] 05 Sep, 2013 [facility] [address] [id number] [facility] [place] [address] 05 Sep, 2013 [facility] [address] [id number] [facility] [place] [address] Jun, 2013 [facility] [address] [id number] [address] [place] [address], [place] [address] Jun, 2013 [facility] [address] [id number] [address] [place] [address], [place] [address] Jun, 2013 [facility] [address] [id number] [address] [place] [address], [place] [address] Jun, 2013 [facility] [address] [id number] [address] [place] [address], [place] [address] May, [facility] [address] [id number] [address] [place] [address], [place] [address] May, [facility] [address] [id number] [address] [place] [address], [place] [address] May, [facility] [address] [id number] [address] [place] [address], [place] [address] May, [facility] [address] [id number] [address] [place] [address], [place] [address] May, [facility] [address] [id number] [address] [place] [address], [place] [address] May, [facility] [address] [id number] [address] [place] [address], [place] [address] May, [facility] [address] [id number] [address] [place] [address], [place] [address] May, [facility] [address] [id number] [address] [place] [address], [place] [address] Apr, [facility] [address] [id number] [address] [place] [address], [place] [address] Apr, [facility] [address] [id number] [facility] [place] [address] Apr, [facility] [address] [id number] [facility] [place] [address] Apr, [facility] [address] [id number] [address] [place] [address], [place] [address] Apr, [facility] [address] [id number] [address] [place] [address], [place] [address] Apr, [facility] [address] [id number] [address] [place] [address], [place] [address] Mar, [facility] [address] [id number] [address] [place] [address], [place] [address] Mar, [facility] [address] [id number] [address] [place] [address], [place] [address] Mar, [facility] [address] [id number] [address] [place] [address], [place] [address] Mar, [facility] [address] [id number] [address] [place] [address], [place] [address] Mar, [facility] [address] [id number] [address] [place] [address], [place] [address] Mar, [facility] [address] [id number] [address] [place] [address], [place] [address] Mar, [facility] [address] [id number] [address] [place] [address], [place] [address] Mar, [facility] [address] [id number] [address] [place] [address], [place] [address] February, [facility] [address] [id number] [address] [place] [address], [place] [address] February, [facility] [address] [id number] [address] [place] [address], [place] [address] February, [facility] [address] [id number] [address] [place] [address], [place] [address] February, [facility] [address] [id number] [address] [place] [address], [place] [address] February, [facility] [address] [id number] [address] [place] [address], [place] [address] Jan, [facility] [address] [id number] [address] [place] [address], [place] [address] Jan, [facility] [address] [id number] [address] [place] [address], [place] [address] Nov, [facility] [address] [id number] [address] [place] [address], [place] [address] Nov, [facility] [address] [id number] [address] [place] [address], [place] [address] Nov, [facility] [address] [id number] [address] [place] [address], [place] [address] Nov, [facility] [address] [id number] [address] [place] [address], [place] [address] Nov, [facility] [address] [id number] [address] [place] [address], [place] [address] Nov, [facility] [address] [id number] [address] [place] [address], [place] [address] Oct, [facility] [address] [id number] [address] [place] [address], [place] [address] Oct, [facility] [address] [id number] [address] [place] [address], [place] [address] Oct, [facility] [address] [id number] [address] [place] [address], [place] [address] Sep, [facility] [address] [id number] [address] [place] [address], [place] [address] Sep, [facility] [address] [id number] [address] [place] [address], [place] [address] Aug, [facility] [address] [id number] [address] [place] [address], [place] [address] Aug, [facility] [address] [id number] [address] [place] [address], [place] [address] Aug, [facility] [address] [id number] [address] [place] [address], [place] [address] Aug, [facility] [address] [id number] [address] [place] [address], [place] [address] Jul, [facility] [address] [id number] [address] [place] [address], [place] [address] Jul, [facility] [address] [id number] [address] [place] [address], [place] [address] Jul, [facility] [address] [id number] [address] [place] [address], [place] [address] Jul, [facility] [address] [id number] [address] [place] [address], [place] [address] Jul, [facility] [address] [id number] [address] [place] [address], [place] [address] Jun, [facility] [address] [id number] [address] [place] [address] Jun, [facility] [address] [id number] [address] [place] [address] May, [facility] [address] [id number] [address] [place] [address] May, [facility] [address] [id number] [address] [place] [address], [place] [address] May, [facility] [address] [id number] [address] [place] [address], [place] [address] May, [facility] [address] [id number] [address] [place] [address] May, [facility] [address] [id number] [address] [place] [address] May, [facility] [address] [id number] [address] [place] [address], [place] [address] Apr, [facility] [address] [id number] [address] [place] [address], [place] [address] Apr, [facility] [address] [id number] [address] [place] [address], [place] [address] Apr, [facility] [address] [id number] [address] [place] [address], [place] [address] Apr, [facility] [address] [id number] [address] [place] [address], [place] [address] Apr, [facility] [address] [id number] [address] [place] [address], [place] [address] Mar, [facility] [address] [id number] [address] [place] [address], [place] [address] Mar, [facility] [address] [id number] [address] [place] [address], [place] [address] Mar, [facility] [address] [id number] [address] [place] [address], [place] [address] February, [facility] [address] [id number] [address] [place] [address], [place] [address] February, [facility] [address] [id number] [address] [place] [address], [place] [address] February, [facility] [address] [id number] [address] [place] [address], [place] [address] Dec, [facility] [address] [id number] [address] [place] [address], [place] [address] Dec, [facility] [address] [id number] [address] [place] [address], [place] [address] Dec, [facility] [address] [id number] [address] [place] [address], [place] [address] Oct, [facility] [address] [id number] [address] [place] [address], [place] [address] Oct, [facility] [address] [id number] [address] [place] [address], [place] [address] Sep, [facility] [address] [id number] [address] [place] [address], [place] [address] Sep, [facility] [address] [id number] [address] [place] [address], [place] [address] Aug, [facility] [address] [id number] [address] [place] [address], [place] [address] Aug, [facility] [address] [id number] [address] [place] [address], [place] [address] Aug, [facility] [address] [id number] [address] [place] [address], [place] [address] Aug, [facility] [address] [id number] [address] [place] [address], [place] [address] Aug, [facility] [address] [id number] [address] [place] [address], [place] [address] Aug, [facility] [address] [id number] [address] [place] [address], [place] [address] Jul, [facility] [address] [id number] [address] [place] [address], [place] [address] Jul, [facility] [address] [id number] [address] [place] [address], [place] [address] Jul, [facility] [address] [id number] [address] [place] [address], [place] [address] Jul, [facility] [address] [id number] [address] [place] [address], [place] [address] Jul, [facility] [address] [id number] [address] [place] [address], [place] [address] Jul, [facility] [address] [id number] [address] [place] [address], [place] [address] Jun, [facility] [address] [facility] [id number] [address] [place] [address] Jun, [facility] [address] [facility] [id number] [address] [place] [id number] 15 Jun, 2012 [facility] [address] [facility] [id number] [address] [place] [address] 15 Jun, 2012 IMMUNIZATIONS No Known Immunizations [...] 02/2019 Hospitalization History surgeries Hospitalization History [facility]- Viral infection Aug 26 Hospitalization History [facility]- Flu Sx 12/10/2016 Hospitalization History [facility]- Congestion, runny n ose and abd pain 12/21/2017
--- OUTSIDE RECORDS SUMMARY | 2020-05-11 18:53 | XMS REPORT | Continuity of Care Document ---
Demographics Preferred Language Unknown Marital Status Unknown Hindu Affiliation Unknown Race Unknown Ethnic Group Unknown Author Organization Unknown Address Unknown Phone Unavailable Allergies Active Description Code Type Severity Reaction Onset Reported/Identified Relationship to Patient Clinical Status Yes No Known Drug Allergies [id number] Drug Allergy Unknown N/A 08/21/2012 Yes diclofenac sodium 75 mg tablet,delayed r elease (DR/EC) Drug Allergy N/A N/A 04/21/2014 Yes diclofenac [id number] Drug Allerg y Unknown SWELLING 10/14/2015 Yes diclofenac [id number] Drug Allerg y Moderate SWELLING 06/15/2017 Medications There is no data. Problems Date Dx Coded Attending Type Code Diagnosis Diagnosed By 07/14/2012 RENETTA CARDOZA APRN 36 8.8 OTHER SPECIFIED VISUAL DISTURBANCES 07/14/2012 RENETTA CARDOZA APRN 607.84 IMPOTENCE OF ORGANIC ORIGIN 07/14/2012 RENETTA CARDOZA APRN 78 0.2 SYNCOPE AND COLLAPSE 07/14/2012 RENETTA CARDOZA APRN V65.42 COUNSELING - SMOKING CESSATION 07/14/2012 RENETTA CARDOZA APRN V7 0.0 ROUTINE GENERAL MEDICAL EXAMINATION AT A HEALTH CARE FACILITY 07/14/2012 368.8 OTHE R SPECIFIED VISUAL DISTURBANCES 07/14/2012 607.84 IMP OTENCE OF ORGANIC ORIGIN 07/14/2012 780.2 SYNC OPE AND COLLAPSE 07/14/2012 V65.42 COU NSELING - SMOKING CESSATION 07/14/2012 V70.0 ROUT INE GENERAL MEDICAL EXAMINATION AT A HEALTH CARE FACILITY 07/14/2012 368.8 OTHE R SPECIFIED VISUAL DISTURBANCES 07/14/2012 607.84 IMP OTENCE OF ORGANIC ORIGIN 07/14/2012 780.2 SYNC OPE AND COLLAPSE 07/14/2012 V65.42 COU NSELING - SMOKING CESSATION 07/14/2012 V70.0 ROUT INE GENERAL MEDICAL EXAMINATION AT A HEALTH CARE FACILITY 07/14/2012 368.8 OTHE R SPECIFIED VISUAL DISTURBANCES 07/14/2012 607.84 IMP OTENCE OF ORGANIC ORIGIN 07/14/2012 780.2 SYNC OPE AND COLLAPSE 07/14/2012 V65.42 COU NSELING - SMOKING CESSATION 07/14/2012 V70.0 ROUT INE GENERAL MEDICAL EXAMINATION AT A HEALTH CARE FACILITY 07/14/2012 ERNESTINE ANDREW MD 368. 8 OTHER SPECIFIED VISUAL DISTURBANCES 07/14/2012 ERNESTINE ANDREW MD 607. 84 IMPOTENCE OF ORGANIC ORIGIN 07/14/2012 ERNESTINE ANDREW MD 780. 2 SYNCOPE AND COLLAPSE 07/14/2012 ERNESTINE ANDREW MD V65. 42 COUNSELING - SMOKING CESSATION 07/14/2012 ERNESTINE ANDREW MD V70. 0 ROUTINE GENERAL MEDICAL EXAMINATION AT A HEALTH CARE FACILITY 07/14/2012 368.8 OTHE R SPECIFIED VISUAL DISTURBANCES 07/14/2012 607.84 IMP OTENCE OF ORGANIC ORIGIN 07/14/2012 780.2 SYNC OPE AND COLLAPSE 07/14/2012 V65.42 COU NSELING - SMOKING CESSATION 07/14/2012 V70.0 ROUT INE GENERAL MEDICAL EXAMINATION AT A HEALTH CARE FACILITY 07/14/2012 368.8 OTHE R SPECIFIED VISUAL DISTURBANCES 07/14/2012 607.84 IMP OTENCE OF ORGANIC ORIGIN 07/14/2012 780.2 SYNC OPE AND COLLAPSE 07/14/2012 V65.42 COU NSELING - SMOKING CESSATION 07/14/2012 V70.0 ROUT INE GENERAL MEDICAL EXAMINATION AT A HEALTH CARE FACILITY 07/14/2012 368.8 OTHE R SPECIFIED VISUAL DISTURBANCES 07/14/2012 607.84 IMP OTENCE OF ORGANIC ORIGIN 07/14/2012 780.2 SYNC OPE AND COLLAPSE 07/14/2012 V65.42 COU NSELING - SMOKING CESSATION 07/14/2012 V70.0 ROUT INE GENERAL MEDICAL EXAMINATION AT A HEALTH CARE FACILITY 07/14/2012 368.8 OTHE R SPECIFIED VISUAL DISTURBANCES 07/14/2012 607.84 IMP OTENCE OF ORGANIC ORIGIN 07/14/2012 780.2 SYNC OPE AND COLLAPSE 07/14/2012 V65.42 COU NSELING - SMOKING CESSATION 07/14/2012 V70.0 ROUT INE GENERAL MEDICAL EXAMINATION AT A HEALTH CARE FACILITY 07/14/2012 368.8 OTHE R SPECIFIED VISUAL DISTURBANCES 07/14/2012 607.84 IMP OTENCE OF ORGANIC ORIGIN 07/14/2012 780.2 SYNC OPE AND COLLAPSE 07/14/2012 V65.42 COU NSELING - SMOKING CESSATION 07/14/2012 V70.0 ROUT INE GENERAL MEDICAL EXAMINATION AT A HEALTH CARE FACILITY 07/14/2012 368.8 OTHE R SPECIFIED VISUAL DISTURBANCES 07/14/2012 607.84 IMP OTENCE OF ORGANIC ORIGIN 07/14/2012 780.2 SYNC OPE AND COLLAPSE 07/14/2012 V65.42 COU NSELING - SMOKING CESSATION 07/14/2012 V70.0 ROUT INE GENERAL MEDICAL EXAMINATION AT A HEALTH CARE FACILITY 07/14/2012 368.8 OTHE R SPECIFIED VISUAL DISTURBANCES 07/14/2012 607.84 IMP OTENCE OF ORGANIC ORIGIN 07/14/2012 780.2 SYNC OPE AND COLLAPSE 07/14/2012 V65.42 COU NSELING - SMOKING CESSATION 07/14/2012 V70.0 ROUT INE GENERAL MEDICAL EXAMINATION AT A HEALTH CARE FACILITY 07/14/2012 RENETTA CARDOZA APRN 36 8.8 OTHER SPECIFIED VISUAL DISTURBANCES 07/14/2012 RENETTA CARDOZA APRN 607.84 IMPOTENCE OF ORGANIC ORIGIN 07/14/2012 RENETTA CARDOZA APRN 78 0.2 SYNCOPE AND COLLAPSE 07/14/2012 RENETTA CARDOZA APRN V65.42 COUNSELING - SMOKING CESSATION 07/14/2012 RENETTA CARDOZA APRN V7 0.0 ROUTINE GENERAL MEDICAL EXAMINATION AT A HEALTH [...] HEALTH CARE FACILITY 07/14/2012 RENETTA CARDOZA APRN 36 8.8 OTHER SPECIFIED VISUAL DISTURBANCES 07/14/2012 RENETTA CARDOZA APRN 607.84 IMPOTENCE OF ORGANIC ORIGIN 07/14/2012 RENETTA CARDOZA APRN 78 0.2 SYNCOPE AND COLLAPSE 07/14/2012 RENETTA CARDOZA APRN V65.42 COUNSELING - SMOKING CESSATION 07/14/2012 RENETTA CARDOZA APRN V7 0.0 ROUTINE GENERAL MEDICAL EXAMINATION AT A HEALTH CARE FACILITY 07/14/2012 RENETTA CARDOZA APRN 36 8.8 OTHER SPECIFIED VISUAL DISTURBANCES 07/14/2012 RENETTA CARDOZA APRN 607.84 IMPOTENCE OF ORGANIC ORIGIN 07/14/2012 RENETTA CARDOZA APRN 78 0.2 SYNCOPE AND COLLAPSE 07/14/2012 RENETTA CARDOZA APRN V65.42 COUNSELING - SMOKING CESSATION 07/14/2012 RENETTA CARDOZA APRN V7 0.0 ROUTINE GENERAL MEDICAL EXAMINATION AT A HEALTH [...] HEALTH CARE FACILITY 07/14/2012 RENETTA CARDOZA APRN 36 8.8 OTHER SPECIFIED VISUAL DISTURBANCES 07/14/2012 RENETTA CARDOZA APRN 607.84 IMPOTENCE OF ORGANIC ORIGIN 07/14/2012 RENETTA CARDOZA APRN 78 0.2 SYNCOPE AND COLLAPSE 07/14/2012 RENETTA CARDOZA APRN V65.42 COUNSELING - SMOKING CESSATION 07/14/2012 RENETTA CARDOZA APRN V7 0.0 ROUTINE GENERAL MEDICAL EXAMINATION AT A HEALTH CARE FACILITY 07/14/2012 RENETTA CARDOZA APRN 36 8.8 OTHER SPECIFIED VISUAL DISTURBANCES 07/14/2012 RENETTA CARDOZA APRN 607.84 IMPOTENCE OF ORGANIC ORIGIN 07/14/2012 RENETTA CARDOZA APRN 78 0.2 SYNCOPE AND COLLAPSE 07/14/2012 RENETTA CARDOZA APRN V65.42 COUNSELING - SMOKING CESSATION 07/14/2012 RENETTA CARDOZA APRN V7 0.0 ROUTINE GENERAL MEDICAL EXAMINATION AT A HEALTH CARE FACILITY 07/14/2012 RENETTA CARDOZA APRN 36 8.8 OTHER SPECIFIED VISUAL DISTURBANCES 07/14/2012 RENETTA CARDOZA APRN 607.84 IMPOTENCE OF ORGANIC ORIGIN 07/14/2012 RENETTA CARDOZA APRN 78 0.2 SYNCOPE AND COLLAPSE 07/14/2012 RENETTA CARDOZA APRN V65.42 COUNSELING - SMOKING CESSATION 07/14/2012 RENETTA CARDOZA APRN V7 0.0 ROUTINE GENERAL MEDICAL EXAMINATION AT A HEALTH CARE FACILITY 07/14/2012 NANI MILLERLeland RENETTA Berry 36 8.8 OTHER SPECIFIED VISUAL DISTURBANCES 07/14/2012 RENETTA CARDOZA APRN 607.84 IMPOTENCE OF ORGANIC ORIGIN 07/14/2012 NANI MILLERNRENETTA 78 0.2 SYNCOPE AND COLLAPSE 07/14/2012 NANI FORRESTER RENETTA Berry V65.42 COUNSELING - SMOKING CESSATION 07/14/2012 RENETTA CARDOZA APRN V7 0.0 ROUTINE GENERAL MEDICAL EXAMINATION AT A HEALTH CARE FACILITY 07/14/2012 FRANK FINLEY APRN 368.8 OTHER SPECIFIED VISUAL DISTURBANCES 07/14/2012 FRANK FINLEY APRN S 607.84 IMPOTENCE OF ORGANIC ORIGIN 07/14/2012 FRANK FINLEY APRN S 780.2 SYNCOPE AND COLLAPSE 07/14/2012 FRANK FINLEY APRN S V65.42 COUNSELING - SMOKING CESSATION 07/14/2012 FRANK FINLEY APRN S V70.0 ROUTINE GENERAL MEDICAL EXAMINATION AT A [facility] 07/14/2012 BRANDEN BORJA DO 368.8 OTHER SPECIFIED VISUAL DISTURBANCES 07/14/2012 VICENTE BORJA DOA K 607.84 IMPOTENCE OF ORGANIC ORIGIN 07/14/2012 VICENTE BORJA DOA K 780.2 SYNCOPE AND COLLAPSE 07/14/2012 BRANDEN BORJA DO K V65.42 COUNSELING - SMOKING CESSATION 07/14/2012 VICENTE BORJA DOA K V70.0 ROUTINE GENERAL MEDICAL EXAMINATION AT A HEALTH CARE FACILITY 07/14/2012 JENNA LOVING MD 368.8 OTHER SPECIFIED VISUAL DISTURBANCES 07/14/2012 JENNA LOVING MD 607.8 4 IMPOTENCE OF ORGANIC ORIGIN 07/14/2012 JENNA LOVING MD 780.2 SYNCOPE AND COLLAPSE 07/14/2012 JENNA LOVING MD V65.4 2 COUNSELING - SMOKING CESSATION 07/14/2012 JENNA LOVING [...] HEALTH CARE FACILITY 07/14/2012 RENETTA CARDOZA APRN T 36 8.8 OTHER SPECIFIED VISUAL DISTURBANCES 07/14/2012 RENETTA CARDOZA APRN 607.84 IMPOTENCE OF ORGANIC ORIGIN 07/14/2012 RENETTA CARDOZA APRN 78 0.2 SYNCOPE AND COLLAPSE 07/14/2012 RENETTA CARDOZA APRN V65.42 COUNSELING - SMOKING CESSATION 07/14/2012 RENETTA CARDOZA APRN V7 0.0 ROUTINE GENERAL MEDICAL EXAMINATION AT A HEALTH [...] HEALTH CARE FACILITY 07/14/2012 RENETTA CARDOZA APRN T 36 8.8 OTHER SPECIFIED VISUAL DISTURBANCES 07/14/2012 NANI PHARMACY BENEFIT MANAGER, RENETTA T 607.84 IMPOTENCE OF ORGANIC ORIGIN 07/14/2012 RENETTA CARDOZA APRN 78 0.2 SYNCOPE AND COLLAPSE 07/14/2012 RENETTA CARDOZA APRN V65.42 COUNSELING - SMOKING CESSATION 07/14/2012 RENETTA CARDOZA APRN V7 0.0 ROUTINE GENERAL MEDICAL EXAMINATION AT A HEALTH CARE FACILITY 07/14/2012 RENETTA CARDOZA APRN 36 8.8 OTHER SPECIFIED VISUAL DISTURBANCES 07/14/2012 RENETTA CARDOZA APRN 607.84 IMPOTENCE OF ORGANIC ORIGIN 07/14/2012 RENETTA CARDOZA APRN 78 0.2 SYNCOPE AND COLLAPSE 07/14/2012 RENETTA CARDOZA APRN V65.42 COUNSELING - SMOKING CESSATION 07/14/2012 RENETTA CARDOZA APRN V7 0.0 ROUTINE GENERAL MEDICAL EXAMINATION AT A HEALTH CARE FACILITY 07/14/2012 JENNA LOVING MD 368.8 OTHER SPECIFIED VISUAL DISTURBANCES 07/14/2012 JENNA LOVING MD 607.8 4 IMPOTENCE OF ORGANIC ORIGIN 07/14/2012 JENNA LOVING MD 780.2 SYNCOPE AND COLLAPSE 07/14/2012 JENNA LOVING MD V65.4 2 COUNSELING - SMOKING CESSATION 07/14/2012 JENNA LOVING MD V70.0 ROUTINE GENERAL MEDICAL EXAMINATION AT A HEALTH CARE FACILITY 07/14/2012 RENETTA CARDOZA APRN 36 8.8 OTHER SPECIFIED VISUAL DISTURBANCES 07/14/2012 RENETTA CARDOZA APRN 607.84 IMPOTENCE OF ORGANIC ORIGIN 07/14/2012 RENETTA CARDOZA APRN 78 0.2 SYNCOPE AND COLLAPSE 07/14/2012 RENETTA CARDOZA APRN V65.42 COUNSELING - SMOKING CESSATION 07/14/2012 RENETTA CARDOZA APRN V7 0.0 ROUTINE GENERAL MEDICAL EXAMINATION AT A HEALTH CARE FACILITY 07/14/2012 RENETTA CARDOZA APRN 36 8.8 OTHER SPECIFIED VISUAL DISTURBANCES 07/14/2012 RENETTA CARDOZA APRN 607.84 IMPOTENCE OF ORGANIC ORIGIN 07/14/2012 RENETTA CARDOZA APRN 78 0.2 SYNCOPE AND COLLAPSE 07/14/2012 RENETTA CARDOZA APRN V65.42 COUNSELING - SMOKING CESSATION 07/14/2012 RENETTA CARDOZA APRN V7 0.0 ROUTINE GENERAL MEDICAL EXAMINATION AT A HEALTH CARE FACILITY 08/13/2012 RENETTA CARDOZA APRN 276.51 DEHYDRATION 08/13/2012 RENETTA CARDOZA APRN 790.29 OTHER ABNORMAL GLUCOSE 08/13/2012 276.51 DEH YDRATION 08/13/2012 790.29 OTH ER ABNORMAL GLUCOSE 08/13/2012 276.51 DEH YDRATION 08/13/2012 790.29 OTH ER ABNORMAL GLUCOSE 08/13/2012 276.51 DEH YDRATION 08/13/2012 790.29 OTH ER ABNORMAL GLUCOSE 08/13/2012 ERNESTINE ANDREW MD 276. 51 DEHYDRATION 08/13/2012 ERNESTINE ANDREW MD 790. 29 OTHER ABNORMAL GLUCOSE 08/13/2012 276.51 DEH YDRATION 08/13/2012 790.29 OTH ER ABNORMAL GLUCOSE 08/13/2012 276.51 DEH YDRATION 08/13/2012 790.29 OTH ER ABNORMAL GLUCOSE 08/13/2012 276.51 DEH YDRATION 08/13/2012 790.29 OTH ER ABNORMAL GLUCOSE 08/13/2012 276.51 DEH YDRATION 08/13/2012 790.29 OTH ER ABNORMAL GLUCOSE 08/13/2012 276.51 DEH YDRATION 08/13/2012 790.29 OTH ER ABNORMAL GLUCOSE 08/13/2012 276.51 DEH YDRATION 08/13/2012 790.29 OTH ER ABNORMAL GLUCOSE 08/13/2012 276.51 DEH YDRATION 08/13/2012 790.29 OTH ER ABNORMAL GLUCOSE 08/13/2012 RENETTA CARDOZA APRN 276.51 [...] BRANDEN K 790.29 OTHER ABNORMAL GLUCOSE 08/13/2012 NANI MILLERLeland RENETTA T 276.51 DEHYDRATION 08/13/2012 NANI MILLERLeland RENETTA T 790.29 OTHER ABNORMAL GLUCOSE 08/13/2012 NANI MILLERLeland RENETTA T 276.51 DEHYDRATION 08/13/2012 NANI FORRESTER RENETTA T 790.29 OTHER ABNORMAL GLUCOSE 08/13/2012 NANI MILLERLeland RENETTA T 276.51 DEHYDRATION 08/13/2012 NANI MILLERLeland RENETTA T 790.29 OTHER ABNORMAL GLUCOSE 08/13/2012 NANI MILLERLeland RENETTA T 276.51 DEHYDRATION 08/13/2012 NANI MILLERLeland RENETTA T 790.29 OTHER ABNORMAL GLUCOSE 08/13/2012 TUSHAR PHARMACY BENEFIT MANAGER, FRANK S 276.51 DEHYDRATION 08/13/2012 TUSHAR PHARMACY BENEFIT MANAGER, FRANK S 790.29 OTHER ABNORMAL GLUCOSE 08/13/2012 BORJA DO, BRANDEN K 276.51 DEHYDRATION 08/13/2012 BORJA DO, BRANDEN K 790.29 OTHER ABNORMAL GLUCOSE 08/13/2012 JENNA LOVING MD 276.5 1 DEHYDRATION 08/13/2012 JENNA LOVING MD 790.2 9 OTHER ABNORMAL GLUCOSE 08/13/2012 SHAKA ERAZO, ALI 276.51 DEHYDRATION 08/13/2012 SHAKA ERAZO ALI 790.29 OTHER ABNORMAL GLUCOSE 08/13/2012 SHAKA ERAZO, ALI 276.51 DEHYDRATION 08/13/2012 SHAKA ERAZO, ALI 790.29 OTHER ABNORMAL GLUCOSE 08/13/2012 NANI MILLERLeland RENETTA T 276.51 DEHYDRATION 08/13/2012 NANI PHARMACY BENEFIT MANAGERRENETTA Ha T 790.29 OTHER ABNORMAL GLUCOSE 08/13/2012 SHAKA ERAZO, ALI 276.51 DEHYDRATION 08/13/2012 SHAKA ERAZO, ALI 790.29 OTHER ABNORMAL GLUCOSE 08/13/2012 SHAKA ERAZO ALI 276.51 DEHYDRATION 08/13/2012 SHAKA ERAZO ALI 790.29 OTHER ABNORMAL GLUCOSE 08/13/2012 NANI PHARMACY BENEFIT MANAGER, RENETTA T 276.51 DEHYDRATION 08/13/2012 NANI PHARMACY BENEFIT MANAGERRENETTA Ha T 790.29 OTHER ABNORMAL GLUCOSE 08/13/2012 NANI MILLERLeland RENETTA T 276.51 DEHYDRATION 08/13/2012 NANI PHARMACY BENEFIT MANAGERRENETTA Ha T 790.29 OTHER ABNORMAL GLUCOSE 08/13/2012 JENNA LOVING MD 276.5 1 DEHYDRATION 08/13/2012 JENNA LOVING MD 790.2 9 OTHER ABNORMAL GLUCOSE 08/13/2012 RENETTA CARDOZA APRN 276.51 DEHYDRATION 08/13/2012 RENETTA CARDOZA APRN 790.29 OTHER ABNORMAL GLUCOSE 08/13/2012 RENETTA CARDOZA APRN 276.51 DEHYDRATION 08/13/2012 RENETTA CARDOZA APRN 790.29 OTHER ABNORMAL GLUCOSE 08/21/2012 Ot 250.00 CHARMAINE B KE[place] WO COMPL, TYPE II OR UNSPEC TY 08/21/2012 Ot 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 90 SEIZURE DISORDER 08/22/2012 345.90 SEI ZURE DISORDER 08/22/2012 345.90 SEI ZURE DISORDER 08/22/2012 345.90 SEI ZURE DISORDER 08/22/2012 345.90 SEI ZURE DISORDER 08/22/2012 345.90 SEI ZURE DISORDER 08/22/2012 345.90 SEI ZURE DISORDER 08/22/2012 345.90 SEI ZURE DISORDER 08/22/2012 RENETTA CARDOZA APRN 345.90 SEIZURE [...] FINLEY APRN 345.90 SEIZURE DISORDER 08/22/2012 BORJA DO BRANDEN K 345.90 SEIZURE DISORDER 08/22/2012 JENNA LOVING MD 345.9 0 SEIZURE DISORDER 08/22/2012 SHAKA ERAZO, ALI 345.90 SEIZURE DISORDER 08/22/2012 KAMRYN MATT MD 345.90 SEIZURE DISORDER 08/22/2012 RNEETTA CARDOZA APRN 345.90 SEIZURE DISORDER 08/22/2012 KAMRYN MATT MD 345.90 SEIZURE DISORDER 08/22/2012 KAMRYN MATT MD 345.90 SEIZURE DISORDER 08/22/2012 RENETTA CARDOZA APRN 345.90 SEIZURE DISORDER 08/22/2012 RENETTA CARDOZA APRN 345.90 SEIZURE DISORDER 08/22/2012 JENNA LOVING MD 345.9 0 SEIZURE DISORDER 08/22/2012 RENETTA CARDOZA APRN 345.90 SEIZURE DISORDER 08/22/2012 RENETTA CARDOZA APRN 345.90 SEIZURE DISORDER 09/21/2012 461.9 SINU SITIS ACUTE 09/21/2012 466.0 BRON CHITIS, ACUTE 09/21/2012 461.9 SINU SITIS ACUTE 09/21/2012 466.0 BRON CHITIS, ACUTE 09/21/2012 461.9 SINU SITIS ACUTE 09/21/2012 466.0 BRON CHITIS, ACUTE 09/21/2012 ERNESTINE ANDREW MD 461. 9 SINUSITIS ACUTE 09/21/2012 ERNESTINE ANDREW MD 466. 0 BRONCHITIS, ACUTE 09/21/2012 461.9 SINU SITIS ACUTE 09/21/2012 466.0 BRON CHITIS, ACUTE 09/21/2012 461.9 SINU SITIS ACUTE 09/21/2012 466.0 BRON CHITIS, ACUTE 09/21/2012 461.9 SINU SITIS ACUTE 09/21/2012 466.0 BRON CHITIS, ACUTE 09/21/2012 461.9 SINU SITIS ACUTE 09/21/2012 466.0 BRON CHITIS, ACUTE 09/21/2012 461.9 SINU SITIS ACUTE 09/21/2012 466.0 BRON CHITIS, ACUTE 09/21/2012 461.9 SINU SITIS ACUTE 09/21/2012 466.0 BRON CHITIS, ACUTE 09/21/2012 461.9 SINU SITIS ACUTE 09/21/2012 466.0 BRON CHITIS, ACUTE 09/21/2012 RENETTA CARDOZA APRN 46 1.9 SINUSITIS ACUTE 09/21/2012 NANI PHARMACY BENEFIT MANAGER, RENETTA T 46 6.0 BRONCHITIS, ACUTE 09/21/2012 BORJA DO, BRANDEN K 461.9 SINUSITIS ACUTE 09/21/2012 BORJA DO, BRANDEN K 466.0 BRONCHITIS, ACUTE 09/21/2012 RENETTA CARDOZA APRN T 46 1.9 SINUSITIS ACUTE 09/21/2012 RENETTA CARDOZA APRN T 46 6.0 BRONCHITIS, ACUTE 09/21/2012 RENETTA CARDOZA APRN T 46 1.9 SINUSITIS ACUTE 09/21/2012 RENETTA CARDOZA APRN T 46 6.0 BRONCHITIS, ACUTE 09/21/2012 BORJA DO, BRANDEN K 461.9 SINUSITIS ACUTE 09/21/2012 BORJA DO, BRANDEN K 466.0 BRONCHITIS, ACUTE 09/21/2012 BORJA DO, BRANDEN K 461.9 SINUSITIS ACUTE 09/21/2012 BORJA DO, BRANDEN K 466.0 BRONCHITIS, ACUTE 09/21/2012 RENETTA CARDOZA APRN T 46 1.9 SINUSITIS ACUTE 09/21/2012 RENETTA CARDOZA APRN T 46 6.0 BRONCHITIS, ACUTE 09/21/2012 RENETTA CARDOZA APRN T 46 1.9 SINUSITIS ACUTE 09/21/2012 RENETTA CARDOZA APRN T 46 6.0 BRONCHITIS, ACUTE 09/21/2012 RENETTA CARDOZA APRN T 46 1.9 SINUSITIS ACUTE 09/21/2012 RENETTA CARDOZA APRN T 46 6.0 BRONCHITIS, ACUTE 09/21/2012 RENETTA CARDOZA APRN T 46 1.9 SINUSITIS ACUTE 09/21/2012 RENETTA CARDOZA APRN T 46 6.0 BRONCHITIS, ACUTE 09/21/2012 TUSHAR FORRESTER FRANK S 461.9 SINUSITIS ACUTE 09/21/2012 TUSHAR FORRESTER FRANK S 466.0 BRONCHITIS, ACUTE 09/21/2012 BORJA DO, BRANDEN K 461.9 SINUSITIS ACUTE 09/21/2012 BORJA DO, BRANDEN K 466.0 BRONCHITIS, ACUTE 09/21/2012 JENNA LOVING MD 461.9 SINUSITIS ACUTE 09/21/2012 JENNA LOVING MD 466.0 BRONCHITIS, ACUTE 09/21/2012 SHAKA ERAZO, KAMRYN 461.9 SINUSITIS ACUTE 09/21/2012 SHAKA ERAZO, ALI 466.0 BRONCHITIS, ACUTE 09/21/2012 SHAKA ERAZO, KAMRYN 461.9 SINUSITIS ACUTE 09/21/2012 SHAKA ERAZO, ALI 466.0 BRONCHITIS, ACUTE 09/21/2012 RENETTA CARDOZA APRN T 46 1.9 SINUSITIS ACUTE 09/21/2012 RENETTA CARDOZA APRN T 46 6.0 BRONCHITIS, ACUTE 09/21/2012 SHAKA ERAZO, ALI 461.9 SINUSITIS ACUTE 09/21/2012 SHAKA ERAZO, ALI 466.0 BRONCHITIS, ACUTE 09/21/2012 SHAKA ERAZO, ALI 461.9 SINUSITIS ACUTE 09/21/2012 SHAKA ERAZO, ALI 466.0 BRONCHITIS, ACUTE 09/21/2012 RENETTA CARDOZA APRN T 46 1.9 SINUSITIS ACUTE 09/21/2012 RENETTA CARDOZA APRN T 46 6.0 BRONCHITIS, ACUTE 09/21/2012 RENETTA CARDOZA APRN T 46 1.9 SINUSITIS ACUTE 09/21/2012 RENETTA CARDOZA APRN T 46 6.0 BRONCHITIS, ACUTE 09/21/2012 JENNA LOVING MD 461.9 SINUSITIS ACUTE 09/21/2012 JENNA LOVING MD 466.0 BRONCHITIS, ACUTE 09/21/2012 RENETTA CARDOZA APRN T 46 1.9 SINUSITIS ACUTE 09/21/2012 RENETTA CARDOZA APRN T 46 6.0 BRONCHITIS, ACUTE 09/21/2012 RENETTA CARDOZA APRN T 46 1.9 SINUSITIS ACUTE 09/21/2012 RENETTA CARDOZA APRN T 46 6.0 BRONCHITIS, ACUTE 10/31/2012 496 COPD 10/31/2012 496 COPD 10/31/2012 ERNESTINE ANDREW MD 496 COPD 10/31/2012 496 COPD 10/31/2012 496 COPD 10/31/2012 496 COPD 10/31/2012 496 COPD 10/31/2012 496 COPD 10/31/2012 496 COPD 10/31/2012 496 COPD 10/31/2012 RENETTA CARDOZA APRN 49 6 COPD 10/31/2012 BORJA DO, BRANDEN K 496 COPD 10/31/2012 RENETTA CARDOZA APRN 49 6 COPD 10/31/2012 RENETTA CARDOZA APRN 49 6 COPD 10/31/2012 BORJA DO, BRANDEN K 496 COPD 10/31/2012 BORJA DO, BRANDEN K 496 COPD 10/31/2012 RENETTA CARDOZA APRN 49 6 CHRONIC OBSTRUCTIVE PULMONARY DISEASE 10/31/2012 RENETTA CARDOZA APRN 49 6 CHRONIC OBSTRUCTIVE PULMONARY DISEASE 10/31/2012 RENETTA CARDOZA APRN 49 6 CHRONIC OBSTRUCTIVE PULMONARY DISEASE 10/31/2012 RENETTA CARDOZA APRN 49 6 CHRONIC OBSTRUCTIVE PULMONARY DISEASE 10/31/2012 FRANK FINLEY APRN 496 CHRONIC OBSTRUCTIVE PULMONARY DISEASE 10/31/2012 JONH MYRICK BRANDEN K 496 CHRONIC OBSTRUCTIVE PULMONARY DISEASE 10/31/2012 FABIENNE ERAZO, JENNA 496 CHRONIC OBSTRUCTIVE PULMONARY DISEASE 10/31/2012 SHAKA ERAZO, ALI 496 CHRONIC OBSTRUCTIVE PULMONARY DISEASE 10/31/2012 SHAKA ERAZO, ALI 496 CHRONIC OBSTRUCTIVE PULMONARY DISEASE 10/31/2012 RENETTA CARDOZA APRN 49 6 CHRONIC OBSTRUCTIVE PULMONARY DISEASE 10/31/2012 SHAKA ERAZO, ALI 496 CHRONIC OBSTRUCTIVE PULMONARY DISEASE 10/31/2012 SHAKA ERAZO, ALI 496 CHRONIC OBSTRUCTIVE PULMONARY DISEASE 10/31/2012 RENETTA CARDOZA APRN 49 6 CHRONIC OBSTRUCTIVE PULMONARY DISEASE 10/31/2012 RENETTA CARDOZA APRN 49 6 CHRONIC OBSTRUCTIVE PULMONARY DISEASE 10/31/2012 FABIENNE ERAZO, JENNA 496 CHRONIC OBSTRUCTIVE PULMONARY DISEASE 10/31/2012 RENETTA CARDOZA APRN 49 6 CHRONIC OBSTRUCTIVE PULMONARY DISEASE 10/31/2012 RENETTA CARDOZA APRN 49 6 CHRONIC OBSTRUCTIVE PULMONARY DISEASE 01/23/2013 486 PNEUMO TIEN UNSPECIFIED 01/23/2013 486 PNEUMO TIEN UNSPECIFIED 01/23/2013 486 PNEUMO TIEN UNSPECIFIED 01/23/2013 486 PNEUMO TIEN UNSPECIFIED 01/23/2013 486 PNEUMO TIEN UNSPECIFIED 01/23/2013 486 PNEUMO TIEN UNSPECIFIED 01/23/2013 486 PNEUMO TIEN UNSPECIFIED 01/23/2013 RENETTA CARDOZA APRN 48 6 PNEUMONIA UNSPECIFIED 01/23/2013 JONH DO BRANDEN K 486 PNEUMONIA UNSPECIFIED 01/23/2013 RENETTA CARDOZA APRN 48 6 PNEUMONIA UNSPECIFIED 01/23/2013 RENETTA CARDOZA APRN 48 6 PNEUMONIA UNSPECIFIED 01/23/2013 BORJA DO, BRANDEN K 486 PNEUMONIA UNSPECIFIED 01/23/2013 BORJA DO, BRANDEN K 486 PNEUMONIA UNSPECIFIED 01/23/2013 RENETTA CARDOZA APRN 48 6 PNEUMONIA UNSPECIFIED 01/23/2013 RENETTA CARDOZA APRN 48 6 PNEUMONIA UNSPECIFIED 01/23/2013 RENETTA CARDOZA APRN 48 6 PNEUMONIA UNSPECIFIED 01/23/2013 RENETTA CARDOZA APRN 48 6 PNEUMONIA UNSPECIFIED 01/23/2013 FRANK FINLEY APRN 486 PNEUMONIA UNSPECIFIED 01/23/2013 JONH MYRICK, BRANDEN K 486 PNEUMONIA UNSPECIFIED 01/23/2013 FABIENNE ERAZO, JENNA 486 PNEUMONIA UNSPECIFIED 01/23/2013 SHAKA ERAZO, ALI 486 PNEUMONIA UNSPECIFIED 01/23/2013 SHAKA ERAZO, KAMRYN 486 PNEUMONIA UNSPECIFIED 01/23/2013 RENETTA CARDOZA APRN T 48 6 PNEUMONIA UNSPECIFIED 01/23/2013 SHAKA ERAZO, ALI 486 PNEUMONIA UNSPECIFIED 01/23/2013 SHAKA ERAZO, KAMRYN 486 PNEUMONIA UNSPECIFIED 01/23/2013 RENETTA CARDOZA APRN T 48 6 PNEUMONIA UNSPECIFIED 01/23/2013 NANI FORRESTER RENETTA T 48 6 PNEUMONIA UNSPECIFIED 01/23/2013 FABIENNE ERAZO, JENNA 486 PNEUMONIA UNSPECIFIED 01/23/2013 RENETTA CARDOZA APRN 48 6 PNEUMONIA UNSPECIFIED 01/23/2013 RENETTA CARDOZA APRN T 48 6 PNEUMONIA UNSPECIFIED 03/27/2013 780.57 SLE EP APNEA 03/27/2013 780.57 SLE EP APNEA 03/27/2013 780.57 SLE EP APNEA 03/27/2013 780.57 SLE EP APNEA 03/27/2013 780.57 SLE EP APNEA 03/27/2013 NANI FORRESTER RENETTA T 780.57 SLEEP APNEA 03/27/2013 JONH MYRICK, BRANDEN K 780.57 SLEEP APNEA 03/27/2013 RENETTA CARDOZA APRN T 780.57 SLEEP APNEA 03/27/2013 NANI FORRESTER RENETTA T 780.57 SLEEP APNEA 03/27/2013 BORJA DO, BRANDEN K 780.57 SLEEP APNEA 03/27/2013 BORJA DO, BRANDEN K 780.57 SLEEP APNEA 03/27/2013 RENETTA CARDOZA APRN T 780.57 SLEEP APNEA 03/27/2013 RENETTA CARDOZA APRN T 780.57 SLEEP APNEA 03/27/2013 NANI FORRESTER RENETTA T 780.57 SLEEP APNEA 03/27/2013 NANI FORRESTER RENETTA T 780.57 SLEEP APNEA 03/27/2013 FRANK FINLEY APRN 780.57 SLEEP APNEA 03/27/2013 BORJA , BRANDEN K 780.57 SLEEP APNEA 03/27/2013 JENNA LOVING MD 780.5 7 SLEEP APNEA 03/27/2013 SHAKA ERAZO ALI 780.57 SLEEP APNEA 03/27/2013 KAMRYN MATT MD 780.57 SLEEP APNEA 03/27/2013 RENETTA CARDOZA APRN 780.57 SLEEP APNEA 03/27/2013 KAMRYN MATT MD 780.57 SLEEP APNEA 03/27/2013 KAMRYN MATT MD 780.57 SLEEP APNEA 03/27/2013 RENETTA CARDOZA APRN 780.57 SLEEP APNEA 03/27/2013 RENETTA CARDOZA APRN 780.57 SLEEP APNEA 03/27/2013 JENNA LOVING MD 780.5 7 SLEEP APNEA 03/27/2013 RENETTA CARDOZA APRN 780.57 SLEEP APNEA 03/27/2013 RENETTA CARDOZA APRN 780.57 SLEEP APNEA 05/04/2013 RENETTA CARDOZA WEIGHT GUESSER Ot 327.23 OBSTRUCTIVE SLEEP APNEA (ADULT) (PEDIATR 05/27/2013 216.9 MOLE /NEVUS - SITE UNSPECIFIED 05/27/2013 216.9 MOLE /NEVUS - SITE UNSPECIFIED 05/27/2013 216.9 MOLE /NEVUS - SITE UNSPECIFIED 05/27/2013 RENETTA CARDOZA APRN 21 6.9 MOLE/NEVUS - SITE UNSPECIFIED 05/27/2013 BORJA DO, BRANDEN K 216.9 MOLE/NEVUS - SITE UNSPECIFIED 05/27/2013 RENETTA CARDOZA APRN T 21 6.9 MOLE/NEVUS - SITE UNSPECIFIED 05/27/2013 RENETTA CARDOZA APRN 21 6.9 MOLE/NEVUS - SITE UNSPECIFIED 05/27/2013 BORJA DO, BRANDEN K 216.9 MOLE/NEVUS - SITE UNSPECIFIED 05/27/2013 BORJA DO, BRANDEN K 216.9 MOLE/NEVUS - SITE UNSPECIFIED 05/27/2013 RENETTA CARDOZA APRN 21 6.9 MOLE/NEVUS - SITE UNSPECIFIED 05/27/2013 RENETTA CARDOZA APRN 21 6.9 MOLE/NEVUS - SITE UNSPECIFIED 05/27/2013 RENETTA CARDOZA APRN T 21 6.9 MOLE/NEVUS - SITE UNSPECIFIED 05/27/2013 RENETTA CARDOZA APRN 21 6.9 MOLE/NEVUS - SITE UNSPECIFIED 05/27/2013 TUSHAR FORRESTER FRANK S 216.9 MOLE/NEVUS - SITE UNSPECIFIED 05/27/2013 BORJA DO, BRANDEN K 216.9 MOLE/NEVUS - SITE UNSPECIFIED 05/27/2013 JENNA LOVING MD 216.9 MOLE/NEVUS - SITE UNSPECIFIED 05/27/2013 KAMRYN MATT MD 216.9 MOLE/NEVUS - SITE UNSPECIFIED 05/27/2013 SHAKA MD, ALI 216.9 MOLE/NEVUS - SITE UNSPECIFIED 05/27/2013 RENETTA CARDOZA APRN T 21 6.9 MOLE/NEVUS - SITE UNSPECIFIED 05/27/2013 SHAKA ERAZO, KAMRYN 216.9 MOLE/NEVUS - SITE UNSPECIFIED 05/27/2013 SHAKA ERAZO, KAMRYN 216.9 MOLE/NEVUS - SITE UNSPECIFIED 05/27/2013 RENETTA CARDOZA APRN T 21 6.9 MOLE/NEVUS - SITE UNSPECIFIED 05/27/2013 RENETTA CARDOZA APRN T 21 6.9 MOLE/NEVUS - SITE UNSPECIFIED 05/27/2013 FABIENNE ERAZO, JENNA 216.9 MOLE/NEVUS - SITE UNSPECIFIED 05/27/2013 RENETTA CARDOZA APRN T 21 6.9 MOLE/NEVUS - SITE UNSPECIFIED 05/27/2013 RENETTA CARDOZA APRN T 21 6.9 MOLE/NEVUS - SITE UNSPECIFIED 07/08/2013 NIKHIL ERAZO, EFRAIN A Ot 784. 0 HEADACHE 07/10/2013 724.2 BACK PAIN, LOWER 07/10/2013 784.0 HEADACHE 07/10/2013 RENETTA CARDOZA APRN T 72 4.2 BACK PAIN, LOWER 07/10/2013 RENETTA CARDOZA APRN T 78 4.0 HEADACHE 07/10/2013 BORJA DO, BRANDEN K 724.2 BACK PAIN, LOWER 07/10/2013 BORJA DO, BRANDEN K 784.0 HEADACHE 07/10/2013 RENETTA CARDOZA APRN T 72 4.2 BACK PAIN, LOWER 07/10/2013 RENETTA CARDOZA APRN T 78 4.0 HEADACHE 07/10/2013 RENETTA CARDOZA APRN T 72 4.2 BACK PAIN, LOWER 07/10/2013 NANI FORRESTER RENETTA T 78 4.0 HEADACHE 07/10/2013 BORJA DO, BRANDEN K 724.2 BACK PAIN, LOWER 07/10/2013 BORJA DO, BRANDEN K 784.0 HEADACHE 07/10/2013 BORJA DO, BRANDEN K 724.2 BACK PAIN, LOWER 07/10/2013 BORJA DO, BRANDEN K 784.0 HEADACHE 07/10/2013 RENETTA CARDOZA APRN T 72 4.2 BACK PAIN, LOWER 07/10/2013 RENETTA CARDOZA APRN T 78 4.0 HEADACHE 07/10/2013 RENETTA CARDOZA APRN T 72 4.2 BACK PAIN, LOWER 07/10/2013 NANI FORRESTER, RENETTA T 78 4.0 HEADACHE 07/10/2013 NANI FORRESTER, RENETTA T 72 4.2 BACK PAIN, LOWER 07/10/2013 NANI FORRESTER, RENETTA T 78 4.0 HEADACHE 07/10/2013 NANI FORRESTER, RENETTA T 72 4.2 BACK PAIN, LOWER 07/10/2013 NANI FORRESTER, RENETTA T 78 4.0 HEADACHE 07/10/2013 TUSH[employer] PHARMAC[employer] BENEFIT MANAGER, FRANK S 724.2 BACK PAIN, LOWER 07/10/2013 TUSHAR PHARMACY BENEFIT MANAGER, FRANK S 784.0 HEADACHE 07/10/2013 BORJA DO, BRANDEN K 724.2 BACK PAIN, LOWER 07/10/2013 BORJA DO, BRANDEN K 784.0 HEADACHE 07/10/2013 JENNA LOVING MD 724.2 BACK PAIN, LOWER 07/10/2013 JENNA LOVING MD 784.0 HEADACHE 07/10/2013 SHAKA ERAZO, KAMRYN 724.2 BACK PAIN, LOWER 07/10/2013 SHAKA ERAZO, ALI 784.0 HEADACHE 07/10/2013 SHAKA ERAZO, ALI 724.2 BACK PAIN, LOWER 07/10/2013 SHAKA ERAZO, ALI 784.0 HEADACHE 07/10/2013 NANI FORRESTER RENETTA T 72 4.2 BACK PAIN, LOWER 07/10/2013 NANI FORRESTER, RENETTA T 78 4.0 HEADACHE 07/10/2013 SHAKA ERAZO, ALI 724.2 BACK PAIN, LOWER 07/10/2013 SHAKA ERAZO, ALI 784.0 HEADACHE 07/10/2013 SHAKA ERAZO, ALI 724.2 BACK PAIN, LOWER 07/10/2013 SHAKA ERAZO, ALI 784.0 HEADACHE 07/10/2013 NANI FORRESTER RENETTA T 72 4.2 BACK PAIN, LOWER 07/10/2013 NANI FORRESTER, RENETTA T 78 4.0 HEADACHE 07/10/2013 RENETTA CARDOZA APRN T 72 4.2 BACK PAIN, LOWER 07/10/2013 NANI FORRESTER, RENETTA T 78 4.0 HEADACHE 07/10/2013 JENNA LOVING MD 724.2 BACK PAIN, LOWER 07/10/2013 JENNA LOVING MD 784.0 HEADACHE 07/10/2013 RENETTA CARDOZA APRN T 72 4.2 BACK PAIN, LOWER 07/10/2013 NANI FORRESTER RENETTA T 78 4.0 HEADACHE 07/10/2013 RENETTA CARDOZA APRN T 72 4.2 BACK PAIN, LOWER 07/10/2013 NANI FORRESTER, RENETTA T 78 4.0 HEADACHE 07/31/2013 NANI FORRESTER, RENETTA T 786.50 [...] pain or discomfort 07/31/2013 FRANK FINLEY APRN S 786.50 chest pain or discomfort 07/31/2013 BORJA DO, BRANDEN K 786.50 chest pain or discomfort 07/31/2013 JENNA LOVING MD 786.5 0 chest pain or discomfort 07/31/2013 KAMRYN MATT [...] pain or discomfort 07/31/2013 JENNA LOVING MD 786.5 0 chest pain or discomfort 07/31/2013 NANI FORRESTER RENETTA T 786.50 chest pain or discomfort 07/31/2013 NANI FORRESTER RENETTA T 786.50 chest pain or discomfort 09/18/2013 BORJA DO, BRANDEN K 401.0 HYPERTENSION MALIGNANT ESSENTIAL 09/18/2013 RENETTA CARDOZA APRN T 40 1.0 HYPERTENSION MALIGNANT ESSENTIAL 09/18/2013 NANI FORRESTER RENETTA T 40 1.0 HYPERTENSION MALIGNANT ESSENTIAL 09/18/2013 BORJA DO, BRANDEN K 401.0 HYPERTENSION MALIGNANT ESSENTIAL 09/18/2013 BORJA DO, BRANDEN K 401.0 HYPERTENSION MALIGNANT ESSENTIAL 09/18/2013 RENETTA CARDOZA APRN T 40 1.0 HYPERTENSION MALIGNANT ESSENTIAL 09/18/2013 RENETTA CARDOZA APRN T 40 1.0 HYPERTENSION MALIGNANT ESSENTIAL 09/18/2013 RENETTA CARDOZA APRN T 40 1.0 HYPERTENSION MALIGNANT ESSENTIAL 09/18/2013 RENETTA CARDOZA APRN T 40 1.0 HYPERTENSION MALIGNANT ESSENTIAL 09/18/2013 FRANK FINLEY APRN 401.0 HYPERTENSION MALIGNANT ESSENTIAL 09/18/2013 BORJA DO, BRANDEN K 401.0 HYPERTENSION MALIGNANT ESSENTIAL 09/18/2013 JENNA LOVING MD 401.0 HYPERTENSION MALIGNANT ESSENTIAL 09/18/2013 KAMRYN MATT MD 401.0 HYPERTENSION MALIGNANT ESSENTIAL 09/18/2013 KAMRYN MATT MD 401.0 HYPERTENSION MALIGNANT ESSENTIAL 09/18/2013 RENETTA CARDOZA APRN T 40 1.0 HYPERTENSION MALIGNANT ESSENTIAL 09/18/2013 KAMRYN MATT MD 401.0 HYPERTENSION MALIGNANT ESSENTIAL 09/18/2013 KAMRYN MATT MD 401.0 HYPERTENSION MALIGNANT ESSENTIAL 09/18/2013 RENETTA CARDOZA APRN T 40 1.0 HYPERTENSION MALIGNANT ESSENTIAL 09/18/2013 RENETTA CARDOZA APRN T 40 1.0 HYPERTENSION MALIGNANT ESSENTIAL 09/18/2013 JENNA LOVING MD 401.0 HYPERTENSION MALIGNANT ESSENTIAL 09/18/2013 RENETTA CARDOZA APRN T 40 1.0 HYPERTENSION MALIGNANT ESSENTIAL 09/18/2013 RENETTA CARDOZA APRN T 40 1.0 HYPERTENSION MALIGNANT ESSENTIAL 10/01/2013 KAMRYN MATT MD, FACC FACP CCDS Ot 272.1 PURE HYPERGLYCERIDEMIA 10/01/2013 KAMRYN MATT MD, FACC FACP CCDS Ot 305.1 TOBACCO USE DISORDER 10/01/2013 KAMRYN MATT MD, FACC FACP CCDS Ot 345.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 10/01/2013 KAMRYN MATT MD, FACC FACP CCDS Ot 401.9 HYPERTENSION NOS 10/01/2013 KAMRYN MATT MD, FACC FACP CCDS Ot 414.01 CORONARY ATHEROSCLEROSIS OF [place] BAND CORON 10/01/2013 KAMRYN MATT MD, FACC FACP CCDS Ot 496 CHR AIRWAY OBSTRUCT NEC 10/01/2013 KAMRYN MATT MD, FACC FACP CCDS Ot 780.57 UNSPECIFIED SLEEP APNEA 10/01/2013 SHAKA ERAOZ [facility], KAMRYN CALVO CCDS Ot 786.59 CHEST PAIN NEC 10/01/2013 SHAKA ERAZO [facility], KAMRYN REES CCDS Ot V17.3 FAM HX-ISCHEM HEART DIS 10/01/2013 SHAKA ERAZO [facility], KAMRYN CALVO CCDS Ot V58.69 OT MED,LT,CURRENT USE 10/21/2013 RENETTA CARDOZA APRN V7 4.5 STD SCREEN 10/21/2013 RENETTA CARDOZA APRN V7 4.5 STD SCREEN 10/21/2013 BORJA DO, BRANDEN K V74.5 STD SCREEN 10/21/2013 BORJA DO, BRANDEN K V74.5 STD SCREEN 10/21/2013 RENETTA CARDOZA APRN V7 4.5 STD SCREEN 10/21/2013 RENETTA CARDOZA APRN V7 4.5 STD SCREEN 10/21/2013 RENETTA CARDOZA APRN V7 4.5 STD SCREEN 10/21/2013 RENETTA CARDOZA APRN V7 4.5 STD SCREEN 10/21/2013 FRANK FINLEY APRN S V74.5 STD SCREEN 10/21/2013 BORJA DO, BRANDEN K V74.5 STD SCREEN 10/21/2013 JENNA LOVING MD V74.5 STD SCREEN 10/21/2013 KAMRYN MATT MD V74.5 STD SCREEN 10/21/2013 KAMRYN MATT MD V74.5 STD SCREEN 10/21/2013 RENETTA CARDOZA APRN V7 4.5 STD SCREEN 10/21/2013 AKMRYN MATT MD V74.5 STD SCREEN 10/21/2013 KAMRYN MATT MD V74.5 STD SCREEN 10/21/2013 RENETTA CARDOZA APRN V7 4.5 STD SCREEN 10/21/2013 RENETTA CARDOZA APRN V7 4.5 STD SCREEN 10/21/2013 JENNA LOVING MD V74.5 STD SCREEN 10/21/2013 RENETTA CARDOZA APRN V7 4.5 STD SCREEN 10/21/2013 RENETTA CARDOZA APRN V7 4.5 STD SCREEN 12/04/2013 BORJA DO, BRANDEN K 414.00 CAD 12/04/2013 BORJA DO, BRANDEN K 786.09 DYSPNEA 12/04/2013 BORJA DO, BRANDEN K 414.00 CAD 12/04/2013 BORJA DO, BRANDEN K 786.09 DYSPNEA 12/04/2013 NANI PHARMACY BENEFIT MANAGER, RENETTA T 414.00 CORONARY ARTERY DISEASE 12/04/2013 [...] T 786.09 difficulty breathing (dyspnea) 12/04/2013 TUSHAR FORRESTER, FRANK S 414.00 CORONARY ARTERY DISEASE 12/04/2013 TUSHAR FORRESTER FRANK S 786.09 difficulty breathing (dyspnea) 12/04/2013 BORJA DO BRANDEN K 414.00 CORONARY ARTERY DISEASE 12/04/2013 BORJA DO BRANDEN K 786.09 difficulty breathing (dyspnea) 12/04/2013 JENNA LOVING MD 414.0 0 CORONARY ARTERY DISEASE 12/04/2013 JENNA LOVING MD 786.0 9 difficulty breathing (dyspnea) 12/04/2013 SHAKA ERAZO ALI 414.00 CORONARY ARTERY DISEASE 12/04/2013 SHAKA ERAZO ALI 786.09 difficulty breathing (dyspnea) 12/04/2013 SHAKA ERAZO ALI 414.00 CORONARY ARTERY DISEASE 12/04/2013 SHAKA ERAZO ALI 786.09 difficulty breathing (dyspnea) 12/04/2013 RENETTA CARDOZA APRN T 414.00 CORONARY ARTERY DISEASE 12/04/2013 RENETTA CARDOZA APRN T 786.09 difficulty breathing (dyspnea) 12/04/2013 SHAKA ERAZO ALI 414.00 CORONARY ARTERY DISEASE 12/04/2013 SHAKA ERAZO ALI 786.09 difficulty breathing (dyspnea) 12/04/2013 SHAKA ERAZO ALI 414.00 CORONARY ARTERY DISEASE 12/04/2013 SHAKA ERAZO ALI 786.09 difficulty breathing (dyspnea) 12/04/2013 RENETTA CARDOZA APRN T 414.00 CORONARY ARTERY DISEASE 12/04/2013 RENETTA CARDOZA APRN T 786.09 difficulty breathing (dyspnea) 12/04/2013 RENTETA CARDOZA APRN T 414.00 CORONARY ARTERY DISEASE 12/04/2013 RENETTA CARDOZA APRN T 786.09 difficulty breathing (dyspnea) 12/04/2013 JENNA LOVING MD 414.0 0 CORONARY ARTERY DISEASE 12/04/2013 JENNA LOVING MD 786.0 9 difficulty breathing (dyspnea) 12/04/2013 NANI PHARMACY BENEFIT MANAGER, RENETTA T 414.00 CORONARY ARTERY DISEASE 12/04/2013 NANI PHARMACY BENEFIT MANAGER, RENETTA T 786.09 difficulty breathing (dyspnea) 12/04/2013 NANI PHARMACY BENEFIT MANAGER, RENETTA T 414.00 CORONARY ARTERY DISEASE 12/04/2013 NANI FORRESTER RENETTA T 786.09 DIFFICULTY BREATHING (DYSPNEA) 03/25/2014 NANI PHARMACY BENEFIT MANAGER, RENETTA T 278.00 OBESITY 03/25/2014 RENETTA CARDOZA APRN T 70 1.9 SKIN TAG 03/25/2014 NANI FORRESTER RENETTA T 278.00 OBESITY 03/25/2014 RENETTA CARDOZA APRN T 70 1.9 SKIN TAG 03/25/2014 NANI FORRESTER RENETTA T 278.00 OBESITY 03/25/2014 RENETTA CARDOZA APRN T 70 1.9 SKIN TAG 03/25/2014 RENETTA CARDOZA APRN T 278.00 OBESITY 03/25/2014 RENETTA CARDOZA APRN T 70 1.9 SKIN TAG 03/25/2014 TUSHAR FORRESTER FRANK S 278.00 OBESITY 03/25/2014 TUSHAR FORRESTER FRANK S 701.9 SKIN TAG 03/25/2014 BORJA DO, BRANDEN K 278.00 OBESITY 03/25/2014 BORJA DO, BRANDEN K 701.9 SKIN TAG 03/25/2014 JENNA LOVING MD 278.0 0 OBESITY 03/25/2014 JENNA LOVING MD 701.9 SKIN TAG 03/25/2014 SHAKA ERAZO, ALI 278.00 OBESITY 03/25/2014 SHAKA ERAZO, ALI 701.9 SKIN TAG 03/25/2014 SHAKA ERAZO, ALI 278.00 OBESITY 03/25/2014 SHAKA ERAZO, ALI 701.9 SKIN TAG 03/25/2014 RENETTA CARDOZA APRN T 278.00 OBESITY 03/25/2014 RENETTA CARDOZA APRN T 70 1.9 SKIN TAG 03/25/2014 SHAKA ERAZO, ALI 278.00 OBESITY 03/25/2014 SHAKA ERAZO, ALI 701.9 SKIN TAG 03/25/2014 SHAKA ERAZO, ALI 278.00 OBESITY 03/25/2014 SHAKA ERAZO ALI 701.9 SKIN TAG 03/25/2014 RENETTA CARDOZA APRN T 278.00 OBESITY 03/25/2014 RENETTA CARDOZA APRN T 70 1.9 SKIN TAG 03/25/2014 RENETTA CARDOZA APRN T 278.00 OBESITY 03/25/2014 RENETTA CARDOZA APRN T 70 1.9 SKIN TAG 03/25/2014 JENNA LOVING MD 278.0 0 OBESITY 03/25/2014 JENNA LOVING MD 701.9 SKIN TAG 03/25/2014 RENETTA CARDOZA APRN T 278.00 OBESITY 03/25/2014 RENETTA CARDOZA APRN T 70 1.9 SKIN TAG 03/25/2014 RENETTA CARDOZA APRN T 278.00 OBESITY 03/25/2014 RENETTA CARDOZA APRN T 70 1.9 SKIN TAG 04/16/2014 RENETTA CARDOZA APRN T 30 5.1 TOBACCO ABUSE 04/16/2014 RENETTA CARDOZA APRN T 30 5.1 TOBACCO ABUSE 04/16/2014 FRANK FINLEY APRN S 305.1 TOBACCO ABUSE 04/16/2014 JONH MYRICK BRANDEN K 305.1 TOBACCO ABUSE 04/16/2014 JENNA LOVING MD 305.1 TOBACCO ABUSE 04/16/2014 KAMRYN MATT MD 305.1 TOBACCO ABUSE 04/16/2014 KAMRYN MATT MD 305.1 TOBACCO ABUSE 04/16/2014 RENETTA CARDOZA APRN T 30 5.1 TOBACCO ABUSE 04/16/2014 KAMRYN MATT MD 305.1 TOBACCO ABUSE 04/16/2014 KAMRYN MATT MD 305.1 TOBACCO ABUSE 04/16/2014 RENETTA CARDOZA APRN T 30 5.1 TOBACCO ABUSE 04/16/2014 RENETTA CARDOZA APRN T 30 5.1 TOBACCO ABUSE 04/16/2014 JENNA LOVING MD 305.1 TOBACCO ABUSE 04/16/2014 RENETTA CARDOZA APRN T 30 5.1 TOBACCO ABUSE 04/16/2014 RENETTA CARDOZA APRN T 30 5.1 TOBACCO ABUSE 04/21/2014 RENETTA CARDOZA APRN T 780.79 fatigue 04/21/2014 RENETTA CARDOZA APRN T 780.79 fatigue 04/21/2014 FRANK FINLEY APRN S 780.79 fatigue 04/21/2014 JONH DO BRANDEN K 780.79 fatigue 04/21/2014 JENNA LOVING MD 780.7 9 fatigue 04/21/2014 KAMRYN MATT MD 780.79 fatigue 04/21/2014 KAMRYN MATT MD 780.79 fatigue 04/21/2014 RENETTA CARDOZA APRN 780.79 fatigue 04/21/2014 KAMRYN MATT MD 780.79 fatigue 04/21/2014 KAMRYN MATT MD 780.79 fatigue 04/21/2014 RENETTA CARDOZA APRN 780.79 fatigue 04/21/2014 RENETTA CARDOZA APRN 780.79 fatigue 04/21/2014 JENNA LOVING MD 780.7 9 fatigue 04/21/2014 RENETTA CARDOZA APRN 780.79 fatigue 04/21/2014 RENETTA CARDOZA APRN 780.79 fatigue 05/22/2014 FRANK FINLEY APRN 782.3 EDEMA 05/22/2014 VICENTE BORJA DOA K 782.3 EDEMA 05/22/2014 JENNA LOVING MD 782.3 EDEMA 05/22/2014 KAMRYN MATT MD 782.3 EDEMA 05/22/2014 KAMRYN MATT MD 782.3 EDEMA 05/22/2014 RENETTA CARDOZA APRN 78 2.3 EDEMA 05/22/2014 KAMRYN MATT MD 782.3 EDEMA 05/22/2014 KAMRYN MATT MD 782.3 EDEMA 05/22/2014 RENETTA CARDOZA APRN 78 2.3 EDEMA 05/22/2014 RENETTA CARDOZA APRN 78 2.3 EDEMA 05/22/2014 JENNA LOVING MD 782.3 EDEMA 05/22/2014 RENETTA CARDOZA APRN 78 2.3 EDEMA 05/22/2014 RENETTA CARDOZA APRN 78 2.3 EDEMA 06/04/2014 BORJA DO, BRANDEN K 780.2 SYNCOPE 06/04/2014 BORJA DO, BRANDEN K 785.1 PALPITATIONS 06/04/2014 BORJA DO, BRANDEN K 786.05 SHORTNESS OF BREATH 06/04/2014 JENNA LOVING MD 780.2 SYNCOPE 06/04/2014 JENNA LOVING MD 785.1 PALPITATIONS 06/04/2014 JENNA LOVING MD 786.0 5 SHORTNESS OF BREATH 06/04/2014 KAMRYN MATT MD 780.2 SYNCOPE 06/04/2014 KAMRYN MATT MD 785.1 PALPITATIONS 06/04/2014 KAMRYN MATT MD 786.05 SHORTNESS OF BREATH 06/04/2014 SHAKA MD, ALI 780.2 SYNCOPE 06/04/2014 SHAKA ERAZO, ALI 785.1 PALPITATIONS 06/04/2014 SHAKA ERAZO, ALI 786.05 SHORTNESS OF BREATH 06/04/2014 RENETTA CARDOZA APRN T 78 0.2 SYNCOPE 06/04/2014 NANI FORRESTER RENETTA T 78 5.1 PALPITATIONS 06/04/2014 RENETTA CARDOZA APRN T 786.05 SHORTNESS OF BREATH 06/04/2014 SHAKA ERAZO, ALI 780.2 SYNCOPE 06/04/2014 SHAKA ERAZO, ALI 785.1 PALPITATIONS 06/04/2014 SHAKA ERAZO, ALI 786.05 SHORTNESS OF BREATH 06/04/2014 SHAKA ERAZO, ALI 780.2 SYNCOPE 06/04/2014 SHAKA ERAZO, ALI 785.1 PALPITATIONS 06/04/2014 SHAKA ERAZO, ALI 786.05 SHORTNESS OF BREATH 06/04/2014 RENETTA CARDOZA APRN T 78 0.2 SYNCOPE 06/04/2014 NANI FORRESTER RENETTA T 78 5.1 PALPITATIONS 06/04/2014 RENETTA CARDOZA APRN T 786.05 SHORTNESS OF BREATH 06/04/2014 NANI FORRESTER RENETTA T 78 0.2 SYNCOPE 06/04/2014 NANI FORRESTER RENETTA T 78 5.1 PALPITATIONS 06/04/2014 RENETTA CARDOZA APRN T 786.05 SHORTNESS OF BREATH 06/04/2014 JENNA LOVING MD 780.2 SYNCOPE 06/04/2014 JENNA LOVING MD 785.1 PALPITATIONS 06/04/2014 JENNA LOVING MD 786.0 5 SHORTNESS OF BREATH 06/04/2014 RENETTA CARDOZA APRN T 78 0.2 SYNCOPE 06/04/2014 NANI FORRESTER RENETTA T 78 5.1 PALPITATIONS 06/04/2014 NANI FORRESTER ERNETTA T 786.05 SHORTNESS OF BREATH 06/04/2014 NANI FORRESTER RENETTA T 78 0.2 SYNCOPE 06/04/2014 NANI FORRESTER RENETTA T 78 5.1 PALPITATIONS 06/04/2014 RENETTA CARDOZA APRN T 786.05 SHORTNESS OF BREATH 06/06/2014 ROMA STRICKLAND APRN Ot 729.89 MUSCSKEL SYMPT LIMB NEC 06/06/2014 ROMA STRICKLAND APRN Ot 780 .2 SYNCOPE AND COLLAPSE 06/06/2014 ROMA STRICKLAND APRN Ot 796 .0 ABN TOXICOLOGIC FINDING 06/17/2014 BAIMA, ELIS L WEIGHT GUESSER Ot 780.2 SYNCOPE AND COLLAPSE 06/17/2014 BAIMA, ELIS L WEIGHT GUESSER Ot 785.1 PALPITATIONS 06/17/2014 BAIMA, ELIS L WEIGHT GUESSER Ot 786.05 SHORTNESS OF BREATH 06/17/2014 BAIMA, ELIS L WEIGHT GUESSER Ot 786.50 CHEST PAIN NOS 07/22/2014 SHAKA ERAZO FACC, ALI FACP CCDS Ot 272.4 HYPERLIPIDEMIA NEC/NOS 07/22/2014 SHAKA ERAZO FACC, ALI FACP CCDS Ot 305.1 TOBACCO USE DISORDER 07/22/2014 SHAKA ERAZO FACC, ALI FACP CCDS Ot 345.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 07/22/2014 SHAKA ERAZO FACC, ALI FACP CCDS Ot 414.01 CORONARY ATHEROSCLEROSIS OF [place] BAND CORON 07/22/2014 SHAKA ERAZO FACC, ALI FACP CCDS Ot 414.4 CORONARY ATHEROSCLEROSIS DUE TO [place] 07/22/2014 SHAKA ERAZO FACC, KAMRYN FACP CCDS Ot 496 CHR AIRWAY OBSTRUCT NEC 07/22/2014 SHAKA ERAZO FACC, ALI FACP CCDS Ot 780.2 SYNCOPE AND COLLAPSE 07/22/2014 SHAKA ERAZO FACC, ALI FACP CCDS Ot 780.57 UNSPECIFIED SLEEP APNEA 07/22/2014 SHAKA ERAZO FACC, ALI FACP CCDS Ot 785.1 PALPITATIONS 07/22/2014 SHAKA ERAZO FACC, ALI FACP CCDS Ot 786.59 CHEST PAIN NEC 07/22/2014 SHAKA ERAZO FACC, ALI FACP CCDS Ot V58.69 OTH MED,LT,CURRENT USE 09/04/2014 BAIMA, ELIS L WEIGHT GUESSER Ot 780.2 SYNCOPE AND COLLAPSE 09/04/2014 BAIMA, ELIS L WEIGHT GUESSER Ot 785.1 PALPITATIONS 09/04/2014 BAIMA, ELIS L WEIGHT GUESSER Ot 786.05 SHORTNESS OF BREATH 09/04/2014 BAIMA, ELIS L WEIGHT GUESSER Ot 786.50 CHEST PAIN NOS 09/11/2014 RENETTA CARDOZA WEIGHT GUESSER Ot 345.90 10/09/2014 FABIENNE ERAZO, JENNA 924.9 CONTUSION OF UNSPECIFIED SITE 10/09/2014 RENETTA CARDOZA APRN 92 4.9 CONTUSION OF UNSPECIFIED SITE 10/09/2014 RENETTA CARDOZA APRN 92 4.9 CONTUSION OF UNSPECIFIED SITE 10/14/2014 Ot 345.90 10/14/2014 SHAKA ERAZO FACC, ALI FACP CCDS Ot 786.05 10/14/2014 SHAKA ERAZO FACC, ALI FACP CCDS Ot 786.50 10/14/2014 SHAKA ERAZO FACC, ALI FACP CCDS Ot 414.00 10/14/2014 SHAKA ERAZO FACC, ALI FACP CCDS Ot 496 10/14/2014 SHAKA ERAZO FACC, ALI FACP CCDS Ot 786.09 10/14/2014 SHAKA MD FACC, ALI FACP CCDS Ot 786.50 10/14/2014 RENETTA CARDOZA WEIGHT GUESSER Ot 345.90 10/14/2014 Ot 780.2 10/14/2014 Ot 785.1 10/14/2014 Ot 786.05 10/14/2014 Ot 786.50 10/16/2014 Ot 345.90 10/16/2014 SHAKA ERAZO FACC, ALI FACP CCDS Ot 786.05 10/16/2014 SHAKA ERAZO FACC, ALI FACP CCDS Ot 786.50 10/16/2014 SHAKA ERAZO FACC, ALI FACP CCDS Ot 414.00 10/16/2014 SHAKA ERAZO FACC, ALI FACP CCDS Ot 496 10/16/2014 SHAKA ERAZO FACC, ALI FACP CCDS Ot 786.09 10/16/2014 SHAKA ERAZO FACC, ALI FACP CCDS Ot 786.50 10/16/2014 RENETTA CARDOZA WEIGHT GUESSER Ot 345.90 10/16/2014 Ot 780.2 10/16/2014 Ot [...] FACP CCDS Ot 786.50 10/19/2014 RENETTA CARDOZA WEIGHT GUESSER Ot 345.90 10/19/2014 Ot 780.2 10/19/2014 Ot 785.1 10/19/2014 Ot 786.05 10/19/2014 Ot 786.50 11/24/2014 RENETTA CARDOZA APRN 46 5.9 UPPER RESPIRATORY INFECTION 11/24/2014 RENETTA CARDOZA APRN 68 2.9 CELLULITIS AND ABSCESS OF UNSPECIFIED SITES 11/24/2014 RENETTA CARDOZA APRN V1 6.3 FAMILY HISTORY OF MALIGNANT NEOPLASM OF BREAST 11/27/2014 Ot 345.90 11/27/2014 SHAKA ERAZO FACC, ALI FACP CCDS Ot 786.05 11/27/2014 SHAKA ERAZO FACC, ALI FACP CCDS Ot 786.50 11/27/2014 SHAKA ERAZO FACC, ALI FACP CCDS Ot 414.00 11/27/2014 SHAKA ERAZO FACC, ALI FACP CCDS Ot 496 11/27/2014 SHAKA ERAZO FACC, ALI FACP CCDS Ot 786.09 11/27/2014 SHAKA REESC, ALI FACP CCDS Ot 786.50 11/27/2014 RENETTA CARDOZA WEIGHT GUESSER Ot 345.90 11/27/2014 Ot 780.2 11/27/2014 Ot [...] FACP CCDS Ot 786.50 12/01/2014 RENETTA CARDOZA WEIGHT GUESSER Ot 345.90 12/01/2014 Ot 780.2 12/01/2014 Ot [...] FACP CCDS Ot 786.50 12/11/2014 RENETTA CARDOZA WEIGHT GUESSER Ot 345.90 12/11/2014 Ot 780.2 12/11/2014 Ot 785.1 12/11/2014 Ot 786.05 12/11/2014 Ot 786.50 2014 RENETTA CARDOZA WEIGHT GUESSER Ot 611.72 2014 RENETTA CARDOZA WEIGHT GUESSER Ot V16.3 12/24/2014 Ot 345.90 12/24/2014 SHAKA ERAZO FACC, ALI FACP CCDS Ot 786.05 12/24/2014 SHAKA ERAZO FACC, ALI FACP CCDS Ot 786.50 12/24/2014 SHAKA ERAZO FACC, ALI FACP CCDS Ot 414.00 12/24/2014 SHAKA ERAZO FACC, ALI FACP CCDS Ot 496 12/24/2014 SHAKA ERAZO FACC, ALI FACP CCDS Ot 786.09 12/24/2014 SHAKA ERAZO FACC, ALI FACP CCDS Ot 786.50 12/24/2014 RENETTA CARDOZA WEIGHT GUESSER Ot 345.90 12/24/2014 Ot 780.2 12/24/2014 Ot 785.1 12/24/2014 Ot 786.05 12/24/2014 Ot 786.50 01/09/2015 RENETTA CARDOZA APRN V16.42 FAMILY HISTORY OF MALIGNANT NEOPLASM OF PROSTATE 01/23/2015 RENETTA CARDOZA APRN 78 4.0 HEADACHE 03/13/2015 Ot 345.90 03/13/2015 SHAKA ERAZO FACC, ALI FACP CCDS Ot 786.05 03/13/2015 SHAKA ERAZO FACC, ALI FACP CCDS Ot 786.50 03/13/2015 SHAKA ERAZO FACC, ALI FACP CCDS Ot 414.00 03/13/2015 SHAKA ERAZO FACC, ALI FACP CCDS Ot 496 03/13/2015 SHAKA ERAZO FACC, ALI FACP CCDS Ot 786.09 03/13/2015 SHAKA ERAZO FACC, ALI FACP CCDS Ot 786.50 03/13/2015 RENETTA CARDOZA Ot 345.90 03/13/2015 Ot 780.2 03/13/2015 Ot [...] ALI FACP CCDS Ot 414.00 04/03/2015 SHAKA REESC, ALI FACP CCDS Ot 496 04/03/2015 SHAKA REESC, ALI FACP CCDS Ot 786.09 04/03/2015 SHAKA ERAZO FACC, ALI FACP CCDS Ot 786.50 04/03/2015 RENETTA CARDOZA Ot 345.90 04/03/2015 Ot 780.2 04/03/2015 Ot 785.1 04/03/2015 Ot 786.05 04/03/2015 Ot 786.50 04/09/2015 Ot 345.90 04/09/2015 SHAKA REESC, ALI FACP CCDS Ot 786.05 04/09/2015 SHAKA REESC, ALI FACP CCDS Ot 786.50 04/09/2015 SHAKA MD FACC, ALI FACP CCDS Ot 414.00 04/09/2015 SHAKA ERAZO FACC, ALI FACP CCDS Ot 496 04/09/2015 SHAKA ERAZO FACC, ALI FACP CCDS Ot 786.09 04/09/2015 SHAKA ERAZO FACC, ALI FACP CCDS Ot 786.50 04/09/2015 RENETTA CARDOZA WEIGHT GUESSER Ot 345.90 04/09/2015 Ot 780.2 04/09/2015 Ot 785.1 04/09/2015 Ot 786.05 04/09/2015 Ot 786.50 05/18/2015 Ot 345.90 05/18/2015 SHAKA ERAZO FACC, ALI FACP CCDS Ot 786.05 05/18/2015 SHAKA ERAZO FACC, ALI FACP CCDS Ot 786.50 05/18/2015 SHAKA ERAZO FACC, ALI FACP CCDS Ot 414.00 05/18/2015 SHAKA ERAZO FACC, ALI FACP CCDS Ot 496 05/18/2015 SHAKA REESC, ALI FACP CCDS Ot 786.09 05/18/2015 SHAKA ERAZO FACC, ALI FACP CCDS Ot 786.50 05/18/2015 RENETTA CARDOZA WEIGHT GUESSER Ot 345.90 05/18/2015 Ot 780.2 05/18/2015 Ot [...] FACP CCDS Ot 786.50 05/18/2015 RENETTA CARDOZA WEIGHT GUESSER Ot 345.90 05/18/2015 Ot 780.2 05/18/2015 Ot 785.1 05/18/2015 Ot 786.05 05/18/2015 Ot 786.50 10/11/2015 Ot 345.90 10/11/2015 SHAKA MD FACC, ALI FACP CCDS Ot 786.05 10/11/2015 [...] 786.50 10/13/2015 Ot 345.90 10/13/2015 SHAKA ERAZO FACC, ALI FACP CCDS Ot 786.05 10/13/2015 SHAKA ERAZO FACC, ALI FACP CCDS Ot 786.50 10/13/2015 SHAKA ERAZO FACC, ALI FACP CCDS Ot 414.00 10/13/2015 SHAKA ERAZO FACC, ALI FACP CCDS Ot 496 10/13/2015 SHAKA ERAZO FACC, ALI FACP CCDS Ot 786.09 10/13/2015 SHAKA ERAZO FACC, ALI FACP CCDS Ot 786.50 10/13/2015 RENETTA CARDOZA Ot 345.90 10/13/2015 Ot 780.2 10/13/2015 Ot 785.1 10/13/2015 Ot 786.05 10/13/2015 Ot 786.50 10/14/2015 RENETTA CARDOZA Ot 611.72 10/14/2015 RENETTA CARDOZA Ot V16.3 10/14/2015 Ot 780.2 10/14/2015 Ot 785.1 10/14/2015 Ot 786.05 10/14/2015 Ot 786.50 10/15/2015 LANG HUDSON DO Ot T82.118A 10/15/2015 ESBON BRANNON MYRICKTT D Ot Z01.810 10/15/2015 ESBON BRANNON MYRICKTT D Ot Z01.812 10/15/2015 HUDSON LANG MYRICK Ot Z11. 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 2 10/29/2015 ESBON BRANNON MYRICKTT D Ot T82.118A 10/29/2015 ESBON BRANNON MYRICKTT D Ot Z01.810 10/29/2015 ESBON BRANNON MYRICKTT D Ot Z01.812 10/29/2015 HUDSON BRANNON MYRICKTT D Ot Z11. 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 03/03/2016 SHAKA ERAZO [...] 786.50 CHEST PAIN NOS 03/03/2016 RENETTA CARDOZA WEIGHT GUESSER Ot 345.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 03/03/2016 Ot 780.2 SYNC OPE AND COLLAPSE 03/03/2016 Ot 785.1 PALP ITATIONS 03/03/2016 Ot 786.05 NATACHA RTNESS OF BREATH 03/03/[address] PAIN NOS 03/15/2016 Ot 345.90 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 03/15/2016 SHAKA ERAZO FACC, ALI FACP CCDS Ot 786.05 SHORTNESS OF BREATH 03/15/2016 SHAKA ERAZO FACElen, ALI FACP CCDS Ot 786.50 CHEST PAIN NOS 03/15/2016 SHAKA ERAZO FACC, ALI FACP CCDS Ot 414.00 CORON ATHEROSCLER NOS TYPE VESSEL, NATIV 03/15/2016 SHAKA ERAZO FACC, ALI FACP CCDS Ot 496 CHR AIRWAY OBSTRUCT NEC 03/15/2016 SHAKA REESC, ALI FACP CCDS Ot 786.09 RESPIRATORY ABNORM NEC 03/15/2016 SHAKA ERAZO FACC, ALI FACP CCDS Ot 786.50 CHEST PAIN NOS 03/15/2016 RENETTA CARDOZA WEIGHT GUESSER Ot 345.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 03/15/2016 Ot 780.2 SYNC OPE AND COLLAPSE 03/15/2016 Ot 785.1 PALP ITATIONS 03/15/2016 Ot 786.05 NATACHA RTNESS OF BREATH 03/15/[address] PAIN NOS 03/15/2016 Ot 345.90 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 03/15/2016 SHAKA ERAZO [...] UNSPEC W/O MENTION INTRACTABLE 03/15/2016 Ot 780.2 SYNC OPE AND COLLAPSE 03/15/2016 Ot 785.1 PALP ITATIONS 03/15/2016 Ot 786.05 NATACHA RTNESS OF BREATH 03/15/[address] PAIN NOS 04/25/2016 Ot 345.90 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 04/25/2016 SHAKA ERAZO [...] CCDS Ot 786.50 CHEST PAIN NOS 04/25/2016 RENETTA CARDOZA Ot 345.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 04/25/2016 Ot 780.2 SYNC OPE AND COLLAPSE 04/25/2016 Ot 785.1 PALP ITATIONS 04/25/2016 Ot 786.05 NATACHA RTNESS OF BREATH 04/25/[address] PAIN NOS 04/26/2016 Ot 345.90 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 04/26/2016 SHAKA ERAZO FACC, ALI FACP CCDS Ot 786.05 SHORTNESS OF BREATH 04/26/2016 SHAKA ERAZO FACElen, ALI FACP CCDS Ot 786.50 CHEST PAIN NOS 04/26/2016 SHAKA ERAZO FACElen, ALI FACP CCDS Ot 414.00 CORON ATHEROSCLER NOS TYPE VESSEL, NATIV 04/26/2016 SHAKA ERAZO FACC, ALI FACP CCDS Ot 496 CHR AIRWAY OBSTRUCT NEC 04/26/2016 SHAKA ERAZO FACC, ALI FACP CCDS Ot 786.09 RESPIRATORY ABNORM NEC 04/26/2016 SHAKA ERAZO FACC, ALI FACP CCDS Ot 786.50 CHEST PAIN NOS 04/26/2016 RENETTA CARDOZA Ot 345.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 04/26/2016 Ot 780.2 SYNC OPE AND COLLAPSE 04/26/2016 Ot 785.1 PALP ITATIONS 04/26/2016 Ot 786.05 NATACHA RTNESS OF BREATH 04/26/[address] PAIN NOS 04/27/2016 Ot 345.90 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 04/27/2016 SHAKA ERAZO [...] 786.09 RESPIRATORY ABNORM NEC 04/27/2016 SHAKA ERAZO FACElen, ALI FACP CCDS Ot 786.50 CHEST PAIN NOS 04/27/2016 RENETTA CARDOZA Ot 345.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 04/27/2016 Ot 780.2 SYNC OPE AND COLLAPSE 04/27/2016 Ot 785.1 PALP ITATIONS 04/27/2016 Ot 786.05 NATACHA RTNESS OF BREATH 04/27/[address] PAIN NOS 05/18/2016 Ot 345.90 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 05/18/2016 SHAKA ERAZO FACC, ALI FACP CCDS Ot 786.05 SHORTNESS OF BREATH 05/18/2016 SHAKA ERAZO FACC, ALI FACP CCDS Ot 786.50 CHEST PAIN NOS 05/18/2016 SHAKA ERAZO FACC, ALI FACP CCDS Ot 414.00 CORON ATHEROSCLER NOS TYPE VESSEL, NATIV 05/18/2016 SHAKA REESC, ALI FACP CCDS Ot 496 CHR AIRWAY OBSTRUCT NEC 05/18/2016 SHAKA ERAZO FACC, ALI FACP CCDS Ot 786.09 RESPIRATORY ABNORM NEC 05/18/2016 SHAKA ERAZO FACC, ALI FACP CCDS Ot 786.50 CHEST PAIN NOS 05/18/2016 RENETTA CARDOZA WEIGHT GUESSER Ot 345.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 05/18/2016 Ot 780.2 SYNC OPE AND COLLAPSE 05/18/2016 Ot 785.1 PALP ITATIONS 05/18/2016 Ot 786.05 NATACHA RTNESS OF BREATH 05/18/[address] PAIN NOS 08/04/2016 Ot 345.90 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 08/04/2016 SHAKA ERAZO FACC, ALI FACP CCDS Ot 786.05 SHORTNESS OF BREATH 08/04/2016 SHAKA ERAZO FACC, ALI FACP CCDS Ot 786.50 CHEST PAIN NOS 08/04/2016 SHAKA ERAZO FACC, ALI FACP CCDS Ot 414.00 CORON ATHEROSCLER NOS TYPE VESSEL, NATIV 08/04/2016 SHAKA ERAZO FACC, ALI FACP CCDS Ot 496 CHR AIRWAY OBSTRUCT NEC 08/04/2016 SHAKA ERAZO FACC, ALI FACP CCDS Ot 786.09 RESPIRATORY ABNORM NEC 08/04/2016 SHAKA ERAZO FACC, ALI FACP CCDS Ot 786.50 CHEST PAIN NOS 08/04/2016 RENETTA CARDOZA WEIGHT GUESSER Ot 345.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 08/04/2016 Ot 780.2 SYNC OPE AND COLLAPSE 08/04/2016 Ot 785.1 PALP ITATIONS 08/04/2016 Ot 786.05 NATACHA RTNESS OF BREATH 08/04/[address] PAIN NOS 11/14/2016 Ot 345.90 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 11/14/2016 SHAKA ERAZO FACC, ALI FACP CCDS Ot 786.05 SHORTNESS OF BREATH 11/14/2016 SHAKA ERAZO FACC, KAMRYN FACP CCDS Ot 786.50 CHEST PAIN NOS 11/14/2016 SHAKA ERAZO FACC, KAMRYN FACP CCDS Ot 414.00 CORON ATHEROSCLER NOS TYPE VESSEL, NATIV 11/14/2016 SHAKA ERAZO FACC, ALI FACP CCDS Ot 496 CHR AIRWAY OBSTRUCT NEC 11/14/2016 SHAKA ERAZO FACC, ALI FACP CCDS Ot 786.09 RESPIRATORY ABNORM NEC 11/14/2016 SHAKA ERAZO FACC, ALI FACP CCDS Ot 786.50 CHEST PAIN NOS 11/14/2016 RENETTA CARDOZA WEIGHT GUESSER Ot 345.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 11/14/2016 Ot 780.2 SYNC OPE AND COLLAPSE 11/14/2016 Ot 785.1 PALP ITATIONS 11/14/2016 Ot 786.05 NATACHA RTNESS OF BREATH 11/14/[address] PAIN NOS 12/28/2016 CARMEN HOYOS PHARMACY BENEFIT MANAGER Ot F17.200 NICOTINE DEPENDENCE, UNSPECIFIED, UNCOMP 12/28/2016 CARMEN HOYOS APRN Ot J44.9 CHRONIC OBSTRUCTIVE PULMONARY DISEASE, U 12/28/2016 CARMEN HOYOS APRN Ot R06.00 DYSPNEA, UNSPECIFIED 01/24/2017 CARMEN HOYOS APRN Ot F17.200 NICOTINE DEPENDENCE, UNSPECIFIED, UNCOMP 01/24/2017 CARMEN HOYOS APRN Ot J44.9 CHRONIC OBSTRUCTIVE PULMONARY DISEASE, U 01/24/2017 CARMEN HOYOS APRN Ot R06.00 DYSPNEA, UNSPECIFIED 02/03/2017 CARMEN HOYOS PHARMACY BENEFIT MANAGER Ot F17.200 NICOTINE DEPENDENCE, UNSPECIFIED, UNCOMP 02/03/2017 CARMEN HOYOS PHARMACY BENEFIT MANAGER Ot J44.9 CHRONIC OBSTRUCTIVE PULMONARY DISEASE, U 02/03/2017 CARMEN HOYOS APRN Ot R06.00 DYSPNEA, UNSPECIFIED 03/31/2017 ROMA STRICKLAND APRN Ot J44 .9 CHRONIC OBSTRUCTIVE PULMONARY DISEASE, U 03/31/2017 ROMA STRICKLAND APRN Ot M17.11 UNILATERAL PRIMARY OSTEOARTHRITIS, RIGHT 03/31/2017 ROMA STRICKLAND APRN Ot M25.561 PAIN IN RIGHT KNEE 03/31/2017 ROMA STRICKLAND APRN Ot Z79.82 INTERMEDIATE (CURRENT) USE OF ASPIRIN 03/31/2017 ROMA STRICKLAND PHARMACY BENEFIT MANAGER Ot Z79.899 OTHER HEALTHCARE ADMINISTRATOR (CURRENT) DRUG THERAPY 04/02/2017 ROMA STRICKLAND PHARMACY BENEFIT MANAGER Ot J44 .9 CHRONIC OBSTRUCTIVE PULMONARY DISEASE, U 04/02/2017 ROMA STRICKLAND PHARMACY BENEFIT MANAGER Ot M17.11 UNILATERAL PRIMARY OSTEOARTHRITIS, RIGHT 04/02/2017 ROMA STRICKLAND PHARMACY BENEFIT MANAGER Ot M25.561 PAIN IN RIGHT KNEE 04/02/2017 ROMA STRICKLAND PHARMACY BENEFIT MANAGER Ot Z79.82 INTERMEDIATE (CURRENT) USE OF ASPIRIN 04/02/2017 ROMA STRICKLAND PHARMACY BENEFIT MANAGER Ot Z79.899 OTHER HEALTHCARE ADMINISTRATOR (CURRENT) DRUG THERAPY 04/12/2017 RENETTA CARDOZA WEIGHT GUESSER Ot M25.561 PAIN IN RIGHT KNEE 04/16/2017 RENETTA CARDOZA WEIGHT GUESSER Ot M25.561 PAIN IN RIGHT KNEE 05/04/2017 RENETTA CARDOZA WEIGHT GUESSER Ot M25.561 PAIN IN RIGHT KNEE 05/12/2017 RENETTA CARDOZA WEIGHT GUESSER Ot M25.561 PAIN IN RIGHT KNEE 05/30/2017 SHAKA ERAZO FACC, KAMRYN FACP CCDS Ot E78.5 HYPERLIPIDEMIA, UNSPECIFIED 05/30/2017 SHAKA ERAZO FACC, ALI FACP CCDS Ot I25.10 ATHSCL HEART DISEASE OF [place] CORONARY 05/30/2017 SHAKA ERAZO FACC, ALI FACP CCDS Ot 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 05/30/2017 SHAKA ERAZO FACC, ALI FACP CCDS Ot R06.02 SHORTNESS OF BREATH 05/30/2017 SHAKA ERAZO FACC, KAMRYN FACP CCDS Ot E78.5 HYPERLIPIDEMIA, UNSPECIFIED 05/30/2017 SHAKA ERAZO FACC, ALI FACP CCDS Ot I25.10 ATHSCL HEART DISEASE OF [place] CORONARY 05/30/2017 SHAKA ERAZO FACC, ALI FACP CCDS Ot 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 05/30/2017 SHAKA ERAZO FACC, ALI FACP CCDS Ot R06.02 SHORTNESS OF BREATH 05/30/2017 SHAKA ERAZO FACC, KAMRYN FACP CCDS Ot E78.5 HYPERLIPIDEMIA, UNSPECIFIED 05/30/2017 SHAKA ERAZO FACC, ALI FACP CCDS Ot I25.10 ATHSCL HEART DISEASE OF [place] CORONARY 05/30/2017 SHAKA MD FACC, ALI FACP CCDS Ot 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 05/30/2017 SHAKA ERAZO FAC, ALI FACP CCDS Ot R06.02 SHORTNESS OF BREATH 06/15/2017 Ot 780.2 SYNC OPE AND COLLAPSE 06/15/2017 Ot 785.1 PALP ITATIONS 06/15/2017 Ot 786.05 NATACHA RTNESS OF BREATH 06/15/[address] PAIN NOS 06/15/2017 LEYLA TORRES MD Ot S83.241A OTH TEAR OF MEDIAL MENISCUS, CURRENT INJ 06/15/2017 LEYLA TORRES MD, Ot S83.281A OTH TEAR OF LAT MENSC, CURRENT INJURY, R 06/15/2017 LEYLA TORRES MD Ot X58.XXXA EXPOSURE TO OTHER SPECIFIED FACTORS, INI 06/15/2017 LEYLA TORRES MD Ot Y99.8 OTHER EXTERNAL CAUSE STATUS 06/15/2017 LEYLA TORRES MD Ot Z01.818 ENCOUNTER FOR OTHER PREPROCEDURAL EXAMIN 06/16/2017 LEYLA TORRES MD Ot S83.241A OTH TEAR OF MEDIAL MENISCUS, CURRENT INJ 06/16/2017 LEYLA TORRES MD, Ot S83.281A OTH TEAR OF LAT MENSC, [...] (ADULT) (PEDIATR 06/21/2017 LEYLA TORRES MD Ot I1 0 ESSENTIAL (PRIMARY) HYPERTENSION 06/21/2017 LEYLA TORRES MD Ot I25.10 ATHSCL HEART DISEASE OF [place] CORONARY 06/21/2017 LEYLA TORRES MD Ot J44.9 [...] CCDS Ot I25.10 ATHSCL HEART DISEASE OF [place] CORONARY 06/23/2017 SHAKA ERAZO FACC, ALI FACP CCDS Ot 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 06/23/2017 SHAKA ERAZO FACC, ALI FACP CCDS Ot R06.02 SHORTNESS OF BREATH 06/26/2017 SHAKA ERAZO FACC, ALI FACP CCDS Ot E78.5 HYPERLIPIDEMIA, UNSPECIFIED 06/26/2017 SHAKA ERAZO FACC, ALI FACP CCDS Ot I25.10 ATHSCL HEART DISEASE OF [place] CORONARY 06/26/2017 SHAKA ERAZO FACC, ALI FACP [...] (ADULT) (PEDIATR 06/27/2017 LEYLA TORRES MD Ot I1 0 ESSENTIAL (PRIMARY) HYPERTENSION 06/27/2017 LEYLA TORRES MD Ot I25.10 ATHSCL HEART DISEASE OF [place] CORONARY 06/27/2017 LEYLA TORRES MD, Ot J44.9 CHRONIC OBSTRUCTIVE PULMONARY DISEASE, U 06/27/2017 LEYLA TORRES MD, Ot K21.9 GASTRO-ESOPHAGEAL REFLUX DISEASE WITHOUT 06/27/2017 LEYLA TORRES MD, Ot M22.41 CHONDROMALACIA PATELLAE, RIGHT KNEE 06/27/2017 LEYLA TORRES MD Ot M23.8X1 OTHER INTERNAL DERANGEMENTS OF RIGHT KNE 08/07/2017 LEYLA TORRES MD, Ot M22.42 CHONDROMALACIA PATELLAE, LEFT KNEE 08/07/2017 LEYLA TORRES MD, Ot M23.204 DERANG OF UNSP MEDIAL MENISCUS DUE TO OL 08/07/2017 LEYLA TORRES MD, Ot Z01.818 ENCOUNTER FOR OTHER PREPROCEDURAL EXAMIN 08/09/2017 LEYLA TORRES MD, Ot E78.5 HYPERLIPIDEMIA, UNSPECIFIED 08/09/2017 LEYLA TORRES MD, Ot F17.210 NICOTINE DEPENDENCE, CIGARETTES, UNCOMPL 08/09/2017 LEYLA TORRES MD Ot G47.33 OBSTRUCTIVE SLEEP APNEA (ADULT) (PEDIATR 08/09/2017 LEYLA TORRES MD Ot I1 0 ESSENTIAL (PRIMARY) HYPERTENSION 08/09/2017 LEYLA TORRES MD, Ot I25.10 ATHSCL HEART DISEASE OF [place] CORONARY 08/09/2017 LEYLA TORRES MD, Ot J44.9 CHRONIC OBSTRUCTIVE PULMONARY DISEASE, U 08/09/2017 LEYLA TORRES MD Ot M23.252 DERANG OF [place] OF LAT MENSC DUE TO 08/09/2017 LEYLA TORRES MD Ot M94.262 CHONDROMALACIA, LEFT KNEE 08/09/2017 LEYLA TORRES MD Ot R56.9 UNSPECIFIED CONVULSIONS 08/09/2017 LEYLA TORRES MD, Ot Z79.899 OTHER INTERMEDIATE (CURRENT) DRUG THERAPY 08/11/2017 LEYLA TORRES MD, Ot E78.5 HYPERLIPIDEMIA, UNSPECIFIED 08/11/2017 LEYLA TORRES MD Ot F17.210 NICOTINE DEPENDENCE, CIGARETTES, UNCOMPL 08/11/2017 LEYLA TORRES MD Ot G47.33 OBSTRUCTIVE SLEEP APNEA (ADULT) (PEDIATR 08/11/2017 LEYLA TORRES MD Ot I1 0 ESSENTIAL (PRIMARY) HYPERTENSION 08/11/2017 LEYLA TORRES MD Ot I25.10 ATHSCL HEART DISEASE OF [place] CORONARY 08/11/2017 LEYLA TORRES MD Ot J44.9 CHRONIC OBSTRUCTIVE PULMONARY DISEASE, U 08/11/2017 LEYLA TORRES MD Ot M23.252 DERANG OF [place] OF LAT MENSC DUE TO 08/11/2017 LEYLA TORRES MD Ot M94.262 CHONDROMALACIA, LEFT KNEE 08/11/2017 LEYLA TORRES MD Ot R56.9 UNSPECIFIED CONVULSIONS 08/11/2017 LEYLA TORRES MD Ot Z79.899 OTHER HEALTHCARE ADMINISTRATOR (CURRENT) DRUG THERAPY 08/13/2017 LEYLA TORRES MD Ot M22.42 CHONDROMALACIA PATELLAE, LEFT KNEE 08/13/2017 LEYLA TORRES MD Ot M23.204 DERANG OF UNSP MEDIAL MENISCUS DUE TO OL 08/13/2017 LEYLA TORRES MD Ot Z01.818 ENCOUNTER FOR OTHER PREPROCEDURAL EXAMIN 08/17/2017 LEYLA TORRES MD Ot E78.5 HYPERLIPIDEMIA, UNSPECIFIED 08/17/2017 LEYLA TORRES MD Ot F17.210 NICOTINE DEPENDENCE, CIGARETTES, UNCOMPL 08/17/2017 LEYLA TORRES MD Ot G47.33 OBSTRUCTIVE SLEEP APNEA (ADULT) (PEDIATR 08/17/2017 LEYLA TORRES MD Ot I1 0 ESSENTIAL (PRIMARY) HYPERTENSION 08/17/2017 LEYLA TORRES MD Ot I25.10 ATHSCL HEART DISEASE OF [place] CORONARY 08/17/2017 LEYLA TORRES MD Ot J44.9 CHRONIC OBSTRUCTIVE PULMONARY DISEASE, U 08/17/2017 LEYLA TORRES MD Ot M23.252 DERANG OF [place] OF LAT MENSC DUE TO 08/17/2017 LEYLA TORRES MD Ot M94.262 CHONDROMALACIA, LEFT KNEE 08/17/2017 LEYLA TORRES MD Ot R56.9 UNSPECIFIED CONVULSIONS 08/17/2017 LEYLA TORRES MD Ot Z79.899 OTHER INTERMEDIATE (CURRENT) DRUG THERAPY 08/20/2017 WHITNEY THORNTON MD, Ot E78.00 PURE HYPERCHOLESTEROLEMIA, UNSPECIFIED 08/20/2017 NIKOLSKI MD, WHITNEY D Ot F17.210 NICOTINE DEPENDENCE, CIGARETTES, UNCOMPL 08/20/2017 WHITNEY THORNTON MD Ot F41.9 ANXIETY DISORDER, UNSPECIFIED 08/20/2017 WHITNEY [...] HYPERLIPIDEMIA, UNSPECIFIED 08/27/2017 TAYLER SUBRAMANIAN MD Ot F17.2 10 NICOTINE DEPENDENCE, CIGARETTES, UNCOMPL 08/27/2017 TAYLER SUBRAMANIAN MD Ot G40.9 09 EPILEPSY, UNSP, NOT INTRACTABLE, WITHOUT 08/27/2017 TAYLER SUBRAMANIAN MD Ot G47.3 3 OBSTRUCTIVE SLEEP APNEA (ADULT) (PEDIATR 08/27/2017 TAYLER SUBRAMANIAN MD Ot I10 ESSENTIAL (PRIMARY) HYPERTENSION 08/27/2017 TAYLER SUBRAMANIAN MD Ot I49.9 CARDIAC ARRHYTHMIA, UNSPECIFIED 08/27/2017 TAYLER SUBRAMANIAN MD, Ot J44.1 CHRONIC OBSTRUCTIVE PULMONARY DISEASE W 08/27/2017 TAYLER SUBRAMANIAN MD Ot R73.0 3 PREDIABETES 08/27/2017 TAYLER SUBRAMANIAN MD Ot Z23 ENCOUNTER FOR IMMUNIZATION 08/27/2017 TAYLER SUBRAMANIAN MD Ot Z79.8 2 HEALTHCARE ADMINISTRATOR (CURRENT) USE OF ASPIRIN 08/27/2017 TAYLER SUBRAMANIAN MD Ot Z79.8 99 OTHER HEALTHCARE ADMINISTRATOR (CURRENT) DRUG THERAPY 08/27/2017 TAYLER SUBRAMANIAN MD Ot E78.5 HYPERLIPIDEMIA, UNSPECIFIED 08/27/2017 TAYLER SUBRAMANIAN MD Ot F17.2 10 NICOTINE DEPENDENCE, CIGARETTES, UNCOMPL 08/27/2017 TAYLER SUBRAMANIAN MD Ot G40.9 09 EPILEPSY, UNSP, NOT INTRACTABLE, WITHOUT 08/27/2017 TAYLER SUBRAMANIAN MD Ot G47.3 3 OBSTRUCTIVE SLEEP APNEA (ADULT) (PEDIATR 08/27/2017 TAYLER SUBRAMANIAN MD Ot I10 ESSENTIAL (PRIMARY) HYPERTENSION 08/27/2017 TAYLER SUBRAMANIAN MD Ot I49.9 CARDIAC ARRHYTHMIA, UNSPECIFIED 08/27/2017 TAYLER SUBRAMANIAN MD Ot J44.1 CHRONIC OBSTRUCTIVE PULMONARY DISEASE W 08/27/2017 TAYLER SUBRAMANIAN MD Ot R73.0 3 PREDIABETES 08/27/2017 TAYLER SUBRAMANIAN MD Ot Z23 ENCOUNTER FOR IMMUNIZATION 08/27/2017 TAYLER SUBRAMANIAN MD Ot Z79.8 2 HEALTHCARE ADMINISTRATOR (CURRENT) USE OF ASPIRIN 08/27/2017 TAYLER SUBRAMANIAN MD Ot Z79.8 99 OTHER INTERMEDIATE (CURRENT) DRUG THERAPY 09/19/2017 CARMEN HOYOS APRN Ot F12.10 CANNABIS ABUSE, UNCOMPLICATED 09/19/2017 CARMEN HOYOS APRN Ot J44.9 CHRONIC OBSTRUCTIVE PULMONARY DISEASE, U 09/19/2017 CARMEN HOYOS APRN Ot Z72.0 TOBACCO USE 10/24/2017 CARMEN HOYOS APRN Ot F12.10 CANNABIS ABUSE, UNCOMPLICATED 10/24/2017 CARMEN HOYOS APRN Ot J44.9 CHRONIC OBSTRUCTIVE PULMONARY DISEASE, U 10/24/2017 CARMEN HOYOS APRN Ot Z72.0 TOBACCO USE 11/10/2017 CARMEN HOYOS APRN Ot F12.10 CANNABIS ABUSE, UNCOMPLICATED 11/10/2017 CARMEN HOYOS APRN Ot J44.9 CHRONIC OBSTRUCTIVE PULMONARY DISEASE, U 11/10/2017 CARMEN HOYOS APRN Ot Z72.0 TOBACCO USE 12/10/2017 ROAM STRICKLAND APRN Ot E78.00 PURE HYPERCHOLESTEROLEMIA, UNSPECIFIED 12/10/2017 ROMA STRICKLAND APRN Ot F17.210 NICOTINE DEPENDENCE, CIGARETTES, UNCOMPL 12/10/2017 ROMA STRICKLAND APRN Ot F41 .9 ANXIETY DISORDER, UNSPECIFIED 12/10/2017 ROMA STRICKLAND APRN Ot G40.909 EPILEPSY, UNSP, NOT INTRACTABLE, WITHOUT 12/10/2017 ROMA STRICKLAND APRN Ot I10 ESSENTIAL (PRIMARY) HYPERTENSION 12/10/2017 ROMA STRICKLAND APRN Ot J44 .1 CHRONIC OBSTRUCTIVE PULMONARY DISEASE W 12/10/2017 ROMA STRICKLAND APRN Ot J44 .9 CHRONIC OBSTRUCTIVE PULMONARY DISEASE, U 12/10/2017 ROMA STRICKLAND APRN Ot K21 .9 GASTRO-ESOPHAGEAL REFLUX DISEASE WITHOUT 12/10/2017 ROMA STRICKLAND APRN Ot R50 .9 FEVER, UNSPECIFIED 12/10/2017 ROMA STRICKLAND APRN Ot Z79.52 HEALTHCARE ADMINISTRATOR (CURRENT) USE OF SYSTEMIC STER 12/10/2017 ROMA STRICKLAND APRN Ot Z79.82 HEALTHCARE ADMINISTRATOR (CURRENT) USE OF ASPIRIN 12/12/2017 ROMA STRICKLAND APRN Ot E78.00 PURE HYPERCHOLESTEROLEMIA, UNSPECIFIED 12/12/2017 ROMA STRICKLAND APRN Ot F17.210 NICOTINE DEPENDENCE, CIGARETTES, UNCOMPL 12/12/2017 ROMA STRICKLAND APRN Ot F41 .9 ANXIETY DISORDER, UNSPECIFIED 12/12/2017 ROMA STRICKLAND APRN Ot G40.909 EPILEPSY, UNSP, NOT INTRACTABLE, WITHOUT 12/12/2017 ROMA STRICKLAND APRN Ot I10 ESSENTIAL (PRIMARY) HYPERTENSION 12/12/2017 ROMA STRICKLAND APRN Ot J44 .1 CHRONIC OBSTRUCTIVE PULMONARY DISEASE W 12/12/2017 ROMA STRICKLAND APRN Ot J44 .9 CHRONIC OBSTRUCTIVE PULMONARY DISEASE, U 12/12/2017 ROMA STRICKLAND APRN Ot K21 .9 GASTRO-ESOPHAGEAL REFLUX DISEASE WITHOUT 12/12/2017 ROMA STRICKLAND APRN Ot R50 .9 FEVER, UNSPECIFIED 12/12/2017 ROMA STRICKLAND APRN Ot Z79.52 HEALTHCARE ADMINISTRATOR (CURRENT) USE OF SYSTEMIC STER 12/12/2017 ROMA STRICKLAND APRN Ot Z79.82 HEALTHCARE ADMINISTRATOR (CURRENT) USE OF ASPIRIN 12/17/2017 CARMEN HOYOS APRN Ot F12.10 CANNABIS ABUSE, UNCOMPLICATED 12/17/2017 CARMEN HOYOS APRN Ot J44.9 CHRONIC OBSTRUCTIVE PULMONARY DISEASE, U 12/17/2017 CARMEN HOYOS PHARMACY BENEFIT MANAGER Ot Z72.0 TOBACCO USE 12/18/2017 CARMEN HOYOS PHARMACY BENEFIT MANAGER Ot F12.10 CANNABIS ABUSE, UNCOMPLICATED 12/18/2017 CARMEN HOYOS APRN Ot J44.9 CHRONIC OBSTRUCTIVE PULMONARY DISEASE, U 12/18/2017 CARMNE HOYOS APRN Ot Z72.0 TOBACCO USE 12/21/2017 CHYNA RAE MD Ot E78.00 PURE HYPERCHOLESTEROLEMIA, UNSPECIFIED 12/21/2017 CHYNA RAE MD Ot F12.10 CANNABIS ABUSE, UNCOMPLICATED 12/21/2017 CHYNA RAE MD Ot F17.210 NICOTINE DEPENDENCE, CIGARETTES, UNCOMPL 12/21/2017 CHYNA RAE MD Ot F41 .9 ANXIETY DISORDER, UNSPECIFIED 12/21/2017 CHYNA RAE MD Ot G40.909 EPILEPSY, UNSP, NOT INTRACTABLE, WITHOUT 12/21/2017 CHYNA RAE MD Ot G47.30 SLEEP APNEA, UNSPECIFIED 12/21/2017 CHYNA RAE MD Ot I10 ESSENTIAL (PRIMARY) HYPERTENSION 12/21/2017 CHYNA RAE MD Ot J44 .1 CHRONIC OBSTRUCTIVE PULMONARY DISEASE W 12/21/2017 CHYNA RAE MD Ot K21 .9 GASTRO-ESOPHAGEAL REFLUX DISEASE WITHOUT 12/21/2017 CHYNA RAE MD Ot Z79.52 INTERMEDIATE (CURRENT) USE OF SYSTEMIC STER 12/21/2017 CHYNA RAE MD Ot Z79.82 INTERMEDIATE (CURRENT) USE OF ASPIRIN 12/21/2017 CHYNA RAE MD Ot Z82.49 FAMILY HX OF [place]SCHE[place] HEART DIS AND OTH DI 12/21/2017 CHYNA RAE MD Ot Z88 .8 ALLERGY STATUS TO OTH DRUG/MEDS/BIOL SUB 12/25/2017 CHYNA RAE MD Ot E78.00 PURE HYPERCHOLESTEROLEMIA, UNSPECIFIED 12/25/2017 CHYNA RAE MD Ot F12.10 CANNABIS ABUSE, UNCOMPLICATED 12/25/2017 CHYNA RAE MD Ot F17.210 NICOTINE DEPENDENCE, CIGARETTES, UNCOMPL 12/25/2017 CHYNA RAE MD Ot F41 .9 ANXIETY DISORDER, UNSPECIFIED 12/25/2017 CHYNA RAE MD Ot G40.909 EPILEPSY, UNSP, NOT INTRACTABLE, WITHOUT 12/25/2017 CHYNA RAE MD Ot G47.30 SLEEP APNEA, UNSPECIFIED 12/25/2017 CHYNA RAE MD Ot I10 ESSENTIAL (PRIMARY) HYPERTENSION 12/25/2017 CHYNA RAE MD Ot J44 .1 CHRONIC OBSTRUCTIVE PULMONARY DISEASE W 12/25/2017 CHYNA RAE MD Ot K21 .9 GASTRO-ESOPHAGEAL REFLUX DISEASE WITHOUT 12/25/2017 CHYNA RAE MD Ot Z79.52 HEALTHCARE ADMINISTRATOR (CURRENT) USE OF SYSTEMIC STER 12/25/2017 CHYNA RAE MD Ot Z79.82 HEALTHCARE ADMINISTRATOR (CURRENT) USE OF ASPIRIN 12/25/2017 CHYNA RAE MD Ot Z82.49 FAMILY HX OF [place] HEART DIS AND OTH DI 12/25/2017 CHYNA RAE MD Ot Z88 .8 ALLERGY STATUS TO OTH DRUG/MEDS/BIOL SUB 12/27/2017 CHYNA RAE MD Ot E78.00 PURE HYPERCHOLESTEROLEMIA, UNSPECIFIED 12/27/2017 CHYNA RAE MD Ot F12.10 CANNABIS ABUSE, UNCOMPLICATED 12/27/2017 CHYNA RAE MD Ot F17.210 NICOTINE DEPENDENCE, CIGARETTES, UNCOMPL 12/27/2017 CHYNA RAE MD Ot F41 .9 ANXIETY DISORDER, UNSPECIFIED 12/27/2017 CHYNA RAE MD Ot G40.909 EPILEPSY, UNSP, NOT INTRACTABLE, WITHOUT 12/27/2017 CHYNA RAE MD Ot G47.30 SLEEP APNEA, UNSPECIFIED 12/27/2017 CHYNA RAE MD Ot I10 ESSENTIAL (PRIMARY) HYPERTENSION 12/27/2017 CHYNA RAE MD Ot J44 .1 CHRONIC OBSTRUCTIVE PULMONARY DISEASE W 12/27/2017 CHYNA RAE MD Ot K21 .9 GASTRO-ESOPHAGEAL REFLUX DISEASE WITHOUT 12/27/2017 CHYNA RAE MD Ot Z79.52 HEALTHCARE ADMINISTRATOR (CURRENT) USE OF SYSTEMIC STER 12/27/2017 CHYNA RAE MD Ot Z79.82 INTERMEDIATE (CURRENT) USE OF ASPIRIN 12/27/2017 CHYNA RAE MD Ot Z82.49 FAMILY HX OF ISCHE[place] HEART DIS AND OTH DI 12/27/2017 CHYNA RAE MD Ot Z88 .8 ALLERGY STATUS TO OTH DRUG/MEDS/BIOL SUB 01/03/2018 CARMEN HOYOS APRN Ot F12.10 CANNABIS ABUSE, UNCOMPLICATED 01/03/2018 CARMEN HOYOS APRN Ot J44.9 CHRONIC OBSTRUCTIVE PULMONARY DISEASE, U 01/03/2018 SOHAESA KIMINE Lupis PHARMACY BENEFIT MANAGER Ot Z72.0 TOBACCO USE 02/21/2018 SOHAESACARMEN E PHARMACY BENEFIT MANAGER Ot F12.10 CANNABIS ABUSE, UNCOMPLICATED 02/21/2018 SOHAESACARMEN E PHARMACY BENEFIT MANAGER Ot J44.9 CHRONIC OBSTRUCTIVE PULMONARY DISEASE, U 02/21/2018 SOHAESACARMEN E PHARMACY BENEFIT MANAGER Ot Z72.0 TOBACCO USE 03/09/2018 SOHA CARMEN Lupis PHARMACY BENEFIT MANAGER Ot F12.10 CANNABIS ABUSE, UNCOMPLICATED 03/09/2018 SOHAESACARMEN E PHARMACY BENEFIT MANAGER Ot J44.9 CHRONIC OBSTRUCTIVE PULMONARY DISEASE, U 03/09/2018 SOHAESACARMEN E PHARMACY BENEFIT MANAGER Ot Z72.0 TOBACCO USE 04/02/2018 SOHAESACARMEN Lupis PHARMACY BENEFIT MANAGER Ot F12.10 CANNABIS ABUSE, UNCOMPLICATED 04/02/2018 SOHAESA KIMINE Lupis PHARMACY BENEFIT MANAGER Ot J44.9 CHRONIC OBSTRUCTIVE PULMONARY DISEASE, U 04/02/2018 SOHAESACARMEN E PHARMACY BENEFIT MANAGER Ot Z72.0 TOBACCO USE 04/03/2018 SOHAESACARMEN E PHARMACY BENEFIT MANAGER Ot F12.10 CANNABIS ABUSE, UNCOMPLICATED 04/03/2018 SOHAESA KIMINE Lupis PHARMACY BENEFIT MANAGER Ot J44.9 CHRONIC OBSTRUCTIVE PULMONARY DISEASE, U 04/03/2018 SOHAESACARMEN Lupis PHARMACY BENEFIT MANAGER Ot Z72.0 TOBACCO USE 04/08/2018 SOHAESA KIMINE E PHARMACY BENEFIT MANAGER Ot F12.10 CANNABIS ABUSE, UNCOMPLICATED 04/08/2018 SOHAESA KIMINE Lupis PHARMACY BENEFIT MANAGER Ot J44.9 CHRONIC OBSTRUCTIVE PULMONARY DISEASE, U 04/08/2018 CARMEN HOYOS PHARMACY BENEFIT MANAGER Ot Z72.0 TOBACCO USE 05/03/2018 LANG HUDSON [...] LABORATORY E 05/08/2018 LANG HUDSON DO Ot Z11. 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 33 OBSTRUCTIVE SLEEP APNEA (ADULT) (PEDIATR 05/08/2018 ALNG HUDSON DO Ot I10 ESSENTIAL (PRIMARY) HYPERTENSION 05/08/2018 LANG HUDSON DO Ot I25. 10 ATHSCL HEART DISEASE OF [place] CORONARY 05/08/2018 LANG HUDSON DO Ot J44. 9 CHRONIC OBSTRUCTIVE PULMONARY DISEASE, U 05/08/2018 LANG HUDSON DO Ot K62. 5 HEMORRHAGE OF ANUS AND RECTUM 05/08/2018 LANG HUDSON DO Ot K63. 5 POLYP OF COLON 05/08/2018 LANG HUDSON DO Ot K64. 8 OTHER HEMORRHOIDS 05/08/2018 LANG HUDSON DO Ot Z79. 82 HEALTHCARE ADMINISTRATOR (CURRENT) USE OF ASPIRIN 05/08/2018 LANG HUDSON DO Ot Z79.899 OTHER HEALTHCARE ADMINISTRATOR (CURRENT) DRUG THERAPY 05/08/2018 LANG HUDSON DO Ot Z80. 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 33 OBSTRUCTIVE SLEEP APNEA (ADULT) (PEDIATR 05/10/2018 LANG HUDSON DO Ot I10 ESSENTIAL (PRIMARY) HYPERTENSION 05/10/2018 LANG HUDSON DO Ot I25. 10 ATHSCL HEART DISEASE OF [place] CORONARY 05/10/2018 LANG HUDSON DO Ot J44. 9 CHRONIC OBSTRUCTIVE PULMONARY DISEASE, U 05/10/2018 LANG HUDSON DO Ot K62. 5 HEMORRHAGE OF ANUS AND RECTUM 05/10/2018 LANG HUDSON DO Ot K63. 5 POLYP OF COLON 05/10/2018 LANG HUDSON DO Ot K64. 8 OTHER HEMORRHOIDS 05/10/2018 LANG HUDSON DO Ot Z79. 82 INTERMEDIATE (CURRENT) USE OF ASPIRIN 05/10/2018 LANG HUDSON DO Ot Z79.899 OTHER INTERMEDIATE (CURRENT) DRUG THERAPY 05/10/2018 LANG HUDSON DO Ot Z80. 0 FAMILY HISTORY OF MALIGNANT NEOPLASM OF 07/17/2018 SHAKA ERAZO FACC, KAMRYN CALVO CCDS Ot I25.10 ATHSCL HEART DISEASE OF [place] CORONARY 07/17/2018 SHAKA ERAZO FACC, KAMRYN CALVO CCDS Ot I25.10 ATHSCL HEART DISEASE OF [place] CORONARY 07/18/2018 RENETTA CARDOZA Ot 611.72 LUMP OR MASS IN BREAST 07/18/2018 RENETTA CARDOZA Ot V16.3 FAMILY HX-BREAST MALIG 07/18/2018 TRISTAN MYRICKLANG Ot T82.118A BREAKDOWN (MECHANICAL) OF CARDIAC ELECTR 07/18/2018 TRISTAN MYRICKLANG Ot Z01.810 ENCOUNTER FOR PREPROCEDURAL CARDIOVASCUL 07/18/2018 TRISTAN MYRICKLANG Ot Z01.812 ENCOUNTER FOR PREPROCEDURAL LABORATORY E 07/18/2018 TRISTAN MYRICKLANG Ot Z11. 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 07/18/2018 SHAKA ERAZO FACC, ALI FACP CCDS Ot R06.02 SHORTNESS OF BREATH 07/18/2018 CARMEN HOYOS APRN Ot F12.10 CANNABIS ABUSE, UNCOMPLICATED 07/18/2018 CARMEN HOYOS APRN Ot J44.9 CHRONIC OBSTRUCTIVE PULMONARY DISEASE, U 07/18/2018 CARMEN HOYOS APRN Ot Z72.0 TOBACCO USE 07/18/2018 SHAKA ERAZO FACC, KAMRYN FACP CCDS Ot I25.10 ATHSCL HEART DISEASE OF [place] CORONARY 07/18/2018 SHAKA ERAZO FACC, ALI FACP CCDS Ot I25.10 ATHSCL HEART DISEASE OF [place] CORONARY 07/20/2018 SHAKA ERAZO FACC, ALI FACP CCDS Ot I25.10 ATHSCL HEART DISEASE OF [place] CORONARY 07/23/2018 SHAKA ERAZO FACC, ALI FACP CCDS Ot E78.5 HYPERLIPIDEMIA, UNSPECIFIED 07/23/2018 SHAKA ERAZO FACC, ALI FACP CCDS Ot I25.10 ATHSCL HEART DISEASE OF [place] CORONARY 07/23/2018 SHAKA ERAZO FACC, ALI FACP CCDS Ot I73.9 PERIPHERAL VASCULAR DISEASE, UNSPECIFIED 07/23/2018 SHAKA MD FACC, ALI FACP CCDS Ot I77.89 OTHER SPECIFIED DISORDERS OF ARTERIES AN 07/23/2018 SAHKA ERAZO FACC, ALI FACP CCDS Ot R06.02 SHORTNESS OF BREATH 07/23/2018 SHAKA ERAZO FACC, ALI FACP CCDS Ot Z72.0 TOBACCO USE 07/23/2018 SHAKA MD FACC, ALI FACP CCDS Ot E78.5 HYPERLIPIDEMIA, UNSPECIFIED 07/23/2018 SHAKA MD FACC, ALI FACP CCDS Ot I25.10 ATHSCL HEART DISEASE OF [place] CORONARY 07/23/2018 SHAKA ERAZO FACC, ALI FACP CCDS Ot I73.9 PERIPHERAL VASCULAR DISEASE, UNSPECIFIED 07/23/2018 SHAKA MD FACC, ALI FACP CCDS Ot I77.89 OTHER SPECIFIED DISORDERS OF ARTERIES AN 07/23/2018 SHAKA ERAZO FAC, ALI FACP CCDS Ot R06.02 SHORTNESS OF BREATH 07/23/2018 SHAKA ERAZO [facility], ALI FACP CCDS Ot Z72.0 TOBACCO USE 07/24/2018 RENETTA CARDOZA Ot 611.72 LUMP OR MASS IN BREAST 07/24/2018 RENETTA CARDOZA Ot V16.3 FAMILY HX-BREAST MALIG 07/24/2018 LANG HUDSON DO Ot T82.118A BREAKDOWN (MECHANICAL) OF CARDIAC ELECTR 07/24/2018 LANG HUDSON DO Ot Z01.810 ENCOUNTER FOR PREPROCEDURAL CARDIOVASCUL 07/24/2018 LANG HUDSON DO Ot Z01.812 ENCOUNTER FOR PREPROCEDURAL LABORATORY E 07/24/2018 LANG HUDSON DO Ot Z11. 2 ENCOUNTER FOR SCREENING FOR OTHER BACTER 07/24/2018 [...] CCDS Ot I25.10 ATHSCL HEART DISEASE OF [place] CORONARY 07/24/2018 SHAKA ERAZO FACC, ALI FACP [...] CCDS Ot I25.10 ATHSCL HEART DISEASE OF [place] CORONARY 07/24/2018 SHAKA REES, ALI FACP CCDS Ot I73.9 PERIPHERAL VASCULAR DISEASE, UNSPECIFIED 07/24/2018 SHAKA REES, ALI FACP CCDS Ot I77.89 OTHER SPECIFIED DISORDERS OF ARTERIES AN 07/24/2018 SHAKA ERAZO FACC, ALI FACP CCDS Ot R06.02 SHORTNESS OF BREATH 07/24/2018 SHAKA ERAZO FACC, ALI FACP CCDS Ot Z72.0 TOBACCO USE 07/24/2018 SHAKA ERAZO FACC, ALI FACP CCDS Ot I25.10 ATHSCL HEART DISEASE OF [place] CORONARY 07/26/2018 SHAKA REES, ALI FACP CCDS Ot I25.10 ATHSCL HEART DISEASE OF [place] CORONARY 07/26/2018 RENETTA CARDOZA Ot 611.72 LUMP OR MASS IN BREAST 07/26/2018 RENETTA CARDOZA Ot V16.3 FAMILY HX-BREAST MALIG 07/26/2018 LANG HUDSON DO Ot T82.118A BREAKDOWN (MECHANICAL) OF CARDIAC ELECTR 07/26/2018 LANG HUDSON DO Ot Z01.810 ENCOUNTER FOR PREPROCEDURAL CARDIOVASCUL 07/26/2018 LANG HUDSON DO Ot Z01.812 ENCOUNTER FOR PREPROCEDURAL LABORATORY E 07/26/2018 LANG HUDSON DO Ot Z11. 2 ENCOUNTER FOR SCREENING FOR OTHER BACTER 07/26/2018 CARMEN HOYOS APRN Ot F17.200 NICOTINE DEPENDENCE, UNSPECIFIED, UNCOMP 07/26/2018 CARMEN HOYOS APRN Ot J44.9 CHRONIC OBSTRUCTIVE PULMONARY DISEASE, U 07/26/2018 CARMEN HOYOS APRN Ot R06.00 DYSPNEA, UNSPECIFIED 07/26/2018 RENETTA CADROZAP Ot M25.561 PAIN IN RIGHT KNEE 07/26/2018 SHAKA ERAZO FACC, ALI FACP CCDS Ot E78.5 HYPERLIPIDEMIA, UNSPECIFIED 07/26/2018 SHAKA ERAZO FACC, ALI FACP CCDS Ot I25.10 ATHSCL HEART DISEASE OF [place] CORONARY 07/26/2018 SHAKA ERAZO FACC, ALI FACP [...] CCDS Ot I25.10 ATHSCL HEART DISEASE OF [place] CORONARY 07/26/2018 SHAKA ERAZO FACC, ALI FACP CCDS Ot I73.9 PERIPHERAL VASCULAR DISEASE, UNSPECIFIED 07/26/2018 SHAKA ERAZO FACC, ALI FACP CCDS Ot I77.89 OTHER SPECIFIED DISORDERS OF ARTERIES AN 07/26/2018 SHAKA ERAZO FACC, ALI FACP CCDS Ot R06.02 SHORTNESS OF BREATH 07/26/2018 SHAKA ERAZO FACC, ALI FACP CCDS Ot Z72.0 TOBACCO USE 07/26/2018 SHAKA ERAZO FACC, ALI FACP CCDS Ot I25.10 ATHSCL HEART DISEASE OF [place] CORONARY 07/26/2018 SHAKA MD FACC, ALI FACP CCDS Ot E78.5 HYPERLIPIDEMIA, UNSPECIFIED 07/26/2018 SHAKA ERAZO FACC, ALI FACP CCDS Ot I25.10 ATHSCL HEART DISEASE OF [place] CORONARY 07/26/2018 SHAKA ERAZO FACC, ALI FACP CCDS Ot I73.9 PERIPHERAL VASCULAR DISEASE, UNSPECIFIED 07/26/2018 SHAKA ERAZO FACC, ALI FACP CCDS Ot I77.89 OTHER SPECIFIED DISORDERS OF ARTERIES AN 07/26/2018 SHAKA ERAZO FACC, ALI FACP CCDS Ot R06.02 SHORTNESS OF BREATH 07/26/2018 SHAKA ERAZO FACC, ALI FACP CCDS Ot Z72.0 TOBACCO USE 08/03/2018 SHAKA ERAZO FACC, ALI FACP CCDS Ot E78.5 HYPERLIPIDEMIA, UNSPECIFIED 08/03/2018 SHAKA ERAZO FACC, ALI FACP CCDS Ot I25.10 ATHSCL HEART DISEASE OF [place] CORONARY 08/03/2018 SHAKA ERAZO FACC, ALI FACP CCDS Ot I73.9 PERIPHERAL VASCULAR DISEASE, UNSPECIFIED 08/03/2018 SHAKA ERAZO FACC, ALI FACP CCDS Ot I77.89 OTHER SPECIFIED DISORDERS OF ARTERIES AN 08/03/2018 SHAKA ERAZO FACC, ALI FACP CCDS Ot R06.02 SHORTNESS OF BREATH 08/03/2018 SHAKA ERAZO FACC, ALI FACP CCDS Ot Z72.0 TOBACCO USE 08/10/2018 SHAKA REESC, ALI FACP CCDS Ot E78.4 OTHER HYPERLIPIDEMIA 08/10/2018 SHAKA REESC, ALI FACP CCDS Ot F17.200 NICOTINE DEPENDENCE, UNSPECIFIED, UNCOMP 08/10/2018 SHAKA REESC, ALI FACP CCDS Ot I10 ESSENTIAL (PRIMARY) HYPERTENSION 08/10/2018 SHAKA REESC, ALI FACP CCDS Ot I25.10 ATHSCL HEART DISEASE OF [place] CORONARY 08/10/2018 SHAKA REESC, ALI FACP CCDS Ot 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 08/10/2018 SHAKA ERAZO FACC, ALI FACP CCDS Ot I70.213 ATHSCL [place] ARTERIES OF EXTRM W INTRMT 08/10/2018 SHAKA REESC, ALI FACP CCDS Ot E78.4 OTHER HYPERLIPIDEMIA 08/10/2018 SHAKA REESC, ALI FACP CCDS Ot F17.200 NICOTINE DEPENDENCE, UNSPECIFIED, UNCOMP 08/10/2018 SHAKA ERAZO FACC, ALI FACP CCDS Ot I10 ESSENTIAL (PRIMARY) HYPERTENSION 08/10/2018 SHAKA MD FACC, ALI FACP CCDS Ot I25.10 ATHSCL HEART DISEASE OF [place] CORONARY 08/10/2018 SHAKA MD FACC, ALI FACP CCDS Ot 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 08/10/2018 SHAKA MD FACC, ALI FACP CCDS Ot I70.213 ATHSCL [place] ARTERIES OF EXTRM W INTRMT 08/21/2018 SHAKA MD FACC, ALI FACP CCDS Ot E78.4 OTHER HYPERLIPIDEMIA 08/21/2018 SHAKA MD FACC, ALI FACP CCDS Ot F17.200 NICOTINE DEPENDENCE, UNSPECIFIED, UNCOMP 08/21/2018 SHAKA MD FACC, ALI FACP CCDS Ot I10 ESSENTIAL (PRIMARY) HYPERTENSION 08/21/2018 SHAKA MD FACC, ALI FACP CCDS Ot I25.10 ATHSCL HEART DISEASE OF [place] CORONARY 08/21/2018 SHAKA ERAZO FACC, ALI FACP CCDS Ot 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 08/21/2018 SHAKA ERAZO FACC, ALI FACP CCDS Ot I70.213 ATHSCL [place] ARTERIES OF EXTRM W INTRMT 08/22/2018 NWAGWU, VEEDORE Billy PHARMACY BENEFIT MANAGER Ot N43.3 HYDROCELE, UNSPECIFIED 09/06/2018 NWAGWU ISIDORE O PHARMACY BENEFIT MANAGER Ot N43.3 HYDROCELE, UNSPECIFIED 11/14/2018 LANG HUDSON DO Ot Z01.818 ENCOUNTER FOR OTHER PREPROCEDURAL EXAMIN 11/16/2018 LANG HUDSON DO Ot Z01.818 ENCOUNTER FOR OTHER PREPROCEDURAL EXAMIN 11/16/2018 LANG HUDSON DO Ot Z01.818 ENCOUNTER FOR OTHER PREPROCEDURAL EXAMIN 11/20/2018 LANG HUDSON DO Ot 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 9 OBESITY, UNSPECIFIED 11/20/2018 LANG HUDSON DO Ot E78. 5 HYPERLIPIDEMIA, UNSPECIFIED 11/20/2018 LANG HUDSON DO Ot F17.210 NICOTINE DEPENDENCE, CIGARETTES, UNCOMPL 11/20/2018 LANG HUDSON DO Ot G47. 33 OBSTRUCTIVE SLEEP APNEA (ADULT) (PEDIATR 11/20/2018 LANG HUDSON DO Ot I10 ESSENTIAL (PRIMARY) HYPERTENSION 11/20/2018 LANG HUDSON DO Ot I25. 10 ATHSCL HEART DISEASE OF [place] CORONARY 11/20/2018 LAGN HUDSON DO Ot J44. 9 CHRONIC OBSTRUCTIVE PULMONARY DISEASE, U 11/20/2018 LANG HUDSON DO Ot K21. 9 GASTRO-ESOPHAGEAL REFLUX DISEASE WITHOUT 11/20/2018 LANG HUDSON DO Ot K62. 1 RECTAL POLYP 11/20/2018 LANG HUDSON DO Ot R56. 9 UNSPECIFIED CONVULSIONS 11/20/2018 LANG HUDSON DO Ot Z12. 11 ENCOUNTER FOR SCREENING FOR MALIGNANT NE 11/20/2018 LANG HUDSON DO Ot Z68. 36 BODY MASS INDEX (BMI) 36.0-36.9, ADULT 11/20/2018 LANG HUDSON DO Ot Z79. 02 HEALTHCARE ADMINISTRATOR (CURRENT) USE OF ANTITHROMBOTI 11/20/2018 LANG HUDSON DO Ot Z79. 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 9 OBESITY, UNSPECIFIED 11/22/2018 LANG HUDSON DO Ot E78. 5 HYPERLIPIDEMIA, UNSPECIFIED 11/22/2018 LANG HUDSON DO Ot F17.210 NICOTINE DEPENDENCE, CIGARETTES, UNCOMPL 11/22/2018 LANG HUDSON DO Ot G47. 33 OBSTRUCTIVE SLEEP APNEA (ADULT) (PEDIATR 11/22/2018 LANG HUDSON DO Ot I10 ESSENTIAL (PRIMARY) HYPERTENSION 11/22/2018 LANG HUDSON DO Ot I25. 10 ATHSCL HEART DISEASE OF [place] CORONARY 11/22/2018 LANG HUDSON DO Ot J44. 9 CHRONIC OBSTRUCTIVE PULMONARY DISEASE, U 11/22/2018 LANG HUDSON DO Ot K21. 9 GASTRO-ESOPHAGEAL REFLUX DISEASE WITHOUT 11/22/2018 LANG HUDSON DO Ot K62. 1 RECTAL POLYP 11/22/2018 LANG HUDSON DO Ot R56. 9 UNSPECIFIED CONVULSIONS 11/22/2018 LANG HUDSON DO Ot Z12. 11 ENCOUNTER FOR SCREENING FOR MALIGNANT NE 11/22/2018 LANG HUDSON DO Ot Z68. 36 BODY MASS INDEX (BMI) 36.0-36.9, ADULT 11/22/2018 LANG HUDSON DO Ot Z79. 02 INTERMEDIATE (CURRENT) USE OF ANTITHROMBOTI 11/22/2018 LANG HUDSON DO Ot Z79. 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 9 OBESITY, UNSPECIFIED 11/23/2018 LANG HUDSON DO Ot E78. 5 HYPERLIPIDEMIA, UNSPECIFIED 11/23/2018 LANG HUDSON DO Ot F17.210 NICOTINE DEPENDENCE, CIGARETTES, UNCOMPL 11/23/2018 LANG HUDSON DO Ot G47. 33 OBSTRUCTIVE SLEEP APNEA (ADULT) (PEDIATR 11/23/2018 LANG HUDSON DO Ot I10 ESSENTIAL (PRIMARY) HYPERTENSION 11/23/2018 LANG HUDSON DO Ot I25. 10 ATHSCL HEART DISEASE OF [place] CORONARY 11/23/2018 LANG HUDSON DO Ot J44. 9 CHRONIC OBSTRUCTIVE PULMONARY DISEASE, U 11/23/2018 LANG HUDSON DO Ot K21. 9 GASTRO-ESOPHAGEAL REFLUX DISEASE WITHOUT 11/23/2018 LANG HUDSON DO Ot K62. 1 RECTAL POLYP 11/23/2018 LANG HUDSON DO Ot R56. 9 UNSPECIFIED CONVULSIONS 11/23/2018 LANG HUDSON DO Ot Z12. 11 ENCOUNTER FOR SCREENING FOR MALIGNANT NE 11/23/2018 LANG HUDSON DO Ot Z68. 36 BODY MASS INDEX (BMI) 36.0-36.9, ADULT 11/23/2018 LANG HUDSON DO Ot Z79. 02 INTERMEDIATE (CURRENT) USE OF ANTITHROMBOTI 11/23/2018 LANG HUDSON DO Ot Z79. 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 9 OBESITY, UNSPECIFIED 11/26/2018 LANG HUDSON DO Ot E78. 5 HYPERLIPIDEMIA, UNSPECIFIED 11/26/2018 LANG HUDSON DO Ot F17.210 NICOTINE DEPENDENCE, CIGARETTES, UNCOMPL 11/26/2018 LANG HUDSON DO Ot G47. 33 OBSTRUCTIVE SLEEP APNEA (ADULT) (PEDIATR 11/26/2018 LANG HUDSON DO Ot I10 ESSENTIAL (PRIMARY) HYPERTENSION 11/26/2018 LANG HUDSON DO Ot I25. 10 ATHSCL HEART DISEASE OF [place] CORONARY 11/26/2018 LANG HUDSON DO Ot J44. 9 CHRONIC OBSTRUCTIVE PULMONARY DISEASE, U 11/26/2018 LANG HUDSON DO Ot K21. 9 GASTRO-ESOPHAGEAL REFLUX DISEASE WITHOUT 11/26/2018 LANG HUDSON DO Ot K62. 1 RECTAL POLYP 11/26/2018 LANG HUDSON DO Ot R56. 9 UNSPECIFIED CONVULSIONS 11/26/2018 LANG HUDSON DO Ot Z12. 11 ENCOUNTER FOR SCREENING FOR MALIGNANT NE 11/26/2018 LANG HUDSON DO Ot Z68. 36 BODY MASS INDEX (BMI) 36.0-36.9, ADULT 11/26/2018 LANG HUDSON DO Ot Z79. 02 INTERMEDIATE (CURRENT) USE OF ANTITHROMBOTI 11/26/2018 LANG HUDSON DO Ot Z79. 82 INTERMEDIATE (CURRENT) USE OF ASPIRIN 11/26/2018 LANG HUDSON DO Ot Z79.899 OTHER HEALTHCARE ADMINISTRATOR (CURRENT) DRUG THERAPY 03/20/2019 SHAKA ERAZO FACC, KAMRYN CALVO CCDS Ot E78.1 PURE HYPERGLYCERIDEMIA 03/20/2019 SHAKA ERAZO FACC, KAMRYN REESP CCDS Ot E78.5 HYPERLIPIDEMIA, UNSPECIFIED 03/20/2019 SHAKA ERAZO FACC, ALI FACP CCDS Ot F12.10 CANNABIS ABUSE, UNCOMPLICATED 03/20/2019 SHAKA ERAZO FACC, ALI FACP CCDS Ot F17.210 NICOTINE DEPENDENCE, CIGARETTES, UNCOMPL 03/20/2019 SHAKA ERAZO FACC, ALI FACP CCDS Ot G47.30 SLEEP APNEA, UNSPECIFIED 03/20/2019 SHAKA ERAZO FACC, ALI FACP CCDS Ot I10 ESSENTIAL (PRIMARY) HYPERTENSION 03/20/2019 SHAKA ERAZO FACC, ALI FACP CCDS Ot I25.10 ATHSCL HEART DISEASE OF [place] CORONARY 03/20/2019 SHAKA ERAZO FACC, ALI FACP CCDS Ot I65.29 OCCLUSION AND STENOSIS OF UNSPECIFIED CA 03/20/2019 SHAKA ERAZO FACC, ALI FACP CCDS Ot I70.203 UNSP ATHSCL [place] ARTERIES OF EXTREMITI 03/20/2019 SHAKA ERAZO FACC, ALI FACP CCDS Ot I77.9 DISORDER OF ARTERIES AND ARTERIOLES, UNS 03/20/2019 SHAKA ERAZO FACC, ALI FACP CCDS Ot J44.9 CHRONIC OBSTRUCTIVE PULMONARY DISEASE, U 03/20/2019 SHAKA ERAZO FACC, ALI FACP CCDS Ot N52.9 MALE ERECTILE DYSFUNCTION, UNSPECIFIED 03/20/2019 SHAKA ERAZO FACC, ALI FACP CCDS Ot Z79.82 INTERMEDIATE (CURRENT) USE OF ASPIRIN 03/20/2019 SHAKA ERAZO FACC, KAMRYN FACP CCDS Ot Z79.899 OTHER INTERMEDIATE (CURRENT) DRUG THERAPY 03/20/2019 SHAKA ERAZO FACC, ALI FACP CCDS Ot Z91.19 PATIENT'S NONCOMPLIANCE W [facility] 03/23/2019 SHAKA ERAZO FACC, KAMRYN FACP CCDS Ot E78.1 PURE HYPERGLYCERIDEMIA 03/23/2019 SHAKA ERAZO FACC, ALI FACP CCDS Ot E78.5 HYPERLIPIDEMIA, UNSPECIFIED 03/23/2019 SHAKA ERAZO FACC, ALI FACP CCDS Ot F12.10 CANNABIS ABUSE, UNCOMPLICATED 03/23/2019 SHAKA ERAZO FACC, ALI FACP CCDS Ot F17.210 NICOTINE DEPENDENCE, CIGARETTES, UNCOMPL 03/23/2019 SHAKA ERAZO FACC, ALI FACP CCDS Ot G47.30 SLEEP APNEA, UNSPECIFIED 03/23/2019 SHAKA ERAZO FACC, ALI FACP CCDS Ot I10 ESSENTIAL (PRIMARY) HYPERTENSION 03/23/2019 SHAKA ERAZO FACC, KAMRYN FACP CCDS Ot I25.10 ATHSCL HEART DISEASE OF [place] CORONARY 03/23/2019 SHAKA ERAZO FACC, ALI FACP CCDS Ot I65.29 OCCLUSION AND STENOSIS OF UNSPECIFIED CA 03/23/2019 SHAKA ERAZO FACC, ALI FACP CCDS Ot I70.203 UNSP ATHSCL [place] ARTERIES OF EXTREMITI 03/23/2019 SHAKA ERAZO FACC, ALI FACP CCDS Ot I77.9 DISORDER OF ARTERIES AND ARTERIOLES, UNS 03/23/2019 SHAKA ERAZO FACC, ALI FACP CCDS Ot J44.9 CHRONIC OBSTRUCTIVE PULMONARY DISEASE, U 03/23/2019 SHAKA ERAZO FACC, ALI FACP CCDS Ot N52.9 MALE ERECTILE DYSFUNCTION, UNSPECIFIED 03/23/2019 SHAKA ERAZO FACC, ALI FACP CCDS Ot Z79.82 HEALTHCARE ADMINISTRATOR (CURRENT) USE OF ASPIRIN 03/23/2019 SHAKA ERAZO FACC, KAMRYN FACP CCDS Ot Z79.899 OTHER INTERMEDIATE (CURRENT) DRUG THERAPY 03/23/2019 SHAKA ERAZO FACC, ALI FACP CCDS Ot Z91.19 PATIENT'S NONCOMPLIANCE W [facility] 04/12/2019 RENETTA CARDOZA Ot 611.72 LUMP OR MASS IN BREAST 04/12/2019 RENETTA CARDOZA Ot V16.3 FAMILY HX-BREAST MALIG 04/12/2019 LANG HUDSON DO Ot T82.118A BREAKDOWN (MECHANICAL) OF CARDIAC ELECTR 04/12/2019 LANG HUDSON DO Ot Z01.810 ENCOUNTER FOR PREPROCEDURAL CARDIOVASCUL 04/12/2019 LANG HUDSON DO Ot Z01.812 ENCOUNTER FOR PREPROCEDURAL LABORATORY E 04/12/2019 LANG HUDSON DO Ot Z11. 2 ENCOUNTER FOR SCREENING FOR OTHER BACTER 04/12/2019 CARMEN HOYOS APRN Ot F17.200 NICOTINE DEPENDENCE, UNSPECIFIED, UNCOMP 04/12/2019 CARMEN HOYOS APRN Ot J44.9 CHRONIC OBSTRUCTIVE PULMONARY DISEASE, U 04/12/2019 CARMEN HOYOS APRN Ot R06.00 DYSPNEA, UNSPECIFIED 04/12/2019 RENETTA CARDOZA Ot M25.561 PAIN IN RIGHT KNEE 04/12/2019 SHAKA ERAZO FACC, ALI FACP CCDS Ot E78.5 HYPERLIPIDEMIA, UNSPECIFIED 04/12/2019 SHAKA ERAZO FACC, ALI FACP CCDS Ot I25.10 ATHSCL HEART DISEASE OF [place] CORONARY 04/12/2019 SHAKA ERAZO FACC, ALI FACP CCDS Ot 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 04/12/2019 SHAKA ERAZO FACC, ALI FACP CCDS Ot R06.02 SHORTNESS OF BREATH 04/12/2019 CARMEN HOYOS APRN Ot F12.10 CANNABIS ABUSE, UNCOMPLICATED 04/12/2019 CARMEN HOYOS APRN Ot J44.9 CHRONIC OBSTRUCTIVE PULMONARY DISEASE, U 04/12/2019 CARMEN HOYOS APRN Ot Z72.0 TOBACCO USE 04/12/2019 SHAKA ERAZO FACC, KAMRYN FACP CCDS Ot E78.5 HYPERLIPIDEMIA, UNSPECIFIED 04/12/2019 SHAKA ERAZO FACC, ALI FACP CCDS Ot I25.10 ATHSCL HEART DISEASE OF [place] CORONARY 04/12/2019 SHAKA ERAZO FACC, ALI FACP CCDS Ot I73.9 PERIPHERAL VASCULAR DISEASE, UNSPECIFIED 04/12/2019 SHAKA ERAZO FACC, ALI FACP CCDS Ot I77.89 OTHER SPECIFIED DISORDERS OF ARTERIES AN 04/12/2019 SHAKA ERAZO FACC, ALI FACP CCDS Ot R06.02 SHORTNESS OF BREATH 04/12/2019 SHAKA ERAZO FACC, ALI FACP CCDS Ot Z72.0 TOBACCO USE 04/12/2019 SHAKA ERAZO FACC, ALI FACP CCDS Ot E78.4 OTHER HYPERLIPIDEMIA 04/12/2019 SHAKA ERAZO FACC, ALI FACP CCDS Ot F17.200 NICOTINE DEPENDENCE, UNSPECIFIED, UNCOMP 04/12/2019 SHAKA ERAZO FACC, ALI FACP CCDS Ot I10 ESSENTIAL (PRIMARY) HYPERTENSION 04/12/2019 SHAKA ERAZO FACC, ALI FACP CCDS Ot I25.10 ATHSCL HEART DISEASE OF [place] CORONARY 04/12/2019 SHAKA ERAZO FACC, ALI FACP CCDS Ot 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 04/12/2019 SHAKA ERAZO FACC, ALI FACP CCDS Ot I70.213 ATHSCL [place] ARTERIES OF EXTRM W INTRMT 04/12/2019 ELIF MARIEE APRN Ot N43.3 HYDROCELE, UNSPECIFIED 04/17/2019 BAIMA, ELIS L WEIGHT GUESSER Ot E78.5 HYPERLIPIDEMIA, UNSPECIFIED 04/17/2019 BAIMA, ELIS L WEIGHT GUESSER Ot F12.10 CANNABIS ABUSE, UNCOMPLICATED 04/17/2019 BAIMA, ELIS L WEIGHT GUESSER Ot G40.909 EPILEPSY, UNSP, NOT INTRACTABLE, WITHOUT 04/17/2019 BAIMA, ELIS L WEIGHT GUESSER Ot G47.30 SLEEP APNEA, UNSPECIFIED 04/17/2019 BAIMA, ELIS L WEIGHT GUESSER Ot I25.10 ATHSCL HEART DISEASE OF [place] CORONARY 04/17/2019 BAIMA, ELIS L WEIGHT GUESSER Ot I65.29 OCCLUSION AND STENOSIS OF UNSPECIFIED CA 04/17/2019 BAIMA, ELIS L WEIGHT GUESSER Ot 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 [facility] 04/17/2019 BAIMA, ELIS L WEIGHT GUESSER Ot N52.9 MALE ERECTILE DYSFUNCTION, UNSPECIFIED 04/17/2019 BAIMA, ELIS L WEIGHT GUESSER Ot Z79.02 INTERMEDIATE (CURRENT) USE OF ANTITHROMBOTI 04/17/2019 BAIMA, ELIS L WEIGHT GUESSER Ot Z79.82 HEALTHCARE ADMINISTRATOR (CURRENT) USE OF ASPIRIN 04/17/2019 BAIMA, ELIS L WEIGHT GUESSER Ot Z79.899 OTHER INTERMEDIATE (CURRENT) DRUG THERAPY 04/17/2019 BAIMA, ELIS L WEIGHT GUESSER Ot Z91.14 PATIENT'S OTHER NONCOMPLIANCE WITH MEDIC 04/21/2019 BAIMA, ELIS L WEIGHT GUESSER Ot E78.5 HYPERLIPIDEMIA, UNSPECIFIED 04/21/2019 BAIMA, ELIS L WEIGHT GUESSER Ot F12.10 CANNABIS ABUSE, UNCOMPLICATED 04/21/2019 BAIMA, ELIS L WEIGHT GUESSER Ot G40.909 EPILEPSY, UNSP, NOT INTRACTABLE, WITHOUT 04/21/2019 BAIMA, ELIS L WEIGHT GUESSER Ot G47.30 SLEEP APNEA, UNSPECIFIED 04/21/2019 BAIMA, ELIS L WEIGHT GUESSER Ot I25.10 ATHSCL HEART DISEASE OF [place] CORONARY 04/21/2019 BAIMA, ELIS L WEIGHT GUESSER Ot I65.29 OCCLUSION AND STENOSIS OF UNSPECIFIED CA 04/21/2019 BAIMA, ELIS L WEIGHT GUESSER Ot 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 [facility] 04/21/2019 BAIELIS RASHID WEIGHT GUESSER Ot N52.9 MALE ERECTILE DYSFUNCTION, UNSPECIFIED 04/21/2019 VALENTE ELIS L WEIGHT GUESSER Ot Z79.02 INTERMEDIATE (CURRENT) USE OF ANTITHROMBOTI 04/21/2019 JETMA ELIS L WEIGHT GUESSER Ot Z79.82 HEALTHCARE ADMINISTRATOR (CURRENT) USE OF ASPIRIN 04/21/2019 BAIMA, ELIS L WEIGHT GUESSER Ot Z79.899 OTHER INTERMEDIATE (CURRENT) DRUG THERAPY 04/21/2019 BAIMA ELIS L WEIGHT GUESSER Ot Z91.14 PATIENT'S OTHER NONCOMPLIANCE WITH MEDIC 04/23/2019 VALENTE ELIS L WEIGHT GUESSER Ot E78.5 HYPERLIPIDEMIA, UNSPECIFIED 04/23/2019 BAIMA ELIS L WEIGHT GUESSER Ot F12.10 CANNABIS ABUSE, UNCOMPLICATED 04/23/2019 BAIMA ELIS L WEIGHT GUESSER Ot G40.909 EPILEPSY, UNSP, NOT INTRACTABLE, WITHOUT 04/23/2019 BAIMA, ELIS L WEIGHT GUESSER Ot G47.30 SLEEP APNEA, UNSPECIFIED 04/23/2019 BAIGAY ELIS L WEIGHT GUESSER Ot I25.10 ATHSCL HEART DISEASE OF [place] CORONARY 04/23/2019 VALENTE ELIS L WEIGHT GUESSER Ot I65.29 OCCLUSION AND STENOSIS OF UNSPECIFIED CA 04/23/2019 VALENTE ELIS L WEIGHT GUESSER Ot 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 [place] 04/23/2019 VALENTE ELIS L WEIGHT GUESSER Ot N52.9 MALE ERECTILE DYSFUNCTION, UNSPECIFIED 04/23/2019 VALENTE ELIS L WEIGHT GUESSER Ot Z79.02 HEALTHCARE ADMINISTRATOR (CURRENT) USE OF ANTITHROMBOTI 04/23/2019 JETMA ELIS L WEIGHT GUESSER Ot Z79.82 HEALTHCARE ADMINISTRATOR (CURRENT) USE OF ASPIRIN 04/23/2019 JETMA ELIS L WEIGHT GUESSER Ot Z79.899 OTHER HEALTHCARE ADMINISTRATOR (CURRENT) DRUG THERAPY 04/23/2019 JETMA ELIS L WEIGHT GUESSER Ot Z91.14 PATIENT'S OTHER NONCOMPLIANCE WITH MEDIC 05/27/2019 ANDREY OMEGA WEIGHT GUESSER Ot E78.00 PURE HYPERCHOLESTEROLEMIA, UNSPECIFIED 05/27/2019 ANDREY, OMEGA WEIGHT GUESSER Ot F41.9 ANXIETY DISORDER, UNSPECIFIED 05/27/2019 ANDREY OMEGA WEIGHT GUESSER Ot G40.909 EPILEPSY, UNSP, NOT INTRACTABLE, WITHOUT 05/27/2019 ANDREYOMEGA Baugh WEIGHT GUESSER Ot G47.30 SLEEP APNEA, UNSPECIFIED 05/27/2019 ANDREY, OMEGA WEIGHT GUESSER Ot I10 ESSENTIAL (PRIMARY) HYPERTENSION 05/27/2019 OMEGA BALDERAS WEIGHT GUESSER Ot I25.10 ATHSCL HEART DISEASE OF [place] CORONARY 05/27/2019 OMEGA BALDERAS WEIGHT GUESSER Ot J44.9 CHRONIC OBSTRUCTIVE PULMONARY DISEASE, U 05/27/2019 ANDREYOMEGA Baugh WEIGHT GUESSER Ot K21.9 GASTRO-ESOPHAGEAL REFLUX DISEASE WITHOUT 05/27/2019 ANDREY, OMEGA WEIGHT GUESSER Ot L97.521 NON-PRS CHRONIC ULCER OTH PRT L FOOT [place] 05/27/2019 ANDREYOMEGA BaughP Ot M79.672 PAIN IN LEFT FOOT 05/27/2019 OMEGA BALDERASP Ot Z77.22 CNTCT W AND EXPSR TO ENVIRON TOBACCO SMO 05/27/2019 ANDREYOMEGA BaughP Ot Z79.02 INTERMEDIATE (CURRENT) USE OF ANTITHROMBOTI 05/27/2019 OMEGA BALDERASP Ot Z79.82 INTERMEDIATE (CURRENT) USE OF ASPIRIN 05/27/2019 OMEGA BALDERAS WEIGHT GUESSER Ot Z80.0 FAMILY HISTORY OF MALIGNANT NEOPLASM OF 05/27/2019 ANDREY, OMEGA WEIGHT GUESSER Ot Z88.6 ALLERGY STATUS TO ANALGESIC AGENT STATUS 05/27/2019 OMEGA BALDERAS WEIGHT GUESSER Ot Z99.89 DEPENDENCE ON OTHER ENABLING MACHINES AN 05/29/2019 ANDREY OMEGA WEIGHT GUESSER Ot E78.00 PURE HYPERCHOLESTEROLEMIA, UNSPECIFIED 05/29/2019 ANDREY OMEGA WEIGHT GUESSER Ot F41.9 ANXIETY DISORDER, UNSPECIFIED 05/29/2019 OMEGA BALDERAS WEIGHT GUESSER Ot G40.909 EPILEPSY, UNSP, NOT INTRACTABLE, WITHOUT 05/29/2019 ANDREY, OMEGA WEIGHT GUESSER Ot G47.30 SLEEP APNEA, UNSPECIFIED 05/29/2019 ANDREY OMEGA WEIGHT GUESSER Ot I10 ESSENTIAL (PRIMARY) HYPERTENSION 05/29/2019 ANDREY OMEGA WEIGHT GUESSER Ot I25.10 ATHSCL HEART DISEASE OF [place] CORONARY 05/29/2019 ANDREY OMEGA WEIGHT GUESSER Ot J44.9 CHRONIC OBSTRUCTIVE PULMONARY DISEASE, U 05/29/2019 ANDREY, OMEGA WEIGHT GUESSER Ot K21.9 GASTRO-ESOPHAGEAL REFLUX DISEASE WITHOUT 05/29/2019 ANDREY, OMEGA WEIGHT GUESSER Ot L97.521 NON-PRS CHRONIC ULCER OTH PRT L FOOT [place] 05/29/2019 ANDREYMOEGA BaughP Ot M79.672 PAIN IN LEFT FOOT 05/29/2019 ANDREYOMEGA BaughP Ot Z77.22 CNTCT W AND EXPSR TO ENVIRON TOBACCO SMO 05/29/2019 ANDREYOMEGA Baugh WEIGHT GUESSER Ot Z79.02 HEALTHCARE ADMINISTRATOR (CURRENT) USE OF ANTITHROMBOTI 05/29/2019 OMEGA BALDERASP Ot Z79.82 HEALTHCARE ADMINISTRATOR (CURRENT) USE OF ASPIRIN 05/29/2019 OMEGA BALDERASP Ot Z80.0 FAMILY HISTORY OF MALIGNANT NEOPLASM OF 05/29/2019 ANDERYOMEGA Baugh WEIGHT GUESSER Ot Z88.6 ALLERGY STATUS TO ANALGESIC AGENT STATUS 05/29/2019 OMEGA BALDERASP Ot Z99.89 DEPENDENCE ON OTHER ENABLING MACHINES AN 05/31/2019 CARMEN HOYOS APRN Ot G47.33 OBSTRUCTIVE SLEEP APNEA (ADULT) (PEDIATR 05/31/2019 CARMEN HOYOS PHARMACY BENEFIT MANAGER Ot J44.9 CHRONIC OBSTRUCTIVE PULMONARY DISEASE, U 05/31/2019 CARMEN HOYOS PHARMACY BENEFIT MANAGER Ot Z72.0 TOBACCO USE 06/07/2019 FABIENNE ERAZO, JENNA Humphrey Ot L02.612 CUTANEOUS ABSCESS OF LEFT FOOT 06/18/2019 CARMEN HOYOS APRN Ot G47.33 OBSTRUCTIVE SLEEP APNEA (ADULT) (PEDIATR 06/18/2019 CARMEN HOYOS PHARMACY BENEFIT MANAGER Ot J44.9 CHRONIC OBSTRUCTIVE PULMONARY DISEASE, U 06/18/2019 CARMEN HOYOS PHARMACY BENEFIT MANAGER Ot Z72.0 TOBACCO USE 06/24/2019 OMEGA BALDERAS WEIGHT GUESSER Ot E78.00 PURE HYPERCHOLESTEROLEMIA, UNSPECIFIED 06/24/2019 ANDREY OMEGA WEIGHT GUESSER Ot F41.9 ANXIETY DISORDER, UNSPECIFIED 06/24/2019 ANDREY, OMEGA WEIGHT GUESSER Ot G40.909 EPILEPSY, UNSP, NOT INTRACTABLE, WITHOUT 06/24/2019 ANDREY, OMEGA WEIGHT GUESSER Ot G47.30 SLEEP APNEA, UNSPECIFIED 06/24/2019 ANDREY OMEGA WEIGHT GUESSER Ot I10 ESSENTIAL (PRIMARY) HYPERTENSION 06/24/2019 ANDREY OMEGA WEIGHT GUESSER Ot I25.10 ATHSCL HEART DISEASE OF [place] CORONARY 06/24/2019 OMEGA BALDERAS WEIGHT GUESSER Ot J44.9 CHRONIC OBSTRUCTIVE PULMONARY DISEASE, U 06/24/2019 ANDREY OMEGA WEIGHT GUESSER Ot K21.9 GASTRO-ESOPHAGEAL REFLUX DISEASE WITHOUT 06/24/2019 ANDREY, OMEGA WEIGHT GUESSER Ot M54.5 LOW BACK PAIN 06/24/2019 ANDREY, OMEGA WEIGHT GUESSER Ot Z77.22 CNTCT W AND EXPSR TO ENVIRON TOBACCO SMO 06/24/2019 ANDREY, OMEGA WEIGHT GUESSER Ot Z79.02 HEALTHCARE ADMINISTRATOR (CURRENT) USE OF ANTITHROMBOTI 06/24/2019 ANDREY, OMEGA WEIGHT GUESSER Ot Z79.82 INTERMEDIATE (CURRENT) USE OF ASPIRIN 06/24/2019 ANDREY, OMEGA WEIGHT GUESSER Ot Z80.0 FAMILY HISTORY OF MALIGNANT NEOPLASM OF 06/24/2019 ANDREY, OMEGA WEIGHT GUESSER Ot Z82.49 FAMILY HX OF ISCHEM HEART DIS AND OTH DI 06/24/2019 ANDREY OMEGA WEIGHT GUESSER Ot Z86.010 PERSONAL HISTORY OF COLONIC POLYPS 06/24/2019 ANDREY OMEGA WEIGHT GUESSER Ot Z88.5 ALLERGY STATUS TO NARCOTIC AGENT STATUS 06/27/2019 ANDREY, OMEGA WEIGHT GUESSER Ot E78.00 PURE HYPERCHOLESTEROLEMIA, UNSPECIFIED 06/27/2019 ANDREY, OMEGA WEIGHT GUESSER Ot F41.9 ANXIETY DISORDER, UNSPECIFIED 06/27/2019 ANDREY, OMEGA WEIGHT GUESSER Ot G40.909 EPILEPSY, UNSP, NOT INTRACTABLE, WITHOUT 06/27/2019 ANDREY, OMEGA WEIGHT GUESSER Ot G47.30 SLEEP APNEA, UNSPECIFIED 06/27/2019 ANDREY OMEGA WEIGHT GUESSER Ot I10 ESSENTIAL (PRIMARY) HYPERTENSION 06/27/2019 ANDREY OMEGA WEIGHT GUESSER Ot I25.10 ATHSCL HEART DISEASE OF [place] CORONARY 06/27/2019 ANDREY OMEGA WEIGHT GUESSER Ot J44.9 CHRONIC OBSTRUCTIVE PULMONARY DISEASE, U 06/27/2019 ANDREY, OMEGA WEIGHT GUESSER Ot K21.9 GASTRO-ESOPHAGEAL REFLUX DISEASE WITHOUT 06/27/2019 ANDREY, OMEGA WEIGHT GUESSER Ot M54.5 LOW BACK PAIN 06/27/2019 ANDREY, OMEGA WEIGHT GUESSER Ot Z77.22 CNTCT W AND EXPSR TO ENVIRON TOBACCO SMO 06/27/2019 ANDREY, OMEGA WEIGHT GUESSER Ot Z79.02 INTERMEDIATE (CURRENT) USE OF ANTITHROMBOTI 06/27/2019 ANDREY, OMEGA WEIGHT GUESSER Ot Z79.82 INTERMEDIATE (CURRENT) USE OF ASPIRIN 06/27/2019 ANDREY, OMEGA WEIGHT GUESSER Ot Z80.0 FAMILY HISTORY OF MALIGNANT NEOPLASM OF 06/27/2019 ANDREY OMEGA MAURO Ot Z82.49 FAMILY HX OF ISCHEM HEART DIS AND OTH DI 06/27/2019 OMEGA BALDERAS [place] Ot Z86.010 PERSONAL HISTORY OF COLONIC POLYPS 06/27/2019 OMEGA BALDERAS [place] Ot Z88.5 ALLERGY STATUS TO NARCOTIC AGENT STATUS 07/05/2019 CARMEN HOYOS PHARMACY BENEFIT MANAGER Ot G47.33 OBSTRUCTIVE SLEEP APNEA (ADULT) (PEDIATR 07/05/2019 CARMEN HOYOS PHARMACY BENEFIT MANAGER Ot J44.9 CHRONIC OBSTRUCTIVE PULMONARY DISEASE, U 07/05/2019 SOHAESA KIMINE Lupis PHARMACY BENEFIT MANAGER Ot Z72.0 TOBACCO USE 07/05/2019 SOHAESA KIMINE Lupis PHARMACY BENEFIT MANAGER Ot G47.33 OBSTRUCTIVE SLEEP APNEA (ADULT) (PEDIATR 07/05/2019 CARMEN HOYOS PHARMACY BENEFIT MANAGER Ot J44.9 CHRONIC OBSTRUCTIVE PULMONARY DISEASE, U 07/05/2019 SOHACARMEN KIM PHARMACY BENEFIT MANAGER Ot Z72.0 TOBACCO USE 07/08/2019 CARMEN HOYOS PHARMACY BENEFIT MANAGER Ot G47.33 OBSTRUCTIVE SLEEP APNEA (ADULT) (PEDIATR 07/08/2019 SOHACARMEN KIM PHARMACY BENEFIT MANAGER Ot J44.9 CHRONIC OBSTRUCTIVE PULMONARY DISEASE, U 07/08/2019 SOHAESA KIMINE Lupis PHARMACY BENEFIT MANAGER Ot Z72.0 TOBACCO USE 08/02/2019 CARMEN HOYOS PHARMACY BENEFIT MANAGER Ot G47.33 OBSTRUCTIVE SLEEP APNEA (ADULT) (PEDIATR 08/02/2019 CARMEN HOYOS PHARMACY BENEFIT MANAGER Ot J44.9 CHRONIC OBSTRUCTIVE PULMONARY DISEASE, U 08/02/2019 CARMEN HOYOS PHARMACY BENEFIT MANAGER Ot Z72.0 TOBACCO USE 03/02/2020 RENETTA CARDOZA Ot 611.72 LUMP OR MASS IN BREAST 03/02/2020 RENETTA CARDOZA Ot V16.3 FAMILY HX-BREAST MALIG 03/02/2020 LANG HUDSON DO Ot T82.118A BREAKDOWN (MECHANICAL) OF CARDIAC ELECTR 03/02/2020 LANG HUDSON DO Ot Z01.810 ENCOUNTER FOR PREPROCEDURAL CARDIOVASCUL 03/02/2020 LANG HUDSON DO Ot Z01.812 ENCOUNTER FOR PREPROCEDURAL LABORATORY E 03/02/2020 LANG HUDSON DO Ot Z11. 2 ENCOUNTER FOR SCREENING FOR OTHER BACTER 03/02/2020 CARMEN HOYOS PHARMACY BENEFIT MANAGER Ot F17.200 NICOTINE DEPENDENCE, UNSPECIFIED, UNCOMP 03/02/2020 CARMEN HOYOS PHARMACY BENEFIT MANAGER Ot J44.9 CHRONIC OBSTRUCTIVE PULMONARY DISEASE, U 03/02/2020 CARMEN HOYOS PHARMACY BENEFIT MANAGER Ot R06.00 DYSPNEA, UNSPECIFIED 03/02/2020 RENETTA CARDOZA Ot M25.561 PAIN IN RIGHT KNEE 03/02/2020 SHAKA ERAZO [facility], ALI FACP CCDS Ot E78.5 HYPERLIPIDEMIA, UNSPECIFIED 03/02/2020 SHAKA ERAZO [facility], ALI FACP CCDS Ot I25.10 ATHSCL HEART DISEASE OF [place] CORONARY 03/02/2020 SHAKA ERAZO [facility], ALI FACP CCDS Ot 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 03/02/2020 SHAKA ERAZO [facility], ALI FACP CCDS Ot R06.02 SHORTNESS OF BREATH 03/02/2020 CARMEN HOYOS PHARMACY BENEFIT MANAGER Ot F12.10 CANNABIS ABUSE, UNCOMPLICATED 03/02/2020 CARMEN HOYOS APRN Ot J44.9 CHRONIC OBSTRUCTIVE PULMONARY DISEASE, U 03/02/2020 CARMEN HOYOS PHARMACY BENEFIT MANAGER Ot Z72.0 TOBACCO USE 03/02/2020 SHAKA ERAZO [facility], ALI FACP CCDS Ot E78.5 HYPERLIPIDEMIA, UNSPECIFIED 03/02/2020 SHAKA ERAZO [facility], ALI FACP CCDS Ot I25.10 ATHSCL HEART DISEASE OF [place] CORONARY 03/02/2020 SHAKA ERAZO [facility], ALI FACP CCDS Ot I73.9 PERIPHERAL VASCULAR DISEASE, UNSPECIFIED 03/02/2020 SHAKA ERAZO [facility], ALI FACP CCDS Ot I77.89 OTHER SPECIFIED DISORDERS OF ARTERIES AN 03/02/2020 SHAKA ERAZO [facility], ALI FACP CCDS Ot R06.02 SHORTNESS OF BREATH 03/02/2020 SHAKA ERAZO [facility], ALI FACP CCDS Ot Z72.0 TOBACCO USE 03/02/2020 [facility]AKA ERAZO [facility], ALI FACP CCDS Ot E78.4 OTHER HYPERLIPIDEMIA 03/02/2020 SHAKA ERAZO [facility], ALI FACP CCDS Ot F17.200 NICOTINE DEPENDENCE, UNSPECIFIED, UNCOMP 03/02/2020 SHAKA ERAZO [facility], ALI FACP CCDS Ot I10 ESSENTIAL (PRIMARY) HYPERTENSION 03/02/2020 SHAKA ERAZO [facility], ALI FACP CCDS Ot I25.10 ATHSCL HEART DISEASE OF [place] CORONARY 03/02/2020 SHAKA ERAOZ [facility], [facility] CCDS Ot 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 03/02/2020 SHAKA ERAZO [facility], [facility] CCDS Ot I70.213 ATHSCL [place] ARTERIES OF EXTRM W INTRMT 03/02/2020 NWAGWU, ELIF O PHARMACY BENEFIT MANAGER Ot N43.3 HYDROCELE, UNSPECIFIED 03/02/2020 CARMEN HOYOS PHARMACY BENEFIT MANAGER Ot G47.33 OBSTRUCTIVE SLEEP APNEA (ADULT) (PEDIATR 03/02/2020 CARMEN HOYOS PHARMACY BENEFIT MANAGER Ot J44.9 CHRONIC OBSTRUCTIVE PULMONARY DISEASE, U 03/02/2020 CARMEN HOYOS APRN Ot Z72.0 TOBACCO USE 03/02/2020 CARMEN HOYOS PHARMACY BENEFIT MANAGER Ot G47.33 OBSTRUCTIVE SLEEP APNEA (ADULT) (PEDIATR 03/02/2020 CARMEN HOYOS APRN Ot J44.9 CHRONIC OBSTRUCTIVE PULMONARY DISEASE, U 03/02/2020 CARMEN HOYOS APRN Ot Z72.0 TOBACCO USE 03/02/2020 JENNA LOVING MD Ot L02.612 CUTANEOUS ABSCESS OF LEFT FOOT 03/13/2020 RENETTA CARDOZA Ot 611.72 LU[place] OR MASS IN BREAST 03/13/2020 RENETTA CARDOZA Ot V16.3 FAMILY HX-BREAST MALIG 03/13/2020 [facility] Ot T82.118A BREAKDOWN (MECHANICAL) OF CARDIAC ELECTR 03/13/2020 HUDSON LANG MYRICK Ot Z01.810 ENCOUNTER FOR PREPROCEDURAL CARDIOVASCUL 03/13/2020 HUDSON LANG MYRICK Ot Z01.812 ENCOUNTER FOR PREPROCEDURAL LABORATORY E 03/13/2020 ESBON LANG MYRICK Ot Z11. 2 ENCOUNTER FOR SCREENING FOR OTHER BACTER 03/13/2020 CARMEN HOYOS APRN Ot F17.200 NICOTINE DEPENDENCE, UNSPECIFIED, UNCOMP 03/13/2020 CARMEN HOYOS PHARMACY BENEFIT MANAGER Ot J44.9 CHRONIC OBSTRUCTIVE PULMONARY DISEASE, U 03/13/2020 CARMEN HOYOS APRN Ot R06.00 DYSPNEA, UNSPECIFIED 03/13/2020 RENETTA CARDOZA Ot M25.561 PAIN IN RIGHT KNEE 03/13/2020 SHAKA ERAZO [facility], ALI FACP CCDS Ot E78.5 HYPERLIPIDEMIA, UNSPECIFIED 03/13/2020 [facility], ALI FACP CCDS Ot I25.10 ATHSCL HEART DISEASE OF [place] CORONARY 03/13/2020 SHAKA ERAZO [facility], ALI FACP CCDS Ot 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 03/13/2020 [facility], ALI FACP CCDS Ot R06.02 SHORTNESS OF BREATH 03/13/2020 CARMEN HOYOS PHARMACY BENEFIT MANAGER Ot F12.10 CANNABIS ABUSE, UNCOMPLICATED 03/13/2020 CARMEN HOYOS PHARMACY BENEFIT MANAGER Ot J44.9 CHRONIC OBSTRUCTIVE PULMONARY DISEASE, U 03/13/2020 CARMEN HOYOS PHARMACY BENEFIT MANAGER Ot Z72.0 TOBACCO USE 03/13/2020 SHAKA ERAZO [facility], ALI FACP CCDS Ot E78.5 HYPERLIPIDEMIA, UNSPECIFIED 03/13/2020 [facility], ALI FACP CCDS Ot I25.10 ATHSCL HEART DISEASE OF [place] CORONARY 03/13/2020 SHAKA ERAZO [facility], ALI FACP CCDS Ot I73.9 PERIPHERAL VASCULAR DISEASE, UNSPECIFIED 03/13/2020 [facility], ALI FACP CCDS Ot I77.89 OTHER SPECIFIED DISORDERS OF ARTERIES AN 03/13/2020 SHAKA ERAZO [facility], ALI FACP CCDS Ot R06.02 SHORTNESS OF BREATH 03/13/2020 [facility], ALI FACP CCDS Ot Z72.0 TOBACCO USE 03/13/2020 [facility], ALI FACP CCDS Ot E78.4 OTHER HYPERLIPIDEMIA 03/13/2020 SHAKA ERAZO [facility], ALI FACP CCDS Ot F17.200 NICOTINE DEPENDENCE, UNSPECIFIED, UNCOMP 03/13/2020 [facility], ALI FACP CCDS Ot I10 ESSENTIAL (PRIMARY) HYPERTENSION 03/13/2020 [facility]AKA ERAZO [facility], ALI FACP CCDS Ot I25.10 ATHSCL HEART DISEASE OF [place] CORONARY 03/13/2020 SHAKA ERAZO [facility], ALI FACP CCDS Ot 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 03/13/2020 [facility]AK[facility] ERAZO [facility], ALI FACP CCDS Ot I70.213 ATHSCL [place] ARTERIES OF EXTRM W INTRMT 03/13/2020 ELIF MARIEE PHARMACY BENEFIT MANAGER Ot N43.3 HYDROCELE, UNSPECIFIED 03/13/2020 CARMEN HOYOS PHARMACY BENEFIT MANAGER Ot G47.33 OBSTRUCTIVE SLEEP APNEA (ADULT) (PEDIATR 03/13/2020 CARMEN HOYOS PHARMACY BENEFIT MANAGER Ot J44.9 CHRONIC OBSTRUCTIVE PULMONARY DISEASE, U 03/13/2020 CARMEN HOYOS PHARMACY BENEFIT MANAGER Ot Z72.0 TOBACCO USE 03/13/2020 CARMEN HOYOS PHARMACY BENEFIT MANAGER Ot G47.33 OBSTRUCTIVE SLEEP APNEA (ADULT) (PEDIATR 03/13/2020 CARMEN HOYOS PHARMACY BENEFIT MANAGER Ot J44.9 CHRONIC OBSTRUCTIVE PULMONARY DISEASE, U 03/13/2020 CARMEN HOYOS PHARMACY BENEFIT MANAGER Ot Z72.0 TOBACCO USE 03/13/2020 FABIENNE ERAZO, JENNA Humphrey Ot L02.612 CUTANEOUS ABSCESS OF LEFT FOOT 03/13/2020 CARMEN HOYOS PHARMACY BENEFIT MANAGER Ot Z87.891 PERSONAL HISTORY OF NICOTINE DEPENDENCE 03/13/2020 RENETTA CARDOZA Ot 611.72 LUMP OR MASS IN BREAST 03/13/2020 RENETTA CARDOZA Ot V16.3 FAMILY HX-BREAST MALIG 03/13/2020 [facility] T82.118A BREAKDOWN (MECHANICAL) OF CARDIAC ELECTR 03/13/2020 HUDSON LANG MYRICK Ot Z01.810 ENCOUNTER FOR PREPROCEDURAL CARDIOVASCUL 03/13/2020 [facility] Z01.812 ENCOUNTER FOR PREPROCEDURAL LABORATORY E 03/13/2020 [facility] Z11. 2 ENCOUNTER FOR SCREENING FOR OTHER BACTER 03/13/2020 CARMEN HOYOS PHARMACY BENEFIT MANAGER Ot F17.200 NICOTINE DEPENDENCE, UNSPECIFIED, UNCOMP 03/13/2020 CARMEN HOYOS PHARMACY BENEFIT MANAGER Ot J44.9 CHRONIC OBSTRUCTIVE PULMONARY DISEASE, U 03/13/2020 CARMEN HOYOS PHARMACY BENEFIT MANAGER Ot R06.00 DYSPNEA, UNSPECIFIED 03/13/2020 RENETTA CARDOZA Ot M25.561 PAIN IN RIGHT KNEE 03/13/2020 SHAKA ERAZO FACC, ALI FACP CCDS Ot E78.5 HYPERLIPIDEMIA, UNSPECIFIED 03/13/2020 SHAKA ERAZO FACC, ALI FACP CCDS Ot I25.10 ATHSCL HEART DISEASE OF [place] CORONARY 03/13/2020 [facility], ALI FACP CCDS Ot 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 03/13/2020 [facility], ALI FACP CCDS Ot R06.02 SHORTNESS OF BREATH 03/13/2020 CARMEN HOYOS PHARMACY BENEFIT MANAGER Ot F12.10 CANNABIS ABUSE, UNCOMPLICATED 03/13/2020 CARMEN HOYOS PHARMACY BENEFIT MANAGER Ot J44.9 CHRONIC OBSTRUCTIVE PULMONARY DISEASE, U 03/13/2020 CARMEN HOYOS PHARMACY BENEFIT MANAGER Ot Z72.0 TOBACCO USE 03/13/2020 [facility], ALI FACP CCDS Ot E78.5 HYPERLIPIDEMIA, UNSPECIFIED 03/13/2020 [facility], ALI FACP CCDS Ot I25.10 ATHSCL HEART DISEASE OF [place] CORONARY 03/13/[address] [facility], ALI FACP CCDS Ot I73.9 PERIPHERAL VASCULAR DISEASE, UNSPECIFIED 03/13/2020 [facility], ALI FACP CCDS Ot I77.89 OTHER SPECIFIED DISORDERS OF ARTERIES AN 03/13/2020 [facility], ALI FACP CCDS Ot R06.02 SHORTNESS OF BREATH 03/13/2020 [facility], ALI FACP CCDS Ot Z72.0 TOBACCO USE 03/13/2020 [facility], ALI FACP CCDS Ot E78.4 OTHER HYPERLIPIDEMIA 03/13/[address] [facility], ALI FACP CCDS Ot F17.200 NICOTINE DEPENDENCE, UNSPECIFIED, UNCOMP 03/13/2020 [facility], ALI FACP CCDS Ot I10 ESSENTIAL (PRIMARY) HYPERTENSION 03/13/2020 [facility], ALI FACP CCDS Ot I25.10 ATHSCL HEART DISEASE OF [place] CORONARY 03/13/2020 [facility], ALI FACP CCDS Ot 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 03/13/2020 [facility], ALI FACP CCDS Ot I70.213 ATHSCL [place] ARTERIES OF EXTRM W INTRMT 03/13/2020 NWAGWU, ELIF O PHARMACY BENEFIT MANAGER Ot N43.3 HYDROCELE, UNSPECIFIED 03/13/2020 CARMEN HOYOS PHARMACY BENEFIT MANAGER Ot G47.33 OBSTRUCTIVE SLEEP APNEA (ADULT) (PEDIATR 03/13/2020 CARMEN HOYOS PHARMACY BENEFIT MANAGER Ot J44.9 CHRONIC OBSTRUCTIVE PULMONARY DISEASE, U 03/13/2020 CARMEN HOYOS APRN Ot Z72.0 TOBACCO USE 03/13/2020 CARMEN HOYOS APRN Ot G47.33 OBSTRUCTIVE SLEEP APNEA (ADULT) (PEDIATR 03/13/2020 CARMEN HOYOS APRN Ot J44.9 CHRONIC OBSTRUCTIVE PULMONARY DISEASE, U 03/13/2020 CARMEN HOYOS APRN Ot Z72.0 TOBACCO USE 03/13/2020 JENNA LOVING MD Ot L02.612 CUTANEOUS ABSCESS OF LEFT FOOT 03/13/2020 CARMEN HOYOS APRN Ot Z87.891 PERSONAL HISTORY OF NICOTINE DEPENDENCE 03/13/2020 RENETTA CARDOZA Ot 611.72 LU[place] OR MASS IN BREAST 03/13/2020 RENETTA CARDOZA Ot V16.3 FAMILY HX-BREAST MALIG 03/13/2020 [facility] Ot T82.118A BREAKDOWN (MECHANICAL) OF CARDIAC ELECTR 03/13/2020 HUDSON LANG MYRICK Ot Z01.810 ENCOUNTER FOR PREPROCEDURAL CARDIOVASCUL 03/13/2020 [facility] Ot Z01.812 ENCOUNTER FOR PREPROCEDURAL LABORATORY E 03/13/2020 ESBON LANG MYRICK Ot Z11. 2 ENCOUNTER FOR SCREENING FOR OTHER BACTER 03/13/2020 CARMEN HOYOS APRN Ot F17.200 NICOTINE DEPENDENCE, UNSPECIFIED, UNCOMP 03/13/2020 CARMEN HOYOS APRN Ot J44.9 CHRONIC OBSTRUCTIVE PULMONARY DISEASE, U 03/13/2020 CARMEN HOYOS APRN Ot R06.00 DYSPNEA, UNSPECIFIED 03/13/2020 RENETTA CARDOZA Ot M25.561 PAIN IN RIGHT KNEE 03/13/2020 SHAKA ERAZO [facility], ALI FACP CCDS Ot E78.5 HYPERLIPIDEMIA, UNSPECIFIED 03/13/2020 SHAKA ERAZO FACC, ALI FACP CCDS Ot I25.10 ATHSCL HEART DISEASE OF [place] CORONARY 03/13/2020 SHAKA ERAZO FACC, ALI FACP CCDS Ot I65.23 OCCLUSION AND STENOSIS OF BILATERAL [place] 03/13/2020 SHAKA ERAZO FACC, ALI FACP CCDS Ot R06.02 SHORTNESS OF BREATH 03/13/2020 SOHA, CARMEN E PHARMACY BENEFIT MANAGER Ot F12.10 CANNABIS ABUSE, UNCOMPLICATED 03/13/2020 CARMEN HOYOS E PHARMACY BENEFIT MANAGER Ot J44.9 CHRONIC OBSTRUCTIVE PULMONARY DISEASE, U 03/13/2020 CARMEN HOYOS E PHARMACY BENEFIT MANAGER Ot Z72.0 TOBACCO USE 03/13/2020 [facility] ERA[facility], ALI FACP CCDS Ot E78.5 HYPERLIPIDEMIA, UNSPECIFIED 03/13/2020 [facility], ALI FACP CCDS Ot I25.10 ATHSCL HEART DISEASE OF [place] CORONARY 03/13/2020 [facility], ALI FACP CCDS Ot I73.9 PERIPHERAL VASCULAR DISEASE, UNSPECIFIED 03/13/2020 [facility], ALI FACP CCDS Ot I77.89 OTHER SPECIFIED DISORDERS OF ARTERIES AN 03/13/2020 [facility], ALI FACP CCDS Ot R06.02 SHORTNESS OF BREATH 03/13/2020 [facility], ALI FACP CCDS Ot Z72.0 TOBACCO USE 03/13/2020 [facility], ALI FACP CCDS Ot E78.4 OTHER HYPERLIPIDEMIA 03/13/2020 [facility], ALI FACP CCDS Ot F17.200 NICOTINE DEPENDENCE, UNSPECIFIED, UNCOMP 03/13/2020 [facility], ALI FACP CCDS Ot I10 ESSENTIAL (PRIMARY) HYPERTENSION 03/13/2020 [facility], ALI FACP CCDS Ot I25.10 ATHSCL HEART DISEASE OF [place] CORONARY 03/13/2020 [facility], ALI FACP CCDS Ot 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 03/13/2020 [facility], ALI FACP CCDS Ot I70.213 ATHSCL [place] ARTERIES OF EXTRM W INTRMT 03/13/2020 NWAGWU, ISIDORE O PHARMACY BENEFIT MANAGER Ot N43.3 HYDROCELE, UNSPECIFIED 03/13/2020 CARMEN HOYOS E PHARMACY BENEFIT MANAGER Ot G47.33 OBSTRUCTIVE SLEEP APNEA (ADULT) (PEDIATR 03/13/2020 CARMEN HOYOS PHARMACY BENEFIT MANAGER Ot J44.9 CHRONIC OBSTRUCTIVE PULMONARY DISEASE, U 03/13/2020 CARMEN HOYOS PHARMACY BENEFIT MANAGER Ot Z72.0 TOBACCO USE 03/13/2020 CARMEN HOYOS E PHARMACY BENEFIT MANAGER Ot G47.33 OBSTRUCTIVE SLEEP APNEA (ADULT) (PEDIATR 03/13/2020 CARMEN HOYOS PHARMACY BENEFIT MANAGER Ot J44.9 CHRONIC OBSTRUCTIVE PULMONARY DISEASE, U 03/13/2020 CARMEN HOYOS PHARMACY BENEFIT MANAGER Ot Z72.0 TOBACCO USE 03/13/2020 FABIENNE ERAZO, JENNA Humphrey Ot L02.612 CUTANEOUS ABSCESS OF LEFT FOOT 03/13/2020 CARMEN HOYOS PHARMACY BENEFIT MANAGER Ot Z87.891 PERSONAL HISTORY OF NICOTINE DEPENDENCE 03/16/2020 FRANCISCO DO, STEW Ot E11.9 TYPE 2 DIABETES MELLITUS WITHOUT COMPLIC 03/16/2020 FRANCISCO DO, STEW Ot E78.00 PURE HYPERCHOLESTEROLEMIA, UNSPECIFIED 03/16/2020 FRANCISCO DO, STEW Ot E78.1 PURE HYPERGLYCERIDEMIA 03/16/2020 FRANCISCO DO, STEW Ot F17.21 0 NICOTINE DEPENDENCE, CIGARETTES, UNCOMPL 03/16/2020 FRANCISCO DO, STEW Ot F41.9 ANXIETY DISORDER, UNSPECIFIED 03/16/2020 FRANCISCO DO, STEW Ot G40.90 9 EPILEPSY, UNSP, NOT INTRACTABLE, WITHOUT 03/16/2020 FRANCISCO DO, STEW Ot G47.33 OBSTRUCTIVE SLEEP APNEA (ADULT) (PEDIATR 03/16/2020 FRANCISCO DO, STEW Ot I07.1 RHEUMATIC TRICUSPID INSUFFICIENCY 03/16/2020 FRANCISCO DO, STEW Ot I11.0 HYPERTENSIVE HEART DISEASE WITH HEART FA 03/16/2020 FRANCISCO DO, STEW Ot I21.A1 MYOCARDIAL INFARCTION TYPE 2 03/16/2020 FRANCISCO DO, STEW Ot I25.10 ATHSCL HEART DISEASE OF [place] CORONARY 03/16/2020 FRANCISCO DO, STEW Ot I50.33 ACUTE ON CHRONIC DIASTOLIC (CONGESTIVE) 03/16/2020 FRANCISCO DO, STEW Ot I65.02 OCCLUSION AND STENOSIS OF LEFT VERTEBRAL 03/16/2020 FRANCISCO DO, STEW Ot 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 03/16/2020 FRANCISCO DO, STEW Ot I70.20 2 UNSP ATHSCL [place] ARTERIES OF EXTREMITI 03/16/2020 FRANCISCO DO, STEW Ot J44.1 CHRONIC OBSTRUCTIVE PULMONARY DISEASE W 03/16/2020 FRANCISCO DO, STEW Ot 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 ACUTE AND CHRONIC RESPIRATORY FAILURE [place] 03/16/2020 FRANCISCO DO, STEW Ot J96.22 ACUTE AND CHRONIC RESPIRATORY FAILURE [place] 03/16/2020 FRANCISCO DO, STEW Ot K21.9 GASTRO-ESOPHAGEAL REFLUX DISEASE WITHOUT 03/16/2020 FRANCISCO DO, STEW Ot L03.11 5 CELLULITIS OF RIGHT LOWER LIMB 03/16/2020 NOLAN MYRICK, STEW Ot M54.9 DORSALGIA, UNSPECIFIED 03/16/2020 NOLAN MYRICK, STEW Ot N52.9 MALE ERECTILE DYSFUNCTION, UNSPECIFIED 03/16/2020 NOLAN MYRICK, STEW Ot Z95.82 0 PERIPHERAL VASCULAR ANGIOPLASTY STATUS W 03/27/2020 RENETTA CARDOZA Ot 611.72 LUMP OR MASS IN BREAST 03/27/2020 RENETTA CARDOZA Ot V16.3 FAMILY HX-BREAST MALIG 03/27/2020 HU[place] LANG MYRICK Ot T82.118A BREAKDOWN (MECHANICAL) OF CARDIAC ELECTR 03/27/2020 [facility] MYRICK Ot Z01.810 ENCOUNTER FOR PREPROCEDURAL CARDIOVASCUL 03/27/2020 [facility]01.812 ENCOUNTER FOR PREPROCEDURAL LABORATORY E 03/27/2020 [facility] Z11. 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, ALI FACP CCDS Ot E78.5 HYPERLIPIDEMIA, UNSPECIFIED 03/27/[address] [facility], ALI FACP CCDS Ot I25.10 ATHSCL HEART DISEASE OF [place] CORONARY 03/27/[address] [facility], ALI FACP CCDS Ot I73.9 PERIPHERAL VASCULAR DISEASE, UNSPECIFIED 03/27/[address] [facility], ALI FACP CCDS Ot I77.89 OTHER SPECIFIED DISORDERS OF ARTERIES AN 03/27/2020 [facility], ALI FACP CCDS Ot R06.02 SHORTNESS OF BREATH 03/27/[address] [facility], ALI FACP CCDS Ot Z72.0 TOBACCO USE 03/27/[address] [facility], ALI FACP CCDS Ot E78.4 OTHER HYPERLIPIDEMIA 03/27/[address] [facility], ALI FACP CCDS Ot F17.200 NICOTINE DEPENDENCE, UNSPECIFIED, UNCOMP 03/27/[address] [facility], ALI FACP CCDS Ot I10 ESSENTIAL (PRIMARY) HYPERTENSION 03/27/[address] [facility], ALI FACP CCDS Ot I25.10 ATHSCL HEART DISEASE OF [place] CORONARY 03/27/[address] 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, ALI FACP CCDS Ot I70.213 ATHSCL [place] ARTERIES OF EXTRM W INTRMT 03/27/2020 NWELIF CAZARSE O PHARMACY BENEFIT MANAGER Ot N43.3 HYDROCELE, UNSPECIFIED 03/27/2020 CARMEN HOYOS E PHARMACY BENEFIT MANAGER Ot G47.33 OBSTRUCTIVE SLEEP APNEA (ADULT) (PEDIATR 03/27/2020 ESA HOYOSINE E PHARMACY BENEFIT MANAGER Ot J44.9 CHRONIC OBSTRUCTIVE PULMONARY DISEASE, U 03/27/2020 CARMEN HOYOS E PHARMACY BENEFIT MANAGER Ot Z72.0 TOBACCO USE 03/27/2020 ESA HOYOSINE E PHARMACY BENEFIT MANAGER Ot G47.33 OBSTRUCTIVE SLEEP APNEA (ADULT) (PEDIATR 03/27/2020 ESA HOYOSINE E PHARMACY BENEFIT MANAGER Ot J44.9 CHRONIC OBSTRUCTIVE PULMONARY DISEASE, U 03/27/2020 ESA HOYOSINE E PHARMACY BENEFIT MANAGER Ot Z72.0 TOBACCO USE 03/27/2020 FABIENNE ERAZO, JENNA Humphrey Ot L02.612 CUTANEOUS ABSCESS OF LEFT FOOT 03/27/2020 CARMEN HOYOS APRN Ot Z87.891 PERSONAL HISTORY OF NICOTINE DEPENDENCE 03/27/2020 RENETTA CARDOZA Ot 611.72 LUMP OR MASS IN BREAST 03/27/2020 RENETTA CARDOZA Ot V16.3 FAMILY HX-BREAST MALIG 03/27/2020 [place] LANG MYRICK Ot T82.118A BREAKDOWN (MECHANICAL) OF CARDIAC ELECTR 03/27/2020 [facility] Z01.810 ENCOUNTER FOR PREPROCEDURAL CARDIOVASCUL 03/27/2020 [facility] Z01.812 ENCOUNTER FOR PREPROCEDURAL LABORATORY E 03/27/2020 [facility] Z11. 2 ENCOUNTER FOR SCREENING FOR OTHER BACTER 03/27/2020 CARMEN HOYOS APRN Ot F17.200 NICOTINE DEPENDENCE, UNSPECIFIED, UNCOMP 03/27/2020 CARMEN HOYOS APRN Ot J44.9 CHRONIC OBSTRUCTIVE PULMONARY DISEASE, U 03/27/2020 CARMEN HOYOS APRN Ot R06.00 DYSPNEA, UNSPECIFIED 03/27/2020 RENETTA CARDOZA Ot M25.561 PAIN IN RIGHT KNEE 03/27/2020 SHAKA ERAZO FACC, ALI FACP CCDS Ot E78.5 HYPERLIPIDEMIA, UNSPECIFIED 03/27/2020 SHAKA ERAZO FACC, ALI FACP CCDS Ot I25.10 ATHSCL HEART DISEASE OF [place] CORONARY 03/27/2020 SHAKA ERAZO FACC, ALI FACP CCDS Ot 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 03/27/2020 SHAKA ERAZO FACC, ALI FACP CCDS Ot R06.02 SHORTNESS OF BREATH 03/27/2020 CARMEN HOYOS PHARMACY BENEFIT MANAGER Ot F12.10 CANNABIS ABUSE, UNCOMPLICATED 03/27/2020 CARMEN HOYOS APRN Ot J44.9 CHRONIC OBSTRUCTIVE PULMONARY DISEASE, U 03/27/2020 CARMEN HOYOS PHARMACY BENEFIT MANAGER Ot Z72.0 TOBACCO USE 03/27/2020 SHAKA ERAZO FACC, ALI FACP CCDS Ot E78.5 HYPERLIPIDEMIA, UNSPECIFIED 03/27/2020 SHAKA ERAZO FACC, ALI FACP CCDS Ot I25.10 ATHSCL HEART DISEASE OF [place] CORONARY 03/27/[address] [facility], ALI FACP CCDS Ot I73.9 PERIPHERAL VASCULAR DISEASE, UNSPECIFIED 03/27/[address] [facility], ALI FACP CCDS Ot I77.89 OTHER SPECIFIED DISORDERS OF ARTERIES AN 03/27/2020 [facility], ALI FACP CCDS Ot R06.02 SHORTNESS OF BREATH 03/27/[address] [facility], ALI FACP CCDS Ot Z72.0 TOBACCO USE 03/27/[address] [facility], ALI FACP CCDS Ot E78.4 OTHER HYPERLIPIDEMIA 03/27/[address] [facility], ALI FACP CCDS Ot F17.200 NICOTINE DEPENDENCE, UNSPECIFIED, UNCOMP 03/27/[address] [facility], ALI FACP CCDS Ot I10 ESSENTIAL (PRIMARY) HYPERTENSION 03/27/[address] [facility], ALI FACP CCDS Ot I25.10 ATHSCL HEART DISEASE OF [place] CORONARY 03/27/[address] 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, ALI FACP CCDS Ot I70.213 ATHSCL [place] ARTERIES OF EXTRM W INTRMT 03/27/2020 ELIF MARIEE PHARMACY BENEFIT MANAGER Ot N43.3 HYDROCELE, UNSPECIFIED 03/27/2020 CARMEN HOYOS PHARMACY BENEFIT MANAGER Ot G47.33 OBSTRUCTIVE SLEEP APNEA (ADULT) (PEDIATR 03/27/2020 CARMEN HOYOS PHARMACY BENEFIT MANAGER Ot J44.9 CHRONIC OBSTRUCTIVE PULMONARY DISEASE, U 03/27/2020 CARMEN HOYOS PHARMACY BENEFIT MANAGER Ot Z72.0 TOBACCO USE 03/27/2020 CARMEN HOYOS PHARMACY BENEFIT MANAGER Ot G47.33 OBSTRUCTIVE SLEEP APNEA (ADULT) (PEDIATR 03/27/2020 CARMEN HOYOS PHARMACY BENEFIT MANAGER Ot J44.9 CHRONIC OBSTRUCTIVE PULMONARY DISEASE, U 03/27/2020 CARMEN HOYOS PHARMACY BENEFIT MANAGER Ot Z72.0 TOBACCO USE 03/27/2020 JENNA LOVING MD Ot L02.612 CUTANEOUS ABSCESS OF LEFT FOOT 03/27/2020 CARMEN HOYOS PHARMACY BENEFIT MANAGER Ot Z87.891 PERSONAL HISTORY OF NICOTINE DEPENDENCE 04/02/2020 RENETTA CARDOZA Ot 611.72 LUMP OR MASS IN BREAST 04/02/2020 RENETTA CARDOZA WEIGHT GUESSER Ot V16.3 FAMILY HX-BREAST MALIG 04/02/2020 [facility] T82.118A BREAKDOWN (MECHANICAL) OF CARDIAC ELECTR 04/02/2020 [facility] Ot Z01.810 ENCOUNTER FOR PREPROCEDURAL CARDIOVASCUL 04/02/2020 [facility] Ot Z01.812 ENCOUNTER FOR PREPROCEDURAL LABORATORY E 04/02/2020 [facility] Ot Z11. 2 ENCOUNTER FOR SCREENING FOR OTHER BACTER 04/02/2020 CARMEN HOYOS PHARMACY BENEFIT MANAGER Ot F17.200 NICOTINE DEPENDENCE, UNSPECIFIED, UNCOMP 04/02/2020 CARMEN HOYOS APRN Ot J44.9 CHRONIC OBSTRUCTIVE PULMONARY DISEASE, U 04/02/2020 CARMEN HOYOS APRN Ot R06.00 DYSPNEA, UNSPECIFIED 04/02/2020 RENETTA CARDOZAP Ot M25.561 PAIN IN RIGHT KNEE 04/02/2020 SHAKA ERAZO FACC, KAMRYN FACP CCDS Ot E78.5 HYPERLIPIDEMIA, UNSPECIFIED 04/02/2020 SHAKA ERAZO FACC, ALI FACP CCDS Ot I25.10 ATHSCL HEART DISEASE OF [place] CORONARY 04/02/2020 SHAKA ERAZO FACC, KAMRYN FACP CCDS Ot 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 04/02/2020 SHAKA ERAZO FACC, ALI FACP CCDS Ot R06.02 SHORTNESS OF BREATH 04/02/2020 CARMEN HOYOS APRN Ot F12.10 CANNABIS ABUSE, UNCOMPLICATED 04/02/2020 CARMEN HOYOS PHARMACY BENEFIT MANAGER Ot J44.9 CHRONIC OBSTRUCTIVE PULMONARY DISEASE, U 04/02/2020 CARMEN HOYOS PHARMACY BENEFIT MANAGER Ot Z72.0 TOBACCO USE 04/02/2020 SHAKA ERAZO FACC, KAMRYN RE[facility] CCDS Ot E78.5 HYPERLIPIDEMIA, UNSPECIFIED 04/02/2020 SHAKA ERAZO FACC, ALI FACP CCDS Ot I25.10 ATHSCL HEART DISEASE OF [place] CORONARY 04/02/2020 SHAKA ERAZO FACC, ALI FACP CCDS Ot I73.9 PERIPHERAL VASCULAR DISEASE, UNSPECIFIED 04/02/2020 SHAKA ERAZO FACC, ALI FACP CCDS Ot I77.89 OTHER SPECIFIED DISORDERS OF ARTERIES AN 04/02/2020 SHAKA ERAZO [facility], ALI FACP CCDS Ot R06.02 SHORTNESS OF BREATH 04/02/2020 SHAKA ERAZO [facility], ALI FACP CCDS Ot Z72.0 TOBACCO USE 04/02/2020 SHAKA ERAZO [facility], ALI FACP CCDS Ot E78.4 OTHER HYPERLIPIDEMIA 04/02/2020 SHAKA ERAZO [facility], ALI FACP CCDS Ot F17.200 NICOTINE DEPENDENCE, UNSPECIFIED, UNCOMP 04/02/2020 SHAKA ERAZO [facility], ALI FACP CCDS Ot I10 ESSENTIAL (PRIMARY) HYPERTENSION 04/02/2020 SHAKA ERAZO [facility], ALI FACP CCDS Ot I25.10 ATHSCL HEART DISEASE OF [place] CORONARY 04/02/2020 SHAKA ERAZO [facility], ALI FACP CCDS Ot 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 04/02/2020 SHAKA ERAZO [facility], ALI FACP CCDS Ot I70.213 ATHSCL [place] ARTERIES OF EXTRM W INTRMT 04/02/2020 ELIF MARIEE PHARMACY BENEFIT MANAGER Ot N43.3 HYDROCELE, UNSPECIFIED 04/02/2020 CARMEN HOYOS PHARMACY BENEFIT MANAGER Ot G47.33 OBSTRUCTIVE SLEEP APNEA (ADULT) (PEDIATR 04/02/2020 CARMEN HOYOS PHARMACY BENEFIT MANAGER Ot J44.9 CHRONIC OBSTRUCTIVE PULMONARY DISEASE, U 04/02/2020 CARMEN HOYOS PHARMACY BENEFIT MANAGER Ot Z72.0 TOBACCO USE 04/02/2020 CARMEN HOYOS PHARMACY BENEFIT MANAGER Ot G47.33 OBSTRUCTIVE SLEEP APNEA (ADULT) (PEDIATR 04/02/2020 CARMEN HOYOS PHARMACY BENEFIT MANAGER Ot J44.9 CHRONIC OBSTRUCTIVE PULMONARY DISEASE, U 04/02/2020 CARMEN HOYOS PHARMACY BENEFIT MANAGER Ot Z72.0 TOBACCO USE 04/02/2020 FABIENNE ERZAO, JENNA Humphrey Ot L02.612 CUTANEOUS ABSCESS OF LEFT FOOT 04/02/2020 CARMEN HOYOS PHARMACY BENEFIT MANAGER Ot Z87.891 PERSONAL HISTORY OF NICOTINE DEPENDENCE 04/08/2020 RENETTA CARDOZA WEIGHT GUESSER Ot 611.72 LU[place] OR MASS IN BREAST 04/08/2020 RENETTA CARDOZA WEIGHT GUESSER Ot V16.3 FAMILY HX-BREAST MALIG 04/08/2020 LANG HUDSON DO Ot T82.118A BREAKDOWN (MECHANICAL) OF CARDIAC ELECTR 04/08/2020 TRISTAN MYRICKLANG Ot Z01.810 ENCOUNTER FOR PREPROCEDURAL CARDIOVASCUL 04/08/2020 [facility] Ot Z01.812 ENCOUNTER FOR PREPROCEDURAL LABORATORY E 04/08/2020 [facility] Ot Z11. 2 ENCOUNTER FOR SCREENING FOR OTHER BACTER 04/08/2020 CARMEN HOYOS APRN Ot F17.200 NICOTINE DEPENDENCE, UNSPECIFIED, UNCOMP 04/08/2020 CARMEN HOYOS APRN Ot J44.9 CHRONIC OBSTRUCTIVE PULMONARY DISEASE, U 04/08/2020 CARMEN HOYOS APRN Ot R06.00 DYSPNEA, UNSPECIFIED 04/08/2020 RENETTA CARDOZA Ot M25.561 PAIN IN RIGHT KNEE 04/08/2020 SHAKA REES, ALI FACP CCDS Ot E78.5 HYPERLIPIDEMIA, UNSPECIFIED 04/08/2020 SHAKA REESC, ALI FACP CCDS Ot I25.10 ATHSCL HEART DISEASE OF [place] CORONARY 04/08/2020 SHAKA REES, ALI FACP CCDS Ot 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 04/08/2020 SHAKA ERAZO FACC, ALI FACP CCDS Ot R06.02 SHORTNESS OF BREATH 04/08/2020 CARMEN HOYOS APRN Ot F12.10 CANNABIS ABUSE, UNCOMPLICATED 04/08/2020 CARMEN HOYOS APRN Ot J44.9 CHRONIC OBSTRUCTIVE PULMONARY DISEASE, U 04/08/2020 CARMEN HOYOS APRN Ot Z72.0 TOBACCO USE 04/08/2020 SHAKA ERAZO FACC, KAMRYN FACP CCDS Ot E78.5 HYPERLIPIDEMIA, UNSPECIFIED 04/08/2020 SHAKA ERAZO FACC, ALI FACP CCDS Ot I25.10 ATHSCL HEART DISEASE OF [place] CORONARY 04/08/2020 SHAKA ERAZO FACC, ALI FACP CCDS Ot I73.9 PERIPHERAL VASCULAR DISEASE, UNSPECIFIED 04/08/2020 SHAKA ERAZO FACC, ALI FACP CCDS Ot I77.89 OTHER SPECIFIED DISORDERS OF ARTERIES AN 04/08/2020 SHAKA ERAZO FACC, ALI FACP CCDS Ot R06.02 SHORTNESS OF BREATH 04/08/2020 SHAKA ERAZO FACC, ALI FACP CCDS Ot Z72.0 TOBACCO USE 04/08/2020 SHAKA ERAZO FACC, [facility] CCD[facility] Ot E78.4 OTHER HYPERLIPIDEMIA 04/08/2020 SHAKA ERAZO [facility], ALI FACP CCDS Ot F17.200 NICOTINE DEPENDENCE, UNSPECIFIED, UNCOMP 04/08/2020 SHAKA ERAZO [facility], ALI FACP CCDS Ot I10 ESSENTIAL (PRIMARY) HYPERTENSION 04/08/2020 SHAKA ERAZO [facility], ALI FACP CCDS Ot I25.10 ATHSCL HEART DISEASE OF [place] CORONARY 04/08/2020 SHAKA ERAZO [facility], ALI FACP CCDS Ot 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 04/08/2020 SHAKA MD [facility], ALI FACP CCDS Ot I70.213 ATHSCL [place] ARTERIES OF EXTRM W INTRMT 04/08/2020 NWAGWELIF Redding O PHARMACY BENEFIT MANAGER Ot N43.3 HYDROCELE, UNSPECIFIED 04/08/2020 CARMEN HOYOS PHARMACY BENEFIT MANAGER Ot G47.33 OBSTRUCTIVE SLEEP APNEA (ADULT) (PEDIATR 04/08/2020 CARMEN HOYOS PHARMACY BENEFIT MANAGER Ot J44.9 CHRONIC OBSTRUCTIVE PULMONARY DISEASE, U 04/08/2020 CARMEN HOYOS PHARMACY BENEFIT MANAGER Ot Z72.0 TOBACCO USE 04/08/2020 CARMEN HOYOS PHARMACY BENEFIT MANAGER Ot G47.33 OBSTRUCTIVE SLEEP APNEA (ADULT) (PEDIATR 04/08/2020 CARMEN HOYOS PHARMACY BENEFIT MANAGER Ot J44.9 CHRONIC OBSTRUCTIVE PULMONARY DISEASE, U 04/08/2020 CARMEN HOYOS PHARMACY BENEFIT MANAGER Ot Z72.0 TOBACCO USE 04/08/2020 JENNA LOVING MD Ot L02.612 CUTANEOUS ABSCESS OF LEFT FOOT 04/08/2020 CARMEN HOYOS PHARMACY BENEFIT MANAGER Ot Z87.891 PERSONAL HISTORY OF NICOTINE DEPENDENCE 04/08/2020 RENETTA CARDOZA Ot 611.72 LU[place] OR MASS IN BREAST 04/08/2020 RENETTA CARDOZA Ot V16.3 FAMILY HX-BREAST MALIG 04/08/2020 LANG HUDSON DO Ot T82.118A BREAKDOWN (MECHANICAL) OF CARDIAC ELECTR 04/08/2020 LANG HUDSON DO Ot Z01.810 ENCOUNTER FOR PREPROCEDURAL CARDIOVASCUL 04/08/2020 LANG HUDSON DO Ot Z01.812 ENCOUNTER FOR PREPROCEDURAL LABORATORY E 04/08/2020 LANG HUDSON DO Ot Z11. 2 ENCOUNTER FOR SCREENING FOR OTHER BACTER 04/08/2020 CARMEN HOYOS PHARMACY BENEFIT MANAGER Ot F17.200 NICOTINE DEPENDENCE, UNSPECIFIED, UNCOMP 04/08/2020 CARMEN HOYOS APRN Ot J44.9 CHRONIC OBSTRUCTIVE PULMONARY DISEASE, U 04/08/2020 CARMEN HOYOS APRN Ot R06.00 DYSPNEA, UNSPECIFIED 04/08/2020 RENETTA CARDOZA Ot M25.561 PAIN IN RIGHT KNEE 04/08/2020 SHAKA ERAZO [facility], ALI FACP CCDS Ot E78.5 HYPERLIPIDEMIA, UNSPECIFIED 04/08/2020 SHAKA ERAZO [facility], ALI FACP CCDS Ot I25.10 ATHSCL HEART DISEASE OF [place] CORONARY 04/08/2020 SHAKA ERAZO [facility], ALI FACP CCDS Ot 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 04/08/2020 SHAKA ERAZO [facility], ALI FACP CCDS Ot R06.02 SHORTNESS OF BREATH 04/08/2020 CARMEN HOYOS APRN Ot F12.10 CANNABIS ABUSE, UNCOMPLICATED 04/08/2020 CARMEN HOYOS APRN Ot J44.9 CHRONIC OBSTRUCTIVE PULMONARY DISEASE, U 04/08/2020 CARMEN HOYOS APRN Ot Z72.0 TOBACCO USE 04/08/2020 SHAKA ERAZO [facility], ALI FACP CCDS Ot E78.5 HYPERLIPIDEMIA, UNSPECIFIED 04/08/2020 SHAKA ERAZO [facility], ALI FACP CCDS Ot I25.10 ATHSCL HEART DISEASE OF [place] CORONARY 04/08/2020 SHAKA ERAZO [facility], ALI FACP CCDS Ot I73.9 PERIPHERAL VASCULAR DISEASE, UNSPECIFIED 04/08/2020 SHAKA ERAZO [facility], ALI FACP CCDS Ot I77.89 OTHER SPECIFIED DISORDERS OF ARTERIES AN 04/08/2020 SHAKA ERAZO [facility], ALI FACP CCDS Ot R06.02 SHORTNESS OF BREATH 04/08/2020 SHAKA ERAZO [facility], ALI FACP CCDS Ot Z72.0 TOBACCO USE 04/08/2020 SHAKA ERAZO [facility], ALI FACP CCDS Ot E78.4 OTHER HYPERLIPIDEMIA 04/08/2020 SHAKA ERAZO FACC, ALI FACP CCDS Ot F17.200 NICOTINE DEPENDENCE, UNSPECIFIED, UNCOMP 04/08/2020 SHAKA ERAZO FAC, ALI FACP CCDS Ot I10 ESSENTIAL (PRIMARY) HYPERTENSION 04/08/2020 [facility]A REES, [facility] Ot I25.10 ATHSCL HEART DISEASE OF [place] CORONARY 04/08/2020 SHAKA ERAZO FACC, [facility]N [facility] CCDS Ot 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 04/08/2020 SHAKA ERAZO FACC, [facility] CCD[facility] Ot I70.213 ATHSCL [place] ARTERIES OF EXTRM W INTRMT 04/08/2020 NWAGWU, JACKYRE O PHARMACY BENEFIT MANAGER Ot N43.3 HYDROCELE, UNSPECIFIED 04/08/2020 CARMEN HOYOS PHARMACY BENEFIT MANAGER Ot G47.33 OBSTRUCTIVE SLEEP APNEA (ADULT) (PEDIATR 04/08/2020 CARMEN HOYOS APRN Ot J44.9 CHRONIC OBSTRUCTIVE PULMONARY DISEASE, U 04/08/2020 CARMEN HOYOS PHARMACY BENEFIT MANAGER Ot Z72.0 TOBACCO USE 04/08/2020 CARMEN HOYOS PHARMACY BENEFIT MANAGER Ot G47.33 OBSTRUCTIVE SLEEP APNEA (ADULT) (PEDIATR 04/08/2020 CARMEN HOYOS APRN Ot J44.9 CHRONIC OBSTRUCTIVE PULMONARY DISEASE, U 04/08/2020 CARMEN HOYOS PHARMACY BENEFIT MANAGER Ot Z72.0 TOBACCO USE 04/08/2020 FABIENNE ERAZO, JENNA Humphrey Ot L02.612 CUTANEOUS ABSCESS OF LEFT FOOT 04/08/2020 CARMEN HOYOS APRN Ot Z87.891 PERSONAL HISTORY OF NICOTINE DEPENDENCE 04/16/2020 RENETTA CARDOZA Ot 611.72 LU[place] OR MASS IN BREAST 04/16/2020 RENETTA CARDOZA WEIGHT GUESSER Ot V16.3 FAMILY HX-BREAST MALIG 04/16/2020 ESBON LANG MYRICK Ot T82.118A BREAKDOWN (MECHANICAL) OF CARDIAC ELECTR 04/16/2020 LANG HUDSON DO Ot Z01.810 ENCOUNTER FOR PREPROCEDURAL CARDIOVASCUL 04/16/2020 LANG HUDSON DO Ot Z01.812 ENCOUNTER FOR PREPROCEDURAL LABORATORY E 04/16/2020 HUDSON LANG MYRICK Ot Z11. 2 ENCOUNTER FOR SCREENING FOR OTHER BACTER 04/16/2020 CARMEN HOYOS APRN Ot F17.200 NICOTINE DEPENDENCE, UNSPECIFIED, UNCOMP 04/16/2020 CARMEN HOYOS APRN Ot J44.9 CHRONIC OBSTRUCTIVE PULMONARY DISEASE, U 04/16/2020 CARMEN HOYOS PHARMACY BENEFIT MANAGER Ot R06.00 DYSPNEA, UNSPECIFIED 04/16/2020 RENETTA CARDOZA Ot M25.561 PAIN IN RIGHT KNEE 04/16/2020 SHAKA ERAZO FACC, ALI FACP CCDS Ot E78.5 HYPERLIPIDEMIA, UNSPECIFIED 04/16/2020 SHAKA ERAZO FACC, ALI FACP CCDS Ot I25.10 ATHSCL HEART DISEASE OF [place] CORONARY 04/16/2020 SHAKA ERAZO FACC, ALI FACP CCDS Ot 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 04/16/2020 SHAKA ERAZO FACC, ALI FACP CCDS Ot R06.02 SHORTNESS OF BREATH 04/16/2020 CARMEN HOYOS APRN Ot F12.10 CANNABIS ABUSE, UNCOMPLICATED 04/16/2020 CARMEN HOYOS APRN Ot J44.9 CHRONIC OBSTRUCTIVE PULMONARY DISEASE, U 04/16/2020 CARMEN HOYOS APRN Ot Z72.0 TOBACCO USE 04/16/2020 [facility], [facility] FACP CCDS Ot E78.5 HYPERLIPIDEMIA, UNSPECIFIED 04/16/2020 SHAKA ERAZO [facility], ALI FACP CCDS Ot I25.10 ATHSCL HEART DISEASE OF [place] CORONARY 04/16/2020 SHAKA ERAZO FAC, ALI FACP CCDS Ot I73.9 PERIPHERAL VASCULAR DISEASE, UNSPECIFIED 04/16/2020 SHAKA ERAZO FACC, ALI FACP CCDS Ot I77.89 OTHER SPECIFIED DISORDERS OF ARTERIES AN 04/16/2020 SHAKA ERAZO FACC, ALI FACP CCDS Ot R06.02 SHORTNESS OF BREATH 04/16/2020 SHAKA ERAZO [facility], ALI FACP CCDS Ot Z72.0 TOBACCO USE 04/16/2020 SHAKA ERAZO FACC, ALI FACP CCDS Ot E78.4 OTHER HYPERLIPIDEMIA 04/16/2020 SHAKA ERAZO FACC, ALI FACP CCDS Ot F17.200 NICOTINE DEPENDENCE, UNSPECIFIED, UNCOMP 04/16/2020 SHAKA ERAZO FACC, ALI FACP CCDS Ot I10 ESSENTIAL (PRIMARY) HYPERTENSION 04/16/2020 SHAKA ERAZO FACC, ALI FACP CCDS Ot I25.10 ATHSCL HEART DISEASE OF [place] CORONARY 04/16/2020 SHAKA ERAZO FACC, ALI FACP CCDS Ot 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 04/16/2020 SHAKA ERAZO FAC, ALI FACP CCDS Ot I70.213 ATHSCL [place] ARTERIES OF EXTRM W INTRMT 04/16/2020 ELIF MARIEE PHARMACY BENEFIT MANAGER Ot N43.3 HYDROCELE, UNSPECIFIED 04/16/2020 CARMEN HOYOS PHARMACY BENEFIT MANAGER Ot G47.33 OBSTRUCTIVE SLEEP APNEA (ADULT) (PEDIATR 04/16/2020 CARMEN HOYOS PHARMACY BENEFIT MANAGER Ot J44.9 CHRONIC OBSTRUCTIVE PULMONARY DISEASE, U 04/16/2020 CARMEN HOYOS PHARMACY BENEFIT MANAGER Ot Z72.0 TOBACCO USE 04/16/2020 CARMEN HOYOS PHARMACY BENEFIT MANAGER Ot G47.33 OBSTRUCTIVE SLEEP APNEA (ADULT) (PEDIATR 04/16/2020 CARMEN HOYOS PHARMACY BENEFIT MANAGER Ot J44.9 CHRONIC OBSTRUCTIVE PULMONARY DISEASE, U 04/16/2020 CARMEN HOYOS PHARMACY BENEFIT MANAGER Ot Z72.0 TOBACCO USE 04/16/2020 FABIENNE ERAZO, JENNA Humphrey Ot L02.612 CUTANEOUS ABSCESS OF LEFT FOOT 04/16/2020 CARMEN HOYOS PHARMACY BENEFIT MANAGER Ot Z87.891 PERSONAL HISTORY OF NICOTINE DEPENDENCE 04/23/2020 RENETTA CARDOZA Ot 611.72 LUMP OR MASS IN BREAST 04/23/2020 RENETTA CARDOZA Ot V16.3 FAMILY HX-BREAST MALIG 04/23/2020 [facility] Ot T82.118A BREAKDOWN (MECHANICAL) OF CARDIAC ELECTR 04/23/2020 [facility] Ot Z01.810 ENCOUNTER FOR PREPROCEDURAL CARDIOVASCUL 04/23/2020 [facility] Ot Z01.812 ENCOUNTER FOR PREPROCEDURAL LABORATORY E 04/23/2020 [facility] Ot Z11. 2 ENCOUNTER FOR SCREENING FOR OTHER BACTER 04/23/2020 CARMEN HOYOS PHARMACY BENEFIT MANAGER Ot F17.200 NICOTINE DEPENDENCE, UNSPECIFIED, UNCOMP 04/23/2020 CARMEN HOYOS PHARMACY BENEFIT MANAGER Ot J44.9 CHRONIC OBSTRUCTIVE PULMONARY DISEASE, U 04/23/2020 CARMEN HOYOS PHARMACY BENEFIT MANAGER Ot R06.00 DYSPNEA, UNSPECIFIED 04/23/2020 RENETTA CARDOZA WEIGHT GUESSER Ot M25.561 PAIN IN RIGHT KNEE 04/23/2020 SHAKA ERAZO FACC, ALI FACP CCDS Ot E78.5 HYPERLIPIDEMIA, UNSPECIFIED 04/23/2020 [facility], ALI FACP CCDS Ot I25.10 ATHSCL HEART DISEASE OF [place] CORONARY 04/23/2020 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, ALI FACP CCDS Ot R06.02 SHORTNESS OF BREATH 04/23/2020 CARMEN HOYOS PHARMACY BENEFIT MANAGER Ot F12.10 CANNABIS ABUSE, UNCOMPLICATED 04/23/2020 CARMEN HOYOS PHARMACY BENEFIT MANAGER Ot J44.9 CHRONIC OBSTRUCTIVE PULMONARY DISEASE, U 04/23/2020 CARMEN HOYOS PHARMACY BENEFIT MANAGER Ot Z72.0 TOBACCO USE 04/23/2020 [facility], ALI FACP CCDS Ot E78.5 HYPERLIPIDEMIA, UNSPECIFIED 04/23/2020 [facility], ALI FACP CCDS Ot I25.10 ATHSCL HEART DISEASE OF [place] CORONARY 04/23/2020 [facility], ALI FACP CCDS Ot I73.9 PERIPHERAL VASCULAR DISEASE, UNSPECIFIED 04/23/2020 [facility], ALI FACP CCDS Ot I77.89 OTHER SPECIFIED DISORDERS OF ARTERIES AN 04/23/2020 SHAKA ERAZO [facility], ALI FACP CCDS Ot R06.02 SHORTNESS OF BREATH 04/23/2020 [facility], ALI FACP CCDS Ot Z72.0 TOBACCO USE 04/23/[address] [facility], ALI FACP CCDS Ot E78.4 OTHER HYPERLIPIDEMIA 04/23/2020 [facility], ALI FACP CCDS Ot F17.200 NICOTINE DEPENDENCE, UNSPECIFIED, UNCOMP 04/23/[address] [facility], ALI FACP CCDS Ot I10 ESSENTIAL (PRIMARY) HYPERTENSION 04/23/[address] [facility], ALI FACP CCDS Ot I25.10 ATHSCL HEART DISEASE OF [place] CORONARY 04/23/2020 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, ALI FACP CCDS Ot I70.213 ATHSCL [place] ARTERIES OF EXTRM W INTRMT 04/23/2020 NWAGWU, JACKYRE O PHARMACY BENEFIT MANAGER Ot N43.3 HYDROCELE, UNSPECIFIED 04/23/2020 CARMEN HOYOS PHARMACY BENEFIT MANAGER Ot G47.33 OBSTRUCTIVE SLEEP APNEA (ADULT) (PEDIATR 04/23/2020 CARMEN HOYOS PHARMACY BENEFIT MANAGER Ot J44.9 CHRONIC OBSTRUCTIVE PULMONARY DISEASE, U 04/23/2020 CARMEN HOYOS PHARMACY BENEFIT MANAGER Ot Z72.0 TOBACCO USE 04/23/2020 CARMEN HOYOS PHARMACY BENEFIT MANAGER Ot G47.33 OBSTRUCTIVE SLEEP APNEA (ADULT) (PEDIATR 04/23/2020 CARMEN HOYOS PHARMACY BENEFIT MANAGER Ot J44.9 CHRONIC OBSTRUCTIVE PULMONARY DISEASE, U 04/23/2020 CARMEN HOYOS PHARMACY BENEFIT MANAGER Ot Z72.0 TOBACCO USE 04/23/2020 FABIENNE ERAZO, JENNA Humphrey Ot L02.612 CUTANEOUS ABSCESS OF LEFT FOOT 04/23/2020 CARMEN HOYOS PHARMACY BENEFIT MANAGER Ot Z87.891 PERSONAL HISTORY OF NICOTINE DEPENDENCE 04/23/2020 RENETTA CARDOZA Ot 611.72 LUMP OR MASS IN BREAST 04/23/2020 RENETTA CARDOZA Ot V16.3 FAMILY HX-BREAST MALIG 04/23/2020 [facility] Ot T82.118A BREAKDOWN (MECHANICAL) OF CARDIAC ELECTR 04/23/2020 HUDSON LANG MYRICK Ot Z01.810 ENCOUNTER FOR PREPROCEDURAL CARDIOVASCUL 04/23/2020 [facility] Ot Z01.812 ENCOUNTER FOR PREPROCEDURAL LABORATORY E 04/23/2020 [facility] Ot Z11. 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 04/23/2020 SHAKA ERAZO [facility], ALI FACP CCDS Ot R06.02 SHORTNESS OF BREATH 04/23/2020 CARMEN HOYOS APRN Ot F12.10 CANNABIS ABUSE, UNCOMPLICATED 04/23/2020 CARMEN HOYOS PHARMACY BENEFIT MANAGER Ot J44.9 CHRONIC OBSTRUCTIVE PULMONARY DISEASE, U 04/23/2020 CARMEN HOYOS PHARMACY BENEFIT MANAGER Ot Z72.0 TOBACCO USE 04/23/2020 SHAKA ERAZO [facility], ALI FACP CCDS Ot E78.5 HYPERLIPIDEMIA, UNSPECIFIED 04/23/2020 SHAKA ERAZO [facility], ALI FACP CCDS Ot I25.10 ATHSCL HEART DISEASE OF [place] CORONARY 04/23/2020 SHAKA ERAZO [facility], ALI FACP CCDS Ot I73.9 PERIPHERAL VASCULAR DISEASE, UNSPECIFIED 04/23/2020 SHAKA ERAZO [facility], ALI FACP CCDS Ot I77.89 OTHER SPECIFIED DISORDERS OF ARTERIES AN 04/23/2020 SHAKA ERAZO [facility], ALI FACP CCDS Ot R06.02 SHORTNESS OF BREATH 04/23/2020 SHAKA ERAZO [facility], ALI FACP CCDS Ot Z72.0 TOBACCO USE 04/23/2020 SHAKA ERAZO [facility], ALI FACP CCDS Ot E78.4 OTHER HYPERLIPIDEMIA 04/23/2020 SHAKA ERAZO [facility], ALI FACP CCDS Ot F17.200 NICOTINE DEPENDENCE, UNSPECIFIED, UNCOMP 04/23/2020 SHAKA ERAZO [facility], ALI FACP CCDS Ot I10 ESSENTIAL (PRIMARY) HYPERTENSION 04/23/2020 SHAKA ERAZO [facility], ALI FACP CCDS Ot I25.10 ATHSCL HEART DISEASE OF [place] CORONARY 04/23/2020 SHAKA ERAZO [facility], ALI FACP CCDS Ot 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 04/23/2020 SHAKA ERAZO [facility], ALI FACP CCDS Ot I70.213 ATHSCL [place] ARTERIES OF EXTRM W INTRMT 04/23/2020 NWSTEPHANIEWELIF [facility] BENEFIT MANAGER Ot N43.3 HYDROCELE, UNSPECIFIED 04/23/2020 CARMEN HOYOS PHARMACY BENEFIT MANAGER Ot G47.33 OBSTRUCTIVE SLEEP APNEA (ADULT) (PEDIATR 04/23/2020 CARMEN HOYOS PHARMACY BENEFIT MANAGER Ot J44.9 CHRONIC OBSTRUCTIVE PULMONARY DISEASE, U 04/23/2020 CARMEN HOYOS APRN Ot Z72.0 TOBACCO USE 04/23/2020 CARMEN HOYOS APRN Ot G47.33 OBSTRUCTIVE SLEEP APNEA (ADULT) (PEDIATR 04/23/2020 CARMEN HOYOS APRN Ot J44.9 CHRONIC OBSTRUCTIVE PULMONARY DISEASE, U 04/23/2020 CARMEN HOYOS APRN Ot Z72.0 TOBACCO USE 04/23/2020 FABIENNE ERAZO, JENNA Humphrey Ot L02.612 CUTANEOUS ABSCESS OF LEFT FOOT 04/23/2020 CARMEN HOYOS APRN Ot Z87.891 PERSONAL HISTORY OF NICOTINE DEPENDENCE 04/23/2020 RENETTA CARDOZA Ot 611.72 LUMP OR MASS IN BREAST 04/23/2020 RENETTA CARDOZA Ot V16.3 FAMILY HX-BREAST MALIG 04/23/2020 [facility] Ot T82.118A BREAKDOWN (MECHANICAL) OF CARDIAC ELECTR 04/23/2020 HUDSON DOLANG Ot Z01.810 ENCOUNTER FOR PREPROCEDURAL CARDIOVASCUL 04/23/2020 [facility] Ot Z01.812 ENCOUNTER FOR PREPROCEDURAL LABORATORY E 04/23/2020 [facility] Ot Z11. 2 ENCOUNTER FOR SCREENING FOR OTHER BACTER 04/23/2020 CARMEN HOYOS APRN Ot F17.200 NICOTINE DEPENDENCE, UNSPECIFIED, UNCOMP 04/23/2020 CARMEN HOYOS APRN Ot J44.9 CHRONIC OBSTRUCTIVE PULMONARY DISEASE, U 04/23/2020 CARMEN HOYOS APRN Ot R06.00 DYSPNEA, UNSPECIFIED 04/23/2020 RENETTA CARDOZA Ot M25.561 PAIN IN RIGHT KNEE 04/23/2020 SHAKA ERAZO FAC, ALI FACP CCDS Ot E78.5 HYPERLIPIDEMIA, UNSPECIFIED 04/23/2020 SHAKA ERAZO FACC, ALI FACP CCDS Ot I25.10 ATHSCL HEART DISEASE OF [place] CORONARY 04/23/2020 SHAKA REESC, ALI FACP CCDS Ot 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 04/23/2020 SHAKA ERAZO FACC, ALI FACP CCDS Ot R06.02 SHORTNESS OF BREATH 04/23/2020 CARMEN HOYOS APRN Ot F12.10 CANNABIS ABUSE, UNCOMPLICATED 04/23/2020 ESA HOYOSINE E PHARMACY BENEFIT MANAGER Ot J44.9 CHRONIC OBSTRUCTIVE PULMONARY DISEASE, U 04/23/2020 ESA HOYOSINE E PHARMACY BENEFIT MANAGER Ot Z72.0 TOBACCO USE 04/23/2020 [facility]AKA [facility], ALI FACP CCDS Ot E78.5 HYPERLIPIDEMIA, UNSPECIFIED 04/23/2020 [facility], ALI FACP CCDS Ot I25.10 ATHSCL HEART DISEASE OF [place] CORONARY 04/23/2020 [facility], ALI FACP CCDS Ot I73.9 PERIPHERAL VASCULAR DISEASE, UNSPECIFIED 04/23/2020 [facility], ALI FACP CCDS Ot I77.89 OTHER SPECIFIED DISORDERS OF ARTERIES AN 04/23/2020 [facility], ALI FACP CCDS Ot R06.02 SHORTNESS OF BREATH 04/23/2020 [facility], ALI FACP CCDS Ot Z72.0 TOBACCO USE 04/23/2020 [facility], ALI FACP CCDS Ot E78.4 OTHER HYPERLIPIDEMIA 04/23/2020 [facility], ALI FACP CCDS Ot F17.200 NICOTINE DEPENDENCE, UNSPECIFIED, UNCOMP 04/23/2020 [facility], ALI FACP CCDS Ot I10 ESSENTIAL (PRIMARY) HYPERTENSION 04/23/2020 [facility], ALI FACP CCDS Ot I25.10 ATHSCL HEART DISEASE OF [place] CORONARY 04/23/2020 [facility], ALI FACP CCDS Ot 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 04/23/2020 [facility], ALI FACP CCDS Ot I70.213 ATHSCL [place] ARTERIES OF EXTRM W INTRMT 04/23/2020 NWAGWU, JACKYRE O PHARMACY BENEFIT MANAGER Ot N43.3 HYDROCELE, UNSPECIFIED 04/23/2020 ESA HOYOSINE E PHARMACY BENEFIT MANAGER Ot G47.33 OBSTRUCTIVE SLEEP APNEA (ADULT) (PEDIATR 04/23/2020 ESA HOYOSINE E PHARMACY BENEFIT MANAGER Ot J44.9 CHRONIC OBSTRUCTIVE PULMONARY DISEASE, U 04/23/2020 ESA HOYOSINE E PHARMACY BENEFIT MANAGER Ot Z72.0 TOBACCO USE 04/23/2020 ESA HOYOSINE E PHARMACY BENEFIT MANAGER Ot G47.33 OBSTRUCTIVE SLEEP APNEA (ADULT) (PEDIATR 04/23/2020 SOHA, CARMEN E PHARMACY BENEFIT MANAGER Ot J44.9 CHRONIC OBSTRUCTIVE PULMONARY DISEASE, U 04/23/2020 CARMEN HOYOS APRN Ot Z72.0 TOBACCO USE 04/23/2020 FABIENNE ERAZO, JENNA Humphrey Ot L02.612 CUTANEOUS ABSCESS OF LEFT FOOT 04/23/2020 CARMEN HOYOS APRN Ot Z87.891 PERSONAL HISTORY OF NICOTINE DEPENDENCE 04/24/2020 RENETTA CARDOZA Ot 611.72 LU[place] OR MASS IN BREAST 04/24/2020 RENETTA CARDOZA Ot V16.3 FAMILY HX-BREAST MALIG 04/24/2020 ESBON LANG MYRICK Ot T82.118A BREAKDOWN (MECHANICAL) OF CARDIAC ELECTR 04/24/2020 HUDSON DOLANG Ot Z01.810 ENCOUNTER FOR PREPROCEDURAL CARDIOVASCUL 04/24/2020 [facility] Z01.812 ENCOUNTER FOR PREPROCEDURAL LABORATORY E 04/24/2020 [facility] Ot Z11. 2 ENCOUNTER FOR SCREENING FOR OTHER BACTER 04/24/2020 CARMEN HOYOS APRN Ot F17.200 NICOTINE DEPENDENCE, UNSPECIFIED, UNCOMP 04/24/2020 CARMEN HOYOS APRN Ot J44.9 CHRONIC OBSTRUCTIVE PULMONARY DISEASE, U 04/24/2020 CARMEN HOYOS APRN Ot R06.00 DYSPNEA, UNSPECIFIED 04/24/2020 RENETTA CARDOZA Ot M25.561 PAIN IN RIGHT KNEE 04/24/2020 SHAKA ERAZO FACC, ALI FACP CCDS Ot E78.5 HYPERLIPIDEMIA, UNSPECIFIED 04/24/2020 SHAKA ERAZO FACC, ALI FACP CCDS Ot I25.10 ATHSCL HEART DISEASE OF [place] CORONARY 04/24/2020 SHAKA ERAZO FACC, ALI FACP CCDS Ot 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 04/24/2020 SHAKA ERAZO FACC, ALI FACP CCDS Ot R06.02 SHORTNESS OF BREATH 04/24/2020 CARMEN HOYOS APRN Ot F12.10 CANNABIS ABUSE, UNCOMPLICATED 04/24/2020 CARMEN HOYOS APRN Ot J44.9 CHRONIC OBSTRUCTIVE PULMONARY DISEASE, U 04/24/2020 CARMEN HOYOS APRN Ot Z72.0 TOBACCO USE 04/24/2020 SHAKA ERAZO FACC, ALI FACP CCDS Ot E78.5 HYPERLIPIDEMIA, UNSPECIFIED 04/24/2020 [facility], ALI FACP CCDS Ot I25.10 ATHSCL HEART DISEASE OF [place] CORONARY 04/24/2020 [facility], ALI FACP CCDS Ot I73.9 PERIPHERAL VASCULAR DISEASE, UNSPECIFIED 04/24/2020 [facility], ALI FACP CCDS Ot I77.89 OTHER SPECIFIED DISORDERS OF ARTERIES AN 04/24/2020 [facility], ALI FACP CCDS Ot R06.02 SHORTNESS OF BREATH 04/24/2020 [facility], ALI FACP CCDS Ot Z72.0 TOBACCO USE 04/24/2020 [facility], ALI FACP CCDS Ot E78.4 OTHER HYPERLIPIDEMIA 04/24/2020 [facility], ALI FACP CCDS Ot F17.200 NICOTINE DEPENDENCE, UNSPECIFIED, UNCOMP 04/24/2020 [facility], ALI FACP CCDS Ot I10 ESSENTIAL (PRIMARY) HYPERTENSION 04/24/2020 [facility], ALI FACP CCDS Ot I25.10 ATHSCL HEART DISEASE OF [place] CORONARY 04/24/2020 [facility], ALI FACP CCDS Ot 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 04/24/2020 [facility], ALI FACP CCDS Ot I70.213 ATHSCL [place] ARTERIES OF EXTRM W INTRMT 04/24/2020 ELIF MARIEE O PHARMACY BENEFIT MANAGER Ot N43.3 HYDROCELE, UNSPECIFIED 04/24/2020 CARMEN HOYOS PHARMACY BENEFIT MANAGER Ot G47.33 OBSTRUCTIVE SLEEP APNEA (ADULT) (PEDIATR 04/24/2020 CARMEN HOYOS E PHARMACY BENEFIT MANAGER Ot J44.9 CHRONIC OBSTRUCTIVE PULMONARY DISEASE, U 04/24/2020 CARMEN HOYOS PHARMACY BENEFIT MANAGER Ot Z72.0 TOBACCO USE 04/24/2020 CARMEN HOYOS PHARMACY BENEFIT MANAGER Ot G47.33 OBSTRUCTIVE SLEEP APNEA (ADULT) (PEDIATR 04/24/2020 CARMEN HOYOS PHARMACY BENEFIT MANAGER Ot J44.9 CHRONIC OBSTRUCTIVE PULMONARY DISEASE, U 04/24/2020 CARMEN HOYOS PHARMACY BENEFIT MANAGER Ot Z72.0 TOBACCO USE 04/24/2020 FABIENNE ERAZO, JENNA Humphrey Ot L02.612 CUTANEOUS ABSCESS OF LEFT FOOT 04/24/2020 CARMEN HOYOS APRN Ot Z87.891 PERSONAL HISTORY OF NICOTINE DEPENDENCE 04/25/2020 CARMEN HOYOS APRN Ot J44.9 CHRONIC OBSTRUCTIVE PULMONARY DISEASE, U 04/27/2020 RENETTA CARDOZA Ot 611.72 [place] OR MASS IN BREAST 04/27/2020 RENETTA CARDOZA Ot V16.3 FAMILY HX-BREAST MALIG 04/27/2020 ESBON LANG MYRICK Ot T82.118A BREAKDOWN (MECHANICAL) OF CARDIAC ELECTR 04/27/2020 HUDSON DOLANG Ot Z01.810 ENCOUNTER FOR PREPROCEDURAL CARDIOVASCUL 04/27/2020 [facility] Z01.812 ENCOUNTER FOR PREPROCEDURAL LABORATORY E 04/27/2020 [facility] Ot Z11. 2 ENCOUNTER FOR SCREENING FOR OTHER BACTER 04/27/2020 CARMEN HOYOS APRN Ot F17.200 NICOTINE DEPENDENCE, UNSPECIFIED, UNCOMP 04/27/2020 CARMEN HOYOS APRN Ot J44.9 CHRONIC OBSTRUCTIVE PULMONARY DISEASE, U 04/27/2020 CARMEN HOYOS APRN Ot R06.00 DYSPNEA, UNSPECIFIED 04/27/2020 RENETTA CARDOZA Ot M25.561 PAIN IN RIGHT KNEE 04/27/2020 SHAKA ERAZO FACC, ALI FACP CCDS Ot E78.5 HYPERLIPIDEMIA, UNSPECIFIED 04/27/2020 SHAKA ERAZO FACC, ALI FACP CCDS Ot I25.10 ATHSCL HEART DISEASE OF [place] CORONARY 04/27/2020 SHAKA ERAZO FACC, ALI FACP CCDS Ot 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 04/27/2020 SHAKA ERAZO FACC, ALI FACP CCDS Ot R06.02 SHORTNESS OF BREATH 04/27/2020 CARMEN HOYOS APRN Ot F12.10 CANNABIS ABUSE, UNCOMPLICATED 04/27/2020 CARMEN HOYOS APRN Ot J44.9 CHRONIC OBSTRUCTIVE PULMONARY DISEASE, U 04/27/2020 CARMEN HOYOS APRN Ot Z72.0 TOBACCO USE 04/27/2020 SHAKA ERAZO FACC, ALI FACP CCDS Ot E78.5 HYPERLIPIDEMIA, UNSPECIFIED 04/27/2020 SHAKA ERAZO FACC, ALI FACP CCDS Ot I25.10 ATHSCL HEART DISEASE OF [place] CORONARY 04/27/[address] [facility], ALI FACP CCDS Ot I73.9 PERIPHERAL VASCULAR DISEASE, UNSPECIFIED 04/27/[address] [facility], ALI FACP CCDS Ot I77.89 OTHER SPECIFIED DISORDERS OF ARTERIES AN 04/27/2020 [facility], ALI FACP CCDS Ot R06.02 SHORTNESS OF BREATH 04/27/[address] [facility], ALI FACP CCDS Ot Z72.0 TOBACCO USE 04/27/[address] [facility], ALI FACP CCDS Ot E78.4 OTHER HYPERLIPIDEMIA 04/27/[address] [facility], ALI FACP CCDS Ot F17.200 NICOTINE DEPENDENCE, UNSPECIFIED, UNCOMP 04/27/[address] [facility], ALI FACP CCDS Ot I10 ESSENTIAL (PRIMARY) HYPERTENSION 04/27/[address] [facility], ALI FACP CCDS Ot I25.10 ATHSCL HEART DISEASE OF [place] CORONARY 04/27/[address] [facility], ALI FACP CCDS Ot 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 04/27/2020 [facility], ALI FACP CCDS Ot I70.213 ATHSCL [place] ARTERIES OF EXTRM W INTRMT 04/27/2020 ELIF MARIEE PHARMACY BENEFIT MANAGER Ot N43.3 HYDROCELE, UNSPECIFIED 04/27/2020 CARMEN HOYOS APRN Ot G47.33 OBSTRUCTIVE SLEEP APNEA (ADULT) (PEDIATR 04/27/2020 CARMEN HOYOS PHARMACY BENEFIT MANAGER Ot J44.9 CHRONIC OBSTRUCTIVE PULMONARY DISEASE, U 04/27/2020 CARMEN HOYOS PHARMACY BENEFIT MANAGER Ot Z72.0 TOBACCO USE 04/27/2020 CARMEN HOYOS PHARMACY BENEFIT MANAGER Ot G47.33 OBSTRUCTIVE SLEEP APNEA (ADULT) (PEDIATR 04/27/2020 CARMEN HOYOS PHARMACY BENEFIT MANAGER Ot J44.9 CHRONIC OBSTRUCTIVE PULMONARY DISEASE, U 04/27/2020 CARMEN HOYOS APRN Ot Z72.0 TOBACCO USE 04/27/2020 FABIENNE ERAZO, JENNA Humphrey Ot L02.612 CUTANEOUS ABSCESS OF LEFT FOOT 04/27/2020 CARMEN HOYOS APRN Ot Z87.891 PERSONAL HISTORY OF NICOTINE DEPENDENCE 04/27/2020 CARMEN HOYOS PHARMACY BENEFIT MANAGER Ot J44.9 CHRONIC OBSTRUCTIVE PULMONARY DISEASE, U 04/27/2020 RENETTA CARDOZA Ot 611.72 [place] OR MASS IN BREAST 04/27/2020 RENETTA CARDOZA Ot V16.3 FAMILY HX-BREAST MALIG 04/27/2020 [facility] Ot T82.118A BREAKDOWN (MECHANICAL) OF CARDIAC ELECTR 04/27/2020 [facility] Ot Z01.810 ENCOUNTER FOR PREPROCEDURAL CARDIOVASCUL 04/27/2020 [facility] Ot Z01.812 ENCOUNTER FOR PREPROCEDURAL LABORATORY E 04/27/2020 [facility] Ot Z11. 2 ENCOUNTER FOR SCREENING FOR OTHER BACTER 04/27/2020 CARMEN HOYOS APRN Ot F17.200 NICOTINE DEPENDENCE, UNSPECIFIED, UNCOMP 04/27/2020 CARMEN HOYOS APRN Ot J44.9 CHRONIC OBSTRUCTIVE PULMONARY DISEASE, U 04/27/2020 CARMEN HOYOS APRN Ot R06.00 DYSPNEA, UNSPECIFIED 04/27/2020 RENETTA CARDOZA Ot M25.561 PAIN IN RIGHT KNEE 04/27/2020 SHAKA ERAZO FACC, ALI FACP CCDS Ot E78.5 HYPERLIPIDEMIA, UNSPECIFIED 04/27/2020 SHAKA ERAZO FACC, ALI FACP CCDS Ot I25.10 ATHSCL HEART DISEASE OF [place] CORONARY 04/27/2020 SHAKA ERAZO FACC, ALI FACP CCDS Ot 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 04/27/2020 SHAKA ERAZO FACC, ALI FACP CCDS Ot R06.02 SHORTNESS OF BREATH 04/27/2020 CARMEN HOYOS APRN Ot F12.10 CANNABIS ABUSE, UNCOMPLICATED 04/27/2020 CARMEN HOYOS APRN Ot J44.9 CHRONIC OBSTRUCTIVE PULMONARY DISEASE, U 04/27/2020 CARMEN HOYOS APRN Ot Z72.0 TOBACCO USE 04/27/2020 SHAKA ERAZO FACC, ALI FACP CCDS Ot E78.5 HYPERLIPIDEMIA, UNSPECIFIED 04/27/2020 SHAKA ERAZO FACC, ALI FACP CCDS Ot I25.10 ATHSCL HEART DISEASE OF [place] CORONARY 04/27/2020 SHAKA ERAZO FACC, ALI FACP CCDS Ot I73.9 PERIPHERAL VASCULAR DISEASE, UNSPECIFIED 04/27/2020 [facility], ALI FACP CCDS Ot I77.89 OTHER SPECIFIED DISORDERS OF ARTERIES AN 04/27/2020 SHAKA ERAZO [facility], ALI FACP CCDS Ot R06.02 SHORTNESS OF BREATH 04/27/2020 [facility], ALI FACP CCDS Ot Z72.0 TOBACCO USE 04/27/2020 [facility], ALI FACP CCDS Ot E78.4 OTHER HYPERLIPIDEMIA 04/27/2020 [facility], ALI FACP CCDS Ot F17.200 NICOTINE DEPENDENCE, UNSPECIFIED, UNCOMP 04/27/2020 [facility], ALI FACP CCDS Ot I10 ESSENTIAL (PRIMARY) HYPERTENSION 04/27/2020 [facility], ALI FACP CCDS Ot I25.10 ATHSCL HEART DISEASE OF [place] CORONARY 04/27/2020 [facility], ALI FACP CCDS Ot 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 04/27/2020 [facility], ALI FACP CCDS Ot I70.213 ATHSCL [place] ARTERIES OF EXTRM W INTRMT 04/27/2020 NWAGWU, JACKYRE O PHARMACY BENEFIT MANAGER Ot N43.3 HYDROCELE, UNSPECIFIED 04/27/2020 CARMEN HOYOS PHARMACY BENEFIT MANAGER Ot G47.33 OBSTRUCTIVE SLEEP APNEA (ADULT) (PEDIATR 04/27/2020 CARMEN HOYOS PHARMACY BENEFIT MANAGER Ot J44.9 CHRONIC OBSTRUCTIVE PULMONARY DISEASE, U 04/27/2020 CARMEN HOYOS PHARMACY BENEFIT MANAGER Ot Z72.0 TOBACCO USE 04/27/2020 CARMEN HOYOS PHARMACY BENEFIT MANAGER Ot G47.33 OBSTRUCTIVE SLEEP APNEA (ADULT) (PEDIATR 04/27/2020 CARMEN HOYOS PHARMACY BENEFIT MANAGER Ot J44.9 CHRONIC OBSTRUCTIVE PULMONARY DISEASE, U 04/27/2020 CARMEN HOYOS PHARMACY BENEFIT MANAGER Ot Z72.0 TOBACCO USE 04/27/2020 FABIENNE ERAZO, JENNA Humphrey Ot L02.612 CUTANEOUS ABSCESS OF LEFT FOOT 04/27/2020 CARMEN HOYOS PHARMACY BENEFIT MANAGER Ot Z87.891 PERSONAL HISTORY OF NICOTINE DEPENDENCE 04/27/2020 CARMEN HOYOS PHARMACY BENEFIT MANAGER Ot J44.9 CHRONIC OBSTRUCTIVE PULMONARY DISEASE, U 04/27/2020 CARMEN HOYOS PHARMACY BENEFIT MANAGER Ot F12.10 CANNABIS ABUSE, UNCOMPLICATED 04/27/2020 CARMEN HOYOS APRN Ot J44.9 CHRONIC OBSTRUCTIVE PULMONARY DISEASE, U 04/27/2020 CARMEN HOYOS APRN Ot Z72.0 TOBACCO USE 04/27/2020 CARMEN HOYOS APRN Ot Z87.891 PERSONAL HISTORY OF NICOTINE DEPENDENCE 04/27/2020 CARMEN HOYOS APRN Ot J44.9 CHRONIC OBSTRUCTIVE PULMONARY DISEASE, U 04/28/2020 RENETTA CARDOZA Ot 611.72 [place] OR MASS IN BREAST 04/28/2020 RENETTA CARDOZA Ot V16.3 FAMILY HX-BREAST MALIG 04/28/2020 ESBON LANG MYRICK Ot T82.118A BREAKDOWN (MECHANICAL) OF CARDIAC ELECTR 04/28/2020 HUDSON DOLANG Ot Z01.810 ENCOUNTER FOR PREPROCEDURAL CARDIOVASCUL 04/28/2020 [facility] Ot Z01.812 ENCOUNTER FOR PREPROCEDURAL LABORATORY E 04/28/2020 [facility] Ot Z11. 2 ENCOUNTER FOR SCREENING FOR OTHER BACTER 04/28/2020 CARMEN HOYOS APRN Ot F17.200 NICOTINE DEPENDENCE, UNSPECIFIED, UNCOMP 04/28/2020 CARMEN HOYOS APRN Ot J44.9 CHRONIC OBSTRUCTIVE PULMONARY DISEASE, U 04/28/2020 CARMEN HOYOS APRN Ot R06.00 DYSPNEA, UNSPECIFIED 04/28/2020 RENETTA CARDOZA Ot M25.561 PAIN IN RIGHT KNEE 04/28/2020 SHAKA ERAZO FACC, ALI FACP CCDS Ot E78.5 HYPERLIPIDEMIA, UNSPECIFIED 04/28/2020 SHAKA ERAZO FACC, ALI FACP CCDS Ot I25.10 ATHSCL HEART DISEASE OF [place] CORONARY 04/28/2020 SHAKA ERAZO FACC, ALI FACP CCDS Ot 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 04/28/2020 SHAKA ERAZO FACC, ALI FACP CCDS Ot R06.02 SHORTNESS OF BREATH 04/28/2020 CARMEN HOYOS PHARMACY BENEFIT MANAGER Ot F12.10 CANNABIS ABUSE, UNCOMPLICATED 04/28/2020 CARMEN HOYOS PHARMACY BENEFIT MANAGER Ot J44.9 CHRONIC OBSTRUCTIVE PULMONARY DISEASE, U 04/28/2020 CARMEN HOYOS APRN Ot Z72.0 TOBACCO USE 04/28/2020 [facility], ALI FACP CCDS Ot E78.5 HYPERLIPIDEMIA, UNSPECIFIED 04/28/2020 [facility], ALI FACP CCDS Ot I25.10 ATHSCL HEART DISEASE OF [place] CORONARY 04/28/[address] [facility], ALI FACP CCDS Ot I73.9 PERIPHERAL VASCULAR DISEASE, UNSPECIFIED 04/28/2020 [facility], ALI FACP CCDS Ot I77.89 OTHER SPECIFIED DISORDERS OF ARTERIES AN 04/28/2020 [facility], ALI FACP CCDS Ot R06.02 SHORTNESS OF BREATH 04/28/[address] [facility], ALI FACP CCDS Ot Z72.0 TOBACCO USE 04/28/[address] [facility], ALI FACP CCDS Ot E78.4 OTHER HYPERLIPIDEMIA 04/28/[address] [facility], ALI FACP CCDS Ot F17.200 NICOTINE DEPENDENCE, UNSPECIFIED, UNCOMP 04/28/[address] [facility], ALI FACP CCDS Ot I10 ESSENTIAL (PRIMARY) HYPERTENSION 04/28/2020 [facility], ALI FACP CCDS Ot I25.10 ATHSCL HEART DISEASE OF [place] CORONARY 04/28/[address] [facility], ALI FACP CCDS Ot 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 04/28/2020 [facility], ALI FACP CCDS Ot I70.213 ATHSCL [place] ARTERIES OF EXTRM W INTRMT 04/28/2020 ELIF MARIEE O MITZY Ot N43.3 HYDROCELE, UNSPECIFIED 04/28/2020 CARMEN HOYOS PHARMACY BENEFIT MANAGER Ot G47.33 OBSTRUCTIVE SLEEP APNEA (ADULT) (PEDIATR 04/28/2020 CARMEN HOYOS PHARMACY BENEFIT MANAGER Ot J44.9 CHRONIC OBSTRUCTIVE PULMONARY DISEASE, U 04/28/2020 CARMEN HOYOS PHARMACY BENEFIT MANAGER Ot Z72.0 TOBACCO USE 04/28/2020 CARMEN HOYOS PHARMACY BENEFIT MANAGER Ot G47.33 OBSTRUCTIVE SLEEP APNEA (ADULT) (PEDIATR 04/28/2020 CAMREN HOYOS PHARMACY BENEFIT MANAGER Ot J44.9 CHRONIC OBSTRUCTIVE PULMONARY DISEASE, U 04/28/2020 CARMEN HOYOS PHARMACY BENEFIT MANAGER Ot Z72.0 TOBACCO USE 04/28/2020 JENNA LOVING MD Ot L02.612 CUTANEOUS ABSCESS OF LEFT FOOT 04/28/2020 CARMEN HOYOS APRN Ot Z87.891 PERSONAL HISTORY OF NICOTINE DEPENDENCE 04/28/2020 CARMEN HOYOS APRN Ot J44.9 CHRONIC OBSTRUCTIVE PULMONARY DISEASE, U 04/28/2020 [facility], ALI FACP CCDS Ot E66.9 OBESITY, UNSPECIFIED 04/28/2020 [facility] ERAZO [facility], ALI FACP CCDS Ot E78.1 PURE HYPERGLYCERIDEMIA 04/28/2020 [facility] ERAZO [facility], ALI FACP CCDS Ot E78.5 HYPERLIPIDEMIA, UNSPECIFIED 04/28/2020 [facility], ALI FACP CCDS Ot F12.10 CANNABIS ABUSE, UNCOMPLICATED 04/28/2020 [facility]A ERAZO [facility], ALI FACP CCDS Ot F17.210 NICOTINE DEPENDENCE, CIGARETTES, UNCOMPL 04/28/2020 [facility] ERAZO [facility], ALI FACP CCDS Ot G40.909 EPILEPSY, UNSP, NOT INTRACTABLE, WITHOUT 04/28/2020 SHAKA ERAZO [facility], ALI FACP CCDS Ot G47.33 OBSTRUCTIVE SLEEP APNEA (ADULT) (PEDIATR 04/28/2020 [facility]AKA ERAZO [facility], ALI FACP CCDS Ot I10 ESSENTIAL (PRIMARY) HYPERTENSION 04/28/2020 [facility] ERA[facility], ALI FACP CCDS Ot I25.10 ATHSCL HEART DISEASE OF [place] CORONARY 04/28/2020 [facility] ERAZO [facility], ALI FACP CCDS Ot I65.02 OCCLUSION AND STENOSIS OF LEFT VERTEBRAL 04/28/2020 [facility] ERAZO [facility], ALI FACP CCDS Ot 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 04/28/2020 [facility] ERAZO [facility], ALI FACP CCDS Ot I70.213 ATHSCL [place] ARTERIES OF EXTRM W INTRMT 04/28/2020 [facility]A ERAZO [facility], ALI FACP CCDS Ot J44.9 CHRONIC OBSTRUCTIVE PULMONARY DISEASE, U 04/28/2020 [facility] ERAZO [facility], ALI FACP CCDS Ot Z68.39 BODY MASS INDEX (BMI) 39.0-39.9, ADULT 04/28/2020 [facility]A ERAZO [facility], ALI FACP CCDS Ot Z88.8 ALLERGY STATUS TO OTH DRUG/MEDS/BIOL SUB 04/29/2020 ELIS VICTOR Ot E78.5 HYPERLIPIDEMIA, UNSPECIFIED 04/29/2020 ELIS VICTOR WEIGHT GUESSER Ot G47.33 OBSTRUCTIVE SLEEP APNEA (ADULT) (PEDIATR 04/29/2020 ELIS VICTOR WEIGHT GUESSER Ot I25.10 ATHSCL HEART DISEASE OF [place] CORONARY 04/29/2020 ELIS VICTOR WEIGHT GUESSER Ot I70.213 ATHSCL [place] ARTERIES OF EXTRM W INTRMT 04/29/2020 ELIS VICTORP Ot M79.89 OTHER SPECIFIED SOFT TISSUE DISORDERS 05/05/2020 RENETTA CARDOZA Ot 611.72 LUMP OR MASS IN BREAST 05/05/2020 RENETTA CARDOZA Ot V16.3 FAMILY HX-BREAST MALIG 05/05/2020 LANG HUDSON DO Ot T82.118A BREAKDOWN (MECHANICAL) OF CARDIAC ELECTR 05/05/2020 LANG HUDSON DO Ot Z01.810 ENCOUNTER FOR PREPROCEDURAL CARDIOVASCUL 05/05/2020 [facility] Z01.812 ENCOUNTER FOR PREPROCEDURAL LABORATORY E 05/05/2020 [facility] Ot Z11. 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, ALI FACP CCDS Ot E78.5 HYPERLIPIDEMIA, UNSPECIFIED 05/05/2020 [facility], ALI FACP CCDS Ot I25.10 ATHSCL HEART DISEASE OF [place] CORONARY 05/05/2020 [facility], ALI FACP CCDS Ot I73.9 PERIPHERAL VASCULAR DISEASE, UNSPECIFIED 05/05/2020 [facility], ALI FACP CCDS Ot I77.89 OTHER SPECIFIED DISORDERS OF ARTERIES AN 05/05/2020 [facility], ALI FACP CCDS Ot R06.02 SHORTNESS OF BREATH 05/05/2020 [facility], ALI FACP CCDS Ot Z72.0 TOBACCO USE 05/05/2020 [facility], ALI FACP CCDS Ot E78.4 OTHER HYPERLIPIDEMIA 05/05/2020 [facility], ALI FACP CCDS Ot F17.200 NICOTINE DEPENDENCE, UNSPECIFIED, UNCOMP 05/05/2020 [facility], ALI FACP CCDS Ot I10 ESSENTIAL (PRIMARY) HYPERTENSION 05/05/2020 [facility], ALI FACP CCDS Ot I25.10 ATHSCL HEART DISEASE OF [place] CORONARY 05/05/2020 [facility], ALI FACP CCDS Ot 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 05/05/2020 [facility], ALI FACP CCDS Ot I70.213 ATHSCL [place] ARTERIES OF EXTRM W INTRMT 05/05/2020 ELIF MARIEE PHARMACY BENEFIT MANAGER Ot N43.3 HYDROCELE, UNSPECIFIED 05/05/2020 ESA HOYOSINE E PHARMACY BENEFIT MANAGER Ot G47.33 OBSTRUCTIVE SLEEP APNEA (ADULT) (PEDIATR 05/05/2020 SOHA CARMEN E PHARMACY BENEFIT MANAGER Ot J44.9 CHRONIC OBSTRUCTIVE PULMONARY DISEASE, U 05/05/2020 CARMEN HOYOS E PHARMACY BENEFIT MANAGER Ot Z72.0 TOBACCO USE 05/05/2020 SOHA CARMEN E PHARMACY BENEFIT MANAGER Ot G47.33 OBSTRUCTIVE SLEEP APNEA (ADULT) (PEDIATR 05/05/2020 SOHA CARMEN E PHARMACY BENEFIT MANAGER Ot J44.9 CHRONIC OBSTRUCTIVE PULMONARY DISEASE, U 05/05/2020 ESA HOYOSINE E PHARMACY BENEFIT MANAGER Ot Z72.0 TOBACCO USE 05/05/2020 FABIENNE ERAZO, JENNA Humphrey Ot L02.612 CUTANEOUS ABSCESS OF LEFT FOOT 05/05/2020 CARMEN HOYOS APRN Ot Z87.891 PERSONAL HISTORY OF NICOTINE DEPENDENCE 05/05/2020 CARMEN HOYOS APRN Ot J44.9 CHRONIC OBSTRUCTIVE PULMONARY DISEASE, U 05/05/2020 ELIS VICTORP Ot E78.5 HYPERLIPIDEMIA, UNSPECIFIED 05/05/2020 ELIS VICTORP Ot G47.33 OBSTRUCTIVE SLEEP APNEA (ADULT) (PEDIATR 05/05/2020 ELIS VICTORP Ot I25.10 ATHSCL HEART DISEASE OF [place] CORONARY 05/05/2020 ELIS VICTOR Ot I70.213 ATHSCL [place] ARTERIES OF EXTRM W INTRMT 05/05/2020 ELIS VICTOR Ot M79.89 OTHER SPECIFIED SOFT TISSUE DISORDERS 05/06/2020 RENETTA CARDOZA Ot 611.72 LUMP OR MASS IN BREAST 05/06/2020 RENETTA CARDOZA Ot V16.3 FAMILY HX-BREAST MALIG 05/06[facility]2020 [facility] T82.118A BREAKDOWN (MECHANICAL) OF CARDIAC ELECTR 05/06/2020 HUDSON LANG MYRICK Ot Z01.810 ENCOUNTER FOR PREPROCEDURAL CARDIOVASCUL 05/06/2020 [facility] Z01.812 ENCOUNTER FOR PREPROCEDURAL LABORATORY E 05/06/2020 [facility] Z11. 2 ENCOUNTER FOR SCREENING FOR OTHER BACTER 05/06/2020 CARMEN HOYOS APRN Ot F17.200 NICOTINE DEPENDENCE, UNSPECIFIED, UNCOMP 05/06/2020 CARMEN HOYOS APRN Ot J44.9 CHRONIC OBSTRUCTIVE PULMONARY DISEASE, U 05/06/2020 CARMEN HOYOS APRN Ot R06.00 DYSPNEA, UNSPECIFIED 05/06/2020 RENETTA CARDOZA Ot M25.561 PAIN IN RIGHT KNEE 05/06/2020 SHAKA ERAZO FACC, ALI FACP CCDS Ot E78.5 HYPERLIPIDEMIA, UNSPECIFIED 05/06/2020 SHAKA ERAZO FACC, ALI FACP CCDS Ot I25.10 ATHSCL HEART DISEASE OF [place] CORONARY 05/06/2020 SHAKA ERAZO FACC, ALI FACP CCDS Ot 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 05/06/2020 [facility], ALI FACP CCDS Ot R06.02 SHORTNESS OF BREATH 05/06/2020 CARMEN HOYOS APRN Ot F12.10 CANNABIS ABUSE, UNCOMPLICATED 05/06/2020 CARMEN HOYOS APRN Ot J44.9 CHRONIC OBSTRUCTIVE PULMONARY DISEASE, U 05/06/2020 CARMEN HOYOS APRN Ot Z72.0 TOBACCO USE 05/06/2020 [facility], ALI FACP CCDS Ot E78.5 HYPERLIPIDEMIA, UNSPECIFIED 05/06/2020 [facility], ALI FACP CCDS Ot I25.10 ATHSCL HEART DISEASE OF [place] CORONARY 05/06/2020 [facility], ALI FACP CCDS Ot I73.9 PERIPHERAL VASCULAR DISEASE, UNSPECIFIED 05/06/2020 [facility], ALI FACP CCDS Ot I77.89 OTHER SPECIFIED DISORDERS OF ARTERIES AN 05/06/2020 [facility], ALI FACP CCDS Ot R06.02 SHORTNESS OF BREATH 05/06/2020 [facility], ALI FACP CCDS Ot Z72.0 TOBACCO USE 05/06/2020 [facility], ALI FACP CCDS Ot E78.4 OTHER HYPERLIPIDEMIA 05/06/2020 [facility], ALI FACP CCDS Ot F17.200 NICOTINE DEPENDENCE, UNSPECIFIED, UNCOMP 05/06/2020 [facility], ALI FACP CCDS Ot I10 ESSENTIAL (PRIMARY) HYPERTENSION 05/06/2020 [facility], ALI FACP CCDS Ot I25.10 ATHSCL HEART DISEASE OF [place] CORONARY 05/06/2020 [facility], ALI FACP CCDS Ot 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 05/06/2020 [facility], ALI FACP CCDS Ot I70.213 ATHSCL [place] ARTERIES OF EXTRM W INTRMT 05/06/2020 NWELIF CAZARES APRN Ot N43.3 HYDROCELE, UNSPECIFIED 05/06/2020 CARMEN HOYOS PHARMACY BENEFIT MANAGER Ot G47.33 OBSTRUCTIVE SLEEP APNEA (ADULT) (PEDIATR 05/06/2020 CARMEN HOYOS APRN Ot J44.9 CHRONIC OBSTRUCTIVE PULMONARY DISEASE, U 05/06/2020 CARMEN HOYOS PHARMACY BENEFIT MANAGER Ot Z72.0 TOBACCO USE 05/06/2020 CARMEN HOYOS PHARMACY BENEFIT MANAGER Ot G47.33 OBSTRUCTIVE SLEEP APNEA (ADULT) (PEDIATR 05/06/2020 CARMEN HOYOS E PHARMACY BENEFIT MANAGER Ot J44.9 CHRONIC OBSTRUCTIVE PULMONARY DISEASE, U 05/06/2020 CARMEN HOYOS E PHARMACY BENEFIT MANAGER Ot Z72.0 TOBACCO USE 05/06/2020 FABIENNE ERAZO, JENNA Humphrey Ot L02.612 CUTANEOUS ABSCESS OF LEFT FOOT 05/06/2020 ESA HOYOSINE E PHARMACY BENEFIT MANAGER Ot Z87.891 PERSONAL HISTORY OF NICOTINE DEPENDENCE 05/06/2020 CARMEN HOYOS PHARMACY BENEFIT MANAGER Ot J44.9 CHRONIC OBSTRUCTIVE PULMONARY DISEASE, U 05/06/2020 BAIMA, ELIS L WEIGHT GUESSER Ot E78.5 HYPERLIPIDEMIA, UNSPECIFIED 05/06/2020 BAIMA, ELIS L WEIGHT GUESSER Ot G47.33 OBSTRUCTIVE SLEEP APNEA (ADULT) (PEDIATR 05/06/2020 BAIMA, ELIS L WEIGHT GUESSER Ot I25.10 ATHSCL HEART DISEASE OF [place] CORONARY 05/06/2020 BAIMA, ELIS L WEIGHT GUESSER Ot I70.213 ATHSCL [place] ARTERIES OF EXTRM W INTRMT 05/06/2020 BAIMA, ELIS L WEIGHT GUESSER Ot M79.89 OTHER SPECIFIED SOFT TISSUE DISORDERS 05/07/2020 BAIMA, ELIS L WEIGHT GUESSER Ot E78.5 HYPERLIPIDEMIA, UNSPECIFIED 05/07/2020 BAIMA, ELIS L WEIGHT GUESSER Ot G47.33 OBSTRUCTIVE SLEEP APNEA (ADULT) (PEDIATR 05/07/2020 BAIMA, ELIS L WEIGHT GUESSER Ot I25.10 ATHSCL HEART DISEASE OF [place] CORONARY 05/07/2020 BAIMA, ELIS L WEIGHT GUESSER Ot I51.7 CARDIOMEGALY 05/07/2020 BAIMA, ELIS L WEIGHT GUESSER Ot 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 05/07/2020 BAIMA, ELIS L WEIGHT GUESSER Ot I70.213 ATHSCL [place] ARTERIES OF EXTRM W INTRMT 05/07/2020 BAIMA, ELIS L WEIGHT GUESSER Ot R22.40 LOCALIZED SWELLING, MASS AND LUMP, UNSPE 05/11/2020 RENETTA CARDOZAP Ot 611.72 LUMP OR MASS IN BREAST 05/11/2020 RENETTA CARDOZA WEIGHT GUESSER Ot V16.3 FAMILY HX-BREAST MALIG 05/11/2020 [facility] Ot T82.118A BREAKDOWN (MECHANICAL) OF CARDIAC ELECTR 05/11/2020 [facility] Ot Z01.810 ENCOUNTER FOR PREPROCEDURAL CARDIOVASCUL 05/11/2020 [facility] Ot Z01.812 ENCOUNTER FOR PREPROCEDURAL LABORATORY E 05/11/2020 [facility] Ot Z11. 2 ENCOUNTER FOR SCREENING FOR OTHER BACTER 05/11/2020 CARMEN HOYOS APRN Ot F17.200 NICOTINE DEPENDENCE, UNSPECIFIED, UNCOMP 05/11/2020 CARMEN HOYOS APRN Ot J44.9 CHRONIC OBSTRUCTIVE PULMONARY DISEASE, U 05/11/2020 CARMEN HOYOS APRN Ot R06.00 DYSPNEA, UNSPECIFIED 05/11/2020 RENETTA CARDOZA Ot M25.561 PAIN IN RIGHT KNEE 05/11/2020 SHAKA ERAZO FACC, KAMRYN FACP CCDS Ot E78.5 HYPERLIPIDEMIA, UNSPECIFIED 05/11/2020 SHAKA ERAZO FACC, ALI FACP CCDS Ot I25.10 ATHSCL HEART DISEASE OF [place] CORONARY 05/11/2020 SHAKA ERAZO FACC, ALI FACP CCDS Ot 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 05/11/2020 SHAKA ERAZO FACC, ALI FACP CCDS Ot R06.02 SHORTNESS OF BREATH 05/11/2020 CARMEN HOYOS APRN Ot F12.10 CANNABIS ABUSE, UNCOMPLICATED 05/11/2020 CARMEN HOYOS APRN Ot J44.9 CHRONIC OBSTRUCTIVE PULMONARY DISEASE, U 05/11/2020 CARMEN HOYOS APRN Ot Z72.0 TOBACCO USE 05/11/2020 SHAKA ERAZO FACC, ALI FACP CCDS Ot E78.5 HYPERLIPIDEMIA, UNSPECIFIED 05/11/2020 SHAKA ERAZO FACC, ALI FACP CCDS Ot I25.10 ATHSCL HEART DISEASE OF [place] CORONARY 05/11/2020 SHAKA ERAZO FACC, ALI FACP CCDS Ot I73.9 PERIPHERAL VASCULAR DISEASE, UNSPECIFIED 05/11/2020 SHAKA ERAZO FACC, ALI FACP CCDS Ot I77.89 OTHER SPECIFIED DISORDERS OF ARTERIES AN 05/11/2020 SHAKA ERAZO FACC, ALI FACP CCDS Ot R06.02 SHORTNESS OF BREATH 05/11/2020 SHAKA ERAZO [facility], ALI FACP CCDS Ot Z72.0 TOBACCO USE 05/11/2020 SHAKA ERAZO [facility], ALI FACP CCDS Ot E78.4 OTHER HYPERLIPIDEMIA 05/11/2020 SHAKA ERAZO [facility], ALI FACP CCDS Ot F17.200 NICOTINE DEPENDENCE, UNSPECIFIED, UNCOMP 05/11/2020 SHAKA ERAZO [facility], ALI FACP CCDS Ot I10 ESSENTIAL (PRIMARY) HYPERTENSION 05/11/2020 SHAKA ERAZO [facility], ALI FACP CCDS Ot I25.10 ATHSCL HEART DISEASE OF [place] CORONARY 05/11/2020 SHAKA ERAZO [facility], ALI FACP CCDS Ot 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 05/11/2020 SHAKA ERAZO [facility], [facility] FACP CCDS Ot I70.213 ATHSCL [place] ARTERIES OF EXTRM W INTRMT 05/11/2020 ELIF MARIEE PHARMACY BENEFIT MANAGER Ot N43.3 HYDROCELE, UNSPECIFIED 05/11/2020 CARMEN HOYOS PHARMACY BENEFIT MANAGER Ot G47.33 OBSTRUCTIVE SLEEP APNEA (ADULT) (PEDIATR 05/11/2020 CARMEN HOYOS PHARMACY BENEFIT MANAGER Ot J44.9 CHRONIC OBSTRUCTIVE PULMONARY DISEASE, U 05/11/2020 CARMEN HOYOS PHARMACY BENEFIT MANAGER Ot Z72.0 TOBACCO USE 05/11/2020 CARMEN HOYOS PHARMACY BENEFIT MANAGER Ot G47.33 OBSTRUCTIVE SLEEP APNEA (ADULT) (PEDIATR 05/11/2020 CARMEN HOYSO PHARMACY BENEFIT MANAGER Ot J44.9 CHRONIC OBSTRUCTIVE PULMONARY DISEASE, U 05/11/2020 CARMEN HOYOS PHARMACY BENEFIT MANAGER Ot Z72.0 TOBACCO USE 05/11/2020 FABIENNE ERAZO, JENNA Humphrey Ot L02.612 CUTANEOUS ABSCESS OF LEFT FOOT 05/11/2020 CARMEN HOYOS PHARMACY BENEFIT MANAGER Ot Z87.891 PERSONAL HISTORY OF NICOTINE DEPENDENCE 05/11/2020 CARMEN HOYOS PHARMACY BENEFIT MANAGER Ot J44.9 CHRONIC OBSTRUCTIVE PULMONARY DISEASE, U 05/11/2020 BAIELIS RASHID WEIGHT GUESSER Ot E78.5 HYPERLIPIDEMIA, UNSPECIFIED 05/11/2020 BAIMA ELIS L WEIGHT GUESSER Ot G47.33 OBSTRUCTIVE SLEEP APNEA (ADULT) (PEDIATR 05/11/2020 ELIS VICTOR L WEIGHT GUESSER Ot I25.10 ATHSCL HEART DISEASE OF [place] CORONARY 05/11/2020 BAIMA, ELIS L WEIGHT GUESSER Ot I70.213 ATHSCL [place] ARTERIES OF EXTRM W INTRMT 05/11/2020 BAIMA, ELIS L WEIGHT GUESSER Ot M79.89 OTHER SPECIFIED SOFT TISSUE DISORDERS 05/11/2020 BAIGAY, ELIS L WEIGHT GUESSER Ot E78.5 HYPERLIPIDEMIA, UNSPECIFIED 05/11/2020 BAIMA, ELIS L WEIGHT GUESSER Ot G47.33 OBSTRUCTIVE SLEEP APNEA (ADULT) (PEDIATR 05/11/2020 BAIMA, ELIS L WEIGHT GUESSER Ot I25.10 ATHSCL HEART DISEASE OF [place] CORONARY 05/11/2020 BAIMA, ELIS L WEIGHT GUESSER Ot I51.7 CARDIOMEGALY 05/11/2020 BAIMA, ELIS L WEIGHT GUESSER Ot 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 2 ENCOUNTER FOR SCREENING FOR OTHER BACTER 05/11/2020 CARMEN HOYOS APRN Ot F17.200 NICOTINE DEPENDENCE, UNSPECIFIED, UNCOMP 05/11/2020 CARMEN HOYOS APRN Ot J44.9 CHRONIC OBSTRUCTIVE PULMONARY DISEASE, U 05/11/2020 CARMEN HOYOS APRN Ot R06.00 DYSPNEA, UNSPECIFIED 05/11/2020 RENETTA CARDOZA WEIGHT GUESSER Ot M25.561 PAIN IN RIGHT KNEE 05/11/2020 SHAKA ERAZO FACC, KAMRYN REESP CCDS Ot E78.5 HYPERLIPIDEMIA, UNSPECIFIED 05/11/2020 SHAKA MD [facility], ALI FACP CCDS Ot I25.10 ATHSCL HEART DISEASE OF [place] CORONARY 05/11/2020 SHAKA MD [facility], ALI FACP CCDS Ot 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 05/11/2020 SHAKA MD [facility], ALI FACP CCDS Ot R06.02 SHORTNESS OF BREATH 05/11/2020 CARMEN HOYOS PHARMACY BENEFIT MANAGER Ot F12.10 CANNABIS ABUSE, UNCOMPLICATED 05/11/2020 CARMEN HOYOS PHARMACY BENEFIT MANAGER Ot J44.9 CHRONIC OBSTRUCTIVE PULMONARY DISEASE, U 05/11/2020 CARMEN HOYOS PHARMACY BENEFIT MANAGER Ot Z72.0 TOBACCO USE 05/11/2020 [facility], ALI FACP CCDS Ot E78.5 HYPERLIPIDEMIA, UNSPECIFIED 05/11/2020 SHAKA MD [facility], ALI FACP CCDS Ot I25.10 ATHSCL HEART DISEASE OF [place] CORONARY 05/11/2020 SHAKA ERAZO [facility], ALI FACP CCDS Ot I73.9 PERIPHERAL VASCULAR DISEASE, UNSPECIFIED 05/11/2020 SHAKA MD [facility], ALI FACP CCDS Ot I77.89 OTHER SPECIFIED DISORDERS OF ARTERIES AN 05/11/2020 SHAKA ERAZO [facility], ALI FACP CCDS Ot R06.02 SHORTNESS OF BREATH 05/11/2020 SHAKA ERAZO [facility], ALI FACP CCDS Ot Z72.0 TOBACCO USE 05/11/2020 SHAKA MD [facility], ALI FACP CCDS Ot E78.4 OTHER HYPERLIPIDEMIA 05/11/2020 [facility], ALI FACP CCDS Ot F17.200 NICOTINE DEPENDENCE, UNSPECIFIED, UNCOMP 05/11/2020 SHAKA ERAZO [facility], ALI FACP CCDS Ot I10 ESSENTIAL (PRIMARY) HYPERTENSION 05/11/2020 SHAKA ERAZO [facility], ALI FACP CCDS Ot I25.10 ATHSCL HEART DISEASE OF [place] CORONARY 05/11/2020 SHAKA ERAZO [facility], ALI FACP CCDS Ot 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 05/11/2020 SHAKA ERAZO [facility], ALI FACP CCDS Ot I70.213 ATHSCL [place] ARTERIES OF EXTRM W INTRMT 05/11/2020 NWELIF CAZARES PHARMACY BENEFIT MANAGER Ot N43.3 HYDROCELE, UNSPECIFIED 05/11/2020 SOHA, CARMEN E PHARMACY BENEFIT MANAGER Ot G47.33 OBSTRUCTIVE SLEEP APNEA (ADULT) (PEDIATR 05/11/2020 CARMEN HOYOS PHARMACY BENEFIT MANAGER Ot J44.9 CHRONIC OBSTRUCTIVE PULMONARY DISEASE, U 05/11/2020 CARMEN HOYOS PHARMACY BENEFIT MANAGER Ot Z72.0 TOBACCO USE 05/11/2020 CARMEN HOYOS E PHARMACY BENEFIT MANAGER Ot G47.33 OBSTRUCTIVE SLEEP APNEA (ADULT) (PEDIATR 05/11/2020 CARMEN HOYOS PHARMACY BENEFIT MANAGER Ot J44.9 CHRONIC OBSTRUCTIVE PULMONARY DISEASE, U 05/11/2020 CARMEN HOYOS PHARMACY BENEFIT MANAGER Ot Z72.0 TOBACCO USE 05/11/2020 FABIENNE ERAZO, JENNA Humphrey Ot L02.612 CUTANEOUS ABSCESS OF LEFT FOOT 05/11/2020 CARMEN HOYOS PHARMACY BENEFIT MANAGER Ot Z87.891 PERSONAL HISTORY OF NICOTINE DEPENDENCE 05/11/2020 CARMEN HOYOS PHARMACY BENEFIT MANAGER Ot J44.9 CHRONIC OBSTRUCTIVE PULMONARY DISEASE, U 05/11/2020 BAIMA, ELIS L WEIGHT GUESSER Ot E78.5 HYPERLIPIDEMIA, UNSPECIFIED 05/11/2020 BAIMA, ELIS L WEIGHT GUESSER Ot G47.33 OBSTRUCTIVE SLEEP APNEA (ADULT) (PEDIATR 05/11/2020 BAIMA, ELIS L WEIGHT GUESSER Ot I25.10 ATHSCL HEART DISEASE OF [place] CORONARY 05/11/2020 BAIMA, ELIS L WEIGHT GUESSER Ot I70.213 ATHSCL [place] ARTERIES OF EXTRM W INTRMT 05/11/2020 BAIMA, ELIS L WEIGHT GUESSER Ot M79.89 OTHER SPECIFIED SOFT TISSUE DISORDERS 05/11/2020 BAIMA, ELIS L WEIGHT GUESSER Ot E78.5 HYPERLIPIDEMIA, UNSPECIFIED 05/11/2020 BAIMA, ELIS L WEIGHT GUESSER Ot G47.33 OBSTRUCTIVE SLEEP APNEA (ADULT) (PEDIATR 05/11/2020 BAIMA, ELIS L WEIGHT GUESSER Ot I25.10 ATHSCL HEART DISEASE OF [place] CORONARY 05/11/2020 BAIMA, ELIS L WEIGHT GUESSER Ot I51.7 CARDIOMEGALY 05/11/2020 BAIMA, ELIS L WEIGHT GUESSER Ot 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 05/11/2020 BAIMA, ELIS L WEIGHT GUESSER Ot I70.213 ATHSCL [place] ARTERIES OF EXTRM W INTRMT 05/11/2020 BAIMA, ELIS L WEIGHT GUESSER Ot R22.40 LOCALIZED SWELLING, MASS AND LUMP, UNSPE 05/11/2020 RENETTA CARDOZA Ot 611.72 LUMP OR MASS IN BREAST 05/11/2020 RENETTA CARDOZA Ot V16.3 FAMILY HX-BREAST MALIG 05/11/2020 [facility] Ot T82.118A BREAKDOWN (MECHANICAL) OF CARDIAC ELECTR 05/11/2020 [facility] Ot Z01.810 ENCOUNTER FOR PREPROCEDURAL CARDIOVASCUL 05/11/2020 [facility] Ot Z01.812 ENCOUNTER FOR PREPROCEDURAL LABORATORY E 05/11/2020 [facility] Ot Z11. 2 ENCOUNTER FOR SCREENING FOR OTHER BACTER 05/11/2020 CARMEN HOYOS APRN Ot F17.200 NICOTINE DEPENDENCE, UNSPECIFIED, UNCOMP 05/11/2020 CARMEN HOYOS APRN Ot J44.9 CHRONIC OBSTRUCTIVE PULMONARY DISEASE, U 05/11/2020 CARMEN HOYOS APRN Ot R06.00 DYSPNEA, UNSPECIFIED 05/11/2020 RENETTA CARDOZA Ot M25.561 PAIN IN RIGHT KNEE 05/11/2020 SHAKA REES, ALI FACP CCDS Ot E78.5 HYPERLIPIDEMIA, UNSPECIFIED 05/11/2020 SHAKA REES, ALI FACP CCDS Ot I25.10 ATHSCL HEART DISEASE OF [place] CORONARY 05/11/2020 SHAKA REES, ALI FACP CCDS Ot 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 05/11/2020 SHAKA ERAZO FACC, ALI FACP CCDS Ot R06.02 SHORTNESS OF BREATH 05/11/2020 CARMEN HOYOS APRN Ot F12.10 CANNABIS ABUSE, UNCOMPLICATED 05/11/2020 CARMEN HOYSO PHARMACY BENEFIT MANAGER Ot J44.9 CHRONIC OBSTRUCTIVE PULMONARY DISEASE, U 05/11/2020 CARMEN HOYOS APRN Ot Z72.0 TOBACCO USE 05/11/2020 SHAKA ERAZO FACC, ALI FACP CCDS Ot E78.5 HYPERLIPIDEMIA, UNSPECIFIED 05/11/2020 SHAKA ERAZO FACC, ALI FACP CCDS Ot I25.10 ATHSCL HEART DISEASE OF [place] CORONARY 05/11/2020 SHAAK ERAZO FACC, ALI FACP CCDS Ot I73.9 PERIPHERAL VASCULAR DISEASE, UNSPECIFIED 05/11/2020 SHAKA ERAZO FACC, [facility] FACP CCDS Ot I77.89 OTHER SPECIFIED DISORDERS OF ARTERIES AN 05/11/2020 SHAKA ERAZO [facility], ALI FACP CCDS Ot R06.02 SHORTNESS OF BREATH 05/11/2020 SHAKA MD [facility], ALI FACP CCDS Ot Z72.0 TOBACCO USE 05/11/2020 [facility], ALI FACP CCDS Ot E78.4 OTHER HYPERLIPIDEMIA 05/11/2020 [facility], ALI FACP CCDS Ot F17.200 NICOTINE DEPENDENCE, UNSPECIFIED, UNCOMP 05/11/2020 [facility], ALI FACP CCDS Ot I10 ESSENTIAL (PRIMARY) HYPERTENSION 05/11/2020 [facility], ALI FACP CCDS Ot I25.10 ATHSCL HEART DISEASE OF [place] CORONARY 05/11/2020 [facility], ALI FACP CCDS Ot 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 05/11/2020 [facility], ALI FACP CCDS Ot I70.213 ATHSCL [place] ARTERIES OF EXTRM W INTRMT 05/11/2020 NWAGWVahid, ELIF O PHARMACY BENEFIT MANAGER Ot N43.3 HYDROCELE, UNSPECIFIED 05/11/2020 CARMEN HOYOS PHARMACY BENEFIT MANAGER Ot G47.33 OBSTRUCTIVE SLEEP APNEA (ADULT) (PEDIATR 05/11/2020 CARMEN HOYOS PHARMACY BENEFIT MANAGER Ot J44.9 CHRONIC OBSTRUCTIVE PULMONARY DISEASE, U 05/11/2020 CARMEN HOYOS PHARMACY BENEFIT MANAGER Ot Z72.0 TOBACCO USE 05/11/2020 CARMEN HOYOS PHARMACY BENEFIT MANAGER Ot G47.33 OBSTRUCTIVE SLEEP APNEA (ADULT) (PEDIATR 05/11/2020 CARMEN HOYOS PHARMACY BENEFIT MANAGER Ot J44.9 CHRONIC OBSTRUCTIVE PULMONARY DISEASE, U 05/11/2020 CARMEN HOYOS PHARMACY BENEFIT MANAGER Ot Z72.0 TOBACCO USE 05/11/2020 FABIENNE ERAZO, JENNA Humphrey Ot L02.612 CUTANEOUS ABSCESS OF LEFT FOOT 05/11/2020 CARMEN HOYOS PHARMACY BENEFIT MANAGER Ot Z87.891 PERSONAL HISTORY OF NICOTINE DEPENDENCE 05/11/2020 CARMEN HOYOS PHARMACY BENEFIT MANAGER Ot J44.9 CHRONIC OBSTRUCTIVE PULMONARY DISEASE, U 05/11/2020 ELIS VICTOR WEIGHT GUESSER Ot E78.5 HYPERLIPIDEMIA, UNSPECIFIED 05/11/2020 BAIMA, ELIS L WEIGHT GUESSER Ot G47.33 OBSTRUCTIVE SLEEP APNEA (ADULT) (PEDIATR 05/11/2020 BAIMA, ELIS L WEIGHT GUESSER Ot I25.10 ATHSCL HEART DISEASE OF [place] CORONARY 05/11/2020 BAIMA, ELIS L WEIGHT GUESSER Ot I70.213 ATHSCL [place] ARTERIES OF EXTRM W INTRMT 05/11/2020 BAIMA, ELIS L WEIGHT GUESSER Ot M79.89 OTHER SPECIFIED SOFT TISSUE DISORDERS 05/11/2020 BAIMA, ELIS L WEIGHT GUESSER Ot E78.5 HYPERLIPIDEMIA, UNSPECIFIED 05/11/2020 BAIMA, ELIS L WEIGHT GUESSER Ot G47.33 OBSTRUCTIVE SLEEP APNEA (ADULT) (PEDIATR 05/11/2020 BAIMA, ELIS L WEIGHT GUESSER Ot I25.10 ATHSCL HEART DISEASE OF [place] CORONARY 05/11/2020 BAIMA, ELIS L WEIGHT GUESSER Ot I51.7 CARDIOMEGALY 05/11/2020 BAIMA, ELIS L WEIGHT GUESSER Ot 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 05/11/2020 BAIMA, ELIS L WEIGHT GUESSER Ot I70.213 ATHSCL [place] ARTERIES OF EXTRM W INTRMT 05/11/2020 BAIMA, ELIS L WEIGHT GUESSER Ot R22.40 LOCALIZED SWELLING, MASS AND LUMP, UNSPE Procedures Code Description [place] [address] EEG 09/09/2012 77342 SPIR OMETRY 01/03/2013 60461 BRON CHODILATION PRE/POST 01/03/2013 41528 RESP IRATORY FLOW VOLUME LOOP 01/03/2013 61050 XRAY CHEST 2 VIEW 01/24/2013 60372 OXIMETRY 03/21/2013 21383 ROUT INE VENIPUNCTURE 03/28/2013 90065 SLEE P STUDY 03/28/2013 88882 DILANTIN 03/28/2013 56876 XRAY CHEST 2 VIEW 06/07/2013 CARDIOLOG KAMRYN MATT 07/31/2013 32639 A1C (IN-HOUSE) 07/31/2013 36256 ECHO 2D 09/18/2013 36114 HEAR T CATH 09/18/2013 28077 ROUT INE VENIPUNCTURE 10/21/2013 66215 HEP C ANTIBODY ([facility]) 10/21/2013 15447 LIPI D PANEL 10/21/2013 65987 CBC 10/21/2013 [id number] GF R CALC (RESULT ONLY) 10/21/2013 75684 CMP 10/21/2013 64113 OXIMETRY 12/04/2013 67558 NUCL EAR STRESS TESTING 12/04/2013 03113 OXIMETRY 03/05/2014 36290 SKIN TAG REM 1-15 03/25/2014 67628 ROUT INE VENIPUNCTURE 04/14/2014 [id number] GF R CALC (RESULT ONLY) 04/14/2014 98316 CMP 04/14/2014 65914 LIPI D PANEL 04/14/2014 32270 A1C (RML) 04/21/2014 44446 CBC 04/21/2014 [id number] GF R CALC (RESULT ONLY) 04/21/2014 98250 BMP 04/21/2014 25767 JODIE L PROFILE 04/21/2014 67249 SKIN TAG REM 1-15 05/06/2014 75612 OXIMETRY 05/06/2014 20296 OXIMETRY 06/04/2014 79802 EVEN T MONITOR 06/09/2014 07069 US C AROTID DOPPLER 06/09/2014 90254 OXIMETRY 06/09/2014 01195 TILT TABLE EVALUATION 06/17/2014 30052 LEFT HEART CATH 07/16/2014 03158 OXIMETRY 07/16/2014 97401 ROUT INE VENIPUNCTURE 07/30/2014 [id number] GF R CALC (RESULT ONLY) 07/30/2014 22624 CMP 07/30/2014 29236 ROUT INE VENIPUNCTURE 08/13/2014 56975 MRI BRAIN W/O & W/DYE 08/13/2014 88160 EEG 08/13/2014 97295 BMP 08/13/2014 37174 MAGNESIUM 08/13/2014 [id number] GF R CALC (RESULT ONLY) 08/13/2014 34149 SKIN TAG REM 1-15 08/26/2014 90615 OXIMETRY 08/26/2014 92231 OXIMETRY 10/08/2014 NEUROLOGY HERO MONTANEZ 10/08/2014 35722 XRAY HAND LEFT 2 VIEWS 10/11/2014 25001 OXIMETRY 11/19/2014 33870 INFL UENZA A & B (IN-HOUSE) 11/19/2014 75259 OXIMETRY 02/09/2015 GENERAL S LANG HUDSON 02/09/2015 Results Test Result Range CBC With Differential/Platelet - 7 08:21 WBC 5.2 x10E3/uL 3.4-10.8 RBC 5.77 x10E6/uL 4.14-5.80 Hemoglobin 17.6 g/dL 12.6-17.7 Hematocrit 52.6 % 37.5-51.0 MCV 91 fL 79-97 MCH 30.5 pg 26.6-33.0 MCHC 33.5 g/dL 31.5-35.7 RDW 14.3 % 12.3-15.4 Platelets 198 x10E3/uL 150-379 Neutrophils 69 % Lymphs 21 % Monocytes 6 % Eos 4 % Basos 0 % Neutrophils (Absolute) 3.6 x10E3/uL 1.4- 7.0 Lymphs (Absolute) 1.1 x10E3/uL 0.7-3.1 Monocytes(Absolute) 0.3 x10E3/uL 0.1-0.9 Eos (Absolute) 0.2 x10E3/uL 0.0-0.4 Baso (Absolute) 0.0 x10E3/uL 0.0-0.2 Immature Granulocytes 0 % Immature Grans (Abs) 0.0 x10E3/uL 0.0-0. 1 Comp. Metabolic Panel (14) - 11/23/16 08 :21 Glucose, Serum 137 mg/dL 65-99 BUN 14 mg/dL 6-24 Creatinine, Serum 0.90 mg/dL 0.76-1.27 eGFR If NonAfricn Am 96 mL/min/1.73 >59 eGFR If Africn Am 112 mL/min/1.73 >5 9 BUN/Creatinine Ratio 16 9-20 Sodium, Serum 137 [...] TSH 3.050 uIU/mL 0.450-4.500 Methicillin resistant Staphylococcus aur eus (MRSA) screening culture - 06/15/17 09:30 Methicillin resistant Staphylococcus aureus (MRSA) scr eening culture NEG NRG Serum or plasma phenytoin measurement (m ass/volume) - 06/21/17 06:45 Serum or plasma phenytoin measurement (mass/volume) 3.8 ug/mL 10.0-20.0 Methicillin resistant Staphylococcus aur eus (MRSA) screening culture - 08/07/17 12:00 Methicillin resistant Staphylococcus aureus (MRSA) scr eening culture NEG NRG Influenza virus A and B antigen detectio n - 08/20/17 08:55 FLU RESULT NEGATIVE FOR INFLUENZA A AND B ANTIGENS BY IA NRG Complete blood count (CBC) with automate d white blood cell (WBC) differential - 08/26/17 17:00 Blood leukocytes automated count (number/volume) 10.2 10*3/uL 4.3-11.0 Blood erythrocytes automated count (number/volume) 6.00 10*6/uL 4.35-5.85 Venous blood hemoglobin measurement (mass/volume) 18.4 g/dL 13.3-17.7 Blood hematocrit (volume fraction) 54 % 40-54 Automated erythrocyte mean corpuscular volume 90 [ foz_us] 80-99 Automated erythrocyte mean corpuscular h emoglobin (mass per erythrocyte) 31 pg 25-34 Automated erythrocyte mean corpuscular h emoglobin concentration measurement (mass/volume) 34 g/dL 32-36 Automated erythrocyte distribution width ratio 14. 0 % 10.0- 14.5 Automated blood platelet count [...] 10*3 1.0-4.0 Blood monocytes automated count (number/volume) 0. 5 10*3 0.0-1.0 Automated eosinophil count 0.1 10*3/uL 0 .0-0.3 Automated blood basophil count (count/volume) 0.0 10*3/uL 0.0-0.1 Complete blood count (CBC) with automate d white blood cell (WBC) differential - 08/27/17 04:50 Blood leukocytes automated count (number/volume) 9.5 10*3/uL 4.3-11.0 Blood erythrocytes automated count (number/volume) 5.70 10*6/uL 4.35-5.85 Venous blood hemoglobin measurement (mass/volume) 17.5 g/dL 13.3-17.7 Blood hematocrit (volume fraction) 51 % 40-54 Automated erythrocyte mean corpuscular volume 90 [ foz_us] 80-99 Automated erythrocyte mean corpuscular h emoglobin (mass per erythrocyte) 31 pg 25-34 Automated erythrocyte mean corpuscular h emoglobin concentration measurement (mass/volume) 34 g/dL 32-36 Automated erythrocyte distribution width ratio 13. 8 % 10.0- 14.5 Automated blood platelet count [...] 10*3 1.0-4.0 Blood monocytes automated count (number/volume) 0. 2 10*3 0.0-1.0 Automated eosinophil count 0.0 10*3/uL 0 .0-0.3 Automated blood basophil count (count/volume) 0.0 10*3/uL 0.0-0.1 Blood manual differential performed dete ction - 08/27/17 04:50 Blood monocytes/100 leukocytes 2 % NRG Manual blood segmented neutrophils/100 leukocytes 92 % NRG Blood band neutrophils/100 leukocytes 2 % NRG Manual blood lymphocytes/100 leukocytes 4 % NRG Manual eosinophils/100 leukocytes in nose 0 % NRG Manual blood basophils/100 leukocytes 0 % NRG Blood toxic granules detection by light microscopy 1+ NRG Complete blood count (CBC) with automate d white blood cell (WBC) differential - 12/21/17 07:42 Blood leukocytes automated count (number/volume) 6.7 10*3/uL 4.3-11.0 Blood erythrocytes automated count (number/volume) 5.30 10*6/uL 4.35-5.85 Venous blood hemoglobin measurement (mass/volume) 16.6 g/dL 13.3-17.7 Blood hematocrit (volume fraction) 48 % 40-54 Automated erythrocyte mean corpuscular volume 91 [ foz_us] 80-99 Automated erythrocyte mean corpuscular h emoglobin (mass per erythrocyte) 31 pg 25-34 Automated erythrocyte mean corpuscular h emoglobin concentration measurement (mass/volume) 34 g/dL 32-36 Automated erythrocyte distribution width ratio 14. 0 % 10.0- 14.5 Automated blood platelet count [...] 10*3 1.0-4.0 Blood monocytes automated count (number/volume) 0. 5 10*3 0.0-1.0 Automated eosinophil count 0.2 10*3/uL 0 .0-0.3 Automated blood basophil count (count/volume) 0.1 10*3/uL 0.0-0.1 Comprehensive metabolic panel - 12/21/17 07:42 Serum or plasma sodium measurement (moles/volume) 135 mmol/L 135-145 Serum or plasma potassium measurement (moles/volume) 3.7 mmol/L 3.6-5.0 Serum or plasma chloride measurement (moles/volume) 102 mmol/L 98-107 Carbon dioxide 21 mmol/L 21-32 Serum or plasma anion gap determination (moles/volume) 12 mmol/L 5-14 Serum or plasma urea nitrogen measurement (mass/volume ) 18 mg/dL 7-18 Serum or plasma creatinine measurement (mass/volume) 0.94 mg/dL 0.60-1.30 Serum or plasma urea nitrogen/creatinine mass ratio 19 NRG Serum or plasma creatinine measurement w ith calculation of estimated glomerular filtration rate > NRG Serum or plasma glucose measurement (mass/volume) 180 mg/dL 70-105 Serum or plasma calcium measurement (mass/volume) 8.5 mg/dL 8.5-10.1 Serum or plasma total bilirubin measurement (mass/volu me) 0.4 mg/dL 0.1-1.0 Serum or plasma alkaline phosphatase venus surement (enzymatic activity/volume) 120 U/L 40-136 Serum or plasma aspartate aminotransfera se measurement (enzymatic activity/volume) 22 U/L 5-34 Serum [...] <5.0 NON HDL CHOLESTEROL 262 mg/dL (calc) <13 0 GC/CHLAMYDIA (SWAB OR URINE)-RAPID - 11:05 CHLAMYDIA TRACHOMATIS RNA, TMA NOT DETECTED NOT DETECTED NEISSERIA GONORRHOEAE RNA, TMA NOT DETECTED NOT DETECTED COMMENT NRG Automated blood complete blood count (he mogram) panel - 03/19/19 07:42 Blood leukocytes automated count (number/volume) 5.2 10*3/uL 4.3-11.0 Blood erythrocytes automated count (number/volume) 6.05 10*6/uL 4.35-5.85 Venous blood hemoglobin measurement (mass/volume) 17.7 g/dL 13.3-17.7 Blood hematocrit (volume fraction) 53 % 40-54 Automated erythrocyte mean corpuscular volume 88 [ foz_us] 80-99 Automated erythrocyte mean corpuscular h emoglobin (mass per erythrocyte) 29 pg 25-34 Automated erythrocyte mean corpuscular h emoglobin concentration measurement (mass/volume) 33 g/dL 32-36 Automated erythrocyte distribution width ratio 14. 9 % 10.0- 14.5 Automated blood platelet count (count/volume) 208 10*3/uL 130-400 Automated blood platelet mean volume measurement 9.1 [foz_us] 7.4-10.4 PT panel in platelet poor plasma by coag ulation assay - 03/19/19 07:42 Prothrombin time (PT) in platelet poor plasma by coagu lation assay 12.9 s 12.2-14.7 INR in platelet poor plasma or blood by coagulation as say 0.9 0.8-1.4 Activated partial thromboplastin time (a PTT) in platelet poor plasma bycoagulation assay - 03/19/19 07:42 Activated partial thromboplastin time (a PTT) in platelet poor plasma bycoagulation assay 28 s 24-35 Methicillin resistant Staphylococcus aur eus (MRSA) screening culture - 03/19/19 07:42 Methicillin resistant Staphylococcus aureus (MRSA) scr eening culture NEG NRG Comprehensive metabolic panel - 03/19/19 07:45 Serum or plasma sodium measurement (moles/volume) 139 mmol/L 135-145 Serum or plasma potassium measurement (moles/volume) 4.1 mmol/L 3.6-5.0 Serum or plasma chloride measurement (moles/volume) 98 mmol/L 98-107 Carbon dioxide 27 mmol/L 21-32 Serum or plasma anion gap determination (moles/volume) 14 mmol/L 5-14 Serum or plasma urea nitrogen measurement (mass/volume ) 8 mg/dL 7-18 Serum or plasma creatinine measurement (mass/volume) 0.96 mg/dL 0.60-1.30 Serum or plasma urea nitrogen/creatinine mass ratio 8 NRG Serum or plasma creatinine measurement w ith calculation of estimated glomerular filtration rate > NRG Serum or plasma glucose measurement (mass/volume) 116 mg/dL 70-105 Serum or plasma calcium measurement (mass/volume) 10.1 mg/dL 8.5-10.1 Serum or plasma total bilirubin measurement (mass/volu me) 0.4 mg/dL 0.1-1.0 Serum or plasma alkaline phosphatase venus surement (enzymatic activity/volume) 145 U/L 40-136 Serum or plasma aspartate aminotransfera se measurement (enzymatic activity/volume) 14 U/L 5-34 Serum or plasma alanine aminotransferase measurement (enzymatic activity/volume) 16 U/L 0-55 Serum or plasma protein measurement (mass/volume) 7.6 g/dL 6.4-8.2 Serum or plasma albumin measurement (mass/volume) 4.2 g/dL 3.2-4.5 CALCIUM CORRECTED 9.9 mg/dL 8.5-10.1 Lipid 1996 panel - 03/19/19 07:45 Serum or plasma triglyceride measurement (mass/volume) 218 mg/dL <150 Serum or plasma cholesterol measurement (mass/volume) 188 mg/dL < 200 Serum or plasma cholesterol in HDL measurement (mass/v olume) 34 mg/dL 40-60 Cholesterol in LDL [mass/volume] in serum or plasma by direct assay 115 mg/dL 1-129 Serum or plasma cholesterol in VLDL measurement (mass/ volume) 44 mg/dL 5-40 Automated blood complete blood count ( mogram) panel - 03/20/19 05:00 Blood leukocytes automated count (number/volume) 5.5 10*3/uL 4.3-11.0 Blood erythrocytes automated count (number/volume) 5.72 10*6/uL 4.35-5.85 Venous blood hemoglobin measurement (mass/volume) 16.8 g/dL 13.3-17.7 Blood hematocrit (volume fraction) 50 % 40-54 Automated erythrocyte mean corpuscular volume 87 [ foz_us] 80-99 Automated erythrocyte mean corpuscular h emoglobin (mass per erythrocyte) 29 pg 25-34 Automated erythrocyte mean corpuscular h emoglobin concentration measurement (mass/volume) 34 g/dL 32-36 Automated erythrocyte distribution width ratio 14. 5 % 10.0- 14.5 Automated blood platelet count (count/volume) 182 10*3/uL 130-400 Automated blood platelet mean volume measurement 9.3 [foz_us] 7.4-10.4 Whole blood basic metabolic panel - 02/28 12/18 05:00 Serum or plasma sodium measurement (moles/volume) 137 mmol/L 135-145 Serum or plasma potassium measurement (moles/volume) 4.1 mmol/L 3.6-5.0 Serum or plasma chloride measurement (moles/volume) 101 mmol/L 98-107 Carbon dioxide 24 mmol/L 21-32 Serum or plasma anion gap determination (moles/volume) 12 mmol/L 5-14 Serum or plasma urea nitrogen measurement (mass/volume ) 11 mg/dL 7-18 Serum or plasma creatinine measurement (mass/volume) 0.92 mg/dL 0.60-1.30 Serum or plasma urea nitrogen/creatinine mass ratio 12 NRG Serum or plasma creatinine measurement w ith calculation of estimated glomerular filtration rate > NRG Serum or plasma glucose measurement (mass/volume) 122 mg/dL 70-105 Serum or plasma calcium measurement (mass/volume) 9.3 mg/dL 8.5-10.1 Automated blood complete blood count (he mogram) panel - 04/16/19 07:15 Blood leukocytes automated count (number/volume) 5.2 10*3/uL 4.3-11.0 Blood erythrocytes automated count (number/volume) 5.81 10*6/uL 4.35-5.85 Venous blood hemoglobin measurement (mass/volume) 17.1 g/dL 13.3-17.7 Blood hematocrit (volume fraction) 52 % 40-54 Automated erythrocyte mean corpuscular volume 89 [ foz_us] 80-99 Automated erythrocyte mean corpuscular h emoglobin (mass per erythrocyte) 29 pg 25-34 Automated erythrocyte mean corpuscular h emoglobin concentration measurement (mass/volume) 33 g/dL 32-36 Automated erythrocyte distribution width ratio 14. 9 % 10.0- 14.5 Automated blood platelet count (count/volume) 192 10*3/uL 130-400 Automated blood platelet mean volume measurement 9.1 [foz_us] 7.4-10.4 PT panel in platelet poor plasma by coag ulation assay - 04/16/19 07:15 Prothrombin time (PT) in platelet poor plasma by coagu lation assay 12.7 s 12.2-14.7 INR in platelet poor plasma or blood by coagulation as say 0.9 0.8-1.4 Activated partial thromboplastin time (a PTT) in platelet poor plasma bycoagulation assay - 04/16/19 07:15 Activated partial thromboplastin time (a PTT) in platelet poor plasma bycoagulation assay 26 s 24-35 Comprehensive metabolic panel - 04/16/19 07:15 Serum or plasma sodium measurement (moles/volume) 137 mmol/L 135-145 Serum or plasma potassium measurement (moles/volume) 3.9 mmol/L 3.6-5.0 Serum or plasma chloride measurement (moles/volume) 97 mmol/L 98-107 Carbon dioxide 28 mmol/L 21-32 Serum or plasma anion gap determination (moles/volume) 12 mmol/L 5-14 Serum or plasma urea nitrogen measurement (mass/volume ) 14 mg/dL 7-18 Serum or plasma creatinine measurement (mass/volume) 1.01 mg/dL 0.60-1.30 Serum or plasma urea nitrogen/creatinine mass ratio 14 NRG Serum or plasma creatinine measurement w ith calculation of estimated glomerular filtration rate > NRG Serum or plasma glucose measurement (mass/volume) 131 mg/dL 70-105 Serum or plasma calcium measurement (mass/volume) 9.8 mg/dL 8.5-10.1 Serum or plasma total bilirubin measurement (mass/volu me) 0.3 mg/dL 0.1-1.0 Serum or plasma alkaline phosphatase venus surement (enzymatic activity/volume) 166 U/L 40-136 Serum or plasma aspartate aminotransfera se measurement (enzymatic activity/volume) 11 U/L 5-34 Serum or plasma alanine aminotransferase measurement (enzymatic activity/volume) 16 U/L 0-55 Serum or plasma protein measurement (mass/volume) 7.6 g/dL 6.4-8.2 Serum or plasma albumin measurement (mass/volume) 4.1 g/dL 3.2-4.5 CALCIUM CORRECTED 9.7 mg/dL 8.5-10.1 Lipid 1996 panel - 04/16/19 07:15 Serum or plasma triglyceride measurement (mass/volume) 406 mg/dL <150 Serum or plasma cholesterol measurement (mass/volume) 215 mg/dL < 200 Serum or plasma cholesterol in HDL measurement (mass/v olume) 33 mg/dL 40-60 Cholesterol in LDL [mass/volume] in serum or plasma by direct assay 98 mg/dL 1-129 Serum or plasma cholesterol in VLDL measurement (mass/ volume) TNP 5-40 Methicillin resistant Staphylococcus aur eus (MRSA) screening culture - 04/16/19 07:15 Methicillin resistant Staphylococcus aureus (MRSA) scr eening culture NEG NRG Automated blood complete blood count (he mogram) panel - 04/17/19 03:25 Blood leukocytes automated count (number/volume) 4.6 10*3/uL 4.3-11.0 Blood erythrocytes automated count (number/volume) 5.30 10*6/uL 4.35-5.85 Venous blood hemoglobin measurement (mass/volume) 15.4 g/dL 13.3-17.7 Blood hematocrit (volume fraction) 48 % 40-54 Automated erythrocyte mean corpuscular volume 90 [ foz_us] 80-99 Automated erythrocyte mean corpuscular h emoglobin (mass per erythrocyte) 29 pg 25-34 Automated erythrocyte mean corpuscular h emoglobin concentration measurement (mass/volume) 32 g/dL 32-36 Automated erythrocyte distribution width ratio 14. 6 % 10.0- 14.5 Automated blood platelet count (count/volume) 155 10*3/uL 130-400 Automated blood platelet mean volume measurement 9.3 [foz_us] 7.4-10.4 Whole blood basic metabolic panel - 03/30 07/18 03:25 Serum or plasma sodium measurement (moles/volume) 134 mmol/L 135-145 Serum or plasma potassium measurement (moles/volume) 4.1 mmol/L 3.6-5.0 Serum or plasma chloride measurement (moles/volume) 98 mmol/L 98-107 Carbon dioxide 26 mmol/L 21-32 Serum or plasma anion gap determination (moles/volume) 10 mmol/L 5-14 Serum or plasma urea nitrogen measurement (mass/volume ) 12 mg/dL 7-18 Serum or plasma creatinine measurement (mass/volume) 0.86 mg/dL 0.60-1.30 Serum or plasma urea nitrogen/creatinine mass ratio 14 NRG Serum or plasma creatinine measurement w ith calculation of estimated glomerular filtration rate > NRG Serum or plasma glucose measurement (mass/volume) 133 mg/dL 70-105 Serum or plasma calcium measurement (mass/volume) 9.0 mg/dL 8.5-10.1 CBC - 05/23/19 11:51 WHITE BLOOD CELL COUNT 7.1 Thousand/uL 3 .8-10.8 RED BLOOD CELL COUNT 5.63 Million/uL 4.2 0-5.80 HEMOGLOBIN 16.9 g/dL 13.2-17.1 HEMATOCRIT 49.2 % 38.5-50.0 MCV 87.4 fL 80.0-100.0 MCH 30.0 pg 27.0-33.0 MCHC 34.3 g/dL 32.0-36.0 RDW 14.3 % 11.0-15.0 PLATELET COUNT 202 Thousand/uL 140-400 MPV 9.2 fL 7.5-12.5 ABSOLUTE NEUTROPHILS 6113 cells/uL 1500- 7800 ABSOLUTE LYMPHOCYTES 717 cells/uL 850-39 00 ABSOLUTE MONOCYTES 199 cells/uL 200-950 ABSOLUTE EOSINOPHILS 43 cells/uL 15-500 ABSOLUTE BASOPHILS 28 cells/uL 0-200 NEUTROPHILS 86.1 % NRG LYMPHOCYTES 10.1 % NRG MONOCYTES 2.8 % NRG EOSINOPHILS 0.6 % NRG BASOPHILS 0.4 % NRG CULTURE, ANAEROBIC AND AEROBIC - 9 08:55 CULTURE, ANAEROBIC BACTERIA W/GRAM STAIN SEE NOTE NRG CULTURE, AEROBIC BACTERIA SEE NOTE NRG DILANTIN - 06/18/19 14:31 PHENYTOIN <2.5 mg/L 10.0-20.0 Complete urinalysis with reflex to cultu re - 06/24/19 19:07 Urine color determination YELLOW NRG Urine clarity determination SL CLOUDY N RG Urine pH measurement by test strip 6 5-9 Specific gravity of urine by test strip 1.020 1.016-1.022 Urine protein assay by test strip, semi-quantitative 1+ NEGATIVE Urine glucose detection by automated test strip NE GATIVE NEGATIVE Erythrocytes detection in urine sediment by light micr oscopy NEGATIVE NEGATIVE Urine ketones detection by automated test strip 1+ NEGATIVE Urine nitrite detection by test strip NEGATIVE NEGATIVE Urine total bilirubin detection by test strip NEGA TIVE NEGATIVE Urine urobilinogen measurement by automated test strip (mass/volume) 1 mg/dL NORMAL Urine leukocyte esterase detection by dipstick 1+ NEGATIVE Automated urine sediment erythrocyte cou nt by microscopy (number/high power field) RARE NRG Automated urine sediment leukocyte count by microscopy (number/high power field) RARE NRG Bacteria detection in urine sediment by light microsco py TRACE NRG Squamous epithelial cells detection in u rine sediment by light microscopy RARE NRG Crystals detection in urine sediment by light microsco py NONE NRG Casts detection in urine sediment by light microscopy NONE NRG Mucus detection in urine sediment by light microscopy MODERATE NRG Complete urinalysis with reflex to culture NO NRG MAGNESIUM SERUM - 10/02/19 16:56 MAGNESIUM 1.9 mg/dL 1.5-2.5 [facility] - 02/13/20 10:39 GLUCOSE 208 mg/dL 65-139 UREA NITROGEN (BUN) 15 mg/dL 7-25 CREATININE 1.05 mg/dL 0.70-1.33 eGFR NON-AFR. KOSOVAN 78 mL/min/1.73m2 > OR = 60 eGFR 90 mL/min/1.73m2 > OR = 60 BUN/CREATININE RATIO NOT APPLICABLE (calc) 6-22 SODIUM 140 mmol/L 135-146 POTASSIUM 3.9 mmol/L 3.5-5.3 CHLORIDE 97 mmol/L 98-110 CARBON DIOXIDE 36 mmol/L 20-32 CALCIUM 9.7 mg/dL 8.6-10.3 [facility] - 02/20/20 10:09 GLUCOSE 194 mg/dL 65-99 UREA NITROGEN (BUN) 19 mg/dL 7-25 CREATININE 0.91 mg/dL 0.70-1.33 eGFR NON-AFR. KOSOVAN 93 mL/min/1.73m2 > OR = 60 eGFR 107 mL/min/1.73m2 > OR = 60 BUN/CREATININE RATIO NOT APPLICABLE (calc) 6-22 SODIUM 136 mmol/L 135-146 POTASSIUM 3.7 mmol/L 3.5-5.3 CHLORIDE 92 mmol/L 98-110 CARBON DIOXIDE 37 mmol/L 20-32 CALCIUM 9.6 mg/dL 8.6-10.3 [facility] - 02/26/20 13:13 GLUCOSE 132 mg/dL 65-99 UREA NITROGEN (BUN) 16 mg/dL 7-25 CREATININE 1.12 mg/dL 0.70-1.33 eGFR NON-AFR. KOSOVAN 72 mL/min/1.73m2 > OR = 60 eGFR 83 mL/min/1.73m2 > OR = 60 BUN/CREATININE RATIO NOT APPLICABLE (calc) 6-22 SODIUM 139 mmol/L 135-146 POTASSIUM 3.5 mmol/L 3.5-5.3 CHLORIDE 97 mmol/L 98-110 CARBON DIOXIDE 34 mmol/L 20-32 CALCIUM 9.3 mg/dL 8.6-10.3 PROTEIN, TOTAL 6.5 g/dL 6.1-8.1 ALBUMIN 3.9 g/dL 3.6-5.1 GLOBULIN 2.6 g/dL (calc) 1.9-3.7 ALBUMIN/GLOBULIN RATIO 1.5 (calc) 1.0-2. 5 BILIRUBIN, TOTAL 0.4 mg/dL 0.2-1.2 ALKALINE PHOSPHATASE 151 U/L 35-144 AST 18 U/L 10-35 ALT 26 U/L 9-46 CBC - 02/26/20 13:13 WHITE BLOOD CELL COUNT 5.3 Thousand/uL 3 .8-10.8 RED BLOOD CELL COUNT 5.63 Million/uL 4.2 0-5.80 HEMOGLOBIN 17.0 g/dL 13.2-17.1 HEMATOCRIT 50.5 % 38.5-50.0 MCV 89.7 fL 80.0-100.0 MCH 30.2 pg 27.0-33.0 MCHC 33.7 g/dL 32.0-36.0 RDW 14.5 % 11.0-15.0 PLATELET COUNT 228 Thousand/uL 140-400 MPV 9.3 fL 7.5-12.5 ABSOLUTE NEUTROPHILS 3445 cells/uL 1500- 7800 ABSOLUTE LYMPHOCYTES 1118 cells/uL 850-3 900 ABSOLUTE MONOCYTES 371 cells/uL 200-950 ABSOLUTE EOSINOPHILS 313 cells/uL 15-500 ABSOLUTE BASOPHILS 53 cells/uL 0-200 NEUTROPHILS 65 % NRG LYMPHOCYTES 21.1 % NRG MONOCYTES 7.0 % NRG EOSINOPHILS 5.9 % NRG BASOPHILS 1.0 % NRG BNP - 02/26/20 13:13 B TYPE NATRIURETIC PEPTIDE (BNP) 8 pg/mL <100 Arterial blood gas measurement - 0 11:30 Blood pCO2 61 mm[Hg] 35-45 Blood pO2 99 mm[Hg] 79-93 Arterial blood bicarbonate measurement (moles/volume) 34 mmol/L 23-27 Arterial blood base excess by calculation 8.4 mmol /L -2.5-2.5 Arterial blood oxygen saturation measurement 98 % 94-100 * Inhaled oxygen flow rate 2L NRG Arterial blood pH measurement with patient temperature correction 7.36 7.37-7.43 Arterial blood carbon dioxide, total measurement (mole s/volume) 35.6 mmol/L 21.0-31.0 Body site RR NRG Assessment of wrist artery patency prior to arterial p uncture YES-POS NRG Setting of ventilation mode NO NR G Measurement of body temperature 37.2 NRG Complete blood count (CBC) with automate d white blood cell (WBC) differential - 03/13/20 11:40 Blood leukocytes automated count (number/volume) 5.6 10*3/uL 4.3-11.0 Blood erythrocytes automated count (number/volume) 5.51 10*6/uL 4.35-5.85 Venous blood hemoglobin measurement (mass/volume) 16.9 g/dL 13.3-17.7 Blood hematocrit (volume fraction) 51 % 40-54 Automated erythrocyte mean corpuscular volume 93 [ foz_us] 80-99 Automated erythrocyte mean corpuscular h emoglobin (mass per erythrocyte) 31 pg 25-34 Automated erythrocyte mean corpuscular h emoglobin concentration measurement (mass/volume) 33 g/dL 32-36 Automated erythrocyte distribution width ratio 16. 0 % 10.0- 14.5 Automated blood platelet count (count/volume) 172 10*3/uL 130-400 Automated blood platelet mean volume measurement 9.4 [foz_us] 7.4-10.4 Automated blood neutrophils/100 leukocytes 64 % 42-75 Automated blood lymphocytes/100 leukocytes 22 % 12-44 Blood monocytes/100 leukocytes 7 % 0-12 Automated blood eosinophils/100 leukocytes 7 % 0-10 Automated blood basophils/100 leukocytes 1 % 0-10 Blood neutrophils automated count (number/volume) 3.6 10*3 1.8-7.8 Blood lymphocytes automated count (number/volume) 1.2 10*3 1.0-4.0 Blood monocytes automated count (number/volume) 0. 4 10*3 0.0-1.0 Automated eosinophil count 0.4 10*3/uL 0 .0-0.3 Automated blood basophil count (count/volume) 0.0 10*3/uL 0.0-0.1 Comprehensive metabolic panel - 03/13/20 11:40 Serum or plasma sodium measurement (moles/volume) 138 mmol/L 135-145 Serum or plasma potassium measurement (moles/volume) 3.6 mmol/L 3.6-5.0 Serum or plasma chloride measurement (moles/volume) 95 mmol/L 98-107 Carbon dioxide 30 mmol/L 21-32 Serum or plasma anion gap determination (moles/volume) 13 mmol/L 5-14 Serum or plasma urea nitrogen measurement (mass/volume ) 19 mg/dL 7-18 Serum or plasma creatinine measurement (mass/volume) 1.22 mg/dL 0.60-1.30 Serum or plasma urea nitrogen/creatinine mass ratio 16 NRG Serum or plasma creatinine measurement w ith calculation of estimated glomerular filtration rate > NRG Serum or plasma glucose measurement (mass/volume) 136 mg/dL 70-105 Serum or plasma calcium measurement (mass/volume) 9.4 mg/dL 8.5-10.1 Serum or plasma total bilirubin measurement (mass/volu me) 0.3 mg/dL 0.1-1.0 Serum or plasma alkaline phosphatase venus surement (enzymatic activity/volume) 146 U/L 40-136 Serum or plasma aspartate aminotransfera se measurement (enzymatic activity/volume) 18 U/L 5-34 Serum or plasma alanine aminotransferase measurement (enzymatic activity/volume) 25 U/L 0-55 Serum or plasma protein measurement (mass/volume) 7.3 g/dL 6.4-8.2 Serum or plasma albumin measurement (mass/volume) 4.0 g/dL 3.2-4.5 CALCIUM CORRECTED 9.4 mg/dL 8.5-10.1 Blood lactic acid measurement (moles/vol ume) - 03/13/20 11:40 Blood lactic acid measurement (moles/volume) 1.33 mmol/L 0.50-2.00 Serum or plasma C reactive protein measu rement (mass/volume) - 03/13/20 11:40 Serum or plasma C reactive protein measurement (mass/v olume) 2.56 mg/dL 0.00-0.50 PT panel in platelet poor plasma by coag ulation assay - 03/13/20 11:40 Prothrombin time (PT) in platelet poor plasma by coagu lation assay 11.9 s 12.2-14.7 INR in platelet poor plasma or blood by coagulation as say 0.8 0.8-1.4 Activated partial thromboplastin time (a PTT) in platelet poor plasma bycoagulation assay - 03/13/20 11:40 Activated partial thromboplastin time (a PTT) in platelet poor plasma bycoagulation assay 26 s 24-35 Fibrin D-dimer FEU measurement in platel et poor plasma (mass/volume) - 03/13/20 11:40 Fibrin D-dimer FEU measurement in platelet poor plasma (mass/volume) < ug/mL 0.00-0.49 Serum or plasma troponin i.cardiac measu rement (mass/volume) - 03/13/20 11:40 Serum or plasma troponin i.cardiac measurement (mass/v olume) 0.077 ng/mL <0.028 DILANTIN (PHENYTOIN) - 03/13/20 11:40 DILANTIN PHEN 2.2 % 10.0-20.0 Bacterial blood culture - 03/13/20 11:40 Bacterial blood culture NG NRG Bacterial blood culture - 03/13/20 11:58 Bacterial blood culture NG NRG Complete urinalysis with reflex to cultu re - 03/13/20 12:30 Urine color determination YELLOW NRG Urine clarity determination CLEAR NR G Urine pH measurement by test strip 5.0 5-9 Specific gravity of urine by test strip 1.010 1.016-1.022 Urine protein assay by test strip, semi-quantitative NEGATIVE NEGATIVE Urine glucose detection by automated test strip NE GATIVE NEGATIVE Erythrocytes detection in urine sediment by light micr oscopy NEGATIVE NEGATIVE Urine ketones detection by automated test strip NE GATIVE NEGATIVE Urine nitrite detection by test strip NEGATIVE NEGATIVE Urine total bilirubin detection by test strip NEGA TIVE NEGATIVE Urine urobilinogen measurement by automated test strip (mass/volume) 0.2 mg/dL < = 1.0 Urine leukocyte esterase detection by dipstick TRA CE NEGATIVE Automated urine sediment erythrocyte cou nt by microscopy (number/high power field) NONE NRG Automated urine sediment leukocyte count by microscopy (number/high power field) [HPF] NRG Bacteria detection in urine sediment by light microsco py NEGATIVE NRG Crystals detection in urine sediment by light microsco py NONE NRG Casts detection in urine sediment by light microscopy PRESENT NRG Mucus detection in urine sediment by light microscopy NEGATIVE NRG Complete urinalysis with reflex to culture NO NRG Hyaline casts detection in urine sediment by light coral roscopy RARE NRG Bacterial urine culture - 03/13/20 12:30 Bacterial urine culture NG NRG Arterial blood gas measurement - 0 13:30 Blood pCO2 59 mm[Hg] 35-45 Blood pO2 101 mm[Hg] 79-93 Arterial blood bicarbonate measurement (moles/volume) 31 mmol/L 23-27 Arterial blood base excess by calculation 5.8 mmol /L -2.5-2.5 Arterial blood oxygen saturation measurement 98 % 94-100 * Inhaled oxygen flow rate 30% NRG Arterial blood pH measurement with patient temperature correction 7.35 7.37-7.43 Arterial blood carbon dioxide, total measurement (mole s/volume) 33.1 mmol/L 21.0-31.0 Body site LR NRG Assessment of wrist artery patency prior to arterial p uncture YES-POS NRG Setting of ventilation mode YES NR G Measurement of body temperature 36.9 NRG Complete blood count (CBC) with automate d white blood cell (WBC) differential - 03/14/20 04:28 Blood leukocytes automated count (number/volume) 7.0 10*3/uL 4.3-11.0 Blood erythrocytes automated count (number/volume) 4.99 10*6/uL 4.35-5.85 Venous blood hemoglobin measurement (mass/volume) 15.5 g/dL 13.3-17.7 Blood hematocrit (volume fraction) 46 % 40-54 Automated erythrocyte mean corpuscular volume 93 [ foz_us] 80-99 Automated erythrocyte mean corpuscular h emoglobin (mass per erythrocyte) 31 pg 25-34 Automated erythrocyte mean corpuscular h emoglobin concentration measurement (mass/volume) 34 g/dL 32-36 Automated erythrocyte distribution width ratio 15. 8 % 10.0- 14.5 Automated blood platelet count (count/volume) 148 10*3/uL 130-400 Automated blood platelet mean volume measurement 9.6 [foz_us] 7.4-10.4 Automated blood neutrophils/100 leukocytes 91 % 42-75 Automated blood lymphocytes/100 leukocytes 7 % 12-44 Blood monocytes/100 leukocytes 2 % 0-12 Automated blood eosinophils/100 leukocytes 0 % 0-10 Automated blood basophils/100 leukocytes 0 % 0-10 Blood neutrophils automated count (number/volume) 6.4 10*3 1.8-7.8 Blood lymphocytes automated count (number/volume) 0.5 10*3 1.0-4.0 Blood monocytes automated count (number/volume) 0. 2 10*3 0.0-1.0 Automated eosinophil count 0.0 10*3/uL 0 .0-0.3 Automated blood basophil count (count/volume) 0.0 10*3/uL 0.0-0.1 Whole blood basic metabolic panel - 02/27 04/18 04:28 Serum or plasma sodium measurement (moles/volume) 135 mmol/L 135-145 Serum or plasma potassium measurement (moles/volume) 4.6 mmol/L 3.6-5.0 Serum or plasma chloride measurement (moles/volume) 99 mmol/L 98-107 Carbon dioxide 25 mmol/L 21-32 Serum or plasma anion gap determination (moles/volume) 11 mmol/L 5-14 Serum or plasma urea nitrogen measurement (mass/volume ) 18 mg/dL 7-18 Serum or plasma creatinine measurement (mass/volume) 0.97 mg/dL 0.60-1.30 Serum or plasma urea nitrogen/creatinine mass ratio 19 NRG Serum or plasma creatinine measurement w ith calculation of estimated glomerular filtration rate > NRG Serum or plasma glucose measurement (mass/volume) 252 mg/dL 70-105 Serum or plasma calcium measurement (mass/volume) 8.5 mg/dL 8.5-10.1 Manual absolute plasma cell count - 02/27 04/18 04:28 Blood monocytes/100 leukocytes 3 % NRG Manual blood segmented neutrophils/100 leukocytes 88 % NRG Blood band neutrophils/100 leukocytes 1 % NRG Manual blood lymphocytes/100 leukocytes 8 % NRG Blood erythrocyte morphology finding identification NORMAL NRG Serum or plasma lithium measurement (mol es/volume) - 03/14/20 04:28 BNP PT 23.9 pg/mL <100.0 Complete blood count (CBC) with automate d white blood cell (WBC) differential - 03/15/20 04:02 Blood leukocytes automated count (number/volume) 8.0 10*3/uL 4.3-11.0 Blood erythrocytes automated count (number/volume) 5.07 10*6/uL 4.35-5.85 Venous blood hemoglobin measurement (mass/volume) 15.4 g/dL 13.3-17.7 Blood hematocrit (volume fraction) 48 % 40-54 Automated erythrocyte mean corpuscular volume 96 [ foz_us] 80-99 Automated erythrocyte mean corpuscular h emoglobin (mass per erythrocyte) 30 pg 25-34 Automated erythrocyte mean corpuscular h emoglobin concentration measurement (mass/volume) 32 g/dL 32-36 Automated erythrocyte distribution width ratio 15. 9 % 10.0- 14.5 Automated blood platelet count (count/volume) 177 10*3/uL 130-400 Automated blood platelet mean volume measurement 10.0 [foz_us] 7.4-10.4 Automated blood neutrophils/100 leukocytes 90 % 42-75 Automated blood lymphocytes/100 leukocytes 7 % 12-44 Blood monocytes/100 leukocytes 3 % 0-12 Automated blood eosinophils/100 leukocytes 0 % 0-10 Automated blood basophils/100 leukocytes 0 % 0-10 Blood neutrophils automated count (number/volume) 7.2 10*3 1.8-7.8 Blood lymphocytes automated count (number/volume) 0.6 10*3 1.0-4.0 Blood monocytes automated count (number/volume) 0. 3 10*3 0.0-1.0 Automated eosinophil count 0.0 10*3/uL 0 .0-0.3 Automated blood basophil count (count/volume) 0.0 10*3/uL 0.0-0.1 Comprehensive metabolic panel - 03/15/20 04:02 Serum or plasma sodium measurement (moles/volume) 138 mmol/L 135-145 Serum or plasma potassium measurement (moles/volume) 4.7 mmol/L 3.6-5.0 Serum or plasma chloride measurement (moles/volume) 100 mmol/L 98-107 Carbon dioxide 26 mmol/L 21-32 Serum or plasma anion gap determination (moles/volume) 12 mmol/L 5-14 Serum or plasma urea nitrogen measurement (mass/volume ) 19 mg/dL 7-18 Serum or plasma creatinine measurement (mass/volume) 1.00 mg/dL 0.60-1.30 Serum or plasma urea nitrogen/creatinine mass ratio 19 NRG Serum or plasma creatinine measurement w ith calculation of estimated glomerular filtration rate > NRG Serum or plasma glucose measurement (mass/volume) 301 mg/dL 70-105 Serum or plasma calcium measurement (mass/volume) 8.6 mg/dL 8.5-10.1 Serum or plasma total bilirubin measurement (mass/volu me) 0.2 mg/dL 0.1-1.0 Serum or plasma alkaline phosphatase venus surement (enzymatic activity/volume) 110 U/L 40-136 Serum or plasma aspartate aminotransfera se measurement (enzymatic activity/volume) 24 U/L 5-34 Serum or plasma alanine aminotransferase measurement (enzymatic activity/volume) 33 U/L 0-55 Serum or plasma protein measurement (mass/volume) 6.7 g/dL 6.4-8.2 Serum or plasma albumin measurement (mass/volume) 3.7 g/dL 3.2-4.5 CALCIUM CORRECTED 8.8 mg/dL 8.5-10.1 Complete blood count (CBC) with automate d white blood cell (WBC) differential - 03/16/20 05:15 Blood leukocytes automated count (number/volume) 7.2 10*3/uL 4.3-11.0 Blood erythrocytes automated count (number/volume) 4.93 10*6/uL 4.35-5.85 Venous blood hemoglobin measurement (mass/volume) 14.9 g/dL 13.3-17.7 Blood hematocrit (volume fraction) 47 % 40-54 Automated erythrocyte mean corpuscular volume 96 [ foz_us] 80-99 Automated erythrocyte mean corpuscular h emoglobin (mass per erythrocyte) 30 pg 25-34 Automated erythrocyte mean corpuscular h emoglobin concentration measurement (mass/volume) 31 g/dL 32-36 Automated erythrocyte distribution width ratio 16. 0 % 10.0- 14.5 Automated blood platelet count (count/volume) 163 10*3/uL 130-400 Automated blood platelet mean volume measurement 9.6 [foz_us] 7.4-10.4 Automated blood neutrophils/100 leukocytes 84 % 42-75 Automated blood lymphocytes/100 leukocytes 11 % 12-44 Blood monocytes/100 leukocytes 5 % 0-12 Automated blood eosinophils/100 leukocytes 0 % 0-10 Automated blood basophils/100 leukocytes 0 % 0-10 Blood neutrophils automated count (number/volume) 6.0 10*3 1.8-7.8 Blood lymphocytes automated count (number/volume) 0.8 10*3 1.0-4.0 Blood monocytes automated count (number/volume) 0. 4 10*3 0.0-1.0 Automated eosinophil count 0.0 10*3/uL 0 .0-0.3 Automated blood basophil count (count/volume) 0.0 10*3/uL 0.0-0.1 Comprehensive metabolic panel - 05/18/20 05:15 Serum or plasma sodium measurement (moles/volume) 139 mmol/L 135-145 Serum or plasma potassium measurement (moles/volume) 4.8 mmol/L 3.6-5.0 Serum or plasma chloride measurement (moles/volume) 96 mmol/L 98-107 Carbon dioxide 34 mmol/L 21-32 Serum or plasma anion gap determination (moles/volume) 9 mmol/L 5-14 Serum or plasma urea nitrogen measurement (mass/volume ) 18 mg/dL 7-18 Serum or plasma creatinine measurement (mass/volume) 1.20 mg/dL 0.60-1.30 Serum or plasma urea nitrogen/creatinine mass ratio 15 NRG Serum or plasma creatinine measurement w ith calculation of estimated glomerular filtration rate > NRG Serum or plasma glucose measurement (mass/volume) 292 mg/dL 70-105 Serum or plasma calcium measurement (mass/volume) 8.8 mg/dL 8.5-10.1 Serum or plasma total bilirubin measurement (mass/volu me) 0.3 mg/dL 0.1-1.0 Serum or plasma alkaline phosphatase venus surement (enzymatic activity/volume) 113 U/L 40-136 Serum or plasma aspartate aminotransfera se measurement (enzymatic activity/volume) 18 U/L 5-34 Serum or plasma alanine aminotransferase measurement (enzymatic activity/volume) 34 U/L 0-55 Serum or plasma protein measurement (mass/volume) 6.4 g/dL 6.4-8.2 Serum or plasma albumin measurement (mass/volume) 3.7 g/dL 3.2-4.5 CALCIUM CORRECTED 9.0 mg/dL 8.5-10.1 Automated blood complete blood count ( mogram) panel - 04/28/20 07:23 Blood leukocytes automated count (number/volume) 6.0 10*3/uL 4.3-11.0 Blood erythrocytes automated count (number/volume) 5.51 10*6/uL 4.35-5.85 Venous blood hemoglobin measurement (mass/volume) 17.0 g/dL 13.3-17.7 Blood hematocrit (volume fraction) 51 % 40-54 Automated erythrocyte mean corpuscular volume 93 [ foz_us] 80-99 Automated erythrocyte mean corpuscular h emoglobin (mass per erythrocyte) 31 pg 25-34 Automated erythrocyte mean corpuscular h emoglobin concentration measurement (mass/volume) 33 g/dL 32-36 Automated erythrocyte distribution width ratio 15. 4 % 10.0- 14.5 Automated blood platelet count (count/volume) 171 10*3/uL 130-400 Automated blood platelet mean volume measurement 9.3 [foz_us] 7.4-10.4 PT panel in platelet poor plasma by coag ulation assay - 04/28/20 07:23 Prothrombin time (PT) in platelet poor plasma by coagu lation assay 12.3 s 12.2-14.7 INR in platelet poor plasma or blood by coagulation as say 0.9 0.8-1.4 Activated partial thromboplastin time (a PTT) in platelet poor plasma bycoagulation assay - 04/28/20 07:23 Activated partial thromboplastin time (a PTT) in platelet poor plasma bycoagulation assay 24 s 24-35 Comprehensive metabolic panel - 04/28/20 07:23 Serum or plasma sodium measurement (moles/volume) 138 mmol/L 135-145 Serum or plasma potassium measurement (moles/volume) 4.0 mmol/L 3.6-5.0 Serum or plasma chloride measurement (moles/volume) 96 mmol/L 98-107 Carbon dioxide 27 mmol/L 21-32 Serum or plasma anion gap determination (moles/volume) 15 mmol/L 5-14 Serum or plasma urea nitrogen measurement (mass/volume ) 21 mg/dL 7-18 Serum or plasma creatinine measurement (mass/volume) 1.04 mg/dL 0.60-1.30 Serum or plasma urea nitrogen/creatinine mass ratio 20 NRG Serum or plasma creatinine measurement w ith calculation of estimated glomerular filtration rate > NRG Serum or plasma glucose measurement (mass/volume) 202 mg/dL 70-105 Serum or plasma calcium measurement (mass/volume) 9.4 mg/dL 8.5-10.1 Serum or plasma total bilirubin measurement (mass/volu me) 0.3 mg/dL 0.1-1.0 Serum or plasma alkaline phosphatase venus surement (enzymatic activity/volume) 161 U/L 40-136 Serum or plasma aspartate aminotransfera se measurement (enzymatic activity/volume) 18 U/L 5-34 Serum or plasma alanine aminotransferase measurement (enzymatic activity/volume) 44 U/L 0-55 Serum or plasma protein measurement (mass/volume) 7.0 g/dL 6.4-8.2 Serum or plasma albumin measurement (mass/volume) 3.9 g/dL 3.2-4.5 CALCIUM CORRECTED 9.5 mg/dL 8.5-10.1 Lipid 1996 panel - 04/28/20 07:23 Serum or plasma triglyceride measurement (mass/volume) 989 mg/dL <150 Serum or plasma cholesterol measurement (mass/volume) 273 mg/dL < 200 Serum or plasma cholesterol in HDL measurement (mass/v olume) 39 mg/dL 40-60 Cholesterol in LDL [mass/volume] in serum or plasma by direct assay 110 mg/dL 1-129 Serum or plasma cholesterol in VLDL measurement (mass/ volume) 198 mg/dL 5-40 Methicillin resistant Staphylococcus aur eus (MRSA) screening culture - 04/28/20 07:23 Methicillin resistant Staphylococcus aureus (MRSA) scr eening culture NEG NRG Complete blood count (CBC) with automate d white blood cell (WBC) differential - 05/11/20 15:05 Blood leukocytes automated count (number/volume) 8.6 10*3/uL 4.3-11.0 Blood erythrocytes automated count (number/volume) 5.46 10*6/uL 4.35-5.85 Venous blood hemoglobin measurement (mass/volume) 17.0 g/dL 13.3-17.7 Blood hematocrit (volume fraction) 51 % 40-54 Automated erythrocyte mean corpuscular volume 93 [ foz_us] 80-99 Automated erythrocyte mean corpuscular h emoglobin (mass per erythrocyte) 31 pg 25-34 Automated erythrocyte mean corpuscular h emoglobin concentration measurement (mass/volume) 34 g/dL 32-36 Automated erythrocyte distribution width ratio 15. 6 % 10.0- 14.5 Automated blood platelet count (count/volume) 161 10*3/uL 130-400 Automated blood platelet mean volume measurement 9.5 [foz_us] 7.4-10.4 Automated blood neutrophils/100 leukocytes 95 % 42-75 Automated blood lymphocytes/100 leukocytes 4 % 12-44 Blood monocytes/100 leukocytes 1 % 0-12 Automated blood eosinophils/100 leukocytes 0 % 0-10 Automated blood basophils/100 leukocytes 0 % 0-10 Blood neutrophils automated count (number/volume) 8.2 10*3 1.8-7.8 Blood lymphocytes automated count (number/volume) 0.4 10*3 1.0-4.0 Blood monocytes automated count (number/volume) 0. 1 10*3 0.0-1.0 Automated eosinophil count 0.0 10*3/uL 0 .0-0.3 Automated blood basophil count (count/volume) 0.0 10*3/uL 0.0-0.1 Comprehensive metabolic panel - 05/11/20 15:05 Serum or plasma sodium measurement (moles/volume) 135 mmol/L 135-145 Serum or plasma potassium measurement (moles/volume) 4.3 mmol/L 3.6-5.0 Serum or plasma chloride measurement (moles/volume) 94 mmol/L 98-107 Carbon dioxide 28 mmol/L 21-32 Serum or plasma anion gap determination (moles/volume) 13 mmol/L 5-14 Serum or plasma urea nitrogen measurement (mass/volume ) 13 mg/dL 7-18 Serum or plasma creatinine measurement (mass/volume) 1.21 mg/dL 0.60-1.30 Serum or plasma urea nitrogen/creatinine mass ratio 11 NRG Serum or plasma creatinine measurement w ith calculation of estimated glomerular filtration rate > NRG Serum or plasma glucose measurement (mass/volume) 371 mg/dL 70-105 Serum or plasma calcium measurement (mass/volume) 9.1 mg/dL 8.5-10.1 Serum or plasma total bilirubin measurement (mass/volu me) 0.6 mg/dL 0.1-1.0 Serum or plasma alkaline phosphatase venus surement (enzymatic activity/volume) 157 U/L 40-136 Serum or plasma aspartate aminotransfera se measurement (enzymatic activity/volume) 17 U/L 5-34 Serum or plasma alanine aminotransferase measurement (enzymatic activity/volume) 29 U/L 0-55 Serum or plasma protein measurement (mass/volume) 7.1 g/dL 6.4-8.2 Serum or plasma albumin measurement (mass/volume) 3.9 g/dL 3.2-4.5 CALCIUM CORRECTED 9.2 mg/dL 8.5-10.1 PT panel in platelet poor plasma by coag ulation assay - 05/11/20 15:05 Prothrombin time (PT) in platelet poor plasma by coagu lation assay 12.6 s 12.2-14.7 INR in platelet poor plasma or blood by coagulation as say 0.9 0.8-1.4 Manual absolute plasma cell count - 04/29 01/16 15:05 Manual blood segmented neutrophils/100 leukocytes 97 % NRG Manual blood lymphocytes/100 leukocytes 3 % NRG Blood erythrocyte morphology finding identification NORMAL NRG Encounters ACCT No. Visit Date/Time Discharge Status Pt. Type Provider Facility Loc./Unit Complaint [id number] 11/24/2016 10:06:00 Document Registration [id number] 05/11/2020 09:10:00 ACT Outpatient RENETTA CARDOZA APRN [facility] [id number] 02/26/2020 12:30:00 Document Registration [id number] 02/20/2020 09:15:00 Document Registration [id number] 02/13/2020 10:20:00 Document Registration [id number] 10/02/2019 16:40:00 Document Registration [id number] 06/18/2019 14:20:00 Document Registration [id number] 05/27/2019 08:20:00 Document Registration [id number] 05/23/2019 11:20:00 Document Registration [id number] 08/20/2018 09:25:00 Document Registration [id number] 04/02/2018 08:20:00 Document Registration [id number] 05/05/2020 07:57:00 23:59:59 CLS Outpatient ELIS VICTOR [facility] CARD CAD,HYPERLIPIDE BESSY,LEG SWELLING,LAURY [id number] 04/28/2020 07:02:00 12:45:00 DIS Outpatient SHAKA ERAZO FACC, KAMRYN CALVO CC DS [facility] CATH CAD,HYPERLI PIDEMIA,LEG SWELLING [id number] 04/27/2020 13:54:00 23:59:59 CLS Outpatient ELIS VICTOR [facility] CARD CAD,HYPERLIPIDE BESSY,LEG SWELLING,LAURY [id number] 04/23/2020 07:46:00 23:59:59 CLS Outpatient CARMEN HOYOS APRN [facility] RT COPD [id number] 03/13/2020 12:58:00 12:05:00 DIS Inpatient STEW FRANCISCO DO, V ia [facility] 4TH COPD EXACERBATION,REP F AILURE WITH HYPOXIA;SEPSIS; [id number] 07/04/2019 07:54:00 23:59:59 CLS Outpatient CARMEN HOYOS APRN [facility] RT COPD [id number] 06/26/2019 09:30:00 23:59:59 CLS Preadmit CARMEN HOYOS APRN [facility] RAD COPD,TOBACCO US E [id number] 06/24/2019 18:49:00 21:10:00 DIS Emergency ANDREYOMEGA WEIGHT GUESSER [facility] ER BACK PAIN [id number] 06/04/2019 09:31:00 23:59:59 CLS Outpatient JENNA LOVING MD [facility] RAD ABSCESS OF LEFT FOOT [id number] 05/29/2019 09:52:00 23:59:59 CLS Outpatient CARMEN HOYOS APRN [facility] RAD COPD [id number] 05/27/2019 16:04:00 16:58:00 DIS Emergency ANDREY OMEGA WEIGHT GUESSER [facility] ER L FOOT PAIN [id number] 04/16/2019 06:41:00 11:30:00 DIS Outpatient ELIS VICTOR WEIGHT GUESSER [facility] CATH CLAUDICATION [id number] 03/19/2019 07:13:00 10:50:00 DIS Outpatient SHAKA ERAZO FACC, KAMRYN CALVO CC DS [facility] CATH CAD,CAROTID ARTERIAL DISEASE [id number] 11/20/2018 07:55:00 10:16:00 DIS Outpatient LANG HUDSON DO [facility] ENDO SCREENING/HX POLYPS [id number] 11/16/2018 13:45:00 14:37:00 DIS Outpatient LANG HUDSON DO [facility] PREOP COLONOSCOPY [id number] 08/20/2018 11:34:00 018 23:59:59 CLS Outpatient ELIF MARIEE PHARMACY BENEFIT MANAGER [facility] RAD TORSTEN CUBA [id number] 07/24/2018 12:53:00 018 23:59:59 CLS Outpatient SHAKA ERAZO FACC, ALI NEGRITAP CC DS [facility] RAD I25.10 CAD [id number] 07/20/2018 10:53:00 018 23:59:59 CLS Outpatient SHAKA ERAZO FACElen, ALI FACP CC DS [facility] CARD I25.10 CAD [id number] 05/08/2018 09:27:00 018 12:30:00 DIS Outpatient HUDSON LANG MYRICK [facility] ENDO BRIGHT RED BLOOD PER RE CTUM/FAMILY HX COLON CA [id number] 05/03/2018 10:00:00 018 10:41:00 DIS Outpatient LANG HUDSON DO [facility] PREOP COLONOSCOPY [id number] 04/03/2018 08:15:00 018 23:59:59 CLS Preadmit CARMEN HOYOS APRN [facility] PUL J44.9 [id number] 01/18/2018 09:00:00 018 00:01:00 DIS Outpatient CARMEN HOYOS APRN [facility] PUL J44.9 [id number] 12/21/2017 07:06:00 018 10:15:00 DIS Emergency CHYNA RAE MD [facility] ER CONGESTION,RUNNY NOSE,A BD PAIN [id number] 12/05/2017 09:00:00 018 00:01:00 DIS Outpatient CARMEN HOYOS APRN [facility] J44.9 [id number] 12/10/2017 09:20:00 018 11:51:00 DIS Emergency ROMA STRICKLAND PHARMACY BENEFIT MANAGER [facility] ER FLU LIKE SYMPTOMS [id number] 08/26/2017 18:00:00 017 14:06:00 DIS Inpatient MORIS ERAZO, TAYLER Junior [facility] ICU ACUTE COPD EXACERBATION [id number] 08/20/2017 08:39:00 017 10:00:00 DIS Emergency WHITNEY THORNTON MD [facility] ER ABD PAIN, HOT/C OLD, LUNG PAIN [id number] 08/09/2017 08:55:00 017 11:47:00 DIS Outpatient LEYLA TORRES MD [facility] LEFT KNEE CHONDROMYLAS IA [id number] 08/07/2017 11:39:00 017 13:02:00 DIS Outpatient LEYLA TORRES MD [facility] PREOP LEFT KNEE SCOPE [id number] 06/21/2017 06:05:00 017 10:17:00 DIS Outpatient LEYLA TORRES MD [facility] TORN LATERAL MEDIAL ME NISCUS [id number] 06/15/2017 09:12:00 017 10:14:00 DIS Outpatient LEYLA TORRES MD [facility] PREOP TORN LATERAL MEDIAL ME NICUS [id number] 05/25/2017 07:18:00 017 23:59:59 CLS Outpatient SHAKA ERAZO FACC, KAMRYN CALVO CC DS [facility] CARD I25.10 [id number] 04/10/2017 10:40:00 017 23:59:59 CLS Outpatient RENETTA CARDOZA [facility] RAD M25.561 PAIN IN RIGHT KNEE [id number] 03/31/2017 12:10:00 017 12:53:00 DIS Emergency ROMA STRICKLAND APRN [facility] ER R KNEE PAIN [id number] 12/26/2016 15:18:00 017 23:59:59 CLS Outpatient CARMEN HOYOS APRN [facility] RT COPED,DYSPNEA,T OBACCO DEPENDENCE [id number] 10/16/2015 08:25:00 10:27:00 DIS Outpatient BRANNON HUDSON DOTT Alejandra [facility] SDC LOOP RECORDER [id number] 10/14/2015 05:34:00 23:59:59 CLS Outpatient HUDSON LANG [facility] PREOP LOOP RECORDER [id number] 12/01/2014 13:03:00 23:59:59 CLS Outpatient RENETTA CARDOZA [facility] RAD FAM HX OF BREAST CA, L EFT, AREOLAR ABCESS [id number] 06/06/2014 13:50:00 014 00:01:00 DIS Outpatient ELIS VICTOR [facility] CARD PALPITATIONS,SY NCOPE,CP [id number] 08/25/2014 09:48:00 23:59:59 CLS Outpatient RENETTA CARDOZA [facility] RT SEIZURE DISORDER, [id number] 07/22/2014 06:44:00 13:00:00 DIS Outpatient KAMRYN MATT MD, FACC, FACP CC DS [facility] CATH CP,SYNCOPE, CAD [id number] 06/17/2014 08:56:00 014 10:30:00 DIS Outpatient ELIS VICTOR [facility] CARD SYNCOPE,PALPITATIONS,CP,SOB [id number] 06/06/2014 10:00:00 014 12:37:00 DIS Emergency ROMA STRICKLAND APRN [facility] ER LEFT SIDE TINGLING/WEAK NESS [id number] 12/09/2013 12:05:00 23:59:59 CLS Outpatient KAMRYN MATT MD, FACC, FACP DS [facility] RAD CP,CAD,DYSP AYAKA [id number] 10/01/2013 08:09:00 013 15:21:00 DIS Outpatient KAMRYN MATT MD, FACC, FACP CC DS [facility] CATH FATIGUE,SOB ,ANGINA [id number] 09/30/2013 09:11:00 013 23:59:59 CLS Outpatient KAMRYN MATT MD, FACC, FACP CC DS [facility] CARD ANGINA,SOB, FATIGUE,HTN [id number] 07/28/2013 22:00:00 013 10:14:00 DIS Inpatient [id number] 07/08/2013 18:06:00 013 19:47:00 DIS Emergency EFRAIN TEJEDA MD [facility] ER HEADACHE [id number] 05/03/2013 21:12:00 07:20:00 DIS Outpatient RENETTA CARDOZA [facility] SLEEP SNORING,CHOKING/GASPIN G, COPD,MORNING HEADACHE, [id number] 06/01/2020 07:45:00 P EN Preadmit CARMEN HOYOS APRN [facility] RAD LUNG SCREENING [id number] 05/11/2020 15:00:[address] Inpatient STEW FRANCISCO DO [facility] [place] 4TH COPD W EXACERBATION W HYPOXI A [id number] 04/27/2020 15:31:00 Document Registration [id number] 04/27/2020 15:30:00 Document Registration [id number] 09/05/2014 10:00:00 Document Registration [id number] 08/31/2012 14:23:00 Document Registration [id number] 08/21/2012 20:32:00 Document Registration [id number] 02/09/2015 11:51:00 02/09/2015 23:59: 59 CLS Outpatient RENETTA CARDOZA APRN [id number] 11/24/2014 15:18:00 11/24/2014 23:59: 59 CLS Outpatient RENETTA CARDOZA APRN [id number] 11/19/2014 16:14:00 11/19/2014 23:59: 59 CLS Outpatient RENETTA CARDOZA APRN [id number] 10/09/2014 14:27:00 10/09/2014 23:59: 59 CLS Outpatient JENNA LOVING MD [id number] 10/08/2014 14:16:00 10/08/2014 23:59: 59 CLS Outpatient RENETTA CARDOZA APRN [id number] 08/26/2014 14:58:00 08/26/2014 23:59: 59 CLS Outpatient RENETTA CARDOZA APRN [id number] 08/16/2014 00:00:00 08/16/2014 23:59: 59 CLS Outpatient SHAKA ERAZO, KAMRYN [id number] 08/13/2014 09:07:00 08/13/2014 23:59: 59 CLS Outpatient SHAKA ERAZO, KAMRYN [id number] 07/30/2014 10:40:00 07/30/2014 23:59: 59 CLS Outpatient RENETTA CARDOZA APRN [id number] 07/16/2014 10:52:00 07/16/2014 23:59: 59 CLS Outpatient SHAKA ERAZO, KAMRYN [id number] 07/10/2014 00:00:00 07/10/2014 23:59: 59 CLS Outpatient SHAKA ERAZO, KAMRYN [id number] 06/09/2014 11:05:00 06/09/2014 23:59: 59 CLS Outpatient JENNA LOVING MD [id number] 06/04/2014 08:06:00 06/04/2014 23:59: 59 CLS Outpatient BRANDEN BORJA DO [id number] 05/22/2014 15:18:00 05/22/2014 23:59: 59 CLS Outpatient FRANK FINLEY APRN [id number] 05/06/2014 13:10:00 05/06/2014 23:59: 59 CLS Outpatient RENETTA CARDOZA APRN [id number] 04/21/2014 15:05:00 04/21/2014 23:59: 59 CLS Outpatient RENETTA CARDOZA APRN [id number] 04/14/2014 08:24:00 04/14/2014 23:59: 59 CLS Outpatient RENETTA CARDOZA APRN [id number] 03/25/2014 14:20:00 03/25/2014 23:59: 59 CLS Outpatient RENETTA CARDOZA APRN Kristi [id number] 03/05/2014 09:03:00 03/05/2014 23:59: 59 CLS Outpatient BRANDEN BORJA DO [id number] 12/04/2013 08:38:00 12/04/2013 23:59: 59 CLS Outpatient BRANDEN BORJA DO [id number] 12/03/2013 14:44:00 12/03/2013 23:59: 59 CLS Outpatient RENETTA CARDOZA APRN [id number] 10/21/2013 08:43:00 10/21/2013 23:59: 59 CLS Outpatient RENETTA CARDOZA APRN [id number] 09/18/2013 09:35:00 09/18/2013 23:59: 59 CLS Outpatient BRANDEN BORJA DO [id number] 07/31/2013 12:23:00 07/31/2013 23:59: 59 CLS Outpatient RENETTA CARDOZA APRN [id number] 01/23/2013 16:53:00 01/23/2013 23:59: 59 CLS Outpatient [id number] 01/03/2013 16:14:00 01/03/2013 23:59: 59 CLS Outpatient ERNESTINE ANDREW MD [id number] 11/07/2012 15:37:00 11/07/2012 23:59: 59 CLS Outpatient [id number] 10/31/2012 16:45:00 10/31/2012 23:59: 59 CLS Outpatient [id number] 10/02/2012 15:14:00 10/02/2012 23:59: 59 CLS Outpatient [id number] 08/22/2012 18:20:00 08/22/2012 23:59:5 9 CLS Outpatient RENETTA CARDOZA APRN [id number] 07/10/2013 18:24:00 Document Registration [id number] 06/06/2013 15:31:00 Document Registration [id number] 05/31/2013 00:00:00 Document Registration [id number] 04/10/2013 09:37:00 Document Registration [id number] 03/28/2013 11:59:00 Document Registration [id number] 03/20/2013 17:17:00 Document Registration
[2020-05-11] MEDS: RT-ALBUTEROL INHALER HFA (VENTOLIN HFA) 18 GM IH SCH ×2 (19:44→22:47)
[2020-05-11] MEDS ORDERED: HYDROcodone/APAP 5 MG/325 MG (LORTAB) TAB PO PRN (20:45)
[2020-05-11] MEDS ORDERED: ACETAMINOPHEN 500 MG TAB (TYLENOL) PO PRN (20:45)
[2020-05-11] MEDS ORDERED: ONDANSETRON 4 MG/2 ML (SDV) Z0FRAN IVP PRN (20:45)
[2020-05-11] MEDS ORDERED: BISACODYL 10 MG SUPP (DULCOLAX) PR PRN (20:45)
[2020-05-11] MEDS ORDERED: fentaNYL INJECTION 100 MCG/2 ML AMP IVP PRN (20:45)
[2020-05-11] MEDS ORDERED: LACTULOSE SYRUP 10GM/15ML (ENULOSE) 30ML UDC PO PRN (20:45)
[2020-05-11] MEDS ORDERED: diphenhydrAMINE 25 MG TAB (BENADRYL) PO PRN (20:45)
[2020-05-11] MEDS ORDERED: DOCUSATE SODIUM 100 MG (COLACE) CAP PO PRN (20:45)
[2020-05-11] MEDS ORDERED: ALPRAZolam 0.25 MG (XANAX) TAB PO PRN (20:45)
[2020-05-11] MEDS ORDERED: LOPERAMIDE 2 MG (IMODIUM) TABLET PO PRN (20:45)
[2020-05-11] MEDS ORDERED: ONDANSETRON 4 MG (ZOFRAN) ORAL DISSOLVE TAB PO PRN (20:45)
[2020-05-11] MEDS ORDERED: MELATONIN 3 MG TABLET PO PRN (20:45)
[2020-05-11] MEDS ORDERED: BENZONATATE 100 MG (TESSALON) CAPSULE PO PRN (20:45)
[2020-05-11] MEDS ORDERED: CALCIUM CARBONATE 500 MG (TUMS) TAB.CHEW PO PRN (20:45)
--- NOTE | 2020-05-11 21:56 | NUR ---
PT STATES THAT BEFORE HE WAS ADMITTED HE WAS GIVEN INSULIN IN THE ED AND WAS TOLD THAT HE WAS A DIABETIC. AT THIS TIME, PT IS IRATE AND VERBALLY YELLING AT NURSING STAFF, STATING THAT HE IS "DIABETIC AND NEEDS INSULIN" AND THREATENING TO WALK OUT AND LEAVE AMA. PT CALMED USING THERAPEUTIC COMMUNICATION. PT IS CURRENTLY TAKING STEROIDS. EDUCATION PROVIDED ON STEROID USE AND ITS EFFECTS ON BLOOD SUGAR LEVELS. ACCUCHECK OBTAINED AT THIS TIME PER PT REQUEST. BLOOD SUGAR IS [address] FRANCISCO NOTIFIED- NEW ORDERS RECEIVED.
[2020-05-11 21:58] VITALS: BP 160/72
[2020-05-11] MEDS: polyethylene glycoL POWDER 17 GM (MIRALAX) PACK PO SCH (22:00)
[2020-05-11] MEDS: PHENYTOIN 100 MG (DILANTIN) CAP PO SCH (22:00)
[2020-05-11] MEDS: ENOXAPARIN 40 MG/0.4 ML (LOVENOX) SYR SC SCH (22:00)
[2020-05-11] MEDS: SENNA W/DOCUSATE (SENOKOT S) TABLET PO SCH (22:01)
[2020-05-11] MEDS ORDERED: inSUlin ASPART (NovoLOG) 1 UNIT/0.01 ML (CHARGE PER UNIT) ONE (22:05)
[2020-05-11] MEDS: inSUlin ASPART (NovoLOG) 1 UNIT/0.01 ML (CHARGE PER UNIT) SC SCH (22:14)
[2020-05-11] MEDS: NON-FORMULARY MEDICATION 1 EA EA (Varenicline Tartrate (Chantix) 1 MG) PO SCH (23:33)
[2020-05-11 23:54] VITALS: BP 162/80
[2020-05-12] VITALS (7 sets, daily range): BP systolic 133–143; BP diastolic 63–78
[2020-05-12] MEDS: methylPREDNISolone 125 MG (Solu-MEDROL) VIAL IVP SCH ×3 (00:30→17:02)
[2020-05-12] MEDS: RT-ALBUTEROL INHALER HFA (VENTOLIN HFA) 18 GM IH SCH ×5 (02:50→21:32)
[2020-05-12] MEDS: LACTATED RINGERS 1,000 ML IV SCH (02:57)
--- NOTE | 2020-05-12 06:03 | History & Physical-Hospitalist ---
History of Present Illness HPI/Chief Complaint CC: SOB HPI: This is a 59yoWM who continues to smoke who is known to me from prior admissions who presents to the ER with SOB. COVID swab was taken that was negative so he is being transferred to room 419. Home oxygen will be evaluated because he went home without it, he did not make criteria and I think that has been a significant factor in his decompensation. Smoking cessation was counseled. Pt appears to have some coarse breath sounds still so will aggressively treat, do home O2 evaluation at noon, and likely will discharge on . Source: patient, RN/MD, old records Exam Limitations: no limitations Date Seen 05/12/20 Time Seen by a Provider: 09:30 Attending Physician Naya Hernandez DO [facility] [place] [place] Referring Physician Date of Admission May 11, 2020 at 15:00 Home Medications & Allergies Home Medications Reviewed patient Home Medication Reconciliation performed by pharmacy medication reconciliations cook chill technician and/or nursing. Patients Allergies have been reviewed. Allergies Allergies Coded Allergies diclofenac (Verified Allergy, Intermediate, SWELLING, 06/15/17) Past Ypwnznh-Xdyxsk-Prbzyb Hx Past Med/Social Hx: Reviewed Nursing Past Med/Soc Hx, Reviewed and Corrections made Patient Social History Marrital Status: Employed/Student: employed, unemployed Alcohol Use: Past History Recreational Drug Use: Yes (POT) Drug of Choice: MARIJUANA Smoking Status: Current Everyday Smoker Type Used: Cigarettes 2nd Hand Smoke Exposure: Yes Recent Foreign Travel: No Contact w/other who traveled: No Recent Hopitalizations: Yes Recent Infectious Disease Expo: No Immunizations Up To Date Tetanus Booster (TDap): Less than 5yrs Pediatric: Yes Date of Pneumonia Vaccine: Aug 10, 2015 Date of Influenza Vaccine: Aug 27, 2019 Seasonal Allergies Seasonal Allergies: No Past Medical History Surgeries: Orthopedic Respiratory: COPD, Sleep Apnea Currently Using CPAP: No Currently Using BIPAP: Yes Cardiac: Atrial Fibrillation, Chronic Edema/Swelling, Coronary Artery Disease, High Cholesterol, Hypertension, Irregular Heartbeat Neurological: Seizure Disorder Reproductive: No Sexually Transmitted Disease: No HIV/AIDS: No Gastrointestinal: Gastroesophageal Reflux, Polyps Musculoskeletal: Arthritis, Chronic Back Pain Loss of Vision: Bilateral Hearing Impairment: Denies Psychosocial: Anxiety History of Blood Disorders: No Adverse Reaction to Blood Juárez: No Family History Cardiovascular disease Colon cancer FH: cancer 19 FATHER 19 MOTHER No Pertinent Family Hx Review of Systems Constitutional: see HPI Respiratory: dyspnea on exertion, wheezing Physical Exam Physical Exam Vital Signs Vital Signs - First Documented 05/11/20 05/11/20 05/11/20 14:35 15:00 16:36 Temp 36.9 Pulse 106 Resp 20 B/P (MAP) 140/67 (91) Pulse Ox 96 O2 Delivery Nasal Cannula O2 Flow Rate 2.00 FiO2 28 Capillary Refill : Less Than 3 Seconds Height, Weight, BMI Height: 6'0" Weight: 258lbs. 0.0oz. 117.585279jg; 38.58 BMI Method:Stated General Appearance: No Apparent Distress, Chronically ill, Obese Eyes: Right Eye Normal Inspection, Right Eye PERRL HEENT: PERRL/EOMI, TMs Normal, Normal ENT Inspection, Pharynx Normal, Moist Mucous Membranes Neck: Full Range of Motion, Normal Inspection, Non Tender Respiratory: Chest Non Tender, No Accessory Muscle Use, No Respiratory Distress, Crackles, Rales, Wheezing Cardiovascular: Regular Rate, Rhythm, No Edema, No Gallop, No JVD, No Murmur, Normal Peripheral Pulses Gastrointestinal: Normal Bowel Sounds, No Organomegaly, No Pulsatile Mass, Non Tender, Soft Back: Normal Inspection, No CVA Tenderness, No Vertebral Tenderness Extremity: Normal Capillary Refill, Normal Inspection, Normal Range of Motion, Non Tender, No Calf Tenderness, No Pedal Edema Neurologic/Psychiatric: Alert, Oriented x3, No Motor/Sensory Deficits, Normal Mood/Affect Skin: Normal Color, Warm/Dry Lymphatic: No Adenopathy Results Results/Procedures Labs Laboratory Tests 05/11/20 15:05 05/12/20 06:11 Patient resulted labs reviewed. Assessment/Plan Admission Diagnosis Assessment: AECOPD Hypoxia COVID-19 negative PVD Smoker Plan: Monitor BP O2 evaluation IV steroids Admission Status: Inpatient Order (span 2 midnights) Reason for Inpatient Admission: aecopd Assessment and Plan Assessment: AECOPD Smoker HTN Plan: COVID swab negative IV steroids Home O2 evaluation Diagnosis/Problems Diagnosis/Problems (1) COPD exacerbation Status: Acute (2) Hypoxia Status: Acute (3) Leg swelling (4) PAD (peripheral artery disease) (5) SOB (shortness of breath) Clinical Quality Measures DVT/VTE Risk/Contraindication: Risk Factor Score Per Nursin RFS Level Per Nursing on Admit: 4+=Very High NAYA HERNANDEZ 14, 2020 06:03
[2020-05-12] MEDS: inSUlin ASPART (NovoLOG) 1 UNIT/0.01 ML (CHARGE PER UNIT) SC SCH ×4 (06:17→20:55)
[2020-05-12 06:21] LABS: BASOPHILS % (AUTO) 0 % (0-10); EOSINOPHILS % (AUTO) 0 % (0-10); HEMATOCRIT 47 % (40-54); HEMOGLOBIN 15.4 G/DL (13.3-17.7); LYMPHOCYTES # (AUTO) 0.5 X 10^3 (1.0-4.0); LYMPHOCYTES % (AUTO) 6 % (12-44); MEAN CORPUSCULAR HEMOGLOBIN 31 PG (25-34); MEAN CORPUSCULAR HGB CONC 33 G/DL (32-36); MEAN CORPUSCULAR VOLUME 94 FL (80-99); MONOCYTES # (AUTO) 0.2 X 10^3 (0.0-1.0); MONOCYTES % (AUTO) 3 % (0-12); NEUTROPHILS # (AUTO) 7.4 X 10^3 (1.8-7.8); NEUTROPHILS % (AUTO) 91 % (42-75); PLATELET COUNT 164 10^3/uL (130-400); RED CELL DISTRIBUTION WIDTH 15.2 % (10.0-14.5); WHITE BLOOD COUNT 8.1 10^3/uL (4.3-11.0)
[2020-05-12 06:41] LABS: ALBUMIN 3.6 GM/DL (3.2-4.5); CHLORIDE 96 MMOL/L (98-107); POTASSIUM 5.2 MMOL/L (3.6-5.0); SODIUM 134 MMOL/L (135-145)
[2020-05-12 06:42] LABS: CALCIUM 8.9 MG/DL (8.5-10.1)
[2020-05-12 06:43] LABS: GLUCOSE 245 MG/DL (70-105)
[2020-05-12 06:44] LABS: TOTAL PROTEIN 6.8 GM/DL (6.4-8.2)
[2020-05-12 06:45] LABS: BILIRUBIN,TOTAL 0.4 MG/DL (0.1-1.0); CARBON DIOXIDE 27 MMOL/L (21-32)
[2020-05-12 06:47] LABS: ALKALINE PHOSPHATASE 131 U/L (40-136); CREATININE SERUM 0.93 MG/DL (0.60-1.30); GFR ESTIMATED > 60
[2020-05-12 06:48] LABS: BUN/CREATININE RATIO 17
[2020-05-12 06:50] LABS: ALANINE AMINOTRANSFERASE 24 U/L (0-55)
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
[2020-05-12] MEDS: CLOPIDOGREL 75 MG (PLAVIX) TABLET PO SCH (08:32)
[2020-05-12] MEDS: PHENYTOIN 100 MG (DILANTIN) CAP PO SCH ×2 (08:32→20:38)
[2020-05-12] MEDS: ASPIRIN 81 MG CHEW (CHILDREN'S ASA) PO SCH (08:33)
[2020-05-12] MEDS: NON-FORMULARY MEDICATION 1 EA EA (Varenicline Tartrate (Chantix) 1 MG) PO SCH ×2 (08:33→20:38)
[2020-05-12] MEDS: polyethylene glycoL POWDER 17 GM (MIRALAX) PACK PO SCH ×2 (08:37→20:38)
[2020-05-12] MEDS: SENNA W/DOCUSATE (SENOKOT S) TABLET PO SCH ×2 (08:37→20:39)
[2020-05-12] MEDS: ADVAIR HFA 115/21 MCG INHALER 8 GM IH SCH (08:38)
--- NOTE | 2020-05-12 10:28 | NUR ---
TOOK OVER CARE OF THIS PT AT THIS TIME. RECEIVED REPORT FROM BORIS BROOKS.
[2020-05-12] MEDS ORDERED: CLOP75TA28 PO (10:36)
[2020-05-12] MEDS ORDERED: FURO80TA3 PO (10:41)
[2020-05-12] MEDS ORDERED: METF-397 PO (10:41)
[2020-05-12] MEDS ORDERED: POTA10CA43 PO (10:41)
--- NOTE | 2020-05-12 10:47 | NUR ---
SPOKE WITH THE PT (HE HAD HIS MED BOTTLES IN THE ROOM ) WENT THRU THE EXT MED HISTORY TO COMPLETE THE MED REC LEVAQUIN 750MG AND PREDNISONE WERE BOTH PICKED UP YESTERDAY HOWEVER THE PT DID NOT GET A CHANCE TO START THEM BEFORE HE CAME IN HERE. I DID LEAVE THEM ON THE MED REC FOR DISCHARGE PURPOSES. TRIAMCINOLONE, DOXEPIN, CHANTIX AND HCTZ ARE ALL LISTED ON THE EXT MED HISTORY BUT THE PT SAYS HE IS NOT TAKING. ATORVASTATIN 80MG WAS LISTED ON THE MED REC FROM HIS PREVIOUS VISIT (AND WAS CONTINUED) BUT HIS PHARMACY HAS NEVER FILLED IT (THEY DO HAVE A NEW ORDER [facility] 03-18-2020 BUT IT HAS NEVER BEEN FILLED) AND THE PT DENIED TAKING. FOR THAT REASON I TOOK IT OFF THE MED REC OTC MEDS: ASPIRIN 81
[2020-05-12] MEDS: cefTRIAXone 1,000 MG/SWFI 10 ML IV PUSH IV SCH ×2 (16:10)
--- NOTE | 2020-05-12 17:07 | NUR ---
PATIENT WALKED A MINUTE AND A HALF ON RA AND O2 SAT DROPPED TO 86% AND REMAINED LOW; RT PLACED PATIENT ON 2 L NC AND FINISHED WITH THE WALK. LOWEST O2 SAT ON RA 86% AND ON 2 L NC O2 SAT WAS BETWEEN 88-94%; HR RANGED FROM 87-107. PATIENTS O2 AT REST ON RA WAS 92% AND ON EXERTION WITH 2 L NC 88-94%
[2020-05-12] MEDS: ENOXAPARIN 40 MG/0.4 ML (LOVENOX) SYR SC SCH (20:38)
[2020-05-12] MEDS ORDERED: ADVAIR HFA 115/21 MCG INHALER 8 GM IH SCH (21:00)
[2020-05-13 00:54] VITALS: BP 140/76
[2020-05-13] MEDS: methylPREDNISolone 125 MG (Solu-MEDROL) VIAL IVP SCH (01:04)
[2020-05-13] MEDS: RT-ALBUTEROL INHALER HFA (VENTOLIN HFA) 18 GM IH SCH ×3 (02:27→10:40)
[2020-05-13] MEDS: inSUlin ASPART (NovoLOG) 1 UNIT/0.01 ML (CHARGE PER UNIT) SC SCH ×2 (06:45→12:22)
[2020-05-13 08:00] VITALS: BP 133/66
[2020-05-13] MEDS: PHENYTOIN 100 MG (DILANTIN) CAP PO SCH (09:37)
[2020-05-13] MEDS: polyethylene glycoL POWDER 17 GM (MIRALAX) PACK PO SCH (09:37)
[2020-05-13] MEDS: CLOPIDOGREL 75 MG (PLAVIX) TABLET PO SCH (09:38)
[2020-05-13] MEDS: ASPIRIN 81 MG CHEW (CHILDREN'S ASA) PO SCH (09:38)
[2020-05-13] MEDS: NON-FORMULARY MEDICATION 1 EA EA (Varenicline Tartrate (Chantix) 1 MG) PO SCH (09:38)
--- NOTE | 2020-05-13 09:40 | Pulmonary Progress Note ---
Subjective Time Seen by a Provider: 09:35 Subjective/Events-last exam Pt is feeling much better. Sepsis Event Evaluation Height, Weight, BMI Height: 6'0" Weight: 258lbs. 0.0oz. 117.055218ci; 38.58 BMI Method:Stated Exam Exam Vital Signs Date Time Temp Pulse Resp B/P (MAP) Pulse Ox O2 Delivery O2 Flow Rate FiO2 05/13/20 08:00 36.7 90 16 133/66 (88) 93 Room Air 05/13/20 08:00 93 Room Air 2.00 05/13/20 06:57 93 Nasal Cannula 2.00 05/13/20 06:57 93 Nasal Cannula 2.00 05/13/20 02:28 93 Room Air 05/13/20 00:54 36.9 69 18 140/76 (97) 96 NIV CPAP 05/12/20 21:36 91 Room Air 05/12/20 20:40 Room Air 05/12/20 20:00 36.6 81 18 133/63 (86) 93 Room Air 05/12/20 18:54 92 Room Air 05/12/20 16:59 87 94 1.00 92 05/12/20 16:00 36.5 87 20 143/65 (91) 92 Room Air 05/12/20 13:13 36.4 78 93 28 05/12/20 11:57 36.4 82 18 136/65 (88) 95 Nasal Cannula 2.00 05/12/20 10:28 93 Nasal Cannula 2.00 I & O 05/13/20 07:00 Intake Total 2880 ml Output Total 2275 ml Balance 605 ml Height & Weight Height: 6'0" Weight: 258lbs. 0.0oz. 117.132381gk; 38.58 BMI Method:Stated General Appearance: No Apparent Distress, Chronically ill, Obese HEENT: PERRL/EOMI, TMs Normal, Normal ENT Inspection, Pharynx Normal, Moist Mucous Membranes Neck: Full Range of Motion, Normal Inspection, Non Tender Respiratory: Chest Non Tender, No Accessory Muscle Use, No Respiratory Distress, Crackles, Rales, Wheezing Cardiovascular: Regular Rate, Rhythm, No Edema, No Gallop, No JVD, No Murmur, Normal Peripheral Pulses Capillary Refill: Greater Than 3 Seconds Gastrointestinal: normal bowel sounds, non tender Extremity: Normal Capillary Refill, Normal Inspection, Normal Range of Motion, Non Tender, No Calf Tenderness, No Pedal Edema Neurologic/Psychiatric: Alert, Oriented x3, No Motor/Sensory Deficits, Normal Mood/Affect Skin: Normal Color, Warm/Dry Lymphatic: No Adenopathy Results Lab Laboratory Tests 05/11/20 15:05 05/12/20 06:11 Assessment/Plan Assessment/Plan COPDAE - solumedrol-- change to prednisone taper -advair -CXR is negative and no leukocytosis or fever. -D/C Abx -DAMION Mello DO May 13, 2020 09:40
[2020-05-13] MEDS: SENNA W/DOCUSATE (SENOKOT S) TABLET PO SCH (09:42)
[2020-05-13] MEDS ORDERED: ATOR80TA76 PO (11:27)
[2020-05-13] MEDS ORDERED: GLYB2.5T4 PO (11:27)
[2020-05-13] MEDS ORDERED: PRED10TA22 PO (11:27)
--- NOTE | 2020-05-13 11:28 | Discharge Summary ---
Discharge Summary Hospital Course Was the Problem List Reviewed?: Yes Problems/Dx: (1) COPD exacerbation Status: Acute (2) Hypoxia Status: Acute (3) Leg swelling (4) PAD (peripheral artery disease) (5) SOB (shortness of breath) Hospital Course Date of Admission: May 11, 2020 at 15:00 Admission Diagnosis : Family Physician/Provider: Brett Monteiro Date of Discharge: 05/13/20 Discharge Diagnosis: AECOPD, O2 dependance new, smoker, CAD Hospital Course: Hospital Course: Pt had a short hospital course. He was admitted for exacerbation of COPD and hypoxia. Covid swab was negative. Cardiology and pulmonology were both consulted. Everything seemed to be in order. Pt responded to IV steroids and was transitioned to oral steroid taper dose and he was deemed stable for DC. Home oxygen was arranged at 2 liters continuous and social work was gracious enough to set that up and he will go home and all new medication was sent to [facility]. Labs and Pending Lab Test: Laboratory Tests 05/12/20 11:30: Glucometer 283H 05/12/20 16:15: Glucometer 383H 05/12/20 20:43: Glucometer 305H 05/13/20 05:21: Glucometer 265H 05/13/20 10:33: Glucometer 261H Microbiology 05/12/20 Gram Stain - Final, Resulted 05/12/20 Sputum Culture, Resulted Pending Home Meds Active Glyburide 2.5 Mg Tablet 2.5 Mg PO DAILY Prednisone 10 Mg Tab.ds.pk 10 Mg PO DAILY Take 6 tabs(60mg)daily,decrease by 1 tab(10MG)daily. Atorvastatin Calcium 80 Mg Tablet 80 Mg PO HS Reported Metformin HCl 500 Mg Tablet 500 Mg PO BID WITH MEALS Furosemide 80 Mg Tablet 80 Mg PO DAILY Potassium Chloride 10 Meq Capsule.er 10 Meq PO DAILY Clopidogrel (Clopidogrel Bisulfate) 75 Mg Tablet 75 Mg PO DAILY Prednisone 10 Mg Tab PO UD DIRECITONS ARE A TAPER DOSE: 5 TABS DAILY X 3 DAYS 4 TABS DAILY X 3 DAYS 3 TABS DAILY X 3 DAYS 2 TABS DAILY X 3 DAYS 1 TAB DAILY X 3 DAYS Tessalon Perles (Benzonatate) 100 Mg Capsule 100 Mg PO TID PRN Levofloxacin 750 Mg Tablet 750 Mg PO DAILY Ventolin Hfa (Albuterol Sulfate) 18 Gm Hfa.aer.ad 1 Puff INH Q4H PRN Aspirin 81 Mg Tab.chew 81 Mg PO DAILY Omeprazole 20 Mg Capsule.dr 20 Mg PO DAILY Phenytoin Sodium Extended 100 Mg Capsule 200 Mg PO BID TAKE 2 (100MG) TABS Assessment/Pt Instructions [facility] in 1 week Discharge Planning: <30 minutes discharge planning Discharge Instructions Discharge Diet: Cardiac Diet Activity as Tolerated: Yes Discharge Physical Examination Vital Signs Vital Signs Date Time Temp Pulse Resp B/P (MAP) Pulse Ox O2 Delivery O2 Flow Rate FiO2 05/13/20 08:00 36.7 90 16 133/66 (88) 93 Room Air 05/13/20 08:00 2.00 05/12/20 13:13 28 General Appearance: No Apparent Distress, WD/WN, Chronically ill Respiratory: Other (diminished breath sounds) Neurologic/Psychiatric: Alert, Oriented x3 Allergies: Coded Allergies: diclofenac (Verified Allergy, Intermediate, SWELLING, 06/15/17) Discharge Summary Date of Admission May 11, 2020 at 15:00 Date of Discharge Discharge Date: May 13, 2020 Admission Diagnosis Assessment: AECOPD Hypoxia COVID-19 negative PVD Smoker Plan: Monitor BP O2 evaluation IV steroids Discharge Diagnosis Assessment: AECOPD Smoker HTN Plan: COVID swab negative IV steroids Home O2 evaluation (1) COPD exacerbation Status: Acute (2) Hypoxia Status: Acute (3) Leg swelling (4) PAD (peripheral artery disease) (5) SOB (shortness of breath) Clinical Quality Measures DVT/VTE Risk/Contraindication: Risk Factor Score Per Nursin RFS Level Per Nursing on Admit: 4+=Very High STEW FRANCISCO DO May 13, 2020 11:28
--- NOTE | 2020-05-13 14:14 | Physician Query Clarification ---
"Physician Query-General Query to Physician: The medical record reflects the following clinical scenario: History/Risk factors: Current smoker, COPD, Frequent Admission for SOB Clinical Findings: SOB at rest, RR 20-22 consistently, Need for home 02 Treatment: Breathing RX, Supplemental 02, Question: What condition best reflects the above clinical scenario? Please document response in the Progress notes or Discharge Summary. 1. Chronic Respiratory Failure 2. SOB/Hypoxia (as currently documented) 3. Other , with explanation of the clinical findings 4. Clinically undetermined, no explanation for the clinical findings Please remember a lack of response to the above will prompt a phone page by CDI/coding staff In responding to this query, please exercise your independent professional judgment. The purpose of this communication is to more accurately reflect the complexity of your patients condition. The fact that a question is asked does not imply that any particular answer is desired or expected. Thank you for timely response to this clarification. Anastasiia Wiley, MSN, RN RN Specialist-Clinical Doc Improvement CD -Health Info Mgmt Operations [address] [facility] t: [phone] | f: [phone] If you are unable to reach me at my extension, I may be working from home. Please contact me at [phone] PHYSICIAN RESPONSE: Based on the clinical findings in the record, please respond to the query above on this document as an addendum. Physician Response: Physician Response 2 If you have questions please contact: Client Consultant: Ext: Thank you for your time and cooperation. Clinical Branch Associate/Client Consultant This is a permanent part of the medical record ANASTASIIA WILEY May 13, 2020 14:14 STEW FRANCISCO DO May 13, 2020 21:32"
[2020-05-14] MEDS ORDERED: predniSONE 10 MG TAB PO SCH (09:00)
== END 2020-05-13 15:00 | disposition home or self-care (01) | DRG 192 ==
LOC: EDUNIT# 14:25 → ER 14:26 → 4TH 15:00
PROVIDERS: ADMIT Internal Medicine; ATTEND Internal Medicine
DX: J44.1 Chronic obstructive pulmonary disease with (acute) exacerbation (principal); F17.210 Nicotine dependence, cigarettes, uncomplicated; Z20.828 Contact with and (suspected) exposure to other viral communicable diseases; E11.51 Type 2 diabetes mellitus with diabetic peripheral angiopathy without gangrene; R09.02 Hypoxemia; I25.10 Atherosclerotic heart disease of native coronary artery without angina pectoris; I10 Essential (primary) hypertension; E78.00 Pure hypercholesterolemia, unspecified; G40.909 Epilepsy, unspecified, not intractable, without status epilepticus; K21.9 Gastro-esophageal reflux disease without esophagitis; M54.9 Dorsalgia, unspecified; F41.9 Anxiety disorder, unspecified; Z95.828 Presence of other vascular implants and grafts; Z86.718 Personal history of other venous thrombosis and embolism
CPT/HCPCS: 36415; 71045; 80053; 82962; 83036; 83880; 85007; 85025; 85027; 85610; 87070; 87077; 87185; 87205; 87635; 94640; 94664; 94760; 94761

== ENCOUNTER → 2020-06-01 | Outpatient (CLI) | payer MEDICARE, MEDICAID ==
[~2020-06-01] MED LIST changes: +BENZ100C18 PO; +FURO80TA3 PO; +GLYB2.5T4 PO; +HYDR-3812 PO; -HYDR-83 PO; +LEVO750T39 PO; +PRD10T PO
--- NOTE | 2020-06-01 12:33 | Diagnostic Imaging Report ---
EXAMINATION: CT CHEST SCREENING WO. TECHNIQUE: Low-dose unenhanced CT of the chest was performed according to the screening protocol. Coronal MIP and sagittal MPR reformats are created. Automatic exposure controls were utilized to keep dose as low as reasonably achievable. INDICATION: 59-year-old current smoker with 49 pack year history of smoking. COMPARISON: CT chest from 05/29/2019. FINDINGS: Pulmonary findings: No endoluminal nodule within the trachea. No pulmonary mass or consolidation. Scattered areas of centrilobular emphysema are unchanged. No pulmonary nodules have developed that would be suspicious for clinically active lung cancer. Extrapulmonary findings: No pleural effusion or axillary lymphadenopathy. No mediastinal, discrete hilar, or juxtaphrenic lymphadenopathy. The heart is normal in size without pericardial effusion. Normal caliber thoracic aorta. Coronary artery calcifications are present. No calcified atherosclerotic plaques are present within the majority of the aorta. IMPRESSION: The baseline screening CT is negative for features of clinically active lung cancer. Lung-RADS category: 1 - Negative Recommendations: Continued annual screening with low-dose CT in 12 months. Dictated by: Dictated on workstation # [id number]
== END ==
LOC: RAD 07:45
PROVIDERS: ATTEND Nurse Practitioner Family
DX: Z12.2 Encounter for screening for malignant neoplasm of respiratory organs (principal); J44.9 Chronic obstructive pulmonary disease, unspecified; F17.210 Nicotine dependence, cigarettes, uncomplicated

== ENCOUNTER 2020-06-27 15:20 | Emergency (ER) | payer MEDICARE, MEDICAID ==
[~2020-06-27] VITALS: Ht 177.8 cm; Wt 117.7 kg
[2020-06-27] MEDS ORDERED: NS IV 1000 ML 1,000 ML IV ONE (16:48)
[2020-06-27 16:53] LABS: BASOPHILS % (AUTO) 1 % (0-10); CLARITY,URINE CLEAR; COLOR,URINE AMBER; EOSINOPHILS # (AUTO) 0.1 10^3/uL (0.0-0.3); EOSINOPHILS % (AUTO) 3 % (0-10); GLUCOSE, URINE (UA) TRACE (NEGATIVE); HEMATOCRIT 49 % (40-54); HEMOGLOBIN 16.2 G/DL (13.3-17.7); KETONES,URINE NEGATIVE (NEGATIVE); LEUKOCYTE ESTERASE ,URINE NEGATIVE (NEGATIVE); LYMPHOCYTES % (AUTO) 26 % (12-44); MEAN CORPUSCULAR HEMOGLOBIN 29 PG (25-34); MEAN CORPUSCULAR HGB CONC 33 G/DL (32-36); MEAN CORPUSCULAR VOLUME 88 FL (80-99); MEAN PLATELET VOLUME 10.4 FL (7.4-10.4); MONOCYTES # (AUTO) 0.4 X 10^3 (0.0-1.0); MONOCYTES % (AUTO) 10 % (0-12); NEUTROPHILS # (AUTO) 2.3 X 10^3 (1.8-7.8); NEUTROPHILS % (AUTO) 61 % (42-75); NITRITE,URINE NEGATIVE (NEGATIVE); PH,URINE 6.5 (5-9); PLATELET COUNT 214 10^3/uL (130-400); PROTEIN,URINE 1+ (NEGATIVE); RED CELL DISTRIBUTION WIDTH 16.8 % (10.0-14.5); WHITE BLOOD COUNT 3.8 10^3/uL (4.3-11.0)
[2020-06-27 16:56] LABS: ALBUMIN 3.1 GM/DL (3.2-4.5); CHLORIDE 98 MMOL/L (98-107); SODIUM 129 MMOL/L (135-145)
[2020-06-27 16:58] LABS: CALCIUM 8.8 MG/DL (8.5-10.1)
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
[2020-06-27 16:59] LABS: GLUCOSE 112 MG/DL (70-105); TOTAL PROTEIN 7.1 GM/DL (6.4-8.2)
[2020-06-27 17:00] LABS: CARBON DIOXIDE 22 MMOL/L (21-32)
[2020-06-27 17:01] LABS: BACTERIA,URINE TRACE /HPF; BILIRUBIN,URINE 3+ (NEGATIVE); SQUAMOUS EPITHELIAL CELL,UR RARE /HPF; WBC,URINE RARE /HPF
[2020-06-27 17:02] LABS: ALKALINE PHOSPHATASE 464 U/L (40-136); CREATININE SERUM 0.91 MG/DL (0.60-1.30); GFR ESTIMATED > 60
[2020-06-27 17:03] LABS: BUN/CREATININE RATIO 15
[2020-06-27 17:05] LABS: ALANINE AMINOTRANSFERASE 1212 U/L (0-55)
[2020-06-27 17:08] LABS: BILIRUBIN,TOTAL 11.5 MG/DL (0.1-1.0)
[2020-06-27] MEDS ORDERED: NS 100 ML (IVPB) BAG IV ONE (17:45)
[2020-06-27] MEDS ORDERED: CATHETER FLUSH 10 ML SYR IV PRN (17:45)
[2020-06-27] MEDS ORDERED: HOLD METFORMIN - RECEIVED CONTRAST 20 ML VIAL IV SCH (17:45)
[2020-06-27] MEDS ORDERED: IOHEXOL 350 MG/ML 100 ML (OMNIPAQUE 350) VIAL IV ONE (17:45)
--- NOTE | 2020-06-27 17:58 | Diagnostic Imaging Report ---
INDICATION: Eyes turning yellow. EXAMINATION: Single view of the chest was obtained. FINDINGS: The lungs are clear. No failure, effusion or pneumothorax. IMPRESSION: Negative. Dictated by: Dictated on workstation # [id number]
[2020-06-27 18:06] LABS: AMYLASE 74 U/L (25-125)
[2020-06-27 18:14] LABS: LIPASE 42 U/L (8-78)
--- NOTE | 2020-06-27 18:20 | Diagnostic Imaging Report ---
PROCEDURE: CT abdomen and pelvis with contrast. TECHNIQUE: Multiple contiguous axial images were obtained through the abdomen and pelvis after administration of intravenous contrast. Auto Exposure Controls were utilized during the CT exam to meet ALARA standards for radiation dose reduction. INDICATION: New diabetes icterus. FINDINGS: The liver is density is compatible with likely mild degree of fatty infiltration. There is minute left hepatic lobe low density subcentimeter foci, too small to be definitively characterized, felt likely cystic. No bile duct dilatation. The gallbladder is contracted. There is mild nonfocal splenomegaly. There is normal enhancement of the intrahepatic and extrahepatic portal vein, as well as the cava and hepatic veins. There is bilateral renal cortical cysts. There is no hydroureteronephrosis. The adrenals and pancreas are negative. There is no bowel obstruction or ileus. There is no appendicitis or diverticulitis. No ascites, abscess, hematoma or acute fluid collection. IMPRESSION: 1. No renal cyst with likely tiny subcentimeter hepatic cysts. Equivocal findings for mild hepatic steatosis with mild splenomegaly. 2. Otherwise unremarkable and no acute appearing abnormality found. Dictated by: Dictated on workstation # [id number]
[2020-06-27 18:43] LABS: INR 0.9 (0.8-1.4)
[2020-06-27 18:57] LABS: CREATINE KINASE 65 U/L (30-200)
[2020-06-27 19:08] LABS: AMMONIA 50 UMOL/L (11-32)
[2020-06-27 19:58] VITALS: BP 135/76
== END 2020-06-27 20:02 | disposition home or self-care (01) ==
LOC: EDUNIT# 15:20 → ER 15:22
DX: R74.0 Nonspecific elevation of levels of transaminase and lactic acid dehydrogenase [LDH] (principal); E80.6 Other disorders of bilirubin metabolism; K75.9 Inflammatory liver disease, unspecified; J44.9 Chronic obstructive pulmonary disease, unspecified; G40.909 Epilepsy, unspecified, not intractable, without status epilepticus; I48.91 Unspecified atrial fibrillation; I25.10 Atherosclerotic heart disease of native coronary artery without angina pectoris; E78.00 Pure hypercholesterolemia, unspecified; I10 Essential (primary) hypertension; K21.9 Gastro-esophageal reflux disease without esophagitis; Z99.81 Dependence on supplemental oxygen; Z88.8 Allergy status to other drugs, medicaments and biological substances; Z79.82 Long term (current) use of aspirin; Z79.02 Long term (current) use of antithrombotics/antiplatelets; Z79.84 Long term (current) use of oral hypoglycemic drugs; Z79.52 Long term (current) use of systemic steroids; Z77.22 Contact with and (suspected) exposure to environmental tobacco smoke (acute) (chronic); Z87.891 Personal history of nicotine dependence; Z82.49 Family history of ischemic heart disease and other diseases of the circulatory system; Z80.0 Family history of malignant neoplasm of digestive organs
CPT/HCPCS: 36415; 71045; 74177; 80053; 80074; 81000; 82140; 82150; 82550; 83690; 85025; 85610; 85730

== ENCOUNTER 2020-08-22 00:25 | Emergency (ER) | payer MEDICARE, MEDICAID ==
[~2020-08-22] VITALS: Ht 177 cm; Wt 114.0 kg
[~2020-08-22 00:25] MED LIST changes: +ACHD5005 PO; -HYDR-3812 PO
--- NOTE | 2020-08-22 01:00 | NUR ---
Pt here with cough and sob; states he is normally sob but it is worse than normal. Pt reports he wears 02 or cpap at night.
[2020-08-22] MEDS ORDERED: dexAMETHasone 6 MG TAB (DECADRON) PO SCH (01:15)
[2020-08-22] MEDS ORDERED: AZITHROMYCIN 250 MG TAB (ZITHROMAX) PO ONE (01:15)
[2020-08-22] MEDS ORDERED: AZIT500T PO (01:41)
[2020-08-22] MEDS ORDERED: DEXA6TAB6 PO (01:41)
[2020-08-22] MEDS ORDERED: D-ME473S11 PO (01:41)
[2020-08-22] MEDS ORDERED: BENZ100C18 PO (01:41)
--- NOTE | 2020-08-22 01:41 | ED Cough/URI ---
General Chief Complaint: Cough/Cold/Flu Symptoms Stated Complaint: COUGH Nursing Triage Note: Pt here with cough with onset tonight; states he feels sob with it. Denies fever or other new complaints. Sepsis Screen: No Definite Risk Source: patient History of Present Illness Date Seen by Provider: Aug 21, 2020 Time Seen by Provider: 00:36 Initial Comments PT ARRIVES VIA POV FROM HOME PT STATES HE STARTED COUGHING TONIGHT AROUND 1900 STATES HE FEELS SHORT OF BREATH AND HIS CHEST HURTS WHEN HE COUGHS, BUT IS NOT SHORT OF BREATH AND DOES NOT HAVE CHEST PAIN WHEN HE IS NOT COUGHING HAS HEADACHE ONLY WHEN HE COUGHS NO FEVER/SWEATS/CHILLS NO LOSS OF TASTE OR SMELL NO SORE THROAT HAS NASAL CONGESTION AND CLEAR RUNNY NOSE NO GI SYMPTOMS NO BODY ACHES HAS NOT TAKEN ANYTHING FOR SYMPTOMS PT HAS COPD AND HAS AN INHALER, BUT HAS NOT USED IT TONIGHT PT USES BI-PAP AT NIGHT, BUT DOES NOT OTHERWISE USE HOME OXYGEN PT CONTINUES TO SMOKE 1 PPD, AND SMOKES MARIJUANA. STATES HIS BROTHER HAS PNEUMONIA, BUT IS DOES NOT THINK HE HAS COVID-19. PCP: [facility], ZOYA CARDOZA Allergies and Home Medications Allergies Coded Allergies: diclofenac (Verified Allergy, Intermediate, SWELLING, 06/15/17) Home Medications Albuterol Sulfate 18 Gm Hfa.aer.ad, 1 PUFF INH Q4H PRN for SHORTNESS OF BREATH, (Reported) Aspirin 81 Mg Tab.chew, 81 MG PO DAILY, (Reported) Atorvastatin Calcium 80 Mg Tablet, 80 MG PO HS Prescribed by: STEW FRANCISCO on 05/13/201126 Azithromycin 500 Mg Tablet, 500 MG PO DAILY Prescribed by: LAURA BARBER on 08/22/20140 Benzonatate 100 Mg Capsule, 100 MG PO TID PRN for COUGH, (Reported) Benzonatate 100 Mg Capsule, 200 MG PO TID Prescribed by: LAURA BARBER on 08/22/20140 Clopidogrel Bisulfate 75 Mg Tablet, 75 MG PO DAILY, (Reported) Dexamethasone 6 Mg Tablet, 6 MG PO DAILY Prescribed by: LAURA BARBER on 08/22/20140 Furosemide 80 Mg Tablet, 80 MG PO DAILY, (Reported) Glyburide 2.5 Mg Tablet, 2.5 MG PO DAILY Prescribed by: STEW FRANCISCO on 7/15/20 1127 Metformin HCl 500 Mg Tablet, 500 MG PO BID WITH MEALS, (Reported) Omeprazole 20 Mg Capsule.dr, 20 MG PO DAILY, (Reported) Phenytoin Sodium Extended 100 Mg Capsule, 200 MG PO BID, (Reported) TAKE 2 (100MG) TABS Potassium Chloride 10 Meq Capsule.er, 10 MEQ PO DAILY, (Reported) Prednisone 10 Mg Tab.ds.pk, 10 MG PO DAILY Take 6 tabs(60mg)daily,decrease by 1 tab(10MG)daily. Prescribed by: STEW FRANCISCO on 05/13/20 112 Promethazine/Dextromethorphan 473 Ml Syrup, 5 ML PO Q4H Prescribed by: LAURA BARBER on 08/22/20 0141 Patient Home Medication List Home Medication List Reviewed: Yes Review of Systems Review of Systems Constitutional: no symptoms reported; No chills, No diaphoresis, No dizziness, No fever EENTM: no symptoms reported Respiratory: see HPI, cough Cardiovascular: see HPI Gastrointestinal: no symptoms reported Genitourinary: no symptoms reported Musculoskeletal: no symptoms reported Skin: no symptoms reported Psychiatric/Neurological: See HPI Hematologic/Lymphatic: No Symptoms Reported Immunological/Allergic: no symptoms reported Past Glkqvpi-Clmqyo-Curewh Hx Past Med/Social Hx: Reviewed and Corrections made Patient Social History Alcohol Use: Denies Use Recreational Drug Use: Yes (THC DAILY USE) Drug of Choice: DAILY MARIJUANA USE Smoking Status: Current Everyday Smoker (2 PPD) Type Used: Cigarettes 2nd Hand Smoke Exposure: Yes Recent Foreign Travel: No Contact w/Someone Who Travel: No Recent Infectious Disease Expo: No Recent Hopitalizations: No Immunizations Up To Date Tetanus Booster (TDap): Less than 5yrs PED Vaccines UTD: Yes Date of Pneumonia Vaccine: Aug 10, 2015 Date of Influenza Vaccine: Aug 27, 2019 Seasonal Allergies Seasonal Allergies: No Past Medical History Surgeries: Yes (Loop recorder-removed, Brain surgery, Left foot, Stents to emmie legs, ) Cardiac, Neurological, Orthopedic, Vascular Surgery Respiratory: Yes (COPD, SLEEP APNEA, BIPAP) Sleep Apnea, COPD Currently Using CPAP: No Currently Using BIPAP: Yes Cardiac: Yes (BILATERAL SUPERFICAL FEMORAL ARTERY STENTS;CAROTID & VERTEBRAL ARTERY DZ) Atrial Fibrillation, Chronic Edema/Swelling, Coronary Artery Disease, High Cholesterol, Hypertension, Irregular Heartbeat, Peripheral Vascular Neurological: Yes (CLAW HAMMER TO HEAD-- INJURY 1982) Seizure Disorder, Traumatic Brain Injury Reproductive Disorders: No Sexually Transmitted Disease: No HIV/AIDS: No Genitourinary: No Gastrointestinal: Yes (HEPATITIS A 06/27/20--RECOVERED) Gastroesophageal Reflux, Hepatitis, Polyps Musculoskeletal: Yes (BILATERAL CARPAL TUNNEL RELEASE) Arthritis, Chronic Back Pain Endocrine: Yes (BORDERLINE DIABETES, NOT TAKING MEDS) HEENT: Yes Loss of Vision: Bilateral Hearing Impairment: Denies Cancer: No Psychosocial: Yes (RELATED TO BREATHING ISSUES-RACING HELMET/SWIMMING) Anxiety Integumentary: Yes (DRY PATCHES ON ELBOW AND HANDS, scaly rash on feet) Blood Disorders: No Adverse Reaction/Blood Tranf: No Family Medical History Cardiovascular disease Colon cancer FH: cancer 19 FATHER 19 MOTHER No Pertinent Family Hx PAST SURGICAL HISTORY: -LOOP RECORDER PLACED AND REMOVED -RIGHT SUPERFICIAL FEMORAL ARTERY STENT 03/2019 -LEFT SUPERFICIAL FEMORALY ARTERY STENT -BILATERAL CARPAL TUNNEL RELEASE -SURGERY DUE TO HEAD TRAUMA--"CLAW HAMMER" TO HEAD 1982 -LEFT TOE SURGERY -CARDIAC CATH 2017--MODERATE DISEASE, NO INTERVENTION ADDITIONAL PMH: -EXTENSIVE ASVD WITH CORONARY ARTERY DISEASE ( NO INTERVENTION), CAROTID ARTERY DISEASE, AND VERTEBRAL ARTERY DISEASE, WITH LEFT VERTEBRAL ARTERY WITH SEVERE STENOSIS, HAD HAS HAD BILATERAL LOWER EXTREMITY STENTS. Physical Exam Vital Signs - First Documented 08/22/20 00:46 Temp 37.0 Pulse 95 Resp 20 B/P (MAP) 145/68 (93) Pulse Ox 95 O2 Delivery Room Air Capillary Refill : Less Than 3 Seconds Height: 6'0" Weight: 258lbs. 0.0oz. 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, no motor/sensory deficits, alert, normal mood/affect, oriented x 3 Skin: normal color, warm/dry Progress/Results/Core Measures Suspected Sepsis Recent Fever Within 48 Hours: No Infection Criteria Present: Suspected New Infection New/Unexplained Altered Menta: No Sepsis Screen: No Definite Risk SIRS Temperature: Pulse: 95 Respiratory Rate: 20 Blood Pressure 145 /68 Mean: 93 Results/Orders Lab Results Laboratory Tests Test 08/22/20 00:41 08/22/20 01:15 Range/Units Coronavirus 2019 ([facility]) Negative Negative My Orders Orders - LAURA BARBER DO Covid 19 Inhouse Test (08/22/20 00:36) Chest 1 View, Ap/Pa Only (08/22/20 00:36) Coronavirus Sars-Cov-2 So 2018 (08/22/20 01:01) Azithromycin Tablet (Zithromax Tablet) (08/22/20 01:15) Dexamethasone Tablet (Decadron Tablet) (08/22/20 01:15) Benzonatate Capsule (Tessalon Perles) (08/22/20 01:45) Promethazine/ Codeine Syrup (Phenergan W (08/22/20 01:45) Medications Given in ED Current Medications Medications Dose Ordered Sig/Angella Route Start Time Stop Time Status Last Admin Dose Admin Azithromycin 500 mg ONCE ONCE PO 08/22/20 01:15 08/22/20 01:16 DC 08/22/20 01:44 500 MG Promethazine HCl/ Codeine 5 ml ONCE ONCE PO 08/22/20 01:45 08/22/20 01:46 DC 08/22/20 01:49 5 ML Vital Signs/I&O 08/22/20 08/22/20 00:46 01:55 Temp 37.0 Pulse 95 92 Resp 20 18 B/P (MAP) 145/68 (93) 147/73 Pulse Ox 95 92 O2 Delivery Room Air Room Air Capillary Refill : Less Than 3 Seconds Blood Pressure Mean: 93 Progress Note : Progress Note PT PLACED IN ISOLATION ROOM AND PPE WORN AT ALL TIMES COVID-19 TESTING PERFORMED RAPID COVID TEST IS NEGATIVE, PCR TEST SENT VITALS STABLE, O2 SATS IN MID 90'S NO FEVER NO DYSPNEA Diagnostic Imaging Comments CXR--NO ACUTE PROCESS, PENDING RADIOLOGIST REVIEW Reviewed: Reviewed by Me Departure Impression Primary Impression: Person under investigation for COVID-19 Additional Impression: COPD (chronic obstructive pulmonary disease) Disposition: HOME, SELF-CARE Condition: Stable Departure-Patient Inst. Referrals: [facility] (PCP) Primary Care Physician RENETTA CARDOZA (Family) Primary Care Physician Patient Instructions: Chronic Obstructive Pulmonary Disease (COPD) (DC), Coronavirus Disease 2019 (COVID-19) (DC) Add. Discharge Instructions: USE YOUR INHALERS PRESCRIBED TYLENOL AND MOTRIN NEEDED FOR PAIN OR FEVER LOTS OF FLUIDS FOLLOW UP WITH [facility] IN 4-5 DAYS IF NO BETTER, RETURN TO ER IF WORSE All discharge instructions reviewed with patient and/or family. Voiced understanding. Scripts Promethazine/Dextromethorphan (Promethazine-Dm Syrup) 473 Ml Syrup 5 ML PO Q4H for Cough, #1 UNIT Prov: LAURA BARBER DO 08/22/20 Benzonatate (TESSALON PERLES) 100 Mg Capsule 200 MG PO TID, #50 CAP Prov: VAUGHN BARBERA K DO 08/22/20 Dexamethasone (Decadron) 6 Mg Tablet 6 MG PO DAILY, #10 TAB Prov: LAURA BARBER K DO 08/22/20 Azithromycin (Zithromax) 500 Mg Tablet 500 MG PO DAILY for 5 Days, #5 TAB Prov: SUNILVAUGHNA K DO 08/22/20 LAURA BARBER DO Aug 22, 2020 01:41
[2020-08-22] MEDS ORDERED: PROMETHAZINE/ CODEINE SYRUP 5 ML UDC PO ONE (01:45)
[2020-08-22] MEDS ORDERED: BENZONATATE 100 MG (TESSALON) CAPSULE PO SCH (01:45)
[2020-08-22 01:55] VITALS: BP 147/73
--- NOTE | 2020-08-22 01:59 | NUR ---
Pt provided d/c education. Pt verbalized an udnerstanding and ambulated from ER without incident.
--- NOTE | 2020-08-22 07:16 | Diagnostic Imaging Report ---
PATIENT HISTORY: cough, exposed to COVID. TECHNIQUE: Single frontal view of the chest. COMPARISON: 06/27/2020 FINDINGS: The lung volumes are normal. No focal consolidation is seen. No large pleural effusion or pneumothorax is seen. The cardiomediastinal silhouette is normal in size and contour. No acute osseous abnormality is seen. IMPRESSION: No acute pulmonary abnormality seen. Report was faxed to [facility] by tiki at 7:14am. Dictated by: Dictated on workstation # [id number]
== END 2020-08-22 01:59 | disposition home or self-care (01) ==
LOC: EDUNIT# 00:25 → ER 00:27
DX: J44.9 Chronic obstructive pulmonary disease, unspecified (principal); E78.00 Pure hypercholesterolemia, unspecified; I10 Essential (primary) hypertension; K21.9 Gastro-esophageal reflux disease without esophagitis; E11.9 Type 2 diabetes mellitus without complications; G40.909 Epilepsy, unspecified, not intractable, without status epilepticus; Z20.828 Contact with and (suspected) exposure to other viral communicable diseases; F17.210 Nicotine dependence, cigarettes, uncomplicated; Z88.6 Allergy status to analgesic agent; Z82.49 Family history of ischemic heart disease and other diseases of the circulatory system; Z80.0 Family history of malignant neoplasm of digestive organs; Z87.820 Personal history of traumatic brain injury; Z79.84 Long term (current) use of oral hypoglycemic drugs; Z79.82 Long term (current) use of aspirin; Z79.52 Long term (current) use of systemic steroids
CPT/HCPCS: 71045; 99282; U0002; 87635

== ENCOUNTER 2020-10-13 08:00 | Day surgery (SDC) | payer MEDICARE, MEDICAID ==
[2020-10-13] VITALS (9 sets, daily range): BP systolic 117–160; BP diastolic 54–79
[~2020-10-13] VITALS: Ht 178 cm; Wt 110.0 kg
[2020-10-13 07:33] LABS: MEAN PLATELET VOLUME 9.3 fL (9.0-12.2); WHITE BLOOD COUNT 4.6 10^3/uL (4.3-11.0)
[2020-10-13 07:48] LABS: PROTHROMBIN TIME PATIENT 13.3 SEC (12.2-14.7)
[2020-10-13 07:55] LABS: ALANINE AMINOTRANSFERASE 242 U/L (0-55); ALBUMIN 3.6 GM/DL (3.2-4.5); ALKALINE PHOSPHATASE 227 U/L (40-136); BILIRUBIN,TOTAL 0.5 MG/DL (0.1-1.0); BUN/CREATININE RATIO 10; CALCIUM 9.1 MG/DL (8.5-10.1); CARBON DIOXIDE 29 MMOL/L (21-32); CHLORIDE 95 MMOL/L (98-107); CHOLESTEROL 158 MG/DL (< 200); CREATININE SERUM 1.15 MG/DL (0.60-1.30); GFR ESTIMATED > 60; GLUCOSE 339 MG/DL (70-105); HDL CHOLESTEROL 30 MG/DL (40-60); POTASSIUM 4.1 MMOL/L (3.6-5.0); SODIUM 135 MMOL/L (135-145); TOTAL PROTEIN 9.5 GM/DL (6.4-8.2); TRIGLYCERIDES 394 MG/DL (<150); VLDL CHOLESTEROL 79 MG/DL (5-40)
[~2020-10-13 08:00] MED LIST changes: +AZIT500T PO; +D-ME473S11 PO; +DEXA6TAB6 PO; +HEParin (CATH LAB) 0 ML IV ONE; +HEParin (CATH LAB) 2,000 ML IV ONE; +LIDOCAINE 1% INJ 20 ML 20 ML VIAL ONE; +MONT10TA97 PO; +NS IV 1000 ML 0 ML ONE; +NS IV 1000 ML 1,000 ML IV SCH; +NS IV 1000 ML 1,000 ML ONE; +OMEP20TA7 PO
[2020-10-13] MEDS ORDERED: fentaNYL INJECTION 100 MCG/2 ML AMP ONE (08:36)
[2020-10-13] MEDS ORDERED: MIDAZOLAM 5 MG/5 ML (VERSED) VIAL ONE (08:36)
--- NOTE | 2020-10-13 09:22 | Cardiac Procedure Note-CS/ASA ---
Pre-Procedure Note Pre-Op Procedure Note H&P Reviewed The H&P was reviewed, patient examined and no changes noted. Date H&P Reviewed: Oct 13, 2020 Time H&P Reviewed: 08:45 Conscious Sedation Pre-Proced Time 08:45 ASA Score 3 For ASA 3 and 4: Consider anesthesia and medical clearance. Also, for patients with a history of failed moderate sedation consider anesthesia. Airway Lungs Heart ASA score ASA 1: a normal healthy patient ASA 2: a patient with a mild systemic disease (mid diabetes, controlled hypertension, obesity ASA 3: a patient with a severe systemic disease that limits activity (angina, COPD, prior Myocardial infarction) ASA 4: a patient with an incapacitating disease that is a constant threat to life (CHF, renal failure) ASA 5: a moribund patient not expected to survive 24 hrs. (ruptured aneurysm) ASA 6: a declared brain- patient whose organs are being harvested. For emergent operations, add the letter E after the classification Mallampati Classification Grade 2 Sedation Plan Analgesia, Amnesia, Plan communicated to team members, Discussed options with patient/fam, Discussed risks with patient/fam The patient is an appropriate candidate to undergo the planned procedure, sedation, and anesthesia. The patient immediately re-assessed prior to indication. KAMRYN MATT MD FACP FAC CCDS Oct 13, 2020 09:22
[2020-10-13] MEDS ORDERED: GLIP-30 PO (09:25)
--- NOTE | 2020-10-13 09:26 | Discharge Inst-Post CATH ---
Discharge Inst-CATH/EP Post Cardiac Cath/EP D/C Inst Follow Up/Plan 1800 kCal diet F/u with pcp for management of diabetes tomorrow F/u with Dr Maradiaga in 2 weeks ACTIVITY * Go Home directly and rest. * Limit activity of the leg (or wrist if it was used) for 7 days including aerobics, swimming, jogging, bicycling, etc. * Restrict stair-climbing for 7 days if possible, if not, climb up with your non-cath leg, then bring together on the same step. * Avoid lifting, pushing, pulling or excessive movement of the affected extremity for 7 days. * Customary sexual activity may be resumed after 2 days-use caution not to use a position that strains or causes pain to the affected extremity. * No driving for 24 hours. * NO SMOKING. * Avoid straining for bowel movements for 7 days. * Gentle walking on level ground is allowed. * Returning to work will depend on the type of procedure and the results. Your doctor will discuss this with you. CALL YOUR DOCTOR FOR ANY OF THE FOLLOWING: *If bleeding from the puncture site occurs- Apply gentle pressure to site with clean cloth and call your doctor or EMS. * If a knot or lump forms under the skin, increases in size, or causes pain. * If bruising appears to be worsening or moving further down your leg instead of disappearing. * Temperature above 101 F. CARE OF YOUR GROIN INCISION; * Bruising or purple discoloration of the skin near the puncture site is common. * You may shower only, no bathtub bathing for 5 days. Be careful to avoid slipping as your leg may feel stiff. * If a closure device was used on your femoral artery, please see the attached guide regarding care of the device and your leg. * Leave dressing on FOR 24 hours. CARE OF YOUR WRIST INCISION; * Bruising or purple discoloration of the skin near the puncture site is common. * You may shower. * DO NOT submerge wrist. * Leave dressing on FOR 24 hours. KAMRYN MARADIAGA MD FACP FAC CCDS Oct 13, 2020 09:26
--- NOTE | 2020-10-13 09:26 | Discharge Inst-Cardiology ---
Discharge Inst-Cardiac Discharge Medications New Medications: Glipizide (Glipizide Xl) 5 Mg Tab.er.24 5 MG PO DAILY, #30 TAB 0 Refills Continued Medications: Albuterol Sulfate (Ventolin Hfa) 18 Gm Hfa.aer.ad 1 PUFF INH Q4H PRN for SHORTNESS OF BREATH Aspirin (Aspirin) 81 Mg Tab.chew 81 MG PO DAILY, TAB Clopidogrel Bisulfate (Clopidogrel) 75 Mg Tablet 75 MG PO DAILY, TAB Fluticasone/Salmeterol (Advair 250-50 Diskus) 1 Each Blst.w.dev 1 EACH IH BID Montelukast Sodium (Montelukast Sodium) 10 Mg Tablet 10 MG PO DAILY, TAB Omeprazole (Omeprazole) 20 Mg Tablet.dr 20 MG PO DAILY, TAB Phenytoin Sodium Extended (Phenytoin Sodium Extended) 100 Mg Capsule 200 MG PO BID, CAP TAKE 2 (100MG) TABS Patient Instructions Patient Instructions: 1800 kCal diet F/u with pcp for management of diabetes tomorrow F/u with Dr Maradiaga in 2 weeks KAMRYN MARADIAGA MD FACP FAC CCDS Oct 13, 2020 09:26
[2020-10-13] MEDS ORDERED: PATIENT MAY USE OWN MEDS, ALL PO SCH (09:30)
[2020-10-13] MEDS ORDERED: NS IV 1000 ML 1,000 ML IV SCH (09:30)
--- NOTE | 2020-10-13 11:40 | NUR ---
AMBULATED IN HALLS WITH RN WITH STANDBY ASSIST. GAIT STEADY. DRESSING REMAINS D/I. NO BLEEDING OR HEMATOMA NOTED.
--- NOTE | 2020-10-13 11:57 | NUR ---
DRESSING REMAINS CLEAN AND DRY. NO HEMATOMA NOTED. TAKING PO WITHOUT DIFF.
--- NOTE | 2020-10-13 13:02 | OPERATIVE REPORT ---
DATE OF SERVICE: 10/13/2020 PERIPHERAL ANGIOGRAPHY REPORT The patient is a 59-year-old man who is known to have bilateral peripheral arterial disease involving the lower limbs Lately, he has had leg discomfort with walking and has noted some discoloration of the leg. Recurrent claudication was suspected. Peripheral angiography was carried out today after having obtained an informed consent. DESCRIPTION OF PROCEDURE: He was brought to the cardiac catheterization laboratory in a fasting state. The right groin was prepared and draped in usual sterile fashion. Lidocaine 1% was used for local anesthesia. Modified Seldinger technique used to advance a 5-Norwegian sheath in right femoral artery. A 5-Norwegian pigtail catheter was placed at the level of L1 and abdominal aortic angiography was performed. Pigtail was pulled back to just above the level of the aortoiliac bifurcation and bilateral leg artery angiography was performed with runoff down to the level of the ankles. The diagnostic catheter was removed. Angiography of the right femoral artery was carried out through the sheath. Mynx was used to achieve hemostasis. He tolerated the procedure well. ABDOMINAL AORTIC ANGIOGRAPHY: Abdominal aortic angiography did not indicate any significant abdominal aortic aneurysm, dissection or stenosis. Renal arteries are identified and do not exhibit significant disease. Aortoiliac bifurcation shows calcification, but no significant stenosis. BILATERAL LEG ARTERY ANGIOGRAPHY: The iliac arteries are intact on both sides and do not exhibit significant disease. The common femoral arteries are intact on both sides, do not exhibit significant disease. Superficial femoral arteries exhibit up to 50% stenosis on both sides. The stents are patent in the superficial femoral artery. The deep femoral arteries show moderate disease on both sides. The popliteal arteries and the trifurcation arteries on both sides are intact and do not exhibit significant disease. There is a 3-vessel runoff on both sides. CONCLUSIONS: Mild to moderate bilateral peripheral arterial disease consisting of up to 50% stenosis in both superficial femoral arteries. The left superficial femoral artery has a patent stent, which is known to be Absolute Pro 6.0 x 40 mm. The right superficial femoral artery has a patent stent, which is known to be Innova 7.0 x 60 mm stent. DISCUSSION AND RECOMMENDATIONS: Based on results of the study, it appears appropriate to continue a conservative approach. Antiplatelet therapy is being continued. He has been advised to quit smoking. He is not treating his diabetes adequately. He had, apparently, quit taking his diabetic medications. We have put him on glipizide 5 mg a day today. I have advised him to follow up with his primary care physician tomorrow to have his diabetes medications were adjusted. He states that he will comply. Cardiovascular outpatient followup is also advised. Job ID: [id number] DocumentID: [id number] Dictated Date: 10/13/2020 09:37:44 Pharmacogeneticist Date: 10/13/2020 13:02:28 Dictated By: KAMRYN MATT MD, MA, FACP, FACC,
== END 2020-10-13 12:06 | disposition home or self-care (01) ==
LOC: CATH 08:00
PROVIDERS: ATTEND Internal Medicine Cardiovascular Disease
DX: I70.213 Atherosclerosis of native arteries of extremities with intermittent claudication, bilateral legs (principal); I65.23 Occlusion and stenosis of bilateral carotid arteries; G47.33 Obstructive sleep apnea (adult) (pediatric); I10 Essential (primary) hypertension; J44.9 Chronic obstructive pulmonary disease, unspecified; N52.9 Male erectile dysfunction, unspecified; E78.5 Hyperlipidemia, unspecified; I25.10 Atherosclerotic heart disease of native coronary artery without angina pectoris; J96.10 Chronic respiratory failure, unspecified whether with hypoxia or hypercapnia; E66.9 Obesity, unspecified; Z68.34 Body mass index [BMI] 34.0-34.9, adult; F17.210 Nicotine dependence, cigarettes, uncomplicated; Z79.82 Long term (current) use of aspirin; Z79.51 Long term (current) use of inhaled steroids; Z79.899 Other long term (current) drug therapy; Z88.5 Allergy status to narcotic agent; Z83.3 Family history of diabetes mellitus; Z80.9 Family history of malignant neoplasm, unspecified
CPT/HCPCS: 75625; 75716; 80053; 80061; 85027; 85610; 85730; 87081; C1760; C1894; 36415

== ENCOUNTER 2020-10-18 20:28 | Emergency (ER) | payer MEDICARE, MEDICAID ==
[~2020-10-18] VITALS: Ht 177.8 cm; Wt 110.5 kg
[~2020-10-18 20:28] MED LIST changes: +GLIP-30 PO; -HEParin (CATH LAB) 0 ML IV ONE; -HEParin (CATH LAB) 2,000 ML IV ONE; -LIDOCAINE 1% INJ 20 ML 20 ML VIAL ONE; -NS IV 1000 ML 0 ML ONE; -NS IV 1000 ML 1,000 ML IV SCH; -NS IV 1000 ML 1,000 ML ONE
--- NOTE | 2020-10-18 21:29 | ED GU-Male ---
General Chief Complaint: Male Reproductive Stated Complaint: R TESTICLE PAIN History of Present Illness Date Seen by Provider: Oct 18, 2020 Time Seen by Provider: 20:35 Initial Comments 59 year old male presents for right testicular pain that began 3 hours ago. Had angiography on 10/13/[address] Maradiaga, using right femoral site. No swelling, bleeding, or tenderness to right groin; resolving ecchymosis. He has chronic swelling, bilat LEs, no increase in Right LE. Denies pain with urination, no history of previous health problems related to his testicles. Patient is on Plavix for peripheral vascular disease. Timing/Duration: this evening Severity/Quality: moderate Location: scrotal (right) Radiation: none Prior Genitourinary Problems: none Associated Symptoms: denies symptoms; No urinary frequency Allergies and Home Medications Allergies Coded Allergies: diclofenac (Verified Allergy, Intermediate, SWELLING, 06/15/17) Home Medications Albuterol Sulfate 18 Gm Hfa.aer.ad, 1 PUFF INH Q4H PRN for SHORTNESS OF BREATH, (Reported) Aspirin 81 Mg Tab.chew, 81 MG PO DAILY, (Reported) Clopidogrel Bisulfate 75 Mg Tablet, 75 MG PO DAILY, (Reported) Fluticasone/Salmeterol 1 Each Blst.w.dev, 1 EACH IH BID, (Reported) Glipizide 5 Mg Tab.er.24, 5 MG PO DAILY Prescribed by: KAMRYN MARADIAGA on 10/13/20 0925 Montelukast Sodium 10 Mg Tablet, 10 MG PO DAILY, (Reported) Omeprazole 20 Mg Tablet.dr, 20 MG PO DAILY, (Reported) Phenytoin Sodium Extended 100 Mg Capsule, 200 MG PO BID, (Reported) TAKE 2 (100MG) TABS Patient Home Medication List Home Medication List Reviewed: Yes Review of Systems Review of Systems Constitutional: no symptoms reported, see HPI Gastrointestinal: no symptoms reported, see HPI Genitourinary: denies hematuria; pain (Right testicle) All Other Systemes Reviewed Negative Unless Noted: Yes Past Dpjnisd-Qybceh-Dvzlgh Hx Past Med/Social Hx: Reviewed Nursing Past Med/Soc Hx Patient Social History Drug of Choice: DAILY MARIJUANA USE Type Used: Cigarettes 2nd Hand Smoke Exposure: Yes Recent Foreign Travel: No Contact w/Someone Who Travel: No Recent Hopitalizations: No Immunizations Up To Date Tetanus Booster (TDap): Less than 5yrs PED Vaccines UTD: Yes Date of Pneumonia Vaccine: Aug 10, 2015 Date of Influenza Vaccine: Aug 27, 2019 Seasonal Allergies Seasonal Allergies: No Past Medical History Surgeries: Yes (Loop recorder-removed, Brain surgery, Left foot, Stents to emmie legs, ) Cardiac, Neurological, Orthopedic, Vascular Surgery Respiratory: Yes (COPD, SLEEP APNEA, BIPAP) Sleep Apnea, COPD Currently Using CPAP: No Currently Using BIPAP: Yes Cardiac: Yes (BILATERAL SUPERFICAL FEMORAL ARTERY STENTS;CAROTID & VERTEBRAL ARTERY DZ) Atrial Fibrillation, Chronic Edema/Swelling, Coronary Artery Disease, High Cholesterol, Hypertension, Irregular Heartbeat, Peripheral Vascular Neurological: Yes (CLAW HAMMER TO HEAD-- INJURY 1982) Seizure Disorder, Traumatic Brain Injury Reproductive Disorders: No Sexually Transmitted Disease: No HIV/AIDS: No Genitourinary: No Gastrointestinal: Yes (HEPATITIS A 06/27/20--RECOVERED) Gastroesophageal Reflux, Hepatitis, Polyps Musculoskeletal: Yes (BILATERAL CARPAL TUNNEL RELEASE) Arthritis, Chronic Back Pain Endocrine: Yes (BORDERLINE DIABETES, NOT TAKING MEDS) HEENT: Yes Loss of Vision: Bilateral Hearing Impairment: Denies Cancer: No Psychosocial: Yes (RELATED TO BREATHING ISSUES-RACING HELMET/SWIMMING) Anxiety Integumentary: Yes (DRY PATCHES ON ELBOW AND HANDS, scaly rash on feet) Blood Disorders: No Adverse Reaction/Blood Tranf: No Family Medical History Cardiovascular disease Colon cancer FH: cancer 19 FATHER 19 MOTHER No Pertinent Family Hx PAST SURGICAL HISTORY: -LOOP RECORDER PLACED AND REMOVED -RIGHT SUPERFICIAL FEMORAL ARTERY STENT 03/2019 -LEFT SUPERFICIAL FEMORALY ARTERY STENT -BILATERAL CARPAL TUNNEL RELEASE -SURGERY DUE TO HEAD TRAUMA--"CLAW HAMMER" TO HEAD 1982 -LEFT TOE SURGERY -CARDIAC CATH 2017--MODERATE DISEASE, NO INTERVENTION ADDITIONAL PMH: -EXTENSIVE ASVD WITH CORONARY ARTERY DISEASE ( NO INTERVENTION), CAROTID ARTERY DISEASE, AND VERTEBRAL ARTERY DISEASE, WITH LEFT VERTEBRAL ARTERY WITH SEVERE STENOSIS, HAD HAS HAD BILATERAL LOWER EXTREMITY STENTS. Physical Exam Vital Signs Vital Signs - First Documented 10/18/20 20:29 Temp 36.1 Pulse 96 Resp 20 B/P (MAP) 142/75 (97) Pulse Ox 95 O2 Delivery Room Air Capillary Refill : Height, Weight, BMI Height: 6'0" Weight: 258lbs. 0.0oz. 117.707103dp; 34.71 BMI Method:Stated General Appearance: WD/WN, no apparent distress Cardiovascular: normal peripheral pulses, regular rate, rhythm Respiratory: chest non-tender, no respiratory distress, wheezing Gastrointestinal: normal bowel sounds, non tender, soft Male: no hernia; No erythema, No inguinal tenderness; testicular tenderness (right), other (right testicle higher than left (patient reports they are usually even), + cremasteric reflex right) Extremities: normal range of motion, non-tender, pedal edema (2+) Neurologic/Psychiatric: no motor/sensory deficits, alert, normal mood/affect, oriented x 3 Skin: normal color, warm/dry Progress/Results/Core Measures Suspected Sepsis SIRS Temperature: Pulse: Respiratory Rate: Blood Pressure / Mean: Results/Orders My Orders Orders - OMEGA BALDERAS Tramadol Tablet (Ultram Tablet) (10/18/20 21:30) Ua Culture If Indicated (10/18/20 21:26) Medications Given in ED Current Medications Medications Dose Ordered Sig/Angella Route Start Time Stop Time Status Last Admin Dose Admin Tramadol HCl 50 mg ONCE ONCE PO 10/18/20 21:30 10/18/20 21:31 DC 10/18/20 21:40 50 MG Vital Signs/I&O 10/18/20 20:29 Temp 36.1 Pulse 96 Resp 20 B/P (MAP) 142/75 (97) Pulse Ox 95 O2 Delivery Room Air Capillary Refill : Progress Note : Time: 20:35 Progress Note Patient seen and evaluated, explained that we do not have ultrasound services available here tonight. Based on his exam and symptoms it would warrant an ultrasound of the right testicle to rule out torsion. Patient understands, will contact local hospitals for transfer. Ultram 50 mg orally for pain. 2109 spoke to [facility], they have ultrasound services available but they do not have urology services. 2119 spoke to Bk at [facility], on diversion. 2129 spoke to [facility] at [place], [place], Dr. Amor in the emergency department agreed to accept patient on transfer. 2134 discharge instructions and transfer recommendations discussed with the patient, he understands the urgency to report directly to [facility] in [place]. All questions answered. Departure Impression Primary Impression: Right testicular pain Additional Impression: Testicular torsion Disposition: XFER SHT-TRM HOSP Condition: Stable Transfer Transfer Reason: Exceeds level of care Time Spoke to Accepting Phy: 21:30 Transfer Progress Notes [facility], Dr. Amor Departure-Patient Inst. Decision time for Depature: 21:30 Referrals: [facility] (PCP) Primary Care Physician RENETTA CARDOZA (Family) Primary Care Physician Patient Instructions: Testicular Torsion, Adult Add. Discharge Instructions: Do not eat or drink anything. Go directly to [facility] in [place], [place] to the emergency department. You have a medical emergency, if the ultrasound shows testicular torsion. Return to the emergency department for new, urgent healthcare problems. All discharge instructions reviewed with patient and/or family. Voiced understanding. OMEGA BALDERAS Oct 18, 2020 21:29
[2020-10-18 21:54] VITALS: BP 133/72
[2020-10-18 22:14] LABS: BILIRUBIN,URINE NEGATIVE (NEGATIVE); CLARITY,URINE CLEAR; COLOR,URINE YELLOW; GLUCOSE, URINE (UA) NEGATIVE (NEGATIVE); KETONES,URINE NEGATIVE (NEGATIVE); LEUKOCYTE ESTERASE ,URINE NEGATIVE (NEGATIVE); NITRITE,URINE NEGATIVE (NEGATIVE); PROTEIN,URINE TRACE (NEGATIVE)
[2020-10-18 22:22] LABS: BACTERIA,URINE NEGATIVE /HPF; SQUAMOUS EPITHELIAL CELL,UR RARE /HPF
== END 2020-10-18 21:54 | disposition short-term general hospital (02) ==
LOC: EDUNIT# 20:28 → ER 20:31
DX: N50.811 Right testicular pain (principal); N44.00 Torsion of testis, unspecified; J44.9 Chronic obstructive pulmonary disease, unspecified; K21.9 Gastro-esophageal reflux disease without esophagitis; G40.909 Epilepsy, unspecified, not intractable, without status epilepticus; Z82.49 Family history of ischemic heart disease and other diseases of the circulatory system; Z80.0 Family history of malignant neoplasm of digestive organs; Z87.820 Personal history of traumatic brain injury; Z77.22 Contact with and (suspected) exposure to environmental tobacco smoke (acute) (chronic); Z88.6 Allergy status to analgesic agent; Z79.82 Long term (current) use of aspirin
CPT/HCPCS: 81000

== ENCOUNTER 2020-10-20 14:31 | Emergency (ER) | payer MEDICARE, MEDICAID ==
[~2020-10-20] VITALS: Ht 177.8 cm; Wt 110.4 kg
[2020-10-20 14:44] VITALS: BP 135/70
--- NOTE | 2020-10-20 14:55 | ED Lower Extremity ---
General Chief Complaint: Lower Extremity Stated Complaint: BI LATER LEG PAIN Source: patient Exam Limitations: no limitations History of Present Illness Date Seen by Provider: Oct 20, 2020 Time Seen by Provider: 14:50 Initial Comments This is a 59-year-old male presents to the ER with complaints of bilateral lower extremity pain. States he has been having persistent pain in his lower extremities which he rates 8/10 and describes as burning and sharp in nature. Was recently placed on gabapentin 300mg 3 times a day and today is his second day of taking. Additionally notes he has had a red rash on his bilateral lower extremities for approximately one month. States he's had this rash occur before, but it went away spontaneously. Denies fevers, chills, cough, shortness of breath, chest pain, nausea, vomiting, diarrhea. Allergies and Home Medications Allergies Coded Allergies: diclofenac (Verified Allergy, Intermediate, SWELLING, 06/15/17) Home Medications Albuterol Sulfate 18 Gm Hfa.aer.ad, 1 PUFF INH Q4H PRN for SHORTNESS OF BREATH, (Reported) Aspirin 81 Mg Tab.chew, 81 MG PO DAILY, (Reported) Clopidogrel Bisulfate 75 Mg Tablet, 75 MG PO DAILY, (Reported) Fluticasone/Salmeterol 1 Each Blst.w.dev, 1 EACH IH BID, (Reported) Glipizide 5 Mg Tab.er.24, 5 MG PO DAILY Prescribed by: KAMRYN MATT on 10/13/20 0925 Hydrocodone/Acetaminophen 1 Each Tablet, 1 EACH PO Q6H PRN for PAIN-SEVERE (8- 10) Prescribed by: MARCO RIVAS on 10/20/20 1659 Montelukast Sodium 10 Mg Tablet, 10 MG PO DAILY, (Reported) Omeprazole 20 Mg Tablet.dr, 20 MG PO DAILY, (Reported) Phenytoin Sodium Extended 100 Mg Capsule, 200 MG PO BID, (Reported) TAKE 2 (100MG) TABS Patient Home Medication List Home Medication List Reviewed: Yes Review of Systems Constitutional: no symptoms reported EENTM: see HPI Respiratory: no symptoms reported Cardiovascular: no symptoms reported Gastrointestinal: no symptoms reported Genitourinary: no symptoms reported Musculoskeletal: see HPI Skin: rash Psychiatric/Neurological: No Symptoms Reported Past Xmitxbz-Hwpzbr-Ajiaqj Hx Patient Social History Drug of Choice: DAILY MARIJUANA USE Type Used: Cigarettes 2nd Hand Smoke Exposure: Yes Recent Foreign Travel: No Contact w/Someone Who Travel: No Recent Hopitalizations: No Immunizations Up To Date Tetanus Booster (TDap): Less than 5yrs PED Vaccines UTD: Yes Date of Pneumonia Vaccine: Aug 10, 2015 Date of Influenza Vaccine: Aug 27, 2019 Seasonal Allergies Seasonal Allergies: No Past Medical History Surgeries: Yes (Loop recorder-removed, Brain surgery, Left foot, Stents to emmie legs, ) Cardiac, Neurological, Orthopedic, Vascular Surgery Respiratory: Yes (COPD, SLEEP APNEA, BIPAP) Sleep Apnea, COPD Currently Using CPAP: No Currently Using BIPAP: Yes Cardiac: Yes (BILATERAL SUPERFICAL FEMORAL ARTERY STENTS;CAROTID & VERTEBRAL ARTERY DZ) Atrial Fibrillation, Chronic Edema/Swelling, Coronary Artery Disease, High Cholesterol, Hypertension, Irregular Heartbeat, Peripheral Vascular Neurological: Yes (CLAW HAMMER TO HEAD-- INJURY 1982) Seizure Disorder, Traumatic Brain Injury Reproductive Disorders: No Sexually Transmitted Disease: No HIV/AIDS: No Genitourinary: No Gastrointestinal: Yes (HEPATITIS A 06/27/20--RECOVERED) Gastroesophageal Reflux, Hepatitis, Polyps Musculoskeletal: Yes (BILATERAL CARPAL TUNNEL RELEASE) Arthritis, Chronic Back Pain Endocrine: Yes (BORDERLINE DIABETES, NOT TAKING MEDS) HEENT: Yes Loss of Vision: Bilateral Hearing Impairment: Denies Cancer: No Psychosocial: Yes (RELATED TO BREATHING ISSUES-RACING HELMET/SWIMMING) Anxiety Integumentary: Yes (DRY PATCHES ON ELBOW AND HANDS, scaly rash on feet) Blood Disorders: No Adverse Reaction/Blood Tranf: No Family Medical History Cardiovascular disease Colon cancer FH: cancer 19 FATHER 19 MOTHER No Pertinent Family Hx PAST SURGICAL HISTORY: -LOOP RECORDER PLACED AND REMOVED -RIGHT SUPERFICIAL FEMORAL ARTERY STENT 03/2019 -LEFT SUPERFICIAL FEMORALY ARTERY STENT -BILATERAL CARPAL TUNNEL RELEASE -SURGERY DUE TO HEAD TRAUMA--"CLAW HAMMER" TO HEAD 1982 -LEFT TOE SURGERY -CARDIAC CATH 2017--MODERATE DISEASE, NO INTERVENTION ADDITIONAL PMH: -EXTENSIVE ASVD WITH CORONARY ARTERY DISEASE ( NO INTERVENTION), CAROTID ARTERY DISEASE, AND VERTEBRAL ARTERY DISEASE, WITH LEFT VERTEBRAL ARTERY WITH SEVERE STENOSIS, HAD HAS HAD BILATERAL LOWER EXTREMITY STENTS. Physical Exam Vital Signs Vital Signs - First Documented 10/20/20 14:44 Temp 36.3 Pulse 92 Resp 18 B/P (MAP) 135/70 (91) Pulse Ox 96 O2 Delivery Room Air Capillary Refill : Height, Weight, BMI Height: 6'0" Weight: 258lbs. 0.0oz. 117.456347ef; 34.00 BMI Method:Stated General Appearance: WD/WN, no apparent distress HEENT: PERRL/EOMI, normal ENT inspection Neck: full range of motion, normal inspection Cardiovascular: regular rate, rhythm, no murmur Respiratory: lungs clear, normal breath sounds, no respiratory distress, no accessory muscle use Gastrointestinal: normal bowel sounds, non tender, soft Back: normal inspection, no vertebral tenderness (to touch) Legs: bilateral leg normal inspection, bilateral leg normal range of motion, bilateral leg swelling, bilateral leg other (splotchy dark red/purple papules/patches on BLE and and thighs. ) Neurologic/Tendon: normal sensation, normal motor functions, normal tendon functions Neurologic/Psychiatric: no motor/sensory deficits, alert, normal mood/affect, oriented x 3 Skin: normal color, warm/dry, rash Progress/Results/Core Measures Results/Orders Lab Results Laboratory Tests Test 10/20/20 15:30 10/20/20 16:14 Range/Units White Blood Count 3.2 L 4.3-11.0 10^3/uL Red Blood Count 5.41 4.30-5.52 10^6/uL Hemoglobin 16.4 13.3-17.7 g/dL Hematocrit 49 40-54 % Mean Corpuscular Volume 90 80-99 fL Mean Corpuscular Hemoglobin 30 25-34 pg Mean Corpuscular Hemoglobin Concent 34 32-36 g/dL Red Cell Distribution Width 12.6 10.0-14.5 % Platelet Count 162 130-400 10^3/uL Mean Platelet Volume 9.1 9.0-12.2 fL Immature Granulocyte % (Auto) 1 % Neutrophils (%) (Auto) 57 42-75 % Lymphocytes (%) (Auto) 31 12-44 % Monocytes (%) (Auto) 8 0-12 % Eosinophils (%) (Auto) 3 0-10 % Basophils (%) (Auto) 1 0-10 % Neutrophils # (Auto) 1.8 1.8-7.8 10^3/uL Lymphocytes # (Auto) 1.0 1.0-4.0 10^3/uL Monocytes # (Auto) 0.2 0.0-1.0 10^3/uL Eosinophils # (Auto) 0.1 0.0-0.3 10^3/uL Basophils # (Auto) 0.0 0.0-0.1 10^3/uL Immature Granulocyte # (Auto) 0.0 0.0-0.1 10^3/uL Erythrocyte Sedimentation Rate 17 0-30 MM/HR Sodium Level 134 L 135-145 MMOL/L Potassium Level 3.9 3.6-5.0 MMOL/L Chloride Level 99 98-107 MMOL/L Carbon Dioxide Level 27 21-32 MMOL/L Anion Gap 8 5-14 MMOL/L Blood Urea Nitrogen 10 7-18 MG/DL Creatinine 0.76 0.60-1.30 MG/DL Estimat Glomerular Filtration Rate > 60 BUN/Creatinine Ratio 13 Glucose Level 85 70-105 MG/DL Calcium Level 8.9 8.5-10.1 MG/DL Corrected Calcium 9.4 8.5-10.1 MG/DL Total Bilirubin 0.6 0.1-1.0 MG/DL Aspartate Amino Transf (AST/SGOT) 72 H 5-34 U/L Alanine Aminotransferase (ALT/SGPT) 136 H 0-55 U/L Alkaline Phosphatase 171 H 40-136 U/L C-Reactive Protein High Sensitivity 5.42 H 0.00-0.50 MG/DL Total Protein 8.5 H 6.4-8.2 GM/DL Albumin 3.4 3.2-4.5 GM/DL Urine Color YELLOW Urine Clarity CLEAR Urine pH 6.0 5-9 Urine Specific Cobalt 1.025 H 1.016-1.022 Urine Protein NEGATIVE NEGATIVE Urine Glucose (UA) NEGATIVE NEGATIVE Urine Ketones NEGATIVE NEGATIVE Urine Nitrite NEGATIVE NEGATIVE Urine Bilirubin NEGATIVE NEGATIVE Urine Urobilinogen 2.0 < = 1.0 MG/DL Urine Leukocyte Esterase NEGATIVE NEGATIVE Urine RBC (Auto) NEGATIVE NEGATIVE Urine RBC 0-2 /HPF Urine WBC 0-2 /HPF Urine Crystals PRESENT H /LPF Urine Amorphous Sediment FEW AURE URATES H /LPF Urine Bacteria TRACE /HPF Urine Casts NONE /LPF Urine Mucus LARGE H /LPF Urine Culture Indicated NO My Orders Orders - MARCO RIVAS FIRE CAPTAIN Cbc With Automated Diff (10/20/20 15:03) Comprehensive Metabolic Panel (10/20/20 15:03) Hs C Reactive Protein (10/20/20 15:03) Erythrocyte Sedimentation Rate (10/20/20 15:03) Urinalysis (10/20/20 15:03) Gabapentin Capsule/Tablet (Neurontin Cap (10/20/20 15:15) Hydrocodone/Apap 5/325 Tablet (Lortab 5 (10/20/20 15:15) Medications Given in ED Current Medications Medications Dose Ordered Sig/Angella Route Start Time Stop Time Status Last Admin Dose Admin Acetaminophen/ Hydrocodone Bitart 1 tab ONCE ONCE PO 10/20/20 15:15 10/20/20 15:16 DC 10/20/20 15:34 1 TAB Gabapentin 300 mg ONCE ONCE PO 10/20/20 15:15 10/20/20 15:16 DC 10/20/20 15:35 300 MG Vital Signs/I&O 10/20/20 14:44 Temp 36.3 Pulse 92 Resp 18 B/P (MAP) 135/70 (91) Pulse Ox 96 O2 Delivery Room Air Progress Progress Note : Progress Note Presented with complaints of bilateral lower extremity pain and rash that had been present x one month. Rash is dark red/purple in color, patchy spots and localized to bilateral lower extremities. States he's been evaluated by 3 separate providers, and was told it is likely d/t his diabetes. Concerns for cutaneous vasculitis. Initiated basic lab workup and inflammatory markers with CRP and ESR. Labs reviewed, noted to have elevated liver markers and inflammatory markers. Liver markers are improved from his visit on 10/13/20. Gave him his home dose of Gabapentin and Lortab in ED for BLE pain. Reports his pain improved from 8/10 to 3/10. Reviewed discharge plan with him and he is agreeable with plan. Recommended he follow up his primary care provider for continued vasculitis workup. Departure Impression Primary Impression: LEG DISCOMFORT Additional Impressions: PVD (peripheral vascular disease) Rash Disposition: 01 HOME, SELF-CARE Condition: Improved Departure-Patient Inst. Decision time for Depature: 16:52 Referrals: [facility] (PCP) Primary Care Physician RENETTA CARDOZA (Family) Primary Care Physician Patient Instructions: Skin Rash (DC), Peripheral Vascular (Arterial) Disease (DC) Add. Discharge Instructions: Plan: 1. Discharge home. 2. Continue taking Gabapentin as directed. 3. May take Hydrocodone 5/325mg as needed every 6 hours for severe pain. 4. Follow up with your primary care provider for further vasculitis workup. 5. Keep legs elevated and use compression hose for swelling as previously directed. 6. Return for any new or concerning symptoms. All discharge instructions reviewed with patient and/or family. Voiced understanding. Scripts Hydrocodone/Acetaminophen (Hydrocodone-Acetamin 5-325 mg) 1 Each Tablet 1 EACH PO Q6H PRN for PAIN-SEVERE (8-10), #10 TAB 0 Refills Prov: MARCO RIVAS FIRE [employer]TAIN 10/20/20 MARCO RIVAS APRN Oct 20, 2020 14:55
[2020-10-20] MEDS ORDERED: HYDROcodone/APAP 5 MG/325 MG (LORTAB) TAB PO ONE (15:15)
[2020-10-20] MEDS ORDERED: GABAPENTIN 300 MG (NEURONTIN) CAP PO ONE (15:15)
[2020-10-20 15:40] LABS: BASOPHILS % (AUTO) 1 % (0-10); EOSINOPHILS # (AUTO) 0.1 10^3/uL (0.0-0.3); EOSINOPHILS % (AUTO) 3 % (0-10); HEMATOCRIT 49 % (40-54); HEMOGLOBIN 16.4 g/dL (13.3-17.7); LYMPHOCYTES % (AUTO) 31 % (12-44); MEAN CORPUSCULAR HEMOGLOBIN 30 pg (25-34); MEAN CORPUSCULAR HGB CONC 34 g/dL (32-36); MEAN CORPUSCULAR VOLUME 90 fL (80-99); MEAN PLATELET VOLUME 9.1 fL (9.0-12.2); MONOCYTES # (AUTO) 0.2 10^3/uL (0.0-1.0); MONOCYTES % (AUTO) 8 % (0-12); NEUTROPHILS # (AUTO) 1.8 10^3/uL (1.8-7.8); NEUTROPHILS % (AUTO) 57 % (42-75); PLATELET COUNT 162 10^3/uL (130-400); WHITE BLOOD COUNT 3.2 10^3/uL (4.3-11.0)
[2020-10-20 15:48] LABS: ALBUMIN 3.4 GM/DL (3.2-4.5); CHLORIDE 99 MMOL/L (98-107); POTASSIUM 3.9 MMOL/L (3.6-5.0); SODIUM 134 MMOL/L (135-145)
[2020-10-20 15:49] LABS: CALCIUM 8.9 MG/DL (8.5-10.1)
[2020-10-20 15:51] LABS: GLUCOSE 85 MG/DL (70-105); TOTAL PROTEIN 8.5 GM/DL (6.4-8.2)
[2020-10-20 15:52] LABS: BILIRUBIN,TOTAL 0.6 MG/DL (0.1-1.0); CARBON DIOXIDE 27 MMOL/L (21-32)
[2020-10-20 15:54] LABS: ALKALINE PHOSPHATASE 171 U/L (40-136); CREATININE SERUM 0.76 MG/DL (0.60-1.30); GFR ESTIMATED > 60
[2020-10-20 15:55] LABS: BUN/CREATININE RATIO 13
[2020-10-20 15:57] LABS: ALANINE AMINOTRANSFERASE 136 U/L (0-55)
[2020-10-20 16:15] LABS: ERYTHROCYTE SEDIMENTATION RATE 17 MM/HR (0-30)
[2020-10-20 16:27] LABS: BILIRUBIN,URINE NEGATIVE (NEGATIVE); CLARITY,URINE CLEAR; COLOR,URINE YELLOW; GLUCOSE, URINE (UA) NEGATIVE (NEGATIVE); KETONES,URINE NEGATIVE (NEGATIVE); LEUKOCYTE ESTERASE ,URINE NEGATIVE (NEGATIVE); NITRITE,URINE NEGATIVE (NEGATIVE); PROTEIN,URINE NEGATIVE (NEGATIVE)
[2020-10-20 16:36] LABS: AMORPHOUS SEDIMENT,UR FEW AMOR URATES /LPF; BACTERIA,URINE TRACE /HPF; RBC,URINE 0-2 /HPF; WBC,URINE 0-2 /HPF
[2020-10-20] MEDS ORDERED: ACHD5005 PO (16:59)
== END 2020-10-20 17:06 | disposition home or self-care (01) ==
LOC: EDUNIT# 14:31 → ER 14:32
DX: M79.89 Other specified soft tissue disorders (principal); I73.9 Peripheral vascular disease, unspecified; R21 Rash and other nonspecific skin eruption; J44.9 Chronic obstructive pulmonary disease, unspecified; K21.9 Gastro-esophageal reflux disease without esophagitis; G40.909 Epilepsy, unspecified, not intractable, without status epilepticus; G89.29 Other chronic pain; M54.9 Dorsalgia, unspecified; Z82.49 Family history of ischemic heart disease and other diseases of the circulatory system; Z80.0 Family history of malignant neoplasm of digestive organs; Z87.820 Personal history of traumatic brain injury; Z77.22 Contact with and (suspected) exposure to environmental tobacco smoke (acute) (chronic); Z88.6 Allergy status to analgesic agent; Z79.82 Long term (current) use of aspirin; Z79.891 Long term (current) use of opiate analgesic
CPT/HCPCS: 36415; 80053; 81000; 85025; 85652; 86141; 99283

== ENCOUNTER 2021-02-17 10:35 | Emergency (ER) | payer MEDICARE, MEDICAID ==
[~2021-02-17] VITALS: Ht 177 cm; Wt 127.0 kg
[~2021-02-17 10:35] MED LIST changes: +GLBR2.5T PO; -GLYB2.5T4 PO; +MONT10TA32 PO; -MONT10TA97 PO
[2021-02-17 11:11] LABS: BASOPHILS % (AUTO) 0 % (0-10); EOSINOPHILS # (AUTO) 0.2 10^3/uL (0.0-0.3); EOSINOPHILS % (AUTO) 4 % (0-10); HEMATOCRIT 52 % (40-54); HEMOGLOBIN 15.7 g/dL (13.3-17.7); LYMPHOCYTES # (AUTO) 1.2 10^3/uL (1.0-4.0); LYMPHOCYTES % (AUTO) 25 % (12-44); MEAN CORPUSCULAR HEMOGLOBIN 28 pg (25-34); MEAN CORPUSCULAR HGB CONC 30 g/dL (32-36); MEAN CORPUSCULAR VOLUME 94 fL (80-99); MEAN PLATELET VOLUME 9.4 fL (9.0-12.2); MONOCYTES # (AUTO) 0.3 10^3/uL (0.0-1.0); MONOCYTES % (AUTO) 6 % (0-12); NEUTROPHILS % (AUTO) 64 % (42-75); PLATELET COUNT 142 10^3/uL (130-400); WHITE BLOOD COUNT 4.7 10^3/uL (4.3-11.0)
[2021-02-17 11:24] LABS: ALBUMIN 3.5 GM/DL (3.2-4.5); CHLORIDE 99 MMOL/L (98-107); POTASSIUM 3.8 MMOL/L (3.6-5.0); SODIUM 138 MMOL/L (135-145)
[2021-02-17 11:25] LABS: CALCIUM 8.4 MG/DL (8.5-10.1)
[2021-02-17 11:26] LABS: GLUCOSE 156 MG/DL (70-105); TOTAL PROTEIN 7.7 GM/DL (6.4-8.2)
[2021-02-17 11:27] LABS: CARBON DIOXIDE 31 MMOL/L (21-32)
[2021-02-17 11:28] LABS: BILIRUBIN,TOTAL 0.4 MG/DL (0.1-1.0)
[2021-02-17 11:29] LABS: ALKALINE PHOSPHATASE 130 U/L (40-136)
[2021-02-17 11:30] LABS: CREATININE SERUM 0.91 MG/DL (0.60-1.30); GFR ESTIMATED > 60
[2021-02-17 11:31] LABS: BUN/CREATININE RATIO 15
[2021-02-17 11:33] LABS: ALANINE AMINOTRANSFERASE 19 U/L (0-55)
--- NOTE | 2021-02-17 11:57 | Diagnostic Imaging Report ---
INDICATION: Shortness of air. COMPARISON: 08/22/2020 TECHNIQUE: Single radiograph of the chest dated 02/17/2021. FINDINGS: The cardiac silhouette is at the upper limits of normal in size. No significant pulmonary vascular congestion. The lungs are clear of focal pulmonary opacity. No pleural effusion. No pneumothorax. Chronic right clavicular fracture. No acute osseous abnormality. IMPRESSION: Stable appearing examination without acute cardiopulmonary abnormality. Dictated by: Dictated on workstation # [id number]
[2021-02-17] MEDS ORDERED: NS 100 ML (IVPB) BAG IV ONE (12:00)
[2021-02-17] MEDS ORDERED: IOHEXOL 350 MG/ML 100 ML (OMNIPAQUE 350) VIAL IV ONE (12:00)
[2021-02-17] MEDS ORDERED: HOLD METFORMIN - RECEIVED CONTRAST 20 ML VIAL IV SCH (12:00)
--- NOTE | 2021-02-17 12:23 | Diagnostic Imaging Report ---
PROCEDURE: CT angiography of the chest with contrast. TECHNIQUE: Multiple contiguous axial images were obtained through the chest after uneventful bolus administration of intravenous contrast. 3D reconstructed CTA MIP acquisitions were also performed. Auto Exposure Controls were utilized during the CT exam to meet ALARA standards for radiation dose reduction. INDICATION: Shortness of air, suspicion for PE. FINDINGS: Pulmonary arterial branches are opacified and patent. No filling defect. No acute or chronic PE identified. The thoracic aorta is patent and nonaneurysmal. There is no pleural or pericardial effusion. There is no pneumothorax. There is some scattered pulmonary air cyst and mild air trapping but no evidence for focal pneumonia or features of edema. No lung mass or thoracic lymphadenopathy. The aorta is patent and nonaneurysmal and nonacute. No acute chest wall pathology. The visualized upper abdomen showed no acute appearing abnormality. IMPRESSION: Negative for PE or other acute abnormalities. Dictated by: Dictated on workstation # [id number]
[2021-02-17] MEDS ORDERED: PRD20T PO (12:41)
--- NOTE | 2021-02-17 12:41 | ED Respiratory ---
General Chief Complaint: Respiratory Problems Stated Complaint: SOB, LOW 02 Nursing Triage Note: PT AMB TO ROOM 10 PT CO BRANDI TAVERA WAS SEEN AT [facility] YESTERDAY AND CALLED TODAY BE STAFF AND TOLD TO GO TO ED. PT STATES IS WEARING O2 AT HOME AT 2L AT TIMES. DENIES FEVERS Source: patient Exam Limitations: no limitations History of Present Illness Date Seen by Provider: Feb 17, 2021 Time Seen by Provider: 11:00 Initial Comments This 60-year-old gentleman presents to the emergency room at the direction of the [facility] clinic where he had labs obtained yesterday related to complaints of shortness of breath. He reportedly had an elevated D-dimer of 0.8. Patient denies any chest pain. He has had exacerbation of shortness of breath in the past few days. His shortness of breath is responsive to bronchodilators. He continues to smoke but has been tapering down on the quantity of cigarettes. He wears oxygen at 2 L at all times at home. He is stable on 2 L at present. He denies cough or fever. Allergies and Home Medications Allergies Coded Allergies: diclofenac (Verified Allergy, Intermediate, SWELLING, 06/15/17) Home Medications Albuterol Sulfate 18 Gm Hfa.aer.ad, 1 PUFF INH Q4H PRN for SHORTNESS OF BREATH, (Reported) Aspirin 81 Mg Tab.chew, 81 MG PO DAILY, (Reported) Clopidogrel Bisulfate 75 Mg Tablet, 75 MG PO DAILY, (Reported) Fluticasone/Salmeterol 1 Each Blst.w.dev, 1 EACH IH BID, (Reported) Glipizide 5 Mg Tab.er.24, 5 MG PO DAILY Prescribed by: KAMRYN MATT on 10/13/20 0925 Hydrocodone/Acetaminophen 1 Each Tablet, 1 EACH PO Q6H PRN for PAIN-SEVERE (8- 10) Prescribed by: MARCO RIVAS on 10/20/20 1659 Montelukast Sodium 10 Mg Tablet, 10 MG PO DAILY, (Reported) Omeprazole 20 Mg Tablet.dr, 20 MG PO DAILY, (Reported) Phenytoin Sodium Extended 100 Mg Capsule, 200 MG PO BID, (Reported) TAKE 2 (100MG) TABS Prednisone 20 Mg Tab, 40 MG PO DAILY Prescribed by: LAURI BARTLETT on 02/17/21 1241 Patient Home Medication List Home Medication List Reviewed: Yes Review of Systems Review of Systems Constitutional: no symptoms reported EENTM: no symptoms reported Respiratory: see HPI Cardiovascular: no symptoms reported Gastrointestinal: no symptoms reported Genitourinary: no symptoms reported Musculoskeletal: no symptoms reported Skin: no symptoms reported Psychiatric/Neurological: No Symptoms Reported Hematologic/Lymphatic: No Symptoms Reported Immunological/Allergic: no symptoms reported Past Vsnjfrs-Zpmwgb-Axiwih Hx Past Med/Social Hx: Reviewed Nursing Past Med/Soc Hx Patient Social History Alcohol Use: Denies Use Drug of Choice: DAILY MARIJUANA USE Smoking Status: Current Everyday Smoker Type Used: Cigarettes 2nd Hand Smoke Exposure: Yes Recent Infectious Disease Expo: No Recent Hopitalizations: No Immunizations Up To Date Tetanus Booster (TDap): Less than 5yrs PED Vaccines UTD: Yes Date of Pneumonia Vaccine: Aug 10, 2015 Date of Influenza Vaccine: Aug 27, 2019 Seasonal Allergies Seasonal Allergies: No Past Medical History Surgeries: Yes (Loop recorder-removed, Brain surgery, Left foot, Stents to emmie legs, ) Cardiac, Neurological, Orthopedic, Vascular Surgery Respiratory: Yes (COPD, SLEEP APNEA, BIPAP) Sleep Apnea, COPD (Uses oxygen at 2 L at all times) Currently Using CPAP: No Currently Using BIPAP: Yes Cardiac: Yes (BILATERAL SUPERFICAL FEMORAL ARTERY STENTS;CAROTID & VERTEBRAL ARTERY DZ) Atrial Fibrillation, Chronic Edema/Swelling, Coronary Artery Disease, High Cholesterol, Hypertension, Irregular Heartbeat, Peripheral Vascular Neurological: Yes (CLAW HAMMER TO HEAD-- INJURY 1982) Seizure Disorder, Traumatic Brain Injury Reproductive Disorders: No Sexually Transmitted Disease: No HIV/AIDS: No Genitourinary: No Gastrointestinal: Yes (HEPATITIS A 06/27/20--RECOVERED) Gastroesophageal Reflux, Hepatitis, Polyps Musculoskeletal: Yes (BILATERAL CARPAL TUNNEL RELEASE) Arthritis, Chronic Back Pain Endocrine: Yes (BORDERLINE DIABETES, NOT TAKING MEDS) HEENT: Yes Loss of Vision: Bilateral Hearing Impairment: Denies Cancer: No Psychosocial: Yes (RELATED TO BREATHING ISSUES-RACING HELMET/SWIMMING) Anxiety Integumentary: Yes (DRY PATCHES ON ELBOW AND HANDS, scaly rash on feet) Blood Disorders: No Adverse Reaction/Blood Tranf: No Family Medical History Cardiovascular disease Colon cancer FH: cancer 19 FATHER 19 MOTHER No Pertinent Family Hx PAST SURGICAL HISTORY: -LOOP RECORDER PLACED AND REMOVED -RIGHT SUPERFICIAL FEMORAL ARTERY STENT 03/2019 -LEFT SUPERFICIAL FEMORALY ARTERY STENT -BILATERAL CARPAL TUNNEL RELEASE -SURGERY DUE TO HEAD TRAUMA--"CLAW HAMMER" TO HEAD 1982 -LEFT TOE SURGERY -CARDIAC CATH 2017--MODERATE DISEASE, NO INTERVENTION ADDITIONAL PMH: -EXTENSIVE ASVD WITH CORONARY ARTERY DISEASE ( NO INTERVENTION), CAROTID ARTERY DISEASE, AND VERTEBRAL ARTERY DISEASE, WITH LEFT VERTEBRAL ARTERY WITH SEVERE STENOSIS, HAD HAS HAD BILATERAL LOWER EXTREMITY STENTS. Physical Exam Vital Signs - First Documented 02/17/21 02/17/21 10:41 12:54 Temp 36.1 Pulse 101 Resp 18 B/P (MAP) 149/85 (106) Pulse Ox 91 O2 Delivery Room Air O2 Flow Rate 2.00 Capillary Refill : Less Than 3 Seconds Height: 6'0" Weight: 258lbs. 0.0oz. 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, no motor/sensory deficits, alert, normal mood/affect, oriented x 3 Skin: normal color, warm/dry Progress/Results/Core Measures Suspected Sepsis Recent Fever Within 48 Hours: No Infection Criteria Present: None New/Unexplained Altered Menta: No Sepsis Screen: No Definite Risk SIRS Temperature: Pulse: 101 Respiratory Rate: 18 Laboratory Tests 02/17/21 10:55: White Blood Count 4.7 Blood Pressure 149 /85 Mean: 106 Laboratory Tests 02/17/21 10:55: Creatinine 0.91, Platelet Count 142, Total Bilirubin 0.4 Results/Orders Lab Results Laboratory Tests Test 02/17/21 10:55 Range/Units White Blood Count 4.7 4.3-11.0 10^3/uL Red Blood Count 5.59 H 4.30-5.52 10^6/uL Hemoglobin 15.7 13.3-17.7 g/dL Hematocrit 52 40-54 % Mean Corpuscular Volume 94 80-99 fL Mean Corpuscular Hemoglobin 28 25-34 pg Mean Corpuscular Hemoglobin Concent 30 L 32-36 g/dL Red Cell Distribution Width 13.7 10.0-14.5 % Platelet Count 142 130-400 10^3/uL Mean Platelet Volume 9.4 9.0-12.2 fL Immature Granulocyte % (Auto) 0 % Neutrophils (%) (Auto) 64 42-75 % Lymphocytes (%) (Auto) 25 12-44 % Monocytes (%) (Auto) 6 0-12 % Eosinophils (%) (Auto) 4 0-10 % Basophils (%) (Auto) 0 0-10 % Neutrophils # (Auto) 3.0 1.8-7.8 10^3/uL Lymphocytes # (Auto) 1.2 1.0-4.0 10^3/uL Monocytes # (Auto) 0.3 0.0-1.0 10^3/uL Eosinophils # (Auto) 0.2 0.0-0.3 10^3/uL Basophils # (Auto) 0.0 0.0-0.1 10^3/uL Immature Granulocyte # (Auto) 0.0 0.0-0.1 10^3/uL Sodium Level 138 135-145 MMOL/L Potassium Level 3.8 3.6-5.0 MMOL/L Chloride Level 99 98-107 MMOL/L Carbon Dioxide Level 31 21-32 MMOL/L Anion Gap 8 5-14 MMOL/L Blood Urea Nitrogen 14 7-18 MG/DL Creatinine 0.91 0.60-1.30 MG/DL Estimat Glomerular Filtration Rate > 60 BUN/Creatinine Ratio 15 Glucose Level 156 H 70-105 MG/DL Calcium Level 8.4 L 8.5-10.1 MG/DL Corrected Calcium 8.8 8.5-10.1 MG/DL Total Bilirubin 0.4 0.1-1.0 MG/DL Aspartate Amino Transf (AST/SGOT) 17 5-34 U/L Alanine Aminotransferase (ALT/SGPT) 19 0-55 U/L Alkaline Phosphatase 130 40-136 U/L C-Reactive Protein High Sensitivity 3.00 H 0.00-0.50 MG/DL B-Type Natriuretic Peptide 53.9 <100.0 PG/ML Total Protein 7.7 6.4-8.2 GM/DL Albumin 3.5 3.2-4.5 GM/DL Coronavirus 2019 (KACI) Not Detected Not Detecte Micro Results Microbiology 02/17/21 Influenza Types A,B Antigen (TORI) - Final, Complete My Orders Orders - LAURI NAVARRETE MD BNP (02/17/21 11:00) Cbc With Automated Diff (02/17/21 11:00) Comprehensive Metabolic Panel (02/17/21 11:00) Hs C Reactive Protein (02/17/21 11:00) Chest 1 View, Ap/Pa Only (02/17/21 11:00) Ed Iv/Invasive Line Start (02/17/21 11:00) Influenza A And B Antigens (02/17/21 11:02) Covid 19 Inhouse Test (02/17/21 11:02) Ct Angio Chest W (02/17/21 11:47) Iohexol Injection (Omnipaque 350 Mg/Ml 1 (02/17/21 12:00) Received Contrast (Hold Metformin- Contr (02/17/21 12:00) Ns (Ivpb) (Sodium Chloride 0.9% Ivpb Bag (02/17/21 12:00) Medications Given in ED Current Medications Medications Dose Ordered Sig/Angella Route Start Time Stop Time Status Last Admin Dose Admin Iohexol 100 ml ONCE ONCE IV 02/17/21 12:00 02/17/21 12:01 DC 02/17/21 12:05 88 ML Sodium Chloride 100 ml ONCE ONCE IV 02/17/21 12:00 02/17/21 12:01 DC 02/17/21 12:05 80 ML Vital Signs/I&O 02/17/21 02/17/21 10:41 12:54 Temp 36.1 Pulse 101 88 Resp 18 18 B/P (MAP) 149/85 (106) 136/82 (106) Pulse Ox 91 94 O2 Delivery Room Air Nasal Cannula O2 Flow Rate 2.00 Capillary Refill : Less Than 3 Seconds Blood Pressure Mean: 106 Progress Note : Progress Note Flu and Covid swabs were negative. Lab work was relatively unremarkable. CT angiogram was obtained based on report of elevated D-dimer from the clinic. CT showed no evidence of pneumonia or pulmonary emboli. Patient declined need for nebulizer treatments at this time. He was ultimately discharged home with steroid therapy. Diagnostic Imaging Diagonstic Imaging: Xray Plain Films/CT/US/NM/MRI: chest Comments NAME: [facility] REC#: [id number] PT STATUS: DEP ER : 1960 PHYSICIAN: LAURI NAVARRETE MD ADMIT DATE: 02/17/21/ER Signed Date of Exam:02/17/21 CHEST 1 VIEW, AP/PA ONLY INDICATION: Shortness of air. COMPARISON: 08/22/2020 TECHNIQUE: Single radiograph of the chest dated 02/17/2021. FINDINGS: The cardiac silhouette is at the upper limits of normal in size. No significant pulmonary vascular congestion. The lungs are clear of focal pulmonary opacity. No pleural effusion. No pneumothorax. Chronic right clavicular fracture. No acute osseous abnormality. IMPRESSION: Stable appearing examination without acute cardiopulmonary abnormality. Dictated by: Dictated on workstation # [id number] Dict: 02/17/21 1154 Trans: 02/17/21 1635 [facility] [id number] Interpreted by: EVELYNE BROWN MD Electronically signed by: EVELYNE BROWN MD 02/17/21 1635 Reviewed: Reviewed by Me Diagonstic Imaging: CT Plain Films/CT/US/NM/MRI: chest Comments CT angiogram chest viewed by me and report reviewed. See report below: NAME: [facility] REC#: [id number] PT STATUS: [facility] ER : 1960 PHYSICIAN: LAURI NAVARRETE MD ADMIT DATE: 02/17/21/ER Signed Date of Exam:02/17/21 CT ANGIO CHEST W PROCEDURE: CT angiography of the chest with contrast. TECHNIQUE: Multiple contiguous axial images were obtained through the chest after uneventful bolus administration of intravenous contrast. 3D reconstructed CTA MIP acquisitions were also performed. Auto Exposure Controls were utilized during the CT exam to meet ALARA standards for radiation dose reduction. INDICATION: Shortness of air, suspicion for PE. FINDINGS: Pulmonary arterial branches are opacified and patent. No filling defect. No acute or chronic PE identified. The thoracic aorta is patent and nonaneurysmal. There is no pleural or pericardial effusion. There is no pneumothorax. There is some scattered pulmonary air cyst and mild air trapping but no evidence for focal pneumonia or features of edema. No lung mass or thoracic lymphadenopathy. The aorta is patent and nonaneurysmal and nonacute. No acute chest wall pathology. The visualized upper abdomen showed no acute appearing abnormality. IMPRESSION: Negative for PE or other acute abnormalities. Dictated by: Dictated on workstation # [id number] Dict: 02/17/21 1219 Trans: 02/17/21 1430 [id number] Interpreted by: OLY BURNETTE Electronically signed by: OLY BURNETTE 02/17/21 1430 Departure Impression Primary Impression: COPD exacerbation Disposition: HOME, SELF-CARE Condition: Stable Departure-Patient Inst. Decision time for Depature: 12:39 Referrals: [facility] (PCP) Primary Care Physician JENNA MATHEWS (Family) Primary Care Physician Patient Instructions: Chronic Obstructive Pulmonary Disease (COPD), Including Emphysema Add. Discharge Instructions: Continue to work toward quitting smoking as rapidly as possible. Continue your inhaled treatments at home as previously prescribed. Complete the 4 days of prednisone steroid therapy as prescribed. Call with questions or concerns. Return to the ER if you have worsening symptoms. Otherwise follow-up with your primary care provider soon as possible. All discharge instructions reviewed with patient and/or family. Voiced understanding. Scripts Prednisone (Prednisone) 20 Mg Tab 40 MG PO DAILY, #8 TAB 0 Refills Prov: LAURI NAVARRETE MD 02/17/21 Copy Copies To 1: BRANDEN BORJA JOSHUA T MD Feb 17, 2021 12:41
[2021-02-17 12:54] VITALS: BP 136/82
== END 2021-02-17 12:54 | disposition home or self-care (01) ==
LOC: EDUNIT# 10:35 → ER 10:37
DX: J44.1 Chronic obstructive pulmonary disease with (acute) exacerbation (principal); I10 Essential (primary) hypertension; K21.9 Gastro-esophageal reflux disease without esophagitis; G40.909 Epilepsy, unspecified, not intractable, without status epilepticus; G89.29 Other chronic pain; M54.9 Dorsalgia, unspecified; F17.210 Nicotine dependence, cigarettes, uncomplicated; Z87.820 Personal history of traumatic brain injury; Z20.822 Contact with and (suspected) exposure to COVID-19; Z88.6 Allergy status to analgesic agent; Z79.82 Long term (current) use of aspirin; Z79.52 Long term (current) use of systemic steroids; Z79.899 Other long term (current) drug therapy; Z79.891 Long term (current) use of opiate analgesic
CPT/HCPCS: 71045; 71275; 80053; 83880; 85025; 86141; 87804; 99284; U0002; 36415; 87635

== ENCOUNTER → 2021-03-01 | Outpatient (CLI) | payer MEDICARE, MEDICAID | LOC: CARD 09:00 | PROVIDERS: ATTEND Internal Medicine Cardiovascular Disease | DX: I50.31 Acute diastolic (congestive) heart failure (principal); I07.1 Rheumatic tricuspid insufficiency | CPT/HCPCS: 93306 ==

== ENCOUNTER → 2021-03-02 | Outpatient (CLI) | payer MEDICARE, MEDICAID ==
[~2021-03-02] VITALS: Ht 177 cm; Wt 118.0 kg
[~2021-03-02] MED LIST changes: +CATHETER FLUSH 10 ML SYR IV PRN; +REGADENOSON 0.4 MG/5 ML SYR (LEXISCAN) IV ONE
[2021-03-02 09:35] VITALS: BP 163/92
[2021-03-02 09:51] LABS: BUN/CREATININE RATIO 13; CALCIUM 8.8 MG/DL (8.5-10.1); CARBON DIOXIDE 33 MMOL/L (21-32); CHLORIDE 99 MMOL/L (98-107); CREATININE SERUM 1.02 MG/DL (0.60-1.30); GFR ESTIMATED > 60; GLUCOSE 136 MG/DL (70-105); POTASSIUM 4.2 MMOL/L (3.6-5.0); SODIUM 138 MMOL/L (135-145)
--- NOTE | 2021-03-03 14:06 | STRESS TEST ---
DATE OF SERVICE: 03/02/2021 RESTING AND POST REGADENOSON TECHNETIUM-99M TETROFOSMIN SPECT CT IMAGING ORDERING PHYSICIAN: Dr. Maradiaga. PRIMARY PHYSICIAN: [facility]. CLINICAL DIAGNOSIS: Acute diastolic heart failure. Baseline images were carried out after injection of 9.84 mCi of technetium-99m Tetrofosmin. This was followed by 0.4 mg Regadenoson and 30.5 mCi of technetium-99m Tetrofosmin for stress imaging. The electrocardiogram showed sinus rhythm throughout the study. Isolated premature ventricular contractions were seen. Sinus tachycardia was seen intermittently. There was ST segment abnormality at baseline and persisted unchanged on this study. Review of images at rest and following stress indicates a predominantly fixed infero-septal perfusion defect. Gated images show an infero-septal hypokinesis. Left ventricular ejection fraction is calculated to be 46%. Left ventricular end diastolic volume 110 mL. TID is absent (1.09). CONCLUSIONS: 1. This study is indicative of infero-septal myocardial infarction with a small amount of nico-infarct ischemia. 2. Infero-septal hypokinesis. 3. Mild impairment of global left ventricular systolic function with a calculated ejection fraction of 46%. Job ID: [id number] DocumentID: [id number] Dictated Date: 03/03/2021 09:58:57 Professor Of Art Date: 03/03/2021 14:05:42 Dictated By: KAMRYN MARADIAGA MD, MA, FACP, FACC, MTDD
== END ==
LOC: CARD 07:40
PROVIDERS: ATTEND Internal Medicine Cardiovascular Disease
DX: I50.31 Acute diastolic (congestive) heart failure (principal)
CPT/HCPCS: 78452; 80048; 83735; 83880; 93017; A9502; 36415

== ENCOUNTER 2021-03-23 07:55 | Day surgery (SDC) | payer MEDICARE, MEDICAID ==
[2021-03-16 07:57] VITALS: BP 149/79
[2021-03-16 08:12] LABS: HEMATOCRIT 56 % (40-54); HEMOGLOBIN 16.6 g/dL (13.3-17.7); MEAN CORPUSCULAR HEMOGLOBIN 27 pg (25-34); MEAN CORPUSCULAR HGB CONC 30 g/dL (32-36); MEAN CORPUSCULAR VOLUME 91 fL (80-99); MEAN PLATELET VOLUME 9.3 fL (9.0-12.2); PLATELET COUNT 151 10^3/uL (130-400); WHITE BLOOD COUNT 5.1 10^3/uL (4.3-11.0)
[2021-03-16 08:42] LABS: ALANINE AMINOTRANSFERASE 16 U/L (0-55); ALBUMIN 3.5 GM/DL (3.2-4.5); ALKALINE PHOSPHATASE 135 U/L (40-136); BILIRUBIN,TOTAL 0.3 MG/DL (0.1-1.0); BUN/CREATININE RATIO 15; CALCIUM 8.7 MG/DL (8.5-10.1); CARBON DIOXIDE 31 MMOL/L (21-32); CHLORIDE 99 MMOL/L (98-107); CHOLESTEROL 171 MG/DL (< 200); CREATININE SERUM 1.08 MG/DL (0.60-1.30); GFR ESTIMATED > 60; GLUCOSE 133 MG/DL (70-105); HDL CHOLESTEROL 37 MG/DL (40-60); POTASSIUM 4.2 MMOL/L (3.6-5.0); SODIUM 138 MMOL/L (135-145); TOTAL PROTEIN 7.6 GM/DL (6.4-8.2); TRIGLYCERIDES 279 MG/DL (<150); VLDL CHOLESTEROL 56 MG/DL (5-40)
[~2021-03-23] VITALS: Ht 175 cm; Wt 126.0 kg
[2021-03-23] VITALS (11 sets, daily range): BP systolic 120–155; BP diastolic 52–94
[~2021-03-23 07:55] MED LIST changes: -CATHETER FLUSH 10 ML SYR IV PRN; +HEParin (CATH LAB) 0 ML IV ONE; +INSU100I14 SQ; +INSU100V5 SQ; +LIDOCAINE 1% INJ 20 ML 20 ML VIAL ONE; +NS IV 1000 ML 1,000 ML IV SCH; +NS IV 1000 ML 1,000 ML ONE; +POTA-51 PO; -REGADENOSON 0.4 MG/5 ML SYR (LEXISCAN) IV ONE
[2021-03-23] MEDS ORDERED: HEParin (CATH LAB) 2,000 ML IV ONE (07:56)
[2021-03-23] MEDS ORDERED: LIDOCAINE 1% INJ 20 ML 20 ML VIAL ONE (07:56)
[2021-03-23] MEDS ORDERED: NS IV 1000 ML 1,000 ML ONE (07:56)
[2021-03-23] MEDS ORDERED: NS IV 1000 ML 1,000 ML IV SCH ×2 (08:30→10:15)
[2021-03-23] MEDS ORDERED: fentaNYL INJ 100 MCG/2 ML AMP ONE (09:15)
[2021-03-23] MEDS ORDERED: MIDAZOLAM 5 MG/5 ML (VERSED) VIAL ONE (09:15)
[2021-03-23] MEDS ORDERED: HEParin 1000 UNIT/ML (10ML VIAL) FOR BOLUS ONE (09:40)
[2021-03-23] MEDS ORDERED: EPTIFIBATIDE BOLUS 20 ML IV ONE (09:40)
--- NOTE | 2021-03-23 10:11 | Discharge Inst-Cardiology ---
Discharge Inst-Cardiac Discharge Medications Continued Medications: Albuterol Sulfate (Ventolin Hfa) 18 Gm Hfa.aer.ad 1 PUFF INH Q4H PRN for SHORTNESS OF BREATH Aspirin (Aspirin) 81 Mg Tab.chew 81 MG PO DAILY, TAB Clopidogrel Bisulfate (Clopidogrel) 75 Mg Tablet 75 MG PO DAILY, TAB Fluticasone/Salmeterol (Advair 250-50 Diskus) 1 Each Blst.w.dev 1 EACH IH BID Furosemide (Lasix) 80 Mg Tablet 80 MG PO DAILY, TAB Insulin Aspart (Novolog Flexpen) 300 Units/3 Ml Solution 10 UNITS SQ AC, EA Insulin Determir (Levemir) 1,000 Units/10 Ml Soln 30 UNITS SQ HS, EA Montelukast Sodium (Montelukast Sodium) 10 Mg Tablet 10 MG PO DAILY, TAB Omeprazole (Omeprazole) 20 Mg Tablet.dr 20 MG PO DAILY, TAB Phenytoin Sodium Extended (Phenytoin Sodium Extended) 100 Mg Capsule 200 MG PO BID, CAP TAKE 2 (100MG) TABS Potassium Chloride (Potassium Chloride) 20 Meq Tablet.er 20 MEQ PO DAILY, TAB KAMRYN MATT MD FACP FACC CCDS March 23, 2021 10:11
--- NOTE | 2021-03-23 10:11 | Discharge Inst-Post CATH ---
Discharge Inst-CATH/EP Post Cardiac Cath/EP D/C Inst Follow Up/Plan F/u with Dr Maradiaga in 2 weeks ACTIVITY * Go Home directly and rest. * Limit activity of the leg (or wrist if it was used) for 7 days including aerobics, swimming, jogging, bicycling, etc. * Restrict stair-climbing for 7 days if possible, if not, climb up with your n on-cath leg, then bring together on the same step. * Avoid lifting, pushing, pulling or excessive movement of the affected ex tremity for 7 days. * Customary sexual activity may be resumed after 2 days-use caution not to use a position that strains or causes pain to the affected extremity. * No driving for 24 hours. * NO SMOKING. * Avoid straining for bowel movements for 7 days. * Gentle walking on level ground is allowed. * Returning to work will depend on the type of procedure and the results. Your doctor will discuss this with you. CALL YOUR DOCTOR FOR ANY OF THE FOLLOWING: *If bleeding from the puncture site occurs- Apply gentle pressure to site with clean cloth and call your doctor or EMS. * If a knot or lump forms under the skin, increases in size, or causes pain. * If bruising appears to be worsening or moving further down your leg instead of disappearing. * Temperature above 101 F. CARE OF YOUR GROIN INCISION; * Bruising or purple discoloration of the skin near the puncture site is common. * You may shower only, no bathtub bathing for 5 days. Be careful to avoid slipping as your leg may feel stiff. * If a closure device was used on your femoral artery, please see the attached guide regarding care of the device and your leg. * Leave dressing on FOR 24 hours. CARE OF YOUR WRIST INCISION; * Bruising or purple discoloration of the skin near the puncture site is common. * You may shower. * DO NOT submerge wrist. * Leave dressing on FOR 24 hours. KAMRYN MARADIAGA MD FACP FAC CCDS March 23, 2021 10:11
[2021-03-23] MEDS ORDERED: PATIENT MAY USE OWN MEDS, ALL PO SCH (10:15)
--- NOTE | 2021-03-23 11:01 | CARDIAC CATHETERIZATION ---
DATE OF SERVICE: 03/23/2021 CARDIAC CATHETERIZATION REPORT INDICATION FOR PROCEDURE: The patient is a 60-year-old gentleman, who has multiple coronary artery disease risk factors and who has recently had symptoms of congestive heart failure. A noninvasive cardiac workup showed that he had had an inferior wall myocardial infarction and that there was nico-infarct ischemia. This was a new finding compared to his previous cardiac workup. In addition, this was in the setting of a new onset of congestive heart failure. Accordingly, cardiac catheterization was recommended. Informed consent was obtained. DESCRIPTION OF PROCEDURE: He was brought to the cardiac catheterization laboratory in a fasting state. Right groin was prepared and draped in the usual sterile fashion. Lidocaine 1% was used for local anesthesia. Angiography of the right femoral artery was carried out through the sheath. We used 5-Pakistani JL4 catheter for left coronary angiography and 5-Pakistani JR4 catheter for right coronary angiography. We used a 5-Pakistani JR4 catheter for left heart catheterization and left ventricular angiography. Subsequently, we attempted percutaneous intervention to the right coronary artery that is described below. ATTEMPTED PERCUTANEOUS INTERVENTION TO THE RIGHT CORONARY ARTERY: We exchanged the sheath over a wire for a 6-Pakistani sheath. We used a 6-Pakistani JR4 guide catheter with side holes. We gave 8000 units of intravenous heparin and a single bolus of Integrilin. We engaged the right coronary artery and tried to advance a ChoICE floppy wire across the lesion. The lesion is long and is flushed with the origin of a small branch. Despite multiple attempts, the wire did not cross the long lesion. The right coronary artery does have left to right and right to right collaterals. It did not appear that further attempts would be fruitful. The coronary status remains unchanged following this attempt. Angioplasty equipment was removed. Mynx was used to achieve hemostasis. He tolerated the procedure well. HEMODYNAMICS: Left ventricular end-diastolic pressure following coronary angiography was 17 mmHg. There is no significant pressure gradient on pullback across the aortic valve. Ascending aortic pressure was 104/63 with a mean of 80 mmHg. CORONARY ANGIOGRAPHY: Left main coronary artery, left anterior descending artery, right coronary artery exhibits mild plaques. There are left to right collaterals. Right coronary artery is occluded in its mid portion following the origin of some atrial branches. The right coronary artery is collateralized from the left and from the right. Attempted percutaneous intervention to the right coronary artery was unsuccessful. LEFT VENTRICULAR ANGIOGRAPHY: Left ventricular angiography was carried out in the right anterior oblique projection. There appears to be posterobasal hypokinesis. Left ventricular ejection fraction approximately 45%. CONCLUSIONS: 1. Coronary artery disease primarily consisting of chronic mid-vessel occlusion of the right coronary artery (long lesion) that is collateralized from the left coronary system and from antegrade collaterals. The rest of the coronary arteries have mild plaque. 2. Elevated left ventricular end-diastolic pressure (17 mmHg). 3. Mild impairment of global left ventricular systolic function with an ejection fraction approximately 45% DISCUSSION AND RECOMMENDATIONS: His current cardiac regimen is being continued. We have again advised him to quit smoking immediately and completely. Outpatient followup is advised. Job ID: [id number] DocumentID: [id number] Dictated Date: 03/23/2021 10:21:25 Room Server Date: 03/23/2021 11:00:26 Dictated By: KAMRYN MATT MD, MA, FACP, FACC, MTDD
--- NOTE | 2021-03-23 11:16 | Cardiac Procedure Note-CS/ASA ---
Pre-Procedure Note Pre-Op Procedure Note H&P Reviewed The H&P was reviewed, patient examined and no changes noted. Date H&P Reviewed: March 23, 2021 Time H&P Reviewed: 09:50 Conscious Sedation Pre-Proced Time 09:50 ASA Score 3 For ASA 3 and 4: Consider anesthesia and medical clearance. Also, for patients with a history of failed moderate sedation consider anesthesia. Airway Lungs Heart ASA score ASA 1: a normal healthy patient ASA 2: a patient with a mild systemic disease (mid diabetes, controlled hypertension, obesity ASA 3: a patient with a severe systemic disease that limits activity (angina, COPD, prior Myocardial infarction) ASA 4: a patient with an incapacitating disease that is a constant threat to life (CHF, renal failure) ASA 5: a moribund patient not expected to survive 24 hrs. (ruptured aneurysm) ASA 6: a declared brain- patient whose organs are being harvested. For emergent operations, add the letter E after the classification Mallampati Classification Grade 2 Sedation Plan Analgesia, Amnesia, Plan communicated to team members, Discussed options with patient/fam, Discussed risks with patient/fam The patient is an appropriate candidate to undergo the planned procedure, sedation, and anesthesia. The patient immediately re-assessed prior to indication. KAMRYN MATT MD FACP FAC CCDS March 23, 2021 11:16
== END 2021-03-23 15:40 | disposition home or self-care (01) ==
LOC: CATH 07:55 → SDC 10:18 → CATH 15:40
PROVIDERS: ATTEND Internal Medicine Cardiovascular Disease
DX: I25.10 Atherosclerotic heart disease of native coronary artery without angina pectoris (principal); I70.213 Atherosclerosis of native arteries of extremities with intermittent claudication, bilateral legs; I25.2 Old myocardial infarction; J44.9 Chronic obstructive pulmonary disease, unspecified; E78.5 Hyperlipidemia, unspecified; I11.0 Hypertensive heart disease with heart failure; I50.31 Acute diastolic (congestive) heart failure; G47.33 Obstructive sleep apnea (adult) (pediatric); I65.23 Occlusion and stenosis of bilateral carotid arteries; F17.210 Nicotine dependence, cigarettes, uncomplicated; Z88.8 Allergy status to other drugs, medicaments and biological substances; Z79.82 Long term (current) use of aspirin; Z79.02 Long term (current) use of antithrombotics/antiplatelets; Z79.51 Long term (current) use of inhaled steroids; Z79.899 Other long term (current) drug therapy; Z99.81 Dependence on supplemental oxygen; Z98.890 Other specified postprocedural states; Z91.14 Patient's other noncompliance with medication regimen; Z83.3 Family history of diabetes mellitus
CPT/HCPCS: 80053; 80061; 85027; 85610; 85730; 87081; 93458; C1760; C1769; C1887; C1894 ×2; 36415

== ENCOUNTER 2021-05-14 10:34 | Emergency (ER) | payer MEDICARE, MEDICAID ==
[~2021-05-14] VITALS: Ht 177.8 cm; Wt 117.9 kg
[~2021-05-14 10:34] MED LIST changes: -HEParin (CATH LAB) 0 ML IV ONE; -LIDOCAINE 1% INJ 20 ML 20 ML VIAL ONE; -NS IV 1000 ML 1,000 ML IV SCH; -NS IV 1000 ML 1,000 ML ONE
[2021-05-14 10:39] VITALS: BP 158/85
--- NOTE | 2021-05-14 11:21 | ED Respiratory ---
General Chief Complaint: Respiratory Problems Stated Complaint: COPD Nursing Triage Note: PT C/O SOB AND CHEST PAIN. PT REPORTS HX OF COPD AND SYMPTOMS WORSENED TODAY. 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 History of Present Illness Date Seen by Provider: May 14, 2021 Time Seen by Provider: 10:40 Initial Comments Patient is a 60-year-old male who presents to the emergency department today with a chief complaint of shortness of breath and chest pain. Patient states onset of symptoms this morning at around 6 AM when he woke up. Patient describes the chest pain as a sensation of having "smoked too many cigarettes". He describes it as tight. He tells me he has no history of coronary artery disease. He states the shortness of breath is his "COPD". Patient wears BiPAP at night on 2 L of oxygen. He states that his normal pulse ox is somewhere between 90 and 92%. He is not currently wearing oxygen. He appears in no acute distress. Patient states that 6 AM he has had 4 breathing treatments. No relief of his symptoms. Patient cannot lay flat to sleep at night he has orthopnea 4 pillows. No radiation of the chest pain, no nausea or diaphoresis. No recent illnesses. Patient was Covid tested on Monday and states that it was negative. All other review of systems reviewed and negative except as stated above. Timing/Duration: this morning (6am) Severity: moderate Prior Episodes/Possible Cause: frequent episodes Modifying Factors: Improves With Albuterol Inhaler, Improves With Albuterol Nebulizer; Worse With Lying Down Associated Symptoms: chest pain/soreness, shortness of breath Allergies and Home Medications Allergies Coded Allergies: diclofenac (Verified Allergy, Intermediate, SWELLING, 06/15/17) Home Medications Albuterol Sulfate 18 Gm Hfa.aer.ad, 1 PUFF INH Q4H PRN for SHORTNESS OF BREATH, (Reported) Aspirin 81 Mg Tab.chew, 81 MG PO DAILY, (Reported) Clopidogrel Bisulfate 75 Mg Tablet, 75 MG PO DAILY, (Reported) Fluticasone/Salmeterol 1 Each Blst.w.dev, 1 EACH IH BID, (Reported) Furosemide 80 Mg Tablet, 80 MG PO DAILY, (Reported) Insulin Aspart 300 Units/3 Ml Solution, 10 UNITS SQ AC, (Reported) Insulin Determir 1,000 Units/10 Ml Soln, 30 UNITS SQ HS, (Reported) Montelukast Sodium 10 Mg Tablet, 10 MG PO DAILY, (Reported) Omeprazole 20 Mg Tablet.dr, 20 MG PO DAILY, (Reported) Phenytoin Sodium Extended 100 Mg Capsule, 200 MG PO BID, (Reported) TAKE 2 (100MG) TABS Potassium Chloride 20 Meq Tablet.er, 20 MEQ PO DAILY, (Reported) Patient Home Medication List Home Medication List Reviewed: Yes Review of Systems Review of Systems Constitutional: see HPI EENTM: no symptoms reported Respiratory: cough, orthopnea, phlegm, short of breath Cardiovascular: chest pain Gastrointestinal: no symptoms reported Genitourinary: no symptoms reported Musculoskeletal: no symptoms reported Skin: no symptoms reported Psychiatric/Neurological: No Symptoms Reported All Other Systems Reviewed Negative Unless Noted: Yes Past Jufzddc-Heeotq-Nhazte Hx Patient Social History Tobacco Use?: Yes Tobacco type used: Cigarettes Smoking Status: Current Everyday Smoker Use of E-Cig and/or Vaping dev: No Substance use?: Yes Substance type: Marijuana Alcohol Use?: No Pt feels they are or have been: No Immunizations Up To Date Tetanus Booster (TDap): Less than 5yrs PED Vaccines UTD: Yes First/Initial COVID19 Vaccinat: 01/17 COVID19 Vaccine 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: [employer] Seasonal Allergies Seasonal Allergies: No Past Medical History Surgeries: Yes (Loop recorder-removed, Brain surgery, Left foot, Stents to emmie legs, ) Cardiac, Neurological, Orthopedic Respiratory: Yes (COPD, SLEEP APNEA, BIPAP) Sleep Apnea, COPD Currently Using CPAP: No Currently Using BIPAP: Yes Cardiac: Yes (BILATERAL SUPERFICAL FEMORAL ARTERY STENTS;CAROTID & VERTEBRAL ARTERY DZ) Chronic Edema/Swelling, Coronary Artery Disease, High Cholesterol, Hypertension, Peripheral Vascular Neurological: Yes (CLAW HAMMER TO HEAD-- INJURY 1982) Seizure Disorder, Traumatic Brain Injury Reproductive Disorders: No Sexually Transmitted Disease: No HIV/AIDS: No Genitourinary: No Gastrointestinal: Yes (HEPATITIS A 06/27/20) Gastroesophageal Reflux, Hepatitis, Polyps Musculoskeletal: Yes (BILATERAL CARPAL TUNNEL RELEASE) Arthritis, Chronic Back Pain Endocrine: Yes (BORDERLINE DIABETES, NOT TAKING MEDS) HEENT: Yes Loss of Vision: Bilateral Hearing Impairment: Denies Cancer: No Psychosocial: Yes (RELATED TO BREATHING ISSUES-RACING HELMET/SWIMMING) Anxiety Integumentary: Yes (DRY PATCHES ON ELBOW AND HANDS, scaly rash on feet) Blood Disorders: No Adverse Reaction/Blood Tranf: No Family Medical History Cardiovascular disease Colon cancer FH: cancer 19 FATHER 19 MOTHER No Pertinent Family Hx PAST SURGICAL HISTORY: -LOOP RECORDER PLACED AND REMOVED -RIGHT SUPERFICIAL FEMORAL ARTERY STENT 03/2019 -LEFT SUPERFICIAL FEMORALY ARTERY STENT -BILATERAL CARPAL TUNNEL RELEASE -SURGERY DUE TO HEAD TRAUMA--"CLAW HAMMER" TO HEAD 1982 -LEFT TOE SURGERY -CARDIAC CATH 2017--MODERATE DISEASE, NO INTERVENTION ADDITIONAL PMH: -EXTENSIVE ASVD WITH CORONARY ARTERY DISEASE ( NO INTERVENTION), CAROTID ARTERY DISEASE, AND VERTEBRAL ARTERY DISEASE, WITH LEFT VERTEBRAL ARTERY WITH SEVERE STENOSIS, HAD HAS HAD BILATERAL LOWER EXTREMITY STENTS. Physical Exam Vital Signs - First Documented 05/14/21 10:39 Temp 36.5 Pulse 96 Resp 20 B/P (MAP) 158/85 (109) Pulse Ox 90 O2 Delivery Room Air Capillary Refill : Less Than 3 Seconds Height: 6'0" Weight: 258lbs. 0.0oz. 117.457951yx; 37.00 BMI Method:Stated General Appearance: WD/WN, no apparent distress Eyes: Bilateral Eye Normal Inspection, Bilateral Eye PERRL, Bilateral Eye EOMI HEENT: PERRL/EOMI Respiratory: no respiratory distress, no accessory muscle use, wheezing ( Expiratory wheezes noted bilaterally especially in the posterior lung mcgill. No increased work of breathing or respiratory distress is noted) Cardiovascular: regular rate, rhythm Gastrointestinal: non tender, soft Extremities: non-tender, normal inspection, no pedal edema, no calf tenderness Neurologic/Psychiatric: alert, normal mood/affect, oriented x 3 Skin: normal color, warm/dry Progress/Results/Core Measures Suspected Sepsis SIRS Temperature: Pulse: 96 Respiratory Rate: 20 Laboratory Tests 05/14/21 10:52: White Blood Count 4.2L Blood Pressure 158 /85 Mean: 109 Laboratory Tests 05/14/21 10:52: Creatinine 1.06, Platelet Count 145 Results/Orders Lab Results Laboratory Tests Test 05/14/21 10:52 Range/Units White Blood Count 4.2 L 4.3-11.0 10^3/uL Red Blood Count 5.97 H 4.30-5.52 10^6/uL Hemoglobin 16.7 13.3-17.7 g/dL Hematocrit 53 40-54 % Mean Corpuscular Volume 89 80-99 fL Mean Corpuscular Hemoglobin 28 25-34 pg Mean Corpuscular Hemoglobin Concent 31 L 32-36 g/dL Red Cell Distribution Width 16.5 H 10.0-14.5 % Platelet Count 145 130-400 10^3/uL Mean Platelet Volume 9.2 9.0-12.2 fL Immature Granulocyte % (Auto) 1 % Neutrophils (%) (Auto) 62 42-75 % Lymphocytes (%) (Auto) 25 12-44 % Monocytes (%) (Auto) 7 0-12 % Eosinophils (%) (Auto) 4 0-10 % Basophils (%) (Auto) 1 0-10 % Neutrophils # (Auto) 2.6 1.8-7.8 10^3/uL Lymphocytes # (Auto) 1.1 1.0-4.0 10^3/uL Monocytes # (Auto) 0.3 0.0-1.0 10^3/uL Eosinophils # (Auto) 0.2 0.0-0.3 10^3/uL Basophils # (Auto) 0.0 0.0-0.1 10^3/uL Immature Granulocyte # (Auto) 0.0 0.0-0.1 10^3/uL Sodium Level 135 135-145 MMOL/L Potassium Level 4.2 3.6-5.0 MMOL/L Chloride Level 95 L 98-107 MMOL/L Carbon Dioxide Level 31 21-32 MMOL/L Anion Gap 9 5-14 MMOL/L Blood Urea Nitrogen 14 7-18 MG/DL Creatinine 1.06 0.60-1.30 MG/DL Estimat Glomerular Filtration Rate > 60 BUN/Creatinine Ratio 13 Glucose Level 340 H 70-105 MG/DL Calcium Level 9.0 8.5-10.1 MG/DL Total Creatine Kinase 90 30-200 U/L Creatine Kinase MB 5.7 <6.6 NG/ML Troponin I 0.059 H <0.028 NG/ML My Orders Orders - LIMA CRUZ MD Ed Iv/Invasive Line Start (05/14/21 11:17) Cbc With Automated Diff (05/14/21 11:17) Basic Metabolic Panel (05/14/21 11:17) Creatine Kinase (05/14/21 11:17) Creatine Kinase Mb (05/14/21 11:17) Troponin I (05/14/21 11:17) Chest 1 View, Ap/Pa Only (05/14/21 11:17) Ekg Tracing (05/14/21 11:17) Methylprednisolone Sod Succ (Solu-Medrol (05/14/21 11:30) Aspirin Chewable Tablet (Baby Aspirin Ch (05/15/21 09:00) Aspirin Chewable Tablet (Baby Aspirin Ch (05/14/21 11:34) Medications Given in ED Current Medications Medications Dose Ordered Sig/Angella Route Start Time Stop Time Status Last Admin Dose Admin Methylprednisolone Sodium Succinate 125 mg ONCE ONCE IVP 05/14/21 11:30 05/14/21 11:31 DC 05/14/21 11:37 125 MG Vital Signs/I&O 05/14/21 10:39 Temp 36.5 Pulse 96 Resp 20 B/P (MAP) 158/85 (109) Pulse Ox 90 O2 Delivery Room Air Capillary Refill : Less Than 3 Seconds Blood Pressure Mean: 109 Progress Note : Time: 11:29 Progress Note Review of the medical record shows that the patient had a cardiac catheterization in February 2021. Results are as follows: CONCLUSIONS: 1. Coronary artery disease primarily consisting of chronic mid-vessel occlusion of the right coronary artery (long lesion) that is collateralized from the left coronary system and from antegrade collaterals. The rest of the coronary arteries have mild plaque. 2. Elevated left ventricular end-diastolic pressure (17 mmHg). 3. Mild impairment of global left ventricular systolic function with an ejection fraction approximately 45% Patient is given full-strength aspirin here in the emergency department. Cardiac enzymes are pending as is chest x-ray. Patient's current pain is rated at a "2-3"; at its worst a "7-8" 1305 Patient reevaluated, sitting on the side of the bed, pain-free. His troponin is positive. I did advise the patient that he should stay in the hospital with his positive troponin but he states that he has to go and take care of his grandkids. Patient promises that he will check back in in an hour and a half. Patient has no ongoing pain. I strongly encouraged him to go ahead and stay in the hospital but again he declined. His vital signs are stable. He is pain- free. I have discussed the risks and benefits of signing out AMA which include worsening condition, . Patient verbalized understanding that he knows that he could if he leaves the hospital. All questions are sought and answered. ECG Initial ECG Impression Date: May 14, 2021 Initial ECG Impression Time: 10:51 Initial ECG Rate: 95 Initial ECG Rhythm: Normal Sinus Initial ECG Intervals VA 201 QRS 119 QTC [address]-T wave changes with depression of 1 mm in 2, 3 and aVF; first-degree AV block with VA interval greater than 200 ms; no ST segment elevation is noted The inferior ST-T wave changes do appear to be a slight change from previous Diagnostic Imaging Diagonstic Imaging: Xray Plain Films/CT/US/NM/MRI: chest Comments [facility]. [place], [place] NAME: LELE GAMBLE [facility] REC#: [id number] PT STATUS: REG ER : 1960 PHYSICIAN: LIMA CRUZ MD ADMIT DATE: 05/14/21/ER Signed Date of Exam:05/14/21 CHEST 1 VIEW, AP/PA ONLY Indication: Lower respiratory infection Portable chest 11:26 AM Heart size and pulmonary vascularity are normal. Lungs are clear. There are no effusions or pneumothoraces. IMPRESSION: No acute abnormalities in the chest Dictated by: Dictated on workstation # [id number] Dict: 05/14/21 1135 Trans: 05/14/21 1135 TCB [id number] Interpreted by: WHITNEY COLLIER MD Electronically signed by: WHITNEY COLLIER MD 05/14/21 1135 Departure Impression Primary Impression: Acute coronary syndrome Additional Impression: Hyperglycemia Disposition: 07 AGAINST MEDICAL ADVICE Condition: Against Medical Advice Departure-Patient Inst. Referrals: [facility] (PCP) Primary Care Physician JENNA MATHEWS (Family) Primary Care Physician LIMA CRUZ MD May 14, 2021 11:21
[2021-05-14] MEDS ORDERED: methylPREDNISolone 125 MG (Solu-MEDROL) VIAL IVP ONE (11:30)
[2021-05-14] MEDS ORDERED: ASPIRIN 81 MG CHEW (CHILDREN'S ASA) ONE (11:34)
--- NOTE | 2021-05-14 11:36 | Diagnostic Imaging Report ---
Indication: Lower respiratory infection Portable chest 11:26 AM Heart size and pulmonary vascularity are normal. Lungs are clear. There are no effusions or pneumothoraces. IMPRESSION: No acute abnormalities in the chest Dictated by: Dictated on workstation # [id number]
[2021-05-14 11:46] LABS: BASOPHILS % (AUTO) 1 % (0-10); EOSINOPHILS # (AUTO) 0.2 10^3/uL (0.0-0.3); EOSINOPHILS % (AUTO) 4 % (0-10); HEMATOCRIT 53 % (40-54); HEMOGLOBIN 16.7 g/dL (13.3-17.7); LYMPHOCYTES # (AUTO) 1.1 10^3/uL (1.0-4.0); LYMPHOCYTES % (AUTO) 25 % (12-44); MEAN CORPUSCULAR HEMOGLOBIN 28 pg (25-34); MEAN CORPUSCULAR HGB CONC 31 g/dL (32-36); MEAN CORPUSCULAR VOLUME 89 fL (80-99); MEAN PLATELET VOLUME 9.2 fL (9.0-12.2); MONOCYTES # (AUTO) 0.3 10^3/uL (0.0-1.0); MONOCYTES % (AUTO) 7 % (0-12); NEUTROPHILS # (AUTO) 2.6 10^3/uL (1.8-7.8); NEUTROPHILS % (AUTO) 62 % (42-75); PLATELET COUNT 145 10^3/uL (130-400); WHITE BLOOD COUNT 4.2 10^3/uL (4.3-11.0)
[2021-05-14 11:47] LABS: CHLORIDE 95 MMOL/L (98-107); POTASSIUM 4.2 MMOL/L (3.6-5.0); SODIUM 135 MMOL/L (135-145)
[2021-05-14 11:49] LABS: GLUCOSE 340 MG/DL (70-105)
[2021-05-14 11:50] LABS: CARBON DIOXIDE 31 MMOL/L (21-32)
[2021-05-14 11:53] LABS: CREATININE SERUM 1.06 MG/DL (0.60-1.30); GFR ESTIMATED > 60
[2021-05-14 11:54] LABS: BUN/CREATININE RATIO 13
[2021-05-14 11:55] LABS: CREATINE KINASE 90 U/L (30-200)
[2021-05-14 12:02] LABS: CREATINE KINASE MB 5.7 NG/ML (<6.6)
[2021-05-15] MEDS ORDERED: ASPIRIN 81 MG CHEW (CHILDREN'S ASA) PO SCH (09:00)
[2021-05-15] MEDS ORDERED: MTP25TSR PO (12:10)
[2021-05-15] MEDS ORDERED: NITR0.4T42 SL (12:10)
[2021-05-15] MEDS ORDERED: ROSU20TA32 PO (12:32)
[2021-05-15] MEDS ORDERED: PRED10TA22 PO (12:43)
== END 2021-05-14 13:04 | disposition left against medical advice (07) ==
LOC: EDUNIT# 10:34 → ER 10:36
DX: I24.9 Acute ischemic heart disease, unspecified (principal); R73.9 Hyperglycemia, unspecified; I10 Essential (primary) hypertension; J44.9 Chronic obstructive pulmonary disease, unspecified; I25.10 Atherosclerotic heart disease of native coronary artery without angina pectoris; G40.909 Epilepsy, unspecified, not intractable, without status epilepticus; K21.9 Gastro-esophageal reflux disease without esophagitis; G89.29 Other chronic pain; M54.9 Dorsalgia, unspecified; G47.33 Obstructive sleep apnea (adult) (pediatric); F17.210 Nicotine dependence, cigarettes, uncomplicated; Z99.89 Dependence on other enabling machines and devices; Z79.82 Long term (current) use of aspirin; Z95.9 Presence of cardiac and vascular implant and graft, unspecified; Z79.51 Long term (current) use of inhaled steroids; Z79.899 Other long term (current) drug therapy
CPT/HCPCS: 36415; 71045; 80048; 82550; 82553; 84484; 85025; 93005

== ENCOUNTER 2021-07-08 09:59 | Day surgery (SDC) | payer MEDICARE, MEDICAID ==
[2021-07-08] VITALS (11 sets, daily range): BP systolic 103–145; BP diastolic 56–76
[~2021-07-08] VITALS: Ht 177.8 cm; Wt 120.5 kg
[~2021-07-08 09:59] MED LIST changes: +MTP25TSR PO; +NITR0.4T42 SL; +ROSU20TA32 PO
[2021-07-08] MEDS ORDERED: HEParin (CATH LAB) 2,000 ML IV ONE (10:14)
[2021-07-08] MEDS ORDERED: LIDOCAINE 1% INJ 20 ML 20 ML VIAL ONE (10:14)
[2021-07-08] MEDS ORDERED: NS IV 1000 ML 1,000 ML ONE (10:14)
[2021-07-08] MEDS ORDERED: ASPIRIN 81 MG CHEW (CHILDREN'S ASA) PO ONE (10:15)
[2021-07-08] MEDS ORDERED: CATHETER FLUSH 10 ML SYR IV PRN (10:15)
[2021-07-08] MEDS ORDERED: NS IV 1000 ML 1,000 ML IV ONE (10:15)
[2021-07-08] MEDS ORDERED: NITR0.4T39 SL (11:01)
[2021-07-08] MEDS ORDERED: VERAPAMIL 5 MG/2 ML (CALAN) VIAL IV ONE (11:01)
[2021-07-08] MEDS ORDERED: ISOS60TA63 PO (11:01)
[2021-07-08] MEDS ORDERED: MULT-1136 PO (11:01)
[2021-07-08] MEDS ORDERED: ROSU20TA32 PO (11:01)
[2021-07-08] MEDS ORDERED: MTP25TSR PO (11:01)
[2021-07-08] MEDS ORDERED: fentaNYL INJ 100 MCG/2 ML AMP ONE (11:01)
[2021-07-08] MEDS ORDERED: GBPN600T PO (11:01)
[2021-07-08] MEDS ORDERED: HEParin 1000 UNIT/ML (10ML VIAL) FOR BOLUS ONE (11:02)
[2021-07-08] MEDS ORDERED: MIDAZOLAM 5 MG/5 ML (VERSED) VIAL ONE (11:02)
[2021-07-08] MEDS ORDERED: NITRO DRIP 25000 MCG/D5W 250 ML IV ONE (11:02)
--- NOTE | 2021-07-08 11:29 | Pre-Op Note & Conscious Sedat ---
Pre-Operative Progress Note H&P Reviewed The H&P was reviewed, patient examined and no changes noted. Date H&P Reviewed: Jul 08, 2021 Time H&P Reviewed: 11:29 Pre-Op Diagnosis: Coronary artery disease with other forms of angina. Conscious Sedation Pre-Proced ASA Score 2 For ASA 3 and 4: Consider anesthesia and medical clearance. Also, for patients with a history of failed moderate sedation consider anesthesia. Airway Lungs Heart ASA score ASA 1: a normal healthy patient ASA 2: a patient with a mild systemic disease (mid diabetes, controlled hypertension, obesity ASA 3: a patient with a severe systemic disease that limits activity (angina, COPD, prior Myocardial infarction) ASA 4: a patient with an incapacitating disease that is a constant threat to life (CHF, renal failure) ASA 5: a moribund patient not expected to survive 24 hrs. (ruptured aneurysm) ASA 6: a declared brain- patient whose organs are being harvested. For emergent operations, add the letter E after the classification Mallampati Classification Grade 2 Sedation Plan Analgesia, Amnesia, Plan communicated to team members, Discussed options with p atient/fam, Discussed risks with patient/fam The patient is an appropriate candidate to undergo the planned procedure, sedation, and anesthesia. The patient immediately re-assessed prior to indication. JENNA QUIÑONES JR, MD Jul 08, 2021 11:29
[2021-07-08] MEDS ORDERED: ADENOSINE 6 MG/2 ML (ADENOCARD) VIAL IV ONE (11:32)
[2021-07-08] MEDS ORDERED: NS (IVPB) 250 ML ONE (11:32)
[2021-07-08] MEDS ORDERED: PATIENT MAY USE OWN MEDS, ALL PO SCH (12:30)
[2021-07-08] MEDS ORDERED: NS IV 1000 ML 1,000 ML IV SCH (12:30)
--- NOTE | 2021-07-08 17:01 | Cardiac Cath Report ---
CARDIAC CATHETERIZATION DATE OF PROCEDURE: 07/08/2021 INDICATION: Coronary artery disease with other specified angina. HISTORY: The patient is a 60 year old male with a known history of coronary artery disease. He normally follows with one of my partners. He underwent a cardiac catheterization in Feb, 2021 that did not show any coronary artery disease requiring revascularization. However, he has had persistent exertional chest discomfort consistent with angina. He came to see me for a second opinion in the office. I reviewed the previous angiogram and he appeared to have significant disease in the distal left main coronary artery. Therefore, he is referred for flow measurements and intravascular ultrasound of the distal left m ain coronary artery. PROCEDURES PERFORMED: 1. Diagnostic [place] coronary angiography. 2. Fractional flow reserve measurement of distal left main coronary artery. 3. Intravascular ultrasound of left main coronary artery. PROCEDURE DESCRIPTION: After informed consent and in the fasting state, left heart catheterization was performed through the right radial artery utilizing a 6 [place] system by percutaneous approach. A 6 [place] CLS 3.5 guide catheter was utilized for the procedure. The catheter was exchanged over a guidewire. RESULTS: HEMODYNAMICS: The aortic pressure was 120/63 mmHg. The aortic valve was not crossed. CORONARY ANGIOGRAPHY: Left main coronary artery: The left main coronary artery was the only vessel studied. There appeared to be a 30% stenosis in the ostium and a 70% stenosis distally. FRACTIONAL FLOW RESERVE: Fractional flow reserve was carried out on the distal left main coronary artery through the 6 [place] CLS 3.5 guide catheter. Once the system was normalized, the stenosis was crossed with a [place] FFR wire which was placed in the left circumflex coronary artery. The initial reading was 0.91. 96 mcg of intracoronary adenosine was then administered. The minimum FFR was 0.82. This is not considered hemodynamically significant. INTRAVASCULAR ULTRASOUND: Intravascular ultrasound was carried on the left main coronary artery through the same 6 [place] CLS 3.5 guide catheter with a [employer] intravascular ultrasound probe. Sequential measurements were obtained throughout the course of the vessel. The diameter of the ostium measured 4 x 4.4 mm. A reference section in the proximal segment that appeared to be free of significant disease measured 5 x 5.3 mm in diameter. The mid segment had moderate plaque and the diameter measured 4 x 4.6 mm. The distal segment which was the area in question had a diameter of 4.5 x 6.1 mm. This does not translate to any lesion greater than 70% in luminal narrowing. IMPRESSION: 1. The distal left main coronary artery contained a 70% stenosis by angiography. However, fractional flow reserve measurements and intravascular ultrasound revealed that this is most likely not an obstructive, hemodynamically significant lesion. RECOMMENDATION: 1. Continue aggressive medical therapy. There is no indication for revascularization of the left main coronary artery at this point in time. Certain portions of this document may have been dictated utilizing voice recognition technology. Inherent to this technology, typographical and grammatical errors may exist. As much as I am diligent to identify and correct these mistakes, some errors may remain in the document. JENNA QUIÑONES JR, MD Jul 08, 2021 17:01
== END 2021-07-08 15:35 | disposition home or self-care (01) ==
LOC: CATH 09:59 → SDC 12:33 → CATH 15:35
PROVIDERS: ATTEND Internal Medicine Cardiovascular Disease
DX: I25.119 Atherosclerotic heart disease of native coronary artery with unspecified angina pectoris (principal); I73.9 Peripheral vascular disease, unspecified; I42.9 Cardiomyopathy, unspecified; I11.0 Hypertensive heart disease with heart failure; I50.42 Chronic combined systolic (congestive) and diastolic (congestive) heart failure; I27.20 Pulmonary hypertension, unspecified; E78.2 Mixed hyperlipidemia; I65.23 Occlusion and stenosis of bilateral carotid arteries; J44.9 Chronic obstructive pulmonary disease, unspecified; E11.9 Type 2 diabetes mellitus without complications; F17.210 Nicotine dependence, cigarettes, uncomplicated; E66.9 Obesity, unspecified; G47.33 Obstructive sleep apnea (adult) (pediatric); Z68.38 Body mass index [BMI] 38.0-38.9, adult; Z79.4 Long term (current) use of insulin; Z79.899 Other long term (current) drug therapy; Z79.82 Long term (current) use of aspirin
CPT/HCPCS: 36430; 82947; 92978; 93454; 93571; C1753; C1769; C1887

== ENCOUNTER → 2021-08-17 | Outpatient (CLI) | payer MEDICARE, MEDICAID ==
[~2021-08-17] MED LIST changes: +GBPN600T PO; +ISOS60TA63 PO; +MULT-1136 PO; +NITR0.4T39 SL
== END ==
LOC: LABNPT 06:30
PROVIDERS: ATTEND Nurse Practitioner Family
DX: Z01.89 Encounter for other specified special examinations (principal); Z20.822 Contact with and (suspected) exposure to COVID-19
CPT/HCPCS: 87635

== ENCOUNTER → 2021-11-29 | Outpatient (RCR) | payer MEDICARE, MEDICAID ==
[~2021-11-29] MED LIST changes: +MONT-40 PO; -MONT10TA32 PO
== END | disposition home or self-care (01) ==
LOC: CR 11-08 09:13
PROVIDERS: ATTEND Internal Medicine Cardiovascular Disease
DX: Z29.8 Encounter for other specified prophylactic measures (principal); I25.119 Atherosclerotic heart disease of native coronary artery with unspecified angina pectoris
CPT/HCPCS: 93798

== ENCOUNTER 2021-12-20 09:30 | Outpatient (RCR) | payer MEDICARE, MEDICAID | END 2021-12-27 | disposition home or self-care (01) | LOC: CR 09:30 | PROVIDERS: ATTEND Internal Medicine Cardiovascular Disease | DX: Z29.8 Encounter for other specified prophylactic measures (principal); I25.119 Atherosclerotic heart disease of native coronary artery with unspecified angina pectoris | CPT/HCPCS: 93798 ==

== ENCOUNTER 2021-12-31 09:26 | Outpatient (RCR) | payer MEDICARE, MEDICAID | END 2022-01-27 | disposition home or self-care (01) | LOC: CR 09:26 | PROVIDERS: ATTEND Internal Medicine Cardiovascular Disease | DX: Z29.8 Encounter for other specified prophylactic measures (principal); I25.119 Atherosclerotic heart disease of native coronary artery with unspecified angina pectoris | CPT/HCPCS: 93798 ==

== ENCOUNTER 2022-03-01 10:20 | Inpatient (IN) | payer MEDICARE, MEDICAID ==
[2022-03-01] VITALS (15 sets, daily range): BP systolic 113–154; BP diastolic 58–79
[~2022-03-01] VITALS: Ht 177.8 cm; Wt 128.8 kg
[~2022-03-01 10:20] MED LIST changes: +OMEP20TA56 PO; -OMEP20TA7 PO
[2022-03-01 10:55] LABS: ABG BASE EXCESS 11.1 MMOL/L (-2.5-2.5); ABG OXYGEN SATURATION 96 % (94-100); ABG PO2 86 MMHG (79-93)
[2022-03-01] MEDS ORDERED: cefTRIAXone 1 GM PRE-MIX 50 ML IV ONE (11:00)
[2022-03-01 11:04] LABS: ABG PCO2 80 MMHG (35-45); ABG TCO2 40.3 MMOL/L (21.0-31.0)
[2022-03-01 11:05] LABS: ALLENS TEST POSITIVE; INSPIRED O2 4 LITERS; VENTILATOR NO
[2022-03-01 11:07] LABS: BASOPHILS % (AUTO) 1 % (0-10); EOSINOPHILS # (AUTO) 0.2 10^3/uL (0.0-0.3); EOSINOPHILS % (AUTO) 4 % (0-10); HEMATOCRIT 54 % (40-54); HEMOGLOBIN 16.5 g/dL (13.3-17.7); LYMPHOCYTES # (AUTO) 1.3 10^3/uL (1.0-4.0); LYMPHOCYTES % (AUTO) 30 % (12-44); MEAN CORPUSCULAR HEMOGLOBIN 28 pg (25-34); MEAN CORPUSCULAR HGB CONC 31 g/dL (32-36); MEAN CORPUSCULAR VOLUME 91 fL (80-99); MEAN PLATELET VOLUME 9.5 fL (9.0-12.2); MONOCYTES # (AUTO) 0.3 10^3/uL (0.0-1.0); MONOCYTES % (AUTO) 8 % (0-12); NEUTROPHILS # (AUTO) 2.4 10^3/uL (1.8-7.8); NEUTROPHILS % (AUTO) 58 % (42-75); PLATELET COUNT 141 10^3/uL (130-400); WHITE BLOOD COUNT 4.2 10^3/uL (4.3-11.0)
[2022-03-01 11:12] LABS: INR 1.1 (0.8-1.4); PROTHROMBIN TIME PATIENT 14.4 SEC (12.2-14.7)
[2022-03-01] MEDS ORDERED: methylPREDNISolone 125 MG (Solu-MEDROL) VIAL IVP ONE (11:15)
[2022-03-01] MEDS ORDERED: ASPIRIN 81 MG CHEW (CHILDREN'S ASA) PO ONE (11:15)
[2022-03-01 11:21] LABS: ALBUMIN 3.4 GM/DL (3.2-4.5); BILIRUBIN,TOTAL 0.5 MG/DL (0.1-1.0); CALCIUM 8.6 MG/DL (8.5-10.1); CREATININE SERUM 1.07 MG/DL (0.60-1.30); TOTAL PROTEIN 6.5 GM/DL (6.4-8.2)
[2022-03-01] MEDS ORDERED: RT-ALBUTEROL/IPRATROPIUM 3 ML (DUONEB) VIAL INH ONE (11:30)
--- NOTE | 2022-03-01 11:30 | ED Respiratory ---
General Chief Complaint: Respiratory Problems Stated Complaint: LOW O2 Nursing Triage Note: has been being seen for what started as sinus issues last week. Source: patient Exam Limitations: no limitations History of Present Illness Date Seen by Provider: March 01, 2022 Time Seen by Provider: 11:27 Initial Comments Patient is a 61-year-old male with a history of COPD, coronary artery disease, CHF who presents ED with shortness of breath and cough. Symptoms over the past 3 days. Noted his oxygen level in the 70s at home. Increased his oxygen from 4 L to 5 L. Patient does wear BiPAP at night. Reports mucus production with his cough. Shortness of breath with exertion. Denies of any increased leg swelling. Does take Lasix 80 mg daily. Denies any fever, vomiting, diarrhea, headache, visual changes. Patient oxygen level was 84% on arrival. Was placed on 5 L and was given DuoNeb breathing treatment. Patient has been using his nebulizer treatments at home. Denies of any specific chest pain, abdominal pain, headache, dizziness, visual changes, sore throat, dysuria. Allergies and Home Medications Allergies Coded Allergies: diclofenac (Verified Allergy, Intermediate, SWELLING, 06/15/17) Patient Home Medication List Home Medication List Reviewed: Yes Albuterol Sulfate (Ventolin Hfa) 18 Gm Hfa.aer.ad, 1 PUFF INH Q4H PRN for SHORTNESS OF BREATH, (Reported) Entered as Reported by: WALE PERRY on 03/13/20 1828 Aspirin (Aspirin) 81 Mg Tab.chew, 81 MG PO DAILY, (Reported) Entered as Reported by: LESLEE MALONEY on 08/07/17 1154 Clopidogrel Bisulfate (Clopidogrel) 75 Mg Tablet, 75 MG PO DAILY, (Reported) Entered as Reported by: CARLO RIVERA on 05/12/20 1036 Fluticasone/Salmeterol (Advair 250-50 Diskus) 1 Each Blst.w.dev, 1 EACH IH BID, (Reported) Entered as Reported by: EVERETTE DAILEY on 10/13/20 0738 Furosemide (Lasix) 80 Mg Tablet, 80 MG PO DAILY, (Reported) Entered as Reported by: ADÁN MARSHALL on 03/16/21 0809 Gabapentin (Gabapentin) 600 Mg Tablet, 600 MG PO TID, (Reported) Entered as Reported by: JAYDEN SEBASTIAN on 07/08/21 110 Insulin Aspart (Novolog Flexpen) 300 Units/3 Ml Solution, 10 UNITS SQ AC, (Reported) Entered as Reported by: ADÁN MARSHALL on 03/16/21 0809 Insulin Determir (Levemir) 1,000 Units/10 Ml Soln, 30 UNITS SQ HS, (Reported) Entered as Reported by: ADÁN MARSHALL on 03/16/21 0809 Isosorbide Mononitrate (Isosorbide Mononitrate ER) 60 Mg Tab, 60 MG PO DAILY, (Reported) Entered as Reported by: JAYDEN SEBASTIAN on 07/08/21 110 Metoprolol Succinate (Metoprolol Succinate) 25 Mg Tab.er.24h, 25 MG PO DAILY, (Reported) Entered as Reported by: JAYDEN SEBASTIAN on 07/08/21 110 Montelukast Sodium (Montelukast Sodium) 10 Mg Tablet, 10 MG PO DAILY, (Reported) Entered as Reported by: EVERETTE DAILEY on 10/13/20 0738 Multivitamin (Multivitamin) 1 Each Tablet, 1 EACH PO DAILY, (Reported) Entered as Reported by: JAYDEN SEBASTIAN on 07/08/21 110 Nitroglycerin (Nitroglycerin) 0.4 Mg Tab.subl, 0.4 MG SL UD PRN for CHEST PAIN, (Reported) Entered as Reported by: JAYDEN SEBASTIAN on 07/08/21 110 Omeprazole (Omeprazole) 20 Mg Tablet.dr, 20 MG PO DAILY, (Reported) Entered as Reported by: EVERETTE DAILEY on 10/13/20 0738 Phenytoin Sodium Extended (Phenytoin Sodium Extended) 100 Mg Capsule, 200 MG PO BID, (Reported) Entered as Reported by: SONAM PLAZA on 10/14/15 0956 Potassium Chloride (Potassium Chloride) 20 Meq Tablet.er, 20 MEQ PO DAILY, (Reported) Entered as Reported by: ADÁN MARSHALL on 03/16/21 0809 Rosuvastatin Calcium (Rosuvastatin Calcium) 20 Mg Tablet, 20 MG PO HS, (Reported) Entered as Reported by: JAYDEN SEBASTIAN on 07/08/21 110 Review of Systems Review of Systems Constitutional: No chills, No diaphoresis, No malaise, No weakness EENTM: No blurred vision, No double vision, No mouth pain, No mouth swelling, No nose pain, No throat pain, No throat swelling Respiratory: cough, short of breath, wheezing Gastrointestinal: No abdominal pain, No diarrhea, No nausea, No vomiting Genitourinary: No discharge Musculoskeletal: No back pain, No joint pain Skin: No change in color, No change in hair/nails All Other Systems Reviewed Negative Unless Noted: Yes Past Gckbvtp-Dcpcra-Iaazgx Hx Immunizations Up To Date Tetanus Booster (TDap): Less than 5yrs PED Vaccines UTD: Yes Seasonal Allergies Seasonal Allergies: No Past Medical History Surgeries: Yes (Loop recorder-removed, Brain surgery, Left foot, Stents to emmie legs, ) Cardiac, Neurological, Orthopedic Respiratory: Yes (COPD, SLEEP APNEA, BIPAP) Sleep Apnea, COPD Currently Using CPAP: No Currently Using BIPAP: Yes Cardiac: Yes (BILATERAL SUPERFICAL FEMORAL ARTERY STENTS;CAROTID & VERTEBRAL ARTERY DZ) Chronic Edema/Swelling, Coronary Artery Disease, High Cholesterol, Hypertension, Peripheral Vascular Neurological: Yes (CLAW HAMMER TO HEAD-- INJURY 1982) Seizure Disorder, Traumatic Brain Injury Reproductive Disorders: No Sexually Transmitted Disease: No HIV/AIDS: No Genitourinary: No Gastrointestinal: Yes (HEPATITIS A 06/27/20) Gastroesophageal Reflux, Hepatitis, Polyps Musculoskeletal: Yes (BILATERAL CARPAL TUNNEL RELEASE) Arthritis, Chronic Back Pain Endocrine: Yes (BORDERLINE DIABETES, NOT TAKING MEDS) HEENT: Yes Loss of Vision: Bilateral Hearing Impairment: Denies Cancer: No Psychosocial: Yes (RELATED TO BREATHING ISSUES-RACING HELMET/SWIMMING) Anxiety Integumentary: Yes (DRY PATCHES ON ELBOW AND HANDS, scaly rash on feet) Blood Disorders: No Adverse Reaction/Blood Tranf: No Family Medical History Cardiovascular disease Colon cancer FH: cancer 19 FATHER 19 MOTHER No Pertinent Family Hx PAST SURGICAL HISTORY: -LOOP RECORDER PLACED AND REMOVED -RIGHT SUPERFICIAL FEMORAL ARTERY STENT 03/2019 -LEFT SUPERFICIAL FEMORALY ARTERY STENT -BILATERAL CARPAL TUNNEL RELEASE -SURGERY DUE TO HEAD TRAUMA--"CLAW HAMMER" TO HEAD 1982 -LEFT TOE SURGERY -CARDIAC CATH 2017--MODERATE DISEASE, NO INTERVENTION ADDITIONAL PMH: -EXTENSIVE ASVD WITH CORONARY ARTERY DISEASE ( NO INTERVENTION), CAROTID ARTERY DISEASE, AND VERTEBRAL ARTERY DISEASE, WITH LEFT VERTEBRAL ARTERY WITH SEVERE STENOSIS, HAD HAS HAD BILATERAL LOWER EXTREMITY STENTS. Physical Exam Vital Signs - First Documented 03/01/22 10:35 Temp 36.6 Pulse 95 Resp 22 B/P (MAP) 130/72 (91) Pulse Ox 92 O2 Delivery Nasal Cannula O2 Flow Rate 4.00 Capillary Refill : Height: 6'0" Weight: 258lbs. 0.0oz. 117.549643pr; 38.11 BMI Method:Stated General Appearance: WD/WN, no apparent distress Eyes: Bilateral Eye Normal Inspection, Bilateral Eye PERRL, Bilateral Eye EOMI HEENT: PERRL/EOMI, normal ENT inspection, TMs normal Neck: non-tender, full range of motion, supple Respiratory: chest non-tender, respiratory distress, wheezing Cardiovascular: regular rate, rhythm, no edema, no gallop Gastrointestinal: normal bowel sounds, non tender, soft, no organomegaly Extremities: normal range of motion, non-tender, normal inspection, no pedal edema Neurologic/Psychiatric: trailer assembler II-XII nml as tested, no motor/sensory deficits, alert, normal mood/affect, oriented x 3 Skin: normal color, warm/dry Focused Exam Lactate Level 03/01/22 10:45: Lactic Acid Level 1.86 Lactic Acid Level Laboratory Tests Test 03/01/22 10:45 Lactic Acid Level 1.86 MMOL/L (0.50-2.00) Progress/Results/Core Measures Suspected Sepsis SIRS Temperature: Pulse: 84 Respiratory Rate: 21 Laboratory Tests 03/01/22 10:45: White Blood Count 4.2L Blood Pressure 113 /73 Mean: 03/01/22 10:45: Lactic Acid Level 1.86 Laboratory Tests 03/01/22 10:45: Creatinine 1.07, INR Comment 1.1, Platelet Count 141, Total Bilirubin 0.5 Results/Orders Lab Results Laboratory Tests Test 03/01/22 10:45 03/01/22 10:50 03/01/22 11:17 Range/Units White Blood Count 4.2 L 4.3-11.0 10^3/uL Red Blood Count 5.87 H 4.30-5.52 10^6/uL Hemoglobin 16.5 13.3-17.7 g/dL Hematocrit 54 40-54 % Mean Corpuscular Volume 91 80-99 fL Mean Corpuscular Hemoglobin 28 25-34 pg Mean Corpuscular Hemoglobin Concent 31 L 32-36 g/dL Red Cell Distribution Width 16.0 H 10.0-14.5 % Platelet Count 141 130-400 10^3/uL Mean Platelet Volume 9.5 9.0-12.2 fL Immature Granulocyte % (Auto) 0 % Neutrophils (%) (Auto) 58 42-75 % Lymphocytes (%) (Auto) 30 12-44 % Monocytes (%) (Auto) 8 0-12 % Eosinophils (%) (Auto) 4 0-10 % Basophils (%) (Auto) 1 0-10 % Neutrophils # (Auto) 2.4 1.8-7.8 10^3/uL Lymphocytes # (Auto) 1.3 1.0-4.0 10^3/uL Monocytes # (Auto) 0.3 0.0-1.0 10^3/uL Eosinophils # (Auto) 0.2 0.0-0.3 10^3/uL Basophils # (Auto) 0.0 0.0-0.1 10^3/uL Immature Granulocyte # (Auto) 0.0 0.0-0.1 10^3/uL Prothrombin Time 14.4 12.2-14.7 SEC INR Comment 1.1 0.8-1.4 Activated Partial Thromboplast Time 28 24-35 SEC Sodium Level 136 135-145 MMOL/L Potassium Level 4.0 3.6-5.0 MMOL/L Chloride Level 94 L 98-107 MMOL/L Carbon Dioxide Level 34 H 21-32 MMOL/L Anion Gap 8 5-14 MMOL/L Blood Urea Nitrogen 21 H 7-18 MG/DL Creatinine 1.07 0.60-1.30 MG/DL Estimat Glomerular Filtration Rate 79 BUN/Creatinine Ratio 20 Glucose Level 290 H 70-105 MG/DL Lactic Acid Level 1.86 0.50-2.00 MMOL/L Calcium Level 8.6 8.5-10.1 MG/DL Corrected Calcium 9.1 8.5-10.1 MG/DL Total Bilirubin 0.5 0.1-1.0 MG/DL Aspartate Amino Transf (AST/SGOT) 15 5-34 U/L Alanine Aminotransferase (ALT/SGPT) 26 0-55 U/L Alkaline Phosphatase 137 H 40-136 U/L Troponin I 0.083 H <0.028 NG/ML B-Type Natriuretic Peptide 77.0 <100.0 PG/ML Total Protein 6.5 6.4-8.2 GM/DL Albumin 3.4 3.2-4.5 GM/DL Blood Gas Puncture Site LEFT RADIAL Blood Gas Patient Temperature 37.0 Arterial Blood pH 7.30 *L 7.37-7.43 Arterial Blood Partial Pressure CO2 80 *H 35-45 MMHG Arterial Blood Partial Pressure O2 86 79-93 MMHG Arterial Blood HCO3 38 H 23-27 MMOL/L Arterial Blood Total CO2 40.3 *H 21.0-31.0 MMOL/L Arterial Blood Oxygen Saturation 96 94-100 % Arterial Blood Base Excess 11.1 H -2.5-2.5 MMOL/L Kevin Test POSITIVE Blood Gas Ventilator Setting NO Blood Gas Inspired Oxygen 4 LITERS Influenza Type A (RT-PCR) Not Detected Not Detecte Influenza Type B (RT-PCR) Not Detected Not Detecte SARS-CoV-2 RNA (RT-PCR) Not Detected Not Detecte My Orders Orders - EVELIO CHU PA Cbc With Automated Diff (03/01/22 10:59) Comprehensive Metabolic Panel (03/01/22 10:59) Blood Culture (03/01/22 10:59) Sputum Culture (03/01/22 10:59) Urinalysis (03/01/22 10:59) Urine Culture (03/01/22 10:59) Protime With Inr (03/01/22 10:59) Partial Thromboplastin Time (03/01/22 10:59) Chest 1 View, Ap/Pa Only (03/01/22 10:59) Ed Iv/Invasive Line Start (03/01/22 10:59) Troponin I [place] (03/01/22 10:59) Vital Signs Adult Sepsis Patie Q15M (03/01/22 10:59) O2 (03/01/22 10:59) Lactic Acid Analyzer (03/01/22 10:59) Influenza A And B By Pcr (03/01/22 10:59) Ceftriaxone 1 Gm Pre-Mix (Rocephin 1 Gm (03/01/22 11:00) Covid 19 Inhouse Test (03/01/22 10:59) Bnp [place] (03/01/22 11:01) Aspirin Chewable Tablet (Baby Aspirin Ch (03/01/22 11:15) Methylprednisolone Sod Succ (Solu-Medrol (03/01/22 11:15) Albuterol/Ipra Inhalation Soln (Duoneb I (03/01/22 11:30) Svn Small Volume Nebulizer (03/01/22 11:16) Procalcitonin (Pct) (03/01/22 12:29) Ed Admission (Communication) (03/01/22 12:37) Medications Given in ED Current Medications Medications Dose Ordered Sig/Angella Route Start Time Stop Time Status Last Admin Dose Admin Aspirin 324 mg ONCE ONCE PO 03/01/22 11:15 03/01/22 11:16 DC 03/01/22 11:09 324 MG Ceftriaxone Sodium/Dextrose 50 ml @ 100 mls/hr ONCE ONCE IV 03/01/22 11:00 03/01/22 11:29 DC 03/01/22 11:10 100 MLS/HR Methylprednisolone Sodium Succinate 125 mg ONCE ONCE IVP 03/01/22 11:15 03/01/22 11:16 DC 03/01/22 11:09 125 MG Vital Signs/I&O 03/01/22 03/01/22 03/01/22 03/01/22 10:35 10:37 10:40 10:57 Temp 36.6 Pulse 95 Resp 22 B/P (MAP) 130/72 (91) Pulse Ox 92 94 96 O2 Delivery Nasal Cannula Nasal Cannula Nasal Cannula Nasal Cannula O2 Flow Rate 4.00 4.00 4.00 4.00 03/01/22 11:05 Pulse 84 Resp 21 Pulse Ox 98 O2 Flow Rate 45.00 Capillary Refill : Departure Communication (Admissions) Time/Spoke to Admitting Phy: 12:37 Patient presents ED with hypoxia. Patient initial oxygen 84%. Increased to 5 L on nasal cannula. Patient blood gas show pH 7.30 and hypercapnia. Patient was placed on BiPAP. White blood count 4.2. Slight elevated troponin 0.083. Known coronary artery disease and CHF. Patient currently follows Dr. Weber. COVID influenza negative. Chest x-ray negative for pneumonia. Was given Solu-Medrol 125 and Rocephin here. DuoNeb breathing treatment with some improvement. Slight elevated troponin was discussed with Dr. Weber who recommends 6-hour troponin. Patient was given aspirin. Currently on Lasix and does take blood pressure medication. Continue regimen. Patient will be admitted to the ICU under Dr. Fernandez with discussing patient. Concerning for COPD exacerbation. Impression Primary Impression: Respiratory failure Additional Impressions: COPD exacerbation Troponin level elevated Disposition: ADMITTED INPATIENT Condition: Stable Admissions Decision to Admit Reason: Admit from ER (General) Decision to Admit/Date: March 01, 2022 Time/Decision to Admit Time: 12:36 Departure-Patient Inst. Referrals: [facility] [place] (PCP) Primary Care Physician JENNA MATHEWS (Family) Primary Care Physician EVELIO CHU March 01, 2022 11:30
--- NOTE | 2022-03-01 12:12 | Diagnostic Imaging Report ---
INDICATION: Shortness of breath. TIME OF EXAM: 12:03 p.m. COMPARISON: Correlation is made with prior chest from 05/14/2021. FINDING: The heart size is normal. The pulmonary vascularity is unremarkable. The lungs are clear. No infiltrate, effusion or pneumothorax is detected. IMPRESSION: No acute cardiopulmonary process is detected. Dictated by: Dictated on workstation # [id number]
[2022-03-01] MEDS ORDERED: ACETAMINOPHEN 325 MG TABLET PO PRN (13:45)
[2022-03-01] MEDS ORDERED: ONDANSETRON 4 MG (ZOFRAN) ORAL DISSOLVE TAB PO PRN (13:45)
[2022-03-01] MEDS ORDERED: diphenhydrAMINE 25 MG TAB (BENADRYL) PO PRN (13:45)
[2022-03-01] MEDS ORDERED: ONDANSETRON 4 MG/2 ML (SDV) Z0FRAN IV PRN (13:45)
[2022-03-01] MEDS ORDERED: ALPRAZolam 0.25 MG (XANAX) TAB PO PRN (13:45)
[2022-03-01] MEDS ORDERED: MELATONIN 3 MG TABLET PO PRN (13:45)
[2022-03-01] MEDS ORDERED: LACTULOSE SYRUP 10GM/15ML (ENULOSE) 30ML UDC PO PRN (13:45)
[2022-03-01] MEDS ORDERED: CALCIUM CARBONATE 500 MG (TUMS) TAB.CHEW PO PRN (13:45)
[2022-03-01] MEDS ORDERED: morphine INJ 4 MG/ML 1 ML (VIAL/SYRINGE) IV PRN (13:45)
[2022-03-01] MEDS ORDERED: inSUlin (REGULAR) HUMAN 1 UNIT/0.01 ML (CHARGE PER UNIT) SC PRN (13:45)
[2022-03-01] MEDS ORDERED: diphenhydrAMINE 50 MG/ML INJ (BENADRYL) IVP PRN (13:45)
[2022-03-01] MEDS ORDERED: BISACODYL 10 MG SUPP (DULCOLAX) PR PRN (13:45)
[2022-03-01] MEDS ORDERED: polyethylene glycoL POWDER 17 GM (MIRALAX) PACK PO PRN (13:45)
[2022-03-01] MEDS ORDERED: MILK OF MAGNESIA 400 MG/5 ML 30 ML UDC PO PRN (13:45)
[2022-03-01] MEDS ORDERED: ANTACID SUSP 30 ML UDC (MYLANTA) PO PRN (13:45)
[2022-03-01 14:20] LABS: ABG BASE EXCESS 9.2 MMOL/L (-2.5-2.5); ABG OXYGEN SATURATION 97 % (94-100); ABG PO2 98 MMHG (79-93); ABG TCO2 39.9 MMOL/L (21.0-31.0)
[2022-03-01 14:21] LABS: ABG PH 7.21 (7.37-7.43)
[2022-03-01 14:22] LABS: ABG PCO2 96 MMHG (35-45); ALLENS TEST POSITIVE; INSPIRED O2 45%; PATIENT TEMP 37.2; VENTILATOR NO
[2022-03-01] MEDS: CEFEPIME INJECTION 1,000 MG in NS (IVPB) 50 ML IV SCH ×2 (14:35→20:20)
[2022-03-01] MEDS: ENOXAPARIN 40 MG/0.4 ML (LOVENOX) SYR SC SCH (14:35)
--- NOTE | 2022-03-01 15:01 | Tele-ICU Progress Note ---
Subjective Date Seen by a Provider: March 01, 2022 Time Seen by a Provider: 14:15 Subjective/Events-last exam This virtual visit was conducted using real time audio/video. Thank you for asking us to see this patient for respiratory insufficiency due to AECOPD. Also elev troponin 0.083 PMH: COPD/homeO2 at 4 LPM, LAURY on BiPAP, CAD, PAD w stents, DM2, CHF, HL, TBI/seizures. SH: smoking history : former. FH: Non-contributory ROS:as in HPI. PE: Obese. VSS. O2 sat 95% on BIPAP 18/8, 45%. HEENT: No obvious masses, adenopathy or JVD. Chest: clear to auscultation. CV: RRR S1 S2 No murmur or added sounds. Abd: Non-tender. Bowel sounds Y. : Unremarkable. Hager N. AIRCRAFT COMMUNICATOR/psychiatric: Grossly intact. No obvious focal findings. Extremities: No edema. Capillary refill < 3 seconds. Skin: unremarkable. Results: Elevated BUN 21, gluc 290, trop 0.083. B.21/96/98 on 45%. CXR: Hyperinflated, no infilts. Available chart/ vitals / labs / images reviewed. Video assessment done using teleICU camera, rest of exam as per RN. A/P: Respiratory insufficiency: Continue present management with BiPAP, Duonebs, Medrol Monitor for increasing oxygenation needs and/or need for intubation. Critical Care: critically ill patient. Cont. Cefipime, ASA, Plavix, SSI, regular insulin, Lovenox. Discussed with CECILIA Llanes. Asked RN to reach out to eICU if any questions or concerns later. Time spent with patient/coordination of care with other health professionals (mins): 30 Sepsis Event Evaluation Height, Weight, BMI Height: 6'0" Weight: 258lbs. 0.0oz. 117.576736xd; 38.71 BMI Method:Stated Focused Exam Lactate Level 03/01/22 10:45: Lactic Acid Level 1.86 Exam Exam Patient acknowledged, consented, and participated in this virtual visit which was conducted using real time audio/video Vital Signs Date Time Temp Pulse Resp B/P (MAP) Pulse Ox O2 Delivery O2 Flow Rate FiO2 03/01/22 14:38 84 20 97 45.00 03/01/22 14:00 37.2 03/01/22 14:00 68 25 126/66 (86) 96 03/01/22 13:30 71 16 133/64 (87) 94 03/01/22 13:20 Nasal Cannula 4.00 03/01/22 13:15 68 20 138/70 95 NIV Bilevel 03/01/22 11:05 84 21 98 45.00 03/01/22 10:57 96 Nasal Cannula 4.00 03/01/22 10:40 94 Nasal Cannula 4.00 03/01/22 10:37 Nasal Cannula 4.00 03/01/22 10:35 36.6 95 22 130/72 (91) 92 Nasal Cannula 4.00 Height & Weight Height: 6'0" Weight: 258lbs. 0.0oz. 117.514789wi; 38.71 BMI Method:Stated General Appearance: Mild Distress Capillary Refill: Less Than 3 Seconds Peripheral Pulses: 1+ Dorsalis Pedis (R) (See free text.), 1+ Left Dors-Pedis (L) Gastrointestinal: normal bowel sounds, non tender, soft, no organomegaly Results Lab Laboratory Tests 03/01/22 10:45 Assessment/Plan Assessment/Plan See free text Critical Care: Critically Ill Patient ROBBI SALEH MD March 01, 2022 15:01
[2022-03-01] MEDS ORDERED: RT-ALBUTEROL/IPRATROPIUM 3 ML (DUONEB) VIAL INH PRN (15:45)
[2022-03-01] MEDS: inSUlin ASPART (NovoLOG) 1 UNIT/0.01 ML (CHARGE PER UNIT) SC SCH ×2 (16:17→20:20)
[2022-03-01] MEDS: methylPREDNISolone 40 MG/ML (Solu-MEDROL) VIAL IV SCH ×2 (18:13→23:27)
[2022-03-01] MEDS: RT-ALBUTEROL/IPRATROPIUM 3 ML (DUONEB) VIAL INH SCH ×2 (18:48→22:08)
[2022-03-01] MEDS: SENNOSIDES 8.6 MG (SENOKOT) TAB PO SCH (20:20)
[2022-03-01] MEDS: DOCUSATE SODIUM 100 MG (COLACE) CAP PO SCH (20:20)
[2022-03-01] MEDS: PHENYTOIN 100 MG (DILANTIN) CAP PO SCH (21:54)
[2022-03-01] MEDS: GABAPENTIN 600 MG (NEURONTIN) TAB PO SCH (21:54)
[2022-03-01] MEDS: ROSUVASTATIN 20 MG (CRESTOR) TABLET PO SCH (21:54)
[2022-03-01] MEDS: RT--FLUTICASONE/SALMETEROL 113-14 (AIRDUO RespiCLICK) IH SCH (22:24)
[2022-03-02] VITALS (18 sets, daily range): BP systolic 120–157; BP diastolic 59–83
[2022-03-02] MEDS: RT-ALBUTEROL/IPRATROPIUM 3 ML (DUONEB) VIAL INH SCH ×6 (01:55→22:16)
[2022-03-02] MEDS: CEFEPIME INJECTION 1,000 MG in NS (IVPB) 50 ML IV SCH ×4 (02:31→20:12)
[2022-03-02 04:30] LABS: ABG BASE EXCESS 14.5 MMOL/L (-2.5-2.5); ABG OXYGEN SATURATION 98 % (94-100); ABG PO2 123 MMHG (79-93)
[2022-03-02 04:31] LABS: ABG PCO2 112 MMHG (35-45)
[2022-03-02 04:32] LABS: ABG TCO2 46.4 MMOL/L (21.0-31.0)
[2022-03-02 04:33] LABS: ALLENS TEST YES-POS; INSPIRED O2 45%; PATIENT TEMP 36.3; VENTILATOR NO
[2022-03-02 04:42] LABS: BASOPHILS % (AUTO) 0 % (0-10); EOSINOPHILS % (AUTO) 0 % (0-10); HEMATOCRIT 56 % (40-54); HEMOGLOBIN 16.7 g/dL (13.3-17.7); LYMPHOCYTES # (AUTO) 0.6 10^3/uL (1.0-4.0); LYMPHOCYTES % (AUTO) 10 % (12-44); MEAN CORPUSCULAR HEMOGLOBIN 28 pg (25-34); MEAN CORPUSCULAR HGB CONC 30 g/dL (32-36); MEAN CORPUSCULAR VOLUME 93 fL (80-99); MEAN PLATELET VOLUME 9.8 fL (9.0-12.2); MONOCYTES # (AUTO) 0.1 10^3/uL (0.0-1.0); MONOCYTES % (AUTO) 2 % (0-12); NEUTROPHILS # (AUTO) 4.7 10^3/uL (1.8-7.8); NEUTROPHILS % (AUTO) 87 % (42-75); PLATELET COUNT 140 10^3/uL (130-400); WHITE BLOOD COUNT 5.4 10^3/uL (4.3-11.0)
[2022-03-02 04:56] LABS: POTASSIUM 5.9 MMOL/L (3.6-5.0)
[2022-03-02 04:57] LABS: ALBUMIN 3.7 GM/DL (3.2-4.5)
[2022-03-02 04:58] LABS: CALCIUM 8.8 MG/DL (8.5-10.1)
[2022-03-02 04:59] LABS: TOTAL PROTEIN 6.9 GM/DL (6.4-8.2)
[2022-03-02 05:01] LABS: BILIRUBIN,TOTAL 0.3 MG/DL (0.1-1.0)
[2022-03-02 05:02] LABS: PHOSPHORUS 4.7 MG/DL (2.3-4.7)
[2022-03-02 05:03] LABS: CREATININE SERUM 1.09 MG/DL (0.60-1.30)
[2022-03-02 05:06] LABS: MAGNESIUM 2.4 MG/DL (1.6-2.4)
[2022-03-02] MEDS: methylPREDNISolone 40 MG/ML (Solu-MEDROL) VIAL IV SCH ×4 (05:48→23:13)
[2022-03-02] MEDS: inSUlin ASPART (NovoLOG) 1 UNIT/0.01 ML (CHARGE PER UNIT) SC SCH ×7 (05:48→21:53)
--- NOTE | 2022-03-02 05:57 | History & Physical-Hospitalist ---
History of Present Illness HPI/Chief Complaint CC: SOB HPI: This is a 61 yr old WM with known past medical history of end stage COPD. He presented to the ER with complaints of SOB. He was found to have pneumonia and exacerbation of COPD with CO2 narcosis. He did require BiPAP but this morning he decided he didn't want to use any BiPAP and he didn't want to be intu bated or resuscitated, so he is DNR and DNI. We will transfer to 4th floor and consult hospice. I did speak with him in depth about this and he agrees with the plan. Source: patient Exam Limitations: no limitations Date Seen 03/02/22 Time Seen by a Provider: 09:00 Attending Physician Naya Hernandez DO [facility] Referring Physician Date of Admission March 01, 2022 at 12:38 Home Medications & Allergies Home Medications Reviewed patient Home Medication Reconciliation performed by pharmacy medication reconciliations integration technician and/or nursing. Patients Allergies have been reviewed. Allergies Allergies Coded Allergies diclofenac (Verified Allergy, Intermediate, SWELLING, 06/15/17) Past Ctrfwgv-Mdruhw-Xwqnsj Hx Patient Social History Marrital Status: single Employed/Student: unemployed Tobacco Use?: Yes Tobacco type used: Cigarettes Smoking Status: Current Everyday Smoker Substance use?: Yes Substance type: Marijuana Alcohol Use?: No Pt feels they are or have been: No Immunizations Up To Date Date of Influenza Vaccine: Jul 30, 2020 First/Initial COVID19 Vaccinat: 01/22/2021 Second COVID19 Vaccination Jose: 2020 Tetanus Booster (TDap): Unknown Hepatitis B: Yes PED Vaccines UTD: Yes Date of Pneumonia Vaccine: Aug 10, 2015 Seasonal Allergies Seasonal Allergies: No Current Status Advance Directives: No Communicates: Verbally Primary Language: Spanish Preferred Spoken Language: Spanish Past Medical History Surgeries: Cardiac, Neurological, Orthopedic Sleep Apnea, COPD Currently Using CPAP: No Currently Using BIPAP: Yes Chronic Edema/Swelling, Coronary Artery Disease, High Cholesterol, Hypertension, Peripheral Vascular Seizure Disorder, Traumatic Brain Injury Sexually Transmitted Disease: No HIV/AIDS: No Gastroesophageal Reflux, Hepatitis, Polyps Arthritis, Chronic Back Pain Loss of Vision: Bilateral Hearing Impairment: Denies Anxiety Blood Disorders: No Adverse Reaction/Blood Tranf: No 1. LAURY 2. COPD 3. Tobaccoism 4. Seizure disorder- on dilantin 5. Chronic Headaches with chronic NSAID use 6. HTN Surgical Hx 1. Bilateral Carpal tunnel 2. Repair left second toe fracture 3. Tonsillectomy- childhood Family Medical History Cardiovascular disease Colon cancer FH: cancer 19 FATHER 19 MOTHER No Pertinent Family Hx PAST SURGICAL HISTORY: -LOOP RECORDER PLACED AND REMOVED -RIGHT SUPERFICIAL FEMORAL ARTERY STENT 03/2019 -LEFT SUPERFICIAL FEMORALY ARTERY STENT -BILATERAL CARPAL TUNNEL RELEASE -SURGERY DUE TO HEAD TRAUMA--"CLAW HAMMER" TO HEAD 1982 -LEFT TOE SURGERY -CARDIAC CATH 2017--MODERATE DISEASE, NO INTERVENTION ADDITIONAL PMH: -EXTENSIVE ASVD WITH CORONARY ARTERY DISEASE ( NO INTERVENTION), CAROTID ARTERY DISEASE, AND VERTEBRAL ARTERY DISEASE, WITH LEFT VERTEBRAL ARTERY WITH SEVERE STENOSIS, HAD HAS HAD BILATERAL LOWER EXTREMITY STENTS. Review of Systems Constitutional: see HPI, malaise, weakness EENTM: no symptoms reported Respiratory: cough, dyspnea on exertion, short of breath, wheezing Cardiovascular: no symptoms reported Gastrointestinal: no symptoms reported Genitourinary: no symptoms reported Musculoskeletal: no symptoms reported Skin: no symptoms reported Psychiatric/Neurological: No Symptoms Reported All Other Systems Reviewed Negative Unless Noted: Yes Physical Exam Physical Exam Vital Signs Vital Signs - First Documented 03/01/22 03/01/22 10:35 16:00 Temp 36.6 Pulse 95 Resp 22 B/P (MAP) 130/72 (91) Pulse Ox 92 O2 Delivery Nasal Cannula O2 Flow Rate 4.00 FiO2 45 Capillary Refill : Less Than 3 Seconds Height, Weight, BMI Height: 6'0" Weight: 258lbs. 0.0oz. 117.950080pq; 38.71 BMI Method:Stated General Appearance: No Apparent Distress, Anxious, Chronically ill Eyes: Right Eye Normal Inspection, Right Eye PERRL HEENT: PERRL/EOMI, Normal ENT Inspection, Pharynx Normal, Moist Mucous Membranes Neck: Full Range of Motion, Normal Inspection, Non Tender Respiratory: Chest Non Tender, No Accessory Muscle Use, No Respiratory Distress, Decreased Breath Sounds, Wheezing Cardiovascular: Regular Rate, Rhythm, No Edema, No Gallop, No JVD, No Murmur, Normal Peripheral Pulses Gastrointestinal: Normal Bowel Sounds, No Organomegaly, No Pulsatile Mass, Non Tender, Soft Back: Normal Inspection, No CVA Tenderness, No Vertebral Tenderness Extremity: Normal Capillary Refill, Normal Inspection, Normal Range of Motion, Non Tender, No Calf Tenderness, No Pedal Edema Neurologic/Psychiatric: Alert, Oriented x3, No Motor/Sensory Deficits, Normal Mood/Affect Skin: Normal Color, Warm/Dry Lymphatic: No Adenopathy Results Results/Procedures Labs Laboratory Tests 03/01/22 10:45 03/02/22 04:20 Patient resulted labs reviewed. Assessment/Plan Admission Diagnosis Assessment: Acute on chronic respiratory failure Hypercapnia Severe COPD end stage Oxygen dependent Current smoker CAD PVD Plan: DNR DO NOT INTUBATE Transfer to fourth floor Supportive care Admission Status: Inpatient Order (span 2 midnights) Reason for Inpatient Admission: Respiratory failure Diagnosis/Problems Diagnosis/Problems (1) COPD exacerbation Status: Acute NAYA HERNANDEZ DO March 02, 2022 05:57
[2022-03-02] MEDS ORDERED: MAGNESIUM 1 GM/100 ML IVPB 100 ML IV SCH (06:00)
[2022-03-02] MEDS ORDERED: KCL 20 MEQ TAB (K-DUR) PO SCH (06:00)
[2022-03-02] MEDS ORDERED: POTASSIUM CL 10MEQ/50ML IVPB 50 ML IV SCH (06:00)
--- NOTE | 2022-03-02 07:17 | Diagnostic Imaging Report ---
Indication: Shortness of breath. Comparison with 03/01/2022. FINDINGS: The lungs well-aerated and clear. Heart is not enlarged. No pneumothorax or pleural effusion. No bony abnormalities. IMPRESSION: Normal portable chest. Dictated by: Dictated on workstation # [id number]
[2022-03-02] MEDS: MONTELUKAST 10 MG (SINGULAIR) TAB PO SCH (08:24)
[2022-03-02] MEDS: CLOPIDOGREL 75 MG (PLAVIX) TABLET PO SCH (08:24)
[2022-03-02] MEDS: SENNOSIDES 8.6 MG (SENOKOT) TAB PO SCH ×2 (08:24→20:12)
[2022-03-02] MEDS: PHENYTOIN 100 MG (DILANTIN) CAP PO SCH ×2 (08:24→20:12)
[2022-03-02] MEDS: DOCUSATE SODIUM 100 MG (COLACE) CAP PO SCH ×2 (08:24→20:13)
[2022-03-02] MEDS: ASPIRIN 81 MG CHEW (CHILDREN'S ASA) PO SCH (08:24)
[2022-03-02] MEDS: GABAPENTIN 600 MG (NEURONTIN) TAB PO SCH ×3 (08:24→20:12)
--- NOTE | 2022-03-02 08:39 | Consultation-Cardiology ---
HPI-Cardiology Cardiology Consultation: Date of Consultation 03/02/22 Date of Admission 03/01/22 Attending Physician Naya Hernandez DO Admitting Physician [facility] Consulting Physician JENNA QUIÑONES JR, MD HPI: Time Seen by a Provider: 08:34 Chief Complaint: Reason for consultation: Coronary artery disease. I had the pleasure of seeing Suman in the intensive care unit at [facility] in [place], [place] today. He is well-known to me from the office. He has a history of coronary artery disease with previous stents with the most recent intervention being a drug-eluting stent to the ostium of the left main coronary artery and 3 drug-eluting stents to the right coronary artery for a c hronic total occlusion, peripheral vascular disease with previous stents in both legs, carotid and vertebral atherosclerosis without a previous stroke, hypertension, hyperlipidemia, type 2 diabetes mellitus, chronic obstructive pulmonary disease, cigarette smoking and obesity. He has chronic dyspnea on exertion and a chronic cough, presumably due to his chronic obstructive pulmonary disease with ongoing smoking. However, over the past 3-4 days prior to admission, he was having increasing dyspnea on exertion and a worse cough productive of some darkish colored sputum. He denies any fever. He denies paroxysmal nocturnal dyspnea but was having orthopnea. He actually had to cut down on his smoking because of these symptoms. However, despite smoking less, the breathing continued to be worse and he ultimately came to the hospital yesterday. He denies any fever or chills. He had previously been diagnosed with COVID but his symptom at that time was mainly sinus congestion and he did not require hospitalization for the COVID infection. They he was admitted with a probable exacerbation of chronic obstructive pulmonary disease. However, he also had a borderline elevated troponin level. As such, a cardiology consultation was requested. He states that when he has a bad coughing spell he will get very lightheaded but denies any syncope. Sometimes the cough or shortness of breath will also make his chest feel tight. He denies palpitations, syncope, or ankle edema. Certain portions of this document may have been dictated utilizing voice recognition technology. Inherent to this technology, typographical and grammatical errors may exist. As much as I am diligent to identify and correct these mistakes, some errors may remain in the document. Review of Systems-Cardiology Review of Systems Other comments Review of 10 organ systems is as per the history of present illness, otherwise negative. All Other Systems Reviewed Negative Unless Noted: Yes DWA-Adytlg-Zleiqt Hx Patient Social History Smoking Status: Current Everyday Smoker 2nd Hand Smoke Exposure: Yes Have you traveled recently?: No Alcohol Use?: No Substance type: Marijuana Pt feels they are or have been: No Tobacco type used: Cigarettes Immunizations Up To Date Tetanus Booster (TDap): Less than 5yrs Date of Pneumonia Vaccine: Aug 10, 2015 Date of Influenza Vaccine: Jul 30, 2020 Past Medical History PMH As described under Assessment. Family Medical History Family History: Cardiovascular disease Colon cancer FH: cancer 19 FATHER 19 MOTHER Allergies and Home Medications Allergies Coded Allergies: diclofenac (Verified Allergy, Intermediate, SWELLING, 06/15/17) Patient Home Medication List Home Medication List Reviewed: Yes Albuterol Sulfate (Ventolin Hfa) 18 Gm Hfa.aer.ad, 1 PUFF INH Q4H PRN for SHORTNESS OF BREATH, (Reported) Entered as Reported by: WALE PERRY on 03/13/20 1828 Aspirin (Aspirin) 81 Mg Tab.chew, 81 MG PO DAILY, (Reported) Entered as Reported by: LESLEE MALONEY on 08/07/17 1154 Clopidogrel Bisulfate (Clopidogrel) 75 Mg Tablet, 75 MG PO DAILY, (Reported) Entered as Reported by: CARLO RIVERA on 05/12/20 1036 Fluticasone/Salmeterol (Advair 250-50 Diskus) 1 Each Blst.w.dev, 1 EACH IH BID, (Reported) Entered as Reported by: EVERETTE DAILEY on 10/13/20 0738 Last Action: Converted Furosemide (Lasix) 80 Mg Tablet, 80 MG PO DAILY, (Reported) Entered as Reported by: ADÁN MARSHALL on 03/16/21 0809 Gabapentin (Gabapentin) 600 Mg Tablet, 600 MG PO TID, (Reported) Entered as Reported by: JAYDEN SEBASTIAN on 07/08/21 1101 Last Action: Continued Insulin Aspart (Novolog Flexpen) 300 Units/3 Ml Solution, 10 UNITS SQ AC, (Reported) Entered as Reported by: ADÁN MARSHALL on 03/16/21 0809 Last Action: Converted Insulin Determir (Levemir) 1,000 Units/10 Ml Soln, 30 UNITS SQ HS, (Reported) Entered as Reported by: ADÁN MARSHALL on 03/16/21808 Last Action: Continued Isosorbide Mononitrate (Isosorbide Mononitrate ER) 60 Mg Tab, 60 MG PO DAILY, (Reported) Entered as Reported by: JAYDEN SEBASTIAN on 07/08/211100 Metoprolol Succinate (Metoprolol Succinate) 25 Mg Tab.er.24h, 25 MG PO DAILY, (Reported) Entered as Reported by: JAYDEN SEBASTIAN on 07/08/211100 Montelukast Sodium (Montelukast Sodium) 10 Mg Tablet, 10 MG PO DAILY, (Reported) Entered as Reported by: EVERETTE DAILEY on 10/13/20 07 Last Action: Continued Multivitamin (Multivitamin) 1 Each Tablet, 1 EACH PO DAILY, (Reported) Entered as Reported by: JAYDEN SEBASTIAN on 07/08/211100 Nitroglycerin (Nitroglycerin) 0.4 Mg Tab.subl, 0.4 MG SL UD PRN for CHEST PAIN, (Reported) Entered as Reported by: JAYDEN SEBASTIAN on 07/08/211100 Omeprazole (Omeprazole) 20 Mg Tablet.dr, 20 MG PO DAILY, (Reported) Entered as Reported by: EVERETTE DAILEY on 10/13/20737 Phenytoin Sodium Extended (Phenytoin Sodium Extended) 100 Mg Capsule, 200 MG PO BID, (Reported) Entered as Reported by: SONAM PLAZA on 10/14/15 0956 Last Action: Continued Potassium Chloride (Potassium Chloride) 20 Meq Tablet.er, 20 MEQ PO DAILY, (Reported) Entered as Reported by: ADÁN MARSHALL on 03/16/21808 Rosuvastatin Calcium (Rosuvastatin Calcium) 20 Mg Tablet, 20 MG PO HS, (Reported) Entered as Reported by: JAYDEN SEBASTIAN on 07/08/211100 Last Action: Continued Exam Vital Signs Vital Signs Date Time Temp Pulse Resp B/P (MAP) Pulse Ox O2 Delivery O2 Flow Rate FiO2 03/02/22 09:00 87 20 138/71 (93) 93 Nasal Cannula 6.00 03/02/22 07:45 36.3 03/02/22 04:00 45 Physical Exam General: Alert. No acute distress. Well nourished and appears stated age. He is obese. Eye: Extraocular movements are intact. Conjunctivae are clear. There are no xanthelasma. HENT: Normocephalic. Atraumatic. Carotid pulsations 2/2 without bruits. Neck: Jugular venous pressure does not appear elevated. No thyromegaly appreciated. Respiratory: Lungs have diffusely decreased breath sounds with scattered wh eezes. Respirations are non-labored. Breath sounds are equal. Symmetrical chest wall expansion. Cardiovascular: Normal rate. Regular rhythm. No murmur. No gallop. Point of maximal impulse is not appear displaced. Diminished pedal pulses but feet are warm. No edema. Gastrointestinal: Soft. Normal bowel sounds. Skin: Skin turgor is normal. There is no pallor. Musculoskeletal: No kyphosis or scoliosis appreciated. Neurologic: Alert and oriented to person, place, time. Cranial nerves 3-12 appear grossly intact. The patient has good motor tone strength in the upper and lower extremities bilaterally. Psychiatric: Cooperative. Appropriate mood & affect. Labs Laboratory Tests Test 03/01/22 10:45 03/01/22 10:50 03/01/22 11:17 03/01/22 14:10 Range/Units White Blood Count 4.2 L 4.3-11.0 10^3/uL Red Blood Count 5.87 H 4.30-5.52 10^6/uL Hemoglobin 16.5 13.3-17.7 g/dL Hematocrit 54 40-54 % Mean Corpuscular Volume 91 80-99 fL Mean Corpuscular Hemoglobin 28 25-34 pg Mean Corpuscular Hemoglobin Concent 31 L 32-36 g/dL Red Cell Distribution Width 16.0 H 10.0-14.5 % Platelet Count 141 130-400 10^3/uL Mean Platelet Volume 9.5 9.0-12.2 fL Immature Granulocyte % (Auto) 0 % Neutrophils (%) (Auto) 58 42-75 % Lymphocytes (%) (Auto) 30 12-44 % Monocytes (%) (Auto) 8 0-12 % Eosinophils (%) (Auto) 4 0-10 % Basophils (%) (Auto) 1 0-10 % Neutrophils # (Auto) 2.4 1.8-7.8 10^3/uL Lymphocytes # (Auto) 1.3 1.0-4.0 10^3/uL Monocytes # (Auto) 0.3 0.0-1.0 10^3/uL Eosinophils # (Auto) 0.2 0.0-0.3 10^3/uL Basophils # (Auto) 0.0 0.0-0.1 10^3/uL Immature Granulocyte # (Auto) 0.0 0.0-0.1 10^3/uL Prothrombin Time 14.4 12.2-14.7 SEC INR Comment 1.1 0.8-1.4 Activated Partial Thromboplast Time 28 24-35 SEC Sodium Level 136 135-145 MMOL/L Potassium Level 4.0 3.6-5.0 MMOL/L Chloride Level 94 L 98-107 MMOL/L Carbon Dioxide Level 34 H 21-32 MMOL/L Anion Gap 8 5-14 MMOL/L Blood Urea Nitrogen 21 H 7-18 MG/DL Creatinine 1.07 0.60-1.30 MG/DL Estimat Glomerular Filtration Rate 79 BUN/Creatinine Ratio 20 Glucose Level 290 H 70-105 MG/DL Lactic Acid Level 1.86 0.50-2.00 MMOL/L Calcium Level 8.6 8.5-10.1 MG/DL Corrected Calcium 9.1 8.5-10.1 MG/DL Total Bilirubin 0.5 0.1-1.0 MG/DL Aspartate Amino Transf (AST/SGOT) 15 5-34 U/L Alanine Aminotransferase (ALT/SGPT) 26 0-55 U/L Alkaline Phosphatase 137 H 40-136 U/L Troponin I 0.083 H <0.028 NG/ML B-Type Natriuretic Peptide 77.0 <100.0 PG/ML Total Protein 6.5 6.4-8.2 GM/DL Albumin 3.4 3.2-4.5 GM/DL Procalcitonin 0.04 <0.10 NG/ML Blood Gas Puncture Site LEFT RADIAL RT RADIAL Blood Gas Patient Temperature 37.0 37.2 Arterial Blood pH 7.30 *L 7.21 *L 7.37-7.43 Arterial Blood Partial Pressure CO2 80 *H 96 *H 35-45 MMHG Arterial Blood Partial Pressure O2 86 98 H 79-93 MMHG Arterial Blood HCO3 38 H 37 H 23-27 MMOL/L Arterial Blood Total CO2 40.3 *H 39.9 H 21.0-31.0 MMOL/L Arterial Blood Oxygen Saturation 96 97 94-100 % Arterial Blood Base Excess 11.1 H 9.2 H -2.5-2.5 MMOL/L Kevin Test POSITIVE POSITIVE Blood Gas Ventilator Setting NO NO Blood Gas Inspired Oxygen 4 LITERS 45% Influenza Type A (RT-PCR) Not Detected Not Detecte Influenza Type B (RT-PCR) Not Detected Not Detecte SARS-CoV-2 RNA (RT-PCR) Not Detected Not Detecte Test 03/01/22 16:00 03/01/22 17:05 03/01/22 20:15 03/02/22 04:20 Range/Units Glucometer 249 H 248 H 70-110 MG/DL Troponin I 0.113 H <0.028 NG/ML White Blood Count 5.4 4.3-11.0 10^3/uL Red Blood Count 6.08 H 4.30-5.52 10^6/uL Hemoglobin 16.7 13.3-17.7 g/dL Hematocrit 56 H 40-54 % Mean Corpuscular Volume 93 80-99 fL Mean Corpuscular Hemoglobin 28 25-34 pg Mean Corpuscular Hemoglobin Concent 30 L 32-36 g/dL Red Cell Distribution Width 15.6 H 10.0-14.5 % Platelet Count 140 130-400 10^3/uL Mean Platelet Volume 9.8 9.0-12.2 fL Immature Granulocyte % (Auto) 1 % Neutrophils (%) (Auto) 87 H 42-75 % Lymphocytes (%) (Auto) 10 L 12-44 % Monocytes (%) (Auto) 2 0-12 % Eosinophils (%) (Auto) 0 0-10 % Basophils (%) (Auto) 0 0-10 % Neutrophils # (Auto) 4.7 1.8-7.8 10^3/uL Lymphocytes # (Auto) 0.6 L 1.0-4.0 10^3/uL Monocytes # (Auto) 0.1 0.0-1.0 10^3/uL Eosinophils # (Auto) 0.0 0.0-0.3 10^3/uL Basophils # (Auto) 0.0 0.0-0.1 10^3/uL Immature Granulocyte # (Auto) 0.0 0.0-0.1 10^3/uL Blood Gas Puncture Site RIGHT RADIAL Blood Gas Patient Temperature 36.3 Arterial Blood pH 7.20 *L 7.37-7.43 Arterial Blood Partial Pressure CO2 112 *H 35-45 MMHG Arterial Blood Partial Pressure O2 123 H 79-93 MMHG Arterial Blood HCO3 43 *H 23-27 MMOL/L Arterial Blood Total CO2 46.4 *H 21.0-31.0 MMOL/L Arterial Blood Oxygen Saturation 98 94-100 % Arterial Blood Base Excess 14.5 H -2.5-2.5 MMOL/L Kevin Test YES-POS Blood Gas Ventilator Setting NO Blood Gas Inspired Oxygen 45% Sodium Level 137 135-145 MMOL/L Potassium Level 5.9 H 3.6-5.0 MMOL/L Chloride Level 94 L 98-107 MMOL/L Carbon Dioxide Level 35 H 21-32 MMOL/L Anion Gap 8 5-14 MMOL/L Blood Urea Nitrogen 23 H 7-18 MG/DL Creatinine 1.09 0.60-1.30 MG/DL Estimat Glomerular Filtration Rate 78 BUN/Creatinine Ratio 21 Glucose Level 202 H 70-105 MG/DL Calcium Level 8.8 8.5-10.1 MG/DL Corrected Calcium 9.0 8.5-10.1 MG/DL Phosphorus Level 4.7 2.3-4.7 MG/DL Magnesium Level 2.4 1.6-2.4 MG/DL Total Bilirubin 0.3 0.1-1.0 MG/DL Aspartate Amino Transf (AST/SGOT) 12 5-34 U/L Alanine Aminotransferase (ALT/SGPT) 28 0-55 U/L Alkaline Phosphatase 134 40-136 U/L Total Protein 6.9 6.4-8.2 GM/DL Albumin 3.7 3.2-4.5 GM/DL Triglycerides Level 138 <150 MG/DL Cholesterol Level 108 < 200 MG/DL LDL Cholesterol Direct 51 1-129 MG/DL VLDL Cholesterol 28 5-40 MG/DL HDL Cholesterol 35 L 40-60 MG/DL Test 03/02/22 10:19 Range/Units Glucometer 319 H 70-110 MG/DL Radiology CARDIAC CATHETERIZATION AND PERCUTANEOUS CORONARY INTERVENTION (09/16/2021): 1. Drug-eluting stent placement to ostium of left main coronary artery with a Synergy Megatron 4.5 x 16 mm stent postdilated with a 5 x 12 mm noncompliant balloon. 2. Status post drug-eluting stent placement to the chronic total occlusion of the mid right coronary artery with a 2.5 x 48 mm, 2.75 x 38 mm and a 3 x 12 mm stents CARDIAC CATHETERIZATION (07/08/2021): 1. The distal left main coronary artery contained a 70% stenosis by angiography. However, fractional flow reserve measurements and intravascular ultrasound revealed that this is most likely not an obstructive, hemodynamically significant lesion. LABS (06/28/2021): Glucose 135. Creatinine 0.96. GFR 86. Potassium 4.4. Hemoglobin 16.8. Platelets 159,000. INR 1. LABS (05/15/2021): Hemoglobin 17.2. Platelets 164,000. Potassium 4.9. Creatinine 0.88. GFR > 60. Glucose 168. Total cholesterol 203. HDL 43. Triglycerides 228. LDL 138. ELECTROCARDIOGRAM (05/14/2021): Sinus tachycardia at 101 bpm with left anterior hemiblock and probable left ventricular hypertrophy with repolarization abnormality. CARDIAC CATHETERIZATION AND ATTEMPTED PERCUTANEOUS CORONARY INTERVENTION (03/23/2021): 1. Coronary artery disease primarily consisting of chronic mid vessel occlusion of the right coronary artery (lung lesion) that is collateralized from the left coronary system and from anterograde collaterals. The rest of the coronary arteries have mild plaque. 2. Elevated left ventricular end-diastolic pressures (17 mmHg). 3. Mild impairment of global left ventricular systolic function with an ejection fraction of approximately 45%. 4. Attempted percutaneous intervention to the right coronary artery was unsuccessful. REGADENOSON NUCLEAR STRESS TEST (03/03/2021): 1. This study is indicative of infero-septal myocardial infarction with a small amount of nico-infarct ischemia. 2. Infero-septal hypokinesis. 3. Mild impairment of global left ventricular systolic function with a calculated ejection fraction of 46%. ECHOCARDIOGRAM (03/01/2021): 1. Normal left ventricular chamber size with mild to moderate concentric left ventricular hypertrophy. Normal left ventricular systolic function with an estimated ejection fraction of 60-65%. 2. Left ventricular diastolic parameters were consistent with grade 3 diastolic dysfunction. 3. Mild to moderate tricuspid regurgitation. 4. Estimated pulmonary artery systolic pressure 60-65 mmHg. BILATERAL CAROTID ULTRASOUND (02/22/2021): Minimal, bilateral carotid arterial plaque without any evidence of hemodynamic significance. CT ANGIOGRAM OF THE CHEST WITH CONTRAST (02/17/2021): 1. Negative for pulmonary embolism or other acute abnormalities. PERIPHERAL ANGIOGRAM AND INTERVENTION 60 to 70% hemodynamically significant stenosis of the distal left superficial femoral artery, which was treated with successful stenting with Absolute Pro 6.0 x 40 mm stent. A previously placed (February 2019) Innova 7.0 x 60 mm stent is widely patent in the distal right superficial femoral artery. There is 3-vessel runoff in both legs. There is moderate diffuse disease of the proximal and mid left superficial femoral artery. ECG Impression ECG Comment Sinus rhythm with left atrial abnormality, left axis deviation, nonspecific intraventricular conduction delay, possible old septal myocardial infarction and nonspecific ST changes. Diagnosis/Problems Diagnosis/Problems (1) Coronary artery disease without angina pectoris Assessment & Plan: He does not seem to be having any typical angina at this point in time. He does have a borderline elevated troponin level which could be a type II non-ST elevation myocardial infarction due to his acute on chronic respiratory failure. I just recommend resuming his regular outpatient cardiac medications. I do not see any indication for a cardiac catheterization at this time. (2) Elevated troponin Assessment & Plan: As above, he may have had a small type II non-ST elevation myocardial infarction due to supply/demand mismatch related to his acute on chronic respiratory failure. (3) Acute on chronic respiratory failure with hypoxemia Assessment & Plan: Most likely due to an exacerbation of his chronic obstructive pulmonary disease and unlikely to represent heart failure. I have ordered a follow-up echocardiogram. (4) Primary hypertension Assessment & Plan: Continue outpatient antihypertensive medication. (5) Mixed hyperlipidemia Assessment & Plan: Continue statin medication. (6) Peripheral arterial disease Assessment & Plan: He is not having any obvious claudication at this time. Continue aspirin and statin medication. (7) Type 2 diabetes mellitus with complication Assessment & Plan: This is being managed by the hospitalist. (8) Cigarette smoker Assessment & Plan: He has been counseled about cigarette smoking cessation on multiple occasions. If he continues to smoke, this will likely have a great impact on his life expectancy. (9) Morbid obesity Assessment & Plan: He needs to work on weight loss. JENNA QUIÑONES JR, MD March 02, 2022 08:39
--- NOTE | 2022-03-02 09:33 | Tele-ICU Progress Note ---
Subjective Date Seen by a Provider: March 02, 2022 Time Seen by a Provider: 08:55 Subjective/Events-last exam This virtual visit was conducted using real time audio/video. Thank you for asking us to see this patient for respiratory insufficiency due to AECOPD. Also elev troponin 0.083 PMH: COPD/homeO2 at 4 LPM, LAURY on BiPAP, CAD, PAD w stents, DM2, CHF, HL, TBI/seizures. PE: Obese. VSS. O2 sat 95% on BIPAP 18/8, 45%. Using only intermittently. HEENT: No obvious masses, adenopathy or JVD. Chest: coarse wheezes on auscultation. CV: RRR S1 S2 No murmur or added sounds. Abd: Non-tender. Bowel sounds Y. : Unremarkable. Hager N. COMPLAINT INVESTIGATOR/psychiatric: Grossly intact. No obvious focal findings. Extremities: No edema. Capillary refill < 3 seconds. Skin: unremarkable. Results: Elevated BUN 21, gluc 290, trop 0.083. B.2/112/123 on 45%. CXR: Hyperinflated, no infilts. Available chart/ vitals / labs / images reviewed. Video assessment done using teleICU camera, rest of exam as per RN. A/P: Respiratory insufficiency: Continue present management with BiPAP, Duonebs, Medrol Monitor for increasing oxygenation needs and/or need for intubation. Consider Palliative Care consult. Critical Care: critically ill patient. Cont. Cefipime, ASA, Plavix, SSI, regular insulin, statin, dilantin, Lovenox. Discussed with RNColauren.. Asked RN to reach out to eICU if any questions or concerns later. Time spent with patient/coordination of care with other health professionals (mins): 25 Sepsis Event Evaluation Height, Weight, BMI Height: 6'0" Weight: 258lbs. 0.0oz. [id number]; 38.71 BMI Method:Stated Focused Exam Lactate Level 03/01/22 10:45: Lactic Acid Level 1.86 Exam Exam Patient acknowledged, consented, and participated in this virtual visit which was conducted using real time audio/video Vital Signs Date Time Temp Pulse Resp B/P (MAP) Pulse Ox O2 Delivery O2 Flow Rate FiO2 03/02/22 09:00 87 20 138/71 (93) 93 Nasal Cannula 6.00 5/4/22 08:00 93 15 147/71 (96) 89 Nasal Cannula 6.00 03/02/22 07:45 36.3 03/02/22 07:00 84 03/02/22 07:00 84 18 137/60 (85) 90 Nasal Cannula 6.00 03/02/22 06:38 94 Nasal Cannula 4.00 03/02/22 06:17 Nasal Cannula 6.00 03/02/22 06:00 88 25 120/67 (84) 97 NIV Bilevel 45.00 03/02/22 05:00 61 15 135/65 (88) 94 NIV Bilevel 45.00 03/02/22 04:00 95 NIV Bilevel 45 03/02/22 04:00 61 18 134/60 (84) 94 NIV Bilevel 45.00 03/02/22 03:00 61 13 144/83 (103) 93 NIV Bilevel 45.00 03/02/22 02:00 82 13 157/68 (97) 92 NIV Bilevel 45.00 03/02/22 01:55 86 23 91 45.00 03/02/22 01:00 65 13 138/69 (92) 95 NIV Bilevel 45.00 03/02/22 01:00 65 03/02/22 00:00 36.3 03/02/22 00:00 77 15 153/82 (105) 94 NIV Bilevel 45.00 03/02/22 00:00 95 NIV Bilevel 45 03/01/22 23:37 85 21 95 45.00 03/01/22 23:20 NIV CPAP 10.00 03/01/22 23:11 NIV CPAP 6.00 03/01/22 23:00 80 15 146/69 (94) 95 NIV CPAP 4.00 03/01/22 22:19 NIV CPAP 4.00 03/01/22 22:09 90 Nasal Cannula 4.00 03/01/22 22:00 69 17 148/79 (102) 93 Nasal Cannula 6.00 03/01/22 21:00 82 20 140/58 (85) 90 Nasal Cannula 6.00 03/01/22 20:00 70 20 125/76 (92) 92 Nasal Cannula 6.00 03/01/22 19:57 36.9 03/01/22 19:51 96 NIV Bilevel 4.00 45 03/01/22 19:00 73 03/01/22 19:00 73 25 154/72 (99) 90 Nasal Cannula 6.00 03/01/22 18:48 95 Nasal Cannula 4.00 03/01/22 18:00 69 29 138/70 (92) 95 03/01/22 17:00 66 21 139/71 (93) 94 03/01/22 16:13 36.6 03/01/22 16:00 66 13 126/65 (85) 94 03/01/22 16:00 94 NIV Bilevel 4.00 45 03/01/22 15:25 37.2 82 95 03/01/22 15:00 82 28 145/74 (97) 95 03/01/22 14:38 84 20 97 45.00 03/01/22 14:00 37.2 03/01/22 14:00 68 25 126/66 (86) 96 03/01/22 13:30 71 16 133/64 (87) 94 03/01/22 13:20 Nasal Cannula 4.00 03/01/22 13:15 68 20 138/70 95 NIV Bilevel 03/01/22 11:05 84 21 98 45.00 03/01/22 10:57 96 Nasal Cannula 4.00 03/01/22 10:40 94 Nasal Cannula 4.00 03/01/22 10:37 Nasal Cannula 4.00 03/01/22 10:35 36.6 95 22 130/72 (91) 92 Nasal Cannula 4.00 I & O 03/02/22 07:00 Intake Total 2914 ml Output Total 650 ml Balance 2264 ml Height & Weight Height: 6'0" Weight: 258lbs. 0.0oz. [id number]; 38.71 BMI Method:Stated General Appearance: Mild Distress Capillary Refill: Less Than 3 Seconds Peripheral Pulses: 1+ Dorsalis Pedis (R) (See free text.), 1+ Left Dors-Pedis (L) Gastrointestinal: normal bowel sounds, non tender, soft, no organomegaly Results Lab Laboratory Tests 03/01/22 10:45 03/02/22 04:20 Assessment/Plan Assessment/Plan See free text Critical Care: Critically Ill Patient ROBBI SALEH MD March 02, 2022 09:33
[2022-03-02] MEDS: RT--FLUTICASONE/SALMETEROL 113-14 (AIRDUO RespiCLICK) IH SCH (10:54)
[2022-03-02] MEDS: ENOXAPARIN 40 MG/0.4 ML (LOVENOX) SYR SC SCH (12:59)
[2022-03-02] MEDS ORDERED: INSU100I29 SC (15:18)
[2022-03-02] MEDS ORDERED: ISOS120T9 PO (15:18)
[2022-03-02] MEDS ORDERED: POTA-169 PO (15:18)
[2022-03-02] MEDS ORDERED: FLUT1BLS3 IH (15:18)
[2022-03-02] MEDS ORDERED: LOSA25TA41 PO (15:18)
[2022-03-02] MEDS ORDERED: ALBU2.5V4 NEB (15:18)
[2022-03-02] MEDS ORDERED: BENZ-36 PO (15:18)
[2022-03-02] MEDS: ROSUVASTATIN 20 MG (CRESTOR) TABLET PO SCH (20:12)
[2022-03-03] MEDS: CEFEPIME INJECTION 1,000 MG in NS (IVPB) 50 ML IV SCH ×3 (01:17→14:05)
[2022-03-03] MEDS: RT-ALBUTEROL/IPRATROPIUM 3 ML (DUONEB) VIAL INH SCH ×4 (01:25→14:22)
[2022-03-03] MEDS: RT--FLUTICASONE/SALMETEROL 113-14 (AIRDUO RespiCLICK) IH SCH ×2 (01:25→07:38)
[2022-03-03 04:01] VITALS: BP 156/77
[2022-03-03 05:57] LABS: BASOPHILS % (AUTO) 0 % (0-10); EOSINOPHILS % (AUTO) 0 % (0-10); HEMATOCRIT 54 % (40-54); HEMOGLOBIN 16.2 g/dL (13.3-17.7); LYMPHOCYTES # (AUTO) 0.7 10^3/uL (1.0-4.0); LYMPHOCYTES % (AUTO) 9 % (12-44); MEAN CORPUSCULAR HEMOGLOBIN 28 pg (25-34); MEAN CORPUSCULAR HGB CONC 30 g/dL (32-36); MEAN CORPUSCULAR VOLUME 92 fL (80-99); MEAN PLATELET VOLUME 9.3 fL (9.0-12.2); MONOCYTES # (AUTO) 0.2 10^3/uL (0.0-1.0); MONOCYTES % (AUTO) 3 % (0-12); NEUTROPHILS # (AUTO) 6.1 10^3/uL (1.8-7.8); NEUTROPHILS % (AUTO) 87 % (42-75); PLATELET COUNT 145 10^3/uL (130-400); WHITE BLOOD COUNT 6.9 10^3/uL (4.3-11.0)
--- NOTE | 2022-03-03 05:57 | Progress Note - Hospitalist ---
Subjective HPI/CC On Admission Date Seen by Provider: March 03, 2022 Time Seen by Provider: 11:00 CC: SOB HPI: This is a 61 yr old WM with known past medical history of end stage COPD. He presented to the ER with complaints of SOB. He was found to have pneumonia and exacerbation of COPD with CO2 narcosis. He did require BiPAP but this morning he decided he didn't want to use any BiPAP and he didn't want to be intubated or resuscitated, so he is DNR and DNI. We will transfer to 4th floor and consult hospice. I did speak with him in depth about this and he agrees with the plan. Focused Exam Lactate Level 03/01/22 10:45: Lactic Acid Level 1.86 Objective Exam Vital Signs Vital Signs Date Time Temp Pulse Resp B/P (MAP) Pulse Ox O2 Delivery O2 Flow Rate FiO2 03/03/22 10:54 91 Nasal Cannula 5.00 03/03/22 08:00 37.1 93 19 143/68 (93) 03/02/22 04:00 45 Capillary Refill : Less Than 3 Seconds Results/Procedures Lab Laboratory Tests 03/03/22 05:35 Patient resulted labs reviewed. Assessment/Plan Critical Care Critically Ill Patient Diagnosis/Problems Diagnosis/Problems (1) COPD exacerbation Status: Acute STEW FRANCISCO DO March 03, 2022 05:57
[2022-03-03 06:04] LABS: ALBUMIN 3.4 GM/DL (3.2-4.5); POTASSIUM 5.4 MMOL/L (3.6-5.0)
[2022-03-03 06:05] LABS: CALCIUM 8.7 MG/DL (8.5-10.1)
[2022-03-03 06:06] LABS: TOTAL PROTEIN 6.5 GM/DL (6.4-8.2)
[2022-03-03 06:08] LABS: BILIRUBIN,TOTAL 0.3 MG/DL (0.1-1.0)
[2022-03-03 06:10] LABS: CREATININE SERUM 0.95 MG/DL (0.60-1.30)
[2022-03-03] MEDS: methylPREDNISolone 40 MG/ML (Solu-MEDROL) VIAL IV SCH ×2 (06:19→12:01)
[2022-03-03] MEDS: inSUlin ASPART (NovoLOG) 1 UNIT/0.01 ML (CHARGE PER UNIT) SC SCH ×4 (06:22→12:01)
[2022-03-03 06:35] LABS: LYMPHOCYTES % (MANUAL) 8 %; MONOCYTES % (MANUAL) 1 %; NEUTROPHILS % (MANUAL) 91 %; RBC MORPH NORMAL
[2022-03-03 08:00] VITALS: BP 143/68
[2022-03-03] MEDS: PHENYTOIN 100 MG (DILANTIN) CAP PO SCH (08:47)
[2022-03-03] MEDS: GABAPENTIN 600 MG (NEURONTIN) TAB PO SCH ×2 (08:47→12:01)
[2022-03-03] MEDS: CLOPIDOGREL 75 MG (PLAVIX) TABLET PO SCH (08:47)
[2022-03-03] MEDS: ASPIRIN 81 MG CHEW (CHILDREN'S ASA) PO SCH (08:47)
[2022-03-03] MEDS: DOCUSATE SODIUM 100 MG (COLACE) CAP PO SCH (08:47)
[2022-03-03] MEDS: MONTELUKAST 10 MG (SINGULAIR) TAB PO SCH (08:47)
[2022-03-03] MEDS: SENNOSIDES 8.6 MG (SENOKOT) TAB PO SCH (08:47)
--- NOTE | 2022-03-03 09:19 | Cardiology Progress Note ---
Progress Note-Cardiology Events since last exam Date Seen by Provider: March 03, 2022 Time Seen by Provider: 09:15 Events since last exam I am following him due to coronary artery disease among other cardiac issues. He spoke with the team from hospice and he states that he is not ready to . He states that he has many things left in life which he wants to accomplish. He is adamant that he is finished with smoking. He denies any chest discomfort. He feels as though his breathing is improved but he is requiring 6 L of oxygen. At home he normally only wears oxygen at night. He denies palpitations, sync ope, or ankle edema. Certain portions of this document may have been dictated utilizing voice recog nition technology. Inherent to this technology, typographical and grammatical errors may exist. As much as I am diligent to identify and correct these mistakes, some errors may remain in the document. Vitals Last set of Vitals Signs Vital Signs 03/02/22 03/03/22 04:00 08:00 Temp 37.1 Pulse 93 Resp 19 B/P (MAP) 143/68 (93) Pulse Ox 93 O2 Delivery NIV CPAP O2 Flow Rate 5.00 FiO2 45 Labs Labs Laboratory Tests 03/03/22 05:35 Exam Vital Signs Vital Signs Date Time Temp Pulse Resp B/P (MAP) Pulse Ox O2 Delivery O2 Flow Rate FiO2 03/03/22 08:00 37.1 93 19 143/68 (93) 93 NIV CPAP 5.00 03/02/22 04:00 45 Physical Exam General: Alert. No acute distress. He is obese. He is wearing oxygen by nasal cannula. Eye: No xanthelasma. HENT: Normocephalic. Neck: Jugular venous pressure does not appear elevated. Respiratory: Lungs have diffusely diminished breath sounds with diffuse inspiratory wheezes. Respirations are non-labored. Breath sounds are equal. Symmetrical chest wall expansion. Cardiovascular: Normal rate. Regular rhythm. Distant S1/S2. No murmur. No gallop. No edema. Gastrointestinal: Soft. Normal bowel sounds. Skin: Warm. Dry. Neurologic: Alert and oriented to person, place, time. Cranial nerves 3-11 grossly intact. Psychiatric: Cooperative. Appropriate mood & affect. Labs Laboratory Tests Test 03/02/22 10:19 03/02/22 16:23 03/02/22 21:37 03/02/22 22:04 Range/Units Glucometer 319 H 218 H 277 H 307 H 70-110 MG/DL Test 03/03/22 05:13 03/03/22 05:35 Range/Units Glucometer 223 H 70-110 MG/DL White Blood Count 6.9 4.3-11.0 10^3/uL Red Blood Count 5.86 H 4.30-5.52 10^6/uL Hemoglobin 16.2 13.3-17.7 g/dL Hematocrit 54 40-54 % Mean Corpuscular Volume 92 80-99 fL Mean Corpuscular Hemoglobin 28 25-34 pg Mean Corpuscular Hemoglobin Concent 30 L 32-36 g/dL Red Cell Distribution Width 15.6 H 10.0-14.5 % Platelet Count 145 130-400 10^3/uL Mean Platelet Volume 9.3 9.0-12.2 fL Immature Granulocyte % (Auto) 0 % Neutrophils (%) (Auto) 87 H 42-75 % Lymphocytes (%) (Auto) 9 L 12-44 % Monocytes (%) (Auto) 3 0-12 % Eosinophils (%) (Auto) 0 0-10 % Basophils (%) (Auto) 0 0-10 % Neutrophils # (Auto) 6.1 1.8-7.8 10^3/uL Lymphocytes # (Auto) 0.7 L 1.0-4.0 10^3/uL Monocytes # (Auto) 0.2 0.0-1.0 10^3/uL Eosinophils # (Auto) 0.0 0.0-0.3 10^3/uL Basophils # (Auto) 0.0 0.0-0.1 10^3/uL Immature Granulocyte # (Auto) 0.0 0.0-0.1 10^3/uL Neutrophils % (Manual) 91 % Lymphocytes % (Manual) 8 % Monocytes % (Manual) 1 % Blood Morphology Comment NORMAL Sodium Level 135 135-145 MMOL/L Potassium Level 5.4 H 3.6-5.0 MMOL/L Chloride Level 92 L 98-107 MMOL/L Carbon Dioxide Level 35 H 21-32 MMOL/L Anion Gap 8 5-14 MMOL/L Blood Urea Nitrogen 19 H 7-18 MG/DL Creatinine 0.95 0.60-1.30 MG/DL Estimat Glomerular Filtration Rate 92 BUN/Creatinine Ratio 20 Glucose Level 222 H 70-105 MG/DL Calcium Level 8.7 8.5-10.1 MG/DL Corrected Calcium 9.2 8.5-10.1 MG/DL Total Bilirubin 0.3 0.1-1.0 MG/DL Aspartate Amino Transf (AST/SGOT) 9 5-34 U/L Alanine Aminotransferase (ALT/SGPT) 24 0-55 U/L Alkaline Phosphatase 130 40-136 U/L Total Protein 6.5 6.4-8.2 GM/DL Albumin 3.4 3.2-4.5 GM/DL Diagnosis/Problems Diagnosis/Problems (1) Coronary artery disease without angina pectoris Assessment & Plan: He does not seem to be having any typical angina at this point in time. He does have a borderline elevated troponin level which could be a type II non-ST elevation myocardial infarction due to his acute on chronic respiratory failure. I recommend continuing his regular outpatient cardiac medications. I have ordered his outpatient dose of long-acting nitrates and beta-arcadio. He cannot take ranolazine because he is on phenytoin for seizure disorder and there is a significant drug interaction between these 2 medications. I do not see any indication for a cardiac catheterization at this time. (2) Elevated troponin Assessment & Plan: As above, he may have had a small type II non-ST elevation myocardial infarction due to supply/demand mismatch related to his acute on chronic respiratory failure. (3) Pulmonary hypertension Assessment & Plan: This is most likely due to his severe chronic obstructive pulmonary disease. He should continue on supplemental oxygen. Given his multiple comorbid conditions, he is not an ideal candidate for an extensive evaluation for other secondary causes of pulmonary hypertension. It is unlikely that he has primary pulmonary hypertension and would unlikely benefit from any of the agents used to treat this condition. He should follow-up with his regular drug and alcohol counsellor following discharge. (4) Chronic heart failure with preserved ejection fraction (HFpEF) Assessment & Plan: I will obtain a follow-up echocardiogram to get another assessment of his ejection fraction. I I have ordered his outpatient dose of furosemide. (5) Acute on chronic respiratory failure with hypoxemia Assessment & Plan: Most likely due to an exacerbation of his chronic obstructive pulmonary disease and unlikely to represent heart failure. I have ordered a follow-up echocardiogram. (6) Primary hypertension Assessment & Plan: His blood pressure has been intermittently elevated. I have resumed his outpatient antihypertensive medication. (7) Mixed hyperlipidemia Assessment & Plan: Continue statin medication. His LDL level was good during this admission. (8) Peripheral arterial disease Assessment & Plan: He is not having any obvious claudication at this time. Continue aspirin and statin medication. (9) Type 2 diabetes mellitus with complication Assessment & Plan: This is being managed by the hospitalist. He does have a dietitian at his regular outpatient care provider and plans to follow-up with that person following discharge. (10) Cigarette smoker Assessment & Plan: He has been counseled about cigarette smoking cessation on multiple occasions. If he continues to smoke, this will likely have a great impact on his life expectancy. He now seems to be adamant that he will quit smoking. He seems to understand how this will potentially improve his life expectancy. (11) Morbid obesity Assessment & Plan: He needs to work on weight loss. JENNA QUIÑONES JR, MD March 03, 2022 09:19
[2022-03-03] MEDS ORDERED: ISOSORBIDE MONONITRATE 60 MG (IMDUR) TAB PO ONE (09:30)
[2022-03-03] MEDS ORDERED: FUROSEMIDE 40 MG (LASIX) TAB PO NR (09:38)
[2022-03-03] MEDS ORDERED: PRED10TA22 PO (11:56)
[2022-03-03] MEDS ORDERED: CEFD300C3 PO (11:56)
[2022-03-03] MEDS ORDERED: MONT-40 PO (11:56)
[2022-03-03 12:00] VITALS: BP 141/64
--- NOTE | 2022-03-03 12:00 | Discharge Summary ---
Discharge Summary Hospital Course Was the Problem List Reviewed?: Yes Problems/Dx: (1) Coronary artery disease without angina pectoris (2) Elevated troponin (3) Pulmonary hypertension (4) Chronic heart failure with preserved ejection fraction (HFpEF) (5) Acute on chronic respiratory failure with hypoxemia (6) Primary hypertension (7) Mixed hyperlipidemia (8) Peripheral arterial disease (9) Type 2 diabetes mellitus with complication (10) Cigarette smoker (11) Morbid obesity Hospital Course Date of Admission: March 01, 2022 at 12:38 Admission Diagnosis : Family Physician/Provider: Baron Gupta Date of Discharge: 03/03/22 Discharge Diagnosis: Acute on chronic respiratory failure, pneumonia, exacerbation of COPD, current smoker, CAD, hospice candidate Hospital Course: Pt had an uneventful 3 day hospital course, most of it in the ICU until he refused to be intubated or wear a BiPAP due to severe CO2 narcosis. He was maintained on IV steroids, nebulizer treatments, and oxygen supplementation. Ultimately he improved enough to be [facility] hosp[facility]. I did have in depth conversations with him regarding this end stage COPD he has. He will go home on a long steroid taper along with antibiotics to finish that up. He will have close follow up with his PCP, but overall prognosis is poor. He is DNR, DNI, and he refuses BiPAP. Labs and Pending Lab Test: Laboratory Tests 03/02/22 16:23: Glucometer 218H 03/02/22 21:37: Glucometer 277H 03/02/22 22:04: Glucometer 307H 03/03/22 05:13: Glucometer 223H 03/03/22 05:35: White Blood Count 6.9, Red Blood Count 5.86H, Hemoglobin 16.2, Hematocrit 54, Mean Corpuscular Volume 92, Mean Corpuscular Hemoglobin 28, Mean Corpuscular Hemoglobin Concent 30L, Red Cell Distribution Width 15.6H, Platelet Count 145, Mean Platelet Volume 9.3, Immature Granulocyte % (Auto) 0, Neutrophils (%) (Auto) 87H, Lymphocytes (%) (Auto) 9L, Monocytes (%) (Auto) 3, Eosinophils (%) (Auto) 0, Basophils (%) (Auto) 0, Neutrophils # (Auto) 6.1, Lymphocytes # (Auto) 0.7L, Monocytes # (Auto) 0.2, Eosinophils # (Auto) 0.0, Basophils # (Auto) 0.0, Immature Granulocyte # (Auto) 0.0, Neutrophils % (Manual) 91, Lymphocytes % (Manual) 8, Monocytes % (Manual) 1, Blood Morphology Comment NORMAL, Sodium Level 135, Potassium Level 5.4H, Chloride Level 92L, Carbon Dioxide Level 35H, Anion Gap 8, Blood Urea Nitrogen 19H, Creatinine 0.95, Estimat Glomerular F iltration Rate 92, BUN/Creatinine Ratio 20, Glucose Level 222H, Calcium Level 8.7, Corrected Calcium 9.2, Total Bilirubin 0.3, Aspartate Amino Transf (AST/SGOT) 9, Alanine Aminotransferase (ALT/SGPT) 24, Alkaline Phosphatase 130, Total Protein 6.5, Albumin 3.4 03/03/22 11:15: Glucometer 212H Microbiology 03/01/22 MRSA Screen - Final, Complete MRSA not isolated 03/01/22 Blood Culture - Preliminary, Resulted No growth Home Meds Active Prednisone 10 Mg Tab.ds.pk 10 Mg PO DAILY Take 6 tabs(60mg)daily,decrease by 1 tab(10mg)every other day. Cefdinir 300 Mg Capsule 300 Mg PO BID Montelukast Sodium 10 Mg Tablet 10 Mg PO DAILY Reported Trelegy Ellipta 100-62.5-25 (Fluticasone/Umeclidin/Vilanter) 100-62.5 Blst.w.dev 1 Each IH DAILY Albuterol Sulfate 2.5 Mg/3 Ml (0.083 %) Vial.neb 3 Ml NEB Q4H PRN Losartan Potassium 25 Mg Tablet 50 Mg PO DAILY TAKES 2 (25MG) TABS Klor-Con M20 (Potassium Chloride) 20 Meq Tab.er.prt 20 Meq PO DAILY Levemir Flextouch (Insulin Detemir) 100 Unit/Ml (3 Ml) Insuln.pen 30 Units SC HS Isosorbide Mononitrate ER (Isosorbide Mononitrate) 120 Mg Tab.er.24h 120 Mg PO DAILY Benzonatate 100 Mg Capsule 100 Mg PO TID PRN Multivitamin 1 Each Tablet 1 Each PO DAILY Gabapentin 600 Mg Tablet 600 Mg PO TID Rosuvastatin Calcium 20 Mg Tablet 20 Mg PO HS Nitroglycerin 0.4 Mg Tab.subl 0.4 Mg SL UD PRN Metoprolol Succinate 25 Mg Tab.er.24h 25 Mg PO BID Novolog Flexpen (Insulin Aspart) 300 Units/3 Ml Solution 10 Units SQ AC PRN Lasix (Furosemide) 80 Mg Tablet 80 Mg PO DAILY Omeprazole 20 Mg Tablet.dr 20 Mg PO DAILY Clopidogrel (Clopidogrel Bisulfate) 75 Mg Tablet 75 Mg PO DAILY Ventolin Hfa (Albuterol Sulfate) 18 Gm Hfa.aer.ad 1 Puff INH Q4H PRN Aspirin 81 Mg Tab.chew 81 Mg PO DAILY Phenytoin Sodium Extended 100 Mg Capsule 200 Mg PO BID TAKE 2 (100MG) TABS Assessment/Pt Instructions PCP in 1 week Discharge Planning: <30 minutes discharge planning Discharge Physical Examination Vital Signs Vital Signs Date Time Temp Pulse Resp B/P (MAP) Pulse Ox O2 Delivery O2 Flow Rate FiO2 03/03/22 10:54 91 Nasal Cannula 5.00 03/03/22 08:00 37.1 93 19 143/68 (93) 03/02/22 04:00 45 General Appearance: No Apparent Distress, WD/WN, Chronically ill Respiratory: Decreased Breath Sounds, Wheezing Cardiovascular: Regular Rate, Rhythm Neurologic/Psychiatric: Alert, Oriented x3, No Motor/Sensory Deficits, Normal Mood/Affect Allergies: Coded Allergies: diclofenac (Verified Allergy, Intermediate, SWELLING, 06/15/17) Discharge Summary Date of Admission March 01, 2022 at 12:38 Date of Discharge Discharge Date: March 03, 2022 Admission Diagnosis Assessment: Acute on chronic respiratory failure Hypercapnia Severe COPD end stage Oxygen dependent Current smoker CAD PVD Plan: DNR DO NOT INTUBATE Transfer to fourth floor Supportive care Discharge Diagnosis (1) Coronary artery disease without angina pectoris Assessment & Plan: He does not seem to be having any typical angina at this point in time. He does have a borderline elevated troponin level which could be a type II non-ST elevation myocardial infarction due to his acute on chronic respiratory failure. I recommend continuing his regular outpatient cardiac medications. I have ordered his outpatient dose of long-acting nitrates and beta-arcadio. He cannot take ranolazine because he is on phenytoin for seizure disorder and there is a significant drug interaction between these 2 medications. I do not see any indication for a cardiac catheterization at this time. (2) Elevated troponin Assessment & Plan: As above, he may have had a small type II non-ST elevation myocardial infarction due to supply/demand mismatch related to his acute on chronic respiratory failure. (3) Pulmonary hypertension Assessment & Plan: This is most likely due to his severe chronic obstructive pulmonary disease. He should continue on supplemental oxygen. Given his multiple comorbid conditions, he is not an ideal candidate for an extensive evaluation for other secondary causes of pulmonary hypertension. It is unlikely that he has primary pulmonary hypertension and would unlikely benefit from any of the agents used to treat this condition. He should follow-up with his regular fish cleaner machine tender following discharge. (4) Chronic heart failure with preserved ejection fraction (HFpEF) Assessment & Plan: I will obtain a follow-up echocardiogram to get another assessment of his ejection fraction. I I have ordered his outpatient dose of furosemide. (5) Acute on chronic respiratory failure with hypoxemia Assessment & Plan: Most likely due to an exacerbation of his chronic obstructive pulmonary disease and unlikely to represent heart failure. I have ordered a follow-up echocardiogram. (6) Primary hypertension Assessment & Plan: His blood pressure has been intermittently elevated. I have resumed his outpatient antihypertensive medication. (7) Mixed hyperlipidemia Assessment & Plan: Continue statin medication. His LDL level was good during this admission. (8) Peripheral arterial disease Assessment & Plan: He is not having any obvious claudication at this time. Continue aspirin and statin medication. (9) Type 2 diabetes mellitus with complication Assessment & Plan: This is being managed by the hospitalist. He does have a dietitian at his regular outpatient care provider and plans to follow-up with that person following discharge. (10) Cigarette smoker Assessment & Plan: He has been counseled about cigarette smoking cessation on multiple occasions. If he continues to smoke, this will likely have a great impact on his life expectancy. He now seems to be adamant that he will quit smoking. He seems to understand how this will potentially improve his life expectancy. (11) Morbid obesity Assessment & Plan: He needs to work on weight loss. STEW FRANCISCO DO March 03, 2022 12:00
[2022-03-03 14:05] VITALS: BP 141/64
--- NOTE | 2022-03-03 16:18 | Physician Query Clarification ---
Physician Query-General Query to Physician: Clinical Validation Clarification : Jayy Hernandez Pneumonia has been documented in the medical record. After study, do you consider Pneumonia a clinically valid diagnosis? If not clinically valid, please document "Pneumonia, ruled out" on the progress notes and/or discharge summary. 1. No, Pneumonia, not clinically valid/ruled out 2. Yes, Pneumonia is a clinically valid diagnosis 3. Other, with explanation of the clinical findings 4. Clinically undetermined, no explanation for the clinical findings Additional information: COPD, HR 95, RR 22, BP 130/72, SpO2 84% sat on room air, WBC 4.7, Chest Xray on admission: "no acute cardiopulmonary processes detected", ER Treatment: Solu-Medrol IV, ceftriaxone IV, Duoneb, Sputum Culture: Usual Upper Respiratory Christen Please remember a lack of response to the above will prompt a phone page by CDI/coding staff. In responding to this query, please exercise your independent professional judgment. The purpose of this communication is to more accurately reflect the complexity of your patients condition. The fact that a question is asked does not imply that any particular answer is desired or expected. Thank you for timely response to this clarification. Anastasiia Beck MSN, RN Clinical Discharge Door Operator [email or web address] PHYSICIAN RESPONSE: Based on the clinical findings in the record, please respond to the query above on this document as an addendum. Physician Response: Physician Response 2 If you have questions please contact: Wheel Alignment Technician: Ext: Thank you for your time and cooperation. Clinical Discharge Door Operator/Wheel Alignment Technician This is a permanent part of the medical record ANASTASIIA BECK March 03, 2022 16:18 STEW HERNANDEZ DO March 03, 2022 20:36
[2022-03-04] MEDS ORDERED: FUROSEMIDE 40 MG (LASIX) TAB PO SCH (09:00)
[2022-03-04] MEDS ORDERED: ISOSORBIDE MONONITRATE 60 MG (IMDUR) TAB PO SCH (09:00)
== END 2022-03-03 14:20 | disposition home or self-care (01) | DRG 193 ==
LOC: EDUNIT# 10:20 → ER 10:22 → ICU 12:38 → 4TH 03-02 13:15
PROVIDERS: ADMIT Internal Medicine; ATTEND Internal Medicine
PROC: 5A09357 Assistance with Respiratory Ventilation, Less than 24 Consecutive Hours, Continuous Positive Airway Pressure (ICD-10-PCS; principal; 2022-03-01)
DX: J18.9 Pneumonia, unspecified organism (principal); J96.22 Acute and chronic respiratory failure with hypercapnia; J96.21 Acute and chronic respiratory failure with hypoxia; I21.A1 Myocardial infarction type 2; J44.0 Chronic obstructive pulmonary disease with (acute) lower respiratory infection; J44.1 Chronic obstructive pulmonary disease with (acute) exacerbation; I50.32 Chronic diastolic (congestive) heart failure; Z68.41 Body mass index [BMI] 40.0-44.9, adult; I25.10 Atherosclerotic heart disease of native coronary artery without angina pectoris; Z79.82 Long term (current) use of aspirin; Z79.4 Long term (current) use of insulin; Z79.899 Other long term (current) drug therapy; E78.00 Pure hypercholesterolemia, unspecified; I11.0 Hypertensive heart disease with heart failure; G40.909 Epilepsy, unspecified, not intractable, without status epilepticus; K21.9 Gastro-esophageal reflux disease without esophagitis; M19.90 Unspecified osteoarthritis, unspecified site; G89.29 Other chronic pain; M54.9 Dorsalgia, unspecified; F41.9 Anxiety disorder, unspecified; Z20.822 Contact with and (suspected) exposure to COVID-19; Z66 Do not resuscitate; F17.210 Nicotine dependence, cigarettes, uncomplicated; F12.90 Cannabis use, unspecified, uncomplicated; Z99.81 Dependence on supplemental oxygen; I27.20 Pulmonary hypertension, unspecified; E66.01 Morbid (severe) obesity due to excess calories; E11.51 Type 2 diabetes mellitus with diabetic peripheral angiopathy without gangrene
CPT/HCPCS: 36415; 71045; 80053; 80061; 82805; 82947; 83605; 83735; 83880; 84100; 84145; 84484; 85007; 85025; 85027; 85610; 85730; 87040; 87070; 87081; 87205; 87636; 93005; 93306; 94640; 94660; 94760; 94761; 99291

== ENCOUNTER → 2022-04-06 | Outpatient (CLI) | payer MEDICARE, MEDICAID ==
[~2022-04-06] MED LIST changes: +ALBU2.5V4 NEB; +BENZ-36 PO; +CEFD300C3 PO; +FLUT1BLS3 IH; +INSU100I29 SC; +ISOS120T9 PO; +LOSA25TA41 PO; +POTA-169 PO; +RT-ALBUTEROL SULF 2.5 MG/3 ML PRE-MIX VIAL INH ONE
== END ==
LOC: RT 10:45
PROVIDERS: ATTEND Nurse Practitioner Family
DX: J44.9 Chronic obstructive pulmonary disease, unspecified (principal)
CPT/HCPCS: 94060; 94726; 94729

== ENCOUNTER 2022-09-07 10:59 | Inpatient (IN) | payer MEDICARE, MEDICAID ==
[~2022-09-07] VITALS: Ht 177 cm; Wt 123.0 kg
[2022-09-07] VITALS (7 sets, daily range): BP systolic 109–151; BP diastolic 54–75
[~2022-09-07 10:59] MED LIST changes: +ALBU8.5H6 IH; +LEVO750T PO; -LEVO750T39 PO; -RT-ALBUINH IH; -RT-ALBUTEROL SULF 2.5 MG/3 ML PRE-MIX VIAL INH ONE
[2022-09-07 11:15] LABS: BASOPHILS % (AUTO) 1 % (0-10); EOSINOPHILS # (AUTO) 0.2 10^3/uL (0.0-0.3); EOSINOPHILS % (AUTO) 3 % (0-10); HEMATOCRIT 54 % (40-54); HEMOGLOBIN 16.6 g/dL (13.3-17.7); LYMPHOCYTES # (AUTO) 1.1 10^3/uL (1.0-4.0); LYMPHOCYTES % (AUTO) 17 % (12-44); MEAN CORPUSCULAR HEMOGLOBIN 29 pg (25-34); MEAN CORPUSCULAR HGB CONC 31 g/dL (32-36); MEAN CORPUSCULAR VOLUME 92 fL (80-99); MEAN PLATELET VOLUME 9.5 fL (9.0-12.2); MONOCYTES # (AUTO) 0.3 10^3/uL (0.0-1.0); MONOCYTES % (AUTO) 5 % (0-12); NEUTROPHILS # (AUTO) 4.6 10^3/uL (1.8-7.8); NEUTROPHILS % (AUTO) 74 % (42-75); PLATELET COUNT 151 10^3/uL (130-400); WHITE BLOOD COUNT 6.2 10^3/uL (4.3-11.0)
--- NOTE | 2022-09-07 11:28 | Diagnostic Imaging Report ---
INDICATION: Shortness of air. COMPARISON: 03/02/2022. FINDINGS: Lungs clear. No failure, effusion or pneumothorax. IMPRESSION: No acute appearing abnormality. Dictated by: Dictated on workstation # [id number]
[2022-09-07 11:34] LABS: ALBUMIN 3.4 GM/DL (3.2-4.5); POTASSIUM 4.3 MMOL/L (3.6-5.0)
[2022-09-07 11:36] LABS: CALCIUM 9.2 MG/DL (8.5-10.1)
[2022-09-07 11:37] LABS: TOTAL PROTEIN 7.1 GM/DL (6.4-8.2)
[2022-09-07 11:39] LABS: BILIRUBIN,TOTAL 0.4 MG/DL (0.1-1.0)
[2022-09-07 11:40] LABS: CREATININE SERUM 1.11 MG/DL (0.60-1.30)
[2022-09-07 11:48] LABS: ABG BASE EXCESS 16.9 MMOL/L (-2.5-2.5); ABG OXYGEN SATURATION 95 % (94-100); ABG PO2 70 MMHG (79-93)
[2022-09-07 11:50] LABS: CREATINE KINASE MB 3.8 NG/ML (<6.6)
[2022-09-07 11:50] LABS: ABG PCO2 89 MMHG (35-45); ABG PH 7.31 (7.37-7.43)
--- NOTE | 2022-09-07 11:50 | ED Cough/URI ---
General Chief Complaint: Respiratory Problems Stated Complaint: OXY LEVEL LOW Nursing Triage Note: PT STATES SOB THAT STARTED YESTERDAY, COPD DIABETIC, CLOGGED ARTERIES, HAS BEEN GIVEN 6 MO TO A YR TO LIVE BY DR. FRANCISCO. ON O2 AT HOME 4-6 LITERS, 83% ON ROOM AIR AT TRIAGE, HEADACHE BUT DENIES CHEST PAIN Source: patient Exam Limitations: no limitations (MARCO RIVAS GERMINATION WORKER) History of Present Illness Date Seen by Provider: Sep 07, 2022 Time Seen by Provider: 11:47 Initial Comments This is a this is a 61-year-old male with history of end-stage COPD, CAD, CHF, LAURY with BiPAP at night who presented to the ER with complaints of shortness of breath, cough, low oxygen saturation started this morning. He uses oxygen at 4 L throughout the day and 6 L at bedtime with his. BiPAP. Currently managed with hospice bridge program. States he started having increased shortness of breath so he contacted his hospice nurse and they prescribed him an antibiotic, he is unsure which, and steroids. He took 2 pills of his steroids this morning. States when he woke this morning he checked his oxygen saturation because he was feeling short of breath, his O2 saturation was 66%, he increased his home oxygen to 6 L which increased his O2 to the 90s. No increase swelling in her lower extremities, no fever, no chills, no chest pain, no nausea, vomiting diarrhea abdominal pain. (MARCO RIVAS GERMINATION WORKER) Allergies and Home Medications Allergies Coded Allergies: diclofenac (Verified Allergy, Intermediate, SWELLING, 06/15/17) Patient Home Medication List Home Medication List Reviewed: Yes (MARCO RIVAS GERMINATION WORKER) Home Medication List Reviewed: Yes (LIMA CRUZ MD) Albuterol Sulfate (Ventolin Hfa) 18 Gm Hfa.aer.ad, 1 PUFF INH Q4H PRN for SHORTNESS OF BREATH, (Reported) Entered as Reported by: WALE PERRY on 03/13/20 1828 Albuterol Sulfate (Albuterol Sulfate) 2.5 Mg/3 Ml (0.083 %) Vial.neb, 3 ML NEB Q4H PRN for SHORTNESS OF BREATH, (Reported) Entered as Reported by: CARLO RIVERA on 03/02/22 1518 Aspirin (Aspirin) 81 Mg Tab.chew, 81 MG PO DAILY, (Reported) Entered as Reported by: LESLEE MALONEY on 08/07/17 1154 Last Action: Continued Benzonatate (Benzonatate) 100 Mg Capsule, 100 MG PO TID PRN for COUGH, (Reported) Entered as Reported by: CARLO RIVERA on 03/02/221517 Cefdinir (Cefdinir) 300 Mg Capsule, 300 MG PO BID Prescribed by: STEW FRANCISCO on 03/03/22 1156 Clopidogrel Bisulfate (Clopidogrel) 75 Mg Tablet, 75 MG PO DAILY, (Reported) Entered as Reported by: CARLO RIVERA on 05/12/20 1036 Last Action: Continued Fluticasone/Umeclidin/Vilanter (Trelegy Ellipta 100-62.5-25) 100-62.5 Blst.w.dev, 1 EACH IH DAILY, (Reported) Entered as Reported by: CARLO RIVERA on 03/02/221517 Furosemide (Lasix) 80 Mg Tablet, 80 MG PO DAILY, (Reported) Entered as Reported by: ADÁN MARSHALL on 03/16/21 0809 Last Action: Converted Gabapentin (Gabapentin) 600 Mg Tablet, 600 MG PO TID, (Reported) Entered as Reported by: JAYDEN SEBASTIAN on 07/08/21 110 Insulin Aspart (Novolog Flexpen) 300 Units/3 Ml Solution, 10 UNITS SQ AC PRN for HYPERGLYCEMIA, (Reported) Entered as Reported by: ADÁN MARSHALL on 03/16/21 08 Insulin Detemir (Levemir Flextouch) 100 Unit/Ml (3 Ml) Insuln.pen, 30 UNITS SC HS, (Reported) Entered as Reported by: CARLO RIVERA on 03/02/221517 Isosorbide Mononitrate (Isosorbide Mononitrate ER) 120 Mg Tab.er.24h, 120 MG PO DAILY, (Reported) Entered as Reported by: CARLO RIVERA on 03/02/221517 Last Action: Converted Metoprolol Succinate (Metoprolol Succinate) 25 Mg Tab.er.24h, 25 MG PO BID, (Reported) Entered as Reported by: JAYDEN SEBASTIAN on 07/08/21 110 Last Action: Continued Montelukast Sodium (Montelukast Sodium) 10 Mg Tablet, 10 MG PO DAILY Prescribed by: STEW FRANCISCO on 03/03/22 1156 Multivitamin (Multivitamin) 1 Each Tablet, 1 EACH PO DAILY, (Reported) Entered as Reported by: JAYDEN SEBASTIAN on 07/08/21 1101 Nitroglycerin (Nitroglycerin) 0.4 Mg Tab.subl, 0.4 MG SL UD PRN for CHEST PAIN, (Reported) Entered as Reported by: JAYDEN SEBASTIAN on 07/08/21 1101 Omeprazole (Omeprazole) 20 Mg Tablet.dr, 20 MG PO DAILY, (Reported) Entered as Reported by: EVERETTE DAILEY on 10/13/20 0738 Phenytoin Sodium Extended (Phenytoin Sodium Extended) 100 Mg Capsule, 200 MG PO BID, (Reported) Entered as Reported by: SONAM PLAZA on 10/14/15 0956 Prednisone (Prednisone) 10 Mg Tab.ds.pk, 10 MG PO DAILY Prescribed by: STEW FRANCISCO on 03/03/22 1156 Rosuvastatin Calcium (Rosuvastatin Calcium) 20 Mg Tablet, 20 MG PO HS, (Reported) Entered as Reported by: JAYDEN SEBASTIAN on 07/08/21 1101 Last Action: Continued Review of Systems Review of Systems Constitutional: see HPI (MARCO RIVAS GERMINATION WORKER) Past Wnqcvnk-Gdtcuu-Mprgkg Hx Patient Social History Tobacco Use?: Yes Tobacco type used: Cigarettes Smoking Status: Current Everyday Smoker Use of E-Cig and/or Vaping Amandeep: Current Everyday User Substance use?: Yes Substance type: Marijuana Alcohol Use?: No (MARCO RIVAS GERMINATION WORKER) Immunizations Up To Date Tetanus Booster (TDap): Less than 5yrs PED Vaccines UTD: Yes First/Initial COVID19 Vaccinat: 01/22/2021 Second COVID19 Vaccination Jose: 2020 Third COVID19 Vaccination Date: 2020 (MARCO RIVAS GERMINATION WORKER) Seasonal Allergies Seasonal Allergies: No (MARCO RIVAS APRN) Past Medical History Surgery/Hospitalization HX: CODP, DIABETIC TYPE I, SLEEP APNEA, CAD WITH 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 Surgeries: Yes (Loop recorder-removed, Brain surgery, Left foot, Stents to emmie legs, ) Cardiac, Neurological, Orthopedic Respiratory: Yes (COPD, SLEEP APNEA, BIPAP) Sleep Apnea, COPD Currently Using CPAP: No Currently Using BIPAP: Yes Cardiac: Yes (BILATERAL SUPERFICAL FEMORAL ARTERY STENTS;CAROTID & VERTEBRAL ARTERY DZ) Chronic Edema/Swelling, Coronary Artery Disease, High Cholesterol, Hypertension, Peripheral Vascular Neurological: Yes (CLAW HAMMER TO HEAD-- INJURY 1982) Seizure Disorder, Traumatic Brain Injury Reproductive Disorders: No Sexually Transmitted Disease: No HIV/AIDS: No Genitourinary: No Gastrointestinal: Yes (HEPATITIS A 06/27/20) Gastroesophageal Reflux, Hepatitis, Polyps Musculoskeletal: Yes (BILATERAL CARPAL TUNNEL RELEASE) Arthritis, Chronic Back Pain Endocrine: Yes (BORDERLINE DIABETES, NOT TAKING MEDS) HEENT: Yes Loss of Vision: Bilateral Hearing Impairment: Denies Cancer: No Psychosocial: Yes (RELATED TO BREATHING ISSUES-RACING HELMET/SWIMMING) Anxiety Integumentary: Yes (DRY PATCHES ON ELBOW AND HANDS, scaly rash on feet) Blood Disorders: No Adverse Reaction/Blood Tranf: No (MARCO RIVAS APRN) Family Medical History Cardiovascular disease Colon cancer FH: cancer 19 FATHER 19 MOTHER No Pertinent Family Hx PAST SURGICAL HISTORY: -LOOP RECORDER PLACED AND REMOVED -RIGHT SUPERFICIAL FEMORAL ARTERY STENT 03/2019 -LEFT SUPERFICIAL FEMORALY ARTERY STENT -BILATERAL CARPAL TUNNEL RELEASE -SURGERY DUE TO HEAD TRAUMA--"CLAW HAMMER" TO HEAD 1982 -LEFT TOE SURGERY -CARDIAC CATH 2017--MODERATE DISEASE, NO INTERVENTION ADDITIONAL PMH: -EXTENSIVE ASVD WITH CORONARY ARTERY DISEASE ( NO INTERVENTION), CAROTID ARTERY DISEASE, AND VERTEBRAL ARTERY DISEASE, WITH LEFT VERTEBRAL ARTERY WITH SEVERE STENOSIS, HAD HAS HAD BILATERAL LOWER EXTREMITY STENTS. (MARCO RIVAS APRN) Physical Exam Vital Signs - First Documented 09/07/22 11:05 Temp 37.5 Pulse 82 Resp 22 B/P (MAP) 136/80 (98) Pulse Ox 94 O2 Delivery Nasal Cannula O2 Flow Rate 4.00 (LIMA CRUZ MD) Capillary Refill : (MARCO RIVAS APRN) Height: 6'0" Weight: 258lbs. 0.0oz. [id number]; 38.00 BMI Method:Stated General Appearance: WD/WN, no apparent distress Eyes: Bilateral Eye Normal Inspection, Bilateral Eye PERRL, Bilateral Eye EOMI HEENT: PERRL/EOMI, normal ENT inspection, pharynx normal Neck: full range of motion, supple, normal inspection Respiratory: lungs clear, normal breath sounds, no respiratory distress, no accessory muscle use Cardiovascular: regular rate, rhythm, no murmur Gastrointestinal: normal bowel sounds, non tender, soft Extremities: normal range of motion, normal inspection, no pedal edema Neurologic/Psychiatric: no motor/sensory deficits, alert, normal mood/affect, oriented x 3 Skin: normal color, warm/dry (MARCO RIVAS APRN) Progress/Results/Core Measures Suspected Sepsis SIRS Temperature: Pulse: 82 Respiratory Rate: 22 Laboratory Tests 09/07/22 11:07: White Blood Count 6.2 Blood Pressure 136 /80 Mean: 98 Laboratory Tests 09/07/22 11:07: Creatinine 1.11, Platelet Count 151, Total Bilirubin 0.4 (MARCO RIVAS APRN) Results/Orders Lab Results Laboratory Tests Test 09/07/22 11:07 09/07/22 11:13 09/07/22 11:34 09/07/22 12:54 Range/Units White Blood Count 6.2 4.3-11.0 10^3/uL Red Blood Count 5.81 H 4.30-5.52 10^6/uL Hemoglobin 16.6 13.3-17.7 g/dL Hematocrit 54 40-54 % Mean Corpuscular Volume 92 80-99 fL Mean Corpuscular Hemoglobin 29 25-34 pg Mean Corpuscular Hemoglobin Concent 31 L 32-36 g/dL Red Cell Distribution Width 15.5 H 10.0-14.5 % Platelet Count 151 130-400 10^3/uL Mean Platelet Volume 9.5 9.0-12.2 fL Immature Granulocyte % (Auto) 0 % Neutrophils (%) (Auto) 74 42-75 % Lymphocytes (%) (Auto) 17 12-44 % Monocytes (%) (Auto) 5 0-12 % Eosinophils (%) (Auto) 3 0-10 % Basophils (%) (Auto) 1 0-10 % Neutrophils # (Auto) 4.6 1.8-7.8 10^3/uL Lymphocytes # (Auto) 1.1 1.0-4.0 10^3/uL Monocytes # (Auto) 0.3 0.0-1.0 10^3/uL Eosinophils # (Auto) 0.2 0.0-0.3 10^3/uL Basophils # (Auto) 0.0 0.0-0.1 10^3/uL Immature Granulocyte # (Auto) 0.0 0.0-0.1 10^3/uL D-Dimer 3.68 H 0.00-0.49 UG/ML Sodium Level 137 135-145 MMOL/L Potassium Level 4.3 3.6-5.0 MMOL/L Chloride Level 93 L 98-107 MMOL/L Carbon Dioxide Level 35 H 21-32 MMOL/L Anion Gap 9 5-14 MMOL/L Blood Urea Nitrogen 14 7-18 MG/DL Creatinine 1.11 0.60-1.30 MG/DL Estimat Glomerular Filtration Rate 76 BUN/Creatinine Ratio 13 Glucose Level 169 H 70-105 MG/DL Calcium Level 9.2 8.5-10.1 MG/DL Corrected Calcium 9.7 8.5-10.1 MG/DL Total Bilirubin 0.4 0.1-1.0 MG/DL Aspartate Amino Transf (AST/SGOT) 9 5-34 U/L Alanine Aminotransferase (ALT/SGPT) 14 0-55 U/L Alkaline Phosphatase 152 H 40-136 U/L Total Creatine Kinase 79 30-200 U/L Creatine Kinase MB 3.8 <6.6 NG/ML Myoglobin 77.5 10.0-92.0 NG/ML Troponin I 0.091 H <0.028 NG/ML B-Type Natriuretic Peptide 16.2 <100.0 PG/ML Total Protein 7.1 6.4-8.2 GM/DL Albumin 3.4 3.2-4.5 GM/DL Influenza Type A (RT-PCR) Not Detected Not Detecte Influenza Type B (RT-PCR) Not Detected Not Detecte SARS-CoV-2 RNA (RT-PCR) Not Detected Not Detecte Blood Gas Puncture Site LT RAD Blood Gas Patient Temperature 37.5 Arterial Blood pH 7.31 *L 7.37-7.43 Arterial Blood Partial Pressure CO2 89 *H 35-45 MMHG Arterial Blood Partial Pressure O2 70 L 79-93 MMHG Arterial Blood HCO3 44 *H 23-27 MMOL/L Arterial Blood Total CO2 46.3 *H 21.0-31.0 MMOL/L Arterial Blood Oxygen Saturation 95 94-100 % Arterial Blood Base Excess 16.9 H -2.5-2.5 MMOL/L Kevin Test YES-POS Blood Gas Ventilator Setting NO Blood Gas Inspired Oxygen 4 L Urine Opiates Screen NEGATIVE NEGATIVE Urine Oxycodone Screen NEGATIVE NEGATIVE Urine Methadone Screen NEGATIVE NEGATIVE Urine Propoxyphene Screen NEGATIVE NEGATIVE Urine Barbiturates Screen POSITIVE H NEGATIVE Ur Tricyclic Antidepressants Screen NEGATIVE NEGATIVE Urine Phencyclidine Screen NEGATIVE NEGATIVE Urine Amphetamines Screen NEGATIVE NEGATIVE Urine Methamphetamines Screen NEGATIVE NEGATIVE Urine Benzodiazepines Screen NEGATIVE NEGATIVE Urine Cocaine Screen NEGATIVE NEGATIVE Urine Cannabinoids Screen POSITIVE H NEGATIVE (LIMA CRUZ MD) My Orders Orders - LIMA CRUZ MD Bipap (Bilevel) Set Up (09/07/22 12:39) (LIMA CRUZ MD) Vital Signs/I&O 09/07/22 09/07/22 09/07/22 11:05 11:13 12:35 Temp 37.5 Pulse 82 76 Resp 22 26 B/P (MAP) 136/80 (98) Pulse Ox 94 96 O2 Delivery Nasal Cannula Nasal Cannula O2 Flow Rate 4.00 28.00 (LIMA CRUZ MD) Vital Signs/I&O Capillary Refill : (MARCO RIVAS GERMINATION WORKER) Blood Pressure Mean: 98 Progress Note : Progress Note Patient examined no acute distress, increased work of breathing, placed on oxygen at 4 L per nasal cannula which is his baseline. Initiated respiratory and cardiac work-up. Added COVID and influenza swabs. Oxygen saturation 92% on 4 L. CXR negative for acute pathology. Labs reviewed, no elevation of white count, H&H stable. He does have elevated D-dimer at 3.68, ABGs shows respiratory acidosis with hypercapnia. His CO2 is 89. Orders placed for BiPAP. His EKG is negative for acute ischemic changes, he did have slight elevation of his troponin at 0.091, likely demand induced. Continues to deny chest pain. RT arrived to set up BiPAP, /, Tv-500-600, RR-25, FiO2-28% with oxygen saturation 96%. Tolerating well. Discussed case with Dr. Weber and Dr. Rachel, will admit to cardiac step down. Plan of care reviewed with patient and he is agreeable with plan for admission. (MARCO RIVAS GERMINATION WORKER) ECG Initial ECG Impression Date: Sep 07, 2022 Initial ECG Impression Time: 11:13 Initial ECG Rate: 82 Initial ECG Rhythm: Normal Sinus Initial ECG Impression: Nonspecific Changes Initial ECG Comparisson: Unchanged (MARCO RIVAS APRN) Diagnostic Imaging Diagonstic Imaging: Xray Plain Films/CT/US/NM/MRI: chest Comments [facility], [place] NAME: LELE GAMBLE [facility] REC#: [id number] PT STATUS: REG ER : 1960 PHYSICIAN: MARCO RIVAS APRN ADMIT DATE: 09/07/22/ER Draft Date of Exam:09/07/22 CHEST 1 VIEW, AP/PA ONLY INDICATION: Shortness of air. COMPARISON: 03/02/2022. FINDINGS: Lungs clear. No failure, effusion or pneumothorax. IMPRESSION: No acute appearing abnormality. Dictated on workstation # [id number] Dict: 09/07/22 1126 Trans: 09/07/22 1127 [id number] Interpreted by: OLY BURNETTE Electronically signed by: Reviewed: Reviewed by Me (MARCO RIVAS APRN) Departure Communication (Admissions) Time/Spoke to Admitting Phy: 12:45 Dr. Rachel Time/Spoke to Consulting Phy: 12:23 Dr. Weber (MARCO RIVAS APRN) Impression Primary Impression: COPD exacerbation Additional Impression: Hypercapnemia Disposition: ADMITTED INPATIENT Condition: Stable Admissions Decision to Admit Reason: Admit from ER (General) Decision to Admit/Date: Sep 07, 2022 Time/Decision to Admit Time: 12:59 (MARCO RIVAS APRN) Departure-Patient Inst. Referrals: [facility] [place] (PCP) Primary Care Physician JENNA MATHEWS (Family) Primary Care Physician MARCO RIVAS APRN Sep 07, 2022 11:50 LIMA CRUZ MD Sep 08, 2022 07:40
[2022-09-07 11:51] LABS: ABG TCO2 46.3 MMOL/L (21.0-31.0); ALLENS TEST YES-POS; INSPIRED O2 4 L; PATIENT TEMP 37.5; VENTILATOR NO
[2022-09-07] MEDS ORDERED: methylPREDNISolone 125 MG (Solu-MEDROL) VIAL IVP ONE (12:30)
[2022-09-07] MEDS ORDERED: ENOXAPARIN 60 MG/0.6 ML (LOVENOX) SYR SC ONE (12:45)
[2022-09-07 13:11] LABS: AMPHETAMINE SCREEN, URINE NEGATIVE (NEGATIVE); BARBITURATE SCREEN URINE POSITIVE (NEGATIVE); BENZODIAZEPINES SCREEN URINE NEGATIVE (NEGATIVE); CANNABINOID SCREEN, URINE POSITIVE (NEGATIVE); COCAINE SCREEN URINE NEGATIVE (NEGATIVE); METHADONE STAT NEGATIVE (NEGATIVE); OPIATE SCREEN URINE NEGATIVE (NEGATIVE); OXYCODONE STAT NEGATIVE (NEGATIVE); PROPOXYPHENE STAT NEGATIVE (NEGATIVE); TRICYCLIC ANTIDEPRESSANTS SCRE NEGATIVE (NEGATIVE)
--- NOTE | 2022-09-07 15:10 | Consultation-Cardiology ---
HPI-Cardiology Cardiology Consultation: Date of Consultation 09/07/22 Date of Admission 09/07/22 Attending Physician [facility] Admitting Physician Admitting Physician: Linnea Rachel MD Attending Physician: Linnea Rachel MD Consulting Physician JENNA QUIÑONES JR, MD HPI: Time Seen by a Provider: 15:09 Chief Complaint: REASON FOR CONSULTATION: Abnormal troponin. I had the pleasure of seeing Suman in the intensive care unit at [facility] in [place], [place] today. He is known to me from the office as well as previous admissions here. For the past several days he has had increasing dyspnea on exertion as well as paroxysmal nocturnal dyspnea. He has also had a cough productive of some yellowish and brownish sputum. He denies any fevers. Yesterday he was seen by his hospice agency who started him on prednisone and amoxicillin. However, this morning when he woke up he used his nebulizer as he does every morning and he could not get his oxygen saturation above 66%. Therefore, he came to the emergency room for further evaluation. During his evaluation, he was found to have a mildly elevated troponin level and a cardiology consultation was requested. He has been using his nebulizer 7 or 8 times per day as well as his rescue albuterol inhaler. Despite the symptoms, he continues to smoke 1-1/2 pack of cigarettes per day. He sleeps on 2 pillows as well as a wedge. He denies chest discomfort, palpitations, lightheadedness, syncope, or lower extremity edema. Certain portions of this document may have been dictated utilizing voice recognition technology. Inherent to this technology, typographical and grammatical errors may exist. As much as I am diligent to identify and correct these mistakes, some errors may remain in the document. Review of Systems-Cardiology Review of Systems Other comments Review of 10 organ systems is as per the history of present illness, otherwise negative. PAO-Ctibfb-Nuoabl Hx Patient Social History Smoking Status: Current Everyday Smoker 2nd Hand Smoke Exposure: Yes Have you traveled recently?: No Alcohol Use?: No Substance type: Marijuana Pt feels they are or have been: No Tobacco type used: Cigarettes Immunizations Up To Date Tetanus Booster (TDap): Less than 5yrs Date of Pneumonia Vaccine: Aug 10, 2015 Date of Influenza Vaccine: Jul 30, 2020 Past Medical History PMH As described under Assessment. Family Medical History Family History: Cardiovascular disease Colon cancer FH: cancer 19 FATHER 19 MOTHER Allergies and Home Medications Allergies Coded Allergies: diclofenac (Verified Allergy, Intermediate, SWELLING, 06/15/17) Patient Home Medication List Home Medication List Reviewed: Yes Albuterol Sulfate (Ventolin Hfa) 18 Gm Hfa.aer.ad, 1 PUFF INH Q4H PRN for SHORTNESS OF BREATH, (Reported) Entered as Reported by: WALE PERRY on 03/13/20 1828 Albuterol Sulfate (Albuterol Sulfate) 2.5 Mg/3 Ml (0.083 %) Vial.neb, 3 ML NEB Q4H PRN for SHORTNESS OF BREATH, (Reported) Entered as Reported by: CARLO RIVERA on 03/02/22 1518 Aspirin (Aspirin) 81 Mg Tab.chew, 81 MG PO DAILY, (Reported) Entered as Reported by: LESLEE MALONEY on 08/07/17 1154 Benzonatate (Benzonatate) 100 Mg Capsule, 100 MG PO TID PRN for COUGH, (Reported) Entered as Reported by: CARLO RIVERA on 03/02/22 1518 Cefdinir (Cefdinir) 300 Mg Capsule, 300 MG PO BID Prescribed by: STEW FRANCISCO on 03/03/22 1156 Clopidogrel Bisulfate (Clopidogrel) 75 Mg Tablet, 75 MG PO DAILY, (Reported) Entered as Reported by: CARLO RIVERA on 05/12/20 1036 Fluticasone/Umeclidin/Vilanter (Trelegy Ellipta 100-62.5-25) 100-62.5 Blst.w.dev, 1 EACH IH DAILY, (Reported) Entered as Reported by: CARLO RIVERA on 03/02/22 1518 Furosemide (Lasix) 80 Mg Tablet, 80 MG PO DAILY, (Reported) Entered as Reported by: ADÁN MARSHALL on 03/16/21 0809 Gabapentin (Gabapentin) 600 Mg Tablet, 600 MG PO TID, (Reported) Entered as Reported by: JAYDEN SEBASTIAN on 07/08/21 1101 Insulin Aspart (Novolog Flexpen) 300 Units/3 Ml Solution, 10 UNITS SQ AC PRN for HYPERGLYCEMIA, (Reported) Entered as Reported by: ADÁN MARSHALL on 03/16/21 0809 Insulin Detemir (Levemir Flextouch) 100 Unit/Ml (3 Ml) Insuln.pen, 30 UNITS SC HS, (Reported) Entered as Reported by: CARLO RIVERA on 03/02/22 1518 Isosorbide Mononitrate (Isosorbide Mononitrate ER) 120 Mg Tab.er.24h, 120 MG PO DAILY, (Reported) Entered as Reported by: CARLO RIVERA on 03/02/22 1518 Metoprolol Succinate (Metoprolol Succinate) 25 Mg Tab.er.24h, 25 MG PO BID, (Reported) Entered as Reported by: JAYDEN SEBASTIAN on 07/08/21 1101 Montelukast Sodium (Montelukast Sodium) 10 Mg Tablet, 10 MG PO DAILY Prescribed by: STEW FRANCISCO on 03/03/22 1156 Multivitamin (Multivitamin) 1 Each Tablet, 1 EACH PO DAILY, (Reported) Entered as Reported by: JAYDEN SEBASTIAN on 07/08/21 1101 Nitroglycerin (Nitroglycerin) 0.4 Mg Tab.subl, 0.4 MG SL UD PRN for CHEST PAIN, (Reported) Entered as Reported by: JAYDEN SEBASTIAN on 07/08/21 1101 Omeprazole (Omeprazole) 20 Mg Tablet.dr, 20 MG PO DAILY, (Reported) Entered as Reported by: EVERETTE DAILYE on 10/13/20 0738 Phenytoin Sodium Extended (Phenytoin Sodium Extended) 100 Mg Capsule, 200 MG PO BID, (Reported) Entered as Reported by: SONAM PLAZA on 10/14/15 0956 Prednisone (Prednisone) 10 Mg Tab.ds.pk, 10 MG PO DAILY Prescribed by: STEW FRANCISCO on 03/03/22 1156 Rosuvastatin Calcium (Rosuvastatin Calcium) 20 Mg Tablet, 20 MG PO HS, (Reported) Entered as Reported by: JAYDEN SEBASTIAN on 07/08/21 1101 Exam Vital Signs Vital Signs Date Time Temp Pulse Resp B/P (MAP) Pulse Ox O2 Delivery O2 Flow Rate FiO2 09/07/22 16:00 83 131/72 (91) 93 Nasal Cannula 4.00 09/07/22 15:00 24 09/07/22 14:38 37.0 Physical Exam General: Alert. No acute distress. Well nourished and appears stated age. Eye: Extraocular movements are intact. Conjunctivae are clear. There are no xanthelasma. HENT: Normocephalic. Atraumatic. Carotid pulsations 2/2 without bruits. Neck: Jugular venous pressure does not appear elevated. No thyromegaly appreciated. Respiratory: Lungs have diffusely decreased breath sounds with some scattered wheezes. Respirations are non-labored. Breath sounds are equal. Symmetrical chest wall expansion. Cardiovascular: Normal rate. Regular rhythm. Distant S1/S2. No murmur. No gallop. Point of maximal impulse is not appear displaced. Good pulses equal in all extremities. No edema. Gastrointestinal: Soft. Normal bowel sounds. Skin: Skin turgor is normal. There is no pallor. Musculoskeletal: No kyphosis or scoliosis appreciated. Neurologic: Alert and oriented to person, place, time. Cranial nerves 3-12 appear grossly intact. The patient has good motor tone strength in the upper and lower extremities bilaterally. Psychiatric: Cooperative. Appropriate mood & affect. Labs Laboratory Tests Test 09/07/22 11:07 09/07/22 11:13 09/07/22 11:34 09/07/22 12:54 Range/Units White Blood Count 6.2 4.3-11.0 10^3/uL Red Blood Count 5.81 H 4.30-5.52 10^6/uL Hemoglobin 16.6 13.3-17.7 g/dL Hematocrit 54 40-54 % Mean Corpuscular Volume 92 80-99 fL Mean Corpuscular Hemoglobin 29 25-34 pg Mean Corpuscular Hemoglobin Concent 31 L 32-36 g/dL Red Cell Distribution Width 15.5 H 10.0-14.5 % Platelet Count 151 130-400 10^3/uL Mean Platelet Volume 9.5 9.0-12.2 fL Immature Granulocyte % (Auto) 0 % Neutrophils (%) (Auto) 74 42-75 % Lymphocytes (%) (Auto) 17 12-44 % Monocytes (%) (Auto) 5 0-12 % Eosinophils (%) (Auto) 3 0-10 % Basophils (%) (Auto) 1 0-10 % Neutrophils # (Auto) 4.6 1.8-7.8 10^3/uL Lymphocytes # (Auto) 1.1 1.0-4.0 10^3/uL Monocytes # (Auto) 0.3 0.0-1.0 10^3/uL Eosinophils # (Auto) 0.2 0.0-0.3 10^3/uL Basophils # (Auto) 0.0 0.0-0.1 10^3/uL Immature Granulocyte # (Auto) 0.0 0.0-0.1 10^3/uL D-Dimer 3.68 H 0.00-0.49 UG/ML Sodium Level 137 135-145 MMOL/L Potassium Level 4.3 3.6-5.0 MMOL/L Chloride Level 93 L 98-107 MMOL/L Carbon Dioxide Level 35 H 21-32 MMOL/L Anion Gap 9 5-14 MMOL/L Blood Urea Nitrogen 14 7-18 MG/DL Creatinine 1.11 0.60-1.30 MG/DL Estimat Glomerular Filtration Rate 76 BUN/Creatinine Ratio 13 Glucose Level 169 H 70-105 MG/DL Calcium Level 9.2 8.5-10.1 MG/DL Corrected Calcium 9.7 8.5-10.1 MG/DL Total Bilirubin 0.4 0.1-1.0 MG/DL Aspartate Amino Transf (AST/SGOT) 9 5-34 U/L Alanine Aminotransferase (ALT/SGPT) 14 0-55 U/L Alkaline Phosphatase 152 H 40-136 U/L Total Creatine Kinase 79 30-200 U/L Creatine Kinase MB 3.8 <6.6 NG/ML Myoglobin 77.5 10.0-92.0 NG/ML Troponin I 0.091 H <0.028 NG/ML B-Type Natriuretic Peptide 16.2 <100.0 PG/ML Total Protein 7.1 6.4-8.2 GM/DL Albumin 3.4 3.2-4.5 GM/DL Influenza Type A (RT-PCR) Not Detected Not Detecte Influenza Type B (RT-PCR) Not Detected Not Detecte SARS-CoV-2 RNA (RT-PCR) Not Detected Not Detecte Blood Gas Puncture Site LT RAD Blood Gas Patient Temperature 37.5 Arterial Blood pH 7.31 *L 7.37-7.43 Arterial Blood Partial Pressure CO2 89 *H 35-45 MMHG Arterial Blood Partial Pressure O2 70 L 79-93 MMHG Arterial Blood HCO3 44 *H 23-27 MMOL/L Arterial Blood Total CO2 46.3 *H 21.0-31.0 MMOL/L Arterial Blood Oxygen Saturation 95 94-100 % Arterial Blood Base Excess 16.9 H -2.5-2.5 MMOL/L Kevin Test YES-POS Blood Gas Ventilator Setting NO Blood Gas Inspired Oxygen 4 L Urine Opiates Screen NEGATIVE NEGATIVE Urine Oxycodone Screen NEGATIVE NEGATIVE Urine Methadone Screen NEGATIVE NEGATIVE Urine Propoxyphene Screen NEGATIVE NEGATIVE Urine Barbiturates Screen POSITIVE H NEGATIVE Ur Tricyclic Antidepressants Screen NEGATIVE NEGATIVE Urine Phencyclidine Screen NEGATIVE NEGATIVE Urine Amphetamines Screen NEGATIVE NEGATIVE Urine Methamphetamines Screen NEGATIVE NEGATIVE Urine Benzodiazepines Screen NEGATIVE NEGATIVE Urine Cocaine Screen NEGATIVE NEGATIVE Urine Cannabinoids Screen POSITIVE H NEGATIVE Test 09/07/22 16:09 Range/Units Glucometer 266 H 70-110 MG/DL Radiology ECHOCARDIOGRAM (03/03/2022): 1. This is a technically difficult study due to poor image quality secondary to patient's body habitus. 2. Normal left ventricular chamber size with mild concentric hypertrophy. Normal left ventricular systolic function with an estimated ejection fraction of 55- 60%. Regional wall motion abnormalities cannot be excluded due to poor endocardial definition. 3. The left ventricular diastolic parameters are normal. 4. The right atrium is mildly dilated at 19 cm. 5. The estimated pulmonary artery systolic pressure is 60 mmHg assuming a right atrial pressure of 5 mmHg. 6. Compared to the previous report from 03/01/2021, the left ventricular diastolic function and tricuspid regurgitation appear improved on this study. CARDIAC CATHETERIZATION AND PERCUTANEOUS CORONARY INTERVENTION (09/16/2021): 1. Drug-eluting stent placement to ostium of left main coronary artery with a Synergy Megatron 4.5 x 16 mm stent postdilated with a 5 x 12 mm noncompliant balloon. 2. Status post drug-eluting stent placement to the chronic total occlusion of the mid right coronary artery with a 2.5 x 48 mm, 2.75 x 38 mm and a 3 x 12 mm stents CARDIAC CATHETERIZATION (07/08/2021): 1. The distal left main coronary artery contained a 70% stenosis by angiography. However, fractional flow reserve measurements and intravascular ultrasound revealed that this is most likely not an obstructive, hemodynamically significant lesion. LABS (06/28/2021): Glucose 135. Creatinine 0.96. GFR 86. Potassium 4.4. Hemoglobin 16.8. Platelets 159,000. INR 1. LABS (05/15/2021): Hemoglobin 17.2. Platelets 164,000. Potassium 4.9. Creatinine 0.88. GFR > 60. Glucose 168. Total cholesterol 203. HDL 43. Triglycerides 228. LDL 138. ELECTROCARDIOGRAM (05/14/2021): Sinus tachycardia at 101 bpm with left anterior hemiblock and probable left ventricular hypertrophy with repolarization abnormality. CARDIAC CATHETERIZATION AND ATTEMPTED PERCUTANEOUS CORONARY INTERVENTION (03/23/2021): 1. Coronary artery disease primarily consisting of chronic mid vessel occlusion of the right coronary artery (lung lesion) that is collateralized from the left coronary system and from anterograde collaterals. The rest of the coronary arteries have mild plaque. 2. Elevated left ventricular end-diastolic pressures (17 mmHg). 3. Mild impairment of global left ventricular systolic function with an ejection fraction of approximately 45%. 4. Attempted percutaneous intervention to the right coronary artery was unsuccessful. REGADENOSON NUCLEAR STRESS TEST (03/03/2021): 1. This study is indicative of infero-septal myocardial infarction with a small amount of nico-infarct ischemia. 2. Infero-septal hypokinesis. 3. Mild impairment of global left ventricular systolic function with a calculated ejection fraction of 46%. ECHOCARDIOGRAM (03/01/2021): 1. Normal left ventricular chamber size with mild to moderate concentric left ventricular hypertrophy. Normal left ventricular systolic function with an estimated ejection fraction of 60-65%. 2. Left ventricular diastolic parameters were consistent with grade 3 diastolic dysfunction. 3. Mild to moderate tricuspid regurgitation. 4. Estimated pulmonary artery systolic pressure 60-65 mmHg. BILATERAL CAROTID ULTRASOUND (02/22/2021): Minimal, bilateral carotid arterial plaque without any evidence of hemodynamic significance. CT ANGIOGRAM OF THE CHEST WITH CONTRAST (02/17/2021): 1. Negative for pulmonary embolism or other acute abnormalities. PERIPHERAL ANGIOGRAM AND INTERVENTION 60 to 70% hemodynamically significant stenosis of the distal left superficial femoral artery, which was treated with successful stenting with Absolute Pro 6.0 x 40 mm stent. A previously placed (February 2019) Innova 7.0 x 60 mm stent is widely patent in the distal right superficial femoral artery. There is 3-vessel runoff in both legs. There is moderate diffuse disease of the proximal and mid left superficial femoral artery. ECG Impression ECG Comment Electrocardiogram from the emergency room shows sinus rhythm with probable left anterior hemiblock and possible old anteroseptal myocardial infarction. Diagnosis/Problems Diagnosis/Problems (1) Elevated troponin Status: Acute Assessment & Plan: He has a minimally elevated troponin level and no angina. He has no ischemic changes on his electrocardiogram. I suspect he may have had a small type II non-ST elevation myocardial infarction due to his acute on chronic respiratory failure with supply/demand mismatch. I recommend he continue his aspirin, clopidogrel, beta-arcadio, long-acting nitrates and statin medication. I do not see any strong indication for an ischemic evaluation at this time. (2) Chronic heart failure with preserved ejection fraction (HFpEF) Status: Chronic Assessment & Plan: His BNP level is normal and his chest CT did not show any signs of pulmonary edema or pleural effusions. I suspect the majority of his shortness of breath is related to his chronic obstructive pulmonary disease as outlined above. I have reordered his furosemide. His most recent echocardiogram in February 2022 showed normalization of his ejection fraction. (3) Coronary artery disease involving [place] coronary artery with angina pectoris Assessment & Plan: He does not appear to have any overt angina at this point in time. His symptoms have been under good control on aspirin, clopidogrel, beta- arcadio, long-acting nitrates and statin medication as outlined above. (4) Acute on chronic respiratory failure with hypoxemia Status: Acute Assessment & Plan: I suspect his acute on chronic respiratory failure is primarily due to chronic obstructive pulmonary disease exacerbation with ongoing cigarette smoking. The hospitalist/primary provider is managing his respiratory failure. (5) Pulmonary hypertension Status: Chronic Assessment & Plan: This is most likely multifactorial but predominantly due to his chronic obstructive pulmonary disease. (6) Peripheral arterial disease Assessment & Plan: He had previous peripheral interventions and his claudication has been under good control. (7) Essential hypertension Status: Chronic Assessment & Plan: Continue beta-arcadio. (8) Mixed hyperlipidemia Status: Chronic Assessment & Plan: Continue statin medication. (9) Type 2 diabetes mellitus with complication Status: Chronic Assessment & Plan: This will be managed by the primary provider. (10) Cigarette smoker Assessment & Plan: He needs to quit smoking. He has been counseled in this regard on numerous occasions in the past. JENNA QUIÑONES JR, MD Sep 07, 2022 15:10
[2022-09-07] MEDS ORDERED: HOLD METFORMIN - RECEIVED CONTRAST 20 ML VIAL IV SCH (15:15)
[2022-09-07] MEDS ORDERED: NS 100 ML (IVPB) BAG IV ONE (15:15)
[2022-09-07] MEDS ORDERED: CATHETER FLUSH 10 ML SYR IV PRN (15:15)
[2022-09-07] MEDS ORDERED: IOHEXOL 350 MG/ML 100 ML (OMNIPAQUE 350) VIAL IV ONE (15:15)
--- NOTE | 2022-09-07 15:35 | Diagnostic Imaging Report ---
PROCEDURE: CT angiography of the chest with contrast. TECHNIQUE: Multiple contiguous axial images were obtained through the chest after uneventful bolus administration of intravenous contrast. 3D reconstructed CTA MIP acquisitions were also performed. Auto Exposure Controls were utilized during the CT exam to meet ALARA standards for radiation dose reduction. INDICATION: Respiratory failure with elevated D-dimer. COMPARISON: 02/17/2021. FINDINGS: There are no intraluminal pulmonary arterial filling defects. No pulmonary arterial embolic disease identified. The thoracic aorta is patent, nonaneurysmal and nonacute. No focal consolidation. No lung mass. No adenopathy. No findings of edema or effusion. No pneumothorax. Some chronic emphysematous changes noted. Lungs free of infiltrate. Upper abdomen nonacute. IMPRESSION: No evidence for PE or acute aortic pathology. Chronic COPD with no mass or adenopathy. No chest effusion. Dictated by: Dictated on workstation # [id number]
--- NOTE | 2022-09-07 16:17 | History & Physical ---
DAVID JONES 09/07/22 1617: HPI History of Present Illness: Suman Flores is a 61 yo male who is admitted from the emergency department for acute respiratory distress. The patient has a history of end-stage COPD and is in a transitional/palliative care program but is requesting care and inpatient management today. He remarks he has had many years of COPD but had noticeable worsening 2 years ago with gradual decline in his respiratory symptoms since. The patient indicates he was at his baseline 2 days ago with normal levels of shortness of breath and an O2 saturation of 88-90%. Yesterday, he felt fine symptomatically but noticed his O2 saturation was around 86%. Today, he awoke feeling abnormally short of breath, with accompanying cough and bilateral frontal headache which he attributes to his cough, and an O2 saturation of 66% at home. He contacted his palliative care provider and was started on a steroid course, of which he has taken one dose total. The patient is on Trelegy Ellipta chronically. He presents out of concern for worsening shortness of breath and the low O2 saturation. He remarks he has previously been hospitalized for COPD, most recently in February of 2022, and he states he felt worse at that time than he does now. The patient denies any chest pain, fever, difficulty swallowing, sore throat, abdominal pain, or urinary symptoms. Source: patient Exam Limitations: no limitations Date seen by provider: Sep 07, 2022 Time Seen by Provider: 12:50 Attending Physician [facility] PCP Admitting Physician: Ruy Rachel MD Attending Physician: Ruy Rachel MD Consult Date of Admission Sep 07, 2022 at 13:51 Home Medications Home Medications Reviewed patient Home Medication Reconciliation performed by pharmacy medication reconciliations research instrumentation technician and/or nursing. Patients Allergies have been reviewed. Allergies Coded Allergies: diclofenac (Verified Allergy, Intermediate, SWELLING, 06/15/17) [id number] Hx Patient Social History Drug of Choice: DAILY MARIJUANA USE Smoking Status: Current Everyday Smoker 2nd Hand Smoke Exposure: Yes Recent Hopitalizations: No Alcohol Use?: No Substance type: Marijuana Tobacco type used: Cigarettes Have you traveled recently?: No Immunizations Up To Date Tetanus Booster (TDap): Less than 5yrs Influenza Vaccine Up-to-Date: Yes; Up-to-Date First/Initial COVID19 Vaccinat: 01/22/2021 Second COVID19 Vaccination Jose: 2020 Third COVID19 Vaccination Date: 2020 Past Medical History 1. LAURY 2. COPD 3. Tobaccoism 4. Seizure disorder- on dilantin 5. Chronic Headaches with chronic NSAID use 6. HTN 7. CAD 8. Diabetes 9. Hyperlipidemia Surgical Hx 1. Bilateral Carpal tunnel 2. Repair left second toe fracture 3. Tonsillectomy- childhood 4. 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 Family History: Cardiovascular disease Colon cancer FH: cancer 19 FATHER 19 MOTHER Review of Systems ([facility]) Constitutional: No chills, No fever Respiratory: cough, dyspnea on exertion, short of breath, wheezing Cardiovascular: No chest pain, No edema Gastrointestinal: No abdominal pain Genitourinary: No dysuria, No frequency, No hematuria, No incontinence Reviewed Test Results Reviewed Test Results Lab Laboratory Tests 09/07/22 11:07: White Blood Count 6.2, Red Blood Count 5.81H, Hemoglobin 16.6, Hematocrit 54, Mean Corpuscular Volume 92, Mean Corpuscular Hemoglobin 29, Mean Corpuscular Hemoglobin Concent 31L, Red Cell Distribution Width 15.5H, Platelet Count 151, Mean Platelet Volume 9.5, Immature Granulocyte % (Auto) 0, Neutrophils (%) (Auto) 74, Lymphocytes (%) (Auto) 17, Monocytes (%) (Auto) 5, Eosinophils (%) (Auto) 3, Basophils (%) (Auto) 1, Neutrophils # (Auto) 4.6, Lymphocytes # (Auto) 1.1, Monocytes # (Auto) 0.3, Eosinophils # (Auto) 0.2, Basophils # (Auto) 0.0, Immature Granulocyte # (Auto) 0.0, D-Dimer 3.68H, Sodium Level 137, Potassium Level 4.3, Chloride Level 93L, Carbon Dioxide Level 35H, Anion Gap 9, Blood Urea Nitrogen 14, Creatinine 1.11, Estimat Glomerular Filtration Rate 76, BUN/Creatinine Ratio 13, Glucose Level 169H, Calcium Level 9.2, Corrected Calcium 9.7, Total Bilirubin 0.4, Aspartate Amino Transf (AST/SGOT) 9, Alanine Aminotransferase (ALT/SGPT) 14, Alkaline Phosphatase 152H, Total Creatine Kinase 79, Creatine Kinase MB 3.8, Myoglobin 77.5, Troponin I 0.091H, B-Type Natriuretic Peptide 16.2, Total Protein 7.1, Albumin 3.4 09/07/22 11:13: Influenza Type A (RT-PCR) Not Detected, Influenza Type B (RT-PCR) Not Detected, SARS-CoV-2 RNA (RT-PCR) Not Detected 09/07/22 11:34: Blood Gas Puncture Site LT RAD, Blood Gas Patient Temperature 37.5, Arterial Blood pH 7.31*L, Arterial Blood Partial Pressure CO2 89*H, Arterial Blood Partial Pressure O2 70L, Arterial Blood HCO3 44*H, Arterial Blood Total CO2 46.3*H, Arterial Blood Oxygen Saturation 95, Arterial Blood Base Excess 16.9H, Kevin Test YES-POS, Blood Gas Ventilator Setting NO, Blood Gas Inspired Oxygen 4 L 09/07/22 12:54: Urine Opiates Screen NEGATIVE, Urine Oxycodone Screen NEGATIVE, Urine Methadone Screen NEGATIVE, Urine Propoxyphene Screen NEGATIVE, Urine Barbiturates Screen POSITIVEH, Ur Tricyclic Antidepressants Screen NEGATIVE, Urine Phencyclidine Screen NEGATIVE, Urine Amphetamines Screen NEGATIVE, Urine Methamphetamines Screen NEGATIVE, Urine Benzodiazepines Screen NEGATIVE, Urine Cocaine Screen NEGATIVE, Urine Cannabinoids Screen POSITIVEH 09/07/22 16:09: Glucometer 266H Radiology CHEST 1 VIEW, AP/PA ONLY IMPRESSION: No acute appearing abnormality. CT ANGIO CHEST W IMPRESSION: No evidence for PE or acute aortic pathology. Chronic COPD with no mass or adenopathy. No chest effusion. Physical Exam[facility]) Physical Exam Vital Signs VS - Last 72 Hours, by Label 09/07/22 09/07/22 09/07/22 09/07/22 11:05 11:13 12:35 14:30 Temp 37.5 37.5 Pulse 82 76 80 Resp 22 22 B/P (MAP) 136/80 (98) 131/60 Pulse Ox 94 96 93 O2 Delivery Nasal Cannula Nasal Cannula NIV Bilevel O2 Flow Rate 4.00 28.00 28.00 09/07/22 09/07/22 09/07/22 14:38 14:49 15:00 Temp 37.0 Pulse 73 88 85 Resp 20 18 24 B/P (MAP) 109/54 (81) 137/64 (93) 151/67 (105) Pulse Ox 92 93 94 O2 Delivery Nasal Cannula Nasal Cannula Nasal Cannula O2 Flow Rate 4.00 4.00 4.00 Capillary Refill : General Appearance: mild distress Neck: supple; No lymphadenopathy (R), No lymphadenopathy (L) Respiratory: decreased breath sounds; No accessory muscle use; wheezing (right upper lung field), other (on BiPAP) Cardiovascular: regular rate, rhythm, no edema, no gallop, no JVD, no murmur Peripheral Pulses: 2+ Dorsalis Pedis (R), 2+ Left Dors-Pedis (L), 2+ Radial Pulses (R), 2+ Radial Pulses (L) Extremities: no pedal edema Skin: normal color, warm/dry Assessment/Plan Assessment/Plan Admission Dx Acute COPD exacerbation Admission Status: Inpatient Order (span 2 midnights) (1) COPD exacerbation Status: Acute Assessment & Plan: Start on serial DuoNebs and inhaled steroid course. Monitor O2 saturations and obtain serial ABGs. (2) Elevated troponin Status: Acute Assessment & Plan: Obtain serial troponin. Monitor for cardiac symptoms. (3) Acute on chronic respiratory failure with hypoxemia Status: Acute Assessment & Plan: Start on serial DuoNebs and inhaled steroid course. Monitor O2 saturations and obtain serial ABGs. (4) Hypercapnemia Status: Acute Assessment & Plan: Start on serial DuoNebs and inhaled steroid course. Monitor O2 saturations and obtain serial ABGs. (5) CAD (coronary artery disease) Status: Chronic Assessment & Plan: Start on home medications. (6) Type 2 diabetes mellitus with complication Status: Chronic Assessment & Plan: Start on home medications. (7) Chronic combined systolic and diastolic congestive heart failure Status: Chronic Assessment & Plan: Start on home medications. Monitor respiratory symptoms. (8) D-dimer, elevated Assessment & Plan: CTA returned negative for signs of pulmonary embolism. (9) Respiratory acidosis Assessment & Plan: Obtain repeat ABGs. Monitor O2 saturation and respiratory symptoms. RUY RACHEL MD 09/08/22 1705: Home Medications Allergies Coded Allergies: diclofenac (Verified Allergy, Intermediate, SWELLING, 06/15/17) BYS-Tbkzjo-Gavtij Hx Family Medical History Family History: Cardiovascular disease Colon cancer FH: cancer 19 FATHER 19 MOTHER Supervisory-Addendum Brief Verification & Attestation Participated in pt care: history, MDM, physical Personally performed: exam, history, MDM, supervision of care Care discussed with: Medical Student Procedures: n/a I personally saw and examined patient and did my own history and exam which confirm that documented by the medical student. Starting IV solumedrol followed by prednisone for COPD exacerbation along with cefdinir given severity of exacerbation. Bipap for hyperacapnia. DAVID JONES Sep 07, 2022 16:17 RUY RACHEL MD Sep 08, 2022 17:05
--- NOTE | 2022-09-07 16:25 | Tele-ICU Progress Note ---
Progress Note Video assessment done , Hemodynamically stable Available charting reviewed, discussed with RN NO TELE-ICU CONSULT REQUESTED CONTINUE TO MONITOR PER USUAL TELE-ICU PROTOCOL No need for Tele-ICU interventions Plans as delineated by bedside physicians / consultants A/P Acute hypoxic and hypercapneic resp failure - with AECOPD. CTchest - neg for PE , PNA -possible LRTI AECOPD ( Severe COPD end stage at baseline , current smoker - started on steroids 09/06 - to cont now IV SM 60 q6 - nebs Elv troponin - cardiology consulted -AC as per cards - received lovenox 120 in ER - LRTI - NEG coviid and flu - po abx started Chronic respiratory failure -Oxygen dependent at home 4 L Elv ddimer - CTA neg foer PE Oxygen dependent Current smoker CAD PVD DNR and DNI.. on hospice for ESCOPD Focused Exam Height, Weight, BMI Height: 6'0" Weight: 258lbs. 0.0oz. 117.388326bo; 38.68 BMI Method:Stated FAWN KEE MD Sep 07, 2022 16:25
[2022-09-07] MEDS: methylPREDNISolone 125 MG (Solu-MEDROL) VIAL IV SCH ×2 (16:26→23:25)
[2022-09-07] MEDS: inSUlin ASPART (NovoLOG) 1 UNIT/0.01 ML (CHARGE PER UNIT) SC SCH ×2 (16:26→20:26)
[2022-09-07] MEDS ORDERED: ENOXAPARIN 40 MG/0.4 ML (LOVENOX) SYR SC SCH (16:30)
[2022-09-07] MEDS ORDERED: RT-ALBUTEROL SULF 2.5 MG/3 ML PRE-MIX VIAL INH SCH (18:00)
[2022-09-07] MEDS: RT-ALBUTEROL/IPRATROPIUM 3 ML (DUONEB) VIAL IH SCH ×2 (18:43→22:50)
[2022-09-07] MEDS: CEFDINIR 300 MG (OMNICEF) CAP PO SCH (20:02)
[2022-09-07] MEDS ORDERED: ROSUVASTATIN 20 MG (CRESTOR) TABLET PO SCH (21:00)
[2022-09-07] MEDS ORDERED: PHENYTOIN 100 MG (DILANTIN) CAP PO ONE (22:30)
[2022-09-07] MEDS: GABAPENTIN 600 MG (NEURONTIN) TAB PO SCH (23:23)
[2022-09-08] VITALS (10 sets, daily range): BP systolic 119–165; BP diastolic 50–114
[2022-09-08] MEDS: RT-ALBUTEROL/IPRATROPIUM 3 ML (DUONEB) VIAL IH SCH ×3 (03:01→10:44)
[2022-09-08] MEDS: methylPREDNISolone 125 MG (Solu-MEDROL) VIAL IV SCH (05:04)
[2022-09-08 05:32] LABS: HEMATOCRIT 54 % (40-54); HEMOGLOBIN 16.5 g/dL (13.3-17.7); MEAN CORPUSCULAR HEMOGLOBIN 28 pg (25-34); MEAN CORPUSCULAR HGB CONC 31 g/dL (32-36); MEAN CORPUSCULAR VOLUME 91 fL (80-99); MEAN PLATELET VOLUME 9.5 fL (9.0-12.2); PLATELET COUNT 168 10^3/uL (130-400); WHITE BLOOD COUNT 6.9 10^3/uL (4.3-11.0)
[2022-09-08 05:46] LABS: POTASSIUM 5.2 MMOL/L (3.6-5.0)
[2022-09-08 05:47] LABS: CALCIUM 9.3 MG/DL (8.5-10.1)
[2022-09-08 05:51] LABS: CREATININE SERUM 0.98 MG/DL (0.60-1.30); PHOSPHORUS 3.3 MG/DL (2.3-4.7)
[2022-09-08] MEDS: inSUlin ASPART (NovoLOG) 1 UNIT/0.01 ML (CHARGE PER UNIT) SC SCH ×2 (05:52→10:53)
[2022-09-08 05:54] LABS: MAGNESIUM 1.9 MG/DL (1.6-2.4)
[2022-09-08] MEDS ORDERED: ISOSORBIDE MONONITRATE 60 MG (IMDUR) TAB PO SCH (06:30)
[2022-09-08] MEDS ORDERED: FUROSEMIDE 40 MG (LASIX) TAB PO SCH (07:00)
[2022-09-08] MEDS ORDERED: RT-ALBUTEROL SULF 2.5 MG/3 ML PRE-MIX VIAL INH PRN (07:15)
[2022-09-08] MEDS: GABAPENTIN 600 MG (NEURONTIN) TAB PO SCH (08:03)
[2022-09-08] MEDS: CEFDINIR 300 MG (OMNICEF) CAP PO SCH (08:04)
--- NOTE | 2022-09-08 08:51 | Cardiology Progress Note ---
Subjective Date Seen by Provider: Sep 08, 2022 Time Seen by Provider: 08:10 Subjective/Events-last exam Pt reports feeling much better than yesterday. He feels less short of breath and his back at his baseline O2 level of 4L. He denies CP, edema, syncope, and palpitations. He is in no pain. Dr. Weber: He feels as though his breathing is back to his baseline chronic shortness of breath. He denies chest discomfort, palpitations, syncope, or ankle edema. He wants to go home. Certain portions of this document may have been dictated utilizing voice recognition technology. Inherent to this technology, typographical and grammatical errors may exist. As much as I am diligent to identify and correct these mistakes, some errors may remain in the document. Review of Systems General: No Fatigue; Appetite HEENT: No Head Aches, No Eye Pain Pulmonary: Dyspnea (improved); No Pleuritic Chest Pain Cardiovascular: No: Chest Pain, Palpitations, Edema, Lt Headedness Gastrointestinal: No: Vomiting, Abdominal Pain Genitourinary: No Dysuria, No Incontinence Musculoskeletal: other (denies pain anywhere) Neurological: No: Weakness, Confusion Focused Exam Respiratory: Chest Non Tender, No Accessory Muscle Use, No Respiratory Distress, Decreased Breath Sounds (bilat); No Wheezing Cardiovascular: Regular Rate, Rhythm (recorded slight bradycardia overnight, currently normal rate) Skin: normal color, warm/dry Objective-Cardiology Exam Last Set of Vital Signs Vital Signs 09/08/22 09/08/22 10:56 12:00 Temp 36.8 Pulse 85 Resp 19 B/P (MAP) 153/86 (108) Pulse Ox 95 O2 Delivery Nasal Cannula O2 Flow Rate 4.00 I&O Intake and Output 09/08/22 00:00 Intake Total 500 ml Output Total 200 ml Balance 300 ml Intake Oral 500 ml Output Urine Total 200 ml Daily Weight Change No General: Alert, Oriented X3, Cooperative, No Acute Distress HEENT: Atraumatic, EOMI Neck: Supple Lungs: Other (diminished breath sounds bilat; no wheezing present; symmetrical chest expansion; no iWOB) Heart: Regular Rate Abdomen: Soft Extremities: Other (improved edema with lasix) Skin: No Significant Lesion Neuro: Normal Speech, Normal Tone Psych/Mental Status: Mental Status NL, Mood NL Other physical findings Dr. Weber: General: Alert. No acute distress. Eye: No xanthelasma. HENT: Normocephalic. Neck: Jugular venous pressure does not appear elevated. Respiratory: Lungs have diffusely decreased breath sounds with scattered rhonchi and wheezes. Respirations are non-labored. Breath sounds are equal. Symmetrical chest wall expansion. Cardiovascular: Normal rate. Regular rhythm. Distant S1/S2. No murmur. No gallop. No edema. Gastrointestinal: Soft. Normal bowel sounds. Skin: Warm. Dry. Neurologic: Alert and oriented to person, place, time. Cranial nerves 3-11 g rossly intact. Psychiatric: Cooperative. Appropriate mood & affect. Results Lab Laboratory Tests 09/08/22 04:55 09/08/22 09:56 A/P-Cardiology Assessment/Plan Elevated troponin HFpEF CAD w/angina pectoris acute on chronic respiratory failure with hypoxemia Pulm HTN Peripheral arterial dx Essential HTN Mixed HLD T2DM Smokes -continue his aspirin, clopidogrel, beta-arcadio, long-acting nitrates and statin medication - alcohol and drug counselor on smoking sessation -Pt stable from cardiac standpoint, consider d/c home with return to baseline function Diagnosis/Problems Diagnosis/Problems (1) Coronary artery disease involving quileute coronary artery with angina pectoris Assessment & Plan: He is not having any angina at this point in time on 2 antianginal medications. I recommend he continue on the current guideline directed medical therapy. (2) Elevated troponin Status: Acute Assessment & Plan: He may have had a type II non-ST elevation myocardial infarction due to the acute on chronic respiratory failure related to his underlying pulmonary disease with ongoing cigarette smoking. There is no indication for an ischemic evaluation at this time. (3) Chronic heart failure with preserved ejection fraction (HFpEF) Status: Chronic Assessment & Plan: As above, suspect the majority of his current symptoms are related to his COPD and do not represent an exacerbation of his heart failure. (4) Pulmonary hypertension Status: Chronic Assessment & Plan: This 2 is probably related to his underlying pulmonary disease with perhaps some component related to his chronic heart failure. He should continue with home oxygen if he has not already using this. (5) Essential hypertension Status: Chronic Assessment & Plan: Continue current antihypertensive medication. (6) Mixed hyperlipidemia Status: Chronic Assessment & Plan: Continue statin medication. (7) Cigarette smoker Assessment & Plan: Cigarette smoking cessation has been counseled on numerous occasions. He states he has tried a number of different methods for cessation including nicotine replacement and hypnosis. None have helped him. I suggested he try acupuncture. Supervisory-Addendum Brief Verification & Attestation Participated in pt care: history, MDM, physical Personally performed: exam, history, MDM Care discussed with: Medical Student Procedures: n/a Results interpretation: Verified all documentation I personally interviewed and examined the patient and formulated my own impression and plan independently of the medical student. JANICE VÁZQUEZ Sep 08, 2022 08:51 JENNA WEBER JR, MD Sep 08, 2022 11:45
[2022-09-08] MEDS ORDERED: ASPIRIN 81 MG CHEW (CHILDREN'S ASA) PO SCH (09:00)
[2022-09-08] MEDS ORDERED: NON-FORMULARY MEDICATION 1 EA EA (Isosorbide Mononitrate (Isosorbide Mononitrate ER) 120 M PO SCH (09:00)
[2022-09-08] MEDS ORDERED: FUROSEMIDE 80 MG PO SCH (09:00)
[2022-09-08] MEDS ORDERED: CLOPIDOGREL 75 MG (PLAVIX) TABLET PO SCH (09:00)
[2022-09-08] MEDS ORDERED: FURO80TA3 PO (09:58)
[2022-09-08] MEDS ORDERED: OMEP20CA18 PO (09:58)
[2022-09-08] MEDS ORDERED: LOSA25TA41 PO (09:58)
[2022-09-08] MEDS ORDERED: PRD10T PO (09:58)
[2022-09-08] MEDS ORDERED: FLUT1BLS15 INH (09:58)
[2022-09-08] MEDS ORDERED: AMOX1TAB12 PO (09:58)
[2022-09-08] MEDS ORDERED: ASPI-1238 PO (09:58)
[2022-09-08] MEDS ORDERED: ROFL500T PO (09:58)
[2022-09-08] MEDS ORDERED: PRD20T PO (10:50)
[2022-09-08] MEDS ORDERED: CEFD300C3 PO (10:50)
--- NOTE | 2022-09-08 10:56 | Discharge Summary ---
DAVID JONES 09/08/22 1055: Discharge Summary Hospital Course Problems Reviewed?: Yes Problems/Diagnosis: (1) COPD exacerbation Status: Acute Assessment & Plan: Improved with albuterol serial DuoNeb treatments and inhaled steroid course. VS remained stable throughout course. (2) Elevated troponin Status: Acute Assessment & Plan: Cardiology followed up with patient and determined him to be low-risk for ACS, instructed to patient to continue taking aspirin, clopidogrel, statin, beta-arcadio, and nitrates. (3) Acute on chronic respiratory failure with hypoxemia Status: Acute Assessment & Plan: Improved with albuterol serial DuoNeb treatments and inhaled steroid course. VS remained stable throughout course. (4) Hypercapnemia Status: Acute Assessment & Plan: Improved with albuterol serial DuoNeb treatments and inhaled steroid course. VS remained stable throughout course. (5) CAD (coronary artery disease) Status: Chronic Assessment & Plan: Continue home medications. Follow up with primary care. (6) Type 2 diabetes mellitus with complication Status: Chronic Assessment & Plan: Continue home medications. Follow up with primary care. (7) Chronic combined systolic and diastolic congestive heart failure Status: Chronic Assessment & Plan: Continue home medications. Follow up with primary care. (8) D-dimer, elevated Assessment & Plan: CTA returned negative for signs of pulmonary embolism. (9) Respiratory acidosis Assessment & Plan: Vital signs showed improvement in respiratory rate, CMP showed improvement in CO2 levels. Hospital Course Date of Admission: Sep 07, 2022 at 13:51 Admission Diagnosis : Family Physician/Provider: Baron Gupta Date of Discharge: 09/08/22 Discharge Diagnosis: Acute COPD exacerbation Hospital Course: Suman Flores is a 61 yo male who was admitted from the ED for acute COPD exacerbation. 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 The patient had acute worsening of his respiratory symptoms on 09/06 and awoke on 09/07 with O2 saturation of 66%, prompting his arrival to the ED. He was started on BiPAP in the ED and labs were drawn revealing respiratory acidosis. The patient was admitted for continued COPD management. The patient received Cefdinir for possible infiltrate on XR, serial DuoNebs, and a course of Solu-Medrol. Patient on evaluation on 09/08 has improved respiratory symptoms and states he feels he is at his baseline. His cough has improved significantly and his headache is resolved. The patient had no concerns for chills, chest pain, abdominal pain, urinary symptoms, or appetite change. Vital signs are stable on 4L of O2. Labs and Pending Lab Test: Laboratory Tests 09/07/22 11:07: White Blood Count 6.2, Red Blood Count 5.81H, Hemoglobin 16.6, Hematocrit 54, Mean Corpuscular Volume 92, Mean Corpuscular Hemoglobin 29, Mean Corpuscular Hemoglobin Concent 31L, Red Cell Distribution Width 15.5H, Platelet Count 151, Mean Platelet Volume 9.5, Immature Granulocyte % (Auto) 0, Neutrophils (%) (Auto) 74, Lymphocytes (%) (Auto) 17, Monocytes (%) (Auto) 5, Eosinophils (%) (Auto) 3, Basophils (%) (Auto) 1, Neutrophils # (Auto) 4.6, Lymphocytes # (Auto) 1.1, Monocytes # (Auto) 0.3, Eosinophils # (Auto) 0.2, Basophils # (Auto) 0.0, Immature Granulocyte # (Auto) 0.0, D-Dimer 3.68H, Sodium Level 137, Potassium Level 4.3, Chloride Level 93L, Carbon Dioxide Level 35H, Anion Gap 9, Blood Urea Nitrogen 14, Creatinine 1.11, Estimat Glomerular Filtration Rate 76, BUN/Creatinine Ratio 13, Glucose Level 169H, Calcium Level 9.2, Corrected Calcium 9.7, Total Bilirubin 0.4, Aspartate Amino Transf (AST/SGOT) 9, Alanine Aminotransferase (ALT/SGPT) 14, Alkaline Phosphatase 152H, Total Creatine Kinase 79, Creatine Kinase MB 3.8, Myoglobin 77.5, Troponin I 0.091H, B-Type Natriuretic Peptide 16.2, Total Protein 7.1, Albumin 3.4 09/07/22 11:13: Influenza Type A (RT-PCR) Not Detected, Influenza Type B (RT-PCR) Not Detected, SARS-CoV-2 RNA (RT-PCR) Not Detected 09/07/22 11:34: Blood Gas Puncture Site LT RAD, Blood Gas Patient Temperature 37.5, Arterial Blood pH 7.31*L, Arterial Blood Partial Pressure CO2 89*H, Arterial Blood Partial Pressure O2 70L, Arterial Blood HCO3 44*H, Arterial Blood Total CO2 46.3*H, Arterial Blood Oxygen Saturation 95, Arterial Blood Base Excess 16.9H, Kevin Test YES-POS, Blood Gas Ventilator Setting NO, Blood Gas Inspired Oxygen 4 L 09/07/22 12:54: Urine Opiates Screen NEGATIVE, Urine Oxycodone Screen NEGATIVE, Urine Methadone Screen NEGATIVE, Urine Propoxyphene Screen NEGATIVE, Urine Barbiturates Screen POSITIVEH, Ur Tricyclic Antidepressants Screen NEGATIVE, Urine Phencyclidine Screen NEGATIVE, Urine Amphetamines Screen NEGATIVE, Urine Methamphetamines Screen NEGATIVE, Urine Benzodiazepines Screen NEGATIVE, Urine Cocaine Screen NEGATIVE, Urine Cannabinoids Screen POSITIVEH 09/07/22 16:09: Glucometer 266H 09/07/22 20:04: Glucometer 273H 09/08/22 04:55: White Blood Count 6.9, Red Blood Count 5.87H, Hemoglobin 16.5, Hematocrit 54, Mean Corpuscular Volume 91, Mean Corpuscular Hemoglobin 28, Mean Corpuscular Hemoglobin Concent 31L, Red Cell Distribution Width 15.5H, Platelet Count 168, Mean Platelet Volume 9.5, Sodium Level 136, Potassium Level 5.2H, Chloride Level 94L, Carbon Dioxide Level 31, Anion Gap 11, Blood Urea Nitrogen 24H, Creatinine 0.98, Estimat Glomerular Filtration Rate 88, BUN/Creatinine Ratio 24, Glucose Level 174H, Calcium Level 9.3, Phosphorus Level 3.3, Magnesium Level 1.9 09/08/22 09:56: Potassium Level 4.7 09/08/22 10:30: Glucometer 256H Microbiology 09/07/22 Gram Stain - Final, Resulted 09/07/22 Sputum Culture, Resulted Pending Home Meds Active Prednisone 20 Mg Tab 40 Mg PO Q24HR Cefdinir 300 Mg Capsule 300 Mg PO BID 5 Days Reported Omeprazole 20 Mg Capsule.dr 20 Mg PO BID Losartan Potassium 25 Mg Tablet 50 Mg PO DAILY TAKES 2 (25MG) TABS Trelegy Ellipta 200-62.5-25 (Fluticasone/Umeclidin/Vilanter) 200-62.5 Blst.w.dev 1 Puff INH DAILY Daliresp (Roflumilast) 500 Mcg Tablet 500 Mcg PO DAILY Furosemide 80 Mg Tablet 80 Mg PO DAILY Aspirin EC (Aspirin) 81 Mg Tablet.dr 81 Mg PO DAILY Albuterol Sulfate 2.5 Mg/3 Ml (0.083 %) Vial.neb 3 Ml NEB Q4H Levemir Flextouch (Insulin Detemir) 100 Unit/Ml (3 Ml) Insuln.pen 30 Units SC HS Isosorbide Mononitrate ER (Isosorbide Mononitrate) 120 Mg Tab.er.24h 120 Mg PO DAILY Gabapentin 600 Mg Tablet 600 Mg PO BID Rosuvastatin Calcium 20 Mg Tablet 20 Mg PO HS Nitroglycerin 0.4 Mg Tab.subl 0.4 Mg SL UD PRN Metoprolol Succinate 25 Mg Tab.er.24h 25 Mg PO BID Clopidogrel (Clopidogrel Bisulfate) 75 Mg Tablet 75 Mg PO DAILY Ventolin Hfa (Albuterol Sulfate) 18 Gm Hfa.aer.ad 1 Puff INH Q4H PRN Phenytoin Sodium Extended 100 Mg Capsule 200 Mg PO BID TAKE 2 (100MG) TABS Activity as Tolerated: Yes Consulations Consultations Dr. Weber of cardiology Discharge Physical Examination Allergies: Coded Allergies: diclofenac (Verified Allergy, Intermediate, SWELLING, 06/15/17) General Appearance: No Apparent Distress Respiratory: Decreased Breath Sounds, Wheezing (in all lung mcgill) Cardiovascular: Regular Rate, Rhythm, No Edema, No Gallop, No Murmur, Normal Peripheral Pulses Gastrointestinal: Normal Bowel Sounds, No Pulsatile Mass, Non Tender, Soft Extremity: Non Tender, No Calf Tenderness, No Pedal Edema Skin: Normal Color, Warm/Dry Neurologic/Psychiatric: Alert, Oriented x3 Discharge Summary Date of Admission Sep 07, 2022 at 13:51 Date of Discharge Discharge Date: Sep 08, 2022 Discharge Time: 11:00 Consults/Procedures Consulations Dr. Weber of cardiology Discharge Diagnosis Acute end-stage COPD exacerbation (1) Elevated troponin Status: Acute Assessment & Plan: Per cardiology, he has a minimally elevated troponin level and no angina. He has no ischemic changes on ECG. Cardiology suspects a small type II non-ST elevation myocardial infarction due to his acute on chronic respiratory failure with supply/demand mismatch. They recommend he continue his aspirin, clopidogrel, beta-arcadio, long-acting nitrates and statin medication. Cardiology does not recommend an ischemic evaluation at this time. (2) Chronic heart failure with preserved ejection fraction (HFpEF) Status: Chronic Assessment & Plan: His BNP level is normal and his chest CT did not show any signs of pulmonary edema or pleural effusions. I suspect the majority of his shortness of breath is related to his chronic obstructive pulmonary disease as outlined above. I have reordered his furosemide. His most recent echocardiogram in February 2022 showed normalization of his ejection fraction. (3) Coronary artery disease involving nen[place] coronary artery with angina pectoris Assessment & Plan: Troponin is mildly elevated but he is asymptomatic for angina at this time. Continue medical management at home with aspirin, clopidogrel, beta-arcadio, nitrates, and statin. (4) Acute on chronic respiratory failure with hypoxemia Status: Acute Assessment & Plan: Continue taking home medications, follow up with primary care. (5) Pulmonary hypertension Status: Chronic Assessment & Plan: Continue home medications. Follow up with primary care. (6) Peripheral arterial disease Assessment & Plan: Patient has had previous peripheral stent placement. Continue managing outpatient. (7) Essential hypertension Status: Chronic Assessment & Plan: Continue home medications. Follow up with primary care. (8) Mixed hyperlipidemia Status: Chronic Assessment & Plan: Continue home medications. Follow up with primary care. (9) Type 2 diabetes mellitus with complication Status: Chronic Assessment & Plan: Continue home medications. Follow up with primary care. RUY PEREIRA MD 09/08/22 4748: Discharge Summary Hospital Course Assessment/Pt DC Instructions Follow up with primary physician within a week of discharge. Discharge Physical Examination Allergies: Coded Allergies: diclofenac (Verified Allergy, Intermediate, SWELLING, 06/15/17) Supervisory-Addendum Brief Verification & Attestation Participated in pt care: history, MDM, physical Personally performed: exam, history, MDM, supervision of care Care discussed with: Medical Student Procedures: n/a I personally saw and examined patient and agree with documentation with these exceptions- patient treated with IV solumedrol followed by oral prednisone rather than inhaled steroid, and used cefdinir for severe COPD exacerbation, not related to CXR findings. DAVID JONES Sep 08, 2022 10:55 RUY PEREIRA MD Sep 08, 2022 17:08
--- NOTE | 2022-09-08 11:12 | Progress Note ---
DAVID JONES 09/08/22 1112: Subjective Subjective/Events-last exam Patient reports he feels improved after one night in the ICU and serial DuoNebs and a course of Solu-Medrol. The patient indicates his shortness of breath has returned to its baseline level of 3/10 at this time. He endorses significant improvement of his cough and complete resolution of his headache. He has no other concerns at this time. The patient denies any chills, chest pain, abdominal pain, urinary symptoms, decreased appetite, leg swelling, or leg pain. Review of Systems General: No Chills HEENT: No Head Aches Pulmonary: Dyspnea (baseline), Cough (baseline) Cardiovascular: No: Chest Pain Gastrointestinal: No: Abdominal Pain Genitourinary: No Dysuria, No Frequency, No Incontinence Objective Exam Last Set of Vital Signs Vital Signs Date Time Temp Pulse Resp B/P (MAP) Pulse Ox O2 Delivery O2 Flow Rate FiO2 09/08/22 10:56 69 19 145/73 (97) 92 Nasal Cannula 4.00 09/08/22 07:57 36.0 Capillary Refill : I&O Intake and Output 09/07/22 23:59 Intake Total 500 ml Output Total 200 ml Balance 300 ml Intake Oral 500 ml Output Urine Total 200 ml Daily Weight Change No General: Alert, Oriented X3, Cooperative, No Acute Distress Neck: Supple Lungs: Other (decreased breath sounds throughout. diffuse wheezing in all lung mcgill.) Heart: Regular Rate, Normal S1, Normal S2, No Murmurs Abdomen: Normal Bowel Sounds, Soft, No Tenderness, No Masses Extremities: No Clubbing, No Cyanosis, No Edema, Normal Pulses, No Tenderness/Swelling Skin: No Rashes Neuro: Normal Speech Results/Procedures Lab Laboratory Tests 09/07/22 11:34: Blood Gas Puncture Site LT RAD, Blood Gas Patient Temperature 37.5, Arterial Blood pH 7.31*L, Arterial Blood Partial Pressure CO2 89*H, Arterial Blood Partial Pressure O2 70L, Arterial Blood HCO3 44*H, Arterial Blood Total CO2 46.3*H, Arterial Blood Oxygen Saturation 95, Arterial Blood Base Excess 16.9H, Kevin Test YES-POS, Blood Gas Ventilator Setting NO, Blood Gas Inspired Oxygen 4 L 09/07/22 12:54: Urine Opiates Screen NEGATIVE, Urine Oxycodone Screen NEGATIVE, Urine Methadone Screen NEGATIVE, Urine Propoxyphene Screen NEGATIVE, Urine Barbiturates Screen POSITIVEH, Ur Tricyclic Antidepressants Screen NEGATIVE, Urine Phencyclidine Screen NEGATIVE, Urine Amphetamines Screen NEGATIVE, Urine Methamphetamines Screen NEGATIVE, Urine Benzodiazepines Screen NEGATIVE, Urine Cocaine Screen NEGATIVE, Urine Cannabinoids Screen POSITIVEH 09/07/22 16:09: Glucometer 266H 09/07/22 20:04: Glucometer 273H 09/08/22 04:55: White Blood Count 6.9, Red Blood Count 5.87H, Hemoglobin 16.5, Hematocrit 54, Mean Corpuscular Volume 91, Mean Corpuscular Hemoglobin 28, Mean Corpuscular Hemoglobin Concent 31L, Red Cell Distribution Width 15.5H, Platelet Count 168, Mean Platelet Volume 9.5, Sodium Level 136, Potassium Level 5.2H, Chloride Level 94L, Carbon Dioxide Level 31, Anion Gap 11, Blood Urea Nitrogen 24H, Creatinine 0.98, Estimat Glomerular Filtration Rate 88, BUN/Creatinine Ratio 24, Glucose Level 174H, Calcium Level 9.3, Phosphorus Level 3.3, Magnesium Level 1.9 09/08/22 09:56: Potassium Level 4.7 09/08/22 10:30: Glucometer 256H Microbiology 09/07/22 Gram Stain - Final, Resulted 09/07/22 Sputum Culture, Resulted Pending Radiology CHEST 1 VIEW, AP/PA ONLY IMPRESSION: No acute appearing abnormality. CT ANGIO CHEST W IMPRESSION: No evidence for PE or acute aortic pathology. Chronic COPD with no mass or adenopathy. No chest effusion. Assessment/Plan Assessment/Plan (1) COPD exacerbation Status: Acute Assessment & Plan: Improved with albuterol serial DuoNeb treatments and inhaled steroid course. VS remained stable throughout course. (2) Elevated troponin Status: Acute Assessment & Plan: Cardiology followed up with patient and determined him to be low-risk for ACS, instructed to patient to continue taking aspirin, clopidogrel, statin, beta-arcadio, and nitrates. (3) Acute on chronic respiratory failure with hypoxemia Status: Acute Assessment & Plan: Improved with albuterol serial DuoNeb treatments and inhaled steroid course. VS remained stable throughout course. (4) Hypercapnemia Status: Acute Assessment & Plan: Improved with albuterol serial DuoNeb treatments and inhaled steroid course. VS remained stable throughout course. (5) CAD (coronary artery disease) Status: Chronic Assessment & Plan: Continue home medications. Follow up with primary care. (6) Type 2 diabetes mellitus with complication Status: Chronic Assessment & Plan: Continue home medications. Follow up with primary care. (7) Chronic combined systolic and diastolic congestive heart failure Status: Chronic Assessment & Plan: Continue home medications. Follow up with primary care. (8) D-dimer, elevated Assessment & Plan: CTA returned negative for signs of pulmonary embolism. (9) Respiratory acidosis Assessment & Plan: Vital signs showed improvement in respiratory rate, CMP showed improvement in CO2 levels. Patient refused repeat ABG. RUY PEREIRA MD 09/08/22 1706: Supervisory-Addendum Brief Verification & Attestation Participated in pt care: history, MDM, physical Personally performed: exam, history, MDM, supervision of care Care discussed with: Medical Student Procedures: n/a See d/c summary. DAVID JONES Sep 08, 2022 11:12 RUY PEREIRA MD Sep 08, 2022 17:06
[2022-09-08] MEDS ORDERED: ENOXAPARIN 40 MG/0.4 ML (LOVENOX) SYR SC SCH (12:00)
--- NOTE | 2022-09-08 18:38 | Physician Query Clarification ---
Physician Query-General Query to Physician: The medical record reflects the following clinical scenario: The patient, in the setting of History/Risk factors, CAD with Angina, HTN, DM Clinical Findings may have had a type II non-ST elevation myocardial infarction due to the acute on chronic respiratory failure, troponin I 0.091, SOA at rest Treatment: aspirin, clopidogrel, statin, beta-arcadio, and nitrates, Cardiology consultation with this recommendation "no indication for an ischemic evaluation at this time" Question: Do you agree with the impression of NSTEMI Type [address] Aubrey Weber? 1. Yes; will document NSTEMI Type II, present on admission in the Progress Notes 2. No; will continue current documentation in the Progress Notes 3. Other; will document explanation of clinical findings 4. Clinically undetermined; no explanation for clinical findings Please clarify and document your clinical opinion in the Progress Notes and Discharge Summary including the definitive and/or presumptive diagnosis, (suspected or probable), related to the above clinical findings. Please include clinical findings supporting your diagnosis. In responding to this query, please exercise your independent professional judgment. The purpose of this communication is to more accurately reflect the complexity of your patients condition. The fact that a question is asked does not imply that any particular answer is desired or expected. Thank you for timely response to this clarification. Anastasiia Wiley RN, MSN Clinical Cook Syrup Maker [phone] [email or web address] PHYSICIAN RESPONSE: Based on the clinical findings in the record, please respond to the query above on this document as an addendum. Physician Response: Physician Response 1 If you have questions please contact: Director Sales Training: Ext: Thank you for your time and cooperation. Clinical Cook Syrup Maker/Director Sales Training This is a permanent part of the medical record ANASTASIIA WILEY Sep 08, 2022 18:38 RUY PEREIRA MD Sep 10, 2022 08:54
[2022-09-09] MEDS ORDERED: predniSONE 20 MG TAB PO SCH (09:00)
== END 2022-09-08 12:50 | disposition home or self-care (01) | DRG 189 ==
LOC: EDUNIT# 10:59 → ER 11:01 → CSD 13:51 → ICU 14:24
PROVIDERS: ADMIT Family Medicine; ATTEND Family Medicine
PROC: 5A09357 Assistance with Respiratory Ventilation, Less than 24 Consecutive Hours, Continuous Positive Airway Pressure (ICD-10-PCS; principal; 2022-09-07)
DX: J96.22 Acute and chronic respiratory failure with hypercapnia (principal); I21.A1 Myocardial infarction type 2; J44.1 Chronic obstructive pulmonary disease with (acute) exacerbation; I50.42 Chronic combined systolic (congestive) and diastolic (congestive) heart failure; E87.29 Other acidosis; J96.21 Acute and chronic respiratory failure with hypoxia; I25.119 Atherosclerotic heart disease of native coronary artery with unspecified angina pectoris; E11.51 Type 2 diabetes mellitus with diabetic peripheral angiopathy without gangrene; I11.0 Hypertensive heart disease with heart failure; E78.2 Mixed hyperlipidemia; F17.210 Nicotine dependence, cigarettes, uncomplicated; I27.20 Pulmonary hypertension, unspecified; Z99.81 Dependence on supplemental oxygen; Z66 Do not resuscitate; Z51.5 Encounter for palliative care; G47.33 Obstructive sleep apnea (adult) (pediatric); G40.909 Epilepsy, unspecified, not intractable, without status epilepticus; R51.9 Headache, unspecified; Z79.82 Long term (current) use of aspirin; Z79.4 Long term (current) use of insulin; Z79.899 Other long term (current) drug therapy; Z95.5 Presence of coronary angioplasty implant and graft; K21.9 Gastro-esophageal reflux disease without esophagitis; M19.90 Unspecified osteoarthritis, unspecified site; G89.29 Other chronic pain; M54.9 Dorsalgia, unspecified; F41.9 Anxiety disorder, unspecified; Z20.822 Contact with and (suspected) exposure to COVID-19; J22 Unspecified acute lower respiratory infection
CPT/HCPCS: 36415; 71045; 71275; 80048; 80053; 80306; 82550; 82553; 82805; 82947; 83735; 83874; 83880; 84100; 84132; 84484; 85025; 85027; 85379; 87070; 87205; 87636; 93005; 94640; 94660; 94664

== ENCOUNTER 2022-10-01 13:24 | Emergency (ER) | payer MEDICARE, MEDICAID ==
[~2022-10-01] VITALS: Ht 177.8 cm; Wt 122.4 kg
[~2022-10-01 13:24] MED LIST changes: +AMOX1TAB12 PO; +ASPI-1238 PO; +FLUT1BLS15 INH; +ROFL500T PO
[2022-10-01] MEDS ORDERED: predniSONE 20 MG TAB PO ONE (14:30)
[2022-10-01] MEDS ORDERED: RT-ALBUTEROL/IPRATROPIUM 3 ML (DUONEB) VIAL INH ONE (14:30)
--- NOTE | 2022-10-01 14:38 | Diagnostic Imaging Report ---
INDICATION: Sore throat x 1 week. TECHNIQUE: Single view chest, 2:19 PM. CORRELATION STUDY: 09/07/2022. FINDINGS: Heart size remains borderline enlarged, stable. Vasculature overall within normal limits. Mildly prominent appearance about the lung parenchyma, stable. No superimposed infiltrate. Old healed right clavicle fracture. IMPRESSION: Cardiac enlargement without failure. No infiltrate. Dictated by: Dictated on workstation # [id number]
[2022-10-01] MEDS ORDERED: PRD20T PO (14:50)
--- NOTE | 2022-10-01 14:50 | ED General ---
General Chief Complaint: Cough/Cold/Flu Symptoms Stated Complaint: SORE THROAT Nursing Triage Note: pt arrived pov with complaints of sore throat x1 week. pt was tested for covid and step at [facility] last Monday and has not recieved results yet. pt has had exposer to flu and strep from family members. Source of Information: Patient Exam Limitations: No Limitations History of Present Illness Date Seen by Provider: Oct 01, 2022 Time Seen by Provider: 14:45 Initial Comments Patient is a 61-year-old male who presents to the emergency department for evaluation of sore throat and cough for the last week. He states he has had family numbers who have recently tested positive for flu and strep. Patient has a history of COPD for which she is on oxygen chronically. He states he has not had to increase his oxygen. He also states he has had some body aches. He has not been taking anything for the symptoms. Allergies and Home Medications Allergies Coded Allergies: diclofenac (Verified Allergy, Intermediate, SWELLING, 06/15/17) Patient Home Medication List Home Medication List Reviewed: Yes Albuterol Sulfate (Ventolin Hfa) 18 Gm Hfa.aer.ad, 1 PUFF INH Q4H PRN for SHORTNESS OF BREATH, (Reported) Entered as Reported by: WALE PERRY on 03/13/20 1828 Albuterol Sulfate (Albuterol Sulfate) 2.5 Mg/3 Ml (0.083 %) Vial.neb, 3 ML NEB Q4H, (Reported) Entered as Reported by: CARLO RIVERA on 03/02/22 1518 Aspirin (Aspirin EC) 81 Mg Tablet.dr, 81 MG PO DAILY, (Reported) Entered as Reported by: CARLO RIVERA on 09/08/22 0958 Cefdinir (Cefdinir) 300 Mg Capsule, 300 MG PO BID Prescribed by: RUY PEREIRA on 09/08/22 1050 Clopidogrel Bisulfate (Clopidogrel) 75 Mg Tablet, 75 MG PO DAILY, (Reported) Entered as Reported by: CARLO RIVERA on 05/12/20 1036 Fluticasone/Umeclidin/Vilanter (Trelegy Ellipta 200-62.5-25) 200-62.5 Blst.w.dev, 1 PUFF INH DAILY, (Reported) Entered as Reported by: CARLO RIVERA on 09/08/22 0958 Furosemide (Furosemide) 80 Mg Tablet, 80 MG PO DAILY, (Reported) Entered as Reported by: CARLO RIVERA on 09/08/22 09 Gabapentin (Gabapentin) 600 Mg Tablet, 600 MG PO BID, (Reported) Entered as Reported by: JAYDEN SEBASTIAN on 07/08/21 1101 Insulin Detemir (Levemir Flextouch) 100 Unit/Ml (3 Ml) Insuln.pen, 30 UNITS SC HS, (Reported) Entered as Reported by: CARLO RIVERA on 03/02/22 151 Isosorbide Mononitrate (Isosorbide Mononitrate ER) 120 Mg Tab.er.24h, 120 MG PO DAILY, (Reported) Entered as Reported by: CARLO RIVERA on 03/02/22 151 Losartan Potassium (Losartan Potassium) 25 Mg Tablet, 50 MG PO DAILY, (Reported) Entered as Reported by: CARLO RIVERA on 09/08/22957 Metoprolol Succinate (Metoprolol Succinate) 25 Mg Tab.er.24h, 25 MG PO BID, (Reported) Entered as Reported by: JAYDEN SEBASTIAN on 07/08/21 1101 Nitroglycerin (Nitroglycerin) 0.4 Mg Tab.subl, 0.4 MG SL UD PRN for CHEST PAIN, (Reported) Entered as Reported by: JAYDEN SEBASTIAN on 07/08/21 1101 Omeprazole (Omeprazole) 20 Mg Capsule.dr, 20 MG PO BID, (Reported) Entered as Reported by: CARLO RIVERA on 09/08/22 09 Phenytoin Sodium Extended (Phenytoin Sodium Extended) 100 Mg Capsule, 200 MG PO BID, (Reported) Entered as Reported by: SONAM PLAZA on 10/14/15 0956 Prednisone (Prednisone) 20 Mg Tab, 40 MG PO Q24HR Prescribed by: RUY PEREIRA on 09/08/22 1050 Prednisone (Prednisone) 20 Mg Tab, 40 MG PO DAILY Prescribed by: Omari Hardy on 10/01/22 1450 Roflumilast (Daliresp) 500 Mcg Tablet, 500 MCG PO DAILY, (Reported) Entered as Reported by: CARLO RIVERA on 09/08/22 09 Rosuvastatin Calcium (Rosuvastatin Calcium) 20 Mg Tablet, 20 MG PO HS, (Reported) Entered as Reported by: JAYDEN SEBASTIAN on 07/08/21 1101 Review of Systems Review of Systems Constitutional: no symptoms reported EENTM: see HPI, throat pain Respiratory: no symptoms reported Cardiovascular: no symptoms reported Gastrointestinal: no symptoms reported Genitourinary: no symptoms reported Musculoskeletal: no symptoms reported Skin: no symptoms reported Psychiatric/Neurological: No Symptoms Reported Past Nzepvqo-Sfivmf-Sectft Hx Patient Social History Tobacco Use?: No Smoking Status: Former Smoker Substance use?: Yes Substance type: Marijuana Substance frequency: Rarely Alcohol Use?: No Immunizations Up To Date Tetanus Booster (TDap): Less than 5yrs PED Vaccines UTD: Yes First/Initial COVID19 Vaccinat: 01/22/2021 Second COVID19 Vaccination Jose: 2020 Third COVID19 Vaccination Date: 2020 Seasonal Allergies Seasonal Allergies: No Past Medical History Surgery/Hospitalization HX: CODP, DIABETIC TYPE I, SLEEP APNEA, CAD WITH 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 Surgeries: Yes (Loop recorder-removed, Brain surgery, Left foot, Stents to emmie legs, ) Cardiac, Neurological, Orthopedic Respiratory: Yes (COPD, SLEEP APNEA, BIPAP) Sleep Apnea, COPD Currently Using CPAP: No Currently Using BIPAP: Yes Cardiac: Yes (BILATERAL SUPERFICAL FEMORAL ARTERY STENTS;CAROTID & VERTEBRAL ARTERY DZ) Chronic Edema/Swelling, Coronary Artery Disease, High Cholesterol, Hypertension, Peripheral Vascular Neurological: Yes (CLAW HAMMER TO HEAD-- INJURY 1982) Seizure Disorder, Traumatic Brain Injury Reproductive Disorders: No Sexually Transmitted Disease: No HIV/AIDS: No Genitourinary: No Gastrointestinal: Yes (HEPATITIS A 06/27/20) Gastroesophageal Reflux, Hepatitis, Polyps Musculoskeletal: Yes (BILATERAL CARPAL TUNNEL RELEASE) Arthritis, Chronic Back Pain Endocrine: Yes (BORDERLINE DIABETES, NOT TAKING MEDS) HEENT: Yes Loss of Vision: Bilateral Hearing Impairment: Denies Cancer: No Psychosocial: Yes (RELATED TO BREATHING ISSUES-RACING HELMET/SWIMMING) Anxiety Integumentary: Yes (DRY PATCHES ON ELBOW AND HANDS, scaly rash on feet) Blood Disorders: No Adverse Reaction/Blood Tranf: No Family Medical History Cardiovascular disease Colon cancer FH: cancer 19 FATHER 19 MOTHER No Pertinent Family Hx PAST SURGICAL HISTORY: -LOOP RECORDER PLACED AND REMOVED -RIGHT SUPERFICIAL FEMORAL ARTERY STENT 03/2019 -LEFT SUPERFICIAL FEMORALY ARTERY STENT -BILATERAL CARPAL TUNNEL RELEASE -SURGERY DUE TO HEAD TRAUMA--"CLAW HAMMER" TO HEAD 1982 -LEFT TOE SURGERY -CARDIAC CATH 2017--MODERATE DISEASE, NO INTERVENTION ADDITIONAL PMH: -EXTENSIVE ASVD WITH CORONARY ARTERY DISEASE ( NO INTERVENTION), CAROTID ARTERY DISEASE, AND VERTEBRAL ARTERY DISEASE, WITH LEFT VERTEBRAL ARTERY WITH SEVERE STENOSIS, HAD HAS HAD BILATERAL LOWER EXTREMITY STENTS. Physical Exam Vital Signs Vital Signs - First Documented Capillary Refill : Height, Weight, BMI Height: 6'0" Weight: 258lbs. 0.0oz. [id number]; 38.00 BMI Method:Stated General Appearance: No Apparent Distress, WD/WN HEENT: PERRL/EOMI, TMs Normal, Normal ENT Inspection, Pharynx Normal Neck: Non Tender, Supple Respiratory: Chest Non Tender, Lungs Clear, Normal Breath Sounds, No Accessory Muscle Use, No Respiratory Distress Cardiovascular: Regular Rate, Rhythm Gastrointestinal: Non Tender, Soft Neurologic/Psychiatric: Alert, Oriented x3, No Motor/Sensory Deficits, Normal Mood/Affect Skin: Normal Color, Warm/Dry Progress/Results/Core Measures Suspected Sepsis SIRS Temperature: Pulse: 81 Respiratory Rate: Blood Pressure 156 /69 Mean: 98 Results/Orders Lab Results Laboratory Tests Test 10/01/22 14:01 Range/Units Group A Streptococcus Screen NEGATIVE NEGATIVE My Orders Orders - OMARI HARDY SAL[employer] ARCHITECT Covid 19 Inhouse Test (10/01/22 13:50) Influenza A And B By Pcr (10/01/22 13:50) Isolation Central Supply Req (10/01/22 13:50) Chest 1 View, Ap/Pa Only (10/01/22 13:50) Rapid Strep A Screen (10/01/22 13:52) Albuterol/Ipra Inhalation Soln (Duoneb I (10/01/22 14:30) Svn Small Volume Nebulizer (10/01/22 14:28) Prednisone Tablet (Deltasone Tablet) (10/01/22 14:30) Medications Given in ED Current Medications Medications Dose Ordered Sig/Angella Route Start Time Stop Time Status Last Admin Dose Admin Albuterol/ Ipratropium 3 ml ONCE ONCE INH 10/01/22 14:30 10/01/22 14:31 DC 10/01/22 14:47 3 ML Prednisone 40 mg ONCE ONCE PO 10/01/22 14:30 10/01/22 14:31 DC 10/01/22 14:39 40 MG Vital Signs/I&O 10/01/22 10/01/22 10/01/22 10/01/22 13:30 13:30 13:30 14:47 Temp 37.5 Pulse 81 B/P (MAP) 156/69 (98) Pulse Ox 98 97 95 O2 Delivery Nasal Cannula Nasal Cannula Nasal Cannula Nasal Cannula O2 Flow Rate 4.00 4.00 4.00 4.00 10/01/22 14:57 Pulse 88 B/P (MAP) 145/67 Pulse Ox 95 O2 Delivery Room Air Capillary Refill : Blood Pressure Mean: 98 Progress Note : Progress Note Patient is nontoxic and well-hydrated on exam. Rapid strep is negative. Rapid flu and COVID-negative. Chest x-ray reveals no acute abnormality. Patient did have some expiratory wheezing and was given a DuoNeb. Patient will be discharged home with a short course of prednisone. Vital signs have remained stable. Follow-up with PCP. Return precautions for urgent symptomology discussed. Patient verbalized understanding. Departure Impression Primary Impression: Acute viral syndrome Disposition: 01 HOME, SELF-CARE Condition: Stable Departure-Patient Inst. Decision time for Depature: 14:45 Referrals: [facility] (PCP) Primary Care Physician JENNA MATHEWS (Family) Primary Care Physician Patient Instructions: COPD Exacerbation, Adult ED, Viral Syndrome (DC) Scripts Prednisone (Prednisone) 20 Mg Tab 40 MG PO DAILY for 4 Days, #8 TAB 0 Refills Prov: OMARI HARDY APRN 10/01/22 OMARI HARDY APRN Oct 01, 2022 14:50
[2022-10-01 14:57] VITALS: BP 145/67
== END 2022-10-01 15:14 | disposition home or self-care (01) ==
LOC: EDUNIT# 13:24 → ER 13:26
DX: B34.9 Viral infection, unspecified (principal); J44.9 Chronic obstructive pulmonary disease, unspecified; J02.9 Acute pharyngitis, unspecified; Z87.891 Personal history of nicotine dependence; Z99.81 Dependence on supplemental oxygen
CPT/HCPCS: 71045; 87430; 94640

== ENCOUNTER 2022-10-05 12:48 | Emergency (ER) | payer MEDICARE, MEDICAID ==
[~2022-10-05] VITALS: Ht 182.8 cm; Wt 111.0 kg
--- NOTE | 2022-10-05 13:06 | ED Respiratory ---
General Chief Complaint: Respiratory Problems Stated Complaint: SOB Source: patient Exam Limitations: no limitations History of Present Illness Date Seen by Provider: Oct 05, 2022 Time Seen by Provider: 13:00 Initial Comments Patient is a 61-year-old male with history of end-stage COPD on chronic oxygen therapy at home 5 to 6 L per nasal cannula presents to the emergency room with worsening shortness of breath over the last 24 hours. Patient states that he has had increased sputum production it is green. No fevers or chills. No chest pain. No abdominal pain, nausea or vomiting. No problems with bowel or bladder. He states he does not smoke anymore. He has used a couple of breathing treatments today. He states he is currently on steroids and he thinks he is also on antibiotics. He denies any increased swelling in his lower extrem ities. He does have a history of CHF. Reportedly found on his home oxygen with sats in the upper 60s by EMS. All other review of systems reviewed and negative except as stated Timing/Duration: this morning Severity: severe Prior Episodes/Possible Cause: frequent episodes Modifying Factors: Improves With Albuterol Inhaler, Improves With Albuterol Nebulizer Associated Symptoms: cough; No fever/chills, No nasal congestion; shortness of breath; No sinus infection; wheezing Allergies and Home Medications Allergies Coded Allergies: diclofenac (Verified Allergy, Intermediate, SWELLING, 06/15/17) Patient Home Medication List Home Medication List Reviewed: Yes Albuterol Sulfate (Ventolin Hfa) 18 Gm Hfa.aer.ad, 1 PUFF INH Q4H PRN for SHORTNESS OF BREATH, (Reported) Entered as Reported by: WALE PERRY on 03/13/20 1828 Albuterol Sulfate (Albuterol Sulfate) 2.5 Mg/3 Ml (0.083 %) Vial.neb, 3 ML NEB Q4H, (Reported) Entered as Reported by: CARLO RIVERA on 03/02/22 1518 Aspirin (Aspirin EC) 81 Mg Tablet.dr, 81 MG PO DAILY, (Reported) Entered as Reported by: CARLO RIVERA on 09/08/22 0958 Cefdinir (Cefdinir) 300 Mg Capsule, 300 MG PO BID Prescribed by: RUY PEREIRA on 09/08/22 1050 Clopidogrel Bisulfate (Clopidogrel) 75 Mg Tablet, 75 MG PO DAILY, (Reported) Entered as Reported by: CARLO RIVERA on 05/12/20 1036 Fluticasone/Umeclidin/Vilanter (Trelegy Ellipta 200-62.5-25) 200-62.5 Blst .w.dev, 1 PUFF INH DAILY, (Reported) Entered as Reported by: CARLO RIVERA on 09/08/22 0958 Furosemide (Furosemide) 80 Mg Tablet, 80 MG PO DAILY, (Reported) Entered as Reported by: CARLO RIVERA on 09/08/22 0958 Gabapentin (Gabapentin) 600 Mg Tablet, 600 MG PO BID, (Reported) Entered as Reported by: JAYDEN SEBASTIAN on 07/08/21 1101 Insulin Detemir (Levemir Flextouch) 100 Unit/Ml (3 Ml) Insuln.pen, 30 UNITS SC HS, (Reported) Entered as Reported by: CARLO RIVERA on 03/02/22 1518 Isosorbide Mononitrate (Isosorbide Mononitrate ER) 120 Mg Tab.er.24h, 120 MG PO DAILY, (Reported) Entered as Reported by: CARLO RIVERA on 03/02/22 151 Losartan Potassium (Losartan Potassium) 25 Mg Tablet, 50 MG PO DAILY, (Reported) Entered as Reported by: CARLO RIVERA on 09/08/22 09 Metoprolol Succinate (Metoprolol Succinate) 25 Mg Tab.er.24h, 25 MG PO BID, (Reported) Entered as Reported by: JAYDEN SEBASTIAN on 07/08/21 1101 Nitroglycerin (Nitroglycerin) 0.4 Mg Tab.subl, 0.4 MG SL UD PRN for CHEST PAIN, (Reported) Entered as Reported by: JAYDEN SEBASTIAN on 07/08/21 1101 Omeprazole (Omeprazole) 20 Mg Capsule.dr, 20 MG PO BID, (Reported) Entered as Reported by: CARLO RIVERA on 09/08/22 09 Phenytoin Sodium Extended (Phenytoin Sodium Extended) 100 Mg Capsule, 200 MG PO BID, (Reported) Entered as Reported by: SONAM PLAZA on 10/14/15 0956 Prednisone (Prednisone) 20 Mg Tab, 40 MG PO Q24HR Prescribed by: RUY PEREIRA on 09/08/22 1050 Prednisone (Prednisone) 20 Mg Tab, 40 MG PO DAILY Prescribed by: Omari Hardy on 10/01/22 1450 Roflumilast (Daliresp) 500 Mcg Tablet, 500 MCG PO DAILY, (Reported) Entered as Reported by: CARLO RIVERA on 09/08/22 0958 Rosuvastatin Calcium (Rosuvastatin Calcium) 20 Mg Tablet, 20 MG PO HS, (Reported) Entered as Reported by: JAYDEN SEBASTIAN on 07/08/21 1101 Review of Systems Review of Systems Constitutional: see HPI EENTM: no symptoms reported Respiratory: cough, orthopnea, phlegm, short of breath, wheezing Cardiovascular: no symptoms reported; No chest pain Gastrointestinal: no symptoms reported; No nausea Genitourinary: no symptoms reported Musculoskeletal: other (mild swelling legs (on lasix)) Skin: no symptoms reported Psychiatric/Neurological: No Symptoms Reported All Other Systems Reviewed Negative Unless Noted: Yes Past Nysipbz-Trpkiw-Qecgrz Hx Patient Social History Tobacco Use?: No Tobacco type used: Cigarettes Smoking Status: Former Smoker Substance use?: No Alcohol Use?: No Pt feels they are or have been: No Immunizations Up To Date Tetanus Booster (TDap): Less than 5yrs PED Vaccines UTD: Yes Influenza Vaccine Up-to-Date: Yes; Up-to-Date First/Initial COVID19 Vaccinat: 2020 Second COVID19 Vaccination Jose: 2020 Third COVID19 Vaccination Date: 2020 Seasonal Allergies Seasonal Allergies: No Past Medical History Surgery/Hospitalization HX: CHF, COPD, HTN, NIDDM, SLEEP APNEA,RI Surgeries: Yes (Loop recorder-removed, Brain surgery, Left foot, Stents to emmie legs, ) Cardiac, Neurological, Orthopedic Respiratory: Yes (COPD, SLEEP APNEA, BIPAP) Sleep Apnea, COPD Currently Using CPAP: No Currently Using BIPAP: Yes Cardiac: Yes (BILATERAL SUPERFICAL FEMORAL ARTERY STENTS;CAROTID & VERTEBRAL ARTERY DZ) Chronic Edema/Swelling, Coronary Artery Disease, High Cholesterol, Hypertension, Peripheral Vascular Neurological: Yes (CLAW HAMMER TO HEAD-- INJURY 1982) Seizure Disorder, Traumatic Brain Injury Reproductive Disorders: No Sexually Transmitted Disease: No HIV/AIDS: No Genitourinary: No Gastrointestinal: Yes (HEPATITIS A 06/27/20) Gastroesophageal Reflux, Hepatitis, Polyps Musculoskeletal: Yes (BILATERAL CARPAL TUNNEL RELEASE) Arthritis, Chronic Back Pain Endocrine: Yes (BORDERLINE DIABETES, NOT TAKING MEDS) HEENT: Yes Loss of Vision: Bilateral Hearing Impairment: Denies Cancer: No Psychosocial: Yes (RELATED TO BREATHING ISSUES-RACING HELMET/SWIMMING) Anxiety Integumentary: Yes (DRY PATCHES ON ELBOW AND HANDS, scaly rash on feet) Blood Disorders: No Adverse Reaction/Blood Tranf: No Family Medical History Cardiovascular disease Colon cancer FH: cancer 19 FATHER 19 MOTHER No Pertinent Family Hx PAST SURGICAL HISTORY: -LOOP RECORDER PLACED AND REMOVED -RIGHT SUPERFICIAL FEMORAL ARTERY STENT 03/2019 -LEFT SUPERFICIAL FEMORALY ARTERY STENT -BILATERAL CARPAL TUNNEL RELEASE -SURGERY DUE TO HEAD TRAUMA--"CLAW HAMMER" TO HEAD 1982 -LEFT TOE SURGERY -CARDIAC CATH 2017--MODERATE DISEASE, NO INTERVENTION ADDITIONAL PMH: -EXTENSIVE ASVD WITH CORONARY ARTERY DISEASE ( NO INTERVENTION), CAROTID ARTERY DISEASE, AND VERTEBRAL ARTERY DISEASE, WITH LEFT VERTEBRAL ARTERY WITH SEVERE STENOSIS, HAD HAS HAD BILATERAL LOWER EXTREMITY STENTS. Physical Exam Vital Signs - First Documented 10/05/22 12:50 Temp 36.7 Pulse 109 Resp 19 B/P (MAP) 147/75 (99) Pulse Ox 93 O2 Delivery Nasal Cannula O2 Flow Rate 6.00 Capillary Refill : Height: 6'0" Weight: 258lbs. 0.0oz. [id number]; 38.00 BMI Method:Stated General Appearance: WD/WN, no apparent distress Eyes: Bilateral Eye Normal Inspection, Bilateral Eye PERRL, Bilateral Eye EOMI HEENT: PERRL/EOMI Neck: normal inspection Respiratory: no accessory muscle use, wheezing (diffuse expiratory wheeze with prolonged expiratory phase; coarse wet cough with thick green sputum production) Cardiovascular: regular rate, rhythm, tachycardia (99) Gastrointestinal: normal bowel sounds, soft Extremities: normal range of motion, normal inspection, pedal edema (trace) Neurologic/Psychiatric: alert, normal mood/affect, oriented x 3 Skin: normal color, warm/dry Progress/Results/Core Measures Suspected Sepsis SIRS Temperature: Pulse: Respiratory Rate: Laboratory Tests 10/05/22 12:54: White Blood Count 9.0 Blood Pressure / Mean: Laboratory Tests 10/05/22 12:54: Creatinine 0.87, Platelet Count 149 Results/Orders Lab Results Laboratory Tests Test 10/05/22 12:54 Range/Units White Blood Count 9.0 4.3-11.0 10^3/uL Red Blood Count 5.12 4.30-5.52 10^6/uL Hemoglobin 14.3 13.3-17.7 g/dL Hematocrit 48 40-54 % Mean Corpuscular Volume 93 80-99 fL Mean Corpuscular Hemoglobin 28 25-34 pg Mean Corpuscular Hemoglobin Concent 30 L 32-36 g/dL Red Cell Distribution Width 15.8 H 10.0-14.5 % Platelet Count 149 130-400 10^3/uL Mean Platelet Volume 8.6 L 9.0-12.2 fL Immature Granulocyte % (Auto) 0 % Neutrophils (%) (Auto) 87 H 42-75 % Lymphocytes (%) (Auto) 7 L 12-44 % Monocytes (%) (Auto) 6 0-12 % Eosinophils (%) (Auto) 0 0-10 % Basophils (%) (Auto) 0 0-10 % Neutrophils # (Auto) 7.8 1.8-7.8 10^3/uL Lymphocytes # (Auto) 0.6 L 1.0-4.0 10^3/uL Monocytes # (Auto) 0.5 0.0-1.0 10^3/uL Eosinophils # (Auto) 0.0 0.0-0.3 10^3/uL Basophils # (Auto) 0.0 0.0-0.1 10^3/uL Immature Granulocyte # (Auto) 0.0 0.0-0.1 10^3/uL Neutrophils % (Manual) 89 % Lymphocytes % (Manual) 7 % Monocytes % (Manual) 2 % Eosinophils % (Manual) 1 % Basophils % (Manual) 1 % Band Neutrophils 0 % Blood Morphology Comment NORMAL Sodium Level 138 135-145 MMOL/L Potassium Level 4.2 3.6-5.0 MMOL/L Chloride Level 88 L 98-107 MMOL/L Carbon Dioxide Level 43 H 21-32 MMOL/L Anion Gap 7 5-14 MMOL/L Blood Urea Nitrogen 21 H 7-18 MG/DL Creatinine 0.87 0.60-1.30 MG/DL Estimat Glomerular Filtration Rate 99 BUN/Creatinine Ratio 24 Glucose Level 231 H 70-105 MG/DL Calcium Level 9.6 8.5-10.1 MG/DL Procalcitonin 0.10 H <0.10 NG/ML My Orders Orders - LIMA CRUZ MD Ed Iv/Invasive Line Start (10/05/22 13:08) Cbc With Automated Diff (10/05/22 13:08) Basic Metabolic Panel (10/05/22 13:08) Procalcitonin (Pct) (10/05/22 13:08) Chest 1 View, Ap/Pa Only (10/05/22 13:08) Communication For Respiratory (10/05/22 13:10) Albuterol Pre-Mix Nebs (Rt) (Proventil (10/05/22 13:15) Albuterol/Ipra Inhalation Soln (Duoneb I (10/05/22 13:15) Svn Small Volume Nebulizer (10/05/22 13:10) Svn Small Volume Nebulizer (10/05/22 13:10) Manual Differential (10/05/22 12:54) Medications Given in ED Current Medications Medications Dose Ordered Sig/Angella Route Start Time Stop Time Status Last Admin Dose Admin Albuterol Sulfate 10 mg ONCE ONCE INH 10/05/22 13:15 10/05/22 13:16 DC 10/05/22 13:30 10 MG Albuterol/ Ipratropium 3 ml ONCE ONCE INH 10/05/22 13:15 10/05/22 13:16 DC 10/05/22 13:30 3 ML Vital Signs/I&O 10/05/22 10/05/22 10/05/22 12:50 12:50 13:31 Temp 36.7 Pulse 109 Resp 19 B/P (MAP) 147/75 (99) Pulse Ox 93 96 O2 Delivery Nasal Cannula Simple Mask Nasal Cannula O2 Flow Rate 6.00 6.00 Capillary Refill : Progress Note : Time: 14:34 Progress Note Patient reassessed after breathing treatment, laboratory evaluation and chest x- ray. He sitting up on the side of the bed quite somnolent. His oxygen saturation is 94% on 5 L. No increased work of breathing, no conversational dyspnea. His lungs are much improved. No audible wheezing. His son is at the bedside and states that he had flulike symptoms last week. His doctor did call him in an antibiotic last week. He has been on Augmentin, Cefdinir and Azithromycin in the last 30 days. Monday, 2 days ago was a good day as far as his breathing and yesterday the son noticed that he started to have increasing difficulty with his shortness of breath. Results of patient's labs and x-ray are communicated with the patient and his son. He has no findings suggestive of sepsis, pneumonia that has failed outpatient therapy. Little concern for CHF exacerbation (BNP considered however HPI and PE do not support the need). No indication for advanced imaging such as CTA chest - no findings/complaints concerning for PE. Presentation not concerning for ACS. He is improved. Would recommend continued daily medications, would not add any medications at this time. No prednisone as he just finished a 4 day course. Patient might consider the use of Mucinex to help thin his secretions for improved cough. He is comfortable with going home. His son is going to get his oxygen tanks from home. All questions are sought and answered. Patient is improved at discharge Diagnostic Imaging Diagonstic Imaging: Xray Comments [facility] [place], [place] NAME: LELE GAMBLE [facility] REC#: [id number] PT STATUS: REG ER : 1960 PHYSICIAN: LIMA CRUZ MD ADMIT DATE: 10/05/22/ER Draft Date of Exam:10/05/22 CHEST 1 VIEW, AP/PA ONLY HISTORY: Shortness of breath. COMPARISON: 10/01/2022. TECHNIQUE: Frontal view of the chest. FINDINGS: There are interstitial opacities in the left midlung and in the lung bases bilaterally with mild airspace opacities in the lung bases. There is no pleural effusion or pneumothorax. The cardiac silhouette is stable in size. IMPRESSION: 1. Bilateral pulmonary opacities, may be due to edema or infection. Dictated on workstation # [id number] Dict: 10/05/22 1334 Trans: 10/05/22 1339 [id number] Interpreted by: NADIR DOE MD Electronically signed by: Departure Impression Primary Impression: Acute exacerbation of chronic obstructive pulmonary disease (COPD) Disposition: 01 HOME, SELF-CARE Condition: Improved Departure-Patient Inst. Decision time for Depature: 14:41 Referrals: [facility] (PCP/Family) Primary Care Physician Patient Instructions: COPD Exacerbation, Adult ED Add. Discharge Instructions: Drink fluids to stay well-hydrated. You might consider [id number] Mucinex to help thin your secretions, this would help your cough. Monitor your blood sugars daily. Use your breathing treatments every 4-6 hours as needed for wheezing/shortness of breath. If you develop chest pain, worsening shortness of breath, fever or any other emergent, concerning symptoms please return to the emergency room for reevaluation. Follow-up with your primary care provider as scheduled. Copy Copies To 1: BRANDEN BORJA KATHRYN M MD Oct 05, 2022 13:06
[2022-10-05] MEDS ORDERED: RT-ALBUTEROL/IPRATROPIUM 3 ML (DUONEB) VIAL INH ONE (13:15)
[2022-10-05] MEDS ORDERED: RT-ALBUTEROL SULF 2.5 MG/3 ML PRE-MIX VIAL INH ONE (13:15)
[2022-10-05 13:16] LABS: BASOPHILS % (AUTO) 0 % (0-10); EOSINOPHILS % (AUTO) 0 % (0-10); HEMATOCRIT 48 % (40-54); HEMOGLOBIN 14.3 g/dL (13.3-17.7); LYMPHOCYTES # (AUTO) 0.6 10^3/uL (1.0-4.0); LYMPHOCYTES % (AUTO) 7 % (12-44); MEAN CORPUSCULAR HEMOGLOBIN 28 pg (25-34); MEAN CORPUSCULAR HGB CONC 30 g/dL (32-36); MEAN CORPUSCULAR VOLUME 93 fL (80-99); MEAN PLATELET VOLUME 8.6 fL (9.0-12.2); MONOCYTES # (AUTO) 0.5 10^3/uL (0.0-1.0); MONOCYTES % (AUTO) 6 % (0-12); NEUTROPHILS # (AUTO) 7.8 10^3/uL (1.8-7.8); NEUTROPHILS % (AUTO) 87 % (42-75); PLATELET COUNT 149 10^3/uL (130-400)
[2022-10-05 13:22] LABS: POTASSIUM 4.2 MMOL/L (3.6-5.0)
[2022-10-05 13:23] LABS: CALCIUM 9.6 MG/DL (8.5-10.1)
[2022-10-05 13:28] LABS: CREATININE SERUM 0.87 MG/DL (0.60-1.30)
[2022-10-05 13:31] LABS: BAND NEUTROPHILS 0 %; BASOPHILS % (MANUAL) 1 %; EOSINOPHILS % (MANUAL) 1 %; LYMPHOCYTES % (MANUAL) 7 %; MONOCYTES % (MANUAL) 2 %; NEUTROPHILS % (MANUAL) 89 %
[2022-10-05 13:32] LABS: RBC MORPH NORMAL
--- NOTE | 2022-10-05 13:39 | Diagnostic Imaging Report ---
HISTORY: Shortness of breath. COMPARISON: 10/01/2022. TECHNIQUE: Frontal view of the chest. FINDINGS: There are interstitial opacities in the left midlung and in the lung bases bilaterally with mild airspace opacities in the lung bases. There is no pleural effusion or pneumothorax. The cardiac silhouette is stable in size. IMPRESSION: 1. Bilateral pulmonary opacities, may be due to edema or infection. Dictated by: Dictated on workstation # [id number]
[2022-10-05 15:55] VITALS: BP 171/78
== END 2022-10-05 16:10 | disposition home or self-care (01) ==
LOC: EDUNIT# 12:48 → ER 12:50
DX: J44.1 Chronic obstructive pulmonary disease with (acute) exacerbation (principal); G47.30 Sleep apnea, unspecified; I50.9 Heart failure, unspecified; Z87.891 Personal history of nicotine dependence; Z99.81 Dependence on supplemental oxygen; Z99.89 Dependence on other enabling machines and devices
CPT/HCPCS: 36415; 71045; 80048; 84145; 85007; 85027; 94640

== ENCOUNTER 2022-10-06 09:12 | Inpatient (IN) | payer MEDICARE, MEDICAID ==
[2022-10-06] VITALS (12 sets, daily range): BP systolic 127–177; BP diastolic 51–88
[~2022-10-06] VITALS: Ht 177.8 cm; Wt 118.3 kg
[2022-10-06] MEDS ORDERED: RT-ALBUTEROL HFA 8.5 GM INHALER IH STA (09:29)
[2022-10-06] MEDS ORDERED: methylPREDNISolone 125 MG (Solu-MEDROL) VIAL IVP ONE (09:30)
[2022-10-06] MEDS ORDERED: ONDANSETRON 4 MG/2 ML (SDV) Z0FRAN IVP ONE (09:30)
[2022-10-06 09:39] LABS: BASOPHILS # (AUTO) 0.1 10^3/uL (0.0-0.1); BASOPHILS % (AUTO) 1 % (0-10); EOSINOPHILS % (AUTO) 0 % (0-10); HEMATOCRIT 48 % (40-54); HEMOGLOBIN 14.9 g/dL (13.3-17.7); LYMPHOCYTES # (AUTO) 0.7 10^3/uL (1.0-4.0); LYMPHOCYTES % (AUTO) 6 % (12-44); MEAN CORPUSCULAR HEMOGLOBIN 29 pg (25-34); MEAN CORPUSCULAR HGB CONC 31 g/dL (32-36); MEAN CORPUSCULAR VOLUME 93 fL (80-99); MEAN PLATELET VOLUME 8.9 fL (9.0-12.2); MONOCYTES # (AUTO) 0.6 10^3/uL (0.0-1.0); MONOCYTES % (AUTO) 6 % (0-12); NEUTROPHILS # (AUTO) 9.3 10^3/uL (1.8-7.8); NEUTROPHILS % (AUTO) 87 % (42-75); PLATELET COUNT 174 10^3/uL (130-400); WHITE BLOOD COUNT 10.7 10^3/uL (4.3-11.0)
[2022-10-06 09:50] LABS: BAND NEUTROPHILS 1 %; LYMPHOCYTES % (MANUAL) 6 %; MONOCYTES % (MANUAL) 3 %; NEUTROPHILS % (MANUAL) 90 %; RBC MORPH NORMAL
[2022-10-06 09:51] LABS: ALBUMIN 3.4 GM/DL (3.2-4.5); POTASSIUM 4.7 MMOL/L (3.6-5.0)
[2022-10-06 09:53] LABS: CALCIUM 10.1 MG/DL (8.5-10.1); INR 1.1 (0.8-1.4); PROTHROMBIN TIME PATIENT 14.7 SEC (12.2-14.7)
[2022-10-06 09:54] LABS: TOTAL PROTEIN 7.9 GM/DL (6.4-8.2)
[2022-10-06 09:56] LABS: BILIRUBIN,TOTAL 1.2 MG/DL (0.1-1.0)
[2022-10-06 09:57] LABS: ABG BASE EXCESS 20.1 MMOL/L (-2.5-2.5); ABG OXYGEN SATURATION 95 % (94-100); ABG PO2 80 MMHG (79-93)
[2022-10-06 09:58] LABS: CREATININE SERUM 0.98 MG/DL (0.60-1.30)
[2022-10-06 09:59] LABS: ABG PCO2 98 MMHG (35-45); ABG PH 7.31 (7.37-7.43); ABG TCO2 50.1 MMOL/L (21.0-31.0); ALLENS TEST POSITIVE; INSPIRED O2 10 L; PATIENT TEMP 37.9; VENTILATOR NO
[2022-10-06 10:01] LABS: MAGNESIUM 1.9 MG/DL (1.6-2.4)
--- NOTE | 2022-10-06 10:11 | Diagnostic Imaging Report ---
CLINICAL INDICATION: Patient with shortness of air, hypoxia. EXAM: Portable chest x-ray upright view. COMPARISON: Chest x-ray dated 10/05/2022. FINDINGS: There is interval slight progression of diffuse patchy infiltrates involving both lungs. There is no pleural effusion or pneumothorax. Pulmonary vasculature and cardiac silhouette within normal limits. There are degenerative spurs involving the spine. IMPRESSION: There is interval slight progression of diffuse bilateral lung infiltrates. Dictated by: Dictated on workstation # [id number]
--- NOTE | 2022-10-06 10:14 | ED General ---
General Chief Complaint: Respiratory Problems Stated Complaint: WEAKNESS | VOMITING Nursing Triage Note: PT TO RM 8 PER W/C PT CO OF INCREASED WEAKNESS, SOA, DIARRHEA. PT WAS HERE YESTERDAY Source of Information: Patient Exam Limitations: No Limitations History of Present Illness Date Seen by Provider: Oct 06, 2022 Time Seen by Provider: 09:15 Initial Comments This is 61-year-old gentleman presents to the emergency room from home where he is on the [facility]. Report was called in by Ru Armstrong. Patient has had altered mental status worsening over the past couple of days. He also has been incontinent of stool and urine. reports she was very confused in the night last night. He was seen in the emergency room yesterday and had a brief evaluation and discharged home. He is very tight and wheezy on arrival. He is afebrile. He has been on antibiotics multiple times in the last couple months for suspected pneumonia. His oral intake was very poor and his urine has been dark. Allergies and Home Medications Allergies Coded Allergies: diclofenac (Verified Allergy, Intermediate, SWELLING, 06/15/17) Patient Home Medication List Home Medication List Reviewed: Yes Albuterol Sulfate (Ventolin Hfa) 18 Gm Hfa.aer.ad, 1 PUFF INH Q4H PRN for SHORTNESS OF BREATH, (Reported) Entered as Reported by: WALE PERRY on 03/13/20 182 Last Action: Reviewed Albuterol Sulfate (Albuterol Sulfate) 2.5 Mg/3 Ml (0.083 %) Vial.neb, 3 ML NEB Q4H, (Reported) Entered as Reported by: CARLO RIVERA on 03/02/22 1518 Last Action: Reviewed Aspirin (Aspirin EC) 81 Mg Tablet.dr, 81 MG PO DAILY, (Reported) Entered as Reported by: CARLO RIVERA on 09/08/22 0958 Last Action: Continued Clopidogrel Bisulfate (Clopidogrel) 75 Mg Tablet, 75 MG PO DAILY, (Reported) Entered as Reported by: CARLO RIVERA on 05/12/20 1036 Last Action: Continued Fluticasone/Umeclidin/Vilanter (Trelegy Ellipta 200-62.5-25) 200-62.5 Blst.w.dev, 1 PUFF INH DAILY, (Reported) Entered as Reported by: CARLO RIVERA on 09/08/22957 Last Action: Converted Furosemide (Furosemide) 80 Mg Tablet, 80 MG PO DAILY, (Reported) Entered as Reported by: CARLO RIVERA on 09/08/22957 Last Action: Converted Gabapentin (Gabapentin) 600 Mg Tablet, 600 MG PO BID, (Reported) Entered as Reported by: JAYDEN SEBASTIAN on 07/08/211100 Last Action: Continued Insulin Detemir (Levemir Flextouch) 100 Unit/Ml (3 Ml) Insuln.pen, 30 UNITS SC HS, (Reported) Entered as Reported by: CARLO RIVERA on 03/02/221517 Last Action: Held Isosorbide Mononitrate (Isosorbide Mononitrate ER) 120 Mg Tab.er.24h, 120 MG PO DAILY, (Reported) Entered as Reported by: CARLO RIVERA on 03/02/221517 Last Action: Converted Losartan Potassium (Losartan Potassium) 25 Mg Tablet, 50 MG PO DAILY, (Reported) Entered as Reported by: CARLO RIVERA on 09/08/22957 Last Action: Continued Metoprolol Succinate (Metoprolol Succinate) 25 Mg Tab.er.24h, 25 MG PO BID, (Reported) Entered as Reported by: JAYDEN SEBASTIAN on 07/08/211100 Last Action: Continued Nitroglycerin (Nitroglycerin) 0.4 Mg Tab.subl, 0.4 MG SL UD PRN for CHEST PAIN, (Reported) Entered as Reported by: JAYDEN SEBASTIAN on 07/08/211100 Last Action: Continued Omeprazole (Omeprazole) 20 Mg Capsule.dr, 20 MG PO BID, (Reported) Entered as Reported by: CARLO RIVERA on 09/08/22957 Last Action: Continued Phenytoin Sodium Extended (Phenytoin Sodium Extended) 100 Mg Capsule, 200 MG PO BID, (Reported) Entered as Reported by: SONAM PLAZA on 10/14/15 09 Last Action: Continued Prednisone (Prednisone) 20 Mg Tab, 40 MG PO DAILY Prescribed by: Omari Hardy on 10/01/22 1450 Last Action: Held Roflumilast (Daliresp) 500 Mcg Tablet, 500 MCG PO DAILY, (Reported) Entered as Reported by: CARLO RIVERA on 11/10/22 0958 Last Action: Continued Rosuvastatin Calcium (Rosuvastatin Calcium) 20 Mg Tablet, 20 MG PO HS, (Reported) Entered as Reported by: JAYDEN SEBASTIAN on 07/08/21 1101 Last Action: Continued Discontinued Medications Cefdinir (Cefdinir) 300 Mg Capsule, 300 MG PO BID Discontinued Reason: No Longer Taking Prescribed by: RUY PEREIRA on 09/08/22 1050 Last Action: Discontinued Prednisone (Prednisone) 20 Mg Tab, 40 MG PO Q24HR Discontinued Reason: No Longer Taking Prescribed by: RUY PEREIRA on 09/08/22 105 Last Action: Discontinued Review of Systems Review of Systems Constitutional: malaise, weakness EENTM: no symptoms reported Respiratory: see HPI Cardiovascular: no symptoms reported Gastrointestinal: see HPI Genitourinary: see HPI Musculoskeletal: no symptoms reported Skin: no symptoms reported Psychiatric/Neurological: See HPI Hematologic/Lymphatic: No Symptoms Reported Immunological/Allergic: no symptoms reported Past Uonnbno-Eqttej-Mmtopc Hx Patient Social History Tobacco Use?: No Smoking Status: Former Smoker Substance use?: No Alcohol Use?: No Pt feels they are or have been: No Immunizations Up To Date Tetanus Booster (TDap): Less than 5yrs PED Vaccines UTD: Yes First/Initial COVID19 Vaccinat: 2020 Second COVID19 Vaccination Jose: 2020 Third COVID19 Vaccination Date: 2020 Seasonal Allergies Seasonal Allergies: No Past Medical History Surgery/Hospitalization HX: CHF, COPD, HTN, NIDDM, SLEEP APNEA,MO Surgeries: Yes (Loop recorder-removed, Brain surgery, Left foot, Stents to emmie legs, ) Cardiac, Neurological, Orthopedic Respiratory: Yes (COPD, SLEEP APNEA, BIPAP) Sleep Apnea, COPD Currently Using CPAP: No Currently Using BIPAP: Yes Cardiac: Yes (BILATERAL SUPERFICAL FEMORAL ARTERY STENTS;CAROTID & VERTEBRAL ARTERY DZ) Chronic Edema/Swelling, Coronary Artery Disease, High Cholesterol, Hypertension, Peripheral Vascular Neurological: Yes (CLAW HAMMER TO HEAD-- INJURY 1982) Seizure Disorder, Traumatic Brain Injury Reproductive Disorders: No Sexually Transmitted Disease: No HIV/AIDS: No Genitourinary: No Gastrointestinal: Yes (HEPATITIS A 06/27/20) Gastroesophageal Reflux, Hepatitis, Polyps Musculoskeletal: Yes (BILATERAL CARPAL TUNNEL RELEASE) Arthritis, Chronic Back Pain Endocrine: Yes (BORDERLINE DIABETES, NOT TAKING MEDS) HEENT: Yes Loss of Vision: Bilateral Hearing Impairment: Denies Cancer: No Psychosocial: Yes (RELATED TO BREATHING ISSUES-RACING HELMET/SWIMMING) Anxiety Integumentary: Yes (DRY PATCHES ON ELBOW AND HANDS, scaly rash on feet) Blood Disorders: No Adverse Reaction/Blood Tranf: No Family Medical History Cardiovascular disease Colon cancer FH: cancer 19 FATHER 19 MOTHER No Pertinent Family Hx PAST SURGICAL HISTORY: -LOOP RECORDER PLACED AND REMOVED -RIGHT SUPERFICIAL FEMORAL ARTERY STENT 03/2019 -LEFT SUPERFICIAL FEMORALY ARTERY STENT -BILATERAL CARPAL TUNNEL RELEASE -SURGERY DUE TO HEAD TRAUMA--"CLAW HAMMER" TO HEAD 1982 -LEFT TOE SURGERY -CARDIAC CATH 2017--MODERATE DISEASE, NO INTERVENTION ADDITIONAL PMH: -EXTENSIVE ASVD WITH CORONARY ARTERY DISEASE ( NO INTERVENTION), CAROTID ARTERY DISEASE, AND VERTEBRAL ARTERY DISEASE, WITH LEFT VERTEBRAL ARTERY WITH SEVERE STENOSIS, HAD HAS HAD BILATERAL LOWER EXTREMITY STENTS. Physical Exam-Suspected Sepsis Physical Exam Vital Signs Vital Signs - First Documented 10/06/22 15:23 FiO2 75 Capillary Refill : Less Than 3 Seconds Blood Pressure Mean: 117 Height, Weight, BMI Height: 6'0" Weight: 258lbs. 0.0oz. [id number]; 34.00 BMI Method:Stated General Appearance: WD/WN, Mild Distress HEENT: PERRL/EOMI, Normal ENT Inspection Neck: Normal Inspection; No JVD Respiratory: Accessory Muscle Use; No Crackles; Wheezing Cardiovascular: Regular Rate, Rhythm, No Edema, No Murmur Gastrointestinal: Non Tender, Soft Extremity: Normal Inspection, No Pedal Edema Neurologic/Psychiatric: Alert, No Motor/Sensory Deficits, Other (Dulled mentation, irritable) Skin: normal color, warm/dry Focused Exam Lactate Level 10/06/22 09:35: Lactic Acid Level 1.03 Lactic Acid Level Progress/Results/Core Measures Suspected Sepsis SIRS Temperature: Pulse: 109 Respiratory Rate: 25 Laboratory Tests 10/06/22 09:35: White Blood Count 10.7 Blood Pressure 167 /73 Mean: 117 10/06/22 09:35: Lactic Acid Level 1.03 Laboratory Tests 10/06/22 09:35: Creatinine 0.98, INR Comment 1.1, Platelet Count 174, Total Bilirubin 1.2H Results/Orders Lab Results Laboratory Tests Test 10/06/22 09:20 10/06/22 09:35 10/06/22 09:48 10/06/22 11:27 Range/Units Glucometer 215 H 70-110 MG/DL White Blood Count 10.7 4.3-11.0 10^3/uL Red Blood Count 5.22 4.30-5.52 10^6/uL Hemoglobin 14.9 13.3-17.7 g/dL Hematocrit 48 40-54 % Mean Corpuscular Volume 93 80-99 fL Mean Corpuscular Hemoglobin 29 25-34 pg Mean Corpuscular Hemoglobin Concent 31 L 32-36 g/dL Red Cell Distribution Width 15.7 H 10.0-14.5 % Platelet Count 174 130-400 10^3/uL Mean Platelet Volume 8.9 L 9.0-12.2 fL Immature Granulocyte % (Auto) 0 % Neutrophils (%) (Auto) 87 H 42-75 % Lymphocytes (%) (Auto) 6 L 12-44 % Monocytes (%) (Auto) 6 0-12 % Eosinophils (%) (Auto) 0 0-10 % Basophils (%) (Auto) 1 0-10 % Neutrophils # (Auto) 9.3 H 1.8-7.8 10^3/uL Lymphocytes # (Auto) 0.7 L 1.0-4.0 10^3/uL Monocytes # (Auto) 0.6 0.0-1.0 10^3/uL Eosinophils # (Auto) 0.0 0.0-0.3 10^3/uL Basophils # (Auto) 0.1 0.0-0.1 10^3/uL Immature Granulocyte # (Auto) 0.0 0.0-0.1 10^3/uL Neutrophils % (Manual) 90 % Lymphocytes % (Manual) 6 % Monocytes % (Manual) 3 % Band Neutrophils 1 % Blood Morphology Comment NORMAL Prothrombin Time 14.7 12.2-14.7 SEC INR Comment 1.1 0.8-1.4 Activated Partial Thromboplast Time 26 24-35 SEC Sodium Level 136 135-145 MMOL/L Potassium Level 4.7 3.6-5.0 MMOL/L Chloride Level 86 L 98-107 MMOL/L Carbon Dioxide Level 44 H 21-32 MMOL/L Anion Gap 6 5-14 MMOL/L Blood Urea Nitrogen 17 7-18 MG/DL Creatinine 0.98 0.60-1.30 MG/DL Estimat Glomerular Filtration Rate 88 BUN/Creatinine Ratio 17 Glucose Level 233 H 70-105 MG/DL Lactic Acid Level 1.03 0.50-2.00 MMOL/L Calcium Level 10.1 8.5-10.1 MG/DL Corrected Calcium 10.6 H 8.5-10.1 MG/DL Magnesium Level 1.9 1.6-2.4 MG/DL Total Bilirubin 1.2 H 0.1-1.0 MG/DL Aspartate Amino Transf (AST/SGOT) 10 5-34 U/L Alanine Aminotransferase (ALT/SGPT) 18 0-55 U/L Alkaline Phosphatase 159 H 40-136 U/L C-Reactive Protein High Sensitivity 38.37 H 0.00-0.50 MG/DL B-Type Natriuretic Peptide 24.4 <100.0 PG/ML Total Protein 7.9 6.4-8.2 GM/DL Albumin 3.4 3.2-4.5 GM/DL Procalcitonin 0.12 H <0.10 NG/ML Influenza Type A (RT-PCR) Not Detected Not Detecte Influenza Type B (RT-PCR) Not Detected Not Detecte SARS-CoV-2 RNA (RT-PCR) Not Detected Not Detecte Blood Gas Puncture Site RIGHT RADIAL RIGHT RADIAL Blood Gas Patient Temperature 37.9 37.0 Arterial Blood pH 7.31 *L 7.29 *L 7.37-7.43 Arterial Blood Partial Pressure CO2 98 *H 103 *H 35-45 MMHG Arterial Blood Partial Pressure O2 80 72 L 79-93 MMHG Arterial Blood HCO3 47 *H 48 *H 23-27 MMOL/L Arterial Blood Total CO2 50.1 *H 51.3 *H 21.0-31.0 MMOL/L Arterial Blood Oxygen Saturation 95 94 94-100 % Arterial Blood Base Excess 20.1 H 20.7 H -2.5-2.5 MMOL/L Kevin Test POSITIVE POSITIVE Blood Gas Ventilator Setting NO NO Blood Gas Inspired Oxygen 10 L 40% BIPAP Test 10/06/22 14:20 10/06/22 14:30 10/06/22 15:44 10/06/22 16:12 Range/Units Urine Color BROWN H Urine Clarity CLOUDY Urine pH 6.5 5-9 Urine Specific [place] 1.025 H 1.016-1.022 Urine Protein 3+ H NEGATIVE Urine Glucose (UA) 1+ H NEGATIVE Urine Ketones TRACE H NEGATIVE Urine Nitrite NEGATIVE NEGATIVE Urine Bilirubin NEGATIVE NEGATIVE Urine Urobilinogen >=8.0 < = 1.0 MG/DL Urine Leukocyte Esterase NEGATIVE NEGATIVE Urine RBC (Auto) 2+ H NEGATIVE Urine RBC 5-10 H /HPF Urine WBC RARE /HPF Urine Crystals PRESENT H /LPF Urine Amorphous Sediment FEW AURE URATES H /LPF Urine Bacteria NEGATIVE /HPF Urine Casts NONE /LPF Urine Mucus MODERATE H /LPF Urine Culture Indicated CULTURE PENDING Glucometer 219 H 259 H 225 H 70-110 MG/DL Test 10/06/22 20:26 Range/Units Glucometer 246 H 70-110 MG/DL My Orders Orders - LAURI NAVARRETE MD Cbc With Automated Diff (10/06/22:24) Comprehensive Metabolic Panel (10/06/22:24) Blood Culture (10/06/22:24) Sputum Culture (10/06/22:24) Urinalysis (10/06/22:24) Urine Culture (10/06/22:24) Protime With Inr (10/06/22:24) Partial Thromboplastin Time (10/06/22:24) Chest 1 View, Ap/Pa Only (10/06/22:24) Ed Iv/Invasive Line Start (10/06/22:24) Vital Signs Adult Sepsis Patie Q15M (10/06/22 09:24) O2 (10/06/22:24) Remove Rings In Anticipation O (10/06/22:24) Lactic Acid Analyzer (10/06/22:24) Bnp [place] (10/06/22:24) Hs C Reactive Protein (10/06/22 09:24) Procalcitonin (Pct) (10/06/22 09:24) Methylprednisolone Sod Succ (Solu-Medrol (10/06/22 09:30) Bipap (Bilevel) Set Up (10/06/22 09:29) Albuterol Inhaler (Albuterol) (10/06/22 09:29) Ondansetron Injection (Zofran Injectio (10/06/22 09:30) Magnesium (10/06/22 09:31) Manual Differential (10/06/22 09:35) Arterial Blood Gas (10/06/22 09:50) Covid 19 Inhouse Test (10/06/22 09:35) Influenza A And B By Pcr (10/06/22 09:35) Arterial Blood Draw - Obtain (10/06/22 ) Arterial Blood Gas (10/06/22 11:25) Arterial Blood Draw - Obtain (10/06/22 ) Cefepime Injection (Maxipime Injection) (10/06/22 11:45) Albuterol Pre-Mix Nebs (Rt) (Proventil (10/06/22 12:26) Albuterol/Ipra Inhalation Soln (Duoneb I (10/06/22 12:30) Svn Small Volume Nebulizer (10/06/22 12:26) Svn Small Volume Nebulizer (10/06/22 12:26) Ed Admission (Communication) (10/06/22 12:27) Ns Iv 1000 Ml (Sodium Chloride 0.9%) (10/06/22 12:30) Code/Resuscitation (10/06/22 12:29) Medications Given in ED Vital Signs/I&O 10/06/22 10/06/22 10/06/22 10/06/22 13:29 13:30 13:30 13:45 Pulse 112 118 Resp 26 B/P (MAP) 141/60 (87) Pulse Ox 92 O2 Delivery High Flow N/C High Flow N/C High Flow N/C O2 Flow Rate 15.00 10.00 10.00 10/06/22 10/06/22 10/06/22 10/06/22 14:00 14:15 14:30 14:45 Pulse 121 122 120 118 Resp 23 27 B/P (MAP) 138/51 (80) 154/80 (104) 177/66 (103) 168/68 (101) Pulse Ox 92 90 94 94 O2 Delivery High Flow N/C High Flow N/C High Flow N/C High Flow N/C O2 Flow Rate 10.00 10.00 10.00 10.00 10/06/22 10/06/22 10/06/22 10/06/22 15:00 15:23 15:35 16:08 Temp 36.6 Pulse 120 114 Resp 22 B/P (MAP) 153/79 (103) 145/62 (89) Pulse Ox 94 94 97 O2 Delivery High Flow N/C Vapotherm Vapotherm O2 Flow Rate 10.00 35.00 35.00 75.00 FiO2 75 10/06/22 10/06/22 10/06/22 10/06/22 17:00 19:00 19:01 19:10 Temp 37.0 Pulse 118 114 Resp 18 B/P (MAP) 158/64 (95) Pulse Ox 99 92 92 O2 Delivery Vapotherm Vapotherm O2 Flow Rate 35.00 35.00 FiO2 75 75 10/06/22 10/06/22 10/06/22 10/06/22 20:00 21:05 23:10 23:58 Temp 36.8 Pulse 128 Resp 20 B/P (MAP) 164/88 (113) Pulse Ox 93 90 87 93 O2 Delivery Vapotherm Vapotherm Vapotherm Vapotherm O2 Flow Rate 35.00 35.00 35.00 40.00 75.00 FiO2 75 75 75 10/07/22 01:12 Pulse Ox 92 O2 Delivery Vapotherm O2 Flow Rate 40.00 FiO2 75 Capillary Refill : Less Than 3 Seconds Blood Pressure Mean: 117 Progress Note #1: Time: 10:11 Progress Note Patient was interviewed and examined upon arrival. He was hypoxic on nasal cannula at high flow. He was very tight and wheezy on auscultation. BiPAP was initiated and albuterol was administered inline with BiPAP. Settings are 15/6, rate 18, FiO2 40%. He is stable on those settings. Patient initially adamantly refused any influenza or COVID testing. He later consented to influenza testing only and only by pharyngeal swab. He later consented to both COVID and i nfluenza testing by pharyngeal swab. Lab is making adjustments to the testing order. Septic work-up is being pursued. ABG revealed significant hypercarbia making BiPAP necessary. Progress Note #2: Time: 12:46 Progress Note Patient's repeat ABG showed no improvement. We are adjusting BiPAP settings and starting an hour-long nebulizer treatment. There is increase in pulmonary infiltrate on chest x-ray. Cause of this is uncertain but may be related to pneumonia. Other chronic condition could be coexisting. Cefepime was started for initial antibiotic therapy. Family comments that a grandchild recently was admitted to the hospital with mycoplasma pneumonia. I have suggested treating with azithromycin for mycoplasma in check out to Dr. Pereira. Patient has a DNR which will be honored during this admission. Diagnostic Imaging Diagonstic Imaging: Xray Plain Films/CT/US/NM/MRI: chest Comments NAME: LELE GAMBLE [facility] REC#: [id number] PT STATUS: REG ER : 1960 PHYSICIAN: LAURI NAVARRETE MD ADMIT DATE: 10/06/22/ER Draft Date of Exam:10/06/22 CHEST 1 VIEW, AP/PA ONLY CLINICAL INDICATION: Patient with shortness of air, hypoxia. EXAM: Portable chest x-ray upright view. COMPARISON: Chest x-ray dated 10/05/2022. FINDINGS: There is interval slight progression of diffuse patchy infiltrates involving both lungs. There is no pleural effusion or pneumothorax. Pulmonary vasculature and cardiac silhouette within normal limits. There are degenerative spurs involving the spine. IMPRESSION: There is interval slight progression of diffuse bilateral lung infiltrates. Dictated on workstation # [id number] Dict: 10/06/22 1007 Trans: 10/06/22 1011 [id number] Interpreted by: SUSHILA WALKER MD Departure Communication (Admissions) Time/Spoke to Admitting Phy: 12:25 Dr. Pereira Impression Primary Impression: Acute on chronic respiratory failure with hypoxemia Additional Impressions: Hypercapnia COPD exacerbation Altered mental status Qualified Codes: R41.82 - Altered mental status, unspecified Disposition: ADMITTED INPATIENT Condition: Improved Admissions Decision to Admit Reason: Admit from ER (General) Decision to Admit/Date: Oct 06, 2022 Time/Decision to Admit Time: 12:25 Departure-Patient Inst. Referrals: [facility] (PCP/Family) Primary Care Physician LAURI NAVARRETE MD Oct 06, 2022 10:14
[2022-10-06 11:33] LABS: ABG BASE EXCESS 20.7 MMOL/L (-2.5-2.5); ABG OXYGEN SATURATION 94 % (94-100); ABG PO2 72 MMHG (79-93)
[2022-10-06 11:37] LABS: ABG PCO2 103 MMHG (35-45); ABG PH 7.29 (7.37-7.43); ABG TCO2 51.3 MMOL/L (21.0-31.0)
[2022-10-06 11:38] LABS: ALLENS TEST POSITIVE; INSPIRED O2 40% BIPAP; VENTILATOR NO
[2022-10-06] MEDS ORDERED: CEFEPIME INJECTION 2,000 MG in NS (IVPB) 50 ML IV ONE (11:45)
[2022-10-06] MEDS ORDERED: RT-ALBUTEROL SULF 2.5 MG/3 ML PRE-MIX VIAL INH STA (12:26)
[2022-10-06] MEDS ORDERED: RT-ALBUTEROL/IPRATROPIUM 3 ML (DUONEB) VIAL INH ONE (12:30)
[2022-10-06] MEDS ORDERED: NS IV 1000 ML 1,000 ML IV SCH (12:30)
[2022-10-06] MEDS ORDERED: AZITHROMYCIN INJECTION 500 MG in NS (IVPB) 250 ML IV NR (13:00)
[2022-10-06 14:27] LABS: CLARITY,URINE CLOUDY; COLOR,URINE BROWN; GLUCOSE, URINE (UA) 1+ (NEGATIVE); KETONES,URINE TRACE (NEGATIVE); LEUKOCYTE ESTERASE ,URINE NEGATIVE (NEGATIVE); NITRITE,URINE NEGATIVE (NEGATIVE); PH,URINE 6.5 (5-9); PROTEIN,URINE 3+ (NEGATIVE)
[2022-10-06 14:39] LABS: AMORPHOUS SEDIMENT,UR FEW AMOR URATES /LPF; BACTERIA,URINE NEGATIVE /HPF; BILIRUBIN,URINE NEGATIVE (NEGATIVE); WBC,URINE RARE /HPF
[2022-10-06] MEDS: RT-ALBUTEROL/IPRATROPIUM 3 ML (DUONEB) VIAL IH SCH ×2 (15:23→19:00)
[2022-10-06] MEDS: inSUlin ASPART (NovoLOG) 1 UNIT/0.01 ML (CHARGE PER UNIT) SC SCH ×2 (16:47→21:39)
[2022-10-06] MEDS: RT-ALBUTEROL SULF 2.5 MG/3 ML PRE-MIX VIAL INH SCH ×2 (16:49→21:45)
[2022-10-06] MEDS: methylPREDNISolone 125 MG (Solu-MEDROL) VIAL IV SCH ×2 (17:28→23:53)
[2022-10-06] MEDS: CEFEPIME INJECTION 1,000 MG in NS (IVPB) 50 ML IV SCH ×2 (17:28→23:53)
[2022-10-06] MEDS ORDERED: NITROGLYCERIN 0.4 MG SL TABS BTL 25'S SL PRN (21:45)
[2022-10-06] MEDS ORDERED: PHENYTOIN 100 MG (DILANTIN) CAP PO SCH (21:45)
[2022-10-06] MEDS ORDERED: LORazepam 0.5 MG (ATIVAN) TABLET PO PRN (22:00)
[2022-10-06] MEDS ORDERED: meTOprolol TARTRATE 25 MG (LOPRESSOR) TABLET ONE (22:13)
[2022-10-06] MEDS ORDERED: LORazepam 0.5 MG (ATIVAN) TABLET ONE (22:13)
[2022-10-07] MEDS: RT-ALBUTEROL SULF 2.5 MG/3 ML PRE-MIX VIAL INH SCH ×4 (00:55→12:36)
[2022-10-07] MEDS: RT-ALBUTEROL/IPRATROPIUM 3 ML (DUONEB) VIAL IH SCH ×4 (00:55→10:43)
[2022-10-07 03:59] VITALS: BP 175/81
[2022-10-07] MEDS ORDERED: ISOSORBIDE MONONITRATE 60 MG (IMDUR) TAB PO SCH (06:30)
[2022-10-07] MEDS: methylPREDNISolone 125 MG (Solu-MEDROL) VIAL IV SCH (06:54)
[2022-10-07] MEDS: inSUlin ASPART (NovoLOG) 1 UNIT/0.01 ML (CHARGE PER UNIT) SC SCH (06:54)
[2022-10-07] MEDS: CEFEPIME INJECTION 1,000 MG in NS (IVPB) 50 ML IV SCH (06:54)
[2022-10-07] MEDS ORDERED: FUROSEMIDE 40 MG (LASIX) TAB PO SCH (07:00)
[2022-10-07] MEDS ORDERED: PANTOPRAZOLE 20 MG TABLET (PROTONIX) PO SCH (07:00)
[2022-10-07] MEDS ORDERED: RT--FLUTICASONE/SALMETEROL 232-14 (AIRDUO RespiCLICK) IH SCH (08:00)
[2022-10-07] MEDS ORDERED: UMECLIDINIUM BROMIDE (INCRUSE ELLIPTA) 7'S IH SCH (08:00)
[2022-10-07] MEDS ORDERED: LOSARTAN 50 MG (COZAAR) TAB PO SCH (09:00)
[2022-10-07] MEDS ORDERED: CLOPIDOGREL 75 MG (PLAVIX) TABLET PO SCH (09:00)
[2022-10-07] MEDS ORDERED: ENOXAPARIN 40 MG/0.4 ML (LOVENOX) SYR SC SCH (09:00)
[2022-10-07] MEDS ORDERED: ROFLUMILAST 500 MCG TAB (DALIRESP) PO SCH (09:00)
[2022-10-07] MEDS ORDERED: AZITHROMYCIN 250 MG TAB (ZITHROMAX) PO SCH (09:00)
[2022-10-07] MEDS ORDERED: ASPIRIN E.C. 81 MG (ECOTRIN) TAB PO SCH (09:00)
[2022-10-07] MEDS ORDERED: GABAPENTIN 600 MG (NEURONTIN) TAB PO SCH (09:00)
[2022-10-07 09:18] VITALS: BP 174/91
[2022-10-07 09:24] LABS: ABG OXYGEN SATURATION 95 % (94-100); ABG PO2 83 MMHG (79-93)
[2022-10-07 09:31] LABS: ABG PH 7.12 (7.37-7.43); ALLENS TEST YES-POS; INSPIRED O2 75%; VENTILATOR NO
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
[2022-10-07] MEDS ORDERED: FUROSEMIDE 40 MG/4 ML INJ (LASIX) ONE (09:42)
[2022-10-07] MEDS ORDERED: VANCOMYCIN 1000 MG/VIAL IV SCH (09:45)
[2022-10-07] MEDS ORDERED: FUROSEMIDE 40 MG/4 ML INJ (LASIX) IVP ONE ×2 (09:45)
[2022-10-07] MEDS ORDERED: methylPREDNISolone 125 MG (Solu-MEDROL) VIAL IVP SCH (09:45)
[2022-10-07] MEDS ORDERED: AZITHROMYCIN INJECTION 250 MG in NS (IVPB) 250 ML IV SCH (09:45)
--- NOTE | 2022-10-07 10:15 | Diagnostic Imaging Report ---
EXAMINATION: Chest 1 view HISTORY: Respiratory failure. COMPARISON: 10/06/2022. FINDINGS: The lung volumes are normal. Patchy opacities are seen throughout the lungs, improved since the prior exam. No large pleural effusion or pneumothorax is seen. The cardiomediastinal silhouette is stable in size. No acute osseous abnormality is seen. IMPRESSION: 1. Improving patchy opacities throughout the lungs, which may represent improving edema and/or infection. Dictated by: Dictated on workstation # [id number]
[2022-10-07 10:44] VITALS: BP 164/73
[2022-10-07 10:57] LABS: ABG OXYGEN SATURATION 97 % (94-100); ABG PO2 92 MMHG (79-93)
[2022-10-07] MEDS ORDERED: VANCOMYCIN 2000 MG/NS 500 ML IVPB IV NR ×2 (11:00)
[2022-10-07 11:01] LABS: ABG PH 7.14 (7.37-7.43)
[2022-10-07 11:02] LABS: ALLENS TEST POSITIVE; INSPIRED O2 60% BIPAP; PATIENT TEMP 36.7; VENTILATOR NO
[2022-10-07 12:00] VITALS: BP 159/71
[2022-10-07 12:36] VITALS: BP_SYST 156; BP_SYST 164; BP_DIAS 68; BP_DIAS 73
[2022-10-07] MEDS ORDERED: PROMETHAZINE INJ 25 MG/ML (PHENERGAN) AMP IVP PRN (13:15)
[2022-10-07] MEDS ORDERED: RT-ALBUTEROL/IPRATROPIUM 3 ML (DUONEB) VIAL INH PRN (13:15)
[2022-10-07] MEDS ORDERED: ACETAMINOPHEN 650 MG SUPP (TYLENOL) PR PRN (13:15)
[2022-10-07] MEDS ORDERED: ARTIFICAL TEARS 0.4 ML UNIT DOSE (REFRESH PLUS) OU PRN (13:15)
[2022-10-07] MEDS ORDERED: NS IV 1000 ML 1,000 ML IV PRN (13:15)
[2022-10-07] MEDS ORDERED: BISACODYL 10 MG SUPP (DULCOLAX) PR PRN (13:15)
[2022-10-07] MEDS ORDERED: GLYCOPYRROLATE 0.2 MG/ML (ROBINUL) 2 ML VIAL IV PRN (13:15)
[2022-10-07] MEDS: morphine INJ 4 MG/ML 1 ML (VIAL/SYRINGE) IV PRN ×2 (13:58→15:57)
[2022-10-07] MEDS: LORazepam INJ 2 MG/ML (ATIVAN) VIAL IVP PRN ×2 (13:58→15:57)
--- NOTE | 2022-10-07 16:44 | Discharge Summary ---
Discharge Summary Hospital Course Was the Problem List Reviewed?: Yes Problems/Dx: (1) Respiratory failure Status: Acute Qualifiers: Qualified Codes: J96.22 - Acute and chronic respiratory failure with hypercapnia (2) Altered mental status Status: Acute Qualifiers: Qualified Codes: R41.82 - Altered mental status, unspecified (3) Hypercapnemia Status: Acute (4) End stage chronic obstructive pulmonary disease Status: Chronic (5) Chronic heart failure with preserved ejection fraction (HFpEF) Status: Chronic (6) Pulmonary hypertension Status: Chronic (7) Acute on chronic respiratory failure with hypoxemia Status: Acute Hospital Course Date of Admission: Oct 06, 2022 at 12:28 Admission Diagnosis : Family Physician/Provider: [place] [place] Date of Discharge: 10/07/22 Discharge Diagnosis: [ ] Hospital Course: Short course after admitted for acute on chronic resp failure with hypercapnia and AMS. BIPAP initiated but CO2 continued to rise and then decision was made to place him on comfort care and he with family at bedside Labs and Pending Lab Test: Laboratory Tests 10/06/22 20:26: Glucometer 246H 10/07/22 06:49: Glucometer 197H 10/07/22 09:05: Blood Gas Puncture Site RT RAD, Blood Gas Patient Temperature 37.0, Arterial Blood pH 7.12*L, Arterial Blood Partial Pressure CO2 , Arterial Blood Partial Pressure O2 83, Arterial Blood HCO3 , Arterial Blood Total CO2 , Arterial Blood Oxygen Saturation 95, Arterial Blood Base Excess , Kevin Test YES-POS, Blood Gas Ventilator Setting NO, Blood Gas Inspired Oxygen 75% 10/07/22 10:50: Blood Gas Puncture Site LEFT RADIAL, Blood Gas Patient Temperature 36.7, Arterial Blood pH 7.14*L, Arterial Blood Partial Pressure CO2 , Arterial Blood Partial Pressure O2 92, Arterial Blood HCO3 , Arterial Blood Total CO2 , Arterial Blood Oxygen Saturation 97, Arterial Blood Base Excess , Kevin Test POSITIVE, Blood Gas Ventilator Setting NO, Blood Gas Inspired Oxygen 60% BIPAP 10/07/22 10:53: Glucometer 218H Microbiology 10/06/22 Urine Culture - Final, Complete NO GROWTH 10/06/22 Gram Stain - Final, Resulted 10/06/22 Sputum Culture - Preliminary, Resulted Haemophilus influenza See Comments Usual upper respiratory sujit 10/06/22 Blood Culture - Preliminary, Resulted Probable Coag Negative Staph Home Meds Active Prednisone 20 Mg Tab 40 Mg PO DAILY 4 Days Reported Omeprazole 20 Mg Capsule.dr 20 Mg PO BID Losartan Potassium 25 Mg Tablet 50 Mg PO DAILY TAKES 2 (25MG) TABS Trelegy Ellipta 200-62.5-25 (Fluticasone/Umeclidin/Vilanter) 200-62.5 Blst.w.dev 1 Puff INH DAILY Daliresp (Roflumilast) 500 Mcg Tablet 500 Mcg PO DAILY Furosemide 80 Mg Tablet 80 Mg PO DAILY Aspirin EC (Aspirin) 81 Mg Tablet.dr 81 Mg PO DAILY Albuterol Sulfate 2.5 Mg/3 Ml (0.083 %) Vial.neb 3 Ml NEB Q4H Levemir Flextouch (Insulin Detemir) 100 Unit/Ml (3 Ml) Insuln.pen 30 Units SC HS Isosorbide Mononitrate ER (Isosorbide Mononitrate) 120 Mg Tab.er.24h 120 Mg PO DAILY Gabapentin 600 Mg Tablet 600 Mg PO BID Rosuvastatin Calcium 20 Mg Tablet 20 Mg PO HS Nitroglycerin 0.4 Mg Tab.subl 0.4 Mg SL UD PRN Metoprolol Succinate 25 Mg Tab.er.24h 25 Mg PO BID Clopidogrel (Clopidogrel Bisulfate) 75 Mg Tablet 75 Mg PO DAILY Ventolin Hfa (Albuterol Sulfate) 18 Gm Hfa.aer.ad 1 Puff INH Q4H PRN Phenytoin Sodium Extended 100 Mg Capsule 200 Mg PO BID TAKE 2 (100MG) TABS Assessment/Pt Instructions Discharge Planning: <30 minutes discharge planning Discharge Physical Examination Vital Signs Vital Signs Date Time Temp Pulse Resp B/P (MAP) Pulse Ox O2 Delivery O2 Flow Rate FiO2 10/07/22 12:36 111 16 90 60.00 10/07/22 12:00 37.0 159/71 (100) NIV Bilevel 10/07/22 09:00 60 Allergies: Coded Allergies: diclofenac (Verified Allergy, Intermediate, SWELLING, 06/15/17) Discharge Summary Date of Admission Oct 06, 2022 at 12:28 Date of Discharge Comfort Measures/ End of Life Care: Comfort Measures STEW FRANCISCO DO Oct 07, 2022 16:44
[2022-10-07] MEDS ORDERED: ROSUVASTATIN 20 MG (CRESTOR) TABLET PO SCH (21:00)
[2022-10-07] MEDS ORDERED: VANCOMYCIN 1500 MG/NS 500 ML IVPB IV SCH ×2 (23:00)
[2022-10-08] MEDS ORDERED: predniSONE 20 MG TAB PO SCH (07:00)
[2022-10-08] MEDS ORDERED: TROUGH ORDER-PHARMACY XX NR (22:00)
== END 2022-10-07 20:52 | disposition expired | DRG 189 ==
LOC: EDUNIT# 09:12 → ER 09:15 → CSD 12:28 → 4TH 10-07 13:00
PROVIDERS: ADMIT Family Medicine; ATTEND Internal Medicine
PROC: 5A09357 Assistance with Respiratory Ventilation, Less than 24 Consecutive Hours, Continuous Positive Airway Pressure (ICD-10-PCS; principal; 2022-10-06)
PROC: 5A0935A Assistance with Respiratory Ventilation, Less than 24 Consecutive Hours, High Flow/Velocity Cannula (ICD-10-PCS; 2022-10-06)
DX: J96.21 Acute and chronic respiratory failure with hypoxia (principal); J18.9 Pneumonia, unspecified organism; J44.1 Chronic obstructive pulmonary disease with (acute) exacerbation; I50.42 Chronic combined systolic (congestive) and diastolic (congestive) heart failure; J44.0 Chronic obstructive pulmonary disease with (acute) lower respiratory infection; J96.22 Acute and chronic respiratory failure with hypercapnia; I27.20 Pulmonary hypertension, unspecified; Z51.5 Encounter for palliative care; Z66 Do not resuscitate; Z87.891 Personal history of nicotine dependence; G47.33 Obstructive sleep apnea (adult) (pediatric); G40.909 Epilepsy, unspecified, not intractable, without status epilepticus; I25.10 Atherosclerotic heart disease of native coronary artery without angina pectoris; E11.51 Type 2 diabetes mellitus with diabetic peripheral angiopathy without gangrene; Z95.5 Presence of coronary angioplasty implant and graft; E78.2 Mixed hyperlipidemia; E66.01 Morbid (severe) obesity due to excess calories; I11.0 Hypertensive heart disease with heart failure; Z79.82 Long term (current) use of aspirin; Z79.4 Long term (current) use of insulin; Z79.899 Other long term (current) drug therapy; Z87.820 Personal history of traumatic brain injury; K21.9 Gastro-esophageal reflux disease without esophagitis; M19.90 Unspecified osteoarthritis, unspecified site; G89.29 Other chronic pain; M54.9 Dorsalgia, unspecified; F41.9 Anxiety disorder, unspecified; Z20.822 Contact with and (suspected) exposure to COVID-19; Z68.37 Body mass index [BMI] 37.0-37.9, adult; Z79.02 Long term (current) use of antithrombotics/antiplatelets; I25.2 Old myocardial infarction
CPT/HCPCS: 36415; 36600; 71045; 80053; 81000; 82805; 82947; 83605; 83735; 83880; 84145; 85007; 85027; 85610; 85730; 86141; 87040; 87070; 87077; 87088; 87185; 87205; 87636; 94640; 94660